=== PATIENT | female | born 1955 | race American Indian/Alaskan Native ===

== ENCOUNTER 2020-09-01 20:57 | Inpatient (IN) | payer MEDICAID, OTHER ==
[2020-09-01 22:03] LABS: Hematocrit 25.6 % (30.3-42.9); Hemoglobin 7.9 gm/dl (10.1-14.3); Mean Corpuscular HGB Conc 31 % (30-34); Mean Corpuscular Volume 75 fl (79-97); Platelet Count 113 K/mm3 (140-440); Red Blood Count 3.42 M/mm3 (3.65-5.03)
--- NOTE | 2020-09-01 22:04 | Emergency Department Report ---
ED N/V/D HPI - General Chief complaint: Nausea/Vomiting/Diarrhea Stated complaint: WEAKNESS DIARRHEA Time Seen by Provider: 09/01/20 21:51 Source: patient Mode of arrival: Stretcher Limitations: Physical Limitation - History of Present Illness Initial comments: 64-year-old female presents to the hospital complaints of diarrhea for 3 to 4 days. She apparently has had several episodes of hypoglycemia today and EMS came to the home 4 times a day for low glucose. She was given D50 then refused to come to the hospital. Patient complains of swelling to lower legs x1 week, diarrhea for 3 to 4 days, and some mild shortness of breath. She received horacio matthew positive for Covid during recent [facility] admission and complains of some mild shortness of breath. No reports of fever or abdominal pain. Patient presents this evening with a normal glucose but she is hypothermic. Glucose was in the 80s upon EMS arrival and she did not receive any D50 prior to transport this evening. Patient denies currently being on antibiotics. Patient presents to the hospital recent discharge paperwork from [facility]. She was admitted on August 24 with diagnosis of symptomatic anemia, anemia secondary to acute blood loss, atherosclerosis PVD with ulceration, type 2 diabetes, and acute kidney injury. Initial hemoglobin was 4.5/hematocrit 15. At that time patient also complained of abdominal pain and swelling to bilateral legs. Patient had admission BUN/creatinine of 46 and 2.26 with a potassium of 5.7 bicarb of 14, BNP 4205. Abdominal series with chest x-ray was positive for prominent interstitial opacities reflect edema versus pneumonitis with a small right pleural effusion and nonobstructive bowel gas pattern without free air. Is also noted on the medical record the patient was Covid positive and was noted to have gram-positive cocci in blood and also had echocardiogram complete with and without contrast during her admission. Only admission HPI and nurse handoff to report from [facility] available for review. Discharge summary is not available. - Related Data Home Medications Medication Instructions Recorded Confirmed Last Taken Aspirin [[place] Aspirin] 81 mg PO DAILY 02/14/14 02/22/14 02/14/14 11:00 Ferrous Sulfate [Feosol 325mg] 325 mg PO DAILY 02/14/14 02/22/14 02/14/14 11:00 Sertraline [Zoloft] 50 mg PO DAILY 02/14/14 02/22/14 02/14/14 11:00 amLODIPine 5 mg PO DAILY 02/14/14 02/22/14 02/14/14 11:00 hydroCHLOROthiazide 25 mg PO DAILY 02/14/14 02/22/14 02/14/14 11:00 [Hydrochlorothiazide] lisinopriL [Zestril TAB] 10 mg PO DAILY 02/14/14 02/22/14 02/14/14 11:00 Insulin NPH Hum/Reg Insulin Hm 100 units SQ BID 02/22/14 02/23/14 Unknown [Humulin 70-30 Vial] Insulin Regular, Human [HumuLIN R] 7 unit SQ AC 02/22/14 02/23/14 Unknown Allergies Allergy/AdvReac Type Severity Reaction Status Date / Time No Known Allergies Allergy Unverified 02/14/14 19:23 ED Review of Systems ROS: Stated complaint: WEAKNESS DIARRHEA Other details as noted in HPI Comment: All other systems reviewed and negative ED Past Medical Hx - Past Medical History Previous Medical History?: Yes Hx Hypertension: Yes (date unknown) Hx Congestive Heart Failure: No Hx Diabetes: Yes Hx Renal Disease: No Hx Asthma: No Hx COPD: No - Surgical History Past Surgical History?: Yes Additional Surgical History: bilateral BKA - Social History Smoking Status: Current Every Day Smoker Substance Use Type: None - Medications Home Medications: Home Medications Medication Instructions Recorded Confirmed Last Taken Type Aspirin [[place] Aspirin] 81 mg PO DAILY 02/14/14 02/22/14 02/14/14 11:00 History Ferrous Sulfate [Feosol 325mg] 325 mg PO DAILY 02/14/14 02/22/14 02/14/14 11:00 History Sertraline [Zoloft] 50 mg PO DAILY 02/14/14 02/22/14 02/14/14 11:00 History amLODIPine 5 mg PO DAILY 02/14/14 02/22/14 02/14/14 11:00 History hydroCHLOROthiazide 25 mg PO DAILY 02/14/14 02/22/14 02/14/14 11:00 History [Hydrochlorothiazide] lisinopriL [Zestril TAB] 10 mg PO DAILY 02/14/14 02/22/14 02/14/14 11:00 History Insulin NPH Hum/Reg Insulin Hm 100 units SQ BID 02/22/14 02/23/14 Unknown History [Humulin 70-30 Vial] Insulin Regular, Human [HumuLIN R] 7 unit SQ AC 02/22/14 02/23/14 Unknown History ED Physical Exam - General Limitations: Physical Limitation - Other Other exam information: General: No acute distress Head: Atraumatic Eyes: normal appearance ENT: Moist mucous membranes Neck: Normal appearance, no midline tenderness Chest: Clear to auscultation bilaterally, patient is able to lie flat in the bed without shortness of CV: Regular rate and rhythm Abdomen: Soft, normal bowel sounds, nontender, nondistended, no rebound or guarding Back: Normal inspection Extremity: Bilateral BKA Neuro: Alert O x 3, no facial asymmetry, speech clear, no gross motor sensory deficit Psych: Appropriate behavior ED Course Vital Signs 09/01/20 09/01/20 09/01/20 21:20 21:26 21:28 Temperature Pulse Rate 51 L 51 L Respiratory 17 16 Rate Blood Pressure 84/51 84/51 Blood Pressure 121/56 [Left] O2 Sat by Pulse 96 Oximetry 09/01/20 09/01/20 09/01/20 21:30 21:36 21:37 Temperature 92.8 F L Pulse Rate 51 L 52 L Respiratory 12 17 Rate Blood Pressure 121/56 69/39 Blood Pressure [Left] O2 Sat by Pulse 95 96 Oximetry 09/01/20 09/01/20 09/01/20 21:40 21:46 21:50 Temperature Pulse Rate 51 L 48 L 48 L Respiratory 11 L 23 26 H Rate Blood Pressure 69/39 69/39 69/39 Blood Pressure [Left] O2 Sat by Pulse 94 97 97 Oximetry 09/01/20 09/01/20 09/01/20 21:56 22:00 22:06 Temperature Pulse Rate 48 L 48 L 50 L Respiratory 31 H 22 16 Rate Blood Pressure 74/42 Blood Pressure [Left] O2 Sat by Pulse 98 98 97 Oximetry 09/01/20 09/01/20 09/01/20 22:10 22:16 22:30 Temperature Pulse Rate 48 L 48 L 46 L Respiratory 12 29 H 27 H Rate Blood Pressure 46/25 110/61 122/60 Blood Pressure [Left] O2 Sat by Pulse 95 96 95 Oximetry 09/01/20 09/01/20 09/01/20 22:31 22:46 23:00 Temperature 92.8 F L Pulse Rate 46 L 46 L Respiratory 27 H 27 H Rate Blood Pressure 93/49 93/49 Blood Pressure [Left] O2 Sat by Pulse 96 96 Oximetry 09/01/20 09/01/20 09/01/20 23:15 23:30 23:46 Temperature Pulse Rate 47 L 49 L 47 L Respiratory 30 H 17 28 H Rate Blood Pressure 104/51 93/49 53/30 Blood Pressure [Left] O2 Sat by Pulse 95 95 97 Oximetry 09/02/20 09/02/20 09/02/20 00:00 00:16 00:25 Temperature 93.2 F L Pulse Rate 47 L 48 L Respiratory 24 13 Rate Blood Pressure 53/30 53/30 Blood Pressure [Left] O2 Sat by Pulse 97 95 Oximetry 09/02/20 09/02/20 09/02/20 00:27 00:30 00:45 Temperature Pulse Rate 48 L 48 L 45 L Respiratory 16 13 12 Rate Blood Pressure 116/61 115/57 Blood Pressure 116/61 [Left] O2 Sat by Pulse 97 96 94 Oximetry 09/02/20 09/02/20 09/02/20 01:00 01:16 01:30 Temperature Pulse Rate 45 L 47 L 47 L Respiratory 24 27 H 25 H Rate Blood Pressure 115/57 118/59 118/59 Blood Pressure [Left] O2 Sat by Pulse 94 95 100 Oximetry 09/02/20 09/02/20 09/02/20 01:46 02:00 02:16 Temperature Pulse Rate 46 L 49 L 50 L Respiratory 12 25 H 25 H Rate Blood Pressure 79/49 79/49 123/53 Blood Pressure [Left] O2 Sat by Pulse 97 98 94 Oximetry 09/02/20 09/02/20 09/02/20 02:30 02:45 03:00 Temperature Pulse Rate 48 L 50 L 51 L Respiratory 27 H 12 11 L Rate Blood Pressure 130/43 122/67 122/67 Blood Pressure [Left] O2 Sat by Pulse 98 97 95 Oximetry 09/02/20 09/02/20 09/02/20 03:16 03:30 03:46 Temperature Pulse Rate 53 L 53 L 52 L Respiratory 27 H 28 H 29 H Rate Blood Pressure 123/70 123/70 123/66 Blood Pressure [Left] O2 Sat by Pulse 97 95 Oximetry 09/02/20 09/02/20 03:47 05:53 Temperature 94.8 F L Pulse Rate Respiratory 16 Rate Blood Pressure Blood Pressure [Left] O2 Sat by Pulse Oximetry - Reevaluation(s) Reevaluation #1: 09/02/20 00:31 I informed Nurse to recheck low blood pressure readings for accuracy prior to adding them to the medical record since they are consistently documented as significantly low then upon repeat, blood pressure is normal - EJ/Peripheral Line Neck R Time Out Performed: Yes Indications: nurses unable to establis Skin Cleansed in Sterile Fashion: Yes Size: 18 Dressing Placed: Tegaderm, tape Patient Tolerated Procedure: well, no complications ED Medical Decision Making - Lab Data Result diagrams: 09/01/20 21:40 09/01/20 21:55 Lab Results 09/01/20 09/01/20 09/01/20 Range/Units 21:40 21:40 21:55 WBC 6.9 (4.5-11.0) K/mm3 RBC 3.42 L (3.65-5.03) M/mm3 Hgb 7.9 L (10.1-14.3) gm/dl Hct 25.6 L (30.3-42.9) % MCV 75 L (79-97) fl MCH 23 L (28-32) pg MCHC 31 (30-34) % RDW 35.7 H (13.2-15.2) % Plt Count 113 L (140-440) K/mm3 Add Manual Diff Complete Total Counted 100 Seg Neuts % (Manual) 92.0 H (40.0-70.0) % Band Neutrophils % 0 % Lymphocytes % (Manual) 5.0 L (13.4-35.0) % Reactive Lymphs % (Man) 0 % Monocytes % (Manual) 3.0 (0.0-7.3) % Eosinophils % (Manual) 0 (0.0-4.3) % Basophils % (Manual) 0 (0.0-1.8) % Metamyelocytes % 0 % Myelocytes % 0 % Promyelocytes % 0 % Blast Cells % 0 % Nucleated RBC % Not Reportable Seg Neutrophils # Man 6.3 (1.8-7.7) K/mm3 Band Neutrophils # 0.0 K/mm3 Lymphocytes # (Manual) 0.3 L (1.2-5.4) K/mm3 Abs React Lymphs (Man) 0.0 K/mm3 Monocytes # (Manual) 0.2 (0.0-0.8) K/mm3 Eosinophils # (Manual) 0.0 (0.0-0.4) K/mm3 Basophils # (Manual) 0.0 (0.0-0.1) K/mm3 Metamyelocytes # 0.0 K/mm3 Myelocytes # 0.0 K/mm3 Promyelocytes # 0.0 K/mm3 Blast Cells # 0.0 K/mm3 WBC Morphology Not Reportable Hypersegmented Neuts Not Reportable Hyposegmented Neuts Not Reportable Hypogranular Neuts Not Reportable Smudge Cells Not Reportable Toxic Granulation Not Reportable Toxic Vacuolation Not Reportable Dohle Bodies Not Reportable Pelger-Huet Anomaly Not Reportable Ignacia Rods Not Reportable Platelet Estimate Consistent w auto Clumped Platelets Not Reportable Plt Clumps, EDTA Not Reportable Large Platelets Not Reportable Giant Platelets Not Reportable Platelet Satelliting Not Reportable Plt Morphology Comment Not Reportable RBC Morphology Not Reportable Dimorphic RBCs Not Reportable Polychromasia Not Reportable Hypochromasia 1+ Poikilocytosis Not Reportable Anisocytosis 2+ Microcytosis Not Reportable Macrocytosis Not Reportable Spherocytes Not Reportable Pappenheimer Bodies Not Reportable Sickle Cells Not Reportable Target Cells Rare Tear Drop Cells Few Ovalocytes Not Reportable Helmet Cells Not Reportable [place] Bodies Not Reportable Leonardo Rings Not Reportable Jackson Cells Not Reportable Bite Cells Not Reportable Crenated Cell Not Reportable Elliptocytes Few Acanthocytes (Spur) Not Reportable Rouleaux Not Reportable Hemoglobin C Crystals Not Reportable Schistocytes Not Reportable Malaria parasites Not Reportable Molina Bodies Not Reportable Hem Pathologist Commnt No D-Dimer 1076.18 H (0-234) ng/mlDDU Sodium 144 (137-145) mmol/L Potassium 5.1 H (3.6-5.0) mmol/L Chloride 117.5 H (98-107) mmol/L Carbon Dioxide 12 L (22-30) mmol/L Anion Gap 20 mmol/L BUN 51 H (7-17) mg/dL Creatinine 2.1 H (0.6-1.2) mg/dL Estimated GFR 29 ml/min BUN/Creatinine Ratio 24 % Glucose 69 (65-100) mg/dL POC Glucose (70-105) mg/dL Lactic Acid (0.7-2.0) mmol/L Calcium 7.8 L (8.4-10.2) mg/dL Ferritin (10.0-200.0) ng/mL Total Bilirubin 0.20 (0.1-1.2) mg/dL AST 59 H (5-40) units/L ALT 28 (7-56) units/L Alkaline Phosphatase 242 H (35-129) units/L Lactate Dehydrogenase (91-180) units/L C-Reactive Protein (0.00-1.30) mg/dL NT-Pro-B Natriuret Pep (0-900) pg/mL Total Protein 5.3 L (6.3-8.2) g/dL Albumin 2.5 L (3.9-5) g/dL Albumin/Globulin Ratio 0.9 % 09/01/20 09/01/20 09/01/20 Range/Units 21:55 21:55 21:55 WBC (4.5-11.0) K/mm3 RBC (3.65-5.03) M/mm3 Hgb (10.1-14.3) gm/dl Hct (30.3-42.9) % MCV (79-97) fl MCH (28-32) pg MCHC (30-34) % RDW (13.2-15.2) % Plt Count (140-440) K/mm3 Add Manual Diff Total Counted Seg Neuts % (Manual) (40.0-70.0) % Band Neutrophils % % Lymphocytes % (Manual) (13.4-35.0) % Reactive Lymphs % (Man) % Monocytes % (Manual) (0.0-7.3) % Eosinophils % (Manual) (0.0-4.3) % Basophils % (Manual) (0.0-1.8) % Metamyelocytes % % Myelocytes % % Promyelocytes % % Blast Cells % % Nucleated RBC % Seg Neutrophils # Man (1.8-7.7) K/mm3 Band Neutrophils # K/mm3 Lymphocytes # (Manual) (1.2-5.4) K/mm3 Abs React Lymphs (Man) K/mm3 Monocytes # (Manual) (0.0-0.8) K/mm3 Eosinophils # (Manual) (0.0-0.4) K/mm3 Basophils # (Manual) (0.0-0.1) K/mm3 Metamyelocytes # K/mm3 Myelocytes # K/mm3 Promyelocytes # K/mm3 Blast Cells # K/mm3 WBC Morphology Hypersegmented Neuts Hyposegmented Neuts Hypogranular Neuts Smudge Cells Toxic Granulation Toxic Vacuolation Dohle Bodies Pelger-Huet Anomaly Ignacia Rods Platelet Estimate Clumped Platelets Plt Clumps, EDTA Large Platelets Giant Platelets Platelet Satelliting Plt Morphology Comment RBC Morphology Dimorphic RBCs Polychromasia Hypochromasia Poikilocytosis Anisocytosis Microcytosis Macrocytosis Spherocytes Pappenheimer Bodies Sickle Cells Target Cells Tear Drop Cells Ovalocytes Helmet Cells [place] Bodies Leonardo Rings Flora Cells Bite Cells Crenated Cell Elliptocytes Acanthocytes (Spur) Rouleaux Hemoglobin C Crystals Schistocytes Malaria parasites Molina Bodies Hem Pathologist Commnt D-Dimer (0-234) ng/mlDDU Sodium (137-145) mmol/L Potassium (3.6-5.0) mmol/L Chloride (98-107) mmol/L Carbon Dioxide (22-30) mmol/L Anion Gap mmol/L BUN (7-17) mg/dL Creatinine (0.6-1.2) mg/dL Estimated GFR ml/min BUN/Creatinine Ratio % Glucose 69 (65-100) mg/dL POC Glucose (70-105) mg/dL Lactic Acid (0.7-2.0) mmol/L Calcium (8.4-10.2) mg/dL Ferritin 313.5 H (10.0-200.0) ng/mL Total Bilirubin (0.1-1.2) mg/dL AST (5-40) units/L ALT (7-56) units/L Alkaline Phosphatase (35-129) units/L Lactate Dehydrogenase 435 H (91-180) units/L C-Reactive Protein 2.30 H (0.00-1.30) mg/dL NT-Pro-B Natriuret Pep 56437 H (0-900) pg/mL Total Protein (6.3-8.2) g/dL Albumin (3.9-5) g/dL Albumin/Globulin Ratio % 09/01/20 09/01/20 Range/Units 22:12 23:27 WBC (4.5-11.0) K/mm3 RBC (3.65-5.03) M/mm3 Hgb (10.1-14.3) gm/dl Hct (30.3-42.9) % MCV (79-97) fl MCH (28-32) pg MCHC (30-34) % RDW (13.2-15.2) % Plt Count (140-440) K/mm3 Add Manual Diff Total Counted Seg Neuts % (Manual) (40.0-70.0) % Band Neutrophils % % Lymphocytes % (Manual) (13.4-35.0) % Reactive Lymphs % (Man) % Monocytes % (Manual) (0.0-7.3) % Eosinophils % (Manual) (0.0-4.3) % Basophils % (Manual) (0.0-1.8) % Metamyelocytes % % Myelocytes % % Promyelocytes % % Blast Cells % % Nucleated RBC % Seg Neutrophils # Man (1.8-7.7) K/mm3 Band Neutrophils # K/mm3 Lymphocytes # (Manual) (1.2-5.4) K/mm3 Abs React Lymphs (Man) K/mm3 Monocytes # (Manual) (0.0-0.8) K/mm3 Eosinophils # (Manual) (0.0-0.4) K/mm3 Basophils # (Manual) (0.0-0.1) K/mm3 Metamyelocytes # K/mm3 Myelocytes # K/mm3 Promyelocytes # K/mm3 Blast Cells # K/mm3 WBC Morphology Hypersegmented Neuts Hyposegmented Neuts Hypogranular Neuts Smudge Cells Toxic Granulation Toxic Vacuolation Dohle Bodies Pelger-Huet Anomaly Ignacia Rods Platelet Estimate Clumped Platelets Plt Clumps, EDTA Large Platelets Giant Platelets Platelet Satelliting Plt Morphology Comment RBC Morphology Dimorphic RBCs Polychromasia Hypochromasia Poikilocytosis Anisocytosis Microcytosis Macrocytosis Spherocytes Pappenheimer Bodies Sickle Cells Target Cells Tear Drop Cells Ovalocytes Helmet Cells [place] Bodies Leonardo Rings Jackson Cells Bite Cells Crenated Cell Elliptocytes Acanthocytes (Spur) Rouleaux Hemoglobin C Crystals Schistocytes Malaria parasites Molina Bodies Hem Pathologist Commnt D-Dimer (0-234) ng/mlDDU Sodium (137-145) mmol/L Potassium (3.6-5.0) mmol/L Chloride (98-107) mmol/L Carbon Dioxide (22-30) mmol/L Anion Gap mmol/L BUN (7-17) mg/dL Creatinine (0.6-1.2) mg/dL Estimated GFR ml/min BUN/Creatinine Ratio % Glucose (65-100) mg/dL POC Glucose 82 (70-105) mg/dL Lactic Acid 1.30 (0.7-2.0) mmol/L Calcium (8.4-10.2) mg/dL Ferritin (10.0-200.0) ng/mL Total Bilirubin (0.1-1.2) mg/dL AST (5-40) units/L ALT (7-56) units/L Alkaline Phosphatase (35-129) units/L Lactate Dehydrogenase (91-180) units/L C-Reactive Protein (0.00-1.30) mg/dL NT-Pro-B Natriuret Pep (0-900) pg/mL Total Protein (6.3-8.2) g/dL Albumin (3.9-5) g/dL Albumin/Globulin Ratio % - Radiology Data Radiology results: report reviewed CHEST 1 VIEW INDICATION / CLINICAL INFORMATION: sob, covid positive. FINDINGS: SUPPORT DEVICES: None. HEART / MEDIASTINUM: Cardiomegaly. LUNGS / PLEURA: Extensive bilateral airspace pneumonia especially within the right lower lung. Suspect small right pleural effusion. - Medical Decision Making Patient presents to the hospital with complaints of diarrhea and recurrent hypoglycemia today. EMS came to the home x4 and administered D50 but patient refused transport until this evening. She presents with initial glucose in the 80s but is hypothermic. Patient documented some significantly low blood pressure readings however when repeated without any intervention they were normal with a MAP greater than 65. EJ was placed due to difficulty achieving peripheral line by RN after multiple attempts. Every 1 hour blood glucose checks requested. 30 mL/kg normal saline bolus ordered. Once again chest x-ray reveals bilateral opacities which seems consistent with coronavirus pneumonia as well as previous x-ray as per [place] medical record paperwork. Patient however, will be treated with Decadron 6 mg IV and antibiotics for healthcare associated pneumonia pending ID consult. Patient denies currently being on antibiotics as an outpatient. She did have diarrhea while in the ED. patient does have renal insufficiency with elevated BUN to creatinine ratio but creatinine seems fairly stable compared to values provided from 08/24. I am unsure of patient's creatinine level prior to discharge from [facility]. Patient has been placed on respiratory isolation due to Covid. Lactic acid is normal at this. I disposition urine collection and EKG are ordered but pending Case d/w Dr Meza for admission Critical Care Time: Yes Critical care time in (mins) excluding proc time.: 35 Critical care attestation.: If time is entered above; I have spent that time in minutes in the direct care of this critically ill patient, excluding procedure time. ED Disposition Clinical Impression: Bilateral pneumonia, Type 2 diabetes mellitus, Hypoglycemia, COVID-19, Acute diarrhea, Anemia, Renal insufficiency Sepsis Qualifiers: Acute renal failure type: with acute tubular necrosis Hypothermia Qualifiers: Encounter type: initial encounter Qualified Code(s): T68.XXXA - Hypothermia, initial encounter Disposition: OP ADMIT IP TO THIS HOSP Is pt being admited?: Yes Condition: Stable Time of Disposition: 00:14 (decsion to admit)
[2020-09-01 22:06] LABS: Red Cell Distribution Width 35.7 % (13.2-15.2)
[2020-09-01 22:19] LABS: Albumin 2.5 g/dL (3.9-5); Calcium 7.8 mg/dL (8.4-10.2)
[2020-09-01] MEDS ORDERED: SODIUM CHLORIDE 0.9% 1000 ML IV SOLN IV ONE (22:32)
[2020-09-01 22:39] LABS: Basophils % (Manual) 0 % (0.0-1.8); Eosinophils % (Manual) 0 % (0.0-4.3); Total Cells Counted 100
[2020-09-01 22:40] LABS: Hypochromasia 1+; Platelet Estimate Consistent w Auto
[2020-09-01 22:41] LABS: Anisocytosis 2+; Target Cells Rare; Tear Drop Cells Few
[2020-09-01 22:51] LABS: C-Reactive Protein 2.3 mg/dL (0.00-1.30)
--- NOTE | 2020-09-01 23:08 | XRay Report ---
CHEST 1 VIEW INDICATION / CLINICAL INFORMATION: sob, covid positive. FINDINGS: SUPPORT DEVICES: None. HEART / MEDIASTINUM: Cardiomegaly. LUNGS / PLEURA: Extensive bilateral airspace pneumonia especially within the right lower lung. Suspec t small right pleural effusion. Signer Name: Omari Simental MD Signed: 09/01/2020 11:03 PM Workstation Name: [id number]
[2020-09-01] MEDS ORDERED: dexAMETHasone 4 MG/ML VIAL IV ONE (23:19)
[2020-09-01] MEDS ORDERED: CEFEPIME/NS 2 GM/100 ML 2 GM/100 ML BAG IV SCH (23:45)
[2020-09-01] MEDS ORDERED: VANCOMYCIN PHARMACY TO DOSE IV SCH (23:45)
[2020-09-02] MEDS ORDERED: ACETAMINOPHEN 325 MG TAB PO PRN ×2 (00:30→01:00)
[2020-09-02] MEDS ORDERED: HYDROmorphone 1 MG/1 ML INJ IV PRN ×2 (00:30→01:00)
--- NOTE | 2020-09-02 00:39 | History and Physical Report ---
History of Present Illness Chief complaint: I do not feel well History of present illness: 64 YO Female with HTN, DM, Anemia, PVD, Nicotine Dependence, positive coronavirus test on yesterday presents to ED for evaluation. Patient states that she has experienced subjective fever, generalized weakness, body aches, shortness of breath, nausea, multiple loose stools, lower extremity edema over the past 1 week with progressively worsening symptoms over the past 3 days. EMS notified and upon arrival the patient was found to be in distress and subsequently transported to [facility] for further care and evaluation of the afo rementioned symptoms. Patient seen and evaluated in the emergency department. Lab and imaging studies reviewed. Patient found to be hypotensive with a systolic blood pressure ranging from 53-94. Patient was also hypothermic with a body temperature of 93.3 F. Patient meets criteria for sepsis protocol and found to have bilateral pneumonia, metabolic acidosis, acute kidney injury. Patient admitted to telemetry due to increased risk of multisystem decompensation. Patient initiated on coronavirus protocol. Coronavirus PCR has been ordered and is pending at time of admission. Patient remained hypotensive in spite of IV fluid resuscitation therapy. Patient subsequently upgraded to IMCU. Patient denies chills, chest pain, palpitations, skin rash, recent ill contacts. Prior admission on 02/14/2014 reviewed. All medication listed at time of admission has been reconciled. Advanced care planning conducted in ED. Past History Past Medical History: anemia, diabetes, hypertension, PVD Past Surgical History: Other (Bilateral BKA) Social history: single. denies: smoking, alcohol abuse Family history: hypertension Medications and Allergies Allergies Allergy/AdvReac Type Severity Reaction Status Date / Time No Known Allergies Allergy Unverified 02/14/14 19:23 Home Medications Medication Instructions Recorded Confirmed Last Taken Type Aspirin [[place] Aspirin] 81 mg PO DAILY 02/14/14 02/22/14 02/14/14 11:00 History Ferrous Sulfate [Feosol 325mg] 325 mg PO DAILY 02/14/14 02/22/14 02/14/14 11:00 History Sertraline [Zoloft] 50 mg PO DAILY 02/14/14 02/22/14 02/14/14 11:00 History amLODIPine 5 mg PO DAILY 02/14/14 02/22/14 02/14/14 11:00 History hydroCHLOROthiazide 25 mg PO DAILY 02/14/14 02/22/14 02/14/14 11:00 History [Hydrochlorothiazide] lisinopriL [Zestril TAB] 10 mg PO DAILY 02/14/14 02/22/14 02/14/14 11:00 History Insulin NPH Hum/Reg Insulin Hm 100 units SQ BID 02/22/14 02/23/14 Unknown History [Humulin 70-30 Vial] Insulin Regular, Human [HumuLIN R] 7 unit SQ AC 02/22/14 02/23/14 Unknown History Active Meds: Active Medications Vancomycin HCl 1,750 mg/ (Sodium Chloride) 535 mls @ 333 mls/hr IV ONCE ONE; Protocol Stop: 09/02/20 02:36 Cefepime HCl (Cefepime/Ns 2 Gm/100 Ml) 2 gm in 100 mls @ 200 mls/hr IV Q24HR [facility]; Protocol Last Admin: 09/01/20 23:53 Dose: 200 mls/hr Documented by: Review of Systems Constitutional: fever, weakness, malaise, no weight loss Ears, nose, mouth and throat: no ear pain, no ear discharge, no tinnitis, no decreased hearing Breasts: no change in shape, no swelling, no mass Cardiovascular: no chest pain, no orthopnea, no palpitations, no rapid/irregular heart beat Respiratory: no cough, no cough with sputum, no excessive sputum, no hemoptysis Gastrointestinal: nausea, no abdominal pain Genitourinary Female: no pelvic pain, no flank pain, no dysuria, no urinary frequency, no urgency Rectal: no pain, no incontinence, no bleeding Musculoskeletal: no neck stiffness, no neck pain, no shooting arm pain, no arm numbness/tingling Integumentary: no rash, no pruritis, no redness, no sores, no wounds Neurological: no transient paralysis, no paralysis, no weakness, no parathesias, no numbness Psychiatric: no anxiety, no memory loss, no change in sleep habits, no sleep disturbances, no insomnia, no hypersomnia Endocrine: no cold intolerance, no heat intolerance, no polyphagia, no excessive thirst, no polydipsia Hematologic/Lymphatic: no easy bruising, no easy bleeding Allergic/Immunologic: no urticaria, no allergic rhinitis, no wheezing Exam - Constitutional Vitals: Temp Pulse Resp BP Pulse Ox 93.2 F L 48 L 16 116/61 97 09/02/20 00:25 09/02/20 00:27 09/02/20 00:27 09/02/20 00:27 09/02/20 00:27 General appearance: Present: mild distress - EENT Eyes: Present: PERRL ENT: hearing intact, clear oral mucosa - Neck Neck: Present: supple, normal ROM - Respiratory Respiratory effort: normal Respiratory: bilateral: CTA - Cardiovascular Rhythm: other (Hypotensive) Heart Sounds: Present: S1 & S2. Absent: rub, click - Extremities Extremities: pulses symmetrical, No edema Peripheral Pulses: abnormal (Capillary refill greater than 3.5 seconds) - Abdominal General gastrointestinal: Present: soft, non-tender, non-distended, normal bowel sounds Female genitourinary: Present: normal - Integumentary Integumentary: Present: dry, clammy, decreased turgor - Musculoskeletal Musculoskeletal: generalized weakness - Psychiatric Psychiatric: appropriate mood/affect, intact judgment & insight - Neurologic Neurologic: CNII-XII intact, moves all extremities Results - Labs CBC & Chem 7: 09/01/20 21:40 09/01/20 21:55 Labs: Abnormal lab results 09/01/20 09/01/20 09/01/20 Range/Units 21:40 21:40 21:55 RBC 3.42 L (3.65-5.03) M/mm3 Hgb 7.9 L (10.1-14.3) gm/dl Hct 25.6 L (30.3-42.9) % MCV 75 L (79-97) fl MCH 23 L (28-32) pg RDW 35.7 H (13.2-15.2) % Plt Count 113 L (140-440) K/mm3 Seg Neuts % (Manual) 92.0 H (40.0-70.0) % Lymphocytes % (Manual) 5.0 L (13.4-35.0) % Lymphocytes # (Manual) 0.3 L (1.2-5.4) K/mm3 D-Dimer 1076.18 H (0-234) ng/mlDDU Potassium 5.1 H (3.6-5.0) mmol/L Chloride 117.5 H (98-107) mmol/L Carbon Dioxide 12 L (22-30) mmol/L BUN 51 H (7-17) mg/dL Creatinine 2.1 H (0.6-1.2) mg/dL Calcium 7.8 L (8.4-10.2) mg/dL Ferritin (10.0-200.0) ng/mL AST 59 H (5-40) units/L Alkaline Phosphatase 242 H (35-129) units/L Lactate Dehydrogenase (91-180) units/L C-Reactive Protein (0.00-1.30) mg/dL NT-Pro-B Natriuret Pep (0-900) pg/mL Total Protein 5.3 L (6.3-8.2) g/dL Albumin 2.5 L (3.9-5) g/dL 09/01/20 09/01/20 09/01/20 Range/Units 21:55 21:55 21:55 RBC (3.65-5.03) M/mm3 Hgb (10.1-14.3) gm/dl Hct (30.3-42.9) % MCV (79-97) fl MCH (28-32) pg RDW (13.2-15.2) % Plt Count (140-440) K/mm3 Seg Neuts % (Manual) (40.0-70.0) % Lymphocytes % (Manual) (13.4-35.0) % Lymphocytes # (Manual) (1.2-5.4) K/mm3 D-Dimer (0-234) ng/mlDDU Potassium (3.6-5.0) mmol/L Chloride (98-107) mmol/L Carbon Dioxide (22-30) mmol/L BUN (7-17) mg/dL Creatinine (0.6-1.2) mg/dL Calcium (8.4-10.2) mg/dL Ferritin 313.5 H (10.0-200.0) ng/mL AST (5-40) units/L Alkaline Phosphatase (35-129) units/L Lactate Dehydrogenase 435 H (91-180) units/L C-Reactive Protein 2.30 H (0.00-1.30) mg/dL NT-Pro-B Natriuret Pep 75191 H (0-900) pg/mL Total Protein (6.3-8.2) g/dL Albumin (3.9-5) g/dL Assessment and Plan - Patient Problems (1) Sepsis Current Visit: Yes Status: Acute Qualifiers: Acute renal failure type: with acute tubular necrosis Plan to address problem: Sepsis protocol: Admit to IMCU, IV fluid resuscitation therapy, CBC, CMP, serial lactic acid level, monitor urine output every shift, IV antibiotic therapy, maintain mean arterial blood pressure greater than or equal to 65, blood culture, chest x-ray, urinalysis, (2) Bilateral pneumonia Current Visit: Yes Status: Acute Plan to address problem: Chest x-ray, IV antibiotic therapy, CBC, CMP, supplemental oxygen, pulse oximetry, supportive care. (3) Acute kidney injury (DIRK) with acute tubular necrosis (ATN) Current Visit: Yes Status: Acute Plan to address problem: BMP, monitor urine output every shift, IV fluid resuscitation therapy as clinically indicated, monitor fluid balance, repeat BMP in a.m. to monitor serum creatinine. (4) Hypothermia Current Visit: Yes Status: Acute Qualifiers: Encounter type: initial encounter Qualified Code(s): T68.XXXA - H ypothermia, initial encounter Plan to address problem: Supportive care, treat sepsis, warming blanket, (5) Diabetes Current Visit: Yes Status: Acute Plan to address problem: Sliding-scale insulin therapy, Accu-Chek, hypoglycemia protocol, consistent carbohydrate diet. (6) COVID-19 Current Visit: Yes Status: Acute Plan to address problem: Coronavirus protocol: Coronavirus PCR ordered and is pending at time of admission, contact precaution, isolation precautions, prone positioning while in bed, IV steroid therapy, IV antibiotic therapy. Supportive care. (7) Anemia Current Visit: Yes Status: Chronic Plan to address problem: Supportive care, hemoglobin currently above 7, (8) DVT prophylaxis Current Visit: No Status: Acute Plan to address problem: SCD to bilateral lower extremities while in bed, prophylactic anticoagulation. (9) Advance care planning Current Visit: Yes Status: Acute Plan to address problem: Disease education conducted, prognosis discussed, patient is full code, care plan discussed, patient knowledges understanding and agreement with care plan. +30 minutes. (10) Nicotine dependence Current Visit: Yes Status: Acute Qualifiers: Nicotine product type: cigarettes Substance use status: in withdrawal Qualified Code(s): F17.213 - Nicotine dependence, cigarettes, with withdrawal Plan to address problem: Supportive care, smoking cessation counseling, behavior change counseling, +15 minutes.
[2020-09-02] MEDS ORDERED: SODIUM CHLORIDE 0.9% 1000 ML IV SOLN IV ONE (01:00)
[2020-09-02] MEDS ORDERED: VANCOMYCIN 1,750 MG in SODIUM CHLORIDE 0.9% 500 ML 500 ML IV ONE (01:00)
[2020-09-02] MEDS ORDERED: SODIUM BICARB 8.4% 50 MEQ/50 ML SYRINGE IV ONE ×2 (01:22→02:37)
[2020-09-02 01:23] LABS: Free T4 (Free Thyroxine) 0.92 ng/dL (0.76-1.46)
[2020-09-02 04:00] LABS: Bacteria,Urine 2+ /HPF (Negative); Bilirubin,Urine NEG (Negative); Blood,Urine NEG (Negative); Color,Urine Amber (Yellow); Mucus,Urine FEW /HPF; Protein,Urine >500 mg/dL (Negative); RBC,Urine < 1.0 /HPF (0.0-6.0); Urobilinogen,Urine < 2.0 mg/dL (<2.0); WBC,Urine < 1.0 /HPF (0.0-6.0)
[2020-09-02] MEDS ORDERED: methylPREDNISolone Sod Succinate 40 MG/1 ML INJ ONE ×2 (06:23→17:05)
[2020-09-02] MEDS: methylPREDNISolone Sod Succinate 40 MG/1 ML INJ IV SCH ×3 (06:34→22:56)
[2020-09-02] MEDS ORDERED: DEXTROSE 50% IN WATER (25GM) 50 ML SYRINGE IV ONE ×2 (06:42→06:47)
[2020-09-02 08:53] LABS: Hematocrit 24.7 % (30.3-42.9); Hemoglobin 7.6 gm/dl (10.1-14.3); Mean Corpuscular HGB Conc 31 % (30-34); Mean Corpuscular Volume 74 fl (79-97); Red Blood Count 3.34 M/mm3 (3.65-5.03)
[2020-09-02 08:55] LABS: Red Cell Distribution Width 35.8 % (13.2-15.2)
[2020-09-02 09:06] LABS: Calcium 7.4 mg/dL (8.4-10.2)
--- NOTE | 2020-09-02 09:57 | Consultation ---
History of Present Illness - Reason for Consult Consult date: 09/02/20 COVID and diarrhea Requesting physician: SUNIL SEGUNDO - History of Present Illness 64 years old female with history of diabetes mellitus, hypertension, peripheral vascular disease status post bilateral BKA, chronic kidney disease, tobacco use, tested positive for COVID-19 outpatient the day before admission, admitted on 09/01/2020 due to a week history of cough, generalized weakness, body aches, s ubjective fever, shortness of breath, nausea, multiple diarrheic episodes. Symptoms became worse the last 3 days. Patient called 911 and EMS found the patient in respiratory distress. Of note, patient was admitted to [facility] from 08/23/2020 until 08/27/2020 secondary to symptomatic anemia. Initial hemoglobin was 4.5. Patient does have history of PGD with duodenitis and esophagitis. Patient refused blood transfusions. Patient refused further work-up for anemia. Patient was also found to be on DIRK on chronic kidney disease. Patient was found to have bilateral interstitial opacities versus pneumonitis. SARS-CoV-2 PCR was positive on 08/24/2020. Ferritin was normal. D-dimer was 2.4. Patient was not hypoxic so no treatment was given for COVID- 19. Blood cultures on 08/24/2020 were positive for coagulase-negative 1 out of 4, DM to be a contaminant. On arrival, temperature 92.8, HR 51, RR 17, O2 sat 96%, BP 84/51. Initial WBC 6.9. Hemoglobin 7.9. Platelets 113. D-dimer 1076. Ferritin 313. LDH 435. AST 59. CRP 2.3. Procalcitonin 0.1. proBNP 17,000. Blood cultures from 09/01/2020 no growth today. Chest x-ray shows extensive bilateral airspace disease. Patient is currently on room air. O2 sat has been over 94%. Review of Systems: reviewed ED and H&P notes. Limited due to PPE conservation strategy Past History Past Medical History: anemia, diabetes, hypertension, PVD Past Surgical History: Other (Bilateral BKA) Social history: single. denies: smoking, alcohol abuse Family history: hypertension Medications and Allergies Allergies Allergy/AdvReac Type Severity Reaction Status Date / Time No Known Allergies Allergy Unverified 02/14/14 19:23 Home Medications Medication Instructions Recorded Confirmed Last Taken Type Aspirin [[place] Aspirin] 81 mg PO DAILY 02/14/14 02/22/14 02/14/14 11:00 His tory Ferrous Sulfate [Feosol 325mg] 325 mg PO DAILY 02/14/14 02/22/14 02/14/14 11:00 History Sertraline [Zoloft] 50 mg PO DAILY 02/14/14 02/22/14 02/14/14 11:00 History amLODIPine 5 mg PO DAILY 02/14/14 02/22/14 02/14/14 11:00 History hydroCHLOROthiazide 25 mg PO DAILY 02/14/14 02/22/14 02/14/14 11:00 History [Hydrochlorothiazide] lisinopriL [Zestril TAB] 10 mg PO DAILY 02/14/14 02/22/14 02/14/14 11:00 History Insulin NPH Hum/Reg Insulin Hm 100 units SQ BID 02/22/14 02/23/14 Unknown History [Humulin 70-30 Vial] Insulin Regular, Human [HumuLIN R] 7 unit SQ AC 02/22/14 02/23/14 Unknown History Active Meds: Active Medications Acetaminophen (Tylenol) 650 mg PO Q6H PRN PRN Reason: Pain, Mild (1-3) Aspirin (Baby Aspirin) 81 mg PO DAILY [facility] Ferrous Sulfate (Feosol) 325 mg PO DAILY [facility] Heparin Sodium (Porcine) (Heparin) 5,000 unit SUB-Q Q12HR [facility] Hydromorphone HCl (Dilaudid) 0.25 mg IV Q4H PRN PRN Reason: Pain, Moderate (4-6) Ceftriaxone Sodium (Rocephin/Ns 2 Gm/100 Ml) 2 gm in 100 mls @ 200 mls/hr IV Q24HR [facility]; Protocol Azithromycin 500 mg/ Sodium (Chloride) 250 mls @ 250 mls/hr IV Q24HR [facility]; Protocol Methylprednisolone Sodium Succinate (Solu-Medrol) 40 mg IV Q8HR [facility] Last Admin: 09/02/20 06:34 Dose: 40 mg Documented by: Sertraline HCl (Zoloft) 50 mg PO DAILY [facility] Sodium Chloride (Sodium Chloride Flush Syringe 10 Ml) 10 ml IV BID [facility] Sodium Chloride (Sodium Chloride Flush Syringe 10 Ml) 10 ml IV PRN PRN PRN Reason: LINE FLUSH Physical Examination - Physical Exam Narrative exam: Physical Exam: reviewed ED and hospitalist notes, limited due to conservation of PPE and decrease risk of transmission. General appearance: limited due to conservation of PPE Eyes: limited due to conservation of PPE HENT: Atraumatic; limited due to conservation of PPE Lungs: limited due to conservation of PPE CV: limited due to conservation of PPE Abdomen: limited due to conservation of PPE Extremities: limited due to conservation of PPE Skin: limited due to conservation of PPE Psych: limited due to conservation of PPE Neuro: limited due to conservation of PPE - Constitutional Vitals: Vital Signs Temp Pulse Resp BP Pulse Ox 97.7 F 79 15 108/89 98 09/02/20 07:00 09/02/20 07:00 09/02/20 07:00 09/02/20 07:00 09/02/20 07:00 Temperature -Last 24 Hours Temperature 97.7 F Temperature 97.7 F Temperature 94.8 F Temperature 93.2 F Temperature 92.8 F Temperature 92.8 F Results - Labs CBC & Chem 7: 09/02/20 08:10 09/02/20 08:10 Labs: Abnormal lab results 09/01/20 09/01/20 09/01/20 Range/Units 21:40 21:40 21:55 RBC 3.42 L (3.65-5.03) M/mm3 Hgb 7.9 L (10.1-14.3) gm/dl Hct 25.6 L (30.3-42.9) % MCV 75 L (79-97) fl MCH 23 L (28-32) pg RDW 35.7 H (13.2-15.2) % Plt Count 113 L (140-440) K/mm3 Seg Neuts % (Manual) 92.0 H (40.0-70.0) % Lymphocytes % (Manual) 5.0 L (13.4-35.0) % Lymphocytes # (Manual) 0.3 L (1.2-5.4) K/mm3 D-Dimer 1076.18 H (0-234) ng/mlDDU Potassium 5.1 H (3.6-5.0) mmol/L Chloride 117.5 H (98-107) mmol/L Carbon Dioxide 12 L (22-30) mmol/L BUN 51 H (7-17) mg/dL Creatinine 2.1 H (0.6-1.2) mg/dL POC Glucose (70-105) mg/dL Lactic Acid (0.7-2.0) mmol/L Calcium 7.8 L (8.4-10.2) mg/dL Ferritin (10.0-200.0) ng/mL AST 59 H (5-40) units/L Alkaline Phosphatase 242 H (35-129) units/L Lactate Dehydrogenase (91-180) units/L C-Reactive Protein (0.00-1.30) mg/dL NT-Pro-B Natriuret Pep (0-900) pg/mL Total Protein 5.3 L (6.3-8.2) g/dL Albumin 2.5 L (3.9-5) g/dL 09/01/20 09/01/20 09/01/20 Range/Units 21:55 21:55 21:55 RBC (3.65-5.03) M/mm3 Hgb (10.1-14.3) gm/dl Hct (30.3-42.9) % MCV (79-97) fl MCH (28-32) pg RDW (13.2-15.2) % Plt Count (140-440) K/mm3 Seg Neuts % (Manual) (40.0-70.0) % Lymphocytes % (Manual) (13.4-35.0) % Lymphocytes # (Manual) (1.2-5.4) K/mm3 D-Dimer (0-234) ng/mlDDU Potassium (3.6-5.0) mmol/L Chloride (98-107) mmol/L Carbon Dioxide (22-30) mmol/L BUN (7-17) mg/dL Creatinine (0.6-1.2) mg/dL POC Glucose (70-105) mg/dL Lactic Acid (0.7-2.0) mmol/L Calcium (8.4-10.2) mg/dL Ferritin 313.5 H (10.0-200.0) ng/mL AST (5-40) units/L Alkaline Phosphatase (35-129) units/L Lactate Dehydrogenase 435 H (91-180) units/L C-Reactive Protein 2.30 H (0.00-1.30) mg/dL NT-Pro-B Natriuret Pep 48705 H (0-900) pg/mL Total Protein (6.3-8.2) g/dL Albumin (3.9-5) g/dL 09/02/20 09/02/20 09/02/20 Range/Units 03:12 05:46 06:50 RBC (3.65-5.03) M/mm3 Hgb (10.1-14.3) gm/dl Hct (30.3-42.9) % MCV (79-97) fl MCH (28-32) pg RDW (13.2-15.2) % Plt Count (140-440) K/mm3 Seg Neuts % (Manual) (40.0-70.0) % Lymphocytes % (Manual) (13.4-35.0) % Lymphocytes # (Manual) (1.2-5.4) K/mm3 D-Dimer (0-234) ng/mlDDU Potassium (3.6-5.0) mmol/L Chloride (98-107) mmol/L Carbon Dioxide (22-30) mmol/L BUN (7-17) mg/dL Creatinine (0.6-1.2) mg/dL POC Glucose 65 L 60 L (70-105) mg/dL Lactic Acid 0.60 L (0.7-2.0) mmol/L Calcium (8.4-10.2) mg/dL Ferritin (10.0-200.0) ng/mL AST (5-40) units/L Alkaline Phosphatase (35-129) units/L Lactate Dehydrogenase (91-180) units/L C-Reactive Protein (0.00-1.30) mg/dL NT-Pro-B Natriuret Pep (0-900) pg/mL Total Protein (6.3-8.2) g/dL Albumin (3.9-5) g/dL 09/02/20 09/02/20 09/02/20 Range/Units 07:35 08:10 08:10 RBC 3.34 L (3.65-5.03) M/mm3 Hgb 7.6 L (10.1-14.3) gm/dl Hct 24.7 L (30.3-42.9) % MCV 74 L (79-97) fl MCH 23 L (28-32) pg RDW 35.8 H (13.2-15.2) % Plt Count (140-440) K/mm3 Seg Neuts % (Manual) (40.0-70.0) % Lymphocytes % (Manual) (13.4-35.0) % Lymphocytes # (Manual) (1.2-5.4) K/mm3 D-Dimer (0-234) ng/mlDDU Potassium (3.6-5.0) mmol/L Chloride (98-107) mmol/L Carbon Dioxide (22-30) mmol/L BUN (7-17) mg/dL Creatinine (0.6-1.2) mg/dL POC Glucose 116 H (70-105) mg/dL Lactic Acid 0.60 L (0.7-2.0) mmol/L Calcium (8.4-10.2) mg/dL Ferritin (10.0-200.0) ng/mL AST (5-40) units/L Alkaline Phosphatase (35-129) units/L Lactate Dehydrogenase (91-180) units/L C-Reactive Protein (0.00-1.30) mg/dL NT-Pro-B Natriuret Pep (0-900) pg/mL Total Protein (6.3-8.2) g/dL Albumin (3.9-5) g/dL 09/02/20 Range/Units 08:10 RBC (3.65-5.03) M/mm3 Hgb (10.1-14.3) gm/dl Hct (30.3-42.9) % MCV (79-97) fl MCH (28-32) pg RDW (13.2-15.2) % Plt Count (140-440) K/mm3 Seg Neuts % (Manual) (40.0-70.0) % Lymphocytes % (Manual) (13.4-35.0) % Lymphocytes # (Manual) (1.2-5.4) K/mm3 D-Dimer (0-234) ng/mlDDU Potassium 5.2 H (3.6-5.0) mmol/L Chloride 120.1 H (98-107) mmol/L Carbon Dioxide 11 L (22-30) mmol/L BUN 51 H (7-17) mg/dL Creatinine 2.0 H (0.6-1.2) mg/dL POC Glucose (70-105) mg/dL Lactic Acid (0.7-2.0) mmol/L Calcium 7.4 L (8.4-10.2) mg/dL Ferritin (10.0-200.0) ng/mL AST (5-40) units/L Alkaline Phosphatase (35-129) units/L Lactate Dehydrogenase (91-180) units/L C-Reactive Protein (0.00-1.30) mg/dL NT-Pro-B Natriuret Pep (0-900) pg/mL Total Protein (6.3-8.2) g/dL Albumin (3.9-5) g/dL Assessment and Plan Cultures: Blood culture no growth today. SARS CoV2 PCR positive [facility] 08/24/2020. Assessment: 64 years old female with history of diabetes mellitus, hypertension, peripheral vascular disease status post bilateral BKA, chronic kidney disease, tobacco use, tested positive for COVID-19 outpatient the day before admission, admitted on 09/01/2020 due to a week history of cough, generalized weakness, body aches, subjective fever, shortness of breath, nausea, multiple diarrheic episodes, patient recently admitted to [facility] from 08/23/2020 until 08/27/2020 for symptomatic anemia, hemoglobin at 4.5, refused further work-up and tested positive for COVID-19, asymptomatic: #Severe sepsis: Present on admission with hypothermia, hypotension, likely due to bilateral pneumonia. #Severe COVID pneumonia: Patient tested positive at [facility] on 08/24/2020. Initial ferritin normal, D-dimer elevated 2.4. D-dimer here 08/10/1976. Ferritin slightly elevated 313. Chest x-ray shows extensive bilateral airspace disease. Patient is currently on room air. There may be a component of volume overload. Echocardiogram at [facility] EF 43%. BNP 70,000. Procalcitonin normal, hence I doubt bacterial component. #Elevated LFTs: from COVID #DIRK on CKD: from COVID #Acute thrombocytopenia: Platelets 08/27/2020 were 146. Likely due to COVID-19 infection. #Acute diarrhea: Multiple episodes. Likely associated to COVID-19 infection. Should rule out C. difficile given recent antibiotic exposure. Recommendations: -Patient started on Solu-Medrol in the ED, if not hypoxia ok to stop -No indication for Remdesivir as patient is not hypoxic -Monitor inflammatory markers - ferritin, Ddimer, CRP, LDH -Stop ceftriaxone and azithromycin -Start cefepime IV renally adjusted for now given severe sepsis -Check MRSA PCR -Continue anticoagulation per System Protocol -Obtain SARS CoV-2 IgG -Obtain stool for Cdiff test -Follow-up blood culture All laboratory, cultures and imaging were reviewed. Will follow Beba Parker MD Infectious Diseases Software Development Analyst [facility] ([facility] M [phone] O [phone]
[2020-09-02 10:00] LABS: Anisocytosis 3+; Basophils % (Manual) 0 % (0.0-1.8); Eosinophils % (Manual) 0 % (0.0-4.3); Total Cells Counted 100
[2020-09-02] MEDS ORDERED: cefTRIAXone/NS 2 GM/100 ML 2 GM/100 ML BAG IV SCH (10:00)
[2020-09-02] MEDS ORDERED: AZITHROMYCIN 500 MG in SODIUM CHLORIDE 0.9% 250ML 250 ML IV SCH (10:00)
[2020-09-02] MEDS ORDERED: HEPARIN 5,000 UNIT/1 ML VIAL SUB-Q SCH (10:00)
[2020-09-02 10:01] LABS: Hypochromasia 1+; Target Cells Rare
[2020-09-02 10:02] LABS: Dimorphic RBC Yes; Tear Drop Cells Few
[2020-09-02 10:03] LABS: Poikilocytosis Few
[2020-09-02 10:04] LABS: Platelet Estimate Consistent w Auto
[2020-09-02 10:14] LABS: Platelet Count 110 K/mm3 (140-440)
[2020-09-02] MEDS ORDERED: SERTRALINE 50 MG TAB ONE (10:21)
[2020-09-02] MEDS ORDERED: ASPIRIN 81 MG TAB CHEW ONE (10:21)
[2020-09-02] MEDS ORDERED: FERROUS SULFATE 325 MG TAB PO ONE (10:22)
[2020-09-02] MEDS ORDERED: HEPARIN 5,000 UNIT/1 ML VIAL ONE (10:22)
[2020-09-02] MEDS: SERTRALINE 50 MG TAB PO SCH (10:34)
[2020-09-02] MEDS: ASPIRIN 81 MG TAB CHEW PO SCH (10:34)
[2020-09-02] MEDS: FERROUS SULFATE 325 MG TAB PO SCH (10:35)
[2020-09-02] MEDS ORDERED: SODIUM BICARBONATE 50 MEQ in SODIUM CHLORIDE 0.9% 1000 ML 1,000 ML IV SCH (12:00)
[2020-09-02] MEDS ORDERED: HEPARIN 10,000 UNITS/10 ML VIAL IV ONE (12:52)
[2020-09-02] MEDS ORDERED: HEPARIN/ 0.45% NACL DRIP 25,000 UNIT/500 ML BAG IV SCH (13:00)
[2020-09-02] MEDS ORDERED: CEFEPIME/NS 2 GM/100 ML 2 GM/100 ML BAG IV ONE (13:09)
--- NOTE | 2020-09-02 13:21 | Vascular Lab Report ---
DUPLEX DOPPLER LOWER EXTREMITY VEINS, BILATERAL INDICATION: dvt. covid 19 pneumonia. hx of morbid obesity,diabetes,sepsis.. Patient has bilateral [id number]-uses amputations. TECHNIQUE: Duplex doppler imaging was performed through the veins of both lower extremities using venous valentine angelika and other maneuvers. COMPARISON: No relevant prior imaging study available. FINDINGS: Right Common femoral vein: Positive for acute DVT. Right Superficial femoral vein: Positive for acute DVT. Right Popliteal vein: Negative. Right Calf veins: Negative. Left Common femoral vein: Positive for acute DVT. Left Superficial femoral vein: Positive for acute DVT. Left Popliteal vein: Negative. Left Calf veins: Negative. Additional findings: None.. IMPRESSION: 1. Acute DVT bilaterally extending from each respective external iliac vein into each mid superficial femoral vein. Findings were called to the patient's nurse Shashank at 12:48 PM Eastern time. Signer Name: Terry Gates MD Signed: 09/02/2020 1:16 PM Workstation Name: [id number]
[2020-09-02] MEDS ORDERED: HEPARIN/ 0.45% NACL DRIP 25,000 UNIT/500 ML BAG ONE (13:22)
[2020-09-02] MEDS ORDERED: HEPARIN 10,000 UNITS/10 ML VIAL ONE (13:23)
[2020-09-02] MEDS ORDERED: FUROSEMIDE 40 MG/4 ML INJ IV ONE (14:03)
--- NOTE | 2020-09-02 14:03 | Consultation ---
History of Present Illness - Reason for Consult Consult date: 09/02/20 acute renal failure, hyperkalemia, metabolic acidosis - History of Present Illness The patient is a 64 YO female with history significant for Obesity, HTN, DM, Anemia, PVD, s/p bilateral BKA, Nicotine Dependence and positive COVID test who presented to [facility] ED 09/01 for evaluation of bilateral LE swelling, weakness, body aches, shortness of breath, nausea and multiple loose stools over the past week. Patient is a very poor historian and there was no family member at the bedside. Per ED note patient was admitted to [facility] on August 24 with diagnosis of symptomatic anemia secondary to acute blood loss, atherosclerosis PVD with ulceration, type 2 diabetes, and acute kidney injury. Initial hemoglobin was 4.5/hematocrit 15. Abdominal series with chest x-ray was positive for prominent interstitial opacities reflect edema versus pneumonitis with a small right pleural effusion and nonobstructive bowel gas pattern without free air. Is also noted that the patient was Covid positive and was noted to have gram-positive cocci in blood. In the [facility] ED her intial BP was around 60/30s and Temp 92.8. Patient met criteria for sepsis and found to have bilateral pneumonia, metabolic acidosis and acute kidney injury. Patient is negative for Coronavirus PCR. Labs significant for Creat 2, BUN 51 and Hb 7.6. Nephrology was consulted for further evaluation and treatment. Past History Past Medical History: anemia, diabetes, hypertension, PVD Past Surgical History: Other (Bilateral BKA) Social history: single. denies: smoking, alcohol abuse Family history: hypertension Medications and Allergies Allergies Allergy/AdvReac Type Severity Reaction Status Date / Time No Known Allergies Allergy Unverified 02/14/14 19:23 Home Medications Medication Instructions Recorded Confirmed Last Taken Type Aspirin [[place] Aspirin] 81 mg PO DAILY 02/14/14 02/22/14 02/14/14 11:00 History Ferrous Sulfate [Feosol 325mg] 325 mg PO DAILY 02/14/14 02/22/14 02/14/14 11:00 History Sertraline [Zoloft] 50 mg PO DAILY 02/14/14 02/22/14 02/14/14 11:00 History amLODIPine 5 mg PO DAILY 02/14/14 02/22/14 02/14/14 11:00 History hydroCHLOROthiazide 25 mg PO DAILY 02/14/14 02/22/14 02/14/14 11:00 History [Hydrochlorothiazide] lisinopriL [Zestril TAB] 10 mg PO DAILY 02/14/14 02/22/14 02/14/14 11:00 History Insulin NPH Hum/Reg Insulin Hm 100 units SQ BID 02/22/14 02/23/14 Unknown History [Humulin 70-30 Vial] Insulin Regular, Human [HumuLIN R] 7 unit SQ AC 02/22/14 02/23/14 Unknown Hist ory Active Meds: Active Medications Acetaminophen (Tylenol) 650 mg PO Q6H PRN PRN Reason: Pain, Mild (1-3) Aspirin (Baby Aspirin) 81 mg PO DAILY [facility] Last Admin: 09/02/20 10:34 Dose: 81 mg Documented by: Ferrous Sulfate (Feosol) 325 mg PO DAILY [facility] Last Admin: 09/02/20 10:35 Dose: 325 mg Documented by: Hydromorphone HCl (Dilaudid) 0.25 mg IV Q4H PRN PRN Reason: Pain, Moderate (4-6) Cefepime HCl (Cefepime/Ns 1 Gm/100 Ml) 1 gm in 100 mls @ 200 mls/hr IV Q12HR [facility]; Protocol Metronidazole (Flagyl 500 Mg/100 Ml) 500 mg in 100 mls @ 100 mls/hr IV Q8HR [facility] ; Protocol Heparin Sodium/Sodium Chloride (Heparin/ 0.45% Nacl-25,000 Unit/500 Ml) 25,000 unit in 500 mls @ 26 mls/hr IV TITR [facility]; Protocol Methylprednisolone Sodium Succinate (Solu-Medrol) 40 mg IV Q8HR [facility] Last Admin: 09/02/20 06:34 Dose: 40 mg Documented by: Sertraline HCl (Zoloft) 50 mg PO DAILY [facility] Last Admin: 09/02/20 10:34 Dose: 50 mg Documented by: Sodium Chloride (Sodium Chloride Flush Syringe 10 Ml) 10 ml IV BID [facility] Last Admin: 09/02/20 10:35 Dose: 10 ml Documented by: Sodium Chloride (Sodium Chloride Flush Syringe 10 Ml) 10 ml IV PRN PRN PRN Reason: LINE FLUSH Review of Systems ROS unobtainable: due to mental status Exam - Vital Signs Vital signs: Vital Signs BP 84/51 09/01/20 21:20 Results - Lab Results 09/02/20 13:52 09/02/20 08:10 Most recent lab results Calcium 7.4 mg/dL (8.4-10.2) L 09/02/20 08:10 Assessment and Plan 1. Acute kidney injury: DIRK secondary to combination of Vasomotor nephropathy and severe sepsis. Renal US and urine studies ordered. Monitor renal function. Renal prognosis is guarded. Avoid nephrotoxic agents. Meds dosage based on GFR. 2. FEN: Mild hyperkalemia, IVF with D5 and bicarb, monitor. Anion-gap Metabolic acidosis, started on IV Sod bicarbonate, monitor. Monitor lytes. 3. Severe sepsis, POA: Presented with hypothermia, hypotension. Likely secondary to bilateral pneumonia. 4. Severe COVID infection: Followed by ID. 6. Bilateral LE DVT, POA. 7. Microcytic anemia, POA. Monitor. 8. Thrombocytopenia, POA. 9. Acute diarrhea: Likely associated to COVID-19 infection. C. difficile test ordered. Subjective: Patient was seen and examined at the bedside. General Appearance: General appearance: well-developed, well-nourished, appears stated age, no distress, obese HEENT: ATNC, JAYCE Neck: supple Respiratory: ctab Cardiology: regular, S1S2, no murmur Gastrointestinal: normoactive bowel sounds, no tenderness, not distended Integumentary: no obvious rash Neurologic: alert, moving extremities, some confusion noted Ext: trace dependent edema, b/l BKA
[2020-09-02] MEDS ORDERED: CEFEPIME/NS 1 GM/100 ML 1 GM/100 ML BAG IV ONE (14:09)
[2020-09-02] MEDS: CEFEPIME/NS 1 GM/100 ML 1 GM/100 ML BAG IV SCH ×2 (14:13→22:49)
[2020-09-02 14:39] LABS: INR 1.05 (0.87-1.13)
[2020-09-02 14:40] LABS: Partial Thromboplastin Time 29.2 Sec. (24.2-36.6)
[2020-09-02] MEDS ORDERED: WATER IV SCH (15:00)
[2020-09-02] MEDS ORDERED: STERILE IV SCH (15:00)
[2020-09-02] MEDS ORDERED: SODIUM BICARBONATE 100 MEQ in WATER FOR INJECTION (PF) 1,000 ML IV ONE (15:00)
[2020-09-02] MEDS ORDERED: SODIUM BICARBONATE IV SCH (15:00)
[2020-09-02 15:17] LABS: Hemoglobin 7.9 gm/dl (10.1-14.3)
[2020-09-02 15:18] LABS: Hematocrit 27.4 % (30.3-42.9)
--- NOTE | 2020-09-02 15:20 | Event Note ---
Date: 09/02/[address] Meza 64-year-old female now being evaluated for sepsis secondary to pneumonia, COVID- 19, DIRK. Ultrasound lower extremity Doppler showed bilateral DVT. Patient started on anticoagulation. ID and nephrology on board Hospitalist service with documented full progress note tomorrow
[2020-09-02] MEDS ORDERED: metroNIDAZOLE/NS 500 MG/100 ML 500 MG/100 ML BAG IV ONE (17:05)
[2020-09-02] MEDS: metroNIDAZOLE/NS 500 MG/100 ML 500 MG/100 ML BAG IV SCH ×2 (18:15→22:56)
[2020-09-02] MEDS ORDERED: FUROSEMIDE 40 MG/4 ML INJ ONE (18:34)
[2020-09-02] MEDS: WARFARIN 5 MG TAB PO SCH (19:05)
[2020-09-03 05:42] LABS: Hematocrit 21.5 % (30.3-42.9); Hemoglobin 6.4 gm/dl (10.1-14.3); Mean Corpuscular HGB Conc 30 % (30-34); Mean Corpuscular Volume 75 fl (79-97); Platelet Count 165 K/mm3 (140-440); Red Blood Count 2.87 M/mm3 (3.65-5.03); Red Cell Distribution Width 35.3 % (13.2-15.2)
[2020-09-03 05:51] LABS: INR 1.35 (0.87-1.13)
[2020-09-03 06:02] LABS: Calcium 7.4 mg/dL (8.4-10.2)
[2020-09-03] MEDS: metroNIDAZOLE/NS 500 MG/100 ML 500 MG/100 ML BAG IV SCH ×3 (06:09→23:40)
[2020-09-03] MEDS: methylPREDNISolone Sod Succinate 40 MG/1 ML INJ IV SCH ×2 (06:10→13:26)
[2020-09-03 06:54] LABS: Basophils % (Manual) 0 % (0.0-1.8); Eosinophils % (Manual) 0 % (0.0-4.3); Total Cells Counted 100
[2020-09-03 06:55] LABS: Anisocytosis 3+; Burr Cells 1+; Hypochromasia 1+; Ovalocytes Few
[2020-09-03 06:56] LABS: Platelet Estimate Consistent w Auto; Schistocytes 1+
[2020-09-03] MEDS ORDERED: SODIUM CHLORIDE 0.9% 500 ML 500 ML IV NR (08:24)
--- NOTE | 2020-09-03 09:07 | Progress Note ---
Assessment and Plan 1. Acute kidney injury: DIRK secondary to combination of Vasomotor nephropathy and severe sepsis. Renal US negative for hydro. Urine studies ordered. Monitor renal function. Creatinine level is about the same. Prior Creatinine was 1.2 in 2014. Renal prognosis is guarded. Avoid nephrotoxic agents. Meds dosage based on GFR. 2. FEN: Mild hyperkalemia, IVF with D5 and bicarb, Kayexalate ordere, monitor. Anion-gap Metabolic acidosis, on IV Sod bicarbonate, monitor. Monitor lytes. 3. Severe sepsis, POA: Presented with hypothermia, hypotension. Likely secondary to bilateral pneumonia. 4. Severe COVID infection: Followed by ID. 6. Bilateral LE DVT, POA. 7. Microcytic anemia, POA. Monitor. 8. Thrombocytopenia, POA. 9. Acute diarrhea: Likely associated to COVID-19 infection. C. difficile test ordered. Subjective: Patient was seen and examined at the bedside. General Appearance: General appearance: well-developed, well-nourished, appears stated age, no distress, obese HEENT: ATNC, JAYCE Neck: supple Respiratory: ctab Cardiology: regular, S1S2, no murmur Gastrointestinal: normoactive bowel sounds, no tenderness, not distended Integumentary: no obvious rash Neurologic: alert, oriented, moving extremities Ext: trace dependent edema, b/l BKA Subjective Date of service: 09/03/20 Objective - Vital Signs Vital signs: Vital Signs - 12hr 09/03/20 09/03/20 09/03/20 00:00 00:50 01:00 Temperature 97.3 F L Pulse Rate 90 98 H 99 H Respiratory 13 Rate Blood Pressure 97/73 101/76 O2 Sat by Pulse 99 96 Oximetry 09/03/20 09/03/20 09/03/20 01:15 01:31 01:45 Temperature Pulse Rate 97 H 86 83 Respiratory 13 21 22 Rate Blood Pressure 101/76 137/83 137/83 O2 Sat by Pulse 99 94 91 Oximetry 09/03/20 09/03/20 09/03/20 02:01 02:15 02:31 Temperature Pulse Rate 85 83 85 Respiratory 19 19 20 Rate Blood Pressure 137/83 137/83 137/83 O2 Sat by Pulse 93 93 95 Oximetry 09/03/20 09/03/20 09/03/20 02:45 03:01 03:15 Temperature Pulse Rate 87 89 82 Respiratory 20 21 19 Rate Blood Pressure 137/83 131/79 131/79 O2 Sat by Pulse 95 95 95 Oximetry 09/03/20 09/03/20 09/03/20 03:31 03:45 04:00 Temperature 97.3 F L Pulse Rate 87 89 84 Respiratory 19 21 Rate Blood Pressure 131/79 131/79 O2 Sat by Pulse 96 95 Oximetry 09/03/20 09/03/20 09/03/20 04:01 04:15 04:31 Temperature Pulse Rate 88 90 92 H Respiratory 21 17 20 Rate Blood Pressure 131/79 131/79 131/79 O2 Sat by Pulse 93 94 93 Oximetry 09/03/20 09/03/20 09/03/20 04:45 05:01 05:15 Temperature Pulse Rate 84 85 87 Respiratory 21 19 19 Rate Blood Pressure 131/79 131/79 131/79 O2 Sat by Pulse 95 96 90 Oximetry 09/03/20 09/03/20 09/03/20 05:31 05:45 06:00 Temperature Pulse Rate 95 H 88 91 H Respiratory 20 20 20 Rate Blood Pressure 131/79 131/79 128/69 O2 Sat by Pulse 94 94 95 Oximetry 09/03/20 09/03/20 09/03/20 06:15 06:31 06:45 Temperature Pulse Rate 93 H 79 89 Respiratory 15 16 18 Rate Blood Pressure 128/69 128/69 128/69 O2 Sat by Pulse 95 97 Oximetry 09/03/20 09/03/20 09/03/20 07:01 07:15 07:31 Temperature Pulse Rate 81 85 90 Respiratory 20 19 18 Rate Blood Pressure 128/69 128/69 128/69 O2 Sat by Pulse Oximetry 09/03/20 09/03/20 09/03/20 07:45 08:00 08:01 Temperature 97.9 F Pulse Rate 86 82 Respiratory 19 21 Rate Blood Pressure 128/69 130/67 O2 Sat by Pulse 96 Oximetry 09/03/20 09/03/20 09/03/20 08:15 08:31 08:45 Temperature Pulse Rate 76 87 96 H Respiratory 21 21 18 Rate Blood Pressure 130/67 130/67 130/67 O2 Sat by Pulse 99 100 100 Oximetry - Lab 09/03/20 05:17 09/03/20 05:17 Most recent lab results Calcium 7.4 mg/dL (8.4-10.2) L 09/03/20 05:17 Medications & Allergies - Medications Allergies/Adverse Reactions: Allergies No Known Allergies Allergy (Unverified 02/14/14 19:23) Home Medications: Home Medications Medication Instructions Recorded Confirmed Last Taken Type Aspirin [[place] Aspirin] 81 mg PO DAILY 02/14/14 02/22/14 02/14/14 11:00 History Ferrous Sulfate [Feosol 325mg] 325 mg PO DAILY 02/14/14 02/22/14 02/14/14 11:00 History Sertraline [Zoloft] 50 mg PO DAILY 02/14/14 02/22/14 02/14/14 11:00 History amLODIPine 5 mg PO DAILY 02/14/14 02/22/14 02/14/14 11:00 History hydroCHLOROthiazide 25 mg PO DAILY 02/14/14 02/22/14 02/14/14 11:00 History [Hydrochlorothiazide] lisinopriL [Zestril TAB] 10 mg PO DAILY 02/14/14 02/22/14 02/14/14 11:00 History Insulin NPH Hum/Reg Insulin Hm 100 units SQ BID 02/22/14 02/23/14 Unknown History [Humulin 70-30 Vial] Insulin Regular, Human [HumuLIN R] 7 unit SQ AC 02/22/14 02/23/14 Unknown History Active Medications: Generic Name Dose Route Start Last Admin Trade Name Freq PRN Reason Stop Dose Admin Acetaminophen 650 mg 09/02/20 00:30 Tylenol PO Q6H PRN Pain, Mild (1-3) Aspirin 81 mg 09/02/20 10:00 09/02/20 10:34 Baby Aspirin PO 81 mg DAILY JAE Administration Ferrous Sulfate 325 mg 09/02/20 10:00 09/02/20 10:35 Feosol PO 325 mg DAILY JAE Administration Hydromorphone HCl 0.25 mg 09/02/20 00:30 Dilaudid IV Q4H PRN Pain, Moderate (4-6) Cefepime HCl 1 gm in 100 mls @ 200 mls/hr 09/02/20 11:30 09/02/20 22:49 Cefepime/Ns 1 Gm/100 Ml IV 200 mls/hr Q12HR JAE Administration Protocol Metronidazole 500 mg in 100 mls @ 100 mls/hr 09/02/20 14:00 09/03/20 06:09 Flagyl 500 Mg/100 Ml IV 100 mls/hr Q8HR JAE Administration Protocol Heparin Sodium/Sodium Chloride 25,000 unit in 500 mls @ 26 mls/hr 09/02/20 13:00 09/03/20 07:57 Heparin/ 0.45% Nacl-25,000 Unit/500 Ml IV 0 units/hr TITR JAE 0 mls/hr Titration Protocol 1,300 UNITS/HR Sodium Chloride 500 mls @ 0 mls/hr 09/03/20 08:24 Nacl 0.9% 500 Ml IV 09/03/20 23:59 ONCE NR As Directed Insulin Human Lispro 0 unit 09/03/20 11:30 Humalog SUB-Q ACHS JAE Protocol Methylprednisolone Sodium Succinate 40 mg 09/02/20 06:00 09/03/20 06:10 Solu-Medrol IV 40 mg Q8HR JAE Administration Sertraline HCl 50 mg 09/02/20 10:00 09/02/20 10:34 Zoloft PO 50 mg DAILY JAE Administration Sodium Chloride 10 ml 09/02/20 10:00 09/02/20 22:56 Sodium Chloride Flush Syringe 10 Ml IV 10 ml BID JAE Administration Sodium Chloride 10 ml 09/02/20 00:30 Sodium Chloride Flush Syringe 10 Ml IV PRN PRN LINE FLUSH Warfarin Sodium 5 mg 09/02/20 17:00 09/02/20 19:05 Coumadin PO 5 mg DAILY@1700 JAE Administration
--- NOTE | 2020-09-03 10:05 | Progress Note ---
Assessment and Plan Cultures: Blood culture no growth today. SARS CoV2 PCR positive [facility] 08/24/2020. Assessment: 64 years old female with history of diabetes mellitus, hypertension, peripheral vascular disease status post bilateral BKA, chronic kidney disease, tobacco use, tested positive for COVID-19 outpatient the day before admission, admitted on 09/01/2020 due to a week history of cough, generalized weakness, body aches, subjective fever, shortness of breath, nausea, multiple diarrheic episodes, patient recently admitted to [facility] from 08/23/2020 until 08/27/2020 for symptomatic anemia, hemoglobin at 4.5, refused further work-up and tested positive for COVID-19, asymptomatic: #Severe sepsis: Present on admission with hypothermia, hypotension, likely due to bilateral pneumonia. #Severe COVID pneumonia: Patient tested positive at [facility] on 08/24/2020. Initial ferritin normal, D-dimer elevated 2.4. D-dimer here 08/10/1976. Ferritin slightly elevated 313. Chest x-ray shows extensive bilateral airspace disease. Patient is currently on room air. There may be a component of volume overload. Echocardiogram at [facility] EF 43%. BNP 70,000. Procalcitonin normal, hence I doubt bacterial component. #Elevated LFTs: from COVID #Hypoxia: now on 2 L NC, likely due to covid #DIRK on CKD: from COVID #Acute thrombocytopenia: Platelets 08/27/2020 were 146. Likely due to COVID-19 infection. #Acute diarrhea: Multiple episodes. Likely associated to COVID-19 infection. Should rule out C. difficile given recent antibiotic exposure. Recommendations: -Obtain stool for Cdiff test -Continue Solu-Medrol x 10 days -SARS CoV-2 IgG negative, patient may benefit from COVID plasma -No indication for remdesivir as pt symptomatic for over 10 days so no benefit -Monitor inflammatory markers - ferritin, Ddimer, CRP, LDH -Continue cefepime and metronidazole IV renally adjusted for now given severe sepsis -Check MRSA PCR - pending -Continue anticoagulation per System Protocol All laboratory, cultures and imaging were reviewed. Will follow Beba Parker MD Infectious Diseases Business Process Associate [facility] ([facility] M [phone] O [phone] Subjective Date of service: 09/03/20 Principal diagnosis: COVID Interval history: Remains in 2 L no fever Objective - Exam Narrative Exam: Physical Exam: reviewed ED and hospitalist notes, limited due to conservation of PPE and decrease risk of transmission. General appearance: limited due to conservation of PPE Eyes: limited due to conservation of PPE HENT: Atraumatic; limited due to conservation of PPE Lungs: limited due to conservation of PPE CV: limited due to conservation of PPE Abdomen: limited due to conservation of PPE Extremities: limited due to conservation of PPE Skin: limited due to conservation of PPE Psych: limited due to conservation of PPE Neuro: limited due to conservation of PPE - Constitutional Vitals: Vital Signs Temp Pulse Resp BP Pulse Ox 97.9 F 96 H 18 130/67 100 09/03/20 08:00 09/03/20 08:45 09/03/20 08:45 09/03/20 08:45 09/03/20 08:45 Temperature -Last 24 Hours Temperature 97.9 F Temperature 97.3 F Temperature 97.3 F Temperature 98.9 F - Labs CBC & Chem 7: 09/03/20 05:17 09/03/20 05:17 Labs: Abnormal lab results 09/01/20 09/02/20 09/02/20 Range/Units 23:15 08:10 12:07 RBC (3.65-5.03) M/mm3 Hgb (10.1-14.3) gm/dl Hct (30.3-42.9) % MCV (79-97) fl MCH (28-32) pg RDW (13.2-15.2) % Plt Count 110 L (140-440) K/mm3 Seg Neuts % (Manual) (40.0-70.0) % Seg Neutrophils # Man (1.8-7.7) K/mm3 PT (12.2-14.9) Sec. INR (0.87-1.13) Heparin Anti-Xa Level (0.3-0.7) U.I./ml Sodium (137-145) mmol/L Potassium (3.6-5.0) mmol/L Chloride (98-107) mmol/L Carbon Dioxide (22-30) mmol/L BUN (7-17) mg/dL Creatinine (0.6-1.2) mg/dL Glucose (65-100) mg/dL POC Glucose 121 H (70-105) mg/dL Calcium (8.4-10.2) mg/dL Crossmatch See Detail 09/02/20 09/02/20 09/03/20 Range/Units 13:52 19:50 00:32 RBC (3.65-5.03) M/mm3 Hgb 7.9 L (10.1-14.3) gm/dl Hct 27.4 L (30.3-42.9) % MCV (79-97) fl MCH (28-32) pg RDW (13.2-15.2) % Plt Count 133 L (140-440) K/mm3 Seg Neuts % (Manual) (40.0-70.0) % Seg Neutrophils # Man (1.8-7.7) K/mm3 PT (12.2-14.9) Sec. INR (0.87-1.13) Heparin Anti-Xa Level 0.78 H (0.3-0.7) U.I./ml Sodium (137-145) mmol/L Potassium (3.6-5.0) mmol/L Chloride (98-107) mmol/L Carbon Dioxide (22-30) mmol/L BUN (7-17) mg/dL Creatinine (0.6-1.2) mg/dL Glucose (65-100) mg/dL POC Glucose 206 H (70-105) mg/dL Calcium (8.4-10.2) mg/dL Crossmatch 09/03/20 09/03/20 09/03/20 Range/Units 05:17 05:17 05:17 RBC 2.87 L (3.65-5.03) M/mm3 Hgb 6.4 L (10.1-14.3) gm/dl Hct 21.5 L (30.3-42.9) % MCV 75 L (79-97) fl MCH 22 L (28-32) pg RDW 35.3 H (13.2-15.2) % Plt Count (140-440) K/mm3 Seg Neuts % (Manual) 76.0 H (40.0-70.0) % Seg Neutrophils # Man 7.8 H (1.8-7.7) K/mm3 PT 17.0 H (12.2-14.9) Sec. INR 1.35 H (0.87-1.13) Heparin Anti-Xa Level 0.94 H (0.3-0.7) U.I./ml Sodium 147 H (137-145) mmol/L Potassium 5.2 H (3.6-5.0) mmol/L Chloride 123.4 H (98-107) mmol/L Carbon Dioxide 11 L (22-30) mmol/L BUN 59 H (7-17) mg/dL Creatinine 2.0 H (0.6-1.2) mg/dL Glucose 204 H (65-100) mg/dL POC Glucose (70-105) mg/dL Calcium 7.4 L (8.4-10.2) mg/dL Crossmatch 09/03/20 09/03/20 Range/Units 06:05 08:48 RBC (3.65-5.03) M/mm3 Hgb (10.1-14.3) gm/dl Hct (30.3-42.9) % MCV (79-97) fl MCH (28-32) pg RDW (13.2-15.2) % Plt Count (140-440) K/mm3 Seg Neuts % (Manual) (40.0-70.0) % Seg Neutrophils # Man (1.8-7.7) K/mm3 PT (12.2-14.9) Sec. INR (0.87-1.13) Heparin Anti-Xa Level (0.3-0.7) U.I./ml Sodium (137-145) mmol/L Potassium (3.6-5.0) mmol/L Chloride (98-107) mmol/L Carbon Dioxide (22-30) mmol/L BUN (7-17) mg/dL Creatinine (0.6-1.2) mg/dL Glucose (65-100) mg/dL POC Glucose 190 H 223 H (70-105) mg/dL Calcium (8.4-10.2) mg/dL Crossmatch
[2020-09-03] MEDS: SERTRALINE 50 MG TAB PO SCH (11:49)
[2020-09-03] MEDS: FERROUS SULFATE 325 MG TAB PO SCH (11:49)
[2020-09-03] MEDS: ASPIRIN 81 MG TAB CHEW PO SCH (11:50)
[2020-09-03] MEDS: CEFEPIME/NS 1 GM/100 ML 1 GM/100 ML BAG IV SCH ×2 (11:50→23:40)
[2020-09-03] MEDS: INSULIN LISPRO 100 UNIT/ML VIAL 3 mL SUB-Q SCH ×3 (11:52→23:40)
[2020-09-03] MEDS ORDERED: SODIUM POLYSTYRENE 15 GM/60 ML ORAL LIQD PO SCH (14:30)
[2020-09-03] MEDS: WARFARIN 5 MG TAB PO SCH (16:32)
--- NOTE | 2020-09-03 16:41 | Ultrasound Report ---
ULTRASOUND RENAL INDICATION / CLINICAL INFORMATION: Acute renal failure.. COMPARISON: None available. FINDINGS: RIGHT KIDNEY: Length = 10 cm. [normal > 9 cm] - Parenchymal Thickness = 1.8 cm. [normal > 1.5 cm] - Echogenicity: Normal. - Hydronephrosis: None. - Cyst or mass: No significant abnormality. - Stones: None seen. LEFT KIDNEY: Length = 9.6 cm. [normal > 9 cm] - Parenchymal Thickness = 1.6 cm. [normal > 1.5 cm] - Echogenicity: Normal. - Hydronephrosis: None. - Cyst or mass: No significant abnormality. - Stones: None seen. URINARY BLADDER: Not visualized. FREE FLUID: None. ADDITIONAL FINDINGS: Small bilateral pleural effusions. IMPRESSION: 1. Unremarkable appearance of the kidneys. 2. Small bilateral pleural effusions. Signer Name: Terry Gates MD Signed: 09/03/2020 4:37 PM Workstation Name: [id number]
--- NOTE | 2020-09-03 17:30 | Progress Note ---
Assessment and Plan Assessment and plan: 64 YO Female with HTN, DM, Anemia, PVD, Nicotine Dependence, positive coronavirus test on presented to the emergency room for further evaluation. Patient states that she has experienced subjective fever, generalized weakness, body aches, shortness of breath, nausea, multiple loose stools, lower extremity edema over the past 1 week with progressively worsening symptoms over the past 3 to 4 days prior to presentation. Patient was brought to the emergency room as a result. Here, patient found to be hypotensive with a systolic blood pressure ranging from 53-94. Patient was also hypothermic with a body temperature of 93.3 F. Patient met criteria for sepsis protocol and found to have bilateral pneumonia, metabolic acidosis, acute kidney injury. Patient admitted to telemetry due to increased risk of multisystem decompensation. Patient initiated on coronavirus protocol. Coronavirus PCR has been ordered and is pending at time of admission. Patient remained hypotensive in spite of IV fluid resuscitation therapy. Patient subsequently upgraded to IMCU. 09/03. While in the ER, patient had an ultrasound Doppler performed that showed bilateral DVT involving the iliac veins. Patient was started on heparin drip. ID consulted for COVID-19 and nephrology consulted for DIRK. Patient seen and examined at bedside this morning. She has no complaints this morning. Her hemoglobin dropped to 6.4 this morning. Patient will get transfused 1 unit of PRBCs. Later this p.m., was notified by nurse that patient is having tarry dark stool and hematemesis. Heparin drip discontinued. Patient started on PPI drip and made n.p.o. GI is has been consulted. Patient will need to have an upper endoscopy. She has bilateral lower extremity DVT and will need vascular surgery evaluation to determine if she is a candidate for IVC filter placement. Problems --Sepsis Current Visit: Yes Status: Acute Qualifiers: Acute renal failure type: with acute tubular necrosis Plan to address problem: Continue IV antibiotics Blood culture pending ID recommendations appreciated --Bilateral pneumonia Current Visit: Yes Status: Acute Plan to address problem: From Covid Continue antibiotics Dexamethasone ID recommendations appreciated --Acute kidney injury (DIRK) with acute tubular necrosis (ATN) Current Visit: Yes Status: Acute Plan to address problem: Continue to monitor renal function Nephrology following closely --Bilateral lower extremity DVT Current Visit: Yes Status: Acute Qualifiers: Encounter type: initial encounter Qualified Code(s): T68.XXXA - Hyp othermia, initial encounter Plan to address problem: Started on IV heparin but patient hemoglobin dropped to 6.4 this morning Patient has a black stool and also having hematemesis Discontinue heparin Consult vascular surgeon for consideration of IVC filter placement --Diabetes Current Visit: Yes Status: Acute Plan to address problem: Sliding-scale insulin therapy, Accu-Chek, hypoglycemia protocol, consistent carbohydrate diet. --COVID-19 Current Visit: Yes Status: Acute Plan to address problem: Coronavirus protocol: Coronavirus PCR ordered and is pending at time of admissio n, contact precaution, isolation precautions, prone positioning while in bed, IV steroid therapy, IV antibiotic therapy. Supportive care. --Acute on chronic anemia Current Visit: Yes Status: Acute on chronic Plan to address problem: Hemoglobin dropped to 6.4 Transfuse PRBCs to maintain hemoglobin more than 7 Noted to have hematemesis and black stool GI has been consulted as patient may need EGD Hold heparin drip --GI bleed Current Visit: No Status: Acute Plan to address problem: Discontinue heparin due to GI bleed Start PPI N.p.o. NG tube if patient has another episode of vomiting GI has been consulted --DVT prophylaxis Current Visit: No Status: Acute Plan to address problem: Discontinue heparin due to GI bleed --Advance care planning Current Visit: Yes Status: Acute Plan to address problem: Disease education conducted, prognosis discussed, patient is full code, care plan discussed, patient knowledges understanding and agreement with care plan. +30 minutes. --Nicotine dependence Current Visit: Yes Status: Acute Qualifiers: Nicotine product type: cigarettes Substance use status: in withdrawal Qualified Code(s): F17.213 - Nicotine dependence, cigarettes, with withdrawal Plan to address problem: Supportive care, smoking cessation counseling, behavior change counseling, +15 minutes. History Interval history: Patient seen examined at bedside this morning She has no complaints Labs showed drop in hemoglobin. Type and crossmatch 1 unit PRBCs Trend hemoglobin Stool guaiac test Hospitalist Physical - Physical exam Narrative exam: VITAL SIGNS: Reviewed. GENERAL: Awake and alert on response to questions HEAD: No signs of head trauma. EYES: Pupils are equal. Extraocular motions intact. EARS: Hearing grossly intact. MOUTH: Oropharynx is normal. NECK: No adenopathy, no JVD. CHEST: Chest with diminished breath sounds bilaterally. No wheezes, rales, or rhonchi. CARDIAC: Regular rate and rhythm. S1 and S2, without murmurs, gallops, or rubs. VASCULAR: No Edema. Peripheral pulses normal and equal in all extremities. ABDOMEN: Soft, non tender and non distended. No rebound or guarding, and no masses palpated. Bowel Sounds normal. MUSCULOSKELETAL: Good range of motion of all major joints. Extremities without clubbing, cyanosis or edema. NEUROLOGIC EXAM: Alert and oriented x3. No focal neurologic deficits PSYCHIATRIC: Stable mood SKIN: No obvious lesions - Constitutional Vitals: Temp Pulse Resp BP Pulse Ox 98.1 F 96 H 18 130/67 100 09/03/20 17:02 09/03/20 08:45 09/03/20 08:45 09/03/20 08:45 09/03/20 08:45 Results - Labs CBC & Chem 7: 09/03/20 05:17 09/03/20 05:17 Labs: Laboratory Last Values WBC 10.2 K/mm3 (4.5-11.0) 09/03/20 05:17 RBC 2.87 M/mm3 (3.65-5.03) L 09/03/20 05:17 Hgb 6.4 gm/dl (10.1-14.3) L 09/03/20 05:17 Hct 21.5 % (30.3-42.9) L 09/03/20 05:17 MCV 75 fl (79-97) L 09/03/20 05:17 MCH 22 pg (28-32) L 09/03/20 05:17 MCHC 30 % (30-34) 09/03/20 05:17 RDW 35.3 % (13.2-15.2) H 09/03/20 05:17 Plt Count 165 K/mm3 (140-440) 09/03/20 05:17 Add Manual Diff Complete 09/03/20 05:17 Total Counted 100 09/03/20 05:17 Seg Neuts % (Manual) 76.0 % (40.0-70.0) H 09/03/20 05:17 Band Neutrophils % 0 % 09/03/20 05:17 Lymphocytes % (Manual) 18.0 % (13.4-35.0) 09/03/20 05:17 Reactive Lymphs % (Man) 0 % 09/03/20 05:17 Monocytes % (Manual) 6.0 % (0.0-7.3) 09/03/20 05:17 Eosinophils % (Manual) 0 % (0.0-4.3) 09/03/20 05:17 Basophils % (Manual) 0 % (0.0-1.8) 09/03/20 05:17 Metamyelocytes % 0 % 09/03/20 05:17 Myelocytes % 0 % 09/03/20 05:17 Promyelocytes % 0 % 09/03/20 05:17 Blast Cells % 0 % 09/03/20 05:17 Nucleated RBC % Not Reportable 09/03/20 05:17 Seg Neutrophils # Man 7.8 K/mm3 (1.8-7.7) H 09/03/20 05:17 Band Neutrophils # 0.0 K/mm3 09/03/20 05:17 Lymphocytes # (Manual) 1.8 K/mm3 (1.2-5.4) 09/03/20 05:17 Abs React Lymphs (Man) 0.0 K/mm3 09/03/20 05:17 Monocytes # (Manual) 0.6 K/mm3 (0.0-0.8) 09/03/20 05:17 Eosinophils # (Manual) 0.0 K/mm3 (0.0-0.4) 09/03/20 05:17 Basophils # (Manual) 0.0 K/mm3 (0.0-0.1) 09/03/20 05:17 Metamyelocytes # 0.0 K/mm3 09/03/20 05:17 Myelocytes # 0.0 K/mm3 09/03/20 05:17 Promyelocytes # 0.0 K/mm3 09/03/20 05:17 Blast Cells # 0.0 K/mm3 09/03/20 05:17 WBC Morphology Not Reportable 09/03/20 05:17 Hypersegmented Neuts Not Reportable 09/03/20 05:17 Hyposegmented Neuts Not Reportable 09/03/20 05:17 Hypogranular Neuts Not Reportable 09/03/20 05:17 Smudge Cells Not Reportable 09/03/20 05:17 Toxic Granulation Not Reportable 09/03/20 05:17 Toxic Vacuolation Not Reportable 09/03/20 05:17 Dohle Bodies Not Reportable 09/03/20 05:17 Pelger-Huet Anomaly Not Reportable 09/03/20 05:17 Ignacia Rods Not Reportable 09/03/20 05:17 Platelet Estimate Consistent w auto 09/03/20 05:17 Clumped Platelets Not Reportable 09/03/20 05:17 Plt Clumps, EDTA Not Reportable 09/03/20 05:17 Large Platelets Not Reportable 09/03/20 05:17 Giant Platelets Not Reportable 09/03/20 05:17 Platelet Satelliting Not Reportable 09/03/20 05:17 Plt Morphology Comment Not Reportable 09/03/20 05:17 RBC Morphology Not Reportable 09/03/20 05:17 Dimorphic RBCs Not Reportable 09/03/20 05:17 Polychromasia Not Reportable 09/03/20 05:17 Hypochromasia 1+ 09/03/20 05:17 Poikilocytosis Not Reportable 09/03/20 05:17 Anisocytosis 3+ 09/03/20 05:17 Microcytosis 1+ 09/03/20 05:17 Macrocytosis Not Reportable 09/03/20 05:17 Spherocytes Not Reportable 09/03/20 05:17 Pappenheimer Bodies Not Reportable 09/03/20 05:17 Sickle Cells Not Reportable 09/03/20 05:17 Target Cells Not Reportable 09/03/20 05:17 Tear Drop Cells Not Reportable 09/03/20 05:17 Ovalocytes Few 09/03/20 05:17 Helmet Cells Not Reportable 09/03/20 05:17 [place] Bodies Not Reportable 09/03/20 05:17 Potter Rings Not Reportable 09/03/20 05:17 Flora Cells 1+ 09/03/20 05:17 Bite Cells Not Reportable 09/03/20 05:17 Crenated Cell Not Reportable 09/03/20 05:17 Elliptocytes Not Reportable 09/03/20 05:17 Acanthocytes (Spur) Not Reportable 09/03/20 05:17 Rouleaux Not Reportable 09/03/20 05:17 Hemoglobin C Crystals Not Reportable 09/03/20 05:17 Schistocytes 1+ 09/03/20 05:17 Malaria parasites Not Reportable 09/03/20 05:17 Molina Bodies Not Reportable 09/03/20 05:17 Hem Pathologist Commnt No 09/03/20 05:17 PT 17.0 Sec. (12.2-14.9) H 09/03/20 05:17 INR 1.35 (0.87-1.13) H 09/03/20 05:17 APTT 29.2 Sec. (24.2-36.6) 09/02/20 13:52 D-Dimer 1076.18 ng/mlDDU (0-234) H 09/01/20 21:55 Heparin Anti-Xa Level 0.94 U.I./ml (0.3-0.7) H 09/03/20 05:17 Sodium 147 mmol/L (137-145) H 09/03/20 05:17 Potassium 5.2 mmol/L (3.6-5.0) H 09/03/20 05:17 Chloride 123.4 mmol/L (98-107) H 09/03/20 05:17 Carbon Dioxide 11 mmol/L (22-30) L 09/03/20 05:17 Anion Gap 18 mmol/L 09/03/20 05:17 BUN 59 mg/dL (7-17) H 09/03/20 05:17 Creatinine 2.0 mg/dL (0.6-1.2) H 09/03/20 05:17 Estimated GFR 30 ml/min 09/03/20 05:17 BUN/Creatinine Ratio 30 % 09/03/20 05:17 Glucose 204 mg/dL (65-100) H 09/03/20 05:17 POC Glucose 280 mg/dL (70-105) H 09/03/20 16:21 Lactic Acid 0.60 mmol/L (0.7-2.0) L 09/02/20 08:10 Calcium 7.4 mg/dL (8.4-10.2) L 09/03/20 05:17 Ferritin 313.5 ng/mL (10.0-200.0) H 09/01/20 21:55 Total Bilirubin 0.20 mg/dL (0.1-1.2) 09/01/20 21:40 AST 59 units/L (5-40) H 09/01/20 21:40 ALT 28 units/L (7-56) 11/03/20 21:40 Alkaline Phosphatase 242 units/L (35-129) H 09/01/20 21:40 Lactate Dehydrogenase 435 units/L (91-180) H 09/01/20 21:55 C-Reactive Protein 2.30 mg/dL (0.00-1.30) H 09/01/20 21:55 NT-Pro-B Natriuret Pep 43581 pg/mL (0-900) H 09/01/20 21:55 Total Protein 5.3 g/dL (6.3-8.2) L 09/01/20 21:40 Albumin 2.5 g/dL (3.9-5) L 09/01/20 21:40 Albumin/Globulin Ratio 0.9 % 09/01/20 21:40 Procalcitonin 0.10 ng/mL (<0.15) 09/01/20 21:55 TSH 0.735 mlU/mL (0.270-4.200) 09/02/20 00:45 Free T4 0.92 ng/dL (0.76-1.46) 09/02/20 00:45 Free T4 0.94 ng/dL (0.76-1.46) 09/02/20 00:45 Urine Color Elena (Yellow) 09/02/20 03:44 Urine Turbidity Cloudy (Clear) 09/02/20 03:44 Urine pH 7.0 (5.0-7.0) 09/02/20 03:44 Ur Specific [place] 1.015 (1.003-1.030) 09/02/20 03:44 Urine Protein >500 mg/dL (Negative) 09/02/20 03:44 Urine Glucose (UA) Neg mg/dL (Negative) 09/02/20 03:44 Urine Ketones Neg mg/dL (Negative) 09/02/20 03:44 Urine Blood Neg (Negative) 09/02/20 03:44 Urine Nitrite Neg (Negative) 09/02/20 03:44 Urine Bilirubin Neg (Negative) 09/02/20 03:44 Urine Urobilinogen < 2.0 mg/dL (<2.0) 09/02/20 03:44 Ur Leukocyte Esterase Neg (Negative) 09/02/20 03:44 Urine WBC (Auto) < 1.0 /HPF (0.0-6.0) 09/02/20 03:44 Urine RBC (Auto) < 1.0 /HPF (0.0-6.0) 09/02/20 03:44 U Epithel Cells (Auto) < 1.0 /HPF (0-13.0) 09/02/20 03:44 Urine Bacteria (Auto) 2+ /HPF (Negative) 09/02/20 03:44 Urine Mucus Few /HPF 09/02/20 03:44 SARS-CoV-2 IgG Ab Nonreactive (NonReactive) 09/02/20 08:10 Blood Type O POSITIVE 09/01/20 23:15 Antibody Screen Negative 09/01/20 23:15 Crossmatch See Detail 09/01/20 23:15 Microbiology: Microbiology 09/03/20 14:00 Stool Stool Occult Blood (RAMSEY) - Final 09/01/20 23:27 Peripheral/Venous Blood Culture - Preliminary NO GROWTH AFTER 24 HOURS 09/01/20 23:44 Peripheral/Venous Blood Culture - Preliminary NO GROWTH AFTER 24 HOURS [place]/IV: Voiding Method Incontinent IV Catheter Type [Right INT / Saline Lock External Jugular] Active Medications - Current Medications Current Medications: Generic Name Dose Route Start Last Admin Trade Name Freq PRN Reason Stop Dose Admin Acetaminophen 650 mg 09/02/20 00:30 Tylenol PO Q6H PRN Pain, Mild (1-3) Aspirin 81 mg 09/02/20 10:00 09/03/20 11:50 Baby Aspirin PO 81 mg DAILY JAE Administration Ferrous Sulfate 325 mg 09/02/20 10:00 09/03/20 11:49 Feosol PO 325 mg DAILY JAE Administration Hydromorphone HCl 0.25 mg 09/02/20 00:30 Dilaudid IV Q4H PRN Pain, Moderate (4-6) Cefepime HCl 1 gm in 100 mls @ 200 mls/hr 09/02/20 11:30 09/03/20 11:50 Cefepime/Ns 1 Gm/100 Ml IV 200 mls/hr Q12HR JAE Administration Protocol Metronidazole 500 mg in 100 mls @ 100 mls/hr 09/02/20 14:00 09/03/20 13:26 Flagyl 500 Mg/100 Ml IV 100 mls/hr Q8HR JAE Administration Protocol Sodium Chloride 500 mls @ 0 mls/hr 09/03/20 08:24 09/03/20 16:31 Nacl 0.9% 500 Ml IV 09/03/20 23:59 42 mls/hr ONCE NR Administration As Directed Insulin Human Lispro 0 unit 09/03/20 11:30 09/03/20 16:33 Humalog SUB-Q 4 unit ACHS JAE Administration Protocol Methylprednisolone Sodium Succinate 40 mg 09/02/20 06:00 09/03/20 13:26 Solu-Medrol IV 09/11/20 22:01 40 mg Q8HR JAE Administration Sertraline HCl 50 mg 09/02/20 10:00 09/03/20 11:49 Zoloft PO 50 mg DAILY JAE Administration Sodium Chloride 10 ml 09/02/20 10:00 09/03/20 11:50 Sodium Chloride Flush Syringe 10 Ml IV 10 ml BID JAE Administration Sodium Chloride 10 ml 09/02/20 00:30 Sodium Chloride Flush Syringe 10 Ml IV PRN PRN LINE FLUSH Warfarin Sodium 5 mg 09/02/20 17:00 09/03/20 16:32 Coumadin PO 5 mg DAILY@1700 JAE Administration Nutrition/Malnutrition Assess - Dietary Evaluation Nutrition/Malnutrition Findings: Nutrition Notes Start: 09/03/20 13:19 Freq: Status: Active Protocol: Document 09/03/20 13:19 AL (Rec: 09/03/20 14:02 AL [id number]) Co-Sign 09/03/20 13:19 MK Nutrition Notes Need for Assessment generated from: Education Initial or Follow up Brief Note Current Diagnosis CKD(stage I-IV),Diabetes, Sepsis,Hypertension Other Pertinent Diagnosis Pneu, anemia, Pmhx: covid +, bilateral BKA, Current Diet Consistent CHO Weight Status Morbidly Obese Subjective/Other Information Consult for coumadin diet education. Unable to reach patient via telephone x 2. Nutrition Intervention Follow-Up By: 09/04/20 Additional Comments F/U for intakes, diet education
[2020-09-03] MEDS: dexAMETHasone 4 MG/ML VIAL IV SCH (18:17)
[2020-09-03] MEDS: INSULIN GLARGINE 100 UNITS/ML SUB-Q SCH (23:40)
[2020-09-03] MEDS: PANTOPRAZOLE 80 MG in SODIUM CHLORIDE 0.9% 100 ML IV SCH (23:40)
[2020-09-04 05:39] LABS: Mean Corpuscular HGB Conc 31 % (30-34); Mean Corpuscular Volume 76 fl (79-97); Platelet Count 180 K/mm3 (140-440); Red Blood Count 2.26 M/mm3 (3.65-5.03)
[2020-09-04 05:50] LABS: INR 1.62 (0.87-1.13)
[2020-09-04 05:52] LABS: Red Cell Distribution Width 33.7 % (13.2-15.2)
[2020-09-04 05:59] LABS: Albumin 1.9 g/dL (3.9-5); Calcium 7.5 mg/dL (8.4-10.2)
[2020-09-04 06:07] LABS: Basophils % (Auto) 0.2 % (0.0-1.8); Lymphocytes # (Auto) 0.7 K/mm3 (1.2-5.4); Monocytes # (Auto) 0.7 K/mm3 (0.0-0.8); Monocytes % (Auto) 7.5 % (0.0-7.3)
[2020-09-04 06:17] LABS: Hematocrit 17.1 % (30.3-42.9); Hemoglobin 5.3 gm/dl (10.1-14.3)
[2020-09-04] MEDS: metroNIDAZOLE/NS 500 MG/100 ML 500 MG/100 ML BAG IV SCH ×2 (07:30→13:18)
[2020-09-04] MEDS ORDERED: SODIUM CHLORIDE 0.9% 500 ML 500 ML IV SCH ×2 (08:00→13:03)
--- NOTE | 2020-09-04 09:01 | Progress Note ---
Assessment and Plan 1. Acute kidney injury: DIRK secondary to combination of Vasomotor nephropathy and severe sepsis. Renal US negative for hydro. Urine studies ordered. Monitor renal function. Creatinine level has slightly increased today. Prior Creatinine was 1.2 in 2014. Likely CKD stage 4. Renal prognosis is guarded. Avoid nephrotoxic agents. Meds dosage based on GFR. 2. FEN: Mild hyperkalemia, Kayexalate ordered, monitor. Hyperchloremic Metabolic acidosis, monitor. Monitor lytes. 3. Severe sepsis, POA: Presented with hypothermia, hypotension. Likely secondary to bilateral pneumonia. 4. Severe COVID infection: Followed by ID. 6. Bilateral LE DVT, POA. 7. Microcytic anemia, POA: S/p PRBC. Monitor. 8. Thrombocytopenia, POA. 9. Acute diarrhea: Likely associated to COVID-19 infection. C. difficile test negative. Subjective: Patient was seen and examined at the bedside. Denies any new complaint. General Appearance: General appearance: well-developed, well-nourished, appears stated age, no distress, obese HEENT: ATNC, JAYCE Neck: supple Respiratory: ctab Cardiology: regular, S1S2, no murmur Gastrointestinal: normoactive bowel sounds, no tenderness, not distended Integumentary: no obvious rash Neurologic: alert, moving extremities, slight confusion Ext: trace dependent edema, b/l BKA Subjective Date of service: 09/04/20 Principal diagnosis: COVID Objective - Vital Signs Vital signs: Vital Signs - 12hr 09/03/20 09/03/20 09/04/20 22:00 23:00 00:00 Temperature 97.4 F L Pulse Rate 90 94 H 90 Respiratory 21 23 19 Rate Blood Pressure 128/63 108/64 108/64 O2 Sat by Pulse 93 95 Oximetry 09/04/20 09/04/20 09/04/20 01:00 02:00 03:00 Temperature Pulse Rate 70 84 67 Respiratory 22 22 22 Rate Blood Pressure 108/64 108/64 108/64 O2 Sat by Pulse 97 94 95 Oximetry 09/04/20 09/04/20 09/04/20 04:00 05:00 06:00 Temperature 97.4 F L Pulse Rate 69 91 H 87 Respiratory 22 17 15 Rate Blood Pressure 108/64 108/64 108/64 O2 Sat by Pulse 95 96 Oximetry - Lab 09/04/20 18:58 09/04/20 05:18 Most recent lab results Calcium 7.5 mg/dL (8.4-10.2) L 09/04/20 05:18 Medications & Allergies - Medications Allergies/Adverse Reactions: Allergies No Known Allergies Allergy (Unverified 02/14/14 19:23) Home Medications: Home Medications Medication Instructions Recorded Confirmed Last Taken Type Aspirin [[place] Aspirin] 81 mg PO DAILY 02/14/14 02/22/14 02/14/14 11:00 History Ferrous Sulfate [Feosol 325mg] 325 mg PO DAILY 02/14/14 02/22/14 02/14/14 11:00 History Sertraline [Zoloft] 50 mg PO DAILY 02/14/14 02/22/14 02/14/14 11:00 History amLODIPine 5 mg PO DAILY 02/14/14 02/22/14 02/14/14 11:00 History hydroCHLOROthiazide 25 mg PO DAILY 02/14/14 02/22/14 02/14/14 11:00 History [Hydrochlorothiazide] lisinopriL [Zestril TAB] 10 mg PO DAILY 02/14/14 02/22/14 02/14/14 11:00 History Insulin NPH Hum/Reg Insulin Hm 100 units SQ BID 02/22/14 02/23/14 Unknown History [Humulin 70-30 Vial] Insulin Regular, Human [HumuLIN R] 7 unit SQ AC 02/22/14 02/23/14 Unknown History Active Medications: Generic Name Dose Route Start Last Admin Trade Name Freq PRN Reason Stop Dose Admin Acetaminophen 650 mg 09/02/20 00:30 Tylenol PO Q6H PRN Pain, Mild (1-3) Aspirin 81 mg 09/02/20 10:00 09/03/20 11:50 Baby Aspirin PO 81 mg DAILY JAE Administration Dexamethasone 6 mg 09/03/20 18:00 09/03/20 18:17 Decadron IV 09/12/20 10:01 6 mg DAILY JAE Administration Ferrous Sulfate 325 mg 09/02/20 10:00 09/03/20 11:49 Feosol PO 325 mg DAILY JAE Administration Hydromorphone HCl 0.25 mg 09/02/20 00:30 Dilaudid IV Q4H PRN Pain, Moderate (4-6) Cefepime HCl 1 gm in 100 mls @ 200 mls/hr 09/02/20 11:30 09/03/20 23:40 Cefepime/Ns 1 Gm/100 Ml IV 200 mls/hr Q12HR JAE Administration Protocol Metronidazole 500 mg in 100 mls @ 100 mls/hr 09/02/20 14:00 09/04/20 07:30 Flagyl 500 Mg/100 Ml IV 100 mls/hr Q8HR JAE Administration Protocol Pantoprazole Sodium 80 mg/ 100 mls @ 10 mls/hr 09/03/20 18:30 09/03/20 23:40 Sodium Chloride IV 8 mg/hr DIRECT JAE 10 mls/hr Administration 8 MG/HR Sodium Chloride 500 mls @ 0 mls/hr 09/04/20 08:00 Nacl 0.9% 500 Ml IV 09/04/20 18:00 ONCE JAE As Directed Insulin Glargine 10 units 09/03/20 22:00 09/03/20 23:40 Lantus SUB-Q 10 units QHS JAE Administration Insulin Human Lispro 0 unit 09/03/20 11:30 09/03/20 23:40 Humalog SUB-Q 3 unit ACHS JAE Administration Protocol Sertraline HCl 50 mg 09/02/20 10:00 09/03/20 11:49 Zoloft PO 50 mg DAILY JAE Administration Sodium Chloride 10 ml 09/02/20 10:00 09/03/20 23:41 Sodium Chloride Flush Syringe 10 Ml IV 10 ml BID JAE Administration Sodium Chloride 10 ml 09/02/20 00:30 Sodium Chloride Flush Syringe 10 Ml IV PRN PRN LINE FLUSH
[2020-09-04] MEDS: FERROUS SULFATE 325 MG TAB PO SCH (09:18)
[2020-09-04] MEDS: ASPIRIN 81 MG TAB CHEW PO SCH (09:18)
[2020-09-04] MEDS: INSULIN LISPRO 100 UNIT/ML VIAL 3 mL SUB-Q SCH ×4 (09:18→22:15)
[2020-09-04] MEDS: SERTRALINE 50 MG TAB PO SCH (09:18)
[2020-09-04] MEDS: CEFEPIME/NS 1 GM/100 ML 1 GM/100 ML BAG IV SCH (09:19)
[2020-09-04] MEDS: dexAMETHasone 4 MG/ML VIAL IV SCH (09:19)
[2020-09-04] MEDS ORDERED: SODIUM POLYSTYRENE 15 GM/60 ML ORAL LIQD PR SCH (10:00)
--- NOTE | 2020-09-04 13:06 | Progress Note ---
Assessment and Plan Assessment and plan: 64 YO Female with HTN, DM, Anemia, PVD, Nicotine Dependence, positive coronavirus test on presented to the emergency room for further evaluation. Patient states that she has experienced subjective fever, generalized weakness, body aches, shortness of breath, nausea, multiple loose stools, lower extremity edema over the past 1 week with progressively worsening symptoms over the past 3 to 4 days prior to presentation. Patient was brought to the emergency room as a result. Here, patient found to be hypotensive with a systolic blood pressure ranging from 53-94. Patient was also hypothermic with a body temperature of 93.3 F. Patient met criteria for sepsis protocol and found to have bilateral pneumonia, metabolic acidosis, acute kidney injury. Patient admitted to telemetry due to increased risk of multisystem decompensation. Patient initiated on coronavirus protocol. Coronavirus PCR has been ordered and is pending at time of admission. Patient remained hypotensive in spite of IV fluid resuscitation therapy. Patient subsequently upgraded to IMCU. 09/03. While in the ER, patient had an ultrasound Doppler performed that showed bilateral DVT involving the iliac veins. Patient was started on heparin drip. ID consulted for COVID-19 and nephrology consulted for DIRK. Patient seen and examined at bedside this morning. She has no complaints this morning. Her hemoglobin dropped to 6.4 this morning. Patient will get transfused 1 unit of PRBCs. Later this p.m., was notified by nurse that patient is having tarry dark stool and hematemesis. Heparin drip discontinued. Patient started on PPI drip and made n.p.o. GI is has been consulted. Patient will need to have an upper endoscopy. She has bilateral lower extremity DVT and will need vascular surgery evaluation to determine if she is a candidate for IVC filter placement. 09/04. Patient seen and examined at bedside this morning. Labs reviewed showed hemoglobin 5.3. Patient will receive 2 units PRBCs. FFP also ordered. GI evaluation pending. Continue PPIs. Vascular surgeon to see to determine if patient is a candidate for IVC filter placement for DVT. Problems --Sepsis Current Visit: Yes Status: Acute Qualifiers: Acute renal failure type: with acute tubular necrosis Plan to address problem: Continue IV antibiotics Blood culture pending ID recommendations appreciated --Bilateral pneumonia Current Visit: Yes Status: Acute Plan to address problem: From Covid Continue antibiotics Dexamethasone ID recommendations appreciated --COVID-19 Current Visit: Yes Status: Acute Plan to address problem: Coronavirus protocol: Coronavirus PCR ordered and is pending at time of admission, contact precaution, isolation precautions, prone positioning while in bed, IV steroid therapy, IV antibiotic therapy. Supportive care. --Acute on chronic anemia Current Visit: Yes Status: Acute on chronic Plan to address problem: Status post transfusion of 1 unit PRBC Hemoglobin dropped to 5.3 today. We will transfuse additional 2 units PRBC FFP ordered Continue to hold anticoagulation PPI. GI consult pending H/H q8 --GI bleed Current Visit: No Status: Acute Plan to address problem: Discontinued heparin due to GI bleed Give 1 unit FFP On PPI N.p.o. NG tube if patient has another episode of vomiting GI evaluation pending --Acute kidney injury (DIRK) with acute tubular necrosis (ATN) Current Visit: Yes Status: Acute Plan to address problem: Continue to monitor renal function Nephrology following closely --Hypernatremia Current Visit: Yes Status: Acute Plan to address problem: Start on D5 half NS as patient is currently n.p.o. Nephrology on board --Bilateral lower extremity DVT Current Visit: Yes Status: Acute Qualifiers: Encounter type: initial encounter Qualified Code(s): T68.XXXA - Hypo thermia, initial encounter Plan to address problem: Holding heparin due to GI bleed Consult vascular surgeon for consideration of IVC filter placement --Diabetes Current Visit: Yes Status: Acute Plan to address problem: Sliding-scale insulin therapy, Accu-Chek, hypoglycemia protocol, consistent carbohydrate diet. --DVT prophylaxis Current Visit: No Status: Acute Plan to address problem: Discontinue heparin due to GI bleed --Advance care planning Current Visit: Yes Status: Acute Plan to address problem: Disease education conducted, prognosis discussed, patient is full code, care plan discussed, patient knowledges understanding and agreement with care plan. +30 minutes. --Nicotine dependence Current Visit: Yes Status: Acute Qualifiers: Nicotine product type: cigarettes Substance use status: in withdrawal Qualified Code(s): F17.213 - Nicotine dependence, cigarettes, with withdrawal Plan to address problem: Supportive care, smoking cessation counseling, behavior change counseling, +15 minutes. History Interval history: Patient seen and examined at bedside this morning Hemoglobin dropped to 5.3 today. Getting 2 units PRBCs On PPI drip GI evaluation pending Off heparin drip since yesterday. Vascular surgery consulted for IVC filter placement Vitals stable Hospitalist Physical - Physical exam Narrative exam: VITAL SIGNS: Reviewed. GENERAL: Awake and alert on response to questions HEAD: No signs of head trauma. EYES: Pupils are equal. Extraocular motions intact. EARS: Hearing grossly intact. MOUTH: Oropharynx is normal. NECK: No adenopathy, no JVD. CHEST: Chest with diminished breath sounds bilaterally. No wheezes, rales, or rhonchi. CARDIAC: Regular rate and rhythm. S1 and S2, without murmurs, gallops, or rubs. VASCULAR: No Edema. Peripheral pulses normal and equal in all extremities. ABDOMEN: Soft, non tender and non distended. No rebound or guarding, and no masses palpated. Bowel Sounds normal. MUSCULOSKELETAL: Good range of motion of all major joints. Extremities without clubbing, cyanosis or edema. NEUROLOGIC EXAM: Alert and oriented x3. No focal neurologic deficits PSYCHIATRIC: Stable mood SKIN: No obvious lesions - Constitutional Vitals: Temp Pulse Resp BP Pulse Ox 97.8 F 94 H 18 154/103 98 09/04/20 12:51 09/04/20 12:51 09/04/20 12:51 09/04/20 12:51 09/04/20 12:51 General appearance: Present: mild distress Results - Labs CBC & Chem 7: 09/04/20 05:18 09/04/20 05:18 Labs: Laboratory Last Values WBC 9.0 K/mm3 (4.5-11.0) 09/04/20 05:18 RBC 2.26 M/mm3 (3.65-5.03) L 09/04/20 05:18 Hgb 5.3 gm/dl (10.1-14.3) L* 09/04/20 05:18 Hct 17.1 % (30.3-42.9) L* 09/04/20 05:18 MCV 76 fl (79-97) L 09/04/20 05:18 MCH 24 pg (28-32) L 09/04/20 05:18 MCHC 31 % (30-34) 09/04/20 05:18 RDW 33.7 % (13.2-15.2) H 09/04/20 05:18 Plt Count 180 K/mm3 (140-440) 09/04/20 05:18 Lymph % (Auto) 8.0 % (13.4-35.0) L 09/04/20 05:18 [place] % (Auto) 7.5 % (0.0-7.3) H 09/04/20 05:18 Eos % (Auto) 0.0 % (0.0-4.3) 09/04/20 05:18 Baso % (Auto) 0.2 % (0.0-1.8) 09/04/20 05:18 Lymph # (Auto) 0.7 K/mm3 (1.2-5.4) L 09/04/20 05:18 [place] # (Auto) 0.7 K/mm3 (0.0-0.8) 09/04/20 05:18 Eos # (Auto) 0.0 K/mm3 (0.0-0.4) 09/04/20 05:18 Baso # (Auto) 0.0 K/mm3 (0.0-0.1) 09/04/20 05:18 Add Manual Diff Complete 09/03/20 05:17 Total Counted 100 09/03/20 05:17 Seg Neutrophils % 84.3 % (40.0-70.0) H 09/04/20 05:18 Seg Neuts % (Manual) 76.0 % (40.0-70.0) H 09/03/20 05:17 Band Neutrophils % 0 % 09/03/20 05:17 Lymphocytes % (Manual) 18.0 % (13.4-35.0) 09/03/20 05:17 Reactive Lymphs % (Man) 0 % 09/03/20 05:17 Monocytes % (Manual) 6.0 % (0.0-7.3) 09/03/20 05:17 Eosinophils % (Manual) 0 % (0.0-4.3) 09/03/20 05:17 Basophils % (Manual) 0 % (0.0-1.8) 09/03/20 05:17 Metamyelocytes % 0 % 09/03/20 05:17 Myelocytes % 0 % 09/03/20 05:17 Promyelocytes % 0 % 09/03/20 05:17 Blast Cells % 0 % 09/03/20 05:17 Nucleated RBC % Not Reportable 09/03/20 05:17 Seg Neutrophils # 7.6 K/mm3 (1.8-7.7) 09/04/20 05:18 Seg Neutrophils # Man 7.8 K/mm3 (1.8-7.7) H 09/03/20 05:17 Band Neutrophils # 0.0 K/mm3 09/03/20 05:17 Lymphocytes # (Manual) 1.8 K/mm3 (1.2-5.4) 09/03/20 05:17 Abs React Lymphs (Man) 0.0 K/mm3 09/03/20 05:17 Monocytes # (Manual) 0.6 K/mm3 (0.0-0.8) 09/03/20 05:17 Eosinophils # (Manual) 0.0 K/mm3 (0.0-0.4) 09/03/20 05:17 Basophils # (Manual) 0.0 K/mm3 (0.0-0.1) 09/03/20 05:17 Metamyelocytes # 0.0 K/mm3 09/03/20 05:17 Myelocytes # 0.0 K/mm3 09/03/20 05:17 Promyelocytes # 0.0 K/mm3 09/03/20 05:17 Blast Cells # 0.0 K/mm3 09/03/20 05:17 WBC Morphology Not Reportable 09/03/20 05:17 Hypersegmented Neuts Not Reportable 09/03/20 05:17 Hyposegmented Neuts Not Reportable 09/03/20 05:17 Hypogranular Neuts Not Reportable 09/03/20 05:17 Smudge Cells Not Reportable 09/03/20 05:17 Toxic Granulation Not Reportable 09/03/20 05:17 Toxic Vacuolation Not Reportable 09/03/20 05:17 Dohle Bodies Not Reportable 09/03/20 05:17 Pelger-Huet Anomaly Not Reportable 09/03/20 05:17 Ignacia Rods Not Reportable 09/03/20 05:17 Platelet Estimate Consistent w auto 09/03/20 05:17 Clumped Platelets Not Reportable 09/03/20 05:17 Plt Clumps, EDTA Not Reportable 09/03/20 05:17 Large Platelets Not Reportable 09/03/20 05:17 Giant Platelets Not Reportable 09/03/20 05:17 Platelet Satelliting Not Reportable 09/03/20 05:17 Plt Morphology Comment Not Reportable 09/03/20 05:17 RBC Morphology Not Reportable 09/03/20 05:17 Dimorphic RBCs Not Reportable 09/03/20 05:17 Polychromasia Not Reportable 09/03/20 05:17 Hypochromasia 1+ 09/03/20 05:17 Poikilocytosis Not Reportable 09/03/20 05:17 Anisocytosis 3+ 09/03/20 05:17 Microcytosis 1+ 09/03/20 05:17 Macrocytosis Not Reportable 09/03/20 05:17 Spherocytes Not Reportable 09/03/20 05:17 Pappenheimer Bodies Not Reportable 09/03/20 05:17 Sickle Cells Not Reportable 09/03/20 05:17 Target Cells Not Reportable 09/03/20 05:17 Tear Drop Cells Not Reportable 09/03/20 05:17 Ovalocytes Few 09/03/20 05:17 Helmet Cells Not Reportable 09/03/20 05:17 Horvath-Scurry Bodies Not Reportable 09/03/20 05:17 [place] Rings Not Reportable 09/03/20 05:17 Flora Cells 1+ 09/03/20 05:17 Bite Cells Not Reportable 09/03/20 05:17 Crenated Cell Not Reportable 09/03/20 05:17 Elliptocytes Not Reportable 09/03/20 05:17 Acanthocytes (Spur) Not Reportable 09/03/20 05:17 Rouleaux Not Reportable 09/03/20 05:17 Hemoglobin C Crystals Not Reportable 09/03/20 05:17 Schistocytes 1+ 09/03/20 05:17 Malaria parasites Not Reportable 09/03/20 05:17 Molina Bodies Not Reportable 09/03/20 05:17 Hem Pathologist Commnt No 09/03/20 05:17 PT 19.6 Sec. (12.2-14.9) H 09/04/20 05:18 INR 1.62 (0.87-1.13) H 09/04/20 05:18 APTT 29.2 Sec. (24.2-36.6) 09/02/20 13:52 D-Dimer 1076.18 ng/mlDDU (0-234) H 09/01/20 21:55 Heparin Anti-Xa Level 0.94 U.I./ml (0.3-0.7) H 09/03/20 05:17 Sodium 149 mmol/L (137-145) H 09/04/20 05:18 Potassium 5.2 mmol/L (3.6-5.0) H 09/04/20 05:18 Chloride 125.6 mmol/L (98-107) H 09/04/20 05:18 Carbon Dioxide 14 mmol/L (22-30) L 09/04/20 05:18 Anion Gap 15 mmol/L 09/04/20 05:18 BUN 86 mg/dL (7-17) H 09/04/20 05:18 Creatinine 2.3 mg/dL (0.6-1.2) H 09/04/20 05:18 Estimated GFR 26 ml/min 09/04/20 05:18 BUN/Creatinine Ratio 37 % 09/04/20 05:18 Glucose 232 mg/dL (65-100) H 09/04/20 05:18 POC Glucose 247 mg/dL (70-105) H 09/04/20 12:08 Lactic Acid 0.60 mmol/L (0.7-2.0) L 09/02/20 08:10 Calcium 7.5 mg/dL (8.4-10.2) L 09/04/20 05:18 Ferritin 313.5 ng/mL (10.0-200.0) H 09/01/20 21:55 Total Bilirubin 0.30 mg/dL (0.1-1.2) 09/04/20 05:18 AST 29 units/L (5-40) 09/04/20 05:18 ALT 18 units/L (7-56) 09/04/20 05:18 Alkaline Phosphatase 144 units/L (35-129) H 09/04/20 05:18 Lactate Dehydrogenase 435 units/L (91-180) H 09/01/20 21:55 C-Reactive Protein 2.30 mg/dL (0.00-1.30) H 09/01/20 21:55 NT-Pro-B Natriuret Pep 26981 pg/mL (0-900) H 09/01/20 21:55 Total Protein 4.1 g/dL (6.3-8.2) L D 09/04/20 05:18 Albumin 1.9 g/dL (3.9-5) L 09/04/20 05:18 Albumin/Globulin Ratio 0.9 % 09/04/20 05:18 Procalcitonin 0.10 ng/mL (<0.15) 09/01/20 21:55 TSH 0.735 mlU/mL (0.270-4.200) 09/02/20 00:45 Free T4 0.92 ng/dL (0.76-1.46) 09/02/20 00:45 Free T4 0.94 ng/dL (0.76-1.46) 09/02/20 00:45 PTH Intact 820.4 pg/mL (15-65) H 09/04/20 05:18 Urine Color Elena (Yellow) 09/02/20 03:44 Urine Turbidity Cloudy (Clear) 09/02/20 03:44 Urine pH 7.0 (5.0-7.0) 09/02/20 03:44 Ur Specific [place] 1.015 (1.003-1.030) 09/02/20 03:44 Urine Protein >500 mg/dL (Negative) 09/02/20 03:44 Urine Glucose (UA) Neg mg/dL (Negative) 09/02/20 03:44 Urine Ketones Neg mg/dL (Negative) 09/02/20 03:44 Urine Blood Neg (Negative) 09/02/20 03:44 Urine Nitrite Neg (Negative) 09/02/20 03:44 Urine Bilirubin Neg (Negative) 09/02/20 03:44 Urine Urobilinogen < 2.0 mg/dL (<2.0) 09/02/20 03:44 Ur Leukocyte Esterase Neg (Negative) 09/02/20 03:44 Urine WBC (Auto) < 1.0 /HPF (0.0-6.0) 09/02/20 03:44 Urine RBC (Auto) < 1.0 /HPF (0.0-6.0) 09/02/20 03:44 U Epithel Cells (Auto) < 1.0 /HPF (0-13.0) 09/02/20 03:44 Urine Bacteria (Auto) 2+ /HPF (Negative) 09/02/20 03:44 Urine Mucus Few /HPF 09/02/20 03:44 C. difficile Tox (PCR) Negative (Negative) 09/02/20 13:05 SARS-CoV-2 IgG Ab Nonreactive (NonReactive) 09/02/20 08:10 Blood Type O POSITIVE 09/01/20 23:15 Antibody Screen Negative 09/01/20 23:15 Crossmatch See Detail 09/01/20 23:15 Microbiology: Microbiology 09/01/20 23:27 Peripheral/Venous Blood Culture - Preliminary NO GROWTH AFTER 48 HOURS 09/01/20 23:44 Peripheral/Venous Blood Culture - Preliminary NO GROWTH AFTER 48 HOURS 09/03/20 14:00 Stool Stool Occult Blood (RAMSEY) - Final [place]/IV: Voiding Method Incontinent IV Catheter Type [Right Upper INT / Saline Lock arm] IV Catheter Type [Right INT / Saline Lock External Jugular] Active Medications - Current Medications Current Medications: Generic Name Dose Route Start Last Admin Trade Name Freq PRN Reason Stop Dose Admin Acetaminophen 650 mg 09/02/20 00:30 Tylenol PO Q6H PRN Pain, Mild (1-3) Aspirin 81 mg 09/02/20 10:00 09/04/20 09:18 Baby Aspirin PO Not Given DAILY [facility] Dexamethasone 6 mg 09/03/20 18:00 09/04/20 09:19 Decadron IV 09/12/20 10:01 6 mg DAILY JAE Administration Ferrous Sulfate 325 mg 09/02/20 10:00 09/04/20 09:18 Feosol PO Not Given DAILY JAE Hydromorphone HCl 0.25 mg 09/02/20 00:30 Dilaudid IV Q4H PRN Pain, Moderate (4-6) Cefepime HCl 1 gm in 100 mls @ 200 mls/hr 09/02/20 11:30 09/04/20 09:19 Cefepime/Ns 1 Gm/100 Ml IV 200 mls/hr Q12HR JAE Administration Protocol Metronidazole 500 mg in 100 mls @ 100 mls/hr 09/02/20 14:00 09/04/20 07:30 Flagyl 500 Mg/100 Ml IV 100 mls/hr Q8HR JAE Administration Protocol Pantoprazole Sodium 80 mg/ 100 mls @ 10 mls/hr 09/03/20 18:30 09/03/20 23:40 Sodium Chloride IV 8 mg/hr DIRECT JAE 10 mls/hr Administration 8 MG/HR Sodium Chloride 500 mls @ 0 mls/hr 09/04/20 08:00 Nacl 0.9% 500 Ml IV 09/04/20 18:00 ONCE JAE As Directed Insulin Glargine 10 units 09/03/20 22:00 09/03/20 23:40 Lantus SUB-Q 10 units QHS JAE Administration Insulin Human Lispro 0 unit 09/03/20 11:30 09/04/20 12:56 Humalog SUB-Q 4 unit ACHS JAE Administration Protocol Sertraline HCl 50 mg 09/02/20 10:00 09/04/20 09:18 Zoloft PO Not Given DAILY JAE Sodium Chloride 10 ml 09/02/20 10:00 09/04/20 09:20 Sodium Chloride Flush Syringe 10 Ml IV 10 ml BID JAE Administration Sodium Chloride 10 ml 09/02/20 00:30 Sodium Chloride Flush Syringe 10 Ml IV PRN PRN LINE FLUSH Sodium Polystyrene Sulfonate 30 gm 09/04/20 10:00 09/04/20 09:19 Kionex TX 09/04/20 14:00 30 gm ONCE JAE Administration Nutrition/Malnutrition Assess - Dietary Evaluation Nutrition/Malnutrition Findings: Nutrition Notes Start: 09/03/20 13:19 Freq: Status: Active Protocol: Document 09/04/20 10:42 AL (Rec: 09/04/20 10:46 AL [id number]) Co-Sign 09/04/20 10:42 Nutrition Notes Initial or Follow up Brief Note Current Diagnosis CKD(stage I-IV),Diabetes, Sepsis,Hypertension Other Pertinent Diagnosis Pneu, anemia, GI bleed Pmhx: covid +, bilateral BKA, Current Diet NPO Subjective/Other Information Yesterday, RN stated that patient was eating well. Patient is currently NPO for procedure today. Coumadin was d/c, diet education is no longer appropriate at this time. Nutrition Intervention Follow-Up By: 09/07/20 Additional Comments F/U: intakes, ONS needs
[2020-09-04] MEDS ORDERED: D5W/0.45% NACL 1,000 ML IV SCH (13:07)
--- NOTE | 2020-09-04 13:37 | Progress Note ---
Assessment and Plan Cultures: Blood culture no growth today. SARS CoV2 PCR positive [facility] 08/24/2020. Assessment: 64 years old female with history of diabetes mellitus, hypertension, peripheral vascular disease status post bilateral BKA, chronic kidney disease, tobacco use, tested positive for COVID-19 outpatient the day before admission, admitted on 09/01/2020 due to a week history of cough, generalized weakness, body aches, subjective fever, shortness of breath, nausea, multiple diarrheic episodes, patient recently admitted to [facility] from 08/23/2020 until 08/27/2020 for symptomatic anemia, hemoglobin at 4.5, refused further work-up and tested positive for COVID-19, asymptomatic: #Severe sepsis: Hypothermia and hypotension improving, likely due to bilateral pneumonia +/-severe anemia. #Severe COVID pneumonia: Patient tested positive at [facility] on 08/24/2020. Initial ferritin normal, D-dimer elevated 2.4. D-dimer here 08/10/1976. Ferritin slightly elevated 313. Chest x-ray shows extensive bilateral airspace disease. Patient is currently on room air. There may be a component of volume overload. Echocardiogram at [facility] EF 43%. BNP 70,000. Procalcitonin normal, hence I doubt bacterial component. #Elevated LFTs: from COVID #Hypoxia: now on 2 L NC, likely due to covid #DIRK on CKD: from COVID #Acute thrombocytopenia: Platelets 08/27/2020 were 146. Likely due to COVID-19 infection. #Acute diarrhea: Multiple episodes. Likely associated to COVID-19 infection. C. difficile toxin PCR negative. #Bilateral lower extremity DVT: Anticoagulation on hold due to severe anemia #Severe anemia: Patient refused GI bleed work-up at [facility] Recommendations: -Continue Solu-Medrol x 10 days -SARS CoV-2 IgG negative, patient may benefit from COVID plasma, please order COVID-19 convalescent plasma -No indication for remdesivir as pt is symptomatic for over 10 days so no benefit -Monitor inflammatory markers - ferritin, Ddimer, CRP, LDH -Stop cefepime and metronidazole IV -blood cultures negative, C. difficile negative -Check MRSA PCR - pending -Anticoagulation on hold due to severe anemia, consider IVC filter placement High risk mortality All laboratory, cultures and imaging were reviewed. Dr. Santiago rounding this weekend Will follow Beba Parker MD Infectious Diseases [employer] [facility] ([facility]) M [phone] O [phone] Subjective Date of service: 09/04/20 Principal diagnosis: COVID Interval history: Patient reports she is feeling better, no fever, currently on room air, receiving blood transfusion Objective - Exam Narrative Exam: Physical Exam: reviewed ED and hospitalist notes, limited due to conservation of PPE and decrease risk of transmission. General appearance: limited due to conservation of PPE Eyes: limited due to conservation of PPE HENT: Atraumatic; limited due to conservation of PPE Lungs: limited due to conservation of PPE CV: limited due to conservation of PPE Abdomen: limited due to conservation of PPE Extremities: limited due to conservation of PPE Skin: limited due to conservation of PPE Psych: limited due to conservation of PPE Neuro: limited due to conservation of PPE - Constitutional Vitals: Vital Signs Temp Pulse Resp BP Pulse Ox 97.8 F 70 16 154/103 99 09/04/20 13:21 09/04/20 13:21 09/04/20 13:21 09/04/20 13:21 09/04/20 13:21 Temperature -Last 24 Hours Temperature 97.8 F Temperature 97.8 F Temperature 97.6 F Temperature 97.5 F Temperature 97.7 F Temperature 97.5 F Temperature 97.9 F Temperature 97.4 F Temperature 97.4 F Temperature 97.3 F Temperature 98.1 F Temperature 98.1 F - Labs CBC & Chem 7: 09/04/20 05:18 09/04/20 05:18 Labs: Abnormal lab results 09/01/20 09/03/20 09/03/20 Range/Units 23:15 11:43 16:21 RBC (3.65-5.03) M/mm3 Hgb (10.1-14.3) gm/dl Hct (30.3-42.9) % MCV (79-97) fl MCH (28-32) pg RDW (13.2-15.2) % Lymph % (Auto) (13.4-35.0) % [place] % (Auto) (0.0-7.3) % Lymph # (Auto) (1.2-5.4) K/mm3 Seg Neutrophils % (40.0-70.0) % PT (12.2-14.9) Sec. INR (0.87-1.13) Sodium (137-145) mmol/L Potassium (3.6-5.0) mmol/L Chloride (98-107) mmol/L Carbon Dioxide (22-30) mmol/L BUN (7-17) mg/dL Creatinine (0.6-1.2) mg/dL Glucose (65-100) mg/dL POC Glucose 242 H 280 H (70-105) mg/dL Calcium (8.4-10.2) mg/dL Alkaline Phosphatase (35-129) units/L Total Protein (6.3-8.2) g/dL Albumin (3.9-5) g/dL PTH Intact (15-65) pg/mL Crossmatch See Detail 09/03/20 09/04/20 09/04/20 Range/Units 23:37 05:18 05:18 RBC 2.26 L (3.65-5.03) M/mm3 Hgb 5.3 L* (10.1-14.3) gm/dl Hct 17.1 L* (30.3-42.9) % MCV 76 L (79-97) fl MCH 24 L (28-32) pg RDW 33.7 H (13.2-15.2) % Lymph % (Auto) 8.0 L (13.4-35.0) % [place] % (Auto) 7.5 H (0.0-7.3) % Lymph # (Auto) 0.7 L (1.2-5.4) K/mm3 Seg Neutrophils % 84.3 H (40.0-70.0) % PT 19.6 H (12.2-14.9) Sec. INR 1.62 H (0.87-1.13) Sodium (137-145) mmol/L Potassium (3.6-5.0) mmol/L Chloride (98-107) mmol/L Carbon Dioxide (22-30) mmol/L BUN (7-17) mg/dL Creatinine (0.6-1.2) mg/dL Glucose (65-100) mg/dL POC Glucose 228 H (70-105) mg/dL Calcium (8.4-10.2) mg/dL Alkaline Phosphatase (35-129) units/L Total Protein (6.3-8.2) g/dL Albumin (3.9-5) g/dL PTH Intact (15-65) pg/mL Crossmatch 09/04/20 09/04/20 09/04/20 Range/Units 05:18 05:18 06:33 RBC (3.65-5.03) M/mm3 Hgb (10.1-14.3) gm/dl Hct (30.3-42.9) % MCV (79-97) fl MCH (28-32) pg RDW (13.2-15.2) % Lymph % (Auto) (13.4-35.0) % [place] % (Auto) (0.0-7.3) % Lymph # (Auto) (1.2-5.4) K/mm3 Seg Neutrophils % (40.0-70.0) % PT (12.2-14.9) Sec. INR (0.87-1.13) Sodium 149 H (137-145) mmol/L Potassium 5.2 H (3.6-5.0) mmol/L Chloride 125.6 H (98-107) mmol/L Carbon Dioxide 14 L (22-30) mmol/L BUN 86 H (7-17) mg/dL Creatinine 2.3 H (0.6-1.2) mg/dL Glucose 232 H (65-100) mg/dL POC Glucose 224 H (70-105) mg/dL Calcium 7.5 L (8.4-10.2) mg/dL Alkaline Phosphatase 144 H (35-129) units/L Total Protein 4.1 L D (6.3-8.2) g/dL Albumin 1.9 L (3.9-5) g/dL PTH Intact 820.4 H (15-65) pg/mL Crossmatch 09/04/20 09/04/20 Range/Units 09:03 12:08 RBC (3.65-5.03) M/mm3 Hgb (10.1-14.3) gm/dl Hct (30.3-42.9) % MCV (79-97) fl MCH (28-32) pg RDW (13.2-15.2) % Lymph % (Auto) (13.4-35.0) % [place] % (Auto) (0.0-7.3) % Lymph # (Auto) (1.2-5.4) K/mm3 Seg Neutrophils % (40.0-70.0) % PT (12.2-14.9) Sec. INR (0.87-1.13) Sodium (137-145) mmol/L Potassium (3.6-5.0) mmol/L Chloride (98-107) mmol/L Carbon Dioxide (22-30) mmol/L BUN (7-17) mg/dL Creatinine (0.6-1.2) mg/dL Glucose (65-100) mg/dL POC Glucose 264 H 247 H (70-105) mg/dL Calcium (8.4-10.2) mg/dL Alkaline Phosphatase (35-129) units/L Total Protein (6.3-8.2) g/dL Albumin (3.9-5) g/dL PTH Intact (15-65) pg/mL Crossmatch
[2020-09-04] MEDS: PANTOPRAZOLE 80 MG in SODIUM CHLORIDE 0.9% 100 ML IV SCH (15:02)
[2020-09-04 19:09] LABS: Hematocrit 27.4 % (30.3-42.9); Hemoglobin 8.7 gm/dl (10.1-14.3)
--- NOTE | 2020-09-04 20:35 | Consultation ---
History of Present Illness - Reason for Consult Consult date: 09/04/20 GI bleed Requesting physician: KELTON JENSEN - History of Present Illness Ms Foreman in a 64 yo BF admitted to [facility] with COVID-19, on whom I am consulted for GI bleed. Pt had coffee ground emesis described yesterday, and had dark stool. Pt was hosp at [facility] from 08/24 - 08/27, dx'd with Covid, and found to be anemic with Hgb = 5.4. She was given blood, seen by GI, and had no daria GI bl eed. She was iron deficient with sat'n = 4%. No stool for occult blood done. She came to [facility] with cough, was hosp for COVID, and was anemic. She was admitted with Hgb 7.9, that dropped to 6.4 yesterday. She had been found to have bilat DVTs and was started on warfarin with INR starting to increase. She has developed diarrhea, with a rectal tube in place showing dark liquid greenish stool in bag. She is laconic almost to the point of nonresponsive, but denies abd pain, N/V. Called daughter, but she was unhelpful in trying to give hx and basically hung up after approx 1 minute. Hemodynamically stable. Meds reviewed. Past History Past Medical History: anemia, diabetes, hypertension, PVD, other (Erosive esophagitis - by EGD in 2014) Past Surgical History: Other (Bilateral BKA) Social history: single. denies: smoking, alcohol abuse Family history: hypertension Medications and Allergies Allergies Allergy/AdvReac Type Severity Reaction Status Date / Time No Known Allergies Allergy Unverified 02/14/14 19:23 Home Medications Medication Instructions Recorded Confirmed Last Taken Type RX: Aspirin [[place] Aspirin] 81 mg PO DAILY 02/14/14 02/22/14 02/14/14 11:00 History RX: Ferrous Sulfate [Feosol 325mg] 325 mg PO DAILY 02/14/14 02/22/14 02/14/14 11:00 History RX: Sertraline [Zoloft] 50 mg PO DAILY 02/14/14 02/22/14 02/14/14 11:00 History RX: amLODIPine 5 mg PO DAILY 02/14/14 02/22/14 02/14/14 11:00 History RX: hydroCHLOROthiazide 25 mg PO DAILY 02/14/14 02/22/14 02/14/14 11:00 History [Hydrochlorothiazide] RX: lisinopriL [Zestril TAB] 10 mg PO DAILY 02/14/14 02/22/14 02/14/14 11:00 History Insulin NPH Hum/Reg Insulin Hm 100 units SQ BID 02/22/14 02/23/14 Unknown History [Humulin 70-30 Vial] Insulin Regular, Human [HumuLIN R] 7 unit SQ AC 02/22/14 02/23/14 Unknown History Active Meds: Active Medications Acetaminophen (Tylenol) 650 mg PO Q6H PRN PRN Reason: Pain, Mild (1-3) Aspirin (Baby Aspirin) 81 mg PO DAILY [facility] Last Admin: 09/04/20 09:18 Dose: Not Given Documented by: Dexamethasone (Decadron) 6 mg IV DAILY [facility] Stop: 09/12/20 10:01 Last Admin: 09/04/20 09:19 Dose: 6 mg Documented by: Ferrous Sulfate (Feosol) 325 mg PO DAILY [facility] Last Admin: 09/04/20 09:18 Dose: Not Given Documented by: Hydromorphone HCl (Dilaudid) 0.25 mg IV Q4H PRN PRN Reason: Pain, Moderate (4-6) Pantoprazole Sodium 80 mg/ (Sodium Chloride) 100 mls @ 10 mls/hr IV DIRECT JAE Last Admin: 09/04/20 15:02 Dose: 8 mg/hr, 10 mls/hr Documented by: Sodium Chloride (Nacl 0.9% 500 Ml) 500 mls @ 0 mls/hr IV ONCE JAE Dextrose/Sodium Chloride (D5/0.45ns) 1,000 mls @ 75 mls/hr IV DIRECT JAE Insulin Glargine (Lantus) 10 units SUB-Q QHS [facility] Last Admin: 09/03/20 23:40 Dose: 10 units Documented by: Insulin Human Lispro (Humalog) 0 unit SUB-Q ACHS [facility]; Protocol Last Admin: 09/04/20 15:53 Dose: 3 unit Documented by: Sertraline HCl (Zoloft) 50 mg PO DAILY [facility] Last Admin: 09/04/20 09:18 Dose: Not Given Documented by: Sodium Chloride (Sodium Chloride Flush Syringe 10 Ml) 10 ml IV BID JAE Last Admin: 09/04/20 09:20 Dose: 10 ml Documented by: Sodium Chloride (Sodium Chloride Flush Syringe 10 Ml) 10 ml IV PRN PRN PRN Reason: LINE FLUSH Review of Systems ROS unobtainable: due to mental status Exam - Constitutional Vitals: Temp Pulse Resp BP Pulse Ox 98.1 F 75 16 135/63 98 09/04/20 18:33 09/04/20 20:00 09/04/20 18:33 09/04/20 20:00 09/04/20 20:00 General appearance: Present: no acute distress - EENT Eyes: Present: PERRL, EOM intact ENT: hearing intact - Respiratory Respiratory effort: normal - Cardiovascular Rhythm: regular Heart Sounds: Present: S1 & S2 (Bilat BKA) - Abdominal General gastrointestinal: Present: soft, non-tender Results - Labs CBC & Chem 7: 09/04/20 18:58 09/04/20 05:18 Labs: Abnormal lab results 09/01/20 09/03/20 09/04/20 Range/Units 23:15 23:37 05:18 RBC 2.26 L (3.65-5.03) M/mm3 Hgb 5.3 L* (10.1-14.3) gm/dl Hct 17.1 L* (30.3-42.9) % MCV 76 L (79-97) fl MCH 24 L (28-32) pg RDW 33.7 H (13.2-15.2) % Lymph % (Auto) 8.0 L (13.4-35.0) % [place] % (Auto) 7.5 H (0.0-7.3) % Lymph # (Auto) 0.7 L (1.2-5.4) K/mm3 Seg Neutrophils % 84.3 H (40.0-70.0) % PT (12.2-14.9) Sec. INR (0.87-1.13) Sodium (137-145) mmol/L Potassium (3.6-5.0) mmol/L Chloride (98-107) mmol/L Carbon Dioxide (22-30) mmol/L BUN (7-17) mg/dL Creatinine (0.6-1.2) mg/dL Glucose (65-100) mg/dL POC Glucose 228 H (70-105) mg/dL Calcium (8.4-10.2) mg/dL Alkaline Phosphatase (35-129) units/L Total Protein (6.3-8.2) g/dL Albumin (3.9-5) g/dL PTH Intact (15-65) pg/mL Crossmatch See Detail 09/04/20 09/04/20 09/04/20 Range/Units 05:18 05:18 05:18 RBC (3.65-5.03) M/mm3 Hgb (10.1-14.3) gm/dl Hct (30.3-42.9) % MCV (79-97) fl MCH (28-32) pg RDW (13.2-15.2) % Lymph % (Auto) (13.4-35.0) % [place] % (Auto) (0.0-7.3) % Lymph # (Auto) (1.2-5.4) K/mm3 Seg Neutrophils % (40.0-70.0) % PT 19.6 H (12.2-14.9) Sec. INR 1.62 H (0.87-1.13) Sodium 149 H (137-145) mmol/L Potassium 5.2 H (3.6-5.0) mmol/L Chloride 125.6 H (98-107) mmol/L Carbon Dioxide 14 L (22-30) mmol/L BUN 86 H (7-17) mg/dL Creatinine 2.3 H (0.6-1.2) mg/dL Glucose 232 H (65-100) mg/dL POC Glucose (70-105) mg/dL Calcium 7.5 L (8.4-10.2) mg/dL Alkaline Phosphatase 144 H (35-129) units/L Total Protein 4.1 L D (6.3-8.2) g/dL Albumin 1.9 L (3.9-5) g/dL PTH Intact 820.4 H (15-65) pg/mL Crossmatch 09/04/20 09/04/20 09/04/20 Range/Units 06:33 09:03 12:08 RBC (3.65-5.03) M/mm3 Hgb (10.1-14.3) gm/dl Hct (30.3-42.9) % MCV (79-97) fl MCH (28-32) pg RDW (13.2-15.2) % Lymph % (Auto) (13.4-35.0) % [place] % (Auto) (0.0-7.3) % Lymph # (Auto) (1.2-5.4) K/mm3 Seg Neutrophils % (40.0-70.0) % PT (12.2-14.9) Sec. INR (0.87-1.13) Sodium (137-145) mmol/L Potassium (3.6-5.0) mmol/L Chloride (98-107) mmol/L Carbon Dioxide (22-30) mmol/L BUN (7-17) mg/dL Creatinine (0.6-1.2) mg/dL Glucose (65-100) mg/dL POC Glucose 224 H 264 H 247 H (70-105) mg/dL Calcium (8.4-10.2) mg/dL Alkaline Phosphatase (35-129) units/L Total Protein (6.3-8.2) g/dL Albumin (3.9-5) g/dL PTH Intact (15-65) pg/mL Crossmatch 09/04/20 09/04/20 Range/Units 15:01 18:58 RBC (3.65-5.03) M/mm3 Hgb 8.7 L D (10.1-14.3) gm/dl Hct 27.4 L D (30.3-42.9) % MCV (79-97) fl MCH (28-32) pg RDW (13.2-15.2) % Lymph % (Auto) (13.4-35.0) % [place] % (Auto) (0.0-7.3) % Lymph # (Auto) (1.2-5.4) K/mm3 Seg Neutrophils % (40.0-70.0) % PT (12.2-14.9) Sec. INR (0.87-1.13) Sodium (137-145) mmol/L Potassium (3.6-5.0) mmol/L Chloride (98-107) mmol/L Carbon Dioxide (22-30) mmol/L BUN (7-17) mg/dL Creatinine (0.6-1.2) mg/dL Glucose (65-100) mg/dL POC Glucose 202 H (70-105) mg/dL Calcium (8.4-10.2) mg/dL Alkaline Phosphatase (35-129) units/L Total Protein (6.3-8.2) g/dL Albumin (3.9-5) g/dL PTH Intact (15-65) pg/mL Crossmatch Assessment and Plan 1. Anemia - chronic, iron deficient. Duration unknown. - monitor H/H and transfuse as needed. - eventually, EGD/Colonoscopy appropriate, but would try and do electively after resolution of COVID-19 unless develops significant active bleed. 2. GI bleed - no clear evidence of significant active bleed, with bilious output noted in FCD. Pt does have known hx of erosive esophagitis, and empiric PPI is appropriate. Can stay on IV PPI drip, and if H/H stable, decrease to bid. - monitor H/H 3. DVTs - obtain Vascular consult to assess need for anticoagulation vs possible IVC filter. 4. Diarrhea - new onset. Likely related to COVID-19. 5. COVID-19 infection
[2020-09-04] MEDS: INSULIN GLARGINE 100 UNITS/ML SUB-Q SCH (21:46)
[2020-09-05 01:41] LABS: Hematocrit 23.8 % (30.3-42.9); Hemoglobin 7.8 gm/dl (10.1-14.3)
[2020-09-05] MEDS: PANTOPRAZOLE 80 MG in SODIUM CHLORIDE 0.9% 100 ML IV SCH ×2 (03:36→14:46)
[2020-09-05] MEDS: SERTRALINE 50 MG TAB PO SCH (09:21)
[2020-09-05] MEDS: ASPIRIN 81 MG TAB CHEW PO SCH (09:21)
[2020-09-05] MEDS: FERROUS SULFATE 325 MG TAB PO SCH (09:21)
[2020-09-05] MEDS: INSULIN LISPRO 100 UNIT/ML VIAL 3 mL SUB-Q SCH ×4 (09:21→22:47)
[2020-09-05] MEDS: dexAMETHasone 4 MG/ML VIAL IV SCH (09:21)
[2020-09-05 09:33] LABS: INR 2.01 (0.87-1.13)
[2020-09-05 09:36] LABS: Monocytes # (Auto) 0.6 K/mm3 (0.0-0.8); Monocytes % (Auto) 5.3 % (0.0-7.3)
[2020-09-05 09:41] LABS: Albumin 2.5 g/dL (3.9-5); Calcium 7.9 mg/dL (8.4-10.2)
[2020-09-05 10:38] LABS: Hematocrit 23.2 % (30.3-42.9); Hemoglobin 7.7 gm/dl (10.1-14.3); Lymphocytes % (Auto) 9.2 % (13.4-35.0); Mean Corpuscular HGB Conc 33 % (30-34); Mean Corpuscular Volume 79 fl (79-97); Platelet Count 160 K/mm3 (140-440); Red Blood Count 2.93 M/mm3 (3.65-5.03); Red Cell Distribution Width 28.4 % (13.2-15.2)
[2020-09-05 10:39] LABS: Basophils % (Auto) 0.1 % (0.0-1.8); Lymphocytes # (Auto) 1.1 K/mm3 (1.2-5.4)
--- NOTE | 2020-09-05 10:44 | Progress Note ---
Assessment and Plan Cultures: Blood culture no growth today. SARS CoV2 PCR positive [facility] 08/24/2020. Assessment: 64 years old female with history of diabetes mellitus, hypertension, peripheral vascular disease status post bilateral BKA, chronic kidney disease, tobacco use, tested positive for COVID-19 outpatient the day before admission, admitted on 09/01/2020 due to a week history of cough, generalized weakness, body aches, subjective fever, shortness of breath, nausea, multiple diarrheic ep isodes, patient recently admitted to [facility] from 08/23/2020 until 08/27/2020 for symptomatic anemia, hemoglobin at 4.5, refused further work-up and tested positive for COVID-19, asymptomatic: #Severe sepsis: likely due to bilateral pneumonia +/-severe anemia. #Severe COVID pneumonia: Patient tested positive at [facility] on 08/24/2020. Chest x-ray showed extensive bilateral airspace disease. Patient is currently on room air. There may be a component of volume overload. Echocardiogram at [facility] EF 43%. BNP 70,000. Procalcitonin normal, hence doubt bacterial component. COVID IgG non reactive. #Elevated LFTs: from COVID. Improved. #Hypoxia: resolved #DIRK on CKD #Acute thrombocytopenia: resolved. #Acute diarrhea: Multiple episodes. Likely associated to COVID-19 infection. C. difficile toxin PCR negative. #Bilateral lower extremity DVT: Anticoagulation on hold due to severe anemia #Severe anemia: GI following. Recommendations: -Continue steroids, complete 10 days -no indication for Remdesivir -continue supportive care -continue off abx Dr. Suazo back on Monday. Eric Santiago MD, FACP [facility] O: [phone] F: [phone] Subjective Date of service: 09/05/20 Principal diagnosis: COVID Interval history: No fever. Patient on room air. On steroids. On PPI drip. Objective - Exam Narrative Exam: Physical Exam (reviewed in chart due to PPE conservation and minimize risk of transmission) Constitutional: limited due to PPE conservation strategy Head, Ears, Nose: limited due to PPE conservation strategy Eyes: limited due to PPE conservation strategy Neck: limited due to PPE conservation strategy Oral: limited due to PPE conservation strategy Cardiovascular: limited due to PPE conservation strategy Respiratory: limited due to PPE conservation strategy GI: limited due to PPE conservation strategy Musculoskeletal: limited due to PPE conservation strategy Skin: limited due to PPE conservation strategy Hem/Lymphatic: limited due to PPE conservation strategy Psych: limited due to PPE conservation strategy Neurological: limited due to PPE conservation strategy - Constitutional Vitals: Vital Signs Temp Pulse Resp BP Pulse Ox 97.4 F L 77 20 166/77 97 09/05/20 08:00 09/05/20 07:00 09/05/20 07:00 09/05/20 07:00 09/05/20 04:00 Temperature -Last 24 Hours Temperature 97.4 F Temperature 97.4 F Temperature 97.5 F Temperature 97.5 F Temperature 98.1 F Temperature 98.1 F Temperature 97.8 F Temperature 97.9 F Temperature 97.9 F Temperature 98.0 F Temperature 97.9 F Temperature 97.8 F Temperature 98 F Temperature 97.9 F Temperature 97.8 F Temperature 97.8 F Temperature 97.8 F Temperature 97.6 F Temperature 97.5 F Temperature 97.7 F Temperature 97.5 F - Labs CBC & Chem 7: 09/05/20 08:28 09/05/20 08:28 Labs: Abnormal lab results 09/01/20 09/04/20 09/04/20 Range/Units 23:15 12:08 15:01 WBC (4.5-11.0) K/mm3 RBC (3.65-5.03) M/mm3 Hgb (10.1-14.3) gm/dl Hct (30.3-42.9) % MCH (28-32) pg RDW (13.2-15.2) % Lymph % (Auto) (13.4-35.0) % Lymph # (Auto) (1.2-5.4) K/mm3 Seg Neutrophils % (40.0-70.0) % Seg Neutrophils # (1.8-7.7) K/mm3 PT (12.2-14.9) Sec. INR (0.87-1.13) Sodium (137-145) mmol/L Chloride (98-107) mmol/L Carbon Dioxide (22-30) mmol/L BUN (7-17) mg/dL Creatinine (0.6-1.2) mg/dL Glucose (65-100) mg/dL POC Glucose 247 H 202 H (70-105) mg/dL Calcium (8.4-10.2) mg/dL Alkaline Phosphatase (35-129) units/L Total Protein (6.3-8.2) g/dL Albumin (3.9-5) g/dL Crossmatch See Detail 09/04/20 09/04/20 09/05/20 Range/Units 18:58 22:28 00:55 WBC (4.5-11.0) K/mm3 RBC (3.65-5.03) M/mm3 Hgb 8.7 L D 7.8 L (10.1-14.3) gm/dl Hct 27.4 L D 23.8 L (30.3-42.9) % MCH (28-32) pg RDW (13.2-15.2) % Lymph % (Auto) (13.4-35.0) % Lymph # (Auto) (1.2-5.4) K/mm3 Seg Neutrophils % (40.0-70.0) % Seg Neutrophils # (1.8-7.7) K/mm3 PT (12.2-14.9) Sec. INR (0.87-1.13) Sodium (137-145) mmol/L Chloride (98-107) mmol/L Carbon Dioxide (22-30) mmol/L BUN (7-17) mg/dL Creatinine (0.6-1.2) mg/dL Glucose (65-100) mg/dL POC Glucose 181 H (70-105) mg/dL Calcium (8.4-10.2) mg/dL Alkaline Phosphatase (35-129) units/L Total Protein (6.3-8.2) g/dL Albumin (3.9-5) g/dL Crossmatch 09/05/20 09/05/20 09/05/20 Range/Units 08:28 08:28 08:28 WBC 11.8 H (4.5-11.0) K/mm3 RBC 2.93 L (3.65-5.03) M/mm3 Hgb 7.7 L (10.1-14.3) gm/dl Hct 23.2 L (30.3-42.9) % MCH 26 L (28-32) pg RDW 28.4 H (13.2-15.2) % Lymph % (Auto) 9.2 L (13.4-35.0) % Lymph # (Auto) 1.1 L (1.2-5.4) K/mm3 Seg Neutrophils % 85.4 H (40.0-70.0) % Seg Neutrophils # 10.1 H (1.8-7.7) K/mm3 PT 23.2 H (12.2-14.9) Sec. INR 2.01 H (0.87-1.13) Sodium 152 H (137-145) mmol/L Chloride 125.7 H (98-107) mmol/L Carbon Dioxide 13 L (22-30) mmol/L BUN 86 H (7-17) mg/dL Creatinine 2.3 H (0.6-1.2) mg/dL Glucose 152 H (65-100) mg/dL POC Glucose (70-105) mg/dL Calcium 7.9 L (8.4-10.2) mg/dL Alkaline Phosphatase 155 H (35-129) units/L Total Protein 4.6 L (6.3-8.2) g/dL Albumin 2.5 L (3.9-5) g/dL Crossmatch
--- NOTE | 2020-09-05 11:43 | Progress Note ---
Assessment and Plan 1. Acute kidney injury: DIRK secondary to combination of Vasomotor nephropathy and severe sepsis. Renal US negative for hydro. Urine studies ordered. Monitor renal function. Creatinine level is same as yesterday. Prior Creatinine was 1.2 in 2014. Likely CKD stage 4. Renal prognosis is guarded. Avoid nephrotoxic agents. Meds dosage based on GFR. 2. FEN: Mild hyperkalemia, improved, monitor. Hyperchloremic Metabolic acidosis, started on Pot bicarbonate, monitor. Unable to give Sod bicarb due to hypernatremia. Hypernatremia, started on IV D5W. Suspected Volume overload, Metolazone. Monitor lytes. 3. Severe sepsis, POA: Presented with hypothermia, hypotension. Likely secondary to bilateral pneumonia. 4. Severe COVID infection: Followed by ID. 6. Bilateral LE DVT, POA. 7. Microcytic anemia, POA: S/p PRBC. Monitor. 8. Thrombocytopenia, POA. 9. Acute diarrhea: Likely associated to COVID-19 infection. C. difficile test negative. Subjective: Patient was seen and examined at the bedside. Denies any new complaint. General Appearance: General appearance: well-developed, well-nourished, appears stated age, no distress, obese HEENT: ATNC, AJYCE Neck: supple Respiratory: ctab Cardiology: regular, S1S2, no murmur Gastrointestinal: normoactive bowel sounds, no tenderness, not distended Integumentary: no obvious rash Neurologic: alert, moving extremities, slight confusion Ext: trace dependent edema, b/l BKA Subjective Date of service: 09/05/20 Principal diagnosis: COVID Objective - Vital Signs Vital signs: Vital Signs - 12hr 09/05/20 09/05/20 09/05/20 00:00 01:00 02:00 Temperature 97.5 F L Pulse Rate 82 77 94 H Pulse Rate [ 71 From Monitor] Respiratory 22 17 16 Rate Blood Pressure 162/74 158/90 158/77 O2 Sat by Pulse 97 97 96 Oximetry 09/05/20 09/05/20 09/05/20 02:54 03:00 04:00 Temperature 97.4 F L Pulse Rate 71 77 70 Pulse Rate [ 70 From Monitor] Respiratory 25 H 22 Rate Blood Pressure 165/69 162/64 O2 Sat by Pulse 96 96 Oximetry 09/05/20 09/05/20 09/05/20 05:00 06:00 07:00 Temperature Pulse Rate 79 67 77 Pulse Rate [ From Monitor] Respiratory 17 13 20 Rate Blood Pressure 164/59 156/75 166/77 O2 Sat by Pulse Oximetry 09/05/20 09/05/20 09/05/20 08:00 09:00 10:00 Temperature 97.4 F L Pulse Rate 79 61 78 Pulse Rate [ 79 From Monitor] Respiratory 18 19 14 Rate Blood Pressure 164/87 170/80 189/76 O2 Sat by Pulse 96 97 97 Oximetry - Lab 09/05/20 08:28 09/05/20 08:28 Most recent lab results Calcium 7.9 mg/dL (8.4-10.2) L 09/05/20 08:28 Medications & Allergies - Medications Allergies/Adverse Reactions: Allergies No Known Allergies Allergy (Unverified 02/14/14 19:23) Home Medications: Home Medications Medication Instructions Recorded Confirmed Last Taken Type Aspirin [[place] Aspirin] 81 mg PO DAILY 02/14/14 02/22/14 02/14/14 11:00 History Ferrous Sulfate [Feosol 325mg] 325 mg PO DAILY 02/14/14 02/22/14 02/14/14 11:00 History Sertraline [Zoloft] 50 mg PO DAILY 02/14/14 02/22/14 02/14/14 11:00 History amLODIPine 5 mg PO DAILY 02/14/14 02/22/14 02/14/14 11:00 History hydroCHLOROthiazide 25 mg PO DAILY 02/14/14 02/22/14 02/14/14 11:00 History [Hydrochlorothiazide] lisinopriL [Zestril TAB] 10 mg PO DAILY 02/14/14 02/22/14 02/14/14 11:00 History Insulin NPH Hum/Reg Insulin Hm 100 units SQ BID 02/22/14 02/23/14 Unknown History [Humulin 70-30 Vial] Insulin Regular, Human [HumuLIN R] 7 unit SQ AC 02/22/14 02/23/14 Unknown History Active Medications: Generic Name Dose Route Start Last Admin Trade Name Freq PRN Reason Stop Dose Admin Acetaminophen 650 mg 09/02/20 00:30 Tylenol PO Q6H PRN Pain, Mild (1-3) Aspirin 81 mg 09/02/20 10:00 09/05/20 09:21 Baby Aspirin PO 81 mg DAILY JAE Administration Dexamethasone 6 mg 09/03/20 18:00 09/05/20 09:21 Decadron IV 09/12/20 10:01 6 mg DAILY JAE Administration Ferrous Sulfate 325 mg 09/02/20 10:00 09/05/20 09:21 Feosol PO 325 mg DAILY JAE Administration Hydromorphone HCl 0.25 mg 09/02/20 00:30 Dilaudid IV Q4H PRN Pain, Moderate (4-6) Pantoprazole Sodium 80 mg/ 100 mls @ 10 mls/hr 09/03/20 18:30 09/05/20 03:36 Sodium Chloride IV 8 mg/hr DIRECT JAE 10 mls/hr Administration 8 MG/HR Sodium Chloride 500 mls @ 0 mls/hr 09/04/20 13:03 Nacl 0.9% 500 Ml IV ONCE JAE As Directed Dextrose/Sodium Chloride 1,000 mls @ 75 mls/hr 09/04/20 13:07 09/05/20 06:13 D5/0.45ns IV 75 mls/hr DIRECT JAE Administration Insulin Glargine 10 units 09/03/20 22:00 09/04/20 21:46 Lantus SUB-Q 10 units QHS JAE Administration Insulin Human Lispro 0 unit 09/03/20 11:30 09/05/20 09:21 Humalog SUB-Q 2 unit ACHS JAE Administration Protocol Sertraline HCl 50 mg 09/02/20 10:00 09/05/20 09:21 Zoloft PO 50 mg DAILY JAE Administration Sodium Chloride 10 ml 09/02/20 10:00 09/05/20 09:21 Sodium Chloride Flush Syringe 10 Ml IV 10 ml BID JAE Administration Sodium Chloride 10 ml 09/02/20 00:30 Sodium Chloride Flush Syringe 10 Ml IV PRN PRN LINE FLUSH
--- NOTE | 2020-09-05 12:31 | Progress Note ---
Assessment and Plan Assessment and plan: 64 YO Female with HTN, DM, Anemia, PVD, Nicotine Dependence, positive coronavirus test on presented to the emergency room for further evaluation. Patient states that she has experienced subjective fever, generalized weakness, body aches, shortness of breath, nausea, multiple loose stools, lower extremity edema over the past 1 week with progressively worsening symptoms over the past 3 to 4 days prior to presentation. Patient was brought to the emergency room as a result. Here, patient found to be hypotensive with a systolic blood pressure ranging from 53-94. Patient was also hypothermic with a body temperature of 93.3 F. Patient met criteria for sepsis protocol and found to have bilateral pneumonia, metabolic acidosis, acute kidney injury. Patient admitted to telemetry due to increased risk of multisystem decompensation. Patient initiated on coronavirus protocol. Coronavirus PCR has been ordered and is pending at time of admission. Patient remained hypotensive in spite of IV fluid resuscitation therapy. Patient subsequently upgraded to IMCU. 09/03. While in the ER, patient had an ultrasound Doppler performed that showed bilateral DVT involving the iliac veins. Patient was started on heparin drip. ID consulted for COVID-19 and nephrology consulted for DIRK. Patient seen and examined at bedside this morning. She has no complaints this morning. Her hemoglobin dropped to 6.4 this morning. Patient will get transfused 1 unit of PRBCs. Later this p.m., was notified by nurse that patient is having tarry dark stool and hematemesis. Heparin drip discontinued. Patient started on PPI drip and made n.p.o. GI is has been consulted. Patient will need to have an upper endoscopy. She has bilateral lower extremity DVT and will need vascular surgery evaluation to determine if she is a candidate for IVC filter placement. 09/04. Patient seen and examined at bedside this morning. Labs reviewed showed hemoglobin 5.3. Patient will receive 2 units PRBCs. FFP also ordered. GI evaluation pending. Continue PPIs. Vascular surgeon to see to determine if patient is a candidate for IVC filter placement for DVT. 09/05. Hb stable this morning. GI on board. On PPI drip. Problems --Sepsis Current Visit: Yes Status: Acute Qualifiers: Acute renal failure type: with acute tubular necrosis Plan to address problem: Continue IV antibiotics Blood culture NTD ID recommendations appreciated --Bilateral pneumonia Current Visit: Yes Status: Acute Plan to address problem: From Covid Continue antibiotics Dexamethasone ID recommendations appreciated --COVID-19 Current Visit: Yes Status: Acute Plan to address problem: Coronavirus protocol: Coronavirus PCR ordered and is pending at time of admission, contact precaution, isolation precautions, prone positioning while in bed, IV steroid therapy, IV antibiotic therapy. Supportive care. --Acute on chronic anemia Current Visit: Yes Status: Acute on chronic Plan to address problem: Status post transfusion of 1 unit PRBC s/p 3 units PRBCs and 1 FFP Continue to hold anticoagulation PPI. GI on board H/H q8 --GI bleed Current Visit: No Status: Acute Plan to address problem: Can start clear liquid diet GI on board --Acute kidney injury (DIRK) with acute tubular necrosis (ATN) Current Visit: Yes Status: Acute Plan to address problem: Continue to monitor renal function Nephrology following closely --Hypernatremia Current Visit: Yes Status: Acute Plan to address problem: D5 half NS as patient is currently n.p.o. Nephrology on board --Bilateral lower extremity DVT Current Visit: Yes Status: Acute Qualifiers: Encounter type: initial encounter Qualified Code(s): T68.XXXA - Hypothermia, initial encounter Plan to address problem: Holding heparin due to GI bleed Consulted vascular surgeon for consideration of IVC filter placement --Diabetes Current Visit: Yes Status: Acute Plan to address problem: Sliding-scale insulin therapy, Accu-Chek, hypoglycemia protocol, consistent c arbohydrate diet. --DVT prophylaxis Current Visit: No Status: Acute Plan to address problem: Discontinue heparin due to GI bleed --Advance care planning Current Visit: Yes Status: Acute Plan to address problem: Disease education conducted, prognosis discussed, patient is full code, care plan discussed, patient knowledges understanding and agreement with care plan. +30 minutes. --Nicotine dependence Current Visit: Yes Status: Acute Qualifiers: Nicotine product type: cigarettes Substance use status: in withdrawal Qualified Code(s): F17.213 - Nicotine dependence, cigarettes, with withdrawal Plan to address problem: Supportive care, smoking cessation counseling, behavior change counseling, +15 minutes. History Interval history: Patient seen and examined at bedside this morning Alert and responds to questions but slowly. She denies any shortness of breath Vitals reviewed Labs reviewed Hospitalist Physical - Physical exam Narrative exam: VITAL SIGNS: Reviewed. GENERAL: Awake and alert on response to questions HEAD: No signs of head trauma. EYES: Pupils are equal. Extraocular motions intact. MOUTH: Oropharynx is normal. NECK: No adenopathy, no JVD. CHEST: Chest with diminished breath sounds bilaterally. No wheezes, rales, or rhonchi. CARDIAC: Regular rate and rhythm. S1 and S2, without murmurs, gallops, or rubs. ABDOMEN: Soft, non tender and non distended. No rebound or guarding, and no masses palpated. Bowel Sounds normal. MUSCULOSKELETAL: bilateral AKA NEUROLOGIC EXAM: Alert and oriented x3. No focal neurologic deficits PSYCHIATRIC: Stable mood SKIN: No obvious lesions - Constitutional Vitals: Temp Pulse Resp BP Pulse Ox 97.4 F L 78 14 189/76 97 09/05/20 08:00 09/05/20 10:00 09/05/20 10:00 09/05/20 10:00 09/05/20 10:00 Results - Labs CBC & Chem 7: 09/05/20 08:28 09/05/20 08:28 Labs: Laboratory Last Values WBC 11.8 K/mm3 (4.5-11.0) H 09/05/20 08:28 RBC 2.93 M/mm3 (3.65-5.03) L 09/05/20 08:28 Hgb 7.7 gm/dl (10.1-14.3) L 09/05/20 08:28 Hct 23.2 % (30.3-42.9) L 09/05/20 08:28 MCV 79 fl (79-97) 09/05/20 08:28 MCH 26 pg (28-32) L 09/05/20 08:28 MCHC 33 % (30-34) 09/05/20 08:28 RDW 28.4 % (13.2-15.2) H 09/05/20 08:28 Plt Count 160 K/mm3 (140-440) 09/05/20 08:28 Lymph % (Auto) 9.2 % (13.4-35.0) L 09/05/20 08:28 Wal[place] % (Auto) 5.3 % (0.0-7.3) 09/05/20 08:28 Eos % (Auto) 0.0 % (0.0-4.3) 09/05/20 08:28 Baso % (Auto) 0.1 % (0.0-1.8) 09/05/20 08:28 Lymph # (Auto) 1.1 K/mm3 (1.2-5.4) L 09/05/20 08:28 Waldo # (Auto) 0.6 K/mm3 (0.0-0.8) 09/05/20 08:28 Eos # (Auto) 0.0 K/mm3 (0.0-0.4) 09/05/20 08:28 Baso # (Auto) 0.0 K/mm3 (0.0-0.1) 09/05/20 08:28 Add Manual Diff Complete 09/03/20 05:17 Total Counted 100 09/03/20 05:17 Seg Neutrophils % 85.4 % (40.0-70.0) H 09/05/20 08:28 Seg Neuts % (Manual) 76.0 % (40.0-70.0) H 09/03/20 05:17 Band Neutrophils % 0 % 09/03/20 05:17 Lymphocytes % (Manual) 18.0 % (13.4-35.0) 09/03/20 05:17 Reactive Lymphs % (Man) 0 % 09/03/20 05:17 Monocytes % (Manual) 6.0 % (0.0-7.3) 09/03/20 05:17 Eosinophils % (Manual) 0 % (0.0-4.3) 09/03/20 05:17 Basophils % (Manual) 0 % (0.0-1.8) 09/03/20 05:17 Metamyelocytes % 0 % 09/03/20 05:17 Myelocytes % 0 % 09/03/20 05:17 Promyelocytes % 0 % 09/03/20 05:17 Blast Cells % 0 % 09/03/20 05:17 Nucleated RBC % Not Reportable 09/03/20 05:17 Seg Neutrophils # 10.1 K/mm3 (1.8-7.7) H 09/05/20 08:28 Seg Neutrophils # Man 7.8 K/mm3 (1.8-7.7) H 09/03/20 05:17 Band Neutrophils # 0.0 K/mm3 09/03/20 05:17 Lymphocytes # (Manual) 1.8 K/mm3 (1.2-5.4) 09/03/20 05:17 Abs React Lymphs (Man) 0.0 K/mm3 09/03/20 05:17 Monocytes # (Manual) 0.6 K/mm3 (0.0-0.8) 09/03/20 05:17 Eosinophils # (Manual) 0.0 K/mm3 (0.0-0.4) 09/03/20 05:17 Basophils # (Manual) 0.0 K/mm3 (0.0-0.1) 09/03/20 05:17 Metamyelocytes # 0.0 K/mm3 09/03/20 05:17 Myelocytes # 0.0 K/mm3 09/03/20 05:17 Promyelocytes # 0.0 K/mm3 09/03/20 05:17 Blast Cells # 0.0 K/mm3 09/03/20 05:17 WBC Morphology Not Reportable 09/03/20 05:17 Hypersegmented Neuts Not Reportable 09/03/20 05:17 Hyposegmented Neuts Not Reportable 09/03/20 05:17 Hypogranular Neuts Not Reportable 09/03/20 05:17 Smudge Cells Not Reportable 09/03/20 05:17 Toxic Granulation Not Reportable 09/03/20 05:17 Toxic Vacuolation Not Reportable 09/03/20 05:17 Dohle Bodies Not Reportable 09/03/20 05:17 Pelger-Huet Anomaly Not Reportable 09/03/20 05:17 Ignacia Rods Not Reportable 09/03/20 05:17 Platelet Estimate Consistent w auto 09/03/20 05:17 Clumped Platelets Not Reportable 09/03/20 05:17 Plt Clumps, EDTA Not Reportable 09/03/20 05:17 Large Platelets Not Reportable 09/03/20 05:17 Giant Platelets Not Reportable 09/03/20 05:17 Platelet Satelliting Not Reportable 09/03/20 05:17 Plt Morphology Comment Not Reportable 09/03/20 05:17 RBC Morphology Not Reportable 09/03/20 05:17 Dimorphic RBCs Not Reportable 09/03/20 05:17 Polychromasia Not Reportable 09/03/20 05:17 Hypochromasia 1+ 09/03/20 05:17 Poikilocytosis Not Reportable 09/03/20 05:17 Anisocytosis 3+ 09/03/20 05:17 Microcytosis 1+ 09/03/20 05:17 Macrocytosis Not Reportable 09/03/20 05:17 Spherocytes Not Reportable 09/03/20 05:17 Pappenheimer Bodies Not Reportable 09/03/20 05:17 Sickle Cells Not Reportable 09/03/20 05:17 Target Cells Not Reportable 09/03/20 05:17 Tear Drop Cells Not Reportable 09/03/20 05:17 Ovalocytes Few 09/03/20 05:17 Helmet Cells Not Reportable 09/03/20 05:17 Horv[place]-Hall Bodies Not Reportable 09/03/20 05:17 [place] Rings Not Reportable 09/03/20 05:17 [place] Cells 1+ 09/03/20 05:17 Bite Cells Not Reportable 09/03/20 05:17 Crenated Cell Not Reportable 09/03/20 05:17 Elliptocytes Not Reportable 09/03/20 05:17 Acanthocytes (Spur) Not Reportable 09/03/20 05:17 Rouleaux Not Reportable 09/03/20 05:17 Hemoglobin C Crystals Not Reportable 09/03/20 05:17 Schistocytes 1+ 09/03/20 05:17 Malaria parasites Not Reportable 09/03/20 05:17 Molina Bodies Not Reportable 09/03/20 05:17 Hem Pathologist Commnt No 09/03/20 05:17 PT 23.2 Sec. (12.2-14.9) H 09/05/20 08:28 INR 2.01 (0.87-1.13) H 09/05/20 08:28 APTT 29.2 Sec. (24.2-36.6) 09/02/20 13:52 D-Dimer 1076.18 ng/mlDDU (0-234) H 09/01/20 21:55 Heparin Anti-Xa Level 0.94 U.I./ml (0.3-0.7) H 09/03/20 05:17 Sodium 152 mmol/L (137-145) H 09/05/20 08:28 Potassium 4.2 mmol/L (3.6-5.0) 09/05/20 08:28 Chloride 125.7 mmol/L (98-107) H 09/05/20 08:28 Carbon Dioxide 13 mmol/L (22-30) L 09/05/20 08:28 Anion Gap 18 mmol/L 09/05/20 08:28 BUN 86 mg/dL (7-17) H 09/05/20 08:28 Creatinine 2.3 mg/dL (0.6-1.2) H 09/05/20 08:28 Estimated GFR 26 ml/min 09/05/20 08:28 BUN/Creatinine Ratio 37 % 09/05/20 08:28 Glucose 152 mg/dL (65-100) H 09/05/20 08:28 POC Glucose 181 mg/dL (70-105) H 09/04/20 22:28 Lactic Acid 0.60 mmol/L (0.7-2.0) L 09/02/20 08:10 Calcium 7.9 mg/dL (8.4-10.2) L 09/05/20 08:28 Ferritin 313.5 ng/mL (10.0-200.0) H 09/01/20 21:55 Total Bilirubin 0.40 mg/dL (0.1-1.2) 09/05/20 08:28 AST 36 units/L (5-40) 09/05/20 08:28 ALT 21 units/L (7-56) 09/05/20 08:28 Alkaline Phosphatase 155 units/L (35-129) H 09/05/20 08:28 Lactate Dehydrogenase 435 units/L (91-180) H 09/01/20 21:55 C-Reactive Protein 2.30 mg/dL (0.00-1.30) H 09/01/20 21:55 NT-Pro-B Natriuret Pep 73120 pg/mL (0-900) H 09/01/20 21:55 Total Protein 4.6 g/dL (6.3-8.2) L 09/05/20 08:28 Albumin 2.5 g/dL (3.9-5) L 09/05/20 08:28 Albumin/Globulin Ratio 1.2 % 09/05/20 08:28 Procalcitonin 0.10 ng/mL (<0.15) 09/01/20 21:55 TSH 0.735 mlU/mL (0.270-4.200) 09/02/20 00:45 Free T4 0.92 ng/dL (0.76-1.46) 09/02/20 00:45 Free T4 0.94 ng/dL (0.76-1.46) 09/02/20 00:45 PTH Intact 820.4 pg/mL (15-65) H 09/04/20 05:18 Urine Color Elena (Yellow) 09/02/20 03:44 Urine Turbidity Cloudy (Clear) 09/02/20 03:44 Urine pH 7.0 (5.0-7.0) 09/02/20 03:44 Ur Specific [place] 1.015 (1.003-1.030) 09/02/20 03:44 Urine Protein >500 mg/dL (Negative) 09/02/20 03:44 Urine Glucose (UA) Neg mg/dL (Negative) 09/02/20 03:44 Urine Ketones Neg mg/dL (Negative) 09/02/20 03:44 Urine Blood Neg (Negative) 09/02/20 03:44 Urine Nitrite Neg (Negative) 09/02/20 03:44 Urine Bilirubin Neg (Negative) 09/02/20 03:44 Urine Urobilinogen < 2.0 mg/dL (<2.0) 09/02/20 03:44 Ur Leukocyte Esterase Neg (Negative) 09/02/20 03:44 Urine WBC (Auto) < 1.0 /HPF (0.0-6.0) 09/02/20 03:44 Urine RBC (Auto) < 1.0 /HPF (0.0-6.0) 09/02/20 03:44 U Epithel Cells (Auto) < 1.0 /HPF (0-13.0) 09/02/20 03:44 Urine Bacteria (Auto) 2+ /HPF (Negative) 09/02/20 03:44 Urine Mucus Few /HPF 09/02/20 03:44 C. difficile Tox (PCR) Negative (Negative) 09/02/20 13:05 SARS-CoV-2 IgG Ab Nonreactive (NonReactive) 09/02/20 08:10 Blood Type O POSITIVE 09/01/20 23:15 Antibody Screen Negative 09/01/20 23:15 Crossmatch See Detail 09/01/20 23:15 Microbiology: Microbiology 09/01/20 23:27 Peripheral/Venous Blood Culture - Preliminary NO GROWTH AFTER 72 HOURS 09/01/20 23:44 Peripheral/Venous Blood Culture - Preliminary NO GROWTH AFTER 72 HOURS [place]/IV: Voiding Method Incontinent IV Catheter Type [Right Upper INT / Saline Lock arm] IV Catheter Type [Right INT / Saline Lock External Jugular] Active Medications - Current Medications Current Medications: Generic Name Dose Route Start Last Admin Trade Name Freq PRN Reason Stop Dose Admin Acetaminophen 650 mg 09/02/20 00:30 Tylenol PO Q6H PRN Pain, Mild (1-3) Aspirin 81 mg 09/02/20 10:00 09/05/20 09:21 Baby Aspirin PO 81 mg DAILY JAE Administration Calcitriol 0.5 mcg 09/05/20 13:00 Rocaltrol PO QDAY JAE Dexamethasone 6 mg 09/03/20 18:00 09/05/20 09:21 Decadron IV 09/12/20 10:01 6 mg DAILY JAE Administration Ferrous Sulfate 325 mg 09/02/20 10:00 09/05/20 09:21 Feosol PO 325 mg DAILY JAE Administration Hydromorphone HCl 0.25 mg 09/02/20 00:30 Dilaudid IV Q4H PRN Pain, Moderate (4-6) Pantoprazole Sodium 80 mg/ 100 mls @ 10 mls/hr 09/03/20 18:30 09/05/20 03:36 Sodium Chloride IV 8 mg/hr DIRECT JAE 10 mls/hr Administration 8 MG/HR Sodium Chloride 500 mls @ 0 mls/hr 09/04/20 13:03 Nacl 0.9% 500 Ml IV ONCE JAE As Directed Dextrose 1,000 mls @ 50 mls/hr 09/05/20 13:00 D5w IV DIRECT [facility] Insulin Glargine 20 units 09/05/20 12:14 Lantus SUB-Q QHS [facility] Insulin Human Lispro 0 unit 09/03/20 11:30 09/05/20 12:05 Humalog SUB-Q Not Given ACHS [facility] Protocol Metolazone 10 mg 09/05/20 13:00 Zaroxolyn PO QDAY [facility] Potassium Bicarbonate 50 meq 09/05/20 13:00 Klor-Con PO QDAY [facility] Sertraline HCl 50 mg 09/02/20 10:00 11/07/20 09:21 Zoloft PO 50 mg DAILY JAE Administration Sodium Chloride 10 ml 09/02/20 10:00 09/05/20 09:21 Sodium Chloride Flush Syringe 10 Ml IV 10 ml BID JAE Administration Sodium Chloride 10 ml 09/02/20 00:30 Sodium Chloride Flush Syringe 10 Ml IV PRN PRN LINE FLUSH Nutrition/Malnutrition Assess - Dietary Evaluation Nutrition/Malnutrition Findings: Nutrition Notes Start: 09/03/20 13:19 Freq: Status: Active Protocol: Document 09/04/20 10:42 AL (Rec: 09/04/20 10:46 AL [id number]) Co-Sign 09/04/20 10:42 MK Nutrition Notes Initial or Follow up Brief Note Current Diagnosis CKD(stage I-IV),Diabetes, Sepsis,Hypertension Other Pertinent Diagnosis Pneu, anemia, GI bleed Pmhx: covid +, bilateral BKA, Current Diet NPO Subjective/Other Information Yesterday, RN stated that patient was eating well. Patient is currently NPO for procedure today. Coumadin was d/c, diet education is no longer appropriate at this time. Per RN, patient is vomiting and pulled out NGT. Nutrition Intervention Follow-Up By: 09/07/20 Additional Comments F/U: full assessment, diet advancement
[2020-09-05] MEDS: CALCITRIOL 0.5 MCG CAP PO SCH (14:46)
[2020-09-05] MEDS: DEXTROSE 5% IN WATER 1,000 ML IV SCH (14:47)
--- NOTE | 2020-09-05 15:30 | Consultation ---
History of Present Illness - Reason for Consult Consult date: 09/05/20 DVT, possible IVC filter Requesting physician: KELTON JENSEN - History of Present Illness 64 YO Female with HTN, DM, Anemia, PVD, Nicotine Dependence, positive coronavirus test on yesterday presents to ED for evaluation. Patient states that she has experienced subjective fever, generalized weakness, body aches, shortness of breath, nausea, multiple loose stools, lower extremity edema over the past 1 week with progressively worsening symptoms over the past 3 days. EMS notified and upon arrival the patient was found to be in distress and subsequently transported to [facility] for further care and evaluation of the aforementioned symptoms. Patient seen and evaluated in the emergency depar tment. Lab and imaging studies reviewed. Patient found to be hypotensive with a systolic blood pressure ranging from 53-94. Patient was also hypothermic with a body temperature of 93.3 F. Patient meets criteria for sepsis protocol and found to have bilateral pneumonia, metabolic acidosis, acute kidney injury. Patient admitted to telemetry due to increased risk of multisystem decompensation. Patient initiated on coronavirus protocol. Coronavirus PCR has been ordered and is pending at time of admission. Patient remained hypotensive in spite of IV fluid resuscitation therapy. Patient subsequently upgraded to IMCU. Patient denies chills, chest pain, palpitations, skin rash, recent ill contacts. Vascular consulted for bilateral lower extremity DVTs in a patient with bilateral below-knee amputations. Patient has erosive esophagitis and is having hemoglobin slight decrease while on anticoagulation. I discussed the situation with Dr. Whitehead and Dr. Iverson. Past History Past Medical History: anemia, diabetes, hypertension, PVD, other (Erosive esophagitis - by EGD in 2014) Past Surgical History: Other (Bilateral BKA) Social history: single. denies: smoking, alcohol abuse Family history: hypertension Medications and Allergies Allergies Allergy/AdvReac Type Severity Reaction Status Date / Time No Known Allergies Allergy Unverified 02/14/14 19:23 Home Medications Medication Instructions Recorded Confirmed Last Taken Type Aspirin [[place] Aspirin] 81 mg PO DAILY 02/14/14 02/22/14 02/14/14 11:00 History Ferrous Sulfate [Feosol 325mg] 325 mg PO DAILY 02/14/14 02/22/14 02/14/14 11:00 History Sertraline [Zoloft] 50 mg PO DAILY 02/14/14 02/22/14 02/14/14 11:00 History amLODIPine 5 mg PO DAILY 02/14/14 02/22/14 02/14/14 11:00 History hydroCHLOROthiazide 25 mg PO DAILY 02/14/14 02/22/14 02/14/14 11:00 History [Hydrochlorothiazide] lisinopriL [Zestril TAB] 10 mg PO DAILY 02/14/14 02/22/14 02/14/14 11:00 History Insulin NPH Hum/Reg Insulin Hm 100 units SQ BID 02/22/14 02/23/14 Unknown History [Humulin 70-30 Vial] Insulin Regular, Human [HumuLIN R] 7 unit SQ AC 02/22/14 02/23/14 Unknown History Active Meds: Active Medications Acetaminophen (Tylenol) 650 mg PO Q6H PRN PRN Reason: Pain, Mild (1-3) Aspirin (Baby Aspirin) 81 mg PO DAILY [facility] Last Admin: 09/05/20 09:21 Dose: 81 mg Documented by: Calcitriol (Rocaltrol) 0.5 mcg PO QDAY [facility] Last Admin: 09/05/20 14:46 Dose: 0.5 mcg Documented by: Dexamethasone (Decadron) 6 mg IV DAILY [facility] Stop: 09/12/20 10:01 Last Admin: 09/05/20 09:21 Dose: 6 mg Documented by: Ferrous Sulfate (Feosol) 325 mg PO DAILY [facility] Last Admin: 09/05/20 09:21 Dose: 325 mg Documented by: Hydromorphone HCl (Dilaudid) 0.25 mg IV Q4H PRN PRN Reason: Pain, Moderate (4-6) Pantoprazole Sodium 80 mg/ (Sodium Chloride) 100 mls @ 10 mls/hr IV DIRECT [facility] Last Admin: 09/05/20 14:46 Dose: 8 mg/hr, 10 mls/hr Documented by: Sodium Chloride (Nacl 0.9% 500 Ml) 500 mls @ 0 mls/hr IV ONCE JAE Dextrose (D5w) 1,000 mls @ 50 mls/hr IV DIRECT [facility] Last Admin: 09/05/20 14:47 Dose: 50 mls/hr Documented by: Insulin Glargine (Lantus) 20 units SUB-Q QHS [facility] Insulin Human Lispro (Humalog) 0 unit SUB-Q ACHS [facility]; Protocol Last Admin: 09/05/20 12:05 Dose: Not Given Documented by: Metolazone (Zaroxolyn) 10 mg PO QDAY JAE Potassium Bicarbonate (Klor-Con) 50 meq PO QDAY [facility] Sertraline HCl (Zoloft) 50 mg PO DAILY [facility] Last Admin: 09/05/20 09:21 Dose: 50 mg Documented by: Sodium Chloride (Sodium Chloride Flush Syringe 10 Ml) 10 ml IV BID [facility] Last Admin: 09/05/20 09:21 Dose: 10 ml Documented by: Sodium Chloride (Sodium Chloride Flush Syringe 10 Ml) 10 ml IV PRN PRN PRN Reason: LINE FLUSH Review of Systems All systems: negative (see HPI) Exam - Physical Exam Narrative exam: Physical Exam: reviewed ED and hospitalist notes, limited due to conservation of PPE and decrease risk of transmission. General appearance: limited due to conservation of PPE Eyes: limited due to conservation of PPE HENT: Atraumatic; limited due to conservation of PPE Lungs: limited due to conservation of PPE CV: limited due to conservation of PPE Abdomen: limited due to conservation of PPE Extremities: limited due to conservation of PPE Skin: limited due to conservation of PPE Psych: limited due to conservation of PPE Neuro: limited due to conservation of PPE - Constitutional Vitals: Temp Pulse Resp BP Pulse Ox 97.7 F 60 17 172/87 97 09/05/20 12:00 09/05/20 13:00 09/05/20 13:00 09/05/20 13:00 09/05/20 13:00 Results - Labs CBC & Chem 7: 09/05/20 08:28 09/05/20 08:28 Labs: Abnormal lab results 09/01/20 09/04/20 09/04/20 Range/Units 23:15 18:58 22:28 WBC (4.5-11.0) K/mm3 RBC (3.65-5.03) M/mm3 Hgb 8.7 L D (10.1-14.3) gm/dl Hct 27.4 L D (30.3-42.9) % MCH (28-32) pg RDW (13.2-15.2) % Lymph % (Auto) (13.4-35.0) % Lymph # (Auto) (1.2-5.4) K/mm3 Seg Neutrophils % (40.0-70.0) % Seg Neutrophils # (1.8-7.7) K/mm3 PT (12.2-14.9) Sec. INR (0.87-1.13) Sodium (137-145) mmol/L Chloride (98-107) mmol/L Carbon Dioxide (22-30) mmol/L BUN (7-17) mg/dL Creatinine (0.6-1.2) mg/dL Glucose (65-100) mg/dL POC Glucose 181 H (70-105) mg/dL Calcium (8.4-10.2) mg/dL Alkaline Phosphatase (35-129) units/L Total Protein (6.3-8.2) g/dL Albumin (3.9-5) g/dL Crossmatch See Detail 09/05/20 09/05/20 09/05/20 Range/Units 00:55 08:28 08:28 WBC 11.8 H (4.5-11.0) K/mm3 RBC 2.93 L (3.65-5.03) M/mm3 Hgb 7.8 L 7.7 L (10.1-14.3) gm/dl Hct 23.8 L 23.2 L (30.3-42.9) % MCH 26 L (28-32) pg RDW 28.4 H (13.2-15.2) % Lymph % (Auto) 9.2 L (13.4-35.0) % Lymph # (Auto) 1.1 L (1.2-5.4) K/mm3 Seg Neutrophils % 85.4 H (40.0-70.0) % Seg Neutrophils # 10.1 H (1.8-7.7) K/mm3 PT 23.2 H (12.2-14.9) Sec. INR 2.01 H (0.87-1.13) Sodium (137-145) mmol/L Chloride (98-107) mmol/L Carbon Dioxide (22-30) mmol/L BUN (7-17) mg/dL Creatinine (0.6-1.2) mg/dL Glucose (65-100) mg/dL POC Glucose (70-105) mg/dL Calcium (8.4-10.2) mg/dL Alkaline Phosphatase (35-129) units/L Total Protein (6.3-8.2) g/dL Albumin (3.9-5) g/dL Crossmatch 09/05/20 Range/Units 08:28 WBC (4.5-11.0) K/mm3 RBC (3.65-5.03) M/mm3 Hgb (10.1-14.3) gm/dl Hct (30.3-42.9) % MCH (28-32) pg RDW (13.2-15.2) % Lymph % (Auto) (13.4-35.0) % Lymph # (Auto) (1.2-5.4) K/mm3 Seg Neutrophils % (40.0-70.0) % Seg Neutrophils # (1.8-7.7) K/mm3 PT (12.2-14.9) Sec. INR (0.87-1.13) Sodium 152 H (137-145) mmol/L Chloride 125.7 H (98-107) mmol/L Carbon Dioxide 13 L (22-30) mmol/L BUN 86 H (7-17) mg/dL Creatinine 2.3 H (0.6-1.2) mg/dL Glucose 152 H (65-100) mg/dL POC Glucose (70-105) mg/dL Calcium 7.9 L (8.4-10.2) mg/dL Alkaline Phosphatase 155 H (35-129) units/L Total Protein 4.6 L (6.3-8.2) g/dL Albumin 2.5 L (3.9-5) g/dL Crossmatch - Imaging and Cardiology Venous US: report reviewed, image reviewed Assessment and Plan 64-year-old female with erosive esophagitis, and anemia who has responded to blood transfusions and is relatively stable with hemoglobin at this time. Discussed with gastroenterology that, if possible, would prefer not to place IVC filter. Patient has bilateral lower extremity DVTs extending into the iliac system which means that there is limited flow through the IVC and placement of a IVC filter may result in clot propagation to the level of the IVC filter, and after awhile, probably above the IVC filter. Given patient's multiple medical issues, she is not a candidate for mechanical thrombectomy. Recommend anticoagulation, if patient can tolerate it. If she cannot, then IVC filter may be necessary, but we would prefer anticoagulation if at all possible. Gastroenterology understands and agrees. Appreciate Dr. Whitehead and Dr. Iverson understanding.
--- NOTE | 2020-09-05 18:14 | Gastroenterology Progress Note ---
Assessment and Plan - Patient Problems (1) Iron deficiency anemia due to chronic blood loss Current Visit: Yes Status: Acute Plan to address problem: - Anemic x several years (per [facility] records); EGD 2014 showed severe esophagitis and mild gastritis; no colonoscopy on file. - No gross bleeding here, and tolerating protonix. - Will avoid EGD/colon while COVID positive with pneumonia, unless gross bleeding. - Add MVI daily, and continue iron/protonix. - Will resume Eliquis tomorrow if the hct continues to improve (though still not clear that DVTs are acute, not chronic). 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 (2) COVID-19 Current Visit: Yes Status: Acute Subjective Date of service: 09/05/20 Principal diagnosis: Iron Def Anemia Interval history: The patient has had no gross bleeding (via rectal tube). She is tolerating her diet, and denies N/V/abdominal pain/severe SOB. Objective - Constitutional Vitals: Temp Pulse Resp BP Pulse Ox 97.7 F 70 19 176/75 96 09/05/20 12:00 09/05/20 17:00 09/05/20 17:00 09/05/20 17:00 09/05/20 16:00 General appearance: no acute distress - Respiratory Respiratory effort: normal Respiratory: bilateral: CTA - Cardiovascular Rhythm: regular Heart Sounds: Present: S1 & S2 - Gastrointestinal General gastrointestinal: Present: soft, non-tender, non-distended Rectal Exam: other (Rectal tube with greenish stool) - Labs CBC & Chem 7: 09/05/20 08:28 09/05/20 08:28 Labs: Laboratory Results - last 24 hr 09/04/20 09/04/20 09/05/20 18:58 22:28 00:55 WBC RBC Hgb 8.7 L D 7.8 L Hct 27.4 L D 23.8 L MCV MCH MCHC RDW Plt Count Lymph % (Auto) [place] % (Auto) Eos % (Auto) Baso % (Auto) Lymph # (Auto) [place] # (Auto) Eos # (Auto) Baso # (Auto) Seg Neutrophils % Seg Neutrophils # PT INR Sodium Potassium Chloride Carbon Dioxide Anion Gap BUN Creatinine Estimated GFR BUN/Creatinine Ratio Glucose POC Glucose 181 H Calcium Total Bilirubin AST ALT Alkaline Phosphatase Total Protein Albumin Albumin/Globulin Ratio 09/05/20 09/05/20 09/05/20 07:56 08:28 08:28 WBC 11.8 H RBC 2.93 L Hgb 7.7 L Hct 23.2 L MCV 79 MCH 26 L MCHC 33 RDW 28.4 H Plt Count 160 Lymph % (Auto) 9.2 L [place] % (Auto) 5.3 Eos % (Auto) 0.0 Baso % (Auto) 0.1 Lymph # (Auto) 1.1 L [place] # (Auto) 0.6 Eos # (Auto) 0.0 Baso # (Auto) 0.0 Seg Neutrophils % 85.4 H Seg Neutrophils # 10.1 H PT 23.2 H INR 2.01 H Sodium Potassium Chloride Carbon Dioxide Anion Gap BUN Creatinine Estimated GFR BUN/Creatinine Ratio Glucose POC Glucose 176 H Calcium Total Bilirubin AST ALT Alkaline Phosphatase Total Protein Albumin Albumin/Globulin Ratio 09/05/20 09/05/20 09/05/20 08:28 12:14 16:58 WBC RBC Hgb Hct MCV MCH MCHC RDW Plt Count Lymph % (Auto) [place] % (Auto) Eos % (Auto) Baso % (Auto) Lymph # (Auto) [place] # (Auto) Eos # (Auto) Baso # (Auto) Seg Neutrophils % Seg Neutrophils # PT INR Sodium 152 H Potassium 4.2 Chloride 125.7 H Carbon Dioxide 13 L Anion Gap 18 BUN 86 H Creatinine 2.3 H Estimated GFR 26 BUN/Creatinine Ratio 37 Glucose 152 H POC Glucose 131 H 94 Calcium 7.9 L Total Bilirubin 0.40 AST 36 ALT 21 Alkaline Phosphatase 155 H Total Protein 4.6 L Albumin 2.5 L Albumin/Globulin Ratio 1.2
[2020-09-05] MEDS: metOLazone 2.5 MG TAB PO SCH (18:20)
[2020-09-05] MEDS: K-LYTE 25 MEQ TABLET EFF PO SCH (18:21)
[2020-09-05 19:19] LABS: Hematocrit 25.7 % (30.3-42.9)
[2020-09-05] MEDS: INSULIN GLARGINE 100 UNITS/ML SUB-Q SCH (22:48)
[2020-09-05] MEDS: PANTOPRAZOLE 40 MG INJ IV SCH (22:48)
[2020-09-06 00:14] LABS: Hematocrit 22.8 % (30.3-42.9); Hemoglobin 7.4 gm/dl (10.1-14.3)
[2020-09-06 08:20] LABS: INR 2.37 (0.87-1.13)
[2020-09-06 08:27] LABS: Albumin 2.4 g/dL (3.9-5); Calcium 8.2 mg/dL (8.4-10.2)
[2020-09-06 09:04] LABS: Hematocrit 21.9 % (30.3-42.9); Hemoglobin 7.3 gm/dl (10.1-14.3); Mean Corpuscular HGB Conc 33 % (30-34); Mean Corpuscular Volume 79 fl (79-97); Platelet Count 153 K/mm3 (140-440); Red Blood Count 2.76 M/mm3 (3.65-5.03)
[2020-09-06] MEDS: INSULIN LISPRO 100 UNIT/ML VIAL 3 mL SUB-Q SCH ×4 (09:16→22:32)
[2020-09-06] MEDS: ASPIRIN 81 MG TAB CHEW PO SCH (09:17)
[2020-09-06] MEDS: dexAMETHasone 4 MG/ML VIAL IV SCH (09:17)
[2020-09-06] MEDS: FERROUS SULFATE 325 MG TAB PO SCH (09:17)
[2020-09-06 09:18] LABS: Creatinine,Urine 43.2 mg/dL (0.1-20.0)
[2020-09-06] MEDS: MULTIVITAMINS ,THERAPEUTIC TAB PO SCH (09:18)
[2020-09-06] MEDS: CALCITRIOL 0.5 MCG CAP PO SCH (09:18)
[2020-09-06] MEDS: PANTOPRAZOLE 40 MG INJ IV SCH ×2 (09:18→22:34)
[2020-09-06] MEDS: K-LYTE 25 MEQ TABLET EFF PO SCH (09:18)
[2020-09-06] MEDS: SERTRALINE 50 MG TAB PO SCH (09:19)
[2020-09-06] MEDS: metOLazone 2.5 MG TAB PO SCH ×2 (09:19→14:40)
[2020-09-06 09:57] LABS: Protein/Creatinine Ratio,Urine 6.9
--- NOTE | 2020-09-06 10:34 | Progress Note ---
Assessment and Plan 1. Acute kidney injury: DIRK secondary to combination of Vasomotor nephropathy and severe sepsis. Renal US negative for hydro. Urine studies ordered. Monitor renal function. Creatinine level is same as yesterday. Prior Creatinine was 1.2 in 2014. Likely CKD stage 4. Renal prognosis is guarded. Avoid nephrotoxic agents. Meds dosage based on GFR. 2. FEN: Mild hyperkalemia, improved, monitor. Hyperchloremic Metabolic acidosis, on Pot bicarbonate, monitor. Unable to give Sod bicarb due to hypernatremia. Hypernatremia, increase IV D5W. Suspected Volume overload, Metolazone. Monitor lytes. 3. Nephrotic syndrome: Likely diabetic nephropathy. DEMARCUS, ANCA, complements, GBM ab and SPEP ordered. 4. Severe sepsis, POA: Presented with hypothermia, hypotension. Likely secondary to bilateral pneumonia. 5. Severe COVID infection: Followed by ID. 6. Bilateral LE DVT, POA. 7. Microcytic anemia, POA: S/p PRBC. Monitor. 8. Thrombocytopenia, POA. 9. Acute diarrhea: Likely associated to COVID-19 infection. C. difficile test negative. Subjective: Patient was seen and examined at the bedside. Denies any new complaint. General Appearance: General appearance: well-developed, well-nourished, appears stated age, no distress, obese HEENT: ATNC, JAYCE Neck: supple Respiratory: ctab Cardiology: regular, S1S2, no murmur Gastrointestinal: normoactive bowel sounds, no tenderness, not distended Integumentary: no obvious rash Neurologic: alert, moving extremities, confusion noted Ext: trace dependent edema, b/l BKA Subjective Date of service: 09/06/20 Principal diagnosis: Iron Def Anemia Objective - Vital Signs Vital signs: Vital Signs - 12hr 09/05/20 09/05/20 09/05/20 22:50 23:00 23:25 Temperature Pulse Rate 90 Pulse Rate [ From Monitor] Respiratory 16 21 20 Rate Respiratory 20 Rate [ Generalized] Blood Pressure 171/79 O2 Sat by Pulse 96 Oximetry 09/05/20 09/05/20 09/06/20 23:28 23:58 00:00 Temperature 98.0 F Pulse Rate 65 Pulse Rate [ From Monitor] Respiratory 28 H 20 22 Rate Respiratory Rate [ Generalized] Blood Pressure 162/108 O2 Sat by Pulse 93 Oximetry 09/06/20 09/06/20 09/06/20 00:11 01:00 02:00 Temperature Pulse Rate 61 100 H 64 Pulse Rate [ From Monitor] Respiratory 15 15 Rate Respiratory Rate [ Generalized] Blood Pressure 157/101 157/73 O2 Sat by Pulse 94 94 Oximetry 09/06/20 09/06/20 09/06/20 03:00 04:00 04:27 Temperature 97.2 F L Pulse Rate 61 71 77 Pulse Rate [ From Monitor] Respiratory 15 13 Rate Respiratory Rate [ Generalized] Blood Pressure 157/73 152/78 O2 Sat by Pulse 94 94 Oximetry 09/06/20 09/06/20 09/06/20 05:00 06:00 07:00 Temperature Pulse Rate 60 61 67 Pulse Rate [ From Monitor] Respiratory 16 17 20 Rate Respiratory Rate [ Generalized] Blood Pressure 159/102 162/81 172/66 O2 Sat by Pulse 95 95 94 Oximetry 09/06/20 09/06/20 08:00 09:00 Temperature 97.4 F L Pulse Rate 91 H 69 Pulse Rate [ 92 H From Monitor] Respiratory 9 L 13 Rate Respiratory Rate [ Generalized] Blood Pressure 183/64 163/66 O2 Sat by Pulse 96 95 Oximetry - Lab 09/06/20 06:43 09/06/20 06:43 Most recent lab results Calcium 8.2 mg/dL (8.4-10.2) L 09/06/20 06:43 Phosphorus 3.50 mg/dL (2.5-4.5) 09/06/20 06:43 Urine Creatinine 43.2 mg/dL (0.1-20.0) H 09/06/20 06:52 Urine Sodium 84 mmol/L 09/06/20 06:52 Urine Total Protein 298 mg/dL (5-11.8) H 09/06/20 06:52 Medications & Allergies - Medications Allergies/Adverse Reactions: Allergies No Known Allergies Allergy (Unverified 02/14/14 19:23) Home Medications: Home Medications Medication Instructions Recorded Confirmed Last Taken Type Aspirin [[place] Aspirin] 81 mg PO DAILY 02/14/14 02/22/14 02/14/14 11:00 History Ferrous Sulfate [Feosol 325mg] 325 mg PO DAILY 02/14/14 02/22/14 02/14/14 11:00 History Sertraline [Zoloft] 50 mg PO DAILY 02/14/14 02/22/14 02/14/14 11:00 History amLODIPine 5 mg PO DAILY 02/14/14 02/22/14 02/14/14 11:00 History hydroCHLOROthiazide 25 mg PO DAILY 02/14/14 02/22/14 02/14/14 11:00 History [Hydrochlorothiazide] lisinopriL [Zestril TAB] 10 mg PO DAILY 02/14/14 02/22/14 02/14/14 11:00 History Insulin NPH Hum/Reg Insulin Hm 100 units SQ BID 02/22/14 02/23/14 Unknown History [Humulin 70-30 Vial] Insulin Regular, Human [HumuLIN R] 7 unit SQ AC 02/22/14 02/23/14 Unknown History Active Medications: Generic Name Dose Route Start Last Admin Trade Name Freq PRN Reason Stop Dose Admin Acetaminophen 650 mg 09/02/20 00:30 09/05/20 22:50 Tylenol PO 650 mg Q6H PRN Administration Pain, Mild (1-3) Aspirin 81 mg 09/02/20 10:00 09/06/20 09:17 Baby Aspirin PO 81 mg DAILY JAE Administration Calcitriol 0.5 mcg 09/05/20 13:00 09/06/20 09:18 Rocaltrol PO 0.5 mcg QDAY JAE Administration Dexamethasone 6 mg 09/03/20 18:00 09/06/20 09:17 Decadron IV 09/12/20 10:01 6 mg DAILY JAE Administration Ferrous Sulfate 325 mg 09/02/20 10:00 09/06/20 09:17 Feosol PO 325 mg DAILY JAE Administration Hydromorphone HCl 0.25 mg 09/02/20 00:30 09/05/20 23:28 Dilaudid IV 0.25 mg Q4H PRN Administration Pain, Moderate (4-6) Sodium Chloride 500 mls @ 0 mls/hr 09/04/20 13:03 Nacl 0.9% 500 Ml IV ONCE JAE As Directed Dextrose 1,000 mls @ 50 mls/hr 09/05/20 13:00 09/05/20 14:47 D5w IV 50 mls/hr DIRECT JAE Administration Insulin Glargine 20 units 09/05/20 12:14 09/05/20 22:48 Lantus SUB-Q 20 units QHS JAE Administration Insulin Human Lispro 0 unit 09/03/20 11:30 09/06/20 09:16 Humalog SUB-Q Not Given ACHS [facility] Protocol Metolazone 10 mg 09/05/20 13:00 09/06/20 09:19 Zaroxolyn PO 10 mg QDAY JAE Administration Multivitamins 1 each 09/06/20 10:00 09/06/20 09:18 Theragran Tab PO 1 each QDAY JAE Administration Pantoprazole Sodium 40 mg 09/05/20 22:00 09/06/20 09:18 Protonix IV 40 mg BID JAE Administration Potassium Bicarbonate 50 meq 09/05/20 13:00 09/06/20 09:18 Klor-Con PO 50 meq QDAY JAE Administration Sertraline HCl 50 mg 09/02/20 10:00 09/06/20 09:19 Zoloft PO 50 mg DAILY JAE Administration Sodium Chloride 10 ml 09/02/20 10:00 09/06/20 09:18 Sodium Chloride Flush Syringe 10 Ml IV 10 ml BID JAE Administration Sodium Chloride 10 ml 09/02/20 00:30 Sodium Chloride Flush Syringe 10 Ml IV PRN PRN LINE FLUSH
--- NOTE | 2020-09-06 11:07 | Progress Note ---
Assessment and Plan Assessment and plan: 64 YO Female with HTN, DM, Anemia, PVD, Nicotine Dependence, positive coronavirus test on presented to the emergency room for further evaluation. Patient states that she has experienced subjective fever, generalized weakness, body aches, shortness of breath, nausea, multiple loose stools, lower extremity edema over the past 1 week with progressively worsening symptoms over the past 3 to 4 days prior to presentation. Patient was brought to the emergency room as a result. Here, patient found to be hypotensive with a systolic blood pressure ranging from 53-94. Patient was also hypothermic with a body temperature of 93.3 F. Patient met criteria for sepsis protocol and found to have bilateral pneumonia, metabolic acidosis, acute kidney injury. Patient admitted to telemetry due to increased risk of multisystem decompensation. Patient initiated on coronavirus protocol. Coronavirus PCR has been ordered and is pending at time of admission. Patient remained hypotensive in spite of IV fluid resuscitation therapy. Patient subsequently upgraded to IMCU. 09/03. While in the ER, patient had an ultrasound Doppler performed that showed bilateral DVT involving the iliac veins. Patient was started on heparin drip. ID consulted for COVID-19 and nephrology consulted for DIRK. Patient seen and examined at bedside this morning. She has no complaints this morning. Her hemoglobin dropped to 6.4 this morning. Patient will get transfused 1 unit of PRBCs. Later this p.m., was notified by nurse that patient is having tarry dark stool and hematemesis. Heparin drip discontinued. Patient started on PPI drip and made n.p.o. GI is has been consulted. Patient will need to have an upper endoscopy. She has bilateral lower extremity DVT and will need vascular surgery evaluation to determine if she is a candidate for IVC filter placement. 09/04. Patient seen and examined at bedside this morning. Labs reviewed showed hemoglobin 5.3. Patient will receive 2 units PRBCs. FFP also ordered. GI evaluation pending. Continue PPIs. Vascular surgeon to see to determine if patient is a candidate for IVC filter placement for DVT. 09/05. Hb stable this morning. GI on board. On PPI drip. 09/06. Gastroenterology and vascular surgery recommendations reviewed. Patient not a good candidate for IVC filter placement due to location of the clot/thrombosis. Plan is for patient to have anticoagulation on while monitoring hemoglobin. Patient's INR is more than 2 at this time so we will ho ld anticoagulation for now and monitor hemoglobin. Plan to initiate anticoagulation when INR is less than 2. We will preferably use heparin products as she has a high chance of bleeding. Continue to monitor hemoglobin. Hb 7.3 this a.m. Problems --Sepsis Current Visit: Yes Status: Acute Qualifiers: Acute renal failure type: with acute tubular necrosis Plan to address problem: Continue IV antibiotics Blood culture NTD ID recommendations appreciated --Bilateral pneumonia Current Visit: Yes Status: Acute Plan to address problem: From Covid Continue antibiotics Dexamethasone ID recommendations appreciated --COVID-19 Current Visit: Yes Status: Acute Plan to address problem: Coronavirus protocol: Coronavirus PCR ordered and is pending at time of admission, contact precaution, isolation precautions, prone positioning while in bed, IV steroid therapy, IV antibiotic therapy. Supportive care. --Acute on chronic anemia Current Visit: Yes Status: Acute on chronic Plan to address problem: Status post transfusion of 1 unit PRBC s/p 3 units PRBCs . FFP was not transfused [not sure why] PPI. H/H q8 As per GI, does not look like patient is having GI bleed at this time Continue clear liquid diet and advance as tolerated --Possible GI bleed Current Visit: No Status: Acute Plan to address problem: Advance diet GI on board --Acute kidney injury (DIRK) with acute tubular necrosis (ATN) Current Visit: Yes Status: Acute Plan to address problem: Continue to monitor renal function Nephrology following closely --Hypernatremia Current Visit: Yes Status: Acute Plan to address problem: D5 half NS Nephrology on board --Bilateral lower extremity DVT Current Visit: Yes Status: Acute Qualifiers: Encounter type: initial encounter Qualified Code(s): T68.XXXA - Hypothermia, initial encounter Plan to address problem: Consulted vascular surgeon for consideration of IVC filter placement. As per vascular surgery, patient is not a good candidate for IVC filter placement --Diabetes Current Visit: Yes Status: Acute Plan to address problem: Sliding-scale insulin therapy, Accu-Chek, hypoglycemia protocol, consistent carbohydrate diet. --DVT prophylaxis Current Visit: No Status: Acute Plan to address problem: Anticoagulation --Advance care planning Current Visit: Yes Status: Acute Plan to address problem: Disease education conducted, prognosis discussed, patient is full code, care plan discussed, patient knowledges understanding and agreement with care plan. +30 minutes. --Nicotine dependence Current Visit: Yes Status: Acute Qualifiers: Nicotine product type: cigarettes Substance use status: in withdrawal Qualified Code(s): F17.213 - Nicotine dependence, cigarettes, with withdrawal Plan to address problem: Supportive care, smoking cessation counseling, behavior change counseling, +15 minutes. History Interval history: Patient seen and examined at bedside this morning Hemoglobin 7.2 this morning. INR 2.3 Vascular surgeon GI recommendations appreciated. Hospitalist Physical - Physical exam Narrative exam: VITAL SIGNS: Reviewed. GENERAL: Awake HEAD: No signs of head trauma. EYES: Pupils are equal. Extraocular motions intact. MOUTH: Oropharynx is normal. NECK: No adenopathy, no JVD. CHEST: Chest with diminished breath sounds bilaterally. No wheezes, rales, or rhonchi. CARDIAC: Regular rate and rhythm. S1 and S2, without murmurs, gallops, or rubs. ABDOMEN: Soft, non tender and non distended. No rebound or guarding, and no masses palpated. Bowel Sounds normal. MUSCULOSKELETAL: bilateral BKA NEUROLOGIC EXAM: Awake PSYCHIATRIC: Stable mood SKIN: No obvious lesions - Constitutional Vitals: Temp Pulse Resp BP Pulse Ox 97.4 F L 62 17 151/63 95 09/06/20 08:00 09/06/20 10:00 09/06/20 10:00 09/06/20 10:00 09/06/20 10:00 Results - Labs CBC & Chem 7: 09/06/20 06:43 09/06/20 06:43 Labs: Laboratory Last Values WBC 9.2 K/mm3 (4.5-11.0) 09/06/20 06:43 RBC 2.76 M/mm3 (3.65-5.03) L 09/06/20 06:43 Hgb 7.3 gm/dl (10.1-14.3) L 09/06/20 06:43 Hct 21.9 % (30.3-42.9) L 09/06/20 06:43 MCV 79 fl (79-97) 09/06/20 06:43 MCH 26 pg (28-32) L 09/06/20 06:43 MCHC 33 % (30-34) 09/06/20 06:43 RDW 29.0 % (13.2-15.2) H 09/06/20 06:43 Plt Count 153 K/mm3 (140-440) 09/06/20 06:43 Lymph % (Auto) 9.2 % (13.4-35.0) L 09/05/20 08:28 [place]kin % (Auto) 5.3 % (0.0-7.3) 09/05/20 08:28 Eos % (Auto) 0.0 % (0.0-4.3) 09/05/20 08:28 Baso % (Auto) 0.1 % (0.0-1.8) 09/05/20 08:28 Lymph # (Auto) 1.1 K/mm3 (1.2-5.4) L 09/05/20 08:28 [place] # (Auto) 0.6 K/mm3 (0.0-0.8) 09/05/20 08:28 Eos # (Auto) 0.0 K/mm3 (0.0-0.4) 09/05/20 08:28 Baso # (Auto) 0.0 K/mm3 (0.0-0.1) 09/05/20 08:28 Add Manual Diff Complete 09/03/20 05:17 Total Counted 100 09/03/20 05:17 Seg Neutrophils % 85.4 % (40.0-70.0) H 09/05/20 08:28 Seg Neuts % (Manual) 76.0 % (40.0-70.0) H 09/03/20 05:17 Band Neutrophils % 0 % 09/03/20 05:17 Lymphocytes % (Manual) 18.0 % (13.4-35.0) 09/03/20 05:17 Reactive Lymphs % (Man) 0 % 09/03/20 05:17 Monocytes % (Manual) 6.0 % (0.0-7.3) 09/03/20 05:17 Eosinophils % (Manual) 0 % (0.0-4.3) 09/03/20 05:17 Basophils % (Manual) 0 % (0.0-1.8) 09/03/20 05:17 Metamyelocytes % 0 % 09/03/20 05:17 Myelocytes % 0 % 09/03/20 05:17 Promyelocytes % 0 % 09/03/20 05:17 Blast Cells % 0 % 09/03/20 05:17 Nucleated RBC % Not Reportable 09/03/20 05:17 Seg Neutrophils # 10.1 K/mm3 (1.8-7.7) H 09/05/20 08:28 Seg Neutrophils # Man 7.8 K/mm3 (1.8-7.7) H 09/03/20 05:17 Band Neutrophils # 0.0 K/mm3 09/03/20 05:17 Lymphocytes # (Manual) 1.8 K/mm3 (1.2-5.4) 09/03/20 05:17 Abs React Lymphs (Man) 0.0 K/mm3 09/03/20 05:17 Monocytes # (Manual) 0.6 K/mm3 (0.0-0.8) 09/03/20 05:17 Eosinophils # (Manual) 0.0 K/mm3 (0.0-0.4) 09/03/20 05:17 Basophils # (Manual) 0.0 K/mm3 (0.0-0.1) 09/03/20 05:17 Metamyelocytes # 0.0 K/mm3 09/03/20 05:17 Myelocytes # 0.0 K/mm3 09/03/20 05:17 Promyelocytes # 0.0 K/mm3 09/03/20 05:17 Blast Cells # 0.0 K/mm3 09/03/20 05:17 WBC Morphology Not Reportable 09/03/20 05:17 Hypersegmented Neuts Not Reportable 09/03/20 05:17 Hyposegmented Neuts Not Reportable 09/03/20 05:17 Hypogranular Neuts Not Reportable 09/03/20 05:17 Smudge Cells Not Reportable 09/03/20 05:17 Toxic Granulation Not Reportable 09/03/20 05:17 Toxic Vacuolation Not Reportable 09/03/20 05:17 Dohle Bodies Not Reportable 09/03/20 05:17 Pelger-Huet Anomaly Not Reportable 09/03/20 05:17 Ignacia Rods Not Reportable 09/03/20 05:17 Platelet Estimate Consistent w auto 09/03/20 05:17 Clumped Platelets Not Reportable 09/03/20 05:17 Plt Clumps, EDTA Not Reportable 09/03/20 05:17 Large Platelets Not Reportable 09/03/20 05:17 Giant Platelets Not Reportable 09/03/20 05:17 Platelet Satelliting Not Reportable 09/03/20 05:17 Plt Morphology Comment Not Reportable 09/03/20 05:17 RBC Morphology Not Reportable 09/03/20 05:17 Dimorphic RBCs Not Reportable 09/03/20 05:17 Polychromasia Not Reportable 09/03/20 05:17 Hypochromasia 1+ 09/03/20 05:17 Poikilocytosis Not Reportable 09/03/20 05:17 Anisocytosis 3+ 09/03/20 05:17 Microcytosis 1+ 09/03/20 05:17 Macrocytosis Not Reportable 09/03/20 05:17 Spherocytes Not Reportable 09/03/20 05:17 Pappenheimer Bodies Not Reportable 09/03/20 05:17 Sickle Cells Not Reportable 09/03/20 05:17 Target Cells Not Reportable 09/03/20 05:17 Tear Drop Cells Not Reportable 09/03/20 05:17 Ovalocytes Few 09/03/20 05:17 Helmet Cells Not Reportable 09/03/20 05:17 Horvath-Amasa Bodies Not Reportable 09/03/20 05:17 Dovray Rings Not Reportable 09/03/20 05:17 Trilla Cells 1+ 09/03/20 05:17 Bite Cells Not Reportable 09/03/20 05:17 Crenated Cell Not Reportable 09/03/20 05:17 Elliptocytes Not Reportable 09/03/20 05:17 Acanthocytes (Spur) Not Reportable 09/03/20 05:17 Rouleaux Not Reportable 09/03/20 05:17 Hemoglobin C Crystals Not Reportable 09/03/20 05:17 Schistocytes 1+ 09/03/20 05:17 Malaria parasites Not Reportable 09/03/20 05:17 Molina Bodies Not Reportable 09/03/20 05:17 Hem Pathologist Commnt No 09/03/20 05:17 PT 26.4 Sec. (12.2-14.9) H 09/06/20 06:43 INR 2.37 (0.87-1.13) H 09/06/20 06:43 APTT 29.2 Sec. (24.2-36.6) 09/02/20 13:52 D-Dimer 1076.18 ng/mlDDU (0-234) H 09/01/20 21:55 Heparin Anti-Xa Level 0.94 U.I./ml (0.3-0.7) H 09/03/20 05:17 Sodium 151 mmol/L (137-145) H 09/06/20 06:43 Potassium 4.5 mmol/L (3.6-5.0) 09/06/20 06:43 Chloride 125.5 mmol/L (98-107) H 09/06/20 06:43 Carbon Dioxide 12 mmol/L (22-30) L 09/06/20 06:43 Anion Gap 18 mmol/L 09/06/20 06:43 BUN 83 mg/dL (7-17) H 09/06/20 06:43 Creatinine 2.3 mg/dL (0.6-1.2) H 09/06/20 06:43 Estimated GFR 26 ml/min 09/06/20 06:43 BUN/Creatinine Ratio 36 % 09/06/20 06:43 Glucose 130 mg/dL (65-100) H 09/06/20 06:43 POC Glucose 171 mg/dL (70-105) H 09/05/20 21:22 Lactic Acid 0.60 mmol/L (0.7-2.0) L 09/02/20 08:10 Calcium 8.2 mg/dL (8.4-10.2) L 09/06/20 06:43 Phosphorus 3.50 mg/dL (2.5-4.5) 09/06/20 06:43 Ferritin 313.5 ng/mL (10.0-200.0) H 09/01/20 21:55 Total Bilirubin 0.40 mg/dL (0.1-1.2) 09/06/20 06:43 AST 35 units/L (5-40) 09/06/20 06:43 ALT 23 units/L (7-56) 09/06/20 06:43 Alkaline Phosphatase 157 units/L (35-129) H 09/06/20 06:43 Lactate Dehydrogenase 435 units/L (91-180) H 09/01/20 21:55 C-Reactive Protein 2.30 mg/dL (0.00-1.30) H 09/01/20 21:55 NT-Pro-B Natriuret Pep 34549 pg/mL (0-900) H 09/01/20 21:55 Total Protein 4.5 g/dL (6.3-8.2) L 09/06/20 06:43 Albumin 2.4 g/dL (3.9-5) L 09/06/20 06:43 Albumin/Globulin Ratio 1.1 % 09/06/20 06:43 Procalcitonin 0.10 ng/mL (<0.15) 09/01/20 21:55 TSH 0.735 mlU/mL (0.270-4.200) 09/02/20 00:45 Free T4 0.92 ng/dL (0.76-1.46) 09/02/20 00:45 Free T4 0.94 ng/dL (0.76-1.46) 09/02/20 00:45 PTH Intact 820.4 pg/mL (15-65) H 09/04/20 05:18 Urine Color Elena (Yellow) 09/02/20 03:44 Urine Turbidity Cloudy (Clear) 09/02/20 03:44 Urine pH 7.0 (5.0-7.0) 09/02/20 03:44 Ur Specific [place] 1.015 (1.003-1.030) 09/02/20 03:44 Urine Protein >500 mg/dL (Negative) 09/02/20 03:44 Urine Glucose (UA) Neg mg/dL (Negative) 09/02/20 03:44 Urine Ketones Neg mg/dL (Negative) 09/02/20 03:44 Urine Blood Neg (Negative) 09/02/20 03:44 Urine Nitrite Neg (Negative) 09/02/20 03:44 Urine Bilirubin Neg (Negative) 09/02/20 03:44 Urine Urobilinogen < 2.0 mg/dL (<2.0) 09/02/20 03:44 Ur Leukocyte Esterase Neg (Negative) 09/02/20 03:44 Urine WBC (Auto) < 1.0 /HPF (0.0-6.0) 09/02/20 03:44 Urine RBC (Auto) < 1.0 /HPF (0.0-6.0) 09/02/20 03:44 U Epithel Cells (Auto) < 1.0 /HPF (0-13.0) 09/02/20 03:44 Urine Bacteria (Auto) 2+ /HPF (Negative) 09/02/20 03:44 Urine Mucus Few /HPF 09/02/20 03:44 Urine Creatinine 43.2 mg/dL (0.1-20.0) H 09/06/20 06:52 Protein/Creatinin Ratio 6.90 09/06/20 06:52 Urine Sodium 84 mmol/L 09/06/20 06:52 Urine Total Protein 298 mg/dL (5-11.8) H 09/06/20 06:52 C. difficile Tox (PCR) Negative (Negative) 09/02/20 13:05 SARS-CoV-2 IgG Ab Nonreactive (NonReactive) 09/02/20 08:10 Blood Type O POSITIVE 09/01/20 23:15 Antibody Screen Negative 09/01/20 23:15 Crossmatch See Detail 09/01/20 23:15 Microbiology: Microbiology 09/01/20 23:27 Peripheral/Venous Blood Culture - Preliminary NO GROWTH AFTER 4 DAYS 09/01/20 23:44 Peripheral/Venous Blood Culture - Preliminary NO GROWTH AFTER 4 DAYS [place]/IV: Voiding Method External Female Catheter IV Catheter Type [Right Hand] INT / Saline Lock IV Catheter Type [Right Upper INT / Saline Lock arm] IV Catheter Type [Right INT / Saline Lock External Jugular] Active Medications - Current Medications Current Medications: Generic Name Dose Route Start Last Admin Trade Name Freq PRN Reason Stop Dose Admin Acetaminophen 650 mg 09/02/20 00:30 09/05/20 22:50 Tylenol PO 650 mg Q6H PRN Administration Pain, Mild (1-3) Aspirin 81 mg 09/02/20 10:00 09/06/20 09:17 Baby Aspirin PO 81 mg DAILY JAE Administration Calcitriol 0.5 mcg 09/05/20 13:00 09/06/20 09:18 Rocaltrol PO 0.5 mcg QDAY JAE Administration Dexamethasone 6 mg 09/03/20 18:00 09/06/20 09:17 Decadron IV 09/12/20 10:01 6 mg DAILY JAE Administration Ferrous Sulfate 325 mg 09/02/20 10:00 09/06/20 09:17 Feosol PO 325 mg DAILY JAE Administration Hydromorphone HCl 0.25 mg 09/02/20 00:30 09/05/20 23:28 Dilaudid IV 0.25 mg Q4H PRN Administration Pain, Moderate (4-6) Sodium Chloride 500 mls @ 0 mls/hr 09/04/20 13:03 Nacl 0.9% 500 Ml IV ONCE JAE As Directed Dextrose 1,000 mls @ 75 mls/hr 09/05/20 13:00 09/05/20 14:47 D5w IV 50 mls/hr DIRECT JAE Administration Insulin Glargine 20 units 09/05/20 12:14 09/05/20 22:48 Lantus SUB-Q 20 units QHS JAE Administration Insulin Human Lispro 0 unit 09/03/20 11:30 09/06/20 09:16 Humalog SUB-Q Not Given ACHS JAE Protocol Metolazone 10 mg 09/05/20 13:00 09/06/20 09:19 Zaroxolyn PO 10 mg QDAY JAE Administration Multivitamins 1 each 09/06/20 10:00 09/06/20 09:18 Theragran Tab PO 1 each QDAY JAE Administration Pantoprazole Sodium 40 mg 09/05/20 22:00 09/06/20 09:18 Protonix IV 40 mg BID JAE Administration Potassium Bicarbonate 50 meq 09/05/20 13:00 09/06/20 09:18 Klor-Con PO 50 meq QDAY JAE Administration Sertraline HCl 50 mg 09/02/20 10:00 09/06/20 09:19 Zoloft PO 50 mg DAILY JAE Administration Sodium Chloride 10 ml 09/02/20 10:00 09/06/20 09:18 Sodium Chloride Flush Syringe 10 Ml IV 10 ml BID JAE Administration Sodium Chloride 10 ml 09/02/20 00:30 Sodium Chloride Flush Syringe 10 Ml IV PRN PRN LINE FLUSH Nutrition/Malnutrition Assess - Dietary Evaluation Nutrition/Malnutrition Findings: Nutrition Notes Start: 09/03/20 13:19 Freq: Status: Active Protocol: Document 09/04/20 10:42 AL (Rec: 09/04/20 10:46 AL [id number]) Co-Sign 09/04/20 10:42 MK Nutrition Notes Initial or Follow up Brief Note Current Diagnosis CKD(stage I-IV),Diabetes, Sepsis,Hypertension Other Pertinent Diagnosis Pneu, anemia, GI bleed Pmhx: covid +, bilateral BKA, Current Diet NPO Subjective/Other Information Yesterday, RN stated that patient was eating well. Patient is currently NPO for procedure today. Coumadin was d/c, diet education is no longer appropriate at this time. Per RN, patient is vomiting and pulled out NGT. Nutrition Intervention Follow-Up By: 09/07/20 Additional Comments F/U: full assessment, diet advancement
[2020-09-06 11:29] LABS: Basophils % (Manual) 0 % (0.0-1.8); Eosinophils % (Manual) 0 % (0.0-4.3); Total Cells Counted 100
[2020-09-06 11:30] LABS: Hypochromasia 1+
[2020-09-06 11:31] LABS: Burr Cells 1+; Schistocytes Rare
[2020-09-06 11:32] LABS: Platelet Estimate Consistent w Auto
[2020-09-06] MEDS: DEXTROSE 5% IN WATER 1,000 ML IV SCH (14:35)
--- NOTE | 2020-09-06 15:04 | Gastroenterology Progress Note ---
Assessment and Plan - Patient Problems (1) Iron deficiency anemia due to chronic blood loss Current Visit: Yes Status: Acute Plan to address problem: - Anemic x several years (per [facility] records); EGD 2014 showed severe esophagitis and mild gastritis; no colonoscopy on file. - No gross bleeding here, and tolerating protonix. Does have black liquid stool in rectal pouch, but on daily iron pills this is unreliable. She has no thick stool consistent with melena. - Will avoid EGD/colon while COVID positive with pneumonia, unless gross bleeding. - Continue MVI daily, and continue iron/protonix. - Will continue to hold anticoagulation since INR >2.5. OK to continue daily ASA. (2) COVID-19 Current Visit: Yes Status: Acute Subjective Date of service: 09/06/20 Principal diagnosis: Iron Def Anemia Interval history: The patient has no N/V/abdominal pain, and is tolerating her regular food. She has a rectal pouch with liquid stool, but no hematemesis. Objective - Constitutional Vitals: Temp Pulse Resp BP Pulse Ox 97.4 F L 60 21 151/63 96 09/06/20 08:00 09/06/20 11:00 09/06/20 11:00 09/06/20 11:00 09/06/20 11:00 General appearance: no acute distress - Respiratory Respiratory effort: normal Respiratory: bilateral: CTA - Cardiovascular Rhythm: regular Heart Sounds: Present: S1 & S2 - Gastrointestinal General gastrointestinal: Present: soft, non-tender, non-distended - Labs CBC & Chem 7: 09/06/20 06:43 09/06/20 06:43 Labs: Laboratory Results - last 24 hr 09/05/20 09/05/20 09/05/20 07:56 12:14 16:58 WBC RBC Hgb Hct MCV MCH MCHC RDW Plt Count Add Manual Diff Total Counted Seg Neuts % (Manual) Band Neutrophils % Lymphocytes % (Manual) Reactive Lymphs % (Man) Monocytes % (Manual) Eosinophils % (Manual) Basophils % (Manual) Metamyelocytes % Myelocytes % Promyelocytes % Blast Cells % Nucleated RBC % Seg Neutrophils # Man Band Neutrophils # Lymphocytes # (Manual) Abs React Lymphs (Man) Monocytes # (Manual) Eosinophils # (Manual) Basophils # (Manual) Metamyelocytes # Myelocytes # Promyelocytes # Blast Cells # WBC Morphology Hypersegmented Neuts Hyposegmented Neuts Hypogranular Neuts Smudge Cells Toxic Granulation Toxic Vacuolation Dohle Bodies Pelger-Huet Anomaly Ignacia Rods Platelet Estimate Clumped Platelets Plt Clumps, EDTA Large Platelets Giant Platelets Platelet Satelliting Plt Morphology Comment RBC Morphology Dimorphic RBCs Polychromasia Hypochromasia Poikilocytosis Anisocytosis Microcytosis Macrocytosis Spherocytes Pappenheimer Bodies Sickle Cells Target Cells Tear Drop Cells Ovalocytes Helmet Cells Horvath-Sawmill Bodies [place] Rings Flora Cells Bite Cells Crenated Cell Elliptocytes Acanthocytes (Spur) Rouleaux Hemoglobin C Crystals Schistocytes Malaria parasites Molina Bodies Hem Pathologist Commnt PT INR Sodium Potassium Chloride Carbon Dioxide Anion Gap BUN Creatinine Estimated GFR BUN/Creatinine Ratio Glucose POC Glucose 176 H 131 H 94 Calcium Phosphorus Total Bilirubin AST ALT Alkaline Phosphatase Total Protein Albumin Albumin/Globulin Ratio Urine Creatinine Protein/Creatinin Ratio Urine Sodium Urine Total Protein 09/05/20 09/05/20 09/06/20 18:58 21:22 00:03 WBC RBC Hgb 8.0 L 7.4 L Hct 25.7 L 22.8 L MCV MCH MCHC RDW Plt Count Add Manual Diff Total Counted Seg Neuts % (Manual) Band Neutrophils % Lymphocytes % (Manual) Reactive Lymphs % (Man) Monocytes % (Manual) Eosinophils % (Manual) Basophils % (Manual) Metamyelocytes % Myelocytes % Promyelocytes % Blast Cells % Nucleated RBC % Seg Neutrophils # Man Band Neutrophils # Lymphocytes # (Manual) Abs React Lymphs (Man) Monocytes # (Manual) Eosinophils # (Manual) Basophils # (Manual) Metamyelocytes # Myelocytes # Promyelocytes # Blast Cells # WBC Morphology Hypersegmented Neuts Hyposegmented Neuts Hypogranular Neuts Smudge Cells Toxic Granulation Toxic Vacuolation Dohle Bodies Pelger-Huet Anomaly Ignacia Rods Platelet Estimate Clumped Platelets Plt Clumps, EDTA Large Platelets Giant Platelets Platelet Satelliting Plt Morphology Comment RBC Morphology Dimorphic RBCs Polychromasia Hypochromasia Poikilocytosis Anisocytosis Microcytosis Macrocytosis Spherocytes Pappenheimer Bodies Sickle Cells Target Cells Tear Drop Cells Ovalocytes Helmet Cells [place]-Sawmill Bodies [place] Rings Flora Cells Bite Cells Crenated Cell Elliptocytes Acanthocytes (Spur) Rouleaux Hemoglobin C Crystals Schistocytes Malaria parasites Molina Bodies Hem Pathologist Commnt PT INR Sodium Potassium Chloride Carbon Dioxide Anion Gap BUN Creatinine Estimated GFR BUN/Creatinine Ratio Glucose POC Glucose 171 H Calcium Phosphorus Total Bilirubin AST ALT Alkaline Phosphatase Total Protein Albumin Albumin/Globulin Ratio Urine Creatinine Protein/Creatinin Ratio Urine Sodium Urine Total Protein 09/06/20 09/06/20 09/06/20 06:43 06:43 06:43 WBC 9.2 RBC 2.76 L Hgb 7.3 L Hct 21.9 L MCV 79 MCH 26 L MCHC 33 RDW 29.0 H Plt Count 153 Add Manual Diff Complete Total Counted 100 Seg Neuts % (Manual) 94.0 H Band Neutrophils % 0 Lymphocytes % (Manual) 2.0 L Reactive Lymphs % (Man) 0 Monocytes % (Manual) 3.0 Eosinophils % (Manual) 0 Basophils % (Manual) 0 Metamyelocytes % 1.0 Myelocytes % 0 Promyelocytes % 0 Blast Cells % 0 Nucleated RBC % 3.0 H Seg Neutrophils # Man 8.6 H Band Neutrophils # 0.0 Lymphocytes # (Manual) 0.2 L Abs React Lymphs (Man) 0.0 Monocytes # (Manual) 0.3 Eosinophils # (Manual) 0.0 Basophils # (Manual) 0.0 Metamyelocytes # 0.1 Myelocytes # 0.0 Promyelocytes # 0.0 Blast Cells # 0.0 WBC Morphology Not Reportable Hypersegmented Neuts Not Reportable Hyposegmented Neuts Not Reportable Hypogranular Neuts Not Reportable Smudge Cells Not Reportable Toxic Granulation Not Reportable Toxic Vacuolation Not Reportable Dohle Bodies Not Reportable Pelger-Huet Anomaly Not Reportable Ignacia Rods Not Reportable Platelet Estimate Consistent w auto Clumped Platelets Not Reportable Plt Clumps, EDTA Not Reportable Large Platelets Not Reportable Giant Platelets Not Reportable Platelet Satelliting Not Reportable Plt Morphology Comment Not Reportable RBC Morphology Not Reportable Dimorphic RBCs Not Reportable Polychromasia Few Hypochromasia 1+ Poikilocytosis Not Reportable Anisocytosis Not Reportable Microcytosis Not Reportable Macrocytosis Not Reportable Spherocytes Not Reportable Pappenheimer Bodies Not Reportable Sickle Cells Not Reportable Target Cells Not Reportable Tear Drop Cells Not Reportable Ovalocytes Not Reportable Helmet Cells Not Reportable Horvath-Sawmill Bodies Not Reportable [place] Rings Not Reportable [place] Cells 1+ Bite Cells Not Reportable Crenated Cell Not Reportable Elliptocytes Few Acanthocytes (Spur) Not Reportable Rouleaux Not Reportable Hemoglobin C Crystals Not Reportable Schistocytes Rare Malaria parasites Not Reportable Omlina Bodies Not Reportable Hem Pathologist Commnt No PT 26.4 H INR 2.37 H Sodium 151 H Potassium 4.5 Chloride 125.5 H Carbon Dioxide 12 L Anion Gap 18 BUN 83 H Creatinine 2.3 H Estimated GFR 26 BUN/Creatinine Ratio 36 Glucose 130 H POC Glucose Calcium 8.2 L Phosphorus 3.50 Total Bilirubin 0.40 AST 35 ALT 23 Alkaline Phosphatase 157 H Total Protein 4.5 L Albumin 2.4 L Albumin/Globulin Ratio 1.1 Urine Creatinine Protein/Creatinin Ratio Urine Sodium Urine Total Protein 09/06/20 09/06/20 06:43 06:52 WBC RBC Hgb Hct MCV MCH MCHC RDW Plt Count Add Manual Diff Total Counted Seg Neuts % (Manual) Band Neutrophils % Lymphocytes % (Manual) Reactive Lymphs % (Man) Monocytes % (Manual) Eosinophils % (Manual) Basophils % (Manual) Metamyelocytes % Myelocytes % Promyelocytes % Blast Cells % Nucleated RBC % Seg Neutrophils # Man Band Neutrophils # Lymphocytes # (Manual) Abs React Lymphs (Man) Monocytes # (Manual) Eosinophils # (Manual) Basophils # (Manual) Metamyelocytes # Myelocytes # Promyelocytes # Blast Cells # WBC Morphology TNR Hypersegmented Neuts Hyposegmented Neuts Hypogranular Neuts Smudge Cells Toxic Granulation Toxic Vacuolation Dohle Bodies Pelger-Huet Anomaly Ignacia Rods Platelet Estimate Clumped Platelets Plt Clumps, EDTA Large Platelets Giant Platelets Platelet Satelliting Plt Morphology Comment RBC Morphology Dimorphic RBCs Polychromasia Hypochromasia Poikilocytosis Anisocytosis Microcytosis Macrocytosis Spherocytes Pappenheimer Bodies Sickle Cells Target Cells Tear Drop Cells Ovalocytes Helmet Cells Horvath-Sawmill Bodies [place] Rings [place] Cells Bite Cells Crenated Cell Elliptocytes Acanthocytes (Spur) Rouleaux Hemoglobin C Crystals Schistocytes Malaria parasites Molina Bodies Hem Pathologist Commnt PT INR Sodium Potassium Chloride Carbon Dioxide Anion Gap BUN Creatinine Estimated GFR BUN/Creatinine Ratio Glucose POC Glucose Calcium Phosphorus Total Bilirubin AST ALT Alkaline Phosphatase Total Protein Albumin Albumin/Globulin Ratio Urine Creatinine 43.2 H Protein/Creatinin Ratio 6.90 Urine Sodium 84 Urine Total Protein 298 H
[2020-09-06 15:11] LABS: Hematocrit 24.5 % (30.3-42.9); Hemoglobin 7.7 gm/dl (10.1-14.3)
[2020-09-07] MEDS ORDERED: ZIPRASIDONE MESYLATE 20 MG VIAL IM ONE
[2020-09-07] MEDS: INSULIN GLARGINE 100 UNITS/ML SUB-Q SCH ×2 (00:12→22:35)
[2020-09-07] MEDS ORDERED: WATER FOR INJ Sterile (PF) 10 ML ONE (00:57)
[2020-09-07 02:13] LABS: Hematocrit 23.4 % (30.3-42.9); Hemoglobin 7.5 gm/dl (10.1-14.3)
[2020-09-07] MEDS: INSULIN LISPRO 100 UNIT/ML VIAL 3 mL SUB-Q SCH ×4 (08:30→22:35)
--- NOTE | 2020-09-07 09:14 | Progress Note ---
Assessment and Plan 1. Acute kidney injury: DIRK secondary to combination of Vasomotor nephropathy and severe sepsis. Renal US negative for hydro. Urine studies ordered. Monitor renal function. Creatinine leveled off. Prior Creatinine was 1.2 in 2014. Likely CKD stage 4. Renal prognosis is guarded. Avoid nephrotoxic agents. Meds dosage based on GFR. 2. FEN: Mild hyperkalemia, improved, monitor. Hyperchloremic Metabolic acidosis, on Pot bicarbonate, monitor. Unable to give Sod bicarb due to hypernatremia. Hypernatremia, continue IV D5W. Suspected Volume overload, Metolazone. Monitor lytes. 3. Nephrotic syndrome: Likely diabetic nephropathy. DEMARCUS, ANCA, complements, GBM Ab and SPEP ordered. 4. Severe sepsis, POA: Presented with hypothermia, hypotension. Likely secondary to bilateral pneumonia. 5. Severe COVID infection: Followed by ID. 6. Bilateral LE DVT, POA. 7. Microcytic anemia, POA: S/p PRBC. Monitor. 8. Thrombocytopenia, POA. 9. Acute diarrhea: Likely associated to COVID-19 infection. C. difficile test negative. Subjective: Patient was seen and examined at the bedside. Denies any new complaint. General Appearance: General appearance: well-developed, well-nourished, appears stated age, no distress, obese HEENT: ATNC, JAYCE Neck: supple Respiratory: ctab Cardiology: regular, S1S2, no murmur Gastrointestinal: normoactive bowel sounds, no tenderness, not distended Integumentary: no obvious rash Neurologic: alert, moving extremities, confusion noted Ext: trace dependent edema, b/l BKA Subjective Date of service: 09/07/20 Principal diagnosis: Iron Def Anemia Objective - Vital Signs Vital signs: Vital Signs - 12hr 09/06/20 09/06/20 09/07/20 21:44 22:00 05:15 Temperature 98.0 F 97.5 F L Pulse Rate 63 65 Respiratory 22 20 Rate Respiratory 19 Rate [ Generalized] Blood Pressure 166/73 174/74 O2 Sat by Pulse 89 89 Oximetry - Lab 09/07/20 09:13 09/07/20 09:13 Most recent lab results Calcium 8.2 mg/dL (8.4-10.2) L 09/06/20 06:43 Phosphorus 3.50 mg/dL (2.5-4.5) 09/06/20 06:43 Urine Creatinine 43.2 mg/dL (0.1-20.0) H 09/06/20 06:52 Urine Sodium 84 mmol/L 09/06/20 06:52 Urine Total Protein 298 mg/dL (5-11.8) H 09/06/20 06:52 Medications & Allergies - Medications Allergies/Adverse Reactions: Allergies No Known Allergies Allergy (Unverified 02/14/14 19:23) Home Medications: Home Medications Medication Instructions Recorded Confirmed Last Taken Type Aspirin [Melwood Aspirin] 81 mg PO DAILY 02/14/14 02/22/14 02/14/14 11:00 History Ferrous Sulfate [Feosol 325mg] 325 mg PO DAILY 02/14/14 02/22/14 02/14/14 11:00 History Sertraline [Zoloft] 50 mg PO DAILY 02/14/14 02/22/14 02/14/14 11:00 History amLODIPine 5 mg PO DAILY 02/14/14 02/22/14 02/14/14 11:00 History hydroCHLOROthiazide 25 mg PO DAILY 02/14/14 02/22/14 02/14/14 11:00 History [Hydrochlorothiazide] lisinopriL [Zestril TAB] 10 mg PO DAILY 02/14/14 02/22/14 02/14/14 11:00 History Insulin NPH Hum/Reg Insulin Hm 100 units SQ BID 02/22/14 02/23/14 Unknown History [Humulin 70-30 Vial] Insulin Regular, Human [HumuLIN R] 7 unit SQ AC 02/22/14 02/23/14 Unknown History Active Medications: Generic Name Dose Route Start Last Admin Trade Name Freq PRN Reason Stop Dose Admin Acetaminophen 650 mg 09/02/20 00:30 09/05/20 22:50 Tylenol PO 650 mg Q6H PRN Administration Pain, Mild (1-3) Aspirin 81 mg 09/02/20 10:00 09/06/20 09:17 Baby Aspirin PO 81 mg DAILY JAE Administration Calcitriol 0.5 mcg 09/05/20 13:00 09/06/20 09:18 Rocaltrol PO 0.5 mcg QDAY JAE Administration Dexamethasone 6 mg 09/03/20 18:00 09/06/20 09:17 Decadron IV 09/12/20 10:01 6 mg DAILY JAE Administration Ferrous Sulfate 325 mg 09/02/20 10:00 09/06/20 09:17 Feosol PO 325 mg DAILY JAE Administration Hydromorphone HCl 0.25 mg 09/02/20 00:30 09/05/20 23:28 Dilaudid IV 0.25 mg Q4H PRN Administration Pain, Moderate (4-6) Sodium Chloride 500 mls @ 0 mls/hr 09/04/20 13:03 Nacl 0.9% 500 Ml IV ONCE JAE As Directed Dextrose 1,000 mls @ 75 mls/hr 09/05/20 13:00 09/06/20 14:35 D5w IV 50 mls/hr DIRECT JAE Administration Insulin Glargine 20 units 09/05/20 12:14 09/07/20 00:12 Lantus SUB-Q 20 units QHS JAE Administration Insulin Human Lispro 0 unit 09/03/20 11:30 09/07/20 08:30 Humalog SUB-Q Not Given ACHS [facility] Protocol Metolazone 10 mg 09/07/20 10:00 Zaroxolyn PO QDAY JAE Multivitamins 1 each 09/06/20 10:00 09/06/20 09:18 Theragran Tab PO 1 each QDAY JAE Administration Pantoprazole Sodium 40 mg 09/05/20 22:00 09/06/20 22:34 Protonix IV 40 mg BID JAE Administration Potassium Bicarbonate 50 meq 09/05/20 13:00 09/06/20 09:18 Klor-Con PO 50 meq QDAY JAE Administration Sertraline HCl 50 mg 09/02/20 10:00 09/06/20 09:19 Zoloft PO 50 mg DAILY JAE Administration Sodium Chloride 10 ml 09/02/20 10:00 09/06/20 22:34 Sodium Chloride Flush Syringe 10 Ml IV 10 ml BID JAE Administration Sodium Chloride 10 ml 09/02/20 00:30 Sodium Chloride Flush Syringe 10 Ml IV PRN PRN LINE FLUSH
[2020-09-07 10:04] LABS: Albumin 2.4 g/dL (3.9-5); Calcium 8.4 mg/dL (8.4-10.2)
[2020-09-07 10:24] LABS: Hematocrit 25.5 % (30.3-42.9); Hemoglobin 8.2 gm/dl (10.1-14.3); Mean Corpuscular HGB Conc 32 % (30-34); Mean Corpuscular Volume 82 fl (79-97); Platelet Count 140 K/mm3 (140-440); Red Blood Count 3.13 M/mm3 (3.65-5.03)
[2020-09-07 10:25] LABS: INR 2.74 (0.87-1.13)
[2020-09-07 10:31] LABS: Red Cell Distribution Width 28.6 % (13.2-15.2)
[2020-09-07] MEDS: PANTOPRAZOLE 40 MG INJ IV SCH ×2 (10:42→22:37)
[2020-09-07] MEDS: MULTIVITAMINS ,THERAPEUTIC TAB PO SCH (10:42)
[2020-09-07] MEDS: dexAMETHasone 4 MG/ML VIAL IV SCH (10:42)
[2020-09-07] MEDS: ASPIRIN 81 MG TAB CHEW PO SCH (10:42)
[2020-09-07] MEDS: SERTRALINE 50 MG TAB PO SCH (10:42)
[2020-09-07] MEDS: FERROUS SULFATE 325 MG TAB PO SCH (10:42)
[2020-09-07] MEDS: metOLazone 5 MG TAB PO SCH (10:43)
[2020-09-07] MEDS: K-LYTE 25 MEQ TABLET EFF PO SCH (10:43)
[2020-09-07 11:12] LABS: Basophils % (Manual) 0 % (0.0-1.8); Eosinophils % (Manual) 0 % (0.0-4.3); Total Cells Counted 100
[2020-09-07 11:14] LABS: Anisocytosis 3+; Burr Cells 1+; Hypochromasia 1+
[2020-09-07 11:15] LABS: Platelet Estimate Consistent w Auto; Poikilocytosis Few
[2020-09-07] MEDS: CALCITRIOL 0.5 MCG CAP PO SCH (12:09)
--- NOTE | 2020-09-07 13:51 | Progress Note ---
Assessment and Plan Cultures: Blood culture no growth today. SARS CoV2 PCR positive [facility] 08/24/2020. Assessment: 64 years old female with history of diabetes mellitus, hypertension, peripheral vascular disease status post bilateral BKA, chronic kidney disease, tobacco use, tested positive for COVID-19 outpatient the day before admission, admitted on 09/01/2020 due to a week history of cough, generalized weakness, body aches, subjective fever, shortness of breath, nausea, multiple diarrheic episodes, patient recently admitted to [facility] from 08/23/2020 until 08/27/2020 for symptomatic anemia, hemoglobin at 4.5, refused further work-up and tested positive for COVID-19, asymptomatic: #Severe sepsis: Hypothermia and hypotension improving, likely due to bilateral pneumonia +/-severe anemia. #Severe COVID pneumonia: Patient tested positive at [facility] on 08/24/2020. Initial ferritin normal, D-dimer elevated 2.4. D-dimer here 08/10/1976. Ferritin slightly elevated 313. Chest x-ray shows extensive bilateral airspace disease. Patient is currently on room air. There may be a component of volume overload. Echocardiogram at [facility] EF 43%. BNP 70,000. Procalcitonin normal, hence I doubt bacterial component. #Elevated LFTs: from COVID #Hypoxia: Currently on room air, O2 sat dropped to 89% #DIRK on CKD: from COVID #Acute thrombocytopenia: Platelets 08/27/2020 were 146. Likely due to COVID-19 infection. #Acute diarrhea: Multiple episodes. Likely associated to COVID-19 infection. C. difficile toxin PCR negative. #Bilateral lower extremity DVT: Anticoagulation on hold due to severe anemia #Severe anemia: Patient refused GI bleed work-up at [facility], on PPI Recommendations: -Continue Solu-Medrol x 10 days -No indication for remdesivir as pt is symptomatic for over 10 days so no benefit -Monitor inflammatory markers - ferritin, Ddimer, CRP, LDH -monitor O2 sats High risk mortality Will follow Beba Parker MD Infectious Diseases [facility]igner [facility] M [phone] O [phone] Subjective Date of service: 09/07/20 Principal diagnosis: Iron Def Anemia Interval history: Currently on room air no fever Objective - Exam Narrative Exam: Physical Exam: reviewed ED and hospitalist notes, limited due to conservation of PPE and decrease risk of transmission. General appearance: limited due to conservation of PPE Eyes: limited due to conservation of PPE HENT: Atraumatic; limited due to conservation of PPE Lungs: limited due to conservation of PPE CV: limited due to conservation of PPE Abdomen: limited due to conservation of PPE Extremities: limited due to conservation of PPE Skin: limited due to conservation of PPE Psych: limited due to conservation of PPE Neuro: limited due to conservation of PPE - Constitutional Vitals: Vital Signs Temp Pulse Resp BP Pulse Ox 97.5 F L 65 20 174/74 89 09/07/20 05:15 09/07/20 05:15 09/07/20 05:15 09/07/20 05:15 09/07/20 05:15 Temperature -Last 24 Hours Temperature 97.5 F Temperature 98.0 F - Labs CBC & Chem 7: 09/07/20 09:13 09/07/20 09:13 Labs: Abnormal lab results 09/06/20 09/06/20 09/06/20 Range/Units 08:31 11:31 14:59 RBC (3.65-5.03) M/mm3 Hgb 7.7 L (10.1-14.3) gm/dl Hct 24.5 L (30.3-42.9) % MCH (28-32) pg RDW (13.2-15.2) % Seg Neuts % (Manual) (40.0-70.0) % Lymphocytes % (Manual) (13.4-35.0) % Nucleated RBC % (0.0-0.9) % Seg Neutrophils # Man (1.8-7.7) K/mm3 Lymphocytes # (Manual) (1.2-5.4) K/mm3 PT (12.2-14.9) Sec. INR (0.87-1.13) Sodium (137-145) mmol/L Chloride (98-107) mmol/L Carbon Dioxide (22-30) mmol/L BUN (7-17) mg/dL Creatinine (0.6-1.2) mg/dL Glucose (65-100) mg/dL POC Glucose 148 H 171 H (70-105) mg/dL Iron (37-170) ug/dL TIBC (250-450) mcg/dL Alkaline Phosphatase (35-129) units/L Total Protein (6.3-8.2) g/dL Albumin (3.9-5) g/dL 09/06/20 09/06/20 09/07/20 Range/Units 18:03 21:36 01:27 RBC (3.65-5.03) M/mm3 Hgb 7.5 L (10.1-14.3) gm/dl Hct 23.4 L (30.3-42.9) % MCH (28-32) pg RDW (13.2-15.2) % Seg Neuts % (Manual) (40.0-70.0) % Lymphocytes % (Manual) (13.4-35.0) % Nucleated RBC % (0.0-0.9) % Seg Neutrophils # Man (1.8-7.7) K/mm3 Lymphocytes # (Manual) (1.2-5.4) K/mm3 PT (12.2-14.9) Sec. INR (0.87-1.13) Sodium (137-145) mmol/L Chloride (98-107) mmol/L Carbon Dioxide (22-30) mmol/L BUN (7-17) mg/dL Creatinine (0.6-1.2) mg/dL Glucose (65-100) mg/dL POC Glucose 135 H 131 H (70-105) mg/dL Iron (37-170) ug/dL TIBC (250-450) mcg/dL Alkaline Phosphatase (35-129) units/L Total Protein (6.3-8.2) g/dL Albumin (3.9-5) g/dL 09/07/20 09/07/20 09/07/20 Range/Units 09:13 09:13 09:13 RBC 3.13 L (3.65-5.03) M/mm3 Hgb 8.2 L (10.1-14.3) gm/dl Hct 25.5 L (30.3-42.9) % MCH 26 L (28-32) pg RDW 28.6 H (13.2-15.2) % Seg Neuts % (Manual) 94.0 H (40.0-70.0) % Lymphocytes % (Manual) 3.0 L (13.4-35.0) % Nucleated RBC % 2.0 H (0.0-0.9) % Seg Neutrophils # Man 9.5 H (1.8-7.7) K/mm3 Lymphocytes # (Manual) 0.3 L (1.2-5.4) K/mm3 PT 29.6 H (12.2-14.9) Sec. INR 2.74 H (0.87-1.13) Sodium 152 H (137-145) mmol/L Chloride 129.1 H (98-107) mmol/L Carbon Dioxide 13 L (22-30) mmol/L BUN 78 H (7-17) mg/dL Creatinine 2.4 H (0.6-1.2) mg/dL Glucose 111 H (65-100) mg/dL POC Glucose (70-105) mg/dL Iron 28 L (37-170) ug/dL TIBC 188 L (250-450) mcg/dL Alkaline Phosphatase 191 H (35-129) units/L Total Protein 5.0 L (6.3-8.2) g/dL Albumin 2.4 L (3.9-5) g/dL
--- NOTE | 2020-09-07 14:52 | Gastroenterology Progress Note ---
Assessment and Plan - Patient Problems (1) Iron deficiency anemia due to chronic blood loss Current Visit: Yes Status: Acute Plan to address problem: - Anemic x several years (per [facility] records); EGD 2014 showed severe esophagitis and mild gastritis; no colonoscopy on file. - No gross bleeding here, and tolerating protonix. Does have black liquid stool in rectal pouch, but on daily iron pills this is unreliable. She has no thick stool consistent with melena. - Will avoid EGD/colon while COVID positive with pneumonia, unless gross bleeding. - Continue MVI daily, and continue iron/protonix. Labs improved 09/07/2020. - Will continue to hold anticoagulation since INR >2.5. OK to continue daily ASA. (2) COVID-19 Current Visit: Yes Status: Acute Subjective Date of service: 09/07/20 Principal diagnosis: Iron Def Anemia Interval history: The patient is clinically stable without acute decompensation. Has transferred to the floor. No blood in BMs noted (dark on iron). Still has diarrhea. Objective - Constitutional Vitals: Temp Pulse Resp BP Pulse Ox 97.5 F L 65 20 174/74 89 09/07/20 05:15 09/07/20 05:15 09/07/20 05:15 09/07/20 05:15 09/07/20 05:15 General appearance: no acute distress - Respiratory Respiratory effort: normal Respiratory: bilateral: CTA - Cardiovascular Rhythm: regular Heart Sounds: Present: S1 & S2 - Gastrointestinal General gastrointestinal: Present: soft, non-tender, non-distended - Labs CBC & Chem 7: 09/07/20 09:13 09/07/20 09:13 Labs: Laboratory Results - last 24 hr 09/06/20 09/06/20 09/06/20 08:31 11:31 14:59 WBC RBC Hgb 7.7 L Hct 24.5 L MCV MCH MCHC RDW Plt Count Add Manual Diff Total Counted Seg Neuts % (Manual) Band Neutrophils % Lymphocytes % (Manual) Reactive Lymphs % (Man) Monocytes % (Manual) Eosinophils % (Manual) Basophils % (Manual) Metamyelocytes % Myelocytes % Promyelocytes % Blast Cells % Nucleated RBC % Seg Neutrophils # Man Band Neutrophils # Lymphocytes # (Manual) Abs React Lymphs (Man) Monocytes # (Manual) Eosinophils # (Manual) Basophils # (Manual) Metamyelocytes # Myelocytes # Promyelocytes # Blast Cells # WBC Morphology Hypersegmented Neuts Hyposegmented Neuts Hypogranular Neuts Smudge Cells Toxic Granulation Toxic Vacuolation Dohle Bodies Pelger-Huet Anomaly Ignacia Rods Platelet Estimate Clumped Platelets Plt Clumps, EDTA Large Platelets Giant Platelets Platelet Satelliting Plt Morphology Comment RBC Morphology Dimorphic RBCs Polychromasia Hypochromasia Poikilocytosis Anisocytosis Microcytosis Macrocytosis Spherocytes Pappenheimer Bodies Sickle Cells Target Cells Tear Drop Cells Ovalocytes Helmet Cells [place] Bodies Elmer Rings Flora Cells Bite Cells Crenated Cell Elliptocytes Acanthocytes (Spur) Rouleaux Hemoglobin C Crystals Schistocytes Malaria parasites [place]ina Bodies Hem Pathologist Commnt PT INR Sodium Potassium Chloride Carbon Dioxide Anion Gap BUN Creatinine Estimated GFR BUN/Creatinine Ratio Glucose POC Glucose 148 H 171 H Calcium Iron TIBC Total Bilirubin AST ALT Alkaline Phosphatase Total Protein Albumin Albumin/Globulin Ratio Vitamin B12 09/06/20 09/06/20 09/07/20 18:03 21:36 01:27 WBC RBC Hgb 7.5 L Hct 23.4 L MCV MCH MCHC RDW Plt Count Add Manual Diff Total Counted Seg Neuts % (Manual) Band Neutrophils % Lymphocytes % (Manual) Reactive Lymphs % (Man) Monocytes % (Manual) Eosinophils % (Manual) Basophils % (Manual) Metamyelocytes % Myelocytes % Promyelocytes % Blast Cells % Nucleated RBC % Seg Neutrophils # Man Band Neutrophils # Lymphocytes # (Manual) Abs React Lymphs (Man) Monocytes # (Manual) Eosinophils # (Manual) Basophils # (Manual) Metamyelocytes # Myelocytes # Promyelocytes # Blast Cells # WBC Morphology Hypersegmented Neuts Hyposegmented Neuts Hypogranular Neuts Smudge Cells Toxic Granulation Toxic Vacuolation Dohle Bodies Pelger-Huet Anomaly Ignacia Rods Platelet Estimate Clumped Platelets Plt Clumps, EDTA Large Platelets Giant Platelets Platelet Satelliting Plt Morphology Comment RBC Morphology Dimorphic RBCs Polychromasia Hypochromasia Poikilocytosis Anisocytosis Microcytosis Macrocytosis Spherocytes Pappenheimer Bodies Sickle Cells Target Cells Tear Drop Cells Ovalocytes Helmet Cells [place] Bodies Elmer Rings Flora Cells Bite Cells Crenated Cell Elliptocytes Acanthocytes (Spur) Rouleaux Hemoglobin C Crystals Schistocytes Malaria parasites [place] Bodies Hem Pathologist Commnt PT INR Sodium Potassium Chloride Carbon Dioxide Anion Gap BUN Creatinine Estimated GFR BUN/Creatinine Ratio Glucose POC Glucose 135 H 131 H Calcium Iron TIBC Total Bilirubin AST ALT Alkaline Phosphatase Total Protein Albumin Albumin/Globulin Ratio Vitamin B12 09/07/20 09/07/20 09/07/20 08:20 09:13 09:13 WBC 10.1 RBC 3.13 L Hgb 8.2 L Hct 25.5 L MCV 82 MCH 26 L MCHC 32 RDW 28.6 H Plt Count 140 Add Manual Diff Complete Total Counted 100 Seg Neuts % (Manual) 94.0 H Band Neutrophils % 0 Lymphocytes % (Manual) 3.0 L Reactive Lymphs % (Man) 0 Monocytes % (Manual) 3.0 Eosinophils % (Manual) 0 Basophils % (Manual) 0 Metamyelocytes % 0 Myelocytes % 0 Promyelocytes % 0 Blast Cells % 0 Nucleated RBC % 2.0 H Seg Neutrophils # Man 9.5 H Band Neutrophils # 0.0 Lymphocytes # (Manual) 0.3 L Abs React Lymphs (Man) 0.0 Monocytes # (Manual) 0.3 Eosinophils # (Manual) 0.0 Basophils # (Manual) 0.0 Metamyelocytes # 0.0 Myelocytes # 0.0 Promyelocytes # 0.0 Blast Cells # 0.0 WBC Morphology Not Reportable Hypersegmented Neuts Not Reportable Hyposegmented Neuts Not Reportable Hypogranular Neuts Not Reportable Smudge Cells Not Reportable Toxic Granulation Not Reportable Toxic Vacuolation Not Reportable Dohle Bodies Not Reportable Pelger-Huet Anomaly Not Reportable Ignacia Rods Not Reportable Platelet Estimate Consistent w auto Clumped Platelets Not Reportable Plt Clumps, EDTA Not Reportable Large Platelets Not Reportable Giant Platelets Not Reportable Platelet Satelliting Not Reportable Plt Morphology Comment Not Reportable RBC Morphology Not Reportable Dimorphic RBCs Not Reportable Polychromasia Few Hypochromasia 1+ Poikilocytosis Few Anisocytosis 3+ Microcytosis Not Reportable Macrocytosis Not Reportable Spherocytes Not Reportable Pappenheimer Bodies Not Reportable Sickle Cells Not Reportable Target Cells Not Reportable Tear Drop Cells Not Reportable Ovalocytes Not Reportable Helmet Cells Not Reportable [place] Bodies Not Reportable Elmer Rings Not Reportable Flora Cells 1+ Bite Cells Not Reportable Crenated Cell Not Reportable Elliptocytes Few Acanthocytes (Spur) Not Reportable Rouleaux Not Reportable Hemoglobin C Crystals Not Reportable Schistocytes Not Reportable Malaria parasites Not Reportable [place] Bodies Not Reportable Hem Pathologist Commnt No PT 29.6 H INR 2.74 H Sodium Potassium Chloride Carbon Dioxide Anion Gap BUN Creatinine Estimated GFR BUN/Creatinine Ratio Glucose POC Glucose 98 Calcium Iron TIBC Total Bilirubin AST ALT Alkaline Phosphatase Total Protein Albumin Albumin/Globulin Ratio Vitamin B12 09/07/20 09/07/20 09/07/20 09:13 09:13 12:06 WBC RBC Hgb Hct MCV MCH MCHC RDW Plt Count Add Manual Diff Total Counted Seg Neuts % (Manual) Band Neutrophils % Lymphocytes % (Manual) Reactive Lymphs % (Man) Monocytes % (Manual) Eosinophils % (Manual) Basophils % (Manual) Metamyelocytes % Myelocytes % Promyelocytes % Blast Cells % Nucleated RBC % Seg Neutrophils # Man Band Neutrophils # Lymphocytes # (Manual) Abs React Lymphs (Man) Monocytes # (Manual) Eosinophils # (Manual) Basophils # (Manual) Metamyelocytes # Myelocytes # Promyelocytes # Blast Cells # WBC Morphology Hypersegmented Neuts Hyposegmented Neuts Hypogranular Neuts Smudge Cells Toxic Granulation Toxic Vacuolation Dohle Bodies Pelger-Huet Anomaly Ignacia Rods Platelet Estimate Clumped Platelets Plt Clumps, EDTA Large Platelets Giant Platelets Platelet Satelliting Plt Morphology Comment RBC Morphology Dimorphic RBCs Polychromasia Hypochromasia Poikilocytosis Anisocytosis Microcytosis Macrocytosis Spherocytes Pappenheimer Bodies Sickle Cells Target Cells Tear Drop Cells Ovalocytes Helmet Cells [place] Bodies Elmer Rings [place] Cells Bite Cells Crenated Cell Elliptocytes Acanthocytes (Spur) Rouleaux Hemoglobin C Crystals Schistocytes Malaria parasites [place] Bodies Hem Pathologist Commnt PT INR Sodium 152 H Potassium 4.4 Chloride 129.1 H Carbon Dioxide 13 L Anion Gap 14 BUN 78 H Creatinine 2.4 H Estimated GFR 25 BUN/Creatinine Ratio 33 Glucose 111 H POC Glucose 99 Calcium 8.4 Iron 28 L TIBC 188 L Total Bilirubin 0.40 AST 32 ALT 23 Alkaline Phosphatase 191 H Total Protein 5.0 L Albumin 2.4 L Albumin/Globulin Ratio 0.9 Vitamin B12 843.2
--- NOTE | 2020-09-07 17:28 | Progress Note ---
Assessment and Plan Assessment and plan: 64 YO Female with HTN, DM, Anemia, PVD, Nicotine Dependence, positive coronavirus test on presented to the emergency room for further evaluation. Patient states that she has experienced subjective fever, generalized weakness, body aches, shortness of breath, nausea, multiple loose stools, lower extremity edema over the past 1 week with progressively worsening symptoms over the past 3 to 4 days prior to presentation. Patient was brought to the emergency room as a result. Here, patient found to be hypotensive with a systolic blood pressure ranging from 53-94. Patient was also hypothermic with a body temperature of 93.3 F. Patient met criteria for sepsis protocol and found to have bilateral pneumonia, metabolic acidosis, acute kidney injury. Patient admitted to telemetry due to increased risk of multisystem decompensation. Patient initiated on coronavirus protocol. Coronavirus PCR has been ordered and is pending at time of admission. Patient remained hypotensive in spite of IV fluid resuscitation therapy. Patient subsequently upgraded to IMCU. 09/03. While in the ER, patient had an ultrasound Doppler performed that showed bilateral DVT involving the iliac veins. Patient was started on heparin drip. ID consulted for COVID-19 and nephrology consulted for DIRK. Patient seen and examined at bedside this morning. She has no complaints this morning. Her hemoglobin dropped to 6.4 this morning. Patient will get transfused 1 unit of PRBCs. Later this p.m., was notified by nurse that patient is having tarry dark stool and hematemesis. Heparin drip discontinued. Patient started on PPI drip and made n.p.o. GI is has been consulted. Patient will need to have an upper endoscopy. She has bilateral lower extremity DVT and will need vascular surgery evaluation to determine if she is a candidate for IVC filter placement. 09/04. Patient seen and examined at bedside this morning. Labs reviewed showed hemoglobin 5.3. Patient will receive 2 units PRBCs. FFP also ordered. GI evaluation pending. Continue PPIs. Vascular surgeon to see to determine if patient is a candidate for IVC filter placement for DVT. 09/05. Hb stable this morning. GI on board. On PPI drip. 09/06. Gastroenterology and vascular surgery recommendations reviewed. Patient not a good candidate for IVC filter placement due to location of the clot/thrombosis. Plan is for patient to have anticoagulation on while monitoring hemoglobin. Patient's INR is more than 2 at this time so we will ho ld anticoagulation for now and monitor hemoglobin. Plan to initiate anticoagulation when INR is less than 2. We will preferably use heparin products as she has a high chance of bleeding. Continue to monitor hemoglobin. Hb 7.3 this a.m. /. Hemoglobin 8.2 this AM. No clear signs of GI bleed. Her INR is 2.74. No need for initiation of AC for now as she INR is already therapeutic. Plan is to monitor for bleeding and if she remains stable, she will be started on anticoagulation for her bilateral DVT. Vascular surgery following-patient not a candidate for IVC catheter placement. GI recommendations appreciated Problems --Sepsis Current Visit: Yes Status: Acute Qualifiers: Acute renal failure type: with acute tubular necrosis Plan to address problem: Blood culture NTD ID recommendations appreciated --Bilateral pneumonia Current Visit: Yes Status: Acute Plan to address problem: From Covid Dexamethasone ID recommendations appreciated --COVID-19 Current Visit: Yes Status: Acute Plan to address problem: Coronavirus protocol: Coronavirus PCR ordered and is pending at time of admission, contact precaution, isolation precautions, prone positioning while in bed, IV steroid therapy, IV antibiotic therapy. Supportive care. --Acute on chronic anemia Current Visit: Yes Status: Acute on chronic Plan to address problem: Status post transfusion of 1 unit PRBC s/p 3 units PRBCs. PPI. Continue to monitor for GI bleed As per GI, does not look like patient is having GI bleed at this time Advance diet as tolerated --Possible GI bleed Current Visit: No Status: Acute Plan to address problem: Advance diet GI on board --Acute kidney injury (DIRK) with acute tubular necrosis (ATN) Current Visit: Yes Status: Acute Plan to address problem: Continue to monitor renal function Nephrology following closely --Hypernatremia Current Visit: Yes Status: Acute Plan to address problem: Continue isotonic solution Nephrology on board --Bilateral lower extremity DVT Current Visit: Yes Status: Acute Qualifiers: Encounter type: initial encounter Qualified Code(s): T68.XXXA - Hyp othermia, initial encounter Plan to address problem: Consulted vascular surgeon for consideration of IVC filter placement. As per vascular surgery, patient is not a good candidate for IVC filter placement INR 2.74. --Diabetes Current Visit: Yes Status: Acute Plan to address problem: Sliding-scale insulin therapy, Accu-Chek, hypoglycemia protocol, consistent carbohydrate diet. --DVT prophylaxis Current Visit: No Status: Acute Plan to address problem: Anticoagulation --Advance care planning Current Visit: Yes Status: Acute Plan to address problem: Disease education conducted, prognosis discussed, patient is full code, care plan discussed, patient knowledges understanding and agreement with care plan. +30 minutes. --Nicotine dependence Current Visit: Yes Status: Acute Qualifiers: Nicotine product type: cigarettes Substance use status: in withdrawal Qualified Code(s): F17.213 - Nicotine dependence, cigarettes, with withdrawal Plan to address problem: Supportive care, smoking cessation counseling, behavior change counseling, +15 minutes. History Interval history: Patient seen and examined at bedside this morning Has no complaints No further bleeding at this time Hospitalist Physical - Physical exam Narrative exam: VITAL SIGNS: Reviewed. GENERAL: Awake HEAD: No signs of head trauma. EYES: Pupils are equal. Extraocular motions intact. MOUTH: Oropharynx is normal. NECK: No adenopathy, no JVD. CHEST: Chest with diminished breath sounds bilaterally. No wheezes, rales, or rhonchi. CARDIAC: Regular rate and rhythm. S1 and S2, without murmurs, gallops, or rubs. ABDOMEN: Soft, non tender and non distended. No rebound or guarding, and no masses palpated. Bowel Sounds normal. MUSCULOSKELETAL: bilateral BKA NEUROLOGIC EXAM: Awake PSYCHIATRIC: Stable mood SKIN: No obvious lesions - Constitutional Vitals: Temp Pulse Resp BP Pulse Ox 97.5 F L 65 20 174/74 89 09/07/20 05:15 09/07/20 05:15 09/07/20 05:15 09/07/20 05:15 09/07/20 05:15 Results - Labs CBC & Chem 7: 09/07/20 09:13 09/07/20 09:13 Labs: Laboratory Last Values WBC 10.1 K/mm3 (4.5-11.0) 09/07/20 09:13 RBC 3.13 M/mm3 (3.65-5.03) L 09/07/20 09:13 Hgb 8.2 gm/dl (10.1-14.3) L 09/07/20 09:13 Hct 25.5 % (30.3-42.9) L 09/07/20 09:13 MCV 82 fl (79-97) 09/07/20 09:13 MCH 26 pg (28-32) L 09/07/20 09:13 MCHC 32 % (30-34) 09/07/20 09:13 RDW 28.6 % (13.2-15.2) H 09/07/20 09:13 Plt Count 140 K/mm3 (140-440) 09/07/20 09:13 Lymph % (Auto) 9.2 % (13.4-35.0) L 09/05/20 08:28 [place] % (Auto) 5.3 % (0.0-7.3) 09/05/20 08:28 Eos % (Auto) 0.0 % (0.0-4.3) 09/05/20 08:28 Baso % (Auto) 0.1 % (0.0-1.8) 09/05/20 08:28 Lymph # (Auto) 1.1 K/mm3 (1.2-5.4) L 09/05/20 08:28 [place] # (Auto) 0.6 K/mm3 (0.0-0.8) 09/05/20 08:28 Eos # (Auto) 0.0 K/mm3 (0.0-0.4) 09/05/20 08:28 Baso # (Auto) 0.0 K/mm3 (0.0-0.1) 09/05/20 08:28 Add Manual Diff Complete 09/07/20 09:13 Total Counted 100 09/07/20 09:13 Seg Neutrophils % 85.4 % (40.0-70.0) H 09/05/20 08:28 Seg Neuts % (Manual) 94.0 % (40.0-70.0) H 09/07/20 09:13 Band Neutrophils % 0 % 09/07/20 09:13 Lymphocytes % (Manual) 3.0 % (13.4-35.0) L 09/07/20 09:13 Reactive Lymphs % (Man) 0 % 09/07/20 09:13 Monocytes % (Manual) 3.0 % (0.0-7.3) 09/07/20 09:13 Eosinophils % (Manual) 0 % (0.0-4.3) 09/07/20 09:13 Basophils % (Manual) 0 % (0.0-1.8) 09/07/20 09:13 Metamyelocytes % 0 % 09/07/20 09:13 Myelocytes % 0 % 09/07/20 09:13 Promyelocytes % 0 % 09/07/20 09:13 Blast Cells % 0 % 09/07/20 09:13 Nucleated RBC % 2.0 % (0.0-0.9) H 09/07/20 09:13 Seg Neutrophils # 10.1 K/mm3 (1.8-7.7) H 09/05/20 08:28 Seg Neutrophils # Man 9.5 K/mm3 (1.8-7.7) H 09/07/20 09:13 Band Neutrophils # 0.0 K/mm3 09/07/20 09:13 Lymphocytes # (Manual) 0.3 K/mm3 (1.2-5.4) L 09/07/20 09:13 Abs React Lymphs (Man) 0.0 K/mm3 09/07/20 09:13 Monocytes # (Manual) 0.3 K/mm3 (0.0-0.8) 09/07/20 09:13 Eosinophils # (Manual) 0.0 K/mm3 (0.0-0.4) 09/07/20 09:13 Basophils # (Manual) 0.0 K/mm3 (0.0-0.1) 09/07/20 09:13 Metamyelocytes # 0.0 K/mm3 09/07/20 09:13 Myelocytes # 0.0 K/mm3 09/07/20 09:13 Promyelocytes # 0.0 K/mm3 09/07/20 09:13 Blast Cells # 0.0 K/mm3 09/07/20 09:13 WBC Morphology Not Reportable 09/07/20 09:13 Hypersegmented Neuts Not Reportable 09/07/20 09:13 Hyposegmented Neuts Not Reportable 09/07/20 09:13 Hypogranular Neuts Not Reportable 09/07/20 09:13 Smudge Cells Not Reportable 09/07/20 09:13 Toxic Granulation Not Reportable 09/07/20 09:13 Toxic Vacuolation Not Reportable 09/07/20 09:13 Dohle Bodies Not Reportable 09/07/20 09:13 Pelger-Huet Anomaly Not Reportable 09/07/20 09:13 Ignacia Rods Not Reportable 09/07/20 09:13 Platelet Estimate Consistent w auto 09/07/20 09:13 Clumped Platelets Not Reportable 09/07/20 09:13 Plt Clumps, EDTA Not Reportable 09/07/20 09:13 Large Platelets Not Reportable 09/07/20 09:13 Giant Platelets Not Reportable 09/07/20 09:13 Platelet Satelliting Not Reportable 09/07/20 09:13 Plt Morphology Comment Not Reportable 09/07/20 09:13 RBC Morphology Not Reportable 09/07/20 09:13 Dimorphic RBCs Not Reportable 09/07/20 09:13 Polychromasia Few 09/07/20 09:13 Hypochromasia 1+ 09/07/20 09:13 Poikilocytosis Few 09/07/20 09:13 Anisocytosis 3+ 09/07/20 09:13 Microcytosis Not Reportable 09/07/20 09:13 Macrocytosis Not Reportable 09/07/20 09:13 Spherocytes Not Reportable 09/07/20 09:13 Pappenheimer Bodies Not Reportable 09/07/20 09:13 Sickle Cells Not Reportable 09/07/20 09:13 Target Cells Not Reportable 09/07/20 09:13 Tear Drop Cells Not Reportable 09/07/20 09:13 Ovalocytes Not Reportable 09/07/20 09:13 Helmet Cells Not Reportable 09/07/20 09:13 [place] Bodies Not Reportable 09/07/20 09:13 [place] Rings Not Reportable 09/07/20 09:13 Flora Cells 1+ 09/07/20 09:13 Bite Cells Not Reportable 09/07/20 09:13 Crenated Cell Not Reportable 09/07/20 09:13 Elliptocytes Few 09/07/20 09:13 Acanthocytes (Spur) Not Reportable 09/07/20 09:13 Rouleaux Not Reportable 09/07/20 09:13 Hemoglobin C Crystals Not Reportable 09/07/20 09:13 Schistocytes Not Reportable 09/07/20 09:13 Malaria parasites Not Reportable 09/07/20 09:13 [place] Bodies Not Reportable 09/07/20 09:13 Hem Pathologist Commnt No 09/07/20 09:13 PT 29.6 Sec. (12.2-14.9) H 09/07/20 09:13 INR 2.74 (0.87-1.13) H 09/07/20 09:13 APTT 29.2 Sec. (24.2-36.6) 09/02/20 13:52 D-Dimer 1076.18 ng/mlDDU (0-234) H 09/01/20 21:55 Heparin Anti-Xa Level 0.94 U.I./ml (0.3-0.7) H 09/03/20 05:17 Sodium 152 mmol/L (137-145) H 09/07/20 09:13 Potassium 4.4 mmol/L (3.6-5.0) 09/07/20 09:13 Chloride 129.1 mmol/L (98-107) H 09/07/20 09:13 Carbon Dioxide 13 mmol/L (22-30) L 09/07/20 09:13 Anion Gap 14 mmol/L 09/07/20 09:13 BUN 78 mg/dL (7-17) H 09/07/20 09:13 Creatinine 2.4 mg/dL (0.6-1.2) H 09/07/20 09:13 Estimated GFR 25 ml/min 09/07/20 09:13 BUN/Creatinine Ratio 33 % 09/07/20 09:13 Glucose 111 mg/dL (65-100) H 09/07/20 09:13 POC Glucose 59 mg/dL (70-105) L 09/07/20 17:15 Lactic Acid 0.60 mmol/L (0.7-2.0) L 09/02/20 08:10 Calcium 8.4 mg/dL (8.4-10.2) 09/07/20 09:13 Phosphorus 3.50 mg/dL (2.5-4.5) 09/06/20 06:43 Iron 28 ug/dL (37-170) L 09/07/20 09:13 TIBC 188 mcg/dL (250-450) L 09/07/20 09:13 Ferritin 313.5 ng/mL (10.0-200.0) H 09/01/20 21:55 Total Bilirubin 0.40 mg/dL (0.1-1.2) 09/07/20 09:13 AST 32 units/L (5-40) 09/07/20 09:13 ALT 23 units/L (7-56) 09/07/20 09:13 Alkaline Phosphatase 191 units/L (35-129) H 09/07/20 09:13 Lactate Dehydrogenase 435 units/L (91-180) H 09/01/20 21:55 C-Reactive Protein 2.30 mg/dL (0.00-1.30) H 09/01/20 21:55 NT-Pro-B Natriuret Pep 24112 pg/mL (0-900) H 09/01/20 21:55 Total Protein 5.0 g/dL (6.3-8.2) L 09/07/20 09:13 Albumin 2.4 g/dL (3.9-5) L 09/07/20 09:13 Albumin/Globulin Ratio 0.9 % 09/07/20 09:13 Vitamin B12 843.2 pg/mL (211-911) 09/07/20 09:13 Procalcitonin 0.10 ng/mL (<0.15) 09/01/20 21:55 TSH 0.735 mlU/mL (0.270-4.200) 09/02/20 00:45 Free T4 0.92 ng/dL (0.76-1.46) 09/02/20 00:45 Free T4 0.94 ng/dL (0.76-1.46) 09/02/20 00:45 PTH Intact 820.4 pg/mL (15-65) H 09/04/20 05:18 Urine Color Leena (Yellow) 09/02/20 03:44 Urine Turbidity Cloudy (Clear) 09/02/20 03:44 Urine pH 7.0 (5.0-7.0) 09/02/20 03:44 Ur Specific [place] 1.015 (1.003-1.030) 09/02/20 03:44 Urine Protein >500 mg/dL (Negative) 09/02/20 03:44 Urine Glucose (UA) Neg mg/dL (Negative) 09/02/20 03:44 Urine Ketones Neg mg/dL (Negative) 09/02/20 03:44 Urine Blood Neg (Negative) 09/02/20 03:44 Urine Nitrite Neg (Negative) 09/02/20 03:44 Urine Bilirubin Neg (Negative) 09/02/20 03:44 Urine Urobilinogen < 2.0 mg/dL (<2.0) 09/02/20 03:44 Ur Leukocyte Esterase Neg (Negative) 09/02/20 03:44 Urine WBC (Auto) < 1.0 /HPF (0.0-6.0) 09/02/20 03:44 Urine RBC (Auto) < 1.0 /HPF (0.0-6.0) 09/02/20 03:44 U Epithel Cells (Auto) < 1.0 /HPF (0-13.0) 09/02/20 03:44 Urine Bacteria (Auto) 2+ /HPF (Negative) 09/02/20 03:44 Urine Mucus Few /HPF 09/02/20 03:44 Urine Creatinine 43.2 mg/dL (0.1-20.0) H 09/06/20 06:52 Protein/Creatinin Ratio 6.90 09/06/20 06:52 Urine Sodium 84 mmol/L 09/06/20 06:52 Urine Total Protein 298 mg/dL (5-11.8) H 09/06/20 06:52 C. difficile Tox (PCR) Negative (Negative) 09/02/20 13:05 Coronavirus (PCR) Positive (Negative) A 09/07/20 Unknown SARS-CoV-2 IgG Ab Nonreactive (NonReactive) 09/02/20 08:10 Blood Type O POSITIVE 09/01/20 23:15 Antibody Screen Negative 09/01/20 23:15 Crossmatch See Detail 09/01/20 23:15 Microbiology: Microbiology 09/01/20 23:27 Peripheral/Venous Blood Culture - Final NO GROWTH AFTER 5 DAYS 09/01/20 23:44 Peripheral/Venous Blood Culture - Final NO GROWTH AFTER 5 DAYS [place]/IV: Voiding Method Incontinent IV Catheter Type [Right Hand] INT / Saline Lock IV Catheter Type [Right Upper Peripheral IV arm] IV Catheter Type [Right INT / Saline Lock External Jugular] Active Medications - Current Medications Current Medications: Generic Name Dose Route Start Last Admin Trade Name Freq PRN Reason Stop Dose Admin Acetaminophen 650 mg 09/02/20 00:30 09/05/20 22:50 Tylenol PO 650 mg Q6H PRN Administration Pain, Mild (1-3) Aspirin 81 mg 09/02/20 10:00 09/07/20 10:42 Baby Aspirin PO 81 mg DAILY JAE Administration Calcitriol 0.5 mcg 09/05/20 13:00 09/07/20 12:09 Rocaltrol PO 0.5 mcg QDAY JAE Administration Dexamethasone 6 mg 09/03/20 18:00 09/07/20 10:42 Decadron IV 09/12/20 10:01 6 mg DAILY JAE Administration Ferrous Sulfate 325 mg 09/02/20 10:00 09/07/20 10:42 Feosol PO 325 mg DAILY JAE Administration Hydromorphone HCl 0.25 mg 09/02/20 00:30 09/05/20 23:28 Dilaudid IV 0.25 mg Q4H PRN Administration Pain, Moderate (4-6) Sodium Chloride 500 mls @ 0 mls/hr 09/04/20 13:03 Nacl 0.9% 500 Ml IV ONCE JAE As Directed Dextrose 1,000 mls @ 75 mls/hr 09/05/20 13:00 09/06/20 14:35 D5w IV 50 mls/hr DIRECT JAE Administration Insulin Glargine 14 units 09/07/20 17:22 Lantus SUB-Q QHS JAE Insulin Human Lispro 0 unit 09/03/20 11:30 09/07/20 13:04 Humalog SUB-Q Not Given ACHS [facility] Protocol Metolazone 10 mg 09/07/20 10:00 09/07/20 10:43 Zaroxolyn PO 10 mg QDAY JAE Administration Multivitamins 1 each 09/06/20 10:00 09/07/20 10:42 Theragran Tab PO 1 each QDAY JAE Administration Pantoprazole Sodium 40 mg 09/05/20 22:00 09/07/20 10:42 Protonix IV 40 mg BID JAE Administration Potassium Bicarbonate 50 meq 09/05/20 13:00 09/07/20 10:43 Klor-Con PO 50 meq QDAY JAE Administration Sertraline HCl 50 mg 09/02/20 10:00 09/07/20 10:42 Zoloft PO 50 mg DAILY JAE Administration Sodium Chloride 10 ml 09/02/20 10:00 09/07/20 10:44 Sodium Chloride Flush Syringe 10 Ml IV 10 ml BID JAE Administration Sodium Chloride 10 ml 09/02/20 00:30 Sodium Chloride Flush Syringe 10 Ml IV PRN PRN LINE FLUSH Nutrition/Malnutrition Assess - Dietary Evaluation Nutrition/Malnutrition Findings: Nutrition Notes Start: 09/03/20 13:19 Freq: Status: Active Protocol: Document 09/07/20 14:00 LM (Rec: 09/07/20 14:08 LM [id number]) Nutrition Notes Initial or Follow up Brief Note Current Diagnosis CKD(stage I-IV),Diabetes, Sepsis,Hypertension Other Pertinent Diagnosis COVID-19, Pneu, anemia, GI bleed Pmhx: bilateral BKA Current Diet Consistent CHO Labs/Tests Na 152 BUN 78 Cr 2.4 Pertinent Medications Klor-Con Multivitamins Feosol Decadron Lantus Height 5 ft 6 in Weight 100.2 kg [place] Body Weight (kg) 59.09 BMI 35.6 Subjective/Other Information Unable to reach pt by phone 2x . Diet advanced back to consistent CHO. Per MD reprot, pt is tolerating diet. Unable to reach RN. Burn Absent Trauma Absent Minimum of two criteria No physical signs of malnutrition Nutrition Intervention Follow-Up By: 09/09/20 Additional Comments F/U for intakes, assessment needs
[2020-09-08 06:08] LABS: Hematocrit 23.7 % (30.3-42.9); Hemoglobin 7.6 gm/dl (10.1-14.3); Mean Corpuscular HGB Conc 32 % (30-34); Mean Corpuscular Volume 81 fl (79-97); Platelet Count 130 K/mm3 (140-440); Red Blood Count 2.93 M/mm3 (3.65-5.03)
[2020-09-08 06:09] LABS: Basophils % (Auto) 0.1 % (0.0-1.8); Lymphocytes # (Auto) 1.8 K/mm3 (1.2-5.4); Lymphocytes % (Auto) 14.7 % (13.4-35.0); Monocytes # (Auto) 0.8 K/mm3 (0.0-0.8); Monocytes % (Auto) 6.4 % (0.0-7.3); Red Cell Distribution Width 29.3 % (13.2-15.2)
[2020-09-08 06:17] LABS: INR 3.27 (0.87-1.13)
[2020-09-08 06:30] LABS: Albumin 2.4 g/dL (3.9-5); Calcium 8.5 mg/dL (8.4-10.2)
[2020-09-08] MEDS: INSULIN LISPRO 100 UNIT/ML VIAL 3 mL SUB-Q SCH ×4 (09:30→22:38)
--- NOTE | 2020-09-08 09:35 | Progress Note ---
Assessment and Plan 1. Acute kidney injury: DIRK secondary to combination of Vasomotor nephropathy and severe sepsis. Renal US negative for hydro. Urine studies ordered. Monitor renal function. Creatinine leveled off. Prior Creatinine was 1.2 in 2014. Likely CKD stage 4. Renal prognosis is guarded. Avoid nephrotoxic agents. Meds dosage based on GFR. 2. FEN: Mild hyperkalemia, improved, monitor. Hyperchloremic Metabolic acidosis, on Pot bicarbonate, monitor. Unable to give Sod bicarb due to hypernatremia. Hypernatremia, continue IV D5W. Suspected Volume overload, Metolazone. Monitor lytes. 3. Nephrotic syndrome: Likely diabetic nephropathy. DEMARCUS, ANCA, complements, GBM Ab and SPEP ordered. 4. Severe sepsis, POA: Presented with hypothermia, hypotension. Likely secondary to bilateral pneumonia. 5. Severe COVID infection: Followed by ID. 6. Bilateral LE DVT, POA. 7. Microcytic anemia, POA: S/p PRBC. Monitor. 8. Thrombocytopenia, POA. 9. Acute diarrhea: Likely associated to COVID-19 infection. C. difficile test negative. Subjective: Patient was seen and examined at the bedside. Denies any new complaint. General Appearance: General appearance: well-developed, well-nourished, appears stated age, no distress, obese HEENT: ATNC, JAYCE Neck: supple Respiratory: ctab Cardiology: regular, S1S2, no murmur Gastrointestinal: normoactive bowel sounds, no tenderness, not distended Integumentary: no obvious rash Neurologic: alert, moving extremities, confusion noted Ext: trace dependent edema, b/l BKA Subjective Date of service: 09/08/20 Principal diagnosis: Iron Def Anemia Objective - Vital Signs Vital signs: Vital Signs - 12hr 09/07/20 09/08/20 09/08/20 23:01 00:00 01:48 Temperature 97.7 F Pulse Rate 55 L Respiratory 20 18 Rate Blood Pressure 162/80 O2 Sat by Pulse 98 Oximetry 09/08/20 09/08/20 04:00 04:03 Temperature 98.1 F Pulse Rate 55 L 58 L Respiratory 20 Rate Blood Pressure 158/62 O2 Sat by Pulse 88 Oximetry - Lab 09/09/20 09:06 09/09/20 09:06 Most recent lab results Calcium 8.5 mg/dL (8.4-10.2) 09/08/20 05:18 Phosphorus 3.50 mg/dL (2.5-4.5) 09/06/20 06:43 Urine Creatinine 43.2 mg/dL (0.1-20.0) H 09/06/20 06:52 Urine Sodium 84 mmol/L 09/06/20 06:52 Urine Total Protein 298 mg/dL (5-11.8) H 09/06/20 06:52 Medications & Allergies - Medications Allergies/Adverse Reactions: Allergies No Known Allergies Allergy (Unverified 02/14/14 19:23) Home Medications: Home Medications Medication Instructions Recorded Confirmed Last Taken Type Aspirin [[place] Aspirin] 81 mg PO DAILY 02/14/14 02/22/14 02/14/14 11:00 History Ferrous Sulfate [Feosol 325mg] 325 mg PO DAILY 02/14/14 02/22/14 02/14/14 11:00 History Sertraline [Zoloft] 50 mg PO DAILY 02/14/14 02/22/14 02/14/14 11:00 History amLODIPine 5 mg PO DAILY 02/14/14 02/22/14 02/14/14 11:00 History hydroCHLOROthiazide 25 mg PO DAILY 02/14/14 02/22/14 02/14/14 11:00 History [Hydrochlorothiazide] lisinopriL [Zestril TAB] 10 mg PO DAILY 02/14/14 02/22/14 02/14/14 11:00 History Insulin NPH Hum/Reg Insulin Hm 100 units SQ BID 02/22/14 02/23/14 Unknown History [Humulin 70-30 Vial] Insulin Regular, Human [HumuLIN R] 7 unit SQ AC 02/22/14 02/23/14 Unknown History Active Medications: Generic Name Dose Route Start Last Admin Trade Name Freq PRN Reason Stop Dose Admin Acetaminophen 650 mg 09/02/20 00:30 09/05/20 22:50 Tylenol PO 650 mg Q6H PRN Administration Pain, Mild (1-3) Aspirin 81 mg 09/02/20 10:00 09/07/20 10:42 Baby Aspirin PO 81 mg DAILY JAE Administration Calcitriol 0.5 mcg 09/05/20 13:00 09/07/20 12:09 Rocaltrol PO 0.5 mcg QDAY JAE Administration Dexamethasone 6 mg 09/03/20 18:00 09/07/20 10:42 Decadron IV 09/12/20 10:01 6 mg DAILY JAE Administration Ferrous Sulfate 325 mg 09/02/20 10:00 09/07/20 10:42 Feosol PO 325 mg DAILY JAE Administration Hydromorphone HCl 0.25 mg 09/02/20 00:30 09/05/20 23:28 Dilaudid IV 0.25 mg Q4H PRN Administration Pain, Moderate (4-6) Sodium Chloride 500 mls @ 0 mls/hr 09/04/20 13:03 Nacl 0.9% 500 Ml IV ONCE JAE As Directed Dextrose 1,000 mls @ 75 mls/hr 09/05/20 13:00 09/06/20 14:35 D5w IV 50 mls/hr DIRECT JAE Administration Insulin Glargine 14 units 09/07/20 22:00 09/07/20 22:35 Lantus SUB-Q Not Given QHS [facility] Insulin Human Lispro 0 unit 09/03/20 11:30 09/08/20 09:30 Humalog SUB-Q Not Given ACHS [facility] Protocol Metolazone 10 mg 09/07/20 10:00 09/07/20 10:43 Zaroxolyn PO 10 mg QDAY JAE Administration Multivitamins 1 each 09/06/20 10:00 09/07/20 10:42 Theragran Tab PO 1 each QDAY JAE Administration Pantoprazole Sodium 40 mg 09/05/20 22:00 09/07/20 22:37 Protonix IV 40 mg BID JAE Administration Potassium Bicarbonate 50 meq 09/05/20 13:00 09/07/20 10:43 Klor-Con PO 50 meq QDAY JAE Administration Sertraline HCl 50 mg 09/02/20 10:00 09/07/20 10:42 Zoloft PO 50 mg DAILY JAE Administration Sodium Chloride 10 ml 09/02/20 10:00 09/07/20 22:36 Sodium Chloride Flush Syringe 10 Ml IV 10 ml BID JAE Administration Sodium Chloride 10 ml 09/02/20 00:30 Sodium Chloride Flush Syringe 10 Ml IV PRN PRN LINE FLUSH
[2020-09-08] MEDS: dexAMETHasone 4 MG/ML VIAL IV SCH (09:38)
[2020-09-08] MEDS: PANTOPRAZOLE 40 MG INJ IV SCH ×2 (09:38→22:38)
[2020-09-08] MEDS: ASPIRIN 81 MG TAB CHEW PO SCH (09:38)
[2020-09-08] MEDS: CALCITRIOL 0.5 MCG CAP PO SCH (09:38)
[2020-09-08] MEDS: SERTRALINE 50 MG TAB PO SCH (09:39)
[2020-09-08] MEDS: K-LYTE 25 MEQ TABLET EFF PO SCH (09:39)
[2020-09-08] MEDS: FERROUS SULFATE 325 MG TAB PO SCH (09:39)
[2020-09-08] MEDS: MULTIVITAMINS ,THERAPEUTIC TAB PO SCH (09:39)
[2020-09-08] MEDS: metOLazone 5 MG TAB PO SCH (10:12)
[2020-09-08] MEDS ORDERED: PHYTONADIONE(ADULT ONLY) 10 MG in SODIUM CHLORIDE 0.9% 50 ML IV NR (11:30)
[2020-09-08] MEDS ORDERED: DEXAMETHASONE 2 MG TAB PO SCH (12:00)
--- NOTE | 2020-09-08 12:29 | Gastroenterology Progress Note ---
Assessment and Plan - Patient Problems (1) Iron deficiency anemia due to chronic blood loss Current Visit: Yes Status: Acute Plan to address problem: - Anemic x several years (per [facility] records); EGD 2014 showed severe esophagitis and mild gastritis; no colonoscopy on file. - No gross bleeding here, and tolerating protonix. Does have black liquid stool in rectal pouch, but on daily iron pills this is unreliable. She has no thick stool consistent with melena. - Will avoid EGD/colon while COVID positive with pneumonia, unless gross bleeding. - Continue MVI daily, and continue iron/protonix. Labs stable 09/08 - Will continue to hold anticoagulation since INR >2.5. Will also d/c daily ASA since INR now about 3 (?DIC from COVID as this would be atypical for only a short course of coumadin). (2) COVID-19 Current Visit: Yes Status: Acute Subjective Date of service: 09/08/20 Principal diagnosis: Iron Def Anemia Interval history: The patient has had no bleeding, and is tolerating her diet without N/V/abdominal pain. Objective - Constitutional Vitals: Temp Pulse Resp BP Pulse Ox 97.3 F L 43 L 17 168/68 88 09/08/20 12:10 09/08/20 12:10 09/08/20 12:10 09/08/20 12:10 09/08/20 12:10 General appearance: no acute distress - Respiratory Respiratory effort: normal Respiratory: bilateral: CTA - Cardiovascular Rhythm: regular Heart Sounds: Present: S1 & S2 - Gastrointestinal General gastrointestinal: Present: soft, non-tender, non-distended - Labs CBC & Chem 7: 09/08/20 05:18 09/08/20 05:18 Labs: Laboratory Results - last 24 hr 09/07/20 09/07/20 09/07/20 12:06 17:15 18:38 WBC RBC Hgb Hct MCV MCH MCHC RDW Plt Count Lymph % (Auto) Swain % (Auto) Eos % (Auto) Baso % (Auto) Lymph # (Auto) Swain # (Auto) Eos # (Auto) Baso # (Auto) Seg Neutrophils % Seg Neutrophils # PT INR Sodium Potassium Chloride Carbon Dioxide Anion Gap BUN Creatinine Estimated GFR BUN/Creatinine Ratio Glucose POC Glucose 99 59 L 107 H Calcium Total Bilirubin AST ALT Alkaline Phosphatase Total Protein Albumin Albumin/Globulin Ratio Coronavirus (PCR) 09/07/20 09/07/20 09/08/20 22:08 Unknown 05:18 WBC 12.0 H RBC 2.93 L Hgb 7.6 L Hct 23.7 L MCV 81 MCH 26 L MCHC 32 RDW 29.3 H Plt Count 130 L Lymph % (Auto) 14.7 Swain % (Auto) 6.4 Eos % (Auto) 0.0 Baso % (Auto) 0.1 Lymph # (Auto) 1.8 Swain # (Auto) 0.8 Eos # (Auto) 0.0 Baso # (Auto) 0.0 Seg Neutrophils % 78.8 H Seg Neutrophils # 9.5 H PT INR Sodium Potassium Chloride Carbon Dioxide Anion Gap BUN Creatinine Estimated GFR BUN/Creatinine Ratio Glucose POC Glucose 81 Calcium Total Bilirubin AST ALT Alkaline Phosphatase Total Protein Albumin Albumin/Globulin Ratio Coronavirus (PCR) Positive A 09/08/20 09/08/20 09/08/20 05:18 05:18 08:28 WBC RBC Hgb Hct MCV MCH MCHC RDW Plt Count Lymph % (Auto) Swain % (Auto) Eos % (Auto) Baso % (Auto) Lymph # (Auto) Swain # (Auto) Eos # (Auto) Baso # (Auto) Seg Neutrophils % Seg Neutrophils # PT 34.0 H INR 3.27 H Sodium 148 H Potassium 4.8 Chloride 127.0 H Carbon Dioxide 12 L Anion Gap 14 BUN 77 H Creatinine 2.3 H Estimated GFR 26 BUN/Creatinine Ratio 33 Glucose 60 L POC Glucose 73 Calcium 8.5 Total Bilirubin 0.30 AST 31 ALT 23 Alkaline Phosphatase 185 H Total Protein 5.0 L Albumin 2.4 L Albumin/Globulin Ratio 0.9 Coronavirus (PCR) 09/08/20 12:21 WBC RBC Hgb Hct MCV MCH MCHC RDW Plt Count Lymph % (Auto) Swain % (Auto) Eos % (Auto) Baso % (Auto) Lymph # (Auto) Swain # (Auto) Eos # (Auto) Baso # (Auto) Seg Neutrophils % Seg Neutrophils # PT INR Sodium Potassium Chloride Carbon Dioxide Anion Gap BUN Creatinine Estimated GFR BUN/Creatinine Ratio Glucose POC Glucose 110 H Calcium Total Bilirubin AST ALT Alkaline Phosphatase Total Protein Albumin Albumin/Globulin Ratio Coronavirus (PCR)
--- NOTE | 2020-09-08 13:04 | Progress Note ---
Assessment and Plan Cultures: Blood culture no growth today. SARS CoV2 PCR positive [facility] 08/24/2020. Assessment: 64 years old female with history of diabetes mellitus, hypertension, peripheral vascular disease status post bilateral BKA, chronic kidney disease, tobacco use, tested positive for COVID-19 outpatient the day before admission, admitted on 09/01/2020 due to a week history of cough, generalized weakness, body aches, subjective fever, shortness of breath, nausea, multiple diarrheic episodes, patient recently admitted to [facility] from 08/23/2020 until 08/27/2020 for symptomatic anemia, hemoglobin at 4.5, refused further work-up and tested positive for COVID-19, asymptomatic: #Severe sepsis: Hypothermia and hypotension improving, likely due to bilateral pneumonia +/-severe anemia. #Severe COVID pneumonia: Patient tested positive at [facility] on 08/24/2020. Initial ferritin normal, D-dimer elevated 2.4. D-dimer here 08/10/1976. Ferritin slightly elevated 313. Chest x-ray shows extensive bilateral airspace disease. Patient is currently on room air. There may be a component of volume overload. Echocardiogram at [facility] EF 43%. BNP 70,000. Procalcitonin normal, hence I doubt bacterial component. #Elevated LFTs: from COVID #Hypoxia: Currently on room air, O2 sat dropped to 89%, O2 sats this morning 88%. #DIRK on CKD: from COVID #Acute thrombocytopenia: Platelets 08/27/2020 were 146. Likely due to COVID-19 infection. #Acute diarrhea: Multiple episodes. Likely associated to COVID-19 infection. C. difficile toxin PCR negative. #Bilateral lower extremity DVT: Anticoagulation on hold due to severe anemia #Severe anemia: Patient refused GI bleed work-up at [facility], on PPI Recommendations: -Patient needs supplemental oxygen O2 sats remains low, may need home O2 -Continue Solu-Medrol x 10 days -No indication for remdesivir as pt is symptomatic for over 10 days so no benefit -Monitor inflammatory markers - ferritin, Ddimer, CRP, LDH -monitor O2 sats High risk mortality Will follow Beba Parker MD Infectious Diseases [employer] [facility] ([facility] M [phone] O [phone] Subjective Date of service: 09/08/20 Principal diagnosis: Iron Def Anemia Interval history: Patient remains on room air, O2 sat dropped to 88% Objective - Exam Narrative Exam: Physical Exam: reviewed ED and hospitalist notes, limited due to conservation of PPE and decrease risk of transmission. General appearance: limited due to conservation of PPE Eyes: limited due to conservation of PPE HENT: Atraumatic; limited due to conservation of PPE Lungs: limited due to conservation of PPE CV: limited due to conservation of PPE Abdomen: limited due to conservation of PPE Extremities: limited due to conservation of PPE Skin: limited due to conservation of PPE Psych: limited due to conservation of PPE Neuro: limited due to conservation of PPE - Constitutional Vitals: Vital Signs Temp Pulse Resp BP Pulse Ox 97.3 F L 43 L 17 168/68 88 09/08/20 12:10 09/08/20 12:10 09/08/20 12:10 09/08/20 12:10 09/08/20 12:10 Temperature -Last 24 Hours Temperature 97.3 F Temperature 98.1 F Temperature 97.7 F Temperature 98.2 F - Labs CBC & Chem 7: 09/08/20 05:18 09/08/20 05:18 Labs: Abnormal lab results 09/07/20 09/07/20 09/07/20 Range/Units 17:15 18:38 Unknown WBC (4.5-11.0) K/mm3 RBC (3.65-5.03) M/mm3 Hgb (10.1-14.3) gm/dl Hct (30.3-42.9) % MCH (28-32) pg RDW (13.2-15.2) % Plt Count (140-440) K/mm3 Seg Neutrophils % (40.0-70.0) % Seg Neutrophils # (1.8-7.7) K/mm3 PT (12.2-14.9) Sec. INR (0.87-1.13) Sodium (137-145) mmol/L Chloride (98-107) mmol/L Carbon Dioxide (22-30) mmol/L BUN (7-17) mg/dL Creatinine (0.6-1.2) mg/dL Glucose (65-100) mg/dL POC Glucose 59 L 107 H (70-105) mg/dL Alkaline Phosphatase (35-129) units/L Total Protein (6.3-8.2) g/dL Albumin (3.9-5) g/dL Coronavirus (PCR) Positive A (Negative) 09/08/20 09/08/20 09/08/20 Range/Units 05:18 05:18 05:18 WBC 12.0 H (4.5-11.0) K/mm3 RBC 2.93 L (3.65-5.03) M/mm3 Hgb 7.6 L (10.1-14.3) gm/dl Hct 23.7 L (30.3-42.9) % MCH 26 L (28-32) pg RDW 29.3 H (13.2-15.2) % Plt Count 130 L (140-440) K/mm3 Seg Neutrophils % 78.8 H (40.0-70.0) % Seg Neutrophils # 9.5 H (1.8-7.7) K/mm3 PT 34.0 H (12.2-14.9) Sec. INR 3.27 H (0.87-1.13) Sodium 148 H (137-145) mmol/L Chloride 127.0 H (98-107) mmol/L Carbon Dioxide 12 L (22-30) mmol/L BUN 77 H (7-17) mg/dL Creatinine 2.3 H (0.6-1.2) mg/dL Glucose 60 L (65-100) mg/dL POC Glucose (70-105) mg/dL Alkaline Phosphatase 185 H (35-129) units/L Total Protein 5.0 L (6.3-8.2) g/dL Albumin 2.4 L (3.9-5) g/dL Coronavirus (PCR) (Negative) 09/08/20 Range/Units 12:21 WBC (4.5-11.0) K/mm3 RBC (3.65-5.03) M/mm3 Hgb (10.1-14.3) gm/dl Hct (30.3-42.9) % MCH (28-32) pg RDW (13.2-15.2) % Plt Count (140-440) K/mm3 Seg Neutrophils % (40.0-70.0) % Seg Neutrophils # (1.8-7.7) K/mm3 PT (12.2-14.9) Sec. INR (0.87-1.13) Sodium (137-145) mmol/L Chloride (98-107) mmol/L Carbon Dioxide (22-30) mmol/L BUN (7-17) mg/dL Creatinine (0.6-1.2) mg/dL Glucose (65-100) mg/dL POC Glucose 110 H (70-105) mg/dL Alkaline Phosphatase (35-129) units/L Total Protein (6.3-8.2) g/dL Albumin (3.9-5) g/dL Coronavirus (PCR) (Negative)
--- NOTE | 2020-09-08 17:35 | Progress Note ---
Assessment and Plan --Sepsis Due to COVID-19 pneumonia Blood culture NTD ID recommendations appreciated --COVID-19 pneumonia Coronavirus protocol: Coronavirus PCR is positive, contact precaution, isolation precautions, prone positioning while in bed, Not a candidate for remdesivir due to renal failure Continue dexamethasone, supplemental O2 --Acute on chronic anemia Due to chronic GI bleed and iron deficiency Status post transfusion of 2 unit PRBC PPI. Continue to monitor for GI bleed As per GI, does not look like patient is having GI bleed at this time Advance diet as tolerated --Possible GI bleed, chronic Advance diet, GI on board Recommended to manage medically --Acute kidney injury (DIRK) with acute tubular necrosis (ATN) Continue to monitor renal function Nephrology following closely --Hypernatremia Continue isotonic solution Nephrology on board --Bilateral lower extremity DVT, chronic Consulted vascular surgeon for consideration of IVC filter placement. As per vascular surgery, patient is not a good candidate for IVC filter place ment INR 2.74. GI recommended to treat with aspirin only for ongoing GI bleed ? --Diabetes Current Visit: Yes Status: Acute Plan to address problem: Sliding-scale insulin therapy, Accu-Chek, hypoglycemia protocol, consistent carbohydrate diet. --DVT prophylaxis, Anticoagulation --Advance care planning Disease education conducted, prognosis discussed, patient is full code, care plan discussed, patient knowledges understanding and agreement with care plan. +30 minutes. --Nicotine dependence Supportive care, smoking cessation counseling, behavior change counseling, +15 minutes. Brief History; 64 YO Female with HTN, DM, Anemia, PVD, Nicotine Dependence, positive coronavirus test on presented to the emergency room for further evaluation. Patient states that she has experienced subjective fever, generalized weakness, body aches, shortness of breath, nausea, multiple loose stools, lower extremity edema over the past 1 week with progressively worsening symptoms over the past 3 to 4 days prior to presentation. Patient was brought to the emergency room as a result. Here, patient found to be hypotensive with a systolic blood pressure ranging from 53-94. Patient was also hypothermic with a body temperature of 93.3 F. Patient met criteria for sepsis protocol and found to have bilateral pneumonia, metabolic acidosis, acute kidney injury. Patient admitted to telemetry due to increased risk of multisystem decompensation. Patient initiated on coronavirus protocol. Coronavirus PCR has been ordered and is pending at time of admission. Patient remained hypotensive in spite of IV fluid resuscitation therapy. Patient subsequently upgraded to IMCU. 09/03. While in the ER, patient had an ultrasound Doppler performed that showed bilateral DVT involving the iliac veins. Patient was started on heparin drip. ID consulted for COVID-19 and nephrology consulted for DIRK. Patient seen and examined at bedside this morning. She has no complaints this morning. Her hemoglobin dropped to 6.4 this morning. Patient will get transfused 1 unit of PRBCs. Later this p.m., was notified by nurse that patient is having tarry dark stool and hematemesis. Heparin drip discontinued. Patient started on PPI drip and made n.p.o. GI is has been consulted. Patient will need to have an upper endoscopy. She has bilateral lower extremity DVT and will need vascular surgery evaluation to determine if she is a candidate for IVC filter placement. 09/04. Patient seen and examined at bedside this morning. Labs reviewed showed hemoglobin 5.3. Patient will receive 2 units PRBCs. FFP also ordered. GI evaluation pending. Continue PPIs. Vascular surgeon to see to determine if patient is a candidate for IVC filter placement for DVT. 09/05. Hb stable this morning. GI on board. On PPI drip. 09/06. Gastroenterology and vascular surgery recommendations reviewed. Patient not a good candidate for IVC filter placement due to location of the clot/t hrombosis. Plan is for patient to have anticoagulation on while monitoring hemoglobin. Patient's INR is more than 2 at this time so we will hold anticoagulation for now and monitor hemoglobin. Plan to initiate anticoagulation when INR is less than 2. We will preferably use heparin products as she has a high chance of bleeding. Continue to monitor hemoglobin. Hb 7.3 this a.m. 09/07. Hemoglobin 8.2 this AM. No clear signs of GI bleed. Her INR is 2.74. No need for initiation of AC for now as she INR is already therapeutic. Plan is to monitor for bleeding and if she remains stable, she will be started on anticoagulation for her bilateral DVT. Vascular surgery following-patient not a candidate for IVC catheter placement. GI recommendations appreciated 09/08: Patient is nonreactive to COVID-19 antibody, per ID order for convalescent plasma. Continue supportive care and monitor clinically. Appreciate GI recommendation. Subjective Date of service: 09/08/20 Principal diagnosis: Iron Def Anemia Interval history: Patient seen and examined She denies any chest pain, no obvious active bleeding Ordered for convalescent plasma Discussed with RN at the bedside Vitals reviewed Objective - Exam Narrative Exam: GENERAL: Awake HEAD: No signs of head trauma. EYES: Pupils are equal. Extraocular motions intact. MOUTH: Oropharynx is normal. NECK: No adenopathy, no JVD. CHEST: Chest with diminished breath sounds bilaterally. No wheezes, rales, or rhonchi. CARDIAC: Regular rate and rhythm. S1 and S2, without murmurs, gallops, or rubs. ABDOMEN: Soft, non tender and non distended. No rebound or guarding, and no masses palpated. Bowel Sounds normal. MUSCULOSKELETAL: bilateral BKA NEUROLOGIC EXAM: Awake PSYCHIATRIC: Stable mood SKIN: No obvious lesions - Constitutional Vitals: Vital Signs - 12hr 09/08/20 09/08/20 09/08/20 10:13 12:10 16:08 Temperature 97.3 F L 98.0 F Pulse Rate 71 43 L 51 L Respiratory 17 17 Rate Blood Pressure 168/68 166/58 Blood Pressure 148/75 [Left] O2 Sat by Pulse 97 88 91 Oximetry - Labs CBC & Chem 7: 09/11/20 08:25 09/11/20 08:25 Labs: Abnormal lab results 09/07/20 09/08/20 09/08/20 Range/Units 18:38 05:18 05:18 WBC 12.0 H (4.5-11.0) K/mm3 RBC 2.93 L (3.65-5.03) M/mm3 Hgb 7.6 L (10.1-14.3) gm/dl Hct 23.7 L (30.3-42.9) % MCH 26 L (28-32) pg RDW 29.3 H (13.2-15.2) % Plt Count 130 L (140-440) K/mm3 Seg Neutrophils % 78.8 H (40.0-70.0) % Seg Neutrophils # 9.5 H (1.8-7.7) K/mm3 PT 34.0 H (12.2-14.9) Sec. INR 3.27 H (0.87-1.13) Sodium (137-145) mmol/L Chloride (98-107) mmol/L Carbon Dioxide (22-30) mmol/L BUN (7-17) mg/dL Creatinine (0.6-1.2) mg/dL Glucose (65-100) mg/dL POC Glucose 107 H (70-105) mg/dL Alkaline Phosphatase (35-129) units/L Total Protein (6.3-8.2) g/dL Albumin (3.9-5) g/dL 09/08/20 09/08/20 Range/Units 05:18 12:21 WBC (4.5-11.0) K/mm3 RBC (3.65-5.03) M/mm3 Hgb (10.1-14.3) gm/dl Hct (30.3-42.9) % MCH (28-32) pg RDW (13.2-15.2) % Plt Count (140-440) K/mm3 Seg Neutrophils % (40.0-70.0) % Seg Neutrophils # (1.8-7.7) K/mm3 PT (12.2-14.9) Sec. INR (0.87-1.13) Sodium 148 H (137-145) mmol/L Chloride 127.0 H (98-107) mmol/L Carbon Dioxide 12 L (22-30) mmol/L BUN 77 H (7-17) mg/dL Creatinine 2.3 H (0.6-1.2) mg/dL Glucose 60 L (65-100) mg/dL POC Glucose 110 H (70-105) mg/dL Alkaline Phosphatase 185 H (35-129) units/L Total Protein 5.0 L (6.3-8.2) g/dL Albumin 2.4 L (3.9-5) g/dL
[2020-09-08] MEDS: INSULIN GLARGINE 100 UNITS/ML SUB-Q SCH (22:38)
[2020-09-09 09:39] LABS: Hematocrit 23.9 % (30.3-42.9); Hemoglobin 7.5 gm/dl (10.1-14.3); Mean Corpuscular HGB Conc 32 % (30-34); Mean Corpuscular Volume 82 fl (79-97); Platelet Count 119 K/mm3 (140-440); Red Blood Count 2.92 M/mm3 (3.65-5.03)
[2020-09-09 09:53] LABS: Red Cell Distribution Width 29.4 % (13.2-15.2)
[2020-09-09 10:02] LABS: Albumin 2.4 g/dL (3.9-5); Calcium 8.4 mg/dL (8.4-10.2)
[2020-09-09 10:10] LABS: INR 1.59 (0.87-1.13)
--- NOTE | 2020-09-09 10:13 | Progress Note ---
Assessment and Plan Cultures: Blood culture no growth today. SARS CoV2 PCR positive [facility] 08/24/2020. Assessment: 64 years old female with history of diabetes mellitus, hypertension, peripheral vascular disease status post bilateral BKA, chronic kidney disease, tobacco use, tested positive for COVID-19 outpatient the day before admission, admitted on 09/01/2020 due to a week history of cough, generalized weakness, body aches, subjective fever, shortness of breath, nausea, multiple diarrheic episodes, patient recently admitted to [facility] from 08/23/2020 until 08/27/2020 for symptomatic anemia, hemoglobin at 4.5, refused further work-up and tested positive for COVID-19, asymptomatic: #Severe sepsis: Hypothermia and hypotension improving, likely due to bilateral pneumonia +/-severe anemia. #Severe COVID pneumonia: Patient tested positive at [facility] on 08/24/2020. Initial ferritin normal, D-dimer elevated 2.4. D-dimer here 08/10/1976. Ferritin slightly elevated 313. Chest x-ray shows extensive bilateral airspace disease. Patient is currently on room air. There may be a component of volume overload. Echocardiogram at [facility] EF 43%. BNP 70,000. Procalcitonin normal, hence I doubt bacterial component. #Elevated LFTs: from COVID #Hypoxia: Patient remains on room air sats 91% #DIRK on CKD: from COVID #Acute thrombocytopenia: Platelets 08/27/2020 were 146. Likely due to COVID-19 infection. #Acute diarrhea: Multiple episodes. Likely associated to COVID-19 infection. C. difficile toxin PCR negative. #Bilateral lower extremity DVT: Anticoagulation on hold due to severe anemia #Severe anemia: Patient refused GI bleed work-up at [facility], on PPI Recommendations: -Continue Solu-Medrol x 10 days -No indication for remdesivir as pt is symptomatic for over 10 days so no benefit -Monitor inflammatory markers - ferritin, Ddimer, CRP, LDH -monitor O2 sats will sign off please call us Beba Parker MD Infectious Diseases [employer] [facility] M [phone] O [phone] Subjective Principal diagnosis: Iron Def Anemia Objective - Constitutional Vitals: Vital Signs Temp Pulse Resp BP Pulse Ox 98.4 F 61 20 150/65 91 11/11/20 04:29 09/09/20 04:29 09/09/20 04:29 09/09/20 04:29 09/09/20 04:29 Temperature -Last 24 Hours Temperature 98.4 F Temperature 98.0 F Temperature 97.3 F - Labs CBC & Chem 7: 09/09/20 09:06 09/09/20 09:06 Labs: Abnormal lab results 09/08/20 09/08/20 09/09/20 Range/Units 12:21 22:01 09:06 WBC (4.5-11.0) K/mm3 RBC (3.65-5.03) M/mm3 Hgb (10.1-14.3) gm/dl Hct (30.3-42.9) % MCH (28-32) pg RDW (13.2-15.2) % Plt Count (140-440) K/mm3 PT 19.3 H (12.2-14.9) Sec. INR 1.59 H (0.87-1.13) Sodium (137-145) mmol/L Chloride (98-107) mmol/L Carbon Dioxide (22-30) mmol/L BUN (7-17) mg/dL Creatinine (0.6-1.2) mg/dL Glucose (65-100) mg/dL POC Glucose 110 H 129 H (70-105) mg/dL Alkaline Phosphatase (35-129) units/L Total Protein (6.3-8.2) g/dL Albumin (3.9-5) g/dL 09/09/20 09/09/20 Range/Units 09:06 09:06 WBC 11.5 H (4.5-11.0) K/mm3 RBC 2.92 L (3.65-5.03) M/mm3 Hgb 7.5 L (10.1-14.3) gm/dl Hct 23.9 L (30.3-42.9) % MCH 26 L (28-32) pg RDW 29.4 H (13.2-15.2) % Plt Count 119 L (140-440) K/mm3 PT (12.2-14.9) Sec. INR (0.87-1.13) Sodium 153 H (137-145) mmol/L Chloride 128.7 H (98-107) mmol/L Carbon Dioxide 13 L (22-30) mmol/L BUN 70 H (7-17) mg/dL Creatinine 2.3 H (0.6-1.2) mg/dL Glucose 102 H (65-100) mg/dL POC Glucose (70-105) mg/dL Alkaline Phosphatase 186 H (35-129) units/L Total Protein 4.4 L (6.3-8.2) g/dL Albumin 2.4 L (3.9-5) g/dL
[2020-09-09 10:26] LABS: Anisocytosis 3+; Basophils % (Manual) 0 % (0.0-1.8); Burr Cells 2+; Eosinophils % (Manual) 0 % (0.0-4.3); Hypochromasia 1+; Total Cells Counted 100
[2020-09-09 10:27] LABS: Platelet Estimate Consistent w Auto; Poikilocytosis Few
--- NOTE | 2020-09-09 11:27 | Gastroenterology Progress Note ---
Assessment and Plan - Patient Problems (1) Iron deficiency anemia due to chronic blood loss Current Visit: Yes Status: Acute Plan to address problem: - Anemic x several years (per [facility] records); EGD 2014 showed severe esophagitis and mild gastritis; no colonoscopy on file. - No gross bleeding here, and tolerating protonix. Does have black liquid st ool, but on daily iron pills this is unreliable. She has no thick stool consistent with melena. - Will avoid EGD/colon while COVID positive with pneumonia, unless gross bleeding. - Continue MVI daily, and continue iron/protonix. Labs stable 09/08 - Will resume ASA tomorrow now that INR is improved (given hx of bilateral BKA, I suspect her DVTs are chronic, but will resume the ASA). (2) COVID-19 Current Visit: Yes Status: Acute Subjective Date of service: 09/09/20 Principal diagnosis: Iron Def Anemia Interval history: The patient is tolerating her meals without N/V/abdominal pain, and has no blood in the stools. Objective - Constitutional Vitals: Temp Pulse Resp BP Pulse Ox 98.4 F 61 20 150/65 91 09/09/20 04:29 09/09/20 04:29 09/09/20 04:29 09/09/20 04:29 09/09/20 04:29 General appearance: no acute distress - Respiratory Respiratory effort: normal Respiratory: bilateral: CTA - Cardiovascular Rhythm: regular Heart Sounds: Present: S1 & S2 - Gastrointestinal General gastrointestinal: Present: soft, non-tender, non-distended - Labs CBC & Chem 7: 09/09/20 09:06 09/09/20 09:06 Labs: Laboratory Results - last 24 hr 09/08/20 09/08/20 09/08/20 12:21 16:22 22:01 WBC RBC Hgb Hct MCV MCH MCHC RDW Plt Count Add Manual Diff Total Counted Seg Neuts % (Manual) Band Neutrophils % Lymphocytes % (Manual) Reactive Lymphs % (Man) Monocytes % (Manual) Eosinophils % (Manual) Basophils % (Manual) Metamyelocytes % Myelocytes % Promyelocytes % Blast Cells % Nucleated RBC % Seg Neutrophils # Man Band Neutrophils # Lymphocytes # (Manual) Abs React Lymphs (Man) Monocytes # (Manual) Eosinophils # (Manual) Basophils # (Manual) Metamyelocytes # Myelocytes # Promyelocytes # Blast Cells # WBC Morphology Hypersegmented Neuts Hyposegmented Neuts Hypogranular Neuts Smudge Cells Toxic Granulation Toxic Vacuolation Dohle Bodies Pelger-Huet Anomaly Ignacia Rods Platelet Estimate Clumped Platelets Plt Clumps, EDTA Large Platelets Giant Platelets Platelet Satelliting Plt Morphology Comment RBC Morphology Dimorphic RBCs Polychromasia Hypochromasia Poikilocytosis Anisocytosis Microcytosis Macrocytosis Spherocytes Pappenheimer Bodies Sickle Cells Target Cells Tear Drop Cells Ovalocytes Helmet Cells Horvath-Flovilla Bodies Kensett Rings Flora Cells Bite Cells Crenated Cell Elliptocytes Acanthocytes (Spur) Rouleaux Hemoglobin C Crystals Schistocytes Malaria parasites Molina Bodies Hem Pathologist Commnt PT INR Sodium Potassium Chloride Carbon Dioxide Anion Gap BUN Creatinine Estimated GFR BUN/Creatinine Ratio Glucose POC Glucose 110 H 102 129 H Calcium Total Bilirubin AST ALT Alkaline Phosphatase Total Protein Albumin Albumin/Globulin Ratio 09/09/20 09/09/20 09/09/20 09:06 09:06 09:06 WBC 11.5 H RBC 2.92 L Hgb 7.5 L Hct 23.9 L MCV 82 MCH 26 L MCHC 32 RDW 29.4 H Plt Count 119 L Add Manual Diff Complete Total Counted 100 Seg Neuts % (Manual) 98.0 H Band Neutrophils % 0 Lymphocytes % (Manual) 0 L Reactive Lymphs % (Man) 0 Monocytes % (Manual) 2.0 Eosinophils % (Manual) 0 Basophils % (Manual) 0 Metamyelocytes % 0 Myelocytes % 0 Promyelocytes % 0 Blast Cells % 0 Nucleated RBC % Not Reportable Seg Neutrophils # Man 11.3 H Band Neutrophils # 0.0 Lymphocytes # (Manual) 0.0 L Abs React Lymphs (Man) 0.0 Monocytes # (Manual) 0.2 Eosinophils # (Manual) 0.0 Basophils # (Manual) 0.0 Metamyelocytes # 0.0 Myelocytes # 0.0 Promyelocytes # 0.0 Blast Cells # 0.0 WBC Morphology Not Reportable Hypersegmented Neuts Not Reportable Hyposegmented Neuts Not Reportable Hypogranular Neuts Not Reportable Smudge Cells Not Reportable Toxic Granulation Not Reportable Toxic Vacuolation Not Reportable Dohle Bodies Not Reportable Pelger-Huet Anomaly Not Reportable Ignacia Rods Not Reportable Platelet Estimate Consistent w auto Clumped Platelets Not Reportable Plt Clumps, EDTA Not Reportable Large Platelets Not Reportable Giant Platelets Not Reportable Platelet Satelliting Not Reportable Plt Morphology Comment Not Reportable RBC Morphology Not Reportable Dimorphic RBCs Not Reportable Polychromasia Not Reportable Hypochromasia 1+ Poikilocytosis Few Anisocytosis 3+ Microcytosis Not Reportable Macrocytosis Not Reportable Spherocytes Not Reportable Pappenheimer Bodies Not Reportable Sickle Cells Not Reportable Target Cells Not Reportable Tear Drop Cells Not Reportable Ovalocytes Not Reportable Helmet Cells Not Reportable Horvath-Flovilla Bodies Not Reportable Kensett Rings Not Reportable Flora Cells 2+ Bite Cells Not Reportable Crenated Cell Not Reportable Elliptocytes Few Acanthocytes (Spur) Not Reportable Rouleaux Not Reportable Hemoglobin C Crystals Not Reportable Schistocytes Not Reportable Malaria parasites Not Reportable Molina Bodies Not Reportable Hem Pathologist Commnt No PT 19.3 H INR 1.59 H Sodium 153 H Potassium 4.3 Chloride 128.7 H Carbon Dioxide 13 L Anion Gap 16 BUN 70 H Creatinine 2.3 H Estimated GFR 26 BUN/Creatinine Ratio 30 Glucose 102 H POC Glucose Calcium 8.4 Total Bilirubin 0.40 AST 26 ALT 22 Alkaline Phosphatase 186 H Total Protein 4.4 L Albumin 2.4 L Albumin/Globulin Ratio 1.2
--- NOTE | 2020-09-09 12:25 | Progress Note ---
Assessment and Plan 1. Acute kidney injury: DIRK secondary to combination of Vasomotor nephropathy and severe sepsis. Renal US negative for hydro. Urine studies ordered. Monitor renal function. Creatinine leveled off. Prior Creatinine was 1.2 in 2014. Likely CKD stage 4. Renal prognosis is guarded. Avoid nephrotoxic agents. Meds dosage based on GFR. 2. FEN: Mild hyperkalemia, improved, monitor. Hyperchloremic Metabolic acidosis, on Pot bicarbonate, monitor. Unable to give Sod bicarb due to hypernatremia. Hypernatremia, sodium level is 153. Increase IV D5W and continue Metolazone. Monitor lytes. 3. Nephrotic syndrome: Likely diabetic nephropathy. DEMARCUS, ANCA, complements, GBM Ab and SPEP ordered. 4. Severe sepsis, POA: Presented with hypothermia, hypotension. Likely secondary to bilateral pneumonia. 5. Severe COVID infection: Followed by ID. 6. Bilateral LE DVT, POA. 7. Microcytic anemia, POA: S/p PRBC. Monitor. 8. Thrombocytopenia, POA. 9. Acute diarrhea: Likely associated to COVID-19 infection. C. difficile test negative. Subjective: Patient was seen and examined at the bedside. Denies any new complaint. General Appearance: General appearance: well-developed, well-nourished, appears stated age, no distress, obese HEENT: ATNC, JAYCE Neck: supple Respiratory: ctab Cardiology: regular, S1S2, no murmur Gastrointestinal: normoactive bowel sounds, no tenderness, not distended Integumentary: no obvious rash Neurologic: alert, moving extremities, confusion noted Ext: no edema, b/l BKA Subjective Date of service: 09/09/20 Principal diagnosis: Iron Def Anemia Objective - Vital Signs Vital signs: Vital Signs - 12hr 09/09/20 09/09/20 09/09/20 00:49 04:00 04:29 Temperature 98.4 F Pulse Rate 61 61 Respiratory 18 20 Rate Blood Pressure 150/65 O2 Sat by Pulse 98 91 Oximetry 09/09/20 11:14 Temperature 97.8 F Pulse Rate 73 Respiratory 18 Rate Blood Pressure 147/67 O2 Sat by Pulse 87 Oximetry - Lab 09/09/20 09:06 09/09/20 09:06 Most recent lab results Calcium 8.4 mg/dL (8.4-10.2) 09/09/20 09:06 Phosphorus 3.50 mg/dL (2.5-4.5) 09/06/20 06:43 Urine Creatinine 43.2 mg/dL (0.1-20.0) H 09/06/20 06:52 Urine Sodium 84 mmol/L 09/06/20 06:52 Urine Total Protein 298 mg/dL (5-11.8) H 09/06/20 06:52 Medications & Allergies - Medications Allergies/Adverse Reactions: Allergies No Known Allergies Allergy (Unverified 02/14/14 19:23) Home Medications: Home Medications Medication Instructions Recorded Confirmed Last Taken Type Aspirin [Bonner Aspirin] 81 mg PO DAILY 02/14/14 02/22/14 02/14/14 11:00 History Ferrous Sulfate [Feosol 325mg] 325 mg PO DAILY 02/14/14 02/22/14 02/14/14 11:00 History Sertraline [Zoloft] 50 mg PO DAILY 02/14/14 02/22/14 02/14/14 11:00 History amLODIPine 5 mg PO DAILY 02/14/14 02/22/14 02/14/14 11:00 History hydroCHLOROthiazide 25 mg PO DAILY 02/14/14 02/22/14 02/14/14 11:00 History [Hydrochlorothiazide] lisinopriL [Zestril TAB] 10 mg PO DAILY 02/14/14 02/22/14 02/14/14 11:00 History Insulin NPH Hum/Reg Insulin Hm 100 units SQ BID 02/22/14 02/23/14 Unknown History [Humulin 70-30 Vial] Insulin Regular, Human [HumuLIN R] 7 unit SQ AC 02/22/14 02/23/14 Unknown History Active Medications: Generic Name Dose Route Start Last Admin Trade Name Freq PRN Reason Stop Dose Admin Acetaminophen 650 mg 09/02/20 00:30 09/05/20 22:50 Tylenol PO 650 mg Q6H PRN Administration Pain, Mild (1-3) Aspirin 325 mg 09/09/20 12:00 Ecotrin PO QDAY JAE Calcitriol 0.5 mcg 09/05/20 13:00 09/08/20 09:38 Rocaltrol PO 0.5 mcg QDAY JAE Administration Dexamethasone 6 mg 09/03/20 18:00 09/08/20 09:38 Decadron IV 09/12/20 10:01 6 mg DAILY JAE Administration Ferrous Sulfate 325 mg 09/02/20 10:00 09/08/20 09:39 Feosol PO 325 mg DAILY JAE Administration Hydromorphone HCl 0.25 mg 09/02/20 00:30 09/05/20 23:28 Dilaudid IV 0.25 mg Q4H PRN Administration Pain, Moderate (4-6) Sodium Chloride 500 mls @ 0 mls/hr 09/04/20 13:03 Nacl 0.9% 500 Ml IV ONCE JAE As Directed Dextrose 1,000 mls @ 75 mls/hr 09/05/20 13:00 09/06/20 14:35 D5w IV 50 mls/hr DIRECT JAE Administration Insulin Glargine 14 units 09/07/20 22:00 09/08/20 22:38 Lantus SUB-Q 14 units QHS JAE Administration Insulin Human Lispro 0 unit 09/03/20 11:30 09/08/20 22:38 Humalog SUB-Q Not Given ACHS [facility] Protocol Metolazone 10 mg 09/07/20 10:00 09/08/20 10:12 Zaroxolyn PO 10 mg QDAY JAE Administration Multivitamins 1 each 09/06/20 10:00 09/08/20 09:39 Theragran Tab PO 1 each QDAY JAE Administration Pantoprazole Sodium 40 mg 09/05/20 22:00 09/08/20 22:38 Protonix IV 40 mg BID JAE Administration Potassium Bicarbonate 50 meq 09/05/20 13:00 09/08/20 09:39 Klor-Con PO 50 meq QDAY JAE Administration Sertraline HCl 50 mg 09/02/20 10:00 09/08/20 09:39 Zoloft PO 50 mg DAILY JAE Administration Sodium Chloride 10 ml 09/02/20 10:00 09/08/20 22:39 Sodium Chloride Flush Syringe 10 Ml IV 10 ml BID JAE Administration Sodium Chloride 10 ml 09/02/20 00:30 Sodium Chloride Flush Syringe 10 Ml IV PRN PRN LINE FLUSH
[2020-09-09] MEDS: INSULIN LISPRO 100 UNIT/ML VIAL 3 mL SUB-Q SCH ×4 (12:26→23:10)
[2020-09-09] MEDS: dexAMETHasone 4 MG/ML VIAL IV SCH (12:28)
[2020-09-09] MEDS: ASPIRIN EC 325 MG TAB PO SCH (12:28)
[2020-09-09] MEDS: MULTIVITAMINS ,THERAPEUTIC TAB PO SCH (12:29)
[2020-09-09] MEDS: PANTOPRAZOLE 40 MG INJ IV SCH ×2 (12:29→21:09)
[2020-09-09] MEDS: FERROUS SULFATE 325 MG TAB PO SCH (12:29)
[2020-09-09] MEDS: SERTRALINE 50 MG TAB PO SCH (12:29)
[2020-09-09] MEDS: CALCITRIOL 0.5 MCG CAP PO SCH (12:36)
[2020-09-09] MEDS: K-LYTE 25 MEQ TABLET EFF PO SCH (12:36)
[2020-09-09] MEDS: metOLazone 5 MG TAB PO SCH (12:36)
--- NOTE | 2020-09-09 15:58 | Progress Note ---
Assessment and Plan --Sepsis Due to COVID-19 pneumonia Blood culture NTD ID recommendations appreciated --COVID-19 pneumonia, POA Coronavirus protocol: Coronavirus PCR is positive, contact precaution, isolation precautions, prone positioning while in bed, Not a candidate for remdesivir due to renal failure Continue dexamethasone --Acute on chronic anemia Due to chronic GI bleed and iron deficiency Status post transfusion of 2 unit PRBC PPI. Continue to monitor for GI bleed As per GI, does not look like patient is having GI bleed at this time Advance diet as tolerated --Possible GI bleed, chronic Advance diet, GI on board Recommended to manage medical --Acute kidney injury (DIRK) with acute tubular necrosis (ATN) Continue to monitor renal function Nephrology following closely --Hypernatremia Continue isotonic solution Nephrology on board --Bilateral lower extremity DVT, chronic Consulted vascular surgeon for consideration of IVC filter placement. As per vascular surgery, patient is not a good candidate for IVC filter placement INR 2.74. GI recommended to treat with aspirin only --Diabetes Current Visit: Yes Status: Acute Plan to address problem: Sliding-scale insulin therapy, Accu-Chek, hypoglycemia protocol, consistent car bohydrate diet. --DVT prophylaxis, Anticoagulation --Advance care planning Disease education conducted, prognosis discussed, patient is full code, care plan discussed, patient knowledges understanding and agreement with care plan. +30 minutes. --Nicotine dependence Supportive care, smoking cessation counseling, behavior change counseling, +15 minutes. Brief History; 64 YO Female with HTN, DM, Anemia, PVD, Nicotine Dependence, positive coronavirus test recently at [facility] presented to the emergency room for further evaluation. Patient states that she has experienced subjective fever, generalized weakness, body aches, shortness of breath, nausea, multiple loose stools, lower extremity edema over the past 1 week with progressively worsening symptoms over the past 3 to 4 days prior to presentation. Patient was brought to the emergency room as a result. Here, patient found to be hypotensive with a systolic blood pressure ranging from 53-94. Patient was also hypothermic with a body temperature of 93.3 F. Patient met criteria for sepsis protocol and found to have bilateral pneumonia, metabolic acidosis, acute kidney injury. Patient admitted to telemetry due to increased risk of multisystem decompensation. Patient initiated on coronavirus protocol. Coronavirus PCR has been ordered and is pending at time of admission. Patient remained hypotensive in spite of IV fluid resuscitation therapy. Patient subsequently upgraded to IMCU. 09/03. While in the ER, patient had an ultrasound Doppler performed that showed bilateral DVT involving the iliac veins. Patient was started on heparin drip. ID consulted for COVID-19 and nephrology consulted for DIRK. Patient seen and examined at bedside this morning. She has no complaints this morning. Her hemoglobin dropped to 6.4 this morning. Patient will get transfused 1 unit of PRBCs. Later this p.m., was notified by nurse that patient is having tarry dark stool and hematemesis. Heparin drip discontinued. Patient started on PPI drip and made n.p.o. GI is has been consulted. Patient will need to have an upper endoscopy. She has bilateral lower extremity DVT and will need vascular surgery evaluation to determine if she is a candidate for IVC filter placement. 09/04. Patient seen and examined at bedside this morning. Labs reviewed showed hemoglobin 5.3. Patient will receive 2 units PRBCs. FFP also ordered. GI evaluation pending. Continue PPIs. Vascular surgeon to see to determine if patient is a candidate for IVC filter placement for DVT. 09/05. Hb stable this morning. GI on board. On PPI drip. 09/06. Gastroenterology and vascular surgery recommendations reviewed. Patient not a good candidate for IVC filter placement due to location of the clot/thrombosis. Plan is for patient to have anticoagulation on while monitoring hemoglobin. Patient's INR is more than 2 at this time so we will hold anticoagulation for now and monitor hemoglobin. Plan to initiate antico agulation when INR is less than 2. We will preferably use heparin products as she has a high chance of bleeding. Continue to monitor hemoglobin. Hb 7.3 this a.m. 09/07. Hemoglobin 8.2 this AM. No clear signs of GI bleed. Her INR is 2.74. No need for initiation of AC for now as she INR is already therapeutic. Plan is to monitor for bleeding and if she remains stable, she will be started on ant icoagulation for her bilateral DVT. Vascular surgery following-patient not a candidate for IVC catheter placement. GI recommendations appreciated 09/08: Patient is nonreactive to COVID-19 antibody, per ID order for convalescent plasma. Continue supportive care, follow clinically 09/09: Pending convalescent plasma transfusion, continue to follow inflammatory markers. Monitor H&H. Plan to start on aspirin tomorrow if INR and H&H stable Subjective Date of service: 09/09/20 Principal diagnosis: Iron Def Anemia Interval history: Patient seen and examined She denies any chest pain, no obvious active bleeding Ordered for convalescent plasma -pending Discussed with RN at the bedside Vitals reviewed Objective - Exam Narrative Exam: GENERAL: Awake HEAD: No signs of head trauma. EYES: Pupils are equal. Extraocular motions intact. MOUTH: Oropharynx is normal. NECK: No adenopathy, no JVD. CHEST: Chest with diminished breath sounds bilaterally. No wheezes, rales, or rhonchi. CARDIAC: Regular rate and rhythm. S1 and S2, without murmurs, gallops, or rubs. ABDOMEN: Soft, non tender and non distended. No rebound or guarding, and no masses palpated. Bowel Sounds normal. MUSCULOSKELETAL: bilateral BKA NEUROLOGIC EXAM: Awake PSYCHIATRIC: Stable mood SKIN: No obvious lesions - Constitutional Vitals: Vital Signs - 12hr 09/09/20 09/09/20 09/09/20 04:00 04:29 11:14 Temperature 98.4 F 97.8 F Pulse Rate 61 61 73 Respiratory 20 18 Rate Blood Pressure 150/65 147/67 O2 Sat by Pulse 91 87 Oximetry - Labs CBC & Chem 7: 09/11/20 08:25 09/11/20 08:25 Labs: Abnormal lab results 09/08/20 09/09/20 09/09/20 Range/Units 22:01 09:06 09:06 WBC 11.5 H (4.5-11.0) K/mm3 RBC 2.92 L (3.65-5.03) M/mm3 Hgb 7.5 L (10.1-14.3) gm/dl Hct 23.9 L (30.3-42.9) % MCH 26 L (28-32) pg RDW 29.4 H (13.2-15.2) % Plt Count 119 L (140-440) K/mm3 Seg Neuts % (Manual) 98.0 H (40.0-70.0) % Lymphocytes % (Manual) 0 L (13.4-35.0) % Seg Neutrophils # Man 11.3 H (1.8-7.7) K/mm3 Lymphocytes # (Manual) 0.0 L (1.2-5.4) K/mm3 PT 19.3 H (12.2-14.9) Sec. INR 1.59 H (0.87-1.13) Sodium (137-145) mmol/L Chloride (98-107) mmol/L Carbon Dioxide (22-30) mmol/L BUN (7-17) mg/dL Creatinine (0.6-1.2) mg/dL Glucose (65-100) mg/dL POC Glucose 129 H (70-105) mg/dL Alkaline Phosphatase (35-129) units/L Total Protein (6.3-8.2) g/dL Albumin (3.9-5) g/dL 09/09/20 Range/Units 09:06 WBC (4.5-11.0) K/mm3 RBC (3.65-5.03) M/mm3 Hgb (10.1-14.3) gm/dl Hct (30.3-42.9) % MCH (28-32) pg RDW (13.2-15.2) % Plt Count (140-440) K/mm3 Seg Neuts % (Manual) (40.0-70.0) % Lymphocytes % (Manual) (13.4-35.0) % Seg Neutrophils # Man (1.8-7.7) K/mm3 Lymphocytes # (Manual) (1.2-5.4) K/mm3 PT (12.2-14.9) Sec. INR (0.87-1.13) Sodium 153 H (137-145) mmol/L Chloride 128.7 H (98-107) mmol/L Carbon Dioxide 13 L (22-30) mmol/L BUN 70 H (7-17) mg/dL Creatinine 2.3 H (0.6-1.2) mg/dL Glucose 102 H (65-100) mg/dL POC Glucose (70-105) mg/dL Alkaline Phosphatase 186 H (35-129) units/L Total Protein 4.4 L (6.3-8.2) g/dL Albumin 2.4 L (3.9-5) g/dL
[2020-09-09] MEDS: INSULIN GLARGINE 100 UNITS/ML SUB-Q SCH (23:10)
[2020-09-09] MEDS: DEXTROSE 5% IN WATER 1,000 ML IV SCH (23:19)
[2020-09-10] MEDS ORDERED: SODIUM CHLORIDE 0.9% 250ML 250 ML IV ONE (05:07)
[2020-09-10 06:03] LABS: Hemoglobin 6.8 gm/dl (10.1-14.3); Mean Corpuscular HGB Conc 31 % (30-34); Mean Corpuscular Volume 83 fl (79-97); Platelet Count 110 K/mm3 (140-440); Red Blood Count 2.66 M/mm3 (3.65-5.03)
[2020-09-10 06:07] LABS: Red Cell Distribution Width 29.9 % (13.2-15.2)
[2020-09-10 06:12] LABS: INR 1.32 (0.87-1.13)
[2020-09-10 06:26] LABS: Albumin 2.3 g/dL (3.9-5); Calcium 8.1 mg/dL (8.4-10.2)
[2020-09-10 06:44] LABS: Anisocytosis 3+; Band Neutrophils # (Manual) 0.1 K/mm3; Basophils % (Manual) 0 % (0.0-1.8); Eosinophils % (Manual) 0 % (0.0-4.3); Hypochromasia 1+; Total Cells Counted 100
[2020-09-10 06:45] LABS: Dimorphic RBC Yes; Ovalocytes Few; Platelet Estimate Consistent w Auto
[2020-09-10] MEDS: INSULIN LISPRO 100 UNIT/ML VIAL 3 mL SUB-Q SCH ×4 (08:30→23:33)
[2020-09-10] MEDS: dexAMETHasone 4 MG/ML VIAL IV SCH (09:49)
[2020-09-10] MEDS: FERROUS SULFATE 325 MG TAB PO SCH (09:49)
[2020-09-10] MEDS: PANTOPRAZOLE 40 MG INJ IV SCH (09:50)
[2020-09-10] MEDS: CALCITRIOL 0.5 MCG CAP PO SCH (09:50)
[2020-09-10] MEDS: K-LYTE 25 MEQ TABLET EFF PO SCH ×3 (09:50→23:35)
[2020-09-10] MEDS: metOLazone 5 MG TAB PO SCH (09:50)
[2020-09-10] MEDS: MULTIVITAMINS ,THERAPEUTIC TAB PO SCH (09:50)
[2020-09-10] MEDS: ASPIRIN EC 325 MG TAB PO SCH (09:50)
[2020-09-10] MEDS: SERTRALINE 50 MG TAB PO SCH (11:42)
[2020-09-10] MEDS ORDERED: SODIUM CHLORIDE 0.9% 500 ML 500 ML IV NR (11:57)
--- NOTE | 2020-09-10 12:34 | Gastroenterology Progress Note ---
Assessment and Plan - Patient Problems (1) Iron deficiency anemia due to chronic blood loss Current Visit: Yes Status: Acute Plan to address problem: - Anemic x several years (per [facility] records); EGD 2014 showed severe esophagitis and mild gastritis; no colonoscopy on file. - No gross bleeding here, and tolerating protonix. Does have black liquid st ool, but on daily iron pills this is unreliable. She has no thick stool consistent with melena. - Will avoid EGD/colon while COVID positive with pneumonia, unless gross bleeding. - Continue MVI daily, and continue iron/protonix. Labs stable 09/08 - Will resume ASA tomorrow now that INR is improved (given hx of bilateral BKA, I suspect her DVTs are chronic, but will resume the ASA). (2) COVID-19 Current Visit: Yes Status: Acute Subjective Date of service: 09/10/20 Principal diagnosis: Iron Def Anemia Interval history: The patient has no N/V/abdominal pain/weight loss/blood in the stools. Objective - Constitutional Vitals: Temp Pulse Resp BP Pulse Ox 97.5 F L 78 20 164/82 91 09/10/20 05:15 09/10/20 05:15 09/10/20 05:15 09/10/20 05:15 09/10/20 04:23 General appearance: no acute distress - Respiratory Respiratory effort: normal Respiratory: bilateral: CTA - Cardiovascular Rhythm: regular Heart Sounds: Present: S1 & S2 - Gastrointestinal General gastrointestinal: Present: soft, non-tender, non-distended - Labs CBC & Chem 7: 09/10/20 05:12 09/10/20 05:12 Labs: Laboratory Results - last 24 hr 09/09/20 09/09/20 09/10/20 18:35 23:08 05:12 WBC 12.1 H RBC 2.66 L Hgb 6.8 L Hct 22.0 L MCV 83 MCH 26 L MCHC 31 RDW 29.9 H Plt Count 110 L Add Manual Diff Complete Total Counted 100 Seg Neuts % (Manual) 97.0 H Band Neutrophils % 1.0 Lymphocytes % (Manual) 0 L Reactive Lymphs % (Man) 0 Monocytes % (Manual) 1.0 Eosinophils % (Manual) 0 Basophils % (Manual) 0 Metamyelocytes % 1.0 Myelocytes % 0 Promyelocytes % 0 Blast Cells % 0 Nucleated RBC % Not Reportable Seg Neutrophils # Man 11.7 H Band Neutrophils # 0.1 Lymphocytes # (Manual) 0.0 L Abs React Lymphs (Man) 0.0 Monocytes # (Manual) 0.1 Eosinophils # (Manual) 0.0 Basophils # (Manual) 0.0 Metamyelocytes # 0.1 Myelocytes # 0.0 Promyelocytes # 0.0 Blast Cells # 0.0 WBC Morphology Not Reportable Hypersegmented Neuts Not Reportable Hyposegmented Neuts Not Reportable Hypogranular Neuts Not Reportable Smudge Cells Not Reportable Toxic Granulation Not Reportable Toxic Vacuolation Not Reportable Dohle Bodies Not Reportable Pelger-Huet Anomaly Not Reportable Ignacia Rods Not Reportable Platelet Estimate Consistent w auto Clumped Platelets Not Reportable Plt Clumps, EDTA Not Reportable Large Platelets Not Reportable Giant Platelets Not Reportable Platelet Satelliting Not Reportable Plt Morphology Comment Not Reportable RBC Morphology Not Reportable Dimorphic RBCs Yes Polychromasia Not Reportable Hypochromasia 1+ Poikilocytosis Not Reportable Anisocytosis 3+ Microcytosis Not Reportable Macrocytosis Not Reportable Spherocytes Not Reportable Pappenheimer Bodies Not Reportable Sickle Cells Not Reportable Target Cells Not Reportable Tear Drop Cells Not Reportable Ovalocytes Few Helmet Cells Not Reportable Horvath-Alanreed Bodies Not Reportable [place] Rings Not Reportable [place] Cells Not Reportable Bite Cells Not Reportable Crenated Cell Not Reportable Elliptocytes Not Reportable Acanthocytes (Spur) Not Reportable Rouleaux Not Reportable Hemoglobin C Crystals Not Reportable Schistocytes Not Reportable Malaria parasites Not Reportable [place] Bodies Not Reportable Hem Pathologist Commnt No PT INR Sodium Potassium Chloride Carbon Dioxide Anion Gap BUN Creatinine Estimated GFR BUN/Creatinine Ratio Glucose POC Glucose 102 142 H Calcium Total Bilirubin AST ALT Alkaline Phosphatase Total Protein Albumin Albumin/Globulin Ratio 09/10/20 09/10/20 09/10/20 05:12 05:12 07:59 WBC RBC Hgb Hct MCV MCH MCHC RDW Plt Count Add Manual Diff Total Counted Seg Neuts % (Manual) Band Neutrophils % Lymphocytes % (Manual) Reactive Lymphs % (Man) Monocytes % (Manual) Eosinophils % (Manual) Basophils % (Manual) Metamyelocytes % Myelocytes % Promyelocytes % Blast Cells % Nucleated RBC % Seg Neutrophils # Man Band Neutrophils # Lymphocytes # (Manual) Abs React Lymphs (Man) Monocytes # (Manual) Eosinophils # (Manual) Basophils # (Manual) Metamyelocytes # Myelocytes # Promyelocytes # Blast Cells # WBC Morphology Hypersegmented Neuts Hyposegmented Neuts Hypogranular Neuts Smudge Cells Toxic Granulation Toxic Vacuolation Dohle Bodies Pelger-Huet Anomaly Ignacia Rods Platelet Estimate Clumped Platelets Plt Clumps, EDTA Large Platelets Giant Platelets Platelet Satelliting Plt Morphology Comment RBC Morphology Dimorphic RBCs Polychromasia Hypochromasia Poikilocytosis Anisocytosis Microcytosis Macrocytosis Spherocytes Pappenheimer Bodies Sickle Cells Target Cells Tear Drop Cells Ovalocytes Helmet Cells Horvath-Alanreed Bodies [place] Rings Flora Cells Bite Cells Crenated Cell Elliptocytes Acanthocytes (Spur) Rouleaux Hemoglobin C Crystals Schistocytes Malaria parasites Molina Bodies Hem Pathologist Commnt PT 16.7 H INR 1.32 H Sodium 153 H Potassium 4.2 Chloride 126.8 H Carbon Dioxide 14 L Anion Gap 16 BUN 69 H Creatinine 2.2 H Estimated GFR 27 BUN/Creatinine Ratio 31 Glucose 129 H POC Glucose 162 H Calcium 8.1 L Total Bilirubin 0.30 AST 23 ALT 20 Alkaline Phosphatase 180 H Total Protein 4.2 L Albumin 2.3 L Albumin/Globulin Ratio 1.2 09/10/20 12:23 WBC RBC Hgb Hct MCV MCH MCHC RDW Plt Count Add Manual Diff Total Counted Seg Neuts % (Manual) Band Neutrophils % Lymphocytes % (Manual) Reactive Lymphs % (Man) Monocytes % (Manual) Eosinophils % (Manual) Basophils % (Manual) Metamyelocytes % Myelocytes % Promyelocytes % Blast Cells % Nucleated RBC % Seg Neutrophils # Man Band Neutrophils # Lymphocytes # (Manual) Abs React Lymphs (Man) Monocytes # (Manual) Eosinophils # (Manual) Basophils # (Manual) Metamyelocytes # Myelocytes # Promyelocytes # Blast Cells # WBC Morphology Hypersegmented Neuts Hyposegmented Neuts Hypogranular Neuts Smudge Cells Toxic Granulation Toxic Vacuolation Dohle Bodies Pelger-Huet Anomaly Ignacia Rods Platelet Estimate Clumped Platelets Plt Clumps, EDTA Large Platelets Giant Platelets Platelet Satelliting Plt Morphology Comment RBC Morphology Dimorphic RBCs Polychromasia Hypochromasia Poikilocytosis Anisocytosis Microcytosis Macrocytosis Spherocytes Pappenheimer Bodies Sickle Cells Target Cells Tear Drop Cells Ovalocytes Helmet Cells Horvath-Alanreed Bodies [place] Rings Flora Cells Bite Cells Crenated Cell Elliptocytes Acanthocytes (Spur) Rouleaux Hemoglobin C Crystals Schistocytes Malaria parasites Molina Bodies Hem Pathologist Commnt PT INR Sodium Potassium Chloride Carbon Dioxide Anion Gap BUN Creatinine Estimated GFR BUN/Creatinine Ratio Glucose POC Glucose 148 H Calcium Total Bilirubin AST ALT Alkaline Phosphatase Total Protein Albumin Albumin/Globulin Ratio
--- NOTE | 2020-09-10 14:26 | Progress Note ---
Assessment and Plan 1. Acute kidney injury: DIRK secondary to combination of Vasomotor nephropathy and severe sepsis. Renal US negative for hydro. Monitor renal function. Creatinine leveled off. Prior Creatinine was 1.2 in 2014. Likely CKD stage 4. Renal prognosis is guarded. Avoid nephrotoxic agents. Meds dosage based on GFR. 2. FEN: Mild hyperkalemia, improved, monitor. Hyperchloremic Metabolic acidosis, on Pot bicarbonate, monitor. Unable to give Sod bicarb due to hypernatremia. Hypernatremia, sodium level remains high, on IV D5W 125ml/hr, monitor. One dose of PO DDAVP today. Monitor lytes. 3. Nephrotic syndrome: Likely diabetic nephropathy. DEMARCUS, ANCA, complements, GBM Ab and SPEP ordered. 4. Severe sepsis, POA: Presented with hypothermia, hypotension. Likely secondary to bilateral pneumonia. 5. Severe COVID infection: Followed by ID. 6. Bilateral LE DVT, POA. 7. Microcytic anemia, POA: S/p PRBC. Monitor. 8. Thrombocytopenia, POA. 9. Acute diarrhea: Likely associated to COVID-19 infection. C. difficile test negative. Subjective: Patient was seen and examined at the bedside. Denies any new complaint. General Appearance: General appearance: well-developed, well-nourished, appears stated age, no distress, obese HEENT: ATNC, JAYCE Neck: supple Respiratory: ctab Cardiology: regular, S1S2, no murmur Gastrointestinal: normoactive bowel sounds, no tenderness, not distended Integumentary: no obvious rash Neurologic: alert, moving extremities, confusion noted Ext: trace dependent edema, b/l BKA Subjective Date of service: 09/10/20 Principal diagnosis: Iron Def Anemia Objective - Vital Signs Vital signs: Vital Signs - 12hr 09/10/20 09/10/20 04:23 05:15 Temperature 97.5 F L 97.5 F L Pulse Rate 78 78 Respiratory 20 20 Rate Blood Pressure 164/82 164/82 O2 Sat by Pulse 91 Oximetry - Lab 09/10/20 05:12 09/10/20 05:12 Most recent lab results Calcium 8.1 mg/dL (8.4-10.2) L 09/10/20 05:12 Phosphorus 3.50 mg/dL (2.5-4.5) 09/06/20 06:43 Urine Creatinine 43.2 mg/dL (0.1-20.0) H 09/06/20 06:52 Urine Sodium 84 mmol/L 09/06/20 06:52 Urine Total Protein 298 mg/dL (5-11.8) H 09/06/20 06:52 Medications & Allergies - Medications Allergies/Adverse Reactions: Allergies No Known Allergies Allergy (Unverified 02/14/14 19:23) Home Medications: Home Medications Medication Instructions Recorded Confirmed Last Taken Type Aspirin [Dolores Aspirin] 81 mg PO DAILY 02/14/14 02/22/14 02/14/14 11:00 History Ferrous Sulfate [Feosol 325mg] 325 mg PO DAILY 02/14/14 02/22/14 02/14/14 11:00 History Sertraline [Zoloft] 50 mg PO DAILY 02/14/14 02/22/14 02/14/14 11:00 History amLODIPine 5 mg PO DAILY 02/14/14 02/22/14 02/14/14 11:00 History hydroCHLOROthiazide 25 mg PO DAILY 02/14/14 02/22/14 02/14/14 11:00 History [Hydrochlorothiazide] lisinopriL [Zestril TAB] 10 mg PO DAILY 02/14/14 02/22/14 02/14/14 11:00 History Insulin NPH Hum/Reg Insulin Hm 100 units SQ BID 02/22/14 02/23/14 Unknown History [Humulin 70-30 Vial] Insulin Regular, Human [HumuLIN R] 7 unit SQ AC 02/22/14 02/23/14 Unknown History Active Medications: Generic Name Dose Route Start Last Admin Trade Name Georgiq PRN Reason Stop Dose Admin Acetaminophen 650 mg 09/02/20 00:30 09/05/20 22:50 Tylenol PO 650 mg Q6H PRN Administration Pain, Mild (1-3) Aspirin 325 mg 09/09/20 12:00 09/10/20 09:50 Ecotrin PO 325 mg QDAY JAE Administration Calcitriol 0.5 mcg 09/05/20 13:00 09/10/20 09:50 Rocaltrol PO 0.5 mcg QDAY JAE Administration Dexamethasone 6 mg 09/03/20 18:00 09/10/20 09:49 Decadron IV 09/12/20 10:01 6 mg DAILY JAE Administration Ferrous Sulfate 325 mg 09/02/20 10:00 09/10/20 09:49 Feosol PO 325 mg DAILY JAE Administration Hydromorphone HCl 0.25 mg 09/02/20 00:30 09/05/20 23:28 Dilaudid IV 0.25 mg Q4H PRN Administration Pain, Moderate (4-6) Sodium Chloride 500 mls @ 0 mls/hr 09/04/20 13:03 Nacl 0.9% 500 Ml IV ONCE JAE As Directed Dextrose 1,000 mls @ 125 mls/hr 09/09/20 13:00 09/09/20 23:19 D5w IV 125 mls/hr DIRECT JAE Administration Sodium Chloride 500 mls @ 0 mls/hr 09/10/20 11:57 Nacl 0.9% 500 Ml IV 09/10/20 23:59 ONCE NR As Directed Insulin Glargine 14 units 09/07/20 22:00 09/09/20 23:10 Lantus SUB-Q 14 units QHS JAE Administration Insulin Human Lispro 0 unit 09/03/20 11:30 09/10/20 12:22 Humalog SUB-Q Not Given ACHS [facility] Protocol Metolazone 10 mg 09/07/20 10:00 09/10/20 09:50 Zaroxolyn PO 10 mg QDAY JAE Administration Multivitamins 1 each 09/06/20 10:00 09/10/20 09:50 Theragran Tab PO 1 each QDAY JAE Administration Pantoprazole Sodium 40 mg 09/11/20 07:30 Protonix PO QDAC JAE Potassium Bicarbonate 50 meq 09/05/20 13:00 09/10/20 09:50 Klor-Con PO 50 meq QDAY JAE Administration Sertraline HCl 50 mg 09/02/20 10:00 09/10/20 11:42 Zoloft PO 50 mg DAILY JAE Administration Sodium Chloride 10 ml 09/02/20 10:00 09/10/20 09:50 Sodium Chloride Flush Syringe 10 Ml IV 10 ml BID JAE Administration Sodium Chloride 10 ml 09/02/20 00:30 Sodium Chloride Flush Syringe 10 Ml IV PRN PRN LINE FLUSH
[2020-09-10] MEDS ORDERED: DESMOPRESSIN 0.1 MG TAB PO ONE (15:00)
--- NOTE | 2020-09-10 22:55 | Progress Note ---
Assessment and Plan --Sepsis Due to COVID-19 pneumonia Blood culture NTD ID recommendations appreciated --COVID-19 pneumonia, POA Coronavirus protocol: Coronavirus PCR is positive, contact precaution, isolation precautions, prone positioning while in bed, Not a candidate for remdesivir due to renal failure Continue dexamethasone --Acute on chronic anemia Due to chronic GI bleed and iron deficiency Hb dropped to 6.8 again today - transfuse Status post transfusion of 2 unit PRBC PPI. Continue to monitor for GI bleed As per GI, does not look like patient is having GI bleed at this time Advance diet as tolerated --Possible GI bleed, chronic Advance diet, GI on board Recommended to manage medically --Acute kidney injury (DIRK) with acute tubular necrosis (ATN) Continue to monitor renal function Nephrology following closely --Hypernatremia Continue isotonic solution Nephrology on board --Bilateral lower extremity DVT, chronic Consulted vascular surgeon for consideration of IVC filter placement. As per vascular surgery, patient is not a good candidate for IVC filter placement INR 2.74. GI recommended to treat with aspirin only --Diabetes Current Visit: Yes Status: Acute Plan to address problem: Sliding-scale insulin therapy, Accu-Chek, hypoglycemia protocol, consistent carbohydrate diet. --DVT prophylaxis, Anticoagulation --Advance care planning Disease education conducted, prognosis discussed, patient is full code, care plan discussed, patient knowledges understanding and agreement with care plan. +30 minutes. --Nicotine dependence Supportive care, smoking cessation counseling, behavior change counseling, +15 minutes. Brief History; 64 YO Female with HTN, DM, Anemia, PVD, Nicotine Dependence, positive coronavirus test recently at [facility] presented to the emergency room for further evaluation. Patient states that she has experienced subjective fever, generalized weakness, body aches, shortness of breath, nausea, multiple loose stools, lower extremity edema over the past 1 week with progressively worsening symptoms over the past 3 to 4 days prior to presentation. Patient was brought to the emergency room as a result. Here, patient found to be hypotensive with a systolic blood pressure ranging from 53-94. Patient was also hypothermic with a body temperature of 93.3 F. Patient met criteria for sepsis protocol and found to have bilateral pneumonia, metabolic acidosis, acute kidney injury. Patient admitted to telemetry due to increased risk of multisystem decompensation. Patient initiated on coronavirus protocol. Coronavirus PCR has been ordered and is pending at time of admission. Patient remained hypotensive in spite of IV fluid resuscitation therapy. Patient subsequently upgraded to IMCU. 09/03. While in the ER, patient had an ultrasound Doppler performed that showed bilateral DVT involving the iliac veins. Patient was started on heparin drip. ID consulted for COVID-19 and nephrology consulted for DIRK. Patient seen and examined at bedside this morning. She has no complaints this morning. Her hemoglobin dropped to 6.4 this morning. Patient will get transfused 1 unit of PRBCs. Later this p.m., was notified by nurse that patient is having tarry dark stool and hematemesis. Heparin drip discontinued. Patient started on PPI drip and made n.p.o. GI is has been consulted. Patient will need to have an upper endoscopy. She has bilateral lower extremity DVT and will need vascular surgery evaluation to determine if she is a candidate for IVC filter placement. 09/04. Patient seen and examined at bedside this morning. Labs reviewed showed hemoglobin 5.3. Patient will receive 2 units PRBCs. FFP also ordered. GI evaluation pending. Continue PPIs. Vascular surgeon to see to determine if patient is a candidate for IVC filter placement for DVT. 09/05. Hb stable this morning. GI on board. On PPI drip. 09/06. Gastroenterology and vascular surgery recommendations reviewed. Patient not a good candidate for IVC filter placement due to location of the clot/thrombosis. Plan is for patient to have anticoagulation on while monitoring hemoglobin. Patient's INR is more than 2 at this time so we will hold anticoagulation for now and monitor hemoglobin. Plan to initiate anticoagulation when INR is less than 2. We will preferably use heparin products as she has a high chance of bleeding. Continue to monitor hemoglobin. Hb 7.3 this a.m. 09/07. Hemoglobin 8.2 this AM. No clear signs of GI bleed. Her INR is 2.74. No need for initiation of AC for now as she INR is already therapeutic. Plan is to monitor for bleeding and if she remains stable, she will be started on anticoagulation for her bilateral DVT. Vascular surgery following-patient not a candidate for IVC catheter placement. GI recommendations appreciated 09/08: Patient is nonreactive to COVID-19 antibody, per ID order for convalescent plasma. Continue supportive care, follow clinically 09/09: Pending convalescent plasma transfusion, continue to follow inflammatory markers. Monitor H&H. Plan to start on aspirin tomorrow if INR and H&H stable 09/10: hb dropped to 6.8, transfuse one unit, discussed with GI - no plan for endoscopy now, cont to follow clinically Subjective Date of service: 09/10/20 Principal diagnosis: Iron Def Anemia Interval history: Patient seen and examined She denies any chest pain, no obvious active bleeding Hb dropped to 6.8 Discussed with RN at the bedside Vitals reviewed Objective - Exam Narrative Exam: GENERAL: Awake HEAD: No signs of head trauma. EYES: Pupils are equal. Extraocular motions intact. MOUTH: Oropharynx is normal. NECK: No adenopathy, no JVD. CHEST: Chest with diminished breath sounds bilaterally. No wheezes, rales, or rhonchi. CARDIAC: Regular rate and rhythm. S1 and S2, without murmurs, gallops, or rubs. ABDOMEN: Soft, non tender and non distended. No rebound or guarding, and no masses palpated. Bowel Sounds normal. MUSCULOSKELETAL: bilateral BKA NEUROLOGIC EXAM: Awake PSYCHIATRIC: Stable mood SKIN: No obvious lesions - Constitutional Vitals: Vital Signs - 12hr 09/10/20 09/10/20 09/10/20 12:05 16:49 21:50 Temperature 97.0 F L 98.1 F 98.1 F Pulse Rate 73 67 79 Respiratory 18 24 20 Rate Blood Pressure 155/80 180/85 181/92 O2 Sat by Pulse 90 91 92 Oximetry 09/10/20 22:29 Temperature Pulse Rate 63 Respiratory 20 Rate Blood Pressure 169/79 O2 Sat by Pulse 94 Oximetry - Labs CBC & Chem 7: 09/11/20 08:25 09/11/20 08:25 Labs: Abnormal lab results 09/10/20 09/10/20 09/10/20 Range/Units 05:12 05:12 05:12 WBC 12.1 H (4.5-11.0) K/mm3 RBC 2.66 L (3.65-5.03) M/mm3 Hgb 6.8 L (10.1-14.3) gm/dl Hct 22.0 L (30.3-42.9) % MCH 26 L (28-32) pg RDW 29.9 H (13.2-15.2) % Plt Count 110 L (140-440) K/mm3 Seg Neuts % (Manual) 97.0 H (40.0-70.0) % Lymphocytes % (Manual) 0 L (13.4-35.0) % Seg Neutrophils # Man 11.7 H (1.8-7.7) K/mm3 Lymphocytes # (Manual) 0.0 L (1.2-5.4) K/mm3 PT 16.7 H (12.2-14.9) Sec. INR 1.32 H (0.87-1.13) Sodium 153 H (137-145) mmol/L Chloride 126.8 H (98-107) mmol/L Carbon Dioxide 14 L (22-30) mmol/L BUN 69 H (7-17) mg/dL Creatinine 2.2 H (0.6-1.2) mg/dL Glucose 129 H (65-100) mg/dL POC Glucose (70-105) mg/dL Calcium 8.1 L (8.4-10.2) mg/dL Alkaline Phosphatase 180 H (35-129) units/L Total Protein 4.2 L (6.3-8.2) g/dL Albumin 2.3 L (3.9-5) g/dL Crossmatch 09/10/20 09/10/20 09/10/20 Range/Units 07:59 12:23 13:48 WBC (4.5-11.0) K/mm3 RBC (3.65-5.03) M/mm3 Hgb (10.1-14.3) gm/dl Hct (30.3-42.9) % MCH (28-32) pg RDW (13.2-15.2) % Plt Count (140-440) K/mm3 Seg Neuts % (Manual) (40.0-70.0) % Lymphocytes % (Manual) (13.4-35.0) % Seg Neutrophils # Man (1.8-7.7) K/mm3 Lymphocytes # (Manual) (1.2-5.4) K/mm3 PT (12.2-14.9) Sec. INR (0.87-1.13) Sodium (137-145) mmol/L Chloride (98-107) mmol/L Carbon Dioxide (22-30) mmol/L BUN (7-17) mg/dL Creatinine (0.6-1.2) mg/dL Glucose (65-100) mg/dL POC Glucose 162 H 148 H (70-105) mg/dL Calcium (8.4-10.2) mg/dL Alkaline Phosphatase (35-129) units/L Total Protein (6.3-8.2) g/dL Albumin (3.9-5) g/dL Crossmatch See Detail 09/10/20 09/10/20 Range/Units 17:04 21:55 WBC (4.5-11.0) K/mm3 RBC (3.65-5.03) M/mm3 Hgb (10.1-14.3) gm/dl Hct (30.3-42.9) % MCH (28-32) pg RDW (13.2-15.2) % Plt Count (140-440) K/mm3 Seg Neuts % (Manual) (40.0-70.0) % Lymphocytes % (Manual) (13.4-35.0) % Seg Neutrophils # Man (1.8-7.7) K/mm3 Lymphocytes # (Manual) (1.2-5.4) K/mm3 PT (12.2-14.9) Sec. INR (0.87-1.13) Sodium (137-145) mmol/L Chloride (98-107) mmol/L Carbon Dioxide (22-30) mmol/L BUN (7-17) mg/dL Creatinine (0.6-1.2) mg/dL Glucose (65-100) mg/dL POC Glucose 162 H 155 H (70-105) mg/dL Calcium (8.4-10.2) mg/dL Alkaline Phosphatase (35-129) units/L Total Protein (6.3-8.2) g/dL Albumin (3.9-5) g/dL Crossmatch
[2020-09-10] MEDS: INSULIN GLARGINE 100 UNITS/ML SUB-Q SCH (23:34)
[2020-09-11] MEDS: INSULIN LISPRO 100 UNIT/ML VIAL 3 mL SUB-Q SCH ×4 (08:53→22:47)
[2020-09-11] MEDS: K-LYTE 25 MEQ TABLET EFF PO SCH ×2 (09:24→22:48)
[2020-09-11] MEDS: CALCITRIOL 0.5 MCG CAP PO SCH (09:24)
[2020-09-11] MEDS: SERTRALINE 50 MG TAB PO SCH (09:24)
[2020-09-11] MEDS: ASPIRIN EC 325 MG TAB PO SCH (09:24)
[2020-09-11] MEDS: MULTIVITAMINS ,THERAPEUTIC TAB PO SCH (09:24)
[2020-09-11] MEDS: metOLazone 5 MG TAB PO SCH (09:24)
[2020-09-11] MEDS: dexAMETHasone 4 MG/ML VIAL IV SCH ×2 (09:24→14:33)
[2020-09-11] MEDS: PANTOPRAZOLE 40 MG TAB PO SCH (09:25)
[2020-09-11] MEDS: FERROUS SULFATE 325 MG TAB PO SCH (09:25)
[2020-09-11 09:59] LABS: INR 1.46 (0.87-1.13)
[2020-09-11 10:04] LABS: Hematocrit 21.7 % (30.3-42.9); Hemoglobin 7.1 gm/dl (10.1-14.3); Mean Corpuscular HGB Conc 33 % (30-34); Mean Corpuscular Volume 81 fl (79-97); Red Blood Count 2.68 M/mm3 (3.65-5.03)
[2020-09-11 10:07] LABS: Red Cell Distribution Width 31.2 % (13.2-15.2)
[2020-09-11 10:11] LABS: Calcium 8.1 mg/dL (8.4-10.2)
[2020-09-11 11:13] LABS: Anisocytosis 3+; Band Neutrophils # (Manual) 0.3 K/mm3; Basophils % (Manual) 0 % (0.0-1.8); Eosinophils % (Manual) 0 % (0.0-4.3); Hypochromasia 1+; Ovalocytes Few; Total Cells Counted 100
[2020-09-11 11:14] LABS: Dimorphic RBC Yes; Large Platelets Few; Platelet Estimate Consistent w Auto; Schistocytes Few; Tear Drop Cells Few
[2020-09-11 11:16] LABS: Platelet Count 92 K/mm3 (140-440)
--- NOTE | 2020-09-11 11:30 | Progress Note ---
Assessment and Plan 1. Acute kidney injury: DIRK secondary to combination of Vasomotor nephropathy and severe sepsis. Renal US negative for hydro. Monitor renal function. Creatinine leveled off. Prior Creatinine was 1.2 in 2014. Likely CKD stage 4. Renal prognosis is guarded. Avoid nephrotoxic agents. Meds dosage based on GFR. 2. FEN: Mild hyperkalemia, improved, monitor. Hyperchloremic Metabolic acidosis, on Pot bicarbonate, monitor. Unable to give Sod bicarb due to hypernatremia. Hypernatremia, sodium level remains high, on IV D5W 125ml/hr, monitor. Started on HCTZ. DDAVP today. Monitor lytes. 3. Nephrotic syndrome: Likely diabetic nephropathy. DEMARCUS, ANCA, complements, GBM Ab and SPEP ordered. 4. Severe sepsis, POA: Presented with hypothermia, hypotension. Likely secondary to bilateral pneumonia. 5. Severe COVID infection: Followed by ID. 6. Bilateral LE DVT, POA. 7. Microcytic anemia, POA: S/p PRBC. Monitor. 8. Thrombocytopenia, POA. 9. Acute diarrhea: Likely associated to COVID-19 infection. C. difficile test negative. Subjective: Patient was seen and examined at the bedside. Not getting IV D5W due to IV issues. Denies any new complaint. General Appearance: General appearance: well-developed, well-nourished, appears stated age, no distress, obese HEENT: ATNC, JAYCE Neck: supple Respiratory: ctab Cardiology: regular, S1S2, no murmur Gastrointestinal: normoactive bowel sounds, no tenderness, not distended Integumentary: no obvious rash Neurologic: alert, moving extremities, confusion noted Ext: trace dependent edema, b/l BKA Subjective Date of service: 09/11/20 Principal diagnosis: Iron Def Anemia Objective - Vital Signs Vital signs: Vital Signs - 12hr 09/11/20 09/11/20 09/11/20 03:35 04:52 06:36 Temperature 96.4 F L 97.4 F L 97.5 F L Pulse Rate 81 73 Respiratory 20 18 Rate Blood Pressure 181/88 Blood Pressure 159/91 [Left] O2 Sat by Pulse 96 94 Oximetry - Lab 09/11/20 08:25 09/11/20 08:25 Most recent lab results Calcium 8.1 mg/dL (8.4-10.2) L 09/11/20 08:25 Phosphorus 3.50 mg/dL (2.5-4.5) 09/06/20 06:43 Urine Creatinine 43.2 mg/dL (0.1-20.0) H 09/06/20 06:52 Urine Sodium 84 mmol/L 09/06/20 06:52 Urine Total Protein 298 mg/dL (5-11.8) H 09/06/20 06:52 Medications & Allergies - Medications Allergies/Adverse Reactions: Allergies No Known Allergies Allergy (Unverified 02/14/14 19:23) Home Medications: Home Medications Medication Instructions Recorded Confirmed Last Taken Type Aspirin [[place] Aspirin] 81 mg PO DAILY 02/14/14 02/22/14 02/14/14 11:00 History Ferrous Sulfate [Feosol 325mg] 325 mg PO DAILY 02/14/14 02/22/14 02/14/14 11:00 History Sertraline [Zoloft] 50 mg PO DAILY 02/14/14 02/22/14 02/14/14 11:00 History amLODIPine 5 mg PO DAILY 02/14/14 02/22/14 02/14/14 11:00 History hydroCHLOROthiazide 25 mg PO DAILY 02/14/14 02/22/14 02/14/14 11:00 History [Hydrochlorothiazide] lisinopriL [Zestril TAB] 10 mg PO DAILY 02/14/14 02/22/14 02/14/14 11:00 History Insulin NPH Hum/Reg Insulin Hm 100 units SQ BID 02/22/14 02/23/14 Unknown History [Humulin 70-30 Vial] Insulin Regular, Human [HumuLIN R] 7 unit SQ AC 02/22/14 02/23/14 Unknown History Active Medications: Generic Name Dose Route Start Last Admin Trade Name Freq PRN Reason Stop Dose Admin Acetaminophen 650 mg 09/02/20 00:30 09/05/20 22:50 Tylenol PO 650 mg Q6H PRN Administration Pain, Mild (1-3) Aspirin 325 mg 09/09/20 12:00 09/11/20 09:24 Ecotrin PO 325 mg QDAY JAE Administration Calcitriol 0.5 mcg 09/05/20 13:00 09/11/20 09:24 Rocaltrol PO 0.5 mcg QDAY JAE Administration Dexamethasone 6 mg 09/03/20 18:00 09/10/20 09:49 Decadron IV 09/12/20 10:01 6 mg DAILY JAE Administration Ferrous Sulfate 325 mg 09/02/20 10:00 09/11/20 09:25 Feosol PO 325 mg DAILY JAE Administration Hydralazine HCl 10 mg 09/10/20 22:23 Apresoline IV Q6H PRN Blood Pressure Hydromorphone HCl 0.25 mg 09/02/20 00:30 09/05/20 23:28 Dilaudid IV 0.25 mg Q4H PRN Administration Pain, Moderate (4-6) Sodium Chloride 500 mls @ 0 mls/hr 09/04/20 13:03 Nacl 0.9% 500 Ml IV ONCE JAE As Directed Dextrose 1,000 mls @ 125 mls/hr 09/09/20 13:00 09/09/20 23:19 D5w IV 125 mls/hr DIRECT JAE Administration Insulin Glargine 14 units 09/07/20 22:00 09/10/20 23:34 Lantus SUB-Q 14 units QHS JAE Administration Insulin Human Lispro 0 unit 09/03/20 11:30 09/11/20 08:53 Humalog SUB-Q Not Given ACHS [facility] Protocol Metolazone 10 mg 09/07/20 10:00 09/11/20 09:24 Zaroxolyn PO 10 mg QDAY JAE Administration Multivitamins 1 each 09/06/20 10:00 09/11/20 09:24 Theragran Tab PO 1 each QDAY JAE Administration Pantoprazole Sodium 40 mg 09/11/20 07:30 09/11/20 09:25 Protonix PO 40 mg QDAC JAE Administration Potassium Bicarbonate 50 meq 09/10/20 22:00 09/11/20 09:24 Klor-Con PO 50 meq BID JAE Administration Sertraline HCl 50 mg 09/02/20 10:00 09/11/20 09:24 Zoloft PO 50 mg DAILY JAE Administration Sodium Chloride 10 ml 09/02/20 10:00 09/11/20 09:25 Sodium Chloride Flush Syringe 10 Ml IV Not Given BID JAE Sodium Chloride 10 ml 09/02/20 00:30 Sodium Chloride Flush Syringe 10 Ml IV PRN PRN LINE FLUSH
[2020-09-11] MEDS: hydroCHLOROthiazide 25 MG TAB PO SCH (14:33)
--- NOTE | 2020-09-11 15:24 | Gastroenterology Progress Note ---
Assessment and Plan - Patient Problems (1) Iron deficiency anemia due to chronic blood loss Current Visit: Yes Status: Acute Plan to address problem: - Anemic x several years (per [facility] records); EGD 2014 showed severe esophagitis and mild gastritis; no colonoscopy on file. - No gross bleeding here, and tolerating protonix. Does have black liquid st ool, but on daily iron pills this is unreliable. She has no thick stool consistent with melena. - Will avoid EGD/colon while COVID positive with pneumonia, unless gross bleeding. - Continue MVI daily, and continue iron/protonix. Labs stable 09/08 - Will resume ASA tomorrow now that INR is improved (given hx of bilateral BKA, I suspect her DVTs are chronic, but will resume the ASA). (2) COVID-19 Current Visit: Yes Status: Acute (3) DVT (deep venous thrombosis) Current Visit: Yes Status: Acute Plan to address problem: - Acute versus chronic DVT of BLE; given hx of bilateral BKA, I suspect these are chronic (but US read as acute). - Patient too unstable and anemic to anticoagulate at present. Subjective Date of service: 09/11/20 Principal diagnosis: Iron Def Anemia Interval history: The patient has had a poor PO intake today, but no blood in the BMs. She is tolerating all of her medications. Objective - Constitutional Vitals: Temp Pulse Resp BP Pulse Ox 97.5 F L 73 18 159/91 94 09/11/20 06:36 09/11/20 06:36 09/11/20 06:36 09/11/20 06:36 09/11/20 06:36 General appearance: no acute distress - Respiratory Respiratory effort: normal Respiratory: bilateral: CTA - Cardiovascular Rhythm: regular Heart Sounds: Present: S1 & S2 - Gastrointestinal General gastrointestinal: Present: soft, non-tender, non-distended - Labs CBC & Chem 7: 09/11/20 08:25 09/11/20 08:25 Labs: Laboratory Results - last 24 hr 09/10/20 09/10/20 09/11/20 17:04 21:55 08:25 WBC RBC Hgb Hct MCV MCH MCHC RDW Plt Count Add Manual Diff Total Counted Seg Neuts % (Manual) Band Neutrophils % Lymphocytes % (Manual) Reactive Lymphs % (Man) Monocytes % (Manual) Eosinophils % (Manual) Basophils % (Manual) Metamyelocytes % Myelocytes % Promyelocytes % Blast Cells % Nucleated RBC % Seg Neutrophils # Man Band Neutrophils # Lymphocytes # (Manual) Abs React Lymphs (Man) Monocytes # (Manual) Eosinophils # (Manual) Basophils # (Manual) Metamyelocytes # Myelocytes # Promyelocytes # Blast Cells # WBC Morphology Hypersegmented Neuts Hyposegmented Neuts Hypogranular Neuts Smudge Cells Toxic Granulation Toxic Vacuolation Dohle Bodies Pelger-Huet Anomaly Ignacia Rods Platelet Estimate Clumped Platelets Plt Clumps, EDTA Large Platelets Giant Platelets Platelet Satelliting Plt Morphology Comment RBC Morphology Dimorphic RBCs Polychromasia Hypochromasia Poikilocytosis Anisocytosis Microcytosis Macrocytosis Spherocytes Pappenheimer Bodies Sickle Cells Target Cells Tear Drop Cells Ovalocytes Helmet Cells Horvath-Hale Bodies Moore Rings [place] Cells Bite Cells Crenated Cell Elliptocytes Acanthocytes (Spur) Rouleaux Hemoglobin C Crystals Schistocytes Malaria parasites Molina Bodies Hem Pathologist Commnt PT 18.0 H INR 1.46 H Sodium Potassium Chloride Carbon Dioxide Anion Gap BUN Creatinine Estimated GFR BUN/Creatinine Ratio Glucose POC Glucose 162 H 155 H Calcium 09/11/20 09/11/20 09/11/20 08:25 08:25 08:58 WBC 13.2 H RBC 2.68 L Hgb 7.1 L Hct 21.7 L MCV 81 MCH 26 L MCHC 33 RDW 31.2 H Plt Count 92 L Add Manual Diff Complete Total Counted 100 Seg Neuts % (Manual) 97.0 H Band Neutrophils % 2.0 Lymphocytes % (Manual) 0 L Reactive Lymphs % (Man) 0 Monocytes % (Manual) 1.0 Eosinophils % (Manual) 0 Basophils % (Manual) 0 Metamyelocytes % 0 Myelocytes % 0 Promyelocytes % 0 Blast Cells % 0 Nucleated RBC % 1.0 H Seg Neutrophils # Man 12.8 H Band Neutrophils # 0.3 Lymphocytes # (Manual) 0.0 L Abs React Lymphs (Man) 0.0 Monocytes # (Manual) 0.1 Eosinophils # (Manual) 0.0 Basophils # (Manual) 0.0 Metamyelocytes # 0.0 Myelocytes # 0.0 Promyelocytes # 0.0 Blast Cells # 0.0 WBC Morphology Not Reportable Hypersegmented Neuts Not Reportable Hyposegmented Neuts Not Reportable Hypogranular Neuts Not Reportable Smudge Cells Not Reportable Toxic Granulation Not Reportable Toxic Vacuolation Not Reportable Dohle Bodies Not Reportable Pelger-Huet Anomaly Not Reportable Ignacia Rods Not Reportable Platelet Estimate Consistent w auto Clumped Platelets Not Reportable Plt Clumps, EDTA Not Reportable Large Platelets Few Giant Platelets Not Reportable Platelet Satelliting Not Reportable Plt Morphology Comment Not Reportable RBC Morphology Not Reportable Dimorphic RBCs Yes Polychromasia Few Hypochromasia 1+ Poikilocytosis Not Reportable Anisocytosis 3+ Microcytosis Not Reportable Macrocytosis Not Reportable Spherocytes Not Reportable Pappenheimer Bodies Not Reportable Sickle Cells Not Reportable Target Cells Not Reportable Tear Drop Cells Few Ovalocytes Few Helmet Cells Not Reportable Horvath-Hale Bodies Not Reportable Moore Rings Not Reportable [place]ora Cells Not Reportable Bite Cells Not Reportable Crenated Cell Not Reportable Elliptocytes Few Acanthocytes (Spur) Not Reportable Rouleaux Not Reportable Hemoglobin C Crystals Not Reportable Schistocytes Few Malaria parasites Not Reportable Molina Bodies Not Reportable Hem Pathologist Commnt No PT INR Sodium 151 H Potassium 3.9 Chloride 126.7 H Carbon Dioxide 14 L Anion Gap 14 BUN 72 H Creatinine 2.1 H Estimated GFR 29 BUN/Creatinine Ratio 34 Glucose 83 POC Glucose 98 Calcium 8.1 L 09/11/20 13:40 WBC RBC Hgb Hct MCV MCH MCHC RDW Plt Count Add Manual Diff Total Counted Seg Neuts % (Manual) Band Neutrophils % Lymphocytes % (Manual) Reactive Lymphs % (Man) Monocytes % (Manual) Eosinophils % (Manual) Basophils % (Manual) Metamyelocytes % Myelocytes % Promyelocytes % Blast Cells % Nucleated RBC % Seg Neutrophils # Man Band Neutrophils # Lymphocytes # (Manual) Abs React Lymphs (Man) Monocytes # (Manual) Eosinophils # (Manual) Basophils # (Manual) Metamyelocytes # Myelocytes # Promyelocytes # Blast Cells # WBC Morphology Hypersegmented Neuts Hyposegmented Neuts Hypogranular Neuts Smudge Cells Toxic Granulation Toxic Vacuolation Dohle Bodies Pelger-Huet Anomaly Ignacia Rods Platelet Estimate Clumped Platelets Plt Clumps, EDTA Large Platelets Giant Platelets Platelet Satelliting Plt Morphology Comment RBC Morphology Dimorphic RBCs Polychromasia Hypochromasia Poikilocytosis Anisocytosis Microcytosis Macrocytosis Spherocytes Pappenheimer Bodies Sickle Cells Target Cells Tear Drop Cells Ovalocytes Helmet Cells Horvath-Hale Bodies Moore Rings [place]ora Cells Bite Cells Crenated Cell Elliptocytes Acanthocytes (Spur) Rouleaux Hemoglobin C Crystals Schistocytes Malaria parasites Molina Bodies Hem Pathologist Commnt PT INR Sodium Potassium Chloride Carbon Dioxide Anion Gap BUN Creatinine Estimated GFR BUN/Creatinine Ratio Glucose POC Glucose 67 L Calcium
--- NOTE | 2020-09-11 16:25 | Progress Note ---
Assessment and Plan -- Acute delirium as needed haldol --Sepsis Due to COVID-19 pneumonia Blood culture NTD ID recommendations appreciated --COVID-19 pneumonia, POA Coronavirus protocol: Coronavirus PCR is positive, contact precaution, isolation precautions, prone positioning while in bed, Not a candidate for remdesivir due to renal failure Continue dexamethasone --Acute on chronic anemia Due to chronic GI bleed and iron deficiency Hb dropped to 6.8 again today - transfuse Status post transfusion of 2 unit PRBC PPI. Continue to monitor for GI bleed As per GI, does not look like patient is having GI bleed at this time Advance diet as tolerated --Possible GI bleed, chronic Advance diet, GI on board Recommended to manage medically --Acute kidney injury (DIRK) with acute tubular necrosis (ATN) Continue to monitor renal function Nephrology following closely --Hypernatremia Continue isotonic solution Nephrology on board --Bilateral lower extremity DVT, chronic Consulted vascular surgeon for consideration of IVC filter placement. As per vascular surgery, patient is not a good candidate for IVC filter placement INR 2.74. GI recommended to treat with aspirin only --Diabetes Current Visit: Yes Status: Acute Plan to address problem: Sliding-scale insulin therapy, Accu-Chek, hypoglycemia protocol, consistent carbohydrate diet. --DVT prophylaxis, Anticoagulation --Advance care planning Disease education conducted, prognosis discussed, patient is full code, care plan discussed, patient knowledges understanding and agreement with care plan. +30 minutes. --Nicotine dependence Supportive care, smoking cessation counseling, behavior change counseling, +15 minutes. Brief History; 64 YO Female with HTN, DM, Anemia, PVD, Nicotine Dependence, positive coronavirus test recently at [facility] presented to the emergency room for further evaluation. Patient states that she has experienced subjective fever, generalized weakness, body aches, shortness of breath, nausea, multiple loose stools, lower extremity edema over the past 1 week with progressively worsening symptoms over the past 3 to 4 days prior to presentation. Patient was brought to the emergency room as a result. Here, patient found to be hypotensive with a systolic blood pressure ranging from 53-94. Patient was also hypothermic with a body temperature of 93.3 F. Patient met criteria for sepsis protocol and found to have bilateral pneumonia, metabolic acidosis, acute kidney injury. Patient admitted to telemetry due to increased risk of multisystem decompensation. Patient initiated on coronavirus protocol. Coronavirus PCR has been ordered and is pending at time of admission. Patient remained hypotensive in spite of IV fluid resuscitation therapy. Patient subsequently upgraded to IMCU. 09/03. While in the ER, patient had an ultrasound Doppler performed that showed bilateral DVT involving the iliac veins. Patient was started on heparin drip. ID consulted for COVID-19 and nephrology consulted for DIRK. Patient seen and examined at bedside this morning. She has no complaints this morning. Her hemoglobin dropped to 6.4 this morning. Patient will get transfused 1 unit of PRBCs. Later this p.m., was notified by nurse that patient is having tarry dark stool and hematemesis. Heparin drip discontinued. Patient started on PPI drip and made n.p.o. GI is has been consulted. Patient will need to have an upper endoscopy. She has bilateral lower extremity DVT and will need vascular surgery evaluation to determine if she is a candidate for IVC filter placement. 09/04. Patient seen and examined at bedside this morning. Labs reviewed showed hemoglobin 5.3. Patient will receive 2 units PRBCs. FFP also ordered. GI evaluation pending. Continue PPIs. Vascular surgeon to see to determine if patient is a candidate for IVC filter placement for DVT. 09/05. Hb stable this morning. GI on board. On PPI drip. 09/06. Gastroenterology and vascular surgery recommendations reviewed. Patient not a good candidate for IVC filter placement due to location of the clot/thrombosis. Plan is for patient to have anticoagulation on while monitoring hemoglobin. Patient's INR is more than 2 at this time so we will hold anticoagulation for now and monitor hemoglobin. Plan to initiate anticoagulation when INR is less than 2. We will preferably use heparin products as she has a high chance of bleeding. Continue to monitor hemoglobin. Hb 7.3 this a.m. 09/07. Hemoglobin 8.2 this AM. No clear signs of GI bleed. Her INR is 2.74. No need for initiation of AC for now as she INR is already therapeutic. Plan is to monitor for bleeding and if she remains stable, she will be started on anticoagulation for her bilateral DVT. Vascular surgery following-patient not a candidate for IVC catheter placement. GI recommendations appreciated 09/08: Patient is nonreactive to COVID-19 antibody, per ID order for co nvalescent plasma. Continue supportive care, follow clinically 09/09: Pending convalescent plasma transfusion, continue to follow inflammatory markers. Monitor H&H. Plan to start on aspirin tomorrow if INR and H&H stable 09/10: hb dropped to 6.8, transfuse one unit, discussed with GI - no plan for endoscopy now, cont to follow clinically 09/11: patient didn't get transfusion yesterday. became very agitated today, ordered as needed haldol, cont iv fluid. monitor clinically Subjective Date of service: 09/11/20 Principal diagnosis: Iron Def Anemia Interval history: Patient seen and examined very agitated today, refusing to eat, no obvious active bleeding Discussed with RN at the bedside Vitals reviewed Objective - Exam Narrative Exam: GENERAL: Awake, agitated HEAD: No signs of head trauma. EYES: Pupils are equal. Extraocular motions intact. MOUTH: Oropharynx is normal. NECK: No adenopathy, no JVD. CHEST: Chest with diminished breath sounds bilaterally. No wheezes, rales, or rhonchi. CARDIAC: Regular rate and rhythm. S1 and S2, without murmurs, gallops, or rubs. ABDOMEN: Soft, non tender and non distended. No rebound or guarding, and no masses palpated. Bowel Sounds normal. MUSCULOSKELETAL: bilateral BKA NEUROLOGIC EXAM: Awake PSYCHIATRIC: Stable mood SKIN: No obvious lesions - Constitutional Vitals: Vital Signs - 12hr 09/11/20 09/11/20 04:52 06:36 Temperature 97.4 F L 97.5 F L Pulse Rate 81 73 Respiratory 20 18 Rate Blood Pressure 181/88 Blood Pressure 159/91 [Left] O2 Sat by Pulse 96 94 Oximetry - Labs CBC & Chem 7: 09/12/20 06:16 09/12/20 06:16 Labs: Abnormal lab results 09/10/20 09/10/20 09/11/20 Range/Units 17:04 21:55 08:25 WBC (4.5-11.0) K/mm3 RBC (3.65-5.03) M/mm3 Hgb (10.1-14.3) gm/dl Hct (30.3-42.9) % MCH (28-32) pg RDW (13.2-15.2) % Plt Count (140-440) K/mm3 Seg Neuts % (Manual) (40.0-70.0) % Lymphocytes % (Manual) (13.4-35.0) % Nucleated RBC % (0.0-0.9) % Seg Neutrophils # Man (1.8-7.7) K/mm3 Lymphocytes # (Manual) (1.2-5.4) K/mm3 PT 18.0 H (12.2-14.9) Sec. INR 1.46 H (0.87-1.13) Sodium (137-145) mmol/L Chloride (98-107) mmol/L Carbon Dioxide (22-30) mmol/L BUN (7-17) mg/dL Creatinine (0.6-1.2) mg/dL POC Glucose 162 H 155 H (70-105) mg/dL Calcium (8.4-10.2) mg/dL 09/11/20 09/11/20 09/11/20 Range/Units 08:25 08:25 13:40 WBC 13.2 H (4.5-11.0) K/mm3 RBC 2.68 L (3.65-5.03) M/mm3 Hgb 7.1 L (10.1-14.3) gm/dl Hct 21.7 L (30.3-42.9) % MCH 26 L (28-32) pg RDW 31.2 H (13.2-15.2) % Plt Count 92 L (140-440) K/mm3 Seg Neuts % (Manual) 97.0 H (40.0-70.0) % Lymphocytes % (Manual) 0 L (13.4-35.0) % Nucleated RBC % 1.0 H (0.0-0.9) % Seg Neutrophils # Man 12.8 H (1.8-7.7) K/mm3 Lymphocytes # (Manual) 0.0 L (1.2-5.4) K/mm3 PT (12.2-14.9) Sec. INR (0.87-1.13) Sodium 151 H (137-145) mmol/L Chloride 126.7 H (98-107) mmol/L Carbon Dioxide 14 L (22-30) mmol/L BUN 72 H (7-17) mg/dL Creatinine 2.1 H (0.6-1.2) mg/dL POC Glucose 67 L (70-105) mg/dL Calcium 8.1 L (8.4-10.2) mg/dL
[2020-09-11] MEDS ORDERED: DESMOPRESSIN 0.1 MG TAB PO ONE (16:30)
--- NOTE | 2020-09-11 16:40 | Progress Note ---
Assessment and Plan Cultures: Blood culture no growth today. SARS CoV2 PCR positive [facility] 08/24/2020. Assessment: 64 years old female with history of diabetes mellitus, hypertension, peripheral vascular disease status post bilateral BKA, chronic kidney disease, tobacco use, tested positive for COVID-19 outpatient the day before admission, admitted on 09/01/2020 due to a week history of cough, generalized weakness, body aches, subjective fever, shortness of breath, nausea, multiple diarrheic episodes, patient recently admitted to [facility] from 08/23/2020 until 08/27/2020 for symptomatic anemia, hemoglobin at 4.5, refused further work-up and tested positive for COVID-19, asymptomatic: #Severe sepsis: Hypothermia and hypotension improving, likely due to bilateral pneumonia +/-severe anemia. #Severe COVID pneumonia: Patient tested positive at [facility] on 08/24/2020. Initial ferritin normal, D-dimer elevated 2.4. D-dimer here 08/10/1976. Ferritin slightly elevated 313. Chest x-ray shows extensive bilateral airspace disease. Patient is currently on room air. There may be a component of volume overload. Echocardiogram at [facility] EF 43%. BNP 70,000. Procalcitonin normal, hence I doubt bacterial component. #Elevated LFTs: from COVID #Hypoxia: Patient remains on room air sats 91% #DIRK on CKD: from COVID #Acute thrombocytopenia: Platelets 08/27/2020 were 146. Likely due to COVID-19 infection. #Acute diarrhea: Multiple episodes. Likely associated to COVID-19 infection. C. difficile toxin PCR negative. #Bilateral lower extremity DVT: Anticoagulation on hold due to severe anemia #Severe anemia: Patient refused GI bleed work-up at [facility], on PPI Recommendations: -Continue Solu-Medrol x 10 days -No indication for remdesivir as pt is symptomatic for over 10 days so no benefit -Monitor inflammatory markers - ferritin, Ddimer, CRP, LDH -monitor O2 sats will sign off please call us Beba Parker MD Infectious Diseases [facility] ([facility] M [phone] O [phone] Subjective Date of service: 09/11/20 Principal diagnosis: COVID Interval history: Remains on 3 L, no fever Objective - Exam Narrative Exam: Physical Exam: reviewed ED and hospitalist notes, limited due to conservation of PPE and decrease risk of transmission. General appearance: limited due to conservation of PPE Eyes: limited due to conservation of PPE HENT: Atraumatic; limited due to conservation of PPE Lungs: limited due to conservation of PPE CV: limited due to conservation of PPE Abdomen: limited due to conservation of PPE Extremities: limited due to conservation of PPE Skin: limited due to conservation of PPE Psych: limited due to conservation of PPE Neuro: limited due to conservation of PPE - Constitutional Vitals: Vital Signs Temp Pulse Resp BP Pulse Ox 97.5 F L 73 18 159/91 94 09/11/20 06:36 09/11/20 06:36 09/11/20 06:36 09/11/20 06:36 09/11/20 06:36 Temperature -Last 24 Hours Temperature 97.5 F Temperature 97.4 F Temperature 96.4 F Temperature 94.3 F Temperature 98.1 F Temperature 98.1 F - Labs CBC & Chem 7: 09/11/20 08:25 09/11/20 08:25 Labs: Abnormal lab results 09/10/20 09/10/20 09/11/20 Range/Units 17:04 21:55 08:25 WBC (4.5-11.0) K/mm3 RBC (3.65-5.03) M/mm3 Hgb (10.1-14.3) gm/dl Hct (30.3-42.9) % MCH (28-32) pg RDW (13.2-15.2) % Plt Count (140-440) K/mm3 Seg Neuts % (Manual) (40.0-70.0) % Lymphocytes % (Manual) (13.4-35.0) % Nucleated RBC % (0.0-0.9) % Seg Neutrophils # Man (1.8-7.7) K/mm3 Lymphocytes # (Manual) (1.2-5.4) K/mm3 PT 18.0 H (12.2-14.9) Sec. INR 1.46 H (0.87-1.13) Sodium (137-145) mmol/L Chloride (98-107) mmol/L Carbon Dioxide (22-30) mmol/L BUN (7-17) mg/dL Creatinine (0.6-1.2) mg/dL POC Glucose 162 H 155 H (70-105) mg/dL Calcium (8.4-10.2) mg/dL 09/11/20 09/11/20 09/11/20 Range/Units 08:25 08:25 13:40 WBC 13.2 H (4.5-11.0) K/mm3 RBC 2.68 L (3.65-5.03) M/mm3 Hgb 7.1 L (10.1-14.3) gm/dl Hct 21.7 L (30.3-42.9) % MCH 26 L (28-32) pg RDW 31.2 H (13.2-15.2) % Plt Count 92 L (140-440) K/mm3 Seg Neuts % (Manual) 97.0 H (40.0-70.0) % Lymphocytes % (Manual) 0 L (13.4-35.0) % Nucleated RBC % 1.0 H (0.0-0.9) % Seg Neutrophils # Man 12.8 H (1.8-7.7) K/mm3 Lymphocytes # (Manual) 0.0 L (1.2-5.4) K/mm3 PT (12.2-14.9) Sec. INR (0.87-1.13) Sodium 151 H (137-145) mmol/L Chloride 126.7 H (98-107) mmol/L Carbon Dioxide 14 L (22-30) mmol/L BUN 72 H (7-17) mg/dL Creatinine 2.1 H (0.6-1.2) mg/dL POC Glucose 67 L (70-105) mg/dL Calcium 8.1 L (8.4-10.2) mg/dL
[2020-09-11] MEDS ORDERED: DEXTROSE 50% IN WATER (25GM) 50 ML SYRINGE IV ONE ×3 (18:13→20:15)
[2020-09-11] MEDS: DEXTROSE 5% IN WATER 1,000 ML IV SCH (18:20)
[2020-09-11] MEDS ORDERED: HALOPERIDOL LACTATE 5 MG/1 ML INJ IM PRN (19:10)
[2020-09-11] MEDS: INSULIN GLARGINE 100 UNITS/ML SUB-Q SCH (23:50)
[2020-09-12 06:32] LABS: Hematocrit 22.3 % (30.3-42.9); Hemoglobin 6.7 gm/dl (10.1-14.3); Mean Corpuscular HGB Conc 30 % (30-34); Mean Corpuscular Volume 87 fl (79-97); Red Blood Count 2.55 M/mm3 (3.65-5.03)
[2020-09-12 06:33] LABS: Platelet Count 104 K/mm3 (140-440); Red Cell Distribution Width 31.8 % (13.2-15.2)
[2020-09-12 06:41] LABS: INR 1.34 (0.87-1.13)
[2020-09-12 06:44] LABS: Calcium 8.1 mg/dL (8.4-10.2)
[2020-09-12] MEDS: INSULIN GLARGINE 100 UNITS/ML SUB-Q SCH (07:03)
[2020-09-12] MEDS: DEXTROSE 5% IN WATER 1,000 ML IV SCH ×2 (07:10→21:53)
[2020-09-12] MEDS: INSULIN LISPRO 100 UNIT/ML VIAL 3 mL SUB-Q SCH ×3 (09:18→18:20)
[2020-09-12 09:35] LABS: Band Neutrophils # (Manual) 0.9 K/mm3; Basophils % (Manual) 0 % (0.0-1.8); Eosinophils % (Manual) 0 % (0.0-4.3); Monocytes % (Manual) 0 % (0.0-7.3); Total Cells Counted 100
[2020-09-12 09:36] LABS: Anisocytosis 3+; Hypochromasia 1+; Macrocytosis Few; Platelet Estimate Consistent w Auto; Poikilocytosis 1+; Schistocytes Few
[2020-09-12] MEDS: hydroCHLOROthiazide 25 MG TAB PO SCH (10:36)
[2020-09-12] MEDS: FERROUS SULFATE 325 MG TAB PO SCH (10:36)
[2020-09-12] MEDS: K-LYTE 25 MEQ TABLET EFF PO SCH ×2 (10:36→21:54)
[2020-09-12] MEDS: CALCITRIOL 0.5 MCG CAP PO SCH (10:37)
[2020-09-12] MEDS: metOLazone 5 MG TAB PO SCH (10:37)
[2020-09-12] MEDS: dexAMETHasone 4 MG/ML VIAL IV SCH (10:37)
[2020-09-12] MEDS: ASPIRIN EC 325 MG TAB PO SCH (10:37)
[2020-09-12] MEDS: MULTIVITAMINS ,THERAPEUTIC TAB PO SCH (10:37)
[2020-09-12] MEDS: DESMOPRESSIN 0.1 MG TAB PO SCH ×2 (10:37→21:54)
[2020-09-12] MEDS: SERTRALINE 50 MG TAB PO SCH (10:37)
[2020-09-12] MEDS: PANTOPRAZOLE 40 MG TAB PO SCH (10:44)
--- NOTE | 2020-09-12 11:09 | Progress Note ---
Assessment and Plan 1. Acute kidney injury: DIRK secondary to combination of Vasomotor nephropathy and severe sepsis. Renal US negative for hydro. Monitor renal function. Creatinine level is slightly better. Prior Creatinine was 1.2 in 2014. Likely CKD stage 4. Renal prognosis is guarded. Avoid nephrotoxic agents. Meds dosage based on GFR. 2. FEN: Mild hyperkalemia, improved, monitor. Hyperchloremic Metabolic acidosis, on Pot bicarbonate, monitor. Unable to give Sod bicarb due to hypernatremia. Hypernatremia, sodium level is slightly better, on IV D5W 125ml/hr, monitor. On HCTZ, Metolazone and DDAVP. Monitor lytes. 3. Nephrotic syndrome: Likely diabetic nephropathy. DEMARCUS, ANCA, complements, GBM Ab and SPEP ordered. 4. Severe sepsis, POA: Presented with hypothermia, hypotension. Likely secondary to bilateral pneumonia. 5. Severe COVID infection: Followed by ID. 6. Bilateral LE DVT, POA. 7. Microcytic anemia, POA: S/p PRBC. Monitor. 8. Thrombocytopenia, POA. 9. Acute diarrhea: Likely associated to COVID-19 infection. C. difficile test negative. Subjective: Patient was seen and examined at the bedside. Denies any new complaint. General Appearance: General appearance: well-developed, well-nourished, appears stated age, no distress, obese, on restrains HEENT: ATNC, JAYCE Neck: supple Respiratory: ctab Cardiology: regular, S1S2, no murmur Gastrointestinal: normoactive bowel sounds, no tenderness, not distended Integumentary: no obvious rash Neurologic: alert, moving extremities, confusion noted Ext: no edema, b/l BKA Subjective Date of service: 09/12/20 Principal diagnosis: Iron Def Anemia Objective - Vital Signs Vital signs: Vital Signs - 12hr 09/12/20 09/12/20 04:20 10:59 Temperature 97.6 F 93.8 F L Pulse Rate 78 82 Respiratory 20 24 Rate Blood Pressure 156/82 155/78 O2 Sat by Pulse 96 96 Oximetry - Lab 09/12/20 06:16 09/12/20 06:16 Most recent lab results Calcium 8.1 mg/dL (8.4-10.2) L 09/12/20 06:16 Phosphorus 3.50 mg/dL (2.5-4.5) 09/06/20 06:43 Urine Creatinine 43.2 mg/dL (0.1-20.0) H 09/06/20 06:52 Urine Sodium 84 mmol/L 09/06/20 06:52 Urine Total Protein 298 mg/dL (5-11.8) H 09/06/20 06:52 Medications & Allergies - Medications Allergies/Adverse Reactions: Allergies No Known Allergies Allergy (Unverified 02/14/14 19:23) Home Medications: Home Medications Medication Instructions Recorded Confirmed Last Taken Type Aspirin [[place] Aspirin] 81 mg PO DAILY 02/14/14 02/22/14 02/14/14 11:00 History Ferrous Sulfate [Feosol 325mg] 325 mg PO DAILY 02/14/14 02/22/14 02/14/14 11:00 History Sertraline [Zoloft] 50 mg PO DAILY 02/14/14 02/22/14 02/14/14 11:00 History amLODIPine 5 mg PO DAILY 02/14/14 02/22/14 02/14/14 11:00 History hydroCHLOROthiazide 25 mg PO DAILY 02/14/14 02/22/14 02/14/14 11:00 History [Hydrochlorothiazide] lisinopriL [Zestril TAB] 10 mg PO DAILY 02/14/14 02/22/14 02/14/14 11:00 History Insulin NPH Hum/Reg Insulin Hm 100 units SQ BID 02/22/14 02/23/14 Unknown History [Humulin 70-30 Vial] Insulin Regular, Human [HumuLIN R] 7 unit SQ AC 02/22/14 02/23/14 Unknown History Active Medications: Generic Name Dose Route Start Last Admin Trade Name Freq PRN Reason Stop Dose Admin Acetaminophen 650 mg 09/02/20 00:30 09/05/20 22:50 Tylenol PO 650 mg Q6H PRN Administration Pain, Mild (1-3) Aspirin 325 mg 09/09/20 12:00 09/12/20 10:37 Ecotrin PO 325 mg QDAY JAE Administration Calcitriol 0.5 mcg 09/05/20 13:00 09/12/20 10:37 Rocaltrol PO 0.5 mcg QDAY JAE Administration Desmopressin Acetate 0.1 mg 09/12/20 10:00 09/12/20 10:37 Ddavp PO 0.1 mg BID JAE Administration Dextrose 50 ml 09/11/20 19:09 D50w (25gm) Syringe IV Q30MIN PRN Hypoglycemia Protocol Ferrous Sulfate 325 mg 09/02/20 10:00 09/12/20 10:36 Feosol PO 325 mg DAILY JAE Administration Haloperidol Lactate 5 mg 09/11/20 19:10 Haldol IM Q6H PRN Agitation Hydralazine HCl 10 mg 09/10/20 22:23 Apresoline IV Q6H PRN Blood Pressure Hydrochlorothiazide 25 mg 09/11/20 12:00 09/12/20 10:36 Hctz PO 25 mg QDAY JAE Administration Hydromorphone HCl 0.25 mg 09/02/20 00:30 09/05/20 23:28 Dilaudid IV 0.25 mg Q4H PRN Administration Pain, Moderate (4-6) Sodium Chloride 500 mls @ 0 mls/hr 09/04/20 13:03 Nacl 0.9% 500 Ml IV ONCE JAE As Directed Dextrose 1,000 mls @ 125 mls/hr 09/09/20 13:00 09/12/20 07:10 D5w IV 125 mls/hr DIRECT JAE Administration Insulin Glargine 14 units 09/07/20 22:00 09/12/20 07:03 Lantus SUB-Q Not Given QHS JAE Insulin Human Lispro 0 unit 09/03/20 11:30 09/12/20 09:18 Humalog SUB-Q Not Given [facility] Protocol Metolazone 10 mg 09/07/20 10:00 09/12/20 10:37 Zaroxolyn PO 10 mg QDAY JAE Administration Multivitamins 1 each 09/06/20 10:00 09/12/20 10:37 Theragran Tab PO 1 each QDAY JAE Administration Pantoprazole Sodium 40 mg 09/11/20 07:30 09/12/20 10:44 Protonix PO 40 mg QDAC JAE Administration Potassium Bicarbonate 50 meq 09/10/20 22:00 09/12/20 10:36 Klor-Con PO 50 meq BID JAE Administration Sertraline HCl 50 mg 09/02/20 10:00 09/12/20 10:37 Zoloft PO 50 mg DAILY JAE Administration Sodium Chloride 10 ml 09/02/20 10:00 09/12/20 10:38 Sodium Chloride Flush Syringe 10 Ml IV Not Given BID JAE Sodium Chloride 10 ml 09/02/20 00:30 Sodium Chloride Flush Syringe 10 Ml IV PRN PRN LINE FLUSH
--- NOTE | 2020-09-12 13:17 | Progress Note ---
Assessment and Plan -- Acute delirium/acute metabolic encephalopathy Etiology unknown, as needed haldol, placed on restraint --Sepsis Due to COVID-19 pneumonia Blood culture NTD ID recommendations appreciated --COVID-19 pneumonia, POA Coronavirus protocol: Coronavirus PCR is positive, contact precaution, isolation precautions, prone positioning while in bed, Not a candidate for remdesivir due to renal failure Continue dexamethasone s/p convalescent plasma --Acute on chronic anemia Due to chronic GI bleed and iron deficiency Status post transfusion of 2 unit PRBC, pending another unit PPI. Continue to monitor for GI bleed As per GI, does not look like patient is having GI bleed at this time Advance diet as tolerated --Possible GI bleed, chronic Advance diet, GI on board Recommended to manage medically --Acute kidney injury (DIRK) with acute tubular necrosis (ATN) Continue to monitor renal function Nephrology following closely --Hypernatremia Continue isotonic solution Nephrology on board --Bilateral lower extremity DVT, chronic Consulted vascular surgeon for consideration of IVC filter placement. As per vascular surgery, patient is not a good candidate for IVC filter placement INR 2.74. GI recommended to treat with aspirin only --Diabetes Current Visit: Yes Status: Acute Plan to address problem: Sliding-scale insulin therapy, Accu-Chek, hypoglycemia protocol, consistent carbohydrate diet. --DVT prophylaxis, Anticoagulation --Advance care planning Disease education conducted, prognosis discussed, patient is full code, care plan discussed, patient knowledges understanding and agreement with care plan. +30 minutes. --Nicotine dependence Supportive care, smoking cessation counseling, behavior change counseling, +15 minutes. Brief History; 64 YO Female with HTN, DM, Anemia, PVD, Nicotine Dependence, positive coronavirus test recently at [place] presented to the emergency room for further evaluation. Patient states that she has experienced subjective fever, generalized weakness, body aches, shortness of breath, nausea, multiple loose stools, lower extremity edema over the past 1 week with progressively worsening symptoms over the past 3 to 4 days prior to presentation. Patient was brought to the emergency room as a result. Here, patient found to be hypotensive with a systolic blood pressure ranging from 53-94. Patient was also hypothermic with a body temperature of 93.3 F. Patient met criteria for sepsis protocol and found to have bilateral pneumonia, metabolic acidosis, acute kidney injury. Patient admitted to telemetry due to increased risk of multisystem decompensation. Patient initiated on coronavirus protocol. Coronavirus PCR has been ordered and is pending at time of admission. Patient remained hypotensive in spite of IV fluid resuscitation therapy. Patient subsequently upgraded to IMCU. 09/03. While in the ER, patient had an ultrasound Doppler performed that showed bilateral DVT involving the iliac veins. Patient was started on heparin drip. ID consulted for COVID-19 and nephrology consulted for DIRK. Patient seen and examined at bedside this morning. She has no complaints this morning. Her hemoglobin dropped to 6.4 this morning. Patient will get transfused 1 unit of PRBCs. Later this p.m., was notified by nurse that patient is having tarry dark stool and hematemesis. Heparin drip discontinued. Patient started on PPI drip and made n.p.o. GI is has been consulted. Patient will need to have an upper endoscopy. She has bilateral lower extremity DVT and will need vascular surgery evaluation to determine if she is a candidate for IVC filter placement. 09/04. Patient seen and examined at bedside this morning. Labs reviewed showed hemoglobin 5.3. Patient will receive 2 units PRBCs. FFP also ordered. GI evaluation pending. Continue PPIs. Vascular surgeon to see to determine if patient is a candidate for IVC filter placement for DVT. 09/05. Hb stable this morning. GI on board. On PPI drip. 09/06. Gastroenterology and vascular surgery recommendations reviewed. Patient not a good candidate for IVC filter placement due to location of the clot/thrombosis. Plan is for patient to have anticoagulation on while monitoring hemoglobin. Patient's INR is more than 2 at this time so we will hold anticoagulation for now and monitor hemoglobin. Plan to initiate anticoagulation when INR is less than 2. We will preferably use heparin products as she has a high chance of bleeding. Continue to monitor hemoglobin. Hb 7.3 this a.m. 09/07. Hemoglobin 8.2 this AM. No clear signs of GI bleed. Her INR is 2.74. No need for initiation of AC for now as she INR is already therapeutic. Plan is to monitor for bleeding and if she remains stable, she will be started on anticoagulation for her bilateral DVT. Vascular surgery following-patient not a candidate for IVC catheter placement. GI recommendations appreciated 09/08: Patient is nonreactive to COVID-19 antibody, per ID order for convalescent plasma. Continue supportive care, follow clinically 09/09: Pending convalescent plasma transfusion, continue to follow inflammatory markers. Monitor H&H. Plan to start on aspirin tomorrow if INR and H&H stable 09/10: hb dropped to 6.8, transfuse one unit, discussed with GI - no plan for endoscopy now, cont to follow clinically 09/11: patient didn't get transfusion yesterday. became very agitated today, ord ered as needed haldol, cont iv fluid. monitor clinically 09/12: placed on restrain o/n. cont supportive care, lost IV line - ordered for midline. pending PRBC transfusion Subjective Date of service: 09/12/20 Principal diagnosis: Iron Def Anemia Interval history: Patient seen and examined remains agitated today, refusing to eat, no obvious active bleeding Discussed with RN at the bedside Vitals reviewed Objective - Exam Narrative Exam: GENERAL: Awake, agitated HEAD: No signs of head trauma. EYES: Pupils are equal. Extraocular motions intact. MOUTH: Oropharynx is normal. NECK: No adenopathy, no JVD. CHEST: Chest with diminished breath sounds bilaterally. No wheezes, rales, or rhonchi. CARDIAC: Regular rate and rhythm. S1 and S2, without murmurs, gallops, or rubs. ABDOMEN: Soft, non tender and non distended. No rebound or guarding, and no masses palpated. Bowel Sounds normal. MUSCULOSKELETAL: bilateral BKA NEUROLOGIC EXAM: Awake PSYCHIATRIC: Stable mood SKIN: No obvious lesions - Constitutional Vitals: Vital Signs - 12hr 09/12/20 09/12/20 04:20 10:59 Temperature 97.6 F 93.8 F L Pulse Rate 78 82 Respiratory 20 24 Rate Blood Pressure 156/82 155/78 O2 Sat by Pulse 96 96 Oximetry - Labs CBC & Chem 7: 09/13/20 10:07 09/13/20 07:26 Labs: Abnormal lab results 09/11/20 09/11/20 09/11/20 Range/Units 13:40 17:50 19:24 WBC (4.5-11.0) K/mm3 RBC (3.65-5.03) M/mm3 Hgb (10.1-14.3) gm/dl Hct (30.3-42.9) % MCH (28-32) pg RDW (13.2-15.2) % Plt Count (140-440) K/mm3 Seg Neuts % (Manual) (40.0-70.0) % Lymphocytes % (Manual) (13.4-35.0) % Nucleated RBC % (0.0-0.9) % Seg Neutrophils # Man (1.8-7.7) K/mm3 Lymphocytes # (Manual) (1.2-5.4) K/mm3 PT (12.2-14.9) Sec. INR (0.87-1.13) Sodium (137-145) mmol/L Chloride (98-107) mmol/L Carbon Dioxide (22-30) mmol/L BUN (7-17) mg/dL Creatinine (0.6-1.2) mg/dL Glucose (65-100) mg/dL POC Glucose 67 L 52 L 193 H (70-105) mg/dL Calcium (8.4-10.2) mg/dL 09/11/20 09/12/20 09/12/20 Range/Units 21:24 06:16 06:16 WBC (4.5-11.0) K/mm3 RBC (3.65-5.03) M/mm3 Hgb (10.1-14.3) gm/dl Hct (30.3-42.9) % MCH (28-32) pg RDW (13.2-15.2) % Plt Count (140-440) K/mm3 Seg Neuts % (Manual) (40.0-70.0) % Lymphocytes % (Manual) (13.4-35.0) % Nucleated RBC % (0.0-0.9) % Seg Neutrophils # Man (1.8-7.7) K/mm3 Lymphocytes # (Manual) (1.2-5.4) K/mm3 PT 16.7 H (12.2-14.9) Sec. INR 1.34 H (0.87-1.13) Sodium 149 H (137-145) mmol/L Chloride 124.7 H (98-107) mmol/L Carbon Dioxide 15 L (22-30) mmol/L BUN 67 H (7-17) mg/dL Creatinine 2.0 H (0.6-1.2) mg/dL Glucose 134 H (65-100) mg/dL POC Glucose 184 H (70-105) mg/dL Calcium 8.1 L (8.4-10.2) mg/dL 09/12/20 09/12/20 09/12/20 Range/Units 06:16 08:06 11:11 WBC 17.4 H (4.5-11.0) K/mm3 RBC 2.55 L (3.65-5.03) M/mm3 Hgb 6.7 L (10.1-14.3) gm/dl Hct 22.3 L (30.3-42.9) % MCH 26 L (28-32) pg RDW 31.8 H (13.2-15.2) % Plt Count 104 L (140-440) K/mm3 Seg Neuts % (Manual) 94.0 H (40.0-70.0) % Lymphocytes % (Manual) 1.0 L (13.4-35.0) % Nucleated RBC % 2.0 H (0.0-0.9) % Seg Neutrophils # Man 16.4 H (1.8-7.7) K/mm3 Lymphocytes # (Manual) 0.2 L (1.2-5.4) K/mm3 PT (12.2-14.9) Sec. INR (0.87-1.13) Sodium (137-145) mmol/L Chloride (98-107) mmol/L Carbon Dioxide (22-30) mmol/L BUN (7-17) mg/dL Creatinine (0.6-1.2) mg/dL Glucose (65-100) mg/dL POC Glucose 127 H 128 H (70-105) mg/dL Calcium (8.4-10.2) mg/dL
--- NOTE | 2020-09-12 17:34 | Gastroenterology Progress Note ---
Assessment and Plan # Iron deficiency anemia - Anemic x several years (per [facility] records); EGD 2015 showed severe esophagitis and mild gastritis; no colonoscopy on file. - No gross GI bleeding. Rectal tube with green stool. - Will avoid EGD/colon while COVID positive with pneumonia, unless gross bleeding. - Continue MVI daily, and continue iron/protonix. - resume ASA. # COVID-19 - b/l pneumonia # DVT - Acute versus chronic DVT of BLE; given hx of bilateral BKA, possible chronic. - Patient too unstable and anemic to anticoagulate at present. - resume ASA. - Patient Problems (1) COVID-19 Current Visit: Yes Status: Acute (2) Iron deficiency anemia due to chronic blood loss Current Visit: Yes Status: Acute Subjective Date of service: 09/12/20 Principal diagnosis: Iron Def Anemia Interval history: No acute events. Continues to be agitated at times. Not eating much. No blood s een in the rectal tube. Objective - Constitutional Vitals: Temp Pulse Resp BP Pulse Ox 93.8 F L 82 24 155/78 96 09/12/20 10:59 09/12/20 10:59 09/12/20 10:59 09/12/20 10:59 09/12/20 10:59 General appearance: no acute distress, obese - EENT ENT: hearing intact - Respiratory Respiratory effort: normal - Cardiovascular Rhythm: regular - Gastrointestinal General gastrointestinal: Present: non-distended - Psychiatric Psychiatric: other (agitated) - Labs CBC & Chem 7: 09/12/20 06:16 09/12/20 06:16 Labs: Laboratory Results - last 24 hr 09/11/20 09/11/20 09/11/20 17:50 19:24 21:24 WBC RBC Hgb Hct MCV MCH MCHC RDW Plt Count Add Manual Diff Total Counted Seg Neutrophils % Seg Neuts % (Manual) Band Neutrophils % Lymphocytes % (Manual) Reactive Lymphs % (Man) Monocytes % (Manual) Eosinophils % (Manual) Basophils % (Manual) Metamyelocytes % Myelocytes % Promyelocytes % Blast Cells % Nucleated RBC % Seg Neutrophils # Man Band Neutrophils # Lymphocytes # (Manual) Abs React Lymphs (Man) Monocytes # (Manual) Eosinophils # (Manual) Basophils # (Manual) Metamyelocytes # Myelocytes # Promyelocytes # Blast Cells # WBC Morphology Hypersegmented Neuts Hyposegmented Neuts Hypogranular Neuts Smudge Cells Toxic Granulation Toxic Vacuolation Dohle Bodies Pelger-Huet Anomaly Ignacia Rods Platelet Estimate Clumped Platelets Plt Clumps, EDTA Large Platelets Giant Platelets Platelet Satelliting Plt Morphology Comment RBC Morphology Dimorphic RBCs Polychromasia Hypochromasia Poikilocytosis Anisocytosis Microcytosis Macrocytosis Spherocytes Pappenheimer Bodies Sickle Cells Target Cells Tear Drop Cells Ovalocytes Helmet Cells Horvath-Richmond Bodies [place] Rings Flora Cells Bite Cells Crenated Cell Elliptocytes Acanthocytes (Spur) Rouleaux Hemoglobin C Crystals Schistocytes Malaria parasites Molina Bodies Hem Pathologist Commnt PT INR Sodium Potassium Chloride Carbon Dioxide Anion Gap BUN Creatinine Estimated GFR BUN/Creatinine Ratio Glucose POC Glucose 52 L 193 H 184 H Calcium 09/12/20 09/12/20 09/12/20 06:16 06:16 06:16 WBC 17.4 H RBC 2.55 L Hgb 6.7 L Hct 22.3 L MCV 87 MCH 26 L MCHC 30 RDW 31.8 H Plt Count 104 L Add Manual Diff Complete Total Counted 100 Seg Neutrophils % Blow Torch Operator Seg Neuts % (Manual) 94.0 H Band Neutrophils % 5.0 Lymphocytes % (Manual) 1.0 L Reactive Lymphs % (Man) 0 Monocytes % (Manual) 0 Eosinophils % (Manual) 0 Basophils % (Manual) 0 Metamyelocytes % 0 Myelocytes % 0 Promyelocytes % 0 Blast Cells % 0 Nucleated RBC % 2.0 H Seg Neutrophils # Man 16.4 H Band Neutrophils # 0.9 Lymphocytes # (Manual) 0.2 L Abs React Lymphs (Man) 0.0 Monocytes # (Manual) 0.0 Eosinophils # (Manual) 0.0 Basophils # (Manual) 0.0 Metamyelocytes # 0.0 Myelocytes # 0.0 Promyelocytes # 0.0 Blast Cells # 0.0 WBC Morphology Not Reportable Hypersegmented Neuts Not Reportable Hyposegmented Neuts Not Reportable Hypogranular Neuts Not Reportable Smudge Cells Not Reportable Toxic Granulation Not Reportable Toxic Vacuolation Not Reportable Dohle Bodies Not Reportable Pelger-Huet Anomaly Not Reportable Ignacia Rods Not Reportable Platelet Estimate Consistent w auto Clumped Platelets Not Reportable Plt Clumps, EDTA Not Reportable Large Platelets Not Reportable Giant Platelets Not Reportable Platelet Satelliting Not Reportable Plt Morphology Comment Not Reportable RBC Morphology Not Reportable Dimorphic RBCs Not Reportable Polychromasia Not Reportable Hypochromasia 1+ Poikilocytosis 1+ Anisocytosis 3+ Microcytosis Not Reportable Macrocytosis Few Spherocytes Not Reportable Pappenheimer Bodies Not Reportable Sickle Cells Not Reportable Target Cells Not Reportable Tear Drop Cells Not Reportable Ovalocytes Not Reportable Helmet Cells Not Reportable Horvath-Richmond Bodies Not Reportable Blencoe Rings Not Reportable Flora Cells Not Reportable Bite Cells Not Reportable Crenated Cell Not Reportable Elliptocytes Not Reportable Acanthocytes (Spur) Not Reportable Rouleaux Not Reportable Hemoglobin C Crystals Not Reportable Schistocytes Few Malaria parasites Not Reportable Molina Bodies Not Reportable Hem Pathologist Commnt No PT 16.7 H INR 1.34 H Sodium 149 H Potassium 4.4 Chloride 124.7 H Carbon Dioxide 15 L Anion Gap 14 BUN 67 H Creatinine 2.0 H Estimated GFR 30 BUN/Creatinine Ratio 34 Glucose 134 H POC Glucose Calcium 8.1 L 09/12/20 09/12/20 08:06 11:11 WBC RBC Hgb Hct MCV MCH MCHC RDW Plt Count Add Manual Diff Total Counted Seg Neutrophils % Seg Neuts % (Manual) Band Neutrophils % Lymphocytes % (Manual) Reactive Lymphs % (Man) Monocytes % (Manual) Eosinophils % (Manual) Basophils % (Manual) Metamyelocytes % Myelocytes % Promyelocytes % Blast Cells % Nucleated RBC % Seg Neutrophils # Man Band Neutrophils # Lymphocytes # (Manual) Abs React Lymphs (Man) Monocytes # (Manual) Eosinophils # (Manual) Basophils # (Manual) Metamyelocytes # Myelocytes # Promyelocytes # Blast Cells # WBC Morphology Hypersegmented Neuts Hyposegmented Neuts Hypogranular Neuts Smudge Cells Toxic Granulation Toxic Vacuolation Dohle Bodies Pelger-Huet Anomaly Ignacia Rods Platelet Estimate Clumped Platelets Plt Clumps, EDTA Large Platelets Giant Platelets Platelet Satelliting Plt Morphology Comment RBC Morphology Dimorphic RBCs Polychromasia Hypochromasia Poikilocytosis Anisocytosis Microcytosis Macrocytosis Spherocytes Pappenheimer Bodies Sickle Cells Target Cells Tear Drop Cells Ovalocytes Helmet Cells Horvath-Richmond Bodies Bl[place] Rings Flora Cells Bite Cells Crenated Cell Elliptocytes Acanthocytes (Spur) Rouleaux Hemoglobin C Crystals Schistocytes Malaria parasites Molina Bodies Hem Pathologist Commnt PT INR Sodium Potassium Chloride Carbon Dioxide Anion Gap BUN Creatinine Estimated GFR BUN/Creatinine Ratio Glucose POC Glucose 127 H 128 H Calcium
[2020-09-12] MEDS: hydrALAZINE 20 MG/1 ML INJ IV PRN (18:30)
[2020-09-12] MEDS: PANTOPRAZOLE 40 MG INJ IV SCH (21:54)
[2020-09-13] MEDS: INSULIN GLARGINE 100 UNITS/ML SUB-Q SCH ×2 (01:05→22:36)
[2020-09-13] MEDS: INSULIN LISPRO 100 UNIT/ML VIAL 3 mL SUB-Q SCH ×5 (01:06→23:00)
[2020-09-13] MEDS ORDERED: hydrALAZINE 20 MG/1 ML INJ IV ONE (01:13)
[2020-09-13 08:17] LABS: INR 1.63 (0.87-1.13)
[2020-09-13 08:39] LABS: Calcium 8.2 mg/dL (8.4-10.2)
[2020-09-13] MEDS: ASPIRIN EC 325 MG TAB PO SCH (10:05)
[2020-09-13] MEDS: hydroCHLOROthiazide 25 MG TAB PO SCH (10:05)
[2020-09-13] MEDS: FERROUS SULFATE 325 MG TAB PO SCH (10:05)
[2020-09-13] MEDS: SERTRALINE 50 MG TAB PO SCH (10:06)
[2020-09-13] MEDS: MULTIVITAMINS ,THERAPEUTIC TAB PO SCH (10:06)
[2020-09-13] MEDS: PANTOPRAZOLE 40 MG INJ IV SCH ×2 (10:06→22:35)
[2020-09-13 11:13] LABS: Hematocrit 22.6 % (30.3-42.9); Hemoglobin 7.1 gm/dl (10.1-14.3); Mean Corpuscular HGB Conc 32 % (30-34); Mean Corpuscular Volume 86 fl (79-97); Red Blood Count 2.62 M/mm3 (3.65-5.03)
[2020-09-13 11:28] LABS: Red Cell Distribution Width 28.7 % (13.2-15.2)
[2020-09-13] MEDS ORDERED: MAGNESIUM SULFATE 3 GM in SODIUM CHLORIDE 0.9% 100 ML IV ONE (11:30)
[2020-09-13] MEDS: CALCITRIOL 0.5 MCG CAP PO SCH (12:00)
[2020-09-13] MEDS: DESMOPRESSIN 0.1 MG TAB PO SCH ×2 (12:00→22:35)
[2020-09-13] MEDS: metOLazone 5 MG TAB PO SCH (12:01)
[2020-09-13] MEDS: K-LYTE 25 MEQ TABLET EFF PO SCH ×2 (12:01→22:36)
[2020-09-13 12:05] LABS: Platelet Count 89 K/mm3 (140-440)
--- NOTE | 2020-09-13 17:16 | Gastroenterology Progress Note ---
Assessment and Plan # Iron deficiency anemia - Anemic x several years (per [facility] records); EGD 2015 showed severe esophagitis and mild gastritis; no colonoscopy on file. - No gross GI bleeding. Rectal tube with green stool. - Will avoid EGD/colon while COVID positive with pneumonia, unless gross bleeding. - Continue MVI daily, and continue iron/protonix. - resume ASA. - conservative management with PPI and monitor H/H. - will sign off. please call back if signs of overt active GI bleeding. discussed with IMS team. # COVID-19 - b/l pneumonia # DVT - Acute versus chronic DVT of BLE; given hx of bilateral BKA, possible chronic. - Patient too unstable and anemic to anticoagulate at present. - resume ASA. - Patient Problems (1) COVID-19 Current Visit: Yes Status: Acute (2) Iron deficiency anemia due to chronic blood loss Current Visit: Yes Status: Acute Subjective Date of service: 09/13/20 Principal diagnosis: Iron Def Anemia Interval history: No bleeding noted per nursing. Patient confused and not answering questions. Objective - Constitutional Vitals: Temp Pulse Resp BP Pulse Ox 94.2 F L 86 20 145/94 98 09/13/20 05:45 09/13/20 05:45 09/13/20 05:45 09/13/20 05:45 09/13/20 05:45 General appearance: no acute distress - EENT ENT: hearing intact - Respiratory Respiratory effort: normal - Cardiovascular Rhythm: regular - Gastrointestinal General gastrointestinal: Present: soft, non-tender, non-distended - Neurologic Neurological: other (not following commands, agitated) - Labs CBC & Chem 7: 09/13/20 10:07 09/13/20 07:26 Labs: Laboratory Results - last 24 hr 09/10/20 09/12/20 09/13/20 13:48 16:30 00:02 WBC RBC Hgb Hct MCV MCH MCHC RDW Plt Count PT INR Sodium Potassium Chloride Carbon Dioxide Anion Gap BUN Creatinine Estimated GFR BUN/Creatinine Ratio Glucose POC Glucose 145 H 247 H Calcium Magnesium Blood Type O POSITIVE Antibody Screen Negative Crossmatch See Detail 09/13/20 09/13/20 09/13/20 07:26 07:26 09:56 WBC RBC Hgb Hct MCV MCH MCHC RDW Plt Count PT 19.5 H INR 1.63 H Sodium 146 H Potassium 4.2 Chloride 121.3 H Carbon Dioxide 13 L Anion Gap 16 BUN 67 H Creatinine 1.8 H Estimated GFR 34 BUN/Creatinine Ratio 37 Glucose 194 H POC Glucose 233 H Calcium 8.2 L Magnesium 1.40 L Blood Type Antibody Screen Crossmatch 09/13/20 09/13/20 09/13/20 10:07 13:37 17:17 WBC 15.3 H RBC 2.62 L Hgb 7.1 L Hct 22.6 L MCV 86 MCH 27 L MCHC 32 RDW 28.7 H Plt Count 89 L PT INR Sodium Potassium Chloride Carbon Dioxide Anion Gap BUN Creatinine Estimated GFR BUN/Creatinine Ratio Glucose POC Glucose 181 H 148 H Calcium Magnesium Blood Type Antibody Screen Crossmatch
--- NOTE | 2020-09-13 17:50 | Progress Note ---
Assessment and Plan -- Acute delirium/acute metabolic encephalopathy Etiology unknown, likely metabolic as needed haldol, placed on restraint --Sepsis Due to COVID-19 pneumonia Blood culture NTD ID recommendations appreciated --COVID-19 pneumonia, POA Coronavirus protocol: Coronavirus PCR is positive, contact precaution, isolation precautions, prone positioning while in bed, Not a candidate for remdesivir due to renal failure Continue dexamethasone s/p convalescent plasma --Acute on chronic anemia Due to chronic GI bleed and iron deficiency Status post transfusion of 3 units PRBC, PPI. Continue to monitor for GI bleed As per GI, does not look like patient is having GI bleed at this time Advance diet as tolerated --Possible GI bleed, chronic Advance diet, GI on board Recommended to manage medically --Acute kidney injury (DIRK) with acute tubular necrosis (ATN) Continue to monitor renal function Nephrology following closely --Hypernatremia Continue isotonic solution Nephrology on board --Bilateral lower extremity DVT, chronic Consulted vascular surgeon for consideration of IVC filter placement. As per vascular surgery, patient is not a good candidate for IVC filter placement INR 2.74. GI recommended to treat with aspirin only --Diabetes Current Visit: Yes Status: Acute Plan to address problem: Sliding-scale insulin therapy, Accu-Chek, hypoglycemia protocol, consistent carbohydrate diet. --DVT prophylaxis, Anticoagulation --Advance care planning Disease education conducted, prognosis discussed, patient is full code, care plan discussed, patient knowledges understanding and agreement with care plan. +30 minutes. --Nicotine dependence Supportive care, smoking cessation counseling, behavior change counseling, +15 minutes. Brief History; 64 YO Female with HTN, DM, Anemia, PVD, Nicotine Dependence, positive coronavirus test recently at [facility] presented to the emergency room for fur ther evaluation. Patient states that she has experienced subjective fever, generalized weakness, body aches, shortness of breath, nausea, multiple loose stools, lower extremity edema over the past 1 week with progressively worsening symptoms over the past 3 to 4 days prior to presentation. Patient was brought to the emergency room as a result. Here, patient found to be hypotensive with a systolic blood pressure ranging from 53-94. Patient was also hypothermic with a body temperature of 93.3 F. Patient met criteria for sepsis protocol and found to have bilateral pneumonia, metabolic acidosis, acute kidney injury. Patient admitted to telemetry due to increased risk of multisystem decompensation. Patient initiated on coronavirus protocol. Coronavirus PCR has been ordered and is pending at time of admission. Patient remained hypotensive in spite of IV fluid resuscitation therapy. Patient subsequently upgraded to IMCU. 09/03. While in the ER, patient had an ultrasound Doppler performed that showed bilateral DVT involving the iliac veins. Patient was started on heparin drip. ID consulted for COVID-19 and nephrology consulted for DIRK. Patient seen and examined at bedside this morning. She has no complaints this morning. Her hemoglobin dropped to 6.4 this morning. Patient will get transfused 1 unit of PRBCs. Later this p.m., was notified by nurse that patient is having tarry dark stool and hematemesis. Heparin drip discontinued. Patient started on PPI drip and made n.p.o. GI is has been consulted. Patient will need to have an upper endoscopy. She has bilateral lower extremity DVT and will need vascular surgery evaluation to determine if she is a candidate for IVC filter placement. 09/04. Patient seen and examined at bedside this morning. Labs reviewed showed hemoglobin 5.3. Patient will receive 2 units PRBCs. FFP also ordered. GI evaluation pending. Continue PPIs. Vascular surgeon to see to determine if patient is a candidate for IVC filter placement for DVT. 09/05. Hb stable this morning. GI on board. On PPI drip. 09/06. Gastroenterology and vascular surgery recommendations reviewed. Patient not a good candidate for IVC filter placement due to location of the clot/thrombosis. Plan is for patient to have anticoagulation on while mon itoring hemoglobin. Patient's INR is more than 2 at this time so we will hold anticoagulation for now and monitor hemoglobin. Plan to initiate anticoagulation when INR is less than 2. We will preferably use heparin products as she has a high chance of bleeding. Continue to monitor hemoglobin. Hb 7.3 this a.m. 09/07. Hemoglobin 8.2 this AM. No clear signs of GI bleed. Her INR is 2.74. No need for initiation of AC for now as she INR is already therapeutic. Plan is to monitor for bleeding and if she remains stable, she will be started on anticoagulation for her bilateral DVT. Vascular surgery following-patient not a candidate for IVC catheter placement. GI recommendations appreciated 09/08: Patient is nonreactive to COVID-19 antibody, per ID order for convalescent plasma. Continue supportive care, follow clinically 09/09: Pending convalescent plasma transfusion, continue to follow inflammatory markers. Monitor H&H. Plan to start on aspirin tomorrow if INR and H&H stable 09/10: hb dropped to 6.8, transfuse one unit, discussed with GI - no plan for endoscopy now, cont to follow clinically 09/11: patient didn't get transfusion yesterday. became very agitated today, ordered as needed haldol, cont iv fluid. monitor clinically 09/12: placed on restrain o/n. cont supportive care, lost IV line - ordered for midline. pending PRBC transfusion 09/13: monitor h/h, patient more clam today, continue supportive care, follow BMP - Na and Cr has been improving Subjective Date of service: 09/13/20 Principal diagnosis: Iron Def Anemia Interval history: Patient seen and examined no obvious active bleeding Appears much calm today, midline has been placed Discussed with RN at the bedside Vitals reviewed Objective - Exam Narrative Exam: GENERAL: Awake, HEAD: No signs of head trauma. EYES: Pupils are equal. Extraocular motions intact. MOUTH: Oropharynx is normal. NECK: No adenopathy, no JVD. CHEST: Chest with diminished breath sounds bilaterally. No wheezes, rales, or rhonchi. CARDIAC: Regular rate and rhythm. S1 and S2, without murmurs, gallops, or rubs. ABDOMEN: Soft, non tender and non distended. No rebound or guarding, and no masses palpated. Bowel Sounds normal. MUSCULOSKELETAL: bilateral BKA NEUROLOGIC EXAM: Awake PSYCHIATRIC: Stable mood SKIN: No obvious lesions - Labs CBC & Chem 7: 09/13/20 10:07 09/13/20 07:26 Labs: Abnormal lab results 09/10/20 09/13/20 09/13/20 Range/Units 13:48 00:02 07:26 WBC (4.5-11.0) K/mm3 RBC (3.65-5.03) M/mm3 Hgb (10.1-14.3) gm/dl Hct (30.3-42.9) % MCH (28-32) pg RDW (13.2-15.2) % Plt Count (140-440) K/mm3 PT 19.5 H (12.2-14.9) Sec. INR 1.63 H (0.87-1.13) Sodium (137-145) mmol/L Chloride (98-107) mmol/L Carbon Dioxide (22-30) mmol/L BUN (7-17) mg/dL Creatinine (0.6-1.2) mg/dL Glucose (65-100) mg/dL POC Glucose 247 H (70-105) mg/dL Calcium (8.4-10.2) mg/dL Magnesium (1.7-2.3) mg/dL Crossmatch See Detail 09/13/20 09/13/20 09/13/20 Range/Units 07:26 09:56 10:07 WBC 15.3 H (4.5-11.0) K/mm3 RBC 2.62 L (3.65-5.03) M/mm3 Hgb 7.1 L (10.1-14.3) gm/dl Hct 22.6 L (30.3-42.9) % MCH 27 L (28-32) pg RDW 28.7 H (13.2-15.2) % Plt Count 89 L (140-440) K/mm3 PT (12.2-14.9) Sec. INR (0.87-1.13) Sodium 146 H (137-145) mmol/L Chloride 121.3 H (98-107) mmol/L Carbon Dioxide 13 L (22-30) mmol/L BUN 67 H (7-17) mg/dL Creatinine 1.8 H (0.6-1.2) mg/dL Glucose 194 H (65-100) mg/dL POC Glucose 233 H (70-105) mg/dL Calcium 8.2 L (8.4-10.2) mg/dL Magnesium 1.40 L (1.7-2.3) mg/dL Crossmatch 09/13/20 09/13/20 Range/Units 13:37 17:17 WBC (4.5-11.0) K/mm3 RBC (3.65-5.03) M/mm3 Hgb (10.1-14.3) gm/dl Hct (30.3-42.9) % MCH (28-32) pg RDW (13.2-15.2) % Plt Count (140-440) K/mm3 PT (12.2-14.9) Sec. INR (0.87-1.13) Sodium (137-145) mmol/L Chloride (98-107) mmol/L Carbon Dioxide (22-30) mmol/L BUN (7-17) mg/dL Creatinine (0.6-1.2) mg/dL Glucose (65-100) mg/dL POC Glucose 181 H 148 H (70-105) mg/dL Calcium (8.4-10.2) mg/dL Magnesium (1.7-2.3) mg/dL Crossmatch
--- NOTE | 2020-09-13 18:00 | Progress Note ---
Assessment and Plan 1. Acute kidney injury: DIRK secondary to combination of Vasomotor nephropathy and severe sepsis. Renal US negative for hydro. Monitor renal function. Creatinine level is improving. Prior Creatinine was 1.2 in 2014. Likely CKD stage 4. Renal prognosis is guarded. Avoid nephrotoxic agents. Meds dosage based on GFR. 2. FEN: Mild hyperkalemia, improved, monitor. Hyperchloremic Metabolic acidosis, on Pot bicarbonate, monitor. Unable to give Sod bicarb due to hypernatremia. Hypernatremia, sodium level is improving, on IV D5W, monitor. On HCTZ, Metolazone and DDAVP. Monitor lytes. 3. Nephrotic syndrome: Likely diabetic nephropathy. DEMARCUS, ANCA, complements, GBM Ab and SPEP ordered. 4. Severe sepsis, POA: Presented with hypothermia, hypotension. Likely secondary to bilateral pneumonia. 5. Severe COVID infection: Followed by ID. 6. Bilateral LE DVT, POA. 7. Microcytic anemia, POA: S/p PRBC. Monitor. Followed by GI. 8. Thrombocytopenia, POA. 9. Acute diarrhea: Likely associated to COVID-19 infection. C. difficile test negative. Subjective: The patient was not examined today. However the examination findings from other providers noted. The current and previous medical records are reviewed in detail as are laboratory and imaging data reviewed when appropriate. Medications being given are also reviewed. In addition the case has been discussed with the attending hospitalist and the nurse when needed.Newrenalrecommendations as above. General Appearance: Subjective Date of service: 09/13/20 Principal diagnosis: Iron Def Anemia Objective - Lab 09/13/20 10:07 09/13/20 07:26 Most recent lab results Calcium 8.2 mg/dL (8.4-10.2) L 09/13/20 07:26 Phosphorus 3.50 mg/dL (2.5-4.5) 09/06/20 06:43 Magnesium 1.40 mg/dL (1.7-2.3) L 09/13/20 07:26 Urine Creatinine 43.2 mg/dL (0.1-20.0) H 09/06/20 06:52 Urine Sodium 84 mmol/L 09/06/20 06:52 Urine Total Protein 298 mg/dL (5-11.8) H 09/06/20 06:52 Medications & Allergies - Medications Allergies/Adverse Reactions: Allergies No Known Allergies Allergy (Unverified 02/14/14 19:23) Home Medications: Home Medications Medication Instructions Recorded Confirmed Last Taken Type Aspirin [Satsuma Aspirin] 81 mg PO DAILY 02/14/14 02/22/14 02/14/14 11:00 History Ferrous Sulfate [Feosol 325mg] 325 mg PO DAILY 02/14/14 02/22/14 02/14/14 11:00 History Sertraline [Zoloft] 50 mg PO DAILY 02/14/14 02/22/14 02/14/14 11:00 History amLODIPine 5 mg PO DAILY 02/14/14 02/22/14 02/14/14 11:00 History hydroCHLOROthiazide 25 mg PO DAILY 02/14/14 02/22/14 02/14/14 11:00 History [Hydrochlorothiazide] lisinopriL [Zestril TAB] 10 mg PO DAILY 02/14/14 02/22/14 02/14/14 11:00 History Insulin NPH Hum/Reg Insulin Hm 100 units SQ BID 02/22/14 02/23/14 Unknown History [Humulin 70-30 Vial] Insulin Regular, Human [HumuLIN R] 7 unit SQ AC 02/22/14 02/23/14 Unknown History Active Medications: Generic Name Dose Route Start Last Admin Trade Name Freq PRN Reason Stop Dose Admin Acetaminophen 650 mg 09/02/20 00:30 09/05/20 22:50 Tylenol PO 650 mg Q6H PRN Administration Pain, Mild (1-3) Aspirin 325 mg 09/09/20 12:00 09/13/20 10:05 Ecotrin PO 325 mg QDAY JAE Administration Calcitriol 0.5 mcg 09/05/20 13:00 09/13/20 12:00 Rocaltrol PO 0.5 mcg QDAY JAE Administration Desmopressin Acetate 0.1 mg 09/12/20 10:00 09/13/20 12:00 Ddavp PO 0.1 mg BID JAE Administration Dextrose 50 ml 09/11/20 19:09 D50w (25gm) Syringe IV Q30MIN PRN Hypoglycemia Protocol Ferrous Sulfate 325 mg 09/02/20 10:00 09/13/20 10:05 Feosol PO 325 mg DAILY JAE Administration Haloperidol Lactate 5 mg 09/11/20 19:10 Haldol IM Q6H PRN Agitation Hydralazine HCl 10 mg 09/10/20 22:23 09/12/20 18:30 Apresoline IV 10 mg Q6H PRN Administration Blood Pressure Hydrochlorothiazide 25 mg 09/11/20 12:00 09/13/20 10:05 Hctz PO 25 mg QDAY JAE Administration Hydromorphone HCl 0.25 mg 09/02/20 00:30 09/05/20 23:28 Dilaudid IV 0.25 mg Q4H PRN Administration Pain, Moderate (4-6) Sodium Chloride 500 mls @ 0 mls/hr 09/04/20 13:03 09/13/20 00:58 Nacl 0.9% 500 Ml IV 50 mls/hr ONCE JAE Administration As Directed Dextrose 1,000 mls @ 125 mls/hr 09/09/20 13:00 09/12/20 21:53 D5w IV 125 mls/hr DIRECT AJE Administration Insulin Glargine 14 units 09/07/20 22:00 09/13/20 01:05 Lantus SUB-Q 14 units QHS JAE Administration Insulin Human Lispro 0 unit 09/03/20 11:30 09/13/20 13:01 Humalog SUB-Q Not Given ACHS [facility] Protocol Metolazone 10 mg 09/07/20 10:00 09/13/20 12:01 Zaroxolyn PO 10 mg QDAY JAE Administration Multivitamins 1 each 09/06/20 10:00 09/13/20 10:06 Theragran Tab PO 1 each QDAY JAE Administration Pantoprazole Sodium 40 mg 09/12/20 22:00 09/13/20 10:06 Protonix IV 40 mg BID JAE Administration Potassium Bicarbonate 50 meq 09/10/20 22:00 09/13/20 12:01 Klor-Con PO 50 meq BID JAE Administration Sertraline HCl 50 mg 09/02/20 10:00 09/13/20 10:06 Zoloft PO 50 mg DAILY JAE Administration Sodium Chloride 10 ml 09/02/20 10:00 09/13/20 10:17 Sodium Chloride Flush Syringe 10 Ml IV 10 ml BID JAE Administration Sodium Chloride 10 ml 09/02/20 00:30 Sodium Chloride Flush Syringe 10 Ml IV PRN PRN LINE FLUSH
[2020-09-13] MEDS: DEXTROSE 5% IN WATER 1,000 ML IV SCH (22:39)
[2020-09-14] MEDS: DEXTROSE 5% IN WATER 1,000 ML IV SCH ×2 (05:26→15:32)
[2020-09-14] MEDS: hydrALAZINE 20 MG/1 ML INJ IV PRN (05:46)
[2020-09-14] MEDS: FERROUS SULFATE 325 MG TAB PO SCH (11:49)
[2020-09-14] MEDS: PANTOPRAZOLE 40 MG INJ IV SCH (11:49)
[2020-09-14] MEDS: SERTRALINE 50 MG TAB PO SCH (11:49)
[2020-09-14] MEDS: MULTIVITAMINS ,THERAPEUTIC TAB PO SCH (11:49)
[2020-09-14] MEDS: ASPIRIN EC 325 MG TAB PO SCH (11:49)
[2020-09-14] MEDS: hydroCHLOROthiazide 25 MG TAB PO SCH (11:49)
[2020-09-14] MEDS: metOLazone 5 MG TAB PO SCH (11:49)
[2020-09-14] MEDS: DESMOPRESSIN 0.1 MG TAB PO SCH ×2 (11:50→22:01)
[2020-09-14] MEDS: K-LYTE 25 MEQ TABLET EFF PO SCH ×2 (11:50→22:01)
[2020-09-14] MEDS: CALCITRIOL 0.5 MCG CAP PO SCH (11:50)
[2020-09-14] MEDS: INSULIN LISPRO 100 UNIT/ML VIAL 3 mL SUB-Q SCH ×4 (11:51→22:52)
--- NOTE | 2020-09-14 13:18 | Progress Note ---
Assessment and Plan 1. Acute kidney injury: DIRK secondary to combination of Vasomotor nephropathy and severe sepsis. Renal US negative for hydro. Monitor renal function. Creatinine level is improving. Prior Creatinine was 1.2 in 2014. Likely CKD stage 4. Renal prognosis is guarded. Avoid nephrotoxic agents. Meds dosage based on GFR. No labs from today, I called and talked to the lab personnel. 2. FEN: Mild hyperkalemia, improved, monitor. Hyperchloremic Metabolic acidosis, on Pot bicarbonate, monitor. Unable to give Sod bicarb due to hypernatremia. Hypernatremia, sodium level is improving, on IV D5W, monitor. On HCTZ, Metolazone and DDAVP. Monitor lytes. 3. Nephrotic syndrome: Likely diabetic nephropathy. DEMARCUS, ANCA, complements, GBM Ab and SPEP ordered. 4. Severe sepsis, POA: Presented with hypothermia, hypotension. Likely secondary to bilateral pneumonia. 5. Severe COVID infection: Followed by ID. 6. Bilateral LE DVT, POA. 7. Microcytic anemia, POA: S/p PRBC. Monitor. Followed by GI. 8. Thrombocytopenia, POA. 9. Acute diarrhea: Likely associated to COVID-19 infection. C. difficile test negative. Subjective: Patient was seen and examined at the bedside. Denies any new complaint. Examination: General appearance: well-developed, appears stated age, no distress, obese, on restrains HEENT: ATNC, JAYCE Neck: supple Respiratory: ctab Cardiology: regular, S1S2, no murmur Gastrointestinal: normoactive bowel sounds, no tenderness, not distended Integumentary: no obvious rash Neurologic: alert, moving extremities, confusion noted Ext: trace dependent edema, b/l BKA Subjective Date of service: 09/14/20 Principal diagnosis: Iron Def Anemia Objective - Vital Signs Vital signs: Vital Signs - 12hr 09/14/20 09/14/20 04:00 05:46 Pulse Rate 94 H 84 Blood Pressure 199/81 - Lab 09/13/20 10:07 09/13/20 07:26 Most recent lab results Calcium 8.2 mg/dL (8.4-10.2) L 09/13/20 07:26 Phosphorus 3.50 mg/dL (2.5-4.5) 09/06/20 06:43 Magnesium 1.40 mg/dL (1.7-2.3) L 09/13/20 07:26 Urine Creatinine 43.2 mg/dL (0.1-20.0) H 09/06/20 06:52 Urine Sodium 84 mmol/L 09/06/20 06:52 Urine Total Protein 298 mg/dL (5-11.8) H 09/06/20 06:52 Medications & Allergies - Medications Allergies/Adverse Reactions: Allergies No Known Allergies Allergy (Unverified 02/14/14 19:23) Home Medications: Home Medications Medication Instructions Recorded Confirmed Last Taken Type Aspirin [[place] Aspirin] 81 mg PO DAILY 02/14/14 02/22/14 02/14/14 11:00 History Ferrous Sulfate [Feosol 325mg] 325 mg PO DAILY 02/14/14 02/22/14 02/14/14 11:00 History Sertraline [Zoloft] 50 mg PO DAILY 02/14/14 02/22/14 02/14/14 11:00 History amLODIPine 5 mg PO DAILY 02/14/14 02/22/14 02/14/14 11:00 History hydroCHLOROthiazide 25 mg PO DAILY 02/14/14 02/22/14 02/14/14 11:00 History [Hydrochlorothiazide] lisinopriL [Zestril TAB] 10 mg PO DAILY 02/14/14 02/22/14 02/14/14 11:00 History Insulin NPH Hum/Reg Insulin Hm 100 units SQ BID 02/22/14 02/23/14 Unknown History [Humulin 70-30 Vial] Insulin Regular, Human [HumuLIN R] 7 unit SQ AC 02/22/14 02/23/14 Unknown History Active Medications: Generic Name Dose Route Start Last Admin Trade Name Freq PRN Reason Stop Dose Admin Acetaminophen 650 mg 09/02/20 00:30 09/05/20 22:50 Tylenol PO 650 mg Q6H PRN Administration Pain, Mild (1-3) Aspirin 325 mg 09/09/20 12:00 09/14/20 11:49 Ecotrin PO 325 mg QDAY JAE Administration Calcitriol 0.5 mcg 09/05/20 13:00 09/14/20 11:50 Rocaltrol PO 0.5 mcg QDAY JAE Administration Desmopressin Acetate 0.1 mg 09/12/20 10:00 09/14/20 11:50 Ddavp PO 0.1 mg BID JAE Administration Dextrose 50 ml 09/11/20 19:09 D50w (25gm) Syringe IV Q30MIN PRN Hypoglycemia Protocol Ferrous Sulfate 325 mg 09/02/20 10:00 09/14/20 11:49 Feosol PO 325 mg DAILY JAE Administration Haloperidol Lactate 5 mg 09/11/20 19:10 Haldol IM Q6H PRN Agitation Hydralazine HCl 10 mg 09/10/20 22:23 09/14/20 05:46 Apresoline IV 10 mg Q6H PRN Administration Blood Pressure Hydrochlorothiazide 25 mg 09/11/20 12:00 09/14/20 11:49 Hctz PO 25 mg QDAY JAE Administration Hydromorphone HCl 0.25 mg 09/02/20 00:30 09/05/20 23:28 Dilaudid IV 0.25 mg Q4H PRN Administration Pain, Moderate (4-6) Dextrose 1,000 mls @ 125 mls/hr 09/09/20 13:00 09/14/20 05:26 D5w IV 125 mls/hr DIRECT JAE Administration Insulin Glargine 14 units 09/07/20 22:00 09/13/20 22:36 Lantus SUB-Q 14 units QHS JAE Administration Insulin Human Lispro 0 unit 09/03/20 11:30 09/14/20 11:51 Humalog SUB-Q 3 unit ACHS JAE Administration Protocol Metolazone 10 mg 09/07/20 10:00 09/14/20 11:49 Zaroxolyn PO 10 mg QDAY JAE Administration Multivitamins 1 each 09/06/20 10:00 09/14/20 11:49 Theragran Tab PO 1 each QDAY JAE Administration Pantoprazole Sodium 40 mg 09/12/20 22:00 09/14/20 11:49 Protonix IV 40 mg BID JAE Administration Potassium Bicarbonate 50 meq 09/10/20 22:00 09/14/20 11:50 Klor-Con PO 50 meq BID JAE Administration Sertraline HCl 50 mg 09/02/20 10:00 09/14/20 11:49 Zoloft PO 50 mg DAILY JAE Administration Sodium Chloride 10 ml 09/02/20 10:00 09/14/20 11:51 Sodium Chloride Flush Syringe 10 Ml IV 10 ml BID JAE Administration Sodium Chloride 10 ml 09/02/20 00:30 Sodium Chloride Flush Syringe 10 Ml IV PRN PRN LINE FLUSH
--- NOTE | 2020-09-14 14:49 | Progress Note ---
Assessment and Plan -- Acute delirium/acute metabolic encephalopathy Etiology unknown, likely metabolic as needed haldol, placed on restraint --Sepsis Due to COVID-19 pneumonia Blood culture NTD ID recommendations appreciated --COVID-19 pneumonia, POA Coronavirus protocol: Coronavirus PCR is positive, contact precaution, isolation precautions, prone positioning while in bed, Not a candidate for remdesivir due to renal failure Continue dexamethasone s/p convalescent plasma --Acute on chronic anemia Due to chronic GI bleed and iron deficiency Status post transfusion of 3 units PRBC, PPI. Continue to monitor for GI bleed As per GI, does not look like patient is having GI bleed at this time Advance diet as tolerated --Possible GI bleed, chronic Advance diet, GI on board Recommended to manage medically --Acute kidney injury (DIRK) with acute tubular necrosis (ATN) Continue to monitor renal function Nephrology following closely --Hypernatremia Continue isotonic solution Nephrology on board --Bilateral lower extremity DVT, chronic Consulted vascular surgeon for consideration of IVC filter placement. As per vascular surgery, patient is not a good candidate for IVC filter placement INR 2.74. GI recommended to treat with aspirin only --Diabetes Current Visit: Yes Status: Acute Plan to address problem: Sliding-scale insulin therapy, Accu-Chek, hypoglycemia protocol, consistent carbohydrate diet. --DVT prophylaxis, Anticoagulation --Advance care planning Disease education conducted, prognosis discussed, patient is full code, care plan discussed, patient knowledges understanding and agreement with care plan. +30 minutes. --Nicotine dependence Supportive care, smoking cessation counseling, behavior change counseling, +15 minutes. Brief History; 64 YO Female with HTN, DM, Anemia, PVD, Nicotine Dependence, positive coronavirus test recently at [facility] presented to the emergency room for fur ther evaluation. Patient states that she has experienced subjective fever, generalized weakness, body aches, shortness of breath, nausea, multiple loose stools, lower extremity edema over the past 1 week with progressively worsening symptoms over the past 3 to 4 days prior to presentation. Patient was brought to the emergency room as a result. Here, patient found to be hypotensive with a systolic blood pressure ranging from 53-94. Patient was also hypothermic with a body temperature of 93.3 F. Patient met criteria for sepsis protocol and found to have bilateral pneumonia, metabolic acidosis, acute kidney injury. Patient admitted to telemetry due to increased risk of multisystem decompensation. Patient initiated on coronavirus protocol. Coronavirus PCR has been ordered and is pending at time of admission. Patient remained hypotensive in spite of IV fluid resuscitation therapy. Patient subsequently upgraded to IMCU. 09/03. While in the ER, patient had an ultrasound Doppler performed that showed bilateral DVT involving the iliac veins. Patient was started on heparin drip. ID consulted for COVID-19 and nephrology consulted for DIRK. Patient seen and examined at bedside this morning. She has no complaints this morning. Her hemoglobin dropped to 6.4 this morning. Patient will get transfused 1 unit of PRBCs. Later this p.m., was notified by nurse that patient is having tarry dark stool and hematemesis. Heparin drip discontinued. Patient started on PPI drip and made n.p.o. GI is has been consulted. Patient will need to have an upper endoscopy. She has bilateral lower extremity DVT and will need vascular surgery evaluation to determine if she is a candidate for IVC filter placement. 09/04. Patient seen and examined at bedside this morning. Labs reviewed showed hemoglobin 5.3. Patient will receive 2 units PRBCs. FFP also ordered. GI evaluation pending. Continue PPIs. Vascular surgeon to see to determine if patient is a candidate for IVC filter placement for DVT. 09/05. Hb stable this morning. GI on board. On PPI drip. 09/06. Gastroenterology and vascular surgery recommendations reviewed. Patient not a good candidate for IVC filter placement due to location of the clot/thrombosis. Plan is for patient to have anticoagulation on while mon itoring hemoglobin. Patient's INR is more than 2 at this time so we will hold anticoagulation for now and monitor hemoglobin. Plan to initiate anticoagulation when INR is less than 2. We will preferably use heparin products as she has a high chance of bleeding. Continue to monitor hemoglobin. Hb 7.3 this a.m. 09/07. Hemoglobin 8.2 this AM. No clear signs of GI bleed. Her INR is 2.74. No need for initiation of AC for now as she INR is already therapeutic. Plan is to monitor for bleeding and if she remains stable, she will be started on anticoagulation for her bilateral DVT. Vascular surgery following-patient not a candidate for IVC catheter placement. GI recommendations appreciated 09/08: Patient is nonreactive to COVID-19 antibody, per ID order for convalescent plasma. Continue supportive care, follow clinically 09/09: Pending convalescent plasma transfusion, continue to follow inflammatory markers. Monitor H&H. Plan to start on aspirin tomorrow if INR and H&H stable 09/10: hb dropped to 6.8, transfuse one unit, discussed with GI - no plan for endoscopy now, cont to follow clinically 09/11: patient didn't get transfusion yesterday. became very agitated today, ordered as needed haldol, cont iv fluid. monitor clinically 09/12: placed on restrain o/n. cont supportive care, lost IV line - ordered for midline. pending PRBC transfusion 09/13: monitor h/h, patient more clam today, continue supportive care, follow BMP - Na and Cr has been improving 09/14: cont to monitor, follow BMP, follow h/h. oral intake improved per RN Subjective Date of service: 09/14/20 Principal diagnosis: Iron Def Anemia Interval history: Patient seen and examined no obvious active bleeding Appears much calm today, midline has been placed Discussed with RN at the bedside Vitals reviewed Objective - Exam Narrative Exam: GENERAL: Awake, HEAD: No signs of head trauma. EYES: Pupils are equal. Extraocular motions intact. MOUTH: Oropharynx is normal. NECK: No adenopathy, no JVD. CHEST: Chest with diminished breath sounds bilaterally. No wheezes, rales, or rhonchi. CARDIAC: Regular rate and rhythm. S1 and S2, without murmurs, gallops, or rubs. ABDOMEN: Soft, non tender and non distended. No rebound or guarding, and no masses palpated. Bowel Sounds normal. MUSCULOSKELETAL: bilateral BKA NEUROLOGIC EXAM: Awake PSYCHIATRIC: Stable mood SKIN: No obvious lesions - Constitutional Vitals: Vital Signs - 12hr 09/14/20 09/14/20 04:00 05:46 Pulse Rate 94 H 84 Blood Pressure 199/81 - Labs CBC & Chem 7: 09/13/20 10:07 09/14/20 19:57 Labs: Abnormal lab results 09/13/20 09/14/20 09/14/20 Range/Units 17:17 00:42 10:08 POC Glucose 148 H 200 H 204 H (70-105) mg/dL
[2020-09-14] MEDS: PANTOPRAZOLE 40 MG TAB PO SCH (18:43)
[2020-09-14 20:10] LABS: INR 1.62 (0.87-1.13)
[2020-09-14 20:41] LABS: BUN/Creatinine Ratio 14; Blood Urea Nitrogen 26 mg/dL (7-17); Calcium 8.2 mg/dL (8.4-10.2)
[2020-09-14] MEDS: INSULIN GLARGINE 100 UNITS/ML SUB-Q SCH (22:01)
[2020-09-15] MEDS: DEXTROSE 5% IN WATER 1,000 ML IV SCH ×2 (00:10→05:11)
--- NOTE | 2020-09-15 08:31 | Progress Note ---
Assessment and Plan 1. Acute kidney injury: DIRK secondary to combination of Vasomotor nephropathy and severe sepsis. Renal US negative for hydro. Monitor renal function. Creatinine leveled off at 1.8. Prior Creatinine was 1.2 in 2014. Likely CKD stage 4. Renal prognosis is guarded. Avoid nephrotoxic agents. Meds dosage based on GFR. Labs from today is still pending. 2. FEN: Mild hyperkalemia, improved, monitor. Hyperchloremic Metabolic acidosis, on Pot bicarbonate, monitor. Start on Sod bicarb. Hypernatremia, sodium level has improved, IV D5W stopped, monitor. On HCTZ and Metolazone. DDAVP stopped. Monitor lytes. 3. Nephrotic syndrome: Likely diabetic nephropathy. DEMARCUS, ANCA, complements, GBM Ab and SPEP re-ordered. 4. Severe sepsis, POA: Presented with hypothermia, hypotension. Likely secondary to bilateral pneumonia. 5. Severe COVID infection: Followed by ID. 6. Bilateral LE DVT, POA. 7. Microcytic anemia, POA: S/p PRBC. Monitor. Followed by GI. 8. Thrombocytopenia, POA. 9. Acute diarrhea: Likely associated to COVID-19 infection. C. difficile test negative. Subjective: Patient was seen and examined at the bedside. Denies any new complaint. Examination: General appearance: well-developed, appears stated age, no distress, obese HEENT: ATNC, JAYCE Neck: supple Respiratory: ctab Cardiology: regular, S1S2, no murmur Gastrointestinal: normoactive bowel sounds, no tenderness, not distended Integumentary: no obvious rash Neurologic: alert, moving extremities, confusion noted Ext: trace dependent edema, b/l BKA Subjective Date of service: 09/15/20 Principal diagnosis: Iron Def Anemia Objective - Vital Signs Vital signs: Vital Signs - 12hr 09/14/20 09/14/20 09/15/20 22:09 23:00 00:00 Temperature 97.4 F L Pulse Rate 58 L 53 L 53 L Respiratory 18 Rate Blood Pressure 84/45 Blood Pressure 162/52 [Left] O2 Sat by Pulse 100 Oximetry 09/15/20 04:00 Temperature 98.8 F Pulse Rate 60 Respiratory 18 Rate Blood Pressure 166/68 Blood Pressure [Left] O2 Sat by Pulse 100 Oximetry - Lab 09/13/20 10:07 09/14/20 19:57 Most recent lab results Calcium 8.2 mg/dL (8.4-10.2) L 09/14/20 19:57 Phosphorus 3.50 mg/dL (2.5-4.5) 09/06/20 06:43 Magnesium 2.20 mg/dL (1.7-2.3) 09/14/20 19:57 Urine Creatinine 43.2 mg/dL (0.1-20.0) H 09/06/20 06:52 Urine Sodium 84 mmol/L 09/06/20 06:52 Urine Total Protein 298 mg/dL (5-11.8) H 09/06/20 06:52 Medications & Allergies - Medications Allergies/Adverse Reactions: Allergies No Known Allergies Allergy (Unverified 02/14/14 19:23) Home Medications: Home Medications Medication Instructions Recorded Confirmed Last Taken Type Aspirin [[place] Aspirin] 81 mg PO DAILY 02/14/14 02/22/14 02/14/14 11:00 History Ferrous Sulfate [Feosol 325mg] 325 mg PO DAILY 02/14/14 02/22/14 02/14/14 11:00 History Sertraline [Zoloft] 50 mg PO DAILY 02/14/14 02/22/14 02/14/14 11:00 History amLODIPine 5 mg PO DAILY 02/14/14 02/22/14 02/14/14 11:00 History hydroCHLOROthiazide 25 mg PO DAILY 02/14/14 02/22/14 02/14/14 11:00 History [Hydrochlorothiazide] lisinopriL [Zestril TAB] 10 mg PO DAILY 02/14/14 02/22/14 02/14/14 11:00 History Insulin NPH Hum/Reg Insulin Hm 100 units SQ BID 02/22/14 02/23/14 Unknown History [Humulin 70-30 Vial] Insulin Regular, Human [HumuLIN R] 7 unit SQ AC 02/22/14 02/23/14 Unknown History Active Medications: Generic Name Dose Route Start Last Admin Trade Name Freq PRN Reason Stop Dose Admin Acetaminophen 650 mg 09/02/20 00:30 09/05/20 22:50 Tylenol PO 650 mg Q6H PRN Administration Pain, Mild (1-3) Aspirin 325 mg 09/09/20 12:00 09/14/20 11:49 Ecotrin PO 325 mg QDAY JAE Administration Calcitriol 0.5 mcg 09/05/20 13:00 09/14/20 11:50 Rocaltrol PO 0.5 mcg QDAY JAE Administration Desmopressin Acetate 0.1 mg 09/12/20 10:00 09/14/20 22:01 Ddavp PO 0.1 mg BID JAE Administration Dextrose 50 ml 09/11/20 19:09 D50w (25gm) Syringe IV Q30MIN PRN Hypoglycemia Protocol Ferrous Sulfate 325 mg 09/02/20 10:00 09/14/20 11:49 Feosol PO 325 mg DAILY JAE Administration Haloperidol Lactate 5 mg 09/11/20 19:10 Haldol IM Q6H PRN Agitation Hydralazine HCl 10 mg 09/10/20 22:23 09/14/20 05:46 Apresoline IV 10 mg Q6H PRN Administration Blood Pressure Hydrochlorothiazide 25 mg 09/11/20 12:00 09/14/20 11:49 Hctz PO 25 mg QDAY JAE Administration Hydromorphone HCl 0.25 mg 09/02/20 00:30 09/05/20 23:28 Dilaudid IV 0.25 mg Q4H PRN Administration Pain, Moderate (4-6) Dextrose 1,000 mls @ 125 mls/hr 09/09/20 13:00 09/15/20 05:11 D5w IV 125 mls/hr DIRECT JAE Administration Insulin Glargine 14 units 09/07/20 22:00 09/14/20 22:01 Lantus SUB-Q 14 units QHS JAE Administration Insulin Human Lispro 0 unit 09/03/20 11:30 09/14/20 22:52 Humalog SUB-Q Not Given ACHS [facility] Protocol Metolazone 10 mg 09/07/20 10:00 09/14/20 11:49 Zaroxolyn PO 10 mg QDAY JAE Administration Multivitamins 1 each 09/06/20 10:00 09/14/20 11:49 Theragran Tab PO 1 each QDAY JAE Administration Pantoprazole Sodium 40 mg 09/14/20 16:30 09/14/20 18:43 Protonix PO Not Given BIDAC JAE Potassium Bicarbonate 50 meq 09/10/20 22:00 09/14/20 22:01 Klor-Con PO 50 meq BID JAE Administration Sertraline HCl 50 mg 09/02/20 10:00 09/14/20 11:49 Zoloft PO 50 mg DAILY JAE Administration Sodium Chloride 10 ml 09/02/20 10:00 09/14/20 22:01 Sodium Chloride Flush Syringe 10 Ml IV 10 ml BID JAE Administration Sodium Chloride 10 ml 09/02/20 00:30 Sodium Chloride Flush Syringe 10 Ml IV PRN PRN LINE FLUSH
[2020-09-15] MEDS: INSULIN LISPRO 100 UNIT/ML VIAL 3 mL SUB-Q SCH ×4 (08:44→22:36)
[2020-09-15] MEDS: PANTOPRAZOLE 40 MG TAB PO SCH ×4 (08:45→17:24)
[2020-09-15] MEDS: ASPIRIN EC 325 MG TAB PO SCH (10:53)
[2020-09-15] MEDS: FERROUS SULFATE 325 MG TAB PO SCH (10:53)
[2020-09-15] MEDS: SERTRALINE 50 MG TAB PO SCH (10:53)
[2020-09-15] MEDS: CALCITRIOL 0.5 MCG CAP PO SCH (10:54)
[2020-09-15] MEDS: metOLazone 5 MG TAB PO SCH (10:58)
[2020-09-15] MEDS: K-LYTE 25 MEQ TABLET EFF PO SCH ×2 (10:58→22:35)
[2020-09-15] MEDS: hydroCHLOROthiazide 25 MG TAB PO SCH (10:58)
[2020-09-15] MEDS: MULTIVITAMINS ,THERAPEUTIC TAB PO SCH (10:58)
--- NOTE | 2020-09-15 18:01 | Progress Note ---
Assessment and Plan -- Acute delirium/acute metabolic encephalopathy Etiology unknown, likely metabolic as needed haldol, placed on restraint --Sepsis Due to COVID-19 pneumonia Blood culture NTD ID recommendations appreciated --COVID-19 pneumonia, POA Coronavirus protocol: Coronavirus PCR is positive, contact precaution, isolation precautions, prone positioning while in bed, Not a candidate for remdesivir due to renal failure Continue dexamethasone s/p convalescent plasma --Acute on chronic anemia Due to chronic GI bleed and iron deficiency Status post transfusion of 3 units PRBC, PPI. Continue to monitor for GI bleed As per GI, does not look like patient is having GI bleed at this time Advance diet as tolerated --Possible GI bleed, chronic Advance diet, GI on board Recommended to manage medically --Acute kidney injury (DIRK) with acute tubular necrosis (ATN) Continue to monitor renal function Nephrology following closely --Hypernatremia Continue isotonic solution Nephrology on board --Bilateral lower extremity DVT, chronic Consulted vascular surgeon for consideration of IVC filter placement. As per vascular surgery, patient is not a good candidate for IVC filter placement INR 2.74. GI recommended to treat with aspirin only --Diabetes Current Visit: Yes Status: Acute Plan to address problem: Sliding-scale insulin therapy, Accu-Chek, hypoglycemia protocol, consistent carbohydrate diet. --DVT prophylaxis, Anticoagulation --Advance care planning Disease education conducted, prognosis discussed, patient is full code, care plan discussed, patient knowledges understanding and agreement with care plan. +30 minutes. --Nicotine dependence Supportive care, smoking cessation counseling, behavior change counseling, +15 minutes. Brief History; 64 YO Female with HTN, DM, Anemia, PVD, Nicotine Dependence, positive coronavirus test recently at [place] presented to the emergency room for fur ther evaluation. Patient states that she has experienced subjective fever, generalized weakness, body aches, shortness of breath, nausea, multiple loose stools, lower extremity edema over the past 1 week with progressively worsening symptoms over the past 3 to 4 days prior to presentation. Patient was brought to the emergency room as a result. Here, patient found to be hypotensive with a systolic blood pressure ranging from 53-94. Patient was also hypothermic with a body temperature of 93.3 F. Patient met criteria for sepsis protocol and found to have bilateral pneumonia, metabolic acidosis, acute kidney injury. Patient admitted to telemetry due to increased risk of multisystem decompensation. Patient initiated on coronavirus protocol. Coronavirus PCR has been ordered and is pending at time of admission. Patient remained hypotensive in spite of IV fluid resuscitation therapy. Patient subsequently upgraded to IMCU. 09/03. While in the ER, patient had an ultrasound Doppler performed that showed bilateral DVT involving the iliac veins. Patient was started on heparin drip. ID consulted for COVID-19 and nephrology consulted for DIRK. Patient seen and examined at bedside this morning. She has no complaints this morning. Her hemoglobin dropped to 6.4 this morning. Patient will get transfused 1 unit of PRBCs. Later this p.m., was notified by nurse that patient is having tarry dark stool and hematemesis. Heparin drip discontinued. Patient started on PPI drip and made n.p.o. GI is has been consulted. Patient will need to have an upper endoscopy. She has bilateral lower extremity DVT and will need vascular surgery evaluation to determine if she is a candidate for IVC filter placement. 09/04. Patient seen and examined at bedside this morning. Labs reviewed showed hemoglobin 5.3. Patient will receive 2 units PRBCs. FFP also ordered. GI evaluation pending. Continue PPIs. Vascular surgeon to see to determine if patient is a candidate for IVC filter placement for DVT. 09/05. Hb stable this morning. GI on board. On PPI drip. 09/06. Gastroenterology and vascular surgery recommendations reviewed. Patient not a good candidate for IVC filter placement due to location of the clot/thrombosis. Plan is for patient to have anticoagulation on while mon itoring hemoglobin. Patient's INR is more than 2 at this time so we will hold anticoagulation for now and monitor hemoglobin. Plan to initiate anticoagulation when INR is less than 2. We will preferably use heparin products as she has a high chance of bleeding. Continue to monitor hemoglobin. Hb 7.3 this a.m. 09/07. Hemoglobin 8.2 this AM. No clear signs of GI bleed. Her INR is 2.74. No need for initiation of AC for now as she INR is already therapeutic. Plan is to monitor for bleeding and if she remains stable, she will be started on anticoagulation for her bilateral DVT. Vascular surgery following-patient not a candidate for IVC catheter placement. GI recommendations appreciated 09/08: Patient is nonreactive to COVID-19 antibody, per ID order for convalescent plasma. Continue supportive care, follow clinically 09/09: Pending convalescent plasma transfusion, continue to follow inflammatory markers. Monitor H&H. Plan to start on aspirin tomorrow if INR and H&H stable 09/10: hb dropped to 6.8, transfuse one unit, discussed with GI - no plan for endoscopy now, cont to follow clinically 09/11: patient didn't get transfusion yesterday. became very agitated today, ordered as needed haldol, cont iv fluid. monitor clinically 09/12: placed on restrain o/n. cont supportive care, lost IV line - ordered for midline. pending PRBC transfusion 09/13: monitor h/h, patient more clam today, continue supportive care, follow BMP - Na and Cr has been improving 09/14: cont to monitor, follow BMP, follow h/h. oral intake improved per RN 09/15: If h/h stable and Cr cont to improves will d/c in a day or two Subjective Date of service: 09/15/20 Principal diagnosis: Iron Def Anemia Interval history: Patient seen and examined no obvious active bleeding Discussed with RN at the bedside Vitals reviewed Objective - Exam Narrative Exam: GENERAL: Awake, HEAD: No signs of head trauma. EYES: Pupils are equal. Extraocular motions intact. MOUTH: Oropharynx is normal. NECK: No adenopathy, no JVD. CHEST: Chest with diminished breath sounds bilaterally. No wheezes, rales, or rhonchi. CARDIAC: Regular rate and rhythm. S1 and S2, without murmurs, gallops, or rubs. ABDOMEN: Soft, non tender and non distended. No rebound or guarding, and no masses palpated. Bowel Sounds normal. MUSCULOSKELETAL: bilateral BKA NEUROLOGIC EXAM: Awake PSYCHIATRIC: Stable mood SKIN: No obvious lesions - Labs CBC & Chem 7: 09/13/20 10:07 09/14/20 19:57 Labs: Abnormal lab results 09/14/20 09/14/20 09/14/20 Range/Units 19:57 19:57 23:02 PT 19.4 H (12.2-14.9) Sec. INR 1.62 H (0.87-1.13) Chloride 117.8 H (98-107) mmol/L Carbon Dioxide 10 L (22-30) mmol/L BUN 26 H (7-17) mg/dL Creatinine 1.8 H (0.6-1.2) mg/dL Glucose 132 H (65-100) mg/dL POC Glucose 173 H (70-105) mg/dL Calcium 8.2 L (8.4-10.2) mg/dL 09/15/20 Range/Units 08:34 PT (12.2-14.9) Sec. INR (0.87-1.13) Chloride (98-107) mmol/L Carbon Dioxide (22-30) mmol/L BUN (7-17) mg/dL Creatinine (0.6-1.2) mg/dL Glucose (65-100) mg/dL POC Glucose 151 H (70-105) mg/dL Calcium (8.4-10.2) mg/dL
[2020-09-15] MEDS: INSULIN GLARGINE 100 UNITS/ML SUB-Q SCH (22:36)
[2020-09-15] MEDS: SODIUM BICARBONATE 650 MG TAB PO SCH (22:37)
[2020-09-16] MEDS: INSULIN LISPRO 100 UNIT/ML VIAL 3 mL SUB-Q SCH ×4 (09:19→22:41)
[2020-09-16] MEDS: PANTOPRAZOLE 40 MG TAB PO SCH ×2 (09:20→18:44)
--- NOTE | 2020-09-16 09:55 | Progress Note ---
Assessment and Plan 1. Acute kidney injury: DIRK secondary to combination of Vasomotor nephropathy and severe sepsis. Renal US negative for hydro. Monitor renal function. Creatinine leveled off at 1.8. Prior Creatinine was 1.2 in 2014. Likely CKD stage 4. Renal prognosis is guarded. Avoid nephrotoxic agents. Meds dosage based on GFR. Labs from today is still pending. 2. FEN: Mild hyperkalemia, improved, monitor. Hyperchloremic Metabolic acidosis, on Potassium and Sodium bicarbonate, monitor. Hypernatremia, sodium level has improved, monitor. On HCTZ and Metolazone. Monitor lytes. 3. Nephrotic syndrome: Likely diabetic nephropathy. DEMARCUS, ANCA, complements, GBM Ab and SPEP re-ordered. 4. Severe sepsis, POA: Presented with hypothermia, hypotension. Likely secondary to bilateral pneumonia. 5. Severe COVID infection: Followed by ID. 6. Bilateral LE DVT, POA. 7. Microcytic anemia, POA: S/p PRBC. Monitor. Followed by GI. 8. Thrombocytopenia, POA. 9. Acute diarrhea: Likely associated to COVID-19 infection. C. difficile test negative. Subjective: Patient was seen and examined at the bedside. C/o nose bleed, stopped now. Examination: General appearance: well-developed, appears stated age, no distress, obese HEENT: JAYCE, dried blood from the nostril Neck: supple Respiratory: ctab Cardiology: regular, S1S2, no murmur Gastrointestinal: normoactive bowel sounds, no tenderness, not distended Integumentary: no obvious rash Neurologic: alert, moving extremities, confusion noted Ext: no edema, b/l BKA Subjective Date of service: 09/16/20 Principal diagnosis: Iron Def Anemia Objective - Vital Signs Vital signs: Vital Signs - 12hr 09/16/20 09/16/20 04:18 08:00 Temperature 97.7 F Pulse Rate 56 L 74 Respiratory 20 Rate Blood Pressure 129/52 O2 Sat by Pulse 97 Oximetry - Lab 09/16/20 13:44 09/16/20 13:44 Most recent lab results Calcium 8.2 mg/dL (8.4-10.2) L 09/14/20 19:57 Phosphorus 3.50 mg/dL (2.5-4.5) 09/06/20 06:43 Magnesium 2.20 mg/dL (1.7-2.3) 09/14/20 19:57 Urine Creatinine 43.2 mg/dL (0.1-20.0) H 09/06/20 06:52 Urine Sodium 84 mmol/L 09/06/20 06:52 Urine Total Protein 298 mg/dL (5-11.8) H 09/06/20 06:52 Medications & Allergies - Medications Allergies/Adverse Reactions: Allergies No Known Allergies Allergy (Unverified 02/14/14 19:23) Home Medications: Home Medications Medication Instructions Recorded Confirmed Last Taken Type Aspirin [[place] Aspirin] 81 mg PO DAILY 02/14/14 02/22/14 02/14/14 11:00 History Ferrous Sulfate [Feosol 325mg] 325 mg PO DAILY 02/14/14 02/22/14 02/14/14 11:00 History Sertraline [Zoloft] 50 mg PO DAILY 02/14/14 02/22/14 02/14/14 11:00 History amLODIPine 5 mg PO DAILY 02/14/14 02/22/14 02/14/14 11:00 History hydroCHLOROthiazide 25 mg PO DAILY 02/14/14 02/22/14 02/14/14 11:00 History [Hydrochlorothiazide] lisinopriL [Zestril TAB] 10 mg PO DAILY 02/14/14 02/22/14 02/14/14 11:00 History Insulin NPH Hum/Reg Insulin Hm 100 units SQ BID 02/22/14 02/23/14 Unknown History [Humulin 70-30 Vial] Insulin Regular, Human [HumuLIN R] 7 unit SQ AC 02/22/14 02/23/14 Unknown History Active Medications: Generic Name Dose Route Start Last Admin Trade Name Freq PRN Reason Stop Dose Admin Acetaminophen 650 mg 09/02/20 00:30 09/05/20 22:50 Tylenol PO 650 mg Q6H PRN Administration Pain, Mild (1-3) Aspirin 325 mg 09/09/20 12:00 09/15/20 10:53 Ecotrin PO Not Given QDAY JAE Calcitriol 0.5 mcg 09/05/20 13:00 09/15/20 10:54 Rocaltrol PO Not Given QDAY [facility] Dextrose 50 ml 09/11/20 19:09 D50w (25gm) Syringe IV Q30MIN PRN Hypoglycemia Protocol Ferrous Sulfate 325 mg 09/02/20 10:00 09/15/20 10:53 Feosol PO Not Given DAILY [facility] Haloperidol Lactate 5 mg 09/11/20 19:10 Haldol IM Q6H PRN Agitation Hydralazine HCl 10 mg 09/10/20 22:23 09/14/20 05:46 Apresoline IV 10 mg Q6H PRN Administration Blood Pressure Hydrochlorothiazide 25 mg 09/11/20 12:00 09/15/20 10:58 Hctz PO Not Given QDAY [facility] Hydromorphone HCl 0.25 mg 09/02/20 00:30 09/05/20 23:28 Dilaudid IV 0.25 mg Q4H PRN Administration Pain, Moderate (4-6) Insulin Glargine 14 units 09/07/20 22:00 09/15/20 22:36 Lantus SUB-Q Not Given QHS [facility] Insulin Human Lispro 0 unit 09/03/20 11:30 09/16/20 09:19 Humalog SUB-Q Not Given ACHS [facility] Protocol Metolazone 10 mg 09/07/20 10:00 09/15/20 10:58 Zaroxolyn PO Not Given QDAY [facility] Multivitamins 1 each 09/06/20 10:00 09/15/20 10:58 Theragran Tab PO Not Given QDAY [facility] Pantoprazole Sodium 40 mg 09/14/20 16:30 09/16/20 09:20 Protonix PO 40 mg BIDAC JAE Administration Potassium Bicarbonate 50 meq 09/10/20 22:00 09/15/20 22:35 Klor-Con PO 50 meq BID JAE Administration Sertraline HCl 50 mg 09/02/20 10:00 09/15/20 10:53 Zoloft PO Not Given DAILY [facility] Sodium Bicarbonate 650 mg 09/15/20 22:00 09/15/20 22:37 Sodium Bicarbonate PO 650 mg BID JAE Administration Sodium Chloride 10 ml 09/02/20 10:00 09/15/20 22:37 Sodium Chloride Flush Syringe 10 Ml IV 10 ml BID JAE Administration Sodium Chloride 10 ml 09/02/20 00:30 Sodium Chloride Flush Syringe 10 Ml IV PRN PRN LINE FLUSH
[2020-09-16] MEDS: MULTIVITAMINS ,THERAPEUTIC TAB PO SCH (10:42)
[2020-09-16] MEDS: hydroCHLOROthiazide 25 MG TAB PO SCH (10:42)
[2020-09-16] MEDS: FERROUS SULFATE 325 MG TAB PO SCH (10:42)
[2020-09-16] MEDS: metOLazone 5 MG TAB PO SCH (10:42)
[2020-09-16] MEDS: SERTRALINE 50 MG TAB PO SCH (10:42)
[2020-09-16] MEDS: CALCITRIOL 0.5 MCG CAP PO SCH (10:42)
[2020-09-16] MEDS: ASPIRIN EC 325 MG TAB PO SCH (10:42)
[2020-09-16] MEDS: SODIUM BICARBONATE 650 MG TAB PO SCH ×2 (10:42→22:44)
[2020-09-16] MEDS: K-LYTE 25 MEQ TABLET EFF PO SCH ×2 (10:44→22:43)
[2020-09-16 13:58] LABS: Hemoglobin 7.3 gm/dl (10.1-14.3); Mean Corpuscular HGB Conc 33 % (30-34); Mean Corpuscular Volume 83 fl (79-97); Red Blood Count 2.67 M/mm3 (3.65-5.03)
[2020-09-16 14:00] LABS: Red Cell Distribution Width 29.3 % (13.2-15.2)
[2020-09-16 14:47] LABS: Platelet Count 65 K/mm3 (140-440)
--- NOTE | 2020-09-16 15:37 | Progress Note ---
Assessment and Plan -- Acute delirium/acute metabolic encephalopathy Etiology unknown, likely metabolic as needed haldol, placed on restraint per daughter she is now at her baseline --Sepsis Due to COVID-19 pneumonia Blood culture NTD ID recommendations appreciated --COVID-19 pneumonia, POA Coronavirus protocol: Coronavirus PCR is positive, contact precaution, isolation precautions, prone positioning while in bed, Not a candidate for remdesivir due to renal failure Continue dexamethasone s/p convalescent plasma --Acute on chronic anemia Due to chronic GI bleed and iron deficiency Status post transfusion of 3 units PRBC, PPI. Continue to monitor for GI bleed As per GI, does not look like patient is having GI bleed at this time Advance diet as tolerated --Possible GI bleed, chronic Advance diet, GI on board Recommended to manage medically --Acute kidney injury (DIRK) with acute tubular necrosis (ATN) Continue to monitor renal function Nephrology following closely --Hypernatremia Continue isotonic solution Nephrology on board --Bilateral lower extremity DVT, chronic Consulted vascular surgeon for consideration of IVC filter placement. As per vascular surgery, patient is not a good candidate for IVC filter placement INR 2.74. GI recommended to treat with aspirin only --Diabetes Current Visit: Yes Status: Acute Plan to address problem: Sliding-scale insulin therapy, Accu-Chek, hypoglycemia protocol, consistent carbohydrate diet. --h/o tobacco --DVT prophylaxis, Anticoagulation --full code status Brief History; 64 YO Female with HTN, DM, Anemia, PVD, Nicotine Dependence, positive coronaviru s test recently at [place] presented to the emergency room for further evaluation. Patient states that she has experienced subjective fever, generalized weakness, body aches, shortness of breath, nausea, multiple loose stools, lower extremity edema over the past 1 week with progressively worsening symptoms over the past 3 to 4 days prior to presentation. Here, patient found to be hypotensive with a systolic blood pressure ranging from 53-94. Patient was also hypothermic with a body temperature of 93.3 F. Patient met criteria for sepsis protocol and found to have bilateral pneumonia, metabolic acidosis, acute kidney injury. Patient admitted to telemetry due to increased risk of multisystem decompensation. Patient initiated on coronavirus protocol. Coronavirus PCR has been ordered, Patient remained hypotensive in spite of IV fluid resuscitation therapy. Patient subsequently upgraded to IMCU. daily course: 09/03. While in the ER, patient had an ultrasound Doppler performed that showed bilateral DVT involving the iliac veins. Patient was started on heparin drip. ID consulted for COVID-19 and nephrology consulted for DIRK. Patient seen and examined at bedside this morning. She has no complaints this morning. Her hemoglobin dropped to 6.4 this morning. Patient will get transfused 1 unit of PRBCs. Later this p.m., was notified by nurse that patient is having tarry dark stool and hematemesis. Heparin drip discontinued. Patient started on PPI drip and made n.p.o. GI is has been consulted. Patient will need to have an upper endoscopy. She has bilateral lower extremity DVT and will need vascular surgery evaluation to determine if she is a candidate for IVC filt er placement. 09/04. Patient seen and examined at bedside this morning. Labs reviewed showed hemoglobin 5.3. Patient will receive 2 units PRBCs. FFP also ordered. GI evaluation pending. Continue PPIs. Vascular surgeon to see to determine if patient is a candidate for IVC filter placement for DVT. 09/05. Hb stable this morning. GI on board. On PPI drip. 09/06. Gastroenterology and vascular surgery recommendations reviewed. Patient not a good candidate for IVC filter placement due to location of the clot/thrombosis. Plan is for patient to have anticoagulation on while monitoring hemoglobin. Patient's INR is more than 2 at this time so we will hold anticoagulation for now and monitor hemoglobin. Plan to initiate anticoagulation when INR is less than 2. We will preferably use heparin products as she has a high chance of bleeding. Continue to monitor hemoglobin. Hb 7.3 this a.m. 09/07. Hemoglobin 8.2 this AM. No clear signs of GI bleed. Her INR is 2.74. No need for initiation of AC for now as she INR is already therapeutic. Plan is to monitor for bleeding and if she remains stable, she will be started on anticoagulation for her bilateral DVT. Vascular surgery following-patient not a candidate for IVC catheter placement. GI recommendations appreciated 09/08: Patient is nonreactive to COVID-19 antibody, per ID order for convalescent plasma. Continue supportive care, follow clinically 09/09: Pending convalescent plasma transfusion, continue to follow inflammatory markers. Monitor H&H. Plan to start on aspirin tomorrow if INR and H&H stable 09/10: hb dropped to 6.8, transfuse one unit, discussed with GI - no plan for endoscopy now, cont to follow clinically 09/11: patient didn't get transfusion yesterday. became very agitated today, ordered as needed haldol, cont iv fluid. monitor clinically 09/12: placed on restrain o/n. cont supportive care, lost IV line - ordered for midline. pending PRBC transfusion 09/13: monitor h/h, patient more clam today, continue supportive care, follow BMP - Na and Cr has been improving 09/14: cont to monitor, follow BMP, follow h/h. oral intake improved per RN 09/15: If h/h stable and Cr cont to improves will d/c in a day or two 09/16; spoke with daughter and updated her with patient's clinical condition. family willing to accept the patient tomorrow. RN reported some Nose bleeding earlier today, but now resolved. repeat h/h stable Subjective Date of service: 09/16/20 Principal diagnosis: Iron Def Anemia Objective - Exam Narrative Exam: GENERAL: Awake, HEAD: No signs of head trauma. EYES: Pupils are equal. Extraocular motions intact. MOUTH: Oropharynx is normal. NECK: No adenopathy, no JVD. CHEST: Chest with diminished breath sounds bilaterally. No wheezes, rales, or rhonchi. CARDIAC: Regular rate and rhythm. S1 and S2, without murmurs, gallops, or rubs. ABDOMEN: Soft, non tender and non distended. No rebound or guarding, and no masses palpated. Bowel Sounds normal. MUSCULOSKELETAL: bilateral BKA NEUROLOGIC EXAM: Awake PSYCHIATRIC: Stable mood SKIN: No obvious lesions - Constitutional Vitals: Vital Signs - 12hr 09/16/20 09/16/20 09/16/20 04:18 08:00 11:00 Temperature 97.7 F Pulse Rate 56 L 74 Respiratory 20 Rate Blood Pressure 129/52 O2 Sat by Pulse 97 94 Oximetry - Labs CBC & Chem 7: 09/16/20 13:44 09/17/20 03:15 Labs: Abnormal lab results 09/16/20 09/16/20 09/16/20 Range/Units 09:30 13:17 13:44 RBC (3.65-5.03) M/mm3 Hgb (10.1-14.3) gm/dl Hct (30.3-42.9) % MCH (28-32) pg RDW (13.2-15.2) % Plt Count (140-440) K/mm3 Chloride 115.8 H (98-107) mmol/L Carbon Dioxide 16 L (22-30) mmol/L BUN 53 H (7-17) mg/dL Creatinine 1.8 H (0.6-1.2) mg/dL Glucose 148 H (65-100) mg/dL POC Glucose 114 H 130 H (70-105) mg/dL Calcium 8.0 L (8.4-10.2) mg/dL 09/16/20 Range/Units 13:44 RBC 2.67 L (3.65-5.03) M/mm3 Hgb 7.3 L (10.1-14.3) gm/dl Hct 22.0 L (30.3-42.9) % MCH 27 L (28-32) pg RDW 29.3 H (13.2-15.2) % Plt Count 65 L (140-440) K/mm3 Chloride (98-107) mmol/L Carbon Dioxide (22-30) mmol/L BUN (7-17) mg/dL Creatinine (0.6-1.2) mg/dL Glucose (65-100) mg/dL POC Glucose (70-105) mg/dL Calcium (8.4-10.2) mg/dL
[2020-09-16] MEDS: INSULIN GLARGINE 100 UNITS/ML SUB-Q SCH (22:43)
[2020-09-17 03:54] LABS: Calcium 7.8 mg/dL (8.4-10.2)
--- NOTE | 2020-09-17 08:48 | Progress Note ---
Assessment and Plan 1. Acute kidney injury: DIRK secondary to combination of Vasomotor nephropathy and severe sepsis. Renal US negative for hydro. Monitor renal function. Creatinine leveled off at 1.8. Prior Creatinine was 1.2 in 2014. Likely CKD stage 4. Renal prognosis is guarded. Avoid nephrotoxic agents. Meds dosage based on GFR. Labs from today is still pending. 2. FEN: Mild hyperkalemia, improved, monitor. Hyperchloremic Metabolic acidosis, on Potassium and Sodium bicarbonate, monitor. Hypernatremia, sodium level is increasing now, monitor. On HCTZ and Metolazone. Patient refusing meds. Monitor lytes. 3. Nephrotic syndrome: Likely diabetic nephropathy. DEMACRUS, ANCA, complements, GBM Ab and SPEP re-ordered. 4. Severe sepsis, POA: Presented with hypothermia, hypotension. Likely secondary to bilateral pneumonia. 5. Severe COVID infection: Followed by ID. 6. Bilateral LE DVT, POA. 7. Microcytic anemia, POA: S/p PRBC. Monitor. Followed by GI. 8. Thrombocytopenia, POA. 9. Acute diarrhea: Likely associated to COVID-19 infection. C. difficile test negative. Subjective: Patient was seen and examined at the bedside. Examination: General appearance: well-developed, appears stated age, no distress, obese HEENT: JAYCE, dried blood from the nostril Neck: supple Respiratory: ctab Cardiology: regular, S1S2, no murmur Gastrointestinal: normoactive bowel sounds, no tenderness, not distended Integumentary: no obvious rash Neurologic: alert, moving extremities, confusion noted Ext: trace dependent edema, b/l BKA Subjective Date of service: 09/17/20 Principal diagnosis: Iron Def Anemia Objective - Vital Signs Vital signs: Vital Signs - 12hr 09/16/20 09/17/20 09/17/20 22:30 00:00 04:44 Temperature 98.5 F 98.8 F Pulse Rate 65 56 L 60 Respiratory 18 18 Rate Blood Pressure 143/55 145/63 O2 Sat by Pulse 100 94 Oximetry - Lab 09/17/20 13:49 09/17/20 13:49 Most recent lab results Calcium 7.8 mg/dL (8.4-10.2) L 09/17/20 03:15 Phosphorus 3.50 mg/dL (2.5-4.5) 09/06/20 06:43 Magnesium 2.20 mg/dL (1.7-2.3) 09/14/20 19:57 Urine Creatinine 43.2 mg/dL (0.1-20.0) H 09/06/20 06:52 Urine Sodium 84 mmol/L 09/06/20 06:52 Urine Total Protein 298 mg/dL (5-11.8) H 09/06/20 06:52 Medications & Allergies - Medications Allergies/Adverse Reactions: Allergies No Known Allergies Allergy (Unverified 02/14/14 19:23) Home Medications: Home Medications Medication Instructions Recorded Confirmed Last Taken Type Aspirin [[place] Aspirin] 81 mg PO DAILY 02/14/14 02/22/14 02/14/14 11:00 History Ferrous Sulfate [Feosol 325mg] 325 mg PO DAILY 02/14/14 02/22/14 02/14/14 11:00 History Sertraline [Zoloft] 50 mg PO DAILY 02/14/14 02/22/14 02/14/14 11:00 History amLODIPine 5 mg PO DAILY 02/14/14 02/22/14 02/14/14 11:00 History hydroCHLOROthiazide 25 mg PO DAILY 02/14/14 02/22/14 02/14/14 11:00 History [Hydrochlorothiazide] Aspirin EC [Ecotrin] 325 mg PO QDAY #60 tablet 09/17/20 Unknown Rx Insulin Glargine [Lantus VIAL] 14 units SUB-Q QHS 30 Days 09/17/20 Unknown Rx Pantoprazole [Protonix TAB] 40 mg PO BIDAC #60 tablet 09/17/20 Unknown Rx calcitrioL [Rocaltrol] 0.5 mcg PO QDAY #30 capsule 09/17/20 Unknown Rx metOLazone [Zaroxolyn] 10 mg PO QDAY #30 tablet 09/17/20 Unknown Rx Active Medications: Generic Name Dose Route Start Last Admin Trade Name Freq PRN Reason Stop Dose Admin Acetaminophen 650 mg 09/02/20 00:30 09/05/20 22:50 Tylenol PO 650 mg Q6H PRN Administration Pain, Mild (1-3) Aspirin 325 mg 09/09/20 12:00 09/16/20 10:42 Ecotrin PO 325 mg QDAY JAE Administration Calcitriol 0.5 mcg 09/05/20 13:00 11/18/20 10:42 Rocaltrol PO 0.5 mcg QDAY JAE Administration Dextrose 50 ml 09/11/20 19:09 D50w (25gm) Syringe IV Q30MIN PRN Hypoglycemia Protocol Ferrous Sulfate 325 mg 09/02/20 10:00 09/16/20 10:42 Feosol PO 325 mg DAILY JAE Administration Haloperidol Lactate 5 mg 09/11/20 19:10 Haldol IM Q6H PRN Agitation Hydralazine HCl 10 mg 09/10/20 22:23 09/14/20 05:46 Apresoline IV 10 mg Q6H PRN Administration Blood Pressure Hydrochlorothiazide 25 mg 09/11/20 12:00 09/16/20 10:42 Hctz PO 25 mg QDAY JAE Administration Hydromorphone HCl 0.25 mg 09/02/20 00:30 09/05/20 23:28 Dilaudid IV 0.25 mg Q4H PRN Administration Pain, Moderate (4-6) Insulin Glargine 14 units 09/07/20 22:00 09/16/20 22:43 Lantus SUB-Q 14 units QHS JAE Administration Insulin Human Lispro 0 unit 09/03/20 11:30 09/16/20 22:41 Humalog SUB-Q Not Given ACHS [facility] Protocol Metolazone 10 mg 09/07/20 10:00 09/16/20 10:42 Zaroxolyn PO 10 mg QDAY JAE Administration Multivitamins 1 each 09/06/20 10:00 09/16/20 10:42 Theragran Tab PO 1 each QDAY JAE Administration Pantoprazole Sodium 40 mg 09/14/20 16:30 09/16/20 18:44 Protonix PO 40 mg BIDAC JAE Administration Potassium Bicarbonate 50 meq 09/10/20 22:00 09/16/20 22:43 Klor-Con PO Not Given BID JAE Sertraline HCl 50 mg 09/02/20 10:00 09/16/20 10:42 Zoloft PO 50 mg DAILY JAE Administration Sodium Bicarbonate 650 mg 09/15/20 22:00 09/16/20 22:44 Sodium Bicarbonate PO 650 mg BID JAE Administration Sodium Chloride 10 ml 09/02/20 10:00 09/16/20 22:55 Sodium Chloride Flush Syringe 10 Ml IV 10 ml BID JAE Administration Sodium Chloride 10 ml 09/02/20 00:30 Sodium Chloride Flush Syringe 10 Ml IV PRN PRN LINE FLUSH
[2020-09-17] MEDS: PANTOPRAZOLE 40 MG TAB PO SCH (09:06)
[2020-09-17] MEDS: INSULIN LISPRO 100 UNIT/ML VIAL 3 mL SUB-Q SCH ×3 (09:06→17:46)
[2020-09-17] MEDS ORDERED: SODIUM BICARB 8.4% 50 MEQ/50 ML SYRINGE IV ONE ×4 (10:25→12:35)
[2020-09-17] MEDS ORDERED: EPINEPHrine 1 MG/10 ML SYRINGE ONE (10:25)
[2020-09-17] MEDS ORDERED: SODIUM CHLORIDE 0.9% 1000 ML 1,000 ML ONE (10:59)
[2020-09-17] MEDS ORDERED: NORepinephrine/NS 4 MG-250 ML 4 MG/250 ML BAG IV ONE (11:00)
[2020-09-17] MEDS: NORepinephrine/NS 4 MG-250 ML 4 MG/250 ML BAG IV SCH ×2 (11:00→18:15)
--- NOTE | 2020-09-17 11:34 | XRay Report ---
CHEST 1 VIEW INDICATION / CLINICAL INFORMATION: ett placement. COMPARISON: 09/01/2020 FINDINGS: SUPPORT DEVICES: Endotracheal tube HEART / MEDIASTINUM: No significant abnormality. LUNGS / PLEURA: Bilateral airspace and interstitial disease No pneumothorax. ADDITIONAL FINDINGS: No significant additional findings. IMPRESSION: Endotracheal tube is in good position. Bilateral airspace and interstitial disease has worsened sligh tly since 09/01/2020. Signer Name: Amilcar Arroyo MD FACR Signed: 09/17/2020 11:30 AM Workstation Name: [id number]
[2020-09-17] MEDS ORDERED: SODIUM CHLORIDE 0.9% 500 ML 500 ML ONE (11:45)
[2020-09-17] MEDS ORDERED: SODIUM CHLORIDE 0.9% 500 ML 500 ML IV NR (11:51)
--- NOTE | 2020-09-17 12:42 | Consultation ---
History of Present Illness Consult date: 09/17/20 Requesting physician: SARAH CUETO Reason for consult: other (Cardiac Arrest) History of present illness: 64 y/o female admitted since 09/01, diagnosed with COVID 19 who had cardiac arrest this am. Code note not done yet. Per nurse at bedside had 2 epi with ROSC. Patient also has suffered from renal disease and GI bleeding since admission along with LE DVT. Unable to tolerate full dose anticoagulation. Patient is unresponsive on vent, no sedation. Past History Past Medical History: anemia, diabetes, hypertension, PVD, other (Erosive esophagitis - by EGD in 2014) Past Surgical History: Other (Bilateral BKA) Social history: single. denies: smoking, alcohol abuse Family history: hypertension Medications and Allergies Allergies Allergy/AdvReac Type Severity Reaction Status Date / Time No Known Allergies Allergy Unverified 02/14/14 19:23 Home Medications Medication Instructions Recorded Confirmed Last Taken Type Aspirin [[place] Aspirin] 81 mg PO DAILY 02/14/14 02/22/14 02/14/14 11:00 History Ferrous Sulfate [Feosol 325mg] 325 mg PO DAILY 02/14/14 02/22/14 02/14/14 11:00 History Sertraline [Zoloft] 50 mg PO DAILY 02/14/14 02/22/14 02/14/14 11:00 History amLODIPine 5 mg PO DAILY 02/14/14 02/22/14 02/14/14 11:00 History hydroCHLOROthiazide 25 mg PO DAILY 02/14/14 02/22/14 02/14/14 11:00 History [Hydrochlorothiazide] Aspirin EC [Ecotrin] 325 mg PO QDAY #60 tablet 09/17/20 Unknown Rx Insulin Glargine [Lantus VIAL] 14 units SUB-Q QHS 30 Days 09/17/20 Unknown Rx Pantoprazole [Protonix TAB] 40 mg PO BIDAC #60 tablet 09/17/20 Unknown Rx calcitrioL [Rocaltrol] 0.5 mcg PO QDAY #30 capsule 09/17/20 Unknown Rx metOLazone [Zaroxolyn] 10 mg PO QDAY #30 tablet 09/17/20 Unknown Rx Active Meds: Active Medications Acetaminophen (Tylenol) 650 mg PO Q6H PRN PRN Reason: Pain, Mild (1-3) Last Admin: 09/05/20 22:50 Dose: 650 mg Documented by: Aspirin (Ecotrin) 325 mg PO QDAY [facility] Last Admin: 09/16/20 10:42 Dose: 325 mg Documented by: Calcitriol (Rocaltrol) 0.5 mcg PO QDAY [facility] Last Admin: 09/16/20 10:42 Dose: 0.5 mcg Documented by: Dextrose (D50w (25gm) Syringe) 50 ml IV Q30MIN PRN; Protocol PRN Reason: Hypoglycemia Ferrous Sulfate (Feosol) 325 mg PO DAILY [facility] Last Admin: 09/16/20 10:42 Dose: 325 mg Documented by: Haloperidol Lactate (Haldol) 5 mg IM Q6H PRN PRN Reason: Agitation Hydralazine HCl (Apresoline) 10 mg IV Q6H PRN PRN Reason: Blood Pressure Last Admin: 09/14/20 05:46 Dose: 10 mg Documented by: Hydrochlorothiazide (Hctz) 25 mg PO QDAY [facility] Last Admin: 09/16/20 10:42 Dose: 25 mg Documented by: Hydromorphone HCl (Dilaudid) 0.25 mg IV Q4H PRN PRN Reason: Pain, Moderate (4-6) Last Admin: 09/05/20 23:28 Dose: 0.25 mg Documented by: Sodium Chloride (Nacl 0.9% 500 Ml) 500 mls @ 0 mls/hr IV ONCE NR Stop: 09/17/20 23:59 Insulin Glargine (Lantus) 14 units SUB-Q QHS [facility] Last Admin: 09/16/20 22:43 Dose: 14 units Documented by: Insulin Human Lispro (Humalog) 0 unit SUB-Q [facility]; Protocol Last Admin: 09/17/20 09:06 Dose: Not Given Documented by: Metolazone (Zaroxolyn) 10 mg PO QDAY [facility] Last Admin: 09/16/20 10:42 Dose: 10 mg Documented by: Multivitamins (Theragran Tab) 1 each PO QDAY [facility] Last Admin: 09/16/20 10:42 Dose: 1 each Documented by: Pantoprazole [facility] ([facility]ix) [facility] Last Admin: 09/17/20 09:06 Dose: 40 mg Documented by: Potassium Bicarbonate (Klor-Con) 50 meq PO BID [facility] Last Admin: 09/16/20 22:43 Dose: Not Given Documented by: Sertraline HCl (Zoloft) 50 mg PO DAILY [facility] Last Admin: 09/16/20 10:42 Dose: 50 mg Documented by: Sodium Bicarbonate (Sodium Bicarbonate 50meq Syringe) 50 meq IV ONCE ONE Stop: 09/17/20 12:36 Sodium Bicarbonate (Sodium Bicarbonate 50meq Syringe) 50 meq IV ONCE ONE Stop: 09/17/20 12:36 Sodium Chloride (Sodium Chloride Flush Syringe 10 Ml) 10 ml IV BID [facility] Last Admin: 09/16/20 22:55 Dose: 10 ml Documented by: Sodium Chloride (Sodium Chloride Flush Syringe 10 Ml) 10 ml IV PRN PRN PRN Reason: LINE FLUSH Review of Systems All systems: negative Physical Examination Vital signs: Vital Signs BP 84/51 09/01/20 21:20 General appearance: comatose ENT: other (orally intubated, not on sedation) Neck: supple Ascultation: Bilateral: clear Percussion: Bilateral: not dull Cardiovascular: regular rate and rhythm Extremities: other (bilateral amputee) Results - Laboratory Findings CBC and BMP: 09/16/20 13:44 09/17/20 03:15 ABG ABG pH 7.172 (7.320-7.450) L 09/17/20 11:46 POC ABG pCO2 38.9 mmHg (32.0-48.0) 09/17/20 11:46 POC ABG pO2 456.0 mmHg (83-108) H 09/17/20 11:46 POC ABG HCO3 13.9 09/17/20 11:46 PT/INR, D-dimer PT 19.4 Sec. (12.2-14.9) H 09/14/20 19:57 INR 1.62 (0.87-1.13) H 09/14/20 19:57 D-Dimer 1076.18 ng/mlDDU (0-234) H 09/01/20 21:55 Abnormal lab findings: Abnormal Labs 09/01/20 09/01/20 09/01/20 21:40 21:40 21:55 WBC RBC 3.42 L Hgb 7.9 L Hct 25.6 L MCV 75 L MCH 23 L RDW 35.7 H Plt Count 113 L Lymph % (Auto) [place] % (Auto) Lymph # (Auto) Seg Neutrophils % Seg Neuts % (Manual) 92.0 H Lymphocytes % (Manual) 5.0 L Nucleated RBC % Seg Neutrophils # Seg Neutrophils # Man Lymphocytes # (Manual) 0.3 L PT INR D-Dimer 1076.18 H Heparin Anti-Xa Level ABG pH POC ABG pO2 ABG Hemoglobin ABG Chloride ABG Glucose Sodium Potassium 5.1 H Chloride 117.5 H Carbon Dioxide 12 L BUN 51 H Creatinine 2.1 H Glucose POC Glucose Lactic Acid Calcium 7.8 L Magnesium Iron TIBC Ferritin AST 59 H Alkaline Phosphatase 242 H Lactate Dehydrogenase C-Reactive Protein NT-Pro-B Natriuret Pep Total Protein 5.3 L Albumin 2.5 L PTH Intact Arterial Blood Glucose Urine Creatinine Urine Total Protein Coronavirus (PCR) Crossmatch 09/01/20 09/01/20 09/01/20 21:55 21:55 21:55 WBC RBC Hgb Hct MCV MCH RDW Plt Count Lymph % (Auto) [place] % (Auto) Lymph # (Auto) Seg Neutrophils % Seg Neuts % (Manual) Lymphocytes % (Manual) Nucleated RBC % Seg Neutrophils # Seg Neutrophils # Man Lymphocytes # (Manual) PT INR D-Dimer Heparin Anti-Xa Level ABG pH POC ABG pO2 ABG Hemoglobin ABG Chloride ABG Glucose Sodium Potassium Chloride Carbon Dioxide BUN Creatinine Glucose POC Glucose Lactic Acid Calcium Magnesium Iron TIBC Ferritin 313.5 H AST Alkaline Phosphatase Lactate Dehydrogenase 435 H C-Reactive Protein 2.30 H NT-Pro-B Natriuret Pep 68651 H Total Protein Albumin PTH Intact Arterial Blood Glucose Urine Creatinine Urine Total Protein Coronavirus (PCR) Crossmatch 09/01/20 09/02/20 09/02/20 23:15 03:12 05:46 WBC RBC Hgb Hct MCV MCH RDW Plt Count Lymph % (Auto) [place] % (Auto) Lymph # (Auto) Seg Neutrophils % Seg Neuts % (Manual) Lymphocytes % (Manual) Nucleated RBC % Seg Neutrophils # Seg Neutrophils # Man Lymphocytes # (Manual) PT INR D-Dimer Heparin Anti-Xa Level ABG pH POC ABG pO2 ABG Hemoglobin ABG Chloride ABG Glucose Sodium Potassium Chloride Carbon Dioxide BUN Creatinine Glucose POC Glucose 65 L Lactic Acid 0.60 L Calcium Magnesium Iron TIBC Ferritin AST Alkaline Phosphatase Lactate Dehydrogenase C-Reactive Protein NT-Pro-B Natriuret Pep Total Protein Albumin PTH Intact Arterial Blood Glucose Urine Creatinine Urine Total Protein Coronavirus (PCR) Crossmatch See Detail 09/02/20 09/02/20 09/02/20 06:50 07:35 08:10 WBC RBC Hgb Hct MCV MCH RDW Plt Count Lymph % (Auto) [place] % (Auto) Lymph # (Auto) Seg Neutrophils % Seg Neuts % (Manual) Lymphocytes % (Manual) Nucleated RBC % Seg Neutrophils # Seg Neutrophils # Man Lymphocytes # (Manual) PT INR D-Dimer Heparin Anti-Xa Level ABG pH POC ABG pO2 ABG Hemoglobin ABG Chloride ABG Glucose Sodium Potassium Chloride Carbon Dioxide BUN Creatinine Glucose POC Glucose 60 L 116 H Lactic Acid 0.60 L Calcium Magnesium Iron TIBC Ferritin AST Alkaline Phosphatase Lactate Dehydrogenase C-Reactive Protein NT-Pro-B Natriuret Pep Total Protein Albumin PTH Intact Arterial Blood Glucose Urine Creatinine Urine Total Protein Coronavirus (PCR) Crossmatch 09/02/20 09/02/20 09/02/20 08:10 08:10 12:07 WBC RBC 3.34 L Hgb 7.6 L Hct 24.7 L MCV 74 L MCH 23 L RDW 35.8 H Plt Count 110 L Lymph % (Auto) [place] % (Auto) Lymph # (Auto) Seg Neutrophils % Seg Neuts % (Manual) 97.0 H Lymphocytes % (Manual) 2.0 L Nucleated RBC % Seg Neutrophils # Seg Neutrophils # Man Lymphocytes # (Manual) 0.1 L PT INR D-Dimer Heparin Anti-Xa Level ABG pH POC ABG pO2 ABG Hemoglobin ABG Chloride ABG Glucose Sodium Potassium 5.2 H Chloride 120.1 H Carbon Dioxide 11 L BUN 51 H Creatinine 2.0 H Glucose POC Glucose 121 H Lactic Acid Calcium 7.4 L Magnesium Iron TIBC Ferritin AST Alkaline Phosphatase Lactate Dehydrogenase C-Reactive Protein NT-Pro-B Natriuret Pep Total Protein Albumin PTH Intact Arterial Blood Glucose Urine Creatinine Urine Total Protein Coronavirus (PCR) Crossmatch 09/02/20 09/02/20 09/03/20 13:52 19:50 00:32 WBC RBC Hgb 7.9 L Hct 27.4 L MCV MCH RDW Plt Count 133 L Lymph % (Auto) [place] % (Auto) Lymph # (Auto) Seg Neutrophils % Seg Neuts % (Manual) Lymphocytes % (Manual) Nucleated RBC % Seg Neutrophils # Seg Neutrophils # Man Lymphocytes # (Manual) PT INR D-Dimer Heparin Anti-Xa Level 0.78 H ABG pH POC ABG pO2 ABG Hemoglobin ABG Chloride ABG Glucose Sodium Potassium Chloride Carbon Dioxide BUN Creatinine Glucose POC Glucose 206 H Lactic Acid Calcium Magnesium Iron TIBC Ferritin AST Alkaline Phosphatase Lactate Dehydrogenase C-Reactive Protein NT-Pro-B Natriuret Pep Total Protein Albumin PTH Intact Arterial Blood Glucose Urine Creatinine Urine Total Protein Coronavirus (PCR) Crossmatch 09/03/20 09/03/20 09/03/20 05:17 05:17 05:17 WBC RBC 2.87 L Hgb 6.4 L Hct 21.5 L MCV 75 L MCH 22 L RDW 35.3 H Plt Count Lymph % (Auto) [place] % (Auto) Lymph # (Auto) Seg Neutrophils % Seg Neuts % (Manual) 76.0 H Lymphocytes % (Manual) Nucleated RBC % Seg Neutrophils # Seg Neutrophils # Man 7.8 H Lymphocytes # (Manual) PT 17.0 H INR 1.35 H D-Dimer Heparin Anti-Xa Level 0.94 H ABG pH POC ABG pO2 ABG Hemoglobin ABG Chloride ABG Glucose Sodium 147 H Potassium 5.2 H Chloride 123.4 H Carbon Dioxide 11 L BUN 59 H Creatinine 2.0 H Glucose 204 H POC Glucose Lactic Acid Calcium 7.4 L Magnesium Iron TIBC Ferritin AST Alkaline Phosphatase Lactate Dehydrogenase C-Reactive Protein NT-Pro-B Natriuret Pep Total Protein Albumin PTH Intact Arterial Blood Glucose Urine Creatinine Urine Total Protein Coronavirus (PCR) Crossmatch 09/03/20 09/03/20 09/03/20 06:05 08:48 11:43 WBC RBC Hgb Hct MCV MCH RDW Plt Count Lymph % (Auto) [place] % (Auto) Lymph # (Auto) Seg Neutrophils % Seg Neuts % (Manual) Lymphocytes % (Manual) Nucleated RBC % Seg Neutrophils # Seg Neutrophils # Man Lymphocytes # (Manual) PT INR D-Dimer Heparin Anti-Xa Level ABG pH POC ABG pO2 ABG Hemoglobin ABG Chloride ABG Glucose Sodium Potassium Chloride Carbon Dioxide BUN Creatinine Glucose POC Glucose 190 H 223 H 242 H Lactic Acid Calcium Magnesium Iron TIBC Ferritin AST Alkaline Phosphatase Lactate Dehydrogenase C-Reactive Protein NT-Pro-B Natriuret Pep Total Protein Albumin PTH Intact Arterial Blood Glucose Urine Creatinine Urine Total Protein Coronavirus (PCR) Crossmatch 11/05/20 11/05/20 11/06/20 16:21 23:37 05:18 WBC RBC 2.26 L Hgb 5.3 L* Hct 17.1 L* MCV 76 L MCH 24 L RDW 33.7 H Plt Count Lymph % (Auto) 8.0 L [place] % (Auto) 7.5 H Lymph # (Auto) 0.7 L Seg Neutrophils % 84.3 H Seg Neuts % (Manual) Lymphocytes % (Manual) Nucleated RBC % Seg Neutrophils # Seg Neutrophils # Man Lymphocytes # (Manual) PT INR D-Dimer Heparin Anti-Xa Level ABG pH POC ABG pO2 ABG Hemoglobin ABG Chloride ABG Glucose Sodium Potassium Chloride Carbon Dioxide BUN Creatinine Glucose POC Glucose 280 H 228 H Lactic Acid Calcium Magnesium Iron TIBC Ferritin AST Alkaline Phosphatase Lactate Dehydrogenase C-Reactive Protein NT-Pro-B Natriuret Pep Total Protein Albumin PTH Intact Arterial Blood Glucose Urine Creatinine Urine Total Protein Coronavirus (PCR) Crossmatch 09/04/20 09/04/20 09/04/20 05:18 05:18 05:18 WBC RBC Hgb Hct MCV MCH RDW Plt Count Lymph % (Auto) [place] % (Auto) Lymph # (Auto) Seg Neutrophils % Seg Neuts % (Manual) Lymphocytes % (Manual) Nucleated RBC % Seg Neutrophils # Seg Neutrophils # Man Lymphocytes # (Manual) PT 19.6 H INR 1.62 H D-Dimer Heparin Anti-Xa Level ABG pH POC ABG pO2 ABG Hemoglobin ABG Chloride ABG Glucose Sodium 149 H Potassium 5.2 H Chloride 125.6 H Carbon Dioxide 14 L BUN 86 H Creatinine 2.3 H Glucose 232 H POC Glucose Lactic Acid Calcium 7.5 L Magnesium Iron TIBC Ferritin AST Alkaline Phosphatase 144 H Lactate Dehydrogenase C-Reactive Protein NT-Pro-B Natriuret Pep Total Protein 4.1 L D Albumin 1.9 L PTH Intact 820.4 H Arterial Blood Glucose Urine Creatinine Urine Total Protein Coronavirus (PCR) Crossmatch 09/04/20 09/04/20 09/04/20 06:33 09:03 12:08 WBC RBC Hgb Hct MCV MCH RDW Plt Count Lymph % (Auto) [place] % (Auto) Lymph # (Auto) Seg Neutrophils % Seg Neuts % (Manual) Lymphocytes % (Manual) Nucleated RBC % Seg Neutrophils # Seg Neutrophils # Man Lymphocytes # (Manual) PT INR D-Dimer Heparin Anti-Xa Level ABG pH POC ABG pO2 ABG Hemoglobin ABG Chloride ABG Glucose Sodium Potassium Chloride Carbon Dioxide BUN Creatinine Glucose POC Glucose 224 H 264 H 247 H Lactic Acid Calcium Magnesium Iron TIBC Ferritin AST Alkaline Phosphatase Lactate Dehydrogenase C-Reactive Protein NT-Pro-B Natriuret Pep Total Protein Albumin PTH Intact Arterial Blood Glucose Urine Creatinine Urine Total Protein Coronavirus (PCR) Crossmatch 09/04/20 09/04/20 09/04/20 15:01 18:58 22:28 WBC RBC Hgb 8.7 L D Hct 27.4 L D MCV MCH RDW Plt Count Lymph % (Auto) [place] % (Auto) Lymph # (Auto) Seg Neutrophils % Seg Neuts % (Manual) Lymphocytes % (Manual) Nucleated RBC % Seg Neutrophils # Seg Neutrophils # Man Lymphocytes # (Manual) PT INR D-Dimer Heparin Anti-Xa Level ABG pH POC ABG pO2 ABG Hemoglobin ABG Chloride ABG Glucose Sodium Potassium Chloride Carbon Dioxide BUN Creatinine Glucose POC Glucose 202 H 181 H Lactic Acid Calcium Magnesium Iron TIBC Ferritin AST Alkaline Phosphatase Lactate Dehydrogenase C-Reactive Protein NT-Pro-B Natriuret Pep Total Protein Albumin PTH Intact Arterial Blood Glucose Urine Creatinine Urine Total Protein Coronavirus (PCR) Crossmatch 09/05/20 09/05/20 09/05/20 00:55 07:56 08:28 WBC RBC Hgb 7.8 L Hct 23.8 L MCV MCH RDW Plt Count Lymph % (Auto) [place] % (Auto) Lymph # (Auto) Seg Neutrophils % Seg Neuts % (Manual) Lymphocytes % (Manual) Nucleated RBC % Seg Neutrophils # Seg Neutrophils # Man Lymphocytes # (Manual) PT 23.2 H INR 2.01 H D-Dimer Heparin Anti-Xa Level ABG pH POC ABG pO2 ABG Hemoglobin ABG Chloride ABG Glucose Sodium Potassium Chloride Carbon Dioxide BUN Creatinine Glucose POC Glucose 176 H Lactic Acid Calcium Magnesium Iron TIBC Ferritin AST Alkaline Phosphatase Lactate Dehydrogenase C-Reactive Protein NT-Pro-B Natriuret Pep Total Protein Albumin PTH Intact Arterial Blood Glucose Urine Creatinine Urine Total Protein Coronavirus (PCR) Crossmatch 09/05/20 09/05/20 09/05/20 08:28 08:28 12:14 WBC 11.8 H RBC 2.93 L Hgb 7.7 L Hct 23.2 L MCV MCH 26 L RDW 28.4 H Plt Count Lymph % (Auto) 9.2 L [place] % (Auto) Lymph # (Auto) 1.1 L Seg Neutrophils % 85.4 H Seg Neuts % (Manual) Lymphocytes % (Manual) Nucleated RBC % Seg Neutrophils # 10.1 H Seg Neutrophils # Man Lymphocytes # (Manual) PT INR D-Dimer Heparin Anti-Xa Level ABG pH POC ABG pO2 ABG Hemoglobin ABG Chloride ABG Glucose Sodium 152 H Potassium Chloride 125.7 H Carbon Dioxide 13 L BUN 86 H Creatinine 2.3 H Glucose 152 H POC Glucose 131 H Lactic Acid Calcium 7.9 L Magnesium Iron TIBC Ferritin AST Alkaline Phosphatase 155 H Lactate Dehydrogenase C-Reactive Protein NT-Pro-B Natriuret Pep Total Protein 4.6 L Albumin 2.5 L PTH Intact Arterial Blood Glucose Urine Creatinine Urine Total Protein Coronavirus (PCR) Crossmatch 09/05/20 09/05/20 09/06/20 18:58 21:22 00:03 WBC RBC Hgb 8.0 L 7.4 L Hct 25.7 L 22.8 L MCV MCH RDW Plt Count Lymph % (Auto) [place] % (Auto) Lymph # (Auto) Seg Neutrophils % Seg Neuts % (Manual) Lymphocytes % (Manual) Nucleated RBC % Seg Neutrophils # Seg Neutrophils # Man Lymphocytes # (Manual) PT INR D-Dimer Heparin Anti-Xa Level ABG pH POC ABG pO2 ABG Hemoglobin ABG Chloride ABG Glucose Sodium Potassium Chloride Carbon Dioxide BUN Creatinine Glucose POC Glucose 171 H Lactic Acid Calcium Magnesium Iron TIBC Ferritin AST Alkaline Phosphatase Lactate Dehydrogenase C-Reactive Protein NT-Pro-B Natriuret Pep Total Protein Albumin PTH Intact Arterial Blood Glucose Urine Creatinine Urine Total Protein Coronavirus (PCR) Crossmatch 09/06/20 09/06/20 09/06/20 06:43 06:43 06:43 WBC RBC 2.76 L Hgb 7.3 L Hct 21.9 L MCV MCH 26 L RDW 29.0 H Plt Count Lymph % (Auto) [place] % (Auto) Lymph # (Auto) Seg Neutrophils % Seg Neuts % (Manual) 94.0 H Lymphocytes % (Manual) 2.0 L Nucleated RBC % 3.0 H Seg Neutrophils # Seg Neutrophils # Man 8.6 H Lymphocytes # (Manual) 0.2 L PT 26.4 H INR 2.37 H D-Dimer Heparin Anti-Xa Level ABG pH POC ABG pO2 ABG Hemoglobin ABG Chloride ABG Glucose Sodium 151 H Potassium Chloride 125.5 H Carbon Dioxide 12 L BUN 83 H Creatinine 2.3 H Glucose 130 H POC Glucose Lactic Acid Calcium 8.2 L Magnesium Iron TIBC Ferritin AST Alkaline Phosphatase 157 H Lactate Dehydrogenase C-Reactive Protein NT-Pro-B Natriuret Pep Total Protein 4.5 L Albumin 2.4 L PTH Intact Arterial Blood Glucose Urine Creatinine Urine Total Protein Coronavirus (PCR) Crossmatch 09/06/20 09/06/20 09/06/20 06:52 08:31 11:31 WBC RBC Hgb Hct MCV MCH RDW Plt Count Lymph % (Auto) [place] % (Auto) Lymph # (Auto) Seg Neutrophils % Seg Neuts % (Manual) Lymphocytes % (Manual) Nucleated RBC % Seg Neutrophils # Seg Neutrophils # Man Lymphocytes # (Manual) PT INR D-Dimer Heparin Anti-Xa Level ABG pH POC ABG pO2 ABG Hemoglobin ABG Chloride ABG Glucose Sodium Potassium Chloride Carbon Dioxide BUN Creatinine Glucose POC Glucose 148 H 171 H Lactic Acid Calcium Magnesium Iron TIBC Ferritin AST Alkaline Phosphatase Lactate Dehydrogenase C-Reactive Protein NT-Pro-B Natriuret Pep Total Protein Albumin PTH Intact Arterial Blood Glucose Urine Creatinine 43.2 H Urine Total Protein 298 H Coronavirus (PCR) Crossmatch 09/06/20 09/06/20 09/06/20 14:59 18:03 21:36 WBC RBC Hgb 7.7 L Hct 24.5 L MCV MCH RDW Plt Count Lymph % (Auto) [place] % (Auto) Lymph # (Auto) Seg Neutrophils % Seg Neuts % (Manual) Lymphocytes % (Manual) Nucleated RBC % Seg Neutrophils # Seg Neutrophils # Man Lymphocytes # (Manual) PT INR D-Dimer Heparin Anti-Xa Level ABG pH POC ABG pO2 ABG Hemoglobin ABG Chloride ABG Glucose Sodium Potassium Chloride Carbon Dioxide BUN Creatinine Glucose POC Glucose 135 H 131 H Lactic Acid Calcium Magnesium Iron TIBC Ferritin AST Alkaline Phosphatase Lactate Dehydrogenase C-Reactive Protein NT-Pro-B Natriuret Pep Total Protein Albumin PTH Intact Arterial Blood Glucose Urine Creatinine Urine Total Protein Coronavirus (PCR) Crossmatch 09/07/20 09/07/20 09/07/20 01:27 09:13 09:13 WBC RBC 3.13 L Hgb 7.5 L 8.2 L Hct 23.4 L 25.5 L MCV MCH 26 L RDW 28.6 H Plt Count Lymph % (Auto) [place] % (Auto) Lymph # (Auto) Seg Neutrophils % Seg Neuts % (Manual) 94.0 H Lymphocytes % (Manual) 3.0 L Nucleated RBC % 2.0 H Seg Neutrophils # Seg Neutrophils # Man 9.5 H Lymphocytes # (Manual) 0.3 L PT 29.6 H INR 2.74 H D-Dimer Heparin Anti-Xa Level ABG pH POC ABG pO2 ABG Hemoglobin ABG Chloride ABG Glucose Sodium Potassium Chloride Carbon Dioxide BUN Creatinine Glucose POC Glucose Lactic Acid Calcium Magnesium Iron TIBC Ferritin AST Alkaline Phosphatase Lactate Dehydrogenase C-Reactive Protein NT-Pro-B Natriuret Pep Total Protein Albumin PTH Intact Arterial Blood Glucose Urine Creatinine Urine Total Protein Coronavirus (PCR) Crossmatch 09/07/20 09/07/20 09/07/20 09:13 17:15 18:38 WBC RBC Hgb Hct MCV MCH RDW Plt Count Lymph % (Auto) [place] % (Auto) Lymph # (Auto) Seg Neutrophils % Seg Neuts % (Manual) Lymphocytes % (Manual) Nucleated RBC % Seg Neutrophils # Seg Neutrophils # Man Lymphocytes # (Manual) PT INR D-Dimer Heparin Anti-Xa Level ABG pH POC ABG pO2 ABG Hemoglobin ABG Chloride ABG Glucose Sodium 152 H Potassium Chloride 129.1 H Carbon Dioxide 13 L BUN 78 H Creatinine 2.4 H Glucose 111 H POC Glucose 59 L 107 H Lactic Acid Calcium Magnesium Iron 28 L TIBC 188 L Ferritin AST Alkaline Phosphatase 191 H Lactate Dehydrogenase C-Reactive Protein NT-Pro-B Natriuret Pep Total Protein 5.0 L Albumin 2.4 L PTH Intact Arterial Blood Glucose Urine Creatinine Urine Total Protein Coronavirus (PCR) Crossmatch 09/07/20 09/08/20 09/08/20 Unknown 05:18 05:18 WBC 12.0 H RBC 2.93 L Hgb 7.6 L Hct 23.7 L MCV MCH 26 L RDW 29.3 H Plt Count 130 L Lymph % (Auto) [place] % (Auto) Lymph # (Auto) Seg Neutrophils % 78.8 H Seg Neuts % (Manual) Lymphocytes % (Manual) Nucleated RBC % Seg Neutrophils # 9.5 H Seg Neutrophils # Man Lymphocytes # (Manual) PT 34.0 H INR 3.27 H D-Dimer Heparin Anti-Xa Level ABG pH POC ABG pO2 ABG Hemoglobin ABG Chloride ABG Glucose Sodium Potassium Chloride Carbon Dioxide BUN Creatinine Glucose POC Glucose Lactic Acid Calcium Magnesium Iron TIBC Ferritin AST Alkaline Phosphatase Lactate Dehydrogenase C-Reactive Protein NT-Pro-B Natriuret Pep Total Protein Albumin PTH Intact Arterial Blood Glucose Urine Creatinine Urine Total Protein Coronavirus (PCR) Positive A Crossmatch 09/08/20 09/08/20 09/08/20 05:18 12:21 22:01 WBC RBC Hgb Hct MCV MCH RDW Plt Count Lymph % (Auto) [place] % (Auto) Lymph # (Auto) Seg Neutrophils % Seg Neuts % (Manual) Lymphocytes % (Manual) Nucleated RBC % Seg Neutrophils # Seg Neutrophils # Man Lymphocytes # (Manual) PT INR D-Dimer Heparin Anti-Xa Level ABG pH POC ABG pO2 ABG Hemoglobin ABG Chloride ABG Glucose Sodium 148 H Potassium Chloride 127.0 H Carbon Dioxide 12 L BUN 77 H Creatinine 2.3 H Glucose 60 L POC Glucose 110 H 129 H Lactic Acid Calcium Magnesium Iron TIBC Ferritin AST Alkaline Phosphatase 185 H Lactate Dehydrogenase C-Reactive Protein NT-Pro-B Natriuret Pep Total Protein 5.0 L Albumin 2.4 L PTH Intact Arterial Blood Glucose Urine Creatinine Urine Total Protein Coronavirus (PCR) Crossmatch 09/09/20 09/09/20 09/09/20 09:06 09:06 09:06 WBC 11.5 H RBC 2.92 L Hgb 7.5 L Hct 23.9 L MCV MCH 26 L RDW 29.4 H Plt Count 119 L Lymph % (Auto) [place] % (Auto) Lymph # (Auto) Seg Neutrophils % Seg Neuts % (Manual) 98.0 H Lymphocytes % (Manual) 0 L Nucleated RBC % Seg Neutrophils # Seg Neutrophils # Man 11.3 H Lymphocytes # (Manual) 0.0 L PT 19.3 H INR 1.59 H D-Dimer Heparin Anti-Xa Level ABG pH POC ABG pO2 ABG Hemoglobin ABG Chloride ABG Glucose Sodium 153 H Potassium Chloride 128.7 H Carbon Dioxide 13 L BUN 70 H Creatinine 2.3 H Glucose 102 H POC Glucose Lactic Acid Calcium Magnesium Iron TIBC Ferritin AST Alkaline Phosphatase 186 H Lactate Dehydrogenase C-Reactive Protein NT-Pro-B Natriuret Pep Total Protein 4.4 L Albumin 2.4 L PTH Intact Arterial Blood Glucose Urine Creatinine Urine Total Protein Coronavirus (PCR) Crossmatch 09/09/20 09/10/20 09/10/20 23:08 05:12 05:12 WBC 12.1 H RBC 2.66 L Hgb 6.8 L Hct 22.0 L MCV MCH 26 L RDW 29.9 H Plt Count 110 L Lymph % (Auto) [place] % (Auto) Lymph # (Auto) Seg Neutrophils % Seg Neuts % (Manual) 97.0 H Lymphocytes % (Manual) 0 L Nucleated RBC % Seg Neutrophils # Seg Neutrophils # Man 11.7 H Lymphocytes # (Manual) 0.0 L PT INR D-Dimer Heparin Anti-Xa Level ABG pH POC ABG pO2 ABG Hemoglobin ABG Chloride ABG Glucose Sodium 153 H Potassium Chloride 126.8 H Carbon Dioxide 14 L BUN 69 H Creatinine 2.2 H Glucose 129 H POC Glucose 142 H Lactic Acid Calcium 8.1 L Magnesium Iron TIBC Ferritin AST Alkaline Phosphatase 180 H Lactate Dehydrogenase C-Reactive Protein NT-Pro-B Natriuret Pep Total Protein 4.2 L Albumin 2.3 L PTH Intact Arterial Blood Glucose Urine Creatinine Urine Total Protein Coronavirus (PCR) Crossmatch 09/10/20 09/10/20 09/10/20 05:12 07:59 12:23 WBC RBC Hgb Hct MCV MCH RDW Plt Count Lymph % (Auto) [place] % (Auto) Lymph # (Auto) Seg Neutrophils % Seg Neuts % (Manual) Lymphocytes % (Manual) Nucleated RBC % Seg Neutrophils # Seg Neutrophils # Man Lymphocytes # (Manual) PT 16.7 H INR 1.32 H D-Dimer Heparin Anti-Xa Level ABG pH POC ABG pO2 ABG Hemoglobin ABG Chloride ABG Glucose Sodium Potassium Chloride Carbon Dioxide BUN Creatinine Glucose POC Glucose 162 H 148 H Lactic Acid Calcium Magnesium Iron TIBC Ferritin AST Alkaline Phosphatase Lactate Dehydrogenase C-Reactive Protein NT-Pro-B Natriuret Pep Total Protein Albumin PTH Intact Arterial Blood Glucose Urine Creatinine Urine Total Protein Coronavirus (PCR) Crossmatch 09/10/20 09/10/20 09/10/20 13:48 17:04 21:55 WBC RBC Hgb Hct MCV MCH RDW Plt Count Lymph % (Auto) [place] % (Auto) Lymph # (Auto) Seg Neutrophils % Seg Neuts % (Manual) Lymphocytes % (Manual) Nucleated RBC % Seg Neutrophils # Seg Neutrophils # Man Lymphocytes # (Manual) PT INR D-Dimer Heparin Anti-Xa Level ABG pH POC ABG pO2 ABG Hemoglobin ABG Chloride ABG Glucose Sodium Potassium Chloride Carbon Dioxide BUN Creatinine Glucose POC Glucose 162 H 155 H Lactic Acid Calcium Magnesium Iron TIBC Ferritin AST Alkaline Phosphatase Lactate Dehydrogenase C-Reactive Protein NT-Pro-B Natriuret Pep Total Protein Albumin PTH Intact Arterial Blood Glucose Urine Creatinine Urine Total Protein Coronavirus (PCR) Crossmatch See Detail 09/11/20 09/11/20 09/11/20 08:25 08:25 08:25 WBC 13.2 H RBC 2.68 L Hgb 7.1 L Hct 21.7 L MCV MCH 26 L RDW 31.2 H Plt Count 92 L Lymph % (Auto) [place] % (Auto) Lymph # (Auto) Seg Neutrophils % Seg Neuts % (Manual) 97.0 H Lymphocytes % (Manual) 0 L Nucleated RBC % 1.0 H Seg Neutrophils # Seg Neutrophils # Man 12.8 H Lymphocytes # (Manual) 0.0 L PT 18.0 H INR 1.46 H D-Dimer Heparin Anti-Xa Level ABG pH POC ABG pO2 ABG Hemoglobin ABG Chloride ABG Glucose Sodium 151 H Potassium Chloride 126.7 H Carbon Dioxide 14 L BUN 72 H Creatinine 2.1 H Glucose POC Glucose Lactic Acid Calcium 8.1 L Magnesium Iron TIBC Ferritin AST Alkaline Phosphatase Lactate Dehydrogenase C-Reactive Protein NT-Pro-B Natriuret Pep Total Protein Albumin PTH Intact Arterial Blood Glucose Urine Creatinine Urine Total Protein Coronavirus (PCR) Crossmatch 09/11/20 09/11/20 09/11/20 13:40 17:50 19:24 WBC RBC Hgb Hct MCV MCH RDW Plt Count Lymph % (Auto) [place] % (Auto) Lymph # (Auto) Seg Neutrophils % Seg Neuts % (Manual) Lymphocytes % (Manual) Nucleated RBC % Seg Neutrophils # Seg Neutrophils # Man Lymphocytes # (Manual) PT INR D-Dimer Heparin Anti-Xa Level ABG pH POC ABG pO2 ABG Hemoglobin ABG Chloride ABG Glucose Sodium Potassium Chloride Carbon Dioxide BUN Creatinine Glucose POC Glucose 67 L 52 L 193 H Lactic Acid Calcium Magnesium Iron TIBC Ferritin AST Alkaline Phosphatase Lactate Dehydrogenase C-Reactive Protein NT-Pro-B Natriuret Pep Total Protein Albumin PTH Intact Arterial Blood Glucose Urine Creatinine Urine Total Protein Coronavirus (PCR) Crossmatch 09/11/20 09/12/20 09/12/20 21:24 06:16 06:16 WBC RBC Hgb Hct MCV MCH RDW Plt Count Lymph % (Auto) [place] % (Auto) Lymph # (Auto) Seg Neutrophils % Seg Neuts % (Manual) Lymphocytes % (Manual) Nucleated RBC % Seg Neutrophils # Seg Neutrophils # Man Lymphocytes # (Manual) PT 16.7 H INR 1.34 H D-Dimer Heparin Anti-Xa Level ABG pH POC ABG pO2 ABG Hemoglobin ABG Chloride ABG Glucose Sodium 149 H Potassium Chloride 124.7 H Carbon Dioxide 15 L BUN 67 H Creatinine 2.0 H Glucose 134 H POC Glucose 184 H Lactic Acid Calcium 8.1 L Magnesium Iron TIBC Ferritin AST Alkaline Phosphatase Lactate Dehydrogenase C-Reactive Protein NT-Pro-B Natriuret Pep Total Protein Albumin PTH Intact Arterial Blood Glucose Urine Creatinine Urine Total Protein Coronavirus (PCR) Crossmatch 09/12/20 09/12/20 09/12/20 06:16 08:06 11:11 WBC 17.4 H RBC 2.55 L Hgb 6.7 L Hct 22.3 L MCV MCH 26 L RDW 31.8 H Plt Count 104 L Lymph % (Auto) [place] % (Auto) Lymph # (Auto) Seg Neutrophils % Seg Neuts % (Manual) 94.0 H Lymphocytes % (Manual) 1.0 L Nucleated RBC % 2.0 H Seg Neutrophils # Seg Neutrophils # Man 16.4 H Lymphocytes # (Manual) 0.2 L PT INR D-Dimer Heparin Anti-Xa Level ABG pH POC ABG pO2 ABG Hemoglobin ABG Chloride ABG Glucose Sodium Potassium Chloride Carbon Dioxide BUN Creatinine Glucose POC Glucose 127 H 128 H Lactic Acid Calcium Magnesium Iron TIBC Ferritin AST Alkaline Phosphatase Lactate Dehydrogenase C-Reactive Protein NT-Pro-B Natriuret Pep Total Protein Albumin PTH Intact Arterial Blood Glucose Urine Creatinine Urine Total Protein Coronavirus (PCR) Crossmatch 09/12/20 09/13/20 09/13/20 16:30 00:02 07:26 WBC RBC Hgb Hct MCV MCH RDW Plt Count Lymph % (Auto) [place] % (Auto) Lymph # (Auto) Seg Neutrophils % Seg Neuts % (Manual) Lymphocytes % (Manual) Nucleated RBC % Seg Neutrophils # Seg Neutrophils # Man Lymphocytes # (Manual) PT 19.5 H INR 1.63 H D-Dimer Heparin Anti-Xa Level ABG pH POC ABG pO2 ABG Hemoglobin ABG Chloride ABG Glucose Sodium Potassium Chloride Carbon Dioxide BUN Creatinine Glucose POC Glucose 145 H 247 H Lactic Acid Calcium Magnesium Iron TIBC Ferritin AST Alkaline Phosphatase Lactate Dehydrogenase C-Reactive Protein NT-Pro-B Natriuret Pep Total Protein Albumin PTH Intact Arterial Blood Glucose Urine Creatinine Urine Total Protein Coronavirus (PCR) Crossmatch 09/13/20 09/13/20 09/13/20 07:26 09:56 10:07 WBC 15.3 H RBC 2.62 L Hgb 7.1 L Hct 22.6 L MCV MCH 27 L RDW 28.7 H Plt Count 89 L Lymph % (Auto) [place] % (Auto) Lymph # (Auto) Seg Neutrophils % Seg Neuts % (Manual) Lymphocytes % (Manual) Nucleated RBC % Seg Neutrophils # Seg Neutrophils # Man Lymphocytes # (Manual) PT INR D-Dimer Heparin Anti-Xa Level ABG pH POC ABG pO2 ABG Hemoglobin ABG Chloride ABG Glucose Sodium 146 H Potassium Chloride 121.3 H Carbon Dioxide 13 L BUN 67 H Creatinine 1.8 H Glucose 194 H POC Glucose 233 H Lactic Acid Calcium 8.2 L Magnesium 1.40 L Iron TIBC Ferritin AST Alkaline Phosphatase Lactate Dehydrogenase C-Reactive Protein NT-Pro-B Natriuret Pep Total Protein Albumin PTH Intact Arterial Blood Glucose Urine Creatinine Urine Total Protein Coronavirus (PCR) Crossmatch 09/13/20 09/13/20 09/14/20 13:37 17:17 00:42 WBC RBC Hgb Hct MCV MCH RDW Plt Count Lymph % (Auto) [place] % (Auto) Lymph # (Auto) Seg Neutrophils % Seg Neuts % (Manual) Lymphocytes % (Manual) Nucleated RBC % Seg Neutrophils # Seg Neutrophils # Man Lymphocytes # (Manual) PT INR D-Dimer Heparin Anti-Xa Level ABG pH POC ABG pO2 ABG Hemoglobin ABG Chloride ABG Glucose Sodium Potassium Chloride Carbon Dioxide BUN Creatinine Glucose POC Glucose 181 H 148 H 200 H Lactic Acid Calcium Magnesium Iron TIBC Ferritin AST Alkaline Phosphatase Lactate Dehydrogenase C-Reactive Protein NT-Pro-B Natriuret Pep Total Protein Albumin PTH Intact Arterial Blood Glucose Urine Creatinine Urine Total Protein Coronavirus (PCR) Crossmatch 09/14/20 09/14/20 09/14/20 10:08 14:54 19:57 WBC RBC Hgb Hct MCV MCH RDW Plt Count Lymph % (Auto) [place] % (Auto) Lymph # (Auto) Seg Neutrophils % Seg Neuts % (Manual) Lymphocytes % (Manual) Nucleated RBC % Seg Neutrophils # Seg Neutrophils # Man Lymphocytes # (Manual) PT 19.4 H INR 1.62 H D-Dimer Heparin Anti-Xa Level ABG pH POC ABG pO2 ABG Hemoglobin ABG Chloride ABG Glucose Sodium Potassium Chloride Carbon Dioxide BUN Creatinine Glucose POC Glucose 204 H 138 H Lactic Acid Calcium Magnesium Iron TIBC Ferritin AST Alkaline Phosphatase Lactate Dehydrogenase C-Reactive Protein NT-Pro-B Natriuret Pep Total Protein Albumin PTH Intact Arterial Blood Glucose Urine Creatinine Urine Total Protein Coronavirus (PCR) Crossmatch 09/14/20 09/14/20 09/15/20 19:57 23:02 08:34 WBC RBC Hgb Hct MCV MCH RDW Plt Count Lymph % (Auto) [place] % (Auto) Lymph # (Auto) Seg Neutrophils % Seg Neuts % (Manual) Lymphocytes % (Manual) Nucleated RBC % Seg Neutrophils # Seg Neutrophils # Man Lymphocytes # (Manual) PT INR D-Dimer Heparin Anti-Xa Level ABG pH POC ABG pO2 ABG Hemoglobin ABG Chloride ABG Glucose Sodium Potassium Chloride 117.8 H Carbon Dioxide 10 L BUN 26 H Creatinine 1.8 H Glucose 132 H POC Glucose 173 H 151 H Lactic Acid Calcium 8.2 L Magnesium Iron TIBC Ferritin AST Alkaline Phosphatase Lactate Dehydrogenase C-Reactive Protein NT-Pro-B Natriuret Pep Total Protein Albumin PTH Intact Arterial Blood Glucose Urine Creatinine Urine Total Protein Coronavirus (PCR) Crossmatch 09/16/20 09/16/20 09/16/20 09:30 13:17 13:44 WBC RBC Hgb Hct MCV MCH RDW Plt Count Lymph % (Auto) [place] % (Auto) Lymph # (Auto) Seg Neutrophils % Seg Neuts % (Manual) Lymphocytes % (Manual) Nucleated RBC % Seg Neutrophils # Seg Neutrophils # Man Lymphocytes # (Manual) PT INR D-Dimer Heparin Anti-Xa Level ABG pH POC ABG pO2 ABG Hemoglobin ABG Chloride ABG Glucose Sodium Potassium Chloride 115.8 H Carbon Dioxide 16 L BUN 53 H Creatinine 1.8 H Glucose 148 H POC Glucose 114 H 130 H Lactic Acid Calcium 8.0 L Magnesium Iron TIBC Ferritin AST Alkaline Phosphatase Lactate Dehydrogenase C-Reactive Protein NT-Pro-B Natriuret Pep Total Protein Albumin PTH Intact Arterial Blood Glucose Urine Creatinine Urine Total Protein Coronavirus (PCR) Crossmatch 09/16/20 09/16/20 09/16/20 13:44 16:49 22:46 WBC RBC 2.67 L Hgb 7.3 L Hct 22.0 L MCV MCH 27 L RDW 29.3 H Plt Count 65 L Lymph % (Auto) [place] % (Auto) Lymph # (Auto) Seg Neutrophils % Seg Neuts % (Manual) Lymphocytes % (Manual) Nucleated RBC % Seg Neutrophils # Seg Neutrophils # Man Lymphocytes # (Manual) PT INR D-Dimer Heparin Anti-Xa Level ABG pH POC ABG pO2 ABG Hemoglobin ABG Chloride ABG Glucose Sodium Potassium Chloride Carbon Dioxide BUN Creatinine Glucose POC Glucose 171 H 157 H Lactic Acid Calcium Magnesium Iron TIBC Ferritin AST Alkaline Phosphatase Lactate Dehydrogenase C-Reactive Protein NT-Pro-B Natriuret Pep Total Protein Albumin PTH Intact Arterial Blood Glucose Urine Creatinine Urine Total Protein Coronavirus (PCR) Crossmatch 09/17/20 09/17/20 09/17/20 03:15 11:42 11:46 WBC RBC Hgb Hct MCV MCH RDW Plt Count Lymph % (Auto) [place] % (Auto) Lymph # (Auto) Seg Neutrophils % Seg Neuts % (Manual) Lymphocytes % (Manual) Nucleated RBC % Seg Neutrophils # Seg Neutrophils # Man Lymphocytes # (Manual) PT INR D-Dimer Heparin Anti-Xa Level ABG pH 7.172 L POC ABG pO2 456.0 H ABG Hemoglobin 6.8 L ABG Chloride 119.0 H ABG Glucose 143 H Sodium 147 H Potassium Chloride 120.9 H Carbon Dioxide 15 L BUN 54 H Creatinine 1.7 H Glucose 125 H POC Glucose 116 H Lactic Acid Calcium 7.8 L Magnesium Iron TIBC Ferritin AST Alkaline Phosphatase Lactate Dehydrogenase C-Reactive Protein NT-Pro-B Natriuret Pep Total Protein Albumin PTH Intact Arterial Blood Glucose 143 H Urine Creatinine Urine Total Protein Coronavirus (PCR) Crossmatch - Diagnostic Findings Chest x-ray: image reviewed (slight worseing of bilateral airspace disease) Assessment and Plan 64 y/o female with cardiac arrest this am, now intubated, not on sedation with severe metabolic acidosis. 1. Sodium bicarb 2 amps given 2. ARt line ordered and placed 3. ABG shows a PaO2 of >400 on 100% and CO2 of 38. Wean FiO2 4. No sedatives whatsoever 5. Likely will need imaging of head in the next 24 hours and consider EEG if mental state does not improve 6. Repeat COVID testing 7. Wean Pressors for maps >65 8. Agree with volume 9. Follow up any renal recs 10. Overall prognosis is guarded. Pulseless total time is not definite. Continue supportive measures. CCT 31 minutes.
[2020-09-17 14:25] LABS: Hematocrit 21.1 % (30.3-42.9); Hemoglobin 6.9 gm/dl (10.1-14.3); Mean Corpuscular HGB Conc 33 % (30-34); Mean Corpuscular Volume 84 fl (79-97); Red Blood Count 2.53 M/mm3 (3.65-5.03)
[2020-09-17 14:35] LABS: Red Cell Distribution Width 29.1 % (13.2-15.2)
[2020-09-17 14:37] LABS: Calcium 7.6 mg/dL (8.4-10.2)
--- NOTE | 2020-09-17 14:54 | Event Note ---
Date: 09/17/20 [facility] cindy called this am Patient was being assessed for home O2 requirement when RN went to check on her she was unresponsive and noted to have coffee ground material around her body ACLS initiated, received 2 round of epi, one bicarb, patient was intubated, had catheter suction, we regained her pulse back, patient was transferred to ICU, discussed with CC attending daughter and son was updated by phone, she came to visist the patient in the ICU - also updated her in the ICU Poor prognosis CC time 65 minutes
[2020-09-17 14:58] LABS: Platelet Count 73 K/mm3 (140-440)
--- NOTE | 2020-09-17 15:07 | Progress Note ---
Assessment and Plan --S/P Cardiorespiratory arrest -- Acute delirium/acute metabolic encephalopathy Etiology unknown, likely initially was metabolic s/p as needed haldol, placed on restraint then worsened by --Sepsis Due to COVID-19 pneumonia Blood culture NTD ID recommendations appreciated --COVID-19 pneumonia, POA Coronavirus protocol: Coronavirus PCR is positive, contact precaution, isolation precautions, prone positioning while in bed, Not a candidate for remdesivir due to renal failure Continue dexamethasone s/p convalescent plasma --Acute on chronic anemia Due to chronic GI bleed and iron deficiency Status post transfusion of 3 units PRBC, PPI. Continue to monitor for GI bleed As per GI, does not look like patient is having GI bleed at this time Advance diet as tolerated --Possible GI bleed, chronic Advance diet, GI on board Recommended to manage medically --Acute kidney injury (DIRK) with acute tubular necrosis (ATN) Continue to monitor renal function Nephrology following closely --Hypernatremia Continue isotonic solution Nephrology on board --Bilateral lower extremity DVT, chronic Consulted vascular surgeon for consideration of IVC filter placement. As per vascular surgery, patient is not a good candidate for IVC filter placement INR 2.74. GI recommended to treat with aspirin only --Diabetes Current Visit: Yes Status: Acute Plan to address problem: Sliding-scale insulin therapy, Accu-Chek, hypoglycemia protocol, consistent carbohydrate diet. --h/o tobacco --DVT prophylaxis, Anticoagulation --full code status Brief History; 64 YO Female with HTN, DM, Anemia, PVD, Nicotine Dependence, positive coronavirus test recently at [place] presented to the emergency room for further evaluation. Patient states that she has experienced subjective fever, generalized weakness, body aches, shortness of breath, nausea, multiple loose stools, lower extremity edema over the past 1 week with progressively worsening symptoms over the past 3 to 4 days prior to presentation. Here, patient found to be hypotensive with a systolic blood pressure ranging from 53-94. Patient was also hypothermic with a body temperature of 93.3 F. Patient met criteria for sepsis protocol and found to have bilateral pneumonia, metabolic acidosis, acute kidney injury. Patient admitted to telemetry due to increased risk of multisystem decompensation. Patient initiated on coronavirus protocol. Coronavirus PCR has been ordered, Patient remained hypotensive in spite of IV fluid resuscitation therapy. Patient subsequently upgraded to IMCU. daily course: 11/5. While in the ER, patient had an ultrasound Doppler performed that showed bilateral DVT involving the iliac veins. Patient was started on heparin drip. ID consulted for COVID-19 and nephrology consulted for DIRK. Patient seen and examined at bedside this morning. She has no complaints this morning. Her hemoglobin dropped to 6.4 this morning. Patient will get transfused 1 unit of PRBCs. Later this p.m., was notified by nurse that patient is having tarry dark stool and hematemesis. Heparin drip discontinued. Patient started on PPI drip and made n.p.o. GI is has been consulted. Patient will need to have an upper endoscopy. She has bilateral lower extremity DVT and will need vascular surgery evaluation to determine if she is a candidate for IVC filter placement. 09/04. Patient seen and examined at bedside this morning. Labs reviewed showed hemoglobin 5.3. Patient will receive 2 units PRBCs. FFP also ordered. GI evaluation pending. Continue PPIs. Vascular surgeon to see to determine if patient is a candidate for IVC filter placement for DVT. 09/05. Hb stable this morning. GI on board. On PPI drip. 09/06. Gastroenterology and vascular surgery recommendations reviewed. Patient not a good candidate for IVC filter placement due to location of the clot/thrombosis. Plan is for patient to have anticoagulation on while monitoring hemoglobin. Patient's INR is more than 2 at this time so we will hold anticoagulation for now and monitor hemoglobin. Plan to initiate anticoagulation when INR is less than 2. We will preferably use heparin products as she has a high chance of bleeding. Continue to monitor hemoglobin. Hb 7.3 this a.m. 09/07. Hemoglobin 8.2 this AM. No clear signs of GI bleed. Her INR is 2.74. No need for initiation of AC for now as she INR is already therapeutic. Plan is to monitor for bleeding and if she remains stable, she will be started on anticoagulation for her bilateral DVT. Vascular surgery following-patient not a candidate for IVC catheter placement. GI recommendations appreciated 09/08: Patient is nonreactive to COVID-19 antibody, per ID order for convalescent plasma. Continue supportive care, follow clinically 09/09: Pending convalescent plasma transfusion, continue to follow inflammatory markers. Monitor H&H. Plan to start on aspirin tomorrow if INR and H&H stable 09/10: hb dropped to 6.8, transfuse one unit, discussed with GI - no plan for endoscopy now, cont to follow clinically 09/11: patient didn't get transfusion yesterday. became very agitated today, ordered as needed haldol, cont iv fluid. monitor clinically 09/12: placed on restrain o/n. cont supportive care, lost IV line - ordered for midline. pending PRBC transfusion 09/13: monitor h/h, patient more clam today, continue supportive care, follow BMP - Na and Cr has been improving 09/14: cont to monitor, follow BMP, follow h/h. oral intake improved per RN 09/15: If h/h stable and Cr cont to improves will d/c in a day or two 09/16; spoke with daughter and updated her with patient's clinical condition. family willing to accept the patient tomorrow. RN reported some Nose bleeding earlier today, but now resolved. repeat h/h stable 09/17: had respiratory/cardiac arrest this am. patient transferred to ICU. updated family. will get CT head, patient now intubated, start on bicarbonate drip Subjective Date of service: 09/17/20 Principal diagnosis: Iron Def Anemia Objective - Constitutional Vitals: Vital Signs - 12hr 09/17/20 09/17/20 09/17/20 04:44 10:57 11:00 Temperature 98.8 F Pulse Rate 60 82 64 Respiratory 18 16 Rate Blood Pressure 145/63 145/63 O2 Sat by Pulse 94 98 Oximetry 09/17/20 12:00 Temperature 97.9 F Pulse Rate 68 Respiratory 25 H Rate Blood Pressure 102/52 O2 Sat by Pulse 100 Oximetry - Labs CBC & Chem 7: 09/17/20 13:49 09/17/20 13:49 Labs: Abnormal lab results 09/16/20 09/16/20 09/17/20 Range/Units 16:49 22:46 03:15 WBC (4.5-11.0) K/mm3 RBC (3.65-5.03) M/mm3 Hgb (10.1-14.3) gm/dl Hct (30.3-42.9) % MCH (28-32) pg RDW (13.2-15.2) % ABG pH (7.320-7.450) POC ABG pO2 (83-108) mmHg ABG Hemoglobin (12.0-17.5) ABG Chloride (98-107) mmol/L ABG Glucose (65-95) mg/dL Sodium 147 H (137-145) mmol/L Chloride 120.9 H (98-107) mmol/L Carbon Dioxide 15 L (22-30) mmol/L BUN 54 H (7-17) mg/dL Creatinine 1.7 H (0.6-1.2) mg/dL Glucose 125 H (65-100) mg/dL POC Glucose 171 H 157 H (70-105) mg/dL Calcium 7.8 L (8.4-10.2) mg/dL Arterial Blood Glucose (65-95) mg/dL Crossmatch 09/17/20 09/17/20 09/17/20 Range/Units 11:42 11:46 13:49 WBC 21.0 H (4.5-11.0) K/mm3 RBC 2.53 L (3.65-5.03) M/mm3 Hgb 6.9 L (10.1-14.3) gm/dl Hct 21.1 L (30.3-42.9) % MCH 27 L (28-32) pg RDW 29.1 H (13.2-15.2) % ABG pH 7.172 L (7.320-7.450) POC ABG pO2 456.0 H (83-108) mmHg ABG Hemoglobin 6.8 L (12.0-17.5) ABG Chloride 119.0 H (98-107) mmol/L ABG Glucose 143 H (65-95) mg/dL Sodium (137-145) mmol/L Chloride (98-107) mmol/L Carbon Dioxide (22-30) mmol/L BUN (7-17) mg/dL Creatinine (0.6-1.2) mg/dL Glucose (65-100) mg/dL POC Glucose 116 H (70-105) mg/dL Calcium (8.4-10.2) mg/dL Arterial Blood Glucose 143 H (65-95) mg/dL Crossmatch 09/17/20 09/17/20 Range/Units 13:49 13:49 WBC (4.5-11.0) K/mm3 RBC (3.65-5.03) M/mm3 Hgb (10.1-14.3) gm/dl Hct (30.3-42.9) % MCH (28-32) pg RDW (13.2-15.2) % ABG pH (7.320-7.450) POC ABG pO2 (83-108) mmHg ABG Hemoglobin (12.0-17.5) ABG Chloride (98-107) mmol/L ABG Glucose (65-95) mg/dL Sodium 148 H (137-145) mmol/L Chloride 117.9 H (98-107) mmol/L Carbon Dioxide 16 L (22-30) mmol/L BUN 59 H (7-17) mg/dL Creatinine 1.9 H (0.6-1.2) mg/dL Glucose 126 H (65-100) mg/dL POC Glucose (70-105) mg/dL Calcium 7.6 L (8.4-10.2) mg/dL Arterial Blood Glucose (65-95) mg/dL Crossmatch See Detail
[2020-09-17] MEDS: hydroCHLOROthiazide 25 MG TAB PO SCH (15:17)
[2020-09-17] MEDS: ASPIRIN EC 325 MG TAB PO SCH (15:17)
[2020-09-17] MEDS: FERROUS SULFATE 325 MG TAB PO SCH (15:17)
[2020-09-17] MEDS: K-LYTE 25 MEQ TABLET EFF PO SCH (15:17)
[2020-09-17] MEDS: CALCITRIOL 0.5 MCG CAP PO SCH (15:18)
[2020-09-17] MEDS: SERTRALINE 50 MG TAB PO SCH (15:19)
[2020-09-17] MEDS: MULTIVITAMINS ,THERAPEUTIC TAB PO SCH (15:19)
[2020-09-17] MEDS: metOLazone 5 MG TAB PO SCH (15:19)
[2020-09-17] MEDS: SODIUM BICARBONATE 75 MEQ in DEXTROSE 5% IN WATER 1,000 ML IV SCH (16:24)
--- NOTE | 2020-09-17 17:01 | Gastroenterology Progress Note ---
Assessment and Plan # Iron deficiency anemia - Anemic x several years (per [facility] records); EGD 2014 showed severe esophagitis and mild gastritis; no colonoscopy on file. - Patient was being managed medically with PPI and monitoring H/H. GI had signed off with no signs of gross bleeding on 09/13/2020 - Patient had a cardiac arrest this AM. unclear etiology for the arrest. and intubated and in the ICU. Patient being evaluated with CT head and for possible PE. - Hgb 6.9 from 7.3. Reported to have brown emesis material around her. Receiving 1 unit of PRBC today. - required levophed but was weaned off. # COVID-19 - b/l pneumonia # DVT - Acute versus chronic DVT of BLE; given hx of bilateral BKA, possible chronic. - Patient too unstable and anemic to anticoagulate at present. - hold anticoagulation. Rec - switch PPI to IV - recommend NG tube placement and LIS. - monitor H/H and transfuse with Hgb goal >7. - will follow. - spoke with daughter on the phone and updated. - Patient Problems (1) COVID-19 Current Visit: Yes Status: Acute (2) Iron deficiency anemia due to chronic blood loss Current Visit: Yes Status: Acute Subjective Date of service: 09/17/20 Principal diagnosis: Iron Def Anemia Interval history: Patient was awaiting discharge home and being accessed for home O2 need. Had a cardiac arrest this AM. Reported to have brief period and ROSC after epi. Rep orted to have brown emesis material around her. Objective - Constitutional Vitals: Temp Pulse Resp BP Pulse Ox 98 F 82 25 H 80/55 100 09/17/20 16:11 09/17/20 16:14 09/17/20 16:11 09/17/20 16:14 09/17/20 16:14 General appearance: other (intubated, opens eyes) - Respiratory Respiratory effort: other (intubated and on the vent) - Cardiovascular Rhythm: regular - Neurologic Neurological: other (opens eyes, nonpurposeful movement) - Labs CBC & Chem 7: 09/17/20 13:49 09/17/20 13:49 Labs: Laboratory Results - last 24 hr 09/16/20 09/16/20 09/17/20 16:49 22:46 03:15 WBC RBC Hgb Hct MCV MCH MCHC RDW Plt Count ABG pH POC ABG pCO2 POC ABG pO2 POC ABG HCO3 POC ABG Base Excess ABG Hemoglobin ABG Sodium ABG Potassium ABG Chloride ABG Glucose FiO2 Sodium 147 H Potassium 4.0 Chloride 120.9 H Carbon Dioxide 15 L Anion Gap 15 BUN 54 H Creatinine 1.7 H Estimated GFR 37 BUN/Creatinine Ratio 32 Glucose 125 H POC Glucose 171 H 157 H Calcium 7.8 L Arterial Blood Glucose Arterial Blood Ionized Calcium Coronavirus (PCR) Blood Type Antibody Screen Crossmatch 09/17/20 09/17/20 09/17/20 11:42 11:46 13:49 WBC 21.0 H RBC 2.53 L Hgb 6.9 L Hct 21.1 L MCV 84 MCH 27 L MCHC 33 RDW 29.1 H Plt Count 73 L ABG pH 7.172 L POC ABG pCO2 38.9 POC ABG pO2 456.0 H POC ABG HCO3 13.9 POC ABG Base Excess -13.4 ABG Hemoglobin 6.8 L ABG Sodium 141.7 ABG Potassium 3.7 ABG Chloride 119.0 H ABG Glucose 143 H FiO2 100.0 Sodium Potassium Chloride Carbon Dioxide Anion Gap BUN Creatinine Estimated GFR BUN/Creatinine Ratio Glucose POC Glucose 116 H Calcium Arterial Blood Glucose 143 H Arterial Blood Ionized Calcium 4.7 Coronavirus (PCR) Blood Type Antibody Screen Crossmatch 09/17/20 09/17/20 09/17/20 13:49 13:49 Unknown WBC RBC Hgb Hct MCV MCH MCHC RDW Plt Count ABG pH POC ABG pCO2 POC ABG pO2 POC ABG HCO3 POC ABG Base Excess ABG Hemoglobin ABG Sodium ABG Potassium ABG Chloride ABG Glucose FiO2 Sodium 148 H Potassium 3.8 Chloride 117.9 H Carbon Dioxide 16 L Anion Gap 18 BUN 59 H Creatinine 1.9 H Estimated GFR 32 BUN/Creatinine Ratio 31 Glucose 126 H POC Glucose Calcium 7.6 L Arterial Blood Glucose Arterial Blood Ionized Calcium Coronavirus (PCR) Positive A Blood Type O POSITIVE Antibody Screen Negative Crossmatch See Detail
[2020-09-17] MEDS: PANTOPRAZOLE 80 MG in SODIUM CHLORIDE 0.9% 100 ML IV SCH (18:38)
[2020-09-17 22:43] LABS: Hematocrit 23.3 % (30.3-42.9); Hemoglobin 7.4 gm/dl (10.1-14.3)
[2020-09-18] MEDS: PANTOPRAZOLE 80 MG in SODIUM CHLORIDE 0.9% 100 ML IV SCH ×2 (03:24→16:30)
--- NOTE | 2020-09-18 03:29 | Cat Scan Report ---
CT head/brain wo con INDICATION: Evaluate for possible C.V.A.. TECHNIQUE: Routine CT head without contrast. All CT scans at this location are performed using CT dos e reduction for ALARA by means of automated exposure control. COMPARISON: None. FINDINGS: BRAIN / INTRACRANIAL CONTENTS: No acute hemorrhage, mass effect, midline shift, or hydrocephalus. No appreciable acute large territorial or lacunar infarct. There is a chronic appearing infarct in the r ight frontoparietal mid convexity. ORBITS: No significant abnormality of visualized orbits. SINUSES / MASTOIDS: Mild mucosal thickening bilateral maxillary sinuses. ADDITIONAL FINDINGS: Fluid layering in the pharynx likely related to intubation. IMPRESSION: 1. No acute findings. 2. 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 Signer Name: Cortez Green MD Signed: 09/18/2020 3:24 AM Workstation Name: [id number]
[2020-09-18] MEDS: K-LYTE 25 MEQ TABLET EFF PO SCH ×3 (05:27→11:41)
[2020-09-18] MEDS: INSULIN GLARGINE 100 UNITS/ML SUB-Q SCH (05:27)
[2020-09-18 06:13] LABS: Calcium 7.6 mg/dL (8.4-10.2)
[2020-09-18] MEDS: SODIUM BICARBONATE 75 MEQ in DEXTROSE 5% IN WATER 1,000 ML IV SCH ×2 (08:06→23:39)
[2020-09-18] MEDS: INSULIN LISPRO 100 UNIT/ML VIAL 3 mL SUB-Q SCH ×4 (08:37→16:31)
[2020-09-18] MEDS: PANTOPRAZOLE 40 MG TAB PO SCH (09:35)
[2020-09-18] MEDS: SODIUM BICARBONATE 650 MG TAB PO SCH (09:35)
--- NOTE | 2020-09-18 10:10 | XRay Report ---
ABDOMEN 1 VIEW INDICATION / CLINICAL INFORMATION: OGT placement. COMPARISON: None available. FINDINGS: TUBES / LINES: An orogastric tube terminates over the gastric fundus. The sidehole of the tube projec ts over the distal third of the esophagus. BOWEL GAS PATTERN: No significant abnormality. FREE AIR / EXTRALUMINAL GAS: None seen. ADDITIONAL FINDINGS: No significant additional findings. IMPRESSION: Orogastric tube as above. The tube may be advanced by 5-6 cm if there are no clinical contraindicatio ns. Signer Name: Kristopher Henriquez MD Signed: 09/18/2020 10:05 AM Workstation Name: [id number]
[2020-09-18] MEDS: hydroCHLOROthiazide 25 MG TAB PO SCH (10:26)
[2020-09-18] MEDS: SERTRALINE 50 MG TAB PO SCH (10:26)
[2020-09-18] MEDS: CALCITRIOL 0.5 MCG CAP PO SCH (10:26)
[2020-09-18] MEDS: MULTIVITAMINS 5 ML ORAL LIQUID PO SCH (10:26)
[2020-09-18] MEDS: FERROUS SULFATE 325 MG TAB PO SCH (10:26)
[2020-09-18] MEDS: ASPIRIN EC 325 MG TAB PO SCH (10:27)
[2020-09-18] MEDS: metOLazone 5 MG TAB PO SCH (10:27)
--- NOTE | 2020-09-18 10:44 | Progress Note ---
Assessment and Plan 64 y/o female with cardiac arrest this am, now intubated, not on sedation with severe metabolic acidosis. 1. Agree with bicarb drip. 2. Wean pressors for MAPS >65 3. Continue current vent support. 4. No sedatives whatsoever 5. Head CT yesterday was unremarkable 6. Repeat COVID testing, patient remains positive. 7. Follow up any renal recs 8. Agree with volume 9. Overall prognosis is guarded. Pulseless total time is not definite. Continue supportive measures. CCT 31 minutes. Subjective Date of service: 09/18/20 Principal diagnosis: Iron Def Anemia Interval history: Patient remains unresponsive on vent. HgB was stable from yesterday but not checked today. GI wanted NG tube to suction. ASA held this am. BUN increased compared to yesterday. Started on bicarb drip. ABG shows resolution of acidemia but some over ventilation. Objective Vital Signs - 12hr 09/17/20 09/17/20 09/18/20 23:01 23:30 00:00 Temperature 98.3 F Pulse Rate 91 H 79 Pulse Rate [ 79 Apical] Pulse Rate [ 80 From Monitor] Blood Pressure 144/68 O2 Sat by Pulse 100 Oximetry 09/18/20 09/18/20 09/18/20 03:52 04:00 04:42 Temperature 97.8 F Pulse Rate 64 83 Pulse Rate [ 66 Apical] Pulse Rate [ 64 From Monitor] Blood Pressure 163/70 O2 Sat by Pulse 100 Oximetry 09/18/20 09/18/20 07:55 08:00 Temperature Pulse Rate 71 92 H Pulse Rate [ Apical] Pulse Rate [ 83 From Monitor] Blood Pressure 99/45 O2 Sat by Pulse 100 Oximetry Constitutional: comatose ENT: other (orally intubated, not on sedation) Neck: supple Ascultation: Bilateral: clear Percussion: Bilateral: not dull Cardiovascular: regular rate and rhythm Extremities: other (bilateral amputee) CBC and BMP: 09/17/20 22:19 09/18/20 04:00 ABG, PT/INR, D-dimer: ABG ABG pH 7.421 (7.320-7.450) 09/18/20 04:14 POC ABG pCO2 27.5 mmHg (32.0-48.0) L 09/18/20 04:14 POC ABG pO2 143.4 mmHg (83-108) H 09/18/20 04:14 POC ABG HCO3 17.5 09/18/20 04:14 PT/INR, D-dimer PT 19.4 Sec. (12.2-14.9) H 09/14/20 19:57 INR 1.62 (0.87-1.13) H 09/14/20 19:57 D-Dimer 1076.18 ng/mlDDU (0-234) H 09/01/20 21:55 Abnormal lab findings: Abnormal Labs 09/01/20 09/01/20 09/01/20 21:40 21:40 21:55 WBC RBC 3.42 L Hgb 7.9 L Hct 25.6 L MCV 75 L MCH 23 L RDW 35.7 H Plt Count 113 L Lymph % (Auto) [place] % (Auto) Lymph # (Auto) Seg Neutrophils % Seg Neuts % (Manual) 92.0 H Lymphocytes % (Manual) 5.0 L Nucleated RBC % Seg Neutrophils # Seg Neutrophils # Man Lymphocytes # (Manual) 0.3 L PT INR D-Dimer 1076.18 H Heparin Anti-Xa Level ABG pH POC ABG pCO2 POC ABG pO2 ABG Hemoglobin ABG Chloride ABG Glucose Sodium Potassium 5.1 H Chloride 117.5 H Carbon Dioxide 12 L BUN 51 H Creatinine 2.1 H Glucose POC Glucose Lactic Acid Calcium 7.8 L Magnesium Iron TIBC Ferritin AST 59 H Alkaline Phosphatase 242 H Lactate Dehydrogenase C-Reactive Protein NT-Pro-B Natriuret Pep Total Protein 5.3 L Albumin 2.5 L PTH Intact Arterial Blood Glucose Arterial Blood Ionized Calcium Urine Creatinine Urine Total Protein Coronavirus (PCR) Crossmatch 09/01/20 09/01/20 09/01/20 21:55 21:55 21:55 WBC RBC Hgb Hct MCV MCH RDW Plt Count Lymph % (Auto) [place] % (Auto) Lymph # (Auto) Seg Neutrophils % Seg Neuts % (Manual) Lymphocytes % (Manual) Nucleated RBC % Seg Neutrophils # Seg Neutrophils # Man Lymphocytes # (Manual) PT INR D-Dimer Heparin Anti-Xa Level ABG pH POC ABG pCO2 POC ABG pO2 ABG Hemoglobin ABG Chloride ABG Glucose Sodium Potassium Chloride Carbon Dioxide BUN Creatinine Glucose POC Glucose Lactic Acid Calcium Magnesium Iron TIBC Ferritin 313.5 H AST Alkaline Phosphatase Lactate Dehydrogenase 435 H C-Reactive Protein 2.30 H NT-Pro-B Natriuret Pep 07996 H Total Protein Albumin PTH Intact Arterial Blood Glucose Arterial Blood Ionized Calcium Urine Creatinine Urine Total Protein Coronavirus (PCR) Crossmatch 09/01/20 09/02/20 09/02/20 23:15 03:12 05:46 WBC RBC Hgb Hct MCV MCH RDW Plt Count Lymph % (Auto) [place] % (Auto) Lymph # (Auto) Seg Neutrophils % Seg Neuts % (Manual) Lymphocytes % (Manual) Nucleated RBC % Seg Neutrophils # Seg Neutrophils # Man Lymphocytes # (Manual) PT INR D-Dimer Heparin Anti-Xa Level ABG pH POC ABG pCO2 POC ABG pO2 ABG Hemoglobin ABG Chloride ABG Glucose Sodium Potassium Chloride Carbon Dioxide BUN Creatinine Glucose POC Glucose 65 L Lactic Acid 0.60 L Calcium Magnesium Iron TIBC Ferritin AST Alkaline Phosphatase Lactate Dehydrogenase C-Reactive Protein NT-Pro-B Natriuret Pep Total Protein Albumin PTH Intact Arterial Blood Glucose Arterial Blood Ionized Calcium Urine Creatinine Urine Total Protein Coronavirus (PCR) Crossmatch See Detail 09/02/20 09/02/20 09/02/20 06:50 07:35 08:10 WBC RBC Hgb Hct MCV MCH RDW Plt Count Lymph % (Auto) [place] % (Auto) Lymph # (Auto) Seg Neutrophils % Seg Neuts % (Manual) Lymphocytes % (Manual) Nucleated RBC % Seg Neutrophils # Seg Neutrophils # Man Lymphocytes # (Manual) PT INR D-Dimer Heparin Anti-Xa Level ABG pH POC ABG pCO2 POC ABG pO2 ABG Hemoglobin ABG Chloride ABG Glucose Sodium Potassium Chloride Carbon Dioxide BUN Creatinine Glucose POC Glucose 60 L 116 H Lactic Acid 0.60 L Calcium Magnesium Iron TIBC Ferritin AST Alkaline Phosphatase Lactate Dehydrogenase C-Reactive Protein NT-Pro-B Natriuret Pep Total Protein Albumin PTH Intact Arterial Blood Glucose Arterial Blood Ionized Calcium Urine Creatinine Urine Total Protein Coronavirus (PCR) Crossmatch 09/02/20 09/02/20 09/02/20 08:10 08:10 12:07 WBC RBC 3.34 L Hgb 7.6 L Hct 24.7 L MCV 74 L MCH 23 L RDW 35.8 H Plt Count 110 L Lymph % (Auto) [place] % (Auto) Lymph # (Auto) Seg Neutrophils % Seg Neuts % (Manual) 97.0 H Lymphocytes % (Manual) 2.0 L Nucleated RBC % Seg Neutrophils # Seg Neutrophils # Man Lymphocytes # (Manual) 0.1 L PT INR D-Dimer Heparin Anti-Xa Level ABG pH POC ABG pCO2 POC ABG pO2 ABG Hemoglobin ABG Chloride ABG Glucose Sodium Potassium 5.2 H Chloride 120.1 H Carbon Dioxide 11 L BUN 51 H Creatinine 2.0 H Glucose POC Glucose 121 H Lactic Acid Calcium 7.4 L Magnesium Iron TIBC Ferritin AST Alkaline Phosphatase Lactate Dehydrogenase C-Reactive Protein NT-Pro-B Natriuret Pep Total Protein Albumin PTH Intact Arterial Blood Glucose Arterial Blood Ionized Calcium Urine Creatinine Urine Total Protein Coronavirus (PCR) Crossmatch 09/02/20 09/02/20 09/03/20 13:52 19:50 00:32 WBC RBC Hgb 7.9 L Hct 27.4 L MCV MCH RDW Plt Count 133 L Lymph % (Auto) [place] % (Auto) Lymph # (Auto) Seg Neutrophils % Seg Neuts % (Manual) Lymphocytes % (Manual) Nucleated RBC % Seg Neutrophils # Seg Neutrophils # Man Lymphocytes # (Manual) PT INR D-Dimer Heparin Anti-Xa Level 0.78 H ABG pH POC ABG pCO2 POC ABG pO2 ABG Hemoglobin ABG Chloride ABG Glucose Sodium Potassium Chloride Carbon Dioxide BUN Creatinine Glucose POC Glucose 206 H Lactic Acid Calcium Magnesium Iron TIBC Ferritin AST Alkaline Phosphatase Lactate Dehydrogenase C-Reactive Protein NT-Pro-B Natriuret Pep Total Protein Albumin PTH Intact Arterial Blood Glucose Arterial Blood Ionized Calcium Urine Creatinine Urine Total Protein Coronavirus (PCR) Crossmatch 09/03/20 09/03/20 09/03/20 05:17 05:17 05:17 WBC RBC 2.87 L Hgb 6.4 L Hct 21.5 L MCV 75 L MCH 22 L RDW 35.3 H Plt Count Lymph % (Auto) [place] % (Auto) Lymph # (Auto) Seg Neutrophils % Seg Neuts % (Manual) 76.0 H Lymphocytes % (Manual) Nucleated RBC % Seg Neutrophils # Seg Neutrophils # Man 7.8 H Lymphocytes # (Manual) PT 17.0 H INR 1.35 H D-Dimer Heparin Anti-Xa Level 0.94 H ABG pH POC ABG pCO2 POC ABG pO2 ABG Hemoglobin ABG Chloride ABG Glucose Sodium 147 H Potassium 5.2 H Chloride 123.4 H Carbon Dioxide 11 L BUN 59 H Creatinine 2.0 H Glucose 204 H POC Glucose Lactic Acid Calcium 7.4 L Magnesium Iron TIBC Ferritin AST Alkaline Phosphatase Lactate Dehydrogenase C-Reactive Protein NT-Pro-B Natriuret Pep Total Protein Albumin PTH Intact Arterial Blood Glucose Arterial Blood Ionized Calcium Urine Creatinine Urine Total Protein Coronavirus (PCR) Crossmatch 09/03/20 09/03/20 09/03/20 06:05 08:48 11:43 WBC RBC Hgb Hct MCV MCH RDW Plt Count Lymph % (Auto) [place] % (Auto) Lymph # (Auto) Seg Neutrophils % Seg Neuts % (Manual) Lymphocytes % (Manual) Nucleated RBC % Seg Neutrophils # Seg Neutrophils # Man Lymphocytes # (Manual) PT INR D-Dimer Heparin Anti-Xa Level ABG pH POC ABG pCO2 POC ABG pO2 ABG Hemoglobin ABG Chloride ABG Glucose Sodium Potassium Chloride Carbon Dioxide BUN Creatinine Glucose POC Glucose 190 H 223 H 242 H Lactic Acid Calcium Magnesium Iron TIBC Ferritin AST Alkaline Phosphatase Lactate Dehydrogenase C-Reactive Protein NT-Pro-B Natriuret Pep Total Protein Albumin PTH Intact Arterial Blood Glucose Arterial Blood Ionized Calcium Urine Creatinine Urine Total Protein Coronavirus (PCR) Crossmatch 09/03/20 09/03/20 09/04/20 16:21 23:37 05:18 WBC RBC 2.26 L Hgb 5.3 L* Hct 17.1 L* MCV 76 L MCH 24 L RDW 33.7 H Plt Count Lymph % (Auto) 8.0 L [place] % (Auto) 7.5 H Lymph # (Auto) 0.7 L Seg Neutrophils % 84.3 H Seg Neuts % (Manual) Lymphocytes % (Manual) Nucleated RBC % Seg Neutrophils # Seg Neutrophils # Man Lymphocytes # (Manual) PT INR D-Dimer Heparin Anti-Xa Level ABG pH POC ABG pCO2 POC ABG pO2 ABG Hemoglobin ABG Chloride ABG Glucose Sodium Potassium Chloride Carbon Dioxide BUN Creatinine Glucose POC Glucose 280 H 228 H Lactic Acid Calcium Magnesium Iron TIBC Ferritin AST Alkaline Phosphatase Lactate Dehydrogenase C-Reactive Protein NT-Pro-B Natriuret Pep Total Protein Albumin PTH Intact Arterial Blood Glucose Arterial Blood Ionized Calcium Urine Creatinine Urine Total Protein Coronavirus (PCR) Crossmatch 09/04/20 09/04/20 09/04/20 05:18 05:18 05:18 WBC RBC Hgb Hct MCV MCH RDW Plt Count Lymph % (Auto) [place] % (Auto) Lymph # (Auto) Seg Neutrophils % Seg Neuts % (Manual) Lymphocytes % (Manual) Nucleated RBC % Seg Neutrophils # Seg Neutrophils # Man Lymphocytes # (Manual) PT 19.6 H INR 1.62 H D-Dimer Heparin Anti-Xa Level ABG pH POC ABG pCO2 POC ABG pO2 ABG Hemoglobin ABG Chloride ABG Glucose Sodium 149 H Potassium 5.2 H Chloride 125.6 H Carbon Dioxide 14 L BUN 86 H Creatinine 2.3 H Glucose 232 H POC Glucose Lactic Acid Calcium 7.5 L Magnesium Iron TIBC Ferritin AST Alkaline Phosphatase 144 H Lactate Dehydrogenase C-Reactive Protein NT-Pro-B Natriuret Pep Total Protein 4.1 L D Albumin 1.9 L PTH Intact 820.4 H Arterial Blood Glucose Arterial Blood Ionized Calcium Urine Creatinine Urine Total Protein Coronavirus (PCR) Crossmatch 09/04/20 09/04/20 09/04/20 06:33 09:03 12:08 WBC RBC Hgb Hct MCV MCH RDW Plt Count Lymph % (Auto) [place] % (Auto) Lymph # (Auto) Seg Neutrophils % Seg Neuts % (Manual) Lymphocytes % (Manual) Nucleated RBC % Seg Neutrophils # Seg Neutrophils # Man Lymphocytes # (Manual) PT INR D-Dimer Heparin Anti-Xa Level ABG pH POC ABG pCO2 POC ABG pO2 ABG Hemoglobin ABG Chloride ABG Glucose Sodium Potassium Chloride Carbon Dioxide BUN Creatinine Glucose POC Glucose 224 H 264 H 247 H Lactic Acid Calcium Magnesium Iron TIBC Ferritin AST Alkaline Phosphatase Lactate Dehydrogenase C-Reactive Protein NT-Pro-B Natriuret Pep Total Protein Albumin PTH Intact Arterial Blood Glucose Arterial Blood Ionized Calcium Urine Creatinine Urine Total Protein Coronavirus (PCR) Crossmatch 09/04/20 09/04/20 09/04/20 15:01 18:58 22:28 WBC RBC Hgb 8.7 L D Hct 27.4 L D MCV MCH RDW Plt Count Lymph % (Auto) [place] % (Auto) Lymph # (Auto) Seg Neutrophils % Seg Neuts % (Manual) Lymphocytes % (Manual) Nucleated RBC % Seg Neutrophils # Seg Neutrophils # Man Lymphocytes # (Manual) PT INR D-Dimer Heparin Anti-Xa Level ABG pH POC ABG pCO2 POC ABG pO2 ABG Hemoglobin ABG Chloride ABG Glucose Sodium Potassium Chloride Carbon Dioxide BUN Creatinine Glucose POC Glucose 202 H 181 H Lactic Acid Calcium Magnesium Iron TIBC Ferritin AST Alkaline Phosphatase Lactate Dehydrogenase C-Reactive Protein NT-Pro-B Natriuret Pep Total Protein Albumin PTH Intact Arterial Blood Glucose Arterial Blood Ionized Calcium Urine Creatinine Urine Total Protein Coronavirus (PCR) Crossmatch 09/05/20 09/05/20 09/05/20 00:55 07:56 08:28 WBC RBC Hgb 7.8 L Hct 23.8 L MCV MCH RDW Plt Count Lymph % (Auto) [place] % (Auto) Lymph # (Auto) Seg Neutrophils % Seg Neuts % (Manual) Lymphocytes % (Manual) Nucleated RBC % Seg Neutrophils # Seg Neutrophils # Man Lymphocytes # (Manual) PT 23.2 H INR 2.01 H D-Dimer Heparin Anti-Xa Level ABG pH POC ABG pCO2 POC ABG pO2 ABG Hemoglobin ABG Chloride ABG Glucose Sodium Potassium Chloride Carbon Dioxide BUN Creatinine Glucose POC Glucose 176 H Lactic Acid Calcium Magnesium Iron TIBC Ferritin AST Alkaline Phosphatase Lactate Dehydrogenase C-Reactive Protein NT-Pro-B Natriuret Pep Total Protein Albumin PTH Intact Arterial Blood Glucose Arterial Blood Ionized Calcium Urine Creatinine Urine Total Protein Coronavirus (PCR) Crossmatch 09/05/20 09/05/20 09/05/20 08:28 08:28 12:14 WBC 11.8 H RBC 2.93 L Hgb 7.7 L Hct 23.2 L MCV MCH 26 L RDW 28.4 H Plt Count Lymph % (Auto) 9.2 L [place] % (Auto) Lymph # (Auto) 1.1 L Seg Neutrophils % 85.4 H Seg Neuts % (Manual) Lymphocytes % (Manual) Nucleated RBC % Seg Neutrophils # 10.1 H Seg Neutrophils # Man Lymphocytes # (Manual) PT INR D-Dimer Heparin Anti-Xa Level ABG pH POC ABG pCO2 POC ABG pO2 ABG Hemoglobin ABG Chloride ABG Glucose Sodium 152 H Potassium Chloride 125.7 H Carbon Dioxide 13 L BUN 86 H Creatinine 2.3 H Glucose 152 H POC Glucose 131 H Lactic Acid Calcium 7.9 L Magnesium Iron TIBC Ferritin AST Alkaline Phosphatase 155 H Lactate Dehydrogenase C-Reactive Protein NT-Pro-B Natriuret Pep Total Protein 4.6 L Albumin 2.5 L PTH Intact Arterial Blood Glucose Arterial Blood Ionized Calcium Urine Creatinine Urine Total Protein Coronavirus (PCR) Crossmatch 09/05/20 09/05/20 09/06/20 18:58 21:22 00:03 WBC RBC Hgb 8.0 L 7.4 L Hct 25.7 L 22.8 L MCV MCH RDW Plt Count Lymph % (Auto) [place] % (Auto) Lymph # (Auto) Seg Neutrophils % Seg Neuts % (Manual) Lymphocytes % (Manual) Nucleated RBC % Seg Neutrophils # Seg Neutrophils # Man Lymphocytes # (Manual) PT INR D-Dimer Heparin Anti-Xa Level ABG pH POC ABG pCO2 POC ABG pO2 ABG Hemoglobin ABG Chloride ABG Glucose Sodium Potassium Chloride Carbon Dioxide BUN Creatinine Glucose POC Glucose 171 H Lactic Acid Calcium Magnesium Iron TIBC Ferritin AST Alkaline Phosphatase Lactate Dehydrogenase C-Reactive Protein NT-Pro-B Natriuret Pep Total Protein Albumin PTH Intact Arterial Blood Glucose Arterial Blood Ionized Calcium Urine Creatinine Urine Total Protein Coronavirus (PCR) Crossmatch 09/06/20 09/06/20 09/06/20 06:43 06:43 06:43 WBC RBC 2.76 L Hgb 7.3 L Hct 21.9 L MCV MCH 26 L RDW 29.0 H Plt Count Lymph % (Auto) [place] % (Auto) Lymph # (Auto) Seg Neutrophils % Seg Neuts % (Manual) 94.0 H Lymphocytes % (Manual) 2.0 L Nucleated RBC % 3.0 H Seg Neutrophils # Seg Neutrophils # Man 8.6 H Lymphocytes # (Manual) 0.2 L PT 26.4 H INR 2.37 H D-Dimer Heparin Anti-Xa Level ABG pH POC ABG pCO2 POC ABG pO2 ABG Hemoglobin ABG Chloride ABG Glucose Sodium 151 H Potassium Chloride 125.5 H Carbon Dioxide 12 L BUN 83 H Creatinine 2.3 H Glucose 130 H POC Glucose Lactic Acid Calcium 8.2 L Magnesium Iron TIBC Ferritin AST Alkaline Phosphatase 157 H Lactate Dehydrogenase C-Reactive Protein NT-Pro-B Natriuret Pep Total Protein 4.5 L Albumin 2.4 L PTH Intact Arterial Blood Glucose Arterial Blood Ionized Calcium Urine Creatinine Urine Total Protein Coronavirus (PCR) Crossmatch 09/06/20 09/06/20 09/06/20 06:52 08:31 11:31 WBC RBC Hgb Hct MCV MCH RDW Plt Count Lymph % (Auto) [place] % (Auto) Lymph # (Auto) Seg Neutrophils % Seg Neuts % (Manual) Lymphocytes % (Manual) Nucleated RBC % Seg Neutrophils # Seg Neutrophils # Man Lymphocytes # (Manual) PT INR D-Dimer Heparin Anti-Xa Level ABG pH POC ABG pCO2 POC ABG pO2 ABG Hemoglobin ABG Chloride ABG Glucose Sodium Potassium Chloride Carbon Dioxide BUN Creatinine Glucose POC Glucose 148 H 171 H Lactic Acid Calcium Magnesium Iron TIBC Ferritin AST Alkaline Phosphatase Lactate Dehydrogenase C-Reactive Protein NT-Pro-B Natriuret Pep Total Protein Albumin PTH Intact Arterial Blood Glucose Arterial Blood Ionized Calcium Urine Creatinine 43.2 H Urine Total Protein 298 H Coronavirus (PCR) Crossmatch 09/06/20 09/06/20 09/06/20 14:59 18:03 21:36 WBC RBC Hgb 7.7 L Hct 24.5 L MCV MCH RDW Plt Count Lymph % (Auto) [place] % (Auto) Lymph # (Auto) Seg Neutrophils % Seg Neuts % (Manual) Lymphocytes % (Manual) Nucleated RBC % Seg Neutrophils # Seg Neutrophils # Man Lymphocytes # (Manual) PT INR D-Dimer Heparin Anti-Xa Level ABG pH POC ABG pCO2 POC ABG pO2 ABG Hemoglobin ABG Chloride ABG Glucose Sodium Potassium Chloride Carbon Dioxide BUN Creatinine Glucose POC Glucose 135 H 131 H Lactic Acid Calcium Magnesium Iron TIBC Ferritin AST Alkaline Phosphatase Lactate Dehydrogenase C-Reactive Protein NT-Pro-B Natriuret Pep Total Protein Albumin PTH Intact Arterial Blood Glucose Arterial Blood Ionized Calcium Urine Creatinine Urine Total Protein Coronavirus (PCR) Crossmatch 09/07/20 09/07/20 09/07/20 01:27 09:13 09:13 WBC RBC 3.13 L Hgb 7.5 L 8.2 L Hct 23.4 L 25.5 L MCV MCH 26 L RDW 28.6 H Plt Count Lymph % (Auto) [place] % (Auto) Lymph # (Auto) Seg Neutrophils % Seg Neuts % (Manual) 94.0 H Lymphocytes % (Manual) 3.0 L Nucleated RBC % 2.0 H Seg Neutrophils # Seg Neutrophils # Man 9.5 H Lymphocytes # (Manual) 0.3 L PT 29.6 H INR 2.74 H D-Dimer Heparin Anti-Xa Level ABG pH POC ABG pCO2 POC ABG pO2 ABG Hemoglobin ABG Chloride ABG Glucose Sodium Potassium Chloride Carbon Dioxide BUN Creatinine Glucose POC Glucose Lactic Acid Calcium Magnesium Iron TIBC Ferritin AST Alkaline Phosphatase Lactate Dehydrogenase C-Reactive Protein NT-Pro-B Natriuret Pep Total Protein Albumin PTH Intact Arterial Blood Glucose Arterial Blood Ionized Calcium Urine Creatinine Urine Total Protein Coronavirus (PCR) Crossmatch 09/07/20 09/07/20 09/07/20 09:13 17:15 18:38 WBC RBC Hgb Hct MCV MCH RDW Plt Count Lymph % (Auto) [place] % (Auto) Lymph # (Auto) Seg Neutrophils % Seg Neuts % (Manual) Lymphocytes % (Manual) Nucleated RBC % Seg Neutrophils # Seg Neutrophils # Man Lymphocytes # (Manual) PT INR D-Dimer Heparin Anti-Xa Level ABG pH POC ABG pCO2 POC ABG pO2 ABG Hemoglobin ABG Chloride ABG Glucose Sodium 152 H Potassium Chloride 129.1 H Carbon Dioxide 13 L BUN 78 H Creatinine 2.4 H Glucose 111 H POC Glucose 59 L 107 H Lactic Acid Calcium Magnesium Iron 28 L TIBC 188 L Ferritin AST Alkaline Phosphatase 191 H Lactate Dehydrogenase C-Reactive Protein NT-Pro-B Natriuret Pep Total Protein 5.0 L Albumin 2.4 L PTH Intact Arterial Blood Glucose Arterial Blood Ionized Calcium Urine Creatinine Urine Total Protein Coronavirus (PCR) Crossmatch 09/07/20 09/08/20 09/08/20 Unknown 05:18 05:18 WBC 12.0 H RBC 2.93 L Hgb 7.6 L Hct 23.7 L MCV MCH 26 L RDW 29.3 H Plt Count 130 L Lymph % (Auto) [place] % (Auto) Lymph # (Auto) Seg Neutrophils % 78.8 H Seg Neuts % (Manual) Lymphocytes % (Manual) Nucleated RBC % Seg Neutrophils # 9.5 H Seg Neutrophils # Man Lymphocytes # (Manual) PT 34.0 H INR 3.27 H D-Dimer Heparin Anti-Xa Level ABG pH POC ABG pCO2 POC ABG pO2 ABG Hemoglobin ABG Chloride ABG Glucose Sodium Potassium Chloride Carbon Dioxide BUN Creatinine Glucose POC Glucose Lactic Acid Calcium Magnesium Iron TIBC Ferritin AST Alkaline Phosphatase Lactate Dehydrogenase C-Reactive Protein NT-Pro-B Natriuret Pep Total Protein Albumin PTH Intact Arterial Blood Glucose Arterial Blood Ionized Calcium Urine Creatinine Urine Total Protein Coronavirus (PCR) Positive A Crossmatch 09/08/20 09/08/20 09/08/20 05:18 12:21 22:01 WBC RBC Hgb Hct MCV MCH RDW Plt Count Lymph % (Auto) [place] % (Auto) Lymph # (Auto) Seg Neutrophils % Seg Neuts % (Manual) Lymphocytes % (Manual) Nucleated RBC % Seg Neutrophils # Seg Neutrophils # Man Lymphocytes # (Manual) PT INR D-Dimer Heparin Anti-Xa Level ABG pH POC ABG pCO2 POC ABG pO2 ABG Hemoglobin ABG Chloride ABG Glucose Sodium 148 H Potassium Chloride 127.0 H Carbon Dioxide 12 L BUN 77 H Creatinine 2.3 H Glucose 60 L POC Glucose 110 H 129 H Lactic Acid Calcium Magnesium Iron TIBC Ferritin AST Alkaline Phosphatase 185 H Lactate Dehydrogenase C-Reactive Protein NT-Pro-B Natriuret Pep Total Protein 5.0 L Albumin 2.4 L PTH Intact Arterial Blood Glucose Arterial Blood Ionized Calcium Urine Creatinine Urine Total Protein Coronavirus (PCR) Crossmatch 09/09/20 09/09/20 09/09/20 09:06 09:06 09:06 WBC 11.5 H RBC 2.92 L Hgb 7.5 L Hct 23.9 L MCV MCH 26 L RDW 29.4 H Plt Count 119 L Lymph % (Auto) [place] % (Auto) Lymph # (Auto) Seg Neutrophils % Seg Neuts % (Manual) 98.0 H Lymphocytes % (Manual) 0 L Nucleated RBC % Seg Neutrophils # Seg Neutrophils # Man 11.3 H Lymphocytes # (Manual) 0.0 L PT 19.3 H INR 1.59 H D-Dimer Heparin Anti-Xa Level ABG pH POC ABG pCO2 POC ABG pO2 ABG Hemoglobin ABG Chloride ABG Glucose Sodium 153 H Potassium Chloride 128.7 H Carbon Dioxide 13 L BUN 70 H Creatinine 2.3 H Glucose 102 H POC Glucose Lactic Acid Calcium Magnesium Iron TIBC Ferritin AST Alkaline Phosphatase 186 H Lactate Dehydrogenase C-Reactive Protein NT-Pro-B Natriuret Pep Total Protein 4.4 L Albumin 2.4 L PTH Intact Arterial Blood Glucose Arterial Blood Ionized Calcium Urine Creatinine Urine Total Protein Coronavirus (PCR) Crossmatch 09/09/20 09/10/20 09/10/20 23:08 05:12 05:12 WBC 12.1 H RBC 2.66 L Hgb 6.8 L Hct 22.0 L MCV MCH 26 L RDW 29.9 H Plt Count 110 L Lymph % (Auto) [place] % (Auto) Lymph # (Auto) Seg Neutrophils % Seg Neuts % (Manual) 97.0 H Lymphocytes % (Manual) 0 L Nucleated RBC % Seg Neutrophils # Seg Neutrophils # Man 11.7 H Lymphocytes # (Manual) 0.0 L PT INR D-Dimer Heparin Anti-Xa Level ABG pH POC ABG pCO2 POC ABG pO2 ABG Hemoglobin ABG Chloride ABG Glucose Sodium 153 H Potassium Chloride 126.8 H Carbon Dioxide 14 L BUN 69 H Creatinine 2.2 H Glucose 129 H POC Glucose 142 H Lactic Acid Calcium 8.1 L Magnesium Iron TIBC Ferritin AST Alkaline Phosphatase 180 H Lactate Dehydrogenase C-Reactive Protein NT-Pro-B Natriuret Pep Total Protein 4.2 L Albumin 2.3 L PTH Intact Arterial Blood Glucose Arterial Blood Ionized Calcium Urine Creatinine Urine Total Protein Coronavirus (PCR) Crossmatch 09/10/20 09/10/20 09/10/20 05:12 07:59 12:23 WBC RBC Hgb Hct MCV MCH RDW Plt Count Lymph % (Auto) [place] % (Auto) Lymph # (Auto) Seg Neutrophils % Seg Neuts % (Manual) Lymphocytes % (Manual) Nucleated RBC % Seg Neutrophils # Seg Neutrophils # Man Lymphocytes # (Manual) PT 16.7 H INR 1.32 H D-Dimer Heparin Anti-Xa Level ABG pH POC ABG pCO2 POC ABG pO2 ABG Hemoglobin ABG Chloride ABG Glucose Sodium Potassium Chloride Carbon Dioxide BUN Creatinine Glucose POC Glucose 162 H 148 H Lactic Acid Calcium Magnesium Iron TIBC Ferritin AST Alkaline Phosphatase Lactate Dehydrogenase C-Reactive Protein NT-Pro-B Natriuret Pep Total Protein Albumin PTH Intact Arterial Blood Glucose Arterial Blood Ionized Calcium Urine Creatinine Urine Total Protein Coronavirus (PCR) Crossmatch 09/10/20 09/10/20 09/10/20 13:48 17:04 21:55 WBC RBC Hgb Hct MCV MCH RDW Plt Count Lymph % (Auto) [place] % (Auto) Lymph # (Auto) Seg Neutrophils % Seg Neuts % (Manual) Lymphocytes % (Manual) Nucleated RBC % Seg Neutrophils # Seg Neutrophils # Man Lymphocytes # (Manual) PT INR D-Dimer Heparin Anti-Xa Level ABG pH POC ABG pCO2 POC ABG pO2 ABG Hemoglobin ABG Chloride ABG Glucose Sodium Potassium Chloride Carbon Dioxide BUN Creatinine Glucose POC Glucose 162 H 155 H Lactic Acid Calcium Magnesium Iron TIBC Ferritin AST Alkaline Phosphatase Lactate Dehydrogenase C-Reactive Protein NT-Pro-B Natriuret Pep Total Protein Albumin PTH Intact Arterial Blood Glucose Arterial Blood Ionized Calcium Urine Creatinine Urine Total Protein Coronavirus (PCR) Crossmatch See Detail 09/11/20 09/11/20 09/11/20 08:25 08:25 08:25 WBC 13.2 H RBC 2.68 L Hgb 7.1 L Hct 21.7 L MCV MCH 26 L RDW 31.2 H Plt Count 92 L Lymph % (Auto) [place] % (Auto) Lymph # (Auto) Seg Neutrophils % Seg Neuts % (Manual) 97.0 H Lymphocytes % (Manual) 0 L Nucleated RBC % 1.0 H Seg Neutrophils # Seg Neutrophils # Man 12.8 H Lymphocytes # (Manual) 0.0 L PT 18.0 H INR 1.46 H D-Dimer Heparin Anti-Xa Level ABG pH POC ABG pCO2 POC ABG pO2 ABG Hemoglobin ABG Chloride ABG Glucose Sodium 151 H Potassium Chloride 126.7 H Carbon Dioxide 14 L BUN 72 H Creatinine 2.1 H Glucose POC Glucose Lactic Acid Calcium 8.1 L Magnesium Iron TIBC Ferritin AST Alkaline Phosphatase Lactate Dehydrogenase C-Reactive Protein NT-Pro-B Natriuret Pep Total Protein Albumin PTH Intact Arterial Blood Glucose Arterial Blood Ionized Calcium Urine Creatinine Urine Total Protein Coronavirus (PCR) Crossmatch 09/11/20 09/11/20 09/11/20 13:40 17:50 19:24 WBC RBC Hgb Hct MCV MCH RDW Plt Count Lymph % (Auto) [place] % (Auto) Lymph # (Auto) Seg Neutrophils % Seg Neuts % (Manual) Lymphocytes % (Manual) Nucleated RBC % Seg Neutrophils # Seg Neutrophils # Man Lymphocytes # (Manual) PT INR D-Dimer Heparin Anti-Xa Level ABG pH POC ABG pCO2 POC ABG pO2 ABG Hemoglobin ABG Chloride ABG Glucose Sodium Potassium Chloride Carbon Dioxide BUN Creatinine Glucose POC Glucose 67 L 52 L 193 H Lactic Acid Calcium Magnesium Iron TIBC Ferritin AST Alkaline Phosphatase Lactate Dehydrogenase C-Reactive Protein NT-Pro-B Natriuret Pep Total Protein Albumin PTH Intact Arterial Blood Glucose Arterial Blood Ionized Calcium Urine Creatinine Urine Total Protein Coronavirus (PCR) Crossmatch 09/11/20 09/12/20 09/12/20 21:24 06:16 06:16 WBC RBC Hgb Hct MCV MCH RDW Plt Count Lymph % (Auto) [place] % (Auto) Lymph # (Auto) Seg Neutrophils % Seg Neuts % (Manual) Lymphocytes % (Manual) Nucleated RBC % Seg Neutrophils # Seg Neutrophils # Man Lymphocytes # (Manual) PT 16.7 H INR 1.34 H D-Dimer Heparin Anti-Xa Level ABG pH POC ABG pCO2 POC ABG pO2 ABG Hemoglobin ABG Chloride ABG Glucose Sodium 149 H Potassium Chloride 124.7 H Carbon Dioxide 15 L BUN 67 H Creatinine 2.0 H Glucose 134 H POC Glucose 184 H Lactic Acid Calcium 8.1 L Magnesium Iron TIBC Ferritin AST Alkaline Phosphatase Lactate Dehydrogenase C-Reactive Protein NT-Pro-B Natriuret Pep Total Protein Albumin PTH Intact Arterial Blood Glucose Arterial Blood Ionized Calcium Urine Creatinine Urine Total Protein Coronavirus (PCR) Crossmatch 09/12/20 09/12/20 09/12/20 06:16 08:06 11:11 WBC 17.4 H RBC 2.55 L Hgb 6.7 L Hct 22.3 L MCV MCH 26 L RDW 31.8 H Plt Count 104 L Lymph % (Auto) [place] % (Auto) Lymph # (Auto) Seg Neutrophils % Seg Neuts % (Manual) 94.0 H Lymphocytes % (Manual) 1.0 L Nucleated RBC % 2.0 H Seg Neutrophils # Seg Neutrophils # Man 16.4 H Lymphocytes # (Manual) 0.2 L PT INR D-Dimer Heparin Anti-Xa Level ABG pH POC ABG pCO2 POC ABG pO2 ABG Hemoglobin ABG Chloride ABG Glucose Sodium Potassium Chloride Carbon Dioxide BUN Creatinine Glucose POC Glucose 127 H 128 H Lactic Acid Calcium Magnesium Iron TIBC Ferritin AST Alkaline Phosphatase Lactate Dehydrogenase C-Reactive Protein NT-Pro-B Natriuret Pep Total Protein Albumin PTH Intact Arterial Blood Glucose Arterial Blood Ionized Calcium Urine Creatinine Urine Total Protein Coronavirus (PCR) Crossmatch 09/12/20 09/13/20 09/13/20 16:30 00:02 07:26 WBC RBC Hgb Hct MCV MCH RDW Plt Count Lymph % (Auto) [place] % (Auto) Lymph # (Auto) Seg Neutrophils % Seg Neuts % (Manual) Lymphocytes % (Manual) Nucleated RBC % Seg Neutrophils # Seg Neutrophils # Man Lymphocytes # (Manual) PT 19.5 H INR 1.63 H D-Dimer Heparin Anti-Xa Level ABG pH POC ABG pCO2 POC ABG pO2 ABG Hemoglobin ABG Chloride ABG Glucose Sodium Potassium Chloride Carbon Dioxide BUN Creatinine Glucose POC Glucose 145 H 247 H Lactic Acid Calcium Magnesium Iron TIBC Ferritin AST Alkaline Phosphatase Lactate Dehydrogenase C-Reactive Protein NT-Pro-B Natriuret Pep Total Protein Albumin PTH Intact Arterial Blood Glucose Arterial Blood Ionized Calcium Urine Creatinine Urine Total Protein Coronavirus (PCR) Crossmatch 09/13/20 09/13/20 09/13/20 07:26 09:56 10:07 WBC 15.3 H RBC 2.62 L Hgb 7.1 L Hct 22.6 L MCV MCH 27 L RDW 28.7 H Plt Count 89 L Lymph % (Auto) [place] % (Auto) Lymph # (Auto) Seg Neutrophils % Seg Neuts % (Manual) Lymphocytes % (Manual) Nucleated RBC % Seg Neutrophils # Seg Neutrophils # Man Lymphocytes # (Manual) PT INR D-Dimer Heparin Anti-Xa Level ABG pH POC ABG pCO2 POC ABG pO2 ABG Hemoglobin ABG Chloride ABG Glucose Sodium 146 H Potassium Chloride 121.3 H Carbon Dioxide 13 L BUN 67 H Creatinine 1.8 H Glucose 194 H POC Glucose 233 H Lactic Acid Calcium 8.2 L Magnesium 1.40 L Iron TIBC Ferritin AST Alkaline Phosphatase Lactate Dehydrogenase C-Reactive Protein NT-Pro-B Natriuret Pep Total Protein Albumin PTH Intact Arterial Blood Glucose Arterial Blood Ionized Calcium Urine Creatinine Urine Total Protein Coronavirus (PCR) Crossmatch 09/13/20 09/13/20 09/14/20 13:37 17:17 00:42 WBC RBC Hgb Hct MCV MCH RDW Plt Count Lymph % (Auto) [place] % (Auto) Lymph # (Auto) Seg Neutrophils % Seg Neuts % (Manual) Lymphocytes % (Manual) Nucleated RBC % Seg Neutrophils # Seg Neutrophils # Man Lymphocytes # (Manual) PT INR D-Dimer Heparin Anti-Xa Level ABG pH POC ABG pCO2 POC ABG pO2 ABG Hemoglobin ABG Chloride ABG Glucose Sodium Potassium Chloride Carbon Dioxide BUN Creatinine Glucose POC Glucose 181 H 148 H 200 H Lactic Acid Calcium Magnesium Iron TIBC Ferritin AST Alkaline Phosphatase Lactate Dehydrogenase C-Reactive Protein NT-Pro-B Natriuret Pep Total Protein Albumin PTH Intact Arterial Blood Glucose Arterial Blood Ionized Calcium Urine Creatinine Urine Total Protein Coronavirus (PCR) Crossmatch 09/14/20 09/14/20 09/14/20 10:08 14:54 19:57 WBC RBC Hgb Hct MCV MCH RDW Plt Count Lymph % (Auto) [place] % (Auto) Lymph # (Auto) Seg Neutrophils % Seg Neuts % (Manual) Lymphocytes % (Manual) Nucleated RBC % Seg Neutrophils # Seg Neutrophils # Man Lymphocytes # (Manual) PT 19.4 H INR 1.62 H D-Dimer Heparin Anti-Xa Level ABG pH POC ABG pCO2 POC ABG pO2 ABG Hemoglobin ABG Chloride ABG Glucose Sodium Potassium Chloride Carbon Dioxide BUN Creatinine Glucose POC Glucose 204 H 138 H Lactic Acid Calcium Magnesium Iron TIBC Ferritin AST Alkaline Phosphatase Lactate Dehydrogenase C-Reactive Protein NT-Pro-B Natriuret Pep Total Protein Albumin PTH Intact Arterial Blood Glucose Arterial Blood Ionized Calcium Urine Creatinine Urine Total Protein Coronavirus (PCR) Crossmatch 09/14/20 09/14/20 09/15/20 19:57 23:02 08:34 WBC RBC Hgb Hct MCV MCH RDW Plt Count Lymph % (Auto) [place] % (Auto) Lymph # (Auto) Seg Neutrophils % Seg Neuts % (Manual) Lymphocytes % (Manual) Nucleated RBC % Seg Neutrophils # Seg Neutrophils # Man Lymphocytes # (Manual) PT INR D-Dimer Heparin Anti-Xa Level ABG pH POC ABG pCO2 POC ABG pO2 ABG Hemoglobin ABG Chloride ABG Glucose Sodium Potassium Chloride 117.8 H Carbon Dioxide 10 L BUN 26 H Creatinine 1.8 H Glucose 132 H POC Glucose 173 H 151 H Lactic Acid Calcium 8.2 L Magnesium Iron TIBC Ferritin AST Alkaline Phosphatase Lactate Dehydrogenase C-Reactive Protein NT-Pro-B Natriuret Pep Total Protein Albumin PTH Intact Arterial Blood Glucose Arterial Blood Ionized Calcium Urine Creatinine Urine Total Protein Coronavirus (PCR) Crossmatch 09/16/20 09/16/20 09/16/20 09:30 13:17 13:44 WBC RBC Hgb Hct MCV MCH RDW Plt Count Lymph % (Auto) [place] % (Auto) Lymph # (Auto) Seg Neutrophils % Seg Neuts % (Manual) Lymphocytes % (Manual) Nucleated RBC % Seg Neutrophils # Seg Neutrophils # Man Lymphocytes # (Manual) PT INR D-Dimer Heparin Anti-Xa Level ABG pH POC ABG pCO2 POC ABG pO2 ABG Hemoglobin ABG Chloride ABG Glucose Sodium Potassium Chloride 115.8 H Carbon Dioxide 16 L BUN 53 H Creatinine 1.8 H Glucose 148 H POC Glucose 114 H 130 H Lactic Acid Calcium 8.0 L Magnesium Iron TIBC Ferritin AST Alkaline Phosphatase Lactate Dehydrogenase C-Reactive Protein NT-Pro-B Natriuret Pep Total Protein Albumin PTH Intact Arterial Blood Glucose Arterial Blood Ionized Calcium Urine Creatinine Urine Total Protein Coronavirus (PCR) Crossmatch 09/16/20 09/16/20 09/16/20 13:44 16:49 22:46 WBC RBC 2.67 L Hgb 7.3 L Hct 22.0 L MCV MCH 27 L RDW 29.3 H Plt Count 65 L Lymph % (Auto) [place] % (Auto) Lymph # (Auto) Seg Neutrophils % Seg Neuts % (Manual) Lymphocytes % (Manual) Nucleated RBC % Seg Neutrophils # Seg Neutrophils # Man Lymphocytes # (Manual) PT INR D-Dimer Heparin Anti-Xa Level ABG pH POC ABG pCO2 POC ABG pO2 ABG Hemoglobin ABG Chloride ABG Glucose Sodium Potassium Chloride Carbon Dioxide BUN Creatinine Glucose POC Glucose 171 H 157 H Lactic Acid Calcium Magnesium Iron TIBC Ferritin AST Alkaline Phosphatase Lactate Dehydrogenase C-Reactive Protein NT-Pro-B Natriuret Pep Total Protein Albumin PTH Intact Arterial Blood Glucose Arterial Blood Ionized Calcium Urine Creatinine Urine Total Protein Coronavirus (PCR) Crossmatch 09/17/20 09/17/20 09/17/20 03:15 11:42 11:46 WBC RBC Hgb Hct MCV MCH RDW Plt Count Lymph % (Auto) [place] % (Auto) Lymph # (Auto) Seg Neutrophils % Seg Neuts % (Manual) Lymphocytes % (Manual) Nucleated RBC % Seg Neutrophils # Seg Neutrophils # Man Lymphocytes # (Manual) PT INR D-Dimer Heparin Anti-Xa Level ABG pH 7.172 L POC ABG pCO2 POC ABG pO2 456.0 H ABG Hemoglobin 6.8 L ABG Chloride 119.0 H ABG Glucose 143 H Sodium 147 H Potassium Chloride 120.9 H Carbon Dioxide 15 L BUN 54 H Creatinine 1.7 H Glucose 125 H POC Glucose 116 H Lactic Acid Calcium 7.8 L Magnesium Iron TIBC Ferritin AST Alkaline Phosphatase Lactate Dehydrogenase C-Reactive Protein NT-Pro-B Natriuret Pep Total Protein Albumin PTH Intact Arterial Blood Glucose 143 H Arterial Blood Ionized Calcium Urine Creatinine Urine Total Protein Coronavirus (PCR) Crossmatch 09/17/20 09/17/20 09/17/20 13:49 13:49 13:49 WBC 21.0 H RBC 2.53 L Hgb 6.9 L Hct 21.1 L MCV MCH 27 L RDW 29.1 H Plt Count 73 L Lymph % (Auto) [place] % (Auto) Lymph # (Auto) Seg Neutrophils % Seg Neuts % (Manual) Lymphocytes % (Manual) Nucleated RBC % Seg Neutrophils # Seg Neutrophils # Man Lymphocytes # (Manual) PT INR D-Dimer Heparin Anti-Xa Level ABG pH POC ABG pCO2 POC ABG pO2 ABG Hemoglobin ABG Chloride ABG Glucose Sodium 148 H Potassium Chloride 117.9 H Carbon Dioxide 16 L BUN 59 H Creatinine 1.9 H Glucose 126 H POC Glucose Lactic Acid Calcium 7.6 L Magnesium Iron TIBC Ferritin AST Alkaline Phosphatase Lactate Dehydrogenase C-Reactive Protein NT-Pro-B Natriuret Pep Total Protein Albumin PTH Intact Arterial Blood Glucose Arterial Blood Ionized Calcium Urine Creatinine Urine Total Protein Coronavirus (PCR) Crossmatch See Detail 09/17/20 09/17/20 09/17/20 17:42 21:06 22:19 WBC RBC Hgb 7.4 L Hct 23.3 L MCV MCH RDW Plt Count Lymph % (Auto) [place] % (Auto) Lymph # (Auto) Seg Neutrophils % Seg Neuts % (Manual) Lymphocytes % (Manual) Nucleated RBC % Seg Neutrophils # Seg Neutrophils # Man Lymphocytes # (Manual) PT INR D-Dimer Heparin Anti-Xa Level ABG pH POC ABG pCO2 POC ABG pO2 ABG Hemoglobin ABG Chloride ABG Glucose Sodium Potassium Chloride Carbon Dioxide BUN Creatinine Glucose POC Glucose 127 H 138 H Lactic Acid Calcium Magnesium Iron TIBC Ferritin AST Alkaline Phosphatase Lactate Dehydrogenase C-Reactive Protein NT-Pro-B Natriuret Pep Total Protein Albumin PTH Intact Arterial Blood Glucose Arterial Blood Ionized Calcium Urine Creatinine Urine Total Protein Coronavirus (PCR) Crossmatch 09/17/20 09/18/20 09/18/20 Unknown 04:00 04:14 WBC RBC Hgb Hct MCV MCH RDW Plt Count Lymph % (Auto) [place] % (Auto) Lymph # (Auto) Seg Neutrophils % Seg Neuts % (Manual) Lymphocytes % (Manual) Nucleated RBC % Seg Neutrophils # Seg Neutrophils # Man Lymphocytes # (Manual) PT INR D-Dimer Heparin Anti-Xa Level ABG pH POC ABG pCO2 27.5 L POC ABG pO2 143.4 H ABG Hemoglobin 7.7 L ABG Chloride 120.0 H ABG Glucose 169 H Sodium 149 H Potassium Chloride 118.6 H Carbon Dioxide 18 L BUN 65 H Creatinine 1.9 H Glucose 164 H POC Glucose Lactic Acid Calcium 7.6 L Magnesium Iron TIBC Ferritin AST Alkaline Phosphatase Lactate Dehydrogenase C-Reactive Protein NT-Pro-B Natriuret Pep Total Protein Albumin PTH Intact Arterial Blood Glucose 169 H Arterial Blood Ionized Calcium 4.4 L Urine Creatinine Urine Total Protein Coronavirus (PCR) Positive A Crossmatch 09/18/20 05:02 WBC RBC Hgb Hct MCV MCH RDW Plt Count Lymph % (Auto) [place] % (Auto) Lymph # (Auto) Seg Neutrophils % Seg Neuts % (Manual) Lymphocytes % (Manual) Nucleated RBC % Seg Neutrophils # Seg Neutrophils # Man Lymphocytes # (Manual) PT INR D-Dimer Heparin Anti-Xa Level ABG pH POC ABG pCO2 POC ABG pO2 ABG Hemoglobin ABG Chloride ABG Glucose Sodium Potassium Chloride Carbon Dioxide BUN Creatinine Glucose POC Glucose 136 H Lactic Acid Calcium Magnesium Iron TIBC Ferritin AST Alkaline Phosphatase Lactate Dehydrogenase C-Reactive Protein NT-Pro-B Natriuret Pep Total Protein Albumin PTH Intact Arterial Blood Glucose Arterial Blood Ionized Calcium Urine Creatinine Urine Total Protein Coronavirus (PCR) Crossmatch
--- NOTE | 2020-09-18 12:13 | Progress Note ---
Assessment and Plan 1. Acute kidney injury: DIRK secondary to combination of Vasomotor nephropathy and severe sepsis. Renal US negative for hydro. Monitor renal function. Creatinine leveled off. Prior Creatinine was 1.2 in 2014. Likely CKD stage 4. Renal prognosis is guarded. Avoid nephrotoxic agents. Meds dosage based on GFR. 2. FEN: Mild hyperkalemia, improved, monitor. Hyperchloremic Metabolic acidosis, on Potassium and IV Sodium bicarbonate, monitor. Hypernatremia, monitor. Patient refusing meds. Monitor lytes. 3. Nephrotic syndrome: Likely diabetic nephropathy. DEMARCUS, ANCA, complements, GBM Ab and SPEP re-ordered. 4. Severe sepsis, POA, now with shock: On Levophed. 5. Severe COVID infection: Followed by ID. 6. Acute hypoxic resp failure: Intubated post-arrest. On vent. 7. Bilateral LE DVT, POA. 8. Microcytic anemia, POA: S/p PRBC. Monitor. Seen by GI. 9. Thrombocytopenia, POA. 10. Acute diarrhea: Likely associated to COVID-19 infection. C. difficile test negative. Subjective: Patient was seen and examined at the bedside. Patient coded briefly yesterday, now in ICU. Examination: General appearance: well-developed, appears stated age, no distress, intubated, on vent HEENT: JAYCE Neck: supple Respiratory: MV sounds heard Cardiology: regular, S1S2, no murmur Gastrointestinal: normoactive bowel sounds, no tenderness, not distended Integumentary: no obvious rash Neurologic: sedated, some extremity movement Ext: trace dependent edema, b/l BKA : [place] catheter Subjective Date of service: 09/18/20 Principal diagnosis: Iron Def Anemia Objective - Vital Signs Vital signs: Vital Signs - 12hr 09/18/20 09/18/20 09/18/20 03:52 04:00 04:42 Temperature 97.8 F Pulse Rate 64 83 Pulse Rate [ 66 Apical] Pulse Rate [ 64 From Monitor] Blood Pressure 163/70 O2 Sat by Pulse 100 Oximetry 09/18/20 09/18/20 07:55 08:00 Temperature Pulse Rate 71 92 H Pulse Rate [ Apical] Pulse Rate [ 83 From Monitor] Blood Pressure 99/45 O2 Sat by Pulse 100 Oximetry - Lab 09/17/20 22:19 09/18/20 04:00 Most recent lab results ABG pH 7.421 (7.320-7.450) 09/18/20 04:14 Calcium 7.6 mg/dL (8.4-10.2) L 09/18/20 04:00 Phosphorus 3.50 mg/dL (2.5-4.5) 09/06/20 06:43 Magnesium 2.20 mg/dL (1.7-2.3) 09/14/20 19:57 Urine Creatinine 43.2 mg/dL (0.1-20.0) H 09/06/20 06:52 Urine Sodium 84 mmol/L 09/06/20 06:52 Urine Total Protein 298 mg/dL (5-11.8) H 09/06/20 06:52 Medications & Allergies - Medications Allergies/Adverse Reactions: Allergies No Known Allergies Allergy (Unverified 02/14/14 19:23) Home Medications: Home Medications Medication Instructions Recorded Confirmed Last Taken Type Aspirin [[place] Aspirin] 81 mg PO DAILY 02/14/14 02/22/14 02/14/14 11:00 History Ferrous Sulfate [Feosol 325mg] 325 mg PO DAILY 02/14/14 02/22/14 02/14/14 11:00 History Sertraline [Zoloft] 50 mg PO DAILY 02/14/14 02/22/14 02/14/14 11:00 History amLODIPine 5 mg PO DAILY 02/14/14 02/22/14 02/14/14 11:00 History hydroCHLOROthiazide 25 mg PO DAILY 02/14/14 02/22/14 02/14/14 11:00 History [Hydrochlorothiazide] Aspirin EC [Ecotrin] 325 mg PO QDAY #60 tablet 09/17/20 Unknown Rx Insulin Glargine [Lantus VIAL] 14 units SUB-Q QHS 30 Days 09/17/20 Unknown Rx Pantoprazole [Protonix TAB] 40 mg PO BIDAC #60 tablet 09/17/20 Unknown Rx calcitrioL [Rocaltrol] 0.5 mcg PO QDAY #30 capsule 09/17/20 Unknown Rx metOLazone [Zaroxolyn] 10 mg PO QDAY #30 tablet 09/17/20 Unknown Rx Active Medications: Generic Name Dose Route Start Last Admin Trade Name Freq PRN Reason Stop Dose Admin Acetaminophen 650 mg 09/02/20 00:30 09/05/20 22:50 Tylenol PO 650 mg Q6H PRN Administration Pain, Mild (1-3) Aspirin 325 mg 09/09/20 12:00 09/18/20 10:27 Ecotrin PO Not Given QDAY JAE Calcitriol 0.5 mcg 09/05/20 13:00 09/18/20 10:26 Rocaltrol PO 0.5 mcg QDAY JAE Administration Dextrose 50 ml 09/11/20 19:09 D50w (25gm) Syringe IV Q30MIN PRN Hypoglycemia Protocol Ferrous Sulfate 325 mg 09/02/20 10:00 09/18/20 10:26 Feosol PO 325 mg DAILY JAE Administration Haloperidol Lactate 5 mg 09/11/20 19:10 Haldol IM Q6H PRN Agitation Hydralazine HCl 10 mg 09/10/20 22:23 09/14/20 05:46 Apresoline IV 10 mg Q6H PRN Administration Blood Pressure Hydrochlorothiazide 25 mg 09/11/20 12:00 09/18/20 10:26 Hctz PO Not Given QDAY JAE Hydromorphone HCl 0.25 mg 09/02/20 00:30 09/05/20 23:28 Dilaudid IV 0.25 mg Q4H PRN Administration Pain, Moderate (4-6) Norepinephrine 4 mg in 250 mls @ 7.5 mls/hr 09/17/20 11:00 09/18/20 11:50 Levophed Drip 4 Mg/Ns 250 Ml IV 4 mcg/min TITR JAE 15 mls/hr Titration Protocol 2 MCG/MIN Sodium Bicarbonate 75 meq/ 1,075 mls @ 75 mls/hr 09/17/20 15:00 09/18/20 08:06 Dextrose IV 75 mls/hr DIRECT JAE Administration Pantoprazole Sodium 80 mg/ 100 mls @ 10 mls/hr 09/17/20 18:00 09/18/20 03:24 Sodium Chloride IV 3 mg/hr DIRECT JAE 3.75 mls/hr Infusion 8 MG/HR Insulin Glargine 14 units 09/07/20 22:00 09/18/20 05:27 Lantus SUB-Q Not Given QHS JAE Insulin Human Lispro 0 unit 09/03/20 11:30 09/18/20 08:38 Humalog SUB-Q Not Given ACHS [facility] Protocol Metolazone 10 mg 09/07/20 10:00 09/18/20 10:27 Zaroxolyn PO Not Given QDAY JAE Multivitamins 5 ml 09/18/20 10:00 09/18/20 10:26 Centrum Liq PO 5 ml QDAY JAE Administration Potassium Bicarbonate 50 meq 09/10/20 22:00 09/18/20 11:41 Klor-Con PO Not Given BID JAE Sertraline HCl 50 mg 09/02/20 10:00 09/18/20 10:26 Zoloft PO 50 mg DAILY JAE Administration Sodium Chloride 10 ml 09/02/20 10:00 09/18/20 10:26 Sodium Chloride Flush Syringe 10 Ml IV 10 ml BID JAE Administration Sodium Chloride 10 ml 09/02/20 00:30 Sodium Chloride Flush Syringe 10 Ml IV PRN PRN LINE FLUSH
[2020-09-18 12:54] LABS: Hematocrit 20.9 % (30.3-42.9); Hemoglobin 6.8 gm/dl (10.1-14.3); Mean Corpuscular HGB Conc 32 % (30-34); Mean Corpuscular Volume 84 fl (79-97); Red Blood Count 2.51 M/mm3 (3.65-5.03)
[2020-09-18 13:04] LABS: INR 1.94 (0.87-1.13)
[2020-09-18 13:27] LABS: Red Cell Distribution Width 24.1 % (13.2-15.2)
[2020-09-18 13:28] LABS: Platelet Count 62 K/mm3 (140-440)
[2020-09-18] MEDS ORDERED: SODIUM CHLORIDE 0.9% 500 ML 500 ML IV ONE ×2 (14:14→14:28)
--- NOTE | 2020-09-18 15:25 | Gastroenterology Progress Note ---
Assessment and Plan # Iron deficiency anemia - Anemic x several years (per [facility] records); EGD 2014 showed severe esophagitis and mild gastritis; no colonoscopy on file. - Patient was being managed medically with PPI and monitoring H/H. GI had signed off with no signs of gross bleeding on 09/13/2020 - Patient had a cardiac arrest this AM. unclear etiology for the arrest. and intubated and in the ICU. Patient being evaluated with CT head and for possible PE. - Hgb at 6.8. INR elevated at 1.9. - on levophed. - Patient had OG tube with initial bloody secretions on insertion but currently with dark brown/greenish output. No active bloody output from the OG tube. Rectal tube with dark greenish bilious output. - No clear signs of active on-going GI bleeding. Does not appear that GI bleeding is the main cause for her hypotension/shock. # COVID-19 - b/l pneumonia # DVT - Acute versus chronic DVT of BLE; given hx of bilateral BKA, possible chronic. - Patient too unstable and anemic to anticoagulate at present. - hold anticoagulation. Rec - continue with PPI IV - correct coagulopathy. FFP ordered. - transfuse with hgb goal >7, INR goal <1.5 - No plans for EGD unless overt active GI bleeding, contributing to hemodynamic instability given COVID status. - hold anticoagulation - Patient Problems (1) COVID-19 Current Visit: Yes Status: Acute (2) Iron deficiency anemia due to chronic blood loss Current Visit: Yes Status: Acute Subjective Date of service: 09/18/20 Principal diagnosis: Iron Def Anemia Interval history: Patient remains intubated and not responsive. Has OG tube with initial bloody secretions on insertion and now with brownish/green output. Rectal bleeding with dark green bilious output. Remains on levophed. Objective - Constitutional Vitals: Temp Pulse Resp BP Pulse Ox 97.1 F L 87 13 123/59 100 09/18/20 12:00 09/18/20 12:00 09/17/20 20:30 09/18/20 11:50 09/18/20 11:50 General appearance: other (intubated) - Respiratory Respiratory effort: other (intubated) - Cardiovascular Rhythm: regular Heart Sounds: Present: S1 & S2 - Gastrointestinal General gastrointestinal: Present: soft, non-tender, non-distended - Psychiatric Psychiatric: other - Labs CBC & Chem 7: 09/18/20 12:30 09/18/20 04:00 Labs: Laboratory Results - last 24 hr 09/17/20 09/17/20 09/17/20 13:49 17:42 21:06 WBC RBC Hgb Hct MCV MCH MCHC RDW Plt Count PT INR ABG pH POC ABG pCO2 POC ABG pO2 POC ABG HCO3 POC ABG Base Excess ABG Hemoglobin ABG Sodium ABG Potassium ABG Chloride ABG Glucose FiO2 Sodium Potassium Chloride Carbon Dioxide Anion Gap BUN Creatinine Estimated GFR BUN/Creatinine Ratio Glucose POC Glucose 127 H 138 H Calcium Arterial Blood Glucose Arterial Blood Ionized Calcium Blood Type O POSITIVE Antibody Screen Negative Crossmatch See Detail 09/17/20 09/18/20 09/18/20 22:19 04:00 04:14 WBC RBC Hgb 7.4 L Hct 23.3 L MCV MCH MCHC RDW Plt Count PT INR ABG pH 7.421 POC ABG pCO2 27.5 L POC ABG pO2 143.4 H POC ABG HCO3 17.5 POC ABG Base Excess -6.3 ABG Hemoglobin 7.7 L ABG Sodium 142.3 ABG Potassium 3.7 ABG Chloride 120.0 H ABG Glucose 169 H FiO2 45 Sodium 149 H Potassium 3.9 Chloride 118.6 H Carbon Dioxide 18 L Anion Gap 16 BUN 65 H Creatinine 1.9 H Estimated GFR 32 BUN/Creatinine Ratio 34 Glucose 164 H POC Glucose Calcium 7.6 L Arterial Blood Glucose 169 H Arterial Blood Ionized Calcium 4.4 L Blood Type Antibody Screen Crossmatch 09/18/20 09/18/20 09/18/20 05:02 12:30 12:30 WBC 17.3 H RBC 2.51 L Hgb 6.8 L Hct 20.9 L MCV 84 MCH 27 L MCHC 32 RDW 24.1 H Plt Count 62 L PT 22.3 H INR 1.94 H ABG pH POC ABG pCO2 POC ABG pO2 POC ABG HCO3 POC ABG Base Excess ABG Hemoglobin ABG Sodium ABG Potassium ABG Chloride ABG Glucose FiO2 Sodium Potassium Chloride Carbon Dioxide Anion Gap BUN Creatinine Estimated GFR BUN/Creatinine Ratio Glucose POC Glucose 136 H Calcium Arterial Blood Glucose Arterial Blood Ionized Calcium Blood Type Antibody Screen Crossmatch 09/18/20 12:35 WBC RBC Hgb Hct MCV MCH MCHC RDW Plt Count PT INR ABG pH POC ABG pCO2 POC ABG pO2 POC ABG HCO3 POC ABG Base Excess ABG Hemoglobin ABG Sodium ABG Potassium ABG Chloride ABG Glucose FiO2 Sodium Potassium Chloride Carbon Dioxide Anion Gap BUN Creatinine Estimated GFR BUN/Creatinine Ratio Glucose POC Glucose 121 H Calcium Arterial Blood Glucose Arterial Blood Ionized Calcium Blood Type Antibody Screen Crossmatch
--- NOTE | 2020-09-18 15:48 | Progress Note ---
Assessment and Plan --S/P Cardiorespiratory arrest on 09/17/20 -- Acute delirium/acute metabolic encephalopathy Etiology unknown, likely initially was metabolic s/p as needed haldol, placed on restraint then worsened by --Sepsis Due to COVID-19 pneumonia Blood culture NTD ID recommendations appreciated --COVID-19 pneumonia, POA Coronavirus protocol: Coronavirus PCR is positive, contact precaution, isolation precautions, prone positioning while in bed, Not a candidate for remdesivir due to renal failure Continue dexamethasone s/p convalescent plasma --Acute on chronic anemia Due to chronic GI bleed and iron deficiency Status post transfusion of 3 units PRBC, PPI. Continue to monitor for GI bleed As per GI, does not look like patient is having GI bleed at this time Advance diet as tolerated --Possible GI bleed, chronic Advance diet, GI on board Recommended to manage medically --Acute kidney injury (DIRK) with acute tubular necrosis (ATN) Continue to monitor renal function Nephrology following closely --Hypernatremia Continue isotonic solution Nephrology on board --Bilateral lower extremity DVT, chronic Consulted vascular surgeon for consideration of IVC filter placement. As per vascular surgery, patient is not a good candidate for IVC filter placement INR 2.74. GI recommended to treat with aspirin only --Diabetes Current Visit: Yes Status: Acute Plan to address problem: Sliding-scale insulin therapy, Accu-Chek, hypoglycemia protocol, consistent carbohydrate diet. --h/o tobacco --DVT prophylaxis, Anticoagulation --full code status The high probability of a clinically significant, sudden or life threatening de terioration of the [[employer] WORKER, CVS, respiratory, renal, GI] system(s) required my full and direct attention, intervention and personal management. The aggregate critical care time was [34] minutes. This time is in addition to time spent performing reported procedures but includes the following: [x] Data Review and interpretation [x] Patient assessment and monitoring of vital signs [x] Documentation [x] Medication orders and management Brief History; 64 YO Female with HTN, DM, Anemia, PVD, Nicotine Dependence, positive coronavirus test recently at [facility] presented to the emergency room for further evaluation. Patient states that she has experienced subjective fever, generalized weakness, body aches, shortness of breath, nausea, multiple loose stools, lower extremity edema over the past 1 week with progressively worsening symptoms over the past 3 to 4 days prior to presentation. Here, patient found to be hypotensive with a systolic blood pressure ranging f rom 53-94. Patient was also hypothermic with a body temperature of 93.3 F. Patient met criteria for sepsis protocol and found to have bilateral pneumonia, metabolic acidosis, acute kidney injury. Patient admitted to telemetry due to increased risk of multisystem decompensation. Patient initiated on coronavirus protocol. Coronavirus PCR has been ordered, Patient remained hypotensive in spite of IV fluid resuscitation therapy. Patient subsequently upgraded to IMCU. daily course: 09/03. While in the ER, patient had an ultrasound Doppler performed that showed bilateral DVT involving the iliac veins. Patient was started on heparin drip. ID consulted for COVID-19 and nephrology consulted for DIRK. Patient seen and examined at bedside this morning. She has no complaints this morning. Her hemoglobin dropped to 6.4 this morning. Patient will get transfused 1 unit of PRBCs. Later this p.m., was notified by nurse that patient is having tarry dark stool and hematemesis. Heparin drip discontinued. Patient started on PPI drip and made n.p.o. GI is has been consulted. Patient will need to have an upper endoscopy. She has bilateral lower extremity DVT and will need vascular surgery evaluation to determine if she is a candidate for IVC filter placement. 09/04. Patient seen and examined at bedside this morning. Labs reviewed showed hemoglobin 5.3. Patient will receive 2 units PRBCs. FFP also ordered. GI evaluation pending. Continue PPIs. Vascular surgeon to see to determine if patient is a candidate for IVC filter placement for DVT. 09/05. Hb stable this morning. GI on board. On PPI drip. 09/06. Gastroenterology and vascular surgery recommendations reviewed. Patient not a good candidate for IVC filter placement due to location of the clot/thrombosis. Plan is for patient to have anticoagulation on while monitoring hemoglobin. Patient's INR is more than 2 at this time so we will hold anticoagulation for now and monitor hemoglobin. Plan to initiate antic oagulation when INR is less than 2. We will preferably use heparin products as she has a high chance of bleeding. Continue to monitor hemoglobin. Hb 7.3 this a.m. 09/07. Hemoglobin 8.2 this AM. No clear signs of GI bleed. Her INR is 2.74. No need for initiation of AC for now as she INR is already therapeutic. Plan is to monitor for bleeding and if she remains stable, she will be started on an ticoagulation for her bilateral DVT. Vascular surgery following-patient not a candidate for IVC catheter placement. GI recommendations appreciated 09/08: Patient is nonreactive to COVID-19 antibody, per ID order for convalescent plasma. Continue supportive care, follow clinically 09/09: Pending convalescent plasma transfusion, continue to follow inflammatory markers. Monitor H&H. Plan to start on aspirin tomorrow if INR and H&H stable 09/10: hb dropped to 6.8, transfuse one unit, discussed with GI - no plan for endoscopy now, cont to follow clinically 09/11: patient didn't get transfusion yesterday. became very agitated today, ordered as needed haldol, cont iv fluid. monitor clinically 09/12: placed on restrain o/n. cont supportive care, lost IV line - ordered for midline. pending PRBC transfusion 09/13: monitor h/h, patient more clam today, continue supportive care, follow B MP - Na and Cr has been improving 09/14: cont to monitor, follow BMP, follow h/h. oral intake improved per RN 09/15: If h/h stable and Cr cont to improves will d/c in a day or two 09/16; spoke with daughter and updated her with patient's clinical condition. family willing to accept the patient tomorrow. RN reported some Nose bleeding earlier today, but now resolved. repeat h/h stable 09/17: had respiratory/cardiac arrest this am. patient transferred to ICU. updated family. will get CT head, patient now intubated, start on bicarbonate drip 09/18; remains unresponsive, NG tube placed and noted bolld from the NG tube, discussed with GI - recommended PRBC/FFP transfusion. patient remains unresponsive w/o sedation and intubated Subjective Date of service: 09/18/20 Principal diagnosis: Iron Def Anemia Objective - Constitutional Vitals: Vital Signs - 12hr 09/18/20 09/18/20 09/18/20 03:52 04:00 04:42 Temperature 97.8 F Pulse Rate 64 83 Pulse Rate [ 66 Apical] Pulse Rate [ 64 From Monitor] Blood Pressure 163/70 O2 Sat by Pulse 100 Oximetry 09/18/20 09/18/20 09/18/20 07:55 08:00 11:50 Temperature 98.9 F Pulse Rate 71 92 H 84 Pulse Rate [ Apical] Pulse Rate [ 83 From Monitor] Blood Pressure 99/45 123/59 O2 Sat by Pulse 100 100 Oximetry 09/18/20 12:00 Temperature 97.1 F L Pulse Rate 70 Pulse Rate [ Apical] Pulse Rate [ 87 From Monitor] Blood Pressure O2 Sat by Pulse Oximetry - Labs CBC & Chem 7: 09/18/20 12:30 09/18/20 04:00 Labs: Abnormal lab results 09/17/20 09/17/20 09/17/20 Range/Units 13:49 17:42 21:06 WBC (4.5-11.0) K/mm3 RBC (3.65-5.03) M/mm3 Hgb (10.1-14.3) gm/dl Hct (30.3-42.9) % MCH (28-32) pg RDW (13.2-15.2) % Plt Count (140-440) K/mm3 PT (12.2-14.9) Sec. INR (0.87-1.13) POC ABG pCO2 (32.0-48.0) mmHg POC ABG pO2 (83-108) mmHg ABG Hemoglobin (12.0-17.5) ABG Chloride (98-107) mmol/L ABG Glucose (65-95) mg/dL Sodium (137-145) mmol/L Chloride (98-107) mmol/L Carbon Dioxide (22-30) mmol/L BUN (7-17) mg/dL Creatinine (0.6-1.2) mg/dL Glucose (65-100) mg/dL POC Glucose 127 H 138 H (70-105) mg/dL Calcium (8.4-10.2) mg/dL Arterial Blood Glucose (65-95) mg/dL Arterial Blood Ionized Calcium (4.6-5.3) mg/dL Crossmatch See Detail 09/17/20 09/18/20 09/18/20 Range/Units 22:19 04:00 04:14 WBC (4.5-11.0) K/mm3 RBC (3.65-5.03) M/mm3 Hgb 7.4 L (10.1-14.3) gm/dl Hct 23.3 L (30.3-42.9) % MCH (28-32) pg RDW (13.2-15.2) % Plt Count (140-440) K/mm3 PT (12.2-14.9) Sec. INR (0.87-1.13) POC ABG pCO2 27.5 L (32.0-48.0) mmHg POC ABG pO2 143.4 H (83-108) mmHg ABG Hemoglobin 7.7 L (12.0-17.5) ABG Chloride 120.0 H (98-107) mmol/L ABG Glucose 169 H (65-95) mg/dL Sodium 149 H (137-145) mmol/L Chloride 118.6 H (98-107) mmol/L Carbon Dioxide 18 L (22-30) mmol/L BUN 65 H (7-17) mg/dL Creatinine 1.9 H (0.6-1.2) mg/dL Glucose 164 H (65-100) mg/dL POC Glucose (70-105) mg/dL Calcium 7.6 L (8.4-10.2) mg/dL Arterial Blood Glucose 169 H (65-95) mg/dL Arterial Blood Ionized Calcium 4.4 L (4.6-5.3) mg/dL Crossmatch 09/18/20 09/18/20 09/18/20 Range/Units 05:02 12:30 12:30 WBC 17.3 H (4.5-11.0) K/mm3 RBC 2.51 L (3.65-5.03) M/mm3 Hgb 6.8 L (10.1-14.3) gm/dl Hct 20.9 L (30.3-42.9) % MCH 27 L (28-32) pg RDW 24.1 H (13.2-15.2) % Plt Count 62 L (140-440) K/mm3 PT 22.3 H (12.2-14.9) Sec. INR 1.94 H (0.87-1.13) POC ABG pCO2 (32.0-48.0) mmHg POC ABG pO2 (83-108) mmHg ABG Hemoglobin (12.0-17.5) ABG Chloride (98-107) mmol/L ABG Glucose (65-95) mg/dL Sodium (137-145) mmol/L Chloride (98-107) mmol/L Carbon Dioxide (22-30) mmol/L BUN (7-17) mg/dL Creatinine (0.6-1.2) mg/dL Glucose (65-100) mg/dL POC Glucose 136 H (70-105) mg/dL Calcium (8.4-10.2) mg/dL Arterial Blood Glucose (65-95) mg/dL Arterial Blood Ionized Calcium (4.6-5.3) mg/dL Crossmatch 09/18/20 Range/Units 12:35 WBC (4.5-11.0) K/mm3 RBC (3.65-5.03) M/mm3 Hgb (10.1-14.3) gm/dl Hct (30.3-42.9) % MCH (28-32) pg RDW (13.2-15.2) % Plt Count (140-440) K/mm3 PT (12.2-14.9) Sec. INR (0.87-1.13) POC ABG pCO2 (32.0-48.0) mmHg POC ABG pO2 (83-108) mmHg ABG Hemoglobin (12.0-17.5) ABG Chloride (98-107) mmol/L ABG Glucose (65-95) mg/dL Sodium (137-145) mmol/L Chloride (98-107) mmol/L Carbon Dioxide (22-30) mmol/L BUN (7-17) mg/dL Creatinine (0.6-1.2) mg/dL Glucose (65-100) mg/dL POC Glucose 121 H (70-105) mg/dL Calcium (8.4-10.2) mg/dL Arterial Blood Glucose (65-95) mg/dL Arterial Blood Ionized Calcium (4.6-5.3) mg/dL Crossmatch
[2020-09-19] MEDS: PANTOPRAZOLE 80 MG in SODIUM CHLORIDE 0.9% 100 ML IV SCH ×2 (05:21→14:44)
[2020-09-19 05:42] LABS: Albumin 2.1 g/dL (3.9-5); Calcium 7.6 mg/dL (8.4-10.2)
--- NOTE | 2020-09-19 09:22 | Gastroenterology Progress Note ---
Assessment and Plan # Iron deficiency anemia - Anemic x several years (per [facility] records); EGD 2014 showed severe esophagitis and mild gastritis; no colonoscopy on file. - Patient was being managed medically with PPI and monitoring H/H. GI had signed off with no signs of gross bleeding on 09/13/2020 - Patient had a cardiac arrest on 09/27/2020. unclear etiology for the arrest. and intubated and in the ICU. - Patient had OG tube with initial bloody secretions on insertion but currently with dark greenish output. No active bloody output from the OG tube. Rectal tube with dark greenish bilious output. - No clear signs of active on-going GI bleeding. Off levophed. - H/H stable. # COVID-19 - b/l pneumonia # DVT - Acute versus chronic DVT of BLE; given hx of bilateral BKA, possible chronic. - Patient too unstable and anemic to anticoagulate at present. - hold anticoagulation. Rec - continue with PPI IV - correct coagulopathy. - transfuse with hgb goal >7, INR goal <1.5 - No plans for EGD unless overt active GI bleeding, contributing to hemodynamic instability given COVID status. - hold anticoagulation - updated family, daughter on the phone. - Patient Problems (1) COVID-19 Current Visit: Yes Status: Acute (2) Iron deficiency anemia due to chronic blood loss Current Visit: Yes Status: Acute Subjective Date of service: 09/19/20 Principal diagnosis: Iron Def Anemia Interval history: Patient weaned off levophed. Having dark green output from OG tube and rectal tube. Received 1 unit of FFP. Objective - Constitutional Vitals: Temp Pulse Resp BP Pulse Ox 97.2 F L 71 20 122/48 100 09/19/20 02:56 09/19/20 08:15 09/18/20 18:50 09/19/20 08:15 09/19/20 08:15 General appearance: other (intubated) - Respiratory Respiratory effort: normal, other (intubated) - Cardiovascular Rhythm: regular Heart Sounds: Present: S1 & S2 - Gastrointestinal General gastrointestinal: Present: soft, non-tender, non-distended - Neurologic Neurological: other (nonpurposeful movements) - Labs CBC & Chem 7: 09/19/20 08:50 09/19/20 04:29 Labs: Laboratory Results - last 24 hr 09/17/20 09/18/20 09/18/20 13:49 12:30 12:30 WBC 17.3 H RBC 2.51 L Hgb 6.8 L Hct 20.9 L MCV 84 MCH 27 L MCHC 32 RDW 24.1 H Plt Count 62 L PT 22.3 H INR 1.94 H ABG pH POC ABG pCO2 POC ABG pO2 POC ABG HCO3 POC ABG Base Excess ABG Hemoglobin ABG Sodium ABG Potassium ABG Chloride ABG Glucose FiO2 Sodium Potassium Chloride Carbon Dioxide Anion Gap BUN Creatinine Estimated GFR BUN/Creatinine Ratio Glucose POC Glucose Calcium Total Bilirubin AST ALT Alkaline Phosphatase Total Protein Albumin Albumin/Globulin Ratio Arterial Blood Glucose Arterial Blood Ionized Calcium Blood Type O POSITIVE Antibody Screen Negative Crossmatch See Detail 09/18/20 09/18/20 09/18/20 12:35 17:22 21:12 WBC RBC Hgb Hct MCV MCH MCHC RDW Plt Count PT INR ABG pH POC ABG pCO2 POC ABG pO2 POC ABG HCO3 POC ABG Base Excess ABG Hemoglobin ABG Sodium ABG Potassium ABG Chloride ABG Glucose FiO2 Sodium Potassium Chloride Carbon Dioxide Anion Gap BUN Creatinine Estimated GFR BUN/Creatinine Ratio Glucose POC Glucose 121 H 104 113 H Calcium Total Bilirubin AST ALT Alkaline Phosphatase Total Protein Albumin Albumin/Globulin Ratio Arterial Blood Glucose Arterial Blood Ionized Calcium Blood Type Antibody Screen Crossmatch 09/19/20 09/19/20 04:13 04:29 WBC RBC Hgb Hct MCV MCH MCHC RDW Plt Count PT INR ABG pH 7.408 POC ABG pCO2 30.0 L POC ABG pO2 161.7 H POC ABG HCO3 18.5 POC ABG Base Excess -5.2 ABG Hemoglobin 10.9 L ABG Sodium 141.2 ABG Potassium 3.7 ABG Chloride 115.0 H ABG Glucose 91 FiO2 45.0 Sodium 147 H Potassium 4.3 Chloride 117.5 H Carbon Dioxide 17 L Anion Gap 17 BUN 67 H Creatinine 2.2 H Estimated GFR 27 BUN/Creatinine Ratio 30 Glucose 84 POC Glucose Calcium 7.6 L Total Bilirubin 0.70 AST 29 ALT 43 Alkaline Phosphatase 185 H Total Protein 4.3 L Albumin 2.1 L Albumin/Globulin Ratio 1.0 Arterial Blood Glucose 91 Arterial Blood Ionized Calcium 4.6 Blood Type Antibody Screen Crossmatch
[2020-09-19 09:41] LABS: Hemoglobin 6.8 gm/dl (10.1-14.3); Mean Corpuscular HGB Conc 32 % (30-34); Mean Corpuscular Volume 85 fl (79-97); Red Blood Count 2.48 M/mm3 (3.65-5.03)
[2020-09-19 09:51] LABS: INR 1.97 (0.87-1.13)
[2020-09-19 10:06] LABS: Platelet Count 55 K/mm3 (140-440); Red Cell Distribution Width 22.7 % (13.2-15.2)
[2020-09-19] MEDS: FERROUS SULFATE 325 MG TAB PO SCH (10:42)
[2020-09-19] MEDS: SERTRALINE 50 MG TAB PO SCH (10:42)
[2020-09-19] MEDS: CALCITRIOL 0.5 MCG CAP PO SCH (10:42)
[2020-09-19] MEDS: MULTIVITAMINS 5 ML ORAL LIQUID PO SCH (10:42)
[2020-09-19] MEDS: K-LYTE 25 MEQ TABLET EFF PO SCH (10:43)
--- NOTE | 2020-09-19 12:03 | Progress Note ---
Assessment and Plan 64 y/o female with cardiac arrest this am, now intubated, not on sedation with severe metabolic acidosis. 1. Can likely stop bicarb drip, now that pH has normalized. 2. Pressors now off, BP is stable 3. Continue current vent support. RT to attempt weaning trial 4. No sedatives whatsoever 5. Head CT was unremarkable, needs neuro consult, not available on the weekend and likely EEG if possible 6. Repeat COVID testing, patient remains positive. 7. Follow up any renal recs 8. Agree with volume 9. Overall prognosis is guarded. Pulseless total time is not definite. Continue supportive measures. CCT 31 minutes. Subjective Date of service: 09/19/20 Principal diagnosis: Iron Def Anemia Interval history: No acute events. Off pressors. Mental state is not better. Still not following commands. HgB is stable, still no overt signs of bleeding. Objective Vital Signs - 12hr 09/19/20 09/19/20 09/19/20 02:56 03:20 04:00 Temperature 97.2 F L Pulse Rate 82 74 Pulse Rate [ 74 From Monitor] Blood Pressure 109/61 O2 Sat by Pulse 100 Oximetry 09/19/20 09/19/20 08:15 11:53 Temperature Pulse Rate 71 90 Pulse Rate [ From Monitor] Blood Pressure 122/48 108/56 O2 Sat by Pulse 100 98 Oximetry Constitutional: comatose ENT: other (orally intubated, not on sedation) Neck: supple Ascultation: Bilateral: clear Percussion: Bilateral: not dull Cardiovascular: regular rate and rhythm Extremities: other (bilateral amputee) CBC and BMP: 09/19/20 08:50 09/19/20 04:29 ABG, PT/INR, D-dimer: ABG ABG pH 7.408 (7.320-7.450) 09/19/20 04:13 POC ABG pCO2 30.0 mmHg (32.0-48.0) L 09/19/20 04:13 POC ABG pO2 161.7 mmHg (83-108) H 09/19/20 04:13 POC ABG HCO3 18.5 09/19/20 04:13 PT/INR, D-dimer PT 22.5 Sec. (12.2-14.9) H 09/19/20 08:50 INR 1.97 (0.87-1.13) H 09/19/20 08:50 D-Dimer 1076.18 ng/mlDDU (0-234) H 09/01/20 21:55 Abnormal lab findings: Abnormal Labs 09/01/20 09/01/20 09/01/20 21:40 21:40 21:55 WBC RBC 3.42 L Hgb 7.9 L Hct 25.6 L MCV 75 L MCH 23 L RDW 35.7 H Plt Count 113 L Lymph % (Auto) [place] % (Auto) Lymph # (Auto) Seg Neutrophils % Seg Neuts % (Manual) 92.0 H Lymphocytes % (Manual) 5.0 L Nucleated RBC % Seg Neutrophils # Seg Neutrophils # Man Lymphocytes # (Manual) 0.3 L PT INR D-Dimer 1076.18 H Heparin Anti-Xa Level ABG pH POC ABG pCO2 POC ABG pO2 ABG Hemoglobin ABG Chloride ABG Glucose Sodium Potassium 5.1 H Chloride 117.5 H Carbon Dioxide 12 L BUN 51 H Creatinine 2.1 H Glucose POC Glucose Lactic Acid Calcium 7.8 L Magnesium Iron TIBC Ferritin AST 59 H Alkaline Phosphatase 242 H Lactate Dehydrogenase C-Reactive Protein NT-Pro-B Natriuret Pep Total Protein 5.3 L Albumin 2.5 L PTH Intact Arterial Blood Glucose Arterial Blood Ionized Calcium Urine Creatinine Urine Total Protein Coronavirus (PCR) Crossmatch 09/01/20 09/01/20 09/01/20 21:55 21:55 21:55 WBC RBC Hgb Hct MCV MCH RDW Plt Count Lymph % (Auto) [place] % (Auto) Lymph # (Auto) Seg Neutrophils % Seg Neuts % (Manual) Lymphocytes % (Manual) Nucleated RBC % Seg Neutrophils # Seg Neutrophils # Man Lymphocytes # (Manual) PT INR D-Dimer Heparin Anti-Xa Level ABG pH POC ABG pCO2 POC ABG pO2 ABG Hemoglobin ABG Chloride ABG Glucose Sodium Potassium Chloride Carbon Dioxide BUN Creatinine Glucose POC Glucose Lactic Acid Calcium Magnesium Iron TIBC Ferritin 313.5 H AST Alkaline Phosphatase Lactate Dehydrogenase 435 H C-Reactive Protein 2.30 H NT-Pro-B Natriuret Pep 09329 H Total Protein Albumin PTH Intact Arterial Blood Glucose Arterial Blood Ionized Calcium Urine Creatinine Urine Total Protein Coronavirus (PCR) Crossmatch 09/01/20 09/02/20 09/02/20 23:15 03:12 05:46 WBC RBC Hgb Hct MCV MCH RDW Plt Count Lymph % (Auto) [place] % (Auto) Lymph # (Auto) Seg Neutrophils % Seg Neuts % (Manual) Lymphocytes % (Manual) Nucleated RBC % Seg Neutrophils # Seg Neutrophils # Man Lymphocytes # (Manual) PT INR D-Dimer Heparin Anti-Xa Level ABG pH POC ABG pCO2 POC ABG pO2 ABG Hemoglobin ABG Chloride ABG Glucose Sodium Potassium Chloride Carbon Dioxide BUN Creatinine Glucose POC Glucose 65 L Lactic Acid 0.60 L Calcium Magnesium Iron TIBC Ferritin AST Alkaline Phosphatase Lactate Dehydrogenase C-Reactive Protein NT-Pro-B Natriuret Pep Total Protein Albumin PTH Intact Arterial Blood Glucose Arterial Blood Ionized Calcium Urine Creatinine Urine Total Protein Coronavirus (PCR) Crossmatch See Detail 09/02/20 09/02/20 09/02/20 06:50 07:35 08:10 WBC RBC Hgb Hct MCV MCH RDW Plt Count Lymph % (Auto) [place] % (Auto) Lymph # (Auto) Seg Neutrophils % Seg Neuts % (Manual) Lymphocytes % (Manual) Nucleated RBC % Seg Neutrophils # Seg Neutrophils # Man Lymphocytes # (Manual) PT INR D-Dimer Heparin Anti-Xa Level ABG pH POC ABG pCO2 POC ABG pO2 ABG Hemoglobin ABG Chloride ABG Glucose Sodium Potassium Chloride Carbon Dioxide BUN Creatinine Glucose POC Glucose 60 L 116 H Lactic Acid 0.60 L Calcium Magnesium Iron TIBC Ferritin AST Alkaline Phosphatase Lactate Dehydrogenase C-Reactive Protein NT-Pro-B Natriuret Pep Total Protein Albumin PTH Intact Arterial Blood Glucose Arterial Blood Ionized Calcium Urine Creatinine Urine Total Protein Coronavirus (PCR) Crossmatch 09/02/20 09/02/20 09/02/20 08:10 08:10 12:07 WBC RBC 3.34 L Hgb 7.6 L Hct 24.7 L MCV 74 L MCH 23 L RDW 35.8 H Plt Count 110 L Lymph % (Auto) [place] % (Auto) Lymph # (Auto) Seg Neutrophils % Seg Neuts % (Manual) 97.0 H Lymphocytes % (Manual) 2.0 L Nucleated RBC % Seg Neutrophils # Seg Neutrophils # Man Lymphocytes # (Manual) 0.1 L PT INR D-Dimer Heparin Anti-Xa Level ABG pH POC ABG pCO2 POC ABG pO2 ABG Hemoglobin ABG Chloride ABG Glucose Sodium Potassium 5.2 H Chloride 120.1 H Carbon Dioxide 11 L BUN 51 H Creatinine 2.0 H Glucose POC Glucose 121 H Lactic Acid Calcium 7.4 L Magnesium Iron TIBC Ferritin AST Alkaline Phosphatase Lactate Dehydrogenase C-Reactive Protein NT-Pro-B Natriuret Pep Total Protein Albumin PTH Intact Arterial Blood Glucose Arterial Blood Ionized Calcium Urine Creatinine Urine Total Protein Coronavirus (PCR) Crossmatch 09/02/20 09/02/20 09/03/20 13:52 19:50 00:32 WBC RBC Hgb 7.9 L Hct 27.4 L MCV MCH RDW Plt Count 133 L Lymph % (Auto) [place] % (Auto) Lymph # (Auto) Seg Neutrophils % Seg Neuts % (Manual) Lymphocytes % (Manual) Nucleated RBC % Seg Neutrophils # Seg Neutrophils # Man Lymphocytes # (Manual) PT INR D-Dimer Heparin Anti-Xa Level 0.78 H ABG pH POC ABG pCO2 POC ABG pO2 ABG Hemoglobin ABG Chloride ABG Glucose Sodium Potassium Chloride Carbon Dioxide BUN Creatinine Glucose POC Glucose 206 H Lactic Acid Calcium Magnesium Iron TIBC Ferritin AST Alkaline Phosphatase Lactate Dehydrogenase C-Reactive Protein NT-Pro-B Natriuret Pep Total Protein Albumin PTH Intact Arterial Blood Glucose Arterial Blood Ionized Calcium Urine Creatinine Urine Total Protein Coronavirus (PCR) Crossmatch 09/03/20 09/03/20 09/03/20 05:17 05:17 05:17 WBC RBC 2.87 L Hgb 6.4 L Hct 21.5 L MCV 75 L MCH 22 L RDW 35.3 H Plt Count Lymph % (Auto) [place] % (Auto) Lymph # (Auto) Seg Neutrophils % Seg Neuts % (Manual) 76.0 H Lymphocytes % (Manual) Nucleated RBC % Seg Neutrophils # Seg Neutrophils # Man 7.8 H Lymphocytes # (Manual) PT 17.0 H INR 1.35 H D-Dimer Heparin Anti-Xa Level 0.94 H ABG pH POC ABG pCO2 POC ABG pO2 ABG Hemoglobin ABG Chloride ABG Glucose Sodium 147 H Potassium 5.2 H Chloride 123.4 H Carbon Dioxide 11 L BUN 59 H Creatinine 2.0 H Glucose 204 H POC Glucose Lactic Acid Calcium 7.4 L Magnesium Iron TIBC Ferritin AST Alkaline Phosphatase Lactate Dehydrogenase C-Reactive Protein NT-Pro-B Natriuret Pep Total Protein Albumin PTH Intact Arterial Blood Glucose Arterial Blood Ionized Calcium Urine Creatinine Urine Total Protein Coronavirus (PCR) Crossmatch 09/03/20 09/03/20 09/03/20 06:05 08:48 11:43 WBC RBC Hgb Hct MCV MCH RDW Plt Count Lymph % (Auto) [place] % (Auto) Lymph # (Auto) Seg Neutrophils % Seg Neuts % (Manual) Lymphocytes % (Manual) Nucleated RBC % Seg Neutrophils # Seg Neutrophils # Man Lymphocytes # (Manual) PT INR D-Dimer Heparin Anti-Xa Level ABG pH POC ABG pCO2 POC ABG pO2 ABG Hemoglobin ABG Chloride ABG Glucose Sodium Potassium Chloride Carbon Dioxide BUN Creatinine Glucose POC Glucose 190 H 223 H 242 H Lactic Acid Calcium Magnesium Iron TIBC Ferritin AST Alkaline Phosphatase Lactate Dehydrogenase C-Reactive Protein NT-Pro-B Natriuret Pep Total Protein Albumin PTH Intact Arterial Blood Glucose Arterial Blood Ionized Calcium Urine Creatinine Urine Total Protein Coronavirus (PCR) Crossmatch 09/03/20 09/03/20 09/04/20 16:21 23:37 05:18 WBC RBC 2.26 L Hgb 5.3 L* Hct 17.1 L* MCV 76 L MCH 24 L RDW 33.7 H Plt Count Lymph % (Auto) 8.0 L [place] % (Auto) 7.5 H Lymph # (Auto) 0.7 L Seg Neutrophils % 84.3 H Seg Neuts % (Manual) Lymphocytes % (Manual) Nucleated RBC % Seg Neutrophils # Seg Neutrophils # Man Lymphocytes # (Manual) PT INR D-Dimer Heparin Anti-Xa Level ABG pH POC ABG pCO2 POC ABG pO2 ABG Hemoglobin ABG Chloride ABG Glucose Sodium Potassium Chloride Carbon Dioxide BUN Creatinine Glucose POC Glucose 280 H 228 H Lactic Acid Calcium Magnesium Iron TIBC Ferritin AST Alkaline Phosphatase Lactate Dehydrogenase C-Reactive Protein NT-Pro-B Natriuret Pep Total Protein Albumin PTH Intact Arterial Blood Glucose Arterial Blood Ionized Calcium Urine Creatinine Urine Total Protein Coronavirus (PCR) Crossmatch 09/04/20 09/04/20 09/04/20 05:18 05:18 05:18 WBC RBC Hgb Hct MCV MCH RDW Plt Count Lymph % (Auto) [place] % (Auto) Lymph # (Auto) Seg Neutrophils % Seg Neuts % (Manual) Lymphocytes % (Manual) Nucleated RBC % Seg Neutrophils # Seg Neutrophils # Man Lymphocytes # (Manual) PT 19.6 H INR 1.62 H D-Dimer Heparin Anti-Xa Level ABG pH POC ABG pCO2 POC ABG pO2 ABG Hemoglobin ABG Chloride ABG Glucose Sodium 149 H Potassium 5.2 H Chloride 125.6 H Carbon Dioxide 14 L BUN 86 H Creatinine 2.3 H Glucose 232 H POC Glucose Lactic Acid Calcium 7.5 L Magnesium Iron TIBC Ferritin AST Alkaline Phosphatase 144 H Lactate Dehydrogenase C-Reactive Protein NT-Pro-B Natriuret Pep Total Protein 4.1 L D Albumin 1.9 L PTH Intact 820.4 H Arterial Blood Glucose Arterial Blood Ionized Calcium Urine Creatinine Urine Total Protein Coronavirus (PCR) Crossmatch 09/04/20 09/04/20 09/04/20 06:33 09:03 12:08 WBC RBC Hgb Hct MCV MCH RDW Plt Count Lymph % (Auto) [place] % (Auto) Lymph # (Auto) Seg Neutrophils % Seg Neuts % (Manual) Lymphocytes % (Manual) Nucleated RBC % Seg Neutrophils # Seg Neutrophils # Man Lymphocytes # (Manual) PT INR D-Dimer Heparin Anti-Xa Level ABG pH POC ABG pCO2 POC ABG pO2 ABG Hemoglobin ABG Chloride ABG Glucose Sodium Potassium Chloride Carbon Dioxide BUN Creatinine Glucose POC Glucose 224 H 264 H 247 H Lactic Acid Calcium Magnesium Iron TIBC Ferritin AST Alkaline Phosphatase Lactate Dehydrogenase C-Reactive Protein NT-Pro-B Natriuret Pep Total Protein Albumin PTH Intact Arterial Blood Glucose Arterial Blood Ionized Calcium Urine Creatinine Urine Total Protein Coronavirus (PCR) Crossmatch 09/04/20 09/04/20 09/04/20 15:01 18:58 22:28 WBC RBC Hgb 8.7 L D Hct 27.4 L D MCV MCH RDW Plt Count Lymph % (Auto) [place] % (Auto) Lymph # (Auto) Seg Neutrophils % Seg Neuts % (Manual) Lymphocytes % (Manual) Nucleated RBC % Seg Neutrophils # Seg Neutrophils # Man Lymphocytes # (Manual) PT INR D-Dimer Heparin Anti-Xa Level ABG pH POC ABG pCO2 POC ABG pO2 ABG Hemoglobin ABG Chloride ABG Glucose Sodium Potassium Chloride Carbon Dioxide BUN Creatinine Glucose POC Glucose 202 H 181 H Lactic Acid Calcium Magnesium Iron TIBC Ferritin AST Alkaline Phosphatase Lactate Dehydrogenase C-Reactive Protein NT-Pro-B Natriuret Pep Total Protein Albumin PTH Intact Arterial Blood Glucose Arterial Blood Ionized Calcium Urine Creatinine Urine Total Protein Coronavirus (PCR) Crossmatch 09/05/20 09/05/20 09/05/20 00:55 07:56 08:28 WBC RBC Hgb 7.8 L Hct 23.8 L MCV MCH RDW Plt Count Lymph % (Auto) [place] % (Auto) Lymph # (Auto) Seg Neutrophils % Seg Neuts % (Manual) Lymphocytes % (Manual) Nucleated RBC % Seg Neutrophils # Seg Neutrophils # Man Lymphocytes # (Manual) PT 23.2 H INR 2.01 H D-Dimer Heparin Anti-Xa Level ABG pH POC ABG pCO2 POC ABG pO2 ABG Hemoglobin ABG Chloride ABG Glucose Sodium Potassium Chloride Carbon Dioxide BUN Creatinine Glucose POC Glucose 176 H Lactic Acid Calcium Magnesium Iron TIBC Ferritin AST Alkaline Phosphatase Lactate Dehydrogenase C-Reactive Protein NT-Pro-B Natriuret Pep Total Protein Albumin PTH Intact Arterial Blood Glucose Arterial Blood Ionized Calcium Urine Creatinine Urine Total Protein Coronavirus (PCR) Crossmatch 09/05/20 09/05/20 09/05/20 08:28 08:28 12:14 WBC 11.8 H RBC 2.93 L Hgb 7.7 L Hct 23.2 L MCV MCH 26 L RDW 28.4 H Plt Count Lymph % (Auto) 9.2 L [place] % (Auto) Lymph # (Auto) 1.1 L Seg Neutrophils % 85.4 H Seg Neuts % (Manual) Lymphocytes % (Manual) Nucleated RBC % Seg Neutrophils # 10.1 H Seg Neutrophils # Man Lymphocytes # (Manual) PT INR D-Dimer Heparin Anti-Xa Level ABG pH POC ABG pCO2 POC ABG pO2 ABG Hemoglobin ABG Chloride ABG Glucose Sodium 152 H Potassium Chloride 125.7 H Carbon Dioxide 13 L BUN 86 H Creatinine 2.3 H Glucose 152 H POC Glucose 131 H Lactic Acid Calcium 7.9 L Magnesium Iron TIBC Ferritin AST Alkaline Phosphatase 155 H Lactate Dehydrogenase C-Reactive Protein NT-Pro-B Natriuret Pep Total Protein 4.6 L Albumin 2.5 L PTH Intact Arterial Blood Glucose Arterial Blood Ionized Calcium Urine Creatinine Urine Total Protein Coronavirus (PCR) Crossmatch 09/05/20 09/05/20 09/06/20 18:58 21:22 00:03 WBC RBC Hgb 8.0 L 7.4 L Hct 25.7 L 22.8 L MCV MCH RDW Plt Count Lymph % (Auto) [place] % (Auto) Lymph # (Auto) Seg Neutrophils % Seg Neuts % (Manual) Lymphocytes % (Manual) Nucleated RBC % Seg Neutrophils # Seg Neutrophils # Man Lymphocytes # (Manual) PT INR D-Dimer Heparin Anti-Xa Level ABG pH POC ABG pCO2 POC ABG pO2 ABG Hemoglobin ABG Chloride ABG Glucose Sodium Potassium Chloride Carbon Dioxide BUN Creatinine Glucose POC Glucose 171 H Lactic Acid Calcium Magnesium Iron TIBC Ferritin AST Alkaline Phosphatase Lactate Dehydrogenase C-Reactive Protein NT-Pro-B Natriuret Pep Total Protein Albumin PTH Intact Arterial Blood Glucose Arterial Blood Ionized Calcium Urine Creatinine Urine Total Protein Coronavirus (PCR) Crossmatch 09/06/20 09/06/20 09/06/20 06:43 06:43 06:43 WBC RBC 2.76 L Hgb 7.3 L Hct 21.9 L MCV MCH 26 L RDW 29.0 H Plt Count Lymph % (Auto) [place] % (Auto) Lymph # (Auto) Seg Neutrophils % Seg Neuts % (Manual) 94.0 H Lymphocytes % (Manual) 2.0 L Nucleated RBC % 3.0 H Seg Neutrophils # Seg Neutrophils # Man 8.6 H Lymphocytes # (Manual) 0.2 L PT 26.4 H INR 2.37 H D-Dimer Heparin Anti-Xa Level ABG pH POC ABG pCO2 POC ABG pO2 ABG Hemoglobin ABG Chloride ABG Glucose Sodium 151 H Potassium Chloride 125.5 H Carbon Dioxide 12 L BUN 83 H Creatinine 2.3 H Glucose 130 H POC Glucose Lactic Acid Calcium 8.2 L Magnesium Iron TIBC Ferritin AST Alkaline Phosphatase 157 H Lactate Dehydrogenase C-Reactive Protein NT-Pro-B Natriuret Pep Total Protein 4.5 L Albumin 2.4 L PTH Intact Arterial Blood Glucose Arterial Blood Ionized Calcium Urine Creatinine Urine Total Protein Coronavirus (PCR) Crossmatch 09/06/20 09/06/20 09/06/20 06:52 08:31 11:31 WBC RBC Hgb Hct MCV MCH RDW Plt Count Lymph % (Auto) [place] % (Auto) Lymph # (Auto) Seg Neutrophils % Seg Neuts % (Manual) Lymphocytes % (Manual) Nucleated RBC % Seg Neutrophils # Seg Neutrophils # Man Lymphocytes # (Manual) PT INR D-Dimer Heparin Anti-Xa Level ABG pH POC ABG pCO2 POC ABG pO2 ABG Hemoglobin ABG Chloride ABG Glucose Sodium Potassium Chloride Carbon Dioxide BUN Creatinine Glucose POC Glucose 148 H 171 H Lactic Acid Calcium Magnesium Iron TIBC Ferritin AST Alkaline Phosphatase Lactate Dehydrogenase C-Reactive Protein NT-Pro-B Natriuret Pep Total Protein Albumin PTH Intact Arterial Blood Glucose Arterial Blood Ionized Calcium Urine Creatinine 43.2 H Urine Total Protein 298 H Coronavirus (PCR) Crossmatch 09/06/20 09/06/20 09/06/20 14:59 18:03 21:36 WBC RBC Hgb 7.7 L Hct 24.5 L MCV MCH RDW Plt Count Lymph % (Auto) [place] % (Auto) Lymph # (Auto) Seg Neutrophils % Seg Neuts % (Manual) Lymphocytes % (Manual) Nucleated RBC % Seg Neutrophils # Seg Neutrophils # Man Lymphocytes # (Manual) PT INR D-Dimer Heparin Anti-Xa Level ABG pH POC ABG pCO2 POC ABG pO2 ABG Hemoglobin ABG Chloride ABG Glucose Sodium Potassium Chloride Carbon Dioxide BUN Creatinine Glucose POC Glucose 135 H 131 H Lactic Acid Calcium Magnesium Iron TIBC Ferritin AST Alkaline Phosphatase Lactate Dehydrogenase C-Reactive Protein NT-Pro-B Natriuret Pep Total Protein Albumin PTH Intact Arterial Blood Glucose Arterial Blood Ionized Calcium Urine Creatinine Urine Total Protein Coronavirus (PCR) Crossmatch 09/07/20 09/07/20 09/07/20 01:27 09:13 09:13 WBC RBC 3.13 L Hgb 7.5 L 8.2 L Hct 23.4 L 25.5 L MCV MCH 26 L RDW 28.6 H Plt Count Lymph % (Auto) [place] % (Auto) Lymph # (Auto) Seg Neutrophils % Seg Neuts % (Manual) 94.0 H Lymphocytes % (Manual) 3.0 L Nucleated RBC % 2.0 H Seg Neutrophils # Seg Neutrophils # Man 9.5 H Lymphocytes # (Manual) 0.3 L PT 29.6 H INR 2.74 H D-Dimer Heparin Anti-Xa Level ABG pH POC ABG pCO2 POC ABG pO2 ABG Hemoglobin ABG Chloride ABG Glucose Sodium Potassium Chloride Carbon Dioxide BUN Creatinine Glucose POC Glucose Lactic Acid Calcium Magnesium Iron TIBC Ferritin AST Alkaline Phosphatase Lactate Dehydrogenase C-Reactive Protein NT-Pro-B Natriuret Pep Total Protein Albumin PTH Intact Arterial Blood Glucose Arterial Blood Ionized Calcium Urine Creatinine Urine Total Protein Coronavirus (PCR) Crossmatch 09/07/20 09/07/20 09/07/20 09:13 17:15 18:38 WBC RBC Hgb Hct MCV MCH RDW Plt Count Lymph % (Auto) [place] % (Auto) Lymph # (Auto) Seg Neutrophils % Seg Neuts % (Manual) Lymphocytes % (Manual) Nucleated RBC % Seg Neutrophils # Seg Neutrophils # Man Lymphocytes # (Manual) PT INR D-Dimer Heparin Anti-Xa Level ABG pH POC ABG pCO2 POC ABG pO2 ABG Hemoglobin ABG Chloride ABG Glucose Sodium 152 H Potassium Chloride 129.1 H Carbon Dioxide 13 L BUN 78 H Creatinine 2.4 H Glucose 111 H POC Glucose 59 L 107 H Lactic Acid Calcium Magnesium Iron 28 L TIBC 188 L Ferritin AST Alkaline Phosphatase 191 H Lactate Dehydrogenase C-Reactive Protein NT-Pro-B Natriuret Pep Total Protein 5.0 L Albumin 2.4 L PTH Intact Arterial Blood Glucose Arterial Blood Ionized Calcium Urine Creatinine Urine Total Protein Coronavirus (PCR) Crossmatch 09/07/20 09/08/20 09/08/20 Unknown 05:18 05:18 WBC 12.0 H RBC 2.93 L Hgb 7.6 L Hct 23.7 L MCV MCH 26 L RDW 29.3 H Plt Count 130 L Lymph % (Auto) [place] % (Auto) Lymph # (Auto) Seg Neutrophils % 78.8 H Seg Neuts % (Manual) Lymphocytes % (Manual) Nucleated RBC % Seg Neutrophils # 9.5 H Seg Neutrophils # Man Lymphocytes # (Manual) PT 34.0 H INR 3.27 H D-Dimer Heparin Anti-Xa Level ABG pH POC ABG pCO2 POC ABG pO2 ABG Hemoglobin ABG Chloride ABG Glucose Sodium Potassium Chloride Carbon Dioxide BUN Creatinine Glucose POC Glucose Lactic Acid Calcium Magnesium Iron TIBC Ferritin AST Alkaline Phosphatase Lactate Dehydrogenase C-Reactive Protein NT-Pro-B Natriuret Pep Total Protein Albumin PTH Intact Arterial Blood Glucose Arterial Blood Ionized Calcium Urine Creatinine Urine Total Protein Coronavirus (PCR) Positive A Crossmatch 09/08/20 09/08/20 09/08/20 05:18 12:21 22:01 WBC RBC Hgb Hct MCV MCH RDW Plt Count Lymph % (Auto) [place] % (Auto) Lymph # (Auto) Seg Neutrophils % Seg Neuts % (Manual) Lymphocytes % (Manual) Nucleated RBC % Seg Neutrophils # Seg Neutrophils # Man Lymphocytes # (Manual) PT INR D-Dimer Heparin Anti-Xa Level ABG pH POC ABG pCO2 POC ABG pO2 ABG Hemoglobin ABG Chloride ABG Glucose Sodium 148 H Potassium Chloride 127.0 H Carbon Dioxide 12 L BUN 77 H Creatinine 2.3 H Glucose 60 L POC Glucose 110 H 129 H Lactic Acid Calcium Magnesium Iron TIBC Ferritin AST Alkaline Phosphatase 185 H Lactate Dehydrogenase C-Reactive Protein NT-Pro-B Natriuret Pep Total Protein 5.0 L Albumin 2.4 L PTH Intact Arterial Blood Glucose Arterial Blood Ionized Calcium Urine Creatinine Urine Total Protein Coronavirus (PCR) Crossmatch 09/09/20 09/09/20 09/09/20 09:06 09:06 09:06 WBC 11.5 H RBC 2.92 L Hgb 7.5 L Hct 23.9 L MCV MCH 26 L RDW 29.4 H Plt Count 119 L Lymph % (Auto) [place] % (Auto) Lymph # (Auto) Seg Neutrophils % Seg Neuts % (Manual) 98.0 H Lymphocytes % (Manual) 0 L Nucleated RBC % Seg Neutrophils # Seg Neutrophils # Man 11.3 H Lymphocytes # (Manual) 0.0 L PT 19.3 H INR 1.59 H D-Dimer Heparin Anti-Xa Level ABG pH POC ABG pCO2 POC ABG pO2 ABG Hemoglobin ABG Chloride ABG Glucose Sodium 153 H Potassium Chloride 128.7 H Carbon Dioxide 13 L BUN 70 H Creatinine 2.3 H Glucose 102 H POC Glucose Lactic Acid Calcium Magnesium Iron TIBC Ferritin AST Alkaline Phosphatase 186 H Lactate Dehydrogenase C-Reactive Protein NT-Pro-B Natriuret Pep Total Protein 4.4 L Albumin 2.4 L PTH Intact Arterial Blood Glucose Arterial Blood Ionized Calcium Urine Creatinine Urine Total Protein Coronavirus (PCR) Crossmatch 09/09/20 09/10/20 09/10/20 23:08 05:12 05:12 WBC 12.1 H RBC 2.66 L Hgb 6.8 L Hct 22.0 L MCV MCH 26 L RDW 29.9 H Plt Count 110 L Lymph % (Auto) [place] % (Auto) Lymph # (Auto) Seg Neutrophils % Seg Neuts % (Manual) 97.0 H Lymphocytes % (Manual) 0 L Nucleated RBC % Seg Neutrophils # Seg Neutrophils # Man 11.7 H Lymphocytes # (Manual) 0.0 L PT INR D-Dimer Heparin Anti-Xa Level ABG pH POC ABG pCO2 POC ABG pO2 ABG Hemoglobin ABG Chloride ABG Glucose Sodium 153 H Potassium Chloride 126.8 H Carbon Dioxide 14 L BUN 69 H Creatinine 2.2 H Glucose 129 H POC Glucose 142 H Lactic Acid Calcium 8.1 L Magnesium Iron TIBC Ferritin AST Alkaline Phosphatase 180 H Lactate Dehydrogenase C-Reactive Protein NT-Pro-B Natriuret Pep Total Protein 4.2 L Albumin 2.3 L PTH Intact Arterial Blood Glucose Arterial Blood Ionized Calcium Urine Creatinine Urine Total Protein Coronavirus (PCR) Crossmatch 09/10/20 09/10/20 09/10/20 05:12 07:59 12:23 WBC RBC Hgb Hct MCV MCH RDW Plt Count Lymph % (Auto) [place] % (Auto) Lymph # (Auto) Seg Neutrophils % Seg Neuts % (Manual) Lymphocytes % (Manual) Nucleated RBC % Seg Neutrophils # Seg Neutrophils # Man Lymphocytes # (Manual) PT 16.7 H INR 1.32 H D-Dimer Heparin Anti-Xa Level ABG pH POC ABG pCO2 POC ABG pO2 ABG Hemoglobin ABG Chloride ABG Glucose Sodium Potassium Chloride Carbon Dioxide BUN Creatinine Glucose POC Glucose 162 H 148 H Lactic Acid Calcium Magnesium Iron TIBC Ferritin AST Alkaline Phosphatase Lactate Dehydrogenase C-Reactive Protein NT-Pro-B Natriuret Pep Total Protein Albumin PTH Intact Arterial Blood Glucose Arterial Blood Ionized Calcium Urine Creatinine Urine Total Protein Coronavirus (PCR) Crossmatch 09/10/20 09/10/20 09/10/20 13:48 17:04 21:55 WBC RBC Hgb Hct MCV MCH RDW Plt Count Lymph % (Auto) [place] % (Auto) Lymph # (Auto) Seg Neutrophils % Seg Neuts % (Manual) Lymphocytes % (Manual) Nucleated RBC % Seg Neutrophils # Seg Neutrophils # Man Lymphocytes # (Manual) PT INR D-Dimer Heparin Anti-Xa Level ABG pH POC ABG pCO2 POC ABG pO2 ABG Hemoglobin ABG Chloride ABG Glucose Sodium Potassium Chloride Carbon Dioxide BUN Creatinine Glucose POC Glucose 162 H 155 H Lactic Acid Calcium Magnesium Iron TIBC Ferritin AST Alkaline Phosphatase Lactate Dehydrogenase C-Reactive Protein NT-Pro-B Natriuret Pep Total Protein Albumin PTH Intact Arterial Blood Glucose Arterial Blood Ionized Calcium Urine Creatinine Urine Total Protein Coronavirus (PCR) Crossmatch See Detail 09/11/20 09/11/20 09/11/20 08:25 08:25 08:25 WBC 13.2 H RBC 2.68 L Hgb 7.1 L Hct 21.7 L MCV MCH 26 L RDW 31.2 H Plt Count 92 L Lymph % (Auto) [place] % (Auto) Lymph # (Auto) Seg Neutrophils % Seg Neuts % (Manual) 97.0 H Lymphocytes % (Manual) 0 L Nucleated RBC % 1.0 H Seg Neutrophils # Seg Neutrophils # Man 12.8 H Lymphocytes # (Manual) 0.0 L PT 18.0 H INR 1.46 H D-Dimer Heparin Anti-Xa Level ABG pH POC ABG pCO2 POC ABG pO2 ABG Hemoglobin ABG Chloride ABG Glucose Sodium 151 H Potassium Chloride 126.7 H Carbon Dioxide 14 L BUN 72 H Creatinine 2.1 H Glucose POC Glucose Lactic Acid Calcium 8.1 L Magnesium Iron TIBC Ferritin AST Alkaline Phosphatase Lactate Dehydrogenase C-Reactive Protein NT-Pro-B Natriuret Pep Total Protein Albumin PTH Intact Arterial Blood Glucose Arterial Blood Ionized Calcium Urine Creatinine Urine Total Protein Coronavirus (PCR) Crossmatch 09/11/20 09/11/20 09/11/20 13:40 17:50 19:24 WBC RBC Hgb Hct MCV MCH RDW Plt Count Lymph % (Auto) [place] % (Auto) Lymph # (Auto) Seg Neutrophils % Seg Neuts % (Manual) Lymphocytes % (Manual) Nucleated RBC % Seg Neutrophils # Seg Neutrophils # Man Lymphocytes # (Manual) PT INR D-Dimer Heparin Anti-Xa Level ABG pH POC ABG pCO2 POC ABG pO2 ABG Hemoglobin ABG Chloride ABG Glucose Sodium Potassium Chloride Carbon Dioxide BUN Creatinine Glucose POC Glucose 67 L 52 L 193 H Lactic Acid Calcium Magnesium Iron TIBC Ferritin AST Alkaline Phosphatase Lactate Dehydrogenase C-Reactive Protein NT-Pro-B Natriuret Pep Total Protein Albumin PTH Intact Arterial Blood Glucose Arterial Blood Ionized Calcium Urine Creatinine Urine Total Protein Coronavirus (PCR) Crossmatch 09/11/20 09/12/20 09/12/20 21:24 06:16 06:16 WBC RBC Hgb Hct MCV MCH RDW Plt Count Lymph % (Auto) [place] % (Auto) Lymph # (Auto) Seg Neutrophils % Seg Neuts % (Manual) Lymphocytes % (Manual) Nucleated RBC % Seg Neutrophils # Seg Neutrophils # Man Lymphocytes # (Manual) PT 16.7 H INR 1.34 H D-Dimer Heparin Anti-Xa Level ABG pH POC ABG pCO2 POC ABG pO2 ABG Hemoglobin ABG Chloride ABG Glucose Sodium 149 H Potassium Chloride 124.7 H Carbon Dioxide 15 L BUN 67 H Creatinine 2.0 H Glucose 134 H POC Glucose 184 H Lactic Acid Calcium 8.1 L Magnesium Iron TIBC Ferritin AST Alkaline Phosphatase Lactate Dehydrogenase C-Reactive Protein NT-Pro-B Natriuret Pep Total Protein Albumin PTH Intact Arterial Blood Glucose Arterial Blood Ionized Calcium Urine Creatinine Urine Total Protein Coronavirus (PCR) Crossmatch 09/12/20 09/12/20 09/12/20 06:16 08:06 11:11 WBC 17.4 H RBC 2.55 L Hgb 6.7 L Hct 22.3 L MCV MCH 26 L RDW 31.8 H Plt Count 104 L Lymph % (Auto) [place] % (Auto) Lymph # (Auto) Seg Neutrophils % Seg Neuts % (Manual) 94.0 H Lymphocytes % (Manual) 1.0 L Nucleated RBC % 2.0 H Seg Neutrophils # Seg Neutrophils # Man 16.4 H Lymphocytes # (Manual) 0.2 L PT INR D-Dimer Heparin Anti-Xa Level ABG pH POC ABG pCO2 POC ABG pO2 ABG Hemoglobin ABG Chloride ABG Glucose Sodium Potassium Chloride Carbon Dioxide BUN Creatinine Glucose POC Glucose 127 H 128 H Lactic Acid Calcium Magnesium Iron TIBC Ferritin AST Alkaline Phosphatase Lactate Dehydrogenase C-Reactive Protein NT-Pro-B Natriuret Pep Total Protein Albumin PTH Intact Arterial Blood Glucose Arterial Blood Ionized Calcium Urine Creatinine Urine Total Protein Coronavirus (PCR) Crossmatch 09/12/20 09/13/20 09/13/20 16:30 00:02 07:26 WBC RBC Hgb Hct MCV MCH RDW Plt Count Lymph % (Auto) [place] % (Auto) Lymph # (Auto) Seg Neutrophils % Seg Neuts % (Manual) Lymphocytes % (Manual) Nucleated RBC % Seg Neutrophils # Seg Neutrophils # Man Lymphocytes # (Manual) PT 19.5 H INR 1.63 H D-Dimer Heparin Anti-Xa Level ABG pH POC ABG pCO2 POC ABG pO2 ABG Hemoglobin ABG Chloride ABG Glucose Sodium Potassium Chloride Carbon Dioxide BUN Creatinine Glucose POC Glucose 145 H 247 H Lactic Acid Calcium Magnesium Iron TIBC Ferritin AST Alkaline Phosphatase Lactate Dehydrogenase C-Reactive Protein NT-Pro-B Natriuret Pep Total Protein Albumin PTH Intact Arterial Blood Glucose Arterial Blood Ionized Calcium Urine Creatinine Urine Total Protein Coronavirus (PCR) Crossmatch 09/13/20 09/13/20 09/13/20 07:26 09:56 10:07 WBC 15.3 H RBC 2.62 L Hgb 7.1 L Hct 22.6 L MCV MCH 27 L RDW 28.7 H Plt Count 89 L Lymph % (Auto) [place] % (Auto) Lymph # (Auto) Seg Neutrophils % Seg Neuts % (Manual) Lymphocytes % (Manual) Nucleated RBC % Seg Neutrophils # Seg Neutrophils # Man Lymphocytes # (Manual) PT INR D-Dimer Heparin Anti-Xa Level ABG pH POC ABG pCO2 POC ABG pO2 ABG Hemoglobin ABG Chloride ABG Glucose Sodium 146 H Potassium Chloride 121.3 H Carbon Dioxide 13 L BUN 67 H Creatinine 1.8 H Glucose 194 H POC Glucose 233 H Lactic Acid Calcium 8.2 L Magnesium 1.40 L Iron TIBC Ferritin AST Alkaline Phosphatase Lactate Dehydrogenase C-Reactive Protein NT-Pro-B Natriuret Pep Total Protein Albumin PTH Intact Arterial Blood Glucose Arterial Blood Ionized Calcium Urine Creatinine Urine Total Protein Coronavirus (PCR) Crossmatch 09/13/20 09/13/20 09/14/20 13:37 17:17 00:42 WBC RBC Hgb Hct MCV MCH RDW Plt Count Lymph % (Auto) [place] % (Auto) Lymph # (Auto) Seg Neutrophils % Seg Neuts % (Manual) Lymphocytes % (Manual) Nucleated RBC % Seg Neutrophils # Seg Neutrophils # Man Lymphocytes # (Manual) PT INR D-Dimer Heparin Anti-Xa Level ABG pH POC ABG pCO2 POC ABG pO2 ABG Hemoglobin ABG Chloride ABG Glucose Sodium Potassium Chloride Carbon Dioxide BUN Creatinine Glucose POC Glucose 181 H 148 H 200 H Lactic Acid Calcium Magnesium Iron TIBC Ferritin AST Alkaline Phosphatase Lactate Dehydrogenase C-Reactive Protein NT-Pro-B Natriuret Pep Total Protein Albumin PTH Intact Arterial Blood Glucose Arterial Blood Ionized Calcium Urine Creatinine Urine Total Protein Coronavirus (PCR) Crossmatch 09/14/20 09/14/20 09/14/20 10:08 14:54 19:57 WBC RBC Hgb Hct MCV MCH RDW Plt Count Lymph % (Auto) [place] % (Auto) Lymph # (Auto) Seg Neutrophils % Seg Neuts % (Manual) Lymphocytes % (Manual) Nucleated RBC % Seg Neutrophils # Seg Neutrophils # Man Lymphocytes # (Manual) PT 19.4 H INR 1.62 H D-Dimer Heparin Anti-Xa Level ABG pH POC ABG pCO2 POC ABG pO2 ABG Hemoglobin ABG Chloride ABG Glucose Sodium Potassium Chloride Carbon Dioxide BUN Creatinine Glucose POC Glucose 204 H 138 H Lactic Acid Calcium Magnesium Iron TIBC Ferritin AST Alkaline Phosphatase Lactate Dehydrogenase C-Reactive Protein NT-Pro-B Natriuret Pep Total Protein Albumin PTH Intact Arterial Blood Glucose Arterial Blood Ionized Calcium Urine Creatinine Urine Total Protein Coronavirus (PCR) Crossmatch 09/14/20 09/14/20 09/15/20 19:57 23:02 08:34 WBC RBC Hgb Hct MCV MCH RDW Plt Count Lymph % (Auto) [place] % (Auto) Lymph # (Auto) Seg Neutrophils % Seg Neuts % (Manual) Lymphocytes % (Manual) Nucleated RBC % Seg Neutrophils # Seg Neutrophils # Man Lymphocytes # (Manual) PT INR D-Dimer Heparin Anti-Xa Level ABG pH POC ABG pCO2 POC ABG pO2 ABG Hemoglobin ABG Chloride ABG Glucose Sodium Potassium Chloride 117.8 H Carbon Dioxide 10 L BUN 26 H Creatinine 1.8 H Glucose 132 H POC Glucose 173 H 151 H Lactic Acid Calcium 8.2 L Magnesium Iron TIBC Ferritin AST Alkaline Phosphatase Lactate Dehydrogenase C-Reactive Protein NT-Pro-B Natriuret Pep Total Protein Albumin PTH Intact Arterial Blood Glucose Arterial Blood Ionized Calcium Urine Creatinine Urine Total Protein Coronavirus (PCR) Crossmatch 09/16/20 09/16/20 09/16/20 09:30 13:17 13:44 WBC RBC Hgb Hct MCV MCH RDW Plt Count Lymph % (Auto) [place] % (Auto) Lymph # (Auto) Seg Neutrophils % Seg Neuts % (Manual) Lymphocytes % (Manual) Nucleated RBC % Seg Neutrophils # Seg Neutrophils # Man Lymphocytes # (Manual) PT INR D-Dimer Heparin Anti-Xa Level ABG pH POC ABG pCO2 POC ABG pO2 ABG Hemoglobin ABG Chloride ABG Glucose Sodium Potassium Chloride 115.8 H Carbon Dioxide 16 L BUN 53 H Creatinine 1.8 H Glucose 148 H POC Glucose 114 H 130 H Lactic Acid Calcium 8.0 L Magnesium Iron TIBC Ferritin AST Alkaline Phosphatase Lactate Dehydrogenase C-Reactive Protein NT-Pro-B Natriuret Pep Total Protein Albumin PTH Intact Arterial Blood Glucose Arterial Blood Ionized Calcium Urine Creatinine Urine Total Protein Coronavirus (PCR) Crossmatch 09/16/20 09/16/20 09/16/20 13:44 16:49 22:46 WBC RBC 2.67 L Hgb 7.3 L Hct 22.0 L MCV MCH 27 L RDW 29.3 H Plt Count 65 L Lymph % (Auto) [place] % (Auto) Lymph # (Auto) Seg Neutrophils % Seg Neuts % (Manual) Lymphocytes % (Manual) Nucleated RBC % Seg Neutrophils # Seg Neutrophils # Man Lymphocytes # (Manual) PT INR D-Dimer Heparin Anti-Xa Level ABG pH POC ABG pCO2 POC ABG pO2 ABG Hemoglobin ABG Chloride ABG Glucose Sodium Potassium Chloride Carbon Dioxide BUN Creatinine Glucose POC Glucose 171 H 157 H Lactic Acid Calcium Magnesium Iron TIBC Ferritin AST Alkaline Phosphatase Lactate Dehydrogenase C-Reactive Protein NT-Pro-B Natriuret Pep Total Protein Albumin PTH Intact Arterial Blood Glucose Arterial Blood Ionized Calcium Urine Creatinine Urine Total Protein Coronavirus (PCR) Crossmatch 09/17/20 09/17/20 09/17/20 03:15 11:42 11:46 WBC RBC Hgb Hct MCV MCH RDW Plt Count Lymph % (Auto) [place] % (Auto) Lymph # (Auto) Seg Neutrophils % Seg Neuts % (Manual) Lymphocytes % (Manual) Nucleated RBC % Seg Neutrophils # Seg Neutrophils # Man Lymphocytes # (Manual) PT INR D-Dimer Heparin Anti-Xa Level ABG pH 7.172 L POC ABG pCO2 POC ABG pO2 456.0 H ABG Hemoglobin 6.8 L ABG Chloride 119.0 H ABG Glucose 143 H Sodium 147 H Potassium Chloride 120.9 H Carbon Dioxide 15 L BUN 54 H Creatinine 1.7 H Glucose 125 H POC Glucose 116 H Lactic Acid Calcium 7.8 L Magnesium Iron TIBC Ferritin AST Alkaline Phosphatase Lactate Dehydrogenase C-Reactive Protein NT-Pro-B Natriuret Pep Total Protein Albumin PTH Intact Arterial Blood Glucose 143 H Arterial Blood Ionized Calcium Urine Creatinine Urine Total Protein Coronavirus (PCR) Crossmatch 09/17/20 09/17/20 09/17/20 13:49 13:49 13:49 WBC 21.0 H RBC 2.53 L Hgb 6.9 L Hct 21.1 L MCV MCH 27 L RDW 29.1 H Plt Count 73 L Lymph % (Auto) [place] % (Auto) Lymph # (Auto) Seg Neutrophils % Seg Neuts % (Manual) Lymphocytes % (Manual) Nucleated RBC % Seg Neutrophils # Seg Neutrophils # Man Lymphocytes # (Manual) PT INR D-Dimer Heparin Anti-Xa Level ABG pH POC ABG pCO2 POC ABG pO2 ABG Hemoglobin ABG Chloride ABG Glucose Sodium 148 H Potassium Chloride 117.9 H Carbon Dioxide 16 L BUN 59 H Creatinine 1.9 H Glucose 126 H POC Glucose Lactic Acid Calcium 7.6 L Magnesium Iron TIBC Ferritin AST Alkaline Phosphatase Lactate Dehydrogenase C-Reactive Protein NT-Pro-B Natriuret Pep Total Protein Albumin PTH Intact Arterial Blood Glucose Arterial Blood Ionized Calcium Urine Creatinine Urine Total Protein Coronavirus (PCR) Crossmatch See Detail 09/17/20 09/17/20 09/17/20 17:42 21:06 22:19 WBC RBC Hgb 7.4 L Hct 23.3 L MCV MCH RDW Plt Count Lymph % (Auto) [place] % (Auto) Lymph # (Auto) Seg Neutrophils % Seg Neuts % (Manual) Lymphocytes % (Manual) Nucleated RBC % Seg Neutrophils # Seg Neutrophils # Man Lymphocytes # (Manual) PT INR D-Dimer Heparin Anti-Xa Level ABG pH POC ABG pCO2 POC ABG pO2 ABG Hemoglobin ABG Chloride ABG Glucose Sodium Potassium Chloride Carbon Dioxide BUN Creatinine Glucose POC Glucose 127 H 138 H Lactic Acid Calcium Magnesium Iron TIBC Ferritin AST Alkaline Phosphatase Lactate Dehydrogenase C-Reactive Protein NT-Pro-B Natriuret Pep Total Protein Albumin PTH Intact Arterial Blood Glucose Arterial Blood Ionized Calcium Urine Creatinine Urine Total Protein Coronavirus (PCR) Crossmatch 09/17/20 09/18/20 09/18/20 Unknown 04:00 04:14 WBC RBC Hgb Hct MCV MCH RDW Plt Count Lymph % (Auto) [place] % (Auto) Lymph # (Auto) Seg Neutrophils % Seg Neuts % (Manual) Lymphocytes % (Manual) Nucleated RBC % Seg Neutrophils # Seg Neutrophils # Man Lymphocytes # (Manual) PT INR D-Dimer Heparin Anti-Xa Level ABG pH POC ABG pCO2 27.5 L POC ABG pO2 143.4 H ABG Hemoglobin 7.7 L ABG Chloride 120.0 H ABG Glucose 169 H Sodium 149 H Potassium Chloride 118.6 H Carbon Dioxide 18 L BUN 65 H Creatinine 1.9 H Glucose 164 H POC Glucose Lactic Acid Calcium 7.6 L Magnesium Iron TIBC Ferritin AST Alkaline Phosphatase Lactate Dehydrogenase C-Reactive Protein NT-Pro-B Natriuret Pep Total Protein Albumin PTH Intact Arterial Blood Glucose 169 H Arterial Blood Ionized Calcium 4.4 L Urine Creatinine Urine Total Protein Coronavirus (PCR) Positive A Crossmatch 09/18/20 09/18/20 09/18/20 05:02 12:30 12:30 WBC 17.3 H RBC 2.51 L Hgb 6.8 L Hct 20.9 L MCV MCH 27 L RDW 24.1 H Plt Count 62 L Lymph % (Auto) [place] % (Auto) Lymph # (Auto) Seg Neutrophils % Seg Neuts % (Manual) Lymphocytes % (Manual) Nucleated RBC % Seg Neutrophils # Seg Neutrophils # Man Lymphocytes # (Manual) PT 22.3 H INR 1.94 H D-Dimer Heparin Anti-Xa Level ABG pH POC ABG pCO2 POC ABG pO2 ABG Hemoglobin ABG Chloride ABG Glucose Sodium Potassium Chloride Carbon Dioxide BUN Creatinine Glucose POC Glucose 136 H Lactic Acid Calcium Magnesium Iron TIBC Ferritin AST Alkaline Phosphatase Lactate Dehydrogenase C-Reactive Protein NT-Pro-B Natriuret Pep Total Protein Albumin PTH Intact Arterial Blood Glucose Arterial Blood Ionized Calcium Urine Creatinine Urine Total Protein Coronavirus (PCR) Crossmatch 09/18/20 09/18/20 09/19/20 12:35 21:12 04:13 WBC RBC Hgb Hct MCV MCH RDW Plt Count Lymph % (Auto) [place] % (Auto) Lymph # (Auto) Seg Neutrophils % Seg Neuts % (Manual) Lymphocytes % (Manual) Nucleated RBC % Seg Neutrophils # Seg Neutrophils # Man Lymphocytes # (Manual) PT INR D-Dimer Heparin Anti-Xa Level ABG pH POC ABG pCO2 30.0 L POC ABG pO2 161.7 H ABG Hemoglobin 10.9 L ABG Chloride 115.0 H ABG Glucose Sodium Potassium Chloride Carbon Dioxide BUN Creatinine Glucose POC Glucose 121 H 113 H Lactic Acid Calcium Magnesium Iron TIBC Ferritin AST Alkaline Phosphatase Lactate Dehydrogenase C-Reactive Protein NT-Pro-B Natriuret Pep Total Protein Albumin PTH Intact Arterial Blood Glucose Arterial Blood Ionized Calcium Urine Creatinine Urine Total Protein Coronavirus (PCR) Crossmatch 09/19/20 09/19/20 09/19/20 04:29 08:50 08:50 WBC 19.2 H RBC 2.48 L Hgb 6.8 L Hct 21.0 L MCV MCH RDW 22.7 H Plt Count 55 L Lymph % (Auto) [place] % (Auto) Lymph # (Auto) Seg Neutrophils % Seg Neuts % (Manual) Lymphocytes % (Manual) Nucleated RBC % Seg Neutrophils # Seg Neutrophils # Man Lymphocytes # (Manual) PT 22.5 H INR 1.97 H D-Dimer Heparin Anti-Xa Level ABG pH POC ABG pCO2 POC ABG pO2 ABG Hemoglobin ABG Chloride ABG Glucose Sodium 147 H Potassium Chloride 117.5 H Carbon Dioxide 17 L BUN 67 H Creatinine 2.2 H Glucose POC Glucose Lactic Acid Calcium 7.6 L Magnesium Iron TIBC Ferritin AST Alkaline Phosphatase 185 H Lactate Dehydrogenase C-Reactive Protein NT-Pro-B Natriuret Pep Total Protein 4.3 L Albumin 2.1 L PTH Intact Arterial Blood Glucose Arterial Blood Ionized Calcium Urine Creatinine Urine Total Protein Coronavirus (PCR) Crossmatch
--- NOTE | 2020-09-19 12:23 | Progress Note ---
Assessment and Plan --S/P Cardiorespiratory arrest on 09/17/20 -- Acute delirium/acute metabolic encephalopathy Etiology unknown, likely initially was metabolic s/p as needed haldol, placed on restraint then worsened by --Sepsis Due to COVID-19 pneumonia Blood culture NTD ID recommendations appreciated --COVID-19 pneumonia, POA Coronavirus protocol: Coronavirus PCR is positive, contact precaution, isolation precautions, prone positioning while in bed, Not a candidate for remdesivir due to renal failure Continue dexamethasone s/p convalescent plasma --Acute on chronic anemia Due to chronic GI bleed and iron deficiency Status post transfusion of 3 units PRBC, PPI. Continue to monitor for GI bleed As per GI, does not look like patient is having GI bleed at this time Advance diet as tolerated --Possible GI bleed, chronic Advance diet, GI on board Recommended to manage medically --Acute kidney injury (DIRK) with acute tubular necrosis (ATN) Continue to monitor renal function Nephrology following closely --Hypernatremia Continue isotonic solution Nephrology on board --Bilateral lower extremity DVT, chronic Consulted vascular surgeon for consideration of IVC filter placement. As per vascular surgery, patient is not a good candidate for IVC filter placement INR 2.74. GI recommended to treat with aspirin only --Diabetes Current Visit: Yes Status: Acute Plan to address problem: Sliding-scale insulin therapy, Accu-Chek, hypoglycemia protocol, consistent carbohydrate diet. --h/o tobacco --DVT prophylaxis, Anticoagulation --full code status The high probability of a clinically significant, sudden or life threatening de terioration of the [[employer]ACHINE, CVS, respiratory, renal, GI] system(s) required my full and direct attention, intervention and personal management. The aggregate critical care time was [34] minutes. This time is in addition to time spent performing reported procedures but includes the following: [x] Data Review and interpretation [x] Patient assessment and monitoring of vital signs [x] Documentation [x] Medication orders and management Brief History; 64 YO Female with HTN, DM, Anemia, PVD, Nicotine Dependence, positive coronavirus test recently at [facility] presented to the emergency room for further evaluation. Patient states that she has experienced subjective fever, generalized weakness, body aches, shortness of breath, nausea, multiple loose stools, lower extremity edema over the past 1 week with progressively worsening symptoms over the past 3 to 4 days prior to presentation. Here, patient found to be hypotensive with a systolic blood pressure ranging f rom 53-94. Patient was also hypothermic with a body temperature of 93.3 F. Patient met criteria for sepsis protocol and found to have bilateral pneumonia, metabolic acidosis, acute kidney injury. Patient admitted to telemetry due to increased risk of multisystem decompensation. Patient initiated on coronavirus protocol. Coronavirus PCR has been ordered, Patient remained hypotensive in spite of IV fluid resuscitation therapy. Patient subsequently upgraded to IMCU. daily course: 09/03. While in the ER, patient had an ultrasound Doppler performed that showed bilateral DVT involving the iliac veins. Patient was started on heparin drip. ID consulted for COVID-19 and nephrology consulted for DIRK. Patient seen and examined at bedside this morning. She has no complaints this morning. Her hemoglobin dropped to 6.4 this morning. Patient will get transfused 1 unit of PRBCs. Later this p.m., was notified by nurse that patient is having tarry dark stool and hematemesis. Heparin drip discontinued. Patient started on PPI drip and made n.p.o. GI is has been consulted. Patient will need to have an upper endoscopy. She has bilateral lower extremity DVT and will need vascular surgery evaluation to determine if she is a candidate for IVC filter placement. 09/04. Patient seen and examined at bedside this morning. Labs reviewed showed hemoglobin 5.3. Patient will receive 2 units PRBCs. FFP also ordered. GI evaluation pending. Continue PPIs. Vascular surgeon to see to determine if patient is a candidate for IVC filter placement for DVT. 09/05. Hb stable this morning. GI on board. On PPI drip. 09/06. Gastroenterology and vascular surgery recommendations reviewed. Patient not a good candidate for IVC filter placement due to location of the clot/thrombosis. Plan is for patient to have anticoagulation on while monitoring hemoglobin. Patient's INR is more than 2 at this time so we will hold anticoagulation for now and monitor hemoglobin. Plan to initiate antic oagulation when INR is less than 2. We will preferably use heparin products as she has a high chance of bleeding. Continue to monitor hemoglobin. Hb 7.3 this a.m. 09/07. Hemoglobin 8.2 this AM. No clear signs of GI bleed. Her INR is 2.74. No need for initiation of AC for now as she INR is already therapeutic. Plan is to monitor for bleeding and if she remains stable, she will be started on an ticoagulation for her bilateral DVT. Vascular surgery following-patient not a candidate for IVC catheter placement. GI recommendations appreciated 09/08: Patient is nonreactive to COVID-19 antibody, per ID order for convalescent plasma. Continue supportive care, follow clinically 09/09: Pending convalescent plasma transfusion, continue to follow inflammatory markers. Monitor H&H. Plan to start on aspirin tomorrow if INR and H&H stable 09/10: hb dropped to 6.8, transfuse one unit, discussed with GI - no plan for endoscopy now, cont to follow clinically 09/11: patient didn't get transfusion yesterday. became very agitated today, ordered as needed haldol, cont iv fluid. monitor clinically 09/12: placed on restrain o/n. cont supportive care, lost IV line - ordered for midline. pending PRBC transfusion 09/13: monitor h/h, patient more clam today, continue supportive care, follow B MP - Na and Cr has been improving 09/14: cont to monitor, follow BMP, follow h/h. oral intake improved per RN 09/15: If h/h stable and Cr cont to improves will d/c in a day or two 09/16; spoke with daughter and updated her with patient's clinical condition. family willing to accept the patient tomorrow. RN reported some Nose bleeding earlier today, but now resolved. repeat h/h stable 09/17: had respiratory/cardiac arrest this am. patient transferred to ICU. updated family. will get CT head, patient now intubated, start on bicarbonate drip 09/18; remains unresponsive, NG tube placed and noted bolld from the NG tube, discussed with GI - recommended PRBC/FFP transfusion. patient remains unresponsive w/o sedation and intubated. Called daughter and updated. 09/19: - Patient had OG tube with initial bloody secretions on insertion but currently with dark greenish output. No active bloody output from the OG tube. Rectal tube with dark greenish bilious output. No clear signs of active on-going GI bleeding. Off levophed. Continue to monitor H&H, transfuse as needed. Patient remains unresponsive without any sedation. Poor prognosis which I discussed with the family Subjective Date of service: 09/19/20 Principal diagnosis: Iron Def Anemia Objective - Constitutional Vitals: Vital Signs - 12hr 09/19/20 09/19/20 09/19/20 02:56 03:20 04:00 Temperature 97.2 F L Pulse Rate 82 74 Pulse Rate [ 74 From Monitor] Blood Pressure 109/61 O2 Sat by Pulse 100 Oximetry 09/19/20 09/19/20 08:15 11:53 Temperature Pulse Rate 71 90 Pulse Rate [ From Monitor] Blood Pressure 122/48 108/56 O2 Sat by Pulse 100 98 Oximetry - Labs CBC & Chem 7: 09/19/20 08:50 09/19/20 04:29 Labs: Abnormal lab results 09/17/20 09/18/20 09/18/20 Range/Units 13:49 12:30 12:30 WBC 17.3 H (4.5-11.0) K/mm3 RBC 2.51 L (3.65-5.03) M/mm3 Hgb 6.8 L (10.1-14.3) gm/dl Hct 20.9 L (30.3-42.9) % MCH 27 L (28-32) pg RDW 24.1 H (13.2-15.2) % Plt Count 62 L (140-440) K/mm3 PT 22.3 H (12.2-14.9) Sec. INR 1.94 H (0.87-1.13) POC ABG pCO2 (32.0-48.0) mmHg POC ABG pO2 (83-108) mmHg ABG Hemoglobin (12.0-17.5) ABG Chloride (98-107) mmol/L Sodium (137-145) mmol/L Chloride (98-107) mmol/L Carbon Dioxide (22-30) mmol/L BUN (7-17) mg/dL Creatinine (0.6-1.2) mg/dL POC Glucose (70-105) mg/dL Calcium (8.4-10.2) mg/dL Alkaline Phosphatase (35-129) units/L Total Protein (6.3-8.2) g/dL Albumin (3.9-5) g/dL Crossmatch See Detail 09/18/20 09/18/20 09/19/20 Range/Units 12:35 21:12 04:13 WBC (4.5-11.0) K/mm3 RBC (3.65-5.03) M/mm3 Hgb (10.1-14.3) gm/dl Hct (30.3-42.9) % MCH (28-32) pg RDW (13.2-15.2) % Plt Count (140-440) K/mm3 PT (12.2-14.9) Sec. INR (0.87-1.13) POC ABG pCO2 30.0 L (32.0-48.0) mmHg POC ABG pO2 161.7 H (83-108) mmHg ABG Hemoglobin 10.9 L (12.0-17.5) ABG Chloride 115.0 H (98-107) mmol/L Sodium (137-145) mmol/L Chloride (98-107) mmol/L Carbon Dioxide (22-30) mmol/L BUN (7-17) mg/dL Creatinine (0.6-1.2) mg/dL POC Glucose 121 H 113 H (70-105) mg/dL Calcium (8.4-10.2) mg/dL Alkaline Phosphatase (35-129) units/L Total Protein (6.3-8.2) g/dL Albumin (3.9-5) g/dL Crossmatch 09/19/20 09/19/20 09/19/20 Range/Units 04:29 08:50 08:50 WBC 19.2 H (4.5-11.0) K/mm3 RBC 2.48 L (3.65-5.03) M/mm3 Hgb 6.8 L (10.1-14.3) gm/dl Hct 21.0 L (30.3-42.9) % MCH (28-32) pg RDW 22.7 H (13.2-15.2) % Plt Count 55 L (140-440) K/mm3 PT 22.5 H (12.2-14.9) Sec. INR 1.97 H (0.87-1.13) POC ABG pCO2 (32.0-48.0) mmHg POC ABG pO2 (83-108) mmHg ABG Hemoglobin (12.0-17.5) ABG Chloride (98-107) mmol/L Sodium 147 H (137-145) mmol/L Chloride 117.5 H (98-107) mmol/L Carbon Dioxide 17 L (22-30) mmol/L BUN 67 H (7-17) mg/dL Creatinine 2.2 H (0.6-1.2) mg/dL POC Glucose (70-105) mg/dL Calcium 7.6 L (8.4-10.2) mg/dL Alkaline Phosphatase 185 H (35-129) units/L Total Protein 4.3 L (6.3-8.2) g/dL Albumin 2.1 L (3.9-5) g/dL Crossmatch
[2020-09-19] MEDS: INSULIN LISPRO 100 UNIT/ML VIAL 3 mL SUB-Q SCH ×2 (12:30→19:36)
--- NOTE | 2020-09-19 13:41 | Progress Note ---
Assessment and Plan 1. Acute kidney injury: DIRK secondary to combination of Vasomotor nephropathy and severe sepsis. Renal US negative for hydro. Monitor renal function. Creatinine level increasing. Prior Creatinine was 1.2 in 2014. Likely CKD stage 4. Renal prognosis is guarded. Avoid nephrotoxic agents. Meds dosage based on GFR. 2. FEN: Mild hyperkalemia, improved, monitor. Hyperchloremic Metabolic acidosis, on Potassium and IV Sodium bicarbonate, monitor. Hypernatremia, hypotonic IV fluids, monitor. Monitor lytes. 3. Nephrotic syndrome: Likely diabetic nephropathy. DEMARCUS, ANCA, complements, GBM Ab and SPEP re-ordered. 4. Severe sepsis, POA, now with shock: Off pressors. 5. Severe COVID infection: Followed by ID. 6. Acute hypoxic resp failure: Intubated post-arrest. On vent. 7. Bilateral LE DVT, POA. 8. Microcytic anemia, POA: S/p PRBC. Monitor. Seen by GI. 9. Thrombocytopenia, POA. 10. Acute diarrhea: Likely associated with COVID-19 infection. C. difficile test negative. Subjective: Patient was seen and examined at the bedside. Examination: General appearance: well-developed, appears stated age, no distress, intubated, on vent HEENT: JAYCE Neck: supple Respiratory: MV sounds heard Cardiology: regular, S1S2, no murmur Gastrointestinal: normoactive bowel sounds, no tenderness, not distended Integumentary: no obvious rash Neurologic: sedated, some extremity movement Ext: trace dependent edema, b/l BKA Subjective Date of service: 09/19/20 Principal diagnosis: Iron Def Anemia Objective - Vital Signs Vital signs: Vital Signs - 12hr 09/19/20 09/19/20 09/19/20 02:56 03:20 04:00 Temperature 97.2 F L Pulse Rate 82 74 Pulse Rate [ 74 From Monitor] Blood Pressure 109/61 O2 Sat by Pulse 100 Oximetry 09/19/20 09/19/20 08:15 11:53 Temperature Pulse Rate 71 90 Pulse Rate [ From Monitor] Blood Pressure 122/48 108/56 O2 Sat by Pulse 100 98 Oximetry - Lab 09/19/20 08:50 09/19/20 04:29 Most recent lab results ABG pH 7.408 (7.320-7.450) 09/19/20 04:13 Calcium 7.6 mg/dL (8.4-10.2) L 09/19/20 04:29 Phosphorus 3.50 mg/dL (2.5-4.5) 09/06/20 06:43 Magnesium 2.20 mg/dL (1.7-2.3) 09/14/20 19:57 Urine Creatinine 43.2 mg/dL (0.1-20.0) H 09/06/20 06:52 Urine Sodium 84 mmol/L 09/06/20 06:52 Urine Total Protein 298 mg/dL (5-11.8) H 09/06/20 06:52 Medications & Allergies - Medications Allergies/Adverse Reactions: Allergies No Known Allergies Allergy (Unverified 02/14/14 19:23) Home Medications: Home Medications Medication Instructions Recorded Confirmed Last Taken Type Aspirin [[place] Aspirin] 81 mg PO DAILY 02/14/14 02/22/14 02/14/14 11:00 History Ferrous Sulfate [Feosol 325mg] 325 mg PO DAILY 02/14/14 02/22/14 02/14/14 11:00 History Sertraline [Zoloft] 50 mg PO DAILY 02/14/14 02/22/14 02/14/14 11:00 History amLODIPine 5 mg PO DAILY 02/14/14 02/22/14 02/14/14 11:00 History hydroCHLOROthiazide 25 mg PO DAILY 02/14/14 02/22/14 02/14/14 11:00 History [Hydrochlorothiazide] Aspirin EC [Ecotrin] 325 mg PO QDAY #60 tablet 09/17/20 Unknown Rx Insulin Glargine [Lantus VIAL] 14 units SUB-Q QHS 30 Days 09/17/20 Unknown Rx Pantoprazole [Protonix TAB] 40 mg PO BIDAC #60 tablet 09/17/20 Unknown Rx calcitrioL [Rocaltrol] 0.5 mcg PO QDAY #30 capsule 09/17/20 Unknown Rx metOLazone [Zaroxolyn] 10 mg PO QDAY #30 tablet 09/17/20 Unknown Rx Active Medications: Generic Name Dose Route Start Last Admin Trade Name Freq PRN Reason Stop Dose Admin Acetaminophen 650 mg 09/02/20 00:30 09/05/20 22:50 Tylenol PO 650 mg Q6H PRN Administration Pain, Mild (1-3) Calcitriol 0.5 mcg 09/05/20 13:00 09/19/20 10:42 Rocaltrol PO 0.5 mcg QDAY JAE Administration Dextrose 50 ml 09/11/20 19:09 D50w (25gm) Syringe IV Q30MIN PRN Hypoglycemia Protocol Ferrous Sulfate 325 mg 09/02/20 10:00 09/19/20 10:42 Feosol PO 325 mg DAILY JAE Administration Haloperidol Lactate 5 mg 09/11/20 19:10 Haldol IM Q6H PRN Agitation Hydralazine HCl 10 mg 09/10/20 22:23 09/14/20 05:46 Apresoline IV 10 mg Q6H PRN Administration Blood Pressure Hydromorphone HCl 0.25 mg 09/02/20 00:30 09/05/20 23:28 Dilaudid IV 0.25 mg Q4H PRN Administration Pain, Moderate (4-6) Norepinephrine 4 mg in 250 mls @ 7.5 mls/hr 09/17/20 11:00 09/18/20 18:51 Levophed Drip 4 Mg/Ns 250 Ml IV 0 mcg/min TITR JAE 0 mls/hr Titration Protocol 2 MCG/MIN Sodium Bicarbonate 75 meq/ 1,075 mls @ 75 mls/hr 09/17/20 15:00 09/18/20 23 :39 Dextrose IV 75 mls/hr DIRECT JAE Administration Pantoprazole Sodium 80 mg/ 100 mls @ 10 mls/hr 09/17/20 18:00 09/19/20 05:21 Sodium Chloride IV 09/20/20 17:59 3 mg/hr DIRECT JAE 3.75 mls/hr Administration 8 MG/HR Insulin Glargine 14 units 09/07/20 22:00 09/18/20 05:27 Lantus SUB-Q Not Given QHS JAE Insulin Human Lispro 0 unit 09/19/20 12:00 Humalog SUB-Q Q6HR [facility] Protocol Multivitamins 5 ml 09/18/20 10:00 09/19/20 10:42 Centrum Liq PO 5 ml QDAY JAE Administration Potassium Bicarbonate 50 meq 09/10/20 22:00 09/19/20 10:43 Klor-Con PO Not Given BID [facility] Sertraline HCl 50 mg 09/02/20 10:00 09/19/20 10:42 Zoloft PO 50 mg DAILY JAE Administration Sodium Chloride 10 ml 09/02/20 10:00 09/19/20 10:42 Sodium Chloride Flush Syringe 10 Ml IV 10 ml BID JAE Administration Sodium Chloride 10 ml 09/02/20 00:30 Sodium Chloride Flush Syringe 10 Ml IV PRN PRN LINE FLUSH
[2020-09-19] MEDS ORDERED: SODIUM CHLORIDE 0.9% 500 ML 500 ML IV NR (14:01)
[2020-09-19] MEDS: SODIUM BICARBONATE 75 MEQ in DEXTROSE 5% IN WATER 1,000 ML IV SCH (15:10)
[2020-09-20] MEDS: K-LYTE 25 MEQ TABLET EFF PO SCH ×4 (02:38→21:40)
[2020-09-20] MEDS: INSULIN GLARGINE 100 UNITS/ML SUB-Q SCH (02:38)
[2020-09-20] MEDS: SODIUM BICARBONATE 75 MEQ in DEXTROSE 5% IN WATER 1,000 ML IV SCH ×2 (02:39→22:36)
[2020-09-20] MEDS: PANTOPRAZOLE 80 MG in SODIUM CHLORIDE 0.9% 100 ML IV SCH (02:39)
[2020-09-20] MEDS: INSULIN LISPRO 100 UNIT/ML VIAL 3 mL SUB-Q SCH ×4 (02:40→18:19)
[2020-09-20 09:11] LABS: Hemoglobin 9.2 gm/dl (10.1-14.3); Mean Corpuscular HGB Conc 33 % (30-34); Mean Corpuscular Volume 85 fl (79-97); Red Cell Distribution Width 17.8 % (13.2-15.2)
[2020-09-20 09:15] LABS: Platelet Count 59 K/mm3 (140-440)
[2020-09-20 09:26] LABS: Calcium 7.9 mg/dL (8.4-10.2)
[2020-09-20] MEDS: MULTIVITAMINS 5 ML ORAL LIQUID PO SCH (10:12)
[2020-09-20] MEDS: CALCITRIOL 0.5 MCG CAP PO SCH (10:12)
[2020-09-20] MEDS: FERROUS SULFATE 325 MG TAB PO SCH (10:12)
--- NOTE | 2020-09-20 11:31 | Progress Note ---
Assessment and Plan 64 y/o female with cardiac arrest this am, now intubated, not on sedation with severe metabolic acidosis. 1. Bicarb drip per renal 2. No sedatives. 3. Continue current vent support. RT to attempt weaning trial daily 4. May need to consider repeat head CT next week, neuro consult 5. Follow up any renal recs 6. Agree with volume 7. Overall prognosis is guarded. Pulseless total time is not definite. Continue supportive measures. CCT 31 minutes. Subjective Date of service: 09/20/20 Principal diagnosis: Iron Def Anemia Interval history: No acute events. Pulm status is stable. Mental status, really is unchanged but patient is moving more. GI ok with feeding Objective Vital Signs - 12hr 09/19/20 09/19/20 09/19/20 23:31 23:41 23:51 Temperature 98.5 F Pulse Rate 97 H 100 H 76 Pulse Rate [ From Monitor] Respiratory 17 18 15 Rate Blood Pressure 120/81 120/81 98/40 O2 Sat by Pulse 96 100 100 Oximetry 09/20/20 09/20/20 09/20/20 00:00 00:01 00:11 Temperature Pulse Rate 101 H 100 H 99 H Pulse Rate [ 101 H From Monitor] Respiratory 25 H 18 11 L Rate Blood Pressure 98/40 103/49 O2 Sat by Pulse 100 100 100 Oximetry 09/20/20 09/20/20 09/20/20 00:21 00:31 00:41 Temperature Pulse Rate 87 98 H 69 Pulse Rate [ From Monitor] Respiratory 25 H 15 25 H Rate Blood Pressure 75/25 75/25 106/45 O2 Sat by Pulse 100 100 100 Oximetry 09/20/20 09/20/20 09/20/20 00:51 01:01 01:11 Temperature Pulse Rate 63 95 H 101 H Pulse Rate [ From Monitor] Respiratory 25 H 19 17 Rate Blood Pressure 84/42 84/42 88/41 O2 Sat by Pulse 100 100 100 Oximetry 09/20/20 09/20/20 09/20/20 01:21 01:31 01:41 Temperature Pulse Rate 96 H 62 103 H Pulse Rate [ From Monitor] Respiratory 17 25 H 23 Rate Blood Pressure 107/29 89/33 89/33 O2 Sat by Pulse 100 99 100 Oximetry 09/20/20 09/20/20 09/20/20 01:51 02:00 02:11 Temperature Pulse Rate 67 97 H 104 H Pulse Rate [ From Monitor] Respiratory 25 H 12 19 Rate Blood Pressure 132/61 130/71 130/71 O2 Sat by Pulse 100 99 100 Oximetry 09/20/20 09/20/20 09/20/20 02:21 02:30 02:31 Temperature 97.9 F Pulse Rate 65 98 H Pulse Rate [ From Monitor] Respiratory 25 H 16 Rate Blood Pressure 134/69 129/57 O2 Sat by Pulse 100 98 Oximetry 09/20/20 09/20/20 09/20/20 02:41 02:46 02:51 Temperature 97.7 F Pulse Rate 100 H 60 Pulse Rate [ From Monitor] Respiratory 19 25 H Rate Blood Pressure 129/57 133/74 O2 Sat by Pulse 100 100 Oximetry 09/20/20 09/20/20 09/20/20 03:00 03:11 03:21 Temperature Pulse Rate 98 H 73 65 Pulse Rate [ From Monitor] Respiratory 22 25 H 25 H Rate Blood Pressure 132/68 132/68 139/63 O2 Sat by Pulse 97 100 100 Oximetry 09/20/20 09/20/20 09/20/20 03:30 03:41 03:51 Temperature Pulse Rate 82 91 H 83 Pulse Rate [ From Monitor] Respiratory 25 H 18 25 H Rate Blood Pressure 135/65 135/65 142/74 O2 Sat by Pulse 98 100 100 Oximetry 09/20/20 09/20/20 09/20/20 03:54 03:55 04:00 Temperature 98.3 F Pulse Rate 103 H 61 Pulse Rate [ 61 From Monitor] Respiratory 25 H Rate Blood Pressure 142/74 142/74 O2 Sat by Pulse 100 100 Oximetry 09/20/20 09/20/20 09/20/20 04:11 04:16 08:00 Temperature 97.9 F Pulse Rate 105 H 93 H Pulse Rate [ From Monitor] Respiratory 19 Rate Blood Pressure 151/59 160/74 O2 Sat by Pulse 100 100 Oximetry Constitutional: comatose ENT: other (orally intubated, not on sedation) Neck: supple Ascultation: Bilateral: clear Percussion: Bilateral: not dull Cardiovascular: regular rate and rhythm Extremities: other (bilateral amputee) CBC and BMP: 09/20/20 08:15 09/20/20 08:15 ABG, PT/INR, D-dimer: ABG ABG pH 7.430 (7.320-7.450) 09/20/20 04:35 POC ABG pCO2 28.5 mmHg (32.0-48.0) L 09/20/20 04:35 POC ABG pO2 93.6 mmHg (83-108) 09/20/20 04:35 POC ABG HCO3 18.5 09/20/20 04:35 PT/INR, D-dimer PT 22.5 Sec. (12.2-14.9) H 09/19/20 08:50 INR 1.97 (0.87-1.13) H 09/19/20 08:50 D-Dimer 1076.18 ng/mlDDU (0-234) H 09/01/20 21:55 Abnormal lab findings: Abnormal Labs 09/01/20 09/01/20 09/01/20 21:40 21:40 21:55 WBC RBC 3.42 L Hgb 7.9 L Hct 25.6 L MCV 75 L MCH 23 L RDW 35.7 H Plt Count 113 L Lymph % (Auto) [place] % (Auto) Lymph # (Auto) Seg Neutrophils % Seg Neuts % (Manual) 92.0 H Lymphocytes % (Manual) 5.0 L Nucleated RBC % Seg Neutrophils # Seg Neutrophils # Man Lymphocytes # (Manual) 0.3 L PT INR D-Dimer 1076.18 H Heparin Anti-Xa Level ABG pH POC ABG pCO2 POC ABG pO2 ABG Hemoglobin ABG Chloride ABG Glucose Sodium Potassium 5.1 H Chloride 117.5 H Carbon Dioxide 12 L BUN 51 H Creatinine 2.1 H Glucose POC Glucose Lactic Acid Calcium 7.8 L Magnesium Iron TIBC Ferritin AST 59 H Alkaline Phosphatase 242 H Lactate Dehydrogenase C-Reactive Protein NT-Pro-B Natriuret Pep Total Protein 5.3 L Albumin 2.5 L PTH Intact Arterial Blood Glucose Arterial Blood Ionized Calcium Urine Creatinine Urine Total Protein Coronavirus (PCR) Crossmatch 09/01/20 09/01/20 09/01/20 21:55 21:55 21:55 WBC RBC Hgb Hct MCV MCH RDW Plt Count Lymph % (Auto) [place] % (Auto) Lymph # (Auto) Seg Neutrophils % Seg Neuts % (Manual) Lymphocytes % (Manual) Nucleated RBC % Seg Neutrophils # Seg Neutrophils # Man Lymphocytes # (Manual) PT INR D-Dimer Heparin Anti-Xa Level ABG pH POC ABG pCO2 POC ABG pO2 ABG Hemoglobin ABG Chloride ABG Glucose Sodium Potassium Chloride Carbon Dioxide BUN Creatinine Glucose POC Glucose Lactic Acid Calcium Magnesium Iron TIBC Ferritin 313.5 H AST Alkaline Phosphatase Lactate Dehydrogenase 435 H C-Reactive Protein 2.30 H NT-Pro-B Natriuret Pep 22175 H Total Protein Albumin PTH Intact Arterial Blood Glucose Arterial Blood Ionized Calcium Urine Creatinine Urine Total Protein Coronavirus (PCR) Crossmatch 09/01/20 09/02/20 09/02/20 23:15 03:12 05:46 WBC RBC Hgb Hct MCV MCH RDW Plt Count Lymph % (Auto) [place] % (Auto) Lymph # (Auto) Seg Neutrophils % Seg Neuts % (Manual) Lymphocytes % (Manual) Nucleated RBC % Seg Neutrophils # Seg Neutrophils # Man Lymphocytes # (Manual) PT INR D-Dimer Heparin Anti-Xa Level ABG pH POC ABG pCO2 POC ABG pO2 ABG Hemoglobin ABG Chloride ABG Glucose Sodium Potassium Chloride Carbon Dioxide BUN Creatinine Glucose POC Glucose 65 L Lactic Acid 0.60 L Calcium Magnesium Iron TIBC Ferritin AST Alkaline Phosphatase Lactate Dehydrogenase C-Reactive Protein NT-Pro-B Natriuret Pep Total Protein Albumin PTH Intact Arterial Blood Glucose Arterial Blood Ionized Calcium Urine Creatinine Urine Total Protein Coronavirus (PCR) Crossmatch See Detail 09/02/20 09/02/20 09/02/20 06:50 07:35 08:10 WBC RBC Hgb Hct MCV MCH RDW Plt Count Lymph % (Auto) [place] % (Auto) Lymph # (Auto) Seg Neutrophils % Seg Neuts % (Manual) Lymphocytes % (Manual) Nucleated RBC % Seg Neutrophils # Seg Neutrophils # Man Lymphocytes # (Manual) PT INR D-Dimer Heparin Anti-Xa Level ABG pH POC ABG pCO2 POC ABG pO2 ABG Hemoglobin ABG Chloride ABG Glucose Sodium Potassium Chloride Carbon Dioxide BUN Creatinine Glucose POC Glucose 60 L 116 H Lactic Acid 0.60 L Calcium Magnesium Iron TIBC Ferritin AST Alkaline Phosphatase Lactate Dehydrogenase C-Reactive Protein NT-Pro-B Natriuret Pep Total Protein Albumin PTH Intact Arterial Blood Glucose Arterial Blood Ionized Calcium Urine Creatinine Urine Total Protein Coronavirus (PCR) Crossmatch 09/02/20 09/02/20 09/02/20 08:10 08:10 12:07 WBC RBC 3.34 L Hgb 7.6 L Hct 24.7 L MCV 74 L MCH 23 L RDW 35.8 H Plt Count 110 L Lymph % (Auto) [place] % (Auto) Lymph # (Auto) Seg Neutrophils % Seg Neuts % (Manual) 97.0 H Lymphocytes % (Manual) 2.0 L Nucleated RBC % Seg Neutrophils # Seg Neutrophils # Man Lymphocytes # (Manual) 0.1 L PT INR D-Dimer Heparin Anti-Xa Level ABG pH POC ABG pCO2 POC ABG pO2 ABG Hemoglobin ABG Chloride ABG Glucose Sodium Potassium 5.2 H Chloride 120.1 H Carbon Dioxide 11 L BUN 51 H Creatinine 2.0 H Glucose POC Glucose 121 H Lactic Acid Calcium 7.4 L Magnesium Iron TIBC Ferritin AST Alkaline Phosphatase Lactate Dehydrogenase C-Reactive Protein NT-Pro-B Natriuret Pep Total Protein Albumin PTH Intact Arterial Blood Glucose Arterial Blood Ionized Calcium Urine Creatinine Urine Total Protein Coronavirus (PCR) Crossmatch 09/02/20 09/02/20 09/03/20 13:52 19:50 00:32 WBC RBC Hgb 7.9 L Hct 27.4 L MCV MCH RDW Plt Count 133 L Lymph % (Auto) [place] % (Auto) Lymph # (Auto) Seg Neutrophils % Seg Neuts % (Manual) Lymphocytes % (Manual) Nucleated RBC % Seg Neutrophils # Seg Neutrophils # Man Lymphocytes # (Manual) PT INR D-Dimer Heparin Anti-Xa Level 0.78 H ABG pH POC ABG pCO2 POC ABG pO2 ABG Hemoglobin ABG Chloride ABG Glucose Sodium Potassium Chloride Carbon Dioxide BUN Creatinine Glucose POC Glucose 206 H Lactic Acid Calcium Magnesium Iron TIBC Ferritin AST Alkaline Phosphatase Lactate Dehydrogenase C-Reactive Protein NT-Pro-B Natriuret Pep Total Protein Albumin PTH Intact Arterial Blood Glucose Arterial Blood Ionized Calcium Urine Creatinine Urine Total Protein Coronavirus (PCR) Crossmatch 09/03/20 09/03/20 09/03/20 05:17 05:17 05:17 WBC RBC 2.87 L Hgb 6.4 L Hct 21.5 L MCV 75 L MCH 22 L RDW 35.3 H Plt Count Lymph % (Auto) [place] % (Auto) Lymph # (Auto) Seg Neutrophils % Seg Neuts % (Manual) 76.0 H Lymphocytes % (Manual) Nucleated RBC % Seg Neutrophils # Seg Neutrophils # Man 7.8 H Lymphocytes # (Manual) PT 17.0 H INR 1.35 H D-Dimer Heparin Anti-Xa Level 0.94 H ABG pH POC ABG pCO2 POC ABG pO2 ABG Hemoglobin ABG Chloride ABG Glucose Sodium 147 H Potassium 5.2 H Chloride 123.4 H Carbon Dioxide 11 L BUN 59 H Creatinine 2.0 H Glucose 204 H POC Glucose Lactic Acid Calcium 7.4 L Magnesium Iron TIBC Ferritin AST Alkaline Phosphatase Lactate Dehydrogenase C-Reactive Protein NT-Pro-B Natriuret Pep Total Protein Albumin PTH Intact Arterial Blood Glucose Arterial Blood Ionized Calcium Urine Creatinine Urine Total Protein Coronavirus (PCR) Crossmatch 09/03/20 09/03/20 09/03/20 06:05 08:48 11:43 WBC RBC Hgb Hct MCV MCH RDW Plt Count Lymph % (Auto) [place] % (Auto) Lymph # (Auto) Seg Neutrophils % Seg Neuts % (Manual) Lymphocytes % (Manual) Nucleated RBC % Seg Neutrophils # Seg Neutrophils # Man Lymphocytes # (Manual) PT INR D-Dimer Heparin Anti-Xa Level ABG pH POC ABG pCO2 POC ABG pO2 ABG Hemoglobin ABG Chloride ABG Glucose Sodium Potassium Chloride Carbon Dioxide BUN Creatinine Glucose POC Glucose 190 H 223 H 242 H Lactic Acid Calcium Magnesium Iron TIBC Ferritin AST Alkaline Phosphatase Lactate Dehydrogenase C-Reactive Protein NT-Pro-B Natriuret Pep Total Protein Albumin PTH Intact Arterial Blood Glucose Arterial Blood Ionized Calcium Urine Creatinine Urine Total Protein Coronavirus (PCR) Crossmatch 09/03/20 09/03/20 09/04/20 16:21 23:37 05:18 WBC RBC 2.26 L Hgb 5.3 L* Hct 17.1 L* MCV 76 L MCH 24 L RDW 33.7 H Plt Count Lymph % (Auto) 8.0 L [place] % (Auto) 7.5 H Lymph # (Auto) 0.7 L Seg Neutrophils % 84.3 H Seg Neuts % (Manual) Lymphocytes % (Manual) Nucleated RBC % Seg Neutrophils # Seg Neutrophils # Man Lymphocytes # (Manual) PT INR D-Dimer Heparin Anti-Xa Level ABG pH POC ABG pCO2 POC ABG pO2 ABG Hemoglobin ABG Chloride ABG Glucose Sodium Potassium Chloride Carbon Dioxide BUN Creatinine Glucose POC Glucose 280 H 228 H Lactic Acid Calcium Magnesium Iron TIBC Ferritin AST Alkaline Phosphatase Lactate Dehydrogenase C-Reactive Protein NT-Pro-B Natriuret Pep Total Protein Albumin PTH Intact Arterial Blood Glucose Arterial Blood Ionized Calcium Urine Creatinine Urine Total Protein Coronavirus (PCR) Crossmatch 09/04/20 09/04/20 09/04/20 05:18 05:18 05:18 WBC RBC Hgb Hct MCV MCH RDW Plt Count Lymph % (Auto) [place] % (Auto) Lymph # (Auto) Seg Neutrophils % Seg Neuts % (Manual) Lymphocytes % (Manual) Nucleated RBC % Seg Neutrophils # Seg Neutrophils # Man Lymphocytes # (Manual) PT 19.6 H INR 1.62 H D-Dimer Heparin Anti-Xa Level ABG pH POC ABG pCO2 POC ABG pO2 ABG Hemoglobin ABG Chloride ABG Glucose Sodium 149 H Potassium 5.2 H Chloride 125.6 H Carbon Dioxide 14 L BUN 86 H Creatinine 2.3 H Glucose 232 H POC Glucose Lactic Acid Calcium 7.5 L Magnesium Iron TIBC Ferritin AST Alkaline Phosphatase 144 H Lactate Dehydrogenase C-Reactive Protein NT-Pro-B Natriuret Pep Total Protein 4.1 L D Albumin 1.9 L PTH Intact 820.4 H Arterial Blood Glucose Arterial Blood Ionized Calcium Urine Creatinine Urine Total Protein Coronavirus (PCR) Crossmatch 09/04/20 09/04/20 09/04/20 06:33 09:03 12:08 WBC RBC Hgb Hct MCV MCH RDW Plt Count Lymph % (Auto) [place] % (Auto) Lymph # (Auto) Seg Neutrophils % Seg Neuts % (Manual) Lymphocytes % (Manual) Nucleated RBC % Seg Neutrophils # Seg Neutrophils # Man Lymphocytes # (Manual) PT INR D-Dimer Heparin Anti-Xa Level ABG pH POC ABG pCO2 POC ABG pO2 ABG Hemoglobin ABG Chloride ABG Glucose Sodium Potassium Chloride Carbon Dioxide BUN Creatinine Glucose POC Glucose 224 H 264 H 247 H Lactic Acid Calcium Magnesium Iron TIBC Ferritin AST Alkaline Phosphatase Lactate Dehydrogenase C-Reactive Protein NT-Pro-B Natriuret Pep Total Protein Albumin PTH Intact Arterial Blood Glucose Arterial Blood Ionized Calcium Urine Creatinine Urine Total Protein Coronavirus (PCR) Crossmatch 09/04/20 09/04/20 09/04/20 15:01 18:58 22:28 WBC RBC Hgb 8.7 L D Hct 27.4 L D MCV MCH RDW Plt Count Lymph % (Auto) [place] % (Auto) Lymph # (Auto) Seg Neutrophils % Seg Neuts % (Manual) Lymphocytes % (Manual) Nucleated RBC % Seg Neutrophils # Seg Neutrophils # Man Lymphocytes # (Manual) PT INR D-Dimer Heparin Anti-Xa Level ABG pH POC ABG pCO2 POC ABG pO2 ABG Hemoglobin ABG Chloride ABG Glucose Sodium Potassium Chloride Carbon Dioxide BUN Creatinine Glucose POC Glucose 202 H 181 H Lactic Acid Calcium Magnesium Iron TIBC Ferritin AST Alkaline Phosphatase Lactate Dehydrogenase C-Reactive Protein NT-Pro-B Natriuret Pep Total Protein Albumin PTH Intact Arterial Blood Glucose Arterial Blood Ionized Calcium Urine Creatinine Urine Total Protein Coronavirus (PCR) Crossmatch 09/05/20 09/05/20 09/05/20 00:55 07:56 08:28 WBC RBC Hgb 7.8 L Hct 23.8 L MCV MCH RDW Plt Count Lymph % (Auto) [place] % (Auto) Lymph # (Auto) Seg Neutrophils % Seg Neuts % (Manual) Lymphocytes % (Manual) Nucleated RBC % Seg Neutrophils # Seg Neutrophils # Man Lymphocytes # (Manual) PT 23.2 H INR 2.01 H D-Dimer Heparin Anti-Xa Level ABG pH POC ABG pCO2 POC ABG pO2 ABG Hemoglobin ABG Chloride ABG Glucose Sodium Potassium Chloride Carbon Dioxide BUN Creatinine Glucose POC Glucose 176 H Lactic Acid Calcium Magnesium Iron TIBC Ferritin AST Alkaline Phosphatase Lactate Dehydrogenase C-Reactive Protein NT-Pro-B Natriuret Pep Total Protein Albumin PTH Intact Arterial Blood Glucose Arterial Blood Ionized Calcium Urine Creatinine Urine Total Protein Coronavirus (PCR) Crossmatch 09/05/20 09/05/20 09/05/20 08:28 08:28 12:14 WBC 11.8 H RBC 2.93 L Hgb 7.7 L Hct 23.2 L MCV MCH 26 L RDW 28.4 H Plt Count Lymph % (Auto) 9.2 L [place] % (Auto) Lymph # (Auto) 1.1 L Seg Neutrophils % 85.4 H Seg Neuts % (Manual) Lymphocytes % (Manual) Nucleated RBC % Seg Neutrophils # 10.1 H Seg Neutrophils # Man Lymphocytes # (Manual) PT INR D-Dimer Heparin Anti-Xa Level ABG pH POC ABG pCO2 POC ABG pO2 ABG Hemoglobin ABG Chloride ABG Glucose Sodium 152 H Potassium Chloride 125.7 H Carbon Dioxide 13 L BUN 86 H Creatinine 2.3 H Glucose 152 H POC Glucose 131 H Lactic Acid Calcium 7.9 L Magnesium Iron TIBC Ferritin AST Alkaline Phosphatase 155 H Lactate Dehydrogenase C-Reactive Protein NT-Pro-B Natriuret Pep Total Protein 4.6 L Albumin 2.5 L PTH Intact Arterial Blood Glucose Arterial Blood Ionized Calcium Urine Creatinine Urine Total Protein Coronavirus (PCR) Crossmatch 09/05/20 09/05/20 09/06/20 18:58 21:22 00:03 WBC RBC Hgb 8.0 L 7.4 L Hct 25.7 L 22.8 L MCV MCH RDW Plt Count Lymph % (Auto) [place] % (Auto) Lymph # (Auto) Seg Neutrophils % Seg Neuts % (Manual) Lymphocytes % (Manual) Nucleated RBC % Seg Neutrophils # Seg Neutrophils # Man Lymphocytes # (Manual) PT INR D-Dimer Heparin Anti-Xa Level ABG pH POC ABG pCO2 POC ABG pO2 ABG Hemoglobin ABG Chloride ABG Glucose Sodium Potassium Chloride Carbon Dioxide BUN Creatinine Glucose POC Glucose 171 H Lactic Acid Calcium Magnesium Iron TIBC Ferritin AST Alkaline Phosphatase Lactate Dehydrogenase C-Reactive Protein NT-Pro-B Natriuret Pep Total Protein Albumin PTH Intact Arterial Blood Glucose Arterial Blood Ionized Calcium Urine Creatinine Urine Total Protein Coronavirus (PCR) Crossmatch 09/06/20 09/06/20 09/06/20 06:43 06:43 06:43 WBC RBC 2.76 L Hgb 7.3 L Hct 21.9 L MCV MCH 26 L RDW 29.0 H Plt Count Lymph % (Auto) [place] % (Auto) Lymph # (Auto) Seg Neutrophils % Seg Neuts % (Manual) 94.0 H Lymphocytes % (Manual) 2.0 L Nucleated RBC % 3.0 H Seg Neutrophils # Seg Neutrophils # Man 8.6 H Lymphocytes # (Manual) 0.2 L PT 26.4 H INR 2.37 H D-Dimer Heparin Anti-Xa Level ABG pH POC ABG pCO2 POC ABG pO2 ABG Hemoglobin ABG Chloride ABG Glucose Sodium 151 H Potassium Chloride 125.5 H Carbon Dioxide 12 L BUN 83 H Creatinine 2.3 H Glucose 130 H POC Glucose Lactic Acid Calcium 8.2 L Magnesium Iron TIBC Ferritin AST Alkaline Phosphatase 157 H Lactate Dehydrogenase C-Reactive Protein NT-Pro-B Natriuret Pep Total Protein 4.5 L Albumin 2.4 L PTH Intact Arterial Blood Glucose Arterial Blood Ionized Calcium Urine Creatinine Urine Total Protein Coronavirus (PCR) Crossmatch 09/06/20 09/06/20 09/06/20 06:52 08:31 11:31 WBC RBC Hgb Hct MCV MCH RDW Plt Count Lymph % (Auto) [place] % (Auto) Lymph # (Auto) Seg Neutrophils % Seg Neuts % (Manual) Lymphocytes % (Manual) Nucleated RBC % Seg Neutrophils # Seg Neutrophils # Man Lymphocytes # (Manual) PT INR D-Dimer Heparin Anti-Xa Level ABG pH POC ABG pCO2 POC ABG pO2 ABG Hemoglobin ABG Chloride ABG Glucose Sodium Potassium Chloride Carbon Dioxide BUN Creatinine Glucose POC Glucose 148 H 171 H Lactic Acid Calcium Magnesium Iron TIBC Ferritin AST Alkaline Phosphatase Lactate Dehydrogenase C-Reactive Protein NT-Pro-B Natriuret Pep Total Protein Albumin PTH Intact Arterial Blood Glucose Arterial Blood Ionized Calcium Urine Creatinine 43.2 H Urine Total Protein 298 H Coronavirus (PCR) Crossmatch 09/06/20 09/06/20 09/06/20 14:59 18:03 21:36 WBC RBC Hgb 7.7 L Hct 24.5 L MCV MCH RDW Plt Count Lymph % (Auto) [place] % (Auto) Lymph # (Auto) Seg Neutrophils % Seg Neuts % (Manual) Lymphocytes % (Manual) Nucleated RBC % Seg Neutrophils # Seg Neutrophils # Man Lymphocytes # (Manual) PT INR D-Dimer Heparin Anti-Xa Level ABG pH POC ABG pCO2 POC ABG pO2 ABG Hemoglobin ABG Chloride ABG Glucose Sodium Potassium Chloride Carbon Dioxide BUN Creatinine Glucose POC Glucose 135 H 131 H Lactic Acid Calcium Magnesium Iron TIBC Ferritin AST Alkaline Phosphatase Lactate Dehydrogenase C-Reactive Protein NT-Pro-B Natriuret Pep Total Protein Albumin PTH Intact Arterial Blood Glucose Arterial Blood Ionized Calcium Urine Creatinine Urine Total Protein Coronavirus (PCR) Crossmatch 09/07/20 09/07/20 09/07/20 01:27 09:13 09:13 WBC RBC 3.13 L Hgb 7.5 L 8.2 L Hct 23.4 L 25.5 L MCV MCH 26 L RDW 28.6 H Plt Count Lymph % (Auto) [place] % (Auto) Lymph # (Auto) Seg Neutrophils % Seg Neuts % (Manual) 94.0 H Lymphocytes % (Manual) 3.0 L Nucleated RBC % 2.0 H Seg Neutrophils # Seg Neutrophils # Man 9.5 H Lymphocytes # (Manual) 0.3 L PT 29.6 H INR 2.74 H D-Dimer Heparin Anti-Xa Level ABG pH POC ABG pCO2 POC ABG pO2 ABG Hemoglobin ABG Chloride ABG Glucose Sodium Potassium Chloride Carbon Dioxide BUN Creatinine Glucose POC Glucose Lactic Acid Calcium Magnesium Iron TIBC Ferritin AST Alkaline Phosphatase Lactate Dehydrogenase C-Reactive Protein NT-Pro-B Natriuret Pep Total Protein Albumin PTH Intact Arterial Blood Glucose Arterial Blood Ionized Calcium Urine Creatinine Urine Total Protein Coronavirus (PCR) Crossmatch 09/07/20 09/07/20 09/07/20 09:13 17:15 18:38 WBC RBC Hgb Hct MCV MCH RDW Plt Count Lymph % (Auto) [place] % (Auto) Lymph # (Auto) Seg Neutrophils % Seg Neuts % (Manual) Lymphocytes % (Manual) Nucleated RBC % Seg Neutrophils # Seg Neutrophils # Man Lymphocytes # (Manual) PT INR D-Dimer Heparin Anti-Xa Level ABG pH POC ABG pCO2 POC ABG pO2 ABG Hemoglobin ABG Chloride ABG Glucose Sodium 152 H Potassium Chloride 129.1 H Carbon Dioxide 13 L BUN 78 H Creatinine 2.4 H Glucose 111 H POC Glucose 59 L 107 H Lactic Acid Calcium Magnesium Iron 28 L TIBC 188 L Ferritin AST Alkaline Phosphatase 191 H Lactate Dehydrogenase C-Reactive Protein NT-Pro-B Natriuret Pep Total Protein 5.0 L Albumin 2.4 L PTH Intact Arterial Blood Glucose Arterial Blood Ionized Calcium Urine Creatinine Urine Total Protein Coronavirus (PCR) Crossmatch 09/07/20 09/08/20 09/08/20 Unknown 05:18 05:18 WBC 12.0 H RBC 2.93 L Hgb 7.6 L Hct 23.7 L MCV MCH 26 L RDW 29.3 H Plt Count 130 L Lymph % (Auto) [place] % (Auto) Lymph # (Auto) Seg Neutrophils % 78.8 H Seg Neuts % (Manual) Lymphocytes % (Manual) Nucleated RBC % Seg Neutrophils # 9.5 H Seg Neutrophils # Man Lymphocytes # (Manual) PT 34.0 H INR 3.27 H D-Dimer Heparin Anti-Xa Level ABG pH POC ABG pCO2 POC ABG pO2 ABG Hemoglobin ABG Chloride ABG Glucose Sodium Potassium Chloride Carbon Dioxide BUN Creatinine Glucose POC Glucose Lactic Acid Calcium Magnesium Iron TIBC Ferritin AST Alkaline Phosphatase Lactate Dehydrogenase C-Reactive Protein NT-Pro-B Natriuret Pep Total Protein Albumin PTH Intact Arterial Blood Glucose Arterial Blood Ionized Calcium Urine Creatinine Urine Total Protein Coronavirus (PCR) Positive A Crossmatch 09/08/20 09/08/20 09/08/20 05:18 12:21 22:01 WBC RBC Hgb Hct MCV MCH RDW Plt Count Lymph % (Auto) [place] % (Auto) Lymph # (Auto) Seg Neutrophils % Seg Neuts % (Manual) Lymphocytes % (Manual) Nucleated RBC % Seg Neutrophils # Seg Neutrophils # Man Lymphocytes # (Manual) PT INR D-Dimer Heparin Anti-Xa Level ABG pH POC ABG pCO2 POC ABG pO2 ABG Hemoglobin ABG Chloride ABG Glucose Sodium 148 H Potassium Chloride 127.0 H Carbon Dioxide 12 L BUN 77 H Creatinine 2.3 H Glucose 60 L POC Glucose 110 H 129 H Lactic Acid Calcium Magnesium Iron TIBC Ferritin AST Alkaline Phosphatase 185 H Lactate Dehydrogenase C-Reactive Protein NT-Pro-B Natriuret Pep Total Protein 5.0 L Albumin 2.4 L PTH Intact Arterial Blood Glucose Arterial Blood Ionized Calcium Urine Creatinine Urine Total Protein Coronavirus (PCR) Crossmatch 09/09/20 09/09/20 09/09/20 09:06 09:06 09:06 WBC 11.5 H RBC 2.92 L Hgb 7.5 L Hct 23.9 L MCV MCH 26 L RDW 29.4 H Plt Count 119 L Lymph % (Auto) [place] % (Auto) Lymph # (Auto) Seg Neutrophils % Seg Neuts % (Manual) 98.0 H Lymphocytes % (Manual) 0 L Nucleated RBC % Seg Neutrophils # Seg Neutrophils # Man 11.3 H Lymphocytes # (Manual) 0.0 L PT 19.3 H INR 1.59 H D-Dimer Heparin Anti-Xa Level ABG pH POC ABG pCO2 POC ABG pO2 ABG Hemoglobin ABG Chloride ABG Glucose Sodium 153 H Potassium Chloride 128.7 H Carbon Dioxide 13 L BUN 70 H Creatinine 2.3 H Glucose 102 H POC Glucose Lactic Acid Calcium Magnesium Iron TIBC Ferritin AST Alkaline Phosphatase 186 H Lactate Dehydrogenase C-Reactive Protein NT-Pro-B Natriuret Pep Total Protein 4.4 L Albumin 2.4 L PTH Intact Arterial Blood Glucose Arterial Blood Ionized Calcium Urine Creatinine Urine Total Protein Coronavirus (PCR) Crossmatch 09/09/20 09/10/20 09/10/20 23:08 05:12 05:12 WBC 12.1 H RBC 2.66 L Hgb 6.8 L Hct 22.0 L MCV MCH 26 L RDW 29.9 H Plt Count 110 L Lymph % (Auto) [place] % (Auto) Lymph # (Auto) Seg Neutrophils % Seg Neuts % (Manual) 97.0 H Lymphocytes % (Manual) 0 L Nucleated RBC % Seg Neutrophils # Seg Neutrophils # Man 11.7 H Lymphocytes # (Manual) 0.0 L PT INR D-Dimer Heparin Anti-Xa Level ABG pH POC ABG pCO2 POC ABG pO2 ABG Hemoglobin ABG Chloride ABG Glucose Sodium 153 H Potassium Chloride 126.8 H Carbon Dioxide 14 L BUN 69 H Creatinine 2.2 H Glucose 129 H POC Glucose 142 H Lactic Acid Calcium 8.1 L Magnesium Iron TIBC Ferritin AST Alkaline Phosphatase 180 H Lactate Dehydrogenase C-Reactive Protein NT-Pro-B Natriuret Pep Total Protein 4.2 L Albumin 2.3 L PTH Intact Arterial Blood Glucose Arterial Blood Ionized Calcium Urine Creatinine Urine Total Protein Coronavirus (PCR) Crossmatch 09/10/20 09/10/20 09/10/20 05:12 07:59 12:23 WBC RBC Hgb Hct MCV MCH RDW Plt Count Lymph % (Auto) [place] % (Auto) Lymph # (Auto) Seg Neutrophils % Seg Neuts % (Manual) Lymphocytes % (Manual) Nucleated RBC % Seg Neutrophils # Seg Neutrophils # Man Lymphocytes # (Manual) PT 16.7 H INR 1.32 H D-Dimer Heparin Anti-Xa Level ABG pH POC ABG pCO2 POC ABG pO2 ABG Hemoglobin ABG Chloride ABG Glucose Sodium Potassium Chloride Carbon Dioxide BUN Creatinine Glucose POC Glucose 162 H 148 H Lactic Acid Calcium Magnesium Iron TIBC Ferritin AST Alkaline Phosphatase Lactate Dehydrogenase C-Reactive Protein NT-Pro-B Natriuret Pep Total Protein Albumin PTH Intact Arterial Blood Glucose Arterial Blood Ionized Calcium Urine Creatinine Urine Total Protein Coronavirus (PCR) Crossmatch 09/10/20 09/10/20 09/10/20 13:48 17:04 21:55 WBC RBC Hgb Hct MCV MCH RDW Plt Count Lymph % (Auto) [place] % (Auto) Lymph # (Auto) Seg Neutrophils % Seg Neuts % (Manual) Lymphocytes % (Manual) Nucleated RBC % Seg Neutrophils # Seg Neutrophils # Man Lymphocytes # (Manual) PT INR D-Dimer Heparin Anti-Xa Level ABG pH POC ABG pCO2 POC ABG pO2 ABG Hemoglobin ABG Chloride ABG Glucose Sodium Potassium Chloride Carbon Dioxide BUN Creatinine Glucose POC Glucose 162 H 155 H Lactic Acid Calcium Magnesium Iron TIBC Ferritin AST Alkaline Phosphatase Lactate Dehydrogenase C-Reactive Protein NT-Pro-B Natriuret Pep Total Protein Albumin PTH Intact Arterial Blood Glucose Arterial Blood Ionized Calcium Urine Creatinine Urine Total Protein Coronavirus (PCR) Crossmatch See Detail 09/11/20 09/11/20 09/11/20 08:25 08:25 08:25 WBC 13.2 H RBC 2.68 L Hgb 7.1 L Hct 21.7 L MCV MCH 26 L RDW 31.2 H Plt Count 92 L Lymph % (Auto) [place] % (Auto) Lymph # (Auto) Seg Neutrophils % Seg Neuts % (Manual) 97.0 H Lymphocytes % (Manual) 0 L Nucleated RBC % 1.0 H Seg Neutrophils # Seg Neutrophils # Man 12.8 H Lymphocytes # (Manual) 0.0 L PT 18.0 H INR 1.46 H D-Dimer Heparin Anti-Xa Level ABG pH POC ABG pCO2 POC ABG pO2 ABG Hemoglobin ABG Chloride ABG Glucose Sodium 151 H Potassium Chloride 126.7 H Carbon Dioxide 14 L BUN 72 H Creatinine 2.1 H Glucose POC Glucose Lactic Acid Calcium 8.1 L Magnesium Iron TIBC Ferritin AST Alkaline Phosphatase Lactate Dehydrogenase C-Reactive Protein NT-Pro-B Natriuret Pep Total Protein Albumin PTH Intact Arterial Blood Glucose Arterial Blood Ionized Calcium Urine Creatinine Urine Total Protein Coronavirus (PCR) Crossmatch 09/11/20 09/11/20 09/11/20 13:40 17:50 19:24 WBC RBC Hgb Hct MCV MCH RDW Plt Count Lymph % (Auto) [place] % (Auto) Lymph # (Auto) Seg Neutrophils % Seg Neuts % (Manual) Lymphocytes % (Manual) Nucleated RBC % Seg Neutrophils # Seg Neutrophils # Man Lymphocytes # (Manual) PT INR D-Dimer Heparin Anti-Xa Level ABG pH POC ABG pCO2 POC ABG pO2 ABG Hemoglobin ABG Chloride ABG Glucose Sodium Potassium Chloride Carbon Dioxide BUN Creatinine Glucose POC Glucose 67 L 52 L 193 H Lactic Acid Calcium Magnesium Iron TIBC Ferritin AST Alkaline Phosphatase Lactate Dehydrogenase C-Reactive Protein NT-Pro-B Natriuret Pep Total Protein Albumin PTH Intact Arterial Blood Glucose Arterial Blood Ionized Calcium Urine Creatinine Urine Total Protein Coronavirus (PCR) Crossmatch 09/11/20 09/12/20 09/12/20 21:24 06:16 06:16 WBC RBC Hgb Hct MCV MCH RDW Plt Count Lymph % (Auto) [place] % (Auto) Lymph # (Auto) Seg Neutrophils % Seg Neuts % (Manual) Lymphocytes % (Manual) Nucleated RBC % Seg Neutrophils # Seg Neutrophils # Man Lymphocytes # (Manual) PT 16.7 H INR 1.34 H D-Dimer Heparin Anti-Xa Level ABG pH POC ABG pCO2 POC ABG pO2 ABG Hemoglobin ABG Chloride ABG Glucose Sodium 149 H Potassium Chloride 124.7 H Carbon Dioxide 15 L BUN 67 H Creatinine 2.0 H Glucose 134 H POC Glucose 184 H Lactic Acid Calcium 8.1 L Magnesium Iron TIBC Ferritin AST Alkaline Phosphatase Lactate Dehydrogenase C-Reactive Protein NT-Pro-B Natriuret Pep Total Protein Albumin PTH Intact Arterial Blood Glucose Arterial Blood Ionized Calcium Urine Creatinine Urine Total Protein Coronavirus (PCR) Crossmatch 09/12/20 09/12/20 09/12/20 06:16 08:06 11:11 WBC 17.4 H RBC 2.55 L Hgb 6.7 L Hct 22.3 L MCV MCH 26 L RDW 31.8 H Plt Count 104 L Lymph % (Auto) [place] % (Auto) Lymph # (Auto) Seg Neutrophils % Seg Neuts % (Manual) 94.0 H Lymphocytes % (Manual) 1.0 L Nucleated RBC % 2.0 H Seg Neutrophils # Seg Neutrophils # Man 16.4 H Lymphocytes # (Manual) 0.2 L PT INR D-Dimer Heparin Anti-Xa Level ABG pH POC ABG pCO2 POC ABG pO2 ABG Hemoglobin ABG Chloride ABG Glucose Sodium Potassium Chloride Carbon Dioxide BUN Creatinine Glucose POC Glucose 127 H 128 H Lactic Acid Calcium Magnesium Iron TIBC Ferritin AST Alkaline Phosphatase Lactate Dehydrogenase C-Reactive Protein NT-Pro-B Natriuret Pep Total Protein Albumin PTH Intact Arterial Blood Glucose Arterial Blood Ionized Calcium Urine Creatinine Urine Total Protein Coronavirus (PCR) Crossmatch 09/12/20 09/13/20 09/13/20 16:30 00:02 07:26 WBC RBC Hgb Hct MCV MCH RDW Plt Count Lymph % (Auto) [place] % (Auto) Lymph # (Auto) Seg Neutrophils % Seg Neuts % (Manual) Lymphocytes % (Manual) Nucleated RBC % Seg Neutrophils # Seg Neutrophils # Man Lymphocytes # (Manual) PT 19.5 H INR 1.63 H D-Dimer Heparin Anti-Xa Level ABG pH POC ABG pCO2 POC ABG pO2 ABG Hemoglobin ABG Chloride ABG Glucose Sodium Potassium Chloride Carbon Dioxide BUN Creatinine Glucose POC Glucose 145 H 247 H Lactic Acid Calcium Magnesium Iron TIBC Ferritin AST Alkaline Phosphatase Lactate Dehydrogenase C-Reactive Protein NT-Pro-B Natriuret Pep Total Protein Albumin PTH Intact Arterial Blood Glucose Arterial Blood Ionized Calcium Urine Creatinine Urine Total Protein Coronavirus (PCR) Crossmatch 09/13/20 09/13/20 09/13/20 07:26 09:56 10:07 WBC 15.3 H RBC 2.62 L Hgb 7.1 L Hct 22.6 L MCV MCH 27 L RDW 28.7 H Plt Count 89 L Lymph % (Auto) [place] % (Auto) Lymph # (Auto) Seg Neutrophils % Seg Neuts % (Manual) Lymphocytes % (Manual) Nucleated RBC % Seg Neutrophils # Seg Neutrophils # Man Lymphocytes # (Manual) PT INR D-Dimer Heparin Anti-Xa Level ABG pH POC ABG pCO2 POC ABG pO2 ABG Hemoglobin ABG Chloride ABG Glucose Sodium 146 H Potassium Chloride 121.3 H Carbon Dioxide 13 L BUN 67 H Creatinine 1.8 H Glucose 194 H POC Glucose 233 H Lactic Acid Calcium 8.2 L Magnesium 1.40 L Iron TIBC Ferritin AST Alkaline Phosphatase Lactate Dehydrogenase C-Reactive Protein NT-Pro-B Natriuret Pep Total Protein Albumin PTH Intact Arterial Blood Glucose Arterial Blood Ionized Calcium Urine Creatinine Urine Total Protein Coronavirus (PCR) Crossmatch 09/13/20 09/13/20 09/14/20 13:37 17:17 00:42 WBC RBC Hgb Hct MCV MCH RDW Plt Count Lymph % (Auto) [place] % (Auto) Lymph # (Auto) Seg Neutrophils % Seg Neuts % (Manual) Lymphocytes % (Manual) Nucleated RBC % Seg Neutrophils # Seg Neutrophils # Man Lymphocytes # (Manual) PT INR D-Dimer Heparin Anti-Xa Level ABG pH POC ABG pCO2 POC ABG pO2 ABG Hemoglobin ABG Chloride ABG Glucose Sodium Potassium Chloride Carbon Dioxide BUN Creatinine Glucose POC Glucose 181 H 148 H 200 H Lactic Acid Calcium Magnesium Iron TIBC Ferritin AST Alkaline Phosphatase Lactate Dehydrogenase C-Reactive Protein NT-Pro-B Natriuret Pep Total Protein Albumin PTH Intact Arterial Blood Glucose Arterial Blood Ionized Calcium Urine Creatinine Urine Total Protein Coronavirus (PCR) Crossmatch 09/14/20 09/14/20 09/14/20 10:08 14:54 19:57 WBC RBC Hgb Hct MCV MCH RDW Plt Count Lymph % (Auto) [place] % (Auto) Lymph # (Auto) Seg Neutrophils % Seg Neuts % (Manual) Lymphocytes % (Manual) Nucleated RBC % Seg Neutrophils # Seg Neutrophils # Man Lymphocytes # (Manual) PT 19.4 H INR 1.62 H D-Dimer Heparin Anti-Xa Level ABG pH POC ABG pCO2 POC ABG pO2 ABG Hemoglobin ABG Chloride ABG Glucose Sodium Potassium Chloride Carbon Dioxide BUN Creatinine Glucose POC Glucose 204 H 138 H Lactic Acid Calcium Magnesium Iron TIBC Ferritin AST Alkaline Phosphatase Lactate Dehydrogenase C-Reactive Protein NT-Pro-B Natriuret Pep Total Protein Albumin PTH Intact Arterial Blood Glucose Arterial Blood Ionized Calcium Urine Creatinine Urine Total Protein Coronavirus (PCR) Crossmatch 09/14/20 09/14/20 09/15/20 19:57 23:02 08:34 WBC RBC Hgb Hct MCV MCH RDW Plt Count Lymph % (Auto) [place] % (Auto) Lymph # (Auto) Seg Neutrophils % Seg Neuts % (Manual) Lymphocytes % (Manual) Nucleated RBC % Seg Neutrophils # Seg Neutrophils # Man Lymphocytes # (Manual) PT INR D-Dimer Heparin Anti-Xa Level ABG pH POC ABG pCO2 POC ABG pO2 ABG Hemoglobin ABG Chloride ABG Glucose Sodium Potassium Chloride 117.8 H Carbon Dioxide 10 L BUN 26 H Creatinine 1.8 H Glucose 132 H POC Glucose 173 H 151 H Lactic Acid Calcium 8.2 L Magnesium Iron TIBC Ferritin AST Alkaline Phosphatase Lactate Dehydrogenase C-Reactive Protein NT-Pro-B Natriuret Pep Total Protein Albumin PTH Intact Arterial Blood Glucose Arterial Blood Ionized Calcium Urine Creatinine Urine Total Protein Coronavirus (PCR) Crossmatch 09/16/20 09/16/20 09/16/20 09:30 13:17 13:44 WBC RBC Hgb Hct MCV MCH RDW Plt Count Lymph % (Auto) [place] % (Auto) Lymph # (Auto) Seg Neutrophils % Seg Neuts % (Manual) Lymphocytes % (Manual) Nucleated RBC % Seg Neutrophils # Seg Neutrophils # Man Lymphocytes # (Manual) PT INR D-Dimer Heparin Anti-Xa Level ABG pH POC ABG pCO2 POC ABG pO2 ABG Hemoglobin ABG Chloride ABG Glucose Sodium Potassium Chloride 115.8 H Carbon Dioxide 16 L BUN 53 H Creatinine 1.8 H Glucose 148 H POC Glucose 114 H 130 H Lactic Acid Calcium 8.0 L Magnesium Iron TIBC Ferritin AST Alkaline Phosphatase Lactate Dehydrogenase C-Reactive Protein NT-Pro-B Natriuret Pep Total Protein Albumin PTH Intact Arterial Blood Glucose Arterial Blood Ionized Calcium Urine Creatinine Urine Total Protein Coronavirus (PCR) Crossmatch 09/16/20 09/16/20 09/16/20 13:44 16:49 22:46 WBC RBC 2.67 L Hgb 7.3 L Hct 22.0 L MCV MCH 27 L RDW 29.3 H Plt Count 65 L Lymph % (Auto) [place] % (Auto) Lymph # (Auto) Seg Neutrophils % Seg Neuts % (Manual) Lymphocytes % (Manual) Nucleated RBC % Seg Neutrophils # Seg Neutrophils # Man Lymphocytes # (Manual) PT INR D-Dimer Heparin Anti-Xa Level ABG pH POC ABG pCO2 POC ABG pO2 ABG Hemoglobin ABG Chloride ABG Glucose Sodium Potassium Chloride Carbon Dioxide BUN Creatinine Glucose POC Glucose 171 H 157 H Lactic Acid Calcium Magnesium Iron TIBC Ferritin AST Alkaline Phosphatase Lactate Dehydrogenase C-Reactive Protein NT-Pro-B Natriuret Pep Total Protein Albumin PTH Intact Arterial Blood Glucose Arterial Blood Ionized Calcium Urine Creatinine Urine Total Protein Coronavirus (PCR) Crossmatch 09/17/20 09/17/20 09/17/20 03:15 11:42 11:46 WBC RBC Hgb Hct MCV MCH RDW Plt Count Lymph % (Auto) [place] % (Auto) Lymph # (Auto) Seg Neutrophils % Seg Neuts % (Manual) Lymphocytes % (Manual) Nucleated RBC % Seg Neutrophils # Seg Neutrophils # Man Lymphocytes # (Manual) PT INR D-Dimer Heparin Anti-Xa Level ABG pH 7.172 L POC ABG pCO2 POC ABG pO2 456.0 H ABG Hemoglobin 6.8 L ABG Chloride 119.0 H ABG Glucose 143 H Sodium 147 H Potassium Chloride 120.9 H Carbon Dioxide 15 L BUN 54 H Creatinine 1.7 H Glucose 125 H POC Glucose 116 H Lactic Acid Calcium 7.8 L Magnesium Iron TIBC Ferritin AST Alkaline Phosphatase Lactate Dehydrogenase C-Reactive Protein NT-Pro-B Natriuret Pep Total Protein Albumin PTH Intact Arterial Blood Glucose 143 H Arterial Blood Ionized Calcium Urine Creatinine Urine Total Protein Coronavirus (PCR) Crossmatch 09/17/20 09/17/20 09/17/20 13:49 13:49 13:49 WBC 21.0 H RBC 2.53 L Hgb 6.9 L Hct 21.1 L MCV MCH 27 L RDW 29.1 H Plt Count 73 L Lymph % (Auto) [place] % (Auto) Lymph # (Auto) Seg Neutrophils % Seg Neuts % (Manual) Lymphocytes % (Manual) Nucleated RBC % Seg Neutrophils # Seg Neutrophils # Man Lymphocytes # (Manual) PT INR D-Dimer Heparin Anti-Xa Level ABG pH POC ABG pCO2 POC ABG pO2 ABG Hemoglobin ABG Chloride ABG Glucose Sodium 148 H Potassium Chloride 117.9 H Carbon Dioxide 16 L BUN 59 H Creatinine 1.9 H Glucose 126 H POC Glucose Lactic Acid Calcium 7.6 L Magnesium Iron TIBC Ferritin AST Alkaline Phosphatase Lactate Dehydrogenase C-Reactive Protein NT-Pro-B Natriuret Pep Total Protein Albumin PTH Intact Arterial Blood Glucose Arterial Blood Ionized Calcium Urine Creatinine Urine Total Protein Coronavirus (PCR) Crossmatch See Detail 09/17/20 09/17/20 09/17/20 17:42 21:06 22:19 WBC RBC Hgb 7.4 L Hct 23.3 L MCV MCH RDW Plt Count Lymph % (Auto) [place] % (Auto) Lymph # (Auto) Seg Neutrophils % Seg Neuts % (Manual) Lymphocytes % (Manual) Nucleated RBC % Seg Neutrophils # Seg Neutrophils # Man Lymphocytes # (Manual) PT INR D-Dimer Heparin Anti-Xa Level ABG pH POC ABG pCO2 POC ABG pO2 ABG Hemoglobin ABG Chloride ABG Glucose Sodium Potassium Chloride Carbon Dioxide BUN Creatinine Glucose POC Glucose 127 H 138 H Lactic Acid Calcium Magnesium Iron TIBC Ferritin AST Alkaline Phosphatase Lactate Dehydrogenase C-Reactive Protein NT-Pro-B Natriuret Pep Total Protein Albumin PTH Intact Arterial Blood Glucose Arterial Blood Ionized Calcium Urine Creatinine Urine Total Protein Coronavirus (PCR) Crossmatch 09/17/20 09/18/20 09/18/20 Unknown 04:00 04:14 WBC RBC Hgb Hct MCV MCH RDW Plt Count Lymph % (Auto) [place] % (Auto) Lymph # (Auto) Seg Neutrophils % Seg Neuts % (Manual) Lymphocytes % (Manual) Nucleated RBC % Seg Neutrophils # Seg Neutrophils # Man Lymphocytes # (Manual) PT INR D-Dimer Heparin Anti-Xa Level ABG pH POC ABG pCO2 27.5 L POC ABG pO2 143.4 H ABG Hemoglobin 7.7 L ABG Chloride 120.0 H ABG Glucose 169 H Sodium 149 H Potassium Chloride 118.6 H Carbon Dioxide 18 L BUN 65 H Creatinine 1.9 H Glucose 164 H POC Glucose Lactic Acid Calcium 7.6 L Magnesium Iron TIBC Ferritin AST Alkaline Phosphatase Lactate Dehydrogenase C-Reactive Protein NT-Pro-B Natriuret Pep Total Protein Albumin PTH Intact Arterial Blood Glucose 169 H Arterial Blood Ionized Calcium 4.4 L Urine Creatinine Urine Total Protein Coronavirus (PCR) Positive A Crossmatch 09/18/20 09/18/20 09/18/20 05:02 12:30 12:30 WBC 17.3 H RBC 2.51 L Hgb 6.8 L Hct 20.9 L MCV MCH 27 L RDW 24.1 H Plt Count 62 L Lymph % (Auto) [place] % (Auto) Lymph # (Auto) Seg Neutrophils % Seg Neuts % (Manual) Lymphocytes % (Manual) Nucleated RBC % Seg Neutrophils # Seg Neutrophils # Man Lymphocytes # (Manual) PT 22.3 H INR 1.94 H D-Dimer Heparin Anti-Xa Level ABG pH POC ABG pCO2 POC ABG pO2 ABG Hemoglobin ABG Chloride ABG Glucose Sodium Potassium Chloride Carbon Dioxide BUN Creatinine Glucose POC Glucose 136 H Lactic Acid Calcium Magnesium Iron TIBC Ferritin AST Alkaline Phosphatase Lactate Dehydrogenase C-Reactive Protein NT-Pro-B Natriuret Pep Total Protein Albumin PTH Intact Arterial Blood Glucose Arterial Blood Ionized Calcium Urine Creatinine Urine Total Protein Coronavirus (PCR) Crossmatch 09/18/20 09/18/20 09/19/20 12:35 21:12 04:13 WBC RBC Hgb Hct MCV MCH RDW Plt Count Lymph % (Auto) [place] % (Auto) Lymph # (Auto) Seg Neutrophils % Seg Neuts % (Manual) Lymphocytes % (Manual) Nucleated RBC % Seg Neutrophils # Seg Neutrophils # Man Lymphocytes # (Manual) PT INR D-Dimer Heparin Anti-Xa Level ABG pH POC ABG pCO2 30.0 L POC ABG pO2 161.7 H ABG Hemoglobin 10.9 L ABG Chloride 115.0 H ABG Glucose Sodium Potassium Chloride Carbon Dioxide BUN Creatinine Glucose POC Glucose 121 H 113 H Lactic Acid Calcium Magnesium Iron TIBC Ferritin AST Alkaline Phosphatase Lactate Dehydrogenase C-Reactive Protein NT-Pro-B Natriuret Pep Total Protein Albumin PTH Intact Arterial Blood Glucose Arterial Blood Ionized Calcium Urine Creatinine Urine Total Protein Coronavirus (PCR) Crossmatch 09/19/20 09/19/20 09/19/20 04:29 08:50 08:50 WBC 19.2 H RBC 2.48 L Hgb 6.8 L Hct 21.0 L MCV MCH RDW 22.7 H Plt Count 55 L Lymph % (Auto) [place] % (Auto) Lymph # (Auto) Seg Neutrophils % Seg Neuts % (Manual) Lymphocytes % (Manual) Nucleated RBC % Seg Neutrophils # Seg Neutrophils # Man Lymphocytes # (Manual) PT 22.5 H INR 1.97 H D-Dimer Heparin Anti-Xa Level ABG pH POC ABG pCO2 POC ABG pO2 ABG Hemoglobin ABG Chloride ABG Glucose Sodium 147 H Potassium Chloride 117.5 H Carbon Dioxide 17 L BUN 67 H Creatinine 2.2 H Glucose POC Glucose Lactic Acid Calcium 7.6 L Magnesium Iron TIBC Ferritin AST Alkaline Phosphatase 185 H Lactate Dehydrogenase C-Reactive Protein NT-Pro-B Natriuret Pep Total Protein 4.3 L Albumin 2.1 L PTH Intact Arterial Blood Glucose Arterial Blood Ionized Calcium Urine Creatinine Urine Total Protein Coronavirus (PCR) Crossmatch 09/19/20 09/19/20 09/20/20 17:01 21:16 04:35 WBC RBC Hgb Hct MCV MCH RDW Plt Count Lymph % (Auto) [place] % (Auto) Lymph # (Auto) Seg Neutrophils % Seg Neuts % (Manual) Lymphocytes % (Manual) Nucleated RBC % Seg Neutrophils # Seg Neutrophils # Man Lymphocytes # (Manual) PT INR D-Dimer Heparin Anti-Xa Level ABG pH POC ABG pCO2 28.5 L POC ABG pO2 ABG Hemoglobin 10.6 L ABG Chloride 111.0 H ABG Glucose 154 H Sodium Potassium Chloride Carbon Dioxide BUN Creatinine Glucose POC Glucose 110 H 118 H Lactic Acid Calcium Magnesium Iron TIBC Ferritin AST Alkaline Phosphatase Lactate Dehydrogenase C-Reactive Protein NT-Pro-B Natriuret Pep Total Protein Albumin PTH Intact Arterial Blood Glucose 154 H Arterial Blood Ionized Calcium Urine Creatinine Urine Total Protein Coronavirus (PCR) Crossmatch 09/20/20 09/20/20 09/20/20 06:27 08:15 08:15 WBC 17.2 H RBC 3.30 L Hgb 9.2 L Hct 28.0 L D MCV MCH RDW 17.8 H Plt Count 59 L Lymph % (Auto) [place] % (Auto) Lymph # (Auto) Seg Neutrophils % Seg Neuts % (Manual) Lymphocytes % (Manual) Nucleated RBC % Seg Neutrophils # Seg Neutrophils # Man Lymphocytes # (Manual) PT INR D-Dimer Heparin Anti-Xa Level ABG pH POC ABG pCO2 POC ABG pO2 ABG Hemoglobin ABG Chloride ABG Glucose Sodium Potassium Chloride 111.2 H Carbon Dioxide BUN 62 H Creatinine 2.2 H Glucose 165 H POC Glucose 138 H Lactic Acid Calcium 7.9 L Magnesium Iron TIBC Ferritin AST Alkaline Phosphatase Lactate Dehydrogenase C-Reactive Protein NT-Pro-B Natriuret Pep Total Protein Albumin PTH Intact Arterial Blood Glucose Arterial Blood Ionized Calcium Urine Creatinine Urine Total Protein Coronavirus (PCR) Crossmatch
--- NOTE | 2020-09-20 12:40 | Progress Note ---
Assessment and Plan 1. Acute kidney injury: DIRK secondary to combination of Vasomotor nephropathy and severe sepsis. Renal US negative for hydro. Monitor renal function. Creatinine level is same as yesterday. Prior Creatinine was 1.2 in 2014. Likely CKD stage 4. Renal prognosis is guarded. Avoid nephrotoxic agents. Meds dosage based on GFR. 2. FEN: Hyperchloremic Metabolic acidosis, on Potassium and IV Sodium bicarbonate, monitor. Hypernatremia, hypotonic IV fluids, monitor. Monitor lytes. 3. Nephrotic syndrome: Likely diabetic nephropathy. DEMARCUS, ANCA, complements, GBM Ab and SPEP re-ordered. 4. Severe sepsis, POA, now with shock: Off pressors. 5. S/p Cardiac arrest. 6. Severe COVID infection: Seen by ID. 7. Acute hypoxic resp failure: Intubated post-arrest. On vent. 8. Bilateral LE DVT, POA. 9. Microcytic anemia, POA: S/p PRBC. Monitor. Seen by GI. 10. Thrombocytopenia, POA. 11. Acute diarrhea: Likely associated with COVID-19 infection. C. difficile test negative. Subjective: Patient was seen and examined at the bedside. Examination: General appearance: well-developed, appears stated age, no distress, intubated, on vent HEENT: JAYCE Neck: supple Respiratory: MV sounds heard Cardiology: regular, S1S2, no murmur Gastrointestinal: normoactive bowel sounds, no tenderness, not distended Integumentary: no obvious rash Neurologic: lethargic, moving extremities Ext: trace dependent edema, b/l BKA Subjective Date of service: 09/20/20 Principal diagnosis: Iron Def Anemia Objective - Vital Signs Vital signs: Vital Signs - 12hr 09/20/20 09/20/20 09/20/20 00:41 00:51 01:01 Temperature Pulse Rate 69 63 95 H Pulse Rate [ From Monitor] Respiratory 25 H 25 H 19 Rate Blood Pressure 106/45 84/42 84/42 O2 Sat by Pulse 100 100 100 Oximetry 09/20/20 09/20/20 09/20/20 01:11 01:21 01:31 Temperature Pulse Rate 101 H 96 H 62 Pulse Rate [ From Monitor] Respiratory 17 17 25 H Rate Blood Pressure 88/41 107/29 89/33 O2 Sat by Pulse 100 100 99 Oximetry 09/20/20 09/20/20 09/20/20 01:41 01:51 02:00 Temperature Pulse Rate 103 H 67 97 H Pulse Rate [ From Monitor] Respiratory 23 25 H 12 Rate Blood Pressure 89/33 132/61 130/71 O2 Sat by Pulse 100 100 99 Oximetry 09/20/20 09/20/20 09/20/20 02:11 02:21 02:30 Temperature Pulse Rate 104 H 65 98 H Pulse Rate [ From Monitor] Respiratory 19 25 H 16 Rate Blood Pressure 130/71 134/69 129/57 O2 Sat by Pulse 100 100 98 Oximetry 09/20/20 09/20/20 09/20/20 02:31 02:41 02:46 Temperature 97.9 F 97.7 F Pulse Rate 100 H Pulse Rate [ From Monitor] Respiratory 19 Rate Blood Pressure 129/57 O2 Sat by Pulse 100 Oximetry 09/20/20 09/20/20 09/20/20 02:51 03:00 03:11 Temperature Pulse Rate 60 98 H 73 Pulse Rate [ From Monitor] Respiratory 25 H 22 25 H Rate Blood Pressure 133/74 132/68 132/68 O2 Sat by Pulse 100 97 100 Oximetry 09/20/20 09/20/20 09/20/20 03:21 03:30 03:41 Temperature Pulse Rate 65 82 91 H Pulse Rate [ From Monitor] Respiratory 25 H 25 H 18 Rate Blood Pressure 139/63 135/65 135/65 O2 Sat by Pulse 100 98 100 Oximetry 09/20/20 09/20/20 09/20/20 03:51 03:54 03:55 Temperature 98.3 F Pulse Rate 83 103 H Pulse Rate [ From Monitor] Respiratory 25 H Rate Blood Pressure 142/74 142/74 O2 Sat by Pulse 100 100 Oximetry 09/20/20 09/20/20 09/20/20 04:00 04:11 04:16 Temperature 97.9 F Pulse Rate 61 105 H Pulse Rate [ 61 From Monitor] Respiratory 25 H 19 Rate Blood Pressure 142/74 151/59 O2 Sat by Pulse 100 100 Oximetry 09/20/20 08:00 Temperature Pulse Rate 93 H Pulse Rate [ From Monitor] Respiratory Rate Blood Pressure 160/74 O2 Sat by Pulse 100 Oximetry - Lab 09/20/20 08:15 09/20/20 08:15 Most recent lab results ABG pH 7.430 (7.320-7.450) 09/20/20 04:35 Calcium 7.9 mg/dL (8.4-10.2) L 09/20/20 08:15 Phosphorus 3.50 mg/dL (2.5-4.5) 09/06/20 06:43 Magnesium 2.20 mg/dL (1.7-2.3) 09/14/20 19:57 Urine Creatinine 43.2 mg/dL (0.1-20.0) H 09/06/20 06:52 Urine Sodium 84 mmol/L 09/06/20 06:52 Urine Total Protein 298 mg/dL (5-11.8) H 09/06/20 06:52 Medications & Allergies - Medications Allergies/Adverse Reactions: Allergies No Known Allergies Allergy (Unverified 02/14/14 19:23) Home Medications: Home Medications Medication Instructions Recorded Confirmed Last Taken Type Aspirin [[place] Aspirin] 81 mg PO DAILY 02/14/14 02/22/14 02/14/14 11:00 History Ferrous Sulfate [Feosol 325mg] 325 mg PO DAILY 02/14/14 02/22/14 02/14/14 11:00 History Sertraline [Zoloft] 50 mg PO DAILY 02/14/14 02/22/14 02/14/14 11:00 History amLODIPine 5 mg PO DAILY 02/14/14 02/22/14 02/14/14 11:00 History hydroCHLOROthiazide 25 mg PO DAILY 02/14/14 02/22/14 02/14/14 11:00 History [Hydrochlorothiazide] Aspirin EC [Ecotrin] 325 mg PO QDAY #60 tablet 09/17/20 Unknown Rx Insulin Glargine [Lantus VIAL] 14 units SUB-Q QHS 30 Days 09/17/20 Unknown Rx Pantoprazole [Protonix TAB] 40 mg PO BIDAC #60 tablet 09/17/20 Unknown Rx calcitrioL [Rocaltrol] 0.5 mcg PO QDAY #30 capsule 09/17/20 Unknown Rx metOLazone [Zaroxolyn] 10 mg PO QDAY #30 tablet 09/17/20 Unknown Rx Active Medications: Generic Name Dose Route Start Last Admin Trade Name Freq PRN Reason Stop Dose Admin Acetaminophen 650 mg 09/02/20 00:30 09/05/20 22:50 Tylenol PO 650 mg Q6H PRN Administration Pain, Mild (1-3) Calcitriol 0.5 mcg 09/05/20 13:00 09/20/20 10:12 Rocaltrol PO 0.5 mcg QDAY JAE Administration Dextrose 50 ml 09/11/20 19:09 D50w (25gm) Syringe IV Q30MIN PRN Hypoglycemia Protocol Ferrous Sulfate 325 mg 09/02/20 10:00 09/20/20 10:12 Feosol PO 325 mg DAILY JAE Administration Haloperidol Lactate 5 mg 09/11/20 19:10 Haldol IM Q6H PRN Agitation Hydralazine HCl 10 mg 09/10/20 22:23 09/14/20 05:46 Apresoline IV 10 mg Q6H PRN Administration Blood Pressure Hydromorphone HCl 0.25 mg 09/02/20 00:30 09/05/20 23:28 Dilaudid IV 0.25 mg Q4H PRN Administration Pain, Moderate (4-6) Norepinephrine 4 mg in 250 mls @ 7.5 mls/hr 09/17/20 11:00 09/18/20 18:51 Levophed Drip 4 Mg/Ns 250 Ml IV 0 mcg/min TITR JAE 0 mls/hr Titration Protocol 2 MCG/MIN Sodium Bicarbonate 75 meq/ 1,075 mls @ 75 mls/hr 09/17/20 15:00 09/20/20 02:39 Dextrose IV 75 mls/hr DIRECT JAE Administration Pantoprazole Sodium 80 mg/ 100 mls @ 10 mls/hr 09/17/20 18:00 09/20/20 02:39 Sodium Chloride IV 09/20/20 17:59 8 mg/hr DIRECT JAE 10 mls/hr Administration 8 MG/HR Insulin Human Lispro 0 unit 09/19/20 12:00 09/20/20 10:12 Humalog SUB-Q Not Given Q6HR JAE Protocol Multivitamins 5 ml 09/18/20 10:00 09/20/20 10:12 Centrum Liq PO 5 ml QDAY JEA Administration Pantoprazole Sodium 40 mg 09/20/20 22:00 Protonix IV BID JAE Potassium Bicarbonate 50 meq 09/10/20 22:00 09/20/20 10:33 Klor-Con PO 50 meq BID JAE Administration Sertraline HCl 50 mg 09/02/20 10:00 09/19/20 10:42 Zoloft PO 50 mg DAILY JAE Administration Sodium Chloride 10 ml 09/02/20 10:00 09/20/20 10:12 Sodium Chloride Flush Syringe 10 Ml IV 10 ml BID JAE Administration Sodium Chloride 10 ml 09/02/20 00:30 Sodium Chloride Flush Syringe 10 Ml IV PRN PRN LINE FLUSH
--- NOTE | 2020-09-20 13:07 | Gastroenterology Progress Note ---
Assessment and Plan Continue PPI No plans for EGD unless overt active GI bleeding, as risks would outweigh benefits given patient's current medical status Okay to start tube feeds - Anemic x several years (per [facility] records); EGD 2014 showed severe esophagitis and mild gastritis; no colonoscopy on file. Regarding anticoagulation, may consider heparin drip with low end goal for anticoagulation as this would allow us to immediately turn off anticoagulation if she starts to develop significant overt bleeding while still allowing anticoagulation to help decrease the risk of the DVT turning into severe pulmonary embolism - Patient Problems (1) DVT (deep venous thrombosis) Current Visit: Yes Status: Acute (2) Iron deficiency anemia due to chronic blood loss Current Visit: Yes Status: Acute Subjective Date of service: 09/20/20 Principal diagnosis: Iron Def Anemia Interval history: Hemoglobin up appropriately 2 g after 2 units of blood. Spoke with nurse no significant overt GI bleeding Patient in room intubated not responding to verbal stimuli Objective - Constitutional Vitals: Temp Pulse Resp BP Pulse Ox 97.9 F 93 H 19 160/74 100 09/20/20 04:16 09/20/20 08:00 09/20/20 04:11 09/20/20 08:00 09/20/20 08:00 General appearance: other (Intubated) - Labs CBC & Chem 7: 09/20/20 08:15 09/20/20 08:15 Labs: Laboratory Results - last 24 hr 09/17/20 09/19/20 09/19/20 13:49 17:01 21:16 WBC RBC Hgb Hct MCV MCH MCHC RDW Plt Count ABG pH POC ABG pCO2 POC ABG pO2 POC ABG HCO3 POC ABG Base Excess ABG Hemoglobin ABG Sodium ABG Potassium ABG Chloride ABG Glucose FiO2 Sodium Potassium Chloride Carbon Dioxide Anion Gap BUN Creatinine Estimated GFR BUN/Creatinine Ratio Glucose POC Glucose 110 H 118 H Calcium Arterial Blood Glucose Arterial Blood Ionized Calcium Blood Type O POSITIVE Antibody Screen Negative Crossmatch See Detail 09/20/20 09/20/20 09/20/20 04:35 06:27 08:15 WBC RBC Hgb Hct MCV MCH MCHC RDW Plt Count ABG pH 7.430 POC ABG pCO2 28.5 L POC ABG pO2 93.6 POC ABG HCO3 18.5 POC ABG Base Excess -4.8 ABG Hemoglobin 10.6 L ABG Sodium 137.9 ABG Potassium 3.8 ABG Chloride 111.0 H ABG Glucose 154 H FiO2 45 Sodium 145 Potassium 3.9 Chloride 111.2 H Carbon Dioxide 22 Anion Gap 16 BUN 62 H Creatinine 2.2 H Estimated GFR 27 BUN/Creatinine Ratio 28 Glucose 165 H POC Glucose 138 H Calcium 7.9 L Arterial Blood Glucose 154 H Arterial Blood Ionized Calcium 4.6 Blood Type Antibody Screen Crossmatch 09/20/20 09/20/20 08:15 11:52 WBC 17.2 H RBC 3.30 L Hgb 9.2 L Hct 28.0 L D MCV 85 MCH 28 MCHC 33 RDW 17.8 H Plt Count 59 L ABG pH POC ABG pCO2 POC ABG pO2 POC ABG HCO3 POC ABG Base Excess ABG Hemoglobin ABG Sodium ABG Potassium ABG Chloride ABG Glucose FiO2 Sodium Potassium Chloride Carbon Dioxide Anion Gap BUN Creatinine Estimated GFR BUN/Creatinine Ratio Glucose POC Glucose 150 H Calcium Arterial Blood Glucose Arterial Blood Ionized Calcium Blood Type Antibody Screen Crossmatch
--- NOTE | 2020-09-20 15:39 | Progress Note ---
Assessment and Plan --S/P Cardiorespiratory arrest on 09/17/20 -- Acute delirium/acute metabolic encephalopathy Etiology unknown, likely initially was metabolic s/p as needed haldol, placed on restraint then worsened following cardiac arrest, CT head showed no acute abnormalities --Sepsis Due to COVID-19 pneumonia Blood culture NTD ID recommendations appreciated --Septic shock, status post pressor following cardiac arrest BP now stable, continue to monitor --COVID-19 pneumonia, POA Coronavirus protocol: Coronavirus PCR is positive, contact precaution, isolation precautions, prone positioning while in bed, Not a candidate for remdesivir due to renal failure Continue dexamethasone s/p convalescent plasma --Acute on chronic anemia Due to chronic GI bleed and iron deficiency Status post transfusion of 3 units PRBC, PPI. Continue to monitor for GI bleed As per GI, does not look like patient is having GI bleed at this time Advance diet as tolerated --Possible GI bleed, chronic Advance diet, GI on board Recommended to manage medically --Acute kidney injury (DIRK) with acute tubular necrosis (ATN) Continue to monitor renal function Nephrology following closely --Hypernatremia Continue isotonic solution Nephrology on board --Bilateral lower extremity DVT, chronic Consulted vascular surgeon for consideration of IVC filter placement. As per vascular surgery, patient is not a good candidate for IVC filter placement INR 2.74. GI recommended to treat with aspirin only --Diabetes Current Visit: Yes Status: Acute Plan to address problem: Sliding-scale insulin therapy, Accu-Chek, hypoglycemia protocol, consistent carbohydrate diet. --h/o tobacco --DVT prophylaxis, Anticoagulation --full code status The high probability of a clinically significant, sudden or life threatening deterioration of the [LANGUAGE THERAPIST, CVS, respiratory, renal, GI] system(s) required my full and direct attention, intervention and personal management. The aggregate critical care time was [34] minutes. This time is in addition to time spent performing reported procedures but includes the following: [x] Data Review and interpretation [x] Patient assessment and monitoring of vital signs [x] Documentation [x] Medication orders and management Brief History; 64 YO Female with HTN, DM, Anemia, PVD, Nicotine Dependence, positive coronavirus test recently at [facility] presented to the emergency room for further evaluation. Patient states that she has experienced subjective fever, generalized weakness, body aches, shortness of breath, nausea, multiple loose stools, lower extremity edema over the past 1 week with progressively worsening symptoms over the past 3 to 4 days prior to presentation. Here, patient found to be hypotensive with a systolic blood pressure ranging from 53-94. Patient was also hypothermic with a body temperature of 93.3 F. Patient met criteria for sepsis protocol and found to have bilateral pneumonia, metabolic acidosis, acute kidney injury. Patient admitted to telemetry due to increased risk of multisystem decompensation. Patient initiated on coronavirus protocol. Coronavirus PCR has been ordered, Patient remained hypotensive in spite of IV fluid resuscitation therapy. Patient subsequently upgraded to IMCU. daily course: 09/03. While in the ER, patient had an ultrasound Doppler performed that showed bilateral DVT involving the iliac veins. Patient was started on heparin drip. ID consulted for COVID-19 and nephrology consulted for DIRK. Patient seen and examined at bedside this morning. She has no complaints this morning. Her hemoglobin dropped to 6.4 this morning. Patient will get transfused 1 unit of PRBCs. Later this p.m., was notified by nurse that patient is having tarry dark stool and hematemesis. Heparin drip discontinued. Patient started on PPI drip and made n.p.o. GI is has been consulted. Patient will need to have an upper endoscopy. She has bilateral lower extremity DVT and will need vascular surgery evaluation to determine if she is a candidate for IVC filter placement. 09/04. Patient seen and examined at bedside this morning. Labs reviewed showed hemoglobin 5.3. Patient will receive 2 units PRBCs. FFP also ordered. GI evaluation pending. Continue PPIs. Vascular surgeon to see to determine if patient is a candidate for IVC filter placement for DVT. 09/05. Hb stable this morning. GI on board. On PPI drip. 09/06. Gastroenterology and vascular surgery recommendations reviewed. Patient not a good candidate for IVC filter placement due to location of the clot/thrombosis. Plan is for patient to have anticoagulation on while monitoring hemoglobin. Patient's INR is more than 2 at this time so we will hold anticoagulation for now and monitor hemoglobin. Plan to initiate anticoagulation when INR is less than 2. We will preferably use heparin products as she has a high chance of bleeding. Continue to monitor hemoglobin. Hb 7.3 this a.m. 09/07. Hemoglobin 8.2 this AM. No clear signs of GI bleed. Her INR is 2.74. No need for initiation of AC for now as she INR is already therapeutic. Plan is to monitor for bleeding and if she remains stable, she will be started on anticoagulation for her bilateral DVT. Vascular surgery following-patient not a candidate for IVC catheter placement. GI recommendations appreciated 09/08: Patient is nonreactive to COVID-19 antibody, per ID order for convalescent plasma. Continue supportive care, follow clinically 09/09: Pending convalescent plasma transfusion, continue to follow inflammatory markers. Monitor H&H. Plan to start on aspirin tomorrow if INR and H&H stable 09/10: hb dropped to 6.8, transfuse one unit, discussed with GI - no plan for endoscopy now, cont to follow clinically 09/11: patient didn't get transfusion yesterday. became very agitated today, ordered as needed haldol, cont iv fluid. monitor clinically 09/12: placed on restrain o/n. cont supportive care, lost IV line - ordered for midline. pending PRBC transfusion 09/13: monitor h/h, patient more clam today, continue supportive care, follow BMP - Na and Cr has been improving 09/14: cont to monitor, follow BMP, follow h/h. oral intake improved per RN 09/15: If h/h stable and Cr cont to improves will d/c in a day or two 09/16; spoke with daughter and updated her with patient's clinical condition. family willing to accept the patient tomorrow. RN reported some Nose bleeding earlier today, but now resolved. repeat h/h stable 09/17: had respiratory/cardiac arrest this am. patient transferred to ICU. updated family. will get CT head, patient now intubated, start on bicarbonate drip 09/18; remains unresponsive, NG tube placed and noted bolld from the NG tube, discussed with GI - recommended PRBC/FFP transfusion. patient remains unresponsive w/o sedation and intubated. Called daughter and updated. 09/19: - Patient had OG tube with initial bloody secretions on insertion but currently with dark greenish output. No active bloody output from the OG tube. Rectal tube with dark greenish bilious output. No clear signs of active on-going GI bleeding. Off levophed. Continue to monitor H&H, transfuse as needed. Patient remains unresponsive without any sedation. Poor prognosis which I discussed with the family 09/20: cont supportive care, wean off vent as tolerated Subjective Date of service: 09/20/20 Principal diagnosis: Iron Def Anemia Objective - Constitutional Vitals: Vital Signs - 12hr 09/20/20 09/20/20 09/20/20 03:41 03:51 03:54 Temperature 98.3 F Pulse Rate 91 H 83 Pulse Rate [ From Monitor] Respiratory 18 25 H Rate Blood Pressure 135/65 142/74 O2 Sat by Pulse 100 100 Oximetry 09/20/20 09/20/20 09/20/20 03:55 04:00 04:11 Temperature Pulse Rate 103 H 61 105 H Pulse Rate [ 61 From Monitor] Respiratory 25 H 19 Rate Blood Pressure 142/74 142/74 151/59 O2 Sat by Pulse 100 100 100 Oximetry 09/20/20 09/20/20 09/20/20 04:16 08:00 11:40 Temperature 97.9 F Pulse Rate 93 H 95 H Pulse Rate [ From Monitor] Respiratory 17 Rate Blood Pressure 160/74 158/69 O2 Sat by Pulse 100 100 Oximetry 09/20/20 15:17 Temperature Pulse Rate 97 H Pulse Rate [ From Monitor] Respiratory 15 Rate Blood Pressure 157/74 O2 Sat by Pulse 100 Oximetry - Labs CBC & Chem 7: 09/20/20 08:15 09/20/20 08:15 Labs: Abnormal lab results 09/17/20 09/19/20 09/19/20 Range/Units 13:49 17:01 21:16 WBC (4.5-11.0) K/mm3 RBC (3.65-5.03) M/mm3 Hgb (10.1-14.3) gm/dl Hct (30.3-42.9) % RDW (13.2-15.2) % Plt Count (140-440) K/mm3 POC ABG pCO2 (32.0-48.0) mmHg ABG Hemoglobin (12.0-17.5) ABG Chloride (98-107) mmol/L ABG Glucose (65-95) mg/dL Chloride (98-107) mmol/L BUN (7-17) mg/dL Creatinine (0.6-1.2) mg/dL Glucose (65-100) mg/dL POC Glucose 110 H 118 H (70-105) mg/dL Calcium (8.4-10.2) mg/dL Arterial Blood Glucose (65-95) mg/dL Crossmatch See Detail 09/20/20 09/20/20 09/20/20 Range/Units 04:35 06:27 08:15 WBC (4.5-11.0) K/mm3 RBC (3.65-5.03) M/mm3 Hgb (10.1-14.3) gm/dl Hct (30.3-42.9) % RDW (13.2-15.2) % Plt Count (140-440) K/mm3 POC ABG pCO2 28.5 L (32.0-48.0) mmHg ABG Hemoglobin 10.6 L (12.0-17.5) ABG Chloride 111.0 H (98-107) mmol/L ABG Glucose 154 H (65-95) mg/dL Chloride 111.2 H (98-107) mmol/L BUN 62 H (7-17) mg/dL Creatinine 2.2 H (0.6-1.2) mg/dL Glucose 165 H (65-100) mg/dL POC Glucose 138 H (70-105) mg/dL Calcium 7.9 L (8.4-10.2) mg/dL Arterial Blood Glucose 154 H (65-95) mg/dL Crossmatch 09/20/20 09/20/20 Range/Units 08:15 11:52 WBC 17.2 H (4.5-11.0) K/mm3 RBC 3.30 L (3.65-5.03) M/mm3 Hgb 9.2 L (10.1-14.3) gm/dl Hct 28.0 L D (30.3-42.9) % RDW 17.8 H (13.2-15.2) % Plt Count 59 L (140-440) K/mm3 POC ABG pCO2 (32.0-48.0) mmHg ABG Hemoglobin (12.0-17.5) ABG Chloride (98-107) mmol/L ABG Glucose (65-95) mg/dL Chloride (98-107) mmol/L BUN (7-17) mg/dL Creatinine (0.6-1.2) mg/dL Glucose (65-100) mg/dL POC Glucose 150 H (70-105) mg/dL Calcium (8.4-10.2) mg/dL Arterial Blood Glucose (65-95) mg/dL Crossmatch
[2020-09-20 17:17] LABS: Myeloperoxidase Antibody <1.0 AI (<1.0)
[2020-09-20] MEDS: SERTRALINE 50 MG TAB PO SCH (18:19)
[2020-09-20] MEDS: PANTOPRAZOLE 40 MG INJ IV SCH ×2 (20:44→22:39)
[2020-09-21] MEDS: INSULIN LISPRO 100 UNIT/ML VIAL 3 mL SUB-Q SCH ×4 (01:03→19:01)
[2020-09-21 06:26] LABS: Hematocrit 27.7 % (30.3-42.9); Hemoglobin 9.2 gm/dl (10.1-14.3); Mean Corpuscular HGB Conc 33 % (30-34); Mean Corpuscular Volume 84 fl (79-97); Platelet Count 65 K/mm3 (140-440); Red Blood Count 3.29 M/mm3 (3.65-5.03); Red Cell Distribution Width 17.8 % (13.2-15.2)
[2020-09-21 06:41] LABS: Calcium 8.2 mg/dL (8.4-10.2)
[2020-09-21 07:16] LABS: Anisocytosis Few; Basophils % (Manual) 0 % (0.0-1.8); Eosinophils % (Manual) 0 % (0.0-4.3); Hypochromasia 1+; Platelet Estimate Consistent w Auto; Schistocytes Few; Target Cells Few; Total Cells Counted 100
[2020-09-21] MEDS ORDERED: SODIUM BICARBONATE 325 MG TAB FEEDTUBE PRN (07:53)
[2020-09-21] MEDS ORDERED: SIMPLE SYRUP 15 ML FEEDTUBE PRN ×2 (07:53)
[2020-09-21] MEDS ORDERED: LIPASE 10,500/PROTEASE 25,000/AMYLASE 43,750 (UNITS) DR CAP FEEDTUBE PRN (07:53)
--- NOTE | 2020-09-21 09:44 | Gastroenterology Progress Note ---
Assessment and Plan Continue PPI No plans for EGD unless overt active GI bleeding, as risks would outweigh benefits given patient's current medical status No contraindication to tube feeds from GI perspective - Anemic x several years (per [facility] records); EGD 2014 showed severe esophagitis and mild gastritis; no colonoscopy on file. Regarding anticoagulation, from GI perspective given elevated risk for being off of blood thinners, may consider heparin drip with low end goal for anticoagulation as this would allow us to immediately turn off anticoagulation if she starts to develop significant overt bleeding while still allowing anticoagulation to help decrease the risk of the DVT turning into severe pulmonary embolism - Patient Problems (1) DVT (deep venous thrombosis) Current Visit: Yes Status: Acute (2) Iron deficiency anemia due to chronic blood loss Current Visit: Yes Status: Acute Subjective Date of service: 09/21/20 Principal diagnosis: Iron Def Anemia Interval history: Hemoglobin stable today Patient intubated Objective - Constitutional Vitals: Temp Pulse Resp BP Pulse Ox 97.7 F 43 L 20 180/82 99 09/21/20 08:00 09/21/20 08:40 09/21/20 05:00 09/21/20 08:40 09/21/20 08:40 General appearance: other (Intubated) - Labs CBC & Chem 7: 09/21/20 06:12 09/21/20 06:12 Labs: Laboratory Results - last 24 hr 09/17/20 09/17/20 09/17/20 00:10 00:10 00:10 WBC RBC Hgb Hct MCV MCH MCHC RDW Plt Count Add Manual Diff Total Counted Seg Neuts % (Manual) Band Neutrophils % Lymphocytes % (Manual) Reactive Lymphs % (Man) Monocytes % (Manual) Eosinophils % (Manual) Basophils % (Manual) Metamyelocytes % Myelocytes % Promyelocytes % Blast Cells % Nucleated RBC % Seg Neutrophils # Man Band Neutrophils # Lymphocytes # (Manual) Abs React Lymphs (Man) Monocytes # (Manual) Eosinophils # (Manual) Basophils # (Manual) Metamyelocytes # Myelocytes # Promyelocytes # Blast Cells # WBC Morphology Hypersegmented Neuts Hyposegmented Neuts Hypogranular Neuts Smudge Cells Toxic Granulation Toxic Vacuolation Dohle Bodies Pelger-Huet Anomaly Ignacia Rods Platelet Estimate Clumped Platelets Plt Clumps, EDTA Large Platelets Giant Platelets Platelet Satelliting Plt Morphology Comment RBC Morphology Dimorphic RBCs Polychromasia Hypochromasia Poikilocytosis Anisocytosis Microcytosis Macrocytosis Spherocytes Pappenheimer Bodies Sickle Cells Target Cells Tear Drop Cells Ovalocytes Helmet Cells [place] Bodies [place]ora Cells Bite Cells Crenated Cell Elliptocytes Acanthocytes (Spur) Rouleaux Hemoglobin C Crystals Schistocytes Malaria parasites [place] Bodies Hem Pathologist Commnt ABG pH POC ABG pCO2 POC ABG pO2 POC ABG HCO3 POC ABG Base Excess ABG Hemoglobin ABG Sodium ABG Potassium ABG Chloride ABG Glucose FiO2 Sodium Potassium Chloride Carbon Dioxide Anion Gap BUN Creatinine Estimated GFR BUN/Creatinine Ratio Glucose POC Glucose Calcium Arterial Blood Glucose Arterial Blood Ionized Calcium Proteinase 3 (PR3) Ab <1.0 Myeloperoxidase Ab <1.0 Complement C3 82 L Complement C4 26 09/20/20 09/20/20 09/20/20 11:52 17:14 21:10 WBC RBC Hgb Hct MCV MCH MCHC RDW Plt Count Add Manual Diff Total Counted Seg Neuts % (Manual) Band Neutrophils % Lymphocytes % (Manual) Reactive Lymphs % (Man) Monocytes % (Manual) Eosinophils % (Manual) Basophils % (Manual) Metamyelocytes % Myelocytes % Promyelocytes % Blast Cells % Nucleated RBC % Seg Neutrophils # Man Band Neutrophils # Lymphocytes # (Manual) Abs React Lymphs (Man) Monocytes # (Manual) Eosinophils # (Manual) Basophils # (Manual) Metamyelocytes # Myelocytes # Promyelocytes # Blast Cells # WBC Morphology Hypersegmented Neuts Hyposegmented Neuts Hypogranular Neuts Smudge Cells Toxic Granulation Toxic Vacuolation Dohle Bodies Pelger-Huet Anomaly Ignacia Rods Platelet Estimate Clumped Platelets Plt Clumps, EDTA Large Platelets Giant Platelets Platelet Satelliting Plt Morphology Comment RBC Morphology Dimorphic RBCs Polychromasia Hypochromasia Poikilocytosis Anisocytosis Microcytosis Macrocytosis Spherocytes Pappenheimer Bodies Sickle Cells Target Cells Tear Drop Cells Ovalocytes Helmet Cells [place] Bodies [place] Cells Bite Cells Crenated Cell Elliptocytes Acanthocytes (Spur) Rouleaux Hemoglobin C Crystals Schistocytes Malaria parasites [place] Bodies Hem Pathologist Commnt ABG pH POC ABG pCO2 POC ABG pO2 POC ABG HCO3 POC ABG Base Excess ABG Hemoglobin ABG Sodium ABG Potassium ABG Chloride ABG Glucose FiO2 Sodium Potassium Chloride Carbon Dioxide Anion Gap BUN Creatinine Estimated GFR BUN/Creatinine Ratio Glucose POC Glucose 150 H 168 H 160 H Calcium Arterial Blood Glucose Arterial Blood Ionized Calcium Proteinase 3 (PR3) Ab Myeloperoxidase Ab Complement C3 Complement C4 09/21/20 09/21/20 09/21/20 01:03 03:25 05:14 WBC RBC Hgb Hct MCV MCH MCHC RDW Plt Count Add Manual Diff Total Counted Seg Neuts % (Manual) Band Neutrophils % Lymphocytes % (Manual) Reactive Lymphs % (Man) Monocytes % (Manual) Eosinophils % (Manual) Basophils % (Manual) Metamyelocytes % Myelocytes % Promyelocytes % Blast Cells % Nucleated RBC % Seg Neutrophils # Man Band Neutrophils # Lymphocytes # (Manual) Abs React Lymphs (Man) Monocytes # (Manual) Eosinophils # (Manual) Basophils # (Manual) Metamyelocytes # Myelocytes # Promyelocytes # Blast Cells # WBC Morphology Hypersegmented Neuts Hyposegmented Neuts Hypogranular Neuts Smudge Cells Toxic Granulation Toxic Vacuolation Dohle Bodies Pelger-Huet Anomaly Ignacia Rods Platelet Estimate Clumped Platelets Plt Clumps, EDTA Large Platelets Giant Platelets Platelet Satelliting Plt Morphology Comment RBC Morphology Dimorphic RBCs Polychromasia Hypochromasia Poikilocytosis Anisocytosis Microcytosis Macrocytosis Spherocytes Pappenheimer Bodies Sickle Cells Target Cells Tear Drop Cells Ovalocytes Helmet Cells [place] Bodies [place] Cells Bite Cells Crenated Cell Elliptocytes Acanthocytes (Spur) Rouleaux Hemoglobin C Crystals Schistocytes Malaria parasites [place] Bodies Hem Pathologist Commnt ABG pH 7.441 POC ABG pCO2 28.2 L POC ABG pO2 112.5 H POC ABG HCO3 18.8 POC ABG Base Excess -4.5 ABG Hemoglobin 9.4 L ABG Sodium 136.3 ABG Potassium 4.4 ABG Chloride 110.0 H ABG Glucose 163 H FiO2 40.0 Sodium Potassium Chloride Carbon Dioxide Anion Gap BUN Creatinine Estimated GFR BUN/Creatinine Ratio Glucose POC Glucose 142 H 129 H Calcium Arterial Blood Glucose 163 H Arterial Blood Ionized Calcium 4.7 Proteinase 3 (PR3) Ab Myeloperoxidase Ab Complement C3 Complement C4 09/21/20 09/21/20 06:12 06:12 WBC 14.9 H RBC 3.29 L Hgb 9.2 L Hct 27.7 L MCV 84 MCH 28 MCHC 33 RDW 17.8 H Plt Count 65 L Add Manual Diff Complete Total Counted 100 Seg Neuts % (Manual) 87.0 H Band Neutrophils % 0 Lymphocytes % (Manual) 5.0 L Reactive Lymphs % (Man) 0 Monocytes % (Manual) 8.0 H Eosinophils % (Manual) 0 Basophils % (Manual) 0 Metamyelocytes % 0 Myelocytes % 0 Promyelocytes % 0 Blast Cells % 0 Nucleated RBC % Not Reportable Seg Neutrophils # Man 13.0 H Band Neutrophils # 0.0 Lymphocytes # (Manual) 0.7 L Abs React Lymphs (Man) 0.0 Monocytes # (Manual) 1.2 H Eosinophils # (Manual) 0.0 Basophils # (Manual) 0.0 Metamyelocytes # 0.0 Myelocytes # 0.0 Promyelocytes # 0.0 Blast Cells # 0.0 WBC Morphology Not Reportable Hypersegmented Neuts Not Reportable Hyposegmented Neuts Not Reportable Hypogranular Neuts Not Reportable Smudge Cells Not Reportable Toxic Granulation Not Reportable Toxic Vacuolation Not Reportable Dohle Bodies Not Reportable Pelger-Huet Anomaly Not Reportable Ignacia Rods Not Reportable Platelet Estimate Consistent w auto Clumped Platelets Not Reportable Plt Clumps, EDTA Not Reportable Large Platelets Not Reportable Giant Platelets Not Reportable Platelet Satelliting Not Reportable Plt Morphology Comment Not Reportable RBC Morphology Not Reportable Dimorphic RBCs Not Reportable Polychromasia Not Reportable Hypochromasia 1+ Poikilocytosis Not Reportable Anisocytosis Few Microcytosis Not Reportable Macrocytosis Not Reportable Spherocytes Not Reportable Pappenheimer Bodies Not Reportable Sickle Cells Not Reportable Target Cells Few Tear Drop Cells Not Reportable Ovalocytes Not Reportable Helmet Cells Not Reportable [place] Bodies Not Reportable [place] Rings Not Reportable Flora Cells Not Reportable Bite Cells Not Reportable Crenated Cell Not Reportable Elliptocytes Not Reportable Acanthocytes (Spur) Not Reportable Rouleaux Not Reportable Hemoglobin C Crystals Not Reportable Schistocytes Few Malaria parasites Not Reportable [place] Bodies Not Reportable Hem Pathologist Commnt No ABG pH POC ABG pCO2 POC ABG pO2 POC ABG HCO3 POC ABG Base Excess ABG Hemoglobin ABG Sodium ABG Potassium ABG Chloride ABG Glucose FiO2 Sodium 143 Potassium 4.7 D Chloride 109.2 H Carbon Dioxide 20 L Anion Gap 19 BUN 62 H Creatinine 2.2 H Estimated GFR 27 BUN/Creatinine Ratio 28 Glucose 156 H POC Glucose Calcium 8.2 L Arterial Blood Glucose Arterial Blood Ionized Calcium Proteinase 3 (PR3) Ab Myeloperoxidase Ab Complement C3 Complement C4
[2020-09-21] MEDS: PANTOPRAZOLE 40 MG INJ IV SCH ×2 (09:50→22:23)
[2020-09-21] MEDS: CALCITRIOL 0.5 MCG CAP PO SCH (09:50)
[2020-09-21] MEDS: SERTRALINE 50 MG TAB PO SCH (09:50)
[2020-09-21] MEDS: MULTIVITAMINS 5 ML ORAL LIQUID PO SCH (09:50)
[2020-09-21] MEDS: amLODIPine 10 MG TAB PO SCH (12:24)
[2020-09-21] MEDS: K-LYTE 25 MEQ TABLET EFF PO SCH ×2 (12:30→22:23)
--- NOTE | 2020-09-21 12:58 | Progress Note ---
Assessment and Plan 64 y/o female with cardiac arrest this am, now intubated, not on sedation with severe metabolic acidosis. 1. Bicarb drip per renal 2. No sedatives. 3. Will attempt extubation today. 4. Still would consider neuro consult, but can wait given minor improvements in mental state 5. Follow up any renal recs 6. Agree with volume 7. Overall prognosis is guarded. Pulseless total time is not definite. Continue supportive measures. CCT 31 minutes. Subjective Date of service: 09/21/20 Principal diagnosis: Iron Def Anemia Interval history: No acute events. Tolerating pressure support today and all day yesterday. Mental status has slightly improved, still not following commands. Objective Vital Signs - 12hr 09/21/20 09/21/20 09/21/20 01:00 02:00 03:00 Temperature Pulse Rate 62 69 89 Pulse Rate [ From Monitor] Respiratory 14 20 17 Rate Blood Pressure 166/72 161/77 172/88 O2 Sat by Pulse 99 100 98 Oximetry 09/21/20 09/21/20 09/21/20 03:19 03:28 04:00 Temperature 97.8 F Pulse Rate 70 65 Pulse Rate [ 84 From Monitor] Respiratory 17 21 Rate Blood Pressure 169/80 O2 Sat by Pulse 100 99 Oximetry 09/21/20 09/21/20 09/21/20 05:00 08:00 08:40 Temperature 97.7 F Pulse Rate 88 43 L Pulse Rate [ 64 From Monitor] Respiratory 20 21 Rate Blood Pressure 164/87 180/82 O2 Sat by Pulse 98 100 99 Oximetry 09/21/20 09/21/20 11:47 12:24 Temperature Pulse Rate 74 Pulse Rate [ 87 From Monitor] Respiratory 12 Rate Blood Pressure 163/107 O2 Sat by Pulse 100 Oximetry Constitutional: comatose ENT: other (orally intubated, not on sedation) Neck: supple Ascultation: Bilateral: clear Percussion: Bilateral: not dull Cardiovascular: regular rate and rhythm Extremities: other (bilateral amputee) CBC and BMP: 09/21/20 06:12 09/21/20 06:12 ABG, PT/INR, D-dimer: ABG ABG pH 7.441 (7.320-7.450) 09/21/20 03:25 POC ABG pCO2 28.2 mmHg (32.0-48.0) L 09/21/20 03:25 POC ABG pO2 112.5 mmHg (83-108) H 09/21/20 03:25 POC ABG HCO3 18.8 09/21/20 03:25 PT/INR, D-dimer PT 22.5 Sec. (12.2-14.9) H 09/19/20 08:50 INR 1.97 (0.87-1.13) H 09/19/20 08:50 D-Dimer 1076.18 ng/mlDDU (0-234) H 09/01/20 21:55 Abnormal lab findings: Abnormal Labs 09/01/20 09/01/20 09/01/20 21:40 21:40 21:55 WBC RBC 3.42 L Hgb 7.9 L Hct 25.6 L MCV 75 L MCH 23 L RDW 35.7 H Plt Count 113 L Lymph % (Auto) [place] % (Auto) Lymph # (Auto) Seg Neutrophils % Seg Neuts % (Manual) 92.0 H Lymphocytes % (Manual) 5.0 L Monocytes % (Manual) Nucleated RBC % Seg Neutrophils # Seg Neutrophils # Man Lymphocytes # (Manual) 0.3 L Monocytes # (Manual) PT INR D-Dimer 1076.18 H Heparin Anti-Xa Level ABG pH POC ABG pCO2 POC ABG pO2 ABG Hemoglobin ABG Chloride ABG Glucose Sodium Potassium 5.1 H Chloride 117.5 H Carbon Dioxide 12 L BUN 51 H Creatinine 2.1 H Glucose POC Glucose Lactic Acid Calcium 7.8 L Magnesium Iron TIBC Ferritin AST 59 H Alkaline Phosphatase 242 H Lactate Dehydrogenase C-Reactive Protein NT-Pro-B Natriuret Pep Total Protein 5.3 L Albumin 2.5 L PTH Intact Arterial Blood Glucose Arterial Blood Ionized Calcium Urine Creatinine Urine Total Protein Complement C3 Coronavirus (PCR) Crossmatch 09/01/20 09/01/20 09/01/20 21:55 21:55 21:55 WBC RBC Hgb Hct MCV MCH RDW Plt Count Lymph % (Auto) [place] % (Auto) Lymph # (Auto) Seg Neutrophils % Seg Neuts % (Manual) Lymphocytes % (Manual) Monocytes % (Manual) Nucleated RBC % Seg Neutrophils # Seg Neutrophils # Man Lymphocytes # (Manual) Monocytes # (Manual) PT INR D-Dimer Heparin Anti-Xa Level ABG pH POC ABG pCO2 POC ABG pO2 ABG Hemoglobin ABG Chloride ABG Glucose Sodium Potassium Chloride Carbon Dioxide BUN Creatinine Glucose POC Glucose Lactic Acid Calcium Magnesium Iron TIBC Ferritin 313.5 H AST Alkaline Phosphatase Lactate Dehydrogenase 435 H C-Reactive Protein 2.30 H NT-Pro-B Natriuret Pep 42682 H Total Protein Albumin PTH Intact Arterial Blood Glucose Arterial Blood Ionized Calcium Urine Creatinine Urine Total Protein Complement C3 Coronavirus (PCR) Crossmatch 09/01/20 09/02/20 09/02/20 23:15 03:12 05:46 WBC RBC Hgb Hct MCV MCH RDW Plt Count Lymph % (Auto) [place] % (Auto) Lymph # (Auto) Seg Neutrophils % Seg Neuts % (Manual) Lymphocytes % (Manual) Monocytes % (Manual) Nucleated RBC % Seg Neutrophils # Seg Neutrophils # Man Lymphocytes # (Manual) Monocytes # (Manual) PT INR D-Dimer Heparin Anti-Xa Level ABG pH POC ABG pCO2 POC ABG pO2 ABG Hemoglobin ABG Chloride ABG Glucose Sodium Potassium Chloride Carbon Dioxide BUN Creatinine Glucose POC Glucose 65 L Lactic Acid 0.60 L Calcium Magnesium Iron TIBC Ferritin AST Alkaline Phosphatase Lactate Dehydrogenase C-Reactive Protein NT-Pro-B Natriuret Pep Total Protein Albumin PTH Intact Arterial Blood Glucose Arterial Blood Ionized Calcium Urine Creatinine Urine Total Protein Complement C3 Coronavirus (PCR) Crossmatch See Detail 09/02/20 09/02/20 09/02/20 06:50 07:35 08:10 WBC RBC Hgb Hct MCV MCH RDW Plt Count Lymph % (Auto) [place] % (Auto) Lymph # (Auto) Seg Neutrophils % Seg Neuts % (Manual) Lymphocytes % (Manual) Monocytes % (Manual) Nucleated RBC % Seg Neutrophils # Seg Neutrophils # Man Lymphocytes # (Manual) Monocytes # (Manual) PT INR D-Dimer Heparin Anti-Xa Level ABG pH POC ABG pCO2 POC ABG pO2 ABG Hemoglobin ABG Chloride ABG Glucose Sodium Potassium Chloride Carbon Dioxide BUN Creatinine Glucose POC Glucose 60 L 116 H Lactic Acid 0.60 L Calcium Magnesium Iron TIBC Ferritin AST Alkaline Phosphatase Lactate Dehydrogenase C-Reactive Protein NT-Pro-B Natriuret Pep Total Protein Albumin PTH Intact Arterial Blood Glucose Arterial Blood Ionized Calcium Urine Creatinine Urine Total Protein Complement C3 Coronavirus (PCR) Crossmatch 09/02/20 09/02/20 09/02/20 08:10 08:10 12:07 WBC RBC 3.34 L Hgb 7.6 L Hct 24.7 L MCV 74 L MCH 23 L RDW 35.8 H Plt Count 110 L Lymph % (Auto) [place] % (Auto) Lymph # (Auto) Seg Neutrophils % Seg Neuts % (Manual) 97.0 H Lymphocytes % (Manual) 2.0 L Monocytes % (Manual) Nucleated RBC % Seg Neutrophils # Seg Neutrophils # Man Lymphocytes # (Manual) 0.1 L Monocytes # (Manual) PT INR D-Dimer Heparin Anti-Xa Level ABG pH POC ABG pCO2 POC ABG pO2 ABG Hemoglobin ABG Chloride ABG Glucose Sodium Potassium 5.2 H Chloride 120.1 H Carbon Dioxide 11 L BUN 51 H Creatinine 2.0 H Glucose POC Glucose 121 H Lactic Acid Calcium 7.4 L Magnesium Iron TIBC Ferritin AST Alkaline Phosphatase Lactate Dehydrogenase C-Reactive Protein NT-Pro-B Natriuret Pep Total Protein Albumin PTH Intact Arterial Blood Glucose Arterial Blood Ionized Calcium Urine Creatinine Urine Total Protein Complement C3 Coronavirus (PCR) Crossmatch 09/02/20 09/02/20 09/03/20 13:52 19:50 00:32 WBC RBC Hgb 7.9 L Hct 27.4 L MCV MCH RDW Plt Count 133 L Lymph % (Auto) [place] % (Auto) Lymph # (Auto) Seg Neutrophils % Seg Neuts % (Manual) Lymphocytes % (Manual) Monocytes % (Manual) Nucleated RBC % Seg Neutrophils # Seg Neutrophils # Man Lymphocytes # (Manual) Monocytes # (Manual) PT INR D-Dimer Heparin Anti-Xa Level 0.78 H ABG pH POC ABG pCO2 POC ABG pO2 ABG Hemoglobin ABG Chloride ABG Glucose Sodium Potassium Chloride Carbon Dioxide BUN Creatinine Glucose POC Glucose 206 H Lactic Acid Calcium Magnesium Iron TIBC Ferritin AST Alkaline Phosphatase Lactate Dehydrogenase C-Reactive Protein NT-Pro-B Natriuret Pep Total Protein Albumin PTH Intact Arterial Blood Glucose Arterial Blood Ionized Calcium Urine Creatinine Urine Total Protein Complement C3 Coronavirus (PCR) Crossmatch 09/03/20 09/03/20 09/03/20 05:17 05:17 05:17 WBC RBC 2.87 L Hgb 6.4 L Hct 21.5 L MCV 75 L MCH 22 L RDW 35.3 H Plt Count Lymph % (Auto) [place] % (Auto) Lymph # (Auto) Seg Neutrophils % Seg Neuts % (Manual) 76.0 H Lymphocytes % (Manual) Monocytes % (Manual) Nucleated RBC % Seg Neutrophils # Seg Neutrophils # Man 7.8 H Lymphocytes # (Manual) Monocytes # (Manual) PT 17.0 H INR 1.35 H D-Dimer Heparin Anti-Xa Level 0.94 H ABG pH POC ABG pCO2 POC ABG pO2 ABG Hemoglobin ABG Chloride ABG Glucose Sodium 147 H Potassium 5.2 H Chloride 123.4 H Carbon Dioxide 11 L BUN 59 H Creatinine 2.0 H Glucose 204 H POC Glucose Lactic Acid Calcium 7.4 L Magnesium Iron TIBC Ferritin AST Alkaline Phosphatase Lactate Dehydrogenase C-Reactive Protein NT-Pro-B Natriuret Pep Total Protein Albumin PTH Intact Arterial Blood Glucose Arterial Blood Ionized Calcium Urine Creatinine Urine Total Protein Complement C3 Coronavirus (PCR) Crossmatch 09/03/20 09/03/20 09/03/20 06:05 08:48 11:43 WBC RBC Hgb Hct MCV MCH RDW Plt Count Lymph % (Auto) [place] % (Auto) Lymph # (Auto) Seg Neutrophils % Seg Neuts % (Manual) Lymphocytes % (Manual) Monocytes % (Manual) Nucleated RBC % Seg Neutrophils # Seg Neutrophils # Man Lymphocytes # (Manual) Monocytes # (Manual) PT INR D-Dimer Heparin Anti-Xa Level ABG pH POC ABG pCO2 POC ABG pO2 ABG Hemoglobin ABG Chloride ABG Glucose Sodium Potassium Chloride Carbon Dioxide BUN Creatinine Glucose POC Glucose 190 H 223 H 242 H Lactic Acid Calcium Magnesium Iron TIBC Ferritin AST Alkaline Phosphatase Lactate Dehydrogenase C-Reactive Protein NT-Pro-B Natriuret Pep Total Protein Albumin PTH Intact Arterial Blood Glucose Arterial Blood Ionized Calcium Urine Creatinine Urine Total Protein Complement C3 Coronavirus (PCR) Crossmatch 09/03/20 09/03/20 09/04/20 16:21 23:37 05:18 WBC RBC 2.26 L Hgb 5.3 L* Hct 17.1 L* MCV 76 L MCH 24 L RDW 33.7 H Plt Count Lymph % (Auto) 8.0 L [place] % (Auto) 7.5 H Lymph # (Auto) 0.7 L Seg Neutrophils % 84.3 H Seg Neuts % (Manual) Lymphocytes % (Manual) Monocytes % (Manual) Nucleated RBC % Seg Neutrophils # Seg Neutrophils # Man Lymphocytes # (Manual) Monocytes # (Manual) PT INR D-Dimer Heparin Anti-Xa Level ABG pH POC ABG pCO2 POC ABG pO2 ABG Hemoglobin ABG Chloride ABG Glucose Sodium Potassium Chloride Carbon Dioxide BUN Creatinine Glucose POC Glucose 280 H 228 H Lactic Acid Calcium Magnesium Iron TIBC Ferritin AST Alkaline Phosphatase Lactate Dehydrogenase C-Reactive Protein NT-Pro-B Natriuret Pep Total Protein Albumin PTH Intact Arterial Blood Glucose Arterial Blood Ionized Calcium Urine Creatinine Urine Total Protein Complement C3 Coronavirus (PCR) Crossmatch 09/04/20 09/04/20 09/04/20 05:18 05:18 05:18 WBC RBC Hgb Hct MCV MCH RDW Plt Count Lymph % (Auto) [place] % (Auto) Lymph # (Auto) Seg Neutrophils % Seg Neuts % (Manual) Lymphocytes % (Manual) Monocytes % (Manual) Nucleated RBC % Seg Neutrophils # Seg Neutrophils # Man Lymphocytes # (Manual) Monocytes # (Manual) PT 19.6 H INR 1.62 H D-Dimer Heparin Anti-Xa Level ABG pH POC ABG pCO2 POC ABG pO2 ABG Hemoglobin ABG Chloride ABG Glucose Sodium 149 H Potassium 5.2 H Chloride 125.6 H Carbon Dioxide 14 L BUN 86 H Creatinine 2.3 H Glucose 232 H POC Glucose Lactic Acid Calcium 7.5 L Magnesium Iron TIBC Ferritin AST Alkaline Phosphatase 144 H Lactate Dehydrogenase C-Reactive Protein NT-Pro-B Natriuret Pep Total Protein 4.1 L D Albumin 1.9 L PTH Intact 820.4 H Arterial Blood Glucose Arterial Blood Ionized Calcium Urine Creatinine Urine Total Protein Complement C3 Coronavirus (PCR) Crossmatch 09/04/20 09/04/20 09/04/20 06:33 09:03 12:08 WBC RBC Hgb Hct MCV MCH RDW Plt Count Lymph % (Auto) [place] % (Auto) Lymph # (Auto) Seg Neutrophils % Seg Neuts % (Manual) Lymphocytes % (Manual) Monocytes % (Manual) Nucleated RBC % Seg Neutrophils # Seg Neutrophils # Man Lymphocytes # (Manual) Monocytes # (Manual) PT INR D-Dimer Heparin Anti-Xa Level ABG pH POC ABG pCO2 POC ABG pO2 ABG Hemoglobin ABG Chloride ABG Glucose Sodium Potassium Chloride Carbon Dioxide BUN Creatinine Glucose POC Glucose 224 H 264 H 247 H Lactic Acid Calcium Magnesium Iron TIBC Ferritin AST Alkaline Phosphatase Lactate Dehydrogenase C-Reactive Protein NT-Pro-B Natriuret Pep Total Protein Albumin PTH Intact Arterial Blood Glucose Arterial Blood Ionized Calcium Urine Creatinine Urine Total Protein Complement C3 Coronavirus (PCR) Crossmatch 09/04/20 09/04/20 09/04/20 15:01 18:58 22:28 WBC RBC Hgb 8.7 L D Hct 27.4 L D MCV MCH RDW Plt Count Lymph % (Auto) [place] % (Auto) Lymph # (Auto) Seg Neutrophils % Seg Neuts % (Manual) Lymphocytes % (Manual) Monocytes % (Manual) Nucleated RBC % Seg Neutrophils # Seg Neutrophils # Man Lymphocytes # (Manual) Monocytes # (Manual) PT INR D-Dimer Heparin Anti-Xa Level ABG pH POC ABG pCO2 POC ABG pO2 ABG Hemoglobin ABG Chloride ABG Glucose Sodium Potassium Chloride Carbon Dioxide BUN Creatinine Glucose POC Glucose 202 H 181 H Lactic Acid Calcium Magnesium Iron TIBC Ferritin AST Alkaline Phosphatase Lactate Dehydrogenase C-Reactive Protein NT-Pro-B Natriuret Pep Total Protein Albumin PTH Intact Arterial Blood Glucose Arterial Blood Ionized Calcium Urine Creatinine Urine Total Protein Complement C3 Coronavirus (PCR) Crossmatch 09/05/20 09/05/20 09/05/20 00:55 07:56 08:28 WBC RBC Hgb 7.8 L Hct 23.8 L MCV MCH RDW Plt Count Lymph % (Auto) [place] % (Auto) Lymph # (Auto) Seg Neutrophils % Seg Neuts % (Manual) Lymphocytes % (Manual) Monocytes % (Manual) Nucleated RBC % Seg Neutrophils # Seg Neutrophils # Man Lymphocytes # (Manual) Monocytes # (Manual) PT 23.2 H INR 2.01 H D-Dimer Heparin Anti-Xa Level ABG pH POC ABG pCO2 POC ABG pO2 ABG Hemoglobin ABG Chloride ABG Glucose Sodium Potassium Chloride Carbon Dioxide BUN Creatinine Glucose POC Glucose 176 H Lactic Acid Calcium Magnesium Iron TIBC Ferritin AST Alkaline Phosphatase Lactate Dehydrogenase C-Reactive Protein NT-Pro-B Natriuret Pep Total Protein Albumin PTH Intact Arterial Blood Glucose Arterial Blood Ionized Calcium Urine Creatinine Urine Total Protein Complement C3 Coronavirus (PCR) Crossmatch 09/05/20 09/05/20 09/05/20 08:28 08:28 12:14 WBC 11.8 H RBC 2.93 L Hgb 7.7 L Hct 23.2 L MCV MCH 26 L RDW 28.4 H Plt Count Lymph % (Auto) 9.2 L [place] % (Auto) Lymph # (Auto) 1.1 L Seg Neutrophils % 85.4 H Seg Neuts % (Manual) Lymphocytes % (Manual) Monocytes % (Manual) Nucleated RBC % Seg Neutrophils # 10.1 H Seg Neutrophils # Man Lymphocytes # (Manual) Monocytes # (Manual) PT INR D-Dimer Heparin Anti-Xa Level ABG pH POC ABG pCO2 POC ABG pO2 ABG Hemoglobin ABG Chloride ABG Glucose Sodium 152 H Potassium Chloride 125.7 H Carbon Dioxide 13 L BUN 86 H Creatinine 2.3 H Glucose 152 H POC Glucose 131 H Lactic Acid Calcium 7.9 L Magnesium Iron TIBC Ferritin AST Alkaline Phosphatase 155 H Lactate Dehydrogenase C-Reactive Protein NT-Pro-B Natriuret Pep Total Protein 4.6 L Albumin 2.5 L PTH Intact Arterial Blood Glucose Arterial Blood Ionized Calcium Urine Creatinine Urine Total Protein Complement C3 Coronavirus (PCR) Crossmatch 09/05/20 09/05/20 09/06/20 18:58 21:22 00:03 WBC RBC Hgb 8.0 L 7.4 L Hct 25.7 L 22.8 L MCV MCH RDW Plt Count Lymph % (Auto) [place] % (Auto) Lymph # (Auto) Seg Neutrophils % Seg Neuts % (Manual) Lymphocytes % (Manual) Monocytes % (Manual) Nucleated RBC % Seg Neutrophils # Seg Neutrophils # Man Lymphocytes # (Manual) Monocytes # (Manual) PT INR D-Dimer Heparin Anti-Xa Level ABG pH POC ABG pCO2 POC ABG pO2 ABG Hemoglobin ABG Chloride ABG Glucose Sodium Potassium Chloride Carbon Dioxide BUN Creatinine Glucose POC Glucose 171 H Lactic Acid Calcium Magnesium Iron TIBC Ferritin AST Alkaline Phosphatase Lactate Dehydrogenase C-Reactive Protein NT-Pro-B Natriuret Pep Total Protein Albumin PTH Intact Arterial Blood Glucose Arterial Blood Ionized Calcium Urine Creatinine Urine Total Protein Complement C3 Coronavirus (PCR) Crossmatch 09/06/20 09/06/20 09/06/20 06:43 06:43 06:43 WBC RBC 2.76 L Hgb 7.3 L Hct 21.9 L MCV MCH 26 L RDW 29.0 H Plt Count Lymph % (Auto) [place] % (Auto) Lymph # (Auto) Seg Neutrophils % Seg Neuts % (Manual) 94.0 H Lymphocytes % (Manual) 2.0 L Monocytes % (Manual) Nucleated RBC % 3.0 H Seg Neutrophils # Seg Neutrophils # Man 8.6 H Lymphocytes # (Manual) 0.2 L Monocytes # (Manual) PT 26.4 H INR 2.37 H D-Dimer Heparin Anti-Xa Level ABG pH POC ABG pCO2 POC ABG pO2 ABG Hemoglobin ABG Chloride ABG Glucose Sodium 151 H Potassium Chloride 125.5 H Carbon Dioxide 12 L BUN 83 H Creatinine 2.3 H Glucose 130 H POC Glucose Lactic Acid Calcium 8.2 L Magnesium Iron TIBC Ferritin AST Alkaline Phosphatase 157 H Lactate Dehydrogenase C-Reactive Protein NT-Pro-B Natriuret Pep Total Protein 4.5 L Albumin 2.4 L PTH Intact Arterial Blood Glucose Arterial Blood Ionized Calcium Urine Creatinine Urine Total Protein Complement C3 Coronavirus (PCR) Crossmatch 09/06/20 09/06/20 09/06/20 06:52 08:31 11:31 WBC RBC Hgb Hct MCV MCH RDW Plt Count Lymph % (Auto) [place] % (Auto) Lymph # (Auto) Seg Neutrophils % Seg Neuts % (Manual) Lymphocytes % (Manual) Monocytes % (Manual) Nucleated RBC % Seg Neutrophils # Seg Neutrophils # Man Lymphocytes # (Manual) Monocytes # (Manual) PT INR D-Dimer Heparin Anti-Xa Level ABG pH POC ABG pCO2 POC ABG pO2 ABG Hemoglobin ABG Chloride ABG Glucose Sodium Potassium Chloride Carbon Dioxide BUN Creatinine Glucose POC Glucose 148 H 171 H Lactic Acid Calcium Magnesium Iron TIBC Ferritin AST Alkaline Phosphatase Lactate Dehydrogenase C-Reactive Protein NT-Pro-B Natriuret Pep Total Protein Albumin PTH Intact Arterial Blood Glucose Arterial Blood Ionized Calcium Urine Creatinine 43.2 H Urine Total Protein 298 H Complement C3 Coronavirus (PCR) Crossmatch 09/06/20 09/06/20 09/06/20 14:59 18:03 21:36 WBC RBC Hgb 7.7 L Hct 24.5 L MCV MCH RDW Plt Count Lymph % (Auto) [place] % (Auto) Lymph # (Auto) Seg Neutrophils % Seg Neuts % (Manual) Lymphocytes % (Manual) Monocytes % (Manual) Nucleated RBC % Seg Neutrophils # Seg Neutrophils # Man Lymphocytes # (Manual) Monocytes # (Manual) PT INR D-Dimer Heparin Anti-Xa Level ABG pH POC ABG pCO2 POC ABG pO2 ABG Hemoglobin ABG Chloride ABG Glucose Sodium Potassium Chloride Carbon Dioxide BUN Creatinine Glucose POC Glucose 135 H 131 H Lactic Acid Calcium Magnesium Iron TIBC Ferritin AST Alkaline Phosphatase Lactate Dehydrogenase C-Reactive Protein NT-Pro-B Natriuret Pep Total Protein Albumin PTH Intact Arterial Blood Glucose Arterial Blood Ionized Calcium Urine Creatinine Urine Total Protein Complement C3 Coronavirus (PCR) Crossmatch 09/07/20 09/07/20 09/07/20 01:27 09:13 09:13 WBC RBC 3.13 L Hgb 7.5 L 8.2 L Hct 23.4 L 25.5 L MCV MCH 26 L RDW 28.6 H Plt Count Lymph % (Auto) [place] % (Auto) Lymph # (Auto) Seg Neutrophils % Seg Neuts % (Manual) 94.0 H Lymphocytes % (Manual) 3.0 L Monocytes % (Manual) Nucleated RBC % 2.0 H Seg Neutrophils # Seg Neutrophils # Man 9.5 H Lymphocytes # (Manual) 0.3 L Monocytes # (Manual) PT 29.6 H INR 2.74 H D-Dimer Heparin Anti-Xa Level ABG pH POC ABG pCO2 POC ABG pO2 ABG Hemoglobin ABG Chloride ABG Glucose Sodium Potassium Chloride Carbon Dioxide BUN Creatinine Glucose POC Glucose Lactic Acid Calcium Magnesium Iron TIBC Ferritin AST Alkaline Phosphatase Lactate Dehydrogenase C-Reactive Protein NT-Pro-B Natriuret Pep Total Protein Albumin PTH Intact Arterial Blood Glucose Arterial Blood Ionized Calcium Urine Creatinine Urine Total Protein Complement C3 Coronavirus (PCR) Crossmatch 09/07/20 09/07/20 09/07/20 09:13 17:15 18:38 WBC RBC Hgb Hct MCV MCH RDW Plt Count Lymph % (Auto) [place] % (Auto) Lymph # (Auto) Seg Neutrophils % Seg Neuts % (Manual) Lymphocytes % (Manual) Monocytes % (Manual) Nucleated RBC % Seg Neutrophils # Seg Neutrophils # Man Lymphocytes # (Manual) Monocytes # (Manual) PT INR D-Dimer Heparin Anti-Xa Level ABG pH POC ABG pCO2 POC ABG pO2 ABG Hemoglobin ABG Chloride ABG Glucose Sodium 152 H Potassium Chloride 129.1 H Carbon Dioxide 13 L BUN 78 H Creatinine 2.4 H Glucose 111 H POC Glucose 59 L 107 H Lactic Acid Calcium Magnesium Iron 28 L TIBC 188 L Ferritin AST Alkaline Phosphatase 191 H Lactate Dehydrogenase C-Reactive Protein NT-Pro-B Natriuret Pep Total Protein 5.0 L Albumin 2.4 L PTH Intact Arterial Blood Glucose Arterial Blood Ionized Calcium Urine Creatinine Urine Total Protein Complement C3 Coronavirus (PCR) Crossmatch 09/07/20 09/08/20 09/08/20 Unknown 05:18 05:18 WBC 12.0 H RBC 2.93 L Hgb 7.6 L Hct 23.7 L MCV MCH 26 L RDW 29.3 H Plt Count 130 L Lymph % (Auto) [place] % (Auto) Lymph # (Auto) Seg Neutrophils % 78.8 H Seg Neuts % (Manual) Lymphocytes % (Manual) Monocytes % (Manual) Nucleated RBC % Seg Neutrophils # 9.5 H Seg Neutrophils # Man Lymphocytes # (Manual) Monocytes # (Manual) PT 34.0 H INR 3.27 H D-Dimer Heparin Anti-Xa Level ABG pH POC ABG pCO2 POC ABG pO2 ABG Hemoglobin ABG Chloride ABG Glucose Sodium Potassium Chloride Carbon Dioxide BUN Creatinine Glucose POC Glucose Lactic Acid Calcium Magnesium Iron TIBC Ferritin AST Alkaline Phosphatase Lactate Dehydrogenase C-Reactive Protein NT-Pro-B Natriuret Pep Total Protein Albumin PTH Intact Arterial Blood Glucose Arterial Blood Ionized Calcium Urine Creatinine Urine Total Protein Complement C3 Coronavirus (PCR) Positive A Crossmatch 09/08/20 09/08/20 09/08/20 05:18 12:21 22:01 WBC RBC Hgb Hct MCV MCH RDW Plt Count Lymph % (Auto) [place] % (Auto) Lymph # (Auto) Seg Neutrophils % Seg Neuts % (Manual) Lymphocytes % (Manual) Monocytes % (Manual) Nucleated RBC % Seg Neutrophils # Seg Neutrophils # Man Lymphocytes # (Manual) Monocytes # (Manual) PT INR D-Dimer Heparin Anti-Xa Level ABG pH POC ABG pCO2 POC ABG pO2 ABG Hemoglobin ABG Chloride ABG Glucose Sodium 148 H Potassium Chloride 127.0 H Carbon Dioxide 12 L BUN 77 H Creatinine 2.3 H Glucose 60 L POC Glucose 110 H 129 H Lactic Acid Calcium Magnesium Iron TIBC Ferritin AST Alkaline Phosphatase 185 H Lactate Dehydrogenase C-Reactive Protein NT-Pro-B Natriuret Pep Total Protein 5.0 L Albumin 2.4 L PTH Intact Arterial Blood Glucose Arterial Blood Ionized Calcium Urine Creatinine Urine Total Protein Complement C3 Coronavirus (PCR) Crossmatch 09/09/20 09/09/20 09/09/20 09:06 09:06 09:06 WBC 11.5 H RBC 2.92 L Hgb 7.5 L Hct 23.9 L MCV MCH 26 L RDW 29.4 H Plt Count 119 L Lymph % (Auto) [place] % (Auto) Lymph # (Auto) Seg Neutrophils % Seg Neuts % (Manual) 98.0 H Lymphocytes % (Manual) 0 L Monocytes % (Manual) Nucleated RBC % Seg Neutrophils # Seg Neutrophils # Man 11.3 H Lymphocytes # (Manual) 0.0 L Monocytes # (Manual) PT 19.3 H INR 1.59 H D-Dimer Heparin Anti-Xa Level ABG pH POC ABG pCO2 POC ABG pO2 ABG Hemoglobin ABG Chloride ABG Glucose Sodium 153 H Potassium Chloride 128.7 H Carbon Dioxide 13 L BUN 70 H Creatinine 2.3 H Glucose 102 H POC Glucose Lactic Acid Calcium Magnesium Iron TIBC Ferritin AST Alkaline Phosphatase 186 H Lactate Dehydrogenase C-Reactive Protein NT-Pro-B Natriuret Pep Total Protein 4.4 L Albumin 2.4 L PTH Intact Arterial Blood Glucose Arterial Blood Ionized Calcium Urine Creatinine Urine Total Protein Complement C3 Coronavirus (PCR) Crossmatch 09/09/20 09/10/20 09/10/20 23:08 05:12 05:12 WBC 12.1 H RBC 2.66 L Hgb 6.8 L Hct 22.0 L MCV MCH 26 L RDW 29.9 H Plt Count 110 L Lymph % (Auto) [place] % (Auto) Lymph # (Auto) Seg Neutrophils % Seg Neuts % (Manual) 97.0 H Lymphocytes % (Manual) 0 L Monocytes % (Manual) Nucleated RBC % Seg Neutrophils # Seg Neutrophils # Man 11.7 H Lymphocytes # (Manual) 0.0 L Monocytes # (Manual) PT INR D-Dimer Heparin Anti-Xa Level ABG pH POC ABG pCO2 POC ABG pO2 ABG Hemoglobin ABG Chloride ABG Glucose Sodium 153 H Potassium Chloride 126.8 H Carbon Dioxide 14 L BUN 69 H Creatinine 2.2 H Glucose 129 H POC Glucose 142 H Lactic Acid Calcium 8.1 L Magnesium Iron TIBC Ferritin AST Alkaline Phosphatase 180 H Lactate Dehydrogenase C-Reactive Protein NT-Pro-B Natriuret Pep Total Protein 4.2 L Albumin 2.3 L PTH Intact Arterial Blood Glucose Arterial Blood Ionized Calcium Urine Creatinine Urine Total Protein Complement C3 Coronavirus (PCR) Crossmatch 09/10/20 09/10/20 09/10/20 05:12 07:59 12:23 WBC RBC Hgb Hct MCV MCH RDW Plt Count Lymph % (Auto) [place] % (Auto) Lymph # (Auto) Seg Neutrophils % Seg Neuts % (Manual) Lymphocytes % (Manual) Monocytes % (Manual) Nucleated RBC % Seg Neutrophils # Seg Neutrophils # Man Lymphocytes # (Manual) Monocytes # (Manual) PT 16.7 H INR 1.32 H D-Dimer Heparin Anti-Xa Level ABG pH POC ABG pCO2 POC ABG pO2 ABG Hemoglobin ABG Chloride ABG Glucose Sodium Potassium Chloride Carbon Dioxide BUN Creatinine Glucose POC Glucose 162 H 148 H Lactic Acid Calcium Magnesium Iron TIBC Ferritin AST Alkaline Phosphatase Lactate Dehydrogenase C-Reactive Protein NT-Pro-B Natriuret Pep Total Protein Albumin PTH Intact Arterial Blood Glucose Arterial Blood Ionized Calcium Urine Creatinine Urine Total Protein Complement C3 Coronavirus (PCR) Crossmatch 09/10/20 09/10/20 09/10/20 13:48 17:04 21:55 WBC RBC Hgb Hct MCV MCH RDW Plt Count Lymph % (Auto) [place] % (Auto) Lymph # (Auto) Seg Neutrophils % Seg Neuts % (Manual) Lymphocytes % (Manual) Monocytes % (Manual) Nucleated RBC % Seg Neutrophils # Seg Neutrophils # Man Lymphocytes # (Manual) Monocytes # (Manual) PT INR D-Dimer Heparin Anti-Xa Level ABG pH POC ABG pCO2 POC ABG pO2 ABG Hemoglobin ABG Chloride ABG Glucose Sodium Potassium Chloride Carbon Dioxide BUN Creatinine Glucose POC Glucose 162 H 155 H Lactic Acid Calcium Magnesium Iron TIBC Ferritin AST Alkaline Phosphatase Lactate Dehydrogenase C-Reactive Protein NT-Pro-B Natriuret Pep Total Protein Albumin PTH Intact Arterial Blood Glucose Arterial Blood Ionized Calcium Urine Creatinine Urine Total Protein Complement C3 Coronavirus (PCR) Crossmatch See Detail 09/11/20 09/11/20 09/11/20 08:25 08:25 08:25 WBC 13.2 H RBC 2.68 L Hgb 7.1 L Hct 21.7 L MCV MCH 26 L RDW 31.2 H Plt Count 92 L Lymph % (Auto) [place] % (Auto) Lymph # (Auto) Seg Neutrophils % Seg Neuts % (Manual) 97.0 H Lymphocytes % (Manual) 0 L Monocytes % (Manual) Nucleated RBC % 1.0 H Seg Neutrophils # Seg Neutrophils # Man 12.8 H Lymphocytes # (Manual) 0.0 L Monocytes # (Manual) PT 18.0 H INR 1.46 H D-Dimer Heparin Anti-Xa Level ABG pH POC ABG pCO2 POC ABG pO2 ABG Hemoglobin ABG Chloride ABG Glucose Sodium 151 H Potassium Chloride 126.7 H Carbon Dioxide 14 L BUN 72 H Creatinine 2.1 H Glucose POC Glucose Lactic Acid Calcium 8.1 L Magnesium Iron TIBC Ferritin AST Alkaline Phosphatase Lactate Dehydrogenase C-Reactive Protein NT-Pro-B Natriuret Pep Total Protein Albumin PTH Intact Arterial Blood Glucose Arterial Blood Ionized Calcium Urine Creatinine Urine Total Protein Complement C3 Coronavirus (PCR) Crossmatch 09/11/20 09/11/20 09/11/20 13:40 17:50 19:24 WBC RBC Hgb Hct MCV MCH RDW Plt Count Lymph % (Auto) [place] % (Auto) Lymph # (Auto) Seg Neutrophils % Seg Neuts % (Manual) Lymphocytes % (Manual) Monocytes % (Manual) Nucleated RBC % Seg Neutrophils # Seg Neutrophils # Man Lymphocytes # (Manual) Monocytes # (Manual) PT INR D-Dimer Heparin Anti-Xa Level ABG pH POC ABG pCO2 POC ABG pO2 ABG Hemoglobin ABG Chloride ABG Glucose Sodium Potassium Chloride Carbon Dioxide BUN Creatinine Glucose POC Glucose 67 L 52 L 193 H Lactic Acid Calcium Magnesium Iron TIBC Ferritin AST Alkaline Phosphatase Lactate Dehydrogenase C-Reactive Protein NT-Pro-B Natriuret Pep Total Protein Albumin PTH Intact Arterial Blood Glucose Arterial Blood Ionized Calcium Urine Creatinine Urine Total Protein Complement C3 Coronavirus (PCR) Crossmatch 09/11/20 09/12/20 09/12/20 21:24 06:16 06:16 WBC RBC Hgb Hct MCV MCH RDW Plt Count Lymph % (Auto) [place] % (Auto) Lymph # (Auto) Seg Neutrophils % Seg Neuts % (Manual) Lymphocytes % (Manual) Monocytes % (Manual) Nucleated RBC % Seg Neutrophils # Seg Neutrophils # Man Lymphocytes # (Manual) Monocytes # (Manual) PT 16.7 H INR 1.34 H D-Dimer Heparin Anti-Xa Level ABG pH POC ABG pCO2 POC ABG pO2 ABG Hemoglobin ABG Chloride ABG Glucose Sodium 149 H Potassium Chloride 124.7 H Carbon Dioxide 15 L BUN 67 H Creatinine 2.0 H Glucose 134 H POC Glucose 184 H Lactic Acid Calcium 8.1 L Magnesium Iron TIBC Ferritin AST Alkaline Phosphatase Lactate Dehydrogenase C-Reactive Protein NT-Pro-B Natriuret Pep Total Protein Albumin PTH Intact Arterial Blood Glucose Arterial Blood Ionized Calcium Urine Creatinine Urine Total Protein Complement C3 Coronavirus (PCR) Crossmatch 09/12/20 09/12/20 09/12/20 06:16 08:06 11:11 WBC 17.4 H RBC 2.55 L Hgb 6.7 L Hct 22.3 L MCV MCH 26 L RDW 31.8 H Plt Count 104 L Lymph % (Auto) [place] % (Auto) Lymph # (Auto) Seg Neutrophils % Seg Neuts % (Manual) 94.0 H Lymphocytes % (Manual) 1.0 L Monocytes % (Manual) Nucleated RBC % 2.0 H Seg Neutrophils # Seg Neutrophils # Man 16.4 H Lymphocytes # (Manual) 0.2 L Monocytes # (Manual) PT INR D-Dimer Heparin Anti-Xa Level ABG pH POC ABG pCO2 POC ABG pO2 ABG Hemoglobin ABG Chloride ABG Glucose Sodium Potassium Chloride Carbon Dioxide BUN Creatinine Glucose POC Glucose 127 H 128 H Lactic Acid Calcium Magnesium Iron TIBC Ferritin AST Alkaline Phosphatase Lactate Dehydrogenase C-Reactive Protein NT-Pro-B Natriuret Pep Total Protein Albumin PTH Intact Arterial Blood Glucose Arterial Blood Ionized Calcium Urine Creatinine Urine Total Protein Complement C3 Coronavirus (PCR) Crossmatch 09/12/20 09/13/20 09/13/20 16:30 00:02 07:26 WBC RBC Hgb Hct MCV MCH RDW Plt Count Lymph % (Auto) [place] % (Auto) Lymph # (Auto) Seg Neutrophils % Seg Neuts % (Manual) Lymphocytes % (Manual) Monocytes % (Manual) Nucleated RBC % Seg Neutrophils # Seg Neutrophils # Man Lymphocytes # (Manual) Monocytes # (Manual) PT 19.5 H INR 1.63 H D-Dimer Heparin Anti-Xa Level ABG pH POC ABG pCO2 POC ABG pO2 ABG Hemoglobin ABG Chloride ABG Glucose Sodium Potassium Chloride Carbon Dioxide BUN Creatinine Glucose POC Glucose 145 H 247 H Lactic Acid Calcium Magnesium Iron TIBC Ferritin AST Alkaline Phosphatase Lactate Dehydrogenase C-Reactive Protein NT-Pro-B Natriuret Pep Total Protein Albumin PTH Intact Arterial Blood Glucose Arterial Blood Ionized Calcium Urine Creatinine Urine Total Protein Complement C3 Coronavirus (PCR) Crossmatch 09/13/20 09/13/20 09/13/20 07:26 09:56 10:07 WBC 15.3 H RBC 2.62 L Hgb 7.1 L Hct 22.6 L MCV MCH 27 L RDW 28.7 H Plt Count 89 L Lymph % (Auto) [place] % (Auto) Lymph # (Auto) Seg Neutrophils % Seg Neuts % (Manual) Lymphocytes % (Manual) Monocytes % (Manual) Nucleated RBC % Seg Neutrophils # Seg Neutrophils # Man Lymphocytes # (Manual) Monocytes # (Manual) PT INR D-Dimer Heparin Anti-Xa Level ABG pH POC ABG pCO2 POC ABG pO2 ABG Hemoglobin ABG Chloride ABG Glucose Sodium 146 H Potassium Chloride 121.3 H Carbon Dioxide 13 L BUN 67 H Creatinine 1.8 H Glucose 194 H POC Glucose 233 H Lactic Acid Calcium 8.2 L Magnesium 1.40 L Iron TIBC Ferritin AST Alkaline Phosphatase Lactate Dehydrogenase C-Reactive Protein NT-Pro-B Natriuret Pep Total Protein Albumin PTH Intact Arterial Blood Glucose Arterial Blood Ionized Calcium Urine Creatinine Urine Total Protein Complement C3 Coronavirus (PCR) Crossmatch 09/13/20 09/13/20 09/14/20 13:37 17:17 00:42 WBC RBC Hgb Hct MCV MCH RDW Plt Count Lymph % (Auto) [place] % (Auto) Lymph # (Auto) Seg Neutrophils % Seg Neuts % (Manual) Lymphocytes % (Manual) Monocytes % (Manual) Nucleated RBC % Seg Neutrophils # Seg Neutrophils # Man Lymphocytes # (Manual) Monocytes # (Manual) PT INR D-Dimer Heparin Anti-Xa Level ABG pH POC ABG pCO2 POC ABG pO2 ABG Hemoglobin ABG Chloride ABG Glucose Sodium Potassium Chloride Carbon Dioxide BUN Creatinine Glucose POC Glucose 181 H 148 H 200 H Lactic Acid Calcium Magnesium Iron TIBC Ferritin AST Alkaline Phosphatase Lactate Dehydrogenase C-Reactive Protein NT-Pro-B Natriuret Pep Total Protein Albumin PTH Intact Arterial Blood Glucose Arterial Blood Ionized Calcium Urine Creatinine Urine Total Protein Complement C3 Coronavirus (PCR) Crossmatch 09/14/20 09/14/20 09/14/20 10:08 14:54 19:57 WBC RBC Hgb Hct MCV MCH RDW Plt Count Lymph % (Auto) [place] % (Auto) Lymph # (Auto) Seg Neutrophils % Seg Neuts % (Manual) Lymphocytes % (Manual) Monocytes % (Manual) Nucleated RBC % Seg Neutrophils # Seg Neutrophils # Man Lymphocytes # (Manual) Monocytes # (Manual) PT 19.4 H INR 1.62 H D-Dimer Heparin Anti-Xa Level ABG pH POC ABG pCO2 POC ABG pO2 ABG Hemoglobin ABG Chloride ABG Glucose Sodium Potassium Chloride Carbon Dioxide BUN Creatinine Glucose POC Glucose 204 H 138 H Lactic Acid Calcium Magnesium Iron TIBC Ferritin AST Alkaline Phosphatase Lactate Dehydrogenase C-Reactive Protein NT-Pro-B Natriuret Pep Total Protein Albumin PTH Intact Arterial Blood Glucose Arterial Blood Ionized Calcium Urine Creatinine Urine Total Protein Complement C3 Coronavirus (PCR) Crossmatch 09/14/20 09/14/20 09/15/20 19:57 23:02 08:34 WBC RBC Hgb Hct MCV MCH RDW Plt Count Lymph % (Auto) [place] % (Auto) Lymph # (Auto) Seg Neutrophils % Seg Neuts % (Manual) Lymphocytes % (Manual) Monocytes % (Manual) Nucleated RBC % Seg Neutrophils # Seg Neutrophils # Man Lymphocytes # (Manual) Monocytes # (Manual) PT INR D-Dimer Heparin Anti-Xa Level ABG pH POC ABG pCO2 POC ABG pO2 ABG Hemoglobin ABG Chloride ABG Glucose Sodium Potassium Chloride 117.8 H Carbon Dioxide 10 L BUN 26 H Creatinine 1.8 H Glucose 132 H POC Glucose 173 H 151 H Lactic Acid Calcium 8.2 L Magnesium Iron TIBC Ferritin AST Alkaline Phosphatase Lactate Dehydrogenase C-Reactive Protein NT-Pro-B Natriuret Pep Total Protein Albumin PTH Intact Arterial Blood Glucose Arterial Blood Ionized Calcium Urine Creatinine Urine Total Protein Complement C3 Coronavirus (PCR) Crossmatch 09/16/20 09/16/20 09/16/20 09:30 13:17 13:44 WBC RBC Hgb Hct MCV MCH RDW Plt Count Lymph % (Auto) [place] % (Auto) Lymph # (Auto) Seg Neutrophils % Seg Neuts % (Manual) Lymphocytes % (Manual) Monocytes % (Manual) Nucleated RBC % Seg Neutrophils # Seg Neutrophils # Man Lymphocytes # (Manual) Monocytes # (Manual) PT INR D-Dimer Heparin Anti-Xa Level ABG pH POC ABG pCO2 POC ABG pO2 ABG Hemoglobin ABG Chloride ABG Glucose Sodium Potassium Chloride 115.8 H Carbon Dioxide 16 L BUN 53 H Creatinine 1.8 H Glucose 148 H POC Glucose 114 H 130 H Lactic Acid Calcium 8.0 L Magnesium Iron TIBC Ferritin AST Alkaline Phosphatase Lactate Dehydrogenase C-Reactive Protein NT-Pro-B Natriuret Pep Total Protein Albumin PTH Intact Arterial Blood Glucose Arterial Blood Ionized Calcium Urine Creatinine Urine Total Protein Complement C3 Coronavirus (PCR) Crossmatch 09/16/20 09/16/20 09/16/20 13:44 16:49 22:46 WBC RBC 2.67 L Hgb 7.3 L Hct 22.0 L MCV MCH 27 L RDW 29.3 H Plt Count 65 L Lymph % (Auto) [place] % (Auto) Lymph # (Auto) Seg Neutrophils % Seg Neuts % (Manual) Lymphocytes % (Manual) Monocytes % (Manual) Nucleated RBC % Seg Neutrophils # Seg Neutrophils # Man Lymphocytes # (Manual) Monocytes # (Manual) PT INR D-Dimer Heparin Anti-Xa Level ABG pH POC ABG pCO2 POC ABG pO2 ABG Hemoglobin ABG Chloride ABG Glucose Sodium Potassium Chloride Carbon Dioxide BUN Creatinine Glucose POC Glucose 171 H 157 H Lactic Acid Calcium Magnesium Iron TIBC Ferritin AST Alkaline Phosphatase Lactate Dehydrogenase C-Reactive Protein NT-Pro-B Natriuret Pep Total Protein Albumin PTH Intact Arterial Blood Glucose Arterial Blood Ionized Calcium Urine Creatinine Urine Total Protein Complement C3 Coronavirus (PCR) Crossmatch 09/17/20 09/17/20 09/17/20 00:10 03:15 11:42 WBC RBC Hgb Hct MCV MCH RDW Plt Count Lymph % (Auto) [place] % (Auto) Lymph # (Auto) Seg Neutrophils % Seg Neuts % (Manual) Lymphocytes % (Manual) Monocytes % (Manual) Nucleated RBC % Seg Neutrophils # Seg Neutrophils # Man Lymphocytes # (Manual) Monocytes # (Manual) PT INR D-Dimer Heparin Anti-Xa Level ABG pH POC ABG pCO2 POC ABG pO2 ABG Hemoglobin ABG Chloride ABG Glucose Sodium 147 H Potassium Chloride 120.9 H Carbon Dioxide 15 L BUN 54 H Creatinine 1.7 H Glucose 125 H POC Glucose 116 H Lactic Acid Calcium 7.8 L Magnesium Iron TIBC Ferritin AST Alkaline Phosphatase Lactate Dehydrogenase C-Reactive Protein NT-Pro-B Natriuret Pep Total Protein Albumin PTH Intact Arterial Blood Glucose Arterial Blood Ionized Calcium Urine Creatinine Urine Total Protein Complement C3 82 L Coronavirus (PCR) Crossmatch 09/17/20 09/17/20 09/17/20 11:46 13:49 13:49 WBC 21.0 H RBC 2.53 L Hgb 6.9 L Hct 21.1 L MCV MCH 27 L RDW 29.1 H Plt Count 73 L Lymph % (Auto) [place] % (Auto) Lymph # (Auto) Seg Neutrophils % Seg Neuts % (Manual) Lymphocytes % (Manual) Monocytes % (Manual) Nucleated RBC % Seg Neutrophils # Seg Neutrophils # Man Lymphocytes # (Manual) Monocytes # (Manual) PT INR D-Dimer Heparin Anti-Xa Level ABG pH 7.172 L POC ABG pCO2 POC ABG pO2 456.0 H ABG Hemoglobin 6.8 L ABG Chloride 119.0 H ABG Glucose 143 H Sodium 148 H Potassium Chloride 117.9 H Carbon Dioxide 16 L BUN 59 H Creatinine 1.9 H Glucose 126 H POC Glucose Lactic Acid Calcium 7.6 L Magnesium Iron TIBC Ferritin AST Alkaline Phosphatase Lactate Dehydrogenase C-Reactive Protein NT-Pro-B Natriuret Pep Total Protein Albumin PTH Intact Arterial Blood Glucose 143 H Arterial Blood Ionized Calcium Urine Creatinine Urine Total Protein Complement C3 Coronavirus (PCR) Crossmatch 09/17/20 09/17/20 09/17/20 13:49 17:42 21:06 WBC RBC Hgb Hct MCV MCH RDW Plt Count Lymph % (Auto) [place] % (Auto) Lymph # (Auto) Seg Neutrophils % Seg Neuts % (Manual) Lymphocytes % (Manual) Monocytes % (Manual) Nucleated RBC % Seg Neutrophils # Seg Neutrophils # Man Lymphocytes # (Manual) Monocytes # (Manual) PT INR D-Dimer Heparin Anti-Xa Level ABG pH POC ABG pCO2 POC ABG pO2 ABG Hemoglobin ABG Chloride ABG Glucose Sodium Potassium Chloride Carbon Dioxide BUN Creatinine Glucose POC Glucose 127 H 138 H Lactic Acid Calcium Magnesium Iron TIBC Ferritin AST Alkaline Phosphatase Lactate Dehydrogenase C-Reactive Protein NT-Pro-B Natriuret Pep Total Protein Albumin PTH Intact Arterial Blood Glucose Arterial Blood Ionized Calcium Urine Creatinine Urine Total Protein Complement C3 Coronavirus (PCR) Crossmatch See Detail 09/17/20 09/17/20 09/18/20 22:19 Unknown 04:00 WBC RBC Hgb 7.4 L Hct 23.3 L MCV MCH RDW Plt Count Lymph % (Auto) [place] % (Auto) Lymph # (Auto) Seg Neutrophils % Seg Neuts % (Manual) Lymphocytes % (Manual) Monocytes % (Manual) Nucleated RBC % Seg Neutrophils # Seg Neutrophils # Man Lymphocytes # (Manual) Monocytes # (Manual) PT INR D-Dimer Heparin Anti-Xa Level ABG pH POC ABG pCO2 POC ABG pO2 ABG Hemoglobin ABG Chloride ABG Glucose Sodium 149 H Potassium Chloride 118.6 H Carbon Dioxide 18 L BUN 65 H Creatinine 1.9 H Glucose 164 H POC Glucose Lactic Acid Calcium 7.6 L Magnesium Iron TIBC Ferritin AST Alkaline Phosphatase Lactate Dehydrogenase C-Reactive Protein NT-Pro-B Natriuret Pep Total Protein Albumin PTH Intact Arterial Blood Glucose Arterial Blood Ionized Calcium Urine Creatinine Urine Total Protein Complement C3 Coronavirus (PCR) Positive A Crossmatch 09/18/20 09/18/20 09/18/20 04:14 05:02 12:30 WBC 17.3 H RBC 2.51 L Hgb 6.8 L Hct 20.9 L MCV MCH 27 L RDW 24.1 H Plt Count 62 L Lymph % (Auto) [place] % (Auto) Lymph # (Auto) Seg Neutrophils % Seg Neuts % (Manual) Lymphocytes % (Manual) Monocytes % (Manual) Nucleated RBC % Seg Neutrophils # Seg Neutrophils # Man Lymphocytes # (Manual) Monocytes # (Manual) PT INR D-Dimer Heparin Anti-Xa Level ABG pH POC ABG pCO2 27.5 L POC ABG pO2 143.4 H ABG Hemoglobin 7.7 L ABG Chloride 120.0 H ABG Glucose 169 H Sodium Potassium Chloride Carbon Dioxide BUN Creatinine Glucose POC Glucose 136 H Lactic Acid Calcium Magnesium Iron TIBC Ferritin AST Alkaline Phosphatase Lactate Dehydrogenase C-Reactive Protein NT-Pro-B Natriuret Pep Total Protein Albumin PTH Intact Arterial Blood Glucose 169 H Arterial Blood Ionized Calcium 4.4 L Urine Creatinine Urine Total Protein Complement C3 Coronavirus (PCR) Crossmatch 09/18/20 09/18/20 09/18/20 12:30 12:35 21:12 WBC RBC Hgb Hct MCV MCH RDW Plt Count Lymph % (Auto) [place] % (Auto) Lymph # (Auto) Seg Neutrophils % Seg Neuts % (Manual) Lymphocytes % (Manual) Monocytes % (Manual) Nucleated RBC % Seg Neutrophils # Seg Neutrophils # Man Lymphocytes # (Manual) Monocytes # (Manual) PT 22.3 H INR 1.94 H D-Dimer Heparin Anti-Xa Level ABG pH POC ABG pCO2 POC ABG pO2 ABG Hemoglobin ABG Chloride ABG Glucose Sodium Potassium Chloride Carbon Dioxide BUN Creatinine Glucose POC Glucose 121 H 113 H Lactic Acid Calcium Magnesium Iron TIBC Ferritin AST Alkaline Phosphatase Lactate Dehydrogenase C-Reactive Protein NT-Pro-B Natriuret Pep Total Protein Albumin PTH Intact Arterial Blood Glucose Arterial Blood Ionized Calcium Urine Creatinine Urine Total Protein Complement C3 Coronavirus (PCR) Crossmatch 09/19/20 09/19/20 09/19/20 04:13 04:29 08:50 WBC 19.2 H RBC 2.48 L Hgb 6.8 L Hct 21.0 L MCV MCH RDW 22.7 H Plt Count 55 L Lymph % (Auto) [place] % (Auto) Lymph # (Auto) Seg Neutrophils % Seg Neuts % (Manual) Lymphocytes % (Manual) Monocytes % (Manual) Nucleated RBC % Seg Neutrophils # Seg Neutrophils # Man Lymphocytes # (Manual) Monocytes # (Manual) PT INR D-Dimer Heparin Anti-Xa Level ABG pH POC ABG pCO2 30.0 L POC ABG pO2 161.7 H ABG Hemoglobin 10.9 L ABG Chloride 115.0 H ABG Glucose Sodium 147 H Potassium Chloride 117.5 H Carbon Dioxide 17 L BUN 67 H Creatinine 2.2 H Glucose POC Glucose Lactic Acid Calcium 7.6 L Magnesium Iron TIBC Ferritin AST Alkaline Phosphatase 185 H Lactate Dehydrogenase C-Reactive Protein NT-Pro-B Natriuret Pep Total Protein 4.3 L Albumin 2.1 L PTH Intact Arterial Blood Glucose Arterial Blood Ionized Calcium Urine Creatinine Urine Total Protein Complement C3 Coronavirus (PCR) Crossmatch 09/19/20 09/19/20 09/19/20 08:50 17:01 21:16 WBC RBC Hgb Hct MCV MCH RDW Plt Count Lymph % (Auto) [place] % (Auto) Lymph # (Auto) Seg Neutrophils % Seg Neuts % (Manual) Lymphocytes % (Manual) Monocytes % (Manual) Nucleated RBC % Seg Neutrophils # Seg Neutrophils # Man Lymphocytes # (Manual) Monocytes # (Manual) PT 22.5 H INR 1.97 H D-Dimer Heparin Anti-Xa Level ABG pH POC ABG pCO2 POC ABG pO2 ABG Hemoglobin ABG Chloride ABG Glucose Sodium Potassium Chloride Carbon Dioxide BUN Creatinine Glucose POC Glucose 110 H 118 H Lactic Acid Calcium Magnesium Iron TIBC Ferritin AST Alkaline Phosphatase Lactate Dehydrogenase C-Reactive Protein NT-Pro-B Natriuret Pep Total Protein Albumin PTH Intact Arterial Blood Glucose Arterial Blood Ionized Calcium Urine Creatinine Urine Total Protein Complement C3 Coronavirus (PCR) Crossmatch 09/20/20 09/20/20 09/20/20 04:35 06:27 08:15 WBC RBC Hgb Hct MCV MCH RDW Plt Count Lymph % (Auto) [place] % (Auto) Lymph # (Auto) Seg Neutrophils % Seg Neuts % (Manual) Lymphocytes % (Manual) Monocytes % (Manual) Nucleated RBC % Seg Neutrophils # Seg Neutrophils # Man Lymphocytes # (Manual) Monocytes # (Manual) PT INR D-Dimer Heparin Anti-Xa Level ABG pH POC ABG pCO2 28.5 L POC ABG pO2 ABG Hemoglobin 10.6 L ABG Chloride 111.0 H ABG Glucose 154 H Sodium Potassium Chloride 111.2 H Carbon Dioxide BUN 62 H Creatinine 2.2 H Glucose 165 H POC Glucose 138 H Lactic Acid Calcium 7.9 L Magnesium Iron TIBC Ferritin AST Alkaline Phosphatase Lactate Dehydrogenase C-Reactive Protein NT-Pro-B Natriuret Pep Total Protein Albumin PTH Intact Arterial Blood Glucose 154 H Arterial Blood Ionized Calcium Urine Creatinine Urine Total Protein Complement C3 Coronavirus (PCR) Crossmatch 09/20/20 09/20/20 09/20/20 08:15 11:52 17:14 WBC 17.2 H RBC 3.30 L Hgb 9.2 L Hct 28.0 L D MCV MCH RDW 17.8 H Plt Count 59 L Lymph % (Auto) [place] % (Auto) Lymph # (Auto) Seg Neutrophils % Seg Neuts % (Manual) Lymphocytes % (Manual) Monocytes % (Manual) Nucleated RBC % Seg Neutrophils # Seg Neutrophils # Man Lymphocytes # (Manual) Monocytes # (Manual) PT INR D-Dimer Heparin Anti-Xa Level ABG pH POC ABG pCO2 POC ABG pO2 ABG Hemoglobin ABG Chloride ABG Glucose Sodium Potassium Chloride Carbon Dioxide BUN Creatinine Glucose POC Glucose 150 H 168 H Lactic Acid Calcium Magnesium Iron TIBC Ferritin AST Alkaline Phosphatase Lactate Dehydrogenase C-Reactive Protein NT-Pro-B Natriuret Pep Total Protein Albumin PTH Intact Arterial Blood Glucose Arterial Blood Ionized Calcium Urine Creatinine Urine Total Protein Complement C3 Coronavirus (PCR) Crossmatch 09/20/20 09/21/20 09/21/20 21:10 01:03 03:25 WBC RBC Hgb Hct MCV MCH RDW Plt Count Lymph % (Auto) [place] % (Auto) Lymph # (Auto) Seg Neutrophils % Seg Neuts % (Manual) Lymphocytes % (Manual) Monocytes % (Manual) Nucleated RBC % Seg Neutrophils # Seg Neutrophils # Man Lymphocytes # (Manual) Monocytes # (Manual) PT INR D-Dimer Heparin Anti-Xa Level ABG pH POC ABG pCO2 28.2 L POC ABG pO2 112.5 H ABG Hemoglobin 9.4 L ABG Chloride 110.0 H ABG Glucose 163 H Sodium Potassium Chloride Carbon Dioxide BUN Creatinine Glucose POC Glucose 160 H 142 H Lactic Acid Calcium Magnesium Iron TIBC Ferritin AST Alkaline Phosphatase Lactate Dehydrogenase C-Reactive Protein NT-Pro-B Natriuret Pep Total Protein Albumin PTH Intact Arterial Blood Glucose 163 H Arterial Blood Ionized Calcium Urine Creatinine Urine Total Protein Complement C3 Coronavirus (PCR) Crossmatch 09/21/20 09/21/20 09/21/20 05:14 06:12 06:12 WBC 14.9 H RBC 3.29 L Hgb 9.2 L Hct 27.7 L MCV MCH RDW 17.8 H Plt Count 65 L Lymph % (Auto) [place] % (Auto) Lymph # (Auto) Seg Neutrophils % Seg Neuts % (Manual) 87.0 H Lymphocytes % (Manual) 5.0 L Monocytes % (Manual) 8.0 H Nucleated RBC % Seg Neutrophils # Seg Neutrophils # Man 13.0 H Lymphocytes # (Manual) 0.7 L Monocytes # (Manual) 1.2 H PT INR D-Dimer Heparin Anti-Xa Level ABG pH POC ABG pCO2 POC ABG pO2 ABG Hemoglobin ABG Chloride ABG Glucose Sodium Potassium Chloride 109.2 H Carbon Dioxide 20 L BUN 62 H Creatinine 2.2 H Glucose 156 H POC Glucose 129 H Lactic Acid Calcium 8.2 L Magnesium Iron TIBC Ferritin AST Alkaline Phosphatase Lactate Dehydrogenase C-Reactive Protein NT-Pro-B Natriuret Pep Total Protein Albumin PTH Intact Arterial Blood Glucose Arterial Blood Ionized Calcium Urine Creatinine Urine Total Protein Complement C3 Coronavirus (PCR) Crossmatch 09/21/20 11:48 WBC RBC Hgb Hct MCV MCH RDW Plt Count Lymph % (Auto) [place] % (Auto) Lymph # (Auto) Seg Neutrophils % Seg Neuts % (Manual) Lymphocytes % (Manual) Monocytes % (Manual) Nucleated RBC % Seg Neutrophils # Seg Neutrophils # Man Lymphocytes # (Manual) Monocytes # (Manual) PT INR D-Dimer Heparin Anti-Xa Level ABG pH POC ABG pCO2 POC ABG pO2 ABG Hemoglobin ABG Chloride ABG Glucose Sodium Potassium Chloride Carbon Dioxide BUN Creatinine Glucose POC Glucose 149 H Lactic Acid Calcium Magnesium Iron TIBC Ferritin AST Alkaline Phosphatase Lactate Dehydrogenase C-Reactive Protein NT-Pro-B Natriuret Pep Total Protein Albumin PTH Intact Arterial Blood Glucose Arterial Blood Ionized Calcium Urine Creatinine Urine Total Protein Complement C3 Coronavirus (PCR) Crossmatch
--- NOTE | 2020-09-21 13:47 | Progress Note ---
Assessment and Plan 1. Acute kidney injury: DIRK secondary to combination of Vasomotor nephropathy and severe sepsis. Renal US negative for hydro. Monitor renal function. Creatinine leveled off. Prior Creatinine was 1.2 in 2014. Likely CKD stage 4. Renal prognosis is guarded. Avoid nephrotoxic agents. Meds dosage based on GFR. 2. FEN: Hyperchloremic Metabolic acidosis, on Potassium and Sodium bicarbonate, monitor. Hypernatremia, improved, monitor. Monitor lytes. 3. Nephrotic syndrome: Likely diabetic nephropathy. DEMARCUS, ANCA, complements, GBM Ab and SPEP re-ordered. 4. Severe sepsis, POA, now with shock: Off pressors. 5. S/p Cardiac arrest. 6. Severe COVID infection: Seen by ID. 7. Acute hypoxic resp failure: Intubated post-arrest. S/p extubated. 8. Bilateral LE DVT, POA. 9. Microcytic anemia, POA: S/p PRBC. Monitor. Seen by GI. 10. Thrombocytopenia, POA. 11. Acute diarrhea: Likely associated with COVID-19 infection. C. difficile test negative. Subjective: Patient was seen and examined at the bedside. Examination: General appearance: well-developed, appears stated age, no distress HEENT: JAYCE Neck: supple Respiratory: ctab Cardiology: regular, S1S2, no murmur Gastrointestinal: normoactive bowel sounds, no tenderness, not distended Integumentary: no obvious rash Neurologic: lethargic, moving extremities Ext: trace dependent edema, b/l BKA Subjective Date of service: 09/21/20 Principal diagnosis: Iron Def Anemia Objective - Vital Signs Vital signs: Vital Signs - 12hr 09/21/20 09/21/20 09/21/20 02:00 03:00 03:19 Temperature 97.8 F Pulse Rate 69 89 Pulse Rate [ From Monitor] Respiratory 20 17 Rate Blood Pressure 161/77 172/88 O2 Sat by Pulse 100 98 Oximetry 09/21/20 09/21/20 09/21/20 03:28 04:00 05:00 Temperature Pulse Rate 70 65 88 Pulse Rate [ 84 From Monitor] Respiratory 17 21 20 Rate Blood Pressure 169/80 164/87 O2 Sat by Pulse 100 99 98 Oximetry 09/21/20 09/21/20 09/21/20 08:00 08:40 11:47 Temperature 97.7 F Pulse Rate 43 L Pulse Rate [ 64 87 From Monitor] Respiratory 21 12 Rate Blood Pressure 180/82 O2 Sat by Pulse 100 99 100 Oximetry 09/21/20 12:24 Temperature Pulse Rate 74 Pulse Rate [ From Monitor] Respiratory Rate Blood Pressure 163/107 O2 Sat by Pulse Oximetry - Lab 09/21/20 06:12 09/21/20 06:12 Most recent lab results ABG pH 7.441 (7.320-7.450) 09/21/20 03:25 Calcium 8.2 mg/dL (8.4-10.2) L 09/21/20 06:12 Phosphorus 3.50 mg/dL (2.5-4.5) 09/06/20 06:43 Magnesium 2.20 mg/dL (1.7-2.3) 09/14/20 19:57 Urine Creatinine 43.2 mg/dL (0.1-20.0) H 09/06/20 06:52 Urine Sodium 84 mmol/L 09/06/20 06:52 Urine Total Protein 298 mg/dL (5-11.8) H 09/06/20 06:52 Medications & Allergies - Medications Allergies/Adverse Reactions: Allergies No Known Allergies Allergy (Unverified 02/14/14 19:23) Home Medications: Home Medications Medication Instructions Recorded Confirmed Last Taken Type Aspirin [[place] Aspirin] 81 mg PO DAILY 02/14/14 02/22/14 02/14/14 11:00 History Ferrous Sulfate [Feosol 325mg] 325 mg PO DAILY 02/14/14 02/22/14 02/14/14 11:00 History Sertraline [Zoloft] 50 mg PO DAILY 02/14/14 02/22/14 02/14/14 11:00 History amLODIPine 5 mg PO DAILY 02/14/14 02/22/14 02/14/14 11:00 History hydroCHLOROthiazide 25 mg PO DAILY 02/14/14 02/22/14 02/14/14 11:00 History [Hydrochlorothiazide] Aspirin EC [Ecotrin] 325 mg PO QDAY #60 tablet 09/17/20 Unknown Rx Insulin Glargine [Lantus VIAL] 14 units SUB-Q QHS 30 Days 09/17/20 Unknown Rx Pantoprazole [Protonix TAB] 40 mg PO BIDAC #60 tablet 09/17/20 Unknown Rx calcitrioL [Rocaltrol] 0.5 mcg PO QDAY #30 capsule 09/17/20 Unknown Rx metOLazone [Zaroxolyn] 10 mg PO QDAY #30 tablet 09/17/20 Unknown Rx Active Medications: Generic Name Dose Route Start Last Admin Trade Name Freq PRN Reason Stop Dose Admin Acetaminophen 650 mg 09/02/20 00:30 09/05/20 22:50 Tylenol PO 650 mg Q6H PRN Administration Pain, Mild (1-3) Amlodipine Besylate 10 mg 09/21/20 12:00 09/21/20 12:24 Amlodipine PO 10 mg DAILY JAE Administration Lipase/Protease/Amylase 1 each 09/21/20 07:[address] 10,500 Unit FEEDTUBE PRN PRN For Clogged Feeding Tube Calcitriol 0.5 mcg 09/05/20 13:00 09/21/20 09:50 Rocaltrol PO 0.5 mcg QDAY JAE Administration Dextrose 50 ml 09/11/20 19:09 D50w (25gm) Syringe IV Q30MIN PRN Hypoglycemia Protocol Ferrous Sulfate 308 mg 09/21/20 10:00 Ferrous Sulfate FEEDTUBE DAILY JAE Haloperidol Lactate 5 mg 09/11/20 19:10 Haldol IM Q6H PRN Agitation Hydralazine HCl 10 mg 09/10/20 22:23 09/14/20 05:46 Apresoline IV 10 mg Q6H PRN Administration Blood Pressure Hydromorphone HCl 0.25 mg 09/02/20 00:30 09/05/20 23:28 Dilaudid IV 0.25 mg Q4H PRN Administration Pain, Moderate (4-6) Norepinephrine 4 mg in 250 mls @ 7.5 mls/hr 09/17/20 11:00 09/18/20 18:51 Levophed Drip 4 Mg/Ns 250 Ml IV 0 mcg/min TITR JAE 0 mls/hr Titration Protocol 2 MCG/MIN Sodium Chloride 1,000 mls @ 75 mls/hr 09/21/20 12:00 Nacl 0.45% 1000 Ml IV DIRECT JAE Insulin Human Lispro 0 unit 09/19/20 12:00 09/21/20 12:30 Humalog SUB-Q Not Given Q6HR [facility] Protocol Lansoprazole 30 mg 09/22/20 10:00 Prevacid Solutab FEEDTUBE BID JAE Multivitamins 5 ml 09/18/20 10:00 09/21/20 09:50 Centrum Liq PO 5 ml QDAY JAE Administration Pantoprazole Sodium 40 mg 09/20/20 22:00 09/21/20 09:50 Protonix IV 09/21/20 23:59 40 mg BID JAE Administration Potassium Bicarbonate 50 meq 09/10/20 22:00 09/21/20 12:30 Klor-Con PO 50 meq BID JAE Administration Sertraline HCl 50 mg 09/02/20 10:00 09/21/20 09:50 Zoloft PO 50 mg DAILY JAE Administration Simple Syrup 15 ml 09/21/20 07:53 Simple Syrup FEEDTUBE PRN PRN Hypoglycemia Simple Syrup 30 ml 09/21/20 07:53 Simple Syrup FEEDTUBE PRN PRN Hypoglycemia Sodium Bicarbonate 325 mg 09/21/20 07:53 Sodium Bicarbonate FEEDTUBE PRN PRN For Clogged Feeding Tube Sodium Bicarbonate 650 mg 09/21/20 22:00 Sodium Bicarbonate PO BID JAE Sodium Chloride 10 ml 09/02/20 10:00 09/21/20 12:30 Sodium Chloride Flush Syringe 10 Ml IV 10 ml BID JAE Administration Sodium Chloride 10 ml 09/02/20 00:30 Sodium Chloride Flush Syringe 10 Ml IV PRN PRN LINE FLUSH
[2020-09-21] MEDS: FERROUS SULFATE 308 MG (62mg Elemental Iron) / 7 ML ELIXIR FEEDTUBE SCH (14:50)
[2020-09-21] MEDS: SODIUM CHLORIDE 0.45% 1000 ML 1,000 ML IV SCH (14:52)
--- NOTE | 2020-09-21 15:57 | Progress Note ---
Assessment and Plan --S/P Cardiorespiratory arrest on 09/17/20 Intubated during ACLS, pulmonary critical care following Consult cardiology, continue to provide supportive care Patient is now off pressor Weaned off ventilator as tolerated - extubated today -- Acute delirium/acute metabolic encephalopathy Etiology unknown, likely initially was metabolic s/p as needed haldol, placed on restraint then worsened following cardiac arrest, CT head showed no acute abnormalities Consider neurology consult after extubation --Sepsis Due to COVID-19 pneumonia Blood culture NTD ID recommendations appreciated --Septic shock, status post pressor following cardiac arrest BP now stable, continue to monitor --COVID-19 pneumonia, POA Coronavirus protocol: Coronavirus PCR is positive, contact precaution, isolation precautions, prone positioning while in bed, Not a candidate for remdesivir due to renal failure Continue dexamethasone s/p convalescent plasma --Acute on chronic anemia Due to chronic GI bleed and iron deficiency Status post transfusion of 3 units PRBC, PPI. Continue to monitor for GI bleed As per GI, does not look like patient is having GI bleed at this time Advance diet as tolerated --Possible GI bleed, chronic Advance diet, GI on board Recommended to manage medically --Acute kidney injury (DIRK) with acute tubular necrosis (ATN) Continue to monitor renal function Nephrology following closely --Hypernatremia Continue isotonic solution Nephrology on board --Bilateral lower extremity DVT, chronic Consulted vascular surgeon for consideration of IVC filter placement. As per vascular surgery, patient is not a good candidate for IVC filter placement INR 2.74. GI recommended to treat with aspirin only --Diabetes Current Visit: Yes Status: Acute Plan to address problem: Sliding-scale insulin therapy, Accu-Chek, hypoglycemia protocol, consistent carbohydrate diet. --h/o tobacco --DVT prophylaxis, Anticoagulation --full code status The high probability of a clinically significant, sudden or life threatening deterioration of the [VEHICLE CHECK IN CLERK, CVS, respiratory, renal, GI] system(s) required my full and direct attention, intervention and personal management. The aggregate critical care time was [34] minutes. This time is in addition to time spent performing reported procedures but includes the following: [x] Data Review and interpretation [x] Patient assessment and monitoring of vital signs [x] Documentation [x] Medication orders and management Brief History; 64 YO Female with HTN, DM, Anemia, PVD, Nicotine Dependence, positive coronavirus test recently at [place] presented to the emergency room for further evaluation. Patient states that she has experienced subjective fever, generalized weakness, body aches, shortness of breath, nausea, multiple loose stools, lower extremity edema over the past 1 week with progressively worsening symptoms over the past 3 to 4 days prior to presentation. Here, patient found to be hypotensive with a systolic blood pressure ranging from 53-94. Patient was also hypothermic with a body temperature of 93.3 F. Patient met criteria for sepsis protocol and found to have bilateral pneumonia, metabolic acidosis, acute kidney injury. Patient admitted to telemetry due to increased risk of multisystem decompensation. Patient initiated on coronavirus protocol. Coronavirus PCR has been ordered, Patient remained hypotensive in spite of IV fluid resuscitation therapy. Patient subsequently upgraded to IMCU. Her repeat COVID-19 test was positive. She was treated with dexamethasone daily for 10 days. Remdesivir could not be given because of worsening renal function. Did receive convalescent plasma. Patient was downgraded to MedSur. Patient did have on and off delirium recovering restrain. But she was clinically improving and was planning for discharge. On 09/17 morning she developed cardiorespiratory arrest following a coffee-ground emesis. Patient was intubated and transferred to ICU, critical care was consulted, placed on pressor support for hypotension. Family updated and wanted to continue aggressive care. s/p extubation today. daily course: 09/03. While in the ER, patient had an ultrasound Doppler performed that showed bilateral DVT involving the iliac veins. Patient was started on heparin drip. ID consulted for COVID-19 and nephrology consulted for DIRK. Patient seen and examined at bedside this morning. She has no complaints this morning. Her hemoglobin dropped to 6.4 this morning. Patient will get transfused 1 unit of PRBCs. Later this p.m., was notified by nurse that patient is having tarry dark stool and hematemesis. Heparin drip discontinued. Patient started on PPI drip and made n.p.o. GI is has been consulted. Patient will need to have an upper endoscopy. She has bilateral lower extremity DVT and will need vascular surgery evaluation to determine if she is a candidate for IVC filter placement. 09/04. Patient seen and examined at bedside this morning. Labs reviewed showed hemoglobin 5.3. Patient will receive 2 units PRBCs. FFP also ordered. GI e valuation pending. Continue PPIs. Vascular surgeon to see to determine if patient is a candidate for IVC filter placement for DVT. 09/05. Hb stable this morning. GI on board. On PPI drip. 09/06. Gastroenterology and vascular surgery recommendations reviewed. Patient not a good candidate for IVC filter placement due to location of the clot/thrombosis. Plan is for patient to have anticoagulation on while monitoring hemoglobin. Patient's INR is more than 2 at this time so we will hold anticoagulation for now and monitor hemoglobin. Plan to initiate anticoagulation when INR is less than 2. We will preferably use heparin products as she has a high chance of bleeding. Continue to monitor hemoglobin. Hb 7.3 this a.m. 09/07. Hemoglobin 8.2 this AM. No clear signs of GI bleed. Her INR is 2.74. No need for initiation of AC for now as she INR is already therapeutic. Plan is to monitor for bleeding and if she remains stable, she will be started on anticoagulation for her bilateral DVT. Vascular surgery following-patient not a candidate for IVC catheter placement. GI recommendations appreciated 09/08: Patient is nonreactive to COVID-19 antibody, per ID order for convalescent plasma. Continue supportive care, follow clinically 09/09: Pending convalescent plasma transfusion, continue to follow inflammatory markers. Monitor H&H. Plan to start on aspirin tomorrow if INR and H&H stable 09/10: hb dropped to 6.8, transfuse one unit, discussed with GI - no plan for endoscopy now, cont to follow clinically 09/11: patient didn't get transfusion yesterday. became very agitated today, ordered as needed haldol, cont iv fluid. monitor clinically 09/12: placed on restrain o/n. cont supportive care, lost IV line - ordered for midline. pending PRBC transfusion 09/13: monitor h/h, patient more clam today, continue supportive care, follow BMP - Na and Cr has been improving 09/14: cont to monitor, follow BMP, follow h/h. oral intake improved per RN 09/15: If h/h stable and Cr cont to improves will d/c in a day or two 09/16; spoke with daughter and updated her with patient's clinical condition. family willing to accept the patient tomorrow. RN reported some Nose bleeding earlier today, but now resolved. repeat h/h stable 09/17: had respiratory/cardiac arrest this am. patient transferred to ICU. updated family. will get CT head, patient now intubated, start on bicarbonate drip 09/18; remains unresponsive, NG tube placed and noted bolld from the NG tube, di scussed with GI - recommended PRBC/FFP transfusion. patient remains unresponsive w/o sedation and intubated. Called daughter and updated. 09/19: - Patient had OG tube with initial bloody secretions on insertion but currently with dark greenish output. No active bloody output from the OG tube. Rectal tube with dark greenish bilious output. No clear signs of active on-going GI bleeding. Off levophed. Continue to monitor H&H, transfuse as needed. Patient remains unresponsive without any sedation. Poor prognosis which I discussed with the family 09/20: cont supportive care, wean off vent as tolerated. Updated family by phone 09/21: s/p extubation today. Continue to assess mental status. Continue supportive care. We will stop the bicarbonate drip and start sodium bicarbonate with feeding tube. We will continue half-normal saline for now and monitor BMP daily, ordered speech eval. Subjective Date of service: 09/21/20 Principal diagnosis: Iron Def Anemia Interval history: Patient seen and examined no obvious active bleeding Discussed with RN at the bedside s/p extubation today Vitals reviewed Objective - Exam Narrative Exam: GENERAL: Awake, HEAD: No signs of head trauma. EYES: Pupils are equal. Extraocular motions intact. MOUTH: Oropharynx is normal. NECK: No adenopathy, no JVD. CHEST: Chest with diminished breath sounds bilaterally. No wheezes, rales, or rhonchi. CARDIAC: Regular rate and rhythm. S1 and S2, without murmurs, gallops, or rubs. ABDOMEN: Soft, non tender and non distended. No rebound or guarding, and no masses palpated. Bowel Sounds normal. MUSCULOSKELETAL: bilateral BKA NEUROLOGIC EXAM: Awake, follow commend PSYCHIATRIC: Stable mood SKIN: No obvious lesions - Constitutional Vitals: Vital Signs - 12hr 09/21/20 09/21/20 09/21/20 04:00 05:00 08:00 Temperature 97.7 F Pulse Rate 65 88 64 Pulse Rate [ 64 From Monitor] Respiratory 21 20 21 Rate Blood Pressure 169/80 164/87 O2 Sat by Pulse 99 98 100 Oximetry 09/21/20 09/21/20 09/21/20 08:40 11:47 12:00 Temperature 97 F L Pulse Rate 43 L 74 Pulse Rate [ 87 From Monitor] Respiratory 12 Rate Blood Pressure 180/82 O2 Sat by Pulse 99 100 Oximetry 09/21/20 12:24 Temperature Pulse Rate 74 Pulse Rate [ From Monitor] Respiratory Rate Blood Pressure 163/107 O2 Sat by Pulse Oximetry - Labs CBC & Chem 7: 09/21/20 06:12 09/21/20 06:12 Labs: Abnormal lab results 09/17/20 09/20/20 09/20/20 Range/Units 00:10 17:14 21:10 WBC (4.5-11.0) K/mm3 RBC (3.65-5.03) M/mm3 Hgb (10.1-14.3) gm/dl Hct (30.3-42.9) % RDW (13.2-15.2) % Plt Count (140-440) K/mm3 Seg Neuts % (Manual) (40.0-70.0) % Lymphocytes % (Manual) (13.4-35.0) % Monocytes % (Manual) (0.0-7.3) % Seg Neutrophils # Man (1.8-7.7) K/mm3 Lymphocytes # (Manual) (1.2-5.4) K/mm3 Monocytes # (Manual) (0.0-0.8) K/mm3 POC ABG pCO2 (32.0-48.0) mmHg POC ABG pO2 (83-108) mmHg ABG Hemoglobin (12.0-17.5) ABG Chloride (98-107) mmol/L ABG Glucose (65-95) mg/dL Chloride (98-107) mmol/L Carbon Dioxide (22-30) mmol/L BUN (7-17) mg/dL Creatinine (0.6-1.2) mg/dL Glucose (65-100) mg/dL POC Glucose 168 H 160 H (70-105) mg/dL Calcium (8.4-10.2) mg/dL Arterial Blood Glucose (65-95) mg/dL Complement C3 82 L (83-193) mg/dL 09/21/20 09/21/20 09/21/20 Range/Units 01:03 03:25 05:14 WBC (4.5-11.0) K/mm3 RBC (3.65-5.03) M/mm3 Hgb (10.1-14.3) gm/dl Hct (30.3-42.9) % RDW (13.2-15.2) % Plt Count (140-440) K/mm3 Seg Neuts % (Manual) (40.0-70.0) % Lymphocytes % (Manual) (13.4-35.0) % Monocytes % (Manual) (0.0-7.3) % Seg Neutrophils # Man (1.8-7.7) K/mm3 Lymphocytes # (Manual) (1.2-5.4) K/mm3 Monocytes # (Manual) (0.0-0.8) K/mm3 POC ABG pCO2 28.2 L (32.0-48.0) mmHg POC ABG pO2 112.5 H (83-108) mmHg ABG Hemoglobin 9.4 L (12.0-17.5) ABG Chloride 110.0 H (98-107) mmol/L ABG Glucose 163 H (65-95) mg/dL Chloride (98-107) mmol/L Carbon Dioxide (22-30) mmol/L BUN (7-17) mg/dL Creatinine (0.6-1.2) mg/dL Glucose (65-100) mg/dL POC Glucose 142 H 129 H (70-105) mg/dL Calcium (8.4-10.2) mg/dL Arterial Blood Glucose 163 H (65-95) mg/dL Complement C3 (83-193) mg/dL 09/21/20 09/21/20 09/21/20 Range/Units 06:12 06:12 11:48 WBC 14.9 H (4.5-11.0) K/mm3 RBC 3.29 L (3.65-5.03) M/mm3 Hgb 9.2 L (10.1-14.3) gm/dl Hct 27.7 L (30.3-42.9) % RDW 17.8 H (13.2-15.2) % Plt Count 65 L (140-440) K/mm3 Seg Neuts % (Manual) 87.0 H (40.0-70.0) % Lymphocytes % (Manual) 5.0 L (13.4-35.0) % Monocytes % (Manual) 8.0 H (0.0-7.3) % Seg Neutrophils # Man 13.0 H (1.8-7.7) K/mm3 Lymphocytes # (Manual) 0.7 L (1.2-5.4) K/mm3 Monocytes # (Manual) 1.2 H (0.0-0.8) K/mm3 POC ABG pCO2 (32.0-48.0) mmHg POC ABG pO2 (83-108) mmHg ABG Hemoglobin (12.0-17.5) ABG Chloride (98-107) mmol/L ABG Glucose (65-95) mg/dL Chloride 109.2 H (98-107) mmol/L Carbon Dioxide 20 L (22-30) mmol/L BUN 62 H (7-17) mg/dL Creatinine 2.2 H (0.6-1.2) mg/dL Glucose 156 H (65-100) mg/dL POC Glucose 149 H (70-105) mg/dL Calcium 8.2 L (8.4-10.2) mg/dL Arterial Blood Glucose (65-95) mg/dL Complement C3 (83-193) mg/dL
--- NOTE | 2020-09-21 16:16 | XRay Report ---
ABDOMEN 1 VIEW(S) INDICATION: feeding tube placement COMPARISON: None available. FINDINGS: No definite feeding tube is identified within the stomach. Central venous line has tip in the superio r vena cava. Several radiopaque wires and tubes overlying the right chest, recommend repositioning of the tube and repeat examination with tubes and wires outside the area of imaging Bowel gas pattern: Within normal limits. No dilated loops of large or small bowel. Free air: None. Calcified gallstones: None seen. Calcified urinary tract calculi: None seen. Additional Findings: None. Skeletal structures: No acute abnormality. IMPRESSION: 1. No acute findings. Signer Name: Joe Sharp MD Signed: 09/21/2020 4:12 PM Workstation Name: [id number]
--- NOTE | 2020-09-21 21:59 | XRay Report ---
ABDOMEN 1 VIEW INDICATION / CLINICAL INFORMATION: tube feeding placement. COMPARISON: None available. FINDINGS: TUBES / LINES: Esophagogastric tube is within the right mainstem bronchus and terminates within the r ight lower lung. BOWEL GAS PATTERN: No significant abnormality. FREE AIR / EXTRALUMINAL GAS: None seen. ADDITIONAL FINDINGS: No significant additional findings. IMPRESSION: 1. Esophagogastric tube is within the right mainstem bronchus and terminates within the right lower l danny. Recommend withdrawal and repositioning. CRITICAL RESULT: NG tube in right mainstem bronchus Time of Discovery (PM HEAD COOK/CDT): 8:50 PM Time of Communication (PM HEAD COOK/CDT): A 50 4:00 PM Licensed Practitioner Receiving Report: Patient's nurse in the CCU Read Back Performed: Yes. Signer Name: Heriberto Arroyo MD Signed: 09/21/2020 9:55 PM Workstation Name: [id number]
[2020-09-21] MEDS: SODIUM BICARBONATE 650 MG TAB PO SCH (22:23)
[2020-09-22 00:31] LABS: ANA Screen, IFA Negative (Negative)
[2020-09-22] MEDS: INSULIN LISPRO 100 UNIT/ML VIAL 3 mL SUB-Q SCH ×5 (02:40→23:28)
[2020-09-22] MEDS: SODIUM CHLORIDE 0.45% 1000 ML 1,000 ML IV SCH ×2 (06:31→18:07)
--- NOTE | 2020-09-22 07:47 | Progress Note ---
Assessment and Plan Assessment and plan: --S/P Cardiorespiratory arrest on 09/17/20 Intubated on vent, pulmonary critical, cardiology following Patient was weaned and extubated yesterday Today patient is alert and awake on nasal cannula oxygen -- Acute delirium/acute metabolic encephalopathy Etiology unknown, likely initially was metabolic Significantly improved, neuro, psych consult as needed --Sepsis ;Due to COVID-19 pneumonia Received complete treatment,Blood culture NTD --Septic shock, status post pressor following cardiac arrest BP now stable, continue to monitor --COVID-19 pneumonia, POA Coronavirus protocol: Coronavirus PCR is positive, contact precaution, isolation precautions, prone positioning while in bed, Not a candidate for remdesivir due to renal failure Continue dexamethasone, s/p convalescent plasma --Acute on chronic anemia Due to chronic GI bleed and iron deficiency Status post transfusion of 3 units PRBC, PPI. Continue to monitor for GI bleed As per GI, does not look like patient is having GI bleed at this time Advance diet as tolerated --Possible GI bleed, chronic Advance diet, GI on board Recommended to manage medically --Acute kidney injury (DIRK) with acute tubular necrosis (ATN) Continue to monitor renal function Nephrology following closely --Hypernatremia Continue isotonic solution Nephrology on board --Bilateral lower extremity DVT, chronic Consulted vascular surgeon for consideration of IVC filter placement. As per vascular surgery, patient is not a good candidate for IVC filter pl acement INR 2.74. GI recommended to treat with aspirin only --Diabetes type II Accu-Chek sliding scale coverage ADA diet Insulin as needed --Ongoing tobacco use; Smoking cessation counseling Nicotine patch as needed --DVT prophylaxis, Anticoagulation --full code status Bedside swallow eval versus speech therapy swallow eval Patient is stable to be transferred out of ICU to medical floor. Physical therapy occupational therapy The high probability of a clinically significant, sudden or life threatening deterioration of the [PAYROLL DIRECTOR, CVS, respiratory, renal, GI] system(s) required my full and direct attention, intervention and personal management. The aggregate critical care time was [35] minutes. This time is in addition to time spent performing reported procedures but includes the following: [x] Data Review and interpretation [x] Patient assessment and monitoring of vital signs [x] Documentation [x] Medication orders and management Plan of care reviewed with the patient and her nurse Brief History; 64 YO Female with HTN, DM, Anemia, PVD, Nicotine Dependence, positive coronavirus test recently at [facility] presented to the emergency room for fur ther evaluation. Patient states that she has experienced subjective fever, generalized weakness, body aches, shortness of breath, nausea, multiple loose stools, lower extremity edema over the past 1 week with progressively worsening symptoms over the past 3 to 4 days prior to presentation. Here, patient found to be hypotensive with a systolic blood pressure ranging from 53-94. Patient was also hypothermic with a body temperature of 93.3 F. Patient met criteria for sepsis protocol and found to have bilateral pneumonia, metabolic acidosis, acute kidney injury. Patient admitted to telemetry due to increased risk of multisystem decompensation. Patient initiated on coronavirus protocol. Coronavirus PCR has been ordered, Patient remained hypotensive in spite of IV fluid resuscitation therapy. Patient subsequently upgraded to IMCU. Her repeat COVID-19 test was positive. She was treated with dexamethasone daily for 10 days. Remdesivir could not be given because of worsening renal fu nction. Did receive convalescent plasma. Patient was downgraded to MedSurg. Patient did have on and off delirium recovering restrain. But she was clinically improving and was planning for discharge. On 09/17 morning she developed cardiorespiratory arrest following a coffee-ground emesis. Patient was intubated and transferred to ICU, critical care was consulted, placed on pressor support for hypotension. Family updated and wanted to continue aggressive care. s/p extubation today. daily course: 09/03. While in the ER, patient had an ultrasound Doppler performed that showed bilateral DVT involving the iliac veins. Patient was started on heparin drip. ID consulted for COVID-19 and nephrology consulted for DIRK. Patient seen and examined at bedside this morning. She has no complaints this morning. Her hemoglobin dropped to 6.4 this morning. Patient will get transfused 1 unit of PRBCs. Later this p.m., was notified by nurse that patient is having tarry dark stool and hematemesis. Heparin drip discontinued. Patient started on PPI drip and made n.p.o. GI is has been consulted. Patient will need to have an upper endoscopy. She has bilateral lower extremity DVT and will need vascular surgery evaluation to determine if she is a candidate for IVC filter placement. 09/04. Patient seen and examined at bedside this morning. Labs reviewed showed hemoglobin 5.3. Patient will receive 2 units PRBCs. FFP also ordered. GI evaluation pending. Continue PPIs. Vascular surgeon to see to determine if patient is a candidate for IVC filter placement for DVT. 09/05. Hb stable this morning. GI on board. On PPI drip. 09/06. Gastroenterology and vascular surgery recommendations reviewed. Patient not a good candidate for IVC filter placement due to location of the clot/thrombosis. Plan is for patient to have anticoagulation on while monitoring hemoglobin. Patient's INR is more than 2 at this time so we will hold anticoagulation for now and monitor hemoglobin. Plan to initiate anticoagulation when INR is less than 2. We will preferably use heparin products as she has a high chance of bleeding. Continue to monitor hemoglobin. Hb 7.3 this a.m. 09/07. Hemoglobin 8.2 this AM. No clear signs of GI bleed. Her INR is 2.74. No need for initiation of AC for now as she INR is already therapeutic. Plan is to monitor for bleeding and if she remains stable, she will be started on anticoagulation for her bilateral DVT. Vascular surgery following-patient not a candidate for IVC catheter placement. GI recommendations appreciated 09/08: Patient is nonreactive to COVID-19 antibody, per ID order for convalescent plasma. Continue supportive care, follow clinically 09/09: Pending convalescent plasma transfusion, continue to follow inflammatory markers. Monitor H&H. Plan to start on aspirin tomorrow if INR and H&H stable 09/10: hb dropped to 6.8, transfuse one unit, discussed with GI - no plan for endoscopy now, cont to follow clinically 09/11: patient didn't get transfusion yesterday. became very agitated today, ordered as needed haldol, cont iv fluid. monitor clinically 09/12: placed on restrain o/n. cont supportive care, lost IV line - ordered for midline. pending PRBC transfusion 09/13: monitor h/h, patient more clam today, continue supportive care, follow BMP - Na and Cr has been improving 09/14: cont to monitor, follow BMP, follow h/h. oral intake improved per RN 09/15: If h/h stable and Cr cont to improves will d/c in a day or two 09/16; spoke with daughter and updated her with patient's clinical condition. family willing to accept the patient tomorrow. RN reported some Nose bleeding earlier today, but now resolved. repeat h/h stable 09/17: had respiratory/cardiac arrest this am. patient transferred to ICU. updated family. will get CT head, patient now intubated, start on bicarbonate drip 09/18; remains unresponsive, NG tube placed and noted bolld from the NG tube, discussed with GI - recommended PRBC/FFP transfusion. patient remains unresponsive w/o sedation and intubated. Called daughter and updated. 09/19: - Patient had OG tube with initial bloody secretions on insertion but currently with dark greenish output. No active bloody output from the OG tube. Rectal tube with dark greenish bilious output. No clear signs of active on-going GI bleeding. Off levophed. Continue to monitor H&H, transfuse as needed. Patient remains unresponsive without any sedation. Poor prognosis which I discussed with the family 09/20: cont supportive care, wean off vent as tolerated. Updated family by phone 09/21: s/p extubation today. Continue to assess mental status. Continue supportive care. We will stop the bicarbonate drip and start sodium bicarbonate with feeding tube. We will continue half-normal saline for now and monitor BMP daily, ordered speech eval. 09/22; patient was extubated yesterday, today doing well on nasal cannula oxygen, will request for swallow eval, and ordered diet as tolerated Will downgrade her to medical floor, she is still agitated will renew her restra ints. Closely monitor DC planning per case management History Interval history: I have seen and examined the patient at the bedside this morning Patient's chart and medications reviewed Isolation precautions and PPE protocol strictly followed Patient was extubated yesterday, on 3 L nasal cannula oxygen Patient is alert and awake not in acute distress Vital signs reviewed Hospitalist Physical - Constitutional Vitals: Temp Pulse Resp BP Pulse Ox 98.4 F 100 H 18 163/107 96 09/22/20 03:47 09/22/20 04:00 09/22/20 04:00 09/21/20 12:24 09/22/20 04:00 General appearance: Present: no acute distress, well-nourished - EENT Eyes: Present: PERRL, EOM intact - Neck Neck: Present: supple, normal ROM - Respiratory Respiratory effort: normal Respiratory: bilateral: diminished, rhonchi, negative: rales, wheezing - Cardiovascular Rhythm: regular Heart Sounds: Present: S1 & S2 - Extremities Extremities: no ischemia, No edema - Abdominal General gastrointestinal: soft, non-tender, non-distended, normal bowel sounds - Integumentary Integumentary: Present: clear, warm - Psychiatric Psychiatric: appropriate mood/affect, cooperative - Neurologic Neurologic: moves all extremities Results - Labs CBC & Chem 7: 09/22/20 08:00 09/22/20 08:00 Labs: Laboratory Last Values WBC 14.9 K/mm3 (4.5-11.0) H 09/21/20 06:12 RBC 3.29 M/mm3 (3.65-5.03) L 09/21/20 06:12 Hgb 9.2 gm/dl (10.1-14.3) L 09/21/20 06:12 Hct 27.7 % (30.3-42.9) L 09/21/20 06:12 MCV 84 fl (79-97) 09/21/20 06:12 MCH 28 pg (28-32) 09/21/20 06:12 MCHC 33 % (30-34) 09/21/20 06:12 RDW 17.8 % (13.2-15.2) H 09/21/20 06:12 Plt Count 65 K/mm3 (140-440) L 09/21/20 06:12 Lymph % (Auto) 14.7 % (13.4-35.0) 09/08/20 05:18 [place] % (Auto) 6.4 % (0.0-7.3) 09/08/20 05:18 Eos % (Auto) 0.0 % (0.0-4.3) 09/08/20 05:18 Baso % (Auto) 0.1 % (0.0-1.8) 09/08/20 05:18 Lymph # (Auto) 1.8 K/mm3 (1.2-5.4) 09/08/20 05:18 [place] # (Auto) 0.8 K/mm3 (0.0-0.8) 09/08/20 05:18 Eos # (Auto) 0.0 K/mm3 (0.0-0.4) 09/08/20 05:18 Baso # (Auto) 0.0 K/mm3 (0.0-0.1) 09/08/20 05:18 Add Manual Diff Complete 09/21/20 06:12 Total Counted 100 09/21/20 06:12 Seg Neutrophils % Electrical Appliance Preparer 09/12/20 06:16 Seg Neuts % (Manual) 87.0 % (40.0-70.0) H 09/21/20 06:12 Band Neutrophils % 0 % 09/21/20 06:12 Lymphocytes % (Manual) 5.0 % (13.4-35.0) L 09/21/20 06:12 Reactive Lymphs % (Man) 0 % 09/21/20 06:12 Monocytes % (Manual) 8.0 % (0.0-7.3) H 09/21/20 06:12 Eosinophils % (Manual) 0 % (0.0-4.3) 09/21/20 06:12 Basophils % (Manual) 0 % (0.0-1.8) 09/21/20 06:12 Metamyelocytes % 0 % 09/21/20 06:12 Myelocytes % 0 % 09/21/20 06:12 Promyelocytes % 0 % 09/21/20 06:12 Blast Cells % 0 % 09/21/20 06:12 Nucleated RBC % Not Reportable 09/21/20 06:12 Seg Neutrophils # 9.5 K/mm3 (1.8-7.7) H 09/08/20 05:18 Seg Neutrophils # Man 13.0 K/mm3 (1.8-7.7) H 09/21/20 06:12 Band Neutrophils # 0.0 K/mm3 09/21/20 06:12 Lymphocytes # (Manual) 0.7 K/mm3 (1.2-5.4) L 09/21/20 06:12 Abs React Lymphs (Man) 0.0 K/mm3 09/21/20 06:12 Monocytes # (Manual) 1.2 K/mm3 (0.0-0.8) H 09/21/20 06:12 Eosinophils # (Manual) 0.0 K/mm3 (0.0-0.4) 09/21/20 06:12 Basophils # (Manual) 0.0 K/mm3 (0.0-0.1) 09/21/20 06:12 Metamyelocytes # 0.0 K/mm3 09/21/20 06:12 Myelocytes # 0.0 K/mm3 09/21/20 06:12 Promyelocytes # 0.0 K/mm3 09/21/20 06:12 Blast Cells # 0.0 K/mm3 09/21/20 06:12 WBC Morphology Not Reportable 09/21/20 06:12 Hypersegmented Neuts Not Reportable 09/21/20 06:12 Hyposegmented Neuts Not Reportable 09/21/20 06:12 Hypogranular Neuts Not Reportable 09/21/20 06:12 Smudge Cells Not Reportable 09/21/20 06:12 Toxic Granulation Not Reportable 09/21/20 06:12 Toxic Vacuolation Not Reportable 09/21/20 06:12 Dohle Bodies Not Reportable 09/21/20 06:12 Pelger-Huet Anomaly Not Reportable 09/21/20 06:12 Ignacia Rods Not Reportable 09/21/20 06:12 Platelet Estimate Consistent w auto 09/21/20 06:12 Clumped Platelets Not Reportable 09/21/20 06:12 Plt Clumps, EDTA Not Reportable 09/21/20 06:12 Large Platelets Not Reportable 09/21/20 06:12 Giant Platelets Not Reportable 09/21/20 06:12 Platelet Satelliting Not Reportable 09/21/20 06:12 Plt Morphology Comment Not Reportable 09/21/20 06:12 RBC Morphology Not Reportable 09/21/20 06:12 Dimorphic RBCs Not Reportable 09/21/20 06:12 Polychromasia Not Reportable 09/21/20 06:12 Hypochromasia 1+ 09/21/20 06:12 Poikilocytosis Not Reportable 09/21/20 06:12 Anisocytosis Few 09/21/20 06:12 Microcytosis Not Reportable 09/21/20 06:12 Macrocytosis Not Reportable 09/21/20 06:12 Spherocytes Not Reportable 09/21/20 06:12 Pappenheimer Bodies Not Reportable 09/21/20 06:12 Sickle Cells Not Reportable 09/21/20 06:12 Target Cells Few 09/21/20 06:12 Tear Drop Cells Not Reportable 09/21/20 06:12 Ovalocytes Not Reportable 09/21/20 06:12 Helmet Cells Not Reportable 09/21/20 06:12 [place] Bodies Not Reportable 09/21/20 06:12 [place] Rings Not Reportable 09/21/20 06:12 [place] Cells Not Reportable 09/21/20 06:12 Bite Cells Not Reportable 09/21/20 06:12 Crenated Cell Not Reportable 09/21/20 06:12 Elliptocytes Not Reportable 09/21/20 06:12 Acanthocytes (Spur) Not Reportable 09/21/20 06:12 Rouleaux Not Reportable 09/21/20 06:12 Hemoglobin C Crystals Not Reportable 09/21/20 06:12 Schistocytes Few 09/21/20 06:12 Malaria parasites Not Reportable 09/21/20 06:12 [place] Bodies Not Reportable 09/21/20 06:12 Hem Pathologist Commnt No 09/21/20 06:12 PT 22.5 Sec. (12.2-14.9) H 09/19/20 08:50 INR 1.97 (0.87-1.13) H 09/19/20 08:50 APTT 29.2 Sec. (24.2-36.6) 09/02/20 13:52 D-Dimer 1076.18 ng/mlDDU (0-234) H 09/01/20 21:55 Heparin Anti-Xa Level 0.94 U.I./ml (0.3-0.7) H 09/03/20 05:17 ABG pH 7.441 (7.320-7.450) 09/21/20 03:25 POC ABG pCO2 28.2 mmHg (32.0-48.0) L 09/21/20 03:25 POC ABG pO2 112.5 mmHg (83-108) H 09/21/20 03:25 POC ABG HCO3 18.8 09/21/20 03:25 POC ABG Base Excess -4.5 09/21/20 03:25 ABG Hemoglobin 9.4 (12.0-17.5) L 09/21/20 03:25 ABG Sodium 136.3 mmol/L (136.0-145.0) 09/21/20 03:25 ABG Potassium 4.4 mmol/L (3.40-4.50) 09/21/20 03:25 ABG Chloride 110.0 mmol/L (98-107) H 09/21/20 03:25 ABG Glucose 163 mg/dL (65-95) H 09/21/20 03:25 FiO2 40.0 09/21/20 03:25 Sodium 143 mmol/L (137-145) 09/21/20 06:12 Potassium 4.7 mmol/L (3.6-5.0) D 09/21/20 06:12 Chloride 109.2 mmol/L (98-107) H 09/21/20 06:12 Carbon Dioxide 20 mmol/L (22-30) L 09/21/20 06:12 Anion Gap 19 mmol/L 09/21/20 06:12 BUN 62 mg/dL (7-17) H 09/21/20 06:12 Creatinine 2.2 mg/dL (0.6-1.2) H 09/21/20 06:12 Estimated GFR 27 ml/min 09/21/20 06:12 BUN/Creatinine Ratio 28 % 09/21/20 06:12 Glucose 156 mg/dL (65-100) H 09/21/20 06:12 POC Glucose 125 mg/dL (70-105) H 09/22/20 04:52 Lactic Acid 0.60 mmol/L (0.7-2.0) L 09/02/20 08:10 Calcium 8.2 mg/dL (8.4-10.2) L 09/21/20 06:12 Phosphorus 3.50 mg/dL (2.5-4.5) 09/06/20 06:43 Magnesium 2.20 mg/dL (1.7-2.3) 09/14/20 19:57 Iron 28 ug/dL (37-170) L 09/07/20 09:13 TIBC 188 mcg/dL (250-450) L 09/07/20 09:13 Ferritin 313.5 ng/mL (10.0-200.0) H 09/01/20 21:55 Total Bilirubin 0.70 mg/dL (0.1-1.2) 09/19/20 04:29 AST 29 units/L (5-40) 09/19/20 04:29 ALT 43 units/L (7-56) 09/19/20 04:29 Alkaline Phosphatase 185 units/L (35-129) H 09/19/20 04:29 Lactate Dehydrogenase 435 units/L (91-180) H 09/01/20 21:55 C-Reactive Protein 2.30 mg/dL (0.00-1.30) H 09/01/20 21:55 NT-Pro-B Natriuret Pep 15911 pg/mL (0-900) H 09/01/20 21:55 Total Protein 4.3 g/dL (6.3-8.2) L 09/19/20 04:29 Albumin 2.1 g/dL (3.9-5) L 09/19/20 04:29 Albumin/Globulin Ratio 1.0 % 09/19/20 04:29 Vitamin B12 843.2 pg/mL (211-911) 09/07/20 09:13 Procalcitonin 0.10 ng/mL (<0.15) 09/01/20 21:55 TSH 0.735 mlU/mL (0.270-4.200) 09/02/20 00:45 Free T4 0.92 ng/dL (0.76-1.46) 09/02/20 00:45 Free T4 0.94 ng/dL (0.76-1.46) 09/02/20 00:45 PTH Intact 820.4 pg/mL (15-65) H 09/04/20 05:18 Arterial Blood Glucose 163 mg/dL (65-95) H 09/21/20 03:25 Arterial Blood Ionized Calcium 4.7 mg/dL (4.6-5.3) 09/21/20 03:25 Urine Color Elena (Yellow) 09/02/20 03:44 Urine Turbidity Cloudy (Clear) 09/02/20 03:44 Urine pH 7.0 (5.0-7.0) 09/02/20 03:44 Ur Specific [place] 1.015 (1.003-1.030) 09/02/20 03:44 Urine Protein >500 mg/dL (Negative) 09/02/20 03:44 Urine Glucose (UA) Neg mg/dL (Negative) 09/02/20 03:44 Urine Ketones Neg mg/dL (Negative) 09/02/20 03:44 Urine Blood Neg (Negative) 09/02/20 03:44 Urine Nitrite Neg (Negative) 09/02/20 03:44 Urine Bilirubin Neg (Negative) 09/02/20 03:44 Urine Urobilinogen < 2.0 mg/dL (<2.0) 09/02/20 03:44 Ur Leukocyte Esterase Neg (Negative) 09/02/20 03:44 Urine WBC (Auto) < 1.0 /HPF (0.0-6.0) 09/02/20 03:44 Urine RBC (Auto) < 1.0 /HPF (0.0-6.0) 09/02/20 03:44 U Epithel Cells (Auto) < 1.0 /HPF (0-13.0) 09/02/20 03:44 Urine Bacteria (Auto) 2+ /HPF (Negative) 09/02/20 03:44 Urine Mucus Few /HPF 09/02/20 03:44 Urine Creatinine 43.2 mg/dL (0.1-20.0) H 09/06/20 06:52 Protein/Creatinin Ratio 6.90 09/06/20 06:52 Urine Sodium 84 mmol/L 09/06/20 06:52 Urine Total Protein 298 mg/dL (5-11.8) H 09/06/20 06:52 DEMARCUS Screen Negative (Negative) 09/17/20 00:10 Proteinase 3 (PR3) Ab <1.0 AI (<1.0) 09/17/20 00:10 Myeloperoxidase Ab <1.0 AI (<1.0) 09/17/20 00:10 Complement C3 82 mg/dL (83-193) L 09/17/20 00:10 Complement C4 26 mg/dL (15-57) 09/17/20 00:10 C. difficile Tox (PCR) Negative (Negative) 09/02/20 13:05 Coronavirus (PCR) Positive (Negative) A 09/17/20 Unknown SARS-CoV-2 IgG Ab Nonreactive (NonReactive) 09/02/20 08:10 Blood Type O POSITIVE 09/17/20 13:49 Antibody Screen Negative 09/17/20 13:49 Crossmatch See Detail 09/17/20 13:49 [place]/IV: Voiding Method Indwelling Catheter IV Catheter Type [Left Upper PICC Line arm] IV Catheter Type [Right INT / Saline Lock Forearm] IV Catheter Type [Left INT / Saline Lock Antecubital] IV Catheter Type [Right Hand] INT / Saline Lock IV Catheter Type [Right Upper Mid-line arm] IV Catheter Type [Right INT / Saline Lock External Jugular] Active Medications - Current Medications Current Medications: Generic Name Dose Route Start Last Admin Trade Name Freq PRN Reason Stop Dose Admin Acetaminophen 650 mg 09/02/20 00:30 09/05/20 22:50 Tylenol PO 650 mg Q6H PRN Administration Pain, Mild (1-3) Amlodipine Besylate 10 mg 09/21/20 12:00 09/21/20 12:24 Amlodipine PO 10 mg DAILY JAE Administration Lipase/Protease/Amylase 1 each 09/21/20 07:53 Pancreaze 10,500 Unit FEEDTUBE PRN PRN For Clogged Feeding Tube Calcitriol 0.5 mcg 09/05/20 13:00 09/21/20 09:50 Rocaltrol PO 0.5 mcg QDAY JAE Administration Dextrose 50 ml 09/11/20 19:09 D50w (25gm) Syringe IV Q30MIN PRN Hypoglycemia Protocol Ferrous Sulfate 308 mg 09/21/20 10:00 09/21/20 14:50 Ferrous Sulfate FEEDTUBE 308 mg DAILY JAE Administration Haloperidol Lactate 5 mg 09/11/20 19:10 Haldol IM Q6H PRN Agitation Hydralazine HCl 10 mg 09/10/20 22:23 09/14/20 05:46 Apresoline IV 10 mg Q6H PRN Administration Blood Pressure Hydromorphone HCl 0.25 mg 09/02/20 00:30 09/05/20 23:28 Dilaudid IV 0.25 mg Q4H PRN Administration Pain, Moderate (4-6) Norepinephrine 4 mg in 250 mls @ 7.5 mls/hr 09/17/20 11:00 09/18/20 18:51 Levophed Drip 4 Mg/Ns 250 Ml IV 0 mcg/min TITR JAE 0 mls/hr Titration Protocol 2 MCG/MIN Sodium Chloride 1,000 mls @ 75 mls/hr 09/21/20 12:00 09/22/20 06:31 Nacl 0.45% 1000 Ml IV 75 mls/hr DIRECT JAE Administration Insulin Human Lispro 0 unit 09/19/20 12:00 09/22/20 05:11 Humalog SUB-Q Not Given Q6HR JAE Protocol Lansoprazole 30 mg 09/22/20 10:00 Prevacid Solutab FEEDTUBE BID JAE Multivitamins 5 ml 09/18/20 10:00 09/21/20 09:50 Centrum Liq PO 5 ml QDAY JAE Administration Potassium Bicarbonate 50 meq 09/10/20 22:00 09/21/20 22:23 Klor-Con PO Not Given BID JAE Sertraline HCl 50 mg 09/02/20 10:00 09/21/20 09:50 Zoloft PO 50 mg DAILY JAE Administration Simple Syrup 15 ml 09/21/20 07:53 Simple Syrup FEEDTUBE PRN PRN Hypoglycemia Simple Syrup 30 ml 09/21/20 07:53 Simple Syrup FEEDTUBE PRN PRN Hypoglycemia Sodium Bicarbonate 325 mg 09/21/20 07:53 Sodium Bicarbonate FEEDTUBE PRN PRN For Clogged Feeding Tube Sodium Bicarbonate 650 mg 09/21/20 22:00 09/21/20 22:23 Sodium Bicarbonate PO Not Given BID JAE Sodium Chloride 10 ml 09/02/20 10:00 09/21/20 22:24 Sodium Chloride Flush Syringe 10 Ml IV 10 ml BID JAE Administration Sodium Chloride 10 ml 09/02/20 00:30 Sodium Chloride Flush Syringe 10 Ml IV PRN PRN LINE FLUSH Nutrition/Malnutrition Assess - Dietary Evaluation Nutrition/Malnutrition Findings: Nutrition Notes Start: 09/03/20 13:19 Freq: Status: Active Protocol: Document 09/21/20 13:04 LP (Rec: 09/21/20 13:13 LP [email or web address]) Nutrition Notes Need for Assessment generated from: MD Order Initial or Follow up Reassessment Current Diagnosis Acute Kidney Injury,Diabetes Other Pertinent Diagnosis COVID-19 (+), pneu, anemia, bilat BKA, erosive esophagitis Current Diet Consistent CHO + Glucerna daily Labs/Tests Reviewed Pertinent Medications Reviewed Height 5 ft 6 in Weight 100.2 kg [place] Body Weight (kg) 59.09 BMI 35.6 Weight Status Obese Subjective/Other Information Consult for TF. TF started during rounds. Pt possible extubation today. Burn Absent Trauma Absent GI Symptoms Diarrhea Difficulty In Swallowing Current % PO Poor (25-49%) Minimum of two criteria No physical signs of malnutrition #1 Nutrition Diagnosis Inadequate oral intake Diagnosis Progress(for reassessment Continues documentation) Is patient on ventilator? No Is Patient Ambulatory and/or Out of Bed No REE-([place]-St. Jeor-confined to bed) 1893.348 Kcal/Kg value to use for calculation 16 Approximate Energy Requirements Using 1603 kcal/Kg Calculation Used for Recommendations Kcal/kg Additional Notes Protein: > 118 g (> 2g/kg IBW) Fluid: 1 ml/kcal Nutrition Intervention Change Diet Order: TF Nutrition Support: Increase Nepro at 40ml/hr Flush with 150ml q4h Kcal 1,728 Protein (gm) 78 Fluid (mL) 698 Goal #1 Meet at least 75% of kcal and protein needs via TF Anticipated Discharge Needs: Unable to determine at this time Follow-Up By: 09/23/20 Additional Comments Follow for TF tolerance at goal
[2020-09-22 08:28] LABS: Hematocrit 26.3 % (30.3-42.9); Hemoglobin 8.4 gm/dl (10.1-14.3); Mean Corpuscular HGB Conc 32 % (30-34); Mean Corpuscular Volume 86 fl (79-97); Red Blood Count 3.07 M/mm3 (3.65-5.03); Red Cell Distribution Width 19.6 % (13.2-15.2)
[2020-09-22 08:32] LABS: Albumin 1.9 g/dL (3.8-4.8); Gamma Globulin 0.8 g/dL (0.8-1.7)
[2020-09-22 08:41] LABS: Calcium 8.1 mg/dL (8.4-10.2)
--- NOTE | 2020-09-22 08:47 | Progress Note ---
Assessment and Plan 64 y/o female with cardiac arrest this am, now intubated, not on sedation with severe metabolic acidosis. 1. Bicarb drip per renal 2. No sedatives. 3. Wean Fio2 as tolerated for sats >88%, currently on 3 liters NC 4. Still would consider neuro consult 5. Follow up any renal recs 6. Agree with volume 7. Overall prognosis is guarded. Pulseless total time is not definite. Continue supportive measures. 8. Stable from a critical care standpoint. Will transfer back to [facility] floor. Suggest asking GI, who already knows the patient, to help with NG tube or may even need peg. Subjective Date of service: 09/22/20 Principal diagnosis: Iron Def Anemia Interval history: Successful extubation on yesterday. Hemodynamics are stable. Unable to pass NG tube with out direct visualization. Does not currently have access for feeding. Objective Vital Signs - 12hr 09/21/20 09/21/20 09/22/20 21:14 22:59 00:00 Temperature 97.6 F Pulse Rate 86 Pulse Rate [ 86 From Monitor] Respiratory 18 Rate O2 Sat by Pulse 97 96 Oximetry 09/22/20 09/22/20 09/22/20 03:47 04:00 08:14 Temperature 98.4 F Pulse Rate 100 H Pulse Rate [ 100 H From Monitor] Respiratory 18 Rate O2 Sat by Pulse 96 97 Oximetry Constitutional: comatose ENT: other (orally intubated, not on sedation) Neck: supple Ascultation: Bilateral: clear Percussion: Bilateral: not dull Cardiovascular: regular rate and rhythm Extremities: other (bilateral amputee) CBC and BMP: 09/21/20 06:12 09/21/20 06:12 ABG, PT/INR, D-dimer: ABG ABG pH 7.441 (7.320-7.450) 09/21/20 03:25 POC ABG pCO2 28.2 mmHg (32.0-48.0) L 09/21/20 03:25 POC ABG pO2 112.5 mmHg (83-108) H 09/21/20 03:25 POC ABG HCO3 18.8 09/21/20 03:25 PT/INR, D-dimer PT 22.5 Sec. (12.2-14.9) H 09/19/20 08:50 INR 1.97 (0.87-1.13) H 09/19/20 08:50 D-Dimer 1076.18 ng/mlDDU (0-234) H 09/01/20 21:55 Abnormal lab findings: Abnormal Labs 09/01/20 09/01/20 09/01/20 21:40 21:40 21:55 WBC RBC 3.42 L Hgb 7.9 L Hct 25.6 L MCV 75 L MCH 23 L RDW 35.7 H Plt Count 113 L Lymph % (Auto) [facility] % (Auto) Lymph # (Auto) Seg Neutrophils % Seg Neuts % (Manual) 92.0 H Lymphocytes % (Manual) 5.0 L Monocytes % (Manual) Nucleated RBC % Seg Neutrophils # Seg Neutrophils # Man Lymphocytes # (Manual) 0.3 L Monocytes # (Manual) PT INR D-Dimer 1076.18 H Heparin Anti-Xa Level ABG pH POC ABG pCO2 POC ABG pO2 ABG Hemoglobin ABG Chloride ABG Glucose Sodium Potassium 5.1 H Chloride 117.5 H Carbon Dioxide 12 L BUN 51 H Creatinine 2.1 H Glucose POC Glucose Lactic Acid Calcium 7.8 L Magnesium Iron TIBC Ferritin AST 59 H Alkaline Phosphatase 242 H Lactate Dehydrogenase C-Reactive Protein NT-Pro-B Natriuret Pep Serum Total Protein Total Protein 5.3 L Albumin 2.5 L Txrwo-0-Liskcdqbv PEP Interpretation PTH Intact Arterial Blood Glucose Arterial Blood Ionized Calcium Urine Creatinine Urine Total Protein Complement C3 Coronavirus (PCR) Crossmatch 09/01/20 09/01/20 09/01/20 21:55 21:55 21:55 WBC RBC Hgb Hct MCV MCH RDW Plt Count Lymph % (Auto) [facility] % (Auto) Lymph # (Auto) Seg Neutrophils % Seg Neuts % (Manual) Lymphocytes % (Manual) Monocytes % (Manual) Nucleated RBC % Seg Neutrophils # Seg Neutrophils # Man Lymphocytes # (Manual) Monocytes # (Manual) PT INR D-Dimer Heparin Anti-Xa Level ABG pH POC ABG pCO2 POC ABG pO2 ABG Hemoglobin ABG Chloride ABG Glucose Sodium Potassium Chloride Carbon Dioxide BUN Creatinine Glucose POC Glucose Lactic Acid Calcium Magnesium Iron TIBC Ferritin 313.5 H AST Alkaline Phosphatase Lactate Dehydrogenase 435 H C-Reactive Protein 2.30 H NT-Pro-B Natriuret Pep 90570 H Serum Total Protein Total Protein Albumin Ncegb-6-Nbgjgiecm PEP Interpretation PTH Intact Arterial Blood Glucose Arterial Blood Ionized Calcium Urine Creatinine Urine Total Protein Complement C3 Coronavirus (PCR) Crossmatch 09/01/20 09/02/20 09/02/20 23:15 03:12 05:46 WBC RBC Hgb Hct MCV MCH RDW Plt Count Lymph % (Auto) [facility] % (Auto) Lymph # (Auto) Seg Neutrophils % Seg Neuts % (Manual) Lymphocytes % (Manual) Monocytes % (Manual) Nucleated RBC % Seg Neutrophils # Seg Neutrophils # Man Lymphocytes # (Manual) Monocytes # (Manual) PT INR D-Dimer Heparin Anti-Xa Level ABG pH POC ABG pCO2 POC ABG pO2 ABG Hemoglobin ABG Chloride ABG Glucose Sodium Potassium Chloride Carbon Dioxide BUN Creatinine Glucose POC Glucose 65 L Lactic Acid 0.60 L Calcium Magnesium Iron TIBC Ferritin AST Alkaline Phosphatase Lactate Dehydrogenase C-Reactive Protein NT-Pro-B Natriuret Pep Serum Total Protein Total Protein Albumin Gzqoz-5-Fpwaasnlo PEP Interpretation PTH Intact Arterial Blood Glucose Arterial Blood Ionized Calcium Urine Creatinine Urine Total Protein Complement C3 Coronavirus (PCR) Crossmatch See Detail 09/02/20 09/02/20 09/02/20 06:50 07:35 08:10 WBC RBC Hgb Hct MCV MCH RDW Plt Count Lymph % (Auto) [facility] % (Auto) Lymph # (Auto) Seg Neutrophils % Seg Neuts % (Manual) Lymphocytes % (Manual) Monocytes % (Manual) Nucleated RBC % Seg Neutrophils # Seg Neutrophils # Man Lymphocytes # (Manual) Monocytes # (Manual) PT INR D-Dimer Heparin Anti-Xa Level ABG pH POC ABG pCO2 POC ABG pO2 ABG Hemoglobin ABG Chloride ABG Glucose Sodium Potassium Chloride Carbon Dioxide BUN Creatinine Glucose POC Glucose 60 L 116 H Lactic Acid 0.60 L Calcium Magnesium Iron TIBC Ferritin AST Alkaline Phosphatase Lactate Dehydrogenase C-Reactive Protein NT-Pro-B Natriuret Pep Serum Total Protein Total Protein Albumin Clmop-2-Hgmdqcotc PEP Interpretation PTH Intact Arterial Blood Glucose Arterial Blood Ionized Calcium Urine Creatinine Urine Total Protein Complement C3 Coronavirus (PCR) Crossmatch 09/02/20 09/02/20 09/02/20 08:10 08:10 12:07 WBC RBC 3.34 L Hgb 7.6 L Hct 24.7 L MCV 74 L MCH 23 L RDW 35.8 H Plt Count 110 L Lymph % (Auto) [facility] % (Auto) Lymph # (Auto) Seg Neutrophils % Seg Neuts % (Manual) 97.0 H Lymphocytes % (Manual) 2.0 L Monocytes % (Manual) Nucleated RBC % Seg Neutrophils # Seg Neutrophils # Man Lymphocytes # (Manual) 0.1 L Monocytes # (Manual) PT INR D-Dimer Heparin Anti-Xa Level ABG pH POC ABG pCO2 POC ABG pO2 ABG Hemoglobin ABG Chloride ABG Glucose Sodium Potassium 5.2 H Chloride 120.1 H Carbon Dioxide 11 L BUN 51 H Creatinine 2.0 H Glucose POC Glucose 121 H Lactic Acid Calcium 7.4 L Magnesium Iron TIBC Ferritin AST Alkaline Phosphatase Lactate Dehydrogenase C-Reactive Protein NT-Pro-B Natriuret Pep Serum Total Protein Total Protein Albumin Zagzg-6-Gzgqexxoy PEP Interpretation PTH Intact Arterial Blood Glucose Arterial Blood Ionized Calcium Urine Creatinine Urine Total Protein Complement C3 Coronavirus (PCR) Crossmatch 09/02/20 09/02/20 09/03/20 13:52 19:50 00:32 WBC RBC Hgb 7.9 L Hct 27.4 L MCV MCH RDW Plt Count 133 L Lymph % (Auto) [facility] % (Auto) Lymph # (Auto) Seg Neutrophils % Seg Neuts % (Manual) Lymphocytes % (Manual) Monocytes % (Manual) Nucleated RBC % Seg Neutrophils # Seg Neutrophils # Man Lymphocytes # (Manual) Monocytes # (Manual) PT INR D-Dimer Heparin Anti-Xa Level 0.78 H ABG pH POC ABG pCO2 POC ABG pO2 ABG Hemoglobin ABG Chloride ABG Glucose Sodium Potassium Chloride Carbon Dioxide BUN Creatinine Glucose POC Glucose 206 H Lactic Acid Calcium Magnesium Iron TIBC Ferritin AST Alkaline Phosphatase Lactate Dehydrogenase C-Reactive Protein NT-Pro-B Natriuret Pep Serum Total Protein Total Protein Albumin Ncexg-7-Xdnivlwoy PEP Interpretation PTH Intact Arterial Blood Glucose Arterial Blood Ionized Calcium Urine Creatinine Urine Total Protein Complement C3 Coronavirus (PCR) Crossmatch 09/03/20 09/03/20 09/03/20 05:17 05:17 05:17 WBC RBC 2.87 L Hgb 6.4 L Hct 21.5 L MCV 75 L MCH 22 L RDW 35.3 H Plt Count Lymph % (Auto) [facility] % (Auto) Lymph # (Auto) Seg Neutrophils % Seg Neuts % (Manual) 76.0 H Lymphocytes % (Manual) Monocytes % (Manual) Nucleated RBC % Seg Neutrophils # Seg Neutrophils # Man 7.8 H Lymphocytes # (Manual) Monocytes # (Manual) PT 17.0 H INR 1.35 H D-Dimer Heparin Anti-Xa Level 0.94 H ABG pH POC ABG pCO2 POC ABG pO2 ABG Hemoglobin ABG Chloride ABG Glucose Sodium 147 H Potassium 5.2 H Chloride 123.4 H Carbon Dioxide 11 L BUN 59 H Creatinine 2.0 H Glucose 204 H POC Glucose Lactic Acid Calcium 7.4 L Magnesium Iron TIBC Ferritin AST Alkaline Phosphatase Lactate Dehydrogenase C-Reactive Protein NT-Pro-B Natriuret Pep Serum Total Protein Total Protein Albumin Rsjjp-7-Ebyqtxkag PEP Interpretation PTH Intact Arterial Blood Glucose Arterial Blood Ionized Calcium Urine Creatinine Urine Total Protein Complement C3 Coronavirus (PCR) Crossmatch 09/03/20 09/03/20 09/03/20 06:05 08:48 11:43 WBC RBC Hgb Hct MCV MCH RDW Plt Count Lymph % (Auto) [facility] % (Auto) Lymph # (Auto) Seg Neutrophils % Seg Neuts % (Manual) Lymphocytes % (Manual) Monocytes % (Manual) Nucleated RBC % Seg Neutrophils # Seg Neutrophils # Man Lymphocytes # (Manual) Monocytes # (Manual) PT INR D-Dimer Heparin Anti-Xa Level ABG pH POC ABG pCO2 POC ABG pO2 ABG Hemoglobin ABG Chloride ABG Glucose Sodium Potassium Chloride Carbon Dioxide BUN Creatinine Glucose POC Glucose 190 H 223 H 242 H Lactic Acid Calcium Magnesium Iron TIBC Ferritin AST Alkaline Phosphatase Lactate Dehydrogenase C-Reactive Protein NT-Pro-B Natriuret Pep Serum Total Protein Total Protein Albumin Tljhy-9-Snctgigcp PEP Interpretation PTH Intact Arterial Blood Glucose Arterial Blood Ionized Calcium Urine Creatinine Urine Total Protein Complement C3 Coronavirus (PCR) Crossmatch 09/03/20 09/03/20 09/04/20 16:21 23:37 05:18 WBC RBC 2.26 L Hgb 5.3 L* Hct 17.1 L* MCV 76 L MCH 24 L RDW 33.7 H Plt Count Lymph % (Auto) 8.[address] [facility] % (Auto) 7.5 H Lymph # (Auto) 0.7 L Seg Neutrophils % 84.3 H Seg Neuts % (Manual) Lymphocytes % (Manual) Monocytes % (Manual) Nucleated RBC % Seg Neutrophils # Seg Neutrophils # Man Lymphocytes # (Manual) Monocytes # (Manual) PT INR D-Dimer Heparin Anti-Xa Level ABG pH POC ABG pCO2 POC ABG pO2 ABG Hemoglobin ABG Chloride ABG Glucose Sodium Potassium Chloride Carbon Dioxide BUN Creatinine Glucose POC Glucose 280 H 228 H Lactic Acid Calcium Magnesium Iron TIBC Ferritin AST Alkaline Phosphatase Lactate Dehydrogenase C-Reactive Protein NT-Pro-B Natriuret Pep Serum Total Protein Total Protein Albumin Recif-0-Cvfkudmiv PEP Interpretation PTH Intact Arterial Blood Glucose Arterial Blood Ionized Calcium Urine Creatinine Urine Total Protein Complement C3 Coronavirus (PCR) Crossmatch 09/04/20 09/04/20 09/04/20 05:18 05:18 05:18 WBC RBC Hgb Hct MCV MCH RDW Plt Count Lymph % (Auto) [facility] % (Auto) Lymph # (Auto) Seg Neutrophils % Seg Neuts % (Manual) Lymphocytes % (Manual) Monocytes % (Manual) Nucleated RBC % Seg Neutrophils # Seg Neutrophils # Man Lymphocytes # (Manual) Monocytes # (Manual) PT 19.6 H INR 1.62 H D-Dimer Heparin Anti-Xa Level ABG pH POC ABG pCO2 POC ABG pO2 ABG Hemoglobin ABG Chloride ABG Glucose Sodium 149 H Potassium 5.2 H Chloride 125.6 H Carbon Dioxide 14 L BUN 86 H Creatinine 2.3 H Glucose 232 H POC Glucose Lactic Acid Calcium 7.5 L Magnesium Iron TIBC Ferritin AST Alkaline Phosphatase 144 H Lactate Dehydrogenase C-Reactive Protein NT-Pro-B Natriuret Pep Serum Total Protein Total Protein 4.1 L D Albumin 1.9 L Syeoo-2-Jqnurkzmu PEP Interpretation PTH Intact 820.4 H Arterial Blood Glucose Arterial Blood Ionized Calcium Urine Creatinine Urine Total Protein Complement C3 Coronavirus (PCR) Crossmatch 09/04/20 09/04/20 09/04/20 06:33 09:03 12:08 WBC RBC Hgb Hct MCV MCH RDW Plt Count Lymph % (Auto) [facility] % (Auto) Lymph # (Auto) Seg Neutrophils % Seg Neuts % (Manual) Lymphocytes % (Manual) Monocytes % (Manual) Nucleated RBC % Seg Neutrophils # Seg Neutrophils # Man Lymphocytes # (Manual) Monocytes # (Manual) PT INR D-Dimer Heparin Anti-Xa Level ABG pH POC ABG pCO2 POC ABG pO2 ABG Hemoglobin ABG Chloride ABG Glucose Sodium Potassium Chloride Carbon Dioxide BUN Creatinine Glucose POC Glucose 224 H 264 H 247 H Lactic Acid Calcium Magnesium Iron TIBC Ferritin AST Alkaline Phosphatase Lactate Dehydrogenase C-Reactive Protein NT-Pro-B Natriuret Pep Serum Total Protein Total Protein Albumin Vnnte-8-Uydjgvfhx PEP Interpretation PTH Intact Arterial Blood Glucose Arterial Blood Ionized Calcium Urine Creatinine Urine Total Protein Complement C3 Coronavirus (PCR) Crossmatch 09/04/20 09/04/20 09/04/20 15:01 18:58 22:28 WBC RBC Hgb 8.7 L D Hct 27.4 L D MCV MCH RDW Plt Count Lymph % (Auto) [facility] % (Auto) Lymph # (Auto) Seg Neutrophils % Seg Neuts % (Manual) Lymphocytes % (Manual) Monocytes % (Manual) Nucleated RBC % Seg Neutrophils # Seg Neutrophils # Man Lymphocytes # (Manual) Monocytes # (Manual) PT INR D-Dimer Heparin Anti-Xa Level ABG pH POC ABG pCO2 POC ABG pO2 ABG Hemoglobin ABG Chloride ABG Glucose Sodium Potassium Chloride Carbon Dioxide BUN Creatinine Glucose POC Glucose 202 H 181 H Lactic Acid Calcium Magnesium Iron TIBC Ferritin AST Alkaline Phosphatase Lactate Dehydrogenase C-Reactive Protein NT-Pro-B Natriuret Pep Serum Total Protein Total Protein Albumin Wbyff-1-Esbesxhna PEP Interpretation PTH Intact Arterial Blood Glucose Arterial Blood Ionized Calcium Urine Creatinine Urine Total Protein Complement C3 Coronavirus (PCR) Crossmatch 09/05/20 09/05/20 09/05/20 00:55 07:56 08:28 WBC RBC Hgb 7.8 L Hct 23.8 L MCV MCH RDW Plt Count Lymph % (Auto) [facility] % (Auto) Lymph # (Auto) Seg Neutrophils % Seg Neuts % (Manual) Lymphocytes % (Manual) Monocytes % (Manual) Nucleated RBC % Seg Neutrophils # Seg Neutrophils # Man Lymphocytes # (Manual) Monocytes # (Manual) PT 23.2 H INR 2.01 H D-Dimer Heparin Anti-Xa Level ABG pH POC ABG pCO2 POC ABG pO2 ABG Hemoglobin ABG Chloride ABG Glucose Sodium Potassium Chloride Carbon Dioxide BUN Creatinine Glucose POC Glucose 176 H Lactic Acid Calcium Magnesium Iron TIBC Ferritin AST Alkaline Phosphatase Lactate Dehydrogenase C-Reactive Protein NT-Pro-B Natriuret Pep Serum Total Protein Total Protein Albumin Kiiyc-2-Mptvswhgu PEP Interpretation PTH Intact Arterial Blood Glucose Arterial Blood Ionized Calcium Urine Creatinine Urine Total Protein Complement C3 Coronavirus (PCR) Crossmatch 09/05/20 09/05/20 09/05/20 08:28 08:28 12:14 WBC 11.8 H RBC 2.93 L Hgb 7.7 L Hct 23.2 L MCV MCH 26 L RDW 28.4 H Plt Count Lymph % (Auto) 9.[address] [facility] % (Auto) Lymph # (Auto) 1.1 L Seg Neutrophils % 85.4 H Seg Neuts % (Manual) Lymphocytes % (Manual) Monocytes % (Manual) Nucleated RBC % Seg Neutrophils # 10.1 H Seg Neutrophils # Man Lymphocytes # (Manual) Monocytes # (Manual) PT INR D-Dimer Heparin Anti-Xa Level ABG pH POC ABG pCO2 POC ABG pO2 ABG Hemoglobin ABG Chloride ABG Glucose Sodium 152 H Potassium Chloride 125.7 H Carbon Dioxide 13 L BUN 86 H Creatinine 2.3 H Glucose 152 H POC Glucose 131 H Lactic Acid Calcium 7.9 L Magnesium Iron TIBC Ferritin AST Alkaline Phosphatase 155 H Lactate Dehydrogenase C-Reactive Protein NT-Pro-B Natriuret Pep Serum Total Protein Total Protein 4.6 L Albumin 2.5 L Xsuox-6-Mlsvzkxgd PEP Interpretation PTH Intact Arterial Blood Glucose Arterial Blood Ionized Calcium Urine Creatinine Urine Total Protein Complement C3 Coronavirus (PCR) Crossmatch 09/05/20 09/05/20 09/06/20 18:58 21:22 00:03 WBC RBC Hgb 8.0 L 7.4 L Hct 25.7 L 22.8 L MCV MCH RDW Plt Count Lymph % (Auto) [facility] % (Auto) Lymph # (Auto) Seg Neutrophils % Seg Neuts % (Manual) Lymphocytes % (Manual) Monocytes % (Manual) Nucleated RBC % Seg Neutrophils # Seg Neutrophils # Man Lymphocytes # (Manual) Monocytes # (Manual) PT INR D-Dimer Heparin Anti-Xa Level ABG pH POC ABG pCO2 POC ABG pO2 ABG Hemoglobin ABG Chloride ABG Glucose Sodium Potassium Chloride Carbon Dioxide BUN Creatinine Glucose POC Glucose 171 H Lactic Acid Calcium Magnesium Iron TIBC Ferritin AST Alkaline Phosphatase Lactate Dehydrogenase C-Reactive Protein NT-Pro-B Natriuret Pep Serum Total Protein Total Protein Albumin Buavq-2-Qgqgxrglh PEP Interpretation PTH Intact Arterial Blood Glucose Arterial Blood Ionized Calcium Urine Creatinine Urine Total Protein Complement C3 Coronavirus (PCR) Crossmatch 09/06/20 09/06/20 09/06/20 06:43 06:43 06:43 WBC RBC 2.76 L Hgb 7.3 L Hct 21.9 L MCV MCH 26 L RDW 29.0 H Plt Count Lymph % (Auto) [facility] % (Auto) Lymph # (Auto) Seg Neutrophils % Seg Neuts % (Manual) 94.0 H Lymphocytes % (Manual) 2.0 L Monocytes % (Manual) Nucleated RBC % 3.0 H Seg Neutrophils # Seg Neutrophils # Man 8.6 H Lymphocytes # (Manual) 0.2 L Monocytes # (Manual) PT 26.4 H INR 2.37 H D-Dimer Heparin Anti-Xa Level ABG pH POC ABG pCO2 POC ABG pO2 ABG Hemoglobin ABG Chloride ABG Glucose Sodium 151 H Potassium Chloride 125.5 H Carbon Dioxide 12 L BUN 83 H Creatinine 2.3 H Glucose 130 H POC Glucose Lactic Acid Calcium 8.2 L Magnesium Iron TIBC Ferritin AST Alkaline Phosphatase 157 H Lactate Dehydrogenase C-Reactive Protein NT-Pro-B Natriuret Pep Serum Total Protein Total Protein 4.5 L Albumin 2.4 L Obhxg-0-Bckiukjei PEP Interpretation PTH Intact Arterial Blood Glucose Arterial Blood Ionized Calcium Urine Creatinine Urine Total Protein Complement C3 Coronavirus (PCR) Crossmatch 09/06/20 09/06/20 09/06/20 06:52 08:31 11:31 WBC RBC Hgb Hct MCV MCH RDW Plt Count Lymph % (Auto) [facility] % (Auto) Lymph # (Auto) Seg Neutrophils % Seg Neuts % (Manual) Lymphocytes % (Manual) Monocytes % (Manual) Nucleated RBC % Seg Neutrophils # Seg Neutrophils # Man Lymphocytes # (Manual) Monocytes # (Manual) PT INR D-Dimer Heparin Anti-Xa Level ABG pH POC ABG pCO2 POC ABG pO2 ABG Hemoglobin ABG Chloride ABG Glucose Sodium Potassium Chloride Carbon Dioxide BUN Creatinine Glucose POC Glucose 148 H 171 H Lactic Acid Calcium Magnesium Iron TIBC Ferritin AST Alkaline Phosphatase Lactate Dehydrogenase C-Reactive Protein NT-Pro-B Natriuret Pep Serum Total Protein Total Protein Albumin Jnfsk-6-Dsfsxqdgu PEP Interpretation PTH Intact Arterial Blood Glucose Arterial Blood Ionized Calcium Urine Creatinine 43.2 H Urine Total Protein 298 H Complement C3 Coronavirus (PCR) Crossmatch 09/06/20 09/06/20 09/06/20 14:59 18:03 21:36 WBC RBC Hgb 7.7 L Hct 24.5 L MCV MCH RDW Plt Count Lymph % (Auto) [facility] % (Auto) Lymph # (Auto) Seg Neutrophils % Seg Neuts % (Manual) Lymphocytes % (Manual) Monocytes % (Manual) Nucleated RBC % Seg Neutrophils # Seg Neutrophils # Man Lymphocytes # (Manual) Monocytes # (Manual) PT INR D-Dimer Heparin Anti-Xa Level ABG pH POC ABG pCO2 POC ABG pO2 ABG Hemoglobin ABG Chloride ABG Glucose Sodium Potassium Chloride Carbon Dioxide BUN Creatinine Glucose POC Glucose 135 H 131 H Lactic Acid Calcium Magnesium Iron TIBC Ferritin AST Alkaline Phosphatase Lactate Dehydrogenase C-Reactive Protein NT-Pro-B Natriuret Pep Serum Total Protein Total Protein Albumin Tgfig-9-Rqqywcvrg PEP Interpretation PTH Intact Arterial Blood Glucose Arterial Blood Ionized Calcium Urine Creatinine Urine Total Protein Complement C3 Coronavirus (PCR) Crossmatch 09/07/20 09/07/20 09/07/20 01:27 09:13 09:13 WBC RBC 3.13 L Hgb 7.5 L 8.2 L Hct 23.4 L 25.5 L MCV MCH 26 L RDW 28.6 H Plt Count Lymph % (Auto) [facility] % (Auto) Lymph # (Auto) Seg Neutrophils % Seg Neuts % (Manual) 94.0 H Lymphocytes % (Manual) 3.0 L Monocytes % (Manual) Nucleated RBC % 2.0 H Seg Neutrophils # Seg Neutrophils # Man 9.5 H Lymphocytes # (Manual) 0.3 L Monocytes # (Manual) PT 29.6 H INR 2.74 H D-Dimer Heparin Anti-Xa Level ABG pH POC ABG pCO2 POC ABG pO2 ABG Hemoglobin ABG Chloride ABG Glucose Sodium Potassium Chloride Carbon Dioxide BUN Creatinine Glucose POC Glucose Lactic Acid Calcium Magnesium Iron TIBC Ferritin AST Alkaline Phosphatase Lactate Dehydrogenase C-Reactive Protein NT-Pro-B Natriuret Pep Serum Total Protein Total Protein Albumin Oecuf-2-Nkvfofovx PEP Interpretation PTH Intact Arterial Blood Glucose Arterial Blood Ionized Calcium Urine Creatinine Urine Total Protein Complement C3 Coronavirus (PCR) Crossmatch 09/07/20 09/07/20 09/07/20 09:13 17:15 18:38 WBC RBC Hgb Hct MCV MCH RDW Plt Count Lymph % (Auto) [facility] % (Auto) Lymph # (Auto) Seg Neutrophils % Seg Neuts % (Manual) Lymphocytes % (Manual) Monocytes % (Manual) Nucleated RBC % Seg Neutrophils # Seg Neutrophils # Man Lymphocytes # (Manual) Monocytes # (Manual) PT INR D-Dimer Heparin Anti-Xa Level ABG pH POC ABG pCO2 POC ABG pO2 ABG Hemoglobin ABG Chloride ABG Glucose Sodium 152 H Potassium Chloride 129.1 H Carbon Dioxide 13 L BUN 78 H Creatinine 2.4 H Glucose 111 H POC Glucose 59 L 107 H Lactic Acid Calcium Magnesium Iron 28 L TIBC 188 L Ferritin AST Alkaline Phosphatase 191 H Lactate Dehydrogenase C-Reactive Protein NT-Pro-B Natriuret Pep Serum Total Protein Total Protein 5.0 L Albumin 2.4 L Rxagi-4-Kndzixcow PEP Interpretation PTH Intact Arterial Blood Glucose Arterial Blood Ionized Calcium Urine Creatinine Urine Total Protein Complement C3 Coronavirus (PCR) Crossmatch 09/07/20 09/08/20 09/08/20 Unknown 05:18 05:18 WBC 12.0 H RBC 2.93 L Hgb 7.6 L Hct 23.7 L MCV MCH 26 L RDW 29.3 H Plt Count 130 L Lymph % (Auto) [facility] % (Auto) Lymph # (Auto) Seg Neutrophils % 78.8 H Seg Neuts % (Manual) Lymphocytes % (Manual) Monocytes % (Manual) Nucleated RBC % Seg Neutrophils # 9.5 H Seg Neutrophils # Man Lymphocytes # (Manual) Monocytes # (Manual) PT 34.0 H INR 3.27 H D-Dimer Heparin Anti-Xa Level ABG pH POC ABG pCO2 POC ABG pO2 ABG Hemoglobin ABG Chloride ABG Glucose Sodium Potassium Chloride Carbon Dioxide BUN Creatinine Glucose POC Glucose Lactic Acid Calcium Magnesium Iron TIBC Ferritin AST Alkaline Phosphatase Lactate Dehydrogenase C-Reactive Protein NT-Pro-B Natriuret Pep Serum Total Protein Total Protein Albumin Iygfb-1-Cpbsgxadh PEP Interpretation PTH Intact Arterial Blood Glucose Arterial Blood Ionized Calcium Urine Creatinine Urine Total Protein Complement C3 Coronavirus (PCR) Positive A Crossmatch 09/08/20 09/08/20 09/08/20 05:18 12:21 22:01 WBC RBC Hgb Hct MCV MCH RDW Plt Count Lymph % (Auto) [facility] % (Auto) Lymph # (Auto) Seg Neutrophils % Seg Neuts % (Manual) Lymphocytes % (Manual) Monocytes % (Manual) Nucleated RBC % Seg Neutrophils # Seg Neutrophils # Man Lymphocytes # (Manual) Monocytes # (Manual) PT INR D-Dimer Heparin Anti-Xa Level ABG pH POC ABG pCO2 POC ABG pO2 ABG Hemoglobin ABG Chloride ABG Glucose Sodium 148 H Potassium Chloride 127.0 H Carbon Dioxide 12 L BUN 77 H Creatinine 2.3 H Glucose 60 L POC Glucose 110 H 129 H Lactic Acid Calcium Magnesium Iron TIBC Ferritin AST Alkaline Phosphatase 185 H Lactate Dehydrogenase C-Reactive Protein NT-Pro-B Natriuret Pep Serum Total Protein Total Protein 5.0 L Albumin 2.4 L Emdvc-5-Ejlwruztz PEP Interpretation PTH Intact Arterial Blood Glucose Arterial Blood Ionized Calcium Urine Creatinine Urine Total Protein Complement C3 Coronavirus (PCR) Crossmatch 09/09/20 09/09/20 09/09/20 09:06 09:06 09:06 WBC 11.5 H RBC 2.92 L Hgb 7.5 L Hct 23.9 L MCV MCH 26 L RDW 29.4 H Plt Count 119 L Lymph % (Auto) [facility] % (Auto) Lymph # (Auto) Seg Neutrophils % Seg Neuts % (Manual) 98.0 H Lymphocytes % (Manual) 0 L Monocytes % (Manual) Nucleated RBC % Seg Neutrophils # Seg Neutrophils # Man 11.3 H Lymphocytes # (Manual) 0.0 L Monocytes # (Manual) PT 19.3 H INR 1.59 H D-Dimer Heparin Anti-Xa Level ABG pH POC ABG pCO2 POC ABG pO2 ABG Hemoglobin ABG Chloride ABG Glucose Sodium 153 H Potassium Chloride 128.7 H Carbon Dioxide 13 L BUN 70 H Creatinine 2.3 H Glucose 102 H POC Glucose Lactic Acid Calcium Magnesium Iron TIBC Ferritin AST Alkaline Phosphatase 186 H Lactate Dehydrogenase C-Reactive Protein NT-Pro-B Natriuret Pep Serum Total Protein Total Protein 4.4 L Albumin 2.4 L Yrprn-4-Gdwllzkcc PEP Interpretation PTH Intact Arterial Blood Glucose Arterial Blood Ionized Calcium Urine Creatinine Urine Total Protein Complement C3 Coronavirus (PCR) Crossmatch 09/09/20 09/10/20 09/10/20 23:08 05:12 05:12 WBC 12.1 H RBC 2.66 L Hgb 6.8 L Hct 22.0 L MCV MCH 26 L RDW 29.9 H Plt Count 110 L Lymph % (Auto) [facility] % (Auto) Lymph # (Auto) Seg Neutrophils % Seg Neuts % (Manual) 97.0 H Lymphocytes % (Manual) 0 L Monocytes % (Manual) Nucleated RBC % Seg Neutrophils # Seg Neutrophils # Man 11.7 H Lymphocytes # (Manual) 0.0 L Monocytes # (Manual) PT INR D-Dimer Heparin Anti-Xa Level ABG pH POC ABG pCO2 POC ABG pO2 ABG Hemoglobin ABG Chloride ABG Glucose Sodium 153 H Potassium Chloride 126.8 H Carbon Dioxide 14 L BUN 69 H Creatinine 2.2 H Glucose 129 H POC Glucose 142 H Lactic Acid Calcium 8.1 L Magnesium Iron TIBC Ferritin AST Alkaline Phosphatase 180 H Lactate Dehydrogenase C-Reactive Protein NT-Pro-B Natriuret Pep Serum Total Protein Total Protein 4.2 L Albumin 2.3 L Abrlp-1-Zmrwpbyie PEP Interpretation PTH Intact Arterial Blood Glucose Arterial Blood Ionized Calcium Urine Creatinine Urine Total Protein Complement C3 Coronavirus (PCR) Crossmatch 09/10/20 09/10/20 09/10/20 05:12 07:59 12:23 WBC RBC Hgb Hct MCV MCH RDW Plt Count Lymph % (Auto) [facility] % (Auto) Lymph # (Auto) Seg Neutrophils % Seg Neuts % (Manual) Lymphocytes % (Manual) Monocytes % (Manual) Nucleated RBC % Seg Neutrophils # Seg Neutrophils # Man Lymphocytes # (Manual) Monocytes # (Manual) PT 16.7 H INR 1.32 H D-Dimer Heparin Anti-Xa Level ABG pH POC ABG pCO2 POC ABG pO2 ABG Hemoglobin ABG Chloride ABG Glucose Sodium Potassium Chloride Carbon Dioxide BUN Creatinine Glucose POC Glucose 162 H 148 H Lactic Acid Calcium Magnesium Iron TIBC Ferritin AST Alkaline Phosphatase Lactate Dehydrogenase C-Reactive Protein NT-Pro-B Natriuret Pep Serum Total Protein Total Protein Albumin Xukiq-0-Pahzrotia PEP Interpretation PTH Intact Arterial Blood Glucose Arterial Blood Ionized Calcium Urine Creatinine Urine Total Protein Complement C3 Coronavirus (PCR) Crossmatch 09/10/20 09/10/20 09/10/20 13:48 17:04 21:55 WBC RBC Hgb Hct MCV MCH RDW Plt Count Lymph % (Auto) [facility] % (Auto) Lymph # (Auto) Seg Neutrophils % Seg Neuts % (Manual) Lymphocytes % (Manual) Monocytes % (Manual) Nucleated RBC % Seg Neutrophils # Seg Neutrophils # Man Lymphocytes # (Manual) Monocytes # (Manual) PT INR D-Dimer Heparin Anti-Xa Level ABG pH POC ABG pCO2 POC ABG pO2 ABG Hemoglobin ABG Chloride ABG Glucose Sodium Potassium Chloride Carbon Dioxide BUN Creatinine Glucose POC Glucose 162 H 155 H Lactic Acid Calcium Magnesium Iron TIBC Ferritin AST Alkaline Phosphatase Lactate Dehydrogenase C-Reactive Protein NT-Pro-B Natriuret Pep Serum Total Protein Total Protein Albumin Fxhpr-8-Abeitokro PEP Interpretation PTH Intact Arterial Blood Glucose Arterial Blood Ionized Calcium Urine Creatinine Urine Total Protein Complement C3 Coronavirus (PCR) Crossmatch See Detail 09/11/20 09/11/20 09/11/20 08:25 08:25 08:25 WBC 13.2 H RBC 2.68 L Hgb 7.1 L Hct 21.7 L MCV MCH 26 L RDW 31.2 H Plt Count 92 L Lymph % (Auto) [facility] % (Auto) Lymph # (Auto) Seg Neutrophils % Seg Neuts % (Manual) 97.0 H Lymphocytes % (Manual) 0 L Monocytes % (Manual) Nucleated RBC % 1.0 H Seg Neutrophils # Seg Neutrophils # Man 12.8 H Lymphocytes # (Manual) 0.0 L Monocytes # (Manual) PT 18.0 H INR 1.46 H D-Dimer Heparin Anti-Xa Level ABG pH POC ABG pCO2 POC ABG pO2 ABG Hemoglobin ABG Chloride ABG Glucose Sodium 151 H Potassium Chloride 126.7 H Carbon Dioxide 14 L BUN 72 H Creatinine 2.1 H Glucose POC Glucose Lactic Acid Calcium 8.1 L Magnesium Iron TIBC Ferritin AST Alkaline Phosphatase Lactate Dehydrogenase C-Reactive Protein NT-Pro-B Natriuret Pep Serum Total Protein Total Protein Albumin Bfmec-4-Hprtdfkvb PEP Interpretation PTH Intact Arterial Blood Glucose Arterial Blood Ionized Calcium Urine Creatinine Urine Total Protein Complement C3 Coronavirus (PCR) Crossmatch 09/11/20 09/11/20 09/11/20 13:40 17:50 19:24 WBC RBC Hgb Hct MCV MCH RDW Plt Count Lymph % (Auto) [facility] % (Auto) Lymph # (Auto) Seg Neutrophils % Seg Neuts % (Manual) Lymphocytes % (Manual) Monocytes % (Manual) Nucleated RBC % Seg Neutrophils # Seg Neutrophils # Man Lymphocytes # (Manual) Monocytes # (Manual) PT INR D-Dimer Heparin Anti-Xa Level ABG pH POC ABG pCO2 POC ABG pO2 ABG Hemoglobin ABG Chloride ABG Glucose Sodium Potassium Chloride Carbon Dioxide BUN Creatinine Glucose POC Glucose 67 L 52 L 193 H Lactic Acid Calcium Magnesium Iron TIBC Ferritin AST Alkaline Phosphatase Lactate Dehydrogenase C-Reactive Protein NT-Pro-B Natriuret Pep Serum Total Protein Total Protein Albumin Wffvv-3-Wydqydgap PEP Interpretation PTH Intact Arterial Blood Glucose Arterial Blood Ionized Calcium Urine Creatinine Urine Total Protein Complement C3 Coronavirus (PCR) Crossmatch 09/11/20 09/12/20 09/12/20 21:24 06:16 06:16 WBC RBC Hgb Hct MCV MCH RDW Plt Count Lymph % (Auto) [facility] % (Auto) Lymph # (Auto) Seg Neutrophils % Seg Neuts % (Manual) Lymphocytes % (Manual) Monocytes % (Manual) Nucleated RBC % Seg Neutrophils # Seg Neutrophils # Man Lymphocytes # (Manual) Monocytes # (Manual) PT 16.7 H INR 1.34 H D-Dimer Heparin Anti-Xa Level ABG pH POC ABG pCO2 POC ABG pO2 ABG Hemoglobin ABG Chloride ABG Glucose Sodium 149 H Potassium Chloride 124.7 H Carbon Dioxide 15 L BUN 67 H Creatinine 2.0 H Glucose 134 H POC Glucose 184 H Lactic Acid Calcium 8.1 L Magnesium Iron TIBC Ferritin AST Alkaline Phosphatase Lactate Dehydrogenase C-Reactive Protein NT-Pro-B Natriuret Pep Serum Total Protein Total Protein Albumin Fbget-4-Ntesdgawl PEP Interpretation PTH Intact Arterial Blood Glucose Arterial Blood Ionized Calcium Urine Creatinine Urine Total Protein Complement C3 Coronavirus (PCR) Crossmatch 09/12/20 09/12/20 09/12/20 06:16 08:06 11:11 WBC 17.4 H RBC 2.55 L Hgb 6.7 L Hct 22.3 L MCV MCH 26 L RDW 31.8 H Plt Count 104 L Lymph % (Auto) [facility] % (Auto) Lymph # (Auto) Seg Neutrophils % Seg Neuts % (Manual) 94.0 H Lymphocytes % (Manual) 1.0 L Monocytes % (Manual) Nucleated RBC % 2.0 H Seg Neutrophils # Seg Neutrophils # Man 16.4 H Lymphocytes # (Manual) 0.2 L Monocytes # (Manual) PT INR D-Dimer Heparin Anti-Xa Level ABG pH POC ABG pCO2 POC ABG pO2 ABG Hemoglobin ABG Chloride ABG Glucose Sodium Potassium Chloride Carbon Dioxide BUN Creatinine Glucose POC Glucose 127 H 128 H Lactic Acid Calcium Magnesium Iron TIBC Ferritin AST Alkaline Phosphatase Lactate Dehydrogenase C-Reactive Protein NT-Pro-B Natriuret Pep Serum Total Protein Total Protein Albumin Tuppe-8-Adummwmur PEP Interpretation PTH Intact Arterial Blood Glucose Arterial Blood Ionized Calcium Urine Creatinine Urine Total Protein Complement C3 Coronavirus (PCR) Crossmatch 09/12/20 09/13/20 09/13/20 16:30 00:02 07:26 WBC RBC Hgb Hct MCV MCH RDW Plt Count Lymph % (Auto) [facility] % (Auto) Lymph # (Auto) Seg Neutrophils % Seg Neuts % (Manual) Lymphocytes % (Manual) Monocytes % (Manual) Nucleated RBC % Seg Neutrophils # Seg Neutrophils # Man Lymphocytes # (Manual) Monocytes # (Manual) PT 19.5 H INR 1.63 H D-Dimer Heparin Anti-Xa Level ABG pH POC ABG pCO2 POC ABG pO2 ABG Hemoglobin ABG Chloride ABG Glucose Sodium Potassium Chloride Carbon Dioxide BUN Creatinine Glucose POC Glucose 145 H 247 H Lactic Acid Calcium Magnesium Iron TIBC Ferritin AST Alkaline Phosphatase Lactate Dehydrogenase C-Reactive Protein NT-Pro-B Natriuret Pep Serum Total Protein Total Protein Albumin Qpbfs-2-Gphhnqrdx PEP Interpretation PTH Intact Arterial Blood Glucose Arterial Blood Ionized Calcium Urine Creatinine Urine Total Protein Complement C3 Coronavirus (PCR) Crossmatch 09/13/20 09/13/20 09/13/20 07:26 09:56 10:07 WBC 15.3 H RBC 2.62 L Hgb 7.1 L Hct 22.6 L MCV MCH 27 L RDW 28.7 H Plt Count 89 L Lymph % (Auto) [facility] % (Auto) Lymph # (Auto) Seg Neutrophils % Seg Neuts % (Manual) Lymphocytes % (Manual) Monocytes % (Manual) Nucleated RBC % Seg Neutrophils # Seg Neutrophils # Man Lymphocytes # (Manual) Monocytes # (Manual) PT INR D-Dimer Heparin Anti-Xa Level ABG pH POC ABG pCO2 POC ABG pO2 ABG Hemoglobin ABG Chloride ABG Glucose Sodium 146 H Potassium Chloride 121.3 H Carbon Dioxide 13 L BUN 67 H Creatinine 1.8 H Glucose 194 H POC Glucose 233 H Lactic Acid Calcium 8.2 L Magnesium 1.40 L Iron TIBC Ferritin AST Alkaline Phosphatase Lactate Dehydrogenase C-Reactive Protein NT-Pro-B Natriuret Pep Serum Total Protein Total Protein Albumin Cthcm-7-Smqdopnwn PEP Interpretation PTH Intact Arterial Blood Glucose Arterial Blood Ionized Calcium Urine Creatinine Urine Total Protein Complement C3 Coronavirus (PCR) Crossmatch 09/13/20 09/13/20 09/14/20 13:37 17:17 00:42 WBC RBC Hgb Hct MCV MCH RDW Plt Count Lymph % (Auto) [facility] % (Auto) Lymph # (Auto) Seg Neutrophils % Seg Neuts % (Manual) Lymphocytes % (Manual) Monocytes % (Manual) Nucleated RBC % Seg Neutrophils # Seg Neutrophils # Man Lymphocytes # (Manual) Monocytes # (Manual) PT INR D-Dimer Heparin Anti-Xa Level ABG pH POC ABG pCO2 POC ABG pO2 ABG Hemoglobin ABG Chloride ABG Glucose Sodium Potassium Chloride Carbon Dioxide BUN Creatinine Glucose POC Glucose 181 H 148 H 200 H Lactic Acid Calcium Magnesium Iron TIBC Ferritin AST Alkaline Phosphatase Lactate Dehydrogenase C-Reactive Protein NT-Pro-B Natriuret Pep Serum Total Protein Total Protein Albumin Njslj-3-Npltwdnvq PEP Interpretation PTH Intact Arterial Blood Glucose Arterial Blood Ionized Calcium Urine Creatinine Urine Total Protein Complement C3 Coronavirus (PCR) Crossmatch 09/14/20 09/14/20 09/14/20 10:08 14:54 19:57 WBC RBC Hgb Hct MCV MCH RDW Plt Count Lymph % (Auto) [facility] % (Auto) Lymph # (Auto) Seg Neutrophils % Seg Neuts % (Manual) Lymphocytes % (Manual) Monocytes % (Manual) Nucleated RBC % Seg Neutrophils # Seg Neutrophils # Man Lymphocytes # (Manual) Monocytes # (Manual) PT 19.4 H INR 1.62 H D-Dimer Heparin Anti-Xa Level ABG pH POC ABG pCO2 POC ABG pO2 ABG Hemoglobin ABG Chloride ABG Glucose Sodium Potassium Chloride Carbon Dioxide BUN Creatinine Glucose POC Glucose 204 H 138 H Lactic Acid Calcium Magnesium Iron TIBC Ferritin AST Alkaline Phosphatase Lactate Dehydrogenase C-Reactive Protein NT-Pro-B Natriuret Pep Serum Total Protein Total Protein Albumin Xhcgu-9-Tgyfjafrr PEP Interpretation PTH Intact Arterial Blood Glucose Arterial Blood Ionized Calcium Urine Creatinine Urine Total Protein Complement C3 Coronavirus (PCR) Crossmatch 09/14/20 09/14/20 09/15/20 19:57 23:02 08:34 WBC RBC Hgb Hct MCV MCH RDW Plt Count Lymph % (Auto) [facility] % (Auto) Lymph # (Auto) Seg Neutrophils % Seg Neuts % (Manual) Lymphocytes % (Manual) Monocytes % (Manual) Nucleated RBC % Seg Neutrophils # Seg Neutrophils # Man Lymphocytes # (Manual) Monocytes # (Manual) PT INR D-Dimer Heparin Anti-Xa Level ABG pH POC ABG pCO2 POC ABG pO2 ABG Hemoglobin ABG Chloride ABG Glucose Sodium Potassium Chloride 117.8 H Carbon Dioxide 10 L BUN 26 H Creatinine 1.8 H Glucose 132 H POC Glucose 173 H 151 H Lactic Acid Calcium 8.2 L Magnesium Iron TIBC Ferritin AST Alkaline Phosphatase Lactate Dehydrogenase C-Reactive Protein NT-Pro-B Natriuret Pep Serum Total Protein Total Protein Albumin Oqswv-2-Vmnrdrcbl PEP Interpretation PTH Intact Arterial Blood Glucose Arterial Blood Ionized Calcium Urine Creatinine Urine Total Protein Complement C3 Coronavirus (PCR) Crossmatch 09/16/20 09/16/20 09/16/20 09:30 13:17 13:44 WBC RBC Hgb Hct MCV MCH RDW Plt Count Lymph % (Auto) [facility] % (Auto) Lymph # (Auto) Seg Neutrophils % Seg Neuts % (Manual) Lymphocytes % (Manual) Monocytes % (Manual) Nucleated RBC % Seg Neutrophils # Seg Neutrophils # Man Lymphocytes # (Manual) Monocytes # (Manual) PT INR D-Dimer Heparin Anti-Xa Level ABG pH POC ABG pCO2 POC ABG pO2 ABG Hemoglobin ABG Chloride ABG Glucose Sodium Potassium Chloride 115.8 H Carbon Dioxide 16 L BUN 53 H Creatinine 1.8 H Glucose 148 H POC Glucose 114 H 130 H Lactic Acid Calcium 8.0 L Magnesium Iron TIBC Ferritin AST Alkaline Phosphatase Lactate Dehydrogenase C-Reactive Protein NT-Pro-B Natriuret Pep Serum Total Protein Total Protein Albumin Vpuwi-8-Dyakfhqvn PEP Interpretation PTH Intact Arterial Blood Glucose Arterial Blood Ionized Calcium Urine Creatinine Urine Total Protein Complement C3 Coronavirus (PCR) Crossmatch 09/16/20 09/16/20 09/16/20 13:44 13:44 16:49 WBC RBC 2.67 L Hgb 7.3 L Hct 22.0 L MCV MCH 27 L RDW 29.3 H Plt Count 65 L Lymph % (Auto) [facility] % (Auto) Lymph # (Auto) Seg Neutrophils % Seg Neuts % (Manual) Lymphocytes % (Manual) Monocytes % (Manual) Nucleated RBC % Seg Neutrophils # Seg Neutrophils # Man Lymphocytes # (Manual) Monocytes # (Manual) PT INR D-Dimer Heparin Anti-Xa Level ABG pH POC ABG pCO2 POC ABG pO2 ABG Hemoglobin ABG Chloride ABG Glucose Sodium Potassium Chloride Carbon Dioxide BUN Creatinine Glucose POC Glucose 171 H Lactic Acid Calcium Magnesium Iron TIBC Ferritin AST Alkaline Phosphatase Lactate Dehydrogenase C-Reactive Protein NT-Pro-B Natriuret Pep Serum Total Protein 4.3 L Total Protein Albumin 1.9 L Hnhcq-2-Hzbaxfkvm 0.5 H PEP Interpretation see below H PTH Intact Arterial Blood Glucose Arterial Blood Ionized Calcium Urine Creatinine Urine Total Protein Complement C3 Coronavirus (PCR) Crossmatch 09/16/20 09/17/20 09/17/20 22:46 00:10 03:15 WBC RBC Hgb Hct MCV MCH RDW Plt Count Lymph % (Auto) [facility] % (Auto) Lymph # (Auto) Seg Neutrophils % Seg Neuts % (Manual) Lymphocytes % (Manual) Monocytes % (Manual) Nucleated RBC % Seg Neutrophils # Seg Neutrophils # Man Lymphocytes # (Manual) Monocytes # (Manual) PT INR D-Dimer Heparin Anti-Xa Level ABG pH POC ABG pCO2 POC ABG pO2 ABG Hemoglobin ABG Chloride ABG Glucose Sodium 147 H Potassium Chloride 120.9 H Carbon Dioxide 15 L BUN 54 H Creatinine 1.7 H Glucose 125 H POC Glucose 157 H Lactic Acid Calcium 7.8 L Magnesium Iron TIBC Ferritin AST Alkaline Phosphatase Lactate Dehydrogenase C-Reactive Protein NT-Pro-B Natriuret Pep Serum Total Protein Total Protein Albumin Odbgt-2-Uyqhakxsj PEP Interpretation PTH Intact Arterial Blood Glucose Arterial Blood Ionized Calcium Urine Creatinine Urine Total Protein Complement C3 82 L Coronavirus (PCR) Crossmatch 09/17/20 09/17/20 09/17/20 11:42 11:46 13:49 WBC 21.0 H RBC 2.53 L Hgb 6.9 L Hct 21.1 L MCV MCH 27 L RDW 29.1 H Plt Count 73 L Lymph % (Auto) [facility] % (Auto) Lymph # (Auto) Seg Neutrophils % Seg Neuts % (Manual) Lymphocytes % (Manual) Monocytes % (Manual) Nucleated RBC % Seg Neutrophils # Seg Neutrophils # Man Lymphocytes # (Manual) Monocytes # (Manual) PT INR D-Dimer Heparin Anti-Xa Level ABG pH 7.172 L POC ABG pCO2 POC ABG pO2 456.0 H ABG Hemoglobin 6.8 L ABG Chloride 119.0 H ABG Glucose 143 H Sodium Potassium Chloride Carbon Dioxide BUN Creatinine Glucose POC Glucose 116 H Lactic Acid Calcium Magnesium Iron TIBC Ferritin AST Alkaline Phosphatase Lactate Dehydrogenase C-Reactive Protein NT-Pro-B Natriuret Pep Serum Total Protein Total Protein Albumin Tkwej-1-Bndqaovnh PEP Interpretation PTH Intact Arterial Blood Glucose 143 H Arterial Blood Ionized Calcium Urine Creatinine Urine Total Protein Complement C3 Coronavirus (PCR) Crossmatch 09/17/20 09/17/20 09/17/20 13:49 13:49 17:42 WBC RBC Hgb Hct MCV MCH RDW Plt Count Lymph % (Auto) [facility] % (Auto) Lymph # (Auto) Seg Neutrophils % Seg Neuts % (Manual) Lymphocytes % (Manual) Monocytes % (Manual) Nucleated RBC % Seg Neutrophils # Seg Neutrophils # Man Lymphocytes # (Manual) Monocytes # (Manual) PT INR D-Dimer Heparin Anti-Xa Level ABG pH POC ABG pCO2 POC ABG pO2 ABG Hemoglobin ABG Chloride ABG Glucose Sodium 148 H Potassium Chloride 117.9 H Carbon Dioxide 16 L BUN 59 H Creatinine 1.9 H Glucose 126 H POC Glucose 127 H Lactic Acid Calcium 7.6 L Magnesium Iron TIBC Ferritin AST Alkaline Phosphatase Lactate Dehydrogenase C-Reactive Protein NT-Pro-B Natriuret Pep Serum Total Protein Total Protein Albumin Lucic-6-Ooxwhqhih PEP Interpretation PTH Intact Arterial Blood Glucose Arterial Blood Ionized Calcium Urine Creatinine Urine Total Protein Complement C3 Coronavirus (PCR) Crossmatch See Detail 09/17/20 09/17/20 09/17/20 21:06 22:19 Unknown WBC RBC Hgb 7.4 L Hct 23.3 L MCV MCH RDW Plt Count Lymph % (Auto) [facility] % (Auto) Lymph # (Auto) Seg Neutrophils % Seg Neuts % (Manual) Lymphocytes % (Manual) Monocytes % (Manual) Nucleated RBC % Seg Neutrophils # Seg Neutrophils # Man Lymphocytes # (Manual) Monocytes # (Manual) PT INR D-Dimer Heparin Anti-Xa Level ABG pH POC ABG pCO2 POC ABG pO2 ABG Hemoglobin ABG Chloride ABG Glucose Sodium Potassium Chloride Carbon Dioxide BUN Creatinine Glucose POC Glucose 138 H Lactic Acid Calcium Magnesium Iron TIBC Ferritin AST Alkaline Phosphatase Lactate Dehydrogenase C-Reactive Protein NT-Pro-B Natriuret Pep Serum Total Protein Total Protein Albumin Ztnln-3-Gxoflofcn PEP Interpretation PTH Intact Arterial Blood Glucose Arterial Blood Ionized Calcium Urine Creatinine Urine Total Protein Complement C3 Coronavirus (PCR) Positive A Crossmatch 09/18/20 09/18/20 09/18/20 04:00 04:14 05:02 WBC RBC Hgb Hct MCV MCH RDW Plt Count Lymph % (Auto) [facility] % (Auto) Lymph # (Auto) Seg Neutrophils % Seg Neuts % (Manual) Lymphocytes % (Manual) Monocytes % (Manual) Nucleated RBC % Seg Neutrophils # Seg Neutrophils # Man Lymphocytes # (Manual) Monocytes # (Manual) PT INR D-Dimer Heparin Anti-Xa Level ABG pH POC ABG pCO2 27.5 L POC ABG pO2 143.4 H ABG Hemoglobin 7.7 L ABG Chloride 120.0 H ABG Glucose 169 H Sodium 149 H Potassium Chloride 118.6 H Carbon Dioxide 18 L BUN 65 H Creatinine 1.9 H Glucose 164 H POC Glucose 136 H Lactic Acid Calcium 7.6 L Magnesium Iron TIBC Ferritin AST Alkaline Phosphatase Lactate Dehydrogenase C-Reactive Protein NT-Pro-B Natriuret Pep Serum Total Protein Total Protein Albumin Afnpd-6-Ptttfwwcz PEP Interpretation PTH Intact Arterial Blood Glucose 169 H Arterial Blood Ionized Calcium 4.4 L Urine Creatinine Urine Total Protein Complement C3 Coronavirus (PCR) Crossmatch 09/18/20 09/18/20 09/18/20 12:30 12:30 12:35 WBC 17.3 H RBC 2.51 L Hgb 6.8 L Hct 20.9 L MCV MCH 27 L RDW 24.1 H Plt Count 62 L Lymph % (Auto) [facility] % (Auto) Lymph # (Auto) Seg Neutrophils % Seg Neuts % (Manual) Lymphocytes % (Manual) Monocytes % (Manual) Nucleated RBC % Seg Neutrophils # Seg Neutrophils # Man Lymphocytes # (Manual) Monocytes # (Manual) PT 22.3 H INR 1.94 H D-Dimer Heparin Anti-Xa Level ABG pH POC ABG pCO2 POC ABG pO2 ABG Hemoglobin ABG Chloride ABG Glucose Sodium Potassium Chloride Carbon Dioxide BUN Creatinine Glucose POC Glucose 121 H Lactic Acid Calcium Magnesium Iron TIBC Ferritin AST Alkaline Phosphatase Lactate Dehydrogenase C-Reactive Protein NT-Pro-B Natriuret Pep Serum Total Protein Total Protein Albumin Kjrfa-7-Ievhhwgze PEP Interpretation PTH Intact Arterial Blood Glucose Arterial Blood Ionized Calcium Urine Creatinine Urine Total Protein Complement C3 Coronavirus (PCR) Crossmatch 09/18/20 09/19/20 09/19/20 21:12 04:13 04:29 WBC RBC Hgb Hct MCV MCH RDW Plt Count Lymph % (Auto) [facility] % (Auto) Lymph # (Auto) Seg Neutrophils % Seg Neuts % (Manual) Lymphocytes % (Manual) Monocytes % (Manual) Nucleated RBC % Seg Neutrophils # Seg Neutrophils # Man Lymphocytes # (Manual) Monocytes # (Manual) PT INR D-Dimer Heparin Anti-Xa Level ABG pH POC ABG pCO2 30.0 L POC ABG pO2 161.7 H ABG Hemoglobin 10.9 L ABG Chloride 115.0 H ABG Glucose Sodium 147 H Potassium Chloride 117.5 H Carbon Dioxide 17 L BUN 67 H Creatinine 2.2 H Glucose POC Glucose 113 H Lactic Acid Calcium 7.6 L Magnesium Iron TIBC Ferritin AST Alkaline Phosphatase 185 H Lactate Dehydrogenase C-Reactive Protein NT-Pro-B Natriuret Pep Serum Total Protein Total Protein 4.3 L Albumin 2.1 L Vmpgt-4-Hateujevv PEP Interpretation PTH Intact Arterial Blood Glucose Arterial Blood Ionized Calcium Urine Creatinine Urine Total Protein Complement C3 Coronavirus (PCR) Crossmatch 09/19/20 09/19/20 09/19/20 08:50 08:50 17:01 WBC 19.2 H RBC 2.48 L Hgb 6.8 L Hct 21.0 L MCV MCH RDW 22.7 H Plt Count 55 L Lymph % (Auto) [facility] % (Auto) Lymph # (Auto) Seg Neutrophils % Seg Neuts % (Manual) Lymphocytes % (Manual) Monocytes % (Manual) Nucleated RBC % Seg Neutrophils # Seg Neutrophils # Man Lymphocytes # (Manual) Monocytes # (Manual) PT 22.5 H INR 1.97 H D-Dimer Heparin Anti-Xa Level ABG pH POC ABG pCO2 POC ABG pO2 ABG Hemoglobin ABG Chloride ABG Glucose Sodium Potassium Chloride Carbon Dioxide BUN Creatinine Glucose POC Glucose 110 H Lactic Acid Calcium Magnesium Iron TIBC Ferritin AST Alkaline Phosphatase Lactate Dehydrogenase C-Reactive Protein NT-Pro-B Natriuret Pep Serum Total Protein Total Protein Albumin Vepam-8-Loewywdmt PEP Interpretation PTH Intact Arterial Blood Glucose Arterial Blood Ionized Calcium Urine Creatinine Urine Total Protein Complement C3 Coronavirus (PCR) Crossmatch 09/19/20 09/20/20 09/20/20 21:16 04:35 06:27 WBC RBC Hgb Hct MCV MCH RDW Plt Count Lymph % (Auto) [facility] % (Auto) Lymph # (Auto) Seg Neutrophils % Seg Neuts % (Manual) Lymphocytes % (Manual) Monocytes % (Manual) Nucleated RBC % Seg Neutrophils # Seg Neutrophils # Man Lymphocytes # (Manual) Monocytes # (Manual) PT INR D-Dimer Heparin Anti-Xa Level ABG pH POC ABG pCO2 28.5 L POC ABG pO2 ABG Hemoglobin 10.6 L ABG Chloride 111.0 H ABG Glucose 154 H Sodium Potassium Chloride Carbon Dioxide BUN Creatinine Glucose POC Glucose 118 H 138 H Lactic Acid Calcium Magnesium Iron TIBC Ferritin AST Alkaline Phosphatase Lactate Dehydrogenase C-Reactive Protein NT-Pro-B Natriuret Pep Serum Total Protein Total Protein Albumin Uqgfu-6-Snkqpboba PEP Interpretation PTH Intact Arterial Blood Glucose 154 H Arterial Blood Ionized Calcium Urine Creatinine Urine Total Protein Complement C3 Coronavirus (PCR) Crossmatch 09/20/20 09/20/20 09/20/20 08:15 08:15 11:52 WBC 17.2 H RBC 3.30 L Hgb 9.2 L Hct 28.0 L D MCV MCH RDW 17.8 H Plt Count 59 L Lymph % (Auto) [facility] % (Auto) Lymph # (Auto) Seg Neutrophils % Seg Neuts % (Manual) Lymphocytes % (Manual) Monocytes % (Manual) Nucleated RBC % Seg Neutrophils # Seg Neutrophils # Man Lymphocytes # (Manual) Monocytes # (Manual) PT INR D-Dimer Heparin Anti-Xa Level ABG pH POC ABG pCO2 POC ABG pO2 ABG Hemoglobin ABG Chloride ABG Glucose Sodium Potassium Chloride 111.2 H Carbon Dioxide BUN 62 H Creatinine 2.2 H Glucose 165 H POC Glucose 150 H Lactic Acid Calcium 7.9 L Magnesium Iron TIBC Ferritin AST Alkaline Phosphatase Lactate Dehydrogenase C-Reactive Protein NT-Pro-B Natriuret Pep Serum Total Protein Total Protein Albumin Gnrcg-2-Gokvdyhqp PEP Interpretation PTH Intact Arterial Blood Glucose Arterial Blood Ionized Calcium Urine Creatinine Urine Total Protein Complement C3 Coronavirus (PCR) Crossmatch 09/20/20 09/20/20 09/21/20 17:14 21:10 01:03 WBC RBC Hgb Hct MCV MCH RDW Plt Count Lymph % (Auto) [facility] % (Auto) Lymph # (Auto) Seg Neutrophils % Seg Neuts % (Manual) Lymphocytes % (Manual) Monocytes % (Manual) Nucleated RBC % Seg Neutrophils # Seg Neutrophils # Man Lymphocytes # (Manual) Monocytes # (Manual) PT INR D-Dimer Heparin Anti-Xa Level ABG pH POC ABG pCO2 POC ABG pO2 ABG Hemoglobin ABG Chloride ABG Glucose Sodium Potassium Chloride Carbon Dioxide BUN Creatinine Glucose POC Glucose 168 H 160 H 142 H Lactic Acid Calcium Magnesium Iron TIBC Ferritin AST Alkaline Phosphatase Lactate Dehydrogenase C-Reactive Protein NT-Pro-B Natriuret Pep Serum Total Protein Total Protein Albumin Cdpey-1-Mztlldxtu PEP Interpretation PTH Intact Arterial Blood Glucose Arterial Blood Ionized Calcium Urine Creatinine Urine Total Protein Complement C3 Coronavirus (PCR) Crossmatch 09/21/20 09/21/20 09/21/20 03:25 05:14 06:12 WBC 14.9 H RBC 3.29 L Hgb 9.2 L Hct 27.7 L MCV MCH RDW 17.8 H Plt Count 65 L Lymph % (Auto) [facility] % (Auto) Lymph # (Auto) Seg Neutrophils % Seg Neuts % (Manual) 87.0 H Lymphocytes % (Manual) 5.0 L Monocytes % (Manual) 8.0 H Nucleated RBC % Seg Neutrophils # Seg Neutrophils # Man 13.0 H Lymphocytes # (Manual) 0.7 L Monocytes # (Manual) 1.2 H PT INR D-Dimer Heparin Anti-Xa Level ABG pH POC ABG pCO2 28.2 L POC ABG pO2 112.5 H ABG Hemoglobin 9.4 L ABG Chloride 110.0 H ABG Glucose 163 H Sodium Potassium Chloride Carbon Dioxide BUN Creatinine Glucose POC Glucose 129 H Lactic Acid Calcium Magnesium Iron TIBC Ferritin AST Alkaline Phosphatase Lactate Dehydrogenase C-Reactive Protein NT-Pro-B Natriuret Pep Serum Total Protein Total Protein Albumin Nvbpw-4-Qhrvyfyci PEP Interpretation PTH Intact Arterial Blood Glucose 163 H Arterial Blood Ionized Calcium Urine Creatinine Urine Total Protein Complement C3 Coronavirus (PCR) Crossmatch 09/21/20 09/21/20 09/21/20 06:12 11:48 16:59 WBC RBC Hgb Hct MCV MCH RDW Plt Count Lymph % (Auto) [facility] % (Auto) Lymph # (Auto) Seg Neutrophils % Seg Neuts % (Manual) Lymphocytes % (Manual) Monocytes % (Manual) Nucleated RBC % Seg Neutrophils # Seg Neutrophils # Man Lymphocytes # (Manual) Monocytes # (Manual) PT INR D-Dimer Heparin Anti-Xa Level ABG pH POC ABG pCO2 POC ABG pO2 ABG Hemoglobin ABG Chloride ABG Glucose Sodium Potassium Chloride 109.2 H Carbon Dioxide 20 L BUN 62 H Creatinine 2.2 H Glucose 156 H POC Glucose 149 H 146 H Lactic Acid Calcium 8.2 L Magnesium Iron TIBC Ferritin AST Alkaline Phosphatase Lactate Dehydrogenase C-Reactive Protein NT-Pro-B Natriuret Pep Serum Total Protein Total Protein Albumin Gakcm-7-Rxdbioezv PEP Interpretation PTH Intact Arterial Blood Glucose Arterial Blood Ionized Calcium Urine Creatinine Urine Total Protein Complement C3 Coronavirus (PCR) Crossmatch 09/21/20 09/22/20 23:38 04:52 WBC RBC Hgb Hct MCV MCH RDW Plt Count Lymph % (Auto) [place] % (Auto) Lymph # (Auto) Seg Neutrophils % Seg Neuts % (Manual) Lymphocytes % (Manual) Monocytes % (Manual) Nucleated RBC % Seg Neutrophils # Seg Neutrophils # Man Lymphocytes # (Manual) Monocytes # (Manual) PT INR D-Dimer Heparin Anti-Xa Level ABG pH POC ABG pCO2 POC ABG pO2 ABG Hemoglobin ABG Chloride ABG Glucose Sodium Potassium Chloride Carbon Dioxide BUN Creatinine Glucose POC Glucose 140 H 125 H Lactic Acid Calcium Magnesium Iron TIBC Ferritin AST Alkaline Phosphatase Lactate Dehydrogenase C-Reactive Protein NT-Pro-B Natriuret Pep Serum Total Protein Total Protein Albumin Tvvan-6-Lwyailxvp PEP Interpretation PTH Intact Arterial Blood Glucose Arterial Blood Ionized Calcium Urine Creatinine Urine Total Protein Complement C3 Coronavirus (PCR) Crossmatch
[2020-09-22 08:50] LABS: Platelet Count 63 K/mm3 (140-440)
[2020-09-22 08:55] LABS: Mean Platelet Volume 8.6 fl (6-12)
[2020-09-22] MEDS: PANTOPRAZOLE 40 MG INJ IV SCH ×2 (10:12→21:44)
[2020-09-22 10:14] LABS: Basophils % (Manual) 0 % (0.0-1.8); Eosinophils % (Manual) 0 % (0.0-4.3); Total Cells Counted 100
[2020-09-22 10:15] LABS: Burr Cells 1+; Hypochromasia 1+; Poikilocytosis 1+
[2020-09-22 10:18] LABS: Schistocytes 1+
[2020-09-22 10:19] LABS: Platelet Estimate Consistent w Auto
[2020-09-22] MEDS: MULTIVITAMINS 5 ML ORAL LIQUID PO SCH (11:44)
[2020-09-22] MEDS: K-LYTE 25 MEQ TABLET EFF PO SCH (11:44)
[2020-09-22] MEDS: amLODIPine 10 MG TAB PO SCH (11:44)
[2020-09-22] MEDS: CALCITRIOL 0.5 MCG CAP PO SCH (11:45)
[2020-09-22] MEDS: FERROUS SULFATE 308 MG (62mg Elemental Iron) / 7 ML ELIXIR FEEDTUBE SCH (11:45)
[2020-09-22] MEDS: SERTRALINE 50 MG TAB PO SCH (11:45)
[2020-09-22] MEDS: SODIUM BICARBONATE 650 MG TAB PO SCH (11:45)
--- NOTE | 2020-09-22 12:24 | Consultation ---
History of Present Illness Consult date: 09/22/20 Consult reason: cardiac arrest History of present illness: This is a 64-year old F with a history of peripheral vascular disease with bilateral BKA, hypertension, diabetes and chronic anemia. No prior cardiac history reported. Patient was admitted 2 weeks ago with COVID 19 viral pneumonia, acute kidney injury, bilateral lower extremity DVT in a patient with bilateral below-knee amputation, severe anemia, acute GI bleed with a HCT of 17.1. On September 17 she suffered a cardiopulmonary arrest. ACLS protocol was initiated with ROSC. Post resuscitation ECG shows sinus rhythm with non-specific T wave changes. No acute ST changes. An echocardiogram this presentation deferred due to COVID 19 viral pneumonia and isolation protocol. Patient was successfully extubated on yesterday. She is currently resting in bed without any distress. Stable sinus rhythm on telemetry. A cardiac consultation has been requested post cardiopulmonary arrest. Past History Past Medical History: anemia, diabetes, hypertension, PVD, other (Erosive esophagitis - by EGD in 2014) Past Surgical History: Other (Bilateral BKA) Social history: single. denies: smoking, alcohol abuse Family history: hypertension Medications and Allergies Allergies Allergy/AdvReac Type Severity Reaction Status Date / Time No Known Allergies Allergy Unverified 02/14/14 19:23 Home Medications Medication Instructions Recorded Confirmed Last Taken Type Aspirin [[place] Aspirin] 81 mg PO DAILY 02/14/14 02/22/14 02/14/14 11:00 History Ferrous Sulfate [Feosol 325mg] 325 mg PO DAILY 02/14/14 02/22/14 02/14/14 11:00 History Sertraline [Zoloft] 50 mg PO DAILY 02/14/14 02/22/14 02/14/14 11:00 History amLODIPine 5 mg PO DAILY 02/14/14 02/22/14 02/14/14 11:00 History hydroCHLOROthiazide 25 mg PO DAILY 02/14/14 02/22/14 02/14/14 11:00 History [Hydrochlorothiazide] Aspirin EC [Ecotrin] 325 mg PO QDAY #60 tablet 09/17/20 Unknown Rx Insulin Glargine [Lantus VIAL] 14 units SUB-Q QHS 30 Days 09/17/20 Unknown Rx Pantoprazole [Protonix TAB] 40 mg PO BIDAC #60 tablet 09/17/20 Unknown Rx calcitrioL [Rocaltrol] 0.5 mcg PO QDAY #30 capsule 09/17/20 Unknown Rx metOLazone [Zaroxolyn] 10 mg PO QDAY #30 tablet 09/17/20 Unknown Rx Active Meds: Active Medications Acetaminophen (Tylenol) 650 mg PO Q6H PRN PRN Reason: Pain, Mild (1-3) Last Admin: 09/05/20 22:50 Dose: 650 mg Documented by: Amlodipine Besylate (Amlodipine) 10 mg PO DAILY [facility] Last Admin: 09/22/20 11:44 Dose: Not Given Documented by: Lipase/Protease/Amylase ([place] Dr 10,500 Unit) 1 each FEEDTUBE PRN PRN PRN Reason: For Clogged Feeding Tube Calcitriol (Rocaltrol) 0.5 mcg PO QDAY [facility] Last Admin: 09/22/20 11:45 Dose: Not Given Documented by: Dextrose (D50w (25gm) Syringe) 50 ml IV Q30MIN PRN; Protocol PRN Reason: Hypoglycemia Ferrous Sulfate (Ferrous Sulfate) 308 mg FEEDTUBE DAILY [facility] Last Admin: 09/22/20 11:45 Dose: Not Given Documented by: Haloperidol Lactate (Haldol) 5 mg IM Q6H PRN PRN Reason: Agitation Hydralazine HCl (Apresoline) 10 mg IV Q6H PRN PRN Reason: Blood Pressure Last Admin: 09/14/20 05:46 Dose: 10 mg Documented by: Hydromorphone HCl (Dilaudid) 0.25 mg IV Q4H PRN PRN Reason: Pain, Moderate (4-6) Last Admin: 09/05/20 23:28 Dose: 0.25 mg Documented by: Sodium Chloride (Nacl 0.45% 1000 Ml) 1,000 mls @ 75 mls/hr IV DIRECT [facility] Last Admin: 09/22/20 06:31 Dose: 75 mls/hr Documented by: Insulin Human Lispro (Humalog) 0 unit SUB-Q Q6HR [facility]; Protocol Last Admin: 09/22/20 05:11 Dose: Not Given Documented by: Multivitamins (Centrum Liq) 5 ml PO QDAY [facility] Last Admin: 09/22/20 11:44 Dose: Not Given Documented by: Pantoprazole Sodium (Protonix) 40 mg IV BID [facility] Last Admin: 09/22/20 10:12 Dose: 40 mg Documented by: Potassium Bicarbonate (Klor-Con) 50 meq PO BID [facility] Last Admin: 09/22/20 11:44 Dose: Not Given Documented by: Sertraline HCl (Zoloft) 50 mg PO DAILY [facility] Last Admin: 09/22/20 11:45 Dose: Not Given Documented by: Simple Syrup (Simple Syrup) 15 ml FEEDTUBE PRN PRN PRN Reason: Hypoglycemia Simple Syrup (Simple Syrup) 30 ml FEEDTUBE PRN PRN PRN Reason: Hypoglycemia Sodium Bicarbonate (Sodium Bicarbonate) 325 mg FEEDTUBE PRN PRN PRN Reason: For Clogged Feeding Tube Sodium Bicarbonate (Sodium Bicarbonate) 650 mg PO BID [facility] Last Admin: 09/22/20 11:45 Dose: Not Given Documented by: Sodium Chloride (Sodium Chloride Flush Syringe 10 Ml) 10 ml IV BID [facility] Last Admin: 09/22/20 10:12 Dose: 10 ml Documented by: Sodium Chloride (Sodium Chloride Flush Syringe 10 Ml) 10 ml IV PRN PRN PRN Reason: LINE FLUSH Review of Systems Cardiovascular: other (deferred due to isolation protocol) Physical Examination Vital Signs BP 84/51 09/01/20 21:20 Narrative exam: Deferred due to isolation protocol. Cardiac: Positive: Reg Rate and Rhythm Results 09/22/20 08:00 09/22/20 08:00 CBC 09/22/20 Range/Units 08:00 WBC 11.4 H (4.5-11.0) K/mm3 RBC 3.07 L (3.65-5.03) M/mm3 Hgb 8.4 L (10.1-14.3) gm/dl Hct 26.3 L (30.3-42.9) % Plt Count 63 L (140-440) K/mm3 Lymph # (Auto) Consulting Software Engineer [place] # (Auto) Consulting Software Engineer Comprehensive Metabolic Panel 09/16/20 09/22/20 Range/Units 13:44 08:00 Sodium 140 (137-145) mmol/L Potassium 4.0 (3.6-5.0) mmol/L Chloride 107.5 H (98-107) mmol/L Carbon Dioxide 22 (22-30) mmol/L BUN 55 H (7-17) mg/dL Creatinine 2.1 H (0.6-1.2) mg/dL Glucose 136 H (65-100) mg/dL Calcium 8.1 L (8.4-10.2) mg/dL Albumin 1.9 L (3.8-4.8) g/dL Assessment and Plan Coronaviral pneumonia Cardiopulmonary arrest on 09/17 Acute bilateral lower extremity DVT in a patient with bilateral below-knee amp utation Severe Anemia/ GI bleed s/p transfusion of PRBCs PVD Thrombocytopenia Acute kidney injury
--- NOTE | 2020-09-22 13:59 | Progress Note ---
Assessment and Plan 1. Acute kidney injury: DIRK secondary to combination of Vasomotor nephropathy and severe sepsis. Renal US negative for hydro. Monitor renal function. Creatinine leveled off. Prior Creatinine was 1.2 in 2014. Likely CKD stage 4. Renal prognosis is guarded. Avoid nephrotoxic agents. Meds dosage based on GFR. 2. FEN: Hyperchloremic Metabolic acidosis, on Potassium bicarbonate, monitor. Hypernatremia, improved, monitor. Monitor lytes. 3. Nephrotic syndrome: Likely diabetic nephropathy. DEMARCUS and ANCA are negative. Complements appears normal. GBM Ab and SPEP pending. 4. Severe sepsis, POA, now with shock: Off pressors. 5. S/p Cardiac arrest. 6. Severe COVID infection: Seen by ID. 7. Acute hypoxic resp failure: Intubated post-arrest. S/p extubated. 8. Bilateral LE DVT, POA. 9. Microcytic anemia, POA: S/p PRBC. Monitor. Seen by GI. 10. Thrombocytopenia, POA. 11. Acute diarrhea: Likely associated with COVID-19 infection. C. difficile test negative. Subjective: Patient was seen and examined at the bedside. Examination: General appearance: well-developed, appears stated age, no distress, on restrains HEENT: JAYCE Neck: supple Respiratory: ctab Cardiology: regular, S1S2, no murmur Gastrointestinal: normoactive bowel sounds, no tenderness, not distended Integumentary: no obvious rash Neurologic: lethargic, moving extremities Ext: trace dependent edema, b/l BKA : [place] catheter Subjective Date of service: 09/22/20 Principal diagnosis: Iron Def Anemia Objective - Vital Signs Vital signs: Vital Signs - 12hr 09/22/20 09/22/20 09/22/20 02:00 03:00 03:47 Temperature 98.4 F Pulse Rate 52 L 87 Pulse Rate [ From Monitor] Respiratory 20 19 Rate Blood Pressure 169/82 144/93 O2 Sat by Pulse 99 91 Oximetry 09/22/20 09/22/20 09/22/20 04:00 05:00 06:00 Temperature Pulse Rate 65 58 L 89 Pulse Rate [ 100 H From Monitor] Respiratory 20 20 19 Rate Blood Pressure 144/93 174/70 148/90 O2 Sat by Pulse 99 100 91 Oximetry 09/22/20 09/22/20 09/22/20 07:00 08:00 08:14 Temperature 98.2 F Pulse Rate 58 L 59 L Pulse Rate [ From Monitor] Respiratory 20 17 Rate Blood Pressure 148/90 179/63 O2 Sat by Pulse 99 89 97 Oximetry 09/22/20 09/22/20 09/22/20 09:00 10:00 11:00 Temperature Pulse Rate 72 72 81 Pulse Rate [ From Monitor] Respiratory 22 13 15 Rate Blood Pressure 159/58 156/58 146/61 O2 Sat by Pulse 97 89 99 Oximetry 09/22/20 09/22/20 12:00 13:00 Temperature 98.5 F Pulse Rate 69 85 Pulse Rate [ From Monitor] Respiratory 13 21 Rate Blood Pressure 163/86 175/66 O2 Sat by Pulse 99 100 Oximetry - Lab 09/22/20 08:00 09/22/20 08:00 Most recent lab results ABG pH 7.441 (7.320-7.450) 09/21/20 03:25 Calcium 8.1 mg/dL (8.4-10.2) L 09/22/20 08:00 Phosphorus 3.50 mg/dL (2.5-4.5) 09/06/20 06:43 Magnesium 2.20 mg/dL (1.7-2.3) 09/14/20 19:57 Urine Creatinine 43.2 mg/dL (0.1-20.0) H 09/06/20 06:52 Urine Sodium 84 mmol/L 09/06/20 06:52 Urine Total Protein 298 mg/dL (5-11.8) H 09/06/20 06:52 Medications & Allergies - Medications Allergies/Adverse Reactions: Allergies No Known Allergies Allergy (Unverified 02/14/14 19:23) Home Medications: Home Medications Medication Instructions Recorded Confirmed Last Taken Type Aspirin [[place] Aspirin] 81 mg PO DAILY 02/14/14 02/22/14 02/14/14 11:00 History Ferrous Sulfate [Feosol 325mg] 325 mg PO DAILY 02/14/14 02/22/14 02/14/14 11:00 History Sertraline [Zoloft] 50 mg PO DAILY 02/14/14 02/22/14 02/14/14 11:00 History amLODIPine 5 mg PO DAILY 02/14/14 02/22/14 02/14/14 11:00 History hydroCHLOROthiazide 25 mg PO DAILY 02/14/14 02/22/14 02/14/14 11:00 History [Hydrochlorothiazide] Aspirin EC [Ecotrin] 325 mg PO QDAY #60 tablet 09/17/20 Unknown Rx Insulin Glargine [Lantus VIAL] 14 units SUB-Q QHS 30 Days 09/17/20 Unknown Rx Pantoprazole [Protonix TAB] 40 mg PO BIDAC #60 tablet 09/17/20 Unknown Rx calcitrioL [Rocaltrol] 0.5 mcg PO QDAY #30 capsule 09/17/20 Unknown Rx metOLazone [Zaroxolyn] 10 mg PO QDAY #30 tablet 09/17/20 Unknown Rx Active Medications: Generic Name Dose Route Start Last Admin Trade Name Freq PRN Reason Stop Dose Admin Acetaminophen 650 mg 09/02/20 00:30 09/05/20 22:50 Tylenol PO 650 mg Q6H PRN Administration Pain, Mild (1-3) Amlodipine Besylate 10 mg 09/21/20 12:00 09/22/20 11:44 Amlodipine PO Not Given DAILY [facility] Lipase/Protease/Amylase 1 each 09/21/20 07:53 Pancreaze 10,500 Unit FEEDTUBE PRN PRN For Clogged Feeding Tube Calcitriol 0.5 mcg 09/05/20 13:00 09/22/20 11:45 Rocaltrol PO Not Given QDAY [facility] Dextrose 50 ml 09/11/20 19:09 D50w (25gm) Syringe IV Q30MIN PRN Hypoglycemia Protocol Ferrous Sulfate 308 mg 09/21/20 10:00 09/22/20 11:45 Ferrous Sulfate FEEDTUBE Not Given DAILY [facility] Haloperidol Lactate 5 mg 09/11/20 19:10 Haldol IM Q6H PRN Agitation Hydralazine HCl 10 mg 09/10/20 22:23 09/14/20 05:46 Apresoline IV 10 mg Q6H PRN Administration Blood Pressure Hydromorphone HCl 0.25 mg 09/02/20 00:30 09/05/20 23:28 Dilaudid IV 0.25 mg Q4H PRN Administration Pain, Moderate (4-6) Sodium Chloride 1,000 mls @ 75 mls/hr 09/21/20 12:00 09/22/20 06:31 Nacl 0.45% 1000 Ml IV 75 mls/hr DIRECT JAE Administration Insulin Human Lispro 0 unit 09/19/20 12:00 09/22/20 12:32 Humalog SUB-Q Not Given Q6HR [facility] Protocol Multivitamins 5 ml 09/18/20 10:00 09/22/20 11:44 Centrum Liq PO Not Given QDAY J[facility] Pantoprazole Sodium 40 mg 09/22/20 10:00 09/22/20 10:12 Protonix IV 40 mg BID JAE Administration Potassium Bicarbonate 50 meq 09/10/20 22:00 09/22/20 11:44 Klor-Con PO Not Given BID JAE Sertraline HCl 50 mg 09/02/20 10:00 09/22/20 11:45 Zoloft PO Not Given DAILY [facility] Simple Syrup 15 ml 09/21/20 07:53 Simple Syrup FEEDTUBE PRN PRN Hypoglycemia Simple Syrup 30 ml 09/21/20 07:53 Simple Syrup FEEDTUBE PRN PRN Hypoglycemia Sodium Bicarbonate 325 mg 09/21/20 07:53 Sodium Bicarbonate FEEDTUBE PRN PRN For Clogged Feeding Tube Sodium Bicarbonate 650 mg 09/21/20 22:00 09/22/20 11:45 Sodium Bicarbonate PO Not Given BID JAE Sodium Chloride 10 ml 09/02/20 10:00 09/22/20 10:12 Sodium Chloride Flush Syringe 10 Ml IV 10 ml BID JAE Administration Sodium Chloride 10 ml 09/02/20 00:30 Sodium Chloride Flush Syringe 10 Ml IV PRN PRN LINE FLUSH
--- NOTE | 2020-09-22 17:53 | Gastroenterology Progress Note ---
Assessment and Plan Continue PPI No reported overt bleeding. However, patient's clinical status is starting to improve. Continue to monitor both clinically and with daily hemoglobin Depending upon hemoglobin trend and patient's clinical status she would benefit from EGD and colonoscopy, inpatient versus outpatient. Regarding NG tube placement, spoke with the nurse this afternoon she reports the patient's mental status is gradually improving, therefore rather than G-tube placement or endoscopic placement of an NG tube, recommend speech eval as patien t may be able to take meds/food orally shortly Regarding anticoagulation risk/benefit please see yesterday's notes. From GI standpoint if needed she would be acceptable risk for low-dose heparin drip with close monitoring - Patient Problems (1) DVT (deep venous thrombosis) Current Visit: Yes Status: Acute (2) Iron deficiency anemia due to chronic blood loss Current Visit: Yes Status: Acute Subjective Date of service: 09/22/20 Principal diagnosis: Iron Def Anemia Interval history: Hemoglobin decreased today Spoke with nurse reports no overt bleeding Patient confused cannot provide history. She is extubated. Objective - Constitutional Vitals: Temp Pulse Resp BP Pulse Ox 98.5 F 79 17 158/57 91 09/22/20 12:00 09/22/20 15:01 09/22/20 15:01 09/22/20 15:01 09/22/20 15:01 General appearance: no acute distress - Labs CBC & Chem 7: 09/22/20 08:00 09/22/20 08:00 Labs: Laboratory Results - last 24 hr 09/16/20 09/17/20 09/21/20 13:44 00:10 23:38 WBC RBC Hgb Hct MCV MCH MCHC RDW Plt Count Lymph % (Auto) [place] % (Auto) Eos % (Auto) Baso % (Auto) Lymph # (Auto) [place] # (Auto) Add Manual Diff Total Counted Seg Neutrophils % Seg Neuts % (Manual) Band Neutrophils % Lymphocytes % (Manual) Reactive Lymphs % (Man) Monocytes % (Manual) Eosinophils % (Manual) Basophils % (Manual) Metamyelocytes % Myelocytes % Promyelocytes % Blast Cells % Nucleated RBC % Seg Neutrophils # Man Band Neutrophils # Lymphocytes # (Manual) Abs React Lymphs (Man) Monocytes # (Manual) Eosinophils # (Manual) Basophils # (Manual) Metamyelocytes # Myelocytes # Promyelocytes # Blast Cells # WBC Morphology Hypersegmented Neuts Hyposegmented Neuts Hypogranular Neuts Smudge Cells Toxic Granulation Toxic Vacuolation Dohle Bodies Pelger-Huet Anomaly Ignacia Rods Platelet Estimate Clumped Platelets Plt Clumps, EDTA Large Platelets Giant Platelets Platelet Satelliting Plt Morphology Comment RBC Morphology Dimorphic RBCs Polychromasia Hypochromasia Poikilocytosis Anisocytosis Microcytosis Macrocytosis Spherocytes Pappenheimer Bodies Sickle Cells Target Cells Tear Drop Cells Ovalocytes Helmet Cells [place] Bodies Chambers Rings Flora Cells Bite Cells Crenated Cell Elliptocytes Acanthocytes (Spur) Rouleaux Hemoglobin C Crystals Schistocytes Malaria parasites [place]ina Bodies Hem Pathologist Commnt Sodium Potassium Chloride Carbon Dioxide Anion Gap BUN Creatinine Estimated GFR BUN/Creatinine Ratio Glucose POC Glucose 140 H Calcium Serum Total Protein 4.3 L Albumin 1.9 L Qifmc-7-Nouypqezb 0.5 H Gglzo-6-Ulfdfdurl 0.6 Beta Globulins 0.3 Gamma Globulins 0.8 Abnorm Protein Band 1 see below PEP Interpretation see below H DEMARCUS Screen Negative 09/22/20 09/22/20 09/22/20 04:52 08:00 08:00 WBC 11.4 H RBC 3.07 L Hgb 8.4 L Hct 26.3 L MCV 86 MCH 28 MCHC 32 RDW 19.6 H Plt Count 63 L Lymph % (Auto) Traffic Operations Engineer [place] % (Auto) Traffic Operations Engineer Eos % (Auto) Traffic Operations Engineer Baso % (Auto) Traffic Operations Engineer Lymph # (Auto) Traffic Operations Engineer [place] # (Auto) Traffic Operations Engineer Add Manual Diff Complete Total Counted 100 Seg Neutrophils % Traffic Operations Engineer Seg Neuts % (Manual) 99.0 H Band Neutrophils % 0 Lymphocytes % (Manual) 0 L Reactive Lymphs % (Man) 0 Monocytes % (Manual) 1.0 Eosinophils % (Manual) 0 Basophils % (Manual) 0 Metamyelocytes % 0 Myelocytes % 0 Promyelocytes % 0 Blast Cells % 0 Nucleated RBC % 1.0 H Seg Neutrophils # Man 11.3 H Band Neutrophils # 0.0 Lymphocytes # (Manual) 0.0 L Abs React Lymphs (Man) 0.0 Monocytes # (Manual) 0.1 Eosinophils # (Manual) 0.0 Basophils # (Manual) 0.0 Metamyelocytes # 0.0 Myelocytes # 0.0 Promyelocytes # 0.0 Blast Cells # 0.0 WBC Morphology Not Reportable Hypersegmented Neuts Not Reportable Hyposegmented Neuts Not Reportable Hypogranular Neuts Not Reportable Smudge Cells Not Reportable Toxic Granulation Not Reportable Toxic Vacuolation Not Reportable Dohle Bodies Not Reportable Pelger-Huet Anomaly Not Reportable Ignacia Rods Not Reportable Platelet Estimate Consistent w auto Clumped Platelets Not Reportable Plt Clumps, EDTA Not Reportable Large Platelets Not Reportable Giant Platelets Not Reportable Platelet Satelliting Not Reportable Plt Morphology Comment Not Reportable RBC Morphology Not Reportable Dimorphic RBCs Not Reportable Polychromasia Not Reportable Hypochromasia 1+ Poikilocytosis 1+ Anisocytosis Not Reportable Microcytosis Not Reportable Macrocytosis Not Reportable Spherocytes Not Reportable Pappenheimer Bodies Not Reportable Sickle Cells Not Reportable Target Cells Not Reportable Tear Drop Cells Not Reportable Ovalocytes Not Reportable Helmet Cells Not Reportable [place] Bodies Not Reportable Chambers Rings Not Reportable Lane Cells 1+ Bite Cells Not Reportable Crenated Cell Not Reportable Elliptocytes Not Reportable Acanthocytes (Spur) Not Reportable Rouleaux Not Reportable Hemoglobin C Crystals Not Reportable Schistocytes 1+ Malaria parasites Not Reportable [place]ina Bodies Not Reportable Hem Pathologist Commnt No Sodium 140 Potassium 4.0 Chloride 107.5 H Carbon Dioxide 22 Anion Gap 15 BUN 55 H Creatinine 2.1 H Estimated GFR 29 BUN/Creatinine Ratio 26 Glucose 136 H POC Glucose 125 H Calcium 8.1 L Serum Total Protein Albumin Smckx-1-Ineokletu Vhuzu-0-Bpgpttfvv Beta Globulins Gamma Globulins Abnorm Protein Band 1 PEP Interpretation DEMARCUS Screen 09/22/20 11:47 WBC RBC Hgb Hct MCV MCH MCHC RDW Plt Count Lymph % (Auto) [place] % (Auto) Eos % (Auto) Baso % (Auto) Lymph # (Auto) [place] # (Auto) Add Manual Diff Total Counted Seg Neutrophils % Seg Neuts % (Manual) Band Neutrophils % Lymphocytes % (Manual) Reactive Lymphs % (Man) Monocytes % (Manual) Eosinophils % (Manual) Basophils % (Manual) Metamyelocytes % Myelocytes % Promyelocytes % Blast Cells % Nucleated RBC % Seg Neutrophils # Man Band Neutrophils # Lymphocytes # (Manual) Abs React Lymphs (Man) Monocytes # (Manual) Eosinophils # (Manual) Basophils # (Manual) Metamyelocytes # Myelocytes # Promyelocytes # Blast Cells # WBC Morphology Hypersegmented Neuts Hyposegmented Neuts Hypogranular Neuts Smudge Cells Toxic Granulation Toxic Vacuolation Dohle Bodies Pelger-Huet Anomaly Ignacia Rods Platelet Estimate Clumped Platelets Plt Clumps, EDTA Large Platelets Giant Platelets Platelet Satelliting Plt Morphology Comment RBC Morphology Dimorphic RBCs Polychromasia Hypochromasia Poikilocytosis Anisocytosis Microcytosis Macrocytosis Spherocytes Pappenheimer Bodies Sickle Cells Target Cells Tear Drop Cells Ovalocytes Helmet Cells [place] Bodies Chambers Rings Flora Cells Bite Cells Crenated Cell Elliptocytes Acanthocytes (Spur) Rouleaux Hemoglobin C Crystals Schistocytes Malaria parasites [place] Bodies Hem Pathologist Commnt Sodium Potassium Chloride Carbon Dioxide Anion Gap BUN Creatinine Estimated GFR BUN/Creatinine Ratio Glucose POC Glucose 112 H Calcium Serum Total Protein Albumin Valek-3-Jifgwcqpi Uqulf-7-Ajsyceorz Beta Globulins Gamma Globulins Abnorm Protein Band 1 PEP Interpretation DEMARCUS Screen
[2020-09-23 06:41] LABS: BUN/Creatinine Ratio 25; Blood Urea Nitrogen 52 mg/dL (7-17); Calcium 8.4 mg/dL (8.4-10.2); Hemolysis Index 7
[2020-09-23] MEDS: INSULIN LISPRO 100 UNIT/ML VIAL 3 mL SUB-Q SCH ×3 (07:41→23:49)
[2020-09-23] MEDS: CALCITRIOL 0.5 MCG CAP PO SCH (10:00)
[2020-09-23] MEDS: SERTRALINE 50 MG TAB PO SCH (10:00)
[2020-09-23] MEDS: FERROUS SULFATE 308 MG (62mg Elemental Iron) / 7 ML ELIXIR FEEDTUBE SCH (10:00)
[2020-09-23] MEDS: K-LYTE 25 MEQ TABLET EFF PO SCH ×2 (10:00→23:16)
[2020-09-23] MEDS: MULTIVITAMINS 5 ML ORAL LIQUID PO SCH (10:00)
[2020-09-23] MEDS: PANTOPRAZOLE 40 MG INJ IV SCH ×2 (10:00→23:17)
[2020-09-23] MEDS: amLODIPine 10 MG TAB PO SCH (10:02)
--- NOTE | 2020-09-23 11:50 | Progress Note ---
Assessment and Plan 64 y/o female with cardiac arrest this am, now intubated, not on sedation with severe metabolic acidosis. 1. Wean FiO2 for sats >88% 2. No acute pulmonary issues so will sign off. Subjective Date of service: 09/23/20 Principal diagnosis: Iron Def Anemia Interval history: Successful transfer out of unit on yesterday. Has been stable pulm lux on floor. oxygen has been increased by 2 but no documentation of why. Objective Vital Signs - 12hr 09/23/20 09/23/20 04:35 06:14 Temperature 97.8 F Pulse Rate 61 Respiratory 20 Rate Blood Pressure 176/62 O2 Sat by Pulse 96 96 Oximetry Constitutional: comatose ENT: other (orally intubated, not on sedation) Neck: supple Ascultation: Bilateral: clear Percussion: Bilateral: not dull Cardiovascular: regular rate and rhythm Extremities: other (bilateral amputee) CBC and BMP: 09/22/20 08:00 09/23/20 05:13 ABG, PT/INR, D-dimer: ABG ABG pH 7.441 (7.320-7.450) 09/21/20 03:25 POC ABG pCO2 28.2 mmHg (32.0-48.0) L 09/21/20 03:25 POC ABG pO2 112.5 mmHg (83-108) H 09/21/20 03:25 POC ABG HCO3 18.8 09/21/20 03:25 PT/INR, D-dimer PT 22.5 Sec. (12.2-14.9) H 09/19/20 08:50 INR 1.97 (0.87-1.13) H 09/19/20 08:50 D-Dimer 1076.18 ng/mlDDU (0-234) H 09/01/20 21:55 Abnormal lab findings: Abnormal Labs 09/01/20 09/01/20 09/01/20 21:40 21:40 21:55 WBC RBC 3.42 L Hgb 7.9 L Hct 25.6 L MCV 75 L MCH 23 L RDW 35.7 H Plt Count 113 L Lymph % (Auto) Levy % (Auto) Lymph # (Auto) Seg Neutrophils % Seg Neuts % (Manual) 92.0 H Lymphocytes % (Manual) 5.0 L Monocytes % (Manual) Nucleated RBC % Seg Neutrophils # Seg Neutrophils # Man Lymphocytes # (Manual) 0.3 L Monocytes # (Manual) PT INR D-Dimer 1076.18 H Heparin Anti-Xa Level ABG pH POC ABG pCO2 POC ABG pO2 ABG Hemoglobin ABG Chloride ABG Glucose Sodium Potassium 5.1 H Chloride 117.5 H Carbon Dioxide 12 L BUN 51 H Creatinine 2.1 H Glucose POC Glucose Lactic Acid Calcium 7.8 L Magnesium Iron TIBC Ferritin AST 59 H Alkaline Phosphatase 242 H Lactate Dehydrogenase C-Reactive Protein NT-Pro-B Natriuret Pep Serum Total Protein Total Protein 5.3 L Albumin 2.5 L Kyjai-7-Xyxvkliue PEP Interpretation PTH Intact Arterial Blood Glucose Arterial Blood Ionized Calcium Urine Creatinine Urine Total Protein Complement C3 Coronavirus (PCR) Crossmatch 09/01/20 09/01/20 09/01/20 21:55 21:55 21:55 WBC RBC Hgb Hct MCV MCH RDW Plt Count Lymph % (Auto) Levy % (Auto) Lymph # (Auto) Seg Neutrophils % Seg Neuts % (Manual) Lymphocytes % (Manual) Monocytes % (Manual) Nucleated RBC % Seg Neutrophils # Seg Neutrophils # Man Lymphocytes # (Manual) Monocytes # (Manual) PT INR D-Dimer Heparin Anti-Xa Level ABG pH POC ABG pCO2 POC ABG pO2 ABG Hemoglobin ABG Chloride ABG Glucose Sodium Potassium Chloride Carbon Dioxide BUN Creatinine Glucose POC Glucose Lactic Acid Calcium Magnesium Iron TIBC Ferritin 313.5 H AST Alkaline Phosphatase Lactate Dehydrogenase 435 H C-Reactive Protein 2.30 H NT-Pro-B Natriuret Pep 50803 H Serum Total Protein Total Protein Albumin Xjzkj-2-Bkhcuefzq PEP Interpretation PTH Intact Arterial Blood Glucose Arterial Blood Ionized Calcium Urine Creatinine Urine Total Protein Complement C3 Coronavirus (PCR) Crossmatch 09/01/20 09/02/20 09/02/20 23:15 03:12 05:46 WBC RBC Hgb Hct MCV MCH RDW Plt Count Lymph % (Auto) Levy % (Auto) Lymph # (Auto) Seg Neutrophils % Seg Neuts % (Manual) Lymphocytes % (Manual) Monocytes % (Manual) Nucleated RBC % Seg Neutrophils # Seg Neutrophils # Man Lymphocytes # (Manual) Monocytes # (Manual) PT INR D-Dimer Heparin Anti-Xa Level ABG pH POC ABG pCO2 POC ABG pO2 ABG Hemoglobin ABG Chloride ABG Glucose Sodium Potassium Chloride Carbon Dioxide BUN Creatinine Glucose POC Glucose 65 L Lactic Acid 0.60 L Calcium Magnesium Iron TIBC Ferritin AST Alkaline Phosphatase Lactate Dehydrogenase C-Reactive Protein NT-Pro-B Natriuret Pep Serum Total Protein Total Protein Albumin Revbb-8-Vwrqasxzf PEP Interpretation PTH Intact Arterial Blood Glucose Arterial Blood Ionized Calcium Urine Creatinine Urine Total Protein Complement C3 Coronavirus (PCR) Crossmatch See Detail 09/02/20 09/02/20 09/02/20 06:50 07:35 08:10 WBC RBC Hgb Hct MCV MCH RDW Plt Count Lymph % (Auto) Levy % (Auto) Lymph # (Auto) Seg Neutrophils % Seg Neuts % (Manual) Lymphocytes % (Manual) Monocytes % (Manual) Nucleated RBC % Seg Neutrophils # Seg Neutrophils # Man Lymphocytes # (Manual) Monocytes # (Manual) PT INR D-Dimer Heparin Anti-Xa Level ABG pH POC ABG pCO2 POC ABG pO2 ABG Hemoglobin ABG Chloride ABG Glucose Sodium Potassium Chloride Carbon Dioxide BUN Creatinine Glucose POC Glucose 60 L 116 H Lactic Acid 0.60 L Calcium Magnesium Iron TIBC Ferritin AST Alkaline Phosphatase Lactate Dehydrogenase C-Reactive Protein NT-Pro-B Natriuret Pep Serum Total Protein Total Protein Albumin Ynylp-6-Sbbmulqgd PEP Interpretation PTH Intact Arterial Blood Glucose Arterial Blood Ionized Calcium Urine Creatinine Urine Total Protein Complement C3 Coronavirus (PCR) Crossmatch 09/02/20 09/02/20 09/02/20 08:10 08:10 12:07 WBC RBC 3.34 L Hgb 7.6 L Hct 24.7 L MCV 74 L MCH 23 L RDW 35.8 H Plt Count 110 L Lymph % (Auto) Levy % (Auto) Lymph # (Auto) Seg Neutrophils % Seg Neuts % (Manual) 97.0 H Lymphocytes % (Manual) 2.0 L Monocytes % (Manual) Nucleated RBC % Seg Neutrophils # Seg Neutrophils # Man Lymphocytes # (Manual) 0.1 L Monocytes # (Manual) PT INR D-Dimer Heparin Anti-Xa Level ABG pH POC ABG pCO2 POC ABG pO2 ABG Hemoglobin ABG Chloride ABG Glucose Sodium Potassium 5.2 H Chloride 120.1 H Carbon Dioxide 11 L BUN 51 H Creatinine 2.0 H Glucose POC Glucose 121 H Lactic Acid Calcium 7.4 L Magnesium Iron TIBC Ferritin AST Alkaline Phosphatase Lactate Dehydrogenase C-Reactive Protein NT-Pro-B Natriuret Pep Serum Total Protein Total Protein Albumin Xnzuf-5-Vamejbwih PEP Interpretation PTH Intact Arterial Blood Glucose Arterial Blood Ionized Calcium Urine Creatinine Urine Total Protein Complement C3 Coronavirus (PCR) Crossmatch 09/02/20 09/02/20 09/03/20 13:52 19:50 00:32 WBC RBC Hgb 7.9 L Hct 27.4 L MCV MCH RDW Plt Count 133 L Lymph % (Auto) Levy % (Auto) Lymph # (Auto) Seg Neutrophils % Seg Neuts % (Manual) Lymphocytes % (Manual) Monocytes % (Manual) Nucleated RBC % Seg Neutrophils # Seg Neutrophils # Man Lymphocytes # (Manual) Monocytes # (Manual) PT INR D-Dimer Heparin Anti-Xa Level 0.78 H ABG pH POC ABG pCO2 POC ABG pO2 ABG Hemoglobin ABG Chloride ABG Glucose Sodium Potassium Chloride Carbon Dioxide BUN Creatinine Glucose POC Glucose 206 H Lactic Acid Calcium Magnesium Iron TIBC Ferritin AST Alkaline Phosphatase Lactate Dehydrogenase C-Reactive Protein NT-Pro-B Natriuret Pep Serum Total Protein Total Protein Albumin Jrpdh-8-Yuymtwklv PEP Interpretation PTH Intact Arterial Blood Glucose Arterial Blood Ionized Calcium Urine Creatinine Urine Total Protein Complement C3 Coronavirus (PCR) Crossmatch 09/03/20 09/03/20 09/03/20 05:17 05:17 05:17 WBC RBC 2.87 L Hgb 6.4 L Hct 21.5 L MCV 75 L MCH 22 L RDW 35.3 H Plt Count Lymph % (Auto) Levy % (Auto) Lymph # (Auto) Seg Neutrophils % Seg Neuts % (Manual) 76.0 H Lymphocytes % (Manual) Monocytes % (Manual) Nucleated RBC % Seg Neutrophils # Seg Neutrophils # Man 7.8 H Lymphocytes # (Manual) Monocytes # (Manual) PT 17.0 H INR 1.35 H D-Dimer Heparin Anti-Xa Level 0.94 H ABG pH POC ABG pCO2 POC ABG pO2 ABG Hemoglobin ABG Chloride ABG Glucose Sodium 147 H Potassium 5.2 H Chloride 123.4 H Carbon Dioxide 11 L BUN 59 H Creatinine 2.0 H Glucose 204 H POC Glucose Lactic Acid Calcium 7.4 L Magnesium Iron TIBC Ferritin AST Alkaline Phosphatase Lactate Dehydrogenase C-Reactive Protein NT-Pro-B Natriuret Pep Serum Total Protein Total Protein Albumin Ylcyi-5-Pasjljwks PEP Interpretation PTH Intact Arterial Blood Glucose Arterial Blood Ionized Calcium Urine Creatinine Urine Total Protein Complement C3 Coronavirus (PCR) Crossmatch 09/03/20 09/03/20 09/03/20 06:05 08:48 11:43 WBC RBC Hgb Hct MCV MCH RDW Plt Count Lymph % (Auto) Levy % (Auto) Lymph # (Auto) Seg Neutrophils % Seg Neuts % (Manual) Lymphocytes % (Manual) Monocytes % (Manual) Nucleated RBC % Seg Neutrophils # Seg Neutrophils # Man Lymphocytes # (Manual) Monocytes # (Manual) PT INR D-Dimer Heparin Anti-Xa Level ABG pH POC ABG pCO2 POC ABG pO2 ABG Hemoglobin ABG Chloride ABG Glucose Sodium Potassium Chloride Carbon Dioxide BUN Creatinine Glucose POC Glucose 190 H 223 H 242 H Lactic Acid Calcium Magnesium Iron TIBC Ferritin AST Alkaline Phosphatase Lactate Dehydrogenase C-Reactive Protein NT-Pro-B Natriuret Pep Serum Total Protein Total Protein Albumin Nmnde-5-Fvobpxhfn PEP Interpretation PTH Intact Arterial Blood Glucose Arterial Blood Ionized Calcium Urine Creatinine Urine Total Protein Complement C3 Coronavirus (PCR) Crossmatch 09/03/20 09/03/20 09/04/20 16:21 23:37 05:18 WBC RBC 2.26 L Hgb 5.3 L* Hct 17.1 L* MCV 76 L MCH 24 L RDW 33.7 H Plt Count Lymph % (Auto) 8.0 L Levy % (Auto) 7.5 H Lymph # (Auto) 0.7 L Seg Neutrophils % 84.3 H Seg Neuts % (Manual) Lymphocytes % (Manual) Monocytes % (Manual) Nucleated RBC % Seg Neutrophils # Seg Neutrophils # Man Lymphocytes # (Manual) Monocytes # (Manual) PT INR D-Dimer Heparin Anti-Xa Level ABG pH POC ABG pCO2 POC ABG pO2 ABG Hemoglobin ABG Chloride ABG Glucose Sodium Potassium Chloride Carbon Dioxide BUN Creatinine Glucose POC Glucose 280 H 228 H Lactic Acid Calcium Magnesium Iron TIBC Ferritin AST Alkaline Phosphatase Lactate Dehydrogenase C-Reactive Protein NT-Pro-B Natriuret Pep Serum Total Protein Total Protein Albumin Jrlfb-9-Yznozzcku PEP Interpretation PTH Intact Arterial Blood Glucose Arterial Blood Ionized Calcium Urine Creatinine Urine Total Protein Complement C3 Coronavirus (PCR) Crossmatch 09/04/20 09/04/20 09/04/20 05:18 05:18 05:18 WBC RBC Hgb Hct MCV MCH RDW Plt Count Lymph % (Auto) Levy % (Auto) Lymph # (Auto) Seg Neutrophils % Seg Neuts % (Manual) Lymphocytes % (Manual) Monocytes % (Manual) Nucleated RBC % Seg Neutrophils # Seg Neutrophils # Man Lymphocytes # (Manual) Monocytes # (Manual) PT 19.6 H INR 1.62 H D-Dimer Heparin Anti-Xa Level ABG pH POC ABG pCO2 POC ABG pO2 ABG Hemoglobin ABG Chloride ABG Glucose Sodium 149 H Potassium 5.2 H Chloride 125.6 H Carbon Dioxide 14 L BUN 86 H Creatinine 2.3 H Glucose 232 H POC Glucose Lactic Acid Calcium 7.5 L Magnesium Iron TIBC Ferritin AST Alkaline Phosphatase 144 H Lactate Dehydrogenase C-Reactive Protein NT-Pro-B Natriuret Pep Serum Total Protein Total Protein 4.1 L D Albumin 1.9 L Uszdn-5-Xycilpiqq PEP Interpretation PTH Intact 820.4 H Arterial Blood Glucose Arterial Blood Ionized Calcium Urine Creatinine Urine Total Protein Complement C3 Coronavirus (PCR) Crossmatch 09/04/20 09/04/20 09/04/20 06:33 09:03 12:08 WBC RBC Hgb Hct MCV MCH RDW Plt Count Lymph % (Auto) Levy % (Auto) Lymph # (Auto) Seg Neutrophils % Seg Neuts % (Manual) Lymphocytes % (Manual) Monocytes % (Manual) Nucleated RBC % Seg Neutrophils # Seg Neutrophils # Man Lymphocytes # (Manual) Monocytes # (Manual) PT INR D-Dimer Heparin Anti-Xa Level ABG pH POC ABG pCO2 POC ABG pO2 ABG Hemoglobin ABG Chloride ABG Glucose Sodium Potassium Chloride Carbon Dioxide BUN Creatinine Glucose POC Glucose 224 H 264 H 247 H Lactic Acid Calcium Magnesium Iron TIBC Ferritin AST Alkaline Phosphatase Lactate Dehydrogenase C-Reactive Protein NT-Pro-B Natriuret Pep Serum Total Protein Total Protein Albumin Nqgjz-9-Lahqqtgyk PEP Interpretation PTH Intact Arterial Blood Glucose Arterial Blood Ionized Calcium Urine Creatinine Urine Total Protein Complement C3 Coronavirus (PCR) Crossmatch 09/04/20 09/04/20 09/04/20 15:01 18:58 22:28 WBC RBC Hgb 8.7 L D Hct 27.4 L D MCV MCH RDW Plt Count Lymph % (Auto) Levy % (Auto) Lymph # (Auto) Seg Neutrophils % Seg Neuts % (Manual) Lymphocytes % (Manual) Monocytes % (Manual) Nucleated RBC % Seg Neutrophils # Seg Neutrophils # Man Lymphocytes # (Manual) Monocytes # (Manual) PT INR D-Dimer Heparin Anti-Xa Level ABG pH POC ABG pCO2 POC ABG pO2 ABG Hemoglobin ABG Chloride ABG Glucose Sodium Potassium Chloride Carbon Dioxide BUN Creatinine Glucose POC Glucose 202 H 181 H Lactic Acid Calcium Magnesium Iron TIBC Ferritin AST Alkaline Phosphatase Lactate Dehydrogenase C-Reactive Protein NT-Pro-B Natriuret Pep Serum Total Protein Total Protein Albumin Yzltk-4-Infhzeczf PEP Interpretation PTH Intact Arterial Blood Glucose Arterial Blood Ionized Calcium Urine Creatinine Urine Total Protein Complement C3 Coronavirus (PCR) Crossmatch 09/05/20 09/05/20 09/05/20 00:55 07:56 08:28 WBC RBC Hgb 7.8 L Hct 23.8 L MCV MCH RDW Plt Count Lymph % (Auto) Levy % (Auto) Lymph # (Auto) Seg Neutrophils % Seg Neuts % (Manual) Lymphocytes % (Manual) Monocytes % (Manual) Nucleated RBC % Seg Neutrophils # Seg Neutrophils # Man Lymphocytes # (Manual) Monocytes # (Manual) PT 23.2 H INR 2.01 H D-Dimer Heparin Anti-Xa Level ABG pH POC ABG pCO2 POC ABG pO2 ABG Hemoglobin ABG Chloride ABG Glucose Sodium Potassium Chloride Carbon Dioxide BUN Creatinine Glucose POC Glucose 176 H Lactic Acid Calcium Magnesium Iron TIBC Ferritin AST Alkaline Phosphatase Lactate Dehydrogenase C-Reactive Protein NT-Pro-B Natriuret Pep Serum Total Protein Total Protein Albumin Hrecp-7-Pmccvgipt PEP Interpretation PTH Intact Arterial Blood Glucose Arterial Blood Ionized Calcium Urine Creatinine Urine Total Protein Complement C3 Coronavirus (PCR) Crossmatch 09/05/20 09/05/20 09/05/20 08:28 08:28 12:14 WBC 11.8 H RBC 2.93 L Hgb 7.7 L Hct 23.2 L MCV MCH 26 L RDW 28.4 H Plt Count Lymph % (Auto) 9.2 L Levy % (Auto) Lymph # (Auto) 1.1 L Seg Neutrophils % 85.4 H Seg Neuts % (Manual) Lymphocytes % (Manual) Monocytes % (Manual) Nucleated RBC % Seg Neutrophils # 10.1 H Seg Neutrophils # Man Lymphocytes # (Manual) Monocytes # (Manual) PT INR D-Dimer Heparin Anti-Xa Level ABG pH POC ABG pCO2 POC ABG pO2 ABG Hemoglobin ABG Chloride ABG Glucose Sodium 152 H Potassium Chloride 125.7 H Carbon Dioxide 13 L BUN 86 H Creatinine 2.3 H Glucose 152 H POC Glucose 131 H Lactic Acid Calcium 7.9 L Magnesium Iron TIBC Ferritin AST Alkaline Phosphatase 155 H Lactate Dehydrogenase C-Reactive Protein NT-Pro-B Natriuret Pep Serum Total Protein Total Protein 4.6 L Albumin 2.5 L Sniqj-8-Jwfuzukut PEP Interpretation PTH Intact Arterial Blood Glucose Arterial Blood Ionized Calcium Urine Creatinine Urine Total Protein Complement C3 Coronavirus (PCR) Crossmatch 09/05/20 09/05/20 09/06/20 18:58 21:22 00:03 WBC RBC Hgb 8.0 L 7.4 L Hct 25.7 L 22.8 L MCV MCH RDW Plt Count Lymph % (Auto) Levy % (Auto) Lymph # (Auto) Seg Neutrophils % Seg Neuts % (Manual) Lymphocytes % (Manual) Monocytes % (Manual) Nucleated RBC % Seg Neutrophils # Seg Neutrophils # Man Lymphocytes # (Manual) Monocytes # (Manual) PT INR D-Dimer Heparin Anti-Xa Level ABG pH POC ABG pCO2 POC ABG pO2 ABG Hemoglobin ABG Chloride ABG Glucose Sodium Potassium Chloride Carbon Dioxide BUN Creatinine Glucose POC Glucose 171 H Lactic Acid Calcium Magnesium Iron TIBC Ferritin AST Alkaline Phosphatase Lactate Dehydrogenase C-Reactive Protein NT-Pro-B Natriuret Pep Serum Total Protein Total Protein Albumin Qiccj-3-Ujpqhveyq PEP Interpretation PTH Intact Arterial Blood Glucose Arterial Blood Ionized Calcium Urine Creatinine Urine Total Protein Complement C3 Coronavirus (PCR) Crossmatch 09/06/20 09/06/20 09/06/20 06:43 06:43 06:43 WBC RBC 2.76 L Hgb 7.3 L Hct 21.9 L MCV MCH 26 L RDW 29.0 H Plt Count Lymph % (Auto) Levy % (Auto) Lymph # (Auto) Seg Neutrophils % Seg Neuts % (Manual) 94.0 H Lymphocytes % (Manual) 2.0 L Monocytes % (Manual) Nucleated RBC % 3.0 H Seg Neutrophils # Seg Neutrophils # Man 8.6 H Lymphocytes # (Manual) 0.2 L Monocytes # (Manual) PT 26.4 H INR 2.37 H D-Dimer Heparin Anti-Xa Level ABG pH POC ABG pCO2 POC ABG pO2 ABG Hemoglobin ABG Chloride ABG Glucose Sodium 151 H Potassium Chloride 125.5 H Carbon Dioxide 12 L BUN 83 H Creatinine 2.3 H Glucose 130 H POC Glucose Lactic Acid Calcium 8.2 L Magnesium Iron TIBC Ferritin AST Alkaline Phosphatase 157 H Lactate Dehydrogenase C-Reactive Protein NT-Pro-B Natriuret Pep Serum Total Protein Total Protein 4.5 L Albumin 2.4 L Ducnp-5-Kjwqzakfv PEP Interpretation PTH Intact Arterial Blood Glucose Arterial Blood Ionized Calcium Urine Creatinine Urine Total Protein Complement C3 Coronavirus (PCR) Crossmatch 09/06/20 09/06/20 09/06/20 06:52 08:31 11:31 WBC RBC Hgb Hct MCV MCH RDW Plt Count Lymph % (Auto) Levy % (Auto) Lymph # (Auto) Seg Neutrophils % Seg Neuts % (Manual) Lymphocytes % (Manual) Monocytes % (Manual) Nucleated RBC % Seg Neutrophils # Seg Neutrophils # Man Lymphocytes # (Manual) Monocytes # (Manual) PT INR D-Dimer Heparin Anti-Xa Level ABG pH POC ABG pCO2 POC ABG pO2 ABG Hemoglobin ABG Chloride ABG Glucose Sodium Potassium Chloride Carbon Dioxide BUN Creatinine Glucose POC Glucose 148 H 171 H Lactic Acid Calcium Magnesium Iron TIBC Ferritin AST Alkaline Phosphatase Lactate Dehydrogenase C-Reactive Protein NT-Pro-B Natriuret Pep Serum Total Protein Total Protein Albumin Ngmrx-1-Ttxblstgu PEP Interpretation PTH Intact Arterial Blood Glucose Arterial Blood Ionized Calcium Urine Creatinine 43.2 H Urine Total Protein 298 H Complement C3 Coronavirus (PCR) Crossmatch 09/06/20 09/06/20 09/06/20 14:59 18:03 21:36 WBC RBC Hgb 7.7 L Hct 24.5 L MCV MCH RDW Plt Count Lymph % (Auto) Levy % (Auto) Lymph # (Auto) Seg Neutrophils % Seg Neuts % (Manual) Lymphocytes % (Manual) Monocytes % (Manual) Nucleated RBC % Seg Neutrophils # Seg Neutrophils # Man Lymphocytes # (Manual) Monocytes # (Manual) PT INR D-Dimer Heparin Anti-Xa Level ABG pH POC ABG pCO2 POC ABG pO2 ABG Hemoglobin ABG Chloride ABG Glucose Sodium Potassium Chloride Carbon Dioxide BUN Creatinine Glucose POC Glucose 135 H 131 H Lactic Acid Calcium Magnesium Iron TIBC Ferritin AST Alkaline Phosphatase Lactate Dehydrogenase C-Reactive Protein NT-Pro-B Natriuret Pep Serum Total Protein Total Protein Albumin Wikgp-3-Dkoipfwuu PEP Interpretation PTH Intact Arterial Blood Glucose Arterial Blood Ionized Calcium Urine Creatinine Urine Total Protein Complement C3 Coronavirus (PCR) Crossmatch 09/07/20 09/07/20 09/07/20 01:27 09:13 09:13 WBC RBC 3.13 L Hgb 7.5 L 8.2 L Hct 23.4 L 25.5 L MCV MCH 26 L RDW 28.6 H Plt Count Lymph % (Auto) Levy % (Auto) Lymph # (Auto) Seg Neutrophils % Seg Neuts % (Manual) 94.0 H Lymphocytes % (Manual) 3.0 L Monocytes % (Manual) Nucleated RBC % 2.0 H Seg Neutrophils # Seg Neutrophils # Man 9.5 H Lymphocytes # (Manual) 0.3 L Monocytes # (Manual) PT 29.6 H INR 2.74 H D-Dimer Heparin Anti-Xa Level ABG pH POC ABG pCO2 POC ABG pO2 ABG Hemoglobin ABG Chloride ABG Glucose Sodium Potassium Chloride Carbon Dioxide BUN Creatinine Glucose POC Glucose Lactic Acid Calcium Magnesium Iron TIBC Ferritin AST Alkaline Phosphatase Lactate Dehydrogenase C-Reactive Protein NT-Pro-B Natriuret Pep Serum Total Protein Total Protein Albumin Qipwz-9-Mkxidoexg PEP Interpretation PTH Intact Arterial Blood Glucose Arterial Blood Ionized Calcium Urine Creatinine Urine Total Protein Complement C3 Coronavirus (PCR) Crossmatch 09/07/20 09/07/20 09/07/20 09:13 17:15 18:38 WBC RBC Hgb Hct MCV MCH RDW Plt Count Lymph % (Auto) Levy % (Auto) Lymph # (Auto) Seg Neutrophils % Seg Neuts % (Manual) Lymphocytes % (Manual) Monocytes % (Manual) Nucleated RBC % Seg Neutrophils # Seg Neutrophils # Man Lymphocytes # (Manual) Monocytes # (Manual) PT INR D-Dimer Heparin Anti-Xa Level ABG pH POC ABG pCO2 POC ABG pO2 ABG Hemoglobin ABG Chloride ABG Glucose Sodium 152 H Potassium Chloride 129.1 H Carbon Dioxide 13 L BUN 78 H Creatinine 2.4 H Glucose 111 H POC Glucose 59 L 107 H Lactic Acid Calcium Magnesium Iron 28 L TIBC 188 L Ferritin AST Alkaline Phosphatase 191 H Lactate Dehydrogenase C-Reactive Protein NT-Pro-B Natriuret Pep Serum Total Protein Total Protein 5.0 L Albumin 2.4 L Ypeej-4-Yrnioajqy PEP Interpretation PTH Intact Arterial Blood Glucose Arterial Blood Ionized Calcium Urine Creatinine Urine Total Protein Complement C3 Coronavirus (PCR) Crossmatch 09/07/20 09/08/20 09/08/20 Unknown 05:18 05:18 WBC 12.0 H RBC 2.93 L Hgb 7.6 L Hct 23.7 L MCV MCH 26 L RDW 29.3 H Plt Count 130 L Lymph % (Auto) Levy % (Auto) Lymph # (Auto) Seg Neutrophils % 78.8 H Seg Neuts % (Manual) Lymphocytes % (Manual) Monocytes % (Manual) Nucleated RBC % Seg Neutrophils # 9.5 H Seg Neutrophils # Man Lymphocytes # (Manual) Monocytes # (Manual) PT 34.0 H INR 3.27 H D-Dimer Heparin Anti-Xa Level ABG pH POC ABG pCO2 POC ABG pO2 ABG Hemoglobin ABG Chloride ABG Glucose Sodium Potassium Chloride Carbon Dioxide BUN Creatinine Glucose POC Glucose Lactic Acid Calcium Magnesium Iron TIBC Ferritin AST Alkaline Phosphatase Lactate Dehydrogenase C-Reactive Protein NT-Pro-B Natriuret Pep Serum Total Protein Total Protein Albumin Ucvbo-4-Ishfsnirt PEP Interpretation PTH Intact Arterial Blood Glucose Arterial Blood Ionized Calcium Urine Creatinine Urine Total Protein Complement C3 Coronavirus (PCR) Positive A Crossmatch 09/08/20 09/08/20 09/08/20 05:18 12:21 22:01 WBC RBC Hgb Hct MCV MCH RDW Plt Count Lymph % (Auto) Levy % (Auto) Lymph # (Auto) Seg Neutrophils % Seg Neuts % (Manual) Lymphocytes % (Manual) Monocytes % (Manual) Nucleated RBC % Seg Neutrophils # Seg Neutrophils # Man Lymphocytes # (Manual) Monocytes # (Manual) PT INR D-Dimer Heparin Anti-Xa Level ABG pH POC ABG pCO2 POC ABG pO2 ABG Hemoglobin ABG Chloride ABG Glucose Sodium 148 H Potassium Chloride 127.0 H Carbon Dioxide 12 L BUN 77 H Creatinine 2.3 H Glucose 60 L POC Glucose 110 H 129 H Lactic Acid Calcium Magnesium Iron TIBC Ferritin AST Alkaline Phosphatase 185 H Lactate Dehydrogenase C-Reactive Protein NT-Pro-B Natriuret Pep Serum Total Protein Total Protein 5.0 L Albumin 2.4 L Zzvzw-5-Gvlcgaocu PEP Interpretation PTH Intact Arterial Blood Glucose Arterial Blood Ionized Calcium Urine Creatinine Urine Total Protein Complement C3 Coronavirus (PCR) Crossmatch 09/09/20 09/09/20 09/09/20 09:06 09:06 09:06 WBC 11.5 H RBC 2.92 L Hgb 7.5 L Hct 23.9 L MCV MCH 26 L RDW 29.4 H Plt Count 119 L Lymph % (Auto) Levy % (Auto) Lymph # (Auto) Seg Neutrophils % Seg Neuts % (Manual) 98.0 H Lymphocytes % (Manual) 0 L Monocytes % (Manual) Nucleated RBC % Seg Neutrophils # Seg Neutrophils # Man 11.3 H Lymphocytes # (Manual) 0.0 L Monocytes # (Manual) PT 19.3 H INR 1.59 H D-Dimer Heparin Anti-Xa Level ABG pH POC ABG pCO2 POC ABG pO2 ABG Hemoglobin ABG Chloride ABG Glucose Sodium 153 H Potassium Chloride 128.7 H Carbon Dioxide 13 L BUN 70 H Creatinine 2.3 H Glucose 102 H POC Glucose Lactic Acid Calcium Magnesium Iron TIBC Ferritin AST Alkaline Phosphatase 186 H Lactate Dehydrogenase C-Reactive Protein NT-Pro-B Natriuret Pep Serum Total Protein Total Protein 4.4 L Albumin 2.4 L Xsvfk-5-Xvasawjee PEP Interpretation PTH Intact Arterial Blood Glucose Arterial Blood Ionized Calcium Urine Creatinine Urine Total Protein Complement C3 Coronavirus (PCR) Crossmatch 09/09/20 09/10/20 09/10/20 23:08 05:12 05:12 WBC 12.1 H RBC 2.66 L Hgb 6.8 L Hct 22.0 L MCV MCH 26 L RDW 29.9 H Plt Count 110 L Lymph % (Auto) Levy % (Auto) Lymph # (Auto) Seg Neutrophils % Seg Neuts % (Manual) 97.0 H Lymphocytes % (Manual) 0 L Monocytes % (Manual) Nucleated RBC % Seg Neutrophils # Seg Neutrophils # Man 11.7 H Lymphocytes # (Manual) 0.0 L Monocytes # (Manual) PT INR D-Dimer Heparin Anti-Xa Level ABG pH POC ABG pCO2 POC ABG pO2 ABG Hemoglobin ABG Chloride ABG Glucose Sodium 153 H Potassium Chloride 126.8 H Carbon Dioxide 14 L BUN 69 H Creatinine 2.2 H Glucose 129 H POC Glucose 142 H Lactic Acid Calcium 8.1 L Magnesium Iron TIBC Ferritin AST Alkaline Phosphatase 180 H Lactate Dehydrogenase C-Reactive Protein NT-Pro-B Natriuret Pep Serum Total Protein Total Protein 4.2 L Albumin 2.3 L Nqdpz-1-Lduiaqboq PEP Interpretation PTH Intact Arterial Blood Glucose Arterial Blood Ionized Calcium Urine Creatinine Urine Total Protein Complement C3 Coronavirus (PCR) Crossmatch 09/10/20 09/10/20 09/10/20 05:12 07:59 12:23 WBC RBC Hgb Hct MCV MCH RDW Plt Count Lymph % (Auto) Levy % (Auto) Lymph # (Auto) Seg Neutrophils % Seg Neuts % (Manual) Lymphocytes % (Manual) Monocytes % (Manual) Nucleated RBC % Seg Neutrophils # Seg Neutrophils # Man Lymphocytes # (Manual) Monocytes # (Manual) PT 16.7 H INR 1.32 H D-Dimer Heparin Anti-Xa Level ABG pH POC ABG pCO2 POC ABG pO2 ABG Hemoglobin ABG Chloride ABG Glucose Sodium Potassium Chloride Carbon Dioxide BUN Creatinine Glucose POC Glucose 162 H 148 H Lactic Acid Calcium Magnesium Iron TIBC Ferritin AST Alkaline Phosphatase Lactate Dehydrogenase C-Reactive Protein NT-Pro-B Natriuret Pep Serum Total Protein Total Protein Albumin Jpqnr-1-Xkqosfkhh PEP Interpretation PTH Intact Arterial Blood Glucose Arterial Blood Ionized Calcium Urine Creatinine Urine Total Protein Complement C3 Coronavirus (PCR) Crossmatch 09/10/20 09/10/20 09/10/20 13:48 17:04 21:55 WBC RBC Hgb Hct MCV MCH RDW Plt Count Lymph % (Auto) Levy % (Auto) Lymph # (Auto) Seg Neutrophils % Seg Neuts % (Manual) Lymphocytes % (Manual) Monocytes % (Manual) Nucleated RBC % Seg Neutrophils # Seg Neutrophils # Man Lymphocytes # (Manual) Monocytes # (Manual) PT INR D-Dimer Heparin Anti-Xa Level ABG pH POC ABG pCO2 POC ABG pO2 ABG Hemoglobin ABG Chloride ABG Glucose Sodium Potassium Chloride Carbon Dioxide BUN Creatinine Glucose POC Glucose 162 H 155 H Lactic Acid Calcium Magnesium Iron TIBC Ferritin AST Alkaline Phosphatase Lactate Dehydrogenase C-Reactive Protein NT-Pro-B Natriuret Pep Serum Total Protein Total Protein Albumin Lxbcz-1-Lnocpugsm PEP Interpretation PTH Intact Arterial Blood Glucose Arterial Blood Ionized Calcium Urine Creatinine Urine Total Protein Complement C3 Coronavirus (PCR) Crossmatch See Detail 09/11/20 09/11/20 09/11/20 08:25 08:25 08:25 WBC 13.2 H RBC 2.68 L Hgb 7.1 L Hct 21.7 L MCV MCH 26 L RDW 31.2 H Plt Count 92 L Lymph % (Auto) Levy % (Auto) Lymph # (Auto) Seg Neutrophils % Seg Neuts % (Manual) 97.0 H Lymphocytes % (Manual) 0 L Monocytes % (Manual) Nucleated RBC % 1.0 H Seg Neutrophils # Seg Neutrophils # Man 12.8 H Lymphocytes # (Manual) 0.0 L Monocytes # (Manual) PT 18.0 H INR 1.46 H D-Dimer Heparin Anti-Xa Level ABG pH POC ABG pCO2 POC ABG pO2 ABG Hemoglobin ABG Chloride ABG Glucose Sodium 151 H Potassium Chloride 126.7 H Carbon Dioxide 14 L BUN 72 H Creatinine 2.1 H Glucose POC Glucose Lactic Acid Calcium 8.1 L Magnesium Iron TIBC Ferritin AST Alkaline Phosphatase Lactate Dehydrogenase C-Reactive Protein NT-Pro-B Natriuret Pep Serum Total Protein Total Protein Albumin Nozyu-2-Qowxameah PEP Interpretation PTH Intact Arterial Blood Glucose Arterial Blood Ionized Calcium Urine Creatinine Urine Total Protein Complement C3 Coronavirus (PCR) Crossmatch 09/11/20 09/11/20 09/11/20 13:40 17:50 19:24 WBC RBC Hgb Hct MCV MCH RDW Plt Count Lymph % (Auto) Levy % (Auto) Lymph # (Auto) Seg Neutrophils % Seg Neuts % (Manual) Lymphocytes % (Manual) Monocytes % (Manual) Nucleated RBC % Seg Neutrophils # Seg Neutrophils # Man Lymphocytes # (Manual) Monocytes # (Manual) PT INR D-Dimer Heparin Anti-Xa Level ABG pH POC ABG pCO2 POC ABG pO2 ABG Hemoglobin ABG Chloride ABG Glucose Sodium Potassium Chloride Carbon Dioxide BUN Creatinine Glucose POC Glucose 67 L 52 L 193 H Lactic Acid Calcium Magnesium Iron TIBC Ferritin AST Alkaline Phosphatase Lactate Dehydrogenase C-Reactive Protein NT-Pro-B Natriuret Pep Serum Total Protein Total Protein Albumin Sdyyk-5-Ggmidtxcg PEP Interpretation PTH Intact Arterial Blood Glucose Arterial Blood Ionized Calcium Urine Creatinine Urine Total Protein Complement C3 Coronavirus (PCR) Crossmatch 09/11/20 09/12/20 09/12/20 21:24 06:16 06:16 WBC RBC Hgb Hct MCV MCH RDW Plt Count Lymph % (Auto) Levy % (Auto) Lymph # (Auto) Seg Neutrophils % Seg Neuts % (Manual) Lymphocytes % (Manual) Monocytes % (Manual) Nucleated RBC % Seg Neutrophils # Seg Neutrophils # Man Lymphocytes # (Manual) Monocytes # (Manual) PT 16.7 H INR 1.34 H D-Dimer Heparin Anti-Xa Level ABG pH POC ABG pCO2 POC ABG pO2 ABG Hemoglobin ABG Chloride ABG Glucose Sodium 149 H Potassium Chloride 124.7 H Carbon Dioxide 15 L BUN 67 H Creatinine 2.0 H Glucose 134 H POC Glucose 184 H Lactic Acid Calcium 8.1 L Magnesium Iron TIBC Ferritin AST Alkaline Phosphatase Lactate Dehydrogenase C-Reactive Protein NT-Pro-B Natriuret Pep Serum Total Protein Total Protein Albumin Dqict-9-Vrdkyxqeg PEP Interpretation PTH Intact Arterial Blood Glucose Arterial Blood Ionized Calcium Urine Creatinine Urine Total Protein Complement C3 Coronavirus (PCR) Crossmatch 09/12/20 09/12/20 09/12/20 06:16 08:06 11:11 WBC 17.4 H RBC 2.55 L Hgb 6.7 L Hct 22.3 L MCV MCH 26 L RDW 31.8 H Plt Count 104 L Lymph % (Auto) Levy % (Auto) Lymph # (Auto) Seg Neutrophils % Seg Neuts % (Manual) 94.0 H Lymphocytes % (Manual) 1.0 L Monocytes % (Manual) Nucleated RBC % 2.0 H Seg Neutrophils # Seg Neutrophils # Man 16.4 H Lymphocytes # (Manual) 0.2 L Monocytes # (Manual) PT INR D-Dimer Heparin Anti-Xa Level ABG pH POC ABG pCO2 POC ABG pO2 ABG Hemoglobin ABG Chloride ABG Glucose Sodium Potassium Chloride Carbon Dioxide BUN Creatinine Glucose POC Glucose 127 H 128 H Lactic Acid Calcium Magnesium Iron TIBC Ferritin AST Alkaline Phosphatase Lactate Dehydrogenase C-Reactive Protein NT-Pro-B Natriuret Pep Serum Total Protein Total Protein Albumin Zerqr-0-Oyvemqgxk PEP Interpretation PTH Intact Arterial Blood Glucose Arterial Blood Ionized Calcium Urine Creatinine Urine Total Protein Complement C3 Coronavirus (PCR) Crossmatch 09/12/20 09/13/20 09/13/20 16:30 00:02 07:26 WBC RBC Hgb Hct MCV MCH RDW Plt Count Lymph % (Auto) Levy % (Auto) Lymph # (Auto) Seg Neutrophils % Seg Neuts % (Manual) Lymphocytes % (Manual) Monocytes % (Manual) Nucleated RBC % Seg Neutrophils # Seg Neutrophils # Man Lymphocytes # (Manual) Monocytes # (Manual) PT 19.5 H INR 1.63 H D-Dimer Heparin Anti-Xa Level ABG pH POC ABG pCO2 POC ABG pO2 ABG Hemoglobin ABG Chloride ABG Glucose Sodium Potassium Chloride Carbon Dioxide BUN Creatinine Glucose POC Glucose 145 H 247 H Lactic Acid Calcium Magnesium Iron TIBC Ferritin AST Alkaline Phosphatase Lactate Dehydrogenase C-Reactive Protein NT-Pro-B Natriuret Pep Serum Total Protein Total Protein Albumin Mnaod-1-Rrmguwvie PEP Interpretation PTH Intact Arterial Blood Glucose Arterial Blood Ionized Calcium Urine Creatinine Urine Total Protein Complement C3 Coronavirus (PCR) Crossmatch 09/13/20 09/13/20 09/13/20 07:26 09:56 10:07 WBC 15.3 H RBC 2.62 L Hgb 7.1 L Hct 22.6 L MCV MCH 27 L RDW 28.7 H Plt Count 89 L Lymph % (Auto) Levy % (Auto) Lymph # (Auto) Seg Neutrophils % Seg Neuts % (Manual) Lymphocytes % (Manual) Monocytes % (Manual) Nucleated RBC % Seg Neutrophils # Seg Neutrophils # Man Lymphocytes # (Manual) Monocytes # (Manual) PT INR D-Dimer Heparin Anti-Xa Level ABG pH POC ABG pCO2 POC ABG pO2 ABG Hemoglobin ABG Chloride ABG Glucose Sodium 146 H Potassium Chloride 121.3 H Carbon Dioxide 13 L BUN 67 H Creatinine 1.8 H Glucose 194 H POC Glucose 233 H Lactic Acid Calcium 8.2 L Magnesium 1.40 L Iron TIBC Ferritin AST Alkaline Phosphatase Lactate Dehydrogenase C-Reactive Protein NT-Pro-B Natriuret Pep Serum Total Protein Total Protein Albumin Hsmuo-7-Duztocjmv PEP Interpretation PTH Intact Arterial Blood Glucose Arterial Blood Ionized Calcium Urine Creatinine Urine Total Protein Complement C3 Coronavirus (PCR) Crossmatch 09/13/20 09/13/20 09/14/20 13:37 17:17 00:42 WBC RBC Hgb Hct MCV MCH RDW Plt Count Lymph % (Auto) Levy % (Auto) Lymph # (Auto) Seg Neutrophils % Seg Neuts % (Manual) Lymphocytes % (Manual) Monocytes % (Manual) Nucleated RBC % Seg Neutrophils # Seg Neutrophils # Man Lymphocytes # (Manual) Monocytes # (Manual) PT INR D-Dimer Heparin Anti-Xa Level ABG pH POC ABG pCO2 POC ABG pO2 ABG Hemoglobin ABG Chloride ABG Glucose Sodium Potassium Chloride Carbon Dioxide BUN Creatinine Glucose POC Glucose 181 H 148 H 200 H Lactic Acid Calcium Magnesium Iron TIBC Ferritin AST Alkaline Phosphatase Lactate Dehydrogenase C-Reactive Protein NT-Pro-B Natriuret Pep Serum Total Protein Total Protein Albumin Arssl-9-Bgxdeinqb PEP Interpretation PTH Intact Arterial Blood Glucose Arterial Blood Ionized Calcium Urine Creatinine Urine Total Protein Complement C3 Coronavirus (PCR) Crossmatch 09/14/20 09/14/20 09/14/20 10:08 14:54 19:57 WBC RBC Hgb Hct MCV MCH RDW Plt Count Lymph % (Auto) Levy % (Auto) Lymph # (Auto) Seg Neutrophils % Seg Neuts % (Manual) Lymphocytes % (Manual) Monocytes % (Manual) Nucleated RBC % Seg Neutrophils # Seg Neutrophils # Man Lymphocytes # (Manual) Monocytes # (Manual) PT 19.4 H INR 1.62 H D-Dimer Heparin Anti-Xa Level ABG pH POC ABG pCO2 POC ABG pO2 ABG Hemoglobin ABG Chloride ABG Glucose Sodium Potassium Chloride Carbon Dioxide BUN Creatinine Glucose POC Glucose 204 H 138 H Lactic Acid Calcium Magnesium Iron TIBC Ferritin AST Alkaline Phosphatase Lactate Dehydrogenase C-Reactive Protein NT-Pro-B Natriuret Pep Serum Total Protein Total Protein Albumin Hlcjj-8-Ruesypaiv PEP Interpretation PTH Intact Arterial Blood Glucose Arterial Blood Ionized Calcium Urine Creatinine Urine Total Protein Complement C3 Coronavirus (PCR) Crossmatch 09/14/20 09/14/20 09/15/20 19:57 23:02 08:34 WBC RBC Hgb Hct MCV MCH RDW Plt Count Lymph % (Auto) Levy % (Auto) Lymph # (Auto) Seg Neutrophils % Seg Neuts % (Manual) Lymphocytes % (Manual) Monocytes % (Manual) Nucleated RBC % Seg Neutrophils # Seg Neutrophils # Man Lymphocytes # (Manual) Monocytes # (Manual) PT INR D-Dimer Heparin Anti-Xa Level ABG pH POC ABG pCO2 POC ABG pO2 ABG Hemoglobin ABG Chloride ABG Glucose Sodium Potassium Chloride 117.8 H Carbon Dioxide 10 L BUN 26 H Creatinine 1.8 H Glucose 132 H POC Glucose 173 H 151 H Lactic Acid Calcium 8.2 L Magnesium Iron TIBC Ferritin AST Alkaline Phosphatase Lactate Dehydrogenase C-Reactive Protein NT-Pro-B Natriuret Pep Serum Total Protein Total Protein Albumin Lovrv-9-Dktlkhhhi PEP Interpretation PTH Intact Arterial Blood Glucose Arterial Blood Ionized Calcium Urine Creatinine Urine Total Protein Complement C3 Coronavirus (PCR) Crossmatch 09/16/20 09/16/20 09/16/20 09:30 13:17 13:44 WBC RBC Hgb Hct MCV MCH RDW Plt Count Lymph % (Auto) Levy % (Auto) Lymph # (Auto) Seg Neutrophils % Seg Neuts % (Manual) Lymphocytes % (Manual) Monocytes % (Manual) Nucleated RBC % Seg Neutrophils # Seg Neutrophils # Man Lymphocytes # (Manual) Monocytes # (Manual) PT INR D-Dimer Heparin Anti-Xa Level ABG pH POC ABG pCO2 POC ABG pO2 ABG Hemoglobin ABG Chloride ABG Glucose Sodium Potassium Chloride 115.8 H Carbon Dioxide 16 L BUN 53 H Creatinine 1.8 H Glucose 148 H POC Glucose 114 H 130 H Lactic Acid Calcium 8.0 L Magnesium Iron TIBC Ferritin AST Alkaline Phosphatase Lactate Dehydrogenase C-Reactive Protein NT-Pro-B Natriuret Pep Serum Total Protein Total Protein Albumin Qqyke-4-Amwqlthfg PEP Interpretation PTH Intact Arterial Blood Glucose Arterial Blood Ionized Calcium Urine Creatinine Urine Total Protein Complement C3 Coronavirus (PCR) Crossmatch 09/16/20 09/16/20 09/16/20 13:44 13:44 16:49 WBC RBC 2.67 L Hgb 7.3 L Hct 22.0 L MCV MCH 27 L RDW 29.3 H Plt Count 65 L Lymph % (Auto) Levy % (Auto) Lymph # (Auto) Seg Neutrophils % Seg Neuts % (Manual) Lymphocytes % (Manual) Monocytes % (Manual) Nucleated RBC % Seg Neutrophils # Seg Neutrophils # Man Lymphocytes # (Manual) Monocytes # (Manual) PT INR D-Dimer Heparin Anti-Xa Level ABG pH POC ABG pCO2 POC ABG pO2 ABG Hemoglobin ABG Chloride ABG Glucose Sodium Potassium Chloride Carbon Dioxide BUN Creatinine Glucose POC Glucose 171 H Lactic Acid Calcium Magnesium Iron TIBC Ferritin AST Alkaline Phosphatase Lactate Dehydrogenase C-Reactive Protein NT-Pro-B Natriuret Pep Serum Total Protein 4.3 L Total Protein Albumin 1.9 L Jrljt-5-Hqikjdybz 0.5 H PEP Interpretation see below H PTH Intact Arterial Blood Glucose Arterial Blood Ionized Calcium Urine Creatinine Urine Total Protein Complement C3 Coronavirus (PCR) Crossmatch 09/16/20 09/17/20 09/17/20 22:46 00:10 03:15 WBC RBC Hgb Hct MCV MCH RDW Plt Count Lymph % (Auto) Levy % (Auto) Lymph # (Auto) Seg Neutrophils % Seg Neuts % (Manual) Lymphocytes % (Manual) Monocytes % (Manual) Nucleated RBC % Seg Neutrophils # Seg Neutrophils # Man Lymphocytes # (Manual) Monocytes # (Manual) PT INR D-Dimer Heparin Anti-Xa Level ABG pH POC ABG pCO2 POC ABG pO2 ABG Hemoglobin ABG Chloride ABG Glucose Sodium 147 H Potassium Chloride 120.9 H Carbon Dioxide 15 L BUN 54 H Creatinine 1.7 H Glucose 125 H POC Glucose 157 H Lactic Acid Calcium 7.8 L Magnesium Iron TIBC Ferritin AST Alkaline Phosphatase Lactate Dehydrogenase C-Reactive Protein NT-Pro-B Natriuret Pep Serum Total Protein Total Protein Albumin Fjfvh-0-Qlyiuyhaf PEP Interpretation PTH Intact Arterial Blood Glucose Arterial Blood Ionized Calcium Urine Creatinine Urine Total Protein Complement C3 82 L Coronavirus (PCR) Crossmatch 09/17/20 09/17/20 09/17/20 11:42 11:46 13:49 WBC 21.0 H RBC 2.53 L Hgb 6.9 L Hct 21.1 L MCV MCH 27 L RDW 29.1 H Plt Count 73 L Lymph % (Auto) Levy % (Auto) Lymph # (Auto) Seg Neutrophils % Seg Neuts % (Manual) Lymphocytes % (Manual) Monocytes % (Manual) Nucleated RBC % Seg Neutrophils # Seg Neutrophils # Man Lymphocytes # (Manual) Monocytes # (Manual) PT INR D-Dimer Heparin Anti-Xa Level ABG pH 7.172 L POC ABG pCO2 POC ABG pO2 456.0 H ABG Hemoglobin 6.8 L ABG Chloride 119.0 H ABG Glucose 143 H Sodium Potassium Chloride Carbon Dioxide BUN Creatinine Glucose POC Glucose 116 H Lactic Acid Calcium Magnesium Iron TIBC Ferritin AST Alkaline Phosphatase Lactate Dehydrogenase C-Reactive Protein NT-Pro-B Natriuret Pep Serum Total Protein Total Protein Albumin Fzgtn-3-Hymikebpc PEP Interpretation PTH Intact Arterial Blood Glucose 143 H Arterial Blood Ionized Calcium Urine Creatinine Urine Total Protein Complement C3 Coronavirus (PCR) Crossmatch 09/17/20 09/17/20 09/17/20 13:49 13:49 17:42 WBC RBC Hgb Hct MCV MCH RDW Plt Count Lymph % (Auto) Levy % (Auto) Lymph # (Auto) Seg Neutrophils % Seg Neuts % (Manual) Lymphocytes % (Manual) Monocytes % (Manual) Nucleated RBC % Seg Neutrophils # Seg Neutrophils # Man Lymphocytes # (Manual) Monocytes # (Manual) PT INR D-Dimer Heparin Anti-Xa Level ABG pH POC ABG pCO2 POC ABG pO2 ABG Hemoglobin ABG Chloride ABG Glucose Sodium 148 H Potassium Chloride 117.9 H Carbon Dioxide 16 L BUN 59 H Creatinine 1.9 H Glucose 126 H POC Glucose 127 H Lactic Acid Calcium 7.6 L Magnesium Iron TIBC Ferritin AST Alkaline Phosphatase Lactate Dehydrogenase C-Reactive Protein NT-Pro-B Natriuret Pep Serum Total Protein Total Protein Albumin Czefz-3-Bgqjoldvo PEP Interpretation PTH Intact Arterial Blood Glucose Arterial Blood Ionized Calcium Urine Creatinine Urine Total Protein Complement C3 Coronavirus (PCR) Crossmatch See Detail 09/17/20 09/17/20 09/17/20 21:06 22:19 Unknown WBC RBC Hgb 7.4 L Hct 23.3 L MCV MCH RDW Plt Count Lymph % (Auto) Levy % (Auto) Lymph # (Auto) Seg Neutrophils % Seg Neuts % (Manual) Lymphocytes % (Manual) Monocytes % (Manual) Nucleated RBC % Seg Neutrophils # Seg Neutrophils # Man Lymphocytes # (Manual) Monocytes # (Manual) PT INR D-Dimer Heparin Anti-Xa Level ABG pH POC ABG pCO2 POC ABG pO2 ABG Hemoglobin ABG Chloride ABG Glucose Sodium Potassium Chloride Carbon Dioxide BUN Creatinine Glucose POC Glucose 138 H Lactic Acid Calcium Magnesium Iron TIBC Ferritin AST Alkaline Phosphatase Lactate Dehydrogenase C-Reactive Protein NT-Pro-B Natriuret Pep Serum Total Protein Total Protein Albumin Wykwz-4-Undshnvul PEP Interpretation PTH Intact Arterial Blood Glucose Arterial Blood Ionized Calcium Urine Creatinine Urine Total Protein Complement C3 Coronavirus (PCR) Positive A Crossmatch 09/18/20 09/18/20 09/18/20 04:00 04:14 05:02 WBC RBC Hgb Hct MCV MCH RDW Plt Count Lymph % (Auto) Levy % (Auto) Lymph # (Auto) Seg Neutrophils % Seg Neuts % (Manual) Lymphocytes % (Manual) Monocytes % (Manual) Nucleated RBC % Seg Neutrophils # Seg Neutrophils # Man Lymphocytes # (Manual) Monocytes # (Manual) PT INR D-Dimer Heparin Anti-Xa Level ABG pH POC ABG pCO2 27.5 L POC ABG pO2 143.4 H ABG Hemoglobin 7.7 L ABG Chloride 120.0 H ABG Glucose 169 H Sodium 149 H Potassium Chloride 118.6 H Carbon Dioxide 18 L BUN 65 H Creatinine 1.9 H Glucose 164 H POC Glucose 136 H Lactic Acid Calcium 7.6 L Magnesium Iron TIBC Ferritin AST Alkaline Phosphatase Lactate Dehydrogenase C-Reactive Protein NT-Pro-B Natriuret Pep Serum Total Protein Total Protein Albumin Zxfyh-4-Kksitqisl PEP Interpretation PTH Intact Arterial Blood Glucose 169 H Arterial Blood Ionized Calcium 4.4 L Urine Creatinine Urine Total Protein Complement C3 Coronavirus (PCR) Crossmatch 09/18/20 09/18/20 09/18/20 12:30 12:30 12:35 WBC 17.3 H RBC 2.51 L Hgb 6.8 L Hct 20.9 L MCV MCH 27 L RDW 24.1 H Plt Count 62 L Lymph % (Auto) Levy % (Auto) Lymph # (Auto) Seg Neutrophils % Seg Neuts % (Manual) Lymphocytes % (Manual) Monocytes % (Manual) Nucleated RBC % Seg Neutrophils # Seg Neutrophils # Man Lymphocytes # (Manual) Monocytes # (Manual) PT 22.3 H INR 1.94 H D-Dimer Heparin Anti-Xa Level ABG pH POC ABG pCO2 POC ABG pO2 ABG Hemoglobin ABG Chloride ABG Glucose Sodium Potassium Chloride Carbon Dioxide BUN Creatinine Glucose POC Glucose 121 H Lactic Acid Calcium Magnesium Iron TIBC Ferritin AST Alkaline Phosphatase Lactate Dehydrogenase C-Reactive Protein NT-Pro-B Natriuret Pep Serum Total Protein Total Protein Albumin Dfacd-3-Adrhcxgzj PEP Interpretation PTH Intact Arterial Blood Glucose Arterial Blood Ionized Calcium Urine Creatinine Urine Total Protein Complement C3 Coronavirus (PCR) Crossmatch 09/18/20 09/19/20 09/19/20 21:12 04:13 04:29 WBC RBC Hgb Hct MCV MCH RDW Plt Count Lymph % (Auto) Levy % (Auto) Lymph # (Auto) Seg Neutrophils % Seg Neuts % (Manual) Lymphocytes % (Manual) Monocytes % (Manual) Nucleated RBC % Seg Neutrophils # Seg Neutrophils # Man Lymphocytes # (Manual) Monocytes # (Manual) PT INR D-Dimer Heparin Anti-Xa Level ABG pH POC ABG pCO2 30.0 L POC ABG pO2 161.7 H ABG Hemoglobin 10.9 L ABG Chloride 115.0 H ABG Glucose Sodium 147 H Potassium Chloride 117.5 H Carbon Dioxide 17 L BUN 67 H Creatinine 2.2 H Glucose POC Glucose 113 H Lactic Acid Calcium 7.6 L Magnesium Iron TIBC Ferritin AST Alkaline Phosphatase 185 H Lactate Dehydrogenase C-Reactive Protein NT-Pro-B Natriuret Pep Serum Total Protein Total Protein 4.3 L Albumin 2.1 L Ihton-8-Gzgfebzcu PEP Interpretation PTH Intact Arterial Blood Glucose Arterial Blood Ionized Calcium Urine Creatinine Urine Total Protein Complement C3 Coronavirus (PCR) Crossmatch 09/19/20 09/19/20 09/19/20 08:50 08:50 17:01 WBC 19.2 H RBC 2.48 L Hgb 6.8 L Hct 21.0 L MCV MCH RDW 22.7 H Plt Count 55 L Lymph % (Auto) Levy % (Auto) Lymph # (Auto) Seg Neutrophils % Seg Neuts % (Manual) Lymphocytes % (Manual) Monocytes % (Manual) Nucleated RBC % Seg Neutrophils # Seg Neutrophils # Man Lymphocytes # (Manual) Monocytes # (Manual) PT 22.5 H INR 1.97 H D-Dimer Heparin Anti-Xa Level ABG pH POC ABG pCO2 POC ABG pO2 ABG Hemoglobin ABG Chloride ABG Glucose Sodium Potassium Chloride Carbon Dioxide BUN Creatinine Glucose POC Glucose 110 H Lactic Acid Calcium Magnesium Iron TIBC Ferritin AST Alkaline Phosphatase Lactate Dehydrogenase C-Reactive Protein NT-Pro-B Natriuret Pep Serum Total Protein Total Protein Albumin Onhjk-0-Whgfbznxf PEP Interpretation PTH Intact Arterial Blood Glucose Arterial Blood Ionized Calcium Urine Creatinine Urine Total Protein Complement C3 Coronavirus (PCR) Crossmatch 09/19/20 09/20/20 09/20/20 21:16 04:35 06:27 WBC RBC Hgb Hct MCV MCH RDW Plt Count Lymph % (Auto) Levy % (Auto) Lymph # (Auto) Seg Neutrophils % Seg Neuts % (Manual) Lymphocytes % (Manual) Monocytes % (Manual) Nucleated RBC % Seg Neutrophils # Seg Neutrophils # Man Lymphocytes # (Manual) Monocytes # (Manual) PT INR D-Dimer Heparin Anti-Xa Level ABG pH POC ABG pCO2 28.5 L POC ABG pO2 ABG Hemoglobin 10.6 L ABG Chloride 111.0 H ABG Glucose 154 H Sodium Potassium Chloride Carbon Dioxide BUN Creatinine Glucose POC Glucose 118 H 138 H Lactic Acid Calcium Magnesium Iron TIBC Ferritin AST Alkaline Phosphatase Lactate Dehydrogenase C-Reactive Protein NT-Pro-B Natriuret Pep Serum Total Protein Total Protein Albumin Wqzie-2-Bcbqkzwty PEP Interpretation PTH Intact Arterial Blood Glucose 154 H Arterial Blood Ionized Calcium Urine Creatinine Urine Total Protein Complement C3 Coronavirus (PCR) Crossmatch 09/20/20 09/20/20 09/20/20 08:15 08:15 11:52 WBC 17.2 H RBC 3.30 L Hgb 9.2 L Hct 28.0 L D MCV MCH RDW 17.8 H Plt Count 59 L Lymph % (Auto) Levy % (Auto) Lymph # (Auto) Seg Neutrophils % Seg Neuts % (Manual) Lymphocytes % (Manual) Monocytes % (Manual) Nucleated RBC % Seg Neutrophils # Seg Neutrophils # Man Lymphocytes # (Manual) Monocytes # (Manual) PT INR D-Dimer Heparin Anti-Xa Level ABG pH POC ABG pCO2 POC ABG pO2 ABG Hemoglobin ABG Chloride ABG Glucose Sodium Potassium Chloride 111.2 H Carbon Dioxide BUN 62 H Creatinine 2.2 H Glucose 165 H POC Glucose 150 H Lactic Acid Calcium 7.9 L Magnesium Iron TIBC Ferritin AST Alkaline Phosphatase Lactate Dehydrogenase C-Reactive Protein NT-Pro-B Natriuret Pep Serum Total Protein Total Protein Albumin Jslsh-9-Owskjtqtf PEP Interpretation PTH Intact Arterial Blood Glucose Arterial Blood Ionized Calcium Urine Creatinine Urine Total Protein Complement C3 Coronavirus (PCR) Crossmatch 09/20/20 09/20/20 09/21/20 17:14 21:10 01:03 WBC RBC Hgb Hct MCV MCH RDW Plt Count Lymph % (Auto) Levy % (Auto) Lymph # (Auto) Seg Neutrophils % Seg Neuts % (Manual) Lymphocytes % (Manual) Monocytes % (Manual) Nucleated RBC % Seg Neutrophils # Seg Neutrophils # Man Lymphocytes # (Manual) Monocytes # (Manual) PT INR D-Dimer Heparin Anti-Xa Level ABG pH POC ABG pCO2 POC ABG pO2 ABG Hemoglobin ABG Chloride ABG Glucose Sodium Potassium Chloride Carbon Dioxide BUN Creatinine Glucose POC Glucose 168 H 160 H 142 H Lactic Acid Calcium Magnesium Iron TIBC Ferritin AST Alkaline Phosphatase Lactate Dehydrogenase C-Reactive Protein NT-Pro-B Natriuret Pep Serum Total Protein Total Protein Albumin Zgtzi-1-Sosclryew PEP Interpretation PTH Intact Arterial Blood Glucose Arterial Blood Ionized Calcium Urine Creatinine Urine Total Protein Complement C3 Coronavirus (PCR) Crossmatch 09/21/20 09/21/20 09/21/20 03:25 05:14 06:12 WBC 14.9 H RBC 3.29 L Hgb 9.2 L Hct 27.7 L MCV MCH RDW 17.8 H Plt Count 65 L Lymph % (Auto) Levy % (Auto) Lymph # (Auto) Seg Neutrophils % Seg Neuts % (Manual) 87.0 H Lymphocytes % (Manual) 5.0 L Monocytes % (Manual) 8.0 H Nucleated RBC % Seg Neutrophils # Seg Neutrophils # Man 13.0 H Lymphocytes # (Manual) 0.7 L Monocytes # (Manual) 1.2 H PT INR D-Dimer Heparin Anti-Xa Level ABG pH POC ABG pCO2 28.2 L POC ABG pO2 112.5 H ABG Hemoglobin 9.4 L ABG Chloride 110.0 H ABG Glucose 163 H Sodium Potassium Chloride Carbon Dioxide BUN Creatinine Glucose POC Glucose 129 H Lactic Acid Calcium Magnesium Iron TIBC Ferritin AST Alkaline Phosphatase Lactate Dehydrogenase C-Reactive Protein NT-Pro-B Natriuret Pep Serum Total Protein Total Protein Albumin Belbp-3-Wlxzwvbzq PEP Interpretation PTH Intact Arterial Blood Glucose 163 H Arterial Blood Ionized Calcium Urine Creatinine Urine Total Protein Complement C3 Coronavirus (PCR) Crossmatch 09/21/20 09/21/20 09/21/20 06:12 11:48 16:59 WBC RBC Hgb Hct MCV MCH RDW Plt Count Lymph % (Auto) Levy % (Auto) Lymph # (Auto) Seg Neutrophils % Seg Neuts % (Manual) Lymphocytes % (Manual) Monocytes % (Manual) Nucleated RBC % Seg Neutrophils # Seg Neutrophils # Man Lymphocytes # (Manual) Monocytes # (Manual) PT INR D-Dimer Heparin Anti-Xa Level ABG pH POC ABG pCO2 POC ABG pO2 ABG Hemoglobin ABG Chloride ABG Glucose Sodium Potassium Chloride 109.2 H Carbon Dioxide 20 L BUN 62 H Creatinine 2.2 H Glucose 156 H POC Glucose 149 H 146 H Lactic Acid Calcium 8.2 L Magnesium Iron TIBC Ferritin AST Alkaline Phosphatase Lactate Dehydrogenase C-Reactive Protein NT-Pro-B Natriuret Pep Serum Total Protein Total Protein Albumin Gtqhl-2-Fvqzvfutg PEP Interpretation PTH Intact Arterial Blood Glucose Arterial Blood Ionized Calcium Urine Creatinine Urine Total Protein Complement C3 Coronavirus (PCR) Crossmatch 09/21/20 09/22/20 09/22/20 23:38 04:52 08:00 WBC 11.4 H RBC 3.07 L Hgb 8.4 L Hct 26.3 L MCV MCH RDW 19.6 H Plt Count 63 L Lymph % (Auto) Levy % (Auto) Lymph # (Auto) Seg Neutrophils % Seg Neuts % (Manual) 99.0 H Lymphocytes % (Manual) 0 L Monocytes % (Manual) Nucleated RBC % 1.0 H Seg Neutrophils # Seg Neutrophils # Man 11.3 H Lymphocytes # (Manual) 0.0 L Monocytes # (Manual) PT INR D-Dimer Heparin Anti-Xa Level ABG pH POC ABG pCO2 POC ABG pO2 ABG Hemoglobin ABG Chloride ABG Glucose Sodium Potassium Chloride Carbon Dioxide BUN Creatinine Glucose POC Glucose 140 H 125 H Lactic Acid Calcium Magnesium Iron TIBC Ferritin AST Alkaline Phosphatase Lactate Dehydrogenase C-Reactive Protein NT-Pro-B Natriuret Pep Serum Total Protein Total Protein Albumin [id number] PEP Interpretation PTH Intact Arterial Blood Glucose Arterial Blood Ionized Calcium Urine Creatinine Urine Total Protein Complement C3 Coronavirus (PCR) Crossmatch 09/22/20 09/22/20 09/22/20 08:00 11:47 22:38 WBC RBC Hgb Hct MCV MCH RDW Plt Count Lymph % (Auto) Levy % (Auto) Lymph # (Auto) Seg Neutrophils % Seg Neuts % (Manual) Lymphocytes % (Manual) Monocytes % (Manual) Nucleated RBC % Seg Neutrophils # Seg Neutrophils # Man Lymphocytes # (Manual) Monocytes # (Manual) PT INR D-Dimer Heparin Anti-Xa Level ABG pH POC ABG pCO2 POC ABG pO2 ABG Hemoglobin ABG Chloride ABG Glucose Sodium Potassium Chloride 107.5 H Carbon Dioxide BUN 55 H Creatinine 2.1 H Glucose 136 H POC Glucose 112 H 114 H Lactic Acid Calcium 8.1 L Magnesium Iron TIBC Ferritin AST Alkaline Phosphatase Lactate Dehydrogenase C-Reactive Protein NT-Pro-B Natriuret Pep Serum Total Protein Total Protein Albumin [id number] PEP Interpretation PTH Intact Arterial Blood Glucose Arterial Blood Ionized Calcium Urine Creatinine Urine Total Protein Complement C3 Coronavirus (PCR) Crossmatch 09/23/20 09/23/20 09/23/20 05:13 07:40 10:59 WBC RBC Hgb Hct MCV MCH RDW Plt Count Lymph % (Auto) Levy % (Auto) Lymph # (Auto) Seg Neutrophils % Seg Neuts % (Manual) Lymphocytes % (Manual) Monocytes % (Manual) Nucleated RBC % Seg Neutrophils # Seg Neutrophils # Man Lymphocytes # (Manual) Monocytes # (Manual) PT INR D-Dimer Heparin Anti-Xa Level ABG pH POC ABG pCO2 POC ABG pO2 ABG Hemoglobin ABG Chloride ABG Glucose Sodium Potassium Chloride Carbon Dioxide 20 L BUN 52 H Creatinine 2.1 H Glucose 121 H POC Glucose 111 H 120 H Lactic Acid Calcium Magnesium Iron TIBC Ferritin AST Alkaline Phosphatase Lactate Dehydrogenase C-Reactive Protein NT-Pro-B Natriuret Pep Serum Total Protein Total Protein Albumin [id number] PEP Interpretation PTH Intact Arterial Blood Glucose Arterial Blood Ionized Calcium Urine Creatinine Urine Total Protein Complement C3 Coronavirus (PCR) Crossmatch
--- NOTE | 2020-09-23 12:24 | Progress Note ---
Assessment and Plan - Patient Problems (1) Cardiopulmonary arrest with successful resuscitation Current Visit: Yes Status: Acute Plan to address problem: Patient is event with acute pulmonary arrest manifested by pulseless electrical activity likely suggestive of a primary pulmonary arrest. We will discuss with pulmonary regarding consideration for nonpharmacologic strategies to mitigate the risk of venous thromboembolism and acute pulmonary embolism. Subjective Date of service: 09/23/20 Principal diagnosis: Iron Def Anemia Interval history: Patient is comfortably no acute distress, currently on the medical floor. She was admitted with Covid 19 pneumonia, and after 2 weeks of supportive care, developed transient respiratory arrest characterized by pulseless electrical activity. Otherwise, no evidence for primary cardiac event. Echocardiogram shows very mild decrease in left ventricular systolic function, but more significantly dilated right heart chambers consistent with cor pulmonale or acute pulmonary embolism. Patient was reported with a lower extremity DVT at the time of her hospitalization, but oral anticoagulation was contraindicated by a suspected GI bleed. Objective Vital Signs Temp Pulse Resp BP Pulse Ox 09/23/20 06:14 97.8 F 61 20 176/62 96 09/23/20 04:35 96 09/22/20 22:33 98.2 F 74 20 181/104 99 09/22/20 15:01 79 17 158/57 91 09/22/20 14:00 47 L 15 148/71 100 09/22/20 13:00 85 21 175/66 100 - Physical Examination General: No Apparent Distress, Cachectic HEENT: Positive: PERRL Neck: Positive: neck supple Cardiac: Positive: Reg Rate and Rhythm Lungs: Positive: Decreased Breath Sounds Neuro: Positive: Weakness Abdomen: Positive: Soft Skin: Positive: Clear Extremities: Absent: edema - Labs and Meds Comprehensive Metabolic Panel 09/23/20 Range/Units 05:13 Sodium 137 (137-145) mmol/L Potassium 4.2 (3.6-5.0) mmol/L Chloride TNR Carbon Dioxide 20 L (22-30) mmol/L BUN 52 H (7-17) mg/dL Creatinine 2.1 H (0.6-1.2) mg/dL Glucose 121 H (65-100) mg/dL Calcium 8.4 (8.4-10.2) mg/dL
[2020-09-23] MEDS ORDERED: OXYMETAZOLINE 0.05% NASAL SPRAY NS PRN (13:00)
--- NOTE | 2020-09-23 13:01 | Progress Note ---
Assessment and Plan Assessment and plan: --S/P Cardiorespiratory arrest on 09/17/20 Intubated on vent, pulmonary critical, cardiology following Patient was weaned and extubated yesterday Today patient is alert and awake on nasal cannula oxygen -- Acute delirium/acute metabolic encephalopathy Etiology unknown, likely initially was metabolic Significantly improved, neuro, psych consult as needed --Sepsis ;Due to COVID-19 pneumonia Received complete treatment,Blood culture NTD --Septic shock, status post pressor following cardiac arrest BP now stable, continue to monitor --COVID-19 pneumonia, POA Coronavirus protocol: Coronavirus PCR is positive, contact precaution, isolation precautions, prone positioning while in bed, Not a candidate for remdesivir due to renal failure Continue dexamethasone, s/p convalescent plasma --Acute on chronic anemia Due to chronic GI bleed and iron deficiency Status post transfusion of 3 units PRBC, PPI. Continue to monitor for GI bleed As per GI, does not look like patient is having GI bleed at this time Advance diet as tolerated --Possible GI bleed, chronic Advance diet, GI on board Recommended to manage medically --Acute kidney injury (DIRK) with acute tubular necrosis (ATN) Continue to monitor renal function Nephrology following closely --Hypernatremia Continue isotonic solution Nephrology on board --Bilateral lower extremity DVT, chronic Consulted vascular surgeon for consideration of IVC filter placement. As per vascular surgery, patient is not a good candidate for IVC filter pl acement INR 2.74. GI recommended to treat with aspirin only --Diabetes type II Accu-Chek sliding scale coverage ADA diet Insulin as needed --Ongoing tobacco use; Smoking cessation counseling Nicotine patch as needed --EPIXTASIS --DVT prophylaxis, Anticoagulation --full code status Bedside swallow eval versus speech therapy swallow eval Patient is stable to be transferred out of ICU to medical floor. 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 The aggregate critical care time was [35] minutes. This time is in addition to time spent performing reported procedures but includes the following: [x] Data Review and interpretation [x] Patient assessment and monitoring of vital signs [x] Documentation [x] Medication orders and management Plan of care reviewed with the patient and her nurse Brief History; 64 YO Female with HTN, DM, Anemia, PVD, Nicotine Dependence, positive coronavirus test recently at [facility] presented to the emergency room for further evaluation. Patient states that she has experienced subjective fever, generalized weakness, body aches, shortness of breath, nausea, multiple loose stools, lower extremity edema over the past 1 week with progressively worsening symptoms over the past 3 to 4 days prior to presentation. Here, patient found to be hypotensive with a systolic blood pressure ranging from 53-94. Patient was also hypothermic with a body temperature of 93.3 F. Patient met criteria for sepsis protocol and found to have bilateral pneumonia, metabolic acidosis, acute kidney injury. Patient admitted to telemetry due to increased risk of multisystem decompensation. Patient initiated on coronavirus protocol. Coronavirus PCR has been ordered, Patient remained hypotensive in spite of IV fluid resuscitation therapy. Patient subsequently upgraded to IMCU. Her repeat COVID-19 test was positive. She was treated with dexamethasone daily for 10 days. Remdesivir could not be given because of worsening renal function. Did receive convalescent plasma. Patient was downgraded to MedSurg. Patient did have on and off delirium recovering restrain. But she was clinically improving and was planning for discharge. On 09/17 morning she developed cardiorespiratory arrest following a coffee-ground emesis. Patient was intubated and transferred to ICU, critical care was consulted, placed on pressor support for hypotension. Family updated and wanted to continue aggressive care. s/p extubation today. daily course: 09/03. While in the ER, patient had an ultrasound Doppler performed that showed bilateral DVT involving the iliac veins. Patient was started on heparin drip. ID consulted for COVID-19 and nephrology consulted for DIRK. Patient seen and examined at bedside this morning. She has no complaints this morning. Her hemoglobin dropped to 6.4 this morning. Patient will get transfused 1 unit of PRBCs. Later this p.m., was notified by nurse that patient is having tarry dark stool and hematemesis. Heparin drip discontinued. Patient started on PPI drip and made n.p.o. GI is has been consulted. Patient will need to have an upper endoscopy. She has bilateral lower extremity DVT and will need vascular surgery evaluation to determine if she is a candidate for IVC filter placement. 09/04. Patient seen and examined at bedside this morning. Labs reviewed showed hemoglobin 5.3. Patient will receive 2 units PRBCs. FFP also ordered. GI evaluation pending. Continue PPIs. Vascular surgeon to see to determine if patient is a candidate for IVC filter placement for DVT. 09/05. Hb stable this morning. GI on board. On PPI drip. 09/06. Gastroenterology and vascular surgery recommendations reviewed. Patient not a good candidate for IVC filter placement due to location of the clot/thrombosis. Plan is for patient to have anticoagulation on while monitoring hemoglobin. Patient's INR is more than 2 at this time so we will hold anticoagulation for now and monitor hemoglobin. Plan to initiate anticoagulation when INR is less than 2. We will preferably use heparin products as she has a high chance of bleeding. Continue to monitor hemoglobin. Hb 7.3 this a.m. 09/07. Hemoglobin 8.2 this AM. No clear signs of GI bleed. Her INR is 2.74. No need for initiation of AC for now as she INR is already therapeutic. Plan is to monitor for bleeding and if she remains stable, she will be started on anticoagulation for her bilateral DVT. Vascular surgery following-patient not a candidate for IVC catheter placement. GI recommendations appreciated 09/08: Patient is nonreactive to COVID-19 antibody, per ID order for convalescent plasma. Continue supportive care, follow clinically 09/09: Pending convalescent plasma transfusion, continue to follow inflammatory markers. Monitor H&H. Plan to start on aspirin tomorrow if INR and H&H stable 09/10: hb dropped to 6.8, transfuse one unit, discussed with GI - no plan for endoscopy now, cont to follow clinically 09/11: patient didn't get transfusion yesterday. became very agitated today, ord ered as needed haldol, cont iv fluid. monitor clinically 09/12: placed on restrain o/n. cont supportive care, lost IV line - ordered for midline. pending PRBC transfusion 09/13: monitor h/h, patient more clam today, continue supportive care, follow BMP - Na and Cr has been improving 09/14: cont to monitor, follow BMP, follow h/h. oral intake improved per RN 09/15: If h/h stable and Cr cont to improves will d/c in a day or two 09/16; spoke with daughter and updated her with patient's clinical condition. family willing to accept the patient tomorrow. RN reported some Nose bleeding earlier today, but now resolved. repeat h/h stable 09/17: had respiratory/cardiac arrest this am. patient transferred to ICU. updated family. will get CT head, patient now intubated, start on bicarbonate drip 09/18; remains unresponsive, NG tube placed and noted bolld from the NG tube, discussed with GI - recommended PRBC/FFP transfusion. patient remains unresponsive w/o sedation and intubated. Called daughter and updated. 09/19: - Patient had OG tube with initial bloody secretions on insertion but currently with dark greenish output. No active bloody output from the OG tube. Rectal tube with dark greenish bilious output. No clear signs of active on-going GI bleeding. Off levophed. Continue to monitor H&H, transfuse as needed. Patient remains unresponsive without any sedation. Poor prognosis which I discussed with the family 09/20: cont supportive care, wean off vent as tolerated. Updated family by phone 09/21: s/p extubation today. Continue to assess mental status. Continue s upportive care. We will stop the bicarbonate drip and start sodium bicarbonate with feeding tube. We will continue half-normal saline for now and monitor BMP daily, ordered speech eval. 09/22; patient was extubated yesterday, today doing well on nasal cannula oxygen, will request for swallow eval, and ordered diet as tolerated Will downgrade her to medical floor, she is still agitated will renew her restraints. Closely monitor DC planning per case management 09/23: Recurrent nosebleed. Rhino Rocket placed in the left nare. Afrin ordered twice daily. Aspiration precautions at this time. No worsening oxygen demand. Will monitor for additional 24 hours. Discharge planning from them. Discussed with nurses at bedside and also with patient. SCDs for DVT prophylaxis discontinue chemical chemoprophylaxis. S History Interval history: Patient seen and examined this morning noted with profuse epistaxis from the left nostril, no worsening shortness of breath. Hospitalist Physical - Physical exam Narrative exam: General appearance: Present: no acute distress, well-nourished, chronically ill- appearing - EENT Eyes: Present: PERRL, EOM intact, nasal bleed left nostril - Neck Neck: Present: supple, normal ROM - Respiratory Respiratory effort: normal Respiratory: bilateral: diminished, rhonchi, negative: rales, wheezing - Cardiovascular Rhythm: regular Heart Sounds: Present: S1 & S2 - Extremities Extremities: no ischemia, No edema - Abdominal General gastrointestinal: soft, non-tender, non-distended, normal bowel sounds - Integumentary Integumentary: Present: clear, warm - Psychiatric Psychiatric: appropriate mood/affect, cooperative - Neurologic Neurologic: moves all extremities - Patient Problems - Constitutional Vitals: Temp Pulse Resp BP Pulse Ox 97.8 F 61 20 176/62 96 09/23/20 06:14 09/23/20 06:14 09/23/20 06:14 09/23/20 06:14 09/23/20 06:14 General appearance: Present: no acute distress, well-nourished Results - Labs CBC & Chem 7: 09/22/20 08:00 09/23/20 05:13 Labs: Laboratory Last Values WBC 11.4 K/mm3 (4.5-11.0) H 09/22/20 08:00 RBC 3.07 M/mm3 (3.65-5.03) L 09/22/20 08:00 Hgb 8.4 gm/dl (10.1-14.3) L 09/22/20 08:00 Hct 26.3 % (30.3-42.9) L 09/22/20 08:00 MCV 86 fl (79-97) 09/22/20 08:00 MCH 28 pg (28-32) 09/22/20 08:00 MCHC 32 % (30-34) 09/22/20 08:00 RDW 19.6 % (13.2-15.2) H 09/22/20 08:00 Plt Count 63 K/mm3 (140-440) L 09/22/20 08:00 Lymph % (Auto) Grease [place]key 09/22/20 08:00 [place] % (Auto) Grease Monkey 09/22/20 08:00 Eos % (Auto) Grease Monkey 09/22/20 08:00 Baso % (Auto) Grease Monkey 09/22/20 08:00 Lymph # (Auto) Gre[place] Monkey 09/22/20 08:00 [place] # (Auto) Grease Monkey 09/22/20 08:00 Eos # (Auto) 0.0 K/mm3 (0.0-0.4) 09/08/20 05:18 Baso # (Auto) 0.0 K/mm3 (0.0-0.1) 09/08/20 05:18 Add Manual Diff Complete 09/22/20 08:00 Total Counted 100 09/22/20 08:00 Seg Neutrophils % Grease Monkey 09/22/20 08:00 Seg Neuts % (Manual) 99.0 % (40.0-70.0) H 09/22/20 08:00 Band Neutrophils % 0 % 09/22/20 08:00 Lymphocytes % (Manual) 0 % (13.4-35.0) L 09/22/20 08:00 Reactive Lymphs % (Man) 0 % 09/22/20 08:00 Monocytes % (Manual) 1.0 % (0.0-7.3) 09/22/20 08:00 Eosinophils % (Manual) 0 % (0.0-4.3) 09/22/20 08:00 Basophils % (Manual) 0 % (0.0-1.8) 09/22/20 08:00 Metamyelocytes % 0 % 09/22/20 08:00 Myelocytes % 0 % 09/22/20 08:00 Promyelocytes % 0 % 09/22/20 08:00 Blast Cells % 0 % 09/22/20 08:00 Nucleated RBC % 1.0 % (0.0-0.9) H 09/22/20 08:00 Seg Neutrophils # 9.5 K/mm3 (1.8-7.7) H 09/08/20 05:18 Seg Neutrophils # Man 11.3 K/mm3 (1.8-7.7) H 09/22/20 08:00 Band Neutrophils # 0.0 K/mm3 09/22/20 08:00 Lymphocytes # (Manual) 0.0 K/mm3 (1.2-5.4) L 09/22/20 08:00 Abs React Lymphs (Man) 0.0 K/mm3 09/22/20 08:00 Monocytes # (Manual) 0.1 K/mm3 (0.0-0.8) 09/22/20 08:00 Eosinophils # (Manual) 0.0 K/mm3 (0.0-0.4) 09/22/20 08:00 Basophils # (Manual) 0.0 K/mm3 (0.0-0.1) 09/22/20 08:00 Metamyelocytes # 0.0 K/mm3 09/22/20 08:00 Myelocytes # 0.0 K/mm3 09/22/20 08:00 Promyelocytes # 0.0 K/mm3 09/22/20 08:00 Blast Cells # 0.0 K/mm3 09/22/20 08:00 WBC Morphology Not Reportable 09/22/20 08:00 Hypersegmented Neuts Not Reportable 09/22/20 08:00 Hyposegmented Neuts Not Reportable 09/22/20 08:00 Hypogranular Neuts Not Reportable 09/22/20 08:00 Smudge Cells Not Reportable 09/22/20 08:00 Toxic Granulation Not Reportable 09/22/20 08:00 Toxic Vacuolation Not Reportable 09/22/20 08:00 Dohle Bodies Not Reportable 09/22/20 08:00 Pelger-Huet Anomaly Not Reportable 09/22/20 08:00 Ignacia Rods Not Reportable 09/22/20 08:00 Platelet Estimate Consistent w auto 09/22/20 08:00 Clumped Platelets Not Reportable 09/22/20 08:00 Plt Clumps, EDTA Not Reportable 09/22/20 08:00 Large Platelets Not Reportable 09/22/20 08:00 Giant Platelets Not Reportable 09/22/20 08:00 Platelet Satelliting Not Reportable 09/22/20 08:00 Plt Morphology Comment Not Reportable 09/22/20 08:00 RBC Morphology Not Reportable 09/22/20 08:00 Dimorphic RBCs Not Reportable 09/22/20 08:00 Polychromasia Not Reportable 09/22/20 08:00 Hypochromasia 1+ 09/22/20 08:00 Poikilocytosis 1+ 09/22/20 08:00 Anisocytosis Not Reportable 09/22/20 08:00 Microcytosis Not Reportable 09/22/20 08:00 Macrocytosis Not Reportable 09/22/20 08:00 Spherocytes Not Reportable 09/22/20 08:00 Pappenheimer Bodies Not Reportable 09/22/20 08:00 Sickle Cells Not Reportable 09/22/20 08:00 Target Cells Not Reportable 09/22/20 08:00 Tear Drop Cells Not Reportable 09/22/20 08:00 Ovalocytes Not Reportable 09/22/20 08:00 Helmet Cells Not Reportable 09/22/20 08:00 [place] Bodies Not Reportable 09/22/20 08:00 [place] Rings Not Reportable 09/22/20 08:00 [place] Cells 1+ 09/22/20 08:00 Bite Cells Not Reportable 09/22/20 08:00 Crenated Cell Not Reportable 09/22/20 08:00 Elliptocytes Not Reportable 09/22/20 08:00 Acanthocytes (Spur) Not Reportable 09/22/20 08:00 Rouleaux Not Reportable 09/22/20 08:00 Hemoglobin C Crystals Not Reportable 09/22/20 08:00 Schistocytes 1+ 09/22/20 08:00 Malaria parasites Not Reportable 09/22/20 08:00 [place] Bodies Not Reportable 09/22/20 08:00 Hem Pathologist Commnt No 09/22/20 08:00 PT 22.5 Sec. (12.2-14.9) H 09/19/20 08:50 INR 1.97 (0.87-1.13) H 09/19/20 08:50 APTT 29.2 Sec. (24.2-36.6) 09/02/20 13:52 D-Dimer 1076.18 ng/mlDDU (0-234) H 09/01/20 21:55 Heparin Anti-Xa Level 0.94 U.I./ml (0.3-0.7) H 09/03/20 05:17 ABG pH 7.441 (7.320-7.450) 09/21/20 03:25 POC ABG pCO2 28.2 mmHg (32.0-48.0) L 09/21/20 03:25 POC ABG pO2 112.5 mmHg (83-108) H 09/21/20 03:25 POC ABG HCO3 18.8 09/21/20 03:25 POC ABG Base Excess -4.5 09/21/20 03:25 ABG Hemoglobin 9.4 (12.0-17.5) L 09/21/20 03:25 ABG Sodium 136.3 mmol/L (136.0-145.0) 09/21/20 03:25 ABG Potassium 4.4 mmol/L (3.40-4.50) 09/21/20 03:25 ABG Chloride 110.0 mmol/L (98-107) H 09/21/20 03:25 ABG Glucose 163 mg/dL (65-95) H 09/21/20 03:25 FiO2 40.0 09/21/20 03:25 Sodium 137 mmol/L (137-145) 09/23/20 05:13 Potassium 4.2 mmol/L (3.6-5.0) 09/23/20 05:13 Chloride TNR 09/23/20 05:13 Carbon Dioxide 20 mmol/L (22-30) L 09/23/20 05:13 Anion Gap 17 mmol/L 09/23/20 05:13 BUN 52 mg/dL (7-17) H 09/23/20 05:13 Creatinine 2.1 mg/dL (0.6-1.2) H 09/23/20 05:13 Estimated GFR 29 ml/min 09/23/20 05:13 BUN/Creatinine Ratio 25 % 09/23/20 05:13 Glucose 121 mg/dL (65-100) H 09/23/20 05:13 POC Glucose 120 mg/dL (70-105) H 09/23/20 10:59 Lactic Acid 0.60 mmol/L (0.7-2.0) L 09/02/20 08:10 Calcium 8.4 mg/dL (8.4-10.2) 09/23/20 05:13 Phosphorus 3.50 mg/dL (2.5-4.5) 09/06/20 06:43 Magnesium 2.20 mg/dL (1.7-2.3) 09/14/20 19:57 Iron 28 ug/dL (37-170) L 09/07/20 09:13 TIBC 188 mcg/dL (250-450) L 09/07/20 09:13 Ferritin 313.5 ng/mL (10.0-200.0) H 09/01/20 21:55 Total Bilirubin 0.70 mg/dL (0.1-1.2) 09/19/20 04:29 AST 29 units/L (5-40) 09/19/20 04:29 ALT 43 units/L (7-56) 09/19/20 04:29 Alkaline Phosphatase 185 units/L (35-129) H 09/19/20 04:29 Lactate Dehydrogenase 435 units/L (91-180) H 09/01/20 21:55 C-Reactive Protein 2.30 mg/dL (0.00-1.30) H 09/01/20 21:55 NT-Pro-B Natriuret Pep 01017 pg/mL (0-900) H 09/01/20 21:55 Serum Total Protein 4.3 g/dL (6.1-8.1) L 09/16/20 13:44 Total Protein 4.3 g/dL (6.3-8.2) L 09/19/20 04:29 Albumin 2.1 g/dL (3.9-5) L 09/19/20 04:29 Albumin/Globulin Ratio 1.0 % 09/19/20 04:29 Nubto-5-Ezosydxwf 0.5 g/dL (0.2-0.3) H 09/16/20 13:44 Jnkyl-2-Hakrbteql 0.6 g/dL (0.5-0.9) 09/16/20 13:44 Beta Globulins 0.3 g/dL (0.2-0.5) 09/16/20 13:44 Gamma Globulins 0.8 g/dL (0.8-1.7) 09/16/20 13:44 Abnorm Protein Band 1 see below 09/16/20 13:44 PEP Interpretation see below H 09/16/20 13:44 Vitamin B12 843.2 pg/mL (211-911) 09/07/20 09:13 Procalcitonin 0.10 ng/mL (<0.15) 09/01/20 21:55 TSH 0.735 mlU/mL (0.270-4.200) 09/02/20 00:45 Free T4 0.92 ng/dL (0.76-1.46) 09/02/20 00:45 Free T4 0.94 ng/dL (0.76-1.46) 09/02/20 00:45 PTH Intact 820.4 pg/mL (15-65) H 09/04/20 05:18 Arterial Blood Glucose 163 mg/dL (65-95) H 09/21/20 03:25 Arterial Blood Ionized Calcium 4.7 mg/dL (4.6-5.3) 09/21/20 03:25 Urine Color Elena (Yellow) 09/02/20 03:44 Urine Turbidity Cloudy (Clear) 09/02/20 03:44 Urine pH 7.0 (5.0-7.0) 09/02/20 03:44 Ur Specific [place] 1.015 (1.003-1.030) 09/02/20 03:44 Urine Protein >500 mg/dL (Negative) 09/02/20 03:44 Urine Glucose (UA) Neg mg/dL (Negative) 09/02/20 03:44 Urine Ketones Neg mg/dL (Negative) 09/02/20 03:44 Urine Blood Neg (Negative) 09/02/20 03:44 Urine Nitrite Neg (Negative) 09/02/20 03:44 Urine Bilirubin Neg (Negative) 09/02/20 03:44 Urine Urobilinogen < 2.0 mg/dL (<2.0) 09/02/20 03:44 Ur Leukocyte Esterase Neg (Negative) 09/02/20 03:44 Urine WBC (Auto) < 1.0 /HPF (0.0-6.0) 09/02/20 03:44 Urine RBC (Auto) < 1.0 /HPF (0.0-6.0) 09/02/20 03:44 U Epithel Cells (Auto) < 1.0 /HPF (0-13.0) 09/02/20 03:44 Urine Bacteria (Auto) 2+ /HPF (Negative) 09/02/20 03:44 Urine Mucus Few /HPF 09/02/20 03:44 Urine Creatinine 43.2 mg/dL (0.1-20.0) H 09/06/20 06:52 Protein/Creatinin Ratio 6.90 09/06/20 06:52 Urine Sodium 84 mmol/L 09/06/20 06:52 Urine Total Protein 298 mg/dL (5-11.8) H 09/06/20 06:52 DEMARCUS Screen Negative (Negative) 09/17/20 00:10 Proteinase 3 (PR3) Ab <1.0 AI (<1.0) 09/17/20 00:10 Myeloperoxidase Ab <1.0 AI (<1.0) 09/17/20 00:10 Complement C3 82 mg/dL (83-193) L 09/17/20 00:10 Complement C4 26 mg/dL (15-57) 09/17/20 00:10 C. difficile Tox (PCR) Negative (Negative) 09/02/20 13:05 Coronavirus (PCR) Positive (Negative) A 09/17/20 Unknown SARS-CoV-2 IgG Ab Nonreactive (NonReactive) 09/02/20 08:10 Blood Type O POSITIVE 09/17/20 13:49 Antibody Screen Negative 09/17/20 13:49 Crossmatch See Detail 09/17/20 13:49 - Diagnostic Impressions Diagnostic Impressions: Echocardiogram 09/22/20 13:29 Transthoracic Echocardiogram Indication: Cardiopulmonary arrest BP: 175/66 HR: 71 Conclusions *4-chamber dilated cardiomyopathy. *Global left ventricular systolic function is mildly decreased. *The estimated ejection fraction is 40-45%. *Mild concentric left ventricular hypertrophy is observed. *There is mild to moderate mitral regurgitation. *There is mild to moderate tricuspid regurgitation. *There is moderately-severe pulmonary hypertension. *The right ventricular systolic pressure is calculated at 62 mmHg. *There is a minimial pericardial effusion. Findings Left Ventricle: The left ventricular chamber size is mildly dilated. Mild concentric left ventricular hypertrophy is observed. Global left ventricular systolic function is mildly decreased. The estimated ejection fraction is 40-45%. Left Atrium: The left atrium is moderately dilated. Right Ventricle: The right ventricle is mildly dilated. The right ventricular global systolic function is mildly reduced. Right Atrium: The right atrium is moderately dilated. Aortic Valve: The aortic valve is trileaflet. The aortic valve leaflets are moderately thickened. There is no evidence of aortic regurgitation. There is no evidence of aortic stenosis. Mitral Valve: The mitral valve leaflets are mildly thickened. There is mild to moderate mitral regurgitation. There is no evidence of mitral stenosis. Tricuspid Valve: The tricuspid valve leaflets are normal. There is mild to moderate tricuspid regurgitation. The right ventricular systolic pressure is calculated at 62 mmHg. There is evidence of severe pulmonary hypertension. Pulmonic Valve: There is mild pulmonic regurgitation. Pericardium: There is a minimial pericardial effusion. Aorta: There is no dilatation of the ascending aorta. There is no dilatation of the aortic root. Venous: The inferior vena cava is dilated. Measurements Chambers 2D Name Value Normal Range IVSd (2D) 1.17 cm (0.6 - 1.1) LVPWd (2D) 1.15 cm (0.6 - 1.1) IVS:LVPW ratio (2D) 1.02 ratio - LVIDd (2D) 5 cm (3.7 - 5.6) LVIDs (2D) 3.71 cm (2 - 3.8) LV FS (Teichholz) (2D) 25.8 % - LV FS (cube) (2D) 25.8 % - EF Teichholz (2D) 50.4 % - Ao root diameter (2D) 2.6 cm (2 - 3.7) LA dimension (AP) 2D 5.1 cm (1.9 - 4) LA:Ao ratio (2D) 1.96 ratio - Volumes/Mass Name Value Normal Range LA ESV SP 4CH (MOD) 49 ml - LA ESV SP 2CH (MOD) 96 ml - LA ESV BP (MOD) 69 ml - LA ESV BP (MOD) index 33.2 ml/m2 - Diastolic/Systolic Function Name Value Normal Range MV E-wave Vmax 1.21 m/sec - MV deceleration time 254 msec - MV A-wave Vmax 1.12 m/sec - MV E:A ratio 1.1 ratio - Aortic Valve Name Value Normal Range AV VTI 31.1 cm - AV mean gradient 4 mmHg - LVOT diameter 2 cm - LVOT VTI 19.4 cm - LVOT mean gradient 2 mmHg - Mitral Valve Name Value Normal Range MV Vmax 1.44 m/sec - MV VTI 35.9 cm - MV peak gradient 8 mmHg - MV mean gradient 5 mmHg - MR Vmax 5.52 m/sec - Tricuspid Valve Name Value Normal Range TR Vmax 3.52 m/sec - TR peak gradient 50 mmHg - RVSP 62 mmHg - [place]/IV: Voiding Method Indwelling Catheter IV Catheter Type [Left Upper PICC Line arm] IV Catheter Type [Right INT / Saline Lock Forearm] IV Catheter Type [Left INT / Saline Lock Antecubital] IV Catheter Type [Right Hand] INT / Saline Lock IV Catheter Type [Right Upper Mid-line arm] IV Catheter Type [Right INT / Saline Lock External Jugular] Active Medications - Current Medications Current Medications: Generic Name Dose Route Start Last Admin Trade Name Freq PRN Reason Stop Dose Admin Acetaminophen 650 mg 09/02/20 00:30 09/05/20 22:50 Tylenol PO 650 mg Q6H PRN Administration Pain, Mild (1-3) Amlodipine Besylate 10 mg 09/21/20 12:00 09/22/20 11:44 Amlodipine PO Not Given DAILY [facility] Calcitriol 0.5 mcg 09/05/20 13:00 09/22/20 11:45 Rocaltrol PO Not Given QDAY [facility] Dextrose 50 ml 09/11/20 19:09 D50w (25gm) Syringe IV Q30MIN PRN Hypoglycemia Protocol Ferrous Sulfate 308 mg 09/21/20 10:00 09/22/20 11:45 Ferrous Sulfate FEEDTUBE Not Given DAILY [facility] Haloperidol Lactate 5 mg 09/11/20 19:10 Haldol IM Q6H PRN Agitation Hydralazine HCl 10 mg 09/10/20 22:23 09/14/20 05:46 Apresoline IV 10 mg Q6H PRN Administration Blood Pressure Insulin Human Lispro 0 unit 09/19/20 12:00 09/23/20 07:41 Humalog SUB-Q Not Given Q6HR [facility] Protocol Multivitamins 5 ml 09/18/20 10:00 09/22/20 11:44 Centrum Liq PO Not Given QDAY [facility] Oxymetazoline HCl 2 spray 09/23/20 13:00 Vicks Sinex NS Q12H PRN Nasal Congestion Pantoprazole Sodium 40 mg 09/22/20 10:00 09/22/20 21:44 Protonix IV 40 mg BID [facility] Administration Potassium Bicarbonate 50 meq 09/10/20 22:00 09/22/20 11:44 Klor-Con PO Not Given BID [facility] Sertraline HCl 50 mg 09/02/20 10:00 09/22/20 11:45 Zoloft PO Not Given DAILY [facility] Sodium Chloride 10 ml 09/02/20 10:00 09/22/20 21:44 Sodium Chloride Flush Syringe 10 Ml IV 10 ml BID JAE Administration Sodium Chloride 10 ml 09/02/20 00:30 Sodium Chloride Flush Syringe 10 Ml IV PRN PRN LINE FLUSH Nutrition/Malnutrition Assess - Dietary Evaluation Nutrition/Malnutrition Findings: Nutrition Notes Start: 09/03/20 13:19 Freq: Status: Active Protocol: Document 09/21/20 13:04 LP (Rec: 09/21/20 13:13 LP [id number]) Nutrition Notes Need for Assessment generated from: MD Order Initial or Follow up Reassessment Current Diagnosis Acute Kidney Injury,Diabetes Other Pertinent Diagnosis COVID-19 (+), pneu, anemia, bilat BKA, erosive esophagitis Current Diet Consistent CHO + Glucerna daily Labs/Tests Reviewed Pertinent Medications Reviewed Height 5 ft 6 in Weight 100.2 kg [place] Body Weight (kg) 59.09 BMI 35.6 Weight Status Obese Subjective/Other Information Consult for TF. TF started during rounds. Pt possible extubation today. Burn Absent Trauma Absent GI Symptoms Diarrhea Difficulty In Swallowing Current % PO Poor (25-49%) Minimum of two criteria No physical signs of malnutrition #1 Nutrition Diagnosis Inadequate oral intake Diagnosis Progress(for reassessment Continues documentation) Is patient on ventilator? No Is Patient Ambulatory and/or Out of Bed No REE-([facility]-confined to bed) 1893.348 Kcal/Kg value to use for calculation 16 Approximate Energy Requirements Using 1603 kcal/Kg Calculation Used for Recommendations Kcal/kg Additional Notes Protein: > 118 g (> 2g/kg IBW) Fluid: 1 ml/kcal Nutrition Intervention Change Diet Order: TF Nutrition Support: Increase Nepro at 40ml/hr Flush with 150ml q4h Kcal 1,728 Protein (gm) 78 Fluid (mL) 698 Goal #1 Meet at least 75% of kcal and protein needs via TF Anticipated Discharge Needs: Unable to determine at this time Follow-Up By: 09/23/20 Additional Comments Follow for TF tolerance at goal
--- NOTE | 2020-09-23 13:11 | Gastroenterology Progress Note ---
Assessment and Plan Continue PPI No reported overt bleeding. However, patient's clinical status is starting to improve (no longer in ICU). Continue to monitor both clinically and with daily hemoglobin Depending upon hemoglobin trend and patient's clinical status she would benefit from EGD and colonoscopy, inpatient versus outpatient. Given Speech eval may need G tube placement at same time as EGD/colon, awaiting cards clearance for endoscopy Regarding anticoagulation risk/benefit please see Monday's notes. From GI standpoint if needed she would be acceptable risk for low-dose heparin drip with close monitoring - Patient Problems (1) DVT (deep venous thrombosis) Current Visit: Yes Status: Acute (2) Iron deficiency anemia due to chronic blood loss Current Visit: Yes Status: Acute Subjective Date of service: 09/23/20 Principal diagnosis: Iron Def Anemia Interval history: Hemoglobin decreased yesterday (none today) Patient extubated Objective - Constitutional Vitals: Temp Pulse Resp BP Pulse Ox 97.8 F 61 20 176/62 96 09/23/20 06:14 09/23/20 06:14 09/23/20 06:14 09/23/20 06:14 09/23/20 06:14 General appearance: no acute distress - Respiratory Respiratory effort: normal - Labs CBC & Chem 7: 09/22/20 08:00 09/23/20 05:13 Labs: Laboratory Results - last 24 hr 09/22/20 09/23/20 09/23/20 22:38 05:13 07:40 Sodium 137 Potassium 4.2 Chloride TNR Carbon Dioxide 20 L Anion Gap 17 BUN 52 H Creatinine 2.1 H Estimated GFR 29 BUN/Creatinine Ratio 25 Glucose 121 H POC Glucose 114 H 111 H Calcium 8.4 09/23/20 10:59 Sodium Potassium Chloride Carbon Dioxide Anion Gap BUN Creatinine Estimated GFR BUN/Creatinine Ratio Glucose POC Glucose 120 H Calcium
--- NOTE | 2020-09-23 15:07 | Progress Note ---
Assessment and Plan 1. Acute kidney injury: DIRK secondary to combination of Vasomotor nephropathy and severe sepsis. Renal US negative for hydro. Monitor renal function. Creatinine leveled off. Prior Creatinine was 1.2 in 2014. Likely CKD stage 4. Renal prognosis is guarded. Avoid nephrotoxic agents. Meds dosage based on GFR. 2. FEN: Hyperchloremic Metabolic acidosis, on Potassium bicarbonate, monitor. Hypernatremia, improved, monitor. Monitor lytes. 3. Nephrotic syndrome: Likely diabetic nephropathy. DEMARCUS, ANCA and GBM Ab are negative. Complements appears normal. Too small of M spike. 4. Severe sepsis, POA, now with shock: Off pressors. 5. S/p Cardiac arrest. 6. Severe COVID infection: Seen by ID. 7. Acute hypoxic resp failure: Intubated post-arrest. S/p extubated. 8. Bilateral LE DVT, POA. 9. Microcytic anemia, POA: S/p PRBC. Monitor. Seen by GI. 10. Thrombocytopenia, POA. 11. Acute diarrhea: Likely associated with COVID-19 infection. C. difficile test negative. Subjective: Patient was seen and examined at the bedside. Examination: General appearance: well-developed, appears stated age, no distress, on restrains HEENT: JAYCE Neck: supple Respiratory: ctab Cardiology: regular, S1S2, no murmur Gastrointestinal: normoactive bowel sounds, no tenderness, not distended Integumentary: no obvious rash Neurologic: lethargic, opens eyes Ext: trace dependent edema, b/l BKA : [place] catheter Subjective Date of service: 09/23/20 Principal diagnosis: Iron Def Anemia Objective - Vital Signs Vital signs: Vital Signs - 12hr 09/23/20 09/23/20 09/23/20 04:35 06:14 10:00 Temperature 97.8 F Pulse Rate 61 Respiratory 20 Rate Blood Pressure 176/62 O2 Sat by Pulse 96 96 92 Oximetry - Lab 09/23/20 14:42 09/23/20 05:13 Most recent lab results ABG pH 7.441 (7.320-7.450) 09/21/20 03:25 Calcium 8.4 mg/dL (8.4-10.2) 09/23/20 05:13 Phosphorus 3.50 mg/dL (2.5-4.5) 09/06/20 06:43 Magnesium 2.20 mg/dL (1.7-2.3) 09/14/20 19:57 Urine Creatinine 43.2 mg/dL (0.1-20.0) H 09/06/20 06:52 Urine Sodium 84 mmol/L 09/06/20 06:52 Urine Total Protein 298 mg/dL (5-11.8) H 09/06/20 06:52 Medications & Allergies - Medications Allergies/Adverse Reactions: Allergies No Known Allergies Allergy (Unverified 02/14/14 19:23) Home Medications: Home Medications Medication Instructions Recorded Confirmed Last Taken Type Aspirin [[place] Aspirin] 81 mg PO DAILY 02/14/14 02/22/14 02/14/14 11:00 History Ferrous Sulfate [Feosol 325mg] 325 mg PO DAILY 02/14/14 02/22/14 02/14/14 11:00 History Sertraline [Zoloft] 50 mg PO DAILY 02/14/14 02/22/14 02/14/14 11:00 History amLODIPine 5 mg PO DAILY 02/14/14 02/22/14 02/14/14 11:00 History hydroCHLOROthiazide 25 mg PO DAILY 02/14/14 02/22/14 02/14/14 11:00 History [Hydrochlorothiazide] Aspirin EC [Ecotrin] 325 mg PO QDAY #60 tablet 09/17/20 Unknown Rx Insulin Glargine [Lantus VIAL] 14 units SUB-Q QHS 30 Days 09/17/20 Unknown Rx Pantoprazole [Protonix TAB] 40 mg PO BIDAC #60 tablet 09/17/20 Unknown Rx calcitrioL [Rocaltrol] 0.5 mcg PO QDAY #30 capsule 09/17/20 Unknown Rx metOLazone [Zaroxolyn] 10 mg PO QDAY #30 tablet 09/17/20 Unknown Rx Active Medications: Generic Name Dose Route Start Last Admin Trade Name Freq PRN Reason Stop Dose Admin Acetaminophen 650 mg 09/02/20 00:30 09/05/20 22:50 Tylenol PO 650 mg Q6H PRN Administration Pain, Mild (1-3) Amlodipine Besylate 10 mg 09/21/20 12:00 09/22/20 11:44 Amlodipine PO Not Given DAILY JAE Calcitriol 0.5 mcg 09/05/20 13:00 09/22/20 11:45 Rocaltrol PO Not Given QDAY JAE Dextrose 50 ml 09/11/20 19:09 D50w (25gm) Syringe IV Q30MIN PRN Hypoglycemia Protocol Ferrous Sulfate 308 mg 09/21/20 10:00 09/22/20 11:45 Ferrous Sulfate FEEDTUBE Not Given DAILY JAE Haloperidol Lactate 5 mg 09/11/20 19:10 Haldol IM Q6H PRN Agitation Hydralazine HCl 10 mg 09/10/20 22:23 09/14/20 05:46 Apresoline IV 10 mg Q6H PRN Administration Blood Pressure Insulin Human Lispro 0 unit 09/19/20 12:00 09/23/20 12:00 Humalog SUB-Q Not Given Q6HR [facility] Protocol Multivitamins 5 ml 09/18/20 10:00 09/22/20 11:44 Centrum Liq PO Not Given QDAY JAE Oxymetazoline HCl 2 spray 09/23/20 13:00 Vicks Sinex NS Q12H PRN Nasal Congestion Pantoprazole Sodium 40 mg 09/22/20 10:00 09/22/20 21:44 Protonix IV 40 mg BID JAE Administration Potassium Bicarbonate 50 meq 09/10/20 22:00 09/22/20 11:44 Klor-Con PO Not Given BID JAE Sertraline HCl 50 mg 09/02/20 10:00 09/22/20 11:45 Zoloft PO Not Given DAILY JAE Sodium Chloride 10 ml 09/02/20 10:00 09/22/20 21:44 Sodium Chloride Flush Syringe 10 Ml IV 10 ml BID JAE Administration Sodium Chloride 10 ml 09/02/20 00:30 Sodium Chloride Flush Syringe 10 Ml IV PRN PRN LINE FLUSH
[2020-09-23 15:31] LABS: Hemoglobin 8.1 gm/dl (10.1-14.3)
[2020-09-24] MEDS: INSULIN LISPRO 100 UNIT/ML VIAL 3 mL SUB-Q SCH ×4 (03:59→16:59)
[2020-09-24 06:26] LABS: Hematocrit 26.1 % (30.3-42.9); Hemoglobin 8.5 gm/dl (10.1-14.3); Mean Corpuscular HGB Conc 33 % (30-34); Mean Corpuscular Volume 86 fl (79-97); Red Blood Count 3.02 M/mm3 (3.65-5.03); Red Cell Distribution Width 18.2 % (13.2-15.2)
[2020-09-24 06:30] LABS: Platelet Count 70 K/mm3 (140-440)
[2020-09-24 06:51] LABS: Calcium 8.3 mg/dL (8.4-10.2)
[2020-09-24] MEDS: OXYMETAZOLINE 0.05% NASAL SPRAY NS SCH ×2 (09:38→22:39)
[2020-09-24] MEDS: K-LYTE 25 MEQ TABLET EFF PO SCH ×2 (09:38→22:39)
[2020-09-24] MEDS: FERROUS SULFATE 308 MG (62mg Elemental Iron) / 7 ML ELIXIR FEEDTUBE SCH (09:39)
[2020-09-24] MEDS: CALCITRIOL 0.5 MCG CAP PO SCH (09:39)
[2020-09-24] MEDS: MULTIVITAMINS 5 ML ORAL LIQUID PO SCH (09:39)
[2020-09-24] MEDS: amLODIPine 10 MG TAB PO SCH (09:39)
[2020-09-24] MEDS: SERTRALINE 50 MG TAB PO SCH (09:52)
[2020-09-24] MEDS ORDERED: D5W/0.45% NACL 1,000 ML IV SCH (10:00)
[2020-09-24] MEDS: PANTOPRAZOLE 40 MG INJ IV SCH ×2 (10:21→22:38)
--- NOTE | 2020-09-24 11:24 | Progress Note ---
Assessment and Plan Assessment and plan: --S/P Cardiorespiratory arrest on 09/17/20 Intubated on vent, pulmonary critical, cardiology following Patient was weaned and extubated yesterday Today patient is alert and awake on nasal cannula oxygen -- Acute delirium/acute metabolic encephalopathy Etiology unknown, likely initially was metabolic Significantly improved, neuro, psych consult as needed --Sepsis ;Due to COVID-19 pneumonia Received complete treatment,Blood culture NTD --Septic shock, status post pressor following cardiac arrest BP now stable, continue to monitor --COVID-19 pneumonia, POA Coronavirus protocol: Coronavirus PCR is positive, contact precaution, isolation precautions, prone positioning while in bed, Not a candidate for remdesivir due to renal failure Continue dexamethasone, s/p convalescent plasma --Acute on chronic anemia Due to chronic GI bleed and iron deficiency Status post transfusion of 3 units PRBC, PPI. Continue to monitor for GI bleed As per GI, does not look like patient is having GI bleed at this time Advance diet as tolerated --Possible GI bleed, chronic Advance diet, GI on board Recommended to manage medically --Acute kidney injury (DIRK) with acute tubular necrosis (ATN) Continue to monitor renal function Nephrology following closely --Hypernatremia Continue isotonic solution Nephrology on board --Bilateral lower extremity DVT, chronic Consulted vascular surgeon for consideration of IVC filter placement. As per vascular surgery, patient is not a good candidate for IVC filter pl acement INR 2.74. GI recommended to treat with aspirin only --Diabetes type II Accu-Chek sliding scale coverage ADA diet Insulin as needed --Ongoing tobacco use; Smoking cessation counseling Nicotine patch as needed --EPIXTASIS --DVT prophylaxis, Anticoagulation --full code status Bedside swallow eval versus speech therapy swallow eval Patient is stable to be transferred out of ICU to medical floor. Physical therapy occupational therapy The high probability of a clinically significant, sudden or life threatening deterioration of the [ANALYTICAL DATA MINER, CVS, respiratory, renal, GI] system(s) required my full and direct attention, intervention and personal management. The aggregate critical care time was [35] minutes. This time is in addition to time spent performing reported procedures but includes the following: [x] Data Review and interpretation [x] Patient assessment and monitoring of vital signs [x] Documentation [x] Medication orders and management Plan of care reviewed with the patient and her nurse Brief History; 64 YO Female with HTN, DM, Anemia, PVD, Nicotine Dependence, positive coronavirus test recently at [place] presented to the emergency room for further evaluation. Patient states that she has experienced subjective fever, generalized weakness, body aches, shortness of breath, nausea, multiple loose stools, lower extremity edema over the past 1 week with progressively worsening symptoms over the past 3 to 4 days prior to presentation. Here, patient found to be hypotensive with a systolic blood pressure ranging from 53-94. Patient was also hypothermic with a body temperature of 93.3 F. Patient met criteria for sepsis protocol and found to have bilateral pneumonia, metabolic acidosis, acute kidney injury. Patient admitted to telemetry due to increased risk of multisystem decompensation. Patient initiated on coronavirus protocol. Coronavirus PCR has been ordered, Patient remained hypotensive in spite of IV fluid resuscitation therapy. Patient subsequently upgraded to IMCU. Her repeat COVID-19 test was positive. She was treated with dexamethasone daily for 10 days. Remdesivir could not be given because of worsening renal function. Did receive convalescent plasma. Patient was downgraded to MedSurg. Patient did have on and off delirium recovering restrain. But she was clinically improving and was planning for discharge. On 09/17 morning she developed cardiorespiratory arrest following a coffee-ground emesis. Patient was intubated and transferred to ICU, critical care was consulted, placed on pressor support for hypotension. Family updated and wanted to continue aggressive care. s/p extubation today. daily course: 09/03. While in the ER, patient had an ultrasound Doppler performed that showed bilateral DVT involving the iliac veins. Patient was started on heparin drip. ID consulted for COVID-19 and nephrology consulted for DIRK. Patient seen and examined at bedside this morning. She has no complaints this morning. Her hemoglobin dropped to 6.4 this morning. Patient will get transfused 1 unit of PRBCs. Later this p.m., was notified by nurse that patient is having tarry dark stool and hematemesis. Heparin drip discontinued. Patient started on PPI drip and made n.p.o. GI is has been consulted. Patient will need to have an upper endoscopy. She has bilateral lower extremity DVT and will need vascular surgery evaluation to determine if she is a candidate for IVC filter placement. 09/04. Patient seen and examined at bedside this morning. Labs reviewed showed hemoglobin 5.3. Patient will receive 2 units PRBCs. FFP also ordered. GI evaluation pending. Continue PPIs. Vascular surgeon to see to determine if patient is a candidate for IVC filter placement for DVT. 09/05. Hb stable this morning. GI on board. On PPI drip. 09/06. Gastroenterology and vascular surgery recommendations reviewed. Patient not a good candidate for IVC filter placement due to location of the clot/thrombosis. Plan is for patient to have anticoagulation on while monitoring hemoglobin. Patient's INR is more than 2 at this time so we will hold anticoagulation for now and monitor hemoglobin. Plan to initiate anticoagulation when INR is less than 2. We will preferably use heparin products as she has a high chance of bleeding. Continue to monitor hemoglobin. Hb 7.3 this a.m. 09/07. Hemoglobin 8.2 this AM. No clear signs of GI bleed. Her INR is 2.74. No need for initiation of AC for now as she INR is already therapeutic. Plan is to monitor for bleeding and if she remains stable, she will be started on anticoagulation for her bilateral DVT. Vascular surgery following-patient not a candidate for IVC catheter placement. GI recommendations appreciated 09/08: Patient is nonreactive to COVID-19 antibody, per ID order for convalescent plasma. Continue supportive care, follow clinically 09/09: Pending convalescent plasma transfusion, continue to follow inflammatory markers. Monitor H&H. Plan to start on aspirin tomorrow if INR and H&H stable 09/10: hb dropped to 6.8, transfuse one unit, discussed with GI - no plan for endoscopy now, cont to follow clinically 09/11: patient didn't get transfusion yesterday. became very agitated today, ord ered as needed haldol, cont iv fluid. monitor clinically 09/12: placed on restrain o/n. cont supportive care, lost IV line - ordered for midline. pending PRBC transfusion 09/13: monitor h/h, patient more clam today, continue supportive care, follow BMP - Na and Cr has been improving 09/14: cont to monitor, follow BMP, follow h/h. oral intake improved per RN 09/15: If h/h stable and Cr cont to improves will d/c in a day or two 09/16; spoke with daughter and updated her with patient's clinical condition. family willing to accept the patient tomorrow. RN reported some Nose bleeding earlier today, but now resolved. repeat h/h stable 09/17: had respiratory/cardiac arrest this am. patient transferred to ICU. updated family. will get CT head, patient now intubated, start on bicarbonate drip 09/18; remains unresponsive, NG tube placed and noted bolld from the NG tube, discussed with GI - recommended PRBC/FFP transfusion. patient remains unresponsive w/o sedation and intubated. Called daughter and updated. 09/19: - Patient had OG tube with initial bloody secretions on insertion but currently with dark greenish output. No active bloody output from the OG tube. Rectal tube with dark greenish bilious output. No clear signs of active on-going GI bleeding. Off levophed. Continue to monitor H&H, transfuse as needed. Patient remains unresponsive without any sedation. Poor prognosis which I discussed with the family 09/20: cont supportive care, wean off vent as tolerated. Updated family by phone 09/21: s/p extubation today. Continue to assess mental status. Continue s upportive care. We will stop the bicarbonate drip and start sodium bicarbonate with feeding tube. We will continue half-normal saline for now and monitor BMP daily, ordered speech eval. 09/22; patient was extubated yesterday, today doing well on nasal cannula oxygen, will request for swallow eval, and ordered diet as tolerated Will downgrade her to medical floor, she is still agitated will renew her restraints. Closely monitor DC planning per case management 09/23: Recurrent nosebleed. Rhino Rocket placed in the left nare. Afrin ordered twice daily. Aspiration precautions at this time. No worsening oxygen demand. Will monitor for additional 24 hours. Discharge planning from them. Discussed with nurses at bedside and also with patient. SCDs for DVT prophylaxis discontinue chemical chemoprophylaxis. 09/24: No further bleeding, possible Rhino rocket was replaced as it looks d ifferent, continue Afrin, MONITOR H/H and PLT. History Interval history: Patient seen and examined this morning, no worsening shortness of breath. No further nose bleed Hospitalist Physical - Physical exam Narrative exam: General appearance: Present: no acute distress, well-nourished, chronically ill- appearing - EENT Eyes: Present: PERRL, EOM intact, rhino rocket inplace. - Neck Neck: Present: supple, normal ROM - Respiratory Respiratory effort: normal Respiratory: bilateral: diminished, rhonchi, negative: rales, wheezing - Cardiovascular Rhythm: regular Heart Sounds: Present: S1 & S2 - Extremities Extremities: no ischemia, No edema - Abdominal General gastrointestinal: soft, non-tender, non-distended, normal bowel sounds - Integumentary Integumentary: Present: clear, warm - Psychiatric Psychiatric: appropriate mood/affect, cooperative - Neurologic Neurologic: moves all extremities - Patient Problems - Constitutional Vitals: Temp Pulse Resp BP Pulse Ox 97.8 F 58 L 20 141/64 94 09/24/20 05:07 09/24/20 06:30 09/24/20 05:07 09/24/20 06:30 09/24/20 05:07 General appearance: Present: no acute distress, well-nourished Results - Labs CBC & Chem 7: 09/24/20 04:52 09/24/20 04:52 Labs: Laboratory Last Values WBC 10.2 K/mm3 (4.5-11.0) 09/24/20 04:52 RBC 3.02 M/mm3 (3.65-5.03) L 09/24/20 04:52 Hgb 8.5 gm/dl (10.1-14.3) L 09/24/20 04:52 Hct 26.1 % (30.3-42.9) L 09/24/20 04:52 MCV 86 fl (79-97) 09/24/20 04:52 MCH 28 pg (28-32) 09/24/20 04:52 MCHC 33 % (30-34) 09/24/20 04:52 RDW 18.2 % (13.2-15.2) H 09/24/20 04:52 Plt Count 70 K/mm3 (140-440) L 09/24/20 04:52 Lymph % (Auto) Financial Compliance Examiner 09/22/20 08:00 [place] % (Auto) Financial Compliance Examiner 09/22/20 08:00 Eos % (Auto) Financial Compliance Examiner 09/22/20 08:00 Baso % (Auto) Financial Compliance Examiner 09/22/20 08:00 Lymph # (Auto) Financial Compliance Examiner 09/22/20 08:00 [place] # (Auto) Financial Compliance Examiner 09/22/20 08:00 Eos # (Auto) 0.0 K/mm3 (0.0-0.4) 09/08/20 05:18 Baso # (Auto) 0.0 K/mm3 (0.0-0.1) 09/08/20 05:18 Add Manual Diff Complete 09/22/20 08:00 Total Counted 100 09/22/20 08:00 Seg Neutrophils % Financial Compliance Examiner 09/22/20 08:00 Seg Neuts % (Manual) 99.0 % (40.0-70.0) H 09/22/20 08:00 Band Neutrophils % 0 % 09/22/20 08:00 Lymphocytes % (Manual) 0 % (13.4-35.0) L 09/22/20 08:00 Reactive Lymphs % (Man) 0 % 09/22/20 08:00 Monocytes % (Manual) 1.0 % (0.0-7.3) 09/22/20 08:00 Eosinophils % (Manual) 0 % (0.0-4.3) 09/22/20 08:00 Basophils % (Manual) 0 % (0.0-1.8) 09/22/20 08:00 Metamyelocytes % 0 % 09/22/20 08:00 Myelocytes % 0 % 09/22/20 08:00 Promyelocytes % 0 % 09/22/20 08:00 Blast Cells % 0 % 09/22/20 08:00 Nucleated RBC % 1.0 % (0.0-0.9) H 09/22/20 08:00 Seg Neutrophils # 9.5 K/mm3 (1.8-7.7) H 09/08/20 05:18 Seg Neutrophils # Man 11.3 K/mm3 (1.8-7.7) H 09/22/20 08:00 Band Neutrophils # 0.0 K/mm3 09/22/20 08:00 Lymphocytes # (Manual) 0.0 K/mm3 (1.2-5.4) L 09/22/20 08:00 Abs React Lymphs (Man) 0.0 K/mm3 09/22/20 08:00 Monocytes # (Manual) 0.1 K/mm3 (0.0-0.8) 09/22/20 08:00 Eosinophils # (Manual) 0.0 K/mm3 (0.0-0.4) 09/22/20 08:00 Basophils # (Manual) 0.0 K/mm3 (0.0-0.1) 09/22/20 08:00 Metamyelocytes # 0.0 K/mm3 09/22/20 08:00 Myelocytes # 0.0 K/mm3 09/22/20 08:00 Promyelocytes # 0.0 K/mm3 09/22/20 08:00 Blast Cells # 0.0 K/mm3 09/22/20 08:00 WBC Morphology Not Reportable 09/22/20 08:00 Hypersegmented Neuts Not Reportable 09/22/20 08:00 Hyposegmented Neuts Not Reportable 09/22/20 08:00 Hypogranular Neuts Not Reportable 09/22/20 08:00 Smudge Cells Not Reportable 09/22/20 08:00 Toxic Granulation Not Reportable 09/22/20 08:00 Toxic Vacuolation Not Reportable 09/22/20 08:00 Dohle Bodies Not Reportable 09/22/20 08:00 Pelger-Huet Anomaly Not Reportable 09/22/20 08:00 Ignacia Rods Not Reportable 09/22/20 08:00 Platelet Estimate Consistent w auto 09/22/20 08:00 Clumped Platelets Not Reportable 09/22/20 08:00 Plt Clumps, EDTA Not Reportable 09/22/20 08:00 Large Platelets Not Reportable 09/22/20 08:00 Giant Platelets Not Reportable 09/22/20 08:00 Platelet Satelliting Not Reportable 09/22/20 08:00 Plt Morphology Comment Not Reportable 09/22/20 08:00 RBC Morphology Not Reportable 09/22/20 08:00 Dimorphic RBCs Not Reportable 09/22/20 08:00 Polychromasia Not Reportable 09/22/20 08:00 Hypochromasia 1+ 09/22/20 08:00 Poikilocytosis 1+ 09/22/20 08:00 Anisocytosis Not Reportable 09/22/20 08:00 Microcytosis Not Reportable 09/22/20 08:00 Macrocytosis Not Reportable 09/22/20 08:00 Spherocytes Not Reportable 09/22/20 08:00 Pappenheimer Bodies Not Reportable 09/22/20 08:00 Sickle Cells Not Reportable 09/22/20 08:00 Target Cells Not Reportable 09/22/20 08:00 Tear Drop Cells Not Reportable 09/22/20 08:00 Ovalocytes Not Reportable 09/22/20 08:00 Helmet Cells Not Reportable 09/22/20 08:00 [place] Bodies Not Reportable 09/22/20 08:00 [place] Rings Not Reportable 09/22/20 08:00 [place] Cells 1+ 09/22/20 08:00 Bite Cells Not Reportable 09/22/20 08:00 Crenated Cell Not Reportable 09/22/20 08:00 Elliptocytes Not Reportable 09/22/20 08:00 Acanthocytes (Spur) Not Reportable 09/22/20 08:00 Rouleaux Not Reportable 09/22/20 08:00 Hemoglobin C Crystals Not Reportable 09/22/20 08:00 Schistocytes 1+ 09/22/20 08:00 Malaria parasites Not Reportable 09/22/20 08:00 [place] Bodies Not Reportable 09/22/20 08:00 Hem Pathologist Commnt No 09/22/20 08:00 PT 22.5 Sec. (12.2-14.9) H 09/19/20 08:50 INR 1.97 (0.87-1.13) H 09/19/20 08:50 APTT 29.2 Sec. (24.2-36.6) 09/02/20 13:52 D-Dimer 1076.18 ng/mlDDU (0-234) H 09/01/20 21:55 Heparin Anti-Xa Level 0.94 U.I./ml (0.3-0.7) H 09/03/20 05:17 ABG pH 7.441 (7.320-7.450) 09/21/20 03:25 POC ABG pCO2 28.2 mmHg (32.0-48.0) L 09/21/20 03:25 POC ABG pO2 112.5 mmHg (83-108) H 09/21/20 03:25 POC ABG HCO3 18.8 09/21/20 03:25 POC ABG Base Excess -4.5 09/21/20 03:25 ABG Hemoglobin 9.4 (12.0-17.5) L 09/21/20 03:25 ABG Sodium 136.3 mmol/L (136.0-145.0) 09/21/20 03:25 ABG Potassium 4.4 mmol/L (3.40-4.50) 09/21/20 03:25 ABG Chloride 110.0 mmol/L (98-107) H 09/21/20 03:25 ABG Glucose 163 mg/dL (65-95) H 09/21/20 03:25 FiO2 40.0 09/21/20 03:25 Sodium 144 mmol/L (137-145) D 09/24/20 04:52 Potassium 4.5 mmol/L (3.6-5.0) 09/24/20 04:52 Chloride 110.4 mmol/L (98-107) H 09/24/20 04:52 Carbon Dioxide 17 mmol/L (22-30) L 09/24/20 04:52 Anion Gap 21 mmol/L 09/24/20 04:52 BUN 51 mg/dL (7-17) H 09/24/20 04:52 Creatinine 2.0 mg/dL (0.6-1.2) H 09/24/20 04:52 Estimated GFR 30 ml/min 09/24/20 04:52 BUN/Creatinine Ratio 26 % 09/24/20 04:52 Glucose 119 mg/dL (65-100) H 09/24/20 04:52 POC Glucose 115 mg/dL (70-105) H 09/23/20 23:14 Lactic Acid 0.60 mmol/L (0.7-2.0) L 09/02/20 08:10 Calcium 8.3 mg/dL (8.4-10.2) L 09/24/20 04:52 Phosphorus 3.50 mg/dL (2.5-4.5) 09/06/20 06:43 Magnesium 2.20 mg/dL (1.7-2.3) 09/14/20 19:57 Iron 28 ug/dL (37-170) L 09/07/20 09:13 TIBC 188 mcg/dL (250-450) L 09/07/20 09:13 Ferritin 313.5 ng/mL (10.0-200.0) H 09/01/20 21:55 Total Bilirubin 0.70 mg/dL (0.1-1.2) 09/19/20 04:29 AST 29 units/L (5-40) 09/19/20 04:29 ALT 43 units/L (7-56) 09/19/20 04:29 Alkaline Phosphatase 185 units/L (35-129) H 09/19/20 04:29 Lactate Dehydrogenase 435 units/L (91-180) H 09/01/20 21:55 C-Reactive Protein 2.30 mg/dL (0.00-1.30) H 09/01/20 21:55 NT-Pro-B Natriuret Pep 55166 pg/mL (0-900) H 09/01/20 21:55 Serum Total Protein 4.3 g/dL (6.1-8.1) L 09/16/20 13:44 Total Protein 4.3 g/dL (6.3-8.2) L 09/19/20 04:29 Albumin 2.1 g/dL (3.9-5) L 09/19/20 04:29 Albumin/Globulin Ratio 1.0 % 09/19/20 04:29 Mxnum-7-Lbfdhdbci 0.5 g/dL (0.2-0.3) H 09/16/20 13:44 Frfpy-8-Jueywtiia 0.6 g/dL (0.5-0.9) 09/16/20 13:44 Beta Globulins 0.3 g/dL (0.2-0.5) 09/16/20 13:44 Gamma Globulins 0.8 g/dL (0.8-1.7) 09/16/20 13:44 Abnorm Protein Band 1 see below 09/16/20 13:44 PEP Interpretation see below H 09/16/20 13:44 Vitamin B12 843.2 pg/mL (211-911) 09/07/20 09:13 Procalcitonin 0.10 ng/mL (<0.15) 09/01/20 21:55 TSH 0.735 mlU/mL (0.270-4.200) 09/02/20 00:45 Free T4 0.92 ng/dL (0.76-1.46) 09/02/20 00:45 Free T4 0.94 ng/dL (0.76-1.46) 09/02/20 00:45 PTH Intact 820.4 pg/mL (15-65) H 09/04/20 05:18 Arterial Blood Glucose 163 mg/dL (65-95) H 09/21/20 03:25 Arterial Blood Ionized Calcium 4.7 mg/dL (4.6-5.3) 09/21/20 03:25 Urine Color Elena (Yellow) 09/02/20 03:44 Urine Turbidity Cloudy (Clear) 09/02/20 03:44 Urine pH 7.0 (5.0-7.0) 09/02/20 03:44 Ur Specific [place] 1.015 (1.003-1.030) 09/02/20 03:44 Urine Protein >500 mg/dL (Negative) 09/02/20 03:44 Urine Glucose (UA) Neg mg/dL (Negative) 09/02/20 03:44 Urine Ketones Neg mg/dL (Negative) 09/02/20 03:44 Urine Blood Neg (Negative) 09/02/20 03:44 Urine Nitrite Neg (Negative) 09/02/20 03:44 Urine Bilirubin Neg (Negative) 09/02/20 03:44 Urine Urobilinogen < 2.0 mg/dL (<2.0) 09/02/20 03:44 Ur Leukocyte Esterase Neg (Negative) 09/02/20 03:44 Urine WBC (Auto) < 1.0 /HPF (0.0-6.0) 09/02/20 03:44 Urine RBC (Auto) < 1.0 /HPF (0.0-6.0) 09/02/20 03:44 U Epithel Cells (Auto) < 1.0 /HPF (0-13.0) 09/02/20 03:44 Urine Bacteria (Auto) 2+ /HPF (Negative) 09/02/20 03:44 Urine Mucus Few /HPF 09/02/20 03:44 Urine Creatinine 43.2 mg/dL (0.1-20.0) H 09/06/20 06:52 Protein/Creatinin Ratio 6.90 09/06/20 06:52 Urine Sodium 84 mmol/L 09/06/20 06:52 Urine Total Protein 298 mg/dL (5-11.8) H 09/06/20 06:52 DEMARCUS Screen Negative (Negative) 09/17/20 00:10 Proteinase 3 (PR3) Ab <1.0 AI (<1.0) 09/17/20 00:10 Myeloperoxidase Ab <1.0 AI (<1.0) 09/17/20 00:10 Glomerular Base Mem IgG See scanned result 09/16/20 13:44 Complement C3 82 mg/dL (83-193) L 09/17/20 00:10 Complement C4 26 mg/dL (15-57) 09/17/20 00:10 C. difficile Tox (PCR) Negative (Negative) 09/02/20 13:05 Coronavirus (PCR) Positive (Negative) A 09/17/20 Unknown SARS-CoV-2 IgG Ab Nonreactive (NonReactive) 09/02/20 08:10 Blood Type O POSITIVE 09/17/20 13:49 Antibody Screen Negative 09/17/20 13:49 Crossmatch See Detail 09/17/20 13:49 - Diagnostic Impressions Diagnostic Impressions: Echocardiogram 09/22/20 13:29 Transthoracic Echocardiogram Indication: Cardiopulmonary arrest BP: 175/66 HR: 71 Conclusions *4-chamber dilated cardiomyopathy. *Global left ventricular systolic function is mildly decreased. *The estimated ejection fraction is 40-45%. *Mild concentric left ventricular hypertrophy is observed. *There is mild to moderate mitral regurgitation. *There is mild to moderate tricuspid regurgitation. *There is moderately-severe pulmonary hypertension. *The right ventricular systolic pressure is calculated at 62 mmHg. *There is a minimial pericardial effusion. Findings Left Ventricle: The left ventricular chamber size is mildly dilated. Mild concentric left ventricular hypertrophy is observed. Global left ventricular systolic function is mildly decreased. The estimated ejection fraction is 40-45%. Left Atrium: The left atrium is moderately dilated. Right Ventricle: The right ventricle is mildly dilated. The right ventricular global systolic function is mildly reduced. Right Atrium: The right atrium is moderately dilated. Aortic Valve: The aortic valve is trileaflet. The aortic valve leaflets are moderately thickened. There is no evidence of aortic regurgitation. There is no evidence of aortic stenosis. Mitral Valve: The mitral valve leaflets are mildly thickened. There is mild to moderate mitral regurgitation. There is no evidence of mitral stenosis. Tricuspid Valve: The tricuspid valve leaflets are normal. There is mild to moderate tricuspid regurgitation. The right ventricular systolic pressure is calculated at 62 mmHg. There is evidence of severe pulmonary hypertension. Pulmonic Valve: There is mild pulmonic regurgitation. Pericardium: There is a minimial pericardial effusion. Aorta: There is no dilatation of the ascending aorta. There is no dilatation of the aortic root. Venous: The inferior vena cava is dilated. Measurements Chambers 2D Name Value Normal Range IVSd (2D) 1.17 cm (0.6 - 1.1) LVPWd (2D) 1.15 cm (0.6 - 1.1) IVS:LVPW ratio (2D) 1.02 ratio - LVIDd (2D) 5 cm (3.7 - 5.6) LVIDs (2D) 3.71 cm (2 - 3.8) LV FS (Teichholz) (2D) 25.8 % - LV FS (cube) (2D) 25.8 % - EF Teichholz (2D) 50.4 % - Ao root diameter (2D) 2.6 cm (2 - 3.7) LA dimension (AP) 2D 5.1 cm (1.9 - 4) LA:Ao ratio (2D) 1.96 ratio - Volumes/Mass Name Value Normal Range LA ESV SP 4CH (MOD) 49 ml - LA ESV SP 2CH (MOD) 96 ml - LA ESV BP (MOD) 69 ml - LA ESV BP (MOD) index 33.2 ml/m2 - Diastolic/Systolic Function Name Value Normal Range MV E-wave Vmax 1.21 m/sec - MV deceleration time 254 msec - MV A-wave Vmax 1.12 m/sec - MV E:A ratio 1.1 ratio - Aortic Valve Name Value Normal Range AV VTI 31.1 cm - AV mean gradient 4 mmHg - LVOT diameter 2 cm - LVOT VTI 19.4 cm - LVOT mean gradient 2 mmHg - Mitral Valve Name Value Normal Range MV Vmax 1.44 m/sec - MV VTI 35.9 cm - MV peak gradient 8 mmHg - MV mean gradient 5 mmHg - MR Vmax 5.52 m/sec - Tricuspid Valve Name Value Normal Range TR Vmax 3.52 m/sec - TR peak gradient 50 mmHg - RVSP 62 mmHg - [place]/IV: Voiding Method Indwelling Catheter IV Catheter Type [Left Upper PICC Line arm] IV Catheter Type [Right INT / Saline Lock Forearm] IV Catheter Type [Left INT / Saline Lock Antecubital] IV Catheter Type [Right Hand] INT / Saline Lock IV Catheter Type [Right Upper Mid-line arm] IV Catheter Type [Right INT / Saline Lock External Jugular] Active Medications - Current Medications Current Medications: Generic Name Dose Route Start Last Admin Trade Name Freq PRN Reason Stop Dose Admin Acetaminophen 650 mg 09/02/20 00:30 09/05/20 22:50 Tylenol PO 650 mg Q6H PRN Administration Pain, Mild (1-3) Amlodipine Besylate 10 mg 09/21/20 12:00 09/24/20 09:39 Amlodipine PO Not Given DAILY [facility] Calcitriol 0.5 mcg 09/05/20 13:00 09/24/20 09:39 Rocaltrol PO Not Given QDAY [facility] Dextrose 50 ml 09/11/20 19:09 D50w (25gm) Syringe IV Q30MIN PRN Hypoglycemia Protocol Ferrous Sulfate 308 mg 09/21/20 10:00 09/24/20 09:39 Ferrous Sulfate FEEDTUBE Not Given DAILY [facility] Haloperidol Lactate 5 mg 09/11/20 19:10 Haldol IM Q6H PRN Agitation Hydralazine HCl 10 mg 09/10/20 22:23 09/14/20 05:46 Apresoline IV 10 mg Q6H PRN Administration Blood Pressure Dextrose/Sodium Chloride 1,000 mls @ 42 mls/hr 09/24/20 10:00 09/24/20 10:20 D5/0.45ns IV 42 mls/hr DIRECT JAE Administration Insulin Human Lispro 0 unit 09/19/20 12:00 09/24/20 08:10 Humalog SUB-Q Not Given Q6HR [facility] Protocol Multivitamins 5 ml 09/18/20 10:00 09/24/20 09:39 Centrum Liq PO Not Given QDAY [facility] Oxymetazoline HCl 2 spray 09/24/20 08:00 09/24/20 09:38 Vicks Sinex NS 09/27/20 07:59 Not Given Q12H [facility] Pantoprazole Sodium 40 mg 09/22/20 10:00 09/24/20 10:21 Protonix IV 40 mg BID JAE Administration Potassium Bicarbonate 50 meq 09/10/20 22:00 09/24/20 09:38 Klor-Con PO Not Given BID [facility] Sertraline HCl 50 mg 09/02/20 10:00 11/26/20 09:52 Zoloft PO Not Given DAILY JAE Sodium Chloride 10 ml 09/02/20 10:00 09/24/20 10:21 Sodium Chloride Flush Syringe 10 Ml IV 10 ml BID JAE Administration Sodium Chloride 10 ml 09/02/20 00:30 Sodium Chloride Flush Syringe 10 Ml IV PRN PRN LINE FLUSH Nutrition/Malnutrition Assess - Dietary Evaluation Nutrition/Malnutrition Findings: Nutrition Notes Start: 09/03/20 13:19 Freq: Status: Active Protocol: Document 09/23/20 14:11 LM (Rec: 09/23/20 14:15 LM [id number]) Nutrition Notes Initial or Follow up Reassessment Current Diagnosis Acute Kidney Injury,Diabetes Other Pertinent Diagnosis COVID-19 (+), pneu, anemia, bilat BKA, erosive esophagitis Current Diet No diet Labs/Tests BUN 52 Cr 2.1 Pertinent Medications Reviewed Height 5 ft 6 in Weight 103 kg [place] Body Weight (kg) 59.09 BMI 36.6 Weight Status Obese Subjective/Other Information Pt extbated and ORCHARDIST consulted. Percent of energy/protein needs met: 0%/0% Burn Absent Trauma Absent GI Symptoms Diarrhea Difficulty In Swallowing Current % PO Negligible Minimum of two criteria No physical signs of malnutrition #1 Nutrition Diagnosis Inadequate oral intake Diagnosis Progress(for reassessment Continues documentation) Is patient on ventilator? No Is Patient Ambulatory and/or Out of Bed No REE-([facility]-confined to bed) 1926.912 Kcal/Kg value to use for calculation 16 Approximate Energy Requirements Using 1648 kcal/Kg Calculation Used for Recommendations Kcal/kg Additional Notes Protein: 65-81g (0.8-1.2g/kg using AdjBW 81kg) Fluid: 1ml/kcal Nutrition Intervention Change Diet Order: Per ORCHARDIST Nutrition Support: D/C Goal #1 Diet advancement Anticipated Discharge Needs: Unable to determine at this time Follow-Up By: 09/25/20 Additional Comments F/U for diet advancement
--- NOTE | 2020-09-24 11:37 | Progress Note ---
Subjective Date of service: 09/24/20 Principal diagnosis: Iron Def Anemia Interval history: Assessment and Plan - Patient Problems (1) Cardiopulmonary arrest with successful resuscitation Current Visit: Yes Status: Acute Plan to address problem: Patient is event with acute pulmonary arrest manifested by pulseless electrical activity likely suggestive of a primary pulmonary arrest. No urgency for stress imaging at this time, the pt should receive medical threapy, she is functionally debilitated. PEA likely due to PE, not ischemic CMP. Subjective Date of service: 09/24/20 Principal diagnosis: Iron Def Anemia Interval history: Patient is comfortably no acute distress, currently on the medical floor. She was admitted with Covid 19 pneumonia, and after 2 weeks of supportive care, developed transient respiratory arrest characterized by pulseless electrical activity. Otherwise, no evidence for primary cardiac event. Echocardiogram shows very mild decrease in left ventricular systolic function, but more significantly dilated right heart chambers consistent with cor pulmonale or acute pulmonary embolism. Patient was reported with a lower extremity DVT at the time of her hospitalization, but oral anticoagulation was contraindicated by a suspected GI bleed. Objective Vital Signs Temp Pulse Resp Resp BP BP Pulse Ox 09/24/20 06:30 58 L 141/64 09/24/20 05:07 97.8 F 54 L 20 180/87 94 09/24/20 01:00 7 L 09/23/20 23:06 98 09/23/20 22:53 65 17 160/72 98 09/23/20 22:00 17 95 09/23/20 21:00 17 09/23/20 16:12 98.6 F 56 L 18 133/60 91 - Physical Examination General: No Apparent Distress, Cachectic HEENT: Positive: PERRL Neck: Positive: neck supple Cardiac: Positive: Reg Rate and Rhythm, S1/S2 Lungs: Positive: Normal Exam Neuro: Positive: Weakness Abdomen: Positive: Soft Skin: Positive: Clear Extremities: Absent: edema - Labs and Meds CBC 09/23/20 09/24/20 Range/Units 14:42 04:52 WBC 10.2 (4.5-11.0) K/mm3 RBC 3.02 L (3.65-5.03) M/mm3 Hgb 8.1 L 8.5 L (10.1-14.3) gm/dl Hct 25.0 L 26.1 L (30.3-42.9) % Plt Count 70 L (140-440) K/mm3 Comprehensive Metabolic Panel 09/24/20 Range/Units 04:52 Sodium 144 D (137-145) mmol/L Potassium 4.5 (3.6-5.0) mmol/L Chloride 110.4 H (98-107) mmol/L Carbon Dioxide 17 L (22-30) mmol/L BUN 51 H (7-17) mg/dL Creatinine 2.0 H (0.6-1.2) mg/dL Glucose 119 H (65-100) mg/dL Calcium 8.3 L (8.4-10.2) mg/dL
--- NOTE | 2020-09-24 13:23 | Progress Note ---
Assessment and Plan 1. Acute kidney injury: DIRK secondary to combination of Vasomotor nephropathy and severe sepsis. Renal US negative for hydro. Monitor renal function. Creatinine leveled off. Prior Creatinine was 1.2 in 2014. Likely CKD stage 4. Renal prognosis is guarded. Avoid nephrotoxic agents. Meds dosage based on GFR. 2. FEN: Hyperchloremic Metabolic acidosis, on Potassium bicarbonate, monitor. Sod bicarb drip. Hypernatremia, improved, monitor. Monitor lytes. 3. Nephrotic syndrome: Likely diabetic nephropathy. DEMRACUS, ANCA and GBM Ab are negative. Complements appears normal. SPE; too small of M spike. 4. Severe sepsis, POA, now with shock: Off pressors. 5. S/p Cardiac arrest. 6. Severe COVID infection: Seen by ID. 7. Acute hypoxic resp failure: Intubated post-arrest. S/p extubated. 8. Bilateral LE DVT, POA. 9. Microcytic anemia, POA: S/p PRBC. Monitor. Seen by GI. 10. Thrombocytopenia, POA. 11. Acute diarrhea: Likely associated with COVID-19 infection. C. difficile test negative. Subjective: Patient was seen and examined at the bedside. Examination: General appearance: well-developed, appears stated age, no distress, mittens HEENT: JAYCE Neck: Trachea midline Respiratory: ctab Cardiology: regular, S1S2, no murmur Gastrointestinal: normoactive bowel sounds, no tenderness, not distended Integumentary: no obvious rash Neurologic: lethargic, opens eyes, oriented to self Ext: trace dependent edema, b/l BKA : [place] catheter Subjective Date of service: 09/24/20 Principal diagnosis: Iron Def Anemia Objective - Vital Signs Vital signs: Vital Signs - 12hr 09/24/20 09/24/20 05:07 06:30 Temperature 97.8 F Pulse Rate 54 L 58 L Respiratory 20 Rate Blood Pressure 180/87 Blood Pressure 141/64 [Left] O2 Sat by Pulse 94 Oximetry - Lab 09/24/20 04:52 09/24/20 04:52 Most recent lab results ABG pH 7.441 (7.320-7.450) 09/21/20 03:25 Calcium 8.3 mg/dL (8.4-10.2) L 09/24/20 04:52 Phosphorus 3.50 mg/dL (2.5-4.5) 09/06/20 06:43 Magnesium 2.20 mg/dL (1.7-2.3) 09/14/20 19:57 Urine Creatinine 43.2 mg/dL (0.1-20.0) H 09/06/20 06:52 Urine Sodium 84 mmol/L 09/06/20 06:52 Urine Total Protein 298 mg/dL (5-11.8) H 09/06/20 06:52 Medications & Allergies - Medications Allergies/Adverse Reactions: Allergies No Known Allergies Allergy (Unverified 02/14/14 19:23) Home Medications: Home Medications Medication Instructions Recorded Confirmed Last Taken Type Aspirin [Dahlgren Aspirin] 81 mg PO DAILY 02/14/14 02/22/14 02/14/14 11:00 History Ferrous Sulfate [Feosol 325mg] 325 mg PO DAILY 02/14/14 02/22/14 02/14/14 11:00 History Sertraline [Zoloft] 50 mg PO DAILY 02/14/14 02/22/14 02/14/14 11:00 History amLODIPine 5 mg PO DAILY 02/14/14 02/22/14 02/14/14 11:00 History hydroCHLOROthiazide 25 mg PO DAILY 02/14/14 02/22/14 02/14/14 11:00 History [Hydrochlorothiazide] Aspirin EC [Ecotrin] 325 mg PO QDAY #60 tablet 09/17/20 Unknown Rx Insulin Glargine [Lantus VIAL] 14 units SUB-Q QHS 30 Days 09/17/20 Unknown Rx Pantoprazole [Protonix TAB] 40 mg PO BIDAC #60 tablet 09/17/20 Unknown Rx calcitrioL [Rocaltrol] 0.5 mcg PO QDAY #30 capsule 09/17/20 Unknown Rx metOLazone [Zaroxolyn] 10 mg PO QDAY #30 tablet 09/17/20 Unknown Rx Active Medications: Generic Name Dose Route Start Last Admin Trade Name Freq PRN Reason Stop Dose Admin Acetaminophen 650 mg 09/02/20 00:30 09/05/20 22:50 Tylenol PO 650 mg Q6H PRN Administration Pain, Mild (1-3) Amlodipine Besylate 10 mg 09/21/20 12:00 09/24/20 09:39 Amlodipine PO Not Given DAILY JAE Calcitriol 0.5 mcg 09/05/20 13:00 09/24/20 09:39 Rocaltrol PO Not Given QDAY JAE Dextrose 50 ml 09/11/20 19:09 D50w (25gm) Syringe IV Q30MIN PRN Hypoglycemia Protocol Ferrous Sulfate 308 mg 09/21/20 10:00 09/24/20 09:39 Ferrous Sulfate FEEDTUBE Not Given DAILY JAE Haloperidol Lactate 5 mg 09/11/20 19:10 Haldol IM Q6H PRN Agitation Hydralazine HCl 10 mg 09/10/20 22:23 09/14/20 05:46 Apresoline IV 10 mg Q6H PRN Administration Blood Pressure Dextrose/Sodium Chloride 1,000 mls @ 42 mls/hr 09/24/20 10:00 09/24/20 10:20 D5/0.45ns IV 42 mls/hr DIRECT JAE Administration Insulin Human Lispro 0 unit 09/19/20 12:00 09/24/20 12:25 Humalog SUB-Q Not Given Q6HR [facility] Protocol Multivitamins 5 ml 09/18/20 10:00 09/24/20 09:39 Centrum Liq PO Not Given QDAY [facility] Oxymetazoline HCl 2 spray 09/24/20 08:00 09/24/20 09:38 Vicks Sinex NS 09/27/20 07:59 Not Given Q12H JAE Pantoprazole Sodium 40 mg 09/22/20 10:00 09/24/20 10:21 Protonix IV 40 mg BID JAE Administration Potassium Bicarbonate 50 meq 09/10/20 22:00 09/24/20 09:38 Klor-Con PO Not Given BID JAE Sertraline HCl 50 mg 09/02/20 10:00 09/24/20 09:52 Zoloft PO Not Given DAILY JAE Sodium Chloride 10 ml 09/02/20 10:00 09/24/20 10:21 Sodium Chloride Flush Syringe 10 Ml IV 10 ml BID JAE Administration Sodium Chloride 10 ml 09/02/20 00:30 Sodium Chloride Flush Syringe 10 Ml IV PRN PRN LINE FLUSH
[2020-09-24] MEDS: SODIUM BICARBONATE 50 MEQ in DEXTROSE 5% IN WATER 1,000 ML IV SCH (15:13)
[2020-09-25] MEDS: INSULIN LISPRO 100 UNIT/ML VIAL 3 mL SUB-Q SCH ×4 (00:57→18:17)
[2020-09-25] MEDS: SODIUM BICARBONATE 50 MEQ in DEXTROSE 5% IN WATER 1,000 ML IV SCH ×3 (06:01→22:07)
[2020-09-25] MEDS: OXYMETAZOLINE 0.05% NASAL SPRAY NS SCH ×2 (09:16→22:10)
--- NOTE | 2020-09-25 10:07 | Progress Note ---
Assessment and Plan 1. Acute kidney injury: DIRK secondary to combination of Vasomotor nephropathy and severe sepsis. Renal US negative for hydro. Monitor renal function. Creatinine leveled off. Prior Creatinine was 1.2 in 2014. Likely CKD stage 4. Renal prognosis is guarded. Avoid nephrotoxic agents. Meds dosage based on GFR. 2. FEN: Hyperchloremic Metabolic acidosis, on Potassium bicarbonate, monitor. Sod bicarb drip. Hypernatremia, improved, monitor. Monitor lytes. 3. Nephrotic syndrome: Likely diabetic nephropathy. DEMARCUS, ANCA and GBM Ab are negative. Complements appears normal. SPE; too small of M spike. 4. Severe sepsis, POA, now with shock: Off pressors. 5. S/p Cardiac arrest. 6. Severe COVID infection: Seen by ID. 7. Acute hypoxic resp failure: Intubated post-arrest. S/p extubated. 8. Bilateral LE DVT, POA. 9. Microcytic anemia, POA: S/p PRBC. Monitor. Seen by GI. 10. Thrombocytopenia, POA. 11. Acute diarrhea: Likely associated with COVID-19 infection. C. difficile test negative. Subjective: Patient was seen and examined at the bedside. Examination: General appearance: well-developed, appears stated age, no distress, mittens HEENT: JAYCE Neck: Trachea midline Respiratory: ctab Cardiology: regular, S1S2, no murmur Gastrointestinal: normoactive bowel sounds, no tenderness, not distended Integumentary: no obvious rash Neurologic: lethargic, opens eyes, oriented to self Ext: trace dependent edema, b/l BKA : [place] catheter Subjective Date of service: 09/25/20 Principal diagnosis: Iron Def Anemia Objective - Vital Signs Vital signs: Vital Signs - 12hr 09/24/20 09/25/20 09/25/20 22:38 02:30 04:48 Temperature 97.3 F L Pulse Rate 51 L 62 Respiratory 22 Rate Blood Pressure 133/75 O2 Sat by Pulse 91 97 Oximetry - Lab 09/25/20 15:25 09/25/20 15:25 Most recent lab results ABG pH 7.441 (7.320-7.450) 09/21/20 03:25 Calcium 8.3 mg/dL (8.4-10.2) L 09/24/20 04:52 Phosphorus 3.50 mg/dL (2.5-4.5) 09/06/20 06:43 Magnesium 2.20 mg/dL (1.7-2.3) 09/14/20 19:57 Urine Creatinine 43.2 mg/dL (0.1-20.0) H 09/06/20 06:52 Urine Sodium 84 mmol/L 09/06/20 06:52 Urine Total Protein 298 mg/dL (5-11.8) H 09/06/20 06:52 Medications & Allergies - Medications Allergies/Adverse Reactions: Allergies No Known Allergies Allergy (Unverified 02/14/14 19:23) Home Medications: Home Medications Medication Instructions Recorded Confirmed Last Taken Type Aspirin [[place] Aspirin] 81 mg PO DAILY 02/14/14 02/22/14 02/14/14 11:00 History Ferrous Sulfate [Feosol 325mg] 325 mg PO DAILY 02/14/14 02/22/14 02/14/14 11:00 History Sertraline [Zoloft] 50 mg PO DAILY 02/14/14 02/22/14 02/14/14 11:00 History amLODIPine 5 mg PO DAILY 02/14/14 02/22/14 02/14/14 11:00 History hydroCHLOROthiazide 25 mg PO DAILY 02/14/14 02/22/14 02/14/14 11:00 History [Hydrochlorothiazide] Aspirin EC [Ecotrin] 325 mg PO QDAY #60 tablet 09/17/20 Unknown Rx Insulin Glargine [Lantus VIAL] 14 units SUB-Q QHS 30 Days 09/17/20 Unknown Rx Pantoprazole [Protonix TAB] 40 mg PO BIDAC #60 tablet 09/17/20 Unknown Rx calcitrioL [Rocaltrol] 0.5 mcg PO QDAY #30 capsule 09/17/20 Unknown Rx metOLazone [Zaroxolyn] 10 mg PO QDAY #30 tablet 09/17/20 Unknown Rx Active Medications: Generic Name Dose Route Start Last Admin Trade Name Freq PRN Reason Stop Dose Admin Acetaminophen 650 mg 09/02/20 00:30 09/05/20 22:50 Tylenol PO 650 mg Q6H PRN Administration Pain, Mild (1-3) Amlodipine Besylate 10 mg 09/21/20 12:00 09/24/20 09:39 Amlodipine PO Not Given DAILY JAE Calcitriol 0.5 mcg 09/05/20 13:00 09/24/20 09:39 Rocaltrol PO Not Given QDAY JAE Dextrose 50 ml 09/11/20 19:09 D50w (25gm) Syringe IV Q30MIN PRN Hypoglycemia Protocol Ferrous Sulfate 308 mg 09/21/20 10:00 09/24/20 09:39 Ferrous Sulfate FEEDTUBE Not Given DAILY JAE Haloperidol Lactate 5 mg 09/11/20 19:10 Haldol IM Q6H PRN Agitation Hydralazine HCl 10 mg 09/10/20 22:23 09/14/20 05:46 Apresoline IV 10 mg Q6H PRN Administration Blood Pressure Sodium Bicarbonate 50 meq/ 1,050 mls @ 75 mls/hr 09/24/20 15:00 09/25/20 06:01 Dextrose IV 75 mls/hr DIRECT JAE Administration Insulin Human Lispro 0 unit 09/19/20 12:00 09/25/20 06:28 Humalog SUB-Q 2 unit Q6HR JAE Administration Protocol Multivitamins 5 ml 09/18/20 10:00 09/24/20 09:39 Centrum Liq PO Not Given QDAY JAE Oxymetazoline HCl 2 spray 09/24/20 08:00 09/24/20 22:39 Vicks Sinex NS 09/27/20 07:59 Not Given Q12H JAE Pantoprazole Sodium 40 mg 09/22/20 10:00 09/24/20 22:38 Protonix IV 40 mg BID JAE Administration Potassium Bicarbonate 50 meq 09/10/20 22:00 09/24/20 22:39 Klor-Con PO Not Given BID JAE Sertraline HCl 50 mg 09/02/20 10:00 09/24/20 09:52 Zoloft PO Not Given DAILY JAE Sodium Chloride 10 ml 09/02/20 10:00 09/24/20 22:38 Sodium Chloride Flush Syringe 10 Ml IV 10 ml BID JAE Administration Sodium Chloride 10 ml 09/02/20 00:30 Sodium Chloride Flush Syringe 10 Ml IV PRN PRN LINE FLUSH
[2020-09-25] MEDS: PANTOPRAZOLE 40 MG INJ IV SCH ×2 (10:14→22:08)
[2020-09-25] MEDS: amLODIPine 10 MG TAB PO SCH (10:14)
[2020-09-25] MEDS: K-LYTE 25 MEQ TABLET EFF PO SCH ×2 (10:14→22:07)
[2020-09-25] MEDS: CALCITRIOL 0.5 MCG CAP PO SCH (10:14)
[2020-09-25] MEDS: FERROUS SULFATE 308 MG (62mg Elemental Iron) / 7 ML ELIXIR FEEDTUBE SCH (10:14)
[2020-09-25] MEDS: MULTIVITAMINS 5 ML ORAL LIQUID PO SCH (10:15)
[2020-09-25] MEDS: SERTRALINE 50 MG TAB PO SCH (10:15)
--- NOTE | 2020-09-25 10:45 | Progress Note ---
Assessment and Plan Assessment and plan: --S/P Cardiorespiratory arrest on 09/17/20 Intubated on vent, pulmonary critical, cardiology following Patient was weaned and extubated yesterday Today patient is alert and awake on nasal cannula oxygen -- Acute delirium/acute metabolic encephalopathy Etiology unknown, likely initially was metabolic Significantly improved, neuro, psych consult as needed --Sepsis ;Due to COVID-19 pneumonia Received complete treatment,Blood culture NTD --Septic shock, status post pressor following cardiac arrest BP now stable, continue to monitor --COVID-19 pneumonia, POA Coronavirus protocol: Coronavirus PCR is positive, contact precaution, isolation precautions, prone positioning while in bed, Not a candidate for remdesivir due to renal failure Continue dexamethasone, s/p convalescent plasma --Acute on chronic anemia Due to chronic GI bleed and iron deficiency Status post transfusion of 3 units PRBC, PPI. Continue to monitor for GI bleed As per GI, does not look like patient is having GI bleed at this time Advance diet as tolerated --Possible GI bleed, chronic Advance diet, GI on board Recommended to manage medically --Acute kidney injury (DIRK) with acute tubular necrosis (ATN) Continue to monitor renal function Nephrology following closely --Hypernatremia Continue isotonic solution Nephrology on board --Bilateral lower extremity DVT, chronic Consulted vascular surgeon for consideration of IVC filter placement. As per vascular surgery, patient is not a good candidate for IVC filter pl acement INR 2.74. GI recommended to treat with aspirin only --Diabetes type II Accu-Chek sliding scale coverage ADA diet Insulin as needed --Ongoing tobacco use; Smoking cessation counseling Nicotine patch as needed --EPIXTASIS --DVT prophylaxis, Anticoagulation --full code status Bedside swallow eval versus speech therapy swallow eval Patient is stable to be transferred out of ICU to medical floor. 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 The aggregate critical care time was [35] minutes. This time is in addition to time spent performing reported procedures but includes the following: [x] Data Review and interpretation [x] Patient assessment and monitoring of vital signs [x] Documentation [x] Medication orders and management Plan of care reviewed with the patient and her nurse Brief History; 64 YO Female with HTN, DM, Anemia, PVD, Nicotine Dependence, positive coronavirus test recently at [place] presented to the emergency room for further evaluation. Patient states that she has experienced subjective fever, generalized weakness, body aches, shortness of breath, nausea, multiple loose stools, lower extremity edema over the past 1 week with progressively worsening symptoms over the past 3 to 4 days prior to presentation. Here, patient found to be hypotensive with a systolic blood pressure ranging from 53-94. Patient was also hypothermic with a body temperature of 93.3 F. Patient met criteria for sepsis protocol and found to have bilateral pneumonia, metabolic acidosis, acute kidney injury. Patient admitted to telemetry due to increased risk of multisystem decompensation. Patient initiated on coronavirus protocol. Coronavirus PCR has been ordered, Patient remained hypotensive in spite of IV fluid resuscitation therapy. Patient subsequently upgraded to IMCU. Her repeat COVID-19 test was positive. She was treated with dexamethasone daily for 10 days. Remdesivir could not be given because of worsening renal function. Did receive convalescent plasma. Patient was downgraded to MedSurg. Patient did have on and off delirium recovering restrain. But she was clinically improving and was planning for discharge. On 09/17 morning she developed cardiorespiratory arrest following a coffee-ground emesis. Patient was intubated and transferred to ICU, critical care was consulted, placed on pressor support for hypotension. Family updated and wanted to continue aggressive care. s/p extubation today. daily course: 09/03. While in the ER, patient had an ultrasound Doppler performed that showed bilateral DVT involving the iliac veins. Patient was started on heparin drip. ID consulted for COVID-19 and nephrology consulted for DIRK. Patient seen and examined at bedside this morning. She has no complaints this morning. Her hemoglobin dropped to 6.4 this morning. Patient will get transfused 1 unit of PRBCs. Later this p.m., was notified by nurse that patient is having tarry dark stool and hematemesis. Heparin drip discontinued. Patient started on PPI drip and made n.p.o. GI is has been consulted. Patient will need to have an upper endoscopy. She has bilateral lower extremity DVT and will need vascular surgery evaluation to determine if she is a candidate for IVC filter placement. 09/04. Patient seen and examined at bedside this morning. Labs reviewed showed hemoglobin 5.3. Patient will receive 2 units PRBCs. FFP also ordered. GI evaluation pending. Continue PPIs. Vascular surgeon to see to determine if patient is a candidate for IVC filter placement for DVT. 09/05. Hb stable this morning. GI on board. On PPI drip. 09/06. Gastroenterology and vascular surgery recommendations reviewed. Patient not a good candidate for IVC filter placement due to location of the clot/thrombosis. Plan is for patient to have anticoagulation on while monitoring hemoglobin. Patient's INR is more than 2 at this time so we will hold anticoagulation for now and monitor hemoglobin. Plan to initiate anticoagulation when INR is less than 2. We will preferably use heparin products as she has a high chance of bleeding. Continue to monitor hemoglobin. Hb 7.3 this a.m. 09/07. Hemoglobin 8.2 this AM. No clear signs of GI bleed. Her INR is 2.74. No need for initiation of AC for now as she INR is already therapeutic. Plan is to monitor for bleeding and if she remains stable, she will be started on anticoagulation for her bilateral DVT. Vascular surgery following-patient not a candidate for IVC catheter placement. GI recommendations appreciated 09/08: Patient is nonreactive to COVID-19 antibody, per ID order for convalescent plasma. Continue supportive care, follow clinically 09/09: Pending convalescent plasma transfusion, continue to follow inflammatory markers. Monitor H&H. Plan to start on aspirin tomorrow if INR and H&H stable 09/10: hb dropped to 6.8, transfuse one unit, discussed with GI - no plan for endoscopy now, cont to follow clinically 09/11: patient didn't get transfusion yesterday. became very agitated today, ord ered as needed haldol, cont iv fluid. monitor clinically 09/12: placed on restrain o/n. cont supportive care, lost IV line - ordered for midline. pending PRBC transfusion 09/13: monitor h/h, patient more clam today, continue supportive care, follow BMP - Na and Cr has been improving 09/14: cont to monitor, follow BMP, follow h/h. oral intake improved per RN 09/15: If h/h stable and Cr cont to improves will d/c in a day or two 09/16; spoke with daughter and updated her with patient's clinical condition. family willing to accept the patient tomorrow. RN reported some Nose bleeding earlier today, but now resolved. repeat h/h stable 09/17: had respiratory/cardiac arrest this am. patient transferred to ICU. updated family. will get CT head, patient now intubated, start on bicarbonate drip 09/18; remains unresponsive, NG tube placed and noted bolld from the NG tube, discussed with GI - recommended PRBC/FFP transfusion. patient remains unresponsive w/o sedation and intubated. Called daughter and updated. 09/19: - Patient had OG tube with initial bloody secretions on insertion but currently with dark greenish output. No active bloody output from the OG tube. Rectal tube with dark greenish bilious output. No clear signs of active on-going GI bleeding. Off levophed. Continue to monitor H&H, transfuse as needed. Patient remains unresponsive without any sedation. Poor prognosis which I discussed with the family 09/20: cont supportive care, wean off vent as tolerated. Updated family by phone 09/21: s/p extubation today. Continue to assess mental status. Continue s upportive care. We will stop the bicarbonate drip and start sodium bicarbonate with feeding tube. We will continue half-normal saline for now and monitor BMP daily, ordered speech eval. 09/22; patient was extubated yesterday, today doing well on nasal cannula oxygen, will request for swallow eval, and ordered diet as tolerated Will downgrade her to medical floor, she is still agitated will renew her restraints. Closely monitor DC planning per case management 09/23: Recurrent nosebleed. Rhino Rocket placed in the left nare. Afrin ordered twice daily. Aspiration precautions at this time. No worsening oxygen demand. Will monitor for additional 24 hours. Discharge planning from them. Discussed with nurses at bedside and also with patient. SCDs for DVT prophylaxis discontinue chemical chemoprophylaxis. 09/24: No further bleeding, possible Rhino rocket was replaced as it looks d ifferent, continue Afrin, MONITOR H/H and PLT. 09/25: Clinically stable continue Afrin nose packing is out. Will reevaluate swallowing. Awaiting for cardiology clearance for possible PEG if continues to fail swallowing evaluation. Encourage movement as much as possible due to risk of History Interval history: Patient seen and examined this morning, no worsening shortness of breath. No further nose bleed, nose packing is out Hospitalist Physical - Physical exam Narrative exam: General appearance: Present: no acute distress, well-nourished, chronically ill- appearing - EENT Eyes: Present: PERRL, EOM intact, rhino rocket inplace. - Neck Neck: Present: supple, normal ROM - Respiratory Respiratory effort: normal Respiratory: bilateral: diminished, rhonchi, negative: rales, wheezing - Cardiovascular Rhythm: regular Heart Sounds: Present: S1 & S2 - Extremities Extremities: no ischemia, No edema - Abdominal General gastrointestinal: soft, non-tender, non-distended, normal bowel sounds - Integumentary Integumentary: Present: clear, warm - Psychiatric Psychiatric: appropriate mood/affect, cooperative - Neurologic Neurologic: moves all extremities - Patient Problems - Constitutional Vitals: Temp Pulse Resp BP Pulse Ox 97.3 F L 62 22 133/75 97 09/25/20 04:48 09/25/20 04:48 09/25/20 04:48 09/25/20 04:48 09/25/20 04:48 General appearance: Present: no acute distress, well-nourished Results - Labs CBC & Chem 7: 09/24/20 04:52 09/24/20 04:52 Labs: Laboratory Last Values WBC 10.2 K/mm3 (4.5-11.0) 09/24/20 04:52 RBC 3.02 M/mm3 (3.65-5.03) L 09/24/20 04:52 Hgb 8.5 gm/dl (10.1-14.3) L 09/24/20 04:52 Hct 26.1 % (30.3-42.9) L 09/24/20 04:52 MCV 86 fl (79-97) 09/24/20 04:52 MCH 28 pg (28-32) 09/24/20 04:52 MCHC 33 % (30-34) 09/24/20 04:52 RDW 18.2 % (13.2-15.2) H 09/24/20 04:52 Plt Count 70 K/mm3 (140-440) L 09/24/20 04:52 Lymph % (Auto) Computer Operations Analyst 09/22/20 08:00 [place] % (Auto) Computer Operations Analyst 09/22/20 08:00 Eos % (Auto) Computer Operations Analyst 09/22/20 08:00 Baso % (Auto) Computer Operations Analyst 09/22/20 08:00 Lymph # (Auto) Computer Operations Analyst 09/22/20 08:00 [place] # (Auto) Computer Operations Analyst 09/22/20 08:00 Eos # (Auto) 0.0 K/mm3 (0.0-0.4) 09/08/20 05:18 Baso # (Auto) 0.0 K/mm3 (0.0-0.1) 09/08/20 05:18 Add Manual Diff Complete 09/22/20 08:00 Total Counted 100 09/22/20 08:00 Seg Neutrophils % Computer Operations Analyst 09/22/20 08:00 Seg Neuts % (Manual) 99.0 % (40.0-70.0) H 09/22/20 08:00 Band Neutrophils % 0 % 09/22/20 08:00 Lymphocytes % (Manual) 0 % (13.4-35.0) L 09/22/20 08:00 Reactive Lymphs % (Man) 0 % 09/22/20 08:00 Monocytes % (Manual) 1.0 % (0.0-7.3) 09/22/20 08:00 Eosinophils % (Manual) 0 % (0.0-4.3) 09/22/20 08:00 Basophils % (Manual) 0 % (0.0-1.8) 09/22/20 08:00 Metamyelocytes % 0 % 09/22/20 08:00 Myelocytes % 0 % 09/22/20 08:00 Promyelocytes % 0 % 09/22/20 08:00 Blast Cells % 0 % 09/22/20 08:00 Nucleated RBC % 1.0 % (0.0-0.9) H 09/22/20 08:00 Seg Neutrophils # 9.5 K/mm3 (1.8-7.7) H 09/08/20 05:18 Seg Neutrophils # Man 11.3 K/mm3 (1.8-7.7) H 09/22/20 08:00 Band Neutrophils # 0.0 K/mm3 09/22/20 08:00 Lymphocytes # (Manual) 0.0 K/mm3 (1.2-5.4) L 09/22/20 08:00 Abs React Lymphs (Man) 0.0 K/mm3 09/22/20 08:00 Monocytes # (Manual) 0.1 K/mm3 (0.0-0.8) 09/22/20 08:00 Eosinophils # (Manual) 0.0 K/mm3 (0.0-0.4) 09/22/20 08:00 Basophils # (Manual) 0.0 K/mm3 (0.0-0.1) 09/22/20 08:00 Metamyelocytes # 0.0 K/mm3 09/22/20 08:00 Myelocytes # 0.0 K/mm3 09/22/20 08:00 Promyelocytes # 0.0 K/mm3 09/22/20 08:00 Blast Cells # 0.0 K/mm3 09/22/20 08:00 WBC Morphology Not Reportable 09/22/20 08:00 Hypersegmented Neuts Not Reportable 09/22/20 08:00 Hyposegmented Neuts Not Reportable 09/22/20 08:00 Hypogranular Neuts Not Reportable 09/22/20 08:00 Smudge Cells Not Reportable 09/22/20 08:00 Toxic Granulation Not Reportable 09/22/20 08:00 Toxic Vacuolation Not Reportable 09/22/20 08:00 Dohle Bodies Not Reportable 09/22/20 08:00 Pelger-Huet Anomaly Not Reportable 09/22/20 08:00 Ignacia Rods Not Reportable 09/22/20 08:00 Platelet Estimate Consistent w auto 09/22/20 08:00 Clumped Platelets Not Reportable 09/22/20 08:00 Plt Clumps, EDTA Not Reportable 09/22/20 08:00 Large Platelets Not Reportable 09/22/20 08:00 Giant Platelets Not Reportable 09/22/20 08:00 Platelet Satelliting Not Reportable 09/22/20 08:00 Plt Morphology Comment Not Reportable 09/22/20 08:00 RBC Morphology Not Reportable 09/22/20 08:00 Dimorphic RBCs Not Reportable 09/22/20 08:00 Polychromasia Not Reportable 09/22/20 08:00 Hypochromasia 1+ 09/22/20 08:00 Poikilocytosis 1+ 09/22/20 08:00 Anisocytosis Not Reportable 09/22/20 08:00 Microcytosis Not Reportable 09/22/20 08:00 Macrocytosis Not Reportable 09/22/20 08:00 Spherocytes Not Reportable 09/22/20 08:00 Pappenheimer Bodies Not Reportable 09/22/20 08:00 Sickle Cells Not Reportable 09/22/20 08:00 Target Cells Not Reportable 09/22/20 08:00 Tear Drop Cells Not Reportable 09/22/20 08:00 Ovalocytes Not Reportable 09/22/20 08:00 Helmet Cells Not Reportable 09/22/20 08:00 [place] Bodies Not Reportable 09/22/20 08:00 [place] Rings Not Reportable 09/22/20 08:00 [place] Cells 1+ 09/22/20 08:00 Bite Cells Not Reportable 09/22/20 08:00 Crenated Cell Not Reportable 09/22/20 08:00 Elliptocytes Not Reportable 09/22/20 08:00 Acanthocytes (Spur) Not Reportable 09/22/20 08:00 Rouleaux Not Reportable 09/22/20 08:00 Hemoglobin C Crystals Not Reportable 09/22/20 08:00 Schistocytes 1+ 09/22/20 08:00 Malaria parasites Not Reportable 09/22/20 08:00 [place] Bodies Not Reportable 09/22/20 08:00 Hem Pathologist Commnt No 09/22/20 08:00 PT 22.5 Sec. (12.2-14.9) H 09/19/20 08:50 INR 1.97 (0.87-1.13) H 09/19/20 08:50 APTT 29.2 Sec. (24.2-36.6) 09/02/20 13:52 D-Dimer 1076.18 ng/mlDDU (0-234) H 09/01/20 21:55 Heparin Anti-Xa Level 0.94 U.I./ml (0.3-0.7) H 09/03/20 05:17 ABG pH 7.441 (7.320-7.450) 09/21/20 03:25 POC ABG pCO2 28.2 mmHg (32.0-48.0) L 09/21/20 03:25 POC ABG pO2 112.5 mmHg (83-108) H 09/21/20 03:25 POC ABG HCO3 18.8 09/21/20 03:25 POC ABG Base Excess -4.5 09/21/20 03:25 ABG Hemoglobin 9.4 (12.0-17.5) L 09/21/20 03:25 ABG Sodium 136.3 mmol/L (136.0-145.0) 09/21/20 03:25 ABG Potassium 4.4 mmol/L (3.40-4.50) 09/21/20 03:25 ABG Chloride 110.0 mmol/L (98-107) H 09/21/20 03:25 ABG Glucose 163 mg/dL (65-95) H 09/21/20 03:25 FiO2 40.0 09/21/20 03:25 Sodium 144 mmol/L (137-145) D 09/24/20 04:52 Potassium 4.5 mmol/L (3.6-5.0) 09/24/20 04:52 Chloride 110.4 mmol/L (98-107) H 09/24/20 04:52 Carbon Dioxide 17 mmol/L (22-30) L 09/24/20 04:52 Anion Gap 21 mmol/L 09/24/20 04:52 BUN 51 mg/dL (7-17) H 09/24/20 04:52 Creatinine 2.0 mg/dL (0.6-1.2) H 09/24/20 04:52 Estimated GFR 30 ml/min 09/24/20 04:52 BUN/Creatinine Ratio 26 % 09/24/20 04:52 Glucose 119 mg/dL (65-100) H 09/24/20 04:52 POC Glucose 167 mg/dL (70-105) H 09/25/20 05:28 Lactic Acid 0.60 mmol/L (0.7-2.0) L 09/02/20 08:10 Calcium 8.3 mg/dL (8.4-10.2) L 09/24/20 04:52 Phosphorus 3.50 mg/dL (2.5-4.5) 09/06/20 06:43 Magnesium 2.20 mg/dL (1.7-2.3) 09/14/20 19:57 Iron 28 ug/dL (37-170) L 09/07/20 09:13 TIBC 188 mcg/dL (250-450) L 09/07/20 09:13 Ferritin 313.5 ng/mL (10.0-200.0) H 09/01/20 21:55 Total Bilirubin 0.70 mg/dL (0.1-1.2) 09/19/20 04:29 AST 29 units/L (5-40) 09/19/20 04:29 ALT 43 units/L (7-56) 09/19/20 04:29 Alkaline Phosphatase 185 units/L (35-129) H 09/19/20 04:29 Lactate Dehydrogenase 435 units/L (91-180) H 09/01/20 21:55 C-Reactive Protein 2.30 mg/dL (0.00-1.30) H 09/01/20 21:55 NT-Pro-B Natriuret Pep 82544 pg/mL (0-900) H 09/01/20 21:55 Serum Total Protein 4.3 g/dL (6.1-8.1) L 09/16/20 13:44 Total Protein 4.3 g/dL (6.3-8.2) L 09/19/20 04:29 Albumin 2.1 g/dL (3.9-5) L 09/19/20 04:29 Albumin/Globulin Ratio 1.0 % 09/19/20 04:29 Qkzrw-4-Sxauebkjj 0.5 g/dL (0.2-0.3) H 09/16/20 13:44 Ajqwt-7-Gwxovlfts 0.6 g/dL (0.5-0.9) 09/16/20 13:44 Beta Globulins 0.3 g/dL (0.2-0.5) 09/16/20 13:44 Gamma Globulins 0.8 g/dL (0.8-1.7) 09/16/20 13:44 Abnorm Protein Band 1 see below 09/16/20 13:44 PEP Interpretation see below H 09/16/20 13:44 Vitamin B12 843.2 pg/mL (211-911) 09/07/20 09:13 Procalcitonin 0.10 ng/mL (<0.15) 09/01/20 21:55 TSH 0.735 mlU/mL (0.270-4.200) 09/02/20 00:45 Free T4 0.92 ng/dL (0.76-1.46) 09/02/20 00:45 Free T4 0.94 ng/dL (0.76-1.46) 09/02/20 00:45 PTH Intact 820.4 pg/mL (15-65) H 09/04/20 05:18 Arterial Blood Glucose 163 mg/dL (65-95) H 09/21/20 03:25 Arterial Blood Ionized Calcium 4.7 mg/dL (4.6-5.3) 09/21/20 03:25 Urine Color Elena (Yellow) 09/02/20 03:44 Urine Turbidity Cloudy (Clear) 09/02/20 03:44 Urine pH 7.0 (5.0-7.0) 09/02/20 03:44 Ur Specific [place] 1.015 (1.003-1.030) 09/02/20 03:44 Urine Protein >500 mg/dL (Negative) 09/02/20 03:44 Urine Glucose (UA) Neg mg/dL (Negative) 09/02/20 03:44 Urine Ketones Neg mg/dL (Negative) 09/02/20 03:44 Urine Blood Neg (Negative) 09/02/20 03:44 Urine Nitrite Neg (Negative) 09/02/20 03:44 Urine Bilirubin Neg (Negative) 09/02/20 03:44 Urine Urobilinogen < 2.0 mg/dL (<2.0) 09/02/20 03:44 Ur Leukocyte Esterase Neg (Negative) 09/02/20 03:44 Urine WBC (Auto) < 1.0 /HPF (0.0-6.0) 09/02/20 03:44 Urine RBC (Auto) < 1.0 /HPF (0.0-6.0) 09/02/20 03:44 U Epithel Cells (Auto) < 1.0 /HPF (0-13.0) 09/02/20 03:44 Urine Bacteria (Auto) 2+ /HPF (Negative) 09/02/20 03:44 Urine Mucus Few /HPF 09/02/20 03:44 Urine Creatinine 43.2 mg/dL (0.1-20.0) H 09/06/20 06:52 Protein/Creatinin Ratio 6.90 09/06/20 06:52 Urine Sodium 84 mmol/L 09/06/20 06:52 Urine Total Protein 298 mg/dL (5-11.8) H 09/06/20 06:52 DEMARCUS Screen Negative (Negative) 09/17/20 00:10 Proteinase 3 (PR3) Ab <1.0 AI (<1.0) 09/17/20 00:10 Myeloperoxidase Ab <1.0 AI (<1.0) 09/17/20 00:10 Glomerular Base Mem IgG See scanned result 09/16/20 13:44 Complement C3 82 mg/dL (83-193) L 09/17/20 00:10 Complement C4 26 mg/dL (15-57) 09/17/20 00:10 C. difficile Tox (PCR) Negative (Negative) 09/02/20 13:05 Coronavirus (PCR) Positive (Negative) A 09/17/20 Unknown SARS-CoV-2 IgG Ab Nonreactive (NonReactive) 09/02/20 08:10 Blood Type O POSITIVE 09/17/20 13:49 Antibody Screen Negative 09/17/20 13:49 Crossmatch See Detail 09/17/20 13:49 - Diagnostic Impressions Diagnostic Impressions: Echocardiogram 09/22/20 13:29 Transthoracic Echocardiogram Indication: Cardiopulmonary arrest BP: 175/66 HR: 71 Conclusions *4-chamber dilated cardiomyopathy. *Global left ventricular systolic function is mildly decreased. *The estimated ejection fraction is 40-45%. *Mild concentric left ventricular hypertrophy is observed. *There is mild to moderate mitral regurgitation. *There is mild to moderate tricuspid regurgitation. *There is moderately-severe pulmonary hypertension. *The right ventricular systolic pressure is calculated at 62 mmHg. *There is a minimial pericardial effusion. Findings Left Ventricle: The left ventricular chamber size is mildly dilated. Mild concentric left ventricular hypertrophy is observed. Global left ventricular systolic function is mildly decreased. The estimated ejection fraction is 40-45%. Left Atrium: The left atrium is moderately dilated. Right Ventricle: The right ventricle is mildly dilated. The right ventricular global systolic function is mildly reduced. Right Atrium: The right atrium is moderately dilated. Aortic Valve: The aortic valve is trileaflet. The aortic valve leaflets are moderately thickened. There is no evidence of aortic regurgitation. There is no evidence of aortic stenosis. Mitral Valve: The mitral valve leaflets are mildly thickened. There is mild to moderate mitral regurgitation. There is no evidence of mitral stenosis. Tricuspid Valve: The tricuspid valve leaflets are normal. There is mild to moderate tricuspid regurgitation. The right ventricular systolic pressure is calculated at 62 mmHg. There is evidence of severe pulmonary hypertension. Pulmonic Valve: There is mild pulmonic regurgitation. Pericardium: There is a minimial pericardial effusion. Aorta: There is no dilatation of the ascending aorta. There is no dilatation of the aortic root. Venous: The inferior vena cava is dilated. Measurements Chambers 2D Name Value Normal Range IVSd (2D) 1.17 cm (0.6 - 1.1) LVPWd (2D) 1.15 cm (0.6 - 1.1) IVS:LVPW ratio (2D) 1.02 ratio - LVIDd (2D) 5 cm (3.7 - 5.6) LVIDs (2D) 3.71 cm (2 - 3.8) LV FS (Teichholz) (2D) 25.8 % - LV FS (cube) (2D) 25.8 % - EF Teichholz (2D) 50.4 % - Ao root diameter (2D) 2.6 cm (2 - 3.7) LA dimension (AP) 2D 5.1 cm (1.9 - 4) LA:Ao ratio (2D) 1.96 ratio - Volumes/Mass Name Value Normal Range LA ESV SP 4CH (MOD) 49 ml - LA ESV SP 2CH (MOD) 96 ml - LA ESV BP (MOD) 69 ml - LA ESV BP (MOD) index 33.2 ml/m2 - Diastolic/Systolic Function Name Value Normal Range MV E-wave Vmax 1.21 m/sec - MV deceleration time 254 msec - MV A-wave Vmax 1.12 m/sec - MV E:A ratio 1.1 ratio - Aortic Valve Name Value Normal Range AV VTI 31.1 cm - AV mean gradient 4 mmHg - LVOT diameter 2 cm - LVOT VTI 19.4 cm - LVOT mean gradient 2 mmHg - Mitral Valve Name Value Normal Range MV Vmax 1.44 m/sec - MV VTI 35.9 cm - MV peak gradient 8 mmHg - MV mean gradient 5 mmHg - MR Vmax 5.52 m/sec - Tricuspid Valve Name Value Normal Range TR Vmax 3.52 m/sec - TR peak gradient 50 mmHg - RVSP 62 mmHg - [place]/IV: Voiding Method Indwelling Catheter IV Catheter Type [Left Upper PICC Line arm] IV Catheter Type [Right INT / Saline Lock Forearm] IV Catheter Type [Left INT / Saline Lock Antecubital] IV Catheter Type [Right Hand] INT / Saline Lock IV Catheter Type [Right Upper Mid-line arm] IV Catheter Type [Right INT / Saline Lock External Jugular] Active Medications - Current Medications Current Medications: Generic Name Dose Route Start Last Admin Trade Name Freq PRN Reason Stop Dose Admin Acetaminophen 650 mg 09/02/20 00:30 09/05/20 22:50 Tylenol PO 650 mg Q6H PRN Administration Pain, Mild (1-3) Amlodipine Besylate 10 mg 09/21/20 12:00 09/24/20 09:39 Amlodipine PO Not Given DAILY [facility] Calcitriol 0.5 mcg 09/05/20 13:00 09/24/20 09:39 Rocaltrol PO Not Given QDAY JAE Dextrose 50 ml 09/11/20 19:09 D50w (25gm) Syringe IV Q30MIN PRN Hypoglycemia Protocol Ferrous Sulfate 308 mg 09/21/20 10:00 09/24/20 09:39 Ferrous Sulfate FEEDTUBE Not Given DAILY [facility] Haloperidol Lactate 5 mg 09/11/20 19:10 Haldol IM Q6H PRN Agitation Hydralazine HCl 10 mg 09/10/20 22:23 09/14/20 05:46 Apresoline IV 10 mg Q6H PRN Administration Blood Pressure Sodium Bicarbonate 50 meq/ 1,050 mls @ 75 mls/hr 09/24/20 15:00 09/25/20 06:01 Dextrose IV 75 mls/hr DIRECT JAE Administration Insulin Human Lispro 0 unit 09/19/20 12:00 09/25/20 06:28 Humalog SUB-Q 2 unit Q6HR JAE Administration Protocol Multivitamins 5 ml 09/18/20 10:00 09/24/20 09:39 Centrum Liq PO Not Given QDAY JAE Oxymetazoline HCl 2 spray 09/24/20 08:00 09/24/20 22:39 Vicks Sinex NS 09/27/20 07:59 Not Given Q12H JAE Pantoprazole Sodium 40 mg 09/22/20 10:00 09/24/20 22:38 Protonix IV 40 mg BID JAE Administration Potassium Bicarbonate 50 meq 09/10/20 22:00 09/24/20 22:39 Klor-Con PO Not Given BID JAE Sertraline HCl 50 mg 09/02/20 10:00 09/24/20 09:52 Zoloft PO Not Given DAILY JAE Sodium Chloride 10 ml 09/02/20 10:00 09/24/20 22:38 Sodium Chloride Flush Syringe 10 Ml IV 10 ml BID JAE Administration Sodium Chloride 10 ml 09/02/20 00:30 Sodium Chloride Flush Syringe 10 Ml IV PRN PRN LINE FLUSH Nutrition/Malnutrition Assess - Dietary Evaluation Nutrition/Malnutrition Findings: Nutrition Notes Start: 09/03/20 13:19 Freq: Status: Active Protocol: Document 09/23/20 14:11 LM (Rec: 09/23/20 14:15 LM [id number]) Nutrition Notes Initial or Follow up Reassessment Current Diagnosis Acute Kidney Injury,Diabetes Other Pertinent Diagnosis COVID-19 (+), pneu, anemia, bilat BKA, erosive esophagitis Current Diet No diet Labs/Tests BUN 52 Cr 2.1 Pertinent Medications Reviewed Height 5 ft 6 in Weight 103 kg [place] Body Weight (kg) 59.09 BMI 36.6 Weight Status Obese Subjective/Other Information Pt extbated and [employer] consulted. Percent of energy/protein needs met: 0%/0% Burn Absent Trauma Absent GI Symptoms Diarrhea Difficulty In Swallowing Current % PO Negligible Minimum of two criteria No physical signs of malnutrition #1 Nutrition Diagnosis Inadequate oral intake Diagnosis Progress(for reassessment Continues documentation) Is patient on ventilator? No Is Patient Ambulatory and/or Out of Bed No REE-([facility]-confined to bed) 1926.912 Kcal/Kg value to use for calculation 16 Approximate Energy Requirements Using 1648 kcal/Kg Calculation Used for Recommendations Kcal/kg Additional Notes Protein: 65-81g (0.8-1.2g/kg using AdjBW 81kg) Fluid: 1ml/kcal Nutrition Intervention Change Diet Order: Per [employer] Nutrition Support: D/C Goal #1 Diet advancement Anticipated Discharge Needs: Unable to determine at this time Follow-Up By: 09/25/20 Additional Comments F/U for diet advancement
--- NOTE | 2020-09-25 11:21 | Progress Note ---
Subjective Date of service: 09/25/20 Principal diagnosis: Iron Def Anemia Interval history: Subjective Date of service: 09/25/20 Principal diagnosis: Post cardiopulmonary arrest, functionally debilitated. Interval history: Assessment and Plan Overall, no CV change, no new recommendations (1) Cardiopulmonary arrest with successful resuscitation Current Visit: Yes Status: Acute Plan to address problem: Patient is event with acute pulmonary arrest manifested by pulseless electrical activity likely suggestive of a primary pulmonary arrest. No urgency for stress imaging at this time, the pt should receive medical threapy, she is functionally debilitated. PEA likely due to PE, not ischemic CMP. PMH: Date of service: 09/25/20 Principal diagnosis: Post acute pulmonary arrest, PEA Interval history: Patient is comfortably no acute distress, currently on the medical floor. She was admitted with Covid 19 pneumonia, and after 2 weeks of supportive care, dev eloped transient respiratory arrest characterized by pulseless electrical activity. Otherwise, no evidence for primary cardiac event. Echocardiogram shows very mild decrease in left ventricular systolic function, but more significantly dilated right heart chambers consistent with cor pulmonale or acute pulmonary embolism. Patient was reported with a lower extremity DVT at the time of her hospitalization, but oral anticoagulation was contraindicated by a suspected GI bleed. Objective Vital Signs Temp Pulse Resp Resp BP Pulse Ox 09/25/20 04:48 97.3 F L 62 22 133/75 97 09/25/20 02:30 51 L 09/24/20 22:38 91 09/24/20 22:01 97.8 F 57 L 20 162/71 95 09/24/20 22:00 17 09/24/20 21:48 98.1 F 58 L 20 160/75 93 09/24/20 15:54 97.9 F 74 19 145/72 90 - Physical Examination General: No Apparent Distress, Cachectic HEENT: Positive: PERRL Neck: Positive: neck supple Cardiac: Positive: Reg Rate and Rhythm, S1/S2 Lungs: Positive: clear to auscultation Neuro: Positive: Weakness Abdomen: Positive: Soft Skin: Positive: Clear Extremities: Absent: edema
[2020-09-25 16:38] LABS: Calcium 7.9 mg/dL (8.4-10.2)
[2020-09-25 16:59] LABS: Hematocrit 25.7 % (30.3-42.9); Hemoglobin 8.4 gm/dl (10.1-14.3); Mean Corpuscular HGB Conc 33 % (30-34); Mean Corpuscular Volume 86 fl (79-97); Red Blood Count 2.98 M/mm3 (3.65-5.03); Red Cell Distribution Width 17.8 % (13.2-15.2)
[2020-09-25 17:01] LABS: Platelet Count 73 K/mm3 (140-440)
[2020-09-26] MEDS: INSULIN LISPRO 100 UNIT/ML VIAL 3 mL SUB-Q SCH ×4 (00:23→17:02)
--- NOTE | 2020-09-26 06:47 | Progress Note ---
Assessment and Plan Assessment and plan: --S/P Cardiorespiratory arrest on 09/17/20 Intubated on vent, pulmonary critical, cardiology following Patient was weaned and extubated yesterday Today patient is alert and awake on nasal cannula oxygen -- Acute delirium/acute metabolic encephalopathy Etiology unknown, likely initially was metabolic Significantly improved, neuro, psych consult as needed --Sepsis ;Due to COVID-19 pneumonia Received complete treatment,Blood culture NTD --Septic shock, status post pressor following cardiac arrest BP now stable, continue to monitor --COVID-19 pneumonia, POA Coronavirus protocol: Coronavirus PCR is positive, contact precaution, isolation precautions, prone positioning while in bed, Not a candidate for remdesivir due to renal failure Continue dexamethasone, s/p convalescent plasma --Acute on chronic anemia Due to chronic GI bleed and iron deficiency Status post transfusion of 3 units PRBC, PPI. Continue to monitor for GI bleed As per GI, does not look like patient is having GI bleed at this time Advance diet as tolerated --Possible GI bleed, chronic Advance diet, GI on board Recommended to manage medically --Acute kidney injury (DIRK) with acute tubular necrosis (ATN) Continue to monitor renal function Nephrology following closely --Hypernatremia Continue isotonic solution Nephrology on board --Bilateral lower extremity DVT, chronic Consulted vascular surgeon for consideration of IVC filter placement. As per vascular surgery, patient is not a good candidate for IVC filter pl acement INR 2.74. GI recommended to treat with aspirin only --Diabetes type II Accu-Chek sliding scale coverage ADA diet Insulin as needed --Ongoing tobacco use; Smoking cessation counseling Nicotine patch as needed --EPIXTASIS --DVT prophylaxis, Anticoagulation --full code status Bedside swallow eval versus speech therapy swallow eval Patient is stable to be transferred out of ICU to medical floor. 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 The aggregate critical care time was [35] minutes. This time is in addition to time spent performing reported procedures but includes the following: [x] Data Review and interpretation [x] Patient assessment and monitoring of vital signs [x] Documentation [x] Medication orders and management Plan of care reviewed with the patient and her nurse Brief History; 64 YO Female with HTN, DM, Anemia, PVD, Nicotine Dependence, positive coronavirus test recently at [place] presented to the emergency room for further evaluation. Patient states that she has experienced subjective fever, generalized weakness, body aches, shortness of breath, nausea, multiple loose stools, lower extremity edema over the past 1 week with progressively worsening symptoms over the past 3 to 4 days prior to presentation. Here, patient found to be hypotensive with a systolic blood pressure ranging from 53-94. Patient was also hypothermic with a body temperature of 93.3 F. Patient met criteria for sepsis protocol and found to have bilateral pneumonia, metabolic acidosis, acute kidney injury. Patient admitted to telemetry due to increased risk of multisystem decompensation. Patient initiated on coronavirus protocol. Coronavirus PCR has been ordered, Patient remained hypotensive in spite of IV fluid resuscitation therapy. Patient subsequently upgraded to IMCU. Her repeat COVID-19 test was positive. She was treated with dexamethasone daily for 10 days. Remdesivir could not be given because of worsening renal function. Did receive convalescent plasma. Patient was downgraded to MedSurg. Patient did have on and off delirium recovering restrain. But she was clinically improving and was planning for discharge. On 09/17 morning she developed cardiorespiratory arrest following a coffee-ground emesis. Patient was intubated and transferred to ICU, critical care was consulted, placed on pressor support for hypotension. Family updated and wanted to continue aggressive care. s/p extubation today. daily course: 09/03. While in the ER, patient had an ultrasound Doppler performed that showed bilateral DVT involving the iliac veins. Patient was started on heparin drip. ID consulted for COVID-19 and nephrology consulted for DIRK. Patient seen and examined at bedside this morning. She has no complaints this morning. Her hemoglobin dropped to 6.4 this morning. Patient will get transfused 1 unit of PRBCs. Later this p.m., was notified by nurse that patient is having tarry dark stool and hematemesis. Heparin drip discontinued. Patient started on PPI drip and made n.p.o. GI is has been consulted. Patient will need to have an upper endoscopy. She has bilateral lower extremity DVT and will need vascular surgery evaluation to determine if she is a candidate for IVC filter placement. 09/04. Patient seen and examined at bedside this morning. Labs reviewed showed hemoglobin 5.3. Patient will receive 2 units PRBCs. FFP also ordered. GI evaluation pending. Continue PPIs. Vascular surgeon to see to determine if patient is a candidate for IVC filter placement for DVT. 09/05. Hb stable this morning. GI on board. On PPI drip. 09/06. Gastroenterology and vascular surgery recommendations reviewed. Patient not a good candidate for IVC filter placement due to location of the clot/thrombosis. Plan is for patient to have anticoagulation on while monitoring hemoglobin. Patient's INR is more than 2 at this time so we will hold anticoagulation for now and monitor hemoglobin. Plan to initiate anticoagulation when INR is less than 2. We will preferably use heparin products as she has a high chance of bleeding. Continue to monitor hemoglobin. Hb 7.3 this a.m. 09/07. Hemoglobin 8.2 this AM. No clear signs of GI bleed. Her INR is 2.74. No need for initiation of AC for now as she INR is already therapeutic. Plan is to monitor for bleeding and if she remains stable, she will be started on anticoagulation for her bilateral DVT. Vascular surgery following-patient not a candidate for IVC catheter placement. GI recommendations appreciated 09/08: Patient is nonreactive to COVID-19 antibody, per ID order for convalescent plasma. Continue supportive care, follow clinically 09/09: Pending convalescent plasma transfusion, continue to follow inflammatory markers. Monitor H&H. Plan to start on aspirin tomorrow if INR and H&H stable 09/10: hb dropped to 6.8, transfuse one unit, discussed with GI - no plan for endoscopy now, cont to follow clinically 09/11: patient didn't get transfusion yesterday. became very agitated today, ord ered as needed haldol, cont iv fluid. monitor clinically 09/12: placed on restrain o/n. cont supportive care, lost IV line - ordered for midline. pending PRBC transfusion 09/13: monitor h/h, patient more clam today, continue supportive care, follow BMP - Na and Cr has been improving 09/14: cont to monitor, follow BMP, follow h/h. oral intake improved per RN 09/15: If h/h stable and Cr cont to improves will d/c in a day or two 09/16; spoke with daughter and updated her with patient's clinical condition. family willing to accept the patient tomorrow. RN reported some Nose bleeding earlier today, but now resolved. repeat h/h stable 09/17: had respiratory/cardiac arrest this am. patient transferred to ICU. updated family. will get CT head, patient now intubated, start on bicarbonate drip 09/18; remains unresponsive, NG tube placed and noted bolld from the NG tube, discussed with GI - recommended PRBC/FFP transfusion. patient remains unresponsive w/o sedation and intubated. Called daughter and updated. 09/19: - Patient had OG tube with initial bloody secretions on insertion but currently with dark greenish output. No active bloody output from the OG tube. Rectal tube with dark greenish bilious output. No clear signs of active on-going GI bleeding. Off levophed. Continue to monitor H&H, transfuse as needed. Patient remains unresponsive without any sedation. Poor prognosis which I discussed with the family 09/20: cont supportive care, wean off vent as tolerated. Updated family by phone 09/21: s/p extubation today. Continue to assess mental status. Continue s upportive care. We will stop the bicarbonate drip and start sodium bicarbonate with feeding tube. We will continue half-normal saline for now and monitor BMP daily, ordered speech eval. 09/22; patient was extubated yesterday, today doing well on nasal cannula oxygen, will request for swallow eval, and ordered diet as tolerated Will downgrade her to medical floor, she is still agitated will renew her restraints. Closely monitor DC planning per case management 09/23: Recurrent nosebleed. Rhino Rocket placed in the left nare. Afrin ordered twice daily. Aspiration precautions at this time. No worsening oxygen demand. Will monitor for additional 24 hours. Discharge planning from them. Discussed with nurses at bedside and also with patient. SCDs for DVT prophylaxis discontinue chemical chemoprophylaxis. 09/24: No further bleeding, possible Rhino rocket was replaced as it looks d ifferent, continue Afrin, MONITOR H/H and PLT. 09/25: Clinically stable continue Afrin nose packing is out. Will reevaluate swallowing. Awaiting for cardiology clearance for possible PEG if continues to fail swallowing evaluation. Encourage movement as much as possible due to risk of dvt development. discussed with family 09/26; Continue supportive care, no further bleeding reported. will keep NPO midnight monday to monday for possible PEG placement patient still failed swallo w evaluation per speech re-evaluation 'Received a repeat order for an evaluation. Patient was assessed on 09/23/20. NPO was recommended at the time due to her inability to participate and poor swallowing ability. Patient is unchanged from two days prior and is not appropriate for po consumption. She holds the bolus in the oral cavity and fails to initiate a swallow which places her at risk for aspiration. PEG placement is recommended for this patient. No further recommendations.' Due to labile BP will add patch of clonidine. History Interval history: Patient seen and examined this morning, no worsening shortness of breath. No further nose bleed Hospitalist Physical - Physical exam Narrative exam: General appearance: Present: no acute distress, well-nourished, chronically ill- appearing - EENT Eyes: Present: PERRL, EOM intact, rhino rocket inplace. - Neck Neck: Present: supple, normal ROM - Respiratory Respiratory effort: normal Respiratory: bilateral: diminished, rhonchi, negative: rales, wheezing - Cardiovascular Rhythm: regular Heart Sounds: Present: S1 & S2 - Extremities Extremities: no ischemia, No edema - Abdominal General gastrointestinal: soft, non-tender, non-distended, normal bowel sounds - Integumentary Integumentary: Present: clear, warm - Psychiatric Psychiatric: appropriate mood/affect, cooperative - Neurologic Neurologic: moves all extremities - Patient Problems - Constitutional Vitals: Temp Pulse Resp BP Pulse Ox 98.2 F 62 20 175/93 99 09/26/20 04:23 09/26/20 04:23 09/26/20 04:23 09/26/20 04:23 09/26/20 04:23 General appearance: Present: no acute distress, well-nourished Results - Labs CBC & Chem 7: 09/26/20 08:29 09/26/20 08:29 Labs: Laboratory Last Values WBC 13.2 K/mm3 (4.5-11.0) H 09/25/20 15:25 RBC 2.98 M/mm3 (3.65-5.03) L 09/25/20 15:25 Hgb 8.4 gm/dl (10.1-14.3) L 09/25/20 15:25 Hct 25.7 % (30.3-42.9) L 09/25/20 15:25 MCV 86 fl (79-97) 09/25/20 15:25 MCH 28 pg (28-32) 09/25/20 15:25 MCHC 33 % (30-34) 09/25/20 15:25 RDW 17.8 % (13.2-15.2) H 09/25/20 15:25 Plt Count 73 K/mm3 (140-440) L 09/25/20 15:25 Lymph % (Auto) Rehabilitation Attendant 09/22/20 08:00 [place] % (Auto) Rehabilitation Attendant 09/22/20 08:00 Eos % (Auto) Rehabilitation Attendant 09/22/20 08:00 Baso % (Auto) Rehabilitation Attendant 09/22/20 08:00 Lymph # (Auto) Rehabilitation Attendant 09/22/20 08:00 [place] # (Auto) Rehabilitation Attendant 09/22/20 08:00 Eos # (Auto) 0.0 K/mm3 (0.0-0.4) 09/08/20 05:18 Baso # (Auto) 0.0 K/mm3 (0.0-0.1) 09/08/20 05:18 Add Manual Diff Complete 09/22/20 08:00 Total Counted 100 09/22/20 08:00 Seg Neutrophils % Rehabilitation Attendant 09/22/20 08:00 Seg Neuts % (Manual) 99.0 % (40.0-70.0) H 09/22/20 08:00 Band Neutrophils % 0 % 09/22/20 08:00 Lymphocytes % (Manual) 0 % (13.4-35.0) L 09/22/20 08:00 Reactive Lymphs % (Man) 0 % 09/22/20 08:00 Monocytes % (Manual) 1.0 % (0.0-7.3) 09/22/20 08:00 Eosinophils % (Manual) 0 % (0.0-4.3) 09/22/20 08:00 Basophils % (Manual) 0 % (0.0-1.8) 09/22/20 08:00 Metamyelocytes % 0 % 09/22/20 08:00 Myelocytes % 0 % 09/22/20 08:00 Promyelocytes % 0 % 09/22/20 08:00 Blast Cells % 0 % 09/22/20 08:00 Nucleated RBC % 1.0 % (0.0-0.9) H 09/22/20 08:00 Seg Neutrophils # 9.5 K/mm3 (1.8-7.7) H 09/08/20 05:18 Seg Neutrophils # Man 11.3 K/mm3 (1.8-7.7) H 09/22/20 08:00 Band Neutrophils # 0.0 K/mm3 09/22/20 08:00 Lymphocytes # (Manual) 0.0 K/mm3 (1.2-5.4) L 09/22/20 08:00 Abs React Lymphs (Man) 0.0 K/mm3 09/22/20 08:00 Monocytes # (Manual) 0.1 K/mm3 (0.0-0.8) 09/22/20 08:00 Eosinophils # (Manual) 0.0 K/mm3 (0.0-0.4) 09/22/20 08:00 Basophils # (Manual) 0.0 K/mm3 (0.0-0.1) 09/22/20 08:00 Metamyelocytes # 0.0 K/mm3 09/22/20 08:00 Myelocytes # 0.0 K/mm3 09/22/20 08:00 Promyelocytes # 0.0 K/mm3 09/22/20 08:00 Blast Cells # 0.0 K/mm3 09/22/20 08:00 WBC Morphology Not Reportable 09/22/20 08:00 Hypersegmented Neuts Not Reportable 09/22/20 08:00 Hyposegmented Neuts Not Reportable 09/22/20 08:00 Hypogranular Neuts Not Reportable 09/22/20 08:00 Smudge Cells Not Reportable 09/22/20 08:00 Toxic Granulation Not Reportable 09/22/20 08:00 Toxic Vacuolation Not Reportable 09/22/20 08:00 Dohle Bodies Not Reportable 09/22/20 08:00 Pelger-Huet Anomaly Not Reportable 09/22/20 08:00 Ignacia Rods Not Reportable 09/22/20 08:00 Platelet Estimate Consistent w auto 09/22/20 08:00 Clumped Platelets Not Reportable 09/22/20 08:00 Plt Clumps, EDTA Not Reportable 09/22/20 08:00 Large Platelets Not Reportable 09/22/20 08:00 Giant Platelets Not Reportable 09/22/20 08:00 Platelet Satelliting Not Reportable 09/22/20 08:00 Plt Morphology Comment Not Reportable 09/22/20 08:00 RBC Morphology Not Reportable 09/22/20 08:00 Dimorphic RBCs Not Reportable 09/22/20 08:00 Polychromasia Not Reportable 09/22/20 08:00 Hypochromasia 1+ 09/22/20 08:00 Poikilocytosis 1+ 09/22/20 08:00 Anisocytosis Not Reportable 09/22/20 08:00 Microcytosis Not Reportable 09/22/20 08:00 Macrocytosis Not Reportable 09/22/20 08:00 Spherocytes Not Reportable 09/22/20 08:00 Pappenheimer Bodies Not Reportable 09/22/20 08:00 Sickle Cells Not Reportable 09/22/20 08:00 Target Cells Not Reportable 09/22/20 08:00 Tear Drop Cells Not Reportable 09/22/20 08:00 Ovalocytes Not Reportable 09/22/20 08:00 Helmet Cells Not Reportable 09/22/20 08:00 [place] Bodies Not Reportable 09/22/20 08:00 [place] Rings Not Reportable 09/22/20 08:00 [place] Cells 1+ 09/22/20 08:00 Bite Cells Not Reportable 09/22/20 08:00 Crenated Cell Not Reportable 09/22/20 08:00 Elliptocytes Not Reportable 09/22/20 08:00 Acanthocytes (Spur) Not Reportable 09/22/20 08:00 Rouleaux Not Reportable 09/22/20 08:00 Hemoglobin C Crystals Not Reportable 09/22/20 08:00 Schistocytes 1+ 09/22/20 08:00 Malaria parasites Not Reportable 09/22/20 08:00 [place] Bodies Not Reportable 09/22/20 08:00 Hem Pathologist Commnt No 09/22/20 08:00 PT 22.5 Sec. (12.2-14.9) H 09/19/20 08:50 INR 1.97 (0.87-1.13) H 09/19/20 08:50 APTT 29.2 Sec. (24.2-36.6) 09/02/20 13:52 D-Dimer 1076.18 ng/mlDDU (0-234) H 09/01/20 21:55 Heparin Anti-Xa Level 0.94 U.I./ml (0.3-0.7) H 09/03/20 05:17 ABG pH 7.441 (7.320-7.450) 09/21/20 03:25 POC ABG pCO2 28.2 mmHg (32.0-48.0) L 09/21/20 03:25 POC ABG pO2 112.5 mmHg (83-108) H 09/21/20 03:25 POC ABG HCO3 18.8 09/21/20 03:25 POC ABG Base Excess -4.5 09/21/20 03:25 ABG Hemoglobin 9.4 (12.0-17.5) L 09/21/20 03:25 ABG Sodium 136.3 mmol/L (136.0-145.0) 09/21/20 03:25 ABG Potassium 4.4 mmol/L (3.40-4.50) 09/21/20 03:25 ABG Chloride 110.0 mmol/L (98-107) H 09/21/20 03:25 ABG Glucose 163 mg/dL (65-95) H 09/21/20 03:25 FiO2 40.0 09/21/20 03:25 Sodium 141 mmol/L (137-145) 09/25/20 15:25 Potassium 4.7 mmol/L (3.6-5.0) 09/25/20 15:25 Chloride 109.5 mmol/L (98-107) H 09/25/20 15:25 Carbon Dioxide 23 mmol/L (22-30) 09/25/20 15:25 Anion Gap 13 mmol/L 09/25/20 15:25 BUN 48 mg/dL (7-17) H 09/25/20 15:25 Creatinine 1.9 mg/dL (0.6-1.2) H 09/25/20 15:25 Estimated GFR 32 ml/min 09/25/20 15:25 BUN/Creatinine Ratio 25 % 09/25/20 15:25 Glucose 187 mg/dL (65-100) H 09/25/20 15:25 POC Glucose 142 mg/dL (70-105) H 09/26/20 05:27 Lactic Acid 0.60 mmol/L (0.7-2.0) L 09/02/20 08:10 Calcium 7.9 mg/dL (8.4-10.2) L 09/25/20 15:25 Phosphorus 3.60 mg/dL (2.5-4.5) 09/25/20 15:25 Magnesium 2.20 mg/dL (1.7-2.3) 09/14/20 19:57 Iron 28 ug/dL (37-170) L 09/07/20 09:13 TIBC 188 mcg/dL (250-450) L 09/07/20 09:13 Ferritin 313.5 ng/mL (10.0-200.0) H 09/01/20 21:55 Total Bilirubin 0.70 mg/dL (0.1-1.2) 09/19/20 04:29 AST 29 units/L (5-40) 09/19/20 04:29 ALT 43 units/L (7-56) 09/19/20 04:29 Alkaline Phosphatase 185 units/L (35-129) H 09/19/20 04:29 Lactate Dehydrogenase 435 units/L (91-180) H 09/01/20 21:55 C-Reactive Protein 2.30 mg/dL (0.00-1.30) H 09/01/20 21:55 NT-Pro-B Natriuret Pep 82289 pg/mL (0-900) H 09/01/20 21:55 Serum Total Protein 4.3 g/dL (6.1-8.1) L 09/16/20 13:44 Total Protein 4.3 g/dL (6.3-8.2) L 09/19/20 04:29 Albumin 2.1 g/dL (3.9-5) L 09/19/20 04:29 Albumin/Globulin Ratio 1.0 % 09/19/20 04:29 Ixpvp-7-Zmvuprute 0.5 g/dL (0.2-0.3) H 09/16/20 13:44 Eqlrf-0-Tcwwcqyov 0.6 g/dL (0.5-0.9) 09/16/20 13:44 Beta Globulins 0.3 g/dL (0.2-0.5) 09/16/20 13:44 Gamma Globulins 0.8 g/dL (0.8-1.7) 09/16/20 13:44 Abnorm Protein Band 1 see below 09/16/20 13:44 PEP Interpretation see below H 09/16/20 13:44 Vitamin B12 843.2 pg/mL (211-911) 09/07/20 09:13 Procalcitonin 0.10 ng/mL (<0.15) 09/01/20 21:55 TSH 0.735 mlU/mL (0.270-4.200) 09/02/20 00:45 Free T4 0.92 ng/dL (0.76-1.46) 09/02/20 00:45 Free T4 0.94 ng/dL (0.76-1.46) 09/02/20 00:45 PTH Intact 820.4 pg/mL (15-65) H 09/04/20 05:18 Arterial Blood Glucose 163 mg/dL (65-95) H 09/21/20 03:25 Arterial Blood Ionized Calcium 4.7 mg/dL (4.6-5.3) 09/21/20 03:25 Urine Color Elena (Yellow) 09/02/20 03:44 Urine Turbidity Cloudy (Clear) 09/02/20 03:44 Urine pH 7.0 (5.0-7.0) 09/02/20 03:44 Ur Specific [place] 1.015 (1.003-1.030) 09/02/20 03:44 Urine Protein >500 mg/dL (Negative) 09/02/20 03:44 Urine Glucose (UA) Neg mg/dL (Negative) 09/02/20 03:44 Urine Ketones Neg mg/dL (Negative) 09/02/20 03:44 Urine Blood Neg (Negative) 09/02/20 03:44 Urine Nitrite Neg (Negative) 09/02/20 03:44 Urine Bilirubin Neg (Negative) 09/02/20 03:44 Urine Urobilinogen < 2.0 mg/dL (<2.0) 09/02/20 03:44 Ur Leukocyte Esterase Neg (Negative) 09/02/20 03:44 Urine WBC (Auto) < 1.0 /HPF (0.0-6.0) 09/02/20 03:44 Urine RBC (Auto) < 1.0 /HPF (0.0-6.0) 09/02/20 03:44 U Epithel Cells (Auto) < 1.0 /HPF (0-13.0) 09/02/20 03:44 Urine Bacteria (Auto) 2+ /HPF (Negative) 09/02/20 03:44 Urine Mucus Few /HPF 09/02/20 03:44 Urine Creatinine 43.2 mg/dL (0.1-20.0) H 09/06/20 06:52 Protein/Creatinin Ratio 6.90 09/06/20 06:52 Urine Sodium 84 mmol/L 09/06/20 06:52 Urine Total Protein 298 mg/dL (5-11.8) H 09/06/20 06:52 DEMARCUS Screen Negative (Negative) 09/17/20 00:10 Proteinase 3 (PR3) Ab <1.0 AI (<1.0) 09/17/20 00:10 Myeloperoxidase Ab <1.0 AI (<1.0) 09/17/20 00:10 Glomerular Base Mem IgG See scanned result 09/16/20 13:44 Complement C3 82 mg/dL (83-193) L 09/17/20 00:10 Complement C4 26 mg/dL (15-57) 09/17/20 00:10 C. difficile Tox (PCR) Negative (Negative) 09/02/20 13:05 Coronavirus (PCR) Positive (Negative) A 09/17/20 Unknown SARS-CoV-2 IgG Ab Nonreactive (NonReactive) 09/02/20 08:10 Blood Type O POSITIVE 09/17/20 13:49 Antibody Screen Negative 09/17/20 13:49 Crossmatch See Detail 09/17/20 13:49 - Diagnostic Impressions Diagnostic Impressions: Echocardiogram 09/22/20 13:29 Transthoracic Echocardiogram Indication: Cardiopulmonary arrest BP: 175/66 HR: 71 Conclusions *4-chamber dilated cardiomyopathy. *Global left ventricular systolic function is mildly decreased. *The estimated ejection fraction is 40-45%. *Mild concentric left ventricular hypertrophy is observed. *There is mild to moderate mitral regurgitation. *There is mild to moderate tricuspid regurgitation. *There is moderately-severe pulmonary hypertension. *The right ventricular systolic pressure is calculated at 62 mmHg. *There is a minimial pericardial effusion. Findings Left Ventricle: The left ventricular chamber size is mildly dilated. Mild concentric left ventricular hypertrophy is observed. Global left ventricular systolic function is mildly decreased. The estimated ejection fraction is 40-45%. Left Atrium: The left atrium is moderately dilated. Right Ventricle: The right ventricle is mildly dilated. The right ventricular global systolic function is mildly reduced. Right Atrium: The right atrium is moderately dilated. Aortic Valve: The aortic valve is trileaflet. The aortic valve leaflets are moderately thickened. There is no evidence of aortic regurgitation. There is no evidence of aortic stenosis. Mitral Valve: The mitral valve leaflets are mildly thickened. There is mild to moderate mitral regurgitation. There is no evidence of mitral stenosis. Tricuspid Valve: The tricuspid valve leaflets are normal. There is mild to moderate tricuspid regurgitation. The right ventricular systolic pressure is calculated at 62 mmHg. There is evidence of severe pulmonary hypertension. Pulmonic Valve: There is mild pulmonic regurgitation. Pericardium: There is a minimial pericardial effusion. Aorta: There is no dilatation of the ascending aorta. There is no dilatation of the aortic root. Venous: The inferior vena cava is dilated. Measurements Chambers 2D Name Value Normal Range IVSd (2D) 1.17 cm (0.6 - 1.1) LVPWd (2D) 1.15 cm (0.6 - 1.1) IVS:LVPW ratio (2D) 1.02 ratio - LVIDd (2D) 5 cm (3.7 - 5.6) LVIDs (2D) 3.71 cm (2 - 3.8) LV FS (Teichholz) (2D) 25.8 % - LV FS (cube) (2D) 25.8 % - EF Teichholz (2D) 50.4 % - Ao root diameter (2D) 2.6 cm (2 - 3.7) LA dimension (AP) 2D 5.1 cm (1.9 - 4) LA:Ao ratio (2D) 1.96 ratio - Volumes/Mass Name Value Normal Range LA ESV SP 4CH (MOD) 49 ml - LA ESV SP 2CH (MOD) 96 ml - LA ESV BP (MOD) 69 ml - LA ESV BP (MOD) index 33.2 ml/m2 - Diastolic/Systolic Function Name Value Normal Range MV E-wave Vmax 1.21 m/sec - MV deceleration time 254 msec - MV A-wave Vmax 1.12 m/sec - MV E:A ratio 1.1 ratio - Aortic Valve Name Value Normal Range AV VTI 31.1 cm - AV mean gradient 4 mmHg - LVOT diameter 2 cm - LVOT VTI 19.4 cm - LVOT mean gradient 2 mmHg - Mitral Valve Name Value Normal Range MV Vmax 1.44 m/sec - MV VTI 35.9 cm - MV peak gradient 8 mmHg - MV mean gradient 5 mmHg - MR Vmax 5.52 m/sec - Tricuspid Valve Name Value Normal Range TR Vmax 3.52 m/sec - TR peak gradient 50 mmHg - RVSP 62 mmHg - [place]/IV: Voiding Method Indwelling Catheter IV Catheter Type [Left Upper PICC Line arm] IV Catheter Type [Right INT / Saline Lock Forearm] IV Catheter Type [Left INT / Saline Lock Antecubital] IV Catheter Type [Right Hand] INT / Saline Lock IV Catheter Type [Right Upper Mid-line arm] IV Catheter Type [Right INT / Saline Lock External Jugular] Active Medications - Current Medications Current Medications: Generic Name Dose Route Start Last Admin Trade Name Freq PRN Reason Stop Dose Admin Acetaminophen 650 mg 09/02/20 00:30 09/05/20 22:50 Tylenol PO 650 mg Q6H PRN Administration Pain, Mild (1-3) Amlodipine Besylate 10 mg 09/21/20 12:00 09/25/20 10:14 Amlodipine PO Not Given DAILY [facility] Calcitriol 0.5 mcg 09/05/20 13:00 09/25/20 10:14 Rocaltrol PO Not Given QDAY [facility] Dextrose 50 ml 09/11/20 19:09 D50w (25gm) Syringe IV Q30MIN PRN Hypoglycemia Protocol Ferrous Sulfate 308 mg 09/21/20 10:00 09/25/20 10:14 Ferrous Sulfate FEEDTUBE Not Given DAILY [facility] Haloperidol Lactate 5 mg 09/11/20 19:10 Haldol IM Q6H PRN Agitation Hydralazine HCl 10 mg 09/10/20 22:23 09/14/20 05:46 Apresoline IV 10 mg Q6H PRN Administration Blood Pressure Sodium Bicarbonate 50 meq/ 1,050 mls @ 75 mls/hr 09/24/20 15:00 09/25/20 22:07 Dextrose IV 75 mls/hr DIRECT JAE Administration Insulin Human Lispro 0 unit 09/19/20 12:00 09/26/20 06:44 Humalog SUB-Q Not Given Q6HR [facility] Protocol Multivitamins 5 ml 09/18/20 10:00 09/25/20 10:15 Centrum Liq PO Not Given QDAY JAE Oxymetazoline HCl 2 spray 09/24/20 08:00 09/25/20 22:10 Vicks Sinex NS 09/27/20 07:59 2 spray Q12H JAE Administration Pantoprazole Sodium 40 mg 09/22/20 10:00 09/25/20 22:08 Protonix IV 40 mg BID JAE Administration Potassium Bicarbonate 50 meq 09/10/20 22:00 09/25/20 22:07 Klor-Con PO Not Given BID JAE Sertraline HCl 50 mg 09/02/20 10:00 09/25/20 10:15 Zoloft PO Not Given DAILY JAE Sodium Chloride 10 ml 09/02/20 10:00 09/25/20 22:11 Sodium Chloride Flush Syringe 10 Ml IV 10 ml BID JAE Administration Sodium Chloride 10 ml 09/02/20 00:30 Sodium Chloride Flush Syringe 10 Ml IV PRN PRN LINE FLUSH Nutrition/Malnutrition Assess - Dietary Evaluation Nutrition/Malnutrition Findings: Nutrition Notes Start: 09/03/20 13:19 Freq: Status: Active Protocol: Document 09/25/20 12:00 (Rec: 09/25/20 12:04 [id number]) Nutrition Notes Initial or Follow up Reassessment Current Diagnosis Acute Kidney Injury,CKD(stage I-IV),Diabetes Other Pertinent Diagnosis COVID-19 (+), pneu, anemia, bilat BKA, erosive esophagitis Current Diet No diet Labs/Tests 09/24: BUN 51 Cr 2 Pertinent Medications Reviewed Height 5 ft 6 in Weight 103 kg [place] Body Weight (kg) 59.09 BMI 36.6 Weight Status Obese Subjective/Other Information FU for diet advancement. Previous [employer] eval recommended NPO. MD ordered new eval - will follow for plan of care. Pt with deep tissue injury on sacrum. Percent of energy/protein needs met: 0%/0% Burn Absent Trauma Absent Difficulty In Swallowing Current % PO Negligible Minimum of two criteria No physical signs of malnutrition #2 Nutrition Diagnosis Increased nutrient needs ( specify in comment below) Comments: protein Etiology wound healing As Evidenced by Signs and Symptoms deep tissue injury on sacrum #1 Nutrition Diagnosis Inadequate oral intake Diagnosis Progress(for reassessment Continues documentation) Is patient on ventilator? 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
[2020-09-26] MEDS: OXYMETAZOLINE 0.05% NASAL SPRAY NS SCH ×2 (08:51→21:52)
--- NOTE | 2020-09-26 08:58 | Progress Note ---
Assessment and Plan Coronaviral pneumonia Cardiopulmonary arrest on 09/17 Acute bilateral lower extremity DVT in a patient with bilateral below-knee amputation Severe Anemia/ GI bleed s/p transfusion of PRBCs PVD Thrombocytopenia Acute kidney injury EF 40-45% Recommendations: Conservative cardiac management No further cardiac work-up is needed We will sign off Please call back if needed Subjective Date of service: 09/26/20 Principal diagnosis: Iron Def Anemia Interval history: No recorded events overnight Tele is showing sinus rhythm and sinus bradycardia Objective Vital Signs Temp Pulse Resp BP BP Pulse Ox 09/26/20 04:23 98.2 F 62 20 175/93 99 09/26/20 00:56 100 09/25/20 21:10 97.5 F L 61 18 158/72 100 09/25/20 11:00 98.4 F 58 L 19 155/55 95 09/25/20 10:00 58 L 100 - Physical Examination Narrative exam: Patient was not examined due to Covid 19 restrictions - Labs and Meds CBC 09/25/20 Range/Units 15:25 WBC 13.2 H (4.5-11.0) K/mm3 RBC 2.98 L (3.65-5.03) M/mm3 Hgb 8.4 L (10.1-14.3) gm/dl Hct 25.7 L (30.3-42.9) % Plt Count 73 L (140-440) K/mm3 Comprehensive Metabolic Panel 09/25/20 Range/Units 15:25 Sodium 141 (137-145) mmol/L Potassium 4.7 (3.6-5.0) mmol/L Chloride 109.5 H (98-107) mmol/L Carbon Dioxide 23 (22-30) mmol/L BUN 48 H (7-17) mg/dL Creatinine 1.9 H (0.6-1.2) mg/dL Glucose 187 H (65-100) mg/dL Calcium 7.9 L (8.4-10.2) mg/dL
[2020-09-26 09:22] LABS: Hematocrit 26.4 % (30.3-42.9); Hemoglobin 8.7 gm/dl (10.1-14.3); Mean Corpuscular HGB Conc 33 % (30-34); Mean Corpuscular Volume 86 fl (79-97); Red Blood Count 3.07 M/mm3 (3.65-5.03); Red Cell Distribution Width 17.3 % (13.2-15.2)
[2020-09-26 11:16] LABS: Platelet Count 85 K/mm3 (140-440)
[2020-09-26] MEDS: SODIUM BICARBONATE 50 MEQ in DEXTROSE 5% IN WATER 1,000 ML IV SCH (11:17)
[2020-09-26] MEDS: FERROUS SULFATE 308 MG (62mg Elemental Iron) / 7 ML ELIXIR FEEDTUBE SCH (11:19)
[2020-09-26] MEDS: MULTIVITAMINS 5 ML ORAL LIQUID PO SCH (11:19)
[2020-09-26] MEDS: PANTOPRAZOLE 40 MG INJ IV SCH ×2 (11:19→21:51)
[2020-09-26] MEDS: amLODIPine 10 MG TAB PO SCH (11:20)
[2020-09-26] MEDS: K-LYTE 25 MEQ TABLET EFF PO SCH ×2 (11:20→21:52)
[2020-09-26 11:22] LABS: Calcium 8.3 mg/dL (8.4-10.2)
[2020-09-26] MEDS: cloNIDine TTS 0.1 MG/24 HR PATCH TD SCH (11:44)
--- NOTE | 2020-09-26 12:23 | Gastroenterology Progress Note ---
Assessment and Plan 1. Anemia - no overt gi bleeding. h/h stable. 2. Oropharyngeal dysphagia - pt more awake/alert (still disoriented) but worth trying another speech eval/swallow study before committing to peg tube in high risk patient. Subjective Date of service: 09/26/20 Principal diagnosis: Iron Def Anemia Interval history: pt more awake today, still confused but appears more alert. no signs of gi bleeding Objective - Exam Narrative Exam: Gen: awake, disoriented Abd: soft, nt, nd - Constitutional Vitals: Temp Pulse Resp BP Pulse Ox 94.7 F L 65 22 157/59 90 09/26/20 11:29 09/26/20 11:44 09/26/20 11:29 09/26/20 11:44 09/26/20 11:29 - Labs CBC & Chem 7: 09/26/20 08:29 09/26/20 08:29 Labs: Laboratory Results - last 24 hr 09/25/20 09/25/20 09/25/20 15:25 15:25 16:45 WBC 13.2 H RBC 2.98 L Hgb 8.4 L Hct 25.7 L MCV 86 MCH 28 MCHC 33 RDW 17.8 H Plt Count 73 L Sodium 141 Potassium 4.7 Chloride 109.5 H Carbon Dioxide 23 Anion Gap 13 BUN 48 H Creatinine 1.9 H Estimated GFR 32 BUN/Creatinine Ratio 25 Glucose 187 H POC Glucose 183 H Calcium 7.9 L Phosphorus 3.60 09/26/20 09/26/20 09/26/20 00:17 05:27 08:29 WBC RBC Hgb Hct MCV MCH MCHC RDW Plt Count Sodium 146 H Potassium Chloride 111.4 H Carbon Dioxide 24 Anion Gap 15 BUN 44 H Creatinine 1.8 H Estimated GFR 34 BUN/Creatinine Ratio 24 Glucose 160 H POC Glucose 177 H 142 H Calcium 8.3 L Phosphorus 09/26/20 09/26/20 08:29 11:18 WBC 10.4 RBC 3.07 L Hgb 8.7 L Hct 26.4 L MCV 86 MCH 28 MCHC 33 RDW 17.3 H Plt Count 85 L Sodium Potassium Chloride Carbon Dioxide Anion Gap BUN Creatinine Estimated GFR BUN/Creatinine Ratio Glucose POC Glucose 127 H Calcium Phosphorus
--- NOTE | 2020-09-26 12:37 | Progress Note ---
Assessment and Plan 1. Acute kidney injury: DIRK secondary to combination of Vasomotor nephropathy and severe sepsis. Renal US negative for hydro. Monitor renal function. Creatinine level improving. Prior Creatinine was 1.2 in 2014. Likely CKD stage 4. Renal prognosis is guarded. Avoid nephrotoxic agents. Meds dosage based on GFR. 2. FEN: Hyperchloremic Metabolic acidosis, on Potassium bicarbonate, monitor. Sod bicarb drip. Hypernatremia, improved, monitor. Monitor lytes. 3. Nephrotic syndrome: Likely diabetic nephropathy. DEMARCUS, ANCA and GBM Ab are negative. Complements appears normal. SPE; too small of M spike. 4. Severe sepsis, POA, now with shock: Off pressors. 5. S/p Cardiac arrest. 6. Severe COVID infection: Seen by ID. 7. Acute hypoxic resp failure: Intubated post-arrest. S/p extubated. 8. Bilateral LE DVT, POA. 9. Microcytic anemia, POA: S/p PRBC. Monitor. Seen by GI. 10. Thrombocytopenia, POA. 11. Acute diarrhea: Likely associated with COVID-19 infection. C. difficile test negative. Subjective: Patient was seen and examined at the bedside. Examination: General appearance: well-developed, appears stated age, no distress, mittens HEENT: JAYCE Neck: Trachea midline Respiratory: ctab Cardiology: regular, S1S2, no murmur Gastrointestinal: normoactive bowel sounds, no tenderness, not distended Integumentary: no obvious rash Neurologic: alert, oriented to self, moving extremities Ext: trace dependent edema, b/l BKA : [place] catheter Subjective Date of service: 09/26/20 Principal diagnosis: Iron Def Anemia Objective - Vital Signs Vital signs: Vital Signs - 12hr 09/26/20 09/26/20 09/26/20 00:56 04:23 09:18 Temperature 98.2 F Pulse Rate 62 Respiratory 20 Rate Blood Pressure 175/93 O2 Sat by Pulse 100 99 99 Oximetry 09/26/20 09/26/20 11:29 11:44 Temperature 94.7 F L Pulse Rate 65 65 Respiratory 22 Rate Blood Pressure 151/59 157/59 O2 Sat by Pulse 90 Oximetry - Lab 09/26/20 08:29 09/26/20 08:29 Most recent lab results ABG pH 7.441 (7.320-7.450) 09/21/20 03:25 Calcium 8.3 mg/dL (8.4-10.2) L 09/26/20 08:29 Phosphorus 3.60 mg/dL (2.5-4.5) 09/25/20 15:25 Magnesium 2.20 mg/dL (1.7-2.3) 09/14/20 19:57 Urine Creatinine 43.2 mg/dL (0.1-20.0) H 09/06/20 06:52 Urine Sodium 84 mmol/L 09/06/20 06:52 Urine Total Protein 298 mg/dL (5-11.8) H 09/06/20 06:52 Medications & Allergies - Medications Allergies/Adverse Reactions: Allergies No Known Allergies Allergy (Unverified 02/14/14 19:23) Home Medications: Home Medications Medication Instructions Recorded Confirmed Last Taken Type Aspirin [[place] Aspirin] 81 mg PO DAILY 02/14/14 02/22/14 02/14/14 11:00 History Ferrous Sulfate [Feosol 325mg] 325 mg PO DAILY 02/14/14 02/22/14 02/14/14 11:00 History Sertraline [Zoloft] 50 mg PO DAILY 02/14/14 02/22/14 02/14/14 11:00 History amLODIPine 5 mg PO DAILY 02/14/14 02/22/14 02/14/14 11:00 History hydroCHLOROthiazide 25 mg PO DAILY 02/14/14 02/22/14 02/14/14 11:00 History [Hydrochlorothiazide] Aspirin EC [Ecotrin] 325 mg PO QDAY #60 tablet 09/17/20 Unknown Rx Insulin Glargine [Lantus VIAL] 14 units SUB-Q QHS 30 Days 09/17/20 Unknown Rx Pantoprazole [Protonix TAB] 40 mg PO BIDAC #60 tablet 09/17/20 Unknown Rx calcitrioL [Rocaltrol] 0.5 mcg PO QDAY #30 capsule 09/17/20 Unknown Rx metOLazone [Zaroxolyn] 10 mg PO QDAY #30 tablet 09/17/20 Unknown Rx Active Medications: Generic Name Dose Route Start Last Admin Trade Name Freq PRN Reason Stop Dose Admin Acetaminophen 650 mg 09/02/20 00:30 09/05/20 22:50 Tylenol PO 650 mg Q6H PRN Administration Pain, Mild (1-3) Amlodipine Besylate 10 mg 09/21/20 12:00 09/26/20 11:20 Amlodipine PO Not Given DAILY [facility] Calcitriol 0.5 mcg 09/05/20 13:00 09/25/20 10:14 Rocaltrol PO Not Given QDAY JAE Clonidine HCl 0.1 mg 09/26/20 10:00 09/26/20 11:44 Catapres-Tts Patch TD 0.1 mg Sa JAE Administration Dextrose 50 ml 09/11/20 19:09 D50w (25gm) Syringe IV Q30MIN PRN Hypoglycemia Protocol Ferrous Sulfate 308 mg 09/21/20 10:00 09/26/20 11:19 Ferrous Sulfate FEEDTUBE Not Given DAILY [facility] Haloperidol Lactate 5 mg 09/11/20 19:10 Haldol IM Q6H PRN Agitation Hydralazine HCl 10 mg 09/10/20 22:23 09/14/20 05:46 Apresoline IV 10 mg Q6H PRN Administration Blood Pressure Sodium Bicarbonate 50 meq/ 1,050 mls @ 75 mls/hr 09/24/20 15:00 09/26/20 1 1:17 Dextrose IV 75 mls/hr DIRECT JAE Administration Insulin Human Lispro 0 unit 09/19/20 12:00 09/26/20 06:44 Humalog SUB-Q Not Given Q6HR [facility] Protocol Multivitamins 5 ml 09/18/20 10:00 09/26/20 11:19 Centrum Liq PO Not Given QDAY JAE Oxymetazoline HCl 2 spray 09/24/20 08:00 09/26/20 08:51 Vicks Sinex NS 09/27/20 07:59 2 spray Q12H JAE Administration Pantoprazole Sodium 40 mg 09/22/20 10:00 09/26/20 11:19 Protonix IV 40 mg BID JAE Administration Potassium Bicarbonate 50 meq 09/10/20 22:00 09/26/20 11:20 Klor-Con PO Not Given BID JAE Sertraline HCl 50 mg 09/02/20 10:00 09/25/20 10:15 Zoloft PO Not Given DAILY JAE Sodium Chloride 10 ml 09/02/20 10:00 09/25/20 22:11 Sodium Chloride Flush Syringe 10 Ml IV 10 ml BID JAE Administration Sodium Chloride 10 ml 09/02/20 00:30 Sodium Chloride Flush Syringe 10 Ml IV PRN PRN LINE FLUSH
[2020-09-26] MEDS: SERTRALINE 50 MG TAB PO SCH (15:38)
[2020-09-26] MEDS: CALCITRIOL 0.5 MCG CAP PO SCH (15:38)
[2020-09-27] MEDS: INSULIN LISPRO 100 UNIT/ML VIAL 3 mL SUB-Q SCH ×4 (00:03→18:42)
[2020-09-27] MEDS: SODIUM BICARBONATE 50 MEQ in DEXTROSE 5% IN WATER 1,000 ML IV SCH ×2 (02:36→22:27)
[2020-09-27] MEDS: DEXTROSE 50% IN WATER (25GM) 50 ML SYRINGE IV PRN (05:59)
[2020-09-27 06:35] LABS: Calcium 7.6 mg/dL (8.4-10.2)
--- NOTE | 2020-09-27 09:36 | Progress Note ---
Assessment and Plan Assessment and plan: --S/P Cardiorespiratory arrest on 09/17/20 Intubated on vent, pulmonary critical, cardiology following Patient was weaned and extubated yesterday Today patient is alert and awake on nasal cannula oxygen -- Acute delirium/acute metabolic encephalopathy Etiology unknown, likely initially was metabolic Significantly improved, neuro, psych consult as needed --Sepsis ;Due to COVID-19 pneumonia Received complete treatment,Blood culture NTD --Septic shock, status post pressor following cardiac arrest BP now stable, continue to monitor --COVID-19 pneumonia, POA Coronavirus protocol: Coronavirus PCR is positive, contact precaution, isolation precautions, prone positioning while in bed, Not a candidate for remdesivir due to renal failure Continue dexamethasone, s/p convalescent plasma --Acute on chronic anemia Due to chronic GI bleed and iron deficiency Status post transfusion of 3 units PRBC, PPI. Continue to monitor for GI bleed As per GI, does not look like patient is having GI bleed at this time Advance diet as tolerated --Possible GI bleed, chronic Advance diet, GI on board Recommended to manage medically --Acute kidney injury (DIRK) with acute tubular necrosis (ATN) Continue to monitor renal function Nephrology following closely --Hypernatremia Continue isotonic solution Nephrology on board --Bilateral lower extremity DVT, chronic Consulted vascular surgeon for consideration of IVC filter placement. As per vascular surgery, patient is not a good candidate for IVC filter pl acement INR 2.74. GI recommended to treat with aspirin only --Diabetes type II Accu-Chek sliding scale coverage ADA diet Insulin as needed --Ongoing tobacco use; Smoking cessation counseling Nicotine patch as needed --EPIXTASIS --DVT prophylaxis, Anticoagulation --full code status Bedside swallow eval versus speech therapy swallow eval Patient is stable to be transferred out of ICU to medical floor. Physical therapy occupational therapy The high probability of a clinically significant, sudden or life threatening deterioration of the [COSTUMER, CVS, respiratory, renal, GI] system(s) required my full and direct attention, intervention and personal management. The aggregate critical care time was [35] minutes. This time is in addition to time spent performing reported procedures but includes the following: [x] Data Review and interpretation [x] Patient assessment and monitoring of vital signs [x] Documentation [x] Medication orders and management Plan of care reviewed with the patient and her nurse Brief History; 64 YO Female with HTN, DM, Anemia, PVD, Nicotine Dependence, positive coronavirus test recently at [place] presented to the emergency room for further evaluation. Patient states that she has experienced subjective fever, generalized weakness, body aches, shortness of breath, nausea, multiple loose stools, lower extremity edema over the past 1 week with progressively worsening symptoms over the past 3 to 4 days prior to presentation. Here, patient found to be hypotensive with a systolic blood pressure ranging from 53-94. Patient was also hypothermic with a body temperature of 93.3 F. Patient met criteria for sepsis protocol and found to have bilateral pneumonia, metabolic acidosis, acute kidney injury. Patient admitted to telemetry due to increased risk of multisystem decompensation. Patient initiated on coronavirus protocol. Coronavirus PCR has been ordered, Patient remained hypotensive in spite of IV fluid resuscitation therapy. Patient subsequently upgraded to IMCU. Her repeat COVID-19 test was positive. She was treated with dexamethasone daily for 10 days. Remdesivir could not be given because of worsening renal function. Did receive convalescent plasma. Patient was downgraded to MedSurg. Patient did have on and off delirium recovering restrain. But she was clinically improving and was planning for discharge. On 09/17 morning she developed cardiorespiratory arrest following a coffee-ground emesis. Patient was intubated and transferred to ICU, critical care was consulted, placed on pressor support for hypotension. Family updated and wanted to continue aggressive care. s/p extubation today. daily course: 09/03. While in the ER, patient had an ultrasound Doppler performed that showed bilateral DVT involving the iliac veins. Patient was started on heparin drip. ID consulted for COVID-19 and nephrology consulted for DIRK. Patient seen and examined at bedside this morning. She has no complaints this morning. Her hemoglobin dropped to 6.4 this morning. Patient will get transfused 1 unit of PRBCs. Later this p.m., was notified by nurse that patient is having tarry dark stool and hematemesis. Heparin drip discontinued. Patient started on PPI drip and made n.p.o. GI is has been consulted. Patient will need to have an upper endoscopy. She has bilateral lower extremity DVT and will need vascular surgery evaluation to determine if she is a candidate for IVC filter placement. 09/04. Patient seen and examined at bedside this morning. Labs reviewed showed hemoglobin 5.3. Patient will receive 2 units PRBCs. FFP also ordered. GI evaluation pending. Continue PPIs. Vascular surgeon to see to determine if patient is a candidate for IVC filter placement for DVT. 09/05. Hb stable this morning. GI on board. On PPI drip. 09/06. Gastroenterology and vascular surgery recommendations reviewed. Patient not a good candidate for IVC filter placement due to location of the clot/thrombosis. Plan is for patient to have anticoagulation on while monitoring hemoglobin. Patient's INR is more than 2 at this time so we will hold anticoagulation for now and monitor hemoglobin. Plan to initiate anticoagulation when INR is less than 2. We will preferably use heparin products as she has a high chance of bleeding. Continue to monitor hemoglobin. Hb 7.3 this a.m. 09/07. Hemoglobin 8.2 this AM. No clear signs of GI bleed. Her INR is 2.74. No need for initiation of AC for now as she INR is already therapeutic. Plan is to monitor for bleeding and if she remains stable, she will be started on anticoagulation for her bilateral DVT. Vascular surgery following-patient not a candidate for IVC catheter placement. GI recommendations appreciated 09/08: Patient is nonreactive to COVID-19 antibody, per ID order for convalescent plasma. Continue supportive care, follow clinically 09/09: Pending convalescent plasma transfusion, continue to follow inflammatory markers. Monitor H&H. Plan to start on aspirin tomorrow if INR and H&H stable 09/10: hb dropped to 6.8, transfuse one unit, discussed with GI - no plan for endoscopy now, cont to follow clinically 09/11: patient didn't get transfusion yesterday. became very agitated today, ord ered as needed haldol, cont iv fluid. monitor clinically 09/12: placed on restrain o/n. cont supportive care, lost IV line - ordered for midline. pending PRBC transfusion 09/13: monitor h/h, patient more clam today, continue supportive care, follow BMP - Na and Cr has been improving 09/14: cont to monitor, follow BMP, follow h/h. oral intake improved per RN 09/15: If h/h stable and Cr cont to improves will d/c in a day or two 09/16; spoke with daughter and updated her with patient's clinical condition. family willing to accept the patient tomorrow. RN reported some Nose bleeding earlier today, but now resolved. repeat h/h stable 09/17: had respiratory/cardiac arrest this am. patient transferred to ICU. updated family. will get CT head, patient now intubated, start on bicarbonate drip 09/18; remains unresponsive, NG tube placed and noted bolld from the NG tube, discussed with GI - recommended PRBC/FFP transfusion. patient remains unresponsive w/o sedation and intubated. Called daughter and updated. 09/19: - Patient had OG tube with initial bloody secretions on insertion but currently with dark greenish output. No active bloody output from the OG tube. Rectal tube with dark greenish bilious output. No clear signs of active on-going GI bleeding. Off levophed. Continue to monitor H&H, transfuse as needed. Patient remains unresponsive without any sedation. Poor prognosis which I discussed with the family 09/20: cont supportive care, wean off vent as tolerated. Updated family by phone 09/21: s/p extubation today. Continue to assess mental status. Continue s upportive care. We will stop the bicarbonate drip and start sodium bicarbonate with feeding tube. We will continue half-normal saline for now and monitor BMP daily, ordered speech eval. 09/22; patient was extubated yesterday, today doing well on nasal cannula oxygen, will request for swallow eval, and ordered diet as tolerated Will downgrade her to medical floor, she is still agitated will renew her restraints. Closely monitor DC planning per case management 09/23: Recurrent nosebleed. Rhino Rocket placed in the left nare. Afrin ordered twice daily. Aspiration precautions at this time. No worsening oxygen demand. Will monitor for additional 24 hours. Discharge planning from them. Discussed with nurses at bedside and also with patient. SCDs for DVT prophylaxis discontinue chemical chemoprophylaxis. 09/24: No further bleeding, possible Rhino rocket was replaced as it looks d ifferent, continue Afrin, MONITOR H/H and PLT. 09/25: Clinically stable continue Afrin nose packing is out. Will reevaluate swallowing. Awaiting for cardiology clearance for possible PEG if continues to fail swallowing evaluation. Encourage movement as much as possible due to risk of dvt development. discussed with family 09/26; Continue supportive care, no further bleeding reported. will keep NPO midnight monday to monday for possible PEG placement patient still failed swallo w evaluation per speech re-evaluation 'Received a repeat order for an evaluation. Patient was assessed on 09/23/20. NPO was recommended at the time due to her inability to participate and poor swallowing ability. Patient is unchanged from two days prior and is not appropriate for po consumption. She holds the bolus in the oral cavity and fails to initiate a swallow which places her at risk for aspiration. PEG placement is recommended for this patient. No further recommendations.' Due to labile BP will add patch of clonidine. 09/27: BP stable. Await reevaluation by speech and possible PEG placement prior to discharge. History Interval history: Patient seen and examined this morning, no worsening shortness of breath. No further nose bleed Hospitalist Physical - Physical exam Narrative exam: General appearance: Present: no acute distress, well-nourished, chronically ill- appearing - EENT Eyes: Present: PERRL, EOM intact, rhino rocket inplace. - Neck Neck: Present: supple, normal ROM - Respiratory Respiratory effort: normal Respiratory: bilateral: diminished, rhonchi, negative: rales, wheezing - Cardiovascular Rhythm: regular Heart Sounds: Present: S1 & S2 - Extremities Extremities: no ischemia, No edema - Abdominal General gastrointestinal: soft, non-tender, non-distended, normal bowel sounds - Integumentary Integumentary: Present: clear, warm - Psychiatric Psychiatric: appropriate mood/affect, cooperative - Neurologic Neurologic: moves all extremities - Patient Problems - Constitutional Vitals: Temp Pulse Resp BP Pulse Ox 97.7 F 76 18 140/81 100 09/27/20 03:48 09/27/20 03:48 09/27/20 03:48 09/27/20 03:48 09/27/20 03:48 General appearance: Present: no acute distress, well-nourished Results - Labs CBC & Chem 7: 09/26/20 08:29 09/27/20 05:28 Labs: Laboratory Last Values WBC 10.4 K/mm3 (4.5-11.0) 09/26/20 08:29 RBC 3.07 M/mm3 (3.65-5.03) L 09/26/20 08: Hgb 8.7 gm/dl (10.1-14.3) L 09/26/20 08:29 Hct 26.4 % (30.3-42.9) L 09/26/20 08:29 MCV 86 fl (79-97) 09/26/20 08:29 MCH 28 pg (28-32) 09/26/20 08:29 MCHC 33 % (30-34) 09/26/20 08:29 RDW 17.3 % (13.2-15.2) H 09/26/20 08:29 Plt Count 85 K/mm3 (140-440) L 09/26/20 08:29 Lymph % (Auto) Insurance Investigator 09/22/20 08:00 [place] % (Auto) Insurance Investigator 09/22/20 08:00 Eos % (Auto) Insurance Investigator 09/22/20 08:00 Baso % (Auto) Insurance Investigator 09/22/20 08:00 Lymph # (Auto) Insurance Investigator 09/22/20 08:00 [place] # (Auto) Insurance Investigator 09/22/20 08:00 Eos # (Auto) 0.0 K/mm3 (0.0-0.4) 09/08/20 05:18 Baso # (Auto) 0.0 K/mm3 (0.0-0.1) 09/08/20 05:18 Add Manual Diff Complete 09/22/20 08:00 Total Counted 100 09/22/20 08:00 Seg Neutrophils % Insurance Investigator 09/22/20 08:00 Seg Neuts % (Manual) 99.0 % (40.0-70.0) H 09/22/20 08:00 Band Neutrophils % 0 % 09/22/20 08:00 Lymphocytes % (Manual) 0 % (13.4-35.0) L 09/22/20 08:00 Reactive Lymphs % (Man) 0 % 09/22/20 08:00 Monocytes % (Manual) 1.0 % (0.0-7.3) 09/22/20 08:00 Eosinophils % (Manual) 0 % (0.0-4.3) 09/22/20 08:00 Basophils % (Manual) 0 % (0.0-1.8) 09/22/20 08:00 Metamyelocytes % 0 % 09/22/20 08:00 Myelocytes % 0 % 09/22/20 08:00 Promyelocytes % 0 % 09/22/20 08:00 Blast Cells % 0 % 09/22/20 08:00 Nucleated RBC % 1.0 % (0.0-0.9) H 09/22/20 08:00 Seg Neutrophils # 9.5 K/mm3 (1.8-7.7) H 09/08/20 05:18 Seg Neutrophils # Man 11.3 K/mm3 (1.8-7.7) H 09/22/20 08:00 Band Neutrophils # 0.0 K/mm3 09/22/20 08:00 Lymphocytes # (Manual) 0.0 K/mm3 (1.2-5.4) L 09/22/20 08:00 Abs React Lymphs (Man) 0.0 K/mm3 09/22/20 08:00 Monocytes # (Manual) 0.1 K/mm3 (0.0-0.8) 09/22/20 08:00 Eosinophils # (Manual) 0.0 K/mm3 (0.0-0.4) 09/22/20 08:00 Basophils # (Manual) 0.0 K/mm3 (0.0-0.1) 09/22/20 08:00 Metamyelocytes # 0.0 K/mm3 09/22/20 08:00 Myelocytes # 0.0 K/mm3 09/22/20 08:00 Promyelocytes # 0.0 K/mm3 09/22/20 08:00 Blast Cells # 0.0 K/mm3 09/22/20 08:00 WBC Morphology Not Reportable 09/22/20 08:00 Hypersegmented Neuts Not Reportable 09/22/20 08:00 Hyposegmented Neuts Not Reportable 09/22/20 08:00 Hypogranular Neuts Not Reportable 09/22/20 08:00 Smudge Cells Not Reportable 09/22/20 08:00 Toxic Granulation Not Reportable 09/22/20 08:00 Toxic Vacuolation Not Reportable 09/22/20 08:00 Dohle Bodies Not Reportable 09/22/20 08:00 Pelger-Huet Anomaly Not Reportable 09/22/20 08:00 Ignacia Rods Not Reportable 09/22/20 08:00 Platelet Estimate Consistent w auto 09/22/20 08:00 Clumped Platelets Not Reportable 09/22/20 08:00 Plt Clumps, EDTA Not Reportable 09/22/20 08:00 Large Platelets Not Reportable 09/22/20 08:00 Giant Platelets Not Reportable 09/22/20 08:00 Platelet Satelliting Not Reportable 09/22/20 08:00 Plt Morphology Comment Not Reportable 09/22/20 08:00 RBC Morphology Not Reportable 09/22/20 08:00 Dimorphic RBCs Not Reportable 09/22/20 08:00 Polychromasia Not Reportable 09/22/20 08:00 Hypochromasia 1+ 09/22/20 08:00 Poikilocytosis 1+ 09/22/20 08:00 Anisocytosis Not Reportable 09/22/20 08:00 Microcytosis Not Reportable 09/22/20 08:00 Macrocytosis Not Reportable 09/22/20 08:00 Spherocytes Not Reportable 09/22/20 08:00 Pappenheimer Bodies Not Reportable 09/22/20 08:00 Sickle Cells Not Reportable 09/22/20 08:00 Target Cells Not Reportable 09/22/20 08:00 Tear Drop Cells Not Reportable 09/22/20 08:00 Ovalocytes Not Reportable 09/22/20 08:00 Helmet Cells Not Reportable 09/22/20 08:00 [place] Bodies Not Reportable 09/22/20 08:00 [place] Rings Not Reportable 09/22/20 08:00 [place] Cells 1+ 09/22/20 08:00 Bite Cells Not Reportable 09/22/20 08:00 Crenated Cell Not Reportable 09/22/20 08:00 Elliptocytes Not Reportable 09/22/20 08:00 Acanthocytes (Spur) Not Reportable 09/22/20 08:00 Rouleaux Not Reportable 09/22/20 08:00 Hemoglobin C Crystals Not Reportable 09/22/20 08:00 Schistocytes 1+ 09/22/20 08:00 Malaria parasites Not Reportable 09/22/20 08:00 [place] Bodies Not Reportable 09/22/20 08:00 Hem Pathologist Commnt No 09/22/20 08:00 PT 22.5 Sec. (12.2-14.9) H 09/19/20 08:50 INR 1.97 (0.87-1.13) H 09/19/20 08:50 APTT 29.2 Sec. (24.2-36.6) 09/02/20 13:52 D-Dimer 1076.18 ng/mlDDU (0-234) H 09/01/20 21:55 Heparin Anti-Xa Level 0.94 U.I./ml (0.3-0.7) H 09/03/20 05:17 ABG pH 7.441 (7.320-7.450) 09/21/20 03:25 POC ABG pCO2 28.2 mmHg (32.0-48.0) L 09/21/20 03:25 POC ABG pO2 112.5 mmHg (83-108) H 09/21/20 03:25 POC ABG HCO3 18.8 09/21/20 03:25 POC ABG Base Excess -4.5 09/21/20 03:25 ABG Hemoglobin 9.4 (12.0-17.5) L 09/21/20 03:25 ABG Sodium 136.3 mmol/L (136.0-145.0) 09/21/20 03:25 ABG Potassium 4.4 mmol/L (3.40-4.50) 09/21/20 03:25 ABG Chloride 110.0 mmol/L (98-107) H 09/21/20 03:25 ABG Glucose 163 mg/dL (65-95) H 09/21/20 03:25 FiO2 40.0 09/21/20 03:25 Sodium 143 mmol/L (137-145) 09/27/20 05:28 Potassium 4.0 mmol/L (3.6-5.0) 09/27/20 05:28 Chloride 109.4 mmol/L (98-107) H 09/27/20 05:28 Carbon Dioxide 27 mmol/L (22-30) 09/27/20 05:28 Anion Gap 11 mmol/L 09/27/20 05:28 BUN 41 mg/dL (7-17) H 09/27/20 05:28 Creatinine 1.8 mg/dL (0.6-1.2) H 09/27/20 05:28 Estimated GFR 34 ml/min 09/27/20 05:28 BUN/Creatinine Ratio 23 % 09/27/20 05:28 Glucose 82 mg/dL (65-100) 09/27/20 05:28 POC Glucose 75 mg/dL (70-105) 09/27/20 05:22 Lactic Acid 0.60 mmol/L (0.7-2.0) L 09/02/20 08:10 Calcium 7.6 mg/dL (8.4-10.2) L 09/27/20 05:28 Phosphorus 3.60 mg/dL (2.5-4.5) 09/25/20 15:25 Magnesium 2.20 mg/dL (1.7-2.3) 09/14/20 19:57 Iron 28 ug/dL (37-170) L 09/07/20 09:13 TIBC 188 mcg/dL (250-450) L 09/07/20 09:13 Ferritin 313.5 ng/mL (10.0-200.0) H 09/01/20 21:55 Total Bilirubin 0.70 mg/dL (0.1-1.2) 09/19/20 04:29 AST 29 units/L (5-40) 09/19/20 04:29 ALT 43 units/L (7-56) 09/19/20 04:29 Alkaline Phosphatase 185 units/L (35-129) H 09/19/20 04:29 Lactate Dehydrogenase 435 units/L (91-180) H 09/01/20 21:55 C-Reactive Protein 2.30 mg/dL (0.00-1.30) H 09/01/20 21:55 NT-Pro-B Natriuret Pep 17516 pg/mL (0-900) H 09/01/20 21:55 Serum Total Protein 4.3 g/dL (6.1-8.1) L 09/16/20 13:44 Total Protein 4.3 g/dL (6.3-8.2) L 09/19/20 04:29 Albumin 2.1 g/dL (3.9-5) L 09/19/20 04:29 Albumin/Globulin Ratio 1.0 % 09/19/20 04:29 Buekl-9-Hxetrgdpc 0.5 g/dL (0.2-0.3) H 09/16/20 13:44 Yxyer-0-Vyuktjiet 0.6 g/dL (0.5-0.9) 09/16/20 13:44 Beta Globulins 0.3 g/dL (0.2-0.5) 09/16/20 13:44 Gamma Globulins 0.8 g/dL (0.8-1.7) 09/16/20 13:44 Abnorm Protein Band 1 see below 09/16/20 13:44 PEP Interpretation see below H 09/16/20 13:44 Vitamin B12 843.2 pg/mL (211-911) 09/07/20 09:13 Procalcitonin 0.10 ng/mL (<0.15) 09/01/20 21:55 TSH 0.735 mlU/mL (0.270-4.200) 09/02/20 00:45 Free T4 0.92 ng/dL (0.76-1.46) 09/02/20 00:45 Free T4 0.94 ng/dL (0.76-1.46) 09/02/20 00:45 PTH Intact 820.4 pg/mL (15-65) H 09/04/20 05:18 Arterial Blood Glucose 163 mg/dL (65-95) H 09/21/20 03:25 Arterial Blood Ionized Calcium 4.7 mg/dL (4.6-5.3) 09/21/20 03:25 Urine Color Elena (Yellow) 09/02/20 03:44 Urine Turbidity Cloudy (Clear) 09/02/20 03:44 Urine pH 7.0 (5.0-7.0) 09/02/20 03:44 Ur Specific [place] 1.015 (1.003-1.030) 09/02/20 03:44 Urine Protein >500 mg/dL (Negative) 09/02/20 03:44 Urine Glucose (UA) Neg mg/dL (Negative) 09/02/20 03:44 Urine Ketones Neg mg/dL (Negative) 09/02/20 03:44 Urine Blood Neg (Negative) 09/02/20 03:44 Urine Nitrite Neg (Negative) 09/02/20 03:44 Urine Bilirubin Neg (Negative) 09/02/20 03:44 Urine Urobilinogen < 2.0 mg/dL (<2.0) 09/02/20 03:44 Ur Leukocyte Esterase Neg (Negative) 09/02/20 03:44 Urine WBC (Auto) < 1.0 /HPF (0.0-6.0) 09/02/20 03:44 Urine RBC (Auto) < 1.0 /HPF (0.0-6.0) 09/02/20 03:44 U Epithel Cells (Auto) < 1.0 /HPF (0-13.0) 09/02/20 03:44 Urine Bacteria (Auto) 2+ /HPF (Negative) 09/02/20 03:44 Urine Mucus Few /HPF 09/02/20 03:44 Urine Creatinine 43.2 mg/dL (0.1-20.0) H 09/06/20 06:52 Protein/Creatinin Ratio 6.90 09/06/20 06:52 Urine Sodium 84 mmol/L 09/06/20 06:52 Urine Total Protein 298 mg/dL (5-11.8) H 09/06/20 06:52 DEMARCUS Screen Negative (Negative) 09/17/20 00:10 Proteinase 3 (PR3) Ab <1.0 AI (<1.0) 09/17/20 00:10 Myeloperoxidase Ab <1.0 AI (<1.0) 09/17/20 00:10 Glomerular Base Mem IgG See scanned result 09/16/20 13:44 Complement C3 82 mg/dL (83-193) L 09/17/20 00:10 Complement C4 26 mg/dL (15-57) 09/17/20 00:10 C. difficile Tox (PCR) Negative (Negative) 09/02/20 13:05 Coronavirus (PCR) Positive (Negative) A 09/17/20 Unknown SARS-CoV-2 IgG Ab Nonreactive (NonReactive) 09/02/20 08:10 Blood Type O POSITIVE 09/17/20 13:49 Antibody Screen Negative 09/17/20 13:49 Crossmatch See Detail 09/17/20 13:49 - Diagnostic Impressions Diagnostic Impressions: Echocardiogram 09/22/20 13:29 Transthoracic Echocardiogram Indication: Cardiopulmonary arrest BP: 175/66 HR: 71 Conclusions *4-chamber dilated cardiomyopathy. *Global left ventricular systolic function is mildly decreased. *The estimated ejection fraction is 40-45%. *Mild concentric left ventricular hypertrophy is observed. *There is mild to moderate mitral regurgitation. *There is mild to moderate tricuspid regurgitation. *There is moderately-severe pulmonary hypertension. *The right ventricular systolic pressure is calculated at 62 mmHg. *There is a minimial pericardial effusion. Findings Left Ventricle: The left ventricular chamber size is mildly dilated. Mild concentric left ventricular hypertrophy is observed. Global left ventricular systolic function is mildly decreased. The estimated ejection fraction is 40-45%. Left Atrium: The left atrium is moderately dilated. Right Ventricle: The right ventricle is mildly dilated. The right ventricular global systolic function is mildly reduced. Right Atrium: The right atrium is moderately dilated. Aortic Valve: The aortic valve is trileaflet. The aortic valve leaflets are moderately thickened. There is no evidence of aortic regurgitation. There is no evidence of aortic stenosis. Mitral Valve: The mitral valve leaflets are mildly thickened. There is mild to moderate mitral regurgitation. There is no evidence of mitral stenosis. Tricuspid Valve: The tricuspid valve leaflets are normal. There is mild to moderate tricuspid regurgitation. The right ventricular systolic pressure is calculated at 62 mmHg. There is evidence of severe pulmonary hypertension. Pulmonic Valve: There is mild pulmonic regurgitation. Pericardium: There is a minimial pericardial effusion. Aorta: There is no dilatation of the ascending aorta. There is no dilatation of the aortic root. Venous: The inferior vena cava is dilated. Measurements Chambers 2D Name Value Normal Range IVSd (2D) 1.17 cm (0.6 - 1.1) LVPWd (2D) 1.15 cm (0.6 - 1.1) IVS:LVPW ratio (2D) 1.02 ratio - LVIDd (2D) 5 cm (3.7 - 5.6) LVIDs (2D) 3.71 cm (2 - 3.8) LV FS (Teichholz) (2D) 25.8 % - LV FS (cube) (2D) 25.8 % - EF Teichholz (2D) 50.4 % - Ao root diameter (2D) 2.6 cm (2 - 3.7) LA dimension (AP) 2D 5.1 cm (1.9 - 4) LA:Ao ratio (2D) 1.96 ratio - Volumes/Mass Name Value Normal Range LA ESV SP 4CH (MOD) 49 ml - LA ESV SP 2CH (MOD) 96 ml - LA ESV BP (MOD) 69 ml - LA ESV BP (MOD) index 33.2 ml/m2 - Diastolic/Systolic Function Name Value Normal Range MV E-wave Vmax 1.21 m/sec - MV deceleration time 254 msec - MV A-wave Vmax 1.12 m/sec - MV E:A ratio 1.1 ratio - Aortic Valve Name Value Normal Range AV VTI 31.1 cm - AV mean gradient 4 mmHg - LVOT diameter 2 cm - LVOT VTI 19.4 cm - LVOT mean gradient 2 mmHg - Mitral Valve Name Value Normal Range MV Vmax 1.44 m/sec - MV VTI 35.9 cm - MV peak gradient 8 mmHg - MV mean gradient 5 mmHg - MR Vmax 5.52 m/sec - Tricuspid Valve Name Value Normal Range TR Vmax 3.52 m/sec - TR peak gradient 50 mmHg - RVSP 62 mmHg - [place]/IV: Voiding Method Indwelling Catheter IV Catheter Type [Left Upper PICC Line arm] IV Catheter Type [Right INT / Saline Lock Forearm] IV Catheter Type [Left INT / Saline Lock Antecubital] IV Catheter Type [Right Hand] INT / Saline Lock IV Catheter Type [Right Upper Mid-line arm] IV Catheter Type [Right INT / Saline Lock External Jugular] Active Medications - Current Medications Current Medications: Generic Name Dose Route Start Last Admin Trade Name Freq PRN Reason Stop Dose Admin Acetaminophen 650 mg 09/02/20 00:30 09/05/20 22:50 Tylenol PO 650 mg Q6H PRN Administration Pain, Mild (1-3) Amlodipine Besylate 10 mg 09/21/20 12:00 09/26/20 11:20 Amlodipine PO Not Given DAILY JAE Calcitriol 0.5 mcg 09/05/20 13:00 09/26/20 15:38 Rocaltrol PO Not Given QDAY JAE Clonidine HCl 0.1 mg 09/26/20 10:00 09/26/20 11:44 Catapres-Tts Patch TD 0.1 mg Sa JAE Administration Dextrose 50 ml 09/11/20 19:09 09/27/20 05:59 D50w (25gm) Syringe IV 50 ml Q30MIN PRN Administration Hypoglycemia Protocol Ferrous Sulfate 308 mg 09/21/20 10:00 09/26/20 11:19 Ferrous Sulfate FEEDTUBE Not Given DAILY JAE Haloperidol Lactate 5 mg 09/11/20 19:10 Haldol IM Q6H PRN Agitation Hydralazine HCl 10 mg 09/10/20 22:23 09/14/20 05:46 Apresoline IV 10 mg Q6H PRN Administration Blood Pressure Sodium Bicarbonate 50 meq/ 1,050 mls @ 50 mls/hr 09/24/20 15:00 09/27/20 02:36 Dextrose IV 75 mls/hr DIRECT JAE Administration Insulin Human Lispro 0 unit 09/19/20 12:00 09/27/20 06:00 Humalog SUB-Q Not Given Q6HR [facility] Protocol Multivitamins 5 ml 09/18/20 10:00 09/26/20 11:19 Centrum Liq PO Not Given QDAY JAE Pantoprazole Sodium 40 mg 09/22/20 10:00 09/26/20 21:51 Protonix IV 40 mg BID JAE Administration Potassium Bicarbonate 50 meq 09/10/20 22:00 09/26/20 21:52 Klor-Con PO Not Given BID JAE Sertraline HCl 50 mg 09/02/20 10:00 09/26/20 15:38 Zoloft PO Not Given DAILY JAE Sodium Chloride 10 ml 09/02/20 10:00 09/26/20 21:51 Sodium Chloride Flush Syringe 10 Ml IV 10 ml BID JAE Administration Sodium Chloride 10 ml 09/02/20 00:30 Sodium Chloride Flush Syringe 10 Ml IV PRN PRN LINE FLUSH Nutrition/Malnutrition Assess - Dietary Evaluation Nutrition/Malnutrition Findings: Nutrition Notes Start: 09/03/20 13:19 Freq: Status: Active Protocol: Document 09/25/20 12:00 (Rec: 09/25/20 12:04 [id number]) Nutrition Notes Initial or Follow up Reassessment Current Diagnosis Acute Kidney Injury,CKD(stage I-IV),Diabetes Other Pertinent Diagnosis COVID-19 (+), pneu, anemia, bilat BKA, erosive esophagitis Current Diet No diet Labs/Tests 09/24: BUN 51 Cr 2 Pertinent Medications Reviewed Height 5 ft 6 in Weight 103 kg [place] Body Weight (kg) 59.09 BMI 36.6 Weight Status Obese Subjective/Other Information FU for diet advancement. Previous HARDWARE TECHNICIAN eval recommended NPO. MD ordered new eval - will follow for plan of care. Pt with deep tissue injury on sacrum. Percent of energy/protein needs met: 0%/0% Burn Absent Trauma Absent Difficulty In Swallowing Current % PO Negligible Minimum of two criteria No physical signs of malnutrition #2 Nutrition Diagnosis Increased nutrient needs ( specify in comment below) Comments: protein Etiology wound healing As Evidenced by Signs and Symptoms deep tissue injury on sacrum #1 Nutrition Diagnosis Inadequate oral intake Diagnosis Progress(for reassessment Continues documentation) Is patient on ventilator? No Is Patient Ambulatory and/or Out of Bed No REE-([facility] 1926.912 Kcal/Kg value to use for calculation 16 Approximate Energy Requirements Using 1648 kcal/Kg Calculation Used for Recommendations Kcal/kg Additional Notes Protein: 65-81g (0.8-1.2g/kg using AdjBW 81kg) Fluid: 1ml/kcal Nutrition Intervention Change Diet Order: Per HARDWARE TECHNICIAN Goal #1 Diet advancement or TF when medically able Anticipated Discharge Needs: Unable to determine at this time Follow-Up By: 09/28/20 Additional Comments F/U for diet advancement or need for TF
--- NOTE | 2020-09-27 11:19 | Progress Note ---
Assessment and Plan 1. Acute kidney injury: DIRK secondary to combination of Vasomotor nephropathy and severe sepsis. Renal US negative for hydro. Monitor renal function, improving. Prior Creatinine was 1.2 in 2014. Likely CKD stage 4. Renal prognosis is guarded. Avoid nephrotoxic agents. Meds dosage based on GFR. 2. FEN: Hyperchloremic Metabolic acidosis, on Potassium bicarbonate, monitor. Sod bicarb drip. Hypernatremia, improved, monitor. Monitor lytes. 3. Nephrotic syndrome: Likely diabetic nephropathy. DEMARCUS, ANCA and GBM Ab are negative. Complements appears normal. SPE; too small of M spike. 4. Severe sepsis, POA, now with shock: Off pressors. 5. S/p Cardiac arrest. 6. Severe COVID infection: Seen by ID. 7. Acute hypoxic resp failure: Intubated post-arrest. S/p extubated. 8. Bilateral LE DVT, POA. 9. Microcytic anemia, POA: S/p PRBC. Monitor. Seen by GI. 10. Thrombocytopenia, POA. 11. Acute diarrhea: Likely associated with COVID-19 infection. C. difficile test negative. Subjective: Patient was seen and examined at the bedside. Examination: General appearance: well-developed, appears stated age, no distress, restrains HEENT: JAYCE Neck: Trachea midline Respiratory: ctab Cardiology: regular, S1S2, no murmur Gastrointestinal: normoactive bowel sounds, no tenderness, not distended Integumentary: no obvious rash Neurologic: alert, oriented to self, moving extremities Ext: trace dependent edema, b/l BKA : [place] catheter Subjective Date of service: 09/27/20 Principal diagnosis: Iron Def Anemia Objective - Vital Signs Vital signs: Vital Signs - 12hr 09/27/20 09/27/20 03:48 10:00 Temperature 97.7 F Pulse Rate 76 Respiratory 18 Rate Blood Pressure 140/81 O2 Sat by Pulse 100 92 Oximetry - Lab 09/26/20 08:29 09/27/20 05:28 Most recent lab results ABG pH 7.441 (7.320-7.450) 09/21/20 03:25 Calcium 7.6 mg/dL (8.4-10.2) L 09/27/20 05:28 Phosphorus 3.60 mg/dL (2.5-4.5) 09/25/20 15:25 Magnesium 2.20 mg/dL (1.7-2.3) 09/14/20 19:57 Urine Creatinine 43.2 mg/dL (0.1-20.0) H 09/06/20 06:52 Urine Sodium 84 mmol/L 09/06/20 06:52 Urine Total Protein 298 mg/dL (5-11.8) H 09/06/20 06:52 Medications & Allergies - Medications Allergies/Adverse Reactions: Allergies No Known Allergies Allergy (Unverified 02/14/14 19:23) Home Medications: Home Medications Medication Instructions Recorded Confirmed Last Taken Type Aspirin [[place] Aspirin] 81 mg PO DAILY 02/14/14 02/22/14 02/14/14 11:00 History Ferrous Sulfate [Feosol 325mg] 325 mg PO DAILY 02/14/14 02/22/14 02/14/14 11:00 History Sertraline [Zoloft] 50 mg PO DAILY 02/14/14 02/22/14 02/14/14 11:00 History amLODIPine 5 mg PO DAILY 02/14/14 02/22/14 02/14/14 11:00 History hydroCHLOROthiazide 25 mg PO DAILY 02/14/14 02/22/14 02/14/14 11:00 History [Hydrochlorothiazide] Aspirin EC [Ecotrin] 325 mg PO QDAY #60 tablet 09/17/20 Unknown Rx Insulin Glargine [Lantus VIAL] 14 units SUB-Q QHS 30 Days 09/17/20 Unknown Rx Pantoprazole [Protonix TAB] 40 mg PO BIDAC #60 tablet 09/17/20 Unknown Rx calcitrioL [Rocaltrol] 0.5 mcg PO QDAY #30 capsule 09/17/20 Unknown Rx metOLazone [Zaroxolyn] 10 mg PO QDAY #30 tablet 09/17/20 Unknown Rx Active Medications: Generic Name Dose Route Start Last Admin Trade Name Freq PRN Reason Stop Dose Admin Acetaminophen 650 mg 09/02/20 00:30 09/05/20 22:50 Tylenol PO 650 mg Q6H PRN Administration Pain, Mild (1-3) Amlodipine Besylate 10 mg 09/21/20 12:00 09/26/20 11:20 Amlodipine PO Not Given DAILY JAE Calcitriol 0.5 mcg 09/05/20 13:00 09/26/20 15:38 Rocaltrol PO Not Given QDAY JAE Clonidine HCl 0.1 mg 09/26/20 10:00 09/26/20 11:44 Catapres-Tts Patch TD 0.1 mg Sa JAE Administration Dextrose 50 ml 09/11/20 19:09 09/27/20 05:59 D50w (25gm) Syringe IV 50 ml Q30MIN PRN Administration Hypoglycemia Protocol Ferrous Sulfate 308 mg 09/21/20 10:00 09/26/20 11:19 Ferrous Sulfate FEEDTUBE Not Given DAILY JAE Haloperidol Lactate 5 mg 09/11/20 19:10 Haldol IM Q6H PRN Agitation Hydralazine HCl 10 mg 09/10/20 22:23 09/14/20 05:46 Apresoline IV 10 mg Q6H PRN Administration Blood Pressure Sodium Bicarbonate 50 meq/ 1,050 mls @ 50 mls/hr 09/24/20 15:00 09/27/20 02:36 Dextrose IV 75 mls/hr DIRECT JAE Administration Insulin Human Lispro 0 unit 09/19/20 12:00 09/27/20 06:00 Humalog SUB-Q Not Given Q6HR JAE Protocol Multivitamins 5 ml 09/18/20 10:00 09/26/20 11:19 Centrum Liq PO Not Given QDAY JAE Pantoprazole Sodium 40 mg 09/22/20 10:00 09/26/20 21:51 Protonix IV 40 mg BID JAE Administration Potassium Bicarbonate 50 meq 09/10/20 22:00 09/26/20 21:52 Klor-Con PO Not Given BID JAE Sertraline HCl 50 mg 09/02/20 10:00 09/26/20 15:38 Zoloft PO Not Given DAILY JAE Sodium Chloride 10 ml 09/02/20 10:00 09/26/20 21:51 Sodium Chloride Flush Syringe 10 Ml IV 10 ml BID JAE Administration Sodium Chloride 10 ml 09/02/20 00:30 Sodium Chloride Flush Syringe 10 Ml IV PRN PRN LINE FLUSH
[2020-09-27] MEDS: MULTIVITAMINS 5 ML ORAL LIQUID PO SCH (12:03)
[2020-09-27] MEDS: FERROUS SULFATE 308 MG (62mg Elemental Iron) / 7 ML ELIXIR FEEDTUBE SCH (12:03)
[2020-09-27] MEDS: amLODIPine 10 MG TAB PO SCH (12:03)
[2020-09-27] MEDS: CALCITRIOL 0.5 MCG CAP PO SCH (12:04)
[2020-09-27] MEDS: SERTRALINE 50 MG TAB PO SCH (12:04)
[2020-09-27] MEDS: K-LYTE 25 MEQ TABLET EFF PO SCH ×2 (12:04→22:21)
--- NOTE | 2020-09-27 13:40 | Event Note ---
Date: 09/27/20 Patient failed repeat swallow study. will check INR and cbc. if INR < 1.5 and platelets stable, will plan for EGD/PEG tomorrow.
[2020-09-27] MEDS: PANTOPRAZOLE 40 MG INJ IV SCH ×2 (14:07→22:21)
[2020-09-27 15:51] LABS: Hematocrit 25.9 % (30.3-42.9); Hemoglobin 8.6 gm/dl (10.1-14.3); Mean Corpuscular HGB Conc 33 % (30-34); Mean Corpuscular Volume 86 fl (79-97); Platelet Count 114 K/mm3 (140-440); Red Blood Count 3.01 M/mm3 (3.65-5.03); Red Cell Distribution Width 17.6 % (13.2-15.2)
[2020-09-27 16:02] LABS: INR 2.73 (0.87-1.13)
[2020-09-27 20:57] LABS: Basophils % (Manual) 0 % (0.0-1.8); Total Cells Counted 100
[2020-09-27 20:58] LABS: Band Neutrophils # (Manual) 0.1 K/mm3; Eosinophils % (Manual) 0 % (0.0-4.3)
[2020-09-27 21:00] LABS: Burr Cells Rare
[2020-09-27 21:01] LABS: Hypochromasia Few; Poikilocytosis Few
[2020-09-27 21:22] LABS: Helmet Cells Rare; Platelet Estimate Consistent w Auto; Tear Drop Cells Rare
[2020-09-28] MEDS: INSULIN LISPRO 100 UNIT/ML VIAL 3 mL SUB-Q SCH ×3 (00:28→19:48)
[2020-09-28 06:47] LABS: Calcium 7.7 mg/dL (8.4-10.2)
[2020-09-28] MEDS ORDERED: PHYTONADIONE 10 MG/1 ML (ADULT ONLY)*INJECTION SUB-Q NR (08:30)
[2020-09-28] MEDS: amLODIPine 10 MG TAB PO SCH (10:03)
[2020-09-28] MEDS: MULTIVITAMINS 5 ML ORAL LIQUID PO SCH (10:03)
--- NOTE | 2020-09-28 10:03 | Event Note ---
Date: 09/28/20 Chart reviewed, INR 2.7. unable to do peg tube placement today given high INR.
[2020-09-28] MEDS: PANTOPRAZOLE 40 MG INJ IV SCH ×2 (10:04→20:59)
[2020-09-28] MEDS: FERROUS SULFATE 308 MG (62mg Elemental Iron) / 7 ML ELIXIR FEEDTUBE SCH (10:04)
[2020-09-28] MEDS: CALCITRIOL 0.5 MCG CAP PO SCH (10:04)
[2020-09-28] MEDS: K-LYTE 25 MEQ TABLET EFF PO SCH ×2 (10:04→20:59)
[2020-09-28] MEDS: SERTRALINE 50 MG TAB PO SCH (10:05)
--- NOTE | 2020-09-28 11:08 | Progress Note ---
Assessment and Plan Assessment and plan: --S/P Cardiorespiratory arrest on 09/17/20 Intubated on vent, pulmonary critical, cardiology following Patient was weaned and extubated yesterday Today patient is alert and awake on nasal cannula oxygen -- Acute delirium/acute metabolic encephalopathy Etiology unknown, likely initially was metabolic Significantly improved, neuro, psych consult as needed --Sepsis ;Due to COVID-19 pneumonia Received complete treatment,Blood culture NTD --Septic shock, status post pressor following cardiac arrest BP now stable, continue to monitor --COVID-19 pneumonia, POA Coronavirus protocol: Coronavirus PCR is positive, contact precaution, isolation precautions, prone positioning while in bed, Not a candidate for remdesivir due to renal failure Continue dexamethasone, s/p convalescent plasma --Acute on chronic anemia Due to chronic GI bleed and iron deficiency Status post transfusion of 3 units PRBC, PPI. Continue to monitor for GI bleed As per GI, does not look like patient is having GI bleed at this time Advance diet as tolerated --Possible GI bleed, chronic Advance diet, GI on board Recommended to manage medically --Acute kidney injury (DIRK) with acute tubular necrosis (ATN) Continue to monitor renal function Nephrology following closely --Hypernatremia Continue isotonic solution Nephrology on board --Bilateral lower extremity DVT, chronic Consulted vascular surgeon for consideration of IVC filter placement. As per vascular surgery, patient is not a good candidate for IVC filter pl acement INR 2.74. GI recommended to treat with aspirin only --Diabetes type II Accu-Chek sliding scale coverage ADA diet Insulin as needed --Ongoing tobacco use; Smoking cessation counseling Nicotine patch as needed --EPIXTASIS --DVT prophylaxis, Anticoagulation --full code status Bedside swallow eval versus speech therapy swallow eval Patient is stable to be transferred out of ICU to medical floor. Physical therapy occupational therapy The high probability of a clinically significant, sudden or life threatening deterioration of the [[employer] TECHNICIAN, CVS, respiratory, renal, GI] system(s) required my full and direct attention, intervention and personal management. The aggregate critical care time was [35] minutes. This time is in addition to time spent performing reported procedures but includes the following: [x] Data Review and interpretation [x] Patient assessment and monitoring of vital signs [x] Documentation [x] Medication orders and management Plan of care reviewed with the patient and her nurse Brief History; 64 YO Female with HTN, DM, Anemia, PVD, Nicotine Dependence, positive coronavirus test recently at [facility] presented to the emergency room for further evaluation. Patient states that she has experienced subjective fever, generalized weakness, body aches, shortness of breath, nausea, multiple loose stools, lower extremity edema over the past 1 week with progressively worsening symptoms over the past 3 to 4 days prior to presentation. Here, patient found to be hypotensive with a systolic blood pressure ranging from 53-94. Patient was also hypothermic with a body temperature of 93.3 F. Patient met criteria for sepsis protocol and found to have bilateral pneumonia, metabolic acidosis, acute kidney injury. Patient admitted to telemetry due to increased risk of multisystem decompensation. Patient initiated on coronavirus protocol. Coronavirus PCR has been ordered, Patient remained hypotensive in spite of IV fluid resuscitation therapy. Patient subsequently upgraded to IMCU. Her repeat COVID-19 test was positive. She was treated with dexamethasone daily for 10 days. Remdesivir could not be given because of worsening renal function. Did receive convalescent plasma. Patient was downgraded to MedSurg. Patient did have on and off delirium recovering restrain. But she was clinically improving and was planning for discharge. On 09/17 morning she developed cardiorespiratory arrest following a coffee-ground emesis. Patient was intubated and transferred to ICU, critical care was consulted, placed on pressor support for hypotension. Family updated and wanted to continue aggressive care. s/p extubation today. daily course: 09/03. While in the ER, patient had an ultrasound Doppler performed that showed bilateral DVT involving the iliac veins. Patient was started on heparin drip. ID consulted for COVID-19 and nephrology consulted for DIRK. Patient seen and examined at bedside this morning. She has no complaints this morning. Her hemoglobin dropped to 6.4 this morning. Patient will get transfused 1 unit of PRBCs. Later this p.m., was notified by nurse that patient is having tarry dark stool and hematemesis. Heparin drip discontinued. Patient started on PPI drip and made n.p.o. GI is has been consulted. Patient will need to have an upper endoscopy. She has bilateral lower extremity DVT and will need vascular surgery evaluation to determine if she is a candidate for IVC filter placement. 09/04. Patient seen and examined at bedside this morning. Labs reviewed showed hemoglobin 5.3. Patient will receive 2 units PRBCs. FFP also ordered. GI evaluation pending. Continue PPIs. Vascular surgeon to see to determine if patient is a candidate for IVC filter placement for DVT. 09/05. Hb stable this morning. GI on board. On PPI drip. 09/06. Gastroenterology and vascular surgery recommendations reviewed. Patient not a good candidate for IVC filter placement due to location of the clot/thrombosis. Plan is for patient to have anticoagulation on while monitoring hemoglobin. Patient's INR is more than 2 at this time so we will hold anticoagulation for now and monitor hemoglobin. Plan to initiate anticoagulation when INR is less than 2. We will preferably use heparin products as she has a high chance of bleeding. Continue to monitor hemoglobin. Hb 7.3 this a.m. 09/07. Hemoglobin 8.2 this AM. No clear signs of GI bleed. Her INR is 2.74. No need for initiation of AC for now as she INR is already therapeutic. Plan is to monitor for bleeding and if she remains stable, she will be started on anticoagulation for her bilateral DVT. Vascular surgery following-patient not a candidate for IVC catheter placement. GI recommendations appreciated 09/08: Patient is nonreactive to COVID-19 antibody, per ID order for convalescent plasma. Continue supportive care, follow clinically 09/09: Pending convalescent plasma transfusion, continue to follow inflammatory markers. Monitor H&H. Plan to start on aspirin tomorrow if INR and H&H stable 09/10: hb dropped to 6.8, transfuse one unit, discussed with GI - no plan for endoscopy now, cont to follow clinically 09/11: patient didn't get transfusion yesterday. became very agitated today, ord ered as needed haldol, cont iv fluid. monitor clinically 09/12: placed on restrain o/n. cont supportive care, lost IV line - ordered for midline. pending PRBC transfusion 09/13: monitor h/h, patient more clam today, continue supportive care, follow BMP - Na and Cr has been improving 09/14: cont to monitor, follow BMP, follow h/h. oral intake improved per RN 09/15: If h/h stable and Cr cont to improves will d/c in a day or two 09/16; spoke with daughter and updated her with patient's clinical condition. family willing to accept the patient tomorrow. RN reported some Nose bleeding earlier today, but now resolved. repeat h/h stable 09/17: had respiratory/cardiac arrest this am. patient transferred to ICU. updated family. will get CT head, patient now intubated, start on bicarbonate drip 09/18; remains unresponsive, NG tube placed and noted bolld from the NG tube, discussed with GI - recommended PRBC/FFP transfusion. patient remains unresponsive w/o sedation and intubated. Called daughter and updated. 09/19: - Patient had OG tube with initial bloody secretions on insertion but currently with dark greenish output. No active bloody output from the OG tube. Rectal tube with dark greenish bilious output. No clear signs of active on-going GI bleeding. Off levophed. Continue to monitor H&H, transfuse as needed. Patient remains unresponsive without any sedation. Poor prognosis which I discussed with the family 09/20: cont supportive care, wean off vent as tolerated. Updated family by phone 09/21: s/p extubation today. Continue to assess mental status. Continue s upportive care. We will stop the bicarbonate drip and start sodium bicarbonate with feeding tube. We will continue half-normal saline for now and monitor BMP daily, ordered speech eval. 09/22; patient was extubated yesterday, today doing well on nasal cannula oxygen, will request for swallow eval, and ordered diet as tolerated Will downgrade her to medical floor, she is still agitated will renew her restraints. Closely monitor DC planning per case management 09/23: Recurrent nosebleed. Rhino Rocket placed in the left nare. Afrin ordered twice daily. Aspiration precautions at this time. No worsening oxygen demand. Will monitor for additional 24 hours. Discharge planning from them. Discussed with nurses at bedside and also with patient. SCDs for DVT prophylaxis discontinue chemical chemoprophylaxis. 09/24: No further bleeding, possible Rhino rocket was replaced as it looks d ifferent, continue Afrin, MONITOR H/H and PLT. 09/25: Clinically stable continue Afrin nose packing is out. Will reevaluate swallowing. Awaiting for cardiology clearance for possible PEG if continues to fail swallowing evaluation. Encourage movement as much as possible due to risk of dvt development. discussed with family 09/26; Continue supportive care, no further bleeding reported. will keep NPO midnight monday to monday for possible PEG placement patient still failed swallo w evaluation per speech re-evaluation 'Received a repeat order for an evaluation. Patient was assessed on 09/23/20. NPO was recommended at the time due to her inability to participate and poor swallowing ability. Patient is unchanged from two days prior and is not appropriate for po consumption. She holds the bolus in the oral cavity and fails to initiate a swallow which places her at risk for aspiration. PEG placement is recommended for this patient. No further recommendations.' Due to labile BP will add patch of clonidine. 09/27: BP stable. Await reevaluation by speech and possible PEG placement prior to discharge. 09/28: Patient will need PEG placement patient still hypercoagulable with increased INR greater than 2 will give vitamin K and FFP and anticipate PEG placement tomorrow prior to discharge to SNF. History Interval history: Patient seen and examined this morning, no worsening shortness of breath. No further nose bleed Hospitalist Physical - Physical exam Narrative exam: General appearance: Present: no acute distress, well-nourished, chronically ill- appearing - EENT Eyes: Present: PERRL, EOM intact, rhino rocket inplace. - Neck Neck: Present: supple, normal ROM - Respiratory Respiratory effort: normal Respiratory: bilateral: diminished, rhonchi, negative: rales, wheezing - Cardiovascular Rhythm: regular Heart Sounds: Present: S1 & S2 - Extremities Extremities: no ischemia, No edema - Abdominal General gastrointestinal: soft, non-tender, non-distended, normal bowel sounds - Integumentary Integumentary: Present: clear, warm - Psychiatric Psychiatric: appropriate mood/affect, cooperative - Neurologic Neurologic: moves all extremities - Patient Problems - Constitutional Vitals: Temp Pulse Resp BP Pulse Ox 98.8 F 90 18 163/66 98 09/28/20 03:37 09/28/20 03:37 09/28/20 03:37 09/28/20 03:37 09/28/20 03:37 General appearance: Present: no acute distress, well-nourished Results - Labs CBC & Chem 7: 09/27/20 15:21 09/28/20 05:23 Labs: Laboratory Last Values WBC 10.1 K/mm3 (4.5-11.0) 09/27/20 15:21 RBC 3.01 M/mm3 (3.65-5.03) L 09/27/20 15:21 Hgb 8.6 gm/dl (10.1-14.3) L 09/27/20 15:21 Hct 25.9 % (30.3-42.9) L 09/27/20 15:21 MCV 86 fl (79-97) 09/27/20 15:21 MCH 29 pg (28-32) 09/27/20 15:21 MCHC 33 % (30-34) 09/27/20 15:21 RDW 17.6 % (13.2-15.2) H 09/27/20 15:21 Plt Count 114 K/mm3 (140-440) L 09/27/20 15:21 Lymph % (Auto) Last Sorter 09/22/20 08:00 [place] % (Auto) Last Sorter 09/22/20 08:00 Eos % (Auto) Last Sorter 09/22/20 08:00 Baso % (Auto) Last Sorter 09/22/20 08:00 Lymph # (Auto) Last Sorter 09/22/20 08:00 [place] # (Auto) Last Sorter 09/22/20 08:00 Eos # (Auto) 0.0 K/mm3 (0.0-0.4) 09/08/20 05:18 Baso # (Auto) 0.0 K/mm3 (0.0-0.1) 09/08/20 05:18 Add Manual Diff Complete 09/27/20 15:21 Total Counted 100 09/27/20 15:21 Seg Neutrophils % Last Sorter 09/22/20 08:00 Seg Neuts % (Manual) 88.0 % (40.0-70.0) H 09/27/20 15:21 Band Neutrophils % 1.0 % 09/27/20 15:21 Lymphocytes % (Manual) 4.0 % (13.4-35.0) L 09/27/20 15:21 Reactive Lymphs % (Man) 0 % 09/27/20 15:21 Monocytes % (Manual) 5.0 % (0.0-7.3) 09/27/20 15:21 Eosinophils % (Manual) 0 % (0.0-4.3) 09/27/20 15:21 Basophils % (Manual) 0 % (0.0-1.8) 09/27/20 15:21 Metamyelocytes % 2.0 % 09/27/20 15:21 Myelocytes % 0 % 09/27/20 15:21 Promyelocytes % 0 % 09/27/20 15:21 Blast Cells % 0 % 09/27/20 15:21 Nucleated RBC % Not Reportable 09/27/20 15:21 Seg Neutrophils # 9.5 K/mm3 (1.8-7.7) H 09/08/20 05:18 Seg Neutrophils # Man 8.9 K/mm3 (1.8-7.7) H 09/27/20 15:21 Band Neutrophils # 0.1 K/mm3 09/27/20 15:21 Lymphocytes # (Manual) 0.4 K/mm3 (1.2-5.4) L 09/27/20 15:21 Abs React Lymphs (Man) 0.0 K/mm3 09/27/20 15:21 Monocytes # (Manual) 0.5 K/mm3 (0.0-0.8) 09/27/20 15:21 Eosinophils # (Manual) 0.0 K/mm3 (0.0-0.4) 09/27/20 15:21 Basophils # (Manual) 0.0 K/mm3 (0.0-0.1) 09/27/20 15:21 Metamyelocytes # 0.2 K/mm3 09/27/20 15:21 Myelocytes # 0.0 K/mm3 09/27/20 15:21 Promyelocytes # 0.0 K/mm3 09/27/20 15:21 Blast Cells # 0.0 K/mm3 09/27/20 15:21 WBC Morphology Not Reportable 09/27/20 15:21 Hypersegmented Neuts Not Reportable 09/27/20 15:21 Hyposegmented Neuts Not Reportable 09/27/20 15:21 Hypogranular Neuts Not Reportable 09/27/20 15:21 Smudge Cells Not Reportable 09/27/20 15:21 Toxic Granulation Not Reportable 09/27/20 15:21 Toxic Vacuolation Not Reportable 09/27/20 15:21 Dohle Bodies Not Reportable 09/27/20 15:21 Pelger-Huet Anomaly Not Reportable 09/27/20 15:21 Ignacia Rods Not Reportable 11/29/20 15:21 Platelet Estimate Consistent w auto 09/27/20 15:21 Clumped Platelets Not Reportable 09/27/20 15:21 Plt Clumps, EDTA Not Reportable 09/27/20 15:21 Large Platelets Not Reportable 09/27/20 15:21 Giant Platelets Not Reportable 09/27/20 15:21 Platelet Satelliting Not Reportable 09/27/20 15:21 Plt Morphology Comment Not Reportable 09/27/20 15:21 RBC Morphology Not Reportable 09/27/20 15:21 Dimorphic RBCs Not Reportable 09/27/20 15:21 Polychromasia Not Reportable 09/27/20 15:21 Hypochromasia Few 09/27/20 15:21 Poikilocytosis Few 09/27/20 15:21 Anisocytosis Not Reportable 09/27/20 15:21 Microcytosis Not Reportable 09/27/20 15:21 Macrocytosis Not Reportable 09/27/20 15:21 Spherocytes Not Reportable 09/27/20 15:21 Pappenheimer Bodies Not Reportable 09/27/20 15:21 Sickle Cells Not Reportable 09/27/20 15:21 Target Cells Not Reportable 09/27/20 15:21 Tear Drop Cells Rare 09/27/20 15:21 Ovalocytes Not Reportable 09/27/20 15:21 Helmet Cells Rare 09/27/20 15:21 Horvath-Odin Bodies Not Reportable 09/27/20 15:21 [place] Rings Not Reportable 09/27/20 15:21 [place] Cells Rare 09/27/20 15:21 Bite Cells Not Reportable 09/27/20 15:21 Crenated Cell Not Reportable 09/27/20 15:21 Elliptocytes Not Reportable 09/27/20 15:21 Acanthocytes (Spur) Rare 09/27/20 15:21 Rouleaux Not Reportable 09/27/20 15:21 Hemoglobin C Crystals Not Reportable 09/27/20 15:21 Schistocytes Not Reportable 09/27/20 15:21 Malaria parasites Not Reportable 09/27/20 15:21 Molina Bodies Not Reportable 09/27/20 15:21 Hem Pathologist Commnt No 09/27/20 15:21 PT 29.0 Sec. (12.2-14.9) H 09/27/20 15:21 INR 2.73 (0.87-1.13) H 09/27/20 15:21 APTT 29.2 Sec. (24.2-36.6) 09/02/20 13:52 D-Dimer 1076.18 ng/mlDDU (0-234) H 09/01/20 21:55 Heparin Anti-Xa Level 0.94 U.I./ml (0.3-0.7) H 09/03/20 05:17 ABG pH 7.441 (7.320-7.450) 09/21/20 03:25 POC ABG pCO2 28.2 mmHg (32.0-48.0) L 09/21/20 03:25 POC ABG pO2 112.5 mmHg (83-108) H 09/21/20 03:25 POC ABG HCO3 18.8 09/21/20 03:25 POC ABG Base Excess -4.5 09/21/20 03:25 ABG Hemoglobin 9.4 (12.0-17.5) L 09/21/20 03:25 ABG Sodium 136.3 mmol/L (136.0-145.0) 09/21/20 03:25 ABG Potassium 4.4 mmol/L (3.40-4.50) 09/21/20 03:25 ABG Chloride 110.0 mmol/L (98-107) H 09/21/20 03:25 ABG Glucose 163 mg/dL (65-95) H 09/21/20 03:25 FiO2 40.0 09/21/20 03:25 Sodium 142 mmol/L (137-145) 09/28/20 05:23 Potassium 4.0 mmol/L (3.6-5.0) 09/28/20 05:23 Chloride 107.9 mmol/L (98-107) H 09/28/20 05:23 Carbon Dioxide 24 mmol/L (22-30) 09/28/20 05:23 Anion Gap 14 mmol/L 09/28/20 05:23 BUN 39 mg/dL (7-17) H 09/28/20 05:23 Creatinine 1.7 mg/dL (0.6-1.2) H 09/28/20 05:23 Estimated GFR 37 ml/min 09/28/20 05:23 BUN/Creatinine Ratio 23 % 09/28/20 05:23 Glucose 195 mg/dL (65-100) H 09/28/20 05:23 POC Glucose 174 mg/dL (70-105) H 09/28/20 05:17 Lactic Acid 0.60 mmol/L (0.7-2.0) L 09/02/20 08:10 Calcium 7.7 mg/dL (8.4-10.2) L 09/28/20 05:23 Phosphorus 3.60 mg/dL (2.5-4.5) 09/25/20 15:25 Magnesium 2.20 mg/dL (1.7-2.3) 09/14/20 19:57 Iron 28 ug/dL (37-170) L 09/07/20 09:13 TIBC 188 mcg/dL (250-450) L 09/07/20 09:13 Ferritin 313.5 ng/mL (10.0-200.0) H 09/01/20 21:55 Total Bilirubin 0.70 mg/dL (0.1-1.2) 09/19/20 04:29 AST 29 units/L (5-40) 09/19/20 04:29 ALT 43 units/L (7-56) 09/19/20 04:29 Alkaline Phosphatase 185 units/L (35-129) H 09/19/20 04:29 Lactate Dehydrogenase 435 units/L (91-180) H 09/01/20 21:55 C-Reactive Protein 2.30 mg/dL (0.00-1.30) H 09/01/20 21:55 NT-Pro-B Natriuret Pep 28779 pg/mL (0-900) H 09/01/20 21:55 Serum Total Protein 4.3 g/dL (6.1-8.1) L 09/16/20 13:44 Total Protein 4.3 g/dL (6.3-8.2) L 09/19/20 04:29 Albumin 2.1 g/dL (3.9-5) L 09/19/20 04:29 Albumin/Globulin Ratio 1.0 % 09/19/20 04:29 Vvycs-8-Idkemnszs 0.5 g/dL (0.2-0.3) H 09/16/20 13:44 Uzsbz-0-Xvervqoru 0.6 g/dL (0.5-0.9) 09/16/20 13:44 Beta Globulins 0.3 g/dL (0.2-0.5) 09/16/20 13:44 Gamma Globulins 0.8 g/dL (0.8-1.7) 09/16/20 13:44 Abnorm Protein Band 1 see below 09/16/20 13:44 PEP Interpretation see below H 09/16/20 13:44 Vitamin B12 843.2 pg/mL (211-911) 09/07/20 09:13 Procalcitonin 0.10 ng/mL (<0.15) 09/01/20 21:55 TSH 0.735 mlU/mL (0.270-4.200) 09/02/20 00:45 Free T4 0.92 ng/dL (0.76-1.46) 09/02/20 00:45 Free T4 0.94 ng/dL (0.76-1.46) 09/02/20 00:45 PTH Intact 820.4 pg/mL (15-65) H 09/04/20 05:18 Arterial Blood Glucose 163 mg/dL (65-95) H 09/21/20 03:25 Arterial Blood Ionized Calcium 4.7 mg/dL (4.6-5.3) 09/21/20 03:25 Urine Color Elena (Yellow) 09/02/20 03:44 Urine Turbidity Cloudy (Clear) 09/02/20 03:44 Urine pH 7.0 (5.0-7.0) 09/02/20 03:44 Ur Specific [place] 1.015 (1.003-1.030) 09/02/20 03:44 Urine Protein >500 mg/dL (Negative) 09/02/20 03:44 Urine Glucose (UA) Neg mg/dL (Negative) 09/02/20 03:44 Urine Ketones Neg mg/dL (Negative) 09/02/20 03:44 Urine Blood Neg (Negative) 09/02/20 03:44 Urine Nitrite Neg (Negative) 09/02/20 03:44 Urine Bilirubin Neg (Negative) 09/02/20 03:44 Urine Urobilinogen < 2.0 mg/dL (<2.0) 09/02/20 03:44 Ur Leukocyte Esterase Neg (Negative) 09/02/20 03:44 Urine WBC (Auto) < 1.0 /HPF (0.0-6.0) 09/02/20 03:44 Urine RBC (Auto) < 1.0 /HPF (0.0-6.0) 09/02/20 03:44 U Epithel Cells (Auto) < 1.0 /HPF (0-13.0) 09/02/20 03:44 Urine Bacteria (Auto) 2+ /HPF (Negative) 09/02/20 03:44 Urine Mucus Few /HPF 09/02/20 03:44 Urine Creatinine 43.2 mg/dL (0.1-20.0) H 09/06/20 06:52 Protein/Creatinin Ratio 6.90 09/06/20 06:52 Urine Sodium 84 mmol/L 09/06/20 06:52 Urine Total Protein 298 mg/dL (5-11.8) H 09/06/20 06:52 DEMARCUS Screen Negative (Negative) 09/17/20 00:10 Proteinase 3 (PR3) Ab <1.0 AI (<1.0) 09/17/20 00:10 Myeloperoxidase Ab <1.0 AI (<1.0) 09/17/20 00:10 Glomerular Base Mem IgG See scanned result 09/16/20 13:44 Complement C3 82 mg/dL (83-193) L 09/17/20 00:10 Complement C4 26 mg/dL (15-57) 09/17/20 00:10 C. difficile Tox (PCR) Negative (Negative) 09/02/20 13:05 Coronavirus (PCR) Positive (Negative) A 09/17/20 Unknown SARS-CoV-2 IgG Ab Nonreactive (NonReactive) 09/02/20 08:10 Blood Type O POSITIVE 09/17/20 13:49 Antibody Screen Negative 09/17/20 13:49 Crossmatch See Detail 09/17/20 13:49 - Diagnostic Impressions Diagnostic Impressions: Echocardiogram 09/22/20 13:29 Transthoracic Echocardiogram Indication: Cardiopulmonary arrest BP: 175/66 HR: 71 Conclusions *4-chamber dilated cardiomyopathy. *Global left ventricular systolic function is mildly decreased. *The estimated ejection fraction is 40-45%. *Mild concentric left ventricular hypertrophy is observed. *There is mild to moderate mitral regurgitation. *There is mild to moderate tricuspid regurgitation. *There is moderately-severe pulmonary hypertension. *The right ventricular systolic pressure is calculated at 62 mmHg. *There is a minimial pericardial effusion. Findings Left Ventricle: The left ventricular chamber size is mildly dilated. Mild concentric left ventricular hypertrophy is observed. Global left ventricular systolic function is mildly decreased. The estimated ejection fraction is 40-45%. Left Atrium: The left atrium is moderately dilated. Right Ventricle: The right ventricle is mildly dilated. The right ventricular global systolic function is mildly reduced. Right Atrium: The right atrium is moderately dilated. Aortic Valve: The aortic valve is trileaflet. The aortic valve leaflets are moderately thickened. There is no evidence of aortic regurgitation. There is no evidence of aortic stenosis. Mitral Valve: The mitral valve leaflets are mildly thickened. There is mild to moderate mitral regurgitation. There is no evidence of mitral stenosis. Tricuspid Valve: The tricuspid valve leaflets are normal. There is mild to moderate tricuspid regurgitation. The right ventricular systolic pressure is calculated at 62 mmHg. There is evidence of severe pulmonary hypertension. Pulmonic Valve: There is mild pulmonic regurgitation. Pericardium: There is a minimial pericardial effusion. Aorta: There is no dilatation of the ascending aorta. There is no dilatation of the aortic root. Venous: The inferior vena cava is dilated. Measurements Chambers 2D Name Value Normal Range IVSd (2D) 1.17 cm (0.6 - 1.1) LVPWd (2D) 1.15 cm (0.6 - 1.1) IVS:LVPW ratio (2D) 1.02 ratio - LVIDd (2D) 5 cm (3.7 - 5.6) LVIDs (2D) 3.71 cm (2 - 3.8) LV FS (Teichholz) (2D) 25.8 % - LV FS (cube) (2D) 25.8 % - EF Teichholz (2D) 50.4 % - Ao root diameter (2D) 2.6 cm (2 - 3.7) LA dimension (AP) 2D 5.1 cm (1.9 - 4) LA:Ao ratio (2D) 1.96 ratio - Volumes/Mass Name Value Normal Range LA ESV SP 4CH (MOD) 49 ml - LA ESV SP 2CH (MOD) 96 ml - LA ESV BP (MOD) 69 ml - LA ESV BP (MOD) index 33.2 ml/m2 - Diastolic/Systolic Function Name Value Normal Range MV E-wave Vmax 1.21 m/sec - MV deceleration time 254 msec - MV A-wave Vmax 1.12 m/sec - MV E:A ratio 1.1 ratio - Aortic Valve Name Value Normal Range AV VTI 31.1 cm - AV mean gradient 4 mmHg - LVOT diameter 2 cm - LVOT VTI 19.4 cm - LVOT mean gradient 2 mmHg - Mitral Valve Name Value Normal Range MV Vmax 1.44 m/sec - MV VTI 35.9 cm - MV peak gradient 8 mmHg - MV mean gradient 5 mmHg - MR Vmax 5.52 m/sec - Tricuspid Valve Name Value Normal Range TR Vmax 3.52 m/sec - TR peak gradient 50 mmHg - RVSP 62 mmHg - [place]/IV: Voiding Method Indwelling Catheter IV Catheter Type [Left Upper PICC Line arm] IV Catheter Type [Right INT / Saline Lock Forearm] IV Catheter Type [Left INT / Saline Lock Antecubital] IV Catheter Type [Right Hand] INT / Saline Lock IV Catheter Type [Right Upper Mid-line arm] IV Catheter Type [Right INT / Saline Lock External Jugular] Active Medications - Current Medications Current Medications: Generic Name Dose Route Start Last Admin Trade Name Freq PRN Reason Stop Dose Admin Acetaminophen 650 mg 09/02/20 00:30 09/05/20 22:50 Tylenol PO 650 mg Q6H PRN Administration Pain, Mild (1-3) Amlodipine Besylate 10 mg 09/21/20 12:00 09/28/20 10:03 Amlodipine PO Not Given DAILY JAE Calcitriol 0.5 mcg 09/05/20 13:00 09/28/20 10:04 Rocaltrol PO Not Given QDAY JAE Clonidine HCl 0.1 mg 09/26/20 10:00 09/26/20 11:44 Catapres-Tts Patch TD 0.1 mg Sa JAE Administration Dextrose 50 ml 09/11/20 19:09 09/27/20 05:59 D50w (25gm) Syringe IV 50 ml Q30MIN PRN Administration Hypoglycemia Protocol Ferrous Sulfate 308 mg 09/21/20 10:00 09/28/20 10:04 Ferrous Sulfate FEEDTUBE Not Given DAILY JAE Haloperidol Lactate 5 mg 09/11/20 19:10 Haldol IM Q6H PRN Agitation Hydralazine HCl 10 mg 09/10/20 22:23 09/14/20 05:46 Apresoline IV 10 mg Q6H PRN Administration Blood Pressure Sodium Bicarbonate 50 meq/ 1,050 mls @ 50 mls/hr 09/24/20 15:00 09/27/20 22:27 Dextrose IV 75 mls/hr DIRECT JAE Administration Insulin Human Lispro 0 unit 09/19/20 12:00 09/28/20 05:27 Humalog SUB-Q Not Given Q6HR [facility] Protocol Multivitamins 5 ml 09/18/20 10:00 09/28/20 10:03 Centrum Liq PO Not Given QDAY JAE Pantoprazole Sodium 40 mg 09/22/20 10:00 09/28/20 10:04 Protonix IV Not Given BID JAE Phytonadione 10 mg 09/28/20 08:30 09/28/20 09:55 Vitamin K (Adult Only) SUB-Q 09/28/20 12:00 10 mg ONCE@0830 NR Administration Potassium Bicarbonate 50 meq 09/10/20 22:00 09/28/20 10:04 Klor-Con PO Not Given BID JAE Sertraline HCl 50 mg 09/02/20 10:00 09/28/20 10:05 Zoloft PO Not Given DAILY JAE Sodium Chloride 10 ml 09/02/20 10:00 09/27/20 22:21 Sodium Chloride Flush Syringe 10 Ml IV 10 ml BID JAE Administration Sodium Chloride 10 ml 09/02/20 00:30 Sodium Chloride Flush Syringe 10 Ml IV PRN PRN LINE FLUSH Nutrition/Malnutrition Assess - Dietary Evaluation Nutrition/Malnutrition Findings: Nutrition Notes Start: 09/03/20 13:19 Freq: Status: Active Protocol: Document 09/28/20 09:33 LM (Rec: 09/28/20 09:43 LM [id number]) Nutrition Notes Initial or Follow up Reassessment Current Diagnosis Acute Kidney Injury,CKD(stage I-IV),Diabetes Other Pertinent Diagnosis COVID-19 (+), pneu, anemia, bilat BKA, erosive esophagitis Current Diet NPO Labs/Tests BUN 39 Cr 1.7 BG 195 Pertinent Medications Reviewed Height 5 ft 6 in Weight 103 kg [place] Body Weight (kg) 59.09 BMI 36.6 Weight Status Obese Subjective/Other Information [employer] recommends PEG. Per reports pt to get PEG today depending on INR and platelets . Percent of energy/protein needs met: 0%/0% Burn Absent Trauma Absent Difficulty In Swallowing Current % PO Negligible Minimum of two criteria No physical signs of malnutrition #2 Nutrition Diagnosis Increased nutrient needs ( specify in comment below) Diagnosis Progress(for reassessment Continues documentation) #1 Nutrition Diagnosis Inadequate oral intake Diagnosis Progress(for reassessment Continues documentation) Is patient on ventilator? No Is Patient Ambulatory and/or Out of Bed No REE-([facility]-confined to bed) 1926.912 Kcal/Kg value to use for calculation 16 Approximate Energy Requirements Using 1648 kcal/Kg Calculation Used for Recommendations Kcal/kg Additional Notes Protein: 65-122g (0.8-1.5g/kg using AdjBW 81kg) Fluid: 1ml/kcal Nutrition Intervention Change Diet Order: TF Nutrition Support: Nepro at 40ml/hr Flush with 150ml q4h Kcal 1,728 Protein (gm) 78 Fluid (mL) 698 Goal #1 Start TF when medically feasible Anticipated Discharge Needs: TF Follow-Up By: 09/30/20 Additional Comments F/U for PEG placement, TF consult
--- NOTE | 2020-09-28 12:48 | Progress Note ---
Assessment and Plan 1. Acute kidney injury: DIRK secondary to combination of Vasomotor nephropathy and severe sepsis. Renal US negative for hydro. Monitor renal function, improving. Prior Creatinine was 1.2 in 2014. Likely CKD stage 4. Renal prognosis is guarded. Avoid nephrotoxic agents. Meds dosage based on GFR. 2. FEN: Hyperchloremic Metabolic acidosis, on Potassium bicarbonate, monitor. Sod bicarb drip. Hypernatremia, improved, monitor. Monitor lytes. 3. Nephrotic syndrome: Likely diabetic nephropathy. DEMARCUS, ANCA and GBM Ab are negative. Complements appears normal. SPE; too small of M spike. 4. Severe sepsis, POA, now with shock: Off pressors. 5. S/p Cardiac arrest. 6. Severe COVID infection: Seen by ID. 7. Acute hypoxic resp failure: Intubated post-arrest. S/p extubated. 8. Bilateral LE DVT, POA. 9. Microcytic anemia, POA: S/p PRBC. Monitor. Seen by GI. 10. Thrombocytopenia, POA. 11. Acute diarrhea: Likely associated with COVID-19 infection. C. difficile test negative. Subjective: Patient was seen and examined at the bedside. Examination: General appearance: well-developed, appears stated age, no distress, restrains HEENT: JAYCE Neck: Trachea midline Respiratory: ctab Cardiology: regular, S1S2, no murmur Gastrointestinal: normoactive bowel sounds, no tenderness, not distended Integumentary: no obvious rash Neurologic: alert, oriented to self, moving extremities Ext: trace dependent edema, b/l BKA : Magaña catheter Subjective Date of service: 09/28/20 Principal diagnosis: Iron Def Anemia Objective - Vital Signs Vital signs: Vital Signs - 12hr 09/28/20 03:37 Temperature 98.8 F Pulse Rate 90 Respiratory 18 Rate Blood Pressure 163/66 O2 Sat by Pulse 98 Oximetry - Lab 09/27/20 15:21 09/28/20 05:23 Most recent lab results ABG pH 7.441 (7.320-7.450) 09/21/20 03:25 Calcium 7.7 mg/dL (8.4-10.2) L 09/28/20 05:23 Phosphorus 3.60 mg/dL (2.5-4.5) 09/25/20 15:25 Magnesium 2.20 mg/dL (1.7-2.3) 09/14/20 19:57 Urine Creatinine 43.2 mg/dL (0.1-20.0) H 09/06/20 06:52 Urine Sodium 84 mmol/L 09/06/20 06:52 Urine Total Protein 298 mg/dL (5-11.8) H 09/06/20 06:52 Medications & Allergies - Medications Allergies/Adverse Reactions: Allergies No Known Allergies Allergy (Unverified 02/14/14 19:23) Home Medications: Home Medications Medication Instructions Recorded Confirmed Last Taken Type Aspirin [[place] Aspirin] 81 mg PO DAILY 02/14/14 02/22/14 02/14/14 11:00 History Ferrous Sulfate [Feosol 325mg] 325 mg PO DAILY 02/14/14 02/22/14 02/14/14 11:00 History Sertraline [Zoloft] 50 mg PO DAILY 02/14/14 02/22/14 02/14/14 11:00 History amLODIPine 5 mg PO DAILY 02/14/14 02/22/14 02/14/14 11:00 History hydroCHLOROthiazide 25 mg PO DAILY 02/14/14 02/22/14 02/14/14 11:00 History [Hydrochlorothiazide] Aspirin EC [Ecotrin] 325 mg PO QDAY #60 tablet 09/17/20 Unknown Rx Insulin Glargine [Lantus VIAL] 14 units SUB-Q QHS 30 Days 09/17/20 Unknown Rx Pantoprazole [Protonix TAB] 40 mg PO BIDAC #60 tablet 09/17/20 Unknown Rx calcitrioL [Rocaltrol] 0.5 mcg PO QDAY #30 capsule 09/17/20 Unknown Rx metOLazone [Zaroxolyn] 10 mg PO QDAY #30 tablet 09/17/20 Unknown Rx Active Medications: Generic Name Dose Route Start Last Admin Trade Name Freq PRN Reason Stop Dose Admin Acetaminophen 650 mg 09/02/20 00:30 09/05/20 22:50 Tylenol PO 650 mg Q6H PRN Administration Pain, Mild (1-3) Amlodipine Besylate 10 mg 09/21/20 12:00 09/28/20 10:03 Amlodipine PO Not Given DAILY JAE Calcitriol 0.5 mcg 09/05/20 13:00 09/28/20 10:04 Rocaltrol PO Not Given QDAY JAE Clonidine HCl 0.1 mg 09/26/20 10:00 09/26/20 11:44 Catapres-Tts Patch TD 0.1 mg Sa JAE Administration Dextrose 50 ml 09/11/20 19:09 09/27/20 05:59 D50w (25gm) Syringe IV 50 ml Q30MIN PRN Administration Hypoglycemia Protocol Ferrous Sulfate 308 mg 09/21/20 10:00 09/28/20 10:04 Ferrous Sulfate FEEDTUBE Not Given DAILY JEA Haloperidol Lactate 5 mg 09/11/20 19:10 Haldol IM Q6H PRN Agitation Hydralazine HCl 10 mg 09/10/20 22:23 09/14/20 05:46 Apresoline IV 10 mg Q6H PRN Administration Blood Pressure Sodium Bicarbonate 50 meq/ 1,050 mls @ 50 mls/hr 09/24/20 15:00 09/27/20 22 :27 Dextrose IV 75 mls/hr DIRECT JAE Administration Insulin Human Lispro 0 unit 09/19/20 12:00 09/28/20 05:27 Humalog SUB-Q Not Given Q6HR JAE Protocol Multivitamins 5 ml 09/18/20 10:00 09/28/20 10:03 Centrum Liq PO Not Given QDAY JAE Pantoprazole Sodium 40 mg 09/22/20 10:00 09/28/20 10:04 Protonix IV Not Given BID JAE Potassium Bicarbonate 50 meq 09/10/20 22:00 09/28/20 10:04 Klor-Con PO Not Given BID JAE Sertraline HCl 50 mg 09/02/20 10:00 09/28/20 10:05 Zoloft PO Not Given DAILY JAE Sodium Chloride 10 ml 09/02/20 10:00 09/27/20 22:21 Sodium Chloride Flush Syringe 10 Ml IV 10 ml BID JAE Administration Sodium Chloride 10 ml 09/02/20 00:30 Sodium Chloride Flush Syringe 10 Ml IV PRN PRN LINE FLUSH
[2020-09-29] MEDS: INSULIN LISPRO 100 UNIT/ML VIAL 3 mL SUB-Q SCH ×4 (00:50→18:40)
--- NOTE | 2020-09-29 06:46 | Progress Note ---
Hospitalist Physical - Constitutional Vitals: Temp Pulse Resp BP Pulse Ox 97.5 F L 73 16 174/78 98 09/29/20 04:19 09/29/20 04:19 09/29/20 04:19 09/29/20 04:19 09/29/20 04:19 General appearance: Present: no acute distress, well-nourished Results - Labs CBC & Chem 7: 09/27/20 15:21 09/28/20 05:23 Labs: Laboratory Last Values WBC 10.1 K/mm3 (4.5-11.0) 09/27/20 15:21 RBC 3.01 M/mm3 (3.65-5.03) L 09/27/20 15:21 Hgb 8.6 gm/dl (10.1-14.3) L 09/27/20 15:21 Hct 25.9 % (30.3-42.9) L 09/27/20 15:21 MCV 86 fl (79-97) 09/27/20 15:21 MCH 29 pg (28-32) 09/27/20 15:21 MCHC 33 % (30-34) 09/27/20 15:21 RDW 17.6 % (13.2-15.2) H 09/27/20 15:21 Plt Count 114 K/mm3 (140-440) L 09/27/20 15:21 Lymph % (Auto) Sheeter Machine Operator 09/22/20 08:00 [place] % (Auto) Sheeter Machine Operator 09/22/20 08:00 Eos % (Auto) Sheeter Machine Operator 09/22/20 08:00 Baso % (Auto) Sheeter Machine Operator 09/22/20 08:00 Lymph # (Auto) Sheeter Machine Operator 09/22/20 08:00 [place] # (Auto) Sheeter Machine Operator 09/22/20 08:00 Eos # (Auto) 0.0 K/mm3 (0.0-0.4) 09/08/20 05:18 Baso # (Auto) 0.0 K/mm3 (0.0-0.1) 09/08/20 05:18 Add Manual Diff Complete 09/27/20 15:21 Total Counted 100 09/27/20 15:21 Seg Neutrophils % Sheeter Machine Operator 09/22/20 08:00 Seg Neuts % (Manual) 88.0 % (40.0-70.0) H 09/27/20 15:21 Band Neutrophils % 1.0 % 09/27/20 15:21 Lymphocytes % (Manual) 4.0 % (13.4-35.0) L 09/27/20 15:21 Reactive Lymphs % (Man) 0 % 09/27/20 15:21 Monocytes % (Manual) 5.0 % (0.0-7.3) 09/27/20 15:21 Eosinophils % (Manual) 0 % (0.0-4.3) 09/27/20 15:21 Basophils % (Manual) 0 % (0.0-1.8) 09/27/20 15:21 Metamyelocytes % 2.0 % 09/27/20 15:21 Myelocytes % 0 % 09/27/20 15: Promyelocytes % 0 % 09/27/20 15:21 Blast Cells % 0 % 09/27/20 15:21 Nucleated RBC % Not Reportable 09/27/20 15:21 Seg Neutrophils # 9.5 K/mm3 (1.8-7.7) H 09/08/20 05:18 Seg Neutrophils # Man 8.9 K/mm3 (1.8-7.7) H 09/27/20 15:21 Band Neutrophils # 0.1 K/mm3 09/27/20 15:21 Lymphocytes # (Manual) 0.4 K/mm3 (1.2-5.4) L 09/27/20 15:21 Abs React Lymphs (Man) 0.0 K/mm3 09/27/20 15:21 Monocytes # (Manual) 0.5 K/mm3 (0.0-0.8) 09/27/20 15:21 Eosinophils # (Manual) 0.0 K/mm3 (0.0-0.4) 09/27/20 15:21 Basophils # (Manual) 0.0 K/mm3 (0.0-0.1) 09/27/20 15:21 Metamyelocytes # 0.2 K/mm3 09/27/20 15:21 Myelocytes # 0.0 K/mm3 09/27/20 15:21 Promyelocytes # 0.0 K/mm3 09/27/20 15:21 Blast Cells # 0.0 K/mm3 09/27/20 15:21 WBC Morphology Not Reportable 09/27/20 15:21 Hypersegmented Neuts Not Reportable 09/27/20 15:21 Hyposegmented Neuts Not Reportable 09/27/20 15:21 Hypogranular Neuts Not Reportable 09/27/20 15:21 Smudge Cells Not Reportable 09/27/20 15:21 Toxic Granulation Not Reportable 09/27/20 15:21 Toxic Vacuolation Not Reportable 09/27/20 15:21 Dohle Bodies Not Reportable 09/27/20 15:21 Pelger-Huet Anomaly Not Reportable 09/27/20 15:21 Ignacia Rods Not Reportable 09/27/20 15:21 Platelet Estimate Consistent w auto 09/27/20 15:21 Clumped Platelets Not Reportable 09/27/20 15:21 Plt Clumps, EDTA Not Reportable 09/27/20 15:21 Large Platelets Not Reportable 09/27/20 15:21 Giant Platelets Not Reportable 09/27/20 15:21 Platelet Satelliting Not Reportable 09/27/20 15:21 Plt Morphology Comment Not Reportable 09/27/20 15:21 RBC Morphology Not Reportable 09/27/20 15:21 Dimorphic RBCs Not Reportable 09/27/20 15:21 Polychromasia Not Reportable 09/27/20 15:21 Hypochromasia Few 09/27/20 15:21 Poikilocytosis Few 09/27/20 15:21 Anisocytosis Not Reportable 09/27/20 15:21 Microcytosis Not Reportable 09/27/20 15:21 Macrocytosis Not Reportable 09/27/20 15:21 Spherocytes Not Reportable 09/27/20 15:21 Pappenheimer Bodies Not Reportable 09/27/20 15:21 Sickle Cells Not Reportable 09/27/20 15:21 Target Cells Not Reportable 09/27/20 15:21 Tear Drop Cells Rare 09/27/20 15:21 Ovalocytes Not Reportable 09/27/20 15:21 Helmet Cells Rare 09/27/20 15:21 [place] Bodies Not Reportable 09/27/20 15:21 Lillian Rings Not Reportable 09/27/20 15:21 Lincoln Cells Rare 09/27/20 15:21 Bite Cells Not Reportable 09/27/20 15:21 Crenated Cell Not Reportable 09/27/20 15:21 Elliptocytes Not Reportable 09/27/20 15:21 Acanthocytes (Spur) Rare 09/27/20 15:21 Rouleaux Not Reportable 09/27/20 15:21 Hemoglobin C Crystals Not Reportable 09/27/20 15:21 Schistocytes Not Reportable 09/27/20 15:21 Malaria parasites Not Reportable 09/27/20 15:21 Molina Bodies Not Reportable 09/27/20 15:21 Hem Pathologist Commnt No 09/27/20 15:21 PT 29.0 Sec. (12.2-14.9) H 09/27/20 15:21 INR 2.73 (0.87-1.13) H 09/27/20 15:21 APTT 29.2 Sec. (24.2-36.6) 09/02/20 13:52 D-Dimer 1076.18 ng/mlDDU (0-234) H 09/01/20 21:55 Heparin Anti-Xa Level 0.94 U.I./ml (0.3-0.7) H 09/03/20 05:17 ABG pH 7.441 (7.320-7.450) 09/21/20 03:25 POC ABG pCO2 28.2 mmHg (32.0-48.0) L 09/21/20 03:25 POC ABG pO2 112.5 mmHg (83-108) H 09/21/20 03:25 POC ABG HCO3 18.8 09/21/20 03:25 POC ABG Base Excess -4.5 09/21/20 03:25 ABG Hemoglobin 9.4 (12.0-17.5) L 09/21/20 03:25 ABG Sodium 136.3 mmol/L (136.0-145.0) 09/21/20 03:25 ABG Potassium 4.4 mmol/L (3.40-4.50) 09/21/20 03:25 ABG Chloride 110.0 mmol/L (98-107) H 09/21/20 03:25 ABG Glucose 163 mg/dL (65-95) H 09/21/20 03:25 FiO2 40.0 09/21/20 03:25 Sodium 142 mmol/L (137-145) 09/28/20 05:23 Potassium 4.0 mmol/L (3.6-5.0) 09/28/20 05:23 Chloride 107.9 mmol/L (98-107) H 09/28/20 05:23 Carbon Dioxide 24 mmol/L (22-30) 09/28/20 05:23 Anion Gap 14 mmol/L 09/28/20 05:23 BUN 39 mg/dL (7-17) H 09/28/20 05:23 Creatinine 1.7 mg/dL (0.6-1.2) H 09/28/20 05:23 Estimated GFR 37 ml/min 09/28/20 05:23 BUN/Creatinine Ratio 23 % 09/28/20 05:23 Glucose 195 mg/dL (65-100) H 09/28/20 05:23 POC Glucose 137 mg/dL (70-105) H 09/29/20 05:12 Lactic Acid 0.60 mmol/L (0.7-2.0) L 09/02/20 08:10 Calcium 7.7 mg/dL (8.4-10.2) L 09/28/20 05:23 Phosphorus 3.60 mg/dL (2.5-4.5) 09/25/20 15:25 Magnesium 2.20 mg/dL (1.7-2.3) 09/14/20 19:57 Iron 28 ug/dL (37-170) L 09/07/20 09:13 TIBC 188 mcg/dL (250-450) L 09/07/20 09:13 Ferritin 313.5 ng/mL (10.0-200.0) H 09/01/20 21:55 Total Bilirubin 0.70 mg/dL (0.1-1.2) 09/19/20 04:29 AST 29 units/L (5-40) 09/19/20 04:29 ALT 43 units/L (7-56) 09/19/20 04:29 Alkaline Phosphatase 185 units/L (35-129) H 09/19/20 04:29 Lactate Dehydrogenase 435 units/L (91-180) H 09/01/20 21:55 C-Reactive Protein 2.30 mg/dL (0.00-1.30) H 09/01/20 21:55 NT-Pro-B Natriuret Pep 51874 pg/mL (0-900) H 09/01/20 21:55 Serum Total Protein 4.3 g/dL (6.1-8.1) L 09/16/20 13:44 Total Protein 4.3 g/dL (6.3-8.2) L 09/19/20 04:29 Albumin 2.1 g/dL (3.9-5) L 09/19/20 04:29 Albumin/Globulin Ratio 1.0 % 09/19/20 04:29 Gvbbg-1-Uqqxoedup 0.5 g/dL (0.2-0.3) H 09/16/20 13:44 Tnqso-4-Tdvepfxho 0.6 g/dL (0.5-0.9) 09/16/20 13:44 Beta Globulins 0.3 g/dL (0.2-0.5) 09/16/20 13:44 Gamma Globulins 0.8 g/dL (0.8-1.7) 09/16/20 13:44 Abnorm Protein Band 1 see below 09/16/20 13:44 PEP Interpretation see below H 09/16/20 13:44 Vitamin B12 843.2 pg/mL (211-911) 09/07/20 09:13 Procalcitonin 0.10 ng/mL (<0.15) 09/01/20 21:55 TSH 0.735 mlU/mL (0.270-4.200) 09/02/20 00:45 Free T4 0.92 ng/dL (0.76-1.46) 09/02/20 00:45 Free T4 0.94 ng/dL (0.76-1.46) 09/02/20 00:45 PTH Intact 820.4 pg/mL (15-65) H 09/04/20 05:18 Arterial Blood Glucose 163 mg/dL (65-95) H 09/21/20 03:25 Arterial Blood Ionized Calcium 4.7 mg/dL (4.6-5.3) 09/21/20 03:25 Urine Color Elena (Yellow) 09/02/20 03:44 Urine Turbidity Cloudy (Clear) 09/02/20 03:44 Urine pH 7.0 (5.0-7.0) 09/02/20 03:44 Ur Specific [place] 1.015 (1.003-1.030) 09/02/20 03:44 Urine Protein >500 mg/dL (Negative) 09/02/20 03:44 Urine Glucose (UA) Neg mg/dL (Negative) 09/02/20 03:44 Urine Ketones Neg mg/dL (Negative) 09/02/20 03:44 Urine Blood Neg (Negative) 09/02/20 03:44 Urine Nitrite Neg (Negative) 09/02/20 03:44 Urine Bilirubin Neg (Negative) 09/02/20 03:44 Urine Urobilinogen < 2.0 mg/dL (<2.0) 09/02/20 03:44 Ur Leukocyte Esterase Neg (Negative) 09/02/20 03:44 Urine WBC (Auto) < 1.0 /HPF (0.0-6.0) 09/02/20 03:44 Urine RBC (Auto) < 1.0 /HPF (0.0-6.0) 09/02/20 03:44 U Epithel Cells (Auto) < 1.0 /HPF (0-13.0) 09/02/20 03:44 Urine Bacteria (Auto) 2+ /HPF (Negative) 09/02/20 03:44 Urine Mucus Few /HPF 09/02/20 03:44 Urine Creatinine 43.2 mg/dL (0.1-20.0) H 09/06/20 06:52 Protein/Creatinin Ratio 6.90 09/06/20 06:52 Urine Sodium 84 mmol/L 09/06/20 06:52 Urine Total Protein 298 mg/dL (5-11.8) H 09/06/20 06:52 DEMARCUS Screen Negative (Negative) 09/17/20 00:10 Proteinase 3 (PR3) Ab <1.0 AI (<1.0) 09/17/20 00:10 Myeloperoxidase Ab <1.0 AI (<1.0) 09/17/20 00:10 Glomerular Base Mem IgG See scanned result 09/16/20 13:44 Complement C3 82 mg/dL (83-193) L 09/17/20 00:10 Complement C4 26 mg/dL (15-57) 09/17/20 00:10 C. difficile Tox (PCR) Negative (Negative) 09/02/20 13:05 Coronavirus (PCR) Positive (Negative) A 09/17/20 Unknown SARS-CoV-2 IgG Ab Nonreactive (NonReactive) 09/02/20 08:10 Blood Type O POSITIVE 09/17/20 13:49 Antibody Screen Negative 09/17/20 13:49 Crossmatch See Detail 09/17/20 13:49 - Diagnostic Impressions Diagnostic Impressions: Echocardiogram 09/22/20 13:29 Transthoracic Echocardiogram Indication: Cardiopulmonary arrest BP: 175/66 HR: 71 Conclusions *4-chamber dilated cardiomyopathy. *Global left ventricular systolic function is mildly decreased. *The estimated ejection fraction is 40-45%. *Mild concentric left ventricular hypertrophy is observed. *There is mild to moderate mitral regurgitation. *There is mild to moderate tricuspid regurgitation. *There is moderately-severe pulmonary hypertension. *The right ventricular systolic pressure is calculated at 62 mmHg. *There is a minimial pericardial effusion. Findings Left Ventricle: The left ventricular chamber size is mildly dilated. Mild concentric left ventricular hypertrophy is observed. Global left ventricular systolic function is mildly decreased. The estimated ejection fraction is 40-45%. Left Atrium: The left atrium is moderately dilated. Right Ventricle: The right ventricle is mildly dilated. The right ventricular global systolic function is mildly reduced. Right Atrium: The right atrium is moderately dilated. Aortic Valve: The aortic valve is trileaflet. The aortic valve leaflets are moderately thickened. There is no evidence of aortic regurgitation. There is no evidence of aortic stenosis. Mitral Valve: The mitral valve leaflets are mildly thickened. There is mild to moderate mitral regurgitation. There is no evidence of mitral stenosis. Tricuspid Valve: The tricuspid valve leaflets are normal. There is mild to moderate tricuspid regurgitation. The right ventricular systolic pressure is calculated at 62 mmHg. There is evidence of severe pulmonary hypertension. Pulmonic Valve: There is mild pulmonic regurgitation. Pericardium: There is a minimial pericardial effusion. Aorta: There is no dilatation of the ascending aorta. There is no dilatation of the aortic root. Venous: The inferior vena cava is dilated. Measurements Chambers 2D Name Value Normal Range IVSd (2D) 1.17 cm (0.6 - 1.1) LVPWd (2D) 1.15 cm (0.6 - 1.1) IVS:LVPW ratio (2D) 1.02 ratio - LVIDd (2D) 5 cm (3.7 - 5.6) LVIDs (2D) 3.71 cm (2 - 3.8) LV FS (Teichholz) (2D) 25.8 % - LV FS (cube) (2D) 25.8 % - EF Teichholz (2D) 50.4 % - Ao root diameter (2D) 2.6 cm (2 - 3.7) LA dimension (AP) 2D 5.1 cm (1.9 - 4) LA:Ao ratio (2D) 1.96 ratio - Volumes/Mass Name Value Normal Range LA ESV SP 4CH (MOD) 49 ml - LA ESV SP 2CH (MOD) 96 ml - LA ESV BP (MOD) 69 ml - LA ESV BP (MOD) index 33.2 ml/m2 - Diastolic/Systolic Function Name Value Normal Range MV E-wave Vmax 1.21 m/sec - MV deceleration time 254 msec - MV A-wave Vmax 1.12 m/sec - MV E:A ratio 1.1 ratio - Aortic Valve Name Value Normal Range AV VTI 31.1 cm - AV mean gradient 4 mmHg - LVOT diameter 2 cm - LVOT VTI 19.4 cm - LVOT mean gradient 2 mmHg - Mitral Valve Name Value Normal Range MV Vmax 1.44 m/sec - MV VTI 35.9 cm - MV peak gradient 8 mmHg - MV mean gradient 5 mmHg - MR Vmax 5.52 m/sec - Tricuspid Valve Name Value Normal Range TR Vmax 3.52 m/sec - TR peak gradient 50 mmHg - RVSP 62 mmHg - [place]/IV: Voiding Method Incontinent IV Catheter Type [Left Upper PICC Line arm] IV Catheter Type [Right INT / Saline Lock Forearm] IV Catheter Type [Left INT / Saline Lock Antecubital] IV Catheter Type [Right Hand] INT / Saline Lock IV Catheter Type [Right Upper Mid-line arm] IV Catheter Type [Right INT / Saline Lock External Jugular] Active Medications - Current Medications Current Medications: Generic Name Dose Route Start Last Admin Trade Name Freq PRN Reason Stop Dose Admin Acetaminophen 650 mg 09/02/20 00:30 09/05/20 22:50 Tylenol PO 650 mg Q6H PRN Administration Pain, Mild (1-3) Amlodipine Besylate 10 mg 09/21/20 12:00 09/28/20 10:03 Amlodipine PO Not Given DAILY [facility] Calcitriol 0.5 mcg 09/05/20 13:00 09/28/20 10:04 Rocaltrol PO Not Given QDAY JAE Clonidine HCl 0.1 mg 09/26/20 10:00 09/26/20 11:44 Catapres-Tts Patch TD 0.1 mg Sa JAE Administration Dextrose 50 ml 09/11/20 19:09 09/27/20 05:59 D50w (25gm) Syringe IV 50 ml Q30MIN PRN Administration Hypoglycemia Protocol Ferrous Sulfate 308 mg 09/21/20 10:00 09/28/20 10:04 Ferrous Sulfate FEEDTUBE Not Given DAILY JAE Haloperidol Lactate 5 mg 09/11/20 19:10 Haldol IM Q6H PRN Agitation Hydralazine HCl 10 mg 09/10/20 22:23 09/14/20 05:46 Apresoline IV 10 mg Q6H PRN Administration Blood Pressure Insulin Human Lispro 0 unit 09/19/20 12:00 09/29/20 00:50 Humalog SUB-Q Not Given Q6HR [facility] Protocol Multivitamins 5 ml 09/18/20 10:00 09/28/20 10:03 Centrum Liq PO Not Given QDAY JAE Pantoprazole Sodium 40 mg 09/22/20 10:00 09/28/20 20:59 Protonix IV Not Given BID JAE Potassium Bicarbonate 50 meq 09/10/20 22:00 09/28/20 20:59 Klor-Con PO Not Given BID JAE Sertraline HCl 50 mg 09/02/20 10:00 09/28/20 10:05 Zoloft PO Not Given DAILY JAE Sodium Chloride 10 ml 09/02/20 10:00 09/28/20 21:00 Sodium Chloride Flush Syringe 10 Ml IV 10 ml BID JAE Administration Sodium Chloride 10 ml 09/02/20 00:30 Sodium Chloride Flush Syringe 10 Ml IV PRN PRN LINE FLUSH Nutrition/Malnutrition Assess - Dietary Evaluation Nutrition/Malnutrition Findings: Nutrition Notes Start: 09/03/20 13:19 Freq: Status: Active Protocol: Document 09/28/20 09:33 LM (Rec: 09/28/20 09:43 LM [id number]) Nutrition Notes Initial or Follow up Reassessment Current Diagnosis Acute Kidney Injury,CKD(stage I-IV),Diabetes Other Pertinent Diagnosis COVID-19 (+), pneu, anemia, bilat BKA, erosive esophagitis Current Diet NPO Labs/Tests BUN 39 Cr 1.7 BG 195 Pertinent Medications Reviewed Height 5 ft 6 in Weight 103 kg [place] Body Weight (kg) 59.09 BMI 36.6 Weight Status Obese Subjective/Other Information 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 Per reports pt to get PEG today depending on INR and platelets . Percent of energy/protein needs met: 0%/0% Burn Absent Trauma Absent Difficulty In Swallowing Current % PO Negligible Minimum of two criteria No physical signs of malnutrition #2 Nutrition Diagnosis Increased nutrient needs ( specify in comment below) Diagnosis Progress(for reassessment Continues documentation) #1 Nutrition Diagnosis Inadequate oral intake Diagnosis Progress(for reassessment Continues documentation) Is patient on ventilator? No Is Patient Ambulatory and/or Out of Bed No REE-([place]-confined to bed) 1926.912 Kcal/Kg value to use for calculation 16 Approximate Energy Requirements Using 1648 kcal/Kg Calculation Used for Recommendations Kcal/kg Additional Notes Protein: 65-122g (0.8-1.5g/kg using AdjBW 81kg) Fluid: 1ml/kcal Nutrition Intervention Change Diet Order: TF Nutrition Support: Nepro at 40ml/hr Flush with 150ml q4h Kcal 1,728 Protein (gm) 78 Fluid (mL) 698 Goal #1 Start TF when medically feasible Anticipated Discharge Needs: TF Follow-Up By: 09/30/20 Additional Comments F/U for PEG placement, TF consult
[2020-09-29 07:10] LABS: Hematocrit 25.4 % (30.3-42.9); Hemoglobin 8.5 gm/dl (10.1-14.3); Mean Corpuscular HGB Conc 33 % (30-34); Mean Corpuscular Volume 84 fl (79-97); Platelet Count 140 K/mm3 (140-440); Red Blood Count 3.01 M/mm3 (3.65-5.03); Red Cell Distribution Width 16.9 % (13.2-15.2)
[2020-09-29 07:21] LABS: INR 1.45 (0.87-1.13)
[2020-09-29 09:47] LABS: Calcium 8.1 mg/dL (8.4-10.2)
[2020-09-29] MEDS: amLODIPine 10 MG TAB PO SCH (10:05)
[2020-09-29] MEDS: SERTRALINE 50 MG TAB PO SCH (10:05)
[2020-09-29] MEDS: FERROUS SULFATE 308 MG (62mg Elemental Iron) / 7 ML ELIXIR FEEDTUBE SCH (10:05)
[2020-09-29] MEDS: PANTOPRAZOLE 40 MG INJ IV SCH ×2 (10:05→22:19)
[2020-09-29] MEDS: K-LYTE 25 MEQ TABLET EFF PO SCH ×3 (10:05→23:26)
[2020-09-29] MEDS: CALCITRIOL 0.5 MCG CAP PO SCH (10:05)
[2020-09-29] MEDS: MULTIVITAMINS 5 ML ORAL LIQUID PO SCH (10:05)
--- NOTE | 2020-09-29 10:28 | Progress Note ---
Assessment and Plan 1. Acute kidney injury: DIRK secondary to combination of Vasomotor nephropathy and severe sepsis. Renal US negative for hydro. Monitor renal function, improving. Prior Creatinine was 1.2 in 2014. Likely CKD stage 4. Renal prognosis is guarded. Avoid nephrotoxic agents. Meds dosage based on GFR. 2. FEN: Hyperchloremic Metabolic acidosis, monitor. Hypernatremia, improved, monitor. Monitor lytes. Patient is not given any PO meds. 3. Nephrotic syndrome: Likely diabetic nephropathy. DEMARCUS, ANCA and GBM Ab are negative. Complements appears normal. SPE; too small of M spike. 4. Severe sepsis, POA, now with shock: Off pressors. 5. S/p Cardiac arrest. 6. Severe COVID infection: Seen by ID. 7. Acute hypoxic resp failure: Intubated post-arrest. S/p extubated. 8. Bilateral LE DVT, POA. 9. Microcytic anemia, POA: S/p PRBC. Monitor. Seen by GI. 10. Thrombocytopenia, POA. 11. Acute diarrhea: Likely associated with COVID-19 infection. C. difficile test negative. Subjective: Patient was seen and examined at the bedside. Examination: General appearance: well-developed, appears stated age, no distress, mittens HEENT: JAYCE Neck: Trachea midline Respiratory: ctab Cardiology: regular, S1S2, no murmur Gastrointestinal: normoactive bowel sounds, no tenderness, not distended Integumentary: no obvious rash Neurologic: alert, moving extremities Ext: trace dependent edema, b/l BKA : [place] catheter Subjective Date of service: 09/29/20 Principal diagnosis: Iron Def Anemia Objective - Vital Signs Vital signs: Vital Signs - 12hr 09/29/20 04:19 Temperature 97.5 F L Pulse Rate 73 Respiratory 16 Rate Blood Pressure 174/78 O2 Sat by Pulse 98 Oximetry - Lab 09/29/20 06:25 09/29/20 06:25 Most recent lab results ABG pH 7.441 (7.320-7.450) 09/21/20 03:25 Calcium 8.1 mg/dL (8.4-10.2) L 09/29/20 06:25 Phosphorus 3.60 mg/dL (2.5-4.5) 09/25/20 15:25 Magnesium 2.20 mg/dL (1.7-2.3) 09/14/20 19:57 Urine Creatinine 43.2 mg/dL (0.1-20.0) H 09/06/20 06:52 Urine Sodium 84 mmol/L 09/06/20 06:52 Urine Total Protein 298 mg/dL (5-11.8) H 09/06/20 06:52 Medications & Allergies - Medications Allergies/Adverse Reactions: Allergies No Known Allergies Allergy (Unverified 02/14/14 19:23) Home Medications: Home Medications Medication Instructions Recorded Confirmed Last Taken Type Aspirin [[place] Aspirin] 81 mg PO DAILY 02/14/14 02/22/14 02/14/14 11:00 History Ferrous Sulfate [Feosol 325mg] 325 mg PO DAILY 02/14/14 02/22/14 02/14/14 11:00 History Sertraline [Zoloft] 50 mg PO DAILY 02/14/14 02/22/14 02/14/14 11:00 History amLODIPine 5 mg PO DAILY 02/14/14 02/22/14 02/14/14 11:00 History hydroCHLOROthiazide 25 mg PO DAILY 02/14/14 02/22/14 02/14/14 11:00 History [Hydrochlorothiazide] Aspirin EC [Ecotrin] 325 mg PO QDAY #60 tablet 09/17/20 Unknown Rx Insulin Glargine [Lantus VIAL] 14 units SUB-Q QHS 30 Days 09/17/20 Unknown Rx Pantoprazole [Protonix TAB] 40 mg PO BIDAC #60 tablet 09/17/20 Unknown Rx calcitrioL [Rocaltrol] 0.5 mcg PO QDAY #30 capsule 09/17/20 Unknown Rx metOLazone [Zaroxolyn] 10 mg PO QDAY #30 tablet 09/17/20 Unknown Rx Active Medications: Generic Name Dose Route Start Last Admin Trade Name Freq PRN Reason Stop Dose Admin Acetaminophen 650 mg 09/02/20 00:30 09/05/20 22:50 Tylenol PO 650 mg Q6H PRN Administration Pain, Mild (1-3) Amlodipine Besylate 10 mg 09/21/20 12:00 09/29/20 10:05 Amlodipine PO Not Given DAILY [facility] Calcitriol 0.5 mcg 09/05/20 13:00 09/29/20 10:05 Rocaltrol PO Not Given QDAY JAE Clonidine HCl 0.1 mg 09/26/20 10:00 09/26/20 11:44 Catapres-Tts Patch TD 0.1 mg Sa JAE Administration Dextrose 50 ml 09/11/20 19:09 09/27/20 05:59 D50w (25gm) Syringe IV 50 ml Q30MIN PRN Administration Hypoglycemia Protocol Ferrous Sulfate 308 mg 09/21/20 10:00 09/29/20 10:05 Ferrous Sulfate FEEDTUBE Not Given DAILY JAE Haloperidol Lactate 5 mg 09/11/20 19:10 Haldol IM Q6H PRN Agitation Hydralazine HCl 10 mg 09/10/20 22:23 09/14/20 05:46 Apresoline IV 10 mg Q6H PRN Administration Blood Pressure Insulin Human Lispro 0 unit 09/19/20 12:00 09/29/20 07:17 Humalog SUB-Q Not Given Q6HR JAE Protocol Multivitamins 5 ml 09/18/20 10:00 09/29/20 10:05 Centrum Liq PO Not Given QDAY JAE Pantoprazole Sodium 40 mg 09/22/20 10:00 09/29/20 10:05 Protonix IV Not Given BID JAE Potassium Bicarbonate 50 meq 09/10/20 22:00 09/29/20 10:05 Klor-Con PO Not Given BID JAE Sertraline HCl 50 mg 09/02/20 10:00 09/29/20 10:05 Zoloft PO Not Given DAILY JAE Sodium Chloride 10 ml 09/02/20 10:00 09/29/20 10:06 Sodium Chloride Flush Syringe 10 Ml IV 10 ml BID JAE Administration Sodium Chloride 10 ml 09/02/20 00:30 Sodium Chloride Flush Syringe 10 Ml IV PRN PRN LINE FLUSH
[2020-09-29] MEDS ORDERED: ceFAZolin/Water 2 GM/20 ML 2 GM/20 ML SYRINGE IV ONE (13:53)
[2020-09-29] MEDS ORDERED: ceFAZolin/Water 2 GM/20 ML 2 GM/20 ML SYRINGE IV NR (14:00)
[2020-09-29] MEDS ORDERED: SODIUM CHLORIDE 0.9% 1000 ML 1,000 ML ONE (14:21)
--- NOTE | 2020-09-29 14:34 | Anesthesia Day of Surgery ---
Anesthesia Day of Surgery - Day of Surgery Patient Examined: Yes Patient H&P Reviewed: Yes Patient is NPO: Yes
--- NOTE | 2020-09-29 14:41 | Anesthesia Consultation ---
Anesthesia Consult and Med Hx Date of service: 09/29/20 - Airway Intubation Access Assessment: Probably Good (Unable to assess airway) - Pre-Operative Health Status ASA Pre-Surgery Classification: ASA4 Proposed Anesthetic Plan: MAC - Pulmonary Hx Smoking: Yes Hx Asthma: No COPD: No (COVID +) Hx Pneumonia: No - Cardiovascular System Hx Hypertension: Yes (date unknown. Cardiac arrest [id number]) Hx Pacemaker: No (ECHO EF .45) Hx Internal Defibrillator: No - Gastrointestinal Hx Ulcer: Yes (GI Bleed) Hx Gastroesophageal Reflux Disease: No - Endocrine Hx Renal Disease: Yes (DIRK. Nephrotic syndrome) Hx End Stage Renal Disease: No Hx Insulin Dependent Diabetes: Yes - Hematic Hx Anemia: Yes (Hypercoagulable. DVT) - Other Systems Hx Cancer: No Hx Obesity: Yes
[2020-09-29] MEDS ORDERED: ONDANSETRON 4 MG/2 ML INJ ONE (14:46)
[2020-09-29] MEDS ORDERED: LIDOCAINE MPF (2%) 20 MG/1 ML VIAL 5 ML ONE (14:46)
[2020-09-29] MEDS ORDERED: propofoL 200 MG/20 ML VIAL IV ONE (14:47)
[2020-09-29] MEDS ORDERED: fentaNYL 100 MCG/2 ML INJ ONE (14:47)
--- NOTE | 2020-09-29 15:17 | Operative Report ---
Operative Report Operative Report: Esophagogastroduodenoscopy Procedure Note with PEG tube placement Date of procedure: 09/29/2020 Endoscopist: Juve Velazquez Pre-op diagnosis/indication: Oropharyngeal dysphagia Post-op diagnosis: Numerous gastric and duodenal avm's. MEDICATIONS: MAC, ancef 2 grams COMPLICATIONS: No immediate complications ESTIMATED BLOOD LOSS: Minimal DESCRIPTION OF PROCEDURE: After consent was obtained from the patient's son over the phone, the patient was placed in the supine position. The olympus endoscope was inserted into the patient's mouth under direct vision and advanced to the 2nd portion of the duodenum without difficulty. The patient tolerated the procedure well. The views of the mucosa were good. The patient's vital signs were monitored continuously throughout the procedure. The stomach was transilluminated and an optimal position for the PEG tube was identified using the single poke method. The skin was infiltrated with local lidocaine, followed by a small incision. The needle and sheath were inserted through the abdomen into the stomach under direct visualization. The needle was removed and a guidewire was inserted through the sheath. The guidewire was grasped from above with a snare. It was removed completely and the 20 Fr PEG tube was secured to the guidewire. The guidewire and PEG tube were then pulled through the mouth and esophagus and snug to the abdominal wall. The external bumper was at 3 cm. The endoscope was re-inserted which showed good positioning of the internal bumper. FINDINGS: The esophagus appeared normal. There were numerous AVM's throughout the gastric fundus and body. No active bleeding was seen. PEG tube placed as above with external bumper at 3 cm. Numerous AVM's throughout the visualized portion of the duodenum. Eryethematous and inflamed mucosa in the duodenal bulb. IMPRESSION: 1. Numerous gastric and duodenal avm's. 2. Successful PEG tube placement as above. RECOMMENDATIONS: -can use peg tube for medications in 2 hours and for tube feeds in 6 hours if no new symptoms -consult nutrition for tube feeding recommendations -post PEG care daily
--- NOTE | 2020-09-29 17:32 | Progress Note ---
Assessment and Plan Assessment and plan: --S/P Cardiorespiratory arrest on 09/17/20 Intubated on vent, pulmonary critical, cardiology following Patient was weaned and extubated yesterday Today patient is alert and awake on nasal cannula oxygen -- Acute delirium/acute metabolic encephalopathy Etiology unknown, likely initially was metabolic Significantly improved, neuro, psych consult as needed --Sepsis ;Due to COVID-19 pneumonia Received complete treatment,Blood culture NTD --Septic shock, status post pressor following cardiac arrest BP now stable, continue to monitor --COVID-19 pneumonia, POA Coronavirus protocol: Coronavirus PCR is positive, contact precaution, isolation precautions, prone positioning while in bed, Not a candidate for remdesivir due to renal failure Continue dexamethasone, s/p convalescent plasma --Acute on chronic anemia Due to chronic GI bleed and iron deficiency Status post transfusion of 3 units PRBC, PPI. Continue to monitor for GI bleed As per GI, does not look like patient is having GI bleed at this time Advance diet as tolerated --Possible GI bleed, chronic Advance diet, GI on board Recommended to manage medically --Acute kidney injury (DIRK) with acute tubular necrosis (ATN) Continue to monitor renal function Nephrology following closely --Hypernatremia Continue isotonic solution Nephrology on board --Bilateral lower extremity DVT, chronic Consulted vascular surgeon for consideration of IVC filter placement. As per vascular surgery, patient is not a good candidate for IVC filter pl acement INR 2.74. GI recommended to treat with aspirin only --Diabetes type II Accu-Chek sliding scale coverage ADA diet Insulin as needed --Ongoing tobacco use; Smoking cessation counseling Nicotine patch as needed --EPIXTASIS --DVT prophylaxis, Anticoagulation --full code status Bedside swallow eval versus speech therapy swallow eval Patient is stable to be transferred out of ICU to medical floor. Physical therapy occupational therapy The high probability of a clinically significant, sudden or life threatening deterioration of the [BIOMETRICIAN, CVS, respiratory, renal, GI] system(s) required my full and direct attention, intervention and personal management. The aggregate critical care time was [35] minutes. This time is in addition to time spent performing reported procedures but includes the following: [x] Data Review and interpretation [x] Patient assessment and monitoring of vital signs [x] Documentation [x] Medication orders and management Plan of care reviewed with the patient and her nurse Brief History; 64 YO Female with HTN, DM, Anemia, PVD, Nicotine Dependence, positive coronavirus test recently at [facility] presented to the emergency room for further evaluation. Patient states that she has experienced subjective fever, generalized weakness, body aches, shortness of breath, nausea, multiple loose stools, lower extremity edema over the past 1 week with progressively worsening symptoms over the past 3 to 4 days prior to presentation. Here, patient found to be hypotensive with a systolic blood pressure ranging from 53-94. Patient was also hypothermic with a body temperature of 93.3 F. Patient met criteria for sepsis protocol and found to have bilateral pneumonia, metabolic acidosis, acute kidney injury. Patient admitted to telemetry due to increased risk of multisystem decompensation. Patient initiated on coronavirus protocol. Coronavirus PCR has been ordered, Patient remained hypotensive in spite of IV fluid resuscitation therapy. Patient subsequently upgraded to IMCU. Her repeat COVID-19 test was positive. She was treated with dexamethasone daily for 10 days. Remdesivir could not be given because of worsening renal function. Did receive convalescent plasma. Patient was downgraded to MedSurg. Patient did have on and off delirium recovering restrain. But she was clinically improving and was planning for discharge. On 09/17 morning she developed cardiorespiratory arrest following a coffee-ground emesis. Patient was intubated and transferred to ICU, critical care was consulted, placed on pressor support for hypotension. Family updated and wanted to continue aggressive care. s/p extubation today. daily course: 09/03. While in the ER, patient had an ultrasound Doppler performed that showed bilateral DVT involving the iliac veins. Patient was started on heparin drip. ID consulted for COVID-19 and nephrology consulted for DIRK. Patient seen and examined at bedside this morning. She has no complaints this morning. Her hemoglobin dropped to 6.4 this morning. Patient will get transfused 1 unit of PRBCs. Later this p.m., was notified by nurse that patient is having tarry dark stool and hematemesis. Heparin drip discontinued. Patient started on PPI drip and made n.p.o. GI is has been consulted. Patient will need to have an upper endoscopy. She has bilateral lower extremity DVT and will need vascular surgery evaluation to determine if she is a candidate for IVC filter placement. 09/04. Patient seen and examined at bedside this morning. Labs reviewed showed hemoglobin 5.3. Patient will receive 2 units PRBCs. FFP also ordered. GI evaluation pending. Continue PPIs. Vascular surgeon to see to determine if patient is a candidate for IVC filter placement for DVT. 09/05. Hb stable this morning. GI on board. On PPI drip. 09/06. Gastroenterology and vascular surgery recommendations reviewed. Patient not a good candidate for IVC filter placement due to location of the clot/thrombosis. Plan is for patient to have anticoagulation on while monitoring hemoglobin. Patient's INR is more than 2 at this time so we will hold anticoagulation for now and monitor hemoglobin. Plan to initiate anticoagulation when INR is less than 2. We will preferably use heparin products as she has a high chance of bleeding. Continue to monitor hemoglobin. Hb 7.3 this a.m. 09/07. Hemoglobin 8.2 this AM. No clear signs of GI bleed. Her INR is 2.74. No need for initiation of AC for now as she INR is already therapeutic. Plan is to monitor for bleeding and if she remains stable, she will be started on anticoagulation for her bilateral DVT. Vascular surgery following-patient not a candidate for IVC catheter placement. GI recommendations appreciated 09/08: Patient is nonreactive to COVID-19 antibody, per ID order for convalescent plasma. Continue supportive care, follow clinically 09/09: Pending convalescent plasma transfusion, continue to follow inflammatory markers. Monitor H&H. Plan to start on aspirin tomorrow if INR and H&H stable 09/10: hb dropped to 6.8, transfuse one unit, discussed with GI - no plan for endoscopy now, cont to follow clinically 09/11: patient didn't get transfusion yesterday. became very agitated today, ord ered as needed haldol, cont iv fluid. monitor clinically 09/12: placed on restrain o/n. cont supportive care, lost IV line - ordered for midline. pending PRBC transfusion 09/13: monitor h/h, patient more clam today, continue supportive care, follow BMP - Na and Cr has been improving 09/14: cont to monitor, follow BMP, follow h/h. oral intake improved per RN 09/15: If h/h stable and Cr cont to improves will d/c in a day or two 09/16; spoke with daughter and updated her with patient's clinical condition. family willing to accept the patient tomorrow. RN reported some Nose bleeding earlier today, but now resolved. repeat h/h stable 09/17: had respiratory/cardiac arrest this am. patient transferred to ICU. updated family. will get CT head, patient now intubated, start on bicarbonate drip 09/18; remains unresponsive, NG tube placed and noted bolld from the NG tube, discussed with GI - recommended PRBC/FFP transfusion. patient remains unresponsive w/o sedation and intubated. Called daughter and updated. 09/19: - Patient had OG tube with initial bloody secretions on insertion but currently with dark greenish output. No active bloody output from the OG tube. Rectal tube with dark greenish bilious output. No clear signs of active on-going GI bleeding. Off levophed. Continue to monitor H&H, transfuse as needed. Patient remains unresponsive without any sedation. Poor prognosis which I discussed with the family 09/20: cont supportive care, wean off vent as tolerated. Updated family by phone 09/21: s/p extubation today. Continue to assess mental status. Continue s upportive care. We will stop the bicarbonate drip and start sodium bicarbonate with feeding tube. We will continue half-normal saline for now and monitor BMP daily, ordered speech eval. 09/22; patient was extubated yesterday, today doing well on nasal cannula oxygen, will request for swallow eval, and ordered diet as tolerated Will downgrade her to medical floor, she is still agitated will renew her restraints. Closely monitor DC planning per case management 09/23: Recurrent nosebleed. Rhino Rocket placed in the left nare. Afrin ordered twice daily. Aspiration precautions at this time. No worsening oxygen demand. Will monitor for additional 24 hours. Discharge planning from them. Discussed with nurses at bedside and also with patient. SCDs for DVT prophylaxis discontinue chemical chemoprophylaxis. 09/24: No further bleeding, possible Rhino rocket was replaced as it looks d ifferent, continue Afrin, MONITOR H/H and PLT. 09/25: Clinically stable continue Afrin nose packing is out. Will reevaluate swallowing. Awaiting for cardiology clearance for possible PEG if continues to fail swallowing evaluation. Encourage movement as much as possible due to risk of dvt development. discussed with family 09/26; Continue supportive care, no further bleeding reported. will keep NPO midnight monday to monday for possible PEG placement patient still failed swallo w evaluation per speech re-evaluation 'Received a repeat order for an evaluation. Patient was assessed on 09/23/20. NPO was recommended at the time due to her inability to participate and poor swallowing ability. Patient is unchanged from two days prior and is not appropriate for po consumption. She holds the bolus in the oral cavity and fails to initiate a swallow which places her at risk for aspiration. PEG placement is recommended for this patient. No further recommendations.' Due to labile BP will add patch of clonidine. 09/27: BP stable. Await reevaluation by speech and possible PEG placement prior to discharge. 09/28: Patient will need PEG placement patient still hypercoagulable with increased INR greater than 2 will give vitamin K and FFP and anticipate PEG placement tomorrow prior to discharge to SNF. 09/29 patient for PEG placement today AND CAN BE DISCHARGED IN AM, high risk for rebleed on anticoagulation. History Interval history: Patient seen and examined this morning, no worsening shortness of breath. No further nose bleed. For PEG placement Hospitalist Physical - Physical exam Narrative exam: General appearance: Present: no acute distress, well-nourished, chronically ill- appearing - EENT Eyes: Present: PERRL, EOM intact, rhino rocket inplace. - Neck Neck: Present: supple, normal ROM - Respiratory Respiratory effort: normal Respiratory: bilateral: diminished, rhonchi, negative: rales, wheezing - Cardiovascular Rhythm: regular Heart Sounds: Present: S1 & S2 - Extremities Extremities: no ischemia, No edema - Abdominal General gastrointestinal: soft, non-tender, non-distended, normal bowel sounds - Integumentary Integumentary: Present: clear, warm - Psychiatric Psychiatric: appropriate mood/affect, cooperative - Neurologic Neurologic: moves all extremities - Patient Problems - Constitutional Vitals: Temp Pulse Resp BP Pulse Ox 97.8 F 74 15 119/56 97 09/29/20 15:20 09/29/20 15:35 09/29/20 15:35 09/29/20 15:35 09/29/20 15:35 General appearance: Present: no acute distress, well-nourished Results - Labs CBC & Chem 7: 09/29/20 06:25 09/29/20 06:25 Labs: Laboratory Last Values WBC 8.5 K/mm3 (4.5-11.0) 09/29/20 06:25 RBC 3.01 M/mm3 (3.65-5.03) L 09/29/20 06:25 Hgb 8.5 gm/dl (10.1-14.3) L 09/29/20 06:25 Hct 25.4 % (30.3-42.9) L 09/29/20 06:25 MCV 84 fl (79-97) 09/29/20 06:25 MCH 28 pg (28-32) 09/29/20 06:25 MCHC 33 % (30-34) 09/29/20 06:25 RDW 16.9 % (13.2-15.2) H 09/29/20 06:25 Plt Count 140 K/mm3 (140-440) 09/29/20 06:25 Lymph % (Auto) Robot Programmer 09/22/20 08:00 Bollinger % (Auto) Robot Programmer 09/22/20 08:00 Eos % (Auto) Robot Programmer 09/22/20 08:00 Baso % (Auto) Robot Programmer 09/22/20 08:00 Lymph # (Auto) Robot Programmer 09/22/20 08:00 [place]linger # (Auto) Robot Programmer 09/22/20 08:00 Eos # (Auto) 0.0 K/mm3 (0.0-0.4) 09/08/20 05:18 Baso # (Auto) 0.0 K/mm3 (0.0-0.1) 09/08/20 05:18 Add Manual Diff Complete 09/27/20 15:21 Total Counted 100 09/27/20 15:21 Seg Neutrophils % Robot Programmer 09/22/20 08:00 Seg Neuts % (Manual) 88.0 % (40.0-70.0) H 09/27/20 15:21 Band Neutrophils % 1.0 % 09/27/20 15:21 Lymphocytes % (Manual) 4.0 % (13.4-35.0) L 09/27/20 15:21 Reactive Lymphs % (Man) 0 % 09/27/20 15:21 Monocytes % (Manual) 5.0 % (0.0-7.3) 09/27/20 15:21 Eosinophils % (Manual) 0 % (0.0-4.3) 09/27/20 15:21 Basophils % (Manual) 0 % (0.0-1.8) 09/27/20 15:21 Metamyelocytes % 2.0 % 09/27/20 15:21 Myelocytes % 0 % 09/27/20 15:21 Promyelocytes % 0 % 09/27/20 15:21 Blast Cells % 0 % 09/27/20 15:21 Nucleated RBC % Not Reportable 09/27/20 15:21 Seg Neutrophils # 9.5 K/mm3 (1.8-7.7) H 09/08/20 05:18 Seg Neutrophils # Man 8.9 K/mm3 (1.8-7.7) H 09/27/20 15:21 Band Neutrophils # 0.1 K/mm3 09/27/20 15:21 Lymphocytes # (Manual) 0.4 K/mm3 (1.2-5.4) L 09/27/20 15:21 Abs React Lymphs (Man) 0.0 K/mm3 09/27/20 15:21 Monocytes # (Manual) 0.5 K/mm3 (0.0-0.8) 09/27/20 15:21 Eosinophils # (Manual) 0.0 K/mm3 (0.0-0.4) 09/27/20 15:21 Basophils # (Manual) 0.0 K/mm3 (0.0-0.1) 09/27/20 15:21 Metamyelocytes # 0.2 K/mm3 09/27/20 15:21 Myelocytes # 0.0 K/mm3 09/27/20 15:21 Promyelocytes # 0.0 K/mm3 09/27/20 15:21 Blast Cells # 0.0 K/mm3 09/27/20 15:21 WBC Morphology Not Reportable 09/27/20 15:21 Hypersegmented Neuts Not Reportable 09/27/20 15:21 Hyposegmented Neuts Not Reportable 09/27/20 15:21 Hypogranular Neuts Not Reportable 09/27/20 15:21 Smudge Cells Not Reportable 09/27/20 15:21 Toxic Granulation Not Reportable 09/27/20 15:21 Toxic Vacuolation Not Reportable 09/27/20 15:21 Dohle Bodies Not Reportable 09/27/20 15:21 Pelger-Huet Anomaly Not Reportable 09/27/20 15:21 Ignacia Rods Not Reportable 09/27/20 15:21 Platelet Estimate Consistent w auto 09/27/20 15:21 Clumped Platelets Not Reportable 09/27/20 15:21 Plt Clumps, EDTA Not Reportable 09/27/20 15:21 Large Platelets Not Reportable 09/27/20 15:21 Giant Platelets Not Reportable 09/27/20 15:21 Platelet Satelliting Not Reportable 09/27/20 15:21 Plt Morphology Comment Not Reportable 09/27/20 15:21 RBC Morphology Not Reportable 09/27/20 15:21 Dimorphic RBCs Not Reportable 09/27/20 15:21 Polychromasia Not Reportable 09/27/20 15:21 Hypochromasia Few 09/27/20 15:21 Poikilocytosis Few 09/27/20 15:21 Anisocytosis Not Reportable 09/27/20 15:21 Microcytosis Not Reportable 09/27/20 15:21 Macrocytosis Not Reportable 09/27/20 15:21 Spherocytes Not Reportable 09/27/20 15:21 Pappenheimer Bodies Not Reportable 09/27/20 15:21 Sickle Cells Not Reportable 09/27/20 15:21 Target Cells Not Reportable 09/27/20 15:21 Tear Drop Cells Rare 09/27/20 15:21 Ovalocytes Not Reportable 09/27/20 15:21 Helmet Cells Rare 09/27/20 15:21 [place] Bodies Not Reportable 09/27/20 15:21 Emmett Rings Not Reportable 09/27/20 15:21 Flora Cells Rare 09/27/20 15:21 Bite Cells Not Reportable 09/27/20 15:21 Crenated Cell Not Reportable 09/27/20 15:21 Elliptocytes Not Reportable 09/27/20 15:21 Acanthocytes (Spur) Rare 09/27/20 15:21 Rouleaux Not Reportable 09/27/20 15:21 Hemoglobin C Crystals Not Reportable 09/27/20 15:21 Schistocytes Not Reportable 09/27/20 15:21 Malaria parasites Not Reportable 09/27/20 15:21 Molina Bodies Not Reportable 09/27/20 15:21 Hem Pathologist Commnt No 09/27/20 15:21 PT 17.5 Sec. (12.2-14.9) H 09/29/20 06:25 INR 1.45 (0.87-1.13) H 09/29/20 06:25 APTT 29.2 Sec. (24.2-36.6) 09/02/20 13:52 D-Dimer 1076.18 ng/mlDDU (0-234) H 09/01/20 21:55 Heparin Anti-Xa Level 0.94 U.I./ml (0.3-0.7) H 09/03/20 05:17 ABG pH 7.441 (7.320-7.450) 09/21/20 03:25 POC ABG pCO2 28.2 mmHg (32.0-48.0) L 09/21/20 03:25 POC ABG pO2 112.5 mmHg (83-108) H 09/21/20 03:25 POC ABG HCO3 18.8 09/21/20 03:25 POC ABG Base Excess -4.5 09/21/20 03:25 ABG Hemoglobin 9.4 (12.0-17.5) L 09/21/20 03:25 ABG Sodium 136.3 mmol/L (136.0-145.0) 09/21/20 03:25 ABG Potassium 4.4 mmol/L (3.40-4.50) 09/21/20 03:25 ABG Chloride 110.0 mmol/L (98-107) H 09/21/20 03:25 ABG Glucose 163 mg/dL (65-95) H 09/21/20 03:25 FiO2 40.0 09/21/20 03:25 Sodium 144 mmol/L (137-145) 09/29/20 06:25 Potassium 3.9 mmol/L (3.6-5.0) 09/29/20 06:25 Chloride 109.2 mmol/L (98-107) H 09/29/20 06:25 Carbon Dioxide 29 mmol/L (22-30) 09/29/20 06:25 Anion Gap 10 mmol/L 09/29/20 06:25 BUN 37 mg/dL (7-17) H 09/29/20 06:25 Creatinine 1.7 mg/dL (0.6-1.2) H 09/29/20 06:25 Estimated GFR 37 ml/min 09/29/20 06:25 BUN/Creatinine Ratio 22 % 09/29/20 06:25 Glucose 154 mg/dL (65-100) H 09/29/20 06:25 POC Glucose 131 mg/dL (70-105) H 09/29/20 16:15 Lactic Acid 0.60 mmol/L (0.7-2.0) L 09/02/20 08:10 Calcium 8.1 mg/dL (8.4-10.2) L 09/29/20 06:25 Phosphorus 3.60 mg/dL (2.5-4.5) 09/25/20 15:25 Magnesium 2.20 mg/dL (1.7-2.3) 09/14/20 19:57 Iron 28 ug/dL (37-170) L 09/07/20 09:13 TIBC 188 mcg/dL (250-450) L 09/07/20 09:13 Ferritin 313.5 ng/mL (10.0-200.0) H 09/01/20 21:55 Total Bilirubin 0.70 mg/dL (0.1-1.2) 09/19/20 04:29 AST 29 units/L (5-40) 09/19/20 04:29 ALT 43 units/L (7-56) 09/19/20 04:29 Alkaline Phosphatase 185 units/L (35-129) H 09/19/20 04:29 Lactate Dehydrogenase 435 units/L (91-180) H 09/01/20 21:55 C-Reactive Protein 2.30 mg/dL (0.00-1.30) H 09/01/20 21:55 NT-Pro-B Natriuret Pep 25561 pg/mL (0-900) H 09/01/20 21:55 Serum Total Protein 4.3 g/dL (6.1-8.1) L 09/16/20 13:44 Total Protein 4.3 g/dL (6.3-8.2) L 09/19/20 04:29 Albumin 2.1 g/dL (3.9-5) L 09/19/20 04:29 Albumin/Globulin Ratio 1.0 % 09/19/20 04:29 Errqd-5-Besjpslsh 0.5 g/dL (0.2-0.3) H 09/16/20 13:44 Vtyuh-3-Ukocilqte 0.6 g/dL (0.5-0.9) 09/16/20 13:44 Beta Globulins 0.3 g/dL (0.2-0.5) 09/16/20 13:44 Gamma Globulins 0.8 g/dL (0.8-1.7) 09/16/20 13:44 Abnorm Protein Band 1 see below 09/16/20 13:44 PEP Interpretation see below H 09/16/20 13:44 Vitamin B12 843.2 pg/mL (211-911) 09/07/20 09:13 Procalcitonin 0.10 ng/mL (<0.15) 09/01/20 21:55 TSH 0.735 mlU/mL (0.270-4.200) 09/02/20 00:45 Free T4 0.92 ng/dL (0.76-1.46) 09/02/20 00:45 Free T4 0.94 ng/dL (0.76-1.46) 09/02/20 00:45 PTH Intact 820.4 pg/mL (15-65) H 09/04/20 05:18 Arterial Blood Glucose 163 mg/dL (65-95) H 09/21/20 03:25 Arterial Blood Ionized Calcium 4.7 mg/dL (4.6-5.3) 09/21/20 03:25 Urine Color Elena (Yellow) 09/02/20 03:44 Urine Turbidity Cloudy (Clear) 09/02/20 03:44 Urine pH 7.0 (5.0-7.0) 09/02/20 03:44 Ur Specific [place] 1.015 (1.003-1.030) 09/02/20 03:44 Urine Protein >500 mg/dL (Negative) 09/02/20 03:44 Urine Glucose (UA) Neg mg/dL (Negative) 09/02/20 03:44 Urine Ketones Neg mg/dL (Negative) 09/02/20 03:44 Urine Blood Neg (Negative) 09/02/20 03:44 Urine Nitrite Neg (Negative) 09/02/20 03:44 Urine Bilirubin Neg (Negative) 09/02/20 03:44 Urine Urobilinogen < 2.0 mg/dL (<2.0) 09/02/20 03:44 Ur Leukocyte Esterase Neg (Negative) 09/02/20 03:44 Urine WBC (Auto) < 1.0 /HPF (0.0-6.0) 09/02/20 03:44 Urine RBC (Auto) < 1.0 /HPF (0.0-6.0) 09/02/20 03:44 U Epithel Cells (Auto) < 1.0 /HPF (0-13.0) 09/02/20 03:44 Urine Bacteria (Auto) 2+ /HPF (Negative) 09/02/20 03:44 Urine Mucus Few /HPF 09/02/20 03:44 Urine Creatinine 43.2 mg/dL (0.1-20.0) H 09/06/20 06:52 Protein/Creatinin Ratio 6.90 09/06/20 06:52 Urine Sodium 84 mmol/L 09/06/20 06:52 Urine Total Protein 298 mg/dL (5-11.8) H 09/06/20 06:52 DEMARCUS Screen Negative (Negative) 09/17/20 00:10 Proteinase 3 (PR3) Ab <1.0 AI (<1.0) 09/17/20 00:10 Myeloperoxidase Ab <1.0 AI (<1.0) 09/17/20 00:10 Glomerular Base Mem IgG See scanned result 09/16/20 13:44 Complement C3 82 mg/dL (83-193) L 09/17/20 00:10 Complement C4 26 mg/dL (15-57) 09/17/20 00:10 C. difficile Tox (PCR) Negative (Negative) 09/02/20 13:05 Coronavirus (PCR) Positive (Negative) A 09/17/20 Unknown SARS-CoV-2 IgG Ab Nonreactive (NonReactive) 09/02/20 08:10 Blood Type O POSITIVE 09/17/20 13:49 Antibody Screen Negative 09/17/20 13:49 Crossmatch See Detail 09/17/20 13:49 - Diagnostic Impressions Diagnostic Impressions: Echocardiogram 09/22/20 13:29 Transthoracic Echocardiogram Indication: Cardiopulmonary arrest BP: 175/66 HR: 71 Conclusions *4-chamber dilated cardiomyopathy. *Global left ventricular systolic function is mildly decreased. *The estimated ejection fraction is 40-45%. *Mild concentric left ventricular hypertrophy is observed. *There is mild to moderate mitral regurgitation. *There is mild to moderate tricuspid regurgitation. *There is moderately-severe pulmonary hypertension. *The right ventricular systolic pressure is calculated at 62 mmHg. *There is a minimial pericardial effusion. Findings Left Ventricle: The left ventricular chamber size is mildly dilated. Mild concentric left ventricular hypertrophy is observed. Global left ventricular systolic function is mildly decreased. The estimated ejection fraction is 40-45%. Left Atrium: The left atrium is moderately dilated. Right Ventricle: The right ventricle is mildly dilated. The right ventricular global systolic function is mildly reduced. Right Atrium: The right atrium is moderately dilated. Aortic Valve: The aortic valve is trileaflet. The aortic valve leaflets are moderately thickened. There is no evidence of aortic regurgitation. There is no evidence of aortic stenosis. Mitral Valve: The mitral valve leaflets are mildly thickened. There is mild to moderate mitral regurgitation. There is no evidence of mitral stenosis. Tricuspid Valve: The tricuspid valve leaflets are normal. There is mild to moderate tricuspid regurgitation. The right ventricular systolic pressure is calculated at 62 mmHg. There is evidence of severe pulmonary hypertension. Pulmonic Valve: There is mild pulmonic regurgitation. Pericardium: There is a minimial pericardial effusion. Aorta: There is no dilatation of the ascending aorta. There is no dilatation of the aortic root. Venous: The inferior vena cava is dilated. Measurements Chambers 2D Name Value Normal Range IVSd (2D) 1.17 cm (0.6 - 1.1) LVPWd (2D) 1.15 cm (0.6 - 1.1) IVS:LVPW ratio (2D) 1.02 ratio - LVIDd (2D) 5 cm (3.7 - 5.6) LVIDs (2D) 3.71 cm (2 - 3.8) LV FS (Teichholz) (2D) 25.8 % - LV FS (cube) (2D) 25.8 % - EF Teichholz (2D) 50.4 % - Ao root diameter (2D) 2.6 cm (2 - 3.7) LA dimension (AP) 2D 5.1 cm (1.9 - 4) LA:Ao ratio (2D) 1.96 ratio - Volumes/Mass Name Value Normal Range LA ESV SP 4CH (MOD) 49 ml - LA ESV SP 2CH (MOD) 96 ml - LA ESV BP (MOD) 69 ml - LA ESV BP (MOD) index 33.2 ml/m2 - Diastolic/Systolic Function Name Value Normal Range MV E-wave Vmax 1.21 m/sec - MV deceleration time 254 msec - MV A-wave Vmax 1.12 m/sec - MV E:A ratio 1.1 ratio - Aortic Valve Name Value Normal Range AV VTI 31.1 cm - AV mean gradient 4 mmHg - LVOT diameter 2 cm - LVOT VTI 19.4 cm - LVOT mean gradient 2 mmHg - Mitral Valve Name Value Normal Range MV Vmax 1.44 m/sec - MV VTI 35.9 cm - MV peak gradient 8 mmHg - MV mean gradient 5 mmHg - MR Vmax 5.52 m/sec - Tricuspid Valve Name Value Normal Range TR Vmax 3.52 m/sec - TR peak gradient 50 mmHg - RVSP 62 mmHg - [place]/IV: Voiding Method Incontinent IV Catheter Type [Left Upper PICC Line arm] IV Catheter Type [Right INT / Saline Lock Forearm] IV Catheter Type [Left INT / Saline Lock Antecubital] IV Catheter Type [Right Hand] INT / Saline Lock IV Catheter Type [Right Upper Mid-line arm] IV Catheter Type [Right INT / Saline Lock External Jugular] Active Medications - Current Medications Current Medications: Generic Name Dose Route Start Last Admin Trade Name Freq PRN Reason Stop Dose Admin Acetaminophen 650 mg 09/02/20 00:30 09/05/20 22:50 Tylenol PO 650 mg Q6H PRN Administration Pain, Mild (1-3) Amlodipine Besylate 10 mg 09/21/20 12:00 09/29/20 10:05 Amlodipine PO Not Given DAILY JAE Calcitriol 0.5 mcg 09/05/20 13:00 09/29/20 10:05 Rocaltrol PO Not Given QDAY JAE Clonidine HCl 0.1 mg 09/26/20 10:00 09/26/20 11:44 Catapres-Tts Patch TD 0.1 mg Sa JAE Administration Dextrose 50 ml 09/11/20 19:09 09/27/20 05:59 D50w (25gm) Syringe IV 50 ml Q30MIN PRN Administration Hypoglycemia Protocol Ferrous Sulfate 308 mg 09/21/20 10:00 09/29/20 10:05 Ferrous Sulfate FEEDTUBE Not Given DAILY [facility] Haloperidol Lactate 5 mg 09/11/20 19:10 Haldol IM Q6H PRN Agitation Hydralazine HCl 10 mg 09/10/20 22:23 09/14/20 05:46 Apresoline IV 10 mg Q6H PRN Administration Blood Pressure Sodium Chloride 1,000 mls @ 50 mls/hr 09/29/20 13:45 Nacl 0.9% 1000 Ml IV DIRECT JAE Cefazolin Sodium 2 gm in 20 mls @ 80 mls/hr 09/29/20 14:00 Ancef/Sterile Water 2 Gm/20 Ml IV 09/29/20 23:59 PREOP NR Protocol Insulin Human Lispro 0 unit 09/19/20 12:00 09/29/20 12:36 Humalog SUB-Q Not Given Q6HR [facility] Protocol Multivitamins 5 ml 09/18/20 10:00 09/29/20 10:05 Centrum Liq PO Not Given QDAY JAE Pantoprazole Sodium 40 mg 09/22/20 10:00 09/29/20 10:05 Protonix IV Not Given BID JAE Potassium Bicarbonate 50 meq 09/10/20 22:00 09/29/20 10:05 Klor-Con PO Not Given BID JAE Sertraline HCl 50 mg 09/02/20 10:00 09/29/20 10:05 Zoloft PO Not Given DAILY JAE Sodium Chloride 10 ml 09/02/20 10:00 09/29/20 10:06 Sodium Chloride Flush Syringe 10 Ml IV 10 ml BID JAE Administration Sodium Chloride 10 ml 09/02/20 00:30 Sodium Chloride Flush Syringe 10 Ml IV PRN PRN LINE FLUSH Nutrition/Malnutrition Assess - Dietary Evaluation Nutrition/Malnutrition Findings: Nutrition Notes Start: 09/03/20 13:19 Freq: Status: Active Protocol: Document 09/28/20 09:33 LM (Rec: 09/28/20 09:43 LM [id number]) Nutrition Notes Initial or Follow up Reassessment Current Diagnosis Acute Kidney Injury,CKD(stage I-IV),Diabetes Other Pertinent Diagnosis COVID-19 (+), pneu, anemia, bilat BKA, erosive esophagitis Current Diet NPO Labs/Tests BUN 39 Cr 1.7 BG 195 Pertinent Medications Reviewed Height 5 ft 6 in Weight 103 kg [place] Body Weight (kg) 59.09 BMI 36.6 Weight Status Obese Subjective/Other Information PAN OPERATOR recommends PEG. Per reports pt to get PEG today depending on INR and platelets . Percent of energy/protein needs met: 0%/0% Burn Absent Trauma Absent Difficulty In Swallowing Current % PO Negligible Minimum of two criteria No physical signs of malnutrition #2 Nutrition Diagnosis Increased nutrient needs ( specify in comment below) Diagnosis Progress(for reassessment Continues documentation) #1 Nutrition Diagnosis Inadequate oral intake Diagnosis Progress(for reassessment Continues documentation) Is patient on ventilator? No Is Patient Ambulatory and/or Out of Bed No REE-([facility]-confined to bed) 1926.912 Kcal/Kg value to use for calculation 16 Approximate Energy Requirements Using 1648 kcal/Kg Calculation Used for Recommendations Kcal/kg Additional Notes Protein: 65-122g (0.8-1.5g/kg using AdjBW 81kg) Fluid: 1ml/kcal Nutrition Intervention Change Diet Order: TF Nutrition Support: Nepro at 40ml/hr Flush with 150ml q4h Kcal 1,728 Protein (gm) 78 Fluid (mL) 698 Goal #1 Start TF when medically feasible Anticipated Discharge Needs: TF Follow-Up By: 09/30/20 Additional Comments F/U for PEG placement, TF consult
[2020-09-29] MEDS: LANSOPRAZOLE 30 MG SOLUTAB FEEDTUBE SCH (23:27)
[2020-09-30] MEDS: INSULIN LISPRO 100 UNIT/ML VIAL 3 mL SUB-Q SCH ×4 (00:31→18:23)
--- NOTE | 2020-09-30 07:22 | Post Anesthesia Evaluation ---
- Post Anesthesia Evaluation Patient Participated: Yes Airway Patent: Yes Stable Respiratory Function: Yes Nausea/Vomiting: No Temp > 96.8F: Yes Pain Manageable: Yes Adequeate Hydration: Yes Anesthesia Complications: No Block Receding Appropriately: Not Applicable Patient on Ventilator: No
[2020-09-30] MEDS: SODIUM CHLORIDE 0.9% 1000 ML 1,000 ML IV SCH (07:42)
--- NOTE | 2020-09-30 10:32 | Discharge Summary ---
Providers - Providers Date of Admission: 09/02/20 00:31 Attending physician: LATOYA PAREKH MD 09/01/20 23:30 Consult to Physician [CONS] Urgent Comment: Consulting Provider: JASVIR CEDILLO Physician Instructions: Reason For Exam: covid +, diarrhea, pneumonia 09/02/20 11:34 Consult to Physician [CONS] Routine Comment: Consulting Provider: CATHY RINCON Physician Instructions: Reason For Exam: DIRK and metabolic acidosis 09/03/20 07:55 Consult to Wound/ET Nurse [CONS] Routine Reason For Exam: wound eval 09/03/20 17:26 Consult to Physician [CONS] Routine Comment: Consulting Provider: FRANCY VELAZQUEZ Physician Instructions: Reason For Exam: Hematemesis 09/03/20 17:28 Consult to Physician [CONS] Routine Comment: Consulting Provider: SHORTY SALGUERO Physician Instructions: Reason For Exam: IVC filter 09/04/20 13:00 Consult to Physician [CONS] Routine Comment: dr, seen patient Consulting Provider: HANDY SOW Physician Instructions: Reason For Exam: gi bleed 09/11/20 06:41 Midline [Consult to PICC Line RN] [CONS] Urgent Reason For Exam: difficult stick Type Line:: Midline 09/11/20 15:59 Midline [Consult to PICC Line RN] [CONS] Stat Reason For Exam: ML replacedment Type Line:: Midline 09/12/20 13:17 Midline [Consult to PICC Line RN] [CONS] Stat Reason For Exam: need iv fluid and meds Type Line:: Midline 09/17/20 09:28 Physical Therapy Evaluation and Treat [CONS] Stat Comment: Reason For Exam: To eval mobility status 09/17/20 12:38 Consult to PICC Line RN [CONS] Routine Reason For Exam: vasopressin Type Line:: PICC 09/23/20 01:43 Speech Therapy Evaluation and Treat [CONS] Routine Reason For Exam: swallow evaluation 09/23/20 06:36 Consult to Wound/ET Nurse [CONS] Routine Reason For Exam: wound eval on sacrum 09/25/20 08:12 Speech Therapy Evaluation and Treat [CONS] Routine Reason For Exam: swallow eval- reval 09/26/20 11:11 Speech Therapy Evaluation and Treat [CONS] Stat Reason For Exam: Dr. Velazquez wants Repeat Speech Valentina 09/30/20 09:00 Consult to Dietitian/Nutrition [CONS] Routine Physician Instructions: new peg placed Reason For Exam: Reason for Consult: Write/Manage Tube Feeding Primary care physician: MILLER SUPERVISOR Hospitalization Reason for admission: covid pna Condition: Stable Hospital course: Brief History; 64 YO Female with HTN, DM, Anemia, PVD, Nicotine Dependence, positive coronavirus test recently at [place] presented to the emergency room for further evaluation. Patient states that she has experienced subjective fever, generalized weakness, body aches, shortness of breath, nausea, multiple loose stools, lower extremity edema over the past 1 week with progressively worsening symptoms over the past 3 to 4 days prior to presentation. Here, patient found to be hypotensive with a systolic blood pressure ranging from 53-94. Patient was also hypothermic with a body temperature of 93.3 F. Patient met criteria for sepsis protocol and found to have bilateral pneumonia, metabolic acidosis, acute kidney injury. Patient admitted to telemetry due to increased risk of multisystem decompensation. Patient initiated on coronavirus protocol. Coronavirus PCR has been ordered, Patient remained hypotensive in spite of IV fluid resuscitation therapy. Patient subsequently upgraded to IMCU. Her repeat COVID-19 test was positive. She was treated with dexamethasone daily for 10 days. Remdesivir could not be given because of worsening renal function. Did receive convalescent plasma. Patient was downgraded to MedSurg. Patient did have on and off delirium recovering restrain. But she was clinically improving and was planning for discharge. On 09/17 morning she developed cardiorespiratory arrest following a coffee-ground emesis. Patient was intubated and transferred to ICU, critical care was consulted, placed on pressor support for hypotension. Family updated and wanted to continue aggressi ve care. s/p extubation today. daily course: 09/03. While in the ER, patient had an ultrasound Doppler performed that showed bilateral DVT involving the iliac veins. Patient was started on heparin drip. ID consulted for COVID-19 and nephrology consulted for DIRK. Patient seen and examined at bedside this morning. She has no complaints this morning. Her hemoglobin dropped to 6.4 this morning. Patient will get transfused 1 unit of PRBCs. Later this p.m., was notified by nurse that patient is having tarry dark stool and hematemesis. Heparin drip discontinued. Pat ient started on PPI drip and made n.p.o. GI is has been consulted. Patient will need to have an upper endoscopy. She has bilateral lower extremity DVT and will need vascular surgery evaluation to determine if she is a candidate for IVC filter placement. 09/04. Patient seen and examined at bedside this morning. Labs reviewed showed hemoglobin 5.3. Patient will receive 2 units PRBCs. FFP also ordered. GI evaluation pending. Continue PPIs. Vascular surgeon to see to determine if patient is a candidate for IVC filter placement for DVT. 09/05. Hb stable this morning. GI on board. On PPI drip. 09/06. Gastroenterology and vascular surgery recommendations reviewed. Patient not a good candidate for IVC filter placement due to location of the clot/thrombosis. Plan is for patient to have anticoagulation on while monitoring hemoglobin. Patient's INR is more than 2 at this time so we will hold anticoagulation for now and monitor hemoglobin. Plan to initiate anticoagulation when INR is less than 2. We will preferably use heparin products as she has a high chance of bleeding. Continue to monitor hemoglobin. Hb 7.3 this a.m. 09/07. Hemoglobin 8.2 this AM. No clear signs of GI bleed. Her INR is 2.74. No need for initiation of AC for now as she INR is already therapeutic. Plan is to monitor for bleeding and if she remains stable, she will be started on anticoagulation for her bilateral DVT. Vascular surgery following-patient not a candidate for IVC catheter placement. GI recommendations appreciated 09/08: Patient is nonreactive to COVID-19 antibody, per ID order for c onvalescent plasma. Continue supportive care, follow clinically 09/09: Pending convalescent plasma transfusion, continue to follow inflammatory markers. Monitor H&H. Plan to start on aspirin tomorrow if INR and H&H stable 09/10: hb dropped to 6.8, transfuse one unit, discussed with GI - no plan for endoscopy now, cont to follow clinically 09/11: patient didn't get transfusion yesterday. became very agitated today, ordered as needed haldol, cont iv fluid. monitor clinically 09/12: placed on restrain o/n. cont supportive care, lost IV line - ordered for midline. pending PRBC transfusion 09/13: monitor h/h, patient more clam today, continue supportive care, follow BMP - Na and Cr has been improving 09/14: cont to monitor, follow BMP, follow h/h. oral intake improved per RN 09/15: If h/h stable and Cr cont to improves will d/c in a day or two 09/16; spoke with daughter and updated her with patient's clinical condition. family willing to accept the patient tomorrow. RN reported some Nose bleeding earlier today, but now resolved. repeat h/h stable 09/17: had respiratory/cardiac arrest this am. patient transferred to ICU. updated family. will get CT head, patient now intubated, start on bicarbonate drip 09/18; remains unresponsive, NG tube placed and noted bolld from the NG tube, discussed with GI - recommended PRBC/FFP transfusion. patient remains unresponsive w/o sedation and intubated. Called daughter and updated. 09/19: - Patient had OG tube with initial bloody secretions on insertion but currently with dark greenish output. No active bloody output from the OG tube. Rectal tube with dark greenish bilious output. No clear signs of active on-going GI bleeding. Off levophed. Continue to monitor H&H, transfuse as needed. Patient remains unresponsive without any sedation. Poor prognosis which I discussed with the family 09/20: cont supportive care, wean off vent as tolerated. Updated family by phone 09/21: s/p extubation today. Continue to assess mental status. Continue supportive care. We will stop the bicarbonate drip and start sodium bicarbonate with feeding tube. We will continue half-normal saline for now and monitor BMP daily, ordered speech eval. 09/22; patient was extubated yesterday, today doing well on nasal cannula oxygen, will request for swallow eval, and ordered diet as tolerated Will downgrade her to medical floor, she is still agitated will renew her restraints. Closely monitor DC planning per case management 09/23: Recurrent nosebleed. Rhino Rocket placed in the left nare. Afrin ordered twice daily. Aspiration precautions at this time. No worsening oxygen demand. Will monitor for additional 24 hours. Discharge planning from them. Discussed with nurses at bedside and also with patient. SCDs for DVT p rophylaxis discontinue chemical chemoprophylaxis. 09/24: No further bleeding, possible Rhino rocket was replaced as it looks different, continue Afrin, MONITOR H/H and PLT. 09/25: Clinically stable continue Afrin nose packing is out. Will reevaluate swallowing. Awaiting for cardiology clearance for possible PEG if continues to fail swallowing evaluation. Encourage movement as much as possible due to risk of dvt development. discussed with family 09/26; Continue supportive care, no further bleeding reported. will keep NPO midnight monday to monday for possible PEG placement patient still failed swallow evaluation per speech re-evaluation 'Received a repeat order for an evaluation. Patient was assessed on 09/23/20. NPO was recommended at the time due to her inability to participate and poor swallowing ability. Patient is unchanged from two days prior and is not appropriate for po consumption. She holds the bolus in the oral cavity and fails to initiate a swallow which places her at risk for aspiration. PEG placement is recommended for this patient. No further recommendations.' Due to labile BP will add patch of clonidine. 09/27: BP stable. Await reevaluation by speech and possible PEG placement prior to discharge. 09/28: Patient will need PEG placement patient still hypercoagulable with increased INR greater than 2 will give vitamin K and FFP and anticipate PEG placement tomorrow prior to discharge to SNF. 09/29 patient for PEG placement today AND CAN BE DISCHARGED IN AM, high risk for rebleed on anticoagulation. 09/30: SPOKE TO FAMILY SON AND DAUGHTER AND UPDATED ON PEG PLACEMENT AND DISCHARGE PLAN. ADVISED ON CARDIOLOGY FINDING ABOUT ANTICOAGULATION, RISK AND DOWNSIDE. -S/P Cardiorespiratory arrest on 09/17/20 Intubated on vent, pulmonary critical, cardiology following Patient was weaned and extubated yesterday Today patient is alert and awake on nasal cannula oxygen -- Acute delirium/acute metabolic encephalopathy Etiology unknown, likely initially was metabolic Significantly improved, neuro, psych consult as needed --Sepsis ;Due to COVID-19 pneumonia Received complete treatment,Blood culture NTD --Septic shock, status post pressor following cardiac arrest BP now stable, continue to monitor --COVID-19 pneumonia, POA Coronavirus protocol: Coronavirus PCR is positive, contact precaution, isolation precautions, prone positioning while in bed, Not a candidate for remdesivir due to renal failure Continue dexamethasone, s/p convalescent plasma --Acute on chronic anemia Due to chronic GI bleed and iron deficiency Status post transfusion of 3 units PRBC, PPI. Continue to monitor for GI bleed As per GI, does not look like patient is having GI bleed at this time Advance diet as tolerated --Possible GI bleed, chronic Advance diet, GI on board Recommended to manage medically --Acute kidney injury (DIRK) with acute tubular necrosis (ATN) Continue to monitor renal function Nephrology following closely --Hypernatremia Continue isotonic solution Nephrology on board --Bilateral lower extremity DVT, chronic Consulted vascular surgeon for consideration of IVC filter placement. As per vascular surgery, patient is not a good candidate for IVC filter placement INR 2.74. GI recommended to treat with aspirin only --Diabetes type II Accu-Chek sliding scale coverage ADA diet Insulin as needed --Ongoing tobacco use; Smoking cessation counseling Nicotine patch as needed --EPIXTASIS - Moderate Bilateral Pleural effusion, -- Acute hypoxic Respiratory failure --DVT prophylaxis, Anticoagulation --full code status Bedside swallow eval versus speech therapy swallow eval Patient is stable to be transferred out of ICU to medical floor. Physical therapy occupational therapy Disposition: [id number] HOME UNDER HOME [facility] Time spent for discharge: 35 mins Core Measure Documentation - Palliative Care Palliative Care/ Comfort Measures: Not Applicable - Core Measures Any of the following diagnoses?: none Exam - Physical Exam Narrative exam: General appearance: Present: no acute distress, well-nourished, - EENT Eyes: Present: PERRL, EOM intact, rhino rocket inplace. - Neck Neck: Present: supple, normal ROM - Respiratory Respiratory effort: normal Respiratory: bilateral: diminished, rhonchi, negative: rales, wheezing - Cardiovascular Rhythm: regular Heart Sounds: Present: S1 & S2 - Extremities Extremities: no ischemia, No edema - Abdominal General gastrointestinal: PEG tube in place, soft, non-tender, non-distended, normal bowel sounds - Integumentary Integumentary: Present: clear, warm - Psychiatric Psychiatric: appropriate mood/affect, cooperative - Neurologic Neurologic: moves all extremities - Patient Problems - Constitutional Vitals: Temp Pulse Resp BP Pulse Ox 98.4 F 76 16 157/84 98 09/30/20 03:45 09/30/20 03:45 09/30/20 03:45 09/30/20 03:45 09/30/20 03:45 Plan Activity: advance as tolerated, fall precautions Diet: per dietitian instruction Wound: per your surgeon's advice Special Instructions: record daily weights, record daily BP diary, record blood sugar diary, home oxygen via (nasal cannula @ 3 liters per minute) Additional Instructions: need to have repeat POTASSIUM LEVEL IN 3 DAYS Follow up with: PRIMARY CARE, [Primary Care Provider] - 3-5 Days RAAD PLUNKETT MD [Staff Physician] - 7 Days FLACA ALEXANDER MD [Staff Physician] - 7 Days CATHY RINCON MD [Staff Physician] - 7 Days Forms: Warfarin Discharge Instruction Prescriptions: Insulin Glargine [Lantus VIAL] 14 units SUB-Q QHS 30 Days amLODIPine 10 mg PO DAILY #60 tab Amoxicillin/Potassium Clav [Augmentin 875-125 Tablet] 1 each PO BID #5 tablet Loperamide [Imodium] 2 mg PO Q2H PRN #30 capsule PRN Reason: Diarrhea Sodium Polystyrene [Kionex] 15 gm PO QDAY 3 Days bottle Multivitamins Liq [Multiple Vitamin Liq (Theragran)] 5 ml PO QDAY #30 oral.liqd Lansoprazole Solutab [Prevacid Solutab] 30 mg FEEDTUBE BID #30 tab.rapdis Pantoprazole [Protonix TAB] 40 mg PO BIDAC #60 tablet calcitrioL [Rocaltrol] 0.5 mcg PO QDAY #30 capsule metOLazone [Zaroxolyn] 10 mg PO QDAY #30 tablet
[2020-09-30] MEDS ORDERED: SIMPLE SYRUP 15 ML FEEDTUBE PRN ×2 (11:03)
[2020-09-30] MEDS ORDERED: SODIUM BICARBONATE 325 MG TAB FEEDTUBE PRN (11:03)
[2020-09-30] MEDS ORDERED: LIPASE 10,500/PROTEASE 25,000/AMYLASE 43,750 (UNITS) DR CAP FEEDTUBE PRN (11:03)
--- NOTE | 2020-09-30 11:45 | Progress Note ---
Assessment and Plan 1. Acute kidney injury: DIRK secondary to combination of Vasomotor nephropathy and severe sepsis. Renal US negative for hydro. Monitor renal function, improving. Prior Creatinine was 1.2 in 2014. Likely CKD stage 4. Renal prognosis is guarded. Avoid nephrotoxic agents. Meds dosage based on GFR. 2. FEN: Hyperchloremic Metabolic acidosis, monitor. Hypernatremia, improved, monitor. Monitor lytes. Patient is not given any PO meds. 3. Nephrotic syndrome: Likely diabetic nephropathy. DEMARCUS, ANCA and GBM Ab are negative. Complements appears normal. SPEP; too small of M spike. 4. Severe sepsis, POA, now with shock: Off pressors. 5. S/p Cardiac arrest. 6. Severe COVID infection: Seen by ID. 7. Acute hypoxic resp failure: Intubated post-arrest. S/p extubated. 8. Bilateral LE DVT, POA. 9. Microcytic anemia, POA: S/p PRBC. Monitor. Seen by GI. 10. Thrombocytopenia, POA. 11. Acute diarrhea: Likely associated with COVID-19 infection. C. difficile test negative. Subjective: Patient was seen and examined at the bedside. Examination: General appearance: well-developed, appears stated age, no distress, mittens HEENT: JAYCE Neck: Trachea midline Respiratory: ctab Cardiology: regular, S1S2, no murmur Gastrointestinal: normoactive bowel sounds, no tenderness, not distended Integumentary: no obvious rash Neurologic: alert, moving extremities Ext: trace dependent edema, b/l BKA Subjective Date of service: 09/30/20 Principal diagnosis: Iron Def Anemia Objective - Vital Signs Vital signs: Vital Signs - 12hr 09/30/20 03:45 Temperature 98.4 F Pulse Rate 76 Respiratory 16 Rate Blood Pressure 157/84 O2 Sat by Pulse 98 Oximetry - Lab 09/29/20 06:25 09/30/20 13:07 Most recent lab results ABG pH 7.441 (7.320-7.450) 09/21/20 03:25 Calcium 8.1 mg/dL (8.4-10.2) L 09/29/20 06:25 Phosphorus 3.60 mg/dL (2.5-4.5) 09/25/20 15:25 Magnesium 2.20 mg/dL (1.7-2.3) 09/14/20 19:57 Urine Creatinine 43.2 mg/dL (0.1-20.0) H 09/06/20 06:52 Urine Sodium 84 mmol/L 09/06/20 06:52 Urine Total Protein 298 mg/dL (5-11.8) H 09/06/20 06:52 Medications & Allergies - Medications Allergies/Adverse Reactions: Allergies No Known Allergies Allergy (Unverified 02/14/14 19:23) Home Medications: Home Medications Medication Instructions Recorded Confirmed Last Taken Type Aspirin [[place] Aspirin] 81 mg PO DAILY 02/14/14 09/30/20 02/14/14 11:00 History Ferrous Sulfate [Feosol 325mg] 325 mg PO DAILY 02/14/14 09/30/20 02/14/14 11:00 History Sertraline [Zoloft] 50 mg PO DAILY 02/14/14 09/30/20 02/14/14 11:00 History hydroCHLOROthiazide 25 mg PO DAILY 02/14/14 09/30/20 02/14/14 11:00 History [Hydrochlorothiazide] Insulin Glargine [Lantus VIAL] 14 units SUB-Q QHS 30 Days 09/17/20 Unknown Rx Pantoprazole [Protonix TAB] 40 mg PO BIDAC #60 tablet 09/17/20 Unknown Rx calcitrioL [Rocaltrol] 0.5 mcg PO QDAY #30 capsule 09/17/20 Unknown Rx metOLazone [Zaroxolyn] 10 mg PO QDAY #30 tablet 09/17/20 Unknown Rx Lansoprazole Solutab [Prevacid 30 mg FEEDTUBE BID #30 tab.rapdis 09/30/20 Unknown Rx Solutab] Loperamide [Imodium] 2 mg PO Q2H PRN #30 capsule 09/30/20 Unknown Rx Multivitamins Liq [Multiple 5 ml PO QDAY #30 oral.liqd 09/30/20 Unknown Rx Vitamin Liq (Theragran)] amLODIPine 10 mg PO DAILY #60 tab 09/30/20 Unknown Rx Active Medications: Generic Name Dose Route Start Last Admin Trade Name Freq PRN Reason Stop Dose Admin Acetaminophen 650 mg 09/02/20 00:30 09/05/20 22:50 Tylenol PO 650 mg Q6H PRN Administration Pain, Mild (1-3) Amlodipine Besylate 10 mg 09/21/20 12:00 09/29/20 10:05 Amlodipine PO Not Given DAILY JAE Lipase/Protease/Amylase 1 each 09/30/20 11:03 Pancreshannan Mora 10,500 Unit FEEDTUBE PRN PRN For Clogged Feeding Tube Calcitriol 0.5 mcg 09/05/20 13:00 09/29/20 10:05 Rocaltrol PO Not Given QDAY JAE Clonidine HCl 0.1 mg 09/26/20 10:00 09/26/20 11:44 Catapres-Tts Patch TD 0.1 mg Sa JAE Administration Dextrose 50 ml 09/11/20 19:09 09/27/20 05:59 D50w (25gm) Syringe IV 50 ml Q30MIN PRN Administration Hypoglycemia Protocol Ferrous Sulfate 308 mg 09/21/20 10:00 09/29/20 10:05 Ferrous Sulfate FEEDTUBE Not Given DAILY JAE Haloperidol Lactate 5 mg 09/11/20 19:10 Haldol IM Q6H PRN Agitation Hydralazine HCl 10 mg 09/10/20 22:23 09/14/20 05:46 Apresoline IV 10 mg Q6H PRN Administration Blood Pressure Sodium Chloride 1,000 mls @ 50 mls/hr 09/29/20 13:45 09/30/20 07:42 Nacl 0.9% 1000 Ml IV 50 mls/hr DIRECT JAE Administration Insulin Human Lispro 0 unit 09/19/20 12:00 09/30/20 05:49 Humalog SUB-Q Not Given Q6HR JAE Protocol Lansoprazole 30 mg 09/29/20 23:00 09/29/20 23:27 Prevacid Solutab FEEDTUBE 30 mg BID JAE Administration Multivitamins 5 ml 09/18/20 10:00 09/29/20 10:05 Centrum Liq PO Not Given QDAY JAE Pantoprazole Sodium 40 mg 09/22/20 10:00 09/29/20 22:19 Protonix IV Not Given BID JAE Potassium Bicarbonate 50 meq 09/10/20 22:00 09/29/20 23:26 Klor-Con PO 50 meq BID JAE Administration Sertraline HCl 50 mg 09/02/20 10:00 09/29/20 10:05 Zoloft PO Not Given DAILY JAE Simple Syrup 15 ml 09/30/20 11:03 Simple Syrup FEEDTUBE PRN PRN Hypoglycemia Simple Syrup 30 ml 09/30/20 11:03 Simple Syrup FEEDTUBE PRN PRN Hypoglycemia Sodium Bicarbonate 325 mg 09/30/20 11:03 Sodium Bicarbonate FEEDTUBE PRN PRN For Clogged Feeding Tube Sodium Chloride 10 ml 09/02/20 10:00 09/29/20 23:27 Sodium Chloride Flush Syringe 10 Ml IV 10 ml BID JAE Administration Sodium Chloride 10 ml 09/02/20 00:30 Sodium Chloride Flush Syringe 10 Ml IV PRN PRN LINE FLUSH
[2020-09-30] MEDS: PANTOPRAZOLE 40 MG INJ IV SCH ×2 (11:51→21:49)
[2020-09-30] MEDS: MULTIVITAMINS 5 ML ORAL LIQUID PO SCH (11:52)
[2020-09-30] MEDS: CALCITRIOL 0.5 MCG CAP PO SCH (11:52)
[2020-09-30] MEDS: K-LYTE 25 MEQ TABLET EFF PO SCH ×2 (11:52→21:49)
[2020-09-30] MEDS: amLODIPine 10 MG TAB PO SCH (11:53)
[2020-09-30] MEDS: LANSOPRAZOLE 30 MG SOLUTAB FEEDTUBE SCH ×2 (11:54→21:49)
[2020-09-30] MEDS: SERTRALINE 50 MG TAB PO SCH (11:54)
[2020-09-30] MEDS: FERROUS SULFATE 308 MG (62mg Elemental Iron) / 7 ML ELIXIR FEEDTUBE SCH (11:55)
--- NOTE | 2020-09-30 13:48 | Gastroenterology Progress Note ---
Assessment and Plan oropharyngeal dysphagia - s/p egd/peg tube placement. tube feeds per nutrition recommendations. post peg care daily gastric/duodenal avm's - numerous seen on endoscopy without active bleeding; iron replacement therapy 2-3 times per day and monitor labs. will sign off, please call as needed Subjective Date of service: 09/30/20 Principal diagnosis: Iron Def Anemia, oropharyngeal dysphagia Interval history: no events overnight, denies abd pain Objective - Constitutional Vitals: Temp Pulse Resp BP Pulse Ox 98.4 F 76 16 157/84 99 09/30/20 03:45 09/30/20 03:45 09/30/20 03:45 09/30/20 03:45 09/30/20 11:49 General appearance: no acute distress, obese - Respiratory Respiratory effort: normal Respiratory: bilateral: CTA - Gastrointestinal General gastrointestinal: Present: soft, non-tender, other (peg tube site c/d/i, external bumper loosened at bedside) - Labs CBC & Chem 7: 09/29/20 06:25 09/29/20 06:25 Labs: Laboratory Results - last 24 hr 09/29/20 09/29/20 09/30/20 16:15 22:08 05:47 POC Glucose 131 H 122 H 119 H 09/30/20 09/30/20 08:12 11:32 POC Glucose 135 H 106 H
[2020-09-30 13:52] LABS: Calcium 8.1 mg/dL (8.4-10.2)
--- NOTE | 2020-09-30 20:23 | Progress Note ---
Assessment and Plan Assessment and plan: --S/P Cardiorespiratory arrest on 09/17/20 Intubated on vent, pulmonary critical, cardiology following Patient was weaned and extubated yesterday Today patient is alert and awake on nasal cannula oxygen -- Acute delirium/acute metabolic encephalopathy Etiology unknown, likely initially was metabolic Significantly improved, neuro, psych consult as needed --Sepsis ;Due to COVID-19 pneumonia Received complete treatment,Blood culture NTD --Septic shock, status post pressor following cardiac arrest BP now stable, continue to monitor --COVID-19 pneumonia, POA Coronavirus protocol: Coronavirus PCR is positive, contact precaution, isolation precautions, prone positioning while in bed, Not a candidate for remdesivir due to renal failure Continue dexamethasone, s/p convalescent plasma --Acute on chronic anemia Due to chronic GI bleed and iron deficiency Status post transfusion of 3 units PRBC, PPI. Continue to monitor for GI bleed As per GI, does not look like patient is having GI bleed at this time Advance diet as tolerated --Possible GI bleed, chronic Advance diet, GI on board Recommended to manage medically --Acute kidney injury (DIRK) with acute tubular necrosis (ATN) Continue to monitor renal function Nephrology following closely --Hypernatremia Continue isotonic solution Nephrology on board --Bilateral lower extremity DVT, chronic Consulted vascular surgeon for consideration of IVC filter placement. As per vascular surgery, patient is not a good candidate for IVC filter pl acement INR 2.74. GI recommended to treat with aspirin only --Diabetes type II Accu-Chek sliding scale coverage ADA diet Insulin as needed --Ongoing tobacco use; Smoking cessation counseling Nicotine patch as needed --EPIXTASIS --DVT prophylaxis, Anticoagulation --full code status Bedside swallow eval versus speech therapy swallow eval Patient is stable to be transferred out of ICU to medical floor. Physical therapy occupational therapy The high probability of a clinically significant, sudden or life threatening deterioration of the [[employer]ESS[employer]I PROGRAM DIRECTOR, CVS, respiratory, renal, GI] system(s) required my full and direct attention, intervention and personal management. The aggregate critical care time was [35] minutes. This time is in addition to time spent performing reported procedures but includes the following: [x] Data Review and interpretation [x] Patient assessment and monitoring of vital signs [x] Documentation [x] Medication orders and management Plan of care reviewed with the patient and her nurse Brief History; 64 YO Female with HTN, DM, Anemia, PVD, Nicotine Dependence, positive coronavirus test recently at [place] presented to the emergency room for further evaluation. Patient states that she has experienced subjective fever, generalized weakness, body aches, shortness of breath, nausea, multiple loose stools, lower extremity edema over the past 1 week with progressively worsening symptoms over the past 3 to 4 days prior to presentation. Here, patient found to be hypotensive with a systolic blood pressure ranging from 53-94. Patient was also hypothermic with a body temperature of 93.3 F. Patient met criteria for sepsis protocol and found to have bilateral pneumonia, metabolic acidosis, acute kidney injury. Patient admitted to telemetry due to increased risk of multisystem decompensation. Patient initiated on coronavirus protocol. Coronavirus PCR has been ordered, Patient remained hypotensive in spite of IV fluid resuscitation therapy. Patient subsequently upgraded to IMCU. Her repeat COVID-19 test was positive. She was treated with dexamethasone daily for 10 days. Remdesivir could not be given because of worsening renal function. Did receive convalescent plasma. Patient was downgraded to MedSurg. Patient did have on and off delirium recovering restrain. But she was clinically improving and was planning for discharge. On 09/17 morning she developed cardiorespiratory arrest following a coffee-ground emesis. Patient was intubated and transferred to ICU, critical care was consulted, placed on pressor support for hypotension. Family updated and wanted to continue aggressive care. s/p extubation today. daily course: 09/03. While in the ER, patient had an ultrasound Doppler performed that showed bilateral DVT involving the iliac veins. Patient was started on heparin drip. ID consulted for COVID-19 and nephrology consulted for DIRK. Patient seen and examined at bedside this morning. She has no complaints this morning. Her hemoglobin dropped to 6.4 this morning. Patient will get transfused 1 unit of PRBCs. Later this p.m., was notified by nurse that patient is having tarry dark stool and hematemesis. Heparin drip discontinued. Patient started on PPI drip and made n.p.o. GI is has been consulted. Patient will need to have an upper endoscopy. She has bilateral lower extremity DVT and will need vascular surgery evaluation to determine if she is a candidate for IVC filter placement. 09/04. Patient seen and examined at bedside this morning. Labs reviewed showed hemoglobin 5.3. Patient will receive 2 units PRBCs. FFP also ordered. GI evaluation pending. Continue PPIs. Vascular surgeon to see to determine if patient is a candidate for IVC filter placement for DVT. 09/05. Hb stable this morning. GI on board. On PPI drip. 09/06. Gastroenterology and vascular surgery recommendations reviewed. Patient not a good candidate for IVC filter placement due to location of the clot/thrombosis. Plan is for patient to have anticoagulation on while monitoring hemoglobin. Patient's INR is more than 2 at this time so we will hold anticoagulation for now and monitor hemoglobin. Plan to initiate anticoagulation when INR is less than 2. We will preferably use heparin products as she has a high chance of bleeding. Continue to monitor hemoglobin. Hb 7.3 this a.m. 09/07. Hemoglobin 8.2 this AM. No clear signs of GI bleed. Her INR is 2.74. No need for initiation of AC for now as she INR is already therapeutic. Plan is to monitor for bleeding and if she remains stable, she will be started on anticoagulation for her bilateral DVT. Vascular surgery following-patient not a candidate for IVC catheter placement. GI recommendations appreciated 09/08: Patient is nonreactive to COVID-19 antibody, per ID order for convalescent plasma. Continue supportive care, follow clinically 09/09: Pending convalescent plasma transfusion, continue to follow inflammatory markers. Monitor H&H. Plan to start on aspirin tomorrow if INR and H&H stable 09/10: hb dropped to 6.8, transfuse one unit, discussed with GI - no plan for endoscopy now, cont to follow clinically 09/11: patient didn't get transfusion yesterday. became very agitated today, ord ered as needed haldol, cont iv fluid. monitor clinically 09/12: placed on restrain o/n. cont supportive care, lost IV line - ordered for midline. pending PRBC transfusion 09/13: monitor h/h, patient more clam today, continue supportive care, follow BMP - Na and Cr has been improving 09/14: cont to monitor, follow BMP, follow h/h. oral intake improved per RN 09/15: If h/h stable and Cr cont to improves will d/c in a day or two 09/16; spoke with daughter and updated her with patient's clinical condition. family willing to accept the patient tomorrow. RN reported some Nose bleeding earlier today, but now resolved. repeat h/h stable 09/17: had respiratory/cardiac arrest this am. patient transferred to ICU. updated family. will get CT head, patient now intubated, start on bicarbonate drip 09/18; remains unresponsive, NG tube placed and noted bolld from the NG tube, discussed with GI - recommended PRBC/FFP transfusion. patient remains unresponsive w/o sedation and intubated. Called daughter and updated. 09/19: - Patient had OG tube with initial bloody secretions on insertion but currently with dark greenish output. No active bloody output from the OG tube. Rectal tube with dark greenish bilious output. No clear signs of active on-going GI bleeding. Off levophed. Continue to monitor H&H, transfuse as needed. Patient remains unresponsive without any sedation. Poor prognosis which I discussed with the family 09/20: cont supportive care, wean off vent as tolerated. Updated family by phone 09/21: s/p extubation today. Continue to assess mental status. Continue s upportive care. We will stop the bicarbonate drip and start sodium bicarbonate with feeding tube. We will continue half-normal saline for now and monitor BMP daily, ordered speech eval. 09/22; patient was extubated yesterday, today doing well on nasal cannula oxygen, will request for swallow eval, and ordered diet as tolerated Will downgrade her to medical floor, she is still agitated will renew her restraints. Closely monitor DC planning per case management 09/23: Recurrent nosebleed. Rhino Rocket placed in the left nare. Afrin ordered twice daily. Aspiration precautions at this time. No worsening oxygen demand. Will monitor for additional 24 hours. Discharge planning from them. Discussed with nurses at bedside and also with patient. SCDs for DVT prophylaxis discontinue chemical chemoprophylaxis. 09/24: No further bleeding, possible Rhino rocket was replaced as it looks d ifferent, continue Afrin, MONITOR H/H and PLT. 09/25: Clinically stable continue Afrin nose packing is out. Will reevaluate swallowing. Awaiting for cardiology clearance for possible PEG if continues to fail swallowing evaluation. Encourage movement as much as possible due to risk of dvt development. discussed with family 09/26; Continue supportive care, no further bleeding reported. will keep NPO midnight monday to monday for possible PEG placement patient still failed swallo w evaluation per speech re-evaluation 'Received a repeat order for an evaluation. Patient was assessed on 09/23/20. NPO was recommended at the time due to her inability to participate and poor swallowing ability. Patient is unchanged from two days prior and is not appropriate for po consumption. She holds the bolus in the oral cavity and fails to initiate a swallow which places her at risk for aspiration. PEG placement is recommended for this patient. No further recommendations.' Due to labile BP will add patch of clonidine. 09/27: BP stable. Await reevaluation by speech and possible PEG placement prior to discharge. 09/28: Patient will need PEG placement patient still hypercoagulable with increased INR greater than 2 will give vitamin K and FFP and anticipate PEG placement tomorrow prior to discharge to SNF. 09/29 Patient for PEG placement today AND CAN BE DISCHARGED IN AM, high risk for rebleed on anticoagulation. 09/30: Patient pending discharge. Tube feeds started today. Have discussed with the daughter and the son patient will be coming home. History Interval history: Patient seen and examined this morning, no worsening shortness of breath. No further nose bleed. Did get PEG with no problem Hospitalist Physical - Physical exam Narrative exam: General appearance: Present: no acute distress, well-nourished, chronically ill- appearing - EENT Eyes: Present: PERRL, EOM intact, rhino rocket inplace. - Neck Neck: Present: supple, normal ROM - Respiratory Respiratory effort: normal Respiratory: bilateral: diminished, rhonchi, negative: rales, wheezing - Cardiovascular Rhythm: regular Heart Sounds: Present: S1 & S2 - Extremities Extremities: no ischemia, No edema - Abdominal General gastrointestinal: soft, non-tender, non-distended, normal bowel sounds - Integumentary Integumentary: Present: clear, warm - Psychiatric Psychiatric: appropriate mood/affect, cooperative - Neurologic Neurologic: moves all extremities - Patient Problems - Constitutional Vitals: Temp Pulse Resp BP Pulse Ox 94.7 F L 52 L 22 137/70 100 09/30/20 16:48 09/30/20 16:48 09/30/20 16:48 09/30/20 16:48 09/30/20 16:48 General appearance: Present: no acute distress, well-nourished Results - Labs CBC & Chem 7: 09/29/20 06:25 09/30/20 13:07 Labs: Laboratory Last Values WBC 8.5 K/mm3 (4.5-11.0) 09/29/20 06:25 RBC 3.01 M/mm3 (3.65-5.03) L 09/29/20 06:25 Hgb 8.5 gm/dl (10.1-14.3) L 09/29/20 06:25 Hct 25.4 % (30.3-42.9) L 09/29/20 06:25 MCV 84 fl (79-97) 09/29/20 06:25 MCH 28 pg (28-32) 09/29/20 06:25 MCHC 33 % (30-34) 09/29/20 06:25 RDW 16.9 % (13.2-15.2) H 09/29/20 06:25 Plt Count 140 K/mm3 (140-440) 09/29/20 06:25 Lymph % (Auto) Route Delivery Driver 09/22/20 08:00 [place] % (Auto) Route Delivery Driver 09/22/20 08:00 Eos % (Auto) Route Delivery Driver 09/22/20 08:00 Baso % (Auto) Route Delivery Driver 09/22/20 08:00 Lymph # (Auto) Route Delivery Driver 09/22/20 08:00 [place] # (Auto) Route Delivery Driver 09/22/20 08:00 Eos # (Auto) 0.0 K/mm3 (0.0-0.4) 09/08/20 05:18 Baso # (Auto) 0.0 K/mm3 (0.0-0.1) 09/08/20 05:18 Add Manual Diff Complete 09/27/20 15:21 Total Counted 100 09/27/20 15:21 Seg Neutrophils % Route Delivery Driver 09/22/20 08:00 Seg Neuts % (Manual) 88.0 % (40.0-70.0) H 09/27/20 15:21 Band Neutrophils % 1.0 % 09/27/20 15:21 Lymphocytes % (Manual) 4.0 % (13.4-35.0) L 09/27/20 15:21 Reactive Lymphs % (Man) 0 % 09/27/20 15:21 Monocytes % (Manual) 5.0 % (0.0-7.3) 09/27/20 15:21 Eosinophils % (Manual) 0 % (0.0-4.3) 09/27/20 15:21 Basophils % (Manual) 0 % (0.0-1.8) 09/27/20 15:21 Metamyelocytes % 2.0 % 09/27/20 15:21 Myelocytes % 0 % 09/27/20 15:21 Promyelocytes % 0 % 09/27/20 15:21 Blast Cells % 0 % 09/27/20 15:21 Nucleated RBC % Not Reportable 09/27/20 15:21 Seg Neutrophils # 9.5 K/mm3 (1.8-7.7) H 09/08/20 05:18 Seg Neutrophils # Man 8.9 K/mm3 (1.8-7.7) H 09/27/20 15:21 Band Neutrophils # 0.1 K/mm3 09/27/20 15:21 Lymphocytes # (Manual) 0.4 K/mm3 (1.2-5.4) L 09/27/20 15:21 Abs React Lymphs (Man) 0.0 K/mm3 09/27/20 15:21 Monocytes # (Manual) 0.5 K/mm3 (0.0-0.8) 09/27/20 15:21 Eosinophils # (Manual) 0.0 K/mm3 (0.0-0.4) 09/27/20 15:21 Basophils # (Manual) 0.0 K/mm3 (0.0-0.1) 09/27/20 15:21 Metamyelocytes # 0.2 K/mm3 09/27/20 15:21 Myelocytes # 0.0 K/mm3 09/27/20 15:21 Promyelocytes # 0.0 K/mm3 09/27/20 15:21 Blast Cells # 0.0 K/mm3 09/27/20 15:21 WBC Morphology Not Reportable 09/27/20 15:21 Hypersegmented Neuts Not Reportable 09/27/20 15:21 Hyposegmented Neuts Not Reportable 09/27/20 15:21 Hypogranular Neuts Not Reportable 09/27/20 15:21 Smudge Cells Not Reportable 09/27/20 15:21 Toxic Granulation Not Reportable 11/29/20 15:21 Toxic Vacuolation Not Reportable 09/27/20 15:21 Dohle Bodies Not Reportable 09/27/20 15:21 Pelger-Huet Anomaly Not Reportable 09/27/20 15:21 Ignacia Rods Not Reportable 09/27/20 15:21 Platelet Estimate Consistent w auto 09/27/20 15:21 Clumped Platelets Not Reportable 09/27/20 15:21 Plt Clumps, EDTA Not Reportable 09/27/20 15:21 Large Platelets Not Reportable 09/27/20 15:21 Giant Platelets Not Reportable 09/27/20 15:21 Platelet Satelliting Not Reportable 09/27/20 15:21 Plt Morphology Comment Not Reportable 09/27/20 15:21 RBC Morphology Not Reportable 09/27/20 15:21 Dimorphic RBCs Not Reportable 09/27/20 15:21 Polychromasia Not Reportable 09/27/20 15:21 Hypochromasia Few 09/27/20 15:21 Poikilocytosis Few 09/27/20 15:21 Anisocytosis Not Reportable 09/27/20 15:21 Microcytosis Not Reportable 09/27/20 15:21 Macrocytosis Not Reportable 09/27/20 15:21 Spherocytes Not Reportable 09/27/20 15:21 Pappenheimer Bodies Not Reportable 09/27/20 15:21 Sickle Cells Not Reportable 09/27/20 15:21 Target Cells Not Reportable 09/27/20 15:21 Tear Drop Cells Rare 09/27/20 15:21 Ovalocytes Not Reportable 09/27/20 15:21 Helmet Cells Rare 09/27/20 15:21 [place] Bodies Not Reportable 09/27/20 15:21 [place] Rings Not Reportable 09/27/20 15:21 [place] Cells Rare 09/27/20 15:21 Bite Cells Not Reportable 09/27/20 15:21 Crenated Cell Not Reportable 09/27/20 15:21 Elliptocytes Not Reportable 09/27/20 15:21 Acanthocytes (Spur) Rare 09/27/20 15:21 Rouleaux Not Reportable 09/27/20 15:21 Hemoglobin C Crystals Not Reportable 09/27/20 15:21 Schistocytes Not Reportable 09/27/20 15:21 Malaria parasites Not Reportable 09/27/20 15:21 [place] Bodies Not Reportable 09/27/20 15:21 Hem Pathologist Commnt No 09/27/20 15:21 PT 17.5 Sec. (12.2-14.9) H 09/29/20 06:25 INR 1.45 (0.87-1.13) H 09/29/20 06:25 APTT 29.2 Sec. (24.2-36.6) 09/02/20 13:52 D-Dimer 1076.18 ng/mlDDU (0-234) H 09/01/20 21:55 Heparin Anti-Xa Level 0.94 U.I./ml (0.3-0.7) H 09/03/20 05:17 ABG pH 7.441 (7.320-7.450) 09/21/20 03:25 POC ABG pCO2 28.2 mmHg (32.0-48.0) L 09/21/20 03:25 POC ABG pO2 112.5 mmHg (83-108) H 09/21/20 03:25 POC ABG HCO3 18.8 09/21/20 03:25 POC ABG Base Excess -4.5 09/21/20 03:25 ABG Hemoglobin 9.4 (12.0-17.5) L 09/21/20 03:25 ABG Sodium 136.3 mmol/L (136.0-145.0) 09/21/20 03:25 ABG Potassium 4.4 mmol/L (3.40-4.50) 09/21/20 03:25 ABG Chloride 110.0 mmol/L (98-107) H 09/21/20 03:25 ABG Glucose 163 mg/dL (65-95) H 09/21/20 03:25 FiO2 40.0 09/21/20 03:25 Sodium 141 mmol/L (137-145) 09/30/20 13:07 Potassium 4.9 mmol/L (3.6-5.0) D 09/30/20 13:07 Chloride 109.0 mmol/L (98-107) H 09/30/20 13:07 Carbon Dioxide 24 mmol/L (22-30) 09/30/20 13:07 Anion Gap 13 mmol/L 09/30/20 13:07 BUN 38 mg/dL (7-17) H 09/30/20 13:07 Creatinine 1.6 mg/dL (0.6-1.2) H 09/30/20 13:07 Estimated GFR 39 ml/min 09/30/20 13:07 BUN/Creatinine Ratio 24 % 09/30/20 13:07 Glucose 141 mg/dL (65-100) H 09/30/20 13:07 POC Glucose 115 mg/dL (70-105) H 09/30/20 16:43 Lactic Acid 0.60 mmol/L (0.7-2.0) L 09/02/20 08:10 Calcium 8.1 mg/dL (8.4-10.2) L 09/30/20 13:07 Phosphorus 3.60 mg/dL (2.5-4.5) 09/25/20 15:25 Magnesium 2.20 mg/dL (1.7-2.3) 09/14/20 19:57 Iron 28 ug/dL (37-170) L 09/07/20 09:13 TIBC 188 mcg/dL (250-450) L 09/07/20 09:13 Ferritin 313.5 ng/mL (10.0-200.0) H 09/01/20 21:55 Total Bilirubin 0.70 mg/dL (0.1-1.2) 09/19/20 04:29 AST 29 units/L (5-40) 09/19/20 04:29 ALT 43 units/L (7-56) 09/19/20 04:29 Alkaline Phosphatase 185 units/L (35-129) H 09/19/20 04:29 Lactate Dehydrogenase 435 units/L (91-180) H 09/01/20 21:55 C-Reactive Protein 2.30 mg/dL (0.00-1.30) H 09/01/20 21:55 NT-Pro-B Natriuret Pep 73790 pg/mL (0-900) H 09/01/20 21:55 Serum Total Protein 4.3 g/dL (6.1-8.1) L 09/16/20 13:44 Total Protein 4.3 g/dL (6.3-8.2) L 09/19/20 04:29 Albumin 2.1 g/dL (3.9-5) L 09/19/20 04:29 Albumin/Globulin Ratio 1.0 % 09/19/20 04:29 Bvqeq-0-Bpdvywdie 0.5 g/dL (0.2-0.3) H 09/16/20 13:44 Qlujb-4-Yqorekfjf 0.6 g/dL (0.5-0.9) 09/16/20 13:44 Beta Globulins 0.3 g/dL (0.2-0.5) 09/16/20 13:44 Gamma Globulins 0.8 g/dL (0.8-1.7) 09/16/20 13:44 Abnorm Protein Band 1 see below 09/16/20 13:44 PEP Interpretation see below H 09/16/20 13:44 Vitamin B12 843.2 pg/mL (211-911) 09/07/20 09:13 Procalcitonin 0.10 ng/mL (<0.15) 09/01/20 21:55 TSH 0.735 mlU/mL (0.270-4.200) 09/02/20 00:45 Free T4 0.92 ng/dL (0.76-1.46) 09/02/20 00:45 Free T4 0.94 ng/dL (0.76-1.46) 09/02/20 00:45 PTH Intact 820.4 pg/mL (15-65) H 09/04/20 05:18 Arterial Blood Glucose 163 mg/dL (65-95) H 09/21/20 03:25 Arterial Blood Ionized Calcium 4.7 mg/dL (4.6-5.3) 09/21/20 03:25 Urine Color Elena (Yellow) 09/02/20 03:44 Urine Turbidity Cloudy (Clear) 09/02/20 03:44 Urine pH 7.0 (5.0-7.0) 09/02/20 03:44 Ur Specific [place] 1.015 (1.003-1.030) 09/02/20 03:44 Urine Protein >500 mg/dL (Negative) 09/02/20 03:44 Urine Glucose (UA) Neg mg/dL (Negative) 09/02/20 03:44 Urine Ketones Neg mg/dL (Negative) 09/02/20 03:44 Urine Blood Neg (Negative) 09/02/20 03:44 Urine Nitrite Neg (Negative) 09/02/20 03:44 Urine Bilirubin Neg (Negative) 09/02/20 03:44 Urine Urobilinogen < 2.0 mg/dL (<2.0) 09/02/20 03:44 Ur Leukocyte Esterase Neg (Negative) 09/02/20 03:44 Urine WBC (Auto) < 1.0 /HPF (0.0-6.0) 09/02/20 03:44 Urine RBC (Auto) < 1.0 /HPF (0.0-6.0) 09/02/20 03:44 U Epithel Cells (Auto) < 1.0 /HPF (0-13.0) 09/02/20 03:44 Urine Bacteria (Auto) 2+ /HPF (Negative) 09/02/20 03:44 Urine Mucus Few /HPF 09/02/20 03:44 Urine Creatinine 43.2 mg/dL (0.1-20.0) H 09/06/20 06:52 Protein/Creatinin Ratio 6.90 09/06/20 06:52 Urine Sodium 84 mmol/L 09/06/20 06:52 Urine Total Protein 298 mg/dL (5-11.8) H 09/06/20 06:52 DEMARCUS Screen Negative (Negative) 09/17/20 00:10 Proteinase 3 (PR3) Ab <1.0 AI (<1.0) 09/17/20 00:10 Myeloperoxidase Ab <1.0 AI (<1.0) 09/17/20 00:10 Glomerular Base Mem IgG See scanned result 09/16/20 13:44 Complement C3 82 mg/dL (83-193) L 09/17/20 00:10 Complement C4 26 mg/dL (15-57) 09/17/20 00:10 C. difficile Tox (PCR) Negative (Negative) 09/02/20 13:05 Coronavirus (PCR) Negative (Negative) 09/30/20 Unknown SARS-CoV-2 IgG Ab Nonreactive (NonReactive) 09/02/20 08:10 Blood Type O POSITIVE 09/17/20 13:49 Antibody Screen Negative 09/17/20 13:49 Crossmatch See Detail 09/17/20 13:49 - Diagnostic Impressions Diagnostic Impressions: Echocardiogram 09/22/20 13:29 Transthoracic Echocardiogram Indication: Cardiopulmonary arrest BP: 175/66 HR: 71 Conclusions *4-chamber dilated cardiomyopathy. *Global left ventricular systolic function is mildly decreased. *The estimated ejection fraction is 40-45%. *Mild concentric left ventricular hypertrophy is observed. *There is mild to moderate mitral regurgitation. *There is mild to moderate tricuspid regurgitation. *There is moderately-severe pulmonary hypertension. *The right ventricular systolic pressure is calculated at 62 mmHg. *There is a minimial pericardial effusion. Findings Left Ventricle: The left ventricular chamber size is mildly dilated. Mild concentric left ventricular hypertrophy is observed. Global left ventricular systolic function is mildly decreased. The estimated ejection fraction is 40-45%. Left Atrium: The left atrium is moderately dilated. Right Ventricle: The right ventricle is mildly dilated. The right ventricular global systolic function is mildly reduced. Right Atrium: The right atrium is moderately dilated. Aortic Valve: The aortic valve is trileaflet. The aortic valve leaflets are moderately thickened. There is no evidence of aortic regurgitation. There is no evidence of aortic stenosis. Mitral Valve: The mitral valve leaflets are mildly thickened. There is mild to moderate mitral regurgitation. There is no evidence of mitral stenosis. Tricuspid Valve: The tricuspid valve leaflets are normal. There is mild to moderate tricuspid regurgitation. The right ventricular systolic pressure is calculated at 62 mmHg. There is evidence of severe pulmonary hypertension. Pulmonic Valve: There is mild pulmonic regurgitation. Pericardium: There is a minimial pericardial effusion. Aorta: There is no dilatation of the ascending aorta. There is no dilatation of the aortic root. Venous: The inferior vena cava is dilated. Measurements Chambers 2D Name Value Normal Range IVSd (2D) 1.17 cm (0.6 - 1.1) LVPWd (2D) 1.15 cm (0.6 - 1.1) IVS:LVPW ratio (2D) 1.02 ratio - LVIDd (2D) 5 cm (3.7 - 5.6) LVIDs (2D) 3.71 cm (2 - 3.8) LV FS (Teichholz) (2D) 25.8 % - LV FS (cube) (2D) 25.8 % - EF Teichholz (2D) 50.4 % - Ao root diameter (2D) 2.6 cm (2 - 3.7) LA dimension (AP) 2D 5.1 cm (1.9 - 4) LA:Ao ratio (2D) 1.96 ratio - Volumes/Mass Name Value Normal Range LA ESV SP 4CH (MOD) 49 ml - LA ESV SP 2CH (MOD) 96 ml - LA ESV BP (MOD) 69 ml - LA ESV BP (MOD) index 33.2 ml/m2 - Diastolic/Systolic Function Name Value Normal Range MV E-wave Vmax 1.21 m/sec - MV deceleration time 254 msec - MV A-wave Vmax 1.12 m/sec - MV E:A ratio 1.1 ratio - Aortic Valve Name Value Normal Range AV VTI 31.1 cm - AV mean gradient 4 mmHg - LVOT diameter 2 cm - LVOT VTI 19.4 cm - LVOT mean gradient 2 mmHg - Mitral Valve Name Value Normal Range MV Vmax 1.44 m/sec - MV VTI 35.9 cm - MV peak gradient 8 mmHg - MV mean gradient 5 mmHg - MR Vmax 5.52 m/sec - Tricuspid Valve Name Value Normal Range TR Vmax 3.52 m/sec - TR peak gradient 50 mmHg - RVSP 62 mmHg - [place]/IV: Voiding Method Incontinent IV Catheter Type [Left Upper PICC Line arm] IV Catheter Type [Right INT / Saline Lock Forearm] IV Catheter Type [Left INT / Saline Lock Antecubital] IV Catheter Type [Right Hand] INT / Saline Lock IV Catheter Type [Right Upper Mid-line arm] IV Catheter Type [Right INT / Saline Lock External Jugular] Active Medications - Current Medications Current Medications: Generic Name Dose Route Start Last Admin Trade Name Georgiq PRN Reason Stop Dose Admin Acetaminophen 650 mg 09/02/20 00:30 09/05/20 22:50 Tylenol PO 650 mg Q6H PRN Administration Pain, Mild (1-3) Amlodipine Besylate 10 mg 09/21/20 12:00 09/30/20 11:53 Amlodipine PO 10 mg DAILY JAE Administration Lipase/Protease/Amylase 1 each 09/30/20 11:03 Maykel Mora 10,500 Unit FEEDTUBE PRN PRN For Clogged Feeding Tube Calcitriol 0.5 mcg 09/05/20 13:00 09/30/20 11:52 Rocaltrol PO 0.5 mcg QDAY JAE Administration Clonidine HCl 0.1 mg 09/26/20 10:00 09/26/20 11:44 Catapres-Tts Patch TD 0.1 mg Sa JAE Administration Dextrose 50 ml 09/11/20 19:09 09/27/20 05:59 D50w (25gm) Syringe IV 50 ml Q30MIN PRN Administration Hypoglycemia Protocol Ferrous Sulfate 308 mg 09/21/20 10:00 09/30/20 11:55 Ferrous Sulfate FEEDTUBE 308 mg DAILY JAE Administration Haloperidol Lactate 5 mg 09/11/20 19:10 Haldol IM Q6H PRN Agitation Hydralazine HCl 10 mg 09/10/20 22:23 09/14/20 05:46 Apresoline IV 10 mg Q6H PRN Administration Blood Pressure Sodium Chloride 1,000 mls @ 50 mls/hr 09/29/20 13:45 09/30/20 07:42 Nacl 0.9% 1000 Ml IV 50 mls/hr DIRECT JAE Administration Insulin Human Lispro 0 unit 09/19/20 12:00 09/30/20 18:23 Humalog SUB-Q Not Given Q6HR JAE Protocol Lansoprazole 30 mg 09/29/20 23:00 09/30/20 11:54 Prevacid Solutab FEEDTUBE 30 mg BID JAE Administration Loperamide HCl 2 mg 09/30/20 18:46 Imodium PO Q2H PRN Diarrhea Multivitamins 5 ml 09/18/20 10:00 09/30/20 11:52 Centrum Liq PO 5 ml QDAY JAE Administration Pantoprazole Sodium 40 mg 09/22/20 10:00 09/30/20 11:51 Protonix IV 40 mg BID JAE Administration Potassium Bicarbonate 50 meq 09/10/20 22:00 09/30/20 11:52 Klor-Con PO 50 meq BID JAE Administration Sertraline HCl 50 mg 09/02/20 10:00 09/30/20 11:54 Zoloft PO 50 mg DAILY JAE Administration Simple Syrup 15 ml 09/30/20 11:03 Simple Syrup FEEDTUBE PRN PRN Hypoglycemia Simple Syrup 30 ml 09/30/20 11:03 Simple Syrup FEEDTUBE PRN PRN Hypoglycemia Sodium Bicarbonate 325 mg 09/30/20 11:03 Sodium Bicarbonate FEEDTUBE PRN PRN For Clogged Feeding Tube Sodium Chloride 10 ml 09/02/20 10:00 09/30/20 11:54 Sodium Chloride Flush Syringe 10 Ml IV 10 ml BID JAE Administration Sodium Chloride 10 ml 09/02/20 00:30 Sodium Chloride Flush Syringe 10 Ml IV PRN PRN LINE FLUSH Nutrition/Malnutrition Assess - Dietary Evaluation Nutrition/Malnutrition Findings: Nutrition Notes Start: 09/03/20 13:19 Freq: Status: Active Protocol: Document 09/30/20 11:08 AT (Rec: 09/30/20 11:21 AT [email or web address]) Co-Sign 09/30/20 11:08 LM Nutrition Notes Need for Assessment generated from: MD Order Initial or Follow up Reassessment Current Diagnosis Acute Kidney Injury,CKD(stage I-IV),Diabetes,Sepsis Other Pertinent Diagnosis COVID-19 (+), pneu, anemia, bilat BKA, erosive esophagitis , sacral wound Current Diet TF Labs/Tests BUN 37 Cr 1.7 BG 154 Ca 8.1 Pertinent Medications Vitamin D Iron Potassium Height 5 ft 6 in Weight 103 kg [place] Body Weight (kg) 59.09 BMI 36.6 Weight Status Obese Subjective/Other Information TF Consult post-PEG placement. Burn Absent Trauma Absent Difficulty In Swallowing Current % PO Negligible Minimum of two criteria No physical signs of malnutrition #2 Nutrition Diagnosis Increased nutrient needs ( specify in comment below) Comments: protein Diagnosis Progress(for reassessment Continues documentation) #1 Nutrition Diagnosis Inadequate oral intake Diagnosis Progress(for reassessment Continues documentation) Is patient on ventilator? No Is Patient Ambulatory and/or Out of Bed No REE-([facility]-confined to bed) 1926.912 Kcal/Kg value to use for calculation 16 Approximate Energy Requirements Using 1648 kcal/Kg Calculation Used for Recommendations Kcal/kg Additional Notes Protein: 65-122g (0.8-1.5g/kg using AdjBW 81kg) Fluid: 1ml/kcal Nutrition Intervention Change Diet Order: Continue with TF Nutrition Support: Nepro 1.8 at 40mL/hr. Flush with 150 mL q4 hr Kcal 1,728 Protein (gm) 78 Fluid (mL) 698 Goal #1 Meet at least 75% of estimated energy and protein needs Goal #2 TF tolerance Anticipated Discharge Needs: TF Follow-Up By: 10/02/20 Additional Comments F/U for TF tolerance
[2020-10-01] MEDS: INSULIN LISPRO 100 UNIT/ML VIAL 3 mL SUB-Q SCH ×4 (00:28→17:39)
[2020-10-01] MEDS: SODIUM CHLORIDE 0.9% 1000 ML 1,000 ML IV SCH ×2 (01:27→22:28)
[2020-10-01 07:15] LABS: Calcium 8.1 mg/dL (8.4-10.2)
--- NOTE | 2020-10-01 08:48 | Progress Note ---
Assessment and Plan 1. Acute kidney injury: DIRK secondary to combination of Vasomotor nephropathy and severe sepsis. Renal US negative for hydro. Monitor renal function, improving. Prior Creatinine was 1.2 in 2014. Likely CKD stage 4. Renal prognosis is guarded. Avoid nephrotoxic agents. Meds dosage based on GFR. 2. FEN: Hyperchloremic Metabolic acidosis, monitor. Hypernatremia, improved, monitor. Monitor lytes. 3. Nephrotic syndrome: Likely diabetic nephropathy. DEMARCUS, ANCA and GBM Ab are negative. Complements appears normal. SPEP; too small of M spike. 4. Severe sepsis, POA, now with shock: Off pressors. 5. S/p Cardiac arrest. 6. Severe COVID infection: Seen by ID. 7. Acute hypoxic resp failure: Intubated post-arrest. S/p extubated. 8. Bilateral LE DVT, POA. 9. Microcytic anemia, POA: S/p PRBC. Monitor. Seen by GI. 10. Dysphagia: S/p PEG. 11. Thrombocytopenia, POA. Improved. F/u in 1-2 weeks. Subjective: Patient was seen and examined at the bedside. RN at the bedside. Examination: General appearance: well-developed, appears stated age, no distress HEENT: JAYCE Neck: Trachea midline Respiratory: ctab Cardiology: regular, S1S2, no murmur Gastrointestinal: normoactive bowel sounds, no tenderness Integumentary: no obvious rash Neurologic: alert, moving extremities Ext: trace dependent edema, b/l BKA Subjective Date of service: 10/01/20 Principal diagnosis: Iron Def Anemia Objective - Vital Signs Vital signs: Vital Signs - 12hr 09/30/20 09/30/20 10/01/20 22:00 22:09 05:22 Temperature 97.3 F L 97.2 F L Pulse Rate 70 67 Pulse Rate [ 78 Left Radial] Respiratory 20 20 18 Rate Blood Pressure 122/60 112/47 O2 Sat by Pulse 98 98 92 Oximetry - Lab 09/29/20 06:25 10/01/20 05:02 Most recent lab results ABG pH 7.441 (7.320-7.450) 09/21/20 03:25 Calcium 8.1 mg/dL (8.4-10.2) L 10/01/20 05:02 Phosphorus 3.60 mg/dL (2.5-4.5) 09/25/20 15:25 Magnesium 2.20 mg/dL (1.7-2.3) 09/14/20 19:57 Urine Creatinine 43.2 mg/dL (0.1-20.0) H 09/06/20 06:52 Urine Sodium 84 mmol/L 09/06/20 06:52 Urine Total Protein 298 mg/dL (5-11.8) H 09/06/20 06:52 Medications & Allergies - Medications Allergies/Adverse Reactions: Allergies No Known Allergies Allergy (Unverified 02/14/14 19:23) Home Medications: Home Medications Medication Instructions Recorded Confirmed Last Taken Type Aspirin [[place] Aspirin] 81 mg PO DAILY 02/14/14 09/30/20 02/14/14 11:00 History Ferrous Sulfate [Feosol 325mg] 325 mg PO DAILY 02/14/14 09/30/20 02/14/14 11:00 History Sertraline [Zoloft] 50 mg PO DAILY 02/14/14 09/30/20 02/14/14 11:00 History hydroCHLOROthiazide 25 mg PO DAILY 02/14/14 09/30/20 02/14/14 11:00 History [Hydrochlorothiazide] Insulin Glargine [Lantus VIAL] 14 units SUB-Q QHS 30 Days 09/17/20 Unknown Rx Pantoprazole [Protonix TAB] 40 mg PO BIDAC #60 tablet 09/17/20 Unknown Rx calcitrioL [Rocaltrol] 0.5 mcg PO QDAY #30 capsule 09/17/20 Unknown Rx metOLazone [Zaroxolyn] 10 mg PO QDAY #30 tablet 09/17/20 Unknown Rx Lansoprazole Solutab [Prevacid 30 mg FEEDTUBE BID #30 tab.rapdis 09/30/20 Unknown Rx Solutab] Loperamide [Imodium] 2 mg PO Q2H PRN #30 capsule 09/30/20 Unknown Rx Multivitamins Liq [Multiple 5 ml PO QDAY #30 oral.liqd 09/30/20 Unknown Rx Vitamin Liq (Theragran)] amLODIPine 10 mg PO DAILY #60 tab 09/30/20 Unknown Rx Active Medications: Generic Name Dose Route Start Last Admin Trade Name Freq PRN Reason Stop Dose Admin Acetaminophen 650 mg 09/02/20 00:30 09/05/20 22:50 Tylenol PO 650 mg Q6H PRN Administration Pain, Mild (1-3) Amlodipine Besylate 10 mg 09/21/20 12:00 09/30/20 11:53 Amlodipine PO 10 mg DAILY JAE Administration Lipase/Protease/Amylase 1 each 09/30/20 11:03 Maykel Mora 10,500 Unit FEEDTUBE PRN PRN For Clogged Feeding Tube Calcitriol 0.5 mcg 09/05/20 13:00 09/30/20 11:52 Rocaltrol PO 0.5 mcg QDAY JAE Administration Clonidine HCl 0.1 mg 09/26/20 10:00 09/26/20 11:44 Catapres-Tts Patch TD 0.1 mg Sa JAE Administration Dextrose 50 ml 09/11/20 19:09 09/27/20 05:59 D50w (25gm) Syringe IV 50 ml Q30MIN PRN Administration Hypoglycemia Protocol Ferrous Sulfate 308 mg 09/21/20 10:00 09/30/20 11:55 Ferrous Sulfate FEEDTUBE 308 mg DAILY JAE Administration Haloperidol Lactate 5 mg 09/11/20 19:10 Haldol IM Q6H PRN Agitation Hydralazine HCl 10 mg 09/10/20 22:23 09/14/20 05:46 Apresoline IV 10 mg Q6H PRN Administration Blood Pressure Sodium Chloride 1,000 mls @ 50 mls/hr 09/29/20 13:45 10/01/20 01:27 Nacl 0.9% 1000 Ml IV 50 mls/hr DIRECT JAE Administration Insulin Human Lispro 0 unit 09/19/20 12:00 10/01/20 06:01 Humalog SUB-Q 2 unit Q6HR JAE Administration Protocol Lansoprazole 30 mg 09/29/20 23:00 09/30/20 21:49 Prevacid Solutab FEEDTUBE 30 mg BID JAE Administration Loperamide HCl 2 mg 09/30/20 18:46 Imodium PO Q2H PRN Diarrhea Multivitamins 5 ml 09/18/20 10:00 09/30/20 11:52 Centrum Liq PO 5 ml QDAY JAE Administration Neomycin/Polymyxin/Bacitracin 1 applic 10/01/20 09:00 Triple Antibiotic TP 10/01/20 15:00 ONCE JAE Potassium Bicarbonate 50 meq 09/10/20 22:00 09/30/20 21:49 Klor-Con PO 50 meq BID JAE Administration Sertraline HCl 50 mg 09/02/20 10:00 09/30/20 11:54 Zoloft PO 50 mg DAILY JAE Administration Simple Syrup 15 ml 09/30/20 11:03 Simple Syrup FEEDTUBE PRN PRN Hypoglycemia Simple Syrup 30 ml 09/30/20 11:03 Simple Syrup FEEDTUBE PRN PRN Hypoglycemia Sodium Bicarbonate 325 mg 09/30/20 11:03 Sodium Bicarbonate FEEDTUBE PRN PRN For Clogged Feeding Tube Sodium Chloride 10 ml 09/02/20 10:00 09/30/20 21:50 Sodium Chloride Flush Syringe 10 Ml IV 10 ml BID JAE Administration Sodium Chloride 10 ml 09/02/20 00:30 Sodium Chloride Flush Syringe 10 Ml IV PRN PRN LINE FLUSH
[2020-10-01] MEDS ORDERED: NEOMY 3.5 MG/BACIT 400 UNITS/POLY B 5000 UNITS/GM OINT PACKET TP SCH (09:00)
[2020-10-01] MEDS: FERROUS SULFATE 308 MG (62mg Elemental Iron) / 7 ML ELIXIR FEEDTUBE SCH (09:16)
[2020-10-01] MEDS: CALCITRIOL 0.5 MCG CAP PO SCH (09:16)
[2020-10-01] MEDS: LANSOPRAZOLE 30 MG SOLUTAB FEEDTUBE SCH ×2 (09:16→22:28)
[2020-10-01] MEDS: SERTRALINE 50 MG TAB PO SCH (09:17)
[2020-10-01] MEDS: MULTIVITAMINS 5 ML ORAL LIQUID PO SCH (09:17)
[2020-10-01] MEDS: K-LYTE 25 MEQ TABLET EFF PO SCH (09:17)
[2020-10-01] MEDS: amLODIPine 10 MG TAB PO SCH (09:17)
[2020-10-01] MEDS: LOPERAMIDE 2 MG CAP PO PRN ×2 (09:19→17:55)
--- NOTE | 2020-10-01 14:27 | Cat Scan Report ---
CT angio chest INDICATION / CLINICAL INFORMATION: Shortness of breath. Rule out pulmonary embolus.. TECHNIQUE: Axial CT images were obtained through the chest after injection of IV contrast. 3 plane MIP and/or 3D reconstructions were produced. All CT scans at this location are performed using CT dose reduction f or ALARA by means of automated exposure control. COMPARISON: 09/17/2020 x-ray. FINDINGS: PULMONARY ARTERIES: No central pulmonary emboli. Respiratory motion degrades image quality obscuring the segmental and subsegmental pulmonary arteries. HEART: Small pericardial effusion. Heart is enlarged. MEDIASTINUM / JAMES: No significant abnormality. LUNGS: Interlobular septal thickening. Moderate bilateral pleural effusion. Bilateral atelectatic beverly nges. No pneumothorax. ADDITIONAL FINDINGS: Multinodular thyroid measuring up to 2 cm in the right lower pole. UPPER ABDOMEN: 2.6 cm left adrenal lesion and 1.3 cm right adrenal lesion with Hounsfield units less than 10 most consistent with an adenoma. There is a desiccation in the left adrenal gland which is ra re in the setting abdomen but given the Hounsfield units and is felt to most likely.. SKELETAL STRUCTURES: No significant osseous abnormality. IMPRESSION: 1. No CT evidence for pulmonary embolism. Respiratory motion degrades image quality decreasing the s ensitivity of this evaluation. The segmental and subsegmental pulmonary arteries are not well evaluat ed. 2. Cardiomegaly with moderate bilateral pleural effusions and interstitial edema. 3. Multinodular thyroid gland with the largest measuring up to 2 cm. Dedicated thyroid ultrasound is recommended. Signer Name: Elmer Selby MD Signed: 10/01/2020 2:22 PM Workstation Name: [id number]
--- NOTE | 2020-10-01 15:03 | Progress Note ---
Assessment and Plan Assessment and plan: --S/P Cardiorespiratory arrest on 09/17/20 Intubated on vent, pulmonary critical, cardiology following Patient was weaned and extubated yesterday Today patient is alert and awake on nasal cannula oxygen -- Acute delirium/acute metabolic encephalopathy Etiology unknown, likely initially was metabolic Significantly improved, neuro, psych consult as needed --Sepsis ;Due to COVID-19 pneumonia Received complete treatment,Blood culture NTD --Septic shock, status post pressor following cardiac arrest BP now stable, continue to monitor --COVID-19 pneumonia, POA Coronavirus protocol: Coronavirus PCR is positive, contact precaution, isolation precautions, prone positioning while in bed, Not a candidate for remdesivir due to renal failure Continue dexamethasone, s/p convalescent plasma --Acute on chronic anemia Due to chronic GI bleed and iron deficiency Status post transfusion of 3 units PRBC, PPI. Continue to monitor for GI bleed As per GI, does not look like patient is having GI bleed at this time Advance diet as tolerated --Possible GI bleed, chronic Advance diet, GI on board Recommended to manage medically --Acute kidney injury (DIRK) with acute tubular necrosis (ATN) Continue to monitor renal function Nephrology following closely --Hypernatremia Continue isotonic solution Nephrology on board --Bilateral lower extremity DVT, chronic Consulted vascular surgeon for consideration of IVC filter placement. As per vascular surgery, patient is not a good candidate for IVC filter pl acement INR 2.74. GI recommended to treat with aspirin only --Diabetes type II Accu-Chek sliding scale coverage ADA diet Insulin as needed --Ongoing tobacco use; Smoking cessation counseling Nicotine patch as needed --EPIXTASIS --DVT prophylaxis, Anticoagulation --full code status Bedside swallow eval versus speech therapy swallow eval Patient is stable to be transferred out of ICU to medical floor. Physical therapy occupational therapy The high probability of a clinically significant, sudden or life threatening deterioration of the [SPECIAL EDUCATION DIRECTOR, CVS, respiratory, renal, GI] system(s) required my full and direct attention, intervention and personal management. The aggregate critical care time was [35] minutes. This time is in addition to time spent performing reported procedures but includes the following: [x] Data Review and interpretation [x] Patient assessment and monitoring of vital signs [x] Documentation [x] Medication orders and management Plan of care reviewed with the patient and her nurse Brief History; 64 YO Female with HTN, DM, Anemia, PVD, Nicotine Dependence, positive coronavirus test recently at [place] presented to the emergency room for further evaluation. Patient states that she has experienced subjective fever, generalized weakness, body aches, shortness of breath, nausea, multiple loose stools, lower extremity edema over the past 1 week with progressively worsening symptoms over the past 3 to 4 days prior to presentation. Here, patient found to be hypotensive with a systolic blood pressure ranging from 53-94. Patient was also hypothermic with a body temperature of 93.3 F. Patient met criteria for sepsis protocol and found to have bilateral pneumonia, metabolic acidosis, acute kidney injury. Patient admitted to telemetry due to increased risk of multisystem decompensation. Patient initiated on coronavirus protocol. Coronavirus PCR has been ordered, Patient remained hypotensive in spite of IV fluid resuscitation therapy. Patient subsequently upgraded to IMCU. Her repeat COVID-19 test was positive. She was treated with dexamethasone daily for 10 days. Remdesivir could not be given because of worsening renal function. Did receive convalescent plasma. Patient was downgraded to MedSurg. Patient did have on and off delirium recovering restrain. But she was clinically improving and was planning for discharge. On 09/17 morning she developed cardiorespiratory arrest following a coffee-ground emesis. Patient was intubated and transferred to ICU, critical care was consulted, placed on pressor support for hypotension. Family updated and wanted to continue aggressive care. s/p extubation today. daily course: 09/03. While in the ER, patient had an ultrasound Doppler performed that showed bilateral DVT involving the iliac veins. Patient was started on heparin drip. ID consulted for COVID-19 and nephrology consulted for DIRK. Patient seen and examined at bedside this morning. She has no complaints this morning. Her hemoglobin dropped to 6.4 this morning. Patient will get transfused 1 unit of PRBCs. Later this p.m., was notified by nurse that patient is having tarry dark stool and hematemesis. Heparin drip discontinued. Patient started on PPI drip and made n.p.o. GI is has been consulted. Patient will need to have an upper endoscopy. She has bilateral lower extremity DVT and will need vascular surgery evaluation to determine if she is a candidate for IVC filter placement. 09/04. Patient seen and examined at bedside this morning. Labs reviewed showed hemoglobin 5.3. Patient will receive 2 units PRBCs. FFP also ordered. GI evaluation pending. Continue PPIs. Vascular surgeon to see to determine if patient is a candidate for IVC filter placement for DVT. 09/05. Hb stable this morning. GI on board. On PPI drip. 09/06. Gastroenterology and vascular surgery recommendations reviewed. Patient not a good candidate for IVC filter placement due to location of the clot/thrombosis. Plan is for patient to have anticoagulation on while monitoring hemoglobin. Patient's INR is more than 2 at this time so we will hold anticoagulation for now and monitor hemoglobin. Plan to initiate anticoagulation when INR is less than 2. We will preferably use heparin products as she has a high chance of bleeding. Continue to monitor hemoglobin. Hb 7.3 this a.m. 09/07. Hemoglobin 8.2 this AM. No clear signs of GI bleed. Her INR is 2.74. No need for initiation of AC for now as she INR is already therapeutic. Plan is to monitor for bleeding and if she remains stable, she will be started on anticoagulation for her bilateral DVT. Vascular surgery following-patient not a candidate for IVC catheter placement. GI recommendations appreciated 09/08: Patient is nonreactive to COVID-19 antibody, per ID order for convalescent plasma. Continue supportive care, follow clinically 09/09: Pending convalescent plasma transfusion, continue to follow inflammatory markers. Monitor H&H. Plan to start on aspirin tomorrow if INR and H&H stable 09/10: hb dropped to 6.8, transfuse one unit, discussed with GI - no plan for endoscopy now, cont to follow clinically 09/11: patient didn't get transfusion yesterday. became very agitated today, ord ered as needed haldol, cont iv fluid. monitor clinically 09/12: placed on restrain o/n. cont supportive care, lost IV line - ordered for midline. pending PRBC transfusion 09/13: monitor h/h, patient more clam today, continue supportive care, follow BMP - Na and Cr has been improving 09/14: cont to monitor, follow BMP, follow h/h. oral intake improved per RN 09/15: If h/h stable and Cr cont to improves will d/c in a day or two 09/16; spoke with daughter and updated her with patient's clinical condition. family willing to accept the patient tomorrow. RN reported some Nose bleeding earlier today, but now resolved. repeat h/h stable 09/17: had respiratory/cardiac arrest this am. patient transferred to ICU. updated family. will get CT head, patient now intubated, start on bicarbonate drip 09/18; remains unresponsive, NG tube placed and noted bolld from the NG tube, discussed with GI - recommended PRBC/FFP transfusion. patient remains unresponsive w/o sedation and intubated. Called daughter and updated. 09/19: - Patient had OG tube with initial bloody secretions on insertion but currently with dark greenish output. No active bloody output from the OG tube. Rectal tube with dark greenish bilious output. No clear signs of active on-going GI bleeding. Off levophed. Continue to monitor H&H, transfuse as needed. Patient remains unresponsive without any sedation. Poor prognosis which I discussed with the family 09/20: cont supportive care, wean off vent as tolerated. Updated family by phone 09/21: s/p extubation today. Continue to assess mental status. Continue s upportive care. We will stop the bicarbonate drip and start sodium bicarbonate with feeding tube. We will continue half-normal saline for now and monitor BMP daily, ordered speech eval. 09/22; patient was extubated yesterday, today doing well on nasal cannula oxygen, will request for swallow eval, and ordered diet as tolerated Will downgrade her to medical floor, she is still agitated will renew her restraints. Closely monitor DC planning per case management 09/23: Recurrent nosebleed. Rhino Rocket placed in the left nare. Afrin ordered twice daily. Aspiration precautions at this time. No worsening oxygen demand. Will monitor for additional 24 hours. Discharge planning from them. Discussed with nurses at bedside and also with patient. SCDs for DVT prophylaxis discontinue chemical chemoprophylaxis. 09/24: No further bleeding, possible Rhino rocket was replaced as it looks d ifferent, continue Afrin, MONITOR H/H and PLT. 09/25: Clinically stable continue Afrin nose packing is out. Will reevaluate swallowing. Awaiting for cardiology clearance for possible PEG if continues to fail swallowing evaluation. Encourage movement as much as possible due to risk of dvt development. discussed with family 09/26; Continue supportive care, no further bleeding reported. will keep NPO midnight monday to monday for possible PEG placement patient still failed swallo w evaluation per speech re-evaluation 'Received a repeat order for an evaluation. Patient was assessed on 09/23/20. NPO was recommended at the time due to her inability to participate and poor swallowing ability. Patient is unchanged from two days prior and is not appropriate for po consumption. She holds the bolus in the oral cavity and fails to initiate a swallow which places her at risk for aspiration. PEG placement is recommended for this patient. No further recommendations.' Due to labile BP will add patch of clonidine. 09/27: BP stable. Await reevaluation by speech and possible PEG placement prior to discharge. 09/28: Patient will need PEG placement patient still hypercoagulable with increased INR greater than 2 will give vitamin K and FFP and anticipate PEG placement tomorrow prior to discharge to SNF. 09/29 Patient for PEG placement today AND CAN BE DISCHARGED IN AM, high risk for rebleed on anticoagulation. 09/30: Patient pending discharge. Tube feeds started today. Have discussed with the daughter and the son patient will be coming home. 10/01: Patient noted hypoxia today, CT chest negative for PE. Restarted on oxygen and will be discharged on oxygen, FAMILY NOW REQUESTING PLACEMENT History Interval history: Patient seen and examined this morning, no worsening shortness of breath. No further nose bleed. Did get PEG with no problem, NOW ON TUBE FEED Hospitalist Physical - Physical exam Narrative exam: General appearance: Present: no acute distress, well-nourished, chronically ill- appearing - EENT Eyes: Present: PERRL, EOM intact, rhino rocket inplace. - Neck Neck: Present: supple, normal ROM - Respiratory Respiratory effort: normal Respiratory: bilateral: diminished, rhonchi, negative: rales, wheezing - Cardiovascular Rhythm: regular Heart Sounds: Present: S1 & S2 - Extremities Extremities: no ischemia, No edema - Abdominal General gastrointestinal: PEG tube in place, soft, non-tender, non-distended, normal bowel sounds - Integumentary Integumentary: Present: clear, warm - Psychiatric Psychiatric: appropriate mood/affect, cooperative - Neurologic Neurologic: moves all extremities - Patient Problems - Constitutional Vitals: Temp Pulse Resp BP Pulse Ox 98.0 F 74 20 115/48 92 10/01/20 11:52 10/01/20 11:52 10/01/20 11:52 10/01/20 11:52 10/01/20 11:52 General appearance: Present: no acute distress, well-nourished Results - Labs CBC & Chem 7: 09/29/20 06:25 10/01/20 05:02 Labs: Laboratory Last Values WBC 8.5 K/mm3 (4.5-11.0) 09/29/20 06:25 RBC 3.01 M/mm3 (3.65-5.03) L 09/29/20 06:25 Hgb 8.5 gm/dl (10.1-14.3) L 09/29/20 06:25 Hct 25.4 % (30.3-42.9) L 09/29/20 06:25 MCV 84 fl (79-97) 09/29/20 06:25 MCH 28 pg (28-32) 09/29/20 06:25 MCHC 33 % (30-34) 09/29/20 06:25 RDW 16.9 % (13.2-15.2) H 09/29/20 06:25 Plt Count 140 K/mm3 (140-440) 09/29/20 06:25 Lymph % (Auto) Dog Catcher 09/22/20 08:00 [place] % (Auto) Dog Catcher 09/22/20 08:00 Eos % (Auto) Dog Catcher 09/22/20 08:00 Baso % (Auto) Dog Catcher 09/22/20 08:00 Lymph # (Auto) Dog Catcher 09/22/20 08:00 [place] # (Auto) Dog Catcher 09/22/20 08:00 Eos # (Auto) 0.0 K/mm3 (0.0-0.4) 09/08/20 05:18 Baso # (Auto) 0.0 K/mm3 (0.0-0.1) 09/08/20 05:18 Add Manual Diff Complete 09/27/20 15:21 Total Counted 100 09/27/20 15:21 Seg Neutrophils % Dog Catcher 09/22/20 08:00 Seg Neuts % (Manual) 88.0 % (40.0-70.0) H 09/27/20 15:21 Band Neutrophils % 1.0 % 09/27/20 15:21 Lymphocytes % (Manual) 4.0 % (13.4-35.0) L 09/27/20 15:21 Reactive Lymphs % (Man) 0 % 09/27/20 15:21 Monocytes % (Manual) 5.0 % (0.0-7.3) 09/27/20 15:21 Eosinophils % (Manual) 0 % (0.0-4.3) 09/27/20 15:21 Basophils % (Manual) 0 % (0.0-1.8) 09/27/20 15:21 Metamyelocytes % 2.0 % 09/27/20 15:21 Myelocytes % 0 % 09/27/20 15:21 Promyelocytes % 0 % 09/27/20 15:21 Blast Cells % 0 % 09/27/20 15:21 Nucleated RBC % Not Reportable 09/27/20 15:21 Seg Neutrophils # 9.5 K/mm3 (1.8-7.7) H 09/08/20 05:18 Seg Neutrophils # Man 8.9 K/mm3 (1.8-7.7) H 09/27/20 15:21 Band Neutrophils # 0.1 K/mm3 09/27/20 15:21 Lymphocytes # (Manual) 0.4 K/mm3 (1.2-5.4) L 09/27/20 15:21 Abs React Lymphs (Man) 0.0 K/mm3 09/27/20 15:21 Monocytes # (Manual) 0.5 K/mm3 (0.0-0.8) 09/27/20 15:21 Eosinophils # (Manual) 0.0 K/mm3 (0.0-0.4) 09/27/20 15:21 Basophils # (Manual) 0.0 K/mm3 (0.0-0.1) 09/27/20 15:21 Metamyelocytes # 0.2 K/mm3 09/27/20 15:21 Myelocytes # 0.0 K/mm3 09/27/20 15:21 Promyelocytes # 0.0 K/mm3 09/27/20 15:21 Blast Cells # 0.0 K/mm3 09/27/20 15:21 WBC Morphology Not Reportable 09/27/20 15:21 Hypersegmented Neuts Not Reportable 09/27/20 15:21 Hyposegmented Neuts Not Reportable 09/27/20 15:21 Hypogranular Neuts Not Reportable 09/27/20 15:21 Smudge Cells Not Reportable 09/27/20 15:21 Toxic Granulation Not Reportable 09/27/20 15:21 Toxic Vacuolation Not Reportable 09/27/20 15:21 Dohle Bodies Not Reportable 09/27/20 15:21 Pelger-Huet Anomaly Not Reportable 09/27/20 15:21 Ignacia Rods Not Reportable 09/27/20 15:21 Platelet Estimate Consistent w auto 09/27/20 15:21 Clumped Platelets Not Reportable 09/27/20 15:21 Plt Clumps, EDTA Not Reportable 09/27/20 15:21 Large Platelets Not Reportable 09/27/20 15:21 Giant Platelets Not Reportable 09/27/20 15:21 Platelet Satelliting Not Reportable 09/27/20 15:21 Plt Morphology Comment Not Reportable 09/27/20 15:21 RBC Morphology Not Reportable 09/27/20 15:21 Dimorphic RBCs Not Reportable 09/27/20 15:21 Polychromasia Not Reportable 09/27/20 15:21 Hypochromasia Few 09/27/20 15:21 Poikilocytosis Few 09/27/20 15:21 Anisocytosis Not Reportable 09/27/20 15:21 Microcytosis Not Reportable 09/27/20 15:21 Macrocytosis Not Reportable 09/27/20 15:21 Spherocytes Not Reportable 09/27/20 15:21 Pappenheimer Bodies Not Reportable 09/27/20 15:21 Sickle Cells Not Reportable 09/27/20 15:21 Target Cells Not Reportable 09/27/20 15:21 Tear Drop Cells Rare 09/27/20 15:21 Ovalocytes Not Reportable 09/27/20 15:21 Helmet Cells Rare 09/27/20 15:21 Horvath-Glasford Bodies Not Reportable 09/27/20 15:21 Mills Rings Not Reportable 09/27/20 15:21 Flora Cells Rare 09/27/20 15:21 Bite Cells Not Reportable 09/27/20 15:21 Crenated Cell Not Reportable 09/27/20 15:21 Elliptocytes Not Reportable 09/27/20 15:21 Acanthocytes (Spur) Rare 11/29/20 15:21 Rouleaux Not Reportable 09/27/20 15:21 Hemoglobin C Crystals Not Reportable 09/27/20 15:21 Schistocytes Not Reportable 09/27/20 15:21 Malaria parasites Not Reportable 09/27/20 15:21 Molina Bodies Not Reportable 09/27/20 15:21 Hem Pathologist Commnt No 09/27/20 15:21 PT 17.5 Sec. (12.2-14.9) H 09/29/20 06:25 INR 1.45 (0.87-1.13) H 09/29/20 06:25 APTT 29.2 Sec. (24.2-36.6) 09/02/20 13:52 D-Dimer 1076.18 ng/mlDDU (0-234) H 09/01/20 21:55 Heparin Anti-Xa Level 0.94 U.I./ml (0.3-0.7) H 09/03/20 05:17 ABG pH 7.441 (7.320-7.450) 09/21/20 03:25 POC ABG pCO2 28.2 mmHg (32.0-48.0) L 09/21/20 03:25 POC ABG pO2 112.5 mmHg (83-108) H 09/21/20 03:25 POC ABG HCO3 18.8 09/21/20 03:25 POC ABG Base Excess -4.5 09/21/20 03:25 ABG Hemoglobin 9.4 (12.0-17.5) L 09/21/20 03:25 ABG Sodium 136.3 mmol/L (136.0-145.0) 09/21/20 03:25 ABG Potassium 4.4 mmol/L (3.40-4.50) 09/21/20 03:25 ABG Chloride 110.0 mmol/L (98-107) H 09/21/20 03:25 ABG Glucose 163 mg/dL (65-95) H 09/21/20 03:25 FiO2 40.0 09/21/20 03:25 Sodium 144 mmol/L (137-145) 10/01/20 05:02 Potassium 5.0 mmol/L (3.6-5.0) 10/01/20 05:02 Chloride 108.1 mmol/L (98-107) H 10/01/20 05:02 Carbon Dioxide 22 mmol/L (22-30) 10/01/20 05:02 Anion Gap 19 mmol/L 10/01/20 05:02 BUN 39 mg/dL (7-17) H 10/01/20 05:02 Creatinine 1.7 mg/dL (0.6-1.2) H 10/01/20 05:02 Estimated GFR 37 ml/min 10/01/20 05:02 BUN/Creatinine Ratio 23 % 10/01/20 05:02 Glucose 192 mg/dL (65-100) H 10/01/20 05:02 POC Glucose 181 mg/dL (70-105) H 10/01/20 11:51 Lactic Acid 0.60 mmol/L (0.7-2.0) L 09/02/20 08:10 Calcium 8.1 mg/dL (8.4-10.2) L 10/01/20 05:02 Phosphorus 3.60 mg/dL (2.5-4.5) 09/25/20 15:25 Magnesium 2.20 mg/dL (1.7-2.3) 09/14/20 19:57 Iron 28 ug/dL (37-170) L 09/07/20 09:13 TIBC 188 mcg/dL (250-450) L 09/07/20 09:13 Ferritin 313.5 ng/mL (10.0-200.0) H 09/01/20 21:55 Total Bilirubin 0.70 mg/dL (0.1-1.2) 09/19/20 04:29 AST 29 units/L (5-40) 09/19/20 04:29 ALT 43 units/L (7-56) 09/19/20 04:29 Alkaline Phosphatase 185 units/L (35-129) H 09/19/20 04:29 Lactate Dehydrogenase 435 units/L (91-180) H 09/01/20 21:55 C-Reactive Protein 2.30 mg/dL (0.00-1.30) H 09/01/20 21:55 NT-Pro-B Natriuret Pep 60571 pg/mL (0-900) H 09/01/20 21:55 Serum Total Protein 4.3 g/dL (6.1-8.1) L 09/16/20 13:44 Total Protein 4.3 g/dL (6.3-8.2) L 09/19/20 04:29 Albumin 2.1 g/dL (3.9-5) L 09/19/20 04:29 Albumin/Globulin Ratio 1.0 % 09/19/20 04:29 Cimel-4-Bofwhvehb 0.5 g/dL (0.2-0.3) H 09/16/20 13:44 Vcbbx-0-Krqyyagvn 0.6 g/dL (0.5-0.9) 09/16/20 13:44 Beta Globulins 0.3 g/dL (0.2-0.5) 09/16/20 13:44 Gamma Globulins 0.8 g/dL (0.8-1.7) 09/16/20 13:44 Abnorm Protein Band 1 see below 09/16/20 13:44 PEP Interpretation see below H 09/16/20 13:44 Vitamin B12 843.2 pg/mL (211-911) 09/07/20 09:13 Procalcitonin 0.10 ng/mL (<0.15) 09/01/20 21:55 TSH 0.735 mlU/mL (0.270-4.200) 09/02/20 00:45 Free T4 0.92 ng/dL (0.76-1.46) 09/02/20 00:45 Free T4 0.94 ng/dL (0.76-1.46) 09/02/20 00:45 PTH Intact 820.4 pg/mL (15-65) H 09/04/20 05:18 Arterial Blood Glucose 163 mg/dL (65-95) H 09/21/20 03:25 Arterial Blood Ionized Calcium 4.7 mg/dL (4.6-5.3) 09/21/20 03:25 Urine Color Elena (Yellow) 09/02/20 03:44 Urine Turbidity Cloudy (Clear) 09/02/20 03:44 Urine pH 7.0 (5.0-7.0) 09/02/20 03:44 Ur Specific [place] 1.015 (1.003-1.030) 09/02/20 03:44 Urine Protein >500 mg/dL (Negative) 09/02/20 03:44 Urine Glucose (UA) Neg mg/dL (Negative) 09/02/20 03:44 Urine Ketones Neg mg/dL (Negative) 09/02/20 03:44 Urine Blood Neg (Negative) 09/02/20 03:44 Urine Nitrite Neg (Negative) 09/02/20 03:44 Urine Bilirubin Neg (Negative) 09/02/20 03:44 Urine Urobilinogen < 2.0 mg/dL (<2.0) 09/02/20 03:44 Ur Leukocyte Esterase Neg (Negative) 09/02/20 03:44 Urine WBC (Auto) < 1.0 /HPF (0.0-6.0) 09/02/20 03:44 Urine RBC (Auto) < 1.0 /HPF (0.0-6.0) 09/02/20 03:44 U Epithel Cells (Auto) < 1.0 /HPF (0-13.0) 09/02/20 03:44 Urine Bacteria (Auto) 2+ /HPF (Negative) 09/02/20 03:44 Urine Mucus Few /HPF 09/02/20 03:44 Urine Creatinine 43.2 mg/dL (0.1-20.0) H 09/06/20 06:52 Protein/Creatinin Ratio 6.90 09/06/20 06:52 Urine Sodium 84 mmol/L 09/06/20 06:52 Urine Total Protein 298 mg/dL (5-11.8) H 09/06/20 06:52 DEMARCUS Screen Negative (Negative) 09/17/20 00:10 Proteinase 3 (PR3) Ab <1.0 AI (<1.0) 09/17/20 00:10 Myeloperoxidase Ab <1.0 AI (<1.0) 09/17/20 00:10 Glomerular Base Mem IgG See scanned result 09/16/20 13:44 Complement C3 82 mg/dL (83-193) L 09/17/20 00:10 Complement C4 26 mg/dL (15-57) 09/17/20 00:10 C. difficile Tox (PCR) Negative (Negative) 09/02/20 13:05 Coronavirus (PCR) Negative (Negative) 09/30/20 Unknown SARS-CoV-2 IgG Ab Nonreactive (NonReactive) 09/02/20 08:10 Blood Type O POSITIVE 09/17/20 13:49 Antibody Screen Negative 09/17/20 13:49 Crossmatch See Detail 09/17/20 13:49 - Diagnostic Impressions Diagnostic Impressions: Echocardiogram 09/22/20 13:29 Transthoracic Echocardiogram Indication: Cardiopulmonary arrest BP: 175/66 HR: 71 Conclusions *4-chamber dilated cardiomyopathy. *Global left ventricular systolic function is mildly decreased. *The estimated ejection fraction is 40-45%. *Mild concentric left ventricular hypertrophy is observed. *There is mild to moderate mitral regurgitation. *There is mild to moderate tricuspid regurgitation. *There is moderately-severe pulmonary hypertension. *The right ventricular systolic pressure is calculated at 62 mmHg. *There is a minimial pericardial effusion. Findings Left Ventricle: The left ventricular chamber size is mildly dilated. Mild concentric left ventricular hypertrophy is observed. Global left ventricular systolic function is mildly decreased. The estimated ejection fraction is 40-45%. Left Atrium: The left atrium is moderately dilated. Right Ventricle: The right ventricle is mildly dilated. The right ventricular global systolic function is mildly reduced. Right Atrium: The right atrium is moderately dilated. Aortic Valve: The aortic valve is trileaflet. The aortic valve leaflets are moderately thickened. There is no evidence of aortic regurgitation. There is no evidence of aortic stenosis. Mitral Valve: The mitral valve leaflets are mildly thickened. There is mild to moderate mitral regurgitation. There is no evidence of mitral stenosis. Tricuspid Valve: The tricuspid valve leaflets are normal. There is mild to moderate tricuspid regurgitation. The right ventricular systolic pressure is calculated at 62 mmHg. There is evidence of severe pulmonary hypertension. Pulmonic Valve: There is mild pulmonic regurgitation. Pericardium: There is a minimial pericardial effusion. Aorta: There is no dilatation of the ascending aorta. There is no dilatation of the aortic root. Venous: The inferior vena cava is dilated. Measurements Chambers 2D Name Value Normal Range IVSd (2D) 1.17 cm (0.6 - 1.1) LVPWd (2D) 1.15 cm (0.6 - 1.1) IVS:LVPW ratio (2D) 1.02 ratio - LVIDd (2D) 5 cm (3.7 - 5.6) LVIDs (2D) 3.71 cm (2 - 3.8) LV FS (Teichholz) (2D) 25.8 % - LV FS (cube) (2D) 25.8 % - EF Teichholz (2D) 50.4 % - Ao root diameter (2D) 2.6 cm (2 - 3.7) LA dimension (AP) 2D 5.1 cm (1.9 - 4) LA:Ao ratio (2D) 1.96 ratio - Volumes/Mass Name Value Normal Range LA ESV SP 4CH (MOD) 49 ml - LA ESV SP 2CH (MOD) 96 ml - LA ESV BP (MOD) 69 ml - LA ESV BP (MOD) index 33.2 ml/m2 - Diastolic/Systolic Function Name Value Normal Range MV E-wave Vmax 1.21 m/sec - MV deceleration time 254 msec - MV A-wave Vmax 1.12 m/sec - MV E:A ratio 1.1 ratio - Aortic Valve Name Value Normal Range AV VTI 31.1 cm - AV mean gradient 4 mmHg - LVOT diameter 2 cm - LVOT VTI 19.4 cm - LVOT mean gradient 2 mmHg - Mitral Valve Name Value Normal Range MV Vmax 1.44 m/sec - MV VTI 35.9 cm - MV peak gradient 8 mmHg - MV mean gradient 5 mmHg - MR Vmax 5.52 m/sec - Tricuspid Valve Name Value Normal Range TR Vmax 3.52 m/sec - TR peak gradient 50 mmHg - RVSP 62 mmHg - [place]/IV: Voiding Method Incontinent IV Catheter Type [Left Upper PICC Line arm] IV Catheter Type [Right INT / Saline Lock Forearm] IV Catheter Type [Left INT / Saline Lock Antecubital] IV Catheter Type [Right Hand] INT / Saline Lock IV Catheter Type [Right Upper Mid-line arm] IV Catheter Type [Right INT / Saline Lock External Jugular] Active Medications - Current Medications Current Medications: Generic Name Dose Route Start Last Admin Trade Name Freq PRN Reason Stop Dose Admin Acetaminophen 650 mg 09/02/20 00:30 09/05/20 22:50 Tylenol PO 650 mg Q6H PRN Administration Pain, Mild (1-3) Amlodipine Besylate 10 mg 09/21/20 12:00 10/01/20 09:17 Amlodipine PO 10 mg DAILY JAE Administration Lipase/Protease/Amylase 1 each 09/30/20 11:03 Pancreshannan Mora 10,500 Unit FEEDTUBE PRN PRN For Clogged Feeding Tube Calcitriol 0.5 mcg 09/05/20 13:00 10/01/20 09:16 Rocaltrol PO 0.5 mcg QDAY JAE Administration Clonidine HCl 0.1 mg 09/26/20 10:00 09/26/20 11:44 Catapres-Tts Patch TD 0.1 mg Sa JAE Administration Dextrose 50 ml 09/11/20 19:09 09/27/20 05:59 D50w (25gm) Syringe IV 50 ml Q30MIN PRN Administration Hypoglycemia Protocol Ferrous Sulfate 308 mg 09/21/20 10:00 10/01/20 09:16 Ferrous Sulfate FEEDTUBE 308 mg DAILY JAE Administration Haloperidol Lactate 5 mg 09/11/20 19:10 Haldol IM Q6H PRN Agitation Hydralazine HCl 10 mg 09/10/20 22:23 09/14/20 05:46 Apresoline IV 10 mg Q6H PRN Administration Blood Pressure Sodium Chloride 1,000 mls @ 50 mls/hr 09/29/20 13:45 10/01/20 01:27 Nacl 0.9% 1000 Ml IV 50 mls/hr DIRECT JAE Administration Insulin Human Lispro 0 unit 09/19/20 12:00 10/01/20 13:13 Humalog SUB-Q Not Given Q6HR JAE Protocol Lansoprazole 30 mg 09/29/20 23:00 10/01/20 09:16 Prevacid Solutab FEEDTUBE 30 mg BID JAE Administration Loperamide HCl 2 mg 09/30/20 18:46 10/01/20 09:19 Imodium PO 2 mg Q2H PRN Administration Diarrhea Multivitamins 5 ml 09/18/20 10:00 10/01/20 09:17 Centrum Liq PO 5 ml QDAY JAE Administration Sertraline HCl 50 mg 09/02/20 10:00 10/01/20 09:17 Zoloft PO 50 mg DAILY JAE Administration Simple Syrup 15 ml 09/30/20 11:03 Simple Syrup FEEDTUBE PRN PRN Hypoglycemia Simple Syrup 30 ml 09/30/20 11:03 Simple Syrup FEEDTUBE PRN PRN Hypoglycemia Sodium Bicarbonate 325 mg 09/30/20 11:03 Sodium Bicarbonate FEEDTUBE PRN PRN For Clogged Feeding Tube Sodium Chloride 10 ml 09/02/20 10:00 10/01/20 09:18 Sodium Chloride Flush Syringe 10 Ml IV 10 ml BID JAE Administration Sodium Chloride 10 ml 09/02/20 00:30 Sodium Chloride Flush Syringe 10 Ml IV PRN PRN LINE FLUSH Nutrition/Malnutrition Assess - Dietary Evaluation Nutrition/Malnutrition Findings: Nutrition Notes Start: 09/03/20 13:19 Freq: Status: Active Protocol: Document 09/30/20 11:08 AT (Rec: 09/30/20 11:21 AT [id number]) Co-Sign 09/30/20 11:08 LM Nutrition Notes Need for Assessment generated from: MD Order Initial or Follow up Reassessment Current Diagnosis Acute Kidney Injury,CKD(stage I-IV),Diabetes,Sepsis Other Pertinent Diagnosis COVID-19 (+), pneu, anemia, bilat BKA, erosive esophagitis , sacral wound Current Diet TF Labs/Tests BUN 37 Cr 1.7 BG 154 Ca 8.1 Pertinent Medications Vitamin D Iron Potassium Height 5 ft 6 in Weight 103 kg Evans Body Weight (kg) 59.09 BMI 36.6 Weight Status Obese Subjective/Other Information TF Consult post-PEG placement. Burn Absent Trauma Absent Difficulty In Swallowing Current % PO Negligible Minimum of two criteria No physical signs of malnutrition #2 Nutrition Diagnosis Increased nutrient needs ( specify in comment below) Comments: protein Diagnosis Progress(for reassessment Continues documentation) #1 Nutrition Diagnosis Inadequate oral intake Diagnosis Progress(for reassessment Continues documentation) Is patient on ventilator? No Is Patient Ambulatory and/or Out of Bed No REE-([facility]-confined to bed) 1926.912 Kcal/Kg value to use for calculation 16 Approximate Energy Requirements Using 1648 kcal/Kg Calculation Used for Recommendations Kcal/kg Additional Notes Protein: 65-122g (0.8-1.5g/kg using AdjBW 81kg) Fluid: 1ml/kcal Nutrition Intervention Change Diet Order: Continue with TF Nutrition Support: Nepro 1.8 at 40mL/hr. Flush with 150 mL q4 hr Kcal 1,728 Protein (gm) 78 Fluid (mL) 698 Goal #1 Meet at least 75% of estimated energy and protein needs Goal #2 TF tolerance Anticipated Discharge Needs: TF Follow-Up By: 10/02/20 Additional Comments F/U for TF tolerance
[2020-10-02] MEDS: INSULIN LISPRO 100 UNIT/ML VIAL 3 mL SUB-Q SCH ×4 (03:15→17:11)
[2020-10-02 06:44] LABS: Calcium 8.2 mg/dL (8.4-10.2)
[2020-10-02] MEDS ORDERED: SODIUM POLYSTYRENE 15 GM/60 ML ORAL LIQD PO NR ×2 (08:28→11:13)
[2020-10-02] MEDS: CALCITRIOL 0.5 MCG CAP PO SCH (10:04)
[2020-10-02] MEDS: MULTIVITAMINS 5 ML ORAL LIQUID PO SCH (10:04)
[2020-10-02] MEDS: FERROUS SULFATE 308 MG (62mg Elemental Iron) / 7 ML ELIXIR FEEDTUBE SCH (10:04)
[2020-10-02] MEDS: LANSOPRAZOLE 30 MG SOLUTAB FEEDTUBE SCH ×2 (10:05→21:28)
[2020-10-02] MEDS: SERTRALINE 50 MG TAB PO SCH (10:05)
[2020-10-02] MEDS: amLODIPine 10 MG TAB PO SCH (10:05)
--- NOTE | 2020-10-02 12:49 | Procedure Note ---
Date of procedure: 10/02/20 Pre-op diagnosis: left pleural effusioin Post-op diagnosis: same Procedure: US thoracentesis Findings: moderate pl eff Anesthesia: local Surgeon: SERGEI SALAS Estimated blood loss: none Pathology: list (120cc) Specimen disposition: to lab Condition: stable Disposition: floor
--- NOTE | 2020-10-02 13:08 | Progress Note ---
Assessment and Plan Assessment and plan: --S/P Cardiorespiratory arrest on 09/17/20 Intubated on vent, pulmonary critical, cardiology following Patient was weaned and extubated yesterday Today patient is alert and awake on nasal cannula oxygen -- Acute delirium/acute metabolic encephalopathy Etiology unknown, likely initially was metabolic Significantly improved, neuro, psych consult as needed --Sepsis ;Due to COVID-19 pneumonia Received complete treatment,Blood culture NTD --Septic shock, status post pressor following cardiac arrest BP now stable, continue to monitor --COVID-19 pneumonia, POA Coronavirus protocol: Coronavirus PCR is positive, contact precaution, isolation precautions, prone positioning while in bed, Not a candidate for remdesivir due to renal failure Continue dexamethasone, s/p convalescent plasma --Acute on chronic anemia Due to chronic GI bleed and iron deficiency Status post transfusion of 3 units PRBC, PPI. Continue to monitor for GI bleed As per GI, does not look like patient is having GI bleed at this time Advance diet as tolerated --Possible GI bleed, chronic Advance diet, GI on board Recommended to manage medically --Acute kidney injury (DIRK) with acute tubular necrosis (ATN) Continue to monitor renal function Nephrology following closely --Hypernatremia Continue isotonic solution Nephrology on board --Bilateral lower extremity DVT, chronic Consulted vascular surgeon for consideration of IVC filter placement. As per vascular surgery, patient is not a good candidate for IVC filter pl acement INR 2.74. GI recommended to treat with aspirin only --Diabetes type II Accu-Chek sliding scale coverage ADA diet Insulin as needed --Ongoing tobacco use; Smoking cessation counseling Nicotine patch as needed --EPIXTASIS --DVT prophylaxis, Anticoagulation --full code status Bedside swallow eval versus speech therapy swallow eval Patient is stable to be transferred out of ICU to medical floor. Physical therapy occupational therapy The high probability of a clinically significant, sudden or life threatening deterioration of the [HELP DESK MANAGER, CVS, respiratory, renal, GI] system(s) required my full and direct attention, intervention and personal management. The aggregate critical care time was [35] minutes. This time is in addition to time spent performing reported procedures but includes the following: [x] Data Review and interpretation [x] Patient assessment and monitoring of vital signs [x] Documentation [x] Medication orders and management Plan of care reviewed with the patient and her nurse Brief History; 64 YO Female with HTN, DM, Anemia, PVD, Nicotine Dependence, positive coronavirus test recently at [facility] presented to the emergency room for further evaluation. Patient states that she has experienced subjective fever, generalized weakness, body aches, shortness of breath, nausea, multiple loose stools, lower extremity edema over the past 1 week with progressively worsening symptoms over the past 3 to 4 days prior to presentation. Here, patient found to be hypotensive with a systolic blood pressure ranging from 53-94. Patient was also hypothermic with a body temperature of 93.3 F. Patient met criteria for sepsis protocol and found to have bilateral pneumonia, metabolic acidosis, acute kidney injury. Patient admitted to telemetry due to increased risk of multisystem decompensation. Patient initiated on coronavirus protocol. Coronavirus PCR has been ordered, Patient remained hypotensive in spite of IV fluid resuscitation therapy. Patient subsequently upgraded to IMCU. Her repeat COVID-19 test was positive. She was treated with dexamethasone daily for 10 days. Remdesivir could not be given because of worsening renal function. Did receive convalescent plasma. Patient was downgraded to MedSurg. Patient did have on and off delirium recovering restrain. But she was clinically improving and was planning for discharge. On 09/17 morning she developed cardiorespiratory arrest following a coffee-ground emesis. Patient was intubated and transferred to ICU, critical care was consulted, placed on pressor support for hypotension. Family updated and wanted to continue aggressive care. s/p extubation today. daily course: 09/03. While in the ER, patient had an ultrasound Doppler performed that showed bilateral DVT involving the iliac veins. Patient was started on heparin drip. ID consulted for COVID-19 and nephrology consulted for DIRK. Patient seen and examined at bedside this morning. She has no complaints this morning. Her hemoglobin dropped to 6.4 this morning. Patient will get transfused 1 unit of PRBCs. Later this p.m., was notified by nurse that patient is having tarry dark stool and hematemesis. Heparin drip discontinued. Patient started on PPI drip and made n.p.o. GI is has been consulted. Patient will need to have an upper endoscopy. She has bilateral lower extremity DVT and will need vascular surgery evaluation to determine if she is a candidate for IVC filter placement. 09/04. Patient seen and examined at bedside this morning. Labs reviewed showed hemoglobin 5.3. Patient will receive 2 units PRBCs. FFP also ordered. GI evaluation pending. Continue PPIs. Vascular surgeon to see to determine if patient is a candidate for IVC filter placement for DVT. 09/05. Hb stable this morning. GI on board. On PPI drip. 09/06. Gastroenterology and vascular surgery recommendations reviewed. Patient not a good candidate for IVC filter placement due to location of the clot/thrombosis. Plan is for patient to have anticoagulation on while monitoring hemoglobin. Patient's INR is more than 2 at this time so we will hold anticoagulation for now and monitor hemoglobin. Plan to initiate anticoagulation when INR is less than 2. We will preferably use heparin products as she has a high chance of bleeding. Continue to monitor hemoglobin. Hb 7.3 this a.m. 09/07. Hemoglobin 8.2 this AM. No clear signs of GI bleed. Her INR is 2.74. No need for initiation of AC for now as she INR is already therapeutic. Plan is to monitor for bleeding and if she remains stable, she will be started on anticoagulation for her bilateral DVT. Vascular surgery following-patient not a candidate for IVC catheter placement. GI recommendations appreciated 09/08: Patient is nonreactive to COVID-19 antibody, per ID order for convalescent plasma. Continue supportive care, follow clinically 09/09: Pending convalescent plasma transfusion, continue to follow inflammatory markers. Monitor H&H. Plan to start on aspirin tomorrow if INR and H&H stable 09/10: hb dropped to 6.8, transfuse one unit, discussed with GI - no plan for endoscopy now, cont to follow clinically 09/11: patient didn't get transfusion yesterday. became very agitated today, ord ered as needed haldol, cont iv fluid. monitor clinically 09/12: placed on restrain o/n. cont supportive care, lost IV line - ordered for midline. pending PRBC transfusion 09/13: monitor h/h, patient more clam today, continue supportive care, follow BMP - Na and Cr has been improving 09/14: cont to monitor, follow BMP, follow h/h. oral intake improved per RN 09/15: If h/h stable and Cr cont to improves will d/c in a day or two 09/16; spoke with daughter and updated her with patient's clinical condition. family willing to accept the patient tomorrow. RN reported some Nose bleeding earlier today, but now resolved. repeat h/h stable 09/17: had respiratory/cardiac arrest this am. patient transferred to ICU. updated family. will get CT head, patient now intubated, start on bicarbonate drip 09/18; remains unresponsive, NG tube placed and noted bolld from the NG tube, discussed with GI - recommended PRBC/FFP transfusion. patient remains unresponsive w/o sedation and intubated. Called daughter and updated. 09/19: - Patient had OG tube with initial bloody secretions on insertion but currently with dark greenish output. No active bloody output from the OG tube. Rectal tube with dark greenish bilious output. No clear signs of active on-going GI bleeding. Off levophed. Continue to monitor H&H, transfuse as needed. Patient remains unresponsive without any sedation. Poor prognosis which I discussed with the family 09/20: cont supportive care, wean off vent as tolerated. Updated family by phone 09/21: s/p extubation today. Continue to assess mental status. Continue s upportive care. We will stop the bicarbonate drip and start sodium bicarbonate with feeding tube. We will continue half-normal saline for now and monitor BMP daily, ordered speech eval. 09/22; patient was extubated yesterday, today doing well on nasal cannula oxygen, will request for swallow eval, and ordered diet as tolerated Will downgrade her to medical floor, she is still agitated will renew her restraints. Closely monitor DC planning per case management 09/23: Recurrent nosebleed. Rhino Rocket placed in the left nare. Afrin ordered twice daily. Aspiration precautions at this time. No worsening oxygen demand. Will monitor for additional 24 hours. Discharge planning from them. Discussed with nurses at bedside and also with patient. SCDs for DVT prophylaxis discontinue chemical chemoprophylaxis. 09/24: No further bleeding, possible Rhino rocket was replaced as it looks d ifferent, continue Afrin, MONITOR H/H and PLT. 09/25: Clinically stable continue Afrin nose packing is out. Will reevaluate swallowing. Awaiting for cardiology clearance for possible PEG if continues to fail swallowing evaluation. Encourage movement as much as possible due to risk of dvt development. discussed with family 09/26; Continue supportive care, no further bleeding reported. will keep NPO midnight monday to monday for possible PEG placement patient still failed swallo w evaluation per speech re-evaluation 'Received a repeat order for an evaluation. Patient was assessed on 09/23/20. NPO was recommended at the time due to her inability to participate and poor swallowing ability. Patient is unchanged from two days prior and is not appropriate for po consumption. She holds the bolus in the oral cavity and fails to initiate a swallow which places her at risk for aspiration. PEG placement is recommended for this patient. No further recommendations.' Due to labile BP will add patch of clonidine. 09/27: BP stable. Await reevaluation by speech and possible PEG placement prior to discharge. 09/28: Patient will need PEG placement patient still hypercoagulable with increased INR greater than 2 will give vitamin K and FFP and anticipate PEG placement tomorrow prior to discharge to SNF. 09/29 Patient for PEG placement today AND CAN BE DISCHARGED IN AM, high risk for rebleed on anticoagulation. 09/30: Patient pending discharge. Tube feeds started today. Have discussed with the daughter and the son patient will be coming home. 10/01: Patient noted hypoxia today, CT chest negative for PE. Restarted on oxygen and will be discharged on oxygen, FAMILY NOW REQUESTING PLACEMENT 10/02: Patient underwent thoracentesis today with no complications. Will recheck oxygen saturation in a.m. to see if thoracentesis did make a difference will follow results. Chest x-ray reviewed shows improved aeration. Tube feed changed to Osmolite. Patient also noted with hyperkalemia Kayexalate was given will recheck in a.m. Discharge is pending arrangement of all home devices. Family has fluctuated back and forth as to taking patient home versus placement. History Interval history: Patient seen and examined this morning, no new complaints patient went for thoracentesis today with no complication but aeration noted after. Hospitalist Physical - Physical exam Narrative exam: General appearance: Present: no acute distress, well-nourished, chronically ill- appearing - EENT Eyes: Present: PERRL, EOM intact, rhino rocket inplace. - Neck Neck: Present: supple, normal ROM - Respiratory Respiratory effort: normal Respiratory: bilateral: diminished, rhonchi, negative: rales, wheezing - Cardiovascular Rhythm: regular Heart Sounds: Present: S1 & S2 - Extremities Extremities: no ischemia, No edema - Abdominal General gastrointestinal: PEG tube in place, soft, non-tender, non-distended, normal bowel sounds - Integumentary Integumentary: Present: clear, warm - Psychiatric Psychiatric: appropriate mood/affect, cooperative - Neurologic Neurologic: moves all extremities - Patient Problems - Constitutional Vitals: Temp Pulse Resp BP Pulse Ox 98.6 F 69 18 120/42 94 10/02/20 03:57 10/02/20 03:57 10/02/20 03:57 10/02/20 03:57 10/02/20 03:57 General appearance: Present: no acute distress, well-nourished Results - Labs CBC & Chem 7: 09/29/20 06:25 10/02/20 15:25 Labs: Laboratory Last Values WBC 8.5 K/mm3 (4.5-11.0) 09/29/20 06:25 RBC 3.01 M/mm3 (3.65-5.03) L 09/29/20 06:25 Hgb 8.5 gm/dl (10.1-14.3) L 09/29/20 06:25 Hct 25.4 % (30.3-42.9) L 09/29/20 06:25 MCV 84 fl (79-97) 09/29/20 06:25 MCH 28 pg (28-32) 09/29/20 06:25 MCHC 33 % (30-34) 09/29/20 06:25 RDW 16.9 % (13.2-15.2) H 09/29/20 06:25 Plt Count 140 K/mm3 (140-440) 09/29/20 06:25 Lymph % (Auto) Stave Inspector 09/22/20 08:00 [place] % (Auto) Stave Inspector 09/22/20 08:00 Eos % (Auto) Stave Inspector 09/22/20 08:00 Baso % (Auto) Stave Inspector 09/22/20 08:00 Lymph # (Auto) Stave Inspector 09/22/20 08:00 [place] # (Auto) Stave Inspector 09/22/20 08:00 Eos # (Auto) 0.0 K/mm3 (0.0-0.4) 09/08/20 05:18 Baso # (Auto) 0.0 K/mm3 (0.0-0.1) 09/08/20 05:18 Add Manual Diff Complete 09/27/20 15:21 Total Counted 100 09/27/20 15:21 Seg Neutrophils % Stave Inspector 09/22/20 08:00 Seg Neuts % (Manual) 88.0 % (40.0-70.0) H 09/27/20 15:21 Band Neutrophils % 1.0 % 09/27/20 15:21 Lymphocytes % (Manual) 4.0 % (13.4-35.0) L 09/27/20 15:21 Reactive Lymphs % (Man) 0 % 09/27/20 15:21 Monocytes % (Manual) 5.0 % (0.0-7.3) 09/27/20 15:21 Eosinophils % (Manual) 0 % (0.0-4.3) 09/27/20 15:21 Basophils % (Manual) 0 % (0.0-1.8) 09/27/20 15:21 Metamyelocytes % 2.0 % 09/27/20 15:21 Myelocytes % 0 % 09/27/20 15:21 Promyelocytes % 0 % 09/27/20 15:21 Blast Cells % 0 % 09/27/20 15:21 Nucleated RBC % Not Reportable 09/27/20 15:21 Seg Neutrophils # 9.5 K/mm3 (1.8-7.7) H 09/08/20 05:18 Seg Neutrophils # Man 8.9 K/mm3 (1.8-7.7) H 09/27/20 15:21 Band Neutrophils # 0.1 K/mm3 09/27/20 15:21 Lymphocytes # (Manual) 0.4 K/mm3 (1.2-5.4) L 09/27/20 15:21 Abs React Lymphs (Man) 0.0 K/mm3 09/27/20 15:21 Monocytes # (Manual) 0.5 K/mm3 (0.0-0.8) 09/27/20 15:21 Eosinophils # (Manual) 0.0 K/mm3 (0.0-0.4) 09/27/20 15:21 Basophils # (Manual) 0.0 K/mm3 (0.0-0.1) 09/27/20 15:21 Metamyelocytes # 0.2 K/mm3 09/27/20 15:21 Myelocytes # 0.0 K/mm3 09/27/20 15:21 Promyelocytes # 0.0 K/mm3 09/27/20 15:21 Blast Cells # 0.0 K/mm3 09/27/20 15:21 WBC Morphology Not Reportable 09/27/20 15:21 Hypersegmented Neuts Not Reportable 09/27/20 15:21 Hyposegmented Neuts Not Reportable 09/27/20 15:21 Hypogranular Neuts Not Reportable 09/27/20 15:21 Smudge Cells Not Reportable 09/27/20 15:21 Toxic Granulation Not Reportable 09/27/20 15:21 Toxic Vacuolation Not Reportable 09/27/20 15:21 Dohle Bodies Not Reportable 09/27/20 15:21 Pelger-Huet Anomaly Not Reportable 09/27/20 15:21 Ignacia Rods Not Reportable 09/27/20 15:21 Platelet Estimate Consistent w auto 09/27/20 15:21 Clumped Platelets Not Reportable 09/27/20 15:21 Plt Clumps, EDTA Not Reportable 09/27/20 15:21 Large Platelets Not Reportable 09/27/20 15:21 Giant Platelets Not Reportable 09/27/20 15:21 Platelet Satelliting Not Reportable 09/27/20 15:21 Plt Morphology Comment Not Reportable 09/27/20 15:21 RBC Morphology Not Reportable 09/27/20 15:21 Dimorphic RBCs Not Reportable 09/27/20 15:21 Polychromasia Not Reportable 09/27/20 15:21 Hypochromasia Few 09/27/20 15:21 Poikilocytosis Few 09/27/20 15:21 Anisocytosis Not Reportable 09/27/20 15:21 Microcytosis Not Reportable 09/27/20 15:21 Macrocytosis Not Reportable 09/27/20 15:21 Spherocytes Not Reportable 09/27/20 15:21 Pappenheimer Bodies Not Reportable 09/27/20 15:21 Sickle Cells Not Reportable 09/27/20 15:21 Target Cells Not Reportable 09/27/20 15:21 Tear Drop Cells Rare 09/27/20 15:21 Ovalocytes Not Reportable 09/27/20 15:21 Helmet Cells Rare 09/27/20 15:21 [place]-Polson Bodies Not Reportable 09/27/20 15:21 [place] Rings Not Reportable 09/27/20 15:21 [place] Cells Rare 09/27/20 15:21 Bite Cells Not Reportable 09/27/20 15:21 Crenated Cell Not Reportable 09/27/20 15:21 Elliptocytes Not Reportable 09/27/20 15:21 Acanthocytes (Spur) Rare 09/27/20 15:21 Rouleaux Not Reportable 09/27/20 15:21 Hemoglobin C Crystals Not Reportable 09/27/20 15:21 Schistocytes Not Reportable 09/27/20 15:21 Malaria parasites Not Reportable 09/27/20 15:21 [place] Bodies Not Reportable 09/27/20 15:21 Hem Pathologist Commnt No 09/27/20 15:21 PT 17.5 Sec. (12.2-14.9) H 09/29/20 06:25 INR 1.45 (0.87-1.13) H 09/29/20 06:25 APTT 29.2 Sec. (24.2-36.6) 09/02/20 13:52 D-Dimer 1076.18 ng/mlDDU (0-234) H 09/01/20 21:55 Heparin Anti-Xa Level 0.94 U.I./ml (0.3-0.7) H 09/03/20 05:17 ABG pH 7.441 (7.320-7.450) 09/21/20 03:25 POC ABG pCO2 28.2 mmHg (32.0-48.0) L 09/21/20 03:25 POC ABG pO2 112.5 mmHg (83-108) H 09/21/20 03:25 POC ABG HCO3 18.8 09/21/20 03:25 POC ABG Base Excess -4.5 09/21/20 03:25 ABG Hemoglobin 9.4 (12.0-17.5) L 09/21/20 03:25 ABG Sodium 136.3 mmol/L (136.0-145.0) 09/21/20 03:25 ABG Potassium 4.4 mmol/L (3.40-4.50) 09/21/20 03:25 ABG Chloride 110.0 mmol/L (98-107) H 09/21/20 03:25 ABG Glucose 163 mg/dL (65-95) H 09/21/20 03:25 FiO2 40.0 09/21/20 03:25 Sodium 142 mmol/L (137-145) 10/02/20 05:53 Potassium 5.5 mmol/L (3.6-5.0) H 10/02/20 05:53 Chloride 109.5 mmol/L (98-107) H 10/02/20 05:53 Carbon Dioxide 25 mmol/L (22-30) 10/02/20 05:53 Anion Gap 13 mmol/L 10/02/20 05:53 BUN 40 mg/dL (7-17) H 10/02/20 05:53 Creatinine 1.9 mg/dL (0.6-1.2) H 10/02/20 05:53 Estimated GFR 32 ml/min 10/02/20 05:53 BUN/Creatinine Ratio 21 % 10/02/20 05:53 Glucose 227 mg/dL (65-100) H 10/02/20 05:53 POC Glucose 195 mg/dL (70-105) H 10/02/20 11:13 Lactic Acid 0.60 mmol/L (0.7-2.0) L 09/02/20 08:10 Calcium 8.2 mg/dL (8.4-10.2) L 10/02/20 05:53 Phosphorus 3.60 mg/dL (2.5-4.5) 09/25/20 15:25 Magnesium 2.20 mg/dL (1.7-2.3) 09/14/20 19:57 Iron 28 ug/dL (37-170) L 09/07/20 09:13 TIBC 188 mcg/dL (250-450) L 09/07/20 09:13 Ferritin 313.5 ng/mL (10.0-200.0) H 09/01/20 21:55 Total Bilirubin 0.70 mg/dL (0.1-1.2) 09/19/20 04:29 AST 29 units/L (5-40) 09/19/20 04:29 ALT 43 units/L (7-56) 09/19/20 04:29 Alkaline Phosphatase 185 units/L (35-129) H 09/19/20 04:29 Lactate Dehydrogenase 435 units/L (91-180) H 09/01/20 21:55 C-Reactive Protein 2.30 mg/dL (0.00-1.30) H 09/01/20 21:55 NT-Pro-B Natriuret Pep 05329 pg/mL (0-900) H 09/01/20 21:55 Serum Total Protein 4.3 g/dL (6.1-8.1) L 09/16/20 13:44 Total Protein 4.3 g/dL (6.3-8.2) L 09/19/20 04:29 Albumin 2.1 g/dL (3.9-5) L 09/19/20 04:29 Albumin/Globulin Ratio 1.0 % 09/19/20 04:29 Fcdgq-9-Vkwepafnr 0.5 g/dL (0.2-0.3) H 09/16/20 13:44 Kevjq-2-Sqbfslnlq 0.6 g/dL (0.5-0.9) 09/16/20 13:44 Beta Globulins 0.3 g/dL (0.2-0.5) 09/16/20 13:44 Gamma Globulins 0.8 g/dL (0.8-1.7) 09/16/20 13:44 Abnorm Protein Band 1 see below 09/16/20 13:44 PEP Interpretation see below H 09/16/20 13:44 Vitamin B12 843.2 pg/mL (211-911) 09/07/20 09:13 Procalcitonin 0.10 ng/mL (<0.15) 09/01/20 21:55 TSH 0.735 mlU/mL (0.270-4.200) 09/02/20 00:45 Free T4 0.92 ng/dL (0.76-1.46) 09/02/20 00:45 Free T4 0.94 ng/dL (0.76-1.46) 09/02/20 00:45 PTH Intact 820.4 pg/mL (15-65) H 09/04/20 05:18 Arterial Blood Glucose 163 mg/dL (65-95) H 09/21/20 03:25 Arterial Blood Ionized Calcium 4.7 mg/dL (4.6-5.3) 09/21/20 03:25 Urine Color Elena (Yellow) 09/02/20 03:44 Urine Turbidity Cloudy (Clear) 09/02/20 03:44 Urine pH 7.0 (5.0-7.0) 09/02/20 03:44 Ur Specific [place] 1.015 (1.003-1.030) 09/02/20 03:44 Urine Protein >500 mg/dL (Negative) 09/02/20 03:44 Urine Glucose (UA) Neg mg/dL (Negative) 09/02/20 03:44 Urine Ketones Neg mg/dL (Negative) 09/02/20 03:44 Urine Blood Neg (Negative) 09/02/20 03:44 Urine Nitrite Neg (Negative) 09/02/20 03:44 Urine Bilirubin Neg (Negative) 09/02/20 03:44 Urine Urobilinogen < 2.0 mg/dL (<2.0) 09/02/20 03:44 Ur Leukocyte Esterase Neg (Negative) 09/02/20 03:44 Urine WBC (Auto) < 1.0 /HPF (0.0-6.0) 09/02/20 03:44 Urine RBC (Auto) < 1.0 /HPF (0.0-6.0) 09/02/20 03:44 U Epithel Cells (Auto) < 1.0 /HPF (0-13.0) 09/02/20 03:44 Urine Bacteria (Auto) 2+ /HPF (Negative) 09/02/20 03:44 Urine Mucus Few /HPF 09/02/20 03:44 Urine Creatinine 43.2 mg/dL (0.1-20.0) H 09/06/20 06:52 Protein/Creatinin Ratio 6.90 09/06/20 06:52 Urine Sodium 84 mmol/L 09/06/20 06:52 Urine Total Protein 298 mg/dL (5-11.8) H 09/06/20 06:52 DEMARCUS Screen Negative (Negative) 09/17/20 00:10 Proteinase 3 (PR3) Ab <1.0 AI (<1.0) 09/17/20 00:10 Myeloperoxidase Ab <1.0 AI (<1.0) 09/17/20 00:10 Glomerular Base Mem IgG See scanned result 09/16/20 13:44 Complement C3 82 mg/dL (83-193) L 09/17/20 00:10 Complement C4 26 mg/dL (15-57) 09/17/20 00:10 C. difficile Tox (PCR) Negative (Negative) 09/02/20 13:05 Coronavirus (PCR) Negative (Negative) 09/30/20 Unknown SARS-CoV-2 IgG Ab Nonreactive (NonReactive) 09/02/20 08:10 Blood Type O POSITIVE 09/17/20 13:49 Antibody Screen Negative 09/17/20 13:49 Crossmatch See Detail 09/17/20 13:49 - Diagnostic Impressions Diagnostic Impressions: Echocardiogram 09/22/20 13:29 Transthoracic Echocardiogram Indication: Cardiopulmonary arrest BP: 175/66 HR: 71 Conclusions *4-chamber dilated cardiomyopathy. *Global left ventricular systolic function is mildly decreased. *The estimated ejection fraction is 40-45%. *Mild concentric left ventricular hypertrophy is observed. *There is mild to moderate mitral regurgitation. *There is mild to moderate tricuspid regurgitation. *There is moderately-severe pulmonary hypertension. *The right ventricular systolic pressure is calculated at 62 mmHg. *There is a minimial pericardial effusion. Findings Left Ventricle: The left ventricular chamber size is mildly dilated. Mild concentric left ventricular hypertrophy is observed. Global left ventricular systolic function is mildly decreased. The estimated ejection fraction is 40-45%. Left Atrium: The left atrium is moderately dilated. Right Ventricle: The right ventricle is mildly dilated. The right ventricular global systolic function is mildly reduced. Right Atrium: The right atrium is moderately dilated. Aortic Valve: The aortic valve is trileaflet. The aortic valve leaflets are moderately thickened. There is no evidence of aortic regurgitation. There is no evidence of aortic stenosis. Mitral Valve: The mitral valve leaflets are mildly thickened. There is mild to moderate mitral regurgitation. There is no evidence of mitral stenosis. Tricuspid Valve: The tricuspid valve leaflets are normal. There is mild to moderate tricuspid regurgitation. The right ventricular systolic pressure is calculated at 62 mmHg. There is evidence of severe pulmonary hypertension. Pulmonic Valve: There is mild pulmonic regurgitation. Pericardium: There is a minimial pericardial effusion. Aorta: There is no dilatation of the ascending aorta. There is no dilatation of the aortic root. Venous: The inferior vena cava is dilated. Measurements Chambers 2D Name Value Normal Range IVSd (2D) 1.17 cm (0.6 - 1.1) LVPWd (2D) 1.15 cm (0.6 - 1.1) IVS:LVPW ratio (2D) 1.02 ratio - LVIDd (2D) 5 cm (3.7 - 5.6) LVIDs (2D) 3.71 cm (2 - 3.8) LV FS (Teichholz) (2D) 25.8 % - LV FS (cube) (2D) 25.8 % - EF Teichholz (2D) 50.4 % - Ao root diameter (2D) 2.6 cm (2 - 3.7) LA dimension (AP) 2D 5.1 cm (1.9 - 4) LA:Ao ratio (2D) 1.96 ratio - Volumes/Mass Name Value Normal Range LA ESV SP 4CH (MOD) 49 ml - LA ESV SP 2CH (MOD) 96 ml - LA ESV BP (MOD) 69 ml - LA ESV BP (MOD) index 33.2 ml/m2 - Diastolic/Systolic Function Name Value Normal Range MV E-wave Vmax 1.21 m/sec - MV deceleration time 254 msec - MV A-wave Vmax 1.12 m/sec - MV E:A ratio 1.1 ratio - Aortic Valve Name Value Normal Range AV VTI 31.1 cm - AV mean gradient 4 mmHg - LVOT diameter 2 cm - LVOT VTI 19.4 cm - LVOT mean gradient 2 mmHg - Mitral Valve Name Value Normal Range MV Vmax 1.44 m/sec - MV VTI 35.9 cm - MV peak gradient 8 mmHg - MV mean gradient 5 mmHg - MR Vmax 5.52 m/sec - Tricuspid Valve Name Value Normal Range TR Vmax 3.52 m/sec - TR peak gradient 50 mmHg - RVSP 62 mmHg - [place]/IV: Voiding Method Incontinent IV Catheter Type [Left Upper PICC Line arm] IV Catheter Type [Right INT / Saline Lock Forearm] IV Catheter Type [Left INT / Saline Lock Antecubital] IV Catheter Type [Right Hand] INT / Saline Lock IV Catheter Type [Right Upper Mid-line arm] IV Catheter Type [Right INT / Saline Lock External Jugular] Active Medications - Current Medications Current Medications: Generic Name Dose Route Start Last Admin Trade Name Freq PRN Reason Stop Dose Admin Acetaminophen 650 mg 09/02/20 00:30 09/05/20 22:50 Tylenol PO 650 mg Q6H PRN Administration Pain, Mild (1-3) Amlodipine Besylate 10 mg 09/21/20 12:00 10/02/20 10:05 Amlodipine PO 10 mg DAILY JAE Administration Lipase/Protease/Amylase 1 each 09/30/20 11:03 Pancreshannan Mora 10,500 Unit FEEDTUBE PRN PRN For Clogged Feeding Tube Calcitriol 0.5 mcg 09/05/20 13:00 10/02/20 10:04 Rocaltrol PO 0.5 mcg QDAY JAE Administration Clonidine HCl 0.1 mg 09/26/20 10:00 09/26/20 11:44 Catapres-Tts Patch TD 0.1 mg Sa JAE Administration Dextrose 50 ml 09/11/20 19:09 09/27/20 05:59 D50w (25gm) Syringe IV 50 ml Q30MIN PRN Administration Hypoglycemia Protocol Ferrous Sulfate 308 mg 09/21/20 10:00 10/02/20 10:04 Ferrous Sulfate FEEDTUBE 308 mg DAILY JAE Administration Haloperidol Lactate 5 mg 09/11/20 19:10 Haldol IM Q6H PRN Agitation Hydralazine HCl 10 mg 09/10/20 22:23 09/14/20 05:46 Apresoline IV 10 mg Q6H PRN Administration Blood Pressure Sodium Chloride 1,000 mls @ 50 mls/hr 09/29/20 13:45 10/01/20 22:28 Nacl 0.9% 1000 Ml IV 50 mls/hr DIRECT JAE Administration Insulin Human Lispro 0 unit 09/19/20 12:00 10/02/20 11:21 Humalog SUB-Q 2 unit Q6HR JAE Administration Protocol Lansoprazole 30 mg 09/29/20 23:00 10/02/20 10:05 Prevacid Solutab FEEDTUBE 30 mg BID JAE Administration Loperamide HCl 2 mg 09/30/20 18:46 10/01/20 17:55 Imodium PO 2 mg Q2H PRN Administration Diarrhea Multivitamins 5 ml 09/18/20 10:00 10/02/20 10:04 Centrum Liq PO 5 ml QDAY JAE Administration Sertraline HCl 50 mg 09/02/20 10:00 10/02/20 10:05 Zoloft PO 50 mg DAILY JAE Administration Simple Syrup 15 ml 09/30/20 11:03 Simple Syrup FEEDTUBE PRN PRN Hypoglycemia Simple Syrup 30 ml 09/30/20 11:03 Simple Syrup FEEDTUBE PRN PRN Hypoglycemia Sodium Bicarbonate 325 mg 09/30/20 11:03 Sodium Bicarbonate FEEDTUBE PRN PRN For Clogged Feeding Tube Sodium Chloride 10 ml 09/02/20 10:00 10/02/20 10:05 Sodium Chloride Flush Syringe 10 Ml IV 10 ml BID JAE Administration Sodium Chloride 10 ml 09/02/20 00:30 Sodium Chloride Flush Syringe 10 Ml IV PRN PRN LINE FLUSH Nutrition/Malnutrition Assess - Dietary Evaluation Nutrition/Malnutrition Findings: Nutrition Notes Start: 09/03/20 13:19 Freq: Status: Active Protocol: Document 09/30/20 11:08 AT (Rec: 09/30/20 11:21 [email or web address] Co-Sign 09/30/20 11:08 LM Nutrition Notes Need for Assessment generated from: MD Order Initial or Follow up Reassessment Current Diagnosis Acute Kidney Injury,CKD(stage I-IV),Diabetes,Sepsis Other Pertinent Diagnosis COVID-19 (+), pneu, anemia, bilat BKA, erosive esophagitis , sacral wound Current Diet TF Labs/Tests BUN 37 Cr 1.7 BG 154 Ca 8.1 Pertinent Medications Vitamin D Iron Potassium Height 5 ft 6 in Weight 103 kg [place] Body Weight (kg) 59.09 BMI 36.6 Weight Status Obese Subjective/Other Information TF Consult post-PEG placement. Burn Absent Trauma Absent Difficulty In Swallowing Current % PO Negligible Minimum of two criteria No physical signs of malnutrition #2 Nutrition Diagnosis Increased nutrient needs ( specify in comment below) Comments: protein Diagnosis Progress(for reassessment Continues documentation) #1 Nutrition Diagnosis Inadequate oral intake Diagnosis Progress(for reassessment Continues documentation) Is patient on ventilator? No Is Patient Ambulatory and/or Out of Bed No REE-([facility]-confined to bed) 1926.912 Kcal/Kg value to use for calculation 16 Approximate Energy Requirements Using 1648 kcal/Kg Calculation Used for Recommendations Kcal/kg Additional Notes Protein: 65-122g (0.8-1.5g/kg using AdjBW 81kg) Fluid: 1ml/kcal Nutrition Intervention Change Diet Order: Continue with TF Nutrition Support: Nepro 1.8 at 40mL/hr. Flush with 150 mL q4 hr Kcal 1,728 Protein (gm) 78 Fluid (mL) 698 Goal #1 Meet at least 75% of estimated energy and protein needs Goal #2 TF tolerance Anticipated Discharge Needs: TF Follow-Up By: 10/02/20 Additional Comments F/U for TF tolerance
--- NOTE | 2020-10-02 14:01 | XRay Report ---
CHEST 1 VIEW 10/02/2020 12:15 PM INDICATION / CLINICAL INFORMATION: Left pleural effusion, recent thoracentesis. COMPARISON: CTA chest from 10/01/2020. FINDINGS: SUPPORT DEVICES: None. HEART / MEDIASTINUM: Stable. LUNGS / PLEURA: Improved aeration of the left lung without a significant residual pleural effusion. A small right pleural effusion remains with generalized right interstitial opacities. No pneumothorax. ADDITIONAL FINDINGS: No significant additional findings. IMPRESSION: 1. Improved aeration of the left lung after thoracentesis without a pneumothorax. 2. Additional findings as above. Signer Name: Kristopher Henriquez MD Signed: 10/02/2020 1:56 PM Workstation Name: [id number]
--- NOTE | 2020-10-02 15:11 | Ultrasound Report ---
Ultrasound-guided thoracentesis HISTORY: diagnositic and therapeutic. COMPARISON: Recent chest x-rays PROCEDURE: The risks (including but not limited to bleeding, infection, and pneumothorax) and benefi ts were explained to the patient and informed consent was obtained. A time out procedure was perform ed. Ultrasound was used to evaluate the left pleural effusion and locate the optimal site for needle entr y. Once the skin was marked, the procedure site was prepped and draped in the usual sterile fashion and lidocaine was used for local anesthesia. A skin artur was made and a 6-Danish thoracentesis k[address] ter was placed. The patient was monitored closely throughout the procedure, and a total of 650 mL of clear yellow fluid was aspirated. Samples were sent to the lab for further evaluation per the prima clinicians orders. The patient tolerated the procedure well with no complications. A post-procedure chest x-ray was imm ediately ordered. IMPRESSION: Successful ultrasound-guided left thoracentesis. Signer Name: Chase Salcedo Jr, MD Signed: 10/02/2020 3:07 PM Workstation Name: [id number]
--- NOTE | 2020-10-02 21:25 | Progress Note ---
Assessment and Plan 1. Acute kidney injury: DIRK secondary to combination of Vasomotor nephropathy and severe sepsis. Renal US negative for hydro. Monitor renal function, improving. Prior Creatinine was 1.2 in 2014. Likely CKD stage 4. Renal prognosis is guarded. Avoid nephrotoxic agents. Meds dosage based on GFR. 2. FEN: Hyperkalemia, Kayexalate ordered. Hyperchloremic Metabolic acidosis, improved, monitor. Hypernatremia, improved, monitor. Monitor lytes. 3. Nephrotic syndrome: Likely diabetic nephropathy. DEMARCUS, ANCA and GBM Ab are negative. Complements appears normal. SPEP; too small of M spike. 4. Severe sepsis, POA, now with shock: Off pressors. 5. S/p Cardiac arrest. 6. Severe COVID infection: Seen by ID. 7. Acute hypoxic resp failure: Intubated post-arrest. S/p extubated. 8. Bilateral LE DVT, POA. 9. Microcytic anemia, POA: S/p PRBC. Monitor. Seen by GI. 10. Dysphagia: S/p PEG. 11. Thrombocytopenia, POA. Improved. Subjective: Patient was seen and examined at the bedside. Examination: General appearance: well-developed, appears stated age, no distress HEENT: JAYCE Neck: Trachea midline Respiratory: ctab Cardiology: regular, S1S2, no murmur Gastrointestinal: normoactive bowel sounds, no tenderness, PEG tube noted Integumentary: no obvious rash Neurologic: alert, moving extremities, confused Ext: trace dependent edema, b/l BKA Subjective Date of service: 10/02/20 Principal diagnosis: Iron Def Anemia Objective - Vital Signs Vital signs: Vital Signs - 12hr 10/02/20 10/02/20 10/02/20 11:13 14:33 16:47 Temperature 98.0 F 98.2 F Pulse Rate 69 82 Respiratory 20 20 Rate Blood Pressure 112/65 123/60 O2 Sat by Pulse 94 99 99 Oximetry 10/02/20 20:55 Temperature Pulse Rate Respiratory Rate Blood Pressure O2 Sat by Pulse 97 Oximetry - Lab 09/29/20 06:25 10/02/20 15:25 Most recent lab results ABG pH 7.441 (7.320-7.450) 09/21/20 03:25 Calcium 8.2 mg/dL (8.4-10.2) L 10/02/20 05:53 Phosphorus 3.60 mg/dL (2.5-4.5) 09/25/20 15:25 Magnesium 2.20 mg/dL (1.7-2.3) 09/14/20 19:57 Urine Creatinine 43.2 mg/dL (0.1-20.0) H 09/06/20 06:52 Urine Sodium 84 mmol/L 09/06/20 06:52 Urine Total Protein 298 mg/dL (5-11.8) H 09/06/20 06:52 Medications & Allergies - Medications Allergies/Adverse Reactions: Allergies No Known Allergies Allergy (Unverified 02/14/14 19:23) Home Medications: Home Medications Medication Instructions Recorded Confirmed Last Taken Type Aspirin [[place] Aspirin] 81 mg PO DAILY 02/14/14 09/30/20 02/14/14 11:00 History Ferrous Sulfate [Feosol 325mg] 325 mg PO DAILY 02/14/14 09/30/20 02/14/14 11:00 History Sertraline [Zoloft] 50 mg PO DAILY 02/14/14 09/30/20 02/14/14 11:00 History hydroCHLOROthiazide 25 mg PO DAILY 02/14/14 09/30/20 02/14/14 11:00 History [Hydrochlorothiazide] Insulin Glargine [Lantus VIAL] 14 units SUB-Q QHS 30 Days 09/17/20 Unknown Rx Pantoprazole [Protonix TAB] 40 mg PO BIDAC #60 tablet 09/17/20 Unknown Rx calcitrioL [Rocaltrol] 0.5 mcg PO QDAY #30 capsule 09/17/20 Unknown Rx metOLazone [Zaroxolyn] 10 mg PO QDAY #30 tablet 09/17/20 Unknown Rx Lansoprazole Solutab [Prevacid 30 mg FEEDTUBE BID #30 tab.rapdis 09/30/20 Unknown Rx Solutab] Loperamide [Imodium] 2 mg PO Q2H PRN #30 capsule 09/30/20 Unknown Rx Multivitamins Liq [Multiple 5 ml PO QDAY #30 oral.liqd 09/30/20 Unknown Rx Vitamin Liq (Theragran)] amLODIPine 10 mg PO DAILY #60 tab 09/30/20 Unknown Rx Active Medications: Generic Name Dose Route Start Last Admin Trade Name Freq PRN Reason Stop Dose Admin Acetaminophen 650 mg 09/02/20 00:30 09/05/20 22:50 Tylenol PO 650 mg Q6H PRN Administration Pain, Mild (1-3) Amlodipine Besylate 10 mg 09/21/20 12:00 10/02/20 10:05 Amlodipine PO 10 mg DAILY JAE Administration Lipase/Protease/Amylase 1 each 09/30/20 11:03 Pancreazdave Mora 10,500 Unit FEEDTUBE PRN PRN For Clogged Feeding Tube Calcitriol 0.5 mcg 09/05/20 13:00 10/02/20 10:04 Rocaltrol PO 0.5 mcg QDAY JAE Administration Clonidine HCl 0.1 mg 09/26/20 10:00 09/26/20 11:44 Catapres-Tts Patch TD 0.1 mg Sa JAE Administration Dextrose 50 ml 09/11/20 19:09 09/27/20 05:59 D50w (25gm) Syringe IV 50 ml Q30MIN PRN Administration Hypoglycemia Protocol Ferrous Sulfate 308 mg 09/21/20 10:00 10/02/20 10:04 Ferrous Sulfate FEEDTUBE 308 mg DAILY JAE Administration Haloperidol Lactate 5 mg 09/11/20 19:10 Haldol IM Q6H PRN Agitation Hydralazine HCl 10 mg 09/10/20 22:23 09/14/20 05:46 Apresoline IV 10 mg Q6H PRN Administration Blood Pressure Sodium Chloride 1,000 mls @ 50 mls/hr 09/29/20 13:45 10/01/20 22:28 Nacl 0.9% 1000 Ml IV 50 mls/hr DIRECT JAE Administration Insulin Human Lispro 0 unit 09/19/20 12:00 10/02/20 17:11 Humalog SUB-Q 2 unit Q6HR JAE Administration Protocol Lansoprazole 30 mg 09/29/20 23:00 10/02/20 10:05 Prevacid Solutab FEEDTUBE 30 mg BID JAE Administration Loperamide HCl 2 mg 09/30/20 18:46 10/01/20 17:55 Imodium PO 2 mg Q2H PRN Administration Diarrhea Multivitamins 5 ml 09/18/20 10:00 10/02/20 10:04 Centrum Liq PO 5 ml QDAY JAE Administration Sertraline HCl 50 mg 09/02/20 10:00 10/02/20 10:05 Zoloft PO 50 mg DAILY JAE Administration Simple Syrup 15 ml 09/30/20 11:03 Simple Syrup FEEDTUBE PRN PRN Hypoglycemia Simple Syrup 30 ml 09/30/20 11:03 Simple Syrup FEEDTUBE PRN PRN Hypoglycemia Sodium Bicarbonate 325 mg 09/30/20 11:03 Sodium Bicarbonate FEEDTUBE PRN PRN For Clogged Feeding Tube Sodium Chloride 10 ml 09/02/20 10:00 10/02/20 10:05 Sodium Chloride Flush Syringe 10 Ml IV 10 ml BID JAE Administration Sodium Chloride 10 ml 09/02/20 00:30 Sodium Chloride Flush Syringe 10 Ml IV PRN PRN LINE FLUSH
[2020-10-03] MEDS: INSULIN LISPRO 100 UNIT/ML VIAL 3 mL SUB-Q SCH ×4 (01:01→18:53)
[2020-10-03 06:34] LABS: Hemoglobin 6.4 gm/dl (10.1-14.3); Mean Corpuscular HGB Conc 32 % (30-34); Mean Corpuscular Volume 86 fl (79-97); Platelet Count 129 K/mm3 (140-440); Red Blood Count 2.32 M/mm3 (3.65-5.03); Red Cell Distribution Width 18.6 % (13.2-15.2)
[2020-10-03 06:49] LABS: Hematocrit 19.9 % (30.3-42.9)
[2020-10-03 06:55] LABS: Calcium 8.5 mg/dL (8.4-10.2)
[2020-10-03 08:12] LABS: Hematocrit 21.8 % (30.3-42.9); Mean Corpuscular HGB Conc 32 % (30-34); Mean Corpuscular Volume 87 fl (79-97); Platelet Count 123 K/mm3 (140-440); Red Blood Count 2.52 M/mm3 (3.65-5.03); Red Cell Distribution Width 18.9 % (13.2-15.2)
[2020-10-03 09:03] LABS: Anisocytosis 1+; Myelocytes # (Manual) 0.2 K/mm3; Total Cells Counted 100
[2020-10-03 09:04] LABS: Burr Cells 1+; Hypochromasia 1+; Ovalocytes Rare; Platelet Estimate Consistent w Auto; Poikilocytosis 1+; Schistocytes Rare
--- NOTE | 2020-10-03 10:36 | Progress Note ---
Assessment and Plan 1. Acute kidney injury: DIRK secondary to combination of Vasomotor nephropathy and severe sepsis. Renal US negative for hydro. Monitor renal function. Prior Creatinine was 1.2 in 2014. Likely CKD stage 4. Renal prognosis is guarded. Avoid nephrotoxic agents. Meds dosage based on GFR. 2. FEN: Hyperkalemia, improved. Hyperchloremic Metabolic acidosis, improved, monitor. Hypernatremia, improved, monitor. Monitor lytes. 3. Nephrotic syndrome: Likely diabetic nephropathy. DEMARCUS, ANCA and GBM Ab are negative. Complements appears normal. SPEP; too small of M spike. Immunofixation pending. 4. Severe sepsis, POA, now with shock: Off pressors. 5. S/p Cardiac arrest. 6. Severe COVID infection: Seen by ID. 7. Acute hypoxic resp failure: Intubated post-arrest. S/p extubated. 8. Bilateral LE DVT, POA. 9. Microcytic anemia, POA: S/p PRBC. Monitor. Seen by GI. 10. Dysphagia: S/p PEG. 11. Thrombocytopenia, POA. Monitor. Subjective: Patient was not examined today. However the examination findings from other providers noted. The current and previous medical records are reviewed in detail as are laboratory and imaging data reviewed when appropriate. Medications being given are also reviewed. In addition the case has been discussed with the attending hospitalist and the nurse when needed. New renal recommendations as above. Examination: Subjective Date of service: 10/03/20 Principal diagnosis: Iron Def Anemia Objective - Lab 10/03/20 07:40 10/03/20 05:06 Most recent lab results ABG pH 7.441 (7.320-7.450) 09/21/20 03:25 Calcium 8.5 mg/dL (8.4-10.2) 10/03/20 05:06 Phosphorus 3.60 mg/dL (2.5-4.5) 09/25/20 15:25 Magnesium 2.20 mg/dL (1.7-2.3) 09/14/20 19:57 Urine Creatinine 43.2 mg/dL (0.1-20.0) H 09/06/20 06:52 Urine Sodium 84 mmol/L 09/06/20 06:52 Urine Total Protein 298 mg/dL (5-11.8) H 09/06/20 06:52 Medications & Allergies - Medications Allergies/Adverse Reactions: Allergies No Known Allergies Allergy (Unverified 02/14/14 19:23) Home Medications: Home Medications Medication Instructions Recorded Confirmed Last Taken Type Aspirin [[place] Aspirin] 81 mg PO DAILY 02/14/14 09/30/20 02/14/14 11:00 History Ferrous Sulfate [Feosol 325mg] 325 mg PO DAILY 02/14/14 09/30/20 02/14/14 11:00 History Sertraline [Zoloft] 50 mg PO DAILY 02/14/14 09/30/20 02/14/14 11:00 History hydroCHLOROthiazide 25 mg PO DAILY 02/14/14 09/30/20 02/14/14 11:00 History [Hydrochlorothiazide] Insulin Glargine [Lantus VIAL] 14 units SUB-Q QHS 30 Days 09/17/20 Unknown Rx Pantoprazole [Protonix TAB] 40 mg PO BIDAC #60 tablet 09/17/20 Unknown Rx calcitrioL [Rocaltrol] 0.5 mcg PO QDAY #30 capsule 09/17/20 Unknown Rx metOLazone [Zaroxolyn] 10 mg PO QDAY #30 tablet 09/17/20 Unknown Rx Lansoprazole Solutab [Prevacid 30 mg FEEDTUBE BID #30 tab.rapdis 09/30/20 Unknown Rx Solutab] Loperamide [Imodium] 2 mg PO Q2H PRN #30 capsule 09/30/20 Unknown Rx Multivitamins Liq [Multiple 5 ml PO QDAY #30 oral.liqd 09/30/20 Unknown Rx Vitamin Liq (Theragran)] amLODIPine 10 mg PO DAILY #60 tab 09/30/20 Unknown Rx Amoxicillin/Potassium Clav 1 each PO BID #5 tablet 10/03/20 Unknown Rx [Augmentin 875-125 Tablet] Active Medications: Generic Name Dose Route Start Last Admin Trade Name Freq PRN Reason Stop Dose Admin Amlodipine Besylate 10 mg 09/21/20 12:00 10/02/20 10:05 Amlodipine PO 10 mg DAILY JAE Administration Lipase/Protease/Amylase 1 each 09/30/20 11:03 Pancreshannan Mora 10,500 Unit FEEDTUBE PRN PRN For Clogged Feeding Tube Calcitriol 0.5 mcg 09/05/20 13:00 10/02/20 10:04 Rocaltrol PO 0.5 mcg QDAY JAE Administration Clonidine HCl 0.1 mg 09/26/20 10:00 09/26/20 11:44 Catapres-Tts Patch TD 0.1 mg Sa JAE Administration Dextrose 50 ml 09/11/20 19:09 09/27/20 05:59 D50w (25gm) Syringe IV 50 ml Q30MIN PRN Administration Hypoglycemia Protocol Ferrous Sulfate 308 mg 09/21/20 10:00 10/02/20 10:04 Ferrous Sulfate FEEDTUBE 308 mg DAILY AJE Administration Haloperidol Lactate 5 mg 09/11/20 19:10 Haldol IM Q6H PRN Agitation Hydralazine HCl 10 mg 09/10/20 22:23 09/14/20 05:46 Apresoline IV 10 mg Q6H PRN Administration Blood Pressure Sodium Chloride 1,000 mls @ 50 mls/hr 09/29/20 13:45 10/01/20 22:28 Nacl 0.9% 1000 Ml IV 50 mls/hr DIRECT JAE Administration Insulin Human Lispro 0 unit 09/19/20 12:00 10/03/20 05:06 Humalog SUB-Q Not Given Q6HR JAE Protocol Lansoprazole 30 mg 09/29/20 23:00 10/02/20 21:28 Prevacid Solutab FEEDTUBE 30 mg BID JAE Administration Loperamide HCl 2 mg 09/30/20 18:46 10/01/20 17:55 Imodium PO 2 mg Q2H PRN Administration Diarrhea Multivitamins 5 ml 09/18/20 10:00 10/02/20 10:04 Centrum Liq PO 5 ml QDAY JAE Administration Sertraline HCl 50 mg 09/02/20 10:00 10/02/20 10:05 Zoloft PO 50 mg DAILY JAE Administration Simple Syrup 15 ml 09/30/20 11:03 Simple Syrup FEEDTUBE PRN PRN Hypoglycemia Simple Syrup 30 ml 09/30/20 11:03 Simple Syrup FEEDTUBE PRN PRN Hypoglycemia Sodium Bicarbonate 325 mg 09/30/20 11:03 Sodium Bicarbonate FEEDTUBE PRN PRN For Clogged Feeding Tube Sodium Chloride 10 ml 09/02/20 10:00 10/02/20 21:28 Sodium Chloride Flush Syringe 10 Ml IV 10 ml BID JAE Administration
[2020-10-03] MEDS: CALCITRIOL 0.5 MCG CAP PO SCH (10:47)
[2020-10-03] MEDS: SERTRALINE 50 MG TAB PO SCH (10:47)
[2020-10-03] MEDS: FERROUS SULFATE 308 MG (62mg Elemental Iron) / 7 ML ELIXIR FEEDTUBE SCH (10:47)
[2020-10-03] MEDS: LANSOPRAZOLE 30 MG SOLUTAB FEEDTUBE SCH ×2 (10:47→22:21)
[2020-10-03] MEDS: cloNIDine TTS 0.1 MG/24 HR PATCH TD SCH (10:48)
[2020-10-03] MEDS: MULTIVITAMINS 5 ML ORAL LIQUID PO SCH (10:48)
[2020-10-03] MEDS: amLODIPine 10 MG TAB PO SCH (10:52)
--- NOTE | 2020-10-03 12:40 | Progress Note ---
Assessment and Plan Assessment and plan: --S/P Cardiorespiratory arrest on 09/17/20 Intubated on vent, pulmonary critical, cardiology following Patient was weaned and extubated yesterday Today patient is alert and awake on nasal cannula oxygen -- Acute delirium/acute metabolic encephalopathy Etiology unknown, likely initially was metabolic Significantly improved, neuro, psych consult as needed --Sepsis ;Due to COVID-19 pneumonia Received complete treatment,Blood culture NTD --Septic shock, status post pressor following cardiac arrest BP now stable, continue to monitor --COVID-19 pneumonia, POA Coronavirus protocol: Coronavirus PCR is positive, contact precaution, isolation precautions, prone positioning while in bed, Not a candidate for remdesivir due to renal failure Continue dexamethasone, s/p convalescent plasma --Acute on chronic anemia Due to chronic GI bleed and iron deficiency Status post transfusion of 3 units PRBC, PPI. Continue to monitor for GI bleed As per GI, does not look like patient is having GI bleed at this time Advance diet as tolerated --Possible GI bleed, chronic Advance diet, GI on board Recommended to manage medically --Acute kidney injury (DIRK) with acute tubular necrosis (ATN) Continue to monitor renal function Nephrology following closely --Hypernatremia Continue isotonic solution Nephrology on board --Bilateral lower extremity DVT, chronic Consulted vascular surgeon for consideration of IVC filter placement. As per vascular surgery, patient is not a good candidate for IVC filter pl acement INR 2.74. GI recommended to treat with aspirin only --Diabetes type II Accu-Chek sliding scale coverage ADA diet Insulin as needed --Ongoing tobacco use; Smoking cessation counseling Nicotine patch as needed --EPIXTASIS --DVT prophylaxis, Anticoagulation --full code status Bedside swallow eval versus speech therapy swallow eval Patient is stable to be transferred out of ICU to medical floor. Physical therapy occupational therapy The high probability of a clinically significant, sudden or life threatening deterioration of the [BUSINESS CONTINUITY STRATEGY DIRECTOR, CVS, respiratory, renal, GI] system(s) required my full and direct attention, intervention and personal management. The aggregate critical care time was [35] minutes. This time is in addition to time spent performing reported procedures but includes the following: [x] Data Review and interpretation [x] Patient assessment and monitoring of vital signs [x] Documentation [x] Medication orders and management Plan of care reviewed with the patient and her nurse Brief History; 64 YO Female with HTN, DM, Anemia, PVD, Nicotine Dependence, positive coronavirus test recently at [place] presented to the emergency room for further evaluation. Patient states that she has experienced subjective fever, generalized weakness, body aches, shortness of breath, nausea, multiple loose stools, lower extremity edema over the past 1 week with progressively worsening symptoms over the past 3 to 4 days prior to presentation. Here, patient found to be hypotensive with a systolic blood pressure ranging from 53-94. Patient was also hypothermic with a body temperature of 93.3 F. Patient met criteria for sepsis protocol and found to have bilateral pneumonia, metabolic acidosis, acute kidney injury. Patient admitted to telemetry due to increased risk of multisystem decompensation. Patient initiated on coronavirus protocol. Coronavirus PCR has been ordered, Patient remained hypotensive in spite of IV fluid resuscitation therapy. Patient subsequently upgraded to IMCU. Her repeat COVID-19 test was positive. She was treated with dexamethasone daily for 10 days. Remdesivir could not be given because of worsening renal function. Did receive convalescent plasma. Patient was downgraded to MedSurg. Patient did have on and off delirium recovering restrain. But she was clinically improving and was planning for discharge. On 09/17 morning she developed cardiorespiratory arrest following a coffee-ground emesis. Patient was intubated and transferred to ICU, critical care was consulted, placed on pressor support for hypotension. Family updated and wanted to continue aggressive care. s/p extubation today. daily course: 09/03. While in the ER, patient had an ultrasound Doppler performed that showed bilateral DVT involving the iliac veins. Patient was started on heparin drip. ID consulted for COVID-19 and nephrology consulted for DIRK. Patient seen and examined at bedside this morning. She has no complaints this morning. Her hemoglobin dropped to 6.4 this morning. Patient will get transfused 1 unit of PRBCs. Later this p.m., was notified by nurse that patient is having tarry dark stool and hematemesis. Heparin drip discontinued. Patient started on PPI drip and made n.p.o. GI is has been consulted. Patient will need to have an upper endoscopy. She has bilateral lower extremity DVT and will need vascular surgery evaluation to determine if she is a candidate for IVC filter placement. 09/04. Patient seen and examined at bedside this morning. Labs reviewed showed hemoglobin 5.3. Patient will receive 2 units PRBCs. FFP also ordered. GI evaluation pending. Continue PPIs. Vascular surgeon to see to determine if patient is a candidate for IVC filter placement for DVT. 09/05. Hb stable this morning. GI on board. On PPI drip. 09/06. Gastroenterology and vascular surgery recommendations reviewed. Patient not a good candidate for IVC filter placement due to location of the clot/thrombosis. Plan is for patient to have anticoagulation on while monitoring hemoglobin. Patient's INR is more than 2 at this time so we will hold anticoagulation for now and monitor hemoglobin. Plan to initiate anticoagulation when INR is less than 2. We will preferably use heparin products as she has a high chance of bleeding. Continue to monitor hemoglobin. Hb 7.3 this a.m. 09/07. Hemoglobin 8.2 this AM. No clear signs of GI bleed. Her INR is 2.74. No need for initiation of AC for now as she INR is already therapeutic. Plan is to monitor for bleeding and if she remains stable, she will be started on anticoagulation for her bilateral DVT. Vascular surgery following-patient not a candidate for IVC catheter placement. GI recommendations appreciated 09/08: Patient is nonreactive to COVID-19 antibody, per ID order for convalescent plasma. Continue supportive care, follow clinically 09/09: Pending convalescent plasma transfusion, continue to follow inflammatory markers. Monitor H&H. Plan to start on aspirin tomorrow if INR and H&H stable 09/10: hb dropped to 6.8, transfuse one unit, discussed with GI - no plan for endoscopy now, cont to follow clinically 09/11: patient didn't get transfusion yesterday. became very agitated today, ord ered as needed haldol, cont iv fluid. monitor clinically 09/12: placed on restrain o/n. cont supportive care, lost IV line - ordered for midline. pending PRBC transfusion 09/13: monitor h/h, patient more clam today, continue supportive care, follow BMP - Na and Cr has been improving 09/14: cont to monitor, follow BMP, follow h/h. oral intake improved per RN 09/15: If h/h stable and Cr cont to improves will d/c in a day or two 09/16; spoke with daughter and updated her with patient's clinical condition. family willing to accept the patient tomorrow. RN reported some Nose bleeding earlier today, but now resolved. repeat h/h stable 09/17: had respiratory/cardiac arrest this am. patient transferred to ICU. updated family. will get CT head, patient now intubated, start on bicarbonate drip 09/18; remains unresponsive, NG tube placed and noted bolld from the NG tube, discussed with GI - recommended PRBC/FFP transfusion. patient remains unresponsive w/o sedation and intubated. Called daughter and updated. 09/19: - Patient had OG tube with initial bloody secretions on insertion but currently with dark greenish output. No active bloody output from the OG tube. Rectal tube with dark greenish bilious output. No clear signs of active on-going GI bleeding. Off levophed. Continue to monitor H&H, transfuse as needed. Patient remains unresponsive without any sedation. Poor prognosis which I discussed with the family 09/20: cont supportive care, wean off vent as tolerated. Updated family by phone 09/21: s/p extubation today. Continue to assess mental status. Continue s upportive care. We will stop the bicarbonate drip and start sodium bicarbonate with feeding tube. We will continue half-normal saline for now and monitor BMP daily, ordered speech eval. 09/22; patient was extubated yesterday, today doing well on nasal cannula oxygen, will request for swallow eval, and ordered diet as tolerated Will downgrade her to medical floor, she is still agitated will renew her restraints. Closely monitor DC planning per case management 09/23: Recurrent nosebleed. Rhino Rocket placed in the left nare. Afrin ordered twice daily. Aspiration precautions at this time. No worsening oxygen demand. Will monitor for additional 24 hours. Discharge planning from them. Discussed with nurses at bedside and also with patient. SCDs for DVT prophylaxis discontinue chemical chemoprophylaxis. 09/24: No further bleeding, possible Rhino rocket was replaced as it looks d ifferent, continue Afrin, MONITOR H/H and PLT. 09/25: Clinically stable continue Afrin nose packing is out. Will reevaluate swallowing. Awaiting for cardiology clearance for possible PEG if continues to fail swallowing evaluation. Encourage movement as much as possible due to risk of dvt development. discussed with family 09/26; Continue supportive care, no further bleeding reported. will keep NPO midnight monday to monday for possible PEG placement patient still failed swallo w evaluation per speech re-evaluation 'Received a repeat order for an evaluation. Patient was assessed on 09/23/20. NPO was recommended at the time due to her inability to participate and poor swallowing ability. Patient is unchanged from two days prior and is not appropriate for po consumption. She holds the bolus in the oral cavity and fails to initiate a swallow which places her at risk for aspiration. PEG placement is recommended for this patient. No further recommendations.' Due to labile BP will add patch of clonidine. 09/27: BP stable. Await reevaluation by speech and possible PEG placement prior to discharge. 09/28: Patient will need PEG placement patient still hypercoagulable with increased INR greater than 2 will give vitamin K and FFP and anticipate PEG placement tomorrow prior to discharge to SNF. 09/29 Patient for PEG placement today AND CAN BE DISCHARGED IN AM, high risk for rebleed on anticoagulation. 09/30: Patient pending discharge. Tube feeds started today. Have discussed with the daughter and the son patient will be coming home. 10/01: Patient noted hypoxia today, CT chest negative for PE. Restarted on oxygen and will be discharged on oxygen, FAMILY NOW REQUESTING PLACEMENT 10/02: Patient underwent thoracentesis today with no complications. Will recheck oxygen saturation in a.m. to see if thoracentesis did make a difference will follow results. Chest x-ray reviewed shows improved aeration. Tube feed changed to Osmolite. Patient also noted with hyperkalemia Kayexalate was given will recheck in a.m. Discharge is pending arrangement of all home devices. Family has fluctuated back and forth as to taking patient home versus placement. 10/03: Patient clinically stable hemoglobin is stable respiratory status has improved significantly. Awaiting discharge. History Interval history: Patient seen and examined this morning, no new complaints tolerating diet Hospitalist Physical - Physical exam Narrative exam: General appearance: Present: no acute distress, well-nourished, - EENT Eyes: Present: PERRL, EOM intact, rhino rocket inplace. - Neck Neck: Present: supple, normal ROM - Respiratory Respiratory effort: normal Respiratory: bilateral: diminished, rhonchi, negative: rales, wheezing - Cardiovascular Rhythm: regular Heart Sounds: Present: S1 & S2 - Extremities Extremities: no ischemia, No edema - Abdominal General gastrointestinal: PEG tube in place, soft, non-tender, non-distended, normal bowel sounds - Integumentary Integumentary: Present: clear, warm - Psychiatric Psychiatric: appropriate mood/affect, cooperative - Neurologic Neurologic: moves all extremities - Patient Problems - Constitutional Vitals: Temp Pulse Resp BP Pulse Ox 97.8 F 80 18 143/62 100 10/02/20 21:13 10/03/20 10:48 10/02/20 21:13 10/03/20 10:48 10/02/20 21:13 General appearance: Present: no acute distress, well-nourished Results - Labs CBC & Chem 7: 10/03/20 07:40 10/03/20 05:06 Labs: Laboratory Last Values WBC 15.3 K/mm3 (4.5-11.0) H 10/03/20 07:40 RBC 2.52 M/mm3 (3.65-5.03) L 10/03/20 07:40 Hgb 7.0 gm/dl (10.1-14.3) L 10/03/20 07:40 Hct 21.8 % (30.3-42.9) L 10/03/20 07:40 MCV 87 fl (79-97) 10/03/20 07:40 MCH 28 pg (28-32) 10/03/20 07:40 MCHC 32 % (30-34) 10/03/20 07:40 RDW 18.9 % (13.2-15.2) H 10/03/20 07:40 Plt Count 123 K/mm3 (140-440) L 10/03/20 07:40 Lymph % (Auto) Respooler 09/22/20 08:00 Alfalfa % (Auto) Respooler 09/22/20 08:00 Eos % (Auto) Respooler 09/22/20 08:00 Baso % (Auto) Respooler 09/22/20 08:00 Lymph # (Auto) Respooler 09/22/20 08:00 Alfalfa # (Auto) Respooler 09/22/20 08:00 Eos # (Auto) 0.0 K/mm3 (0.0-0.4) 09/08/20 05:18 Baso # (Auto) 0.0 K/mm3 (0.0-0.1) 09/08/20 05:18 Add Manual Diff Complete 10/03/20 07:40 Total Counted 100 10/03/20 07:40 Seg Neutrophils % Respooler 09/22/20 08:00 Seg Neuts % (Manual) 89.0 % (40.0-70.0) H 10/03/20 07:40 Band Neutrophils % 0 % 10/03/20 07:40 Lymphocytes % (Manual) 4.0 % (13.4-35.0) L 10/03/20 07:40 Reactive Lymphs % (Man) 0 % 10/03/20 07:40 Monocytes % (Manual) 1.0 % (0.0-7.3) 10/03/20 07:40 Eosinophils % (Manual) 3.0 % (0.0-4.3) 10/03/20 07:40 Basophils % (Manual) 1.0 % (0.0-1.8) 10/03/20 07:40 Metamyelocytes % 1.0 % 10/03/20 07:40 Myelocytes % 1.0 % 10/03/20 07:40 Promyelocytes % 0 % 10/03/20 07:40 Blast Cells % 0 % 10/03/20 07:40 Nucleated RBC % 1.0 % (0.0-0.9) H 10/03/20 07:40 Seg Neutrophils # 9.5 K/mm3 (1.8-7.7) H 09/08/20 05:18 Seg Neutrophils # Man 13.6 K/mm3 (1.8-7.7) H 10/03/20 07:40 Band Neutrophils # 0.0 K/mm3 10/03/20 07:40 Lymphocytes # (Manual) 0.6 K/mm3 (1.2-5.4) L 10/03/20 07:40 Abs React Lymphs (Man) 0.0 K/mm3 10/03/20 07:40 Monocytes # (Manual) 0.2 K/mm3 (0.0-0.8) 10/03/20 07:40 Eosinophils # (Manual) 0.5 K/mm3 (0.0-0.4) H 10/03/20 07:40 Basophils # (Manual) 0.2 K/mm3 (0.0-0.1) H 10/03/20 07:40 Metamyelocytes # 0.2 K/mm3 10/03/20 07:40 Myelocytes # 0.2 K/mm3 10/03/20 07:40 Promyelocytes # 0.0 K/mm3 10/03/20 07:40 Blast Cells # 0.0 K/mm3 10/03/20 07:40 WBC Morphology Not Reportable 10/03/20 07:40 Hypersegmented Neuts Not Reportable 10/03/20 07:40 Hyposegmented Neuts Not Reportable 10/03/20 07:40 Hypogranular Neuts Not Reportable 10/03/20 07:40 Smudge Cells Not Reportable 10/03/20 07:40 Toxic Granulation Not Reportable 10/03/20 07:40 Toxic Vacuolation Not Reportable 10/03/20 07:40 Dohle Bodies Not Reportable 10/03/20 07:40 Pelger-Huet Anomaly Not Reportable 10/03/20 07:40 Ignacia Rods Not Reportable 10/03/20 07:40 Platelet Estimate Consistent w auto 10/03/20 07:40 Clumped Platelets Not Reportable 10/03/20 07:40 Plt Clumps, EDTA Not Reportable 10/03/20 07:40 Large Platelets Not Reportable 10/03/20 07:40 Giant Platelets Not Reportable 10/03/20 07:40 Platelet Satelliting Not Reportable 10/03/20 07:40 Plt Morphology Comment Not Reportable 10/03/20 07:40 RBC Morphology Not Reportable 10/03/20 07:40 Dimorphic RBCs Not Reportable 10/03/20 07:40 Polychromasia Not Reportable 10/03/20 07:40 Hypochromasia 1+ 10/03/20 07:40 Poikilocytosis 1+ 10/03/20 07:40 Anisocytosis 1+ 10/03/20 07:40 Microcytosis Not Reportable 10/03/20 07:40 Macrocytosis Not Reportable 10/03/20 07:40 Spherocytes Not Reportable 10/03/20 07:40 Pappenheimer Bodies Not Reportable 10/03/20 07:40 Sickle Cells Not Reportable 10/03/20 07:40 Target Cells Not Reportable 10/03/20 07:40 Tear Drop Cells Not Reportable 10/03/20 07:40 Ovalocytes Rare 10/03/20 07:40 Helmet Cells Not Reportable 10/03/20 07:40 Horvath-[place] Bodies Not Reportable 10/03/20 07:40 Bullock Rings Not Reportable 10/03/20 07:40 Redford Cells 1+ 10/03/20 07:40 Bite Cells Not Reportable 10/03/20 07:40 Crenated Cell Not Reportable 10/03/20 07:40 Elliptocytes Rare 10/03/20 07:40 Acanthocytes (Spur) Few 10/03/20 07:40 Rouleaux Not Reportable 10/03/20 07:40 Hemoglobin C Crystals Not Reportable 10/03/20 07:40 Schistocytes Rare 10/03/20 07:40 Malaria parasites Not Reportable 10/03/20 07:40 Molina Bodies Not Reportable 10/03/20 07:40 Hem Pathologist Commnt No 10/03/20 07:40 PT 17.5 Sec. (12.2-14.9) H 09/29/20 06:25 INR 1.45 (0.87-1.13) H 09/29/20 06:25 APTT 29.2 Sec. (24.2-36.6) 09/02/20 13:52 D-Dimer 1076.18 ng/mlDDU (0-234) H 09/01/20 21:55 Heparin Anti-Xa Level 0.94 U.I./ml (0.3-0.7) H 09/03/20 05:17 ABG pH 7.441 (7.320-7.450) 09/21/20 03:25 POC ABG pCO2 28.2 mmHg (32.0-48.0) L 09/21/20 03:25 POC ABG pO2 112.5 mmHg (83-108) H 09/21/20 03:25 POC ABG HCO3 18.8 09/21/20 03:25 POC ABG Base Excess -4.5 09/21/20 03:25 ABG Hemoglobin 9.4 (12.0-17.5) L 09/21/20 03:25 ABG Sodium 136.3 mmol/L (136.0-145.0) 09/21/20 03:25 ABG Potassium 4.4 mmol/L (3.40-4.50) 09/21/20 03:25 ABG Chloride 110.0 mmol/L (98-107) H 09/21/20 03:25 ABG Glucose 163 mg/dL (65-95) H 09/21/20 03:25 FiO2 40.0 09/21/20 03:25 Sodium 146 mmol/L (137-145) H 10/03/20 05:06 Potassium 4.6 mmol/L (3.6-5.0) 10/03/20 05:06 Chloride 111.6 mmol/L (98-107) H 10/03/20 05:06 Carbon Dioxide 25 mmol/L (22-30) 10/03/20 05:06 Anion Gap 14 mmol/L 10/03/20 05:06 BUN 42 mg/dL (7-17) H 10/03/20 05:06 Creatinine 2.0 mg/dL (0.6-1.2) H 10/03/20 05:06 Estimated GFR 30 ml/min 10/03/20 05:06 BUN/Creatinine Ratio 21 % 10/03/20 05:06 Glucose 118 mg/dL (65-100) H 10/03/20 05:06 POC Glucose 242 mg/dL (70-105) H 10/03/20 11:49 Lactic Acid 0.60 mmol/L (0.7-2.0) L 09/02/20 08:10 Calcium 8.5 mg/dL (8.4-10.2) 10/03/20 05:06 Phosphorus 3.60 mg/dL (2.5-4.5) 09/25/20 15:25 Magnesium 2.20 mg/dL (1.7-2.3) 09/14/20 19:57 Iron 28 ug/dL (37-170) L 09/07/20 09:13 TIBC 188 mcg/dL (250-450) L 09/07/20 09:13 Ferritin 313.5 ng/mL (10.0-200.0) H 09/01/20 21:55 Total Bilirubin 0.70 mg/dL (0.1-1.2) 09/19/20 04:29 AST 29 units/L (5-40) 09/19/20 04:29 ALT 43 units/L (7-56) 09/19/20 04:29 Alkaline Phosphatase 185 units/L (35-129) H 09/19/20 04:29 Lactate Dehydrogenase 435 units/L (91-180) H 09/01/20 21:55 C-Reactive Protein 2.30 mg/dL (0.00-1.30) H 09/01/20 21:55 NT-Pro-B Natriuret Pep 14530 pg/mL (0-900) H 09/01/20 21:55 Serum Total Protein 4.3 g/dL (6.1-8.1) L 09/16/20 13:44 Total Protein 4.3 g/dL (6.3-8.2) L 09/19/20 04:29 Albumin 2.1 g/dL (3.9-5) L 09/19/20 04:29 Albumin/Globulin Ratio 1.0 % 09/19/20 04:29 Xzwrv-2-Sdseegmyf 0.5 g/dL (0.2-0.3) H 09/16/20 13:44 Ehiwr-5-Jjcxkdqyd 0.6 g/dL (0.5-0.9) 09/16/20 13:44 Beta Globulins 0.3 g/dL (0.2-0.5) 09/16/20 13:44 Gamma Globulins 0.8 g/dL (0.8-1.7) 09/16/20 13:44 Abnorm Protein Band 1 see below 09/16/20 13:44 PEP Interpretation see below H 09/16/20 13:44 Vitamin B12 843.2 pg/mL (211-911) 09/07/20 09:13 Procalcitonin 0.10 ng/mL (<0.15) 09/01/20 21:55 TSH 0.735 mlU/mL (0.270-4.200) 09/02/20 00:45 Free T4 0.92 ng/dL (0.76-1.46) 09/02/20 00:45 Free T4 0.94 ng/dL (0.76-1.46) 09/02/20 00:45 PTH Intact 820.4 pg/mL (15-65) H 09/04/20 05:18 Arterial Blood Glucose 163 mg/dL (65-95) H 09/21/20 03:25 Arterial Blood Ionized Calcium 4.7 mg/dL (4.6-5.3) 09/21/20 03:25 Urine Color Elena (Yellow) 09/02/20 03:44 Urine Turbidity Cloudy (Clear) 09/02/20 03:44 Urine pH 7.0 (5.0-7.0) 09/02/20 03:44 Ur Specific Hobbs 1.015 (1.003-1.030) 09/02/20 03:44 Urine Protein >500 mg/dL (Negative) 09/02/20 03:44 Urine Glucose (UA) Neg mg/dL (Negative) 09/02/20 03:44 Urine Ketones Neg mg/dL (Negative) 09/02/20 03:44 Urine Blood Neg (Negative) 09/02/20 03:44 Urine Nitrite Neg (Negative) 09/02/20 03:44 Urine Bilirubin Neg (Negative) 09/02/20 03:44 Urine Urobilinogen < 2.0 mg/dL (<2.0) 09/02/20 03:44 Ur Leukocyte Esterase Neg (Negative) 09/02/20 03:44 Urine WBC (Auto) < 1.0 /HPF (0.0-6.0) 09/02/20 03:44 Urine RBC (Auto) < 1.0 /HPF (0.0-6.0) 09/02/20 03:44 U Epithel Cells (Auto) < 1.0 /HPF (0-13.0) 09/02/20 03:44 Urine Bacteria (Auto) 2+ /HPF (Negative) 09/02/20 03:44 Urine Mucus Few /HPF 09/02/20 03:44 Urine Creatinine 43.2 mg/dL (0.1-20.0) H 09/06/20 06:52 Protein/Creatinin Ratio 6.90 09/06/20 06:52 Urine Sodium 84 mmol/L 09/06/20 06:52 Urine Total Protein 298 mg/dL (5-11.8) H 09/06/20 06:52 DEMARCUS Screen Negative (Negative) 09/17/20 00:10 Proteinase 3 (PR3) Ab <1.0 AI (<1.0) 09/17/20 00:10 Myeloperoxidase Ab <1.0 AI (<1.0) 09/17/20 00:10 Glomerular Base Mem IgG See scanned result 09/16/20 13:44 Complement C3 82 mg/dL (83-193) L 09/17/20 00:10 Complement C4 26 mg/dL (15-57) 09/17/20 00:10 C. difficile Tox (PCR) Negative (Negative) 09/02/20 13:05 Coronavirus (PCR) Negative (Negative) 09/30/20 Unknown SARS-CoV-2 IgG Ab Nonreactive (NonReactive) 09/02/20 08:10 Blood Type O POSITIVE 09/17/20 13:49 Antibody Screen Negative 09/17/20 13:49 Crossmatch See Detail 09/17/20 13:49 - Diagnostic Impressions Diagnostic Impressions: Echocardiogram 09/22/20 13:29 Transthoracic Echocardiogram Indication: Cardiopulmonary arrest BP: 175/66 HR: 71 Conclusions *4-chamber dilated cardiomyopathy. *Global left ventricular systolic function is mildly decreased. *The estimated ejection fraction is 40-45%. *Mild concentric left ventricular hypertrophy is observed. *There is mild to moderate mitral regurgitation. *There is mild to moderate tricuspid regurgitation. *There is moderately-severe pulmonary hypertension. *The right ventricular systolic pressure is calculated at 62 mmHg. *There is a minimial pericardial effusion. Findings Left Ventricle: The left ventricular chamber size is mildly dilated. Mild concentric left ventricular hypertrophy is observed. Global left ventricular systolic function is mildly decreased. The estimated ejection fraction is 40-45%. Left Atrium: The left atrium is moderately dilated. Right Ventricle: The right ventricle is mildly dilated. The right ventricular global systolic function is mildly reduced. Right Atrium: The right atrium is moderately dilated. Aortic Valve: The aortic valve is trileaflet. The aortic valve leaflets are moderately thickened. There is no evidence of aortic regurgitation. There is no evidence of aortic stenosis. Mitral Valve: The mitral valve leaflets are mildly thickened. There is mild to moderate mitral regurgitation. There is no evidence of mitral stenosis. Tricuspid Valve: The tricuspid valve leaflets are normal. There is mild to moderate tricuspid regurgitation. The right ventricular systolic pressure is calculated at 62 mmHg. There is evidence of severe pulmonary hypertension. Pulmonic Valve: There is mild pulmonic regurgitation. Pericardium: There is a minimial pericardial effusion. Aorta: There is no dilatation of the ascending aorta. There is no dilatation of the aortic root. Venous: The inferior vena cava is dilated. Measurements Chambers 2D Name Value Normal Range IVSd (2D) 1.17 cm (0.6 - 1.1) LVPWd (2D) 1.15 cm (0.6 - 1.1) IVS:LVPW ratio (2D) 1.02 ratio - LVIDd (2D) 5 cm (3.7 - 5.6) LVIDs (2D) 3.71 cm (2 - 3.8) LV FS (Teichholz) (2D) 25.8 % - LV FS (cube) (2D) 25.8 % - EF Teichholz (2D) 50.4 % - Ao root diameter (2D) 2.6 cm (2 - 3.7) LA dimension (AP) 2D 5.1 cm (1.9 - 4) LA:Ao ratio (2D) 1.96 ratio - Volumes/Mass Name Value Normal Range LA ESV SP 4CH (MOD) 49 ml - LA ESV SP 2CH (MOD) 96 ml - LA ESV BP (MOD) 69 ml - LA ESV BP (MOD) index 33.2 ml/m2 - Diastolic/Systolic Function Name Value Normal Range MV E-wave Vmax 1.21 m/sec - MV deceleration time 254 msec - MV A-wave Vmax 1.12 m/sec - MV E:A ratio 1.1 ratio - Aortic Valve Name Value Normal Range AV VTI 31.1 cm - AV mean gradient 4 mmHg - LVOT diameter 2 cm - LVOT VTI 19.4 cm - LVOT mean gradient 2 mmHg - Mitral Valve Name Value Normal Range MV Vmax 1.44 m/sec - MV VTI 35.9 cm - MV peak gradient 8 mmHg - MV mean gradient 5 mmHg - MR Vmax 5.52 m/sec - Tricuspid Valve Name Value Normal Range TR Vmax 3.52 m/sec - TR peak gradient 50 mmHg - RVSP 62 mmHg - [place]/IV: Voiding Method Incontinent IV Catheter Type [Left Upper PICC Line arm] IV Catheter Type [Right INT / Saline Lock Forearm] IV Catheter Type [Left INT / Saline Lock Antecubital] IV Catheter Type [Right Hand] INT / Saline Lock IV Catheter Type [Right Upper Mid-line arm] IV Catheter Type [Right INT / Saline Lock External Jugular] Active Medications - Current Medications Current Medications: Generic Name Dose Route Start Last Admin Trade Name Freq PRN Reason Stop Dose Admin Amlodipine Besylate 10 mg 09/21/20 12:00 10/03/20 10:52 Amlodipine PO 10 mg DAILY JAE Administration Lipase/Protease/Amylase 1 each 09/30/20 11:03 Pancreshannan Mora 10,500 Unit FEEDTUBE PRN PRN For Clogged Feeding Tube Calcitriol 0.5 mcg 09/05/20 13:00 10/03/20 10:47 Rocaltrol PO 0.5 mcg QDAY JAE Administration Clonidine HCl 0.1 mg 09/26/20 10:00 10/03/20 10:48 Catapres-Tts Patch TD 0.1 mg Sa JAE Administration Dextrose 50 ml 09/11/20 19:09 09/27/20 05:59 D50w (25gm) Syringe IV 50 ml Q30MIN PRN Administration Hypoglycemia Protocol Ferrous Sulfate 308 mg 09/21/20 10:00 10/03/20 10:47 Ferrous Sulfate FEEDTUBE 308 mg DAILY JAE Administration Haloperidol Lactate 5 mg 09/11/20 19:10 Haldol IM Q6H PRN Agitation Hydralazine HCl 10 mg 09/10/20 22:23 09/14/20 05:46 Apresoline IV 10 mg Q6H PRN Administration Blood Pressure Sodium Chloride 1,000 mls @ 50 mls/hr 09/29/20 13:45 10/01/20 22:28 Nacl 0.9% 1000 Ml IV 50 mls/hr DIRECT JAE Administration Insulin Human Lispro 0 unit 09/19/20 12:00 10/03/20 05:06 Humalog SUB-Q Not Given Q6HR JAE Protocol Lansoprazole 30 mg 09/29/20 23:00 10/03/20 10:47 Prevacid Solutab FEEDTUBE 30 mg BID JAE Administration Loperamide HCl 2 mg 09/30/20 18:46 10/01/20 17:55 Imodium PO 2 mg Q2H PRN Administration Diarrhea Multivitamins 5 ml 09/18/20 10:00 10/03/20 10:48 Centrum Liq PO 5 ml QDAY JAE Administration Sertraline HCl 50 mg 09/02/20 10:00 10/03/20 10:47 Zoloft PO 50 mg DAILY JAE Administration Simple Syrup 15 ml 09/30/20 11:03 Simple Syrup FEEDTUBE PRN PRN Hypoglycemia Simple Syrup 30 ml 09/30/20 11:03 Simple Syrup FEEDTUBE PRN PRN Hypoglycemia Sodium Bicarbonate 325 mg 09/30/20 11:03 Sodium Bicarbonate FEEDTUBE PRN PRN For Clogged Feeding Tube Sodium Chloride 10 ml 09/02/20 10:00 10/03/20 10:49 Sodium Chloride Flush Syringe 10 Ml IV Not Given BID JAE Nutrition/Malnutrition Assess - Dietary Evaluation Nutrition/Malnutrition Findings: Nutrition Notes Start: 09/03/20 13:19 Freq: Status: Active Protocol: Document 10/02/20 13:16 AB (Rec: 10/02/20 13:23 AB [id number]) Co-Sign 10/02/20 13:16 MK Nutrition Notes Initial or Follow up Reassessment Current Diagnosis Acute Kidney Injury,CKD(stage I-IV),Diabetes,Sepsis Other Pertinent Diagnosis COVID-19 (+), pneu, anemia, bilat BKA, erosive esophagitis , sacral wound Current Diet Nepro 1.8 at 40 ml/hr Labs/Tests K 5.5 BUN 40 Cr 1.9 BG 227 Pertinent Medications Humalog Ferrous Sulfate Rocaltrol Height 5 ft 6 in Weight 103 kg [place] Body Weight (kg) 59.09 BMI 36.6 Weight Status Obese Subjective/Other Information F/U for TF tolerance. Per RN, pt is doing bolus feedings. Per RN, pt is waiting to be discharged d/t current TF regimen (Nepro w/ Carb Steady) being too expensive. Senior Electrical Design Engineer talked with MD about hyperkalemia and need for Nepro right now. okay with Osmolite 1.5 with higher K. Percent of energy/protein needs met: 100%/100% Burn Absent Trauma Absent GI Symptoms None Difficulty In Swallowing Current % PO Negligible Minimum of two criteria No physical signs of malnutrition #2 Nutrition Diagnosis Increased nutrient needs ( specify in comment below) Comments: protein Diagnosis Progress(for reassessment Continues documentation) #1 Nutrition Diagnosis Inadequate oral intake Diagnosis Progress(for reassessment Continues documentation) Is patient on ventilator? No Is Patient Ambulatory and/or Out of Bed No REE-([facility]-confined to bed) 1926.912 Kcal/Kg value to use for calculation 16 Approximate Energy Requirements Using 1648 kcal/Kg Calculation Used for Recommendations Kcal/kg Additional Notes Protein: 65-122g (0.8-1.5g/kg using AdjBW 81kg) Fluid: 1ml/kcal Nutrition Intervention Change Diet Order: Change TF Nutrition Support: Osmolite 1.5 at 50 ml/hr. Flush with 150 ml q4h Kcal 1,800 Protein (gm) 75 Fluid (mL) 914 Goal #1 Meet at least 80% of energy and protein needs via TF. Goal #2 TF tolerance Anticipated Discharge Needs: TF Follow-Up By: 10/06/20 Additional Comments F/U for TF tolerance
[2020-10-04] MEDS: INSULIN LISPRO 100 UNIT/ML VIAL 3 mL SUB-Q SCH ×5 (01:30→23:08)
[2020-10-04 06:55] LABS: Hematocrit 20.3 % (30.3-42.9); Hemoglobin 6.6 gm/dl (10.1-14.3); Mean Corpuscular HGB Conc 32 % (30-34); Mean Corpuscular Volume 88 fl (79-97); Platelet Count 151 K/mm3 (140-440)
[2020-10-04 07:11] LABS: Calcium 8.4 mg/dL (8.4-10.2)
[2020-10-04] MEDS ORDERED: SODIUM CHLORIDE 0.9% 500 ML 500 ML IV ONE (07:45)
--- NOTE | 2020-10-04 07:48 | Progress Note ---
Assessment and Plan Assessment and plan: --S/P Cardiorespiratory arrest on 09/17/20 Intubated on vent, pulmonary critical, cardiology following Patient was weaned and extubated yesterday Today patient is alert and awake on nasal cannula oxygen -- Acute delirium/acute metabolic encephalopathy Etiology unknown, likely initially was metabolic Significantly improved, neuro, psych consult as needed --Sepsis ;Due to COVID-19 pneumonia Received complete treatment,Blood culture NTD --Septic shock, status post pressor following cardiac arrest BP now stable, continue to monitor --COVID-19 pneumonia, POA Coronavirus protocol: Coronavirus PCR is positive, contact precaution, isolation precautions, prone positioning while in bed, Not a candidate for remdesivir due to renal failure Continue dexamethasone, s/p convalescent plasma --Acute on chronic anemia Due to chronic GI bleed and iron deficiency Status post transfusion of 3 units PRBC, PPI. Continue to monitor for GI bleed As per GI, does not look like patient is having GI bleed at this time Advance diet as tolerated --Possible GI bleed, chronic Advance diet, GI on board Recommended to manage medically --Acute kidney injury (DIRK) with acute tubular necrosis (ATN) Continue to monitor renal function Nephrology following closely --Hypernatremia Continue isotonic solution Nephrology on board --Bilateral lower extremity DVT, chronic Consulted vascular surgeon for consideration of IVC filter placement. As per vascular surgery, patient is not a good candidate for IVC filter pl acement INR 2.74. GI recommended to treat with aspirin only --Diabetes type II Accu-Chek sliding scale coverage ADA diet Insulin as needed --Ongoing tobacco use; Smoking cessation counseling Nicotine patch as needed --EPIXTASIS --DVT prophylaxis, Anticoagulation --full code status Bedside swallow eval versus speech therapy swallow eval Patient is stable to be transferred out of ICU to medical floor. Physical therapy occupational therapy The high probability of a clinically significant, sudden or life threatening deterioration of the [YE[employer] W[employer]ER, CVS, respiratory, renal, GI] system(s) required my full and direct attention, intervention and personal management. The aggregate critical care time was [35] minutes. This time is in addition to time spent performing reported procedures but includes the following: [x] Data Review and interpretation [x] Patient assessment and monitoring of vital signs [x] Documentation [x] Medication orders and management Plan of care reviewed with the patient and her nurse Brief History; 64 YO Female with HTN, DM, Anemia, PVD, Nicotine Dependence, positive coronavirus test recently at [place] presented to the emergency room for further evaluation. Patient states that she has experienced subjective fever, generalized weakness, body aches, shortness of breath, nausea, multiple loose stools, lower extremity edema over the past 1 week with progressively worsening symptoms over the past 3 to 4 days prior to presentation. Here, patient found to be hypotensive with a systolic blood pressure ranging from 53-94. Patient was also hypothermic with a body temperature of 93.3 F. Patient met criteria for sepsis protocol and found to have bilateral pneumonia, metabolic acidosis, acute kidney injury. Patient admitted to telemetry due to increased risk of multisystem decompensation. Patient initiated on coronavirus protocol. Coronavirus PCR has been ordered, Patient remained hypotensive in spite of IV fluid resuscitation therapy. Patient subsequently upgraded to IMCU. Her repeat COVID-19 test was positive. She was treated with dexamethasone daily for 10 days. Remdesivir could not be given because of worsening renal function. Did receive convalescent plasma. Patient was downgraded to MedSurg. Patient did have on and off delirium recovering restrain. But she was clinically improving and was planning for discharge. On 09/17 morning she developed cardiorespiratory arrest following a coffee-ground emesis. Patient was intubated and transferred to ICU, critical care was consulted, placed on pressor support for hypotension. Family updated and wanted to continue aggressive care. s/p extubation today. daily course: 09/03. While in the ER, patient had an ultrasound Doppler performed that showed bilateral DVT involving the iliac veins. Patient was started on heparin drip. ID consulted for COVID-19 and nephrology consulted for DIRK. Patient seen and examined at bedside this morning. She has no complaints this morning. Her hemoglobin dropped to 6.4 this morning. Patient will get transfused 1 unit of PRBCs. Later this p.m., was notified by nurse that patient is having tarry dark stool and hematemesis. Heparin drip discontinued. Patient started on PPI drip and made n.p.o. GI is has been consulted. Patient will need to have an upper endoscopy. She has bilateral lower extremity DVT and will need vascular surgery evaluation to determine if she is a candidate for IVC filter placement. 09/04. Patient seen and examined at bedside this morning. Labs reviewed showed hemoglobin 5.3. Patient will receive 2 units PRBCs. FFP also ordered. GI evaluation pending. Continue PPIs. Vascular surgeon to see to determine if patient is a candidate for IVC filter placement for DVT. 09/05. Hb stable this morning. GI on board. On PPI drip. 09/06. Gastroenterology and vascular surgery recommendations reviewed. Patient not a good candidate for IVC filter placement due to location of the clot/thrombosis. Plan is for patient to have anticoagulation on while monitoring hemoglobin. Patient's INR is more than 2 at this time so we will hold anticoagulation for now and monitor hemoglobin. Plan to initiate anticoagulation when INR is less than 2. We will preferably use heparin products as she has a high chance of bleeding. Continue to monitor hemoglobin. Hb 7.3 this a.m. 09/07. Hemoglobin 8.2 this AM. No clear signs of GI bleed. Her INR is 2.74. No need for initiation of AC for now as she INR is already therapeutic. Plan is to monitor for bleeding and if she remains stable, she will be started on anticoagulation for her bilateral DVT. Vascular surgery following-patient not a candidate for IVC catheter placement. GI recommendations appreciated 09/08: Patient is nonreactive to COVID-19 antibody, per ID order for convalescent plasma. Continue supportive care, follow clinically 09/09: Pending convalescent plasma transfusion, continue to follow inflammatory markers. Monitor H&H. Plan to start on aspirin tomorrow if INR and H&H stable 09/10: hb dropped to 6.8, transfuse one unit, discussed with GI - no plan for endoscopy now, cont to follow clinically 09/11: patient didn't get transfusion yesterday. became very agitated today, ord ered as needed haldol, cont iv fluid. monitor clinically 09/12: placed on restrain o/n. cont supportive care, lost IV line - ordered for midline. pending PRBC transfusion 09/13: monitor h/h, patient more clam today, continue supportive care, follow BMP - Na and Cr has been improving 09/14: cont to monitor, follow BMP, follow h/h. oral intake improved per RN 09/15: If h/h stable and Cr cont to improves will d/c in a day or two 09/16; spoke with daughter and updated her with patient's clinical condition. family willing to accept the patient tomorrow. RN reported some Nose bleeding earlier today, but now resolved. repeat h/h stable 09/17: had respiratory/cardiac arrest this am. patient transferred to ICU. updated family. will get CT head, patient now intubated, start on bicarbonate drip 09/18; remains unresponsive, NG tube placed and noted bolld from the NG tube, discussed with GI - recommended PRBC/FFP transfusion. patient remains unresponsive w/o sedation and intubated. Called daughter and updated. 09/19: - Patient had OG tube with initial bloody secretions on insertion but currently with dark greenish output. No active bloody output from the OG tube. Rectal tube with dark greenish bilious output. No clear signs of active on-going GI bleeding. Off levophed. Continue to monitor H&H, transfuse as needed. Patient remains unresponsive without any sedation. Poor prognosis which I discussed with the family 09/20: cont supportive care, wean off vent as tolerated. Updated family by phone 09/21: s/p extubation today. Continue to assess mental status. Continue s upportive care. We will stop the bicarbonate drip and start sodium bicarbonate with feeding tube. We will continue half-normal saline for now and monitor BMP daily, ordered speech eval. 09/22; patient was extubated yesterday, today doing well on nasal cannula oxygen, will request for swallow eval, and ordered diet as tolerated Will downgrade her to medical floor, she is still agitated will renew her restraints. Closely monitor DC planning per case management 09/23: Recurrent nosebleed. Rhino Rocket placed in the left nare. Afrin ordered twice daily. Aspiration precautions at this time. No worsening oxygen demand. Will monitor for additional 24 hours. Discharge planning from them. Discussed with nurses at bedside and also with patient. SCDs for DVT prophylaxis discontinue chemical chemoprophylaxis. 09/24: No further bleeding, possible Rhino rocket was replaced as it looks d ifferent, continue Afrin, MONITOR H/H and PLT. 09/25: Clinically stable continue Afrin nose packing is out. Will reevaluate swallowing. Awaiting for cardiology clearance for possible PEG if continues to fail swallowing evaluation. Encourage movement as much as possible due to risk of dvt development. discussed with family 09/26; Continue supportive care, no further bleeding reported. will keep NPO midnight monday to monday for possible PEG placement patient still failed swallow evaluation per speech re-evaluation 'Received a repeat order for an evaluation. Patient was assessed on 09/23/20. NPO was recommended at the time due to her inability to participate and poor swallowing ability. Patient is unchanged from two days prior and is not appropriate for po consumption. She holds the bolus in the oral cavity and fails to initiate a swallow which places her at risk for aspiration. PEG placement is recommended for this patient. No further recommendations.' Due to labile BP will add patch of clonidine. 09/27: BP stable. Await reevaluation by speech and possible PEG placement prior to discharge. 09/28: Patient will need PEG placement patient still hypercoagulable with increased INR greater than 2 will give vitamin K and FFP and anticipate PEG placement tomorrow prior to discharge to SNF. 09/29 Patient for PEG placement today AND CAN BE DISCHARGED IN AM, high risk for rebleed on anticoagulation. 09/30: Patient pending discharge. Tube feeds started today. Have discussed with the daughter and the son patient will be coming home. 10/01: Patient noted hypoxia today, CT chest negative for PE. Restarted on oxygen and will be discharged on oxygen, FAMILY NOW REQUESTING PLACEMENT 10/02: Patient underwent thoracentesis today for pleural effusion with no complications. Will recheck oxygen saturation in a.m. to see if thoracentesis did make a difference will follow results. Chest x-ray reviewed shows improved aeration. Tube feed changed to Osmolite. Patient also noted with hyperkalemia Kayexalate was given will recheck in a.m. Discharge is pending arrangement of all home devices. Family has fluctuated back and forth as to taking patient home versus placement. 10/03: Patient clinically stable hemoglobin is stable respiratory status has improved significantly. Awaiting discharge. 10/04: Noted gradual trend down in hemoglobin to 6.6 will give a unit of blood today. Patient is awaiting arrangements for home supplies and I understand that this will be done on Monday she is stable for discharge following transfusion. She does have noted oropharyngeal dysphagia - s/p egd/peg tube placement. tube feeds per nutrition recommendations. post peg care daily. gastric/duodenal avm's - numerous seen on endoscopy without active bleeding; iron replacement therapy 2-3 times per day and monitor labs. As a result also has been taken off antiplatelets and anticoagulant History Interval history: Patient seen and examined this morning, no new complaints tolerating diet. Review of labs showed low hemoglobin today. No overt bleed noted. Hospitalist Physical - Physical exam Narrative exam: General appearance: Present: no acute distress, well-nourished, - EENT Eyes: Present: PERRL, EOM intact, rhino rocket inplace. - Neck Neck: Present: supple, normal ROM - Respiratory Respiratory effort: normal Respiratory: bilateral: diminished, rhonchi, negative: rales, wheezing - Cardiovascular Rhythm: regular Heart Sounds: Present: S1 & S2 - Extremities Extremities: no ischemia, No edema - Abdominal General gastrointestinal: PEG tube in place, soft, non-tender, non-distended, normal bowel sounds - Integumentary Integumentary: Present: clear, warm - Psychiatric Psychiatric: appropriate mood/affect, cooperative - Neurologic Neurologic: moves all extremities - Patient Problems - Constitutional Vitals: Temp Pulse Resp BP Pulse Ox 97.4 F L 62 16 138/61 94 10/04/20 03:53 10/04/20 03:53 10/04/20 03:53 10/04/20 03:53 10/04/20 03:53 General appearance: Present: no acute distress, well-nourished Results - Labs CBC & Chem 7: 10/04/20 05:30 10/04/20 05:30 Labs: Laboratory Last Values WBC 10.6 K/mm3 (4.5-11.0) 10/04/20 05:30 RBC 2.30 M/mm3 (3.65-5.03) L 10/04/20 05:30 Hgb 6.6 gm/dl (10.1-14.3) L 10/04/20 05:30 Hct 20.3 % (30.3-42.9) L 10/04/20 05:30 MCV 88 fl (79-97) 10/04/20 05:30 MCH 29 pg (28-32) 10/04/20 05:30 MCHC 32 % (30-34) 10/04/20 05:30 RDW 19.0 % (13.2-15.2) H 10/04/20 05:30 Plt Count 151 K/mm3 (140-440) 10/04/20 05:30 Lymph % (Auto) Interior Surface Insulation Worker 09/22/20 08:00 [place] % (Auto) Interior Surface Insulation Worker 09/22/20 08:00 Eos % (Auto) Interior Surface Insulation Worker 09/22/20 08:00 Baso % (Auto) Interior Surface Insulation Worker 09/22/20 08:00 Lymph # (Auto) Interior Surface Insulation Worker 09/22/20 08:00 [place] # (Auto) Interior Surface Insulation Worker 09/22/20 08:00 Eos # (Auto) 0.0 K/mm3 (0.0-0.4) 09/08/20 05:18 Baso # (Auto) 0.0 K/mm3 (0.0-0.1) 09/08/20 05:18 Add Manual Diff Complete 10/03/20 07:40 Total Counted 100 10/03/20 07:40 Seg Neutrophils % Interior Surface Insulation Worker 09/22/20 08:00 Seg Neuts % (Manual) 89.0 % (40.0-70.0) H 10/03/20 07:40 Band Neutrophils % 0 % 10/03/20 07:40 Lymphocytes % (Manual) 4.0 % (13.4-35.0) L 10/03/20 07:40 Reactive Lymphs % (Man) 0 % 10/03/20 07:40 Monocytes % (Manual) 1.0 % (0.0-7.3) 10/03/20 07:40 Eosinophils % (Manual) 3.0 % (0.0-4.3) 10/03/20 07:40 Basophils % (Manual) 1.0 % (0.0-1.8) 10/03/20 07:40 Metamyelocytes % 1.0 % 10/03/20 07:40 Myelocytes % 1.0 % 10/03/20 07:40 Promyelocytes % 0 % 10/03/20 07:40 Blast Cells % 0 % 10/03/20 07:40 Nucleated RBC % 1.0 % (0.0-0.9) H 10/03/20 07:40 Seg Neutrophils # 9.5 K/mm3 (1.8-7.7) H 09/08/20 05:18 Seg Neutrophils # Man 13.6 K/mm3 (1.8-7.7) H 10/03/20 07:40 Band Neutrophils # 0.0 K/mm3 10/03/20 07:40 Lymphocytes # (Manual) 0.6 K/mm3 (1.2-5.4) L 10/03/20 07:40 Abs React Lymphs (Man) 0.0 K/mm3 10/03/20 07:40 Monocytes # (Manual) 0.2 K/mm3 (0.0-0.8) 10/03/20 07:40 Eosinophils # (Manual) 0.5 K/mm3 (0.0-0.4) H 10/03/20 07:40 Basophils # (Manual) 0.2 K/mm3 (0.0-0.1) H 10/03/20 07:40 Metamyelocytes # 0.2 K/mm3 10/03/20 07:40 Myelocytes # 0.2 K/mm3 10/03/20 07:40 Promyelocytes # 0.0 K/mm3 10/03/20 07:40 Blast Cells # 0.0 K/mm3 10/03/20 07:40 WBC Morphology Not Reportable 10/03/20 07:40 Hypersegmented Neuts Not Reportable 10/03/20 07:40 Hyposegmented Neuts Not Reportable 10/03/20 07:40 Hypogranular Neuts Not Reportable 10/03/20 07:40 Smudge Cells Not Reportable 10/03/20 07:40 Toxic Granulation Not Reportable 10/03/20 07:40 Toxic Vacuolation Not Reportable 10/03/20 07:40 Dohle Bodies Not Reportable 10/03/20 07:40 Pelger-Huet Anomaly Not Reportable 10/03/20 07:40 Ignacia Rods Not Reportable 10/03/20 07:40 Platelet Estimate Consistent w auto 10/03/20 07:40 Clumped Platelets Not Reportable 10/03/20 07:40 Plt Clumps, EDTA Not Reportable 10/03/20 07:40 Large Platelets Not Reportable 10/03/20 07:40 Giant Platelets Not Reportable 10/03/20 07:40 Platelet Satelliting Not Reportable 10/03/20 07:40 Plt Morphology Comment Not Reportable 10/03/20 07:40 RBC Morphology Not Reportable 10/03/20 07:40 Dimorphic RBCs Not Reportable 10/03/20 07:40 Polychromasia Not Reportable 10/03/20 07:40 Hypochromasia 1+ 10/03/20 07:40 Poikilocytosis 1+ 10/03/20 07:40 Anisocytosis 1+ 10/03/20 07:40 Microcytosis Not Reportable 10/03/20 07:40 Macrocytosis Not Reportable 10/03/20 07:40 Spherocytes Not Reportable 10/03/20 07:40 Pappenheimer Bodies Not Reportable 10/03/20 07:40 Sickle Cells Not Reportable 10/03/20 07:40 Target Cells Not Reportable 10/03/20 07:40 Tear Drop Cells Not Reportable 10/03/20 07:40 Ovalocytes Rare 10/03/20 07:40 Helmet Cells Not Reportable 10/03/20 07:40 Horvath-Mabel Bodies Not Reportable 10/03/20 07:40 [place] Rings Not Reportable 10/03/20 07:40 Flora Cells 1+ 10/03/20 07:40 Bite Cells Not Reportable 10/03/20 07:40 Crenated Cell Not Reportable 10/03/20 07:40 Elliptocytes Rare 10/03/20 07:40 Acanthocytes (Spur) Few 10/03/20 07:40 Rouleaux Not Reportable 10/03/20 07:40 Hemoglobin C Crystals Not Reportable 10/03/20 07:40 Schistocytes Rare 10/03/20 07:40 Malaria parasites Not Reportable 10/03/20 07:40 Molina Bodies Not Reportable 10/03/20 07:40 Hem Pathologist Commnt No 10/03/20 07:40 PT 17.5 Sec. (12.2-14.9) H 09/29/20 06:25 INR 1.45 (0.87-1.13) H 09/29/20 06:25 APTT 29.2 Sec. (24.2-36.6) 09/02/20 13:52 D-Dimer 1076.18 ng/mlDDU (0-234) H 09/01/20 21:55 Heparin Anti-Xa Level 0.94 U.I./ml (0.3-0.7) H 09/03/20 05:17 ABG pH 7.441 (7.320-7.450) 09/21/20 03:25 POC ABG pCO2 28.2 mmHg (32.0-48.0) L 09/21/20 03:25 POC ABG pO2 112.5 mmHg (83-108) H 09/21/20 03:25 POC ABG HCO3 18.8 09/21/20 03:25 POC ABG Base Excess -4.5 09/21/20 03:25 ABG Hemoglobin 9.4 (12.0-17.5) L 09/21/20 03:25 ABG Sodium 136.3 mmol/L (136.0-145.0) 09/21/20 03:25 ABG Potassium 4.4 mmol/L (3.40-4.50) 09/21/20 03:25 ABG Chloride 110.0 mmol/L (98-107) H 09/21/20 03:25 ABG Glucose 163 mg/dL (65-95) H 09/21/20 03:25 FiO2 40.0 09/21/20 03:25 Sodium 144 mmol/L (137-145) 10/04/20 05:30 Potassium 5.1 mmol/L (3.6-5.0) H 10/04/20 05:30 Chloride 109.4 mmol/L (98-107) H 10/04/20 05:30 Carbon Dioxide 25 mmol/L (22-30) 10/04/20 05:30 Anion Gap 15 mmol/L 10/04/20 05:30 BUN 47 mg/dL (7-17) H 10/04/20 05:30 Creatinine 2.1 mg/dL (0.6-1.2) H 10/04/20 05:30 Estimated GFR 29 ml/min 10/04/20 05:30 BUN/Creatinine Ratio 22 % 10/04/20 05:30 Glucose 233 mg/dL (65-100) H 10/04/20 05:30 POC Glucose 199 mg/dL (70-105) H 10/04/20 05:42 Lactic Acid 0.60 mmol/L (0.7-2.0) L 09/02/20 08:10 Calcium 8.4 mg/dL (8.4-10.2) 10/04/20 05:30 Phosphorus 3.60 mg/dL (2.5-4.5) 09/25/20 15:25 Magnesium 2.20 mg/dL (1.7-2.3) 09/14/20 19:57 Iron 28 ug/dL (37-170) L 09/07/20 09:13 TIBC 188 mcg/dL (250-450) L 09/07/20 09:13 Ferritin 313.5 ng/mL (10.0-200.0) H 09/01/20 21:55 Total Bilirubin 0.70 mg/dL (0.1-1.2) 09/19/20 04:29 AST 29 units/L (5-40) 09/19/20 04:29 ALT 43 units/L (7-56) 09/19/20 04:29 Alkaline Phosphatase 185 units/L (35-129) H 09/19/20 04:29 Lactate Dehydrogenase 435 units/L (91-180) H 09/01/20 21:55 C-Reactive Protein 2.30 mg/dL (0.00-1.30) H 09/01/20 21:55 NT-Pro-B Natriuret Pep 04487 pg/mL (0-900) H 09/01/20 21:55 Serum Total Protein 4.3 g/dL (6.1-8.1) L 09/16/20 13:44 Total Protein 4.3 g/dL (6.3-8.2) L 09/19/20 04:29 Albumin 2.1 g/dL (3.9-5) L 09/19/20 04:29 Albumin/Globulin Ratio 1.0 % 09/19/20 04:29 Fxfsg-0-Xwuwbqtdo 0.5 g/dL (0.2-0.3) H 09/16/20 13:44 Euefm-0-Wfldynusq 0.6 g/dL (0.5-0.9) 09/16/20 13:44 Beta Globulins 0.3 g/dL (0.2-0.5) 09/16/20 13:44 Gamma Globulins 0.8 g/dL (0.8-1.7) 09/16/20 13:44 Abnorm Protein Band 1 see below 09/16/20 13:44 PEP Interpretation see below H 09/16/20 13:44 Vitamin B12 843.2 pg/mL (211-911) 09/07/20 09:13 Procalcitonin 0.10 ng/mL (<0.15) 09/01/20 21:55 TSH 0.735 mlU/mL (0.270-4.200) 09/02/20 00:45 Free T4 0.92 ng/dL (0.76-1.46) 09/02/20 00:45 Free T4 0.94 ng/dL (0.76-1.46) 09/02/20 00:45 PTH Intact 820.4 pg/mL (15-65) H 09/04/20 05:18 Arterial Blood Glucose 163 mg/dL (65-95) H 09/21/20 03:25 Arterial Blood Ionized Calcium 4.7 mg/dL (4.6-5.3) 09/21/20 03:25 Urine Color Elena (Yellow) 09/02/20 03:44 Urine Turbidity Cloudy (Clear) 09/02/20 03:44 Urine pH 7.0 (5.0-7.0) 09/02/20 03:44 Ur Specific [place] 1.015 (1.003-1.030) 09/02/20 03:44 Urine Protein >500 mg/dL (Negative) 09/02/20 03:44 Urine Glucose (UA) Neg mg/dL (Negative) 09/02/20 03:44 Urine Ketones Neg mg/dL (Negative) 09/02/20 03:44 Urine Blood Neg (Negative) 09/02/20 03:44 Urine Nitrite Neg (Negative) 09/02/20 03:44 Urine Bilirubin Neg (Negative) 09/02/20 03:44 Urine Urobilinogen < 2.0 mg/dL (<2.0) 09/02/20 03:44 Ur Leukocyte Esterase Neg (Negative) 09/02/20 03:44 Urine WBC (Auto) < 1.0 /HPF (0.0-6.0) 09/02/20 03:44 Urine RBC (Auto) < 1.0 /HPF (0.0-6.0) 09/02/20 03:44 U Epithel Cells (Auto) < 1.0 /HPF (0-13.0) 09/02/20 03:44 Urine Bacteria (Auto) 2+ /HPF (Negative) 09/02/20 03:44 Urine Mucus Few /HPF 09/02/20 03:44 Urine Creatinine 43.2 mg/dL (0.1-20.0) H 09/06/20 06:52 Protein/Creatinin Ratio 6.90 09/06/20 06:52 Urine Sodium 84 mmol/L 09/06/20 06:52 Urine Total Protein 298 mg/dL (5-11.8) H 09/06/20 06:52 DEMARCUS Screen Negative (Negative) 09/17/20 00:10 Proteinase 3 (PR3) Ab <1.0 AI (<1.0) 09/17/20 00:10 Myeloperoxidase Ab <1.0 AI (<1.0) 09/17/20 00:10 Glomerular Base Mem IgG See scanned result 09/16/20 13:44 Complement C3 82 mg/dL (83-193) L 09/17/20 00:10 Complement C4 26 mg/dL (15-57) 09/17/20 00:10 C. difficile Tox (PCR) Negative (Negative) 09/02/20 13:05 Coronavirus (PCR) Negative (Negative) 09/30/20 Unknown SARS-CoV-2 IgG Ab Nonreactive (NonReactive) 09/02/20 08:10 Blood Type O POSITIVE 09/17/20 13:49 Antibody Screen Negative 09/17/20 13:49 Crossmatch See Detail 09/17/20 13:49 - Diagnostic Impressions Diagnostic Impressions: Echocardiogram 09/22/20 13:29 Transthoracic Echocardiogram Indication: Cardiopulmonary arrest BP: 175/66 HR: 71 Conclusions *4-chamber dilated cardiomyopathy. *Global left ventricular systolic function is mildly decreased. *The estimated ejection fraction is 40-45%. *Mild concentric left ventricular hypertrophy is observed. *There is mild to moderate mitral regurgitation. *There is mild to moderate tricuspid regurgitation. *There is moderately-severe pulmonary hypertension. *The right ventricular systolic pressure is calculated at 62 mmHg. *There is a minimial pericardial effusion. Findings Left Ventricle: The left ventricular chamber size is mildly dilated. Mild concentric left ventricular hypertrophy is observed. Global left ventricular systolic function is mildly decreased. The estimated ejection fraction is 40-45%. Left Atrium: The left atrium is moderately dilated. Right Ventricle: The right ventricle is mildly dilated. The right ventricular global systolic function is mildly reduced. Right Atrium: The right atrium is moderately dilated. Aortic Valve: The aortic valve is trileaflet. The aortic valve leaflets are moderately thickened. There is no evidence of aortic regurgitation. There is no evidence of aortic stenosis. Mitral Valve: The mitral valve leaflets are mildly thickened. There is mild to moderate mitral regurgitation. There is no evidence of mitral stenosis. Tricuspid Valve: The tricuspid valve leaflets are normal. There is mild to moderate tricuspid regurgitation. The right ventricular systolic pressure is calculated at 62 mmHg. There is evidence of severe pulmonary hypertension. Pulmonic Valve: There is mild pulmonic regurgitation. Pericardium: There is a minimial pericardial effusion. Aorta: There is no dilatation of the ascending aorta. There is no dilatation of the aortic root. Venous: The inferior vena cava is dilated. Measurements Chambers 2D Name Value Normal Range IVSd (2D) 1.17 cm (0.6 - 1.1) LVPWd (2D) 1.15 cm (0.6 - 1.1) IVS:LVPW ratio (2D) 1.02 ratio - LVIDd (2D) 5 cm (3.7 - 5.6) LVIDs (2D) 3.71 cm (2 - 3.8) LV FS (Teichholz) (2D) 25.8 % - LV FS (cube) (2D) 25.8 % - EF Teichholz (2D) 50.4 % - Ao root diameter (2D) 2.6 cm (2 - 3.7) LA dimension (AP) 2D 5.1 cm (1.9 - 4) LA:Ao ratio (2D) 1.96 ratio - Volumes/Mass Name Value Normal Range LA ESV SP 4CH (MOD) 49 ml - LA ESV SP 2CH (MOD) 96 ml - LA ESV BP (MOD) 69 ml - LA ESV BP (MOD) index 33.2 ml/m2 - Diastolic/Systolic Function Name Value Normal Range MV E-wave Vmax 1.21 m/sec - MV deceleration time 254 msec - MV A-wave Vmax 1.12 m/sec - MV E:A ratio 1.1 ratio - Aortic Valve Name Value Normal Range AV VTI 31.1 cm - AV mean gradient 4 mmHg - LVOT diameter 2 cm - LVOT VTI 19.4 cm - LVOT mean gradient 2 mmHg - Mitral Valve Name Value Normal Range MV Vmax 1.44 m/sec - MV VTI 35.9 cm - MV peak gradient 8 mmHg - MV mean gradient 5 mmHg - MR Vmax 5.52 m/sec - Tricuspid Valve Name Value Normal Range TR Vmax 3.52 m/sec - TR peak gradient 50 mmHg - RVSP 62 mmHg - [place]/IV: Voiding Method Incontinent IV Catheter Type [Left Upper PICC Line arm] IV Catheter Type [Right INT / Saline Lock Forearm] IV Catheter Type [Left INT / Saline Lock Antecubital] IV Catheter Type [Right Hand] INT / Saline Lock IV Catheter Type [Right Upper Mid-line arm] IV Catheter Type [Right INT / Saline Lock External Jugular] Active Medications - Current Medications Current Medications: Generic Name Dose Route Start Last Admin Trade Name Freq PRN Reason Stop Dose Admin Amlodipine Besylate 10 mg 09/21/20 12:00 10/03/20 10:52 Amlodipine PO 10 mg DAILY JAE Administration Lipase/Protease/Amylase 1 each 09/30/20 11:03 Pancreaze 10,500 Unit FEEDTUBE PRN PRN For Clogged Feeding Tube Calcitriol 0.5 mcg 09/05/20 13:00 10/03/20 10:47 Rocaltrol PO 0.5 mcg QDAY JAE Administration Clonidine HCl 0.1 mg 09/26/20 10:00 10/03/20 10:48 Catapres-Tts Patch TD 0.1 mg Sa AJE Administration Dextrose 50 ml 09/11/20 19:09 09/27/20 05:59 D50w (25gm) Syringe IV 50 ml Q30MIN PRN Administration Hypoglycemia Protocol Ferrous Sulfate 308 mg 09/21/20 10:00 10/03/20 10:47 Ferrous Sulfate FEEDTUBE 308 mg DAILY JAE Administration Haloperidol Lactate 5 mg 09/11/20 19:10 Haldol IM Q6H PRN Agitation Hydralazine HCl 10 mg 09/10/20 22:23 09/14/20 05:46 Apresoline IV 10 mg Q6H PRN Administration Blood Pressure Sodium Chloride 1,000 mls @ 50 mls/hr 09/29/20 13:45 10/01/20 22:28 Nacl 0.9% 1000 Ml IV 50 mls/hr DIRECT JAE Administration Sodium Chloride 500 mls @ 0 mls/hr 10/04/20 07:45 Nacl 0.9% 500 Ml IV 10/04/20 07:46 ONCE ONE As Directed Insulin Human Lispro 0 unit 09/19/20 12:00 10/04/20 05:44 Humalog SUB-Q 2 unit Q6HR JAE Administration Protocol Lansoprazole 30 mg 09/29/20 23:00 10/03/20 22:21 Prevacid Solutab FEEDTUBE 30 mg BID JAE Administration Loperamide HCl 2 mg 09/30/20 18:46 10/01/20 17:55 Imodium PO 2 mg Q2H PRN Administration Diarrhea Multivitamins 5 ml 09/18/20 10:00 10/03/20 10:48 Centrum Liq PO 5 ml QDAY JAE Administration Sertraline HCl 50 mg 09/02/20 10:00 10/03/20 10:47 Zoloft PO 50 mg DAILY JAE Administration Simple Syrup 15 ml 09/30/20 11:03 Simple Syrup FEEDTUBE PRN PRN Hypoglycemia Simple Syrup 30 ml 09/30/20 11:03 Simple Syrup FEEDTUBE PRN PRN Hypoglycemia Sodium Bicarbonate 325 mg 09/30/20 11:03 Sodium Bicarbonate FEEDTUBE PRN PRN For Clogged Feeding Tube Sodium Chloride 10 ml 09/02/20 10:00 10/03/20 22:21 Sodium Chloride Flush Syringe 10 Ml IV Not Given BID JAE Nutrition/Malnutrition Assess - Dietary Evaluation Nutrition/Malnutrition Findings: Nutrition Notes Start: 09/03/20 13:1 9 Freq: Status: Active Protocol: Document 10/02/20 13:16 AB (Rec: 10/02/20 13:23 AB [id number]) Co-Sign 10/02/20 13:16 Nutrition Notes Initial or Follow up Reassessment Current Diagnosis Acute Kidney Injury,CKD(stage I-IV),Diabetes,Sepsis Other Pertinent Diagnosis COVID-19 (+), pneu, anemia, bilat BKA, erosive esophagitis , sacral wound Current Diet Nepro 1.8 at 40 ml/hr Labs/Tests K 5.5 BUN 40 Cr 1.9 BG 227 Pertinent Medications Humalog Ferrous Sulfate Rocaltrol Height 5 ft 6 in Weight 103 kg [place] Body Weight (kg) 59.09 BMI 36.6 Weight Status Obese Subjective/Other Information F/U for TF tolerance. Per RN, pt is doing bolus feedings. Per RN, pt is waiting to be discharged d/t current TF regimen (Nepro w/ Carb Steady) being too expensive. 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 okay with Osmolite 1.5 with higher K. Percent of energy/protein needs met: 100%/100% Burn Absent Trauma Absent GI Symptoms None Difficulty In Swallowing Current % PO Negligible Minimum of two criteria No physical signs of malnutrition #2 Nutrition Diagnosis Increased nutrient needs ( specify in comment below) Comments: protein Diagnosis Progress(for reassessment Continues documentation) #1 Nutrition Diagnosis Inadequate oral intake Diagnosis Progress(for reassessment Continues documentation) Is patient on ventilator? No Is Patient Ambulatory and/or Out of Bed No REE-([facility]-confined to bed) 1926.912 Kcal/Kg value to use for calculation 16 Approximate Energy Requirements Using 1648 kcal/Kg Calculation Used for Recommendations Kcal/kg Additional Notes Protein: 65-122g (0.8-1.5g/kg using AdjBW 81kg) Fluid: 1ml/kcal Nutrition Intervention Change Diet Order: Change TF Nutrition Support: Osmolite 1.5 at 50 ml/hr. Flush with 150 ml q4h Kcal 1,800 Protein (gm) 75 Fluid (mL) 914 Goal #1 Meet at least 80% of energy and protein needs via TF. Goal #2 TF tolerance Anticipated Discharge Needs: TF Follow-Up By: 10/06/20 Additional Comments F/U for TF tolerance
[2020-10-04] MEDS: amLODIPine 10 MG TAB PO SCH (10:36)
[2020-10-04] MEDS: SERTRALINE 50 MG TAB PO SCH (10:36)
[2020-10-04] MEDS: MULTIVITAMINS 5 ML ORAL LIQUID PO SCH (10:36)
[2020-10-04] MEDS: CALCITRIOL 0.5 MCG CAP PO SCH (10:36)
[2020-10-04] MEDS: FERROUS SULFATE 308 MG (62mg Elemental Iron) / 7 ML ELIXIR FEEDTUBE SCH (10:37)
[2020-10-04] MEDS: LANSOPRAZOLE 30 MG SOLUTAB FEEDTUBE SCH ×2 (10:37→23:08)
[2020-10-04] MEDS ORDERED: SODIUM POLYSTYRENE 15 GM/60 ML ORAL LIQD PO ONE (11:35)
--- NOTE | 2020-10-04 11:35 | Progress Note ---
Assessment and Plan 1. Acute kidney injury: DIRK secondary to combination of Vasomotor nephropathy and severe sepsis. Renal US negative for hydro. Monitor renal function. Prior Creatinine was 1.2 in 2014. Likely CKD stage 4. Renal prognosis is guarded. Avoid nephrotoxic agents. Meds dosage based on GFR. 2. FEN: Hyperkalemia, kayexalate ordered. Hyperchloremic Metabolic acidosis, improved, monitor. Hypernatremia, improved, monitor. Monitor lytes. 3. Nephrotic syndrome: Likely diabetic nephropathy. DEMARCUS, ANCA and GBM Ab are negative. Complements appears normal. SPEP; too small of M spike. Immunofixation pending. 4. Severe sepsis, POA, now with shock: Off pressors. 5. S/p Cardiac arrest. 6. Severe COVID infection: Seen by ID. 7. Acute hypoxic resp failure: Intubated post-arrest. S/p extubated. 8. Bilateral LE DVT, POA. 9. Microcytic anemia, POA: S/p PRBC. Monitor. Seen by GI. 10. Dysphagia: S/p PEG. 11. Thrombocytopenia, POA. Monitor. Subjective: Patient was not examined today. However the examination findings from other providers noted. The current and previous medical records are reviewed in detail as are laboratory and imaging data reviewed when appropriate. Medications being given are also reviewed. In addition the case has been discussed with the attending hospitalist and the nurse when needed. New renal recommendations as above. Examination: Subjective Date of service: 10/04/20 Principal diagnosis: Iron Def Anemia Objective - Vital Signs Vital signs: Vital Signs - 12hr 10/04/20 03:53 Temperature 97.4 F L Pulse Rate 62 Respiratory 16 Rate Blood Pressure 138/61 O2 Sat by Pulse 94 Oximetry - Lab 10/04/20 05:30 10/04/20 05:30 Most recent lab results ABG pH 7.441 (7.320-7.450) 09/21/20 03:25 Calcium 8.4 mg/dL (8.4-10.2) 10/04/20 05:30 Phosphorus 3.60 mg/dL (2.5-4.5) 09/25/20 15:25 Magnesium 2.20 mg/dL (1.7-2.3) 09/14/20 19:57 Urine Creatinine 43.2 mg/dL (0.1-20.0) H 09/06/20 06:52 Urine Sodium 84 mmol/L 09/06/20 06:52 Urine Total Protein 298 mg/dL (5-11.8) H 09/06/20 06:52 Medications & Allergies - Medications Allergies/Adverse Reactions: Allergies No Known Allergies Allergy (Unverified 02/14/14 19:23) Home Medications: Home Medications Medication Instructions Recorded Confirmed Last Taken Type Aspirin [[place] Aspirin] 81 mg PO DAILY 02/14/14 09/30/20 02/14/14 11:00 History Ferrous Sulfate [Feosol 325mg] 325 mg PO DAILY 02/14/14 09/30/20 02/14/14 11:00 History Sertraline [Zoloft] 50 mg PO DAILY 02/14/14 09/30/20 02/14/14 11:00 History hydroCHLOROthiazide 25 mg PO DAILY 02/14/14 09/30/20 02/14/14 11:00 History [Hydrochlorothiazide] Insulin Glargine [Lantus VIAL] 14 units SUB-Q QHS 30 Days 09/17/20 Unknown Rx Pantoprazole [Protonix TAB] 40 mg PO BIDAC #60 tablet 09/17/20 Unknown Rx calcitrioL [Rocaltrol] 0.5 mcg PO QDAY #30 capsule 09/17/20 Unknown Rx metOLazone [Zaroxolyn] 10 mg PO QDAY #30 tablet 09/17/20 Unknown Rx Lansoprazole Solutab [Prevacid 30 mg FEEDTUBE BID #30 tab.rapdis 09/30/20 Unknown Rx Solutab] Loperamide [Imodium] 2 mg PO Q2H PRN #30 capsule 09/30/20 Unknown Rx Multivitamins Liq [Multiple 5 ml PO QDAY #30 oral.liqd 09/30/20 Unknown Rx Vitamin Liq (Theragran)] amLODIPine 10 mg PO DAILY #60 tab 09/30/20 Unknown Rx Amoxicillin/Potassium Clav 1 each PO BID #5 tablet 10/03/20 Unknown Rx [Augmentin 875-125 Tablet] Active Medications: Generic Name Dose Route Start Last Admin Trade Name Freq PRN Reason Stop Dose Admin Amlodipine Besylate 10 mg 09/21/20 12:00 10/04/20 10:36 Amlodipine PO 10 mg DAILY JAE Administration Lipase/Protease/Amylase 1 each 09/30/20 11:03 Pancreaze 10,500 Unit FEEDTUBE PRN PRN For Clogged Feeding Tube Calcitriol 0.5 mcg 09/05/20 13:00 10/04/20 10:36 Rocaltrol PO 0.5 mcg QDAY JAE Administration Clonidine HCl 0.1 mg 09/26/20 10:00 10/03/20 10:48 Catapres-Tts Patch TD 0.1 mg Sa JAE Administration Dextrose 50 ml 09/11/20 19:09 09/27/20 05:59 D50w (25gm) Syringe IV 50 ml Q30MIN PRN Administration Hypoglycemia Protocol Ferrous Sulfate 308 mg 09/21/20 10:00 10/04/20 10:37 Ferrous Sulfate FEEDTUBE 308 mg DAILY JAE Administration Haloperidol Lactate 5 mg 09/11/20 19:10 Haldol IM Q6H PRN Agitation Hydralazine HCl 10 mg 09/10/20 22:23 09/14/20 05:46 Apresoline IV 10 mg Q6H PRN Administration Blood Pressure Sodium Chloride 1,000 mls @ 50 mls/hr 09/29/20 13:45 10/01/20 22:28 Nacl 0.9% 1000 Ml IV 50 mls/hr DIRECT JAE Administration Insulin Human Lispro 0 unit 09/19/20 12:00 10/04/20 05:44 Humalog SUB-Q 2 unit Q6HR JAE Administration Protocol Lansoprazole 30 mg 09/29/20 23:00 10/04/20 10:37 Prevacid Solutab FEEDTUBE 30 mg BID JAE Administration Loperamide HCl 2 mg 09/30/20 18:46 10/01/20 17:55 Imodium PO 2 mg Q2H PRN Administration Diarrhea Multivitamins 5 ml 09/18/20 10:00 10/04/20 10:36 Centrum Liq PO 5 ml QDAY JAE Administration Sertraline HCl 50 mg 09/02/20 10:00 10/04/20 10:36 Zoloft PO 50 mg DAILY JAE Administration Simple Syrup 15 ml 09/30/20 11:03 Simple Syrup FEEDTUBE PRN PRN Hypoglycemia Simple Syrup 30 ml 09/30/20 11:03 Simple Syrup FEEDTUBE PRN PRN Hypoglycemia Sodium Bicarbonate 325 mg 09/30/20 11:03 Sodium Bicarbonate FEEDTUBE PRN PRN For Clogged Feeding Tube Sodium Chloride 10 ml 09/02/20 10:00 10/04/20 10:37 Sodium Chloride Flush Syringe 10 Ml IV 10 ml BID JAE Administration Sodium Polystyrene Sulfonate 30 gm 10/04/20 11:35 Kionex PO 10/04/20 11:36 ONCE ONE
[2020-10-04 19:54] LABS: Hematocrit 24.4 % (30.3-42.9); Hemoglobin 8.2 gm/dl (10.1-14.3)
[2020-10-05] MEDS: INSULIN LISPRO 100 UNIT/ML VIAL 3 mL SUB-Q SCH ×2 (06:07→14:00)
[2020-10-05 06:39] LABS: Hematocrit 21.5 % (30.3-42.9); Hemoglobin 7.2 gm/dl (10.1-14.3); Mean Corpuscular HGB Conc 34 % (30-34); Mean Corpuscular Volume 84 fl (79-97); Red Blood Count 2.57 M/mm3 (3.65-5.03); Red Cell Distribution Width 16.7 % (13.2-15.2)
[2020-10-05 07:03] LABS: Calcium 8.7 mg/dL (8.4-10.2)
[2020-10-05 07:06] LABS: Platelet Count 156 K/mm3 (140-440)
[2020-10-05] MEDS ORDERED: SODIUM POLYSTYRENE 15 GM/60 ML ORAL LIQD PO NR (08:45)
--- NOTE | 2020-10-05 09:17 | Progress Note ---
Assessment and Plan 1. Acute kidney injury: DIRK secondary to combination of Vasomotor nephropathy and severe sepsis. Renal US negative for hydro. Monitor renal function. Prior Creatinine was 1.2 in 2014. Likely CKD stage 4. Renal prognosis is guarded. Avoid nephrotoxic agents. Meds dosage based on GFR. 2. FEN: Hyperkalemia, kayexalate ordered. Hyperchloremic Metabolic acidosis, improved, monitor. Hypernatremia, improved, monitor. Monitor lytes. 3. Nephrotic syndrome: Likely diabetic nephropathy. DEMARCUS, ANCA and GBM Ab are negative. Complements appears normal. SPEP; too small of M spike. Immunofixation pending. 4. Severe sepsis, POA, now with shock: Off pressors. 5. S/p Cardiac arrest. 6. Severe COVID infection: Seen by ID. 7. Acute hypoxic resp failure: Intubated post-arrest. S/p extubated. 8. Bilateral LE DVT, POA. 9. Microcytic anemia, POA: S/p PRBC. Monitor. Seen by GI. 10. Dysphagia: S/p PEG. 11. Thrombocytopenia, POA. Monitor. Subjective: Patient was seen and examined at the bedside. Examination: General appearance: well-developed, appears stated age, no distress HEENT: JAYCE Neck: Trachea midline Respiratory: ctab Cardiology: regular, S1S2, no murmur Gastrointestinal: normoactive bowel sounds, no tenderness, PEG tube noted Integumentary: no obvious rash Neurologic: alert, moving extremities, confused Ext: trace dependent edema, b/l BKA Subjective Date of service: 10/05/20 Principal diagnosis: Iron Def Anemia Objective - Vital Signs Vital signs: Vital Signs - 12hr 10/04/20 10/05/20 22:00 04:28 Temperature 98.8 F Pulse Rate 59 L Respiratory 20 Rate Blood Pressure 157/68 O2 Sat by Pulse 93 90 Oximetry - Lab 10/05/20 05:13 10/05/20 05:13 Most recent lab results ABG pH 7.441 (7.320-7.450) 09/21/20 03:25 Calcium 8.7 mg/dL (8.4-10.2) 10/05/20 05:13 Phosphorus 3.60 mg/dL (2.5-4.5) 09/25/20 15:25 Magnesium 2.20 mg/dL (1.7-2.3) 09/14/20 19:57 Urine Creatinine 43.2 mg/dL (0.1-20.0) H 09/06/20 06:52 Urine Sodium 84 mmol/L 09/06/20 06:52 Urine Total Protein 298 mg/dL (5-11.8) H 09/06/20 06:52 Medications & Allergies - Medications Allergies/Adverse Reactions: Allergies No Known Allergies Allergy (Unverified 02/14/14 19:23) Home Medications: Home Medications Medication Instructions Recorded Confirmed Last Taken Type Aspirin [[place] Aspirin] 81 mg PO DAILY 02/14/14 09/30/20 02/14/14 11:00 History Ferrous Sulfate [Feosol 325mg] 325 mg PO DAILY 02/14/14 09/30/20 02/14/14 11:00 History Sertraline [Zoloft] 50 mg PO DAILY 02/14/14 09/30/20 02/14/14 11:00 History hydroCHLOROthiazide 25 mg PO DAILY 02/14/14 09/30/20 02/14/14 11:00 History [Hydrochlorothiazide] Insulin Glargine [Lantus VIAL] 14 units SUB-Q QHS 30 Days 09/17/20 Unknown Rx Pantoprazole [Protonix TAB] 40 mg PO BIDAC #60 tablet 09/17/20 Unknown Rx calcitrioL [Rocaltrol] 0.5 mcg PO QDAY #30 capsule 09/17/20 Unknown Rx metOLazone [Zaroxolyn] 10 mg PO QDAY #30 tablet 09/17/20 Unknown Rx Lansoprazole Solutab [Prevacid 30 mg FEEDTUBE BID #30 tab.rapdis 09/30/20 Unknown Rx Solutab] Loperamide [Imodium] 2 mg PO Q2H PRN #30 capsule 09/30/20 Unknown Rx Multivitamins Liq [Multiple 5 ml PO QDAY #30 oral.liqd 09/30/20 Unknown Rx Vitamin Liq (Theragran)] amLODIPine 10 mg PO DAILY #60 tab 09/30/20 Unknown Rx Amoxicillin/Potassium Clav 1 each PO BID #5 tablet 10/03/20 Unknown Rx [Augmentin 875-125 Tablet] Active Medications: Generic Name Dose Route Start Last Admin Trade Name Freq PRN Reason Stop Dose Admin Amlodipine Besylate 10 mg 09/21/20 12:00 10/04/20 10:36 Amlodipine PO 10 mg DAILY JAE Administration Lipase/Protease/Amylase 1 each 09/30/20 11:03 Pancreshannan Mora 10,500 Unit FEEDTUBE PRN PRN For Clogged Feeding Tube Calcitriol 0.5 mcg 09/05/20 13:00 10/04/20 10:36 Rocaltrol PO 0.5 mcg QDAY JAE Administration Clonidine HCl 0.1 mg 09/26/20 10:00 10/03/20 10:48 Catapres-Tts Patch TD 0.1 mg Sa JAE Administration Dextrose 50 ml 09/11/20 19:09 09/27/20 05:59 D50w (25gm) Syringe IV 50 ml Q30MIN PRN Administration Hypoglycemia Protocol Ferrous Sulfate 308 mg 09/21/20 10:00 10/04/20 10:37 Ferrous Sulfate FEEDTUBE 308 mg DAILY JAE Administration Haloperidol Lactate 5 mg 09/11/20 19:10 Haldol IM Q6H PRN Agitation Hydralazine HCl 10 mg 09/10/20 22:23 09/14/20 05:46 Apresoline IV 10 mg Q6H PRN Administration Blood Pressure Sodium Chloride 1,000 mls @ 50 mls/hr 09/29/20 13:45 10/01/20 22:28 Nacl 0.9% 1000 Ml IV 50 mls/hr DIRECT JAE Administration Insulin Human Lispro 0 unit 09/19/20 12:00 10/05/20 06:07 Humalog SUB-Q 3 unit Q6HR JAE Administration Protocol Lansoprazole 30 mg 09/29/20 23:00 10/04/20 23:08 Prevacid Solutab FEEDTUBE 30 mg BID JAE Administration Loperamide HCl 2 mg 09/30/20 18:46 10/01/20 17:55 Imodium PO 2 mg Q2H PRN Administration Diarrhea Multivitamins 5 ml 09/18/20 10:00 10/04/20 10:36 Centrum Liq PO 5 ml QDAY JAE Administration Sertraline HCl 50 mg 09/02/20 10:00 10/04/20 10:36 Zoloft PO 50 mg DAILY JAE Administration Simple Syrup 15 ml 09/30/20 11:03 Simple Syrup FEEDTUBE PRN PRN Hypoglycemia Simple Syrup 30 ml 09/30/20 11:03 Simple Syrup FEEDTUBE PRN PRN Hypoglycemia Sodium Bicarbonate 325 mg 09/30/20 11:03 Sodium Bicarbonate FEEDTUBE PRN PRN For Clogged Feeding Tube Sodium Chloride 10 ml 09/02/20 10:00 10/04/20 23:08 Sodium Chloride Flush Syringe 10 Ml IV 10 ml BID JAE Administration Sodium Polystyrene Sulfonate 45 gm 10/05/20 08:45 Kionex PO 10/05/20 14:00 ONCE@0845 NR
[2020-10-05] MEDS ORDERED: hydroCHLOROthiazide 25 MG TAB PO NR (10:00)
[2020-10-05] MEDS: amLODIPine 10 MG TAB PO SCH (10:12)
[2020-10-05] MEDS: MULTIVITAMINS 5 ML ORAL LIQUID PO SCH (10:12)
[2020-10-05] MEDS: LANSOPRAZOLE 30 MG SOLUTAB FEEDTUBE SCH ×2 (10:12→22:47)
[2020-10-05] MEDS: CALCITRIOL 0.5 MCG CAP PO SCH (10:13)
[2020-10-05] MEDS: SERTRALINE 50 MG TAB PO SCH (10:13)
[2020-10-05] MEDS: FERROUS SULFATE 308 MG (62mg Elemental Iron) / 7 ML ELIXIR FEEDTUBE SCH (10:55)
--- NOTE | 2020-10-05 13:44 | Progress Note ---
Subjective Date of service: 10/05/20 Principal diagnosis: Iron Def Anemia Interval history: Assessment and plan: --S/P Cardiorespiratory arrest on 09/17/20 Intubated on vent, pulmonary critical, cardiology following Patient was weaned and extubated yesterday Today patient is alert and awake on nasal cannula oxygen -- Acute delirium/acute metabolic encephalopathy Etiology unknown, likely initially was metabolic Significantly improved, neuro, psych consult as needed --Sepsis ;Due to COVID-19 pneumonia Received complete treatment,Blood culture NTD --Septic shock, status post pressor following cardiac arrest BP now stable, continue to monitor --COVID-19 pneumonia, POA Coronavirus protocol: Coronavirus PCR is positive, contact precaution, isolation precautions, prone positioning while in bed, Not a candidate for remdesivir due to renal failure Continue dexamethasone, s/p convalescent plasma --Acute on chronic anemia Due to chronic GI bleed and iron deficiency Status post transfusion of 3 units PRBC, PPI. Continue to monitor for GI bleed As per GI, does not look like patient is having GI bleed at this time Advance diet as tolerated Hemoglobin 7.2 today Transfuse as needed Monitor H&H GI Recommended to manage medically --Acute on chronic kidney disease (DIRK) with acute tubular necrosis (ATN) Continue to monitor renal function Nephrology following Serum creatinine down to 1.9 Hyperkalemia serum potassium increased to 5.6 today(she was administered 30 mg of Kayexalate yesterday for serum potassium of 5.2) Kayexalate 45 g was ordered today Monitor electrolytes Discussed with nephrology --Hypernatremia Continue isotonic solution Nephrology on board --Bilateral lower extremity DVT, chronic Consulted vascular surgeon for consideration of IVC filter placement. As per vascular surgery, patient is not a good candidate for IVC filter plac ement INR 2.74. GI recommended to treat with aspirin only --Diabetes type II Accu-Chek sliding scale coverage ADA diet Insulin as needed --Ongoing tobacco use; Smoking cessation counseling Nicotine patch as needed --DVT prophylaxis, Anticoagulation --full code status Brief History; 64 YO Female with HTN, DM, Anemia, PVD, Nicotine Dependence, positive coronavirus test recently at [facility] presented to the emergency room for further evaluation. Patient states that she has experienced subjective fever, generalized weakness, body aches, shortness of breath, nausea, multiple loose stools, lower extremity edema over the past 1 week with progressively worsening symptoms over the past 3 to 4 days prior to presentation. Here, patient found to be hypotensive with a systolic blood pressure ranging from 53-94. Patient was also hypothermic with a body temperature of 93.3 F. Patient met criteria for sepsis protocol and found to have bilateral pneumonia, metabolic acidosis, acute kidney injury. Patient admitted to telemetry due to increased risk of multisystem decompensation. Patient initiated on coronavirus protocol. Coronavirus PCR has been ordered, Patient remained hypotensive in spite of IV fluid resuscitation therapy. Patient subsequently upgraded to IMCU. Her repeat COVID-19 test was positive. She was treated with dexamethasone daily for 10 days. Remdesivir could not be given because of worsening renal function. Did receive convalescent plasma. Patient was downgraded to MedSurg. Patient did have on and off delirium recovering restrain. But she was clinically improving and was planning for discharge. On 09/17 morning she developed cardiorespiratory arrest following a coffee-ground emesis. Patient was intubated and transferred to ICU, critical care was consulted, placed on pressor support for hypotension. Family updated and wanted to continue aggressive care. s/p extubation today. daily course: 09/03. While in the ER, patient had an ultrasound Doppler performed that showed bilateral DVT involving the iliac veins. Patient was started on heparin drip. ID consulted for COVID-19 and nephrology consulted for DIRK. Patient seen and examined at bedside this morning. She has no complaints this morning. Her hemoglobin dropped to 6.4 this morning. Patient will get transfused 1 unit of PRBCs. Later this p.m., was notified by nurse that patient is having tarry dark stool and hematemesis. Heparin drip discontinued. Patient started on PPI drip and made n.p.o. GI is has been consulted. Patient will need to have an upper endoscopy. She has bilateral lower extremity DVT and will need vascular surgery evaluation to determine if she is a candidate for IVC filter placement. 09/04. Patient seen and examined at bedside this morning. Labs reviewed showed hemoglobin 5.3. Patient will receive 2 units PRBCs. FFP also ordered. GI evaluation pending. Continue PPIs. Vascular surgeon to see to determine if patient is a candidate for IVC filter placement for DVT. 09/05. Hb stable this morning. GI on board. On PPI drip. 09/06. Gastroenterology and vascular surgery recommendations reviewed. Patient not a good candidate for IVC filter placement due to location of the clot/thrombosis. Plan is for patient to have anticoagulation on while monitoring hemoglobin. Patient's INR is more than 2 at this time so we will hold anticoagulation for now and monitor hemoglobin. Plan to initiate a nticoagulation when INR is less than 2. We will preferably use heparin products as she has a high chance of bleeding. Continue to monitor hemoglobin. Hb 7.3 this a.m. 09/07. Hemoglobin 8.2 this AM. No clear signs of GI bleed. Her INR is 2.74. No need for initiation of AC for now as she INR is already therapeutic. Plan is to monitor for bleeding and if she remains stable, she will be started on anticoagulation for her bilateral DVT. Vascular surgery following-patient not a candidate for IVC catheter placement. GI recommendations appreciated 09/08: Patient is nonreactive to COVID-19 antibody, per ID order for convalescent plasma. Continue supportive care, follow clinically 09/09: Pending convalescent plasma transfusion, continue to follow inflammatory markers. Monitor H&H. Plan to start on aspirin tomorrow if INR and H&H stable 09/10: hb dropped to 6.8, transfuse one unit, discussed with GI - no plan for endoscopy now, cont to follow clinically 09/11: patient didn't get transfusion yesterday. became very agitated today, ordered as needed haldol, cont iv fluid. monitor clinically 09/12: placed on restrain o/n. cont supportive care, lost IV line - ordered for midline. pending PRBC transfusion 09/13: monitor h/h, patient more clam today, continue supportive care, follow BMP - Na and Cr has been improving 09/14: cont to monitor, follow BMP, follow h/h. oral intake improved per RN 09/15: If h/h stable and Cr cont to improves will d/c in a day or two 09/16; spoke with daughter and updated her with patient's clinical condition. family willing to accept the patient tomorrow. RN reported some Nose bleeding earlier today, but now resolved. repeat h/h stable 09/17: had respiratory/cardiac arrest this am. patient transferred to ICU. updated family. will get CT head, patient now intubated, start on bicarbonate drip 09/18; remains unresponsive, NG tube placed and noted bolld from the NG tube, discussed with GI - recommended PRBC/FFP transfusion. patient remains unresponsive w/o sedation and intubated. Called daughter and updated. 09/19: - Patient had OG tube with initial bloody secretions on insertion but currently with dark greenish output. No active bloody output from the OG tube. Rectal tube with dark greenish bilious output. No clear signs of active on-going GI bleeding. Off levophed. Continue to monitor H&H, transfuse as needed. Patient remains unresponsive without any sedation. Poor prognosis which I discussed with the family 09/20: cont supportive care, wean off vent as tolerated. Updated family by phone 09/21: s/p extubation today. Continue to assess mental status. Continue supportive care. We will stop the bicarbonate drip and start sodium bicarbonate with feeding tube. We will continue half-normal saline for now and monitor BMP daily, ordered speech eval. 09/22; patient was extubated yesterday, today doing well on nasal cannula oxygen, will request for swallow eval, and ordered diet as tolerated Will downgrade her to medical floor, she is still agitated will renew her restraints. Closely monitor DC planning per case management 09/23: Recurrent nosebleed. Rhino Rocket placed in the left nare. Afrin ordere d twice daily. Aspiration precautions at this time. No worsening oxygen demand. Will monitor for additional 24 hours. Discharge planning from them. Discussed with nurses at bedside and also with patient. SCDs for DVT prophylaxis discontinue chemical chemoprophylaxis. 09/24: No further bleeding, possible Rhino rocket was replaced as it looks different, continue Afrin, MONITOR H/H and PLT. 09/25: Clinically stable continue Afrin nose packing is out. Will reevaluate swallowing. Awaiting for cardiology clearance for possible PEG if continues to fail swallowing evaluation. Encourage movement as much as possible due to risk of dvt development. discussed with family 09/26; Continue supportive care, no further bleeding reported. will keep NPO midnight monday to monday for possible PEG placement patient still failed swallow evaluation per speech re-evaluation 'Received a repeat order for an evaluation. Patient was assessed on 09/23/20. NPO was recommended at the time due to her inability to participate and poor swallowing ability. Patient is unchanged from two days prior and is not appropriate for po consumption. She holds the bolus in the oral cavity and fails to initiate a swallow which places her at risk for aspiration. PEG placement is recommended for this patient. No further recommendations.' Due to labile BP will add patch of clonidine. 09/27: BP stable. Await reevaluation by speech and possible PEG placement prior to discharge. 09/28: Patient will need PEG placement patient still hypercoagulable with increased INR greater than 2 will give vitamin K and FFP and anticipate PEG placement tomorrow prior to discharge to SNF. 09/29 Patient for PEG placement today AND CAN BE DISCHARGED IN AM, high risk for rebleed on anticoagulation. 09/30: Patient pending discharge. Tube feeds started today. Have discussed with the daughter and the son patient will be coming home. 10/01: Patient noted hypoxia today, CT chest negative for PE. Restarted on oxygen and will be discharged on oxygen, FAMILY NOW REQUESTING PLACEMENT 10/02: Patient underwent thoracentesis today for pleural effusion with no complications. Will recheck oxygen saturation in a.m. to see if thoracentesis did make a difference will follow results. Chest x-ray reviewed shows improved aeration. Tube feed changed to Osmolite. Patient also noted with hyperkalemia Kayexalate was given will recheck in a.m. Discharge is pending arrangement of a ll home devices. Family has fluctuated back and forth as to taking patient home versus placement. 10/03: Patient clinically stable hemoglobin is stable respiratory status has improved significantly. Awaiting discharge. 10/04: Noted gradual trend down in hemoglobin to 6.6 will give a unit of blood today. Patient is awaiting arrangements for home supplies and I understand that this will be done on Monday she is stable for discharge following transfusion. She does have noted oropharyngeal dysphagia - s/p egd/peg tube placement. tube feeds per nutrition recommendations. post peg care daily. gastric/duodenal avm's - numerous seen on endoscopy without active bleeding; iron replacement therapy 2-3 times per day and monitor labs. As a result also has been taken off antiplatelets and anticoagulant 10/05 patient is awake and alert. No specific complaints. Poor historian and slow to respond but responds appropriately. Lab results reviewed Serum potassium trending up. Discussed with nephrology. Possible discharge tomorrow if hyperkalemia is resolved Objective - Constitutional Vitals: Vital Signs - hr 10/05/20 10/05/20 10/05/20 04:28 10:12 10:36 Temperature 98.8 F 98.0 F Pulse Rate 59 L 670 H 51 L Respiratory 20 20 Rate Blood Pressure 157/68 155/89 148/63 O2 Sat by Pulse 90 96 Oximetry General appearance: Present: no acute distress - EENT Eyes: PERRL, EOM intact ENT: hearing intact, clear oral mucosa - Neck Neck: supple, normal ROM - Respiratory Respiratory effort: normal Respiratory: bilateral: CTA, diminished, negative: rhonchi - Breasts Breasts: deferred - Cardiovascular Rhythm: regular Heart Sounds: Present: S1 & S2 Extremities: abnormal (Bilateral BKA) - Gastrointestinal General gastrointestinal: Present: soft, non-tender Rectal Exam: deferred - Genitourinary Female genitourinary: deferred - Integumentary Integumentary: clear - Musculoskeletal Musculoskeletal: generalized weakness - Psychiatric Psychiatric: appropriate mood/affect - Labs CBC & Chem 7: 10/05/20 05:13 10/05/20 05:13 Labs: Abnormal lab results 10/04/20 10/04/20 10/04/20 Range/Units 12:52 13:27 18:35 WBC (4.5-11.0) K/mm3 RBC (3.65-5.03) M/mm3 Hgb (10.1-14.3) gm/dl Hct (30.3-42.9) % RDW (13.2-15.2) % Potassium (3.6-5.0) mmol/L Chloride (98-107) mmol/L BUN (7-17) mg/dL Creatinine (0.6-1.2) mg/dL Glucose (65-100) mg/dL POC Glucose 183 H 226 H (70-105) mg/dL Crossmatch See Detail 10/04/20 10/04/20 10/05/20 Range/Units 19:36 21:42 05:13 WBC 12.7 H (4.5-11.0) K/mm3 RBC 2.57 L (3.65-5.03) M/mm3 Hgb 8.2 L 7.2 L (10.1-14.3) gm/dl Hct 24.4 L 21.5 L (30.3-42.9) % RDW 16.7 H (13.2-15.2) % Potassium (3.6-5.0) mmol/L Chloride (98-107) mmol/L BUN (7-17) mg/dL Creatinine (0.6-1.2) mg/dL Glucose (65-100) mg/dL POC Glucose 228 H (70-105) mg/dL Crossmatch 10/05/20 10/05/20 10/05/20 Range/Units 05:13 06:02 11:39 WBC (4.5-11.0) K/mm3 RBC (3.65-5.03) M/mm3 Hgb (10.1-14.3) gm/dl Hct (30.3-42.9) % RDW (13.2-15.2) % Potassium 5.6 H (3.6-5.0) mmol/L Chloride 109.4 H (98-107) mmol/L BUN 52 H (7-17) mg/dL Creatinine 1.9 H (0.6-1.2) mg/dL Glucose 246 H (65-100) mg/dL POC Glucose 213 H 239 H (70-105) mg/dL Crossmatch
[2020-10-05] MEDS ORDERED: SODIUM POLYSTYRENE 15 GM/60 ML ORAL LIQD PO ONE (21:59)
[2020-10-06] MEDS: INSULIN LISPRO 100 UNIT/ML VIAL 3 mL SUB-Q SCH ×5 (00:30→17:47)
[2020-10-06 06:55] LABS: Hematocrit 22.4 % (30.3-42.9); Hemoglobin 7.5 gm/dl (10.1-14.3); Mean Corpuscular HGB Conc 33 % (30-34); Mean Corpuscular Volume 87 fl (79-97); Red Blood Count 2.58 M/mm3 (3.65-5.03); Red Cell Distribution Width 17.8 % (13.2-15.2)
[2020-10-06 06:57] LABS: Platelet Count 153 K/mm3 (140-440)
[2020-10-06 07:05] LABS: Calcium 8.5 mg/dL (8.4-10.2)
[2020-10-06] MEDS ORDERED: INSULIN REGULAR, HUMAN 100 UNIT/ML 3ML VIAL IV ONE (08:15)
[2020-10-06] MEDS ORDERED: SODIUM POLYSTYRENE 15 GM/60 ML ORAL LIQD PO NR (08:30)
[2020-10-06] MEDS ORDERED: INSULIN REGULAR, HUMAN 100 UNIT/ML 3ML VIAL IV NR (08:30)
[2020-10-06] MEDS: SERTRALINE 50 MG TAB PO SCH (09:05)
[2020-10-06] MEDS: LANSOPRAZOLE 30 MG SOLUTAB FEEDTUBE SCH (09:05)
[2020-10-06] MEDS: MULTIVITAMINS 5 ML ORAL LIQUID PO SCH (09:05)
[2020-10-06] MEDS: CALCITRIOL 0.5 MCG CAP PO SCH (09:05)
[2020-10-06] MEDS: amLODIPine 10 MG TAB PO SCH (09:05)
[2020-10-06] MEDS: FERROUS SULFATE 308 MG (62mg Elemental Iron) / 7 ML ELIXIR FEEDTUBE SCH (09:06)
--- NOTE | 2020-10-06 10:33 | Progress Note ---
Assessment and Plan 1. Acute kidney injury: DIRK secondary to combination of Vasomotor nephropathy and severe sepsis. Renal US negative for hydro. Monitor renal function. Prior Creatinine was 1.2 in 2014. Likely CKD stage 4. Renal prognosis is guarded. Avoid nephrotoxic agents. Meds dosage based on GFR. 2. FEN: Hyperkalemia, s/p kayexalate, improved. Change tube feeding to Nepro. Hyperchloremic Metabolic acidosis, improved, monitor. Hypernatremia, improved, monitor. Monitor lytes. 3. Nephrotic syndrome: Likely diabetic nephropathy. DEMARCUS, ANCA and GBM Ab are negative. Complements appears normal. SPEP; too small of M spike. Immunofixation pending. 4. Severe sepsis, POA, now with shock: Off pressors. 5. S/p Cardiac arrest. 6. Severe COVID infection: Seen by ID. 7. Acute hypoxic resp failure: Intubated post-arrest. S/p extubated. 8. Bilateral LE DVT, POA. 9. Microcytic anemia, POA: S/p PRBC. Monitor. Seen by GI. 10. Dysphagia: S/p PEG. 11. Thrombocytopenia, POA. Monitor. Subjective: Patient was seen and examined at the bedside. Examination: General appearance: well-developed, appears stated age, no distress HEENT: JAYCE Neck: Trachea midline Respiratory: ctab Cardiology: regular, S1S2, no murmur Gastrointestinal: normoactive bowel sounds, no tenderness, PEG tube noted Integumentary: no obvious rash Neurologic: alert, moving extremities, confused Ext: trace dependent edema, b/l BKA Subjective Date of service: 10/06/20 Principal diagnosis: Iron Def Anemia Objective - Vital Signs Vital signs: Vital Signs - 12hr 10/06/20 10:12 Respiratory 18 Rate - Lab 10/06/20 06:34 10/06/20 14:14 Most recent lab results ABG pH 7.441 (7.320-7.450) 09/21/20 03:25 Calcium 8.5 mg/dL (8.4-10.2) 10/06/20 06:34 Phosphorus 3.60 mg/dL (2.5-4.5) 09/25/20 15:25 Magnesium 2.20 mg/dL (1.7-2.3) 09/14/20 19:57 Urine Creatinine 43.2 mg/dL (0.1-20.0) H 09/06/20 06:52 Urine Sodium 84 mmol/L 09/06/20 06:52 Urine Total Protein 298 mg/dL (5-11.8) H 09/06/20 06:52 Medications & Allergies - Medications Allergies/Adverse Reactions: Allergies No Known Allergies Allergy (Unverified 02/14/14 19:23) Home Medications: Home Medications Medication Instructions Recorded Confirmed Last Taken Type Aspirin [[place] Aspirin] 81 mg PO DAILY 02/14/14 09/30/20 02/14/14 11:00 History Ferrous Sulfate [Feosol 325mg] 325 mg PO DAILY 02/14/14 09/30/20 02/14/14 11:00 History Sertraline [Zoloft] 50 mg PO DAILY 02/14/14 09/30/20 02/14/14 11:00 History hydroCHLOROthiazide 25 mg PO DAILY 02/14/14 09/30/20 02/14/14 11:00 History [Hydrochlorothiazide] Insulin Glargine [Lantus VIAL] 14 units SUB-Q QHS 30 Days 09/17/20 Unknown Rx Pantoprazole [Protonix TAB] 40 mg PO BIDAC #60 tablet 09/17/20 Unknown Rx calcitrioL [Rocaltrol] 0.5 mcg PO QDAY #30 capsule 09/17/20 Unknown Rx metOLazone [Zaroxolyn] 10 mg PO QDAY #30 tablet 09/17/20 Unknown Rx Lansoprazole Solutab [Prevacid 30 mg FEEDTUBE BID #30 tab.rapdis 09/30/20 Unknown Rx Solutab] Loperamide [Imodium] 2 mg PO Q2H PRN #30 capsule 09/30/20 Unknown Rx Multivitamins Liq [Multiple 5 ml PO QDAY #30 oral.liqd 09/30/20 Unknown Rx Vitamin Liq (Theragran)] amLODIPine 10 mg PO DAILY #60 tab 09/30/20 Unknown Rx Amoxicillin/Potassium Clav 1 each PO BID #5 tablet 10/03/20 Unknown Rx [Augmentin 875-125 Tablet] Sodium Polystyrene [Kionex] 15 gm PO QDAY 3 Days bottle 10/06/20 Unknown Rx Active Medications: Generic Name Dose Route Start Last Admin Trade Name Freq PRN Reason Stop Dose Admin Amlodipine Besylate 10 mg 09/21/20 12:00 10/06/20 09:05 Amlodipine PO 10 mg DAILY JAE Administration Lipase/Protease/Amylase 1 each 09/30/20 11:03 Pancreshannan Mora 10,500 Unit FEEDTUBE PRN PRN For Clogged Feeding Tube Calcitriol 0.5 mcg 09/05/20 13:00 10/06/20 09:05 Rocaltrol PO 0.5 mcg QDAY JAE Administration Clonidine HCl 0.1 mg 09/26/20 10:00 10/03/20 10:48 Catapres-Tts Patch TD 0.1 mg Sa JAE Administration Dextrose 50 ml 09/11/20 19:09 09/27/20 05:59 D50w (25gm) Syringe IV 50 ml Q30MIN PRN Administration Hypoglycemia Protocol Ferrous Sulfate 308 mg 09/21/20 10:00 10/06/20 09:06 Ferrous Sulfate FEEDTUBE 308 mg DAILY JAE Administration Haloperidol Lactate 5 mg 09/11/20 19:10 Haldol IM Q6H PRN Agitation Hydralazine HCl 10 mg 09/10/20 22:23 09/14/20 05:46 Apresoline IV 10 mg Q6H PRN Administration Blood Pressure Insulin Human Lispro 0 unit 09/19/20 12:00 10/06/20 07:00 Humalog SUB-Q 6 unit Q6HR JAE Administration Protocol Insulin Human Regular 10 unit 10/06/20 08:30 10/06/20 08:47 Humulin R IV 10/06/20 12:00 10 unit ONCE@0830 NR Administration Lansoprazole 30 mg 09/29/20 23:00 10/06/20 09:05 Prevacid Solutab FEEDTUBE 30 mg BID JAE Administration Loperamide HCl 2 mg 09/30/20 18:46 10/01/20 17:55 Imodium PO 2 mg Q2H PRN Administration Diarrhea Multivitamins 5 ml 09/18/20 10:00 10/06/20 09:05 Centrum Liq PO 5 ml QDAY JAE Administration Sertraline HCl 50 mg 09/02/20 10:00 10/06/20 09:05 Zoloft PO 50 mg DAILY JAE Administration Simple Syrup 15 ml 09/30/20 11:03 Simple Syrup FEEDTUBE PRN PRN Hypoglycemia Simple Syrup 30 ml 09/30/20 11:03 Simple Syrup FEEDTUBE PRN PRN Hypoglycemia Sodium Bicarbonate 325 mg 09/30/20 11:03 Sodium Bicarbonate FEEDTUBE PRN PRN For Clogged Feeding Tube Sodium Chloride 10 ml 09/02/20 10:00 10/06/20 09:06 Sodium Chloride Flush Syringe 10 Ml IV 10 ml BID JAE Administration Sodium Polystyrene Sulfonate 60 gm 10/06/20 08:30 10/06/20 08:46 Kionex PO 10/06/20 12:00 60 gm ONCE@0830 NR Administration
--- NOTE | 2020-10-06 10:34 | Progress Note ---
Assessment and Plan Assessment and plan: Brief History; 64 YO Female with HTN, DM, Anemia, PVD, Nicotine Dependence, positive coronavirus test recently at [facility] presented to the emergency room for further evaluation. Patient states that she has experienced subjective fever, generalized weakness, body aches, shortness of breath, nausea, multiple loose stools, lower extremity edema over the past 1 week with progressively worsening symptoms over the past 3 to 4 days prior to presentation. Here, patient found to be hypotensive with a systolic blood pressure ranging from 53-94. Patient was also hypothermic with a body temperature of 93.3 F. Patient met criteria for sepsis protocol and found to have bilateral pneumonia, metabolic acidosis, acute kidney injury. Patient admitted to telemetry due to increased risk of multisystem decompensation. Patient initiated on coronavirus protocol. Coronavirus PCR has been ordered, Patient remained hypotensive in spite of IV fluid resuscitation therapy. Patient subsequently upgraded to IMCU. Her repeat COVID-19 test was positive. She was treated with dexamethasone daily for 10 days. Remdesivir could not be given because of worsening renal function. Did receive convalescent plasma. Patient was downgraded to [facility]Sur. Patient did have on and off delirium recovering restrain. But she was clinically improving and was planning for discharge. On 09/17 morning she developed cardiorespiratory arrest following a coffee-ground emesis. Patient was intubated and transferred to ICU, critical care was consulted, placed on pressor support for hypotension. Family updated and wanted to continue aggressive care. s/p extubation today. --S/P Cardiorespiratory arrest on 09/17/20 Intubated on vent, pulmonary critical, cardiology following Patient was weaned and extubated yesterday Today patient is alert and awake on nasal cannula oxygen -- Acute delirium/acute metabolic encephalopathy Etiology unknown, likely initially was metabolic Significantly improved, neuro, psych consult as needed --Sepsis ;Due to COVID-19 pneumonia Received complete treatment,Blood culture NTD --Septic shock, status post pressor following cardiac arrest BP now stable, continue to monitor --COVID-19 pneumonia, POA Coronavirus protocol: Coronavirus PCR is positive, contact precaution, isolation precautions, prone positioning while in bed, Not a candidate for remdesivir due to renal failure Continue dexamethasone, s/p convalescent plasma --Acute on chronic anemia Due to chronic GI bleed and iron deficiency Status post transfusion of 3 units PRBC, PPI. Continue to monitor for GI bleed As per GI, does not look like patient is having GI bleed at this time Advance diet as tolerated Hemoglobin 7.2 today Transfuse as needed Monitor H&H GI Recommended to manage medically --Acute on chronic kidney disease (DIRK) with acute tubular necrosis (ATN) Continue to monitor renal function Nephrology following Serum creatinine down to 1.9 Hyperkalemia serum potassium increased to 5.6 today(she was administered 30 mg of Kayexalate yesterday for serum potassium of 5.2) Kayexalate 45 g was ordered today Monitor electrolytes Discussed with nephrology --Hypernatremia Continue isotonic solution Nephrology on board --Bilateral lower extremity DVT, chronic Consulted vascular surgeon for consideration of IVC filter placement. As per vascular surgery, patient is not a good candidate for IVC filter placement INR 2.74. GI recommended to treat with aspirin only --Diabetes type II Accu-Chek sliding scale coverage ADA diet Insulin as needed --Ongoing tobacco use; Smoking cessation counseling Nicotine patch as needed --DVT prophylaxis, Anticoagulation --full code status daily course: 09/03. While in the ER, patient had an ultrasound Doppler performed that showed bilateral DVT involving the iliac veins. Patient was started on heparin drip. ID consulted for COVID-19 and nephrology consulted for DIRK. Patient seen and examined at bedside this morning. She has no complaints this morning. Her hemoglobin dropped to 6.4 this morning. Patient will get babin sfused 1 unit of PRBCs. Later this p.m., was notified by nurse that patient is having tarry dark stool and hematemesis. Heparin drip discontinued. Patient started on PPI drip and made n.p.o. GI is has been consulted. Patient will need to have an upper endoscopy. She has bilateral lower extremity DVT and will need vascular surgery evaluation to determine if she is a candidate for IVC filter placement. 09/04. Patient seen and examined at bedside this morning. Labs reviewed showed hemoglobin 5.3. Patient will receive 2 units PRBCs. FFP also ordered. GI evaluation pending. Continue PPIs. Vascular surgeon to see to determine if patient is a candidate for IVC filter placement for DVT. 09/05. Hb stable this morning. GI on board. On PPI drip. 09/06. Gastroenterology and vascular surgery recommendations reviewed. Patient not a good candidate for IVC filter placement due to location of the clot/thrombosis. Plan is for patient to have anticoagulation on while monitoring hemoglobin. Patient's INR is more than 2 at this time so we will hold anticoagulation for now and monitor hemoglobin. Plan to initiate anticoagulation when INR is less than 2. We will preferably use heparin products as she has a high chance of bleeding. Continue to monitor hemoglobin. Hb 7.3 this a.m. 09/07. Hemoglobin 8.2 this AM. No clear signs of GI bleed. Her INR is 2.74. No need for initiation of AC for now as she INR is already therapeutic. Plan is to monitor for bleeding and if she remains stable, she will be started on anticoagulation for her bilateral DVT. Vascular surgery following-patient not a candidate for IVC catheter placement. GI recommendations appreciated 09/08: Patient is nonreactive to COVID-19 antibody, per ID order for convalescent plasma. Continue supportive care, follow clinically 09/09: Pending convalescent plasma transfusion, continue to follow inflammatory markers. Monitor H&H. Plan to start on aspirin tomorrow if INR and H&H stable 09/10: hb dropped to 6.8, transfuse one unit, discussed with GI - no plan for endoscopy now, cont to follow clinically 09/11: patient didn't get transfusion yesterday. became very agitated today, ordered as needed haldol, cont iv fluid. monitor clinically 09/12: placed on restrain o/n. cont supportive care, lost IV line - ordered for midline. pending PRBC transfusion 09/13: monitor h/h, patient more clam today, continue supportive care, follow BMP - Na and Cr has been improving 09/14: cont to monitor, follow BMP, follow h/h. oral intake improved per RN 09/15: If h/h stable and Cr cont to improves will d/c in a day or two 09/16; spoke with daughter and updated her with patient's clinical condition. family willing to accept the patient tomorrow. RN reported some Nose bleeding earlier today, but now resolved. repeat h/h stable 09/17: had respiratory/cardiac arrest this am. patient transferred to ICU. updated family. will get CT head, patient now intubated, start on bicarbonate drip 09/18; remains unresponsive, NG tube placed and noted bolld from the NG tube, discussed with GI - recommended PRBC/FFP transfusion. patient remains unresponsive w/o sedation and intubated. Called daughter and updated. 09/19: - Patient had OG tube with initial bloody secretions on insertion but currently with dark greenish output. No active bloody output from the OG tube. Rectal tube with dark greenish bilious output. No clear signs of active on-going GI bleeding. Off levophed. Continue to monitor H&H, transfuse as needed. Patient remains unresponsive without any sedation. Poor prognosis which I disc ussed with the family 09/20: cont supportive care, wean off vent as tolerated. Updated family by shilpi ugalde 09/21: s/p extubation today. Continue to assess mental status. Continue supportive care. We will stop the bicarbonate drip and start sodium bicarbonate with feeding tube. We will continue half-normal saline for now and monitor BMP daily, ordered speech eval. 09/22; patient was extubated yesterday, today doing well on nasal cannula oxygen, will request for swallow eval, and ordered diet as tolerated Will downgrade her to medical floor, she is still agitated will renew her restraints. Closely monitor DC planning per case management 09/23: Recurrent nosebleed. Rhino Rocket placed in the left nare. Afrin ordered twice daily. Aspiration precautions at this time. No worsening oxygen demand. Will monitor for additional 24 hours. Discharge planning from them. Discussed with nurses at bedside and also with patient. SCDs for DVT prophylaxis discontinue chemical chemoprophylaxis. 09/24: No further bleeding, possible Rhino rocket was replaced as it looks different, continue Afrin, MONITOR H/H and PLT. 09/25: Clinically stable continue Afrin nose packing is out. Will reevaluate swallowing. Awaiting for cardiology clearance for possible PEG if continues to fail swallowing evaluation. Encourage movement as much as possible due to risk of dvt development. discussed with family 09/26; Continue supportive care, no further bleeding reported. will keep NPO m idnight monday to monday for possible PEG placement patient still failed swallow evaluation per speech re-evaluation 'Received a repeat order for an evaluation. Patient was assessed on 09/23/20. NPO was recommended at the time due to her inability to participate and poor swallowing ability. Patient is unchanged from two days prior and is not appropriate for po consumption. She holds the bolus in the oral cavity and fails to initiate a swallow which places her at risk for aspiration. PEG placement is recommended for this patient. No further recommendations.' Due to labile BP will add patch of clonidine. 09/27: BP stable. Await reevaluation by speech and possible PEG placement prior to discharge. 09/28: Patient will need PEG placement patient still hypercoagulable with incre ased INR greater than 2 will give vitamin K and FFP and anticipate PEG placement tomorrow prior to discharge to SNF. 09/29 Patient for PEG placement today AND CAN BE DISCHARGED IN AM, high risk for rebleed on anticoagulation. 09/30: Patient pending discharge. Tube feeds started today. Have discussed with the daughter and the son patient will be coming home. 10/01: Patient noted hypoxia today, CT chest negative for PE. Restarted on oxygen and will be discharged on oxygen, FAMILY NOW REQUESTING PLACEMENT 10/02: Patient underwent thoracentesis today for pleural effusion with no complications. Will recheck oxygen saturation in a.m. to see if thoracentesis did make a difference will follow results. Chest x-ray reviewed shows improved aeration. Tube feed changed to Osmolite. Patient also noted with hyperkalemia Kayexalate was given will recheck in a.m. Discharge is pending arrangement of all home devices. Family has fluctuated back and forth as to taking patient home versus placement. 10/03: Patient clinically stable hemoglobin is stable respiratory status has improved significantly. Awaiting discharge. 10/04: Noted gradual trend down in hemoglobin to 6.6 will give a unit of blood today. Patient is awaiting arrangements for home supplies and I understand that this will be done on Monday she is stable for discharge following transfusion. She does have noted oropharyngeal dysphagia - s/p egd/peg tube placement. tube feeds per nutrition recommendations. post peg care daily. gastric/duodenal avm's - numerous seen on endoscopy without active bleeding; iron replacement therapy 2-3 times per day and monitor labs. As a result also has been taken off antiplatelets and anticoagulant 10/05 patient is awake and alert. No specific complaints. Poor historian and slow to respond but responds appropriately. Lab results reviewed Serum potassium trending up. Discussed with nephrology. Possible discharge tomorrow if hyperkalemia is resolved 10/06: Patient continues to tolerate tube feeds. No overt GI bleed at this time noted hemoglobin is stable unfortunately discharge has been delayed this p atient's potassium has persistently remained elevated in the setting of renal failure. Today we will give 10 units of insulin IV and also 60 of Kayexalate. We will repeat potassium by itself 1 PM and if normalized patient will be discharged also asked the nursing staff to have dietitian review her dietary orders to ensure the potassium content is within accepted parameters. Nepro ideally was recommended for the patient but appears to be too expensive for family to afford. Hospitalist Physical - Constitutional Vitals: Temp Pulse Resp BP Pulse Ox 97.9 F 75 18 130/63 94 10/05/20 15:09 10/05/20 22:00 10/06/20 10:12 10/05/20 15:09 10/05/20 21:58 General appearance: Present: no acute distress Results - Labs CBC & Chem 7: 10/06/20 06:34 10/06/20 06:34 Labs: Laboratory Last Values WBC 9.8 K/mm3 (4.5-11.0) 10/06/20 06:34 RBC 2.58 M/mm3 (3.65-5.03) L 10/06/20 06:34 Hgb 7.5 gm/dl (10.1-14.3) L 10/06/20 06:34 Hct 22.4 % (30.3-42.9) L 10/06/20 06:34 MCV 87 fl (79-97) 10/06/20 06:34 MCH 29 pg (28-32) 10/06/20 06:34 MCHC 33 % (30-34) 10/06/20 06:34 RDW 17.8 % (13.2-15.2) H 10/06/20 06:34 Plt Count 153 K/mm3 (140-440) 10/06/20 06:34 Lymph % (Auto) Benefits Consulting Analyst 09/22/20 08:00 [place] % (Auto) Benefits Consulting Analyst 09/22/20 08:00 Eos % (Auto) Benefits Consulting Analyst 09/22/20 08:00 Baso % (Auto) Benefits Consulting Analyst 09/22/20 08:00 Lymph # (Auto) Benefits Consulting Analyst 09/22/20 08:00 [place] # (Auto) Benefits Consulting Analyst 09/22/20 08:00 Eos # (Auto) 0.0 K/mm3 (0.0-0.4) 09/08/20 05:18 Baso # (Auto) 0.0 K/mm3 (0.0-0.1) 09/08/20 05:18 Add Manual Diff Complete 10/03/20 07:40 Total Counted 100 10/03/20 07:40 Seg Neutrophils % Benefits Consulting Analyst 09/22/20 08:00 Seg Neuts % (Manual) 89.0 % (40.0-70.0) H 10/03/20 07:40 Band Neutrophils % 0 % 10/03/20 07:40 Lymphocytes % (Manual) 4.0 % (13.4-35.0) L 10/03/20 07:40 Reactive Lymphs % (Man) 0 % 10/03/20 07:40 Monocytes % (Manual) 1.0 % (0.0-7.3) 10/03/20 07:40 Eosinophils % (Manual) 3.0 % (0.0-4.3) 10/03/20 07:40 Basophils % (Manual) 1.0 % (0.0-1.8) 10/03/20 07:40 Metamyelocytes % 1.0 % 10/03/20 07:40 Myelocytes % 1.0 % 10/03/20 07:40 Promyelocytes % 0 % 10/03/20 07:40 Blast Cells % 0 % 10/03/20 07:40 Nucleated RBC % 1.0 % (0.0-0.9) H 10/03/20 07:40 Seg Neutrophils # 9.5 K/mm3 (1.8-7.7) H 09/08/20 05:18 Seg Neutrophils # Man 13.6 K/mm3 (1.8-7.7) H 10/03/20 07:40 Band Neutrophils # 0.0 K/mm3 10/03/20 07:40 Lymphocytes # (Manual) 0.6 K/mm3 (1.2-5.4) L 10/03/20 07:40 Abs React Lymphs (Man) 0.0 K/mm3 10/03/20 07:40 Monocytes # (Manual) 0.2 K/mm3 (0.0-0.8) 10/03/20 07:40 Eosinophils # (Manual) 0.5 K/mm3 (0.0-0.4) H 10/03/20 07:40 Basophils # (Manual) 0.2 K/mm3 (0.0-0.1) H 10/03/20 07:40 Metamyelocytes # 0.2 K/mm3 10/03/20 07:40 Myelocytes # 0.2 K/mm3 10/03/20 07:40 Promyelocytes # 0.0 K/mm3 10/03/20 07:40 Blast Cells # 0.0 K/mm3 10/03/20 07:40 WBC Morphology Not Reportable 10/03/20 07:40 Hypersegmented Neuts Not Reportable 10/03/20 07:40 Hyposegmented Neuts Not Reportable 10/03/20 07:40 Hypogranular Neuts Not Reportable 10/03/20 07:40 Smudge Cells Not Reportable 10/03/20 07:40 Toxic Granulation Not Reportable 10/03/20 07:40 Toxic Vacuolation Not Reportable 10/03/20 07:40 Dohle Bodies Not Reportable 10/03/20 07:40 Pelger-Huet Anomaly Not Reportable 10/03/20 07:40 Ignacia Rods Not Reportable 10/03/20 07:40 Platelet Estimate Consistent w auto 10/03/20 07:40 Clumped Platelets Not Reportable 10/03/20 07:40 Plt Clumps, EDTA Not Reportable 10/03/20 07:40 Large Platelets Not Reportable 10/03/20 07:40 Giant Platelets Not Reportable 10/03/20 07:40 Platelet Satelliting Not Reportable 10/03/20 07:40 Plt Morphology Comment Not Reportable 10/03/20 07:40 RBC Morphology Not Reportable 10/03/20 07:40 Dimorphic RBCs Not Reportable 10/03/20 07:40 Polychromasia Not Reportable 10/03/20 07:40 Hypochromasia 1+ 10/03/20 07:40 Poikilocytosis 1+ 10/03/20 07:40 Anisocytosis 1+ 10/03/20 07:40 Microcytosis Not Reportable 10/03/20 07:40 Macrocytosis Not Reportable 10/03/20 07:40 Spherocytes Not Reportable 10/03/20 07:40 Pappenheimer Bodies Not Reportable 10/03/20 07:40 Sickle Cells Not Reportable 10/03/20 07:40 Target Cells Not Reportable 10/03/20 07:40 Tear Drop Cells Not Reportable 10/03/20 07:40 Ovalocytes Rare 10/03/20 07:40 Helmet Cells Not Reportable 10/03/20 07:40 Horvath-Tovey Bodies Not Reportable 10/03/20 07:40 Max Rings Not Reportable 10/03/20 07:40 Trego Cells 1+ 10/03/20 07:40 Bite Cells Not Reportable 10/03/20 07:40 Crenated Cell Not Reportable 10/03/20 07:40 Elliptocytes Rare 10/03/20 07:40 Acanthocytes (Spur) Few 10/03/20 07:40 Rouleaux Not Reportable 10/03/20 07:40 Hemoglobin C Crystals Not Reportable 10/03/20 07:40 Schistocytes Rare 10/03/20 07:40 Malaria parasites Not Reportable 10/03/20 07:40 Molina Bodies Not Reportable 10/03/20 07:40 Hem Pathologist Commnt No 10/03/20 07:40 PT 17.5 Sec. (12.2-14.9) H 09/29/20 06:25 INR 1.45 (0.87-1.13) H 09/29/20 06:25 APTT 29.2 Sec. (24.2-36.6) 09/02/20 13:52 D-Dimer 1076.18 ng/mlDDU (0-234) H 09/01/20 21:55 Heparin Anti-Xa Level 0.94 U.I./ml (0.3-0.7) H 09/03/20 05:17 ABG pH 7.441 (7.320-7.450) 09/21/20 03:25 POC ABG pCO2 28.2 mmHg (32.0-48.0) L 09/21/20 03:25 POC ABG pO2 112.5 mmHg (83-108) H 09/21/20 03:25 POC ABG HCO3 18.8 09/21/20 03:25 POC ABG Base Excess -4.5 09/21/20 03:25 ABG Hemoglobin 9.4 (12.0-17.5) L 09/21/20 03:25 ABG Sodium 136.3 mmol/L (136.0-145.0) 09/21/20 03:25 ABG Potassium 4.4 mmol/L (3.40-4.50) 09/21/20 03:25 ABG Chloride 110.0 mmol/L (98-107) H 09/21/20 03:25 ABG Glucose 163 mg/dL (65-95) H 09/21/20 03:25 FiO2 40.0 09/21/20 03:25 Sodium 141 mmol/L (137-145) 10/06/20 06:34 Potassium 5.7 mmol/L (3.6-5.0) H 10/06/20 06:34 Chloride 110.4 mmol/L (98-107) H 10/06/20 06:34 Carbon Dioxide 23 mmol/L (22-30) 10/06/20 06:34 Anion Gap 13 mmol/L 10/06/20 06:34 BUN 51 mg/dL (7-17) H 10/06/20 06:34 Creatinine 1.9 mg/dL (0.6-1.2) H 10/06/20 06:34 Estimated GFR 32 ml/min 10/06/20 06:34 BUN/Creatinine Ratio 27 % 10/06/20 06:34 Glucose 345 mg/dL (65-100) H 10/06/20 06:34 POC Glucose 178 mg/dL (70-105) H 10/05/20 23:40 Lactic Acid 0.60 mmol/L (0.7-2.0) L 09/02/20 08:10 Calcium 8.5 mg/dL (8.4-10.2) 10/06/20 06:34 Phosphorus 3.60 mg/dL (2.5-4.5) 09/25/20 15:25 Magnesium 2.20 mg/dL (1.7-2.3) 09/14/20 19:57 Iron 28 ug/dL (37-170) L 09/07/20 09:13 TIBC 188 mcg/dL (250-450) L 09/07/20 09:13 Ferritin 313.5 ng/mL (10.0-200.0) H 09/01/20 21:55 Total Bilirubin 0.70 mg/dL (0.1-1.2) 09/19/20 04:29 AST 29 units/L (5-40) 09/19/20 04:29 ALT 43 units/L (7-56) 09/19/20 04:29 Alkaline Phosphatase 185 units/L (35-129) H 09/19/20 04:29 Lactate Dehydrogenase 435 units/L (91-180) H 09/01/20 21:55 C-Reactive Protein 2.30 mg/dL (0.00-1.30) H 09/01/20 21:55 NT-Pro-B Natriuret Pep 04236 pg/mL (0-900) H 09/01/20 21:55 Serum Total Protein 4.3 g/dL (6.1-8.1) L 09/16/20 13:44 Total Protein 4.3 g/dL (6.3-8.2) L 09/19/20 04:29 Albumin 2.1 g/dL (3.9-5) L 09/19/20 04:29 Albumin/Globulin Ratio 1.0 % 09/19/20 04:29 Xtqlh-5-Cxnddekws 0.5 g/dL (0.2-0.3) H 09/16/20 13:44 Kolll-4-Mtzqitfpz 0.6 g/dL (0.5-0.9) 09/16/20 13:44 Beta Globulins 0.3 g/dL (0.2-0.5) 09/16/20 13:44 Gamma Globulins 0.8 g/dL (0.8-1.7) 09/16/20 13:44 Abnorm Protein Band 1 see below 09/16/20 13:44 PEP Interpretation see below H 09/16/20 13:44 Vitamin B12 843.2 pg/mL (211-911) 09/07/20 09:13 Procalcitonin 0.10 ng/mL (<0.15) 09/01/20 21:55 TSH 0.735 mlU/mL (0.270-4.200) 09/02/20 00:45 Free T4 0.92 ng/dL (0.76-1.46) 09/02/20 00:45 Free T4 0.94 ng/dL (0.76-1.46) 09/02/20 00:45 PTH Intact 820.4 pg/mL (15-65) H 09/04/20 05:18 Arterial Blood Glucose 163 mg/dL (65-95) H 09/21/20 03:25 Arterial Blood Ionized Calcium 4.7 mg/dL (4.6-5.3) 09/21/20 03:25 Urine Color Elena (Yellow) 09/02/20 03:44 Urine Turbidity Cloudy (Clear) 09/02/20 03:44 Urine pH 7.0 (5.0-7.0) 09/02/20 03:44 Ur Specific [place] 1.015 (1.003-1.030) 09/02/20 03:44 Urine Protein >500 mg/dL (Negative) 09/02/20 03:44 Urine Glucose (UA) Neg mg/dL (Negative) 09/02/20 03:44 Urine Ketones Neg mg/dL (Negative) 09/02/20 03:44 Urine Blood Neg (Negative) 09/02/20 03:44 Urine Nitrite Neg (Negative) 09/02/20 03:44 Urine Bilirubin Neg (Negative) 09/02/20 03:44 Urine Urobilinogen < 2.0 mg/dL (<2.0) 09/02/20 03:44 Ur Leukocyte Esterase Neg (Negative) 09/02/20 03:44 Urine WBC (Auto) < 1.0 /HPF (0.0-6.0) 09/02/20 03:44 Urine RBC (Auto) < 1.0 /HPF (0.0-6.0) 09/02/20 03:44 U Epithel Cells (Auto) < 1.0 /HPF (0-13.0) 09/02/20 03:44 Urine Bacteria (Auto) 2+ /HPF (Negative) 09/02/20 03:44 Urine Mucus Few /HPF 09/02/20 03:44 Urine Creatinine 43.2 mg/dL (0.1-20.0) H 09/06/20 06:52 Protein/Creatinin Ratio 6.90 09/06/20 06:52 Urine Sodium 84 mmol/L 09/06/20 06:52 Urine Total Protein 298 mg/dL (5-11.8) H 09/06/20 06:52 DEMARCUS Screen Negative (Negative) 09/17/20 00:10 Proteinase 3 (PR3) Ab <1.0 AI (<1.0) 09/17/20 00:10 Myeloperoxidase Ab <1.0 AI (<1.0) 09/17/20 00:10 Glomerular Base Mem IgG See scanned result 09/16/20 13:44 Complement C3 82 mg/dL (83-193) L 09/17/20 00:10 Complement C4 26 mg/dL (15-57) 09/17/20 00:10 C. difficile Tox (PCR) Negative (Negative) 09/02/20 13:05 Coronavirus (PCR) Negative (Negative) 09/30/20 Unknown SARS-CoV-2 IgG Ab Nonreactive (NonReactive) 09/02/20 08:10 Blood Type O POSITIVE 10/04/20 13:27 Antibody Screen Negative 10/04/20 13:27 Crossmatch See Detail 10/04/20 13:27 - Diagnostic Impressions Diagnostic Impressions: Echocardiogram 09/22/20 13:29 Transthoracic Echocardiogram Indication: Cardiopulmonary arrest BP: 175/66 HR: 71 Conclusions *4-chamber dilated cardiomyopathy. *Global left ventricular systolic function is mildly decreased. *The estimated ejection fraction is 40-45%. *Mild concentric left ventricular hypertrophy is observed. *There is mild to moderate mitral regurgitation. *There is mild to moderate tricuspid regurgitation. *There is moderately-severe pulmonary hypertension. *The right ventricular systolic pressure is calculated at 62 mmHg. *There is a minimial pericardial effusion. Findings Left Ventricle: The left ventricular chamber size is mildly dilated. Mild concentric left ventricular hypertrophy is observed. Global left ventricular systolic function is mildly decreased. The estimated ejection fraction is 40-45%. Left Atrium: The left atrium is moderately dilated. Right Ventricle: The right ventricle is mildly dilated. The right ventricular global systolic function is mildly reduced. Right Atrium: The right atrium is moderately dilated. Aortic Valve: The aortic valve is trileaflet. The aortic valve leaflets are moderately thickened. There is no evidence of aortic regurgitation. There is no evidence of aortic stenosis. Mitral Valve: The mitral valve leaflets are mildly thickened. There is mild to moderate mitral regurgitation. There is no evidence of mitral stenosis. Tricuspid Valve: The tricuspid valve leaflets are normal. There is mild to moderate tricuspid regurgitation. The right ventricular systolic pressure is calculated at 62 mmHg. There is evidence of severe pulmonary hypertension. Pulmonic Valve: There is mild pulmonic regurgitation. Pericardium: There is a minimial pericardial effusion. Aorta: There is no dilatation of the ascending aorta. There is no dilatation of the aortic root. Venous: The inferior vena cava is dilated. Measurements Chambers 2D Name Value Normal Range IVSd (2D) 1.17 cm (0.6 - 1.1) LVPWd (2D) 1.15 cm (0.6 - 1.1) IVS:LVPW ratio (2D) 1.02 ratio - LVIDd (2D) 5 cm (3.7 - 5.6) LVIDs (2D) 3.71 cm (2 - 3.8) LV FS (Teichholz) (2D) 25.8 % - LV FS (cube) (2D) 25.8 % - EF Teichholz (2D) 50.4 % - Ao root diameter (2D) 2.6 cm (2 - 3.7) LA dimension (AP) 2D 5.1 cm (1.9 - 4) LA:Ao ratio (2D) 1.96 ratio - Volumes/Mass Name Value Normal Range LA ESV SP 4CH (MOD) 49 ml - LA ESV SP 2CH (MOD) 96 ml - LA ESV BP (MOD) 69 ml - LA ESV BP (MOD) index 33.2 ml/m2 - Diastolic/Systolic Function Name Value Normal Range MV E-wave Vmax 1.21 m/sec - MV deceleration time 254 msec - MV A-wave Vmax 1.12 m/sec - MV E:A ratio 1.1 ratio - Aortic Valve Name Value Normal Range AV VTI 31.1 cm - AV mean gradient 4 mmHg - LVOT diameter 2 cm - LVOT VTI 19.4 cm - LVOT mean gradient 2 mmHg - Mitral Valve Name Value Normal Range MV Vmax 1.44 m/sec - MV VTI 35.9 cm - MV peak gradient 8 mmHg - MV mean gradient 5 mmHg - MR Vmax 5.52 m/sec - Tricuspid Valve Name Value Normal Range TR Vmax 3.52 m/sec - TR peak gradient 50 mmHg - RVSP 62 mmHg - [place]/IV: Voiding Method External Female Catheter IV Catheter Type [Left Upper PICC Line arm] IV Catheter Type [Right INT / Saline Lock Forearm] IV Catheter Type [Left INT / Saline Lock Antecubital] IV Catheter Type [Right Hand] INT / Saline Lock IV Catheter Type [Right Upper Mid-line arm] IV Catheter Type [Right INT / Saline Lock External Jugular] Active Medications - Current Medications Current Medications: Generic Name Dose Route Start Last Admin Trade Name Freq PRN Reason Stop Dose Admin Amlodipine Besylate 10 mg 09/21/20 12:00 10/06/20 09:05 Amlodipine PO 10 mg DAILY JAE Administration Lipase/Protease/Amylase 1 each 09/30/20 11:03 Pancreshannan Mora 10,500 Unit FEEDTUBE PRN PRN For Clogged Feeding Tube Calcitriol 0.5 mcg 09/05/20 13:00 10/06/20 09:05 Rocaltrol PO 0.5 mcg QDAY JAE Administration Clonidine HCl 0.1 mg 09/26/20 10:00 10/03/20 10:48 Catapres-Tts Patch TD 0.1 mg Sa JAE Administration Dextrose 50 ml 09/11/20 19:09 09/27/20 05:59 D50w (25gm) Syringe IV 50 ml Q30MIN PRN Administration Hypoglycemia Protocol Ferrous Sulfate 308 mg 09/21/20 10:00 10/06/20 09:06 Ferrous Sulfate FEEDTUBE 308 mg DAILY JAE Administration Haloperidol Lactate 5 mg 09/11/20 19:10 Haldol IM Q6H PRN Agitation Hydralazine HCl 10 mg 09/10/20 22:23 09/14/20 05:46 Apresoline IV 10 mg Q6H PRN Administration Blood Pressure Insulin Human Lispro 0 unit 09/19/20 12:00 10/06/20 07:00 Humalog SUB-Q 6 unit Q6HR JAE Administration Protocol Insulin Human Regular 10 unit 10/06/20 08:30 10/06/20 08:47 Humulin R IV 10/06/20 12:00 10 unit ONCE@0830 NR Administration Lansoprazole 30 mg 09/29/20 23:00 10/06/20 09:05 Prevacid Solutab FEEDTUBE 30 mg BID JAE Administration Loperamide HCl 2 mg 09/30/20 18:46 10/01/20 17:55 Imodium PO 2 mg Q2H PRN Administration Diarrhea Multivitamins 5 ml 09/18/20 10:00 10/06/20 09:05 Centrum Liq PO 5 ml QDAY JAE Administration Sertraline HCl 50 mg 09/02/20 10:00 10/06/20 09:05 Zoloft PO 50 mg DAILY JAE Administration Simple Syrup 15 ml 09/30/20 11:03 Simple Syrup FEEDTUBE PRN PRN Hypoglycemia Simple Syrup 30 ml 09/30/20 11:03 Simple Syrup FEEDTUBE PRN PRN Hypoglycemia Sodium Bicarbonate 325 mg 09/30/20 11:03 Sodium Bicarbonate FEEDTUBE PRN PRN For Clogged Feeding Tube Sodium Chloride 10 ml 09/02/20 10:00 10/06/20 09:06 Sodium Chloride Flush Syringe 10 Ml IV 10 ml BID JAE Administration Sodium Polystyrene Sulfonate 60 gm 10/06/20 08:30 10/06/20 08:46 Kionex PO 10/06/20 12:00 60 gm ONCE@0830 NR Administration Nutrition/Malnutrition Assess - Dietary Evaluation Nutrition/Malnutrition Findings: Nutrition Notes Start: 09/03/20 13:19 Freq: Status: Active Protocol: Document 10/02/20 13:16 AB (Rec: 10/02/20 13:23 AB [id number]) Co-Sign 10/02/20 13:16 MK Nutrition Notes Initial or Follow up Reassessment Current Diagnosis Acute Kidney Injury,CKD(stage I-IV),Diabetes,Sepsis Other Pertinent Diagnosis COVID-19 (+), pneu, anemia, bilat BKA, erosive esophagitis , sacral wound Current Diet Nepro 1.8 at 40 ml/hr Labs/Tests K 5.5 BUN 40 Cr 1.9 BG 227 Pertinent Medications Humalog Ferrous Sulfate Rocaltrol Height 5 ft 6 in Weight 103 kg [place] Body Weight (kg) 59.09 BMI 36.6 Weight Status Obese Subjective/Other Information F/U for TF tolerance. Per RN, pt is doing bolus feedings. Per RN, pt is waiting to be discharged d/t current TF regimen (Nepro w/ Carb Steady) being too expensive. 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 okay with Osmolite 1.5 with higher K. Percent of energy/protein needs met: 100%/100% Burn Absent Trauma Absent GI Symptoms None Difficulty In Swallowing Current % PO Negligible Minimum of two criteria No physical signs of malnutrition #2 Nutrition Diagnosis Increased nutrient needs ( specify in comment below) Comments: protein Diagnosis Progress(for reassessment Continues documentation) #1 Nutrition Diagnosis Inadequate oral intake Diagnosis Progress(for reassessment Continues documentation) Is patient on ventilator? No Is Patient Ambulatory and/or Out of Bed No REE-([place]-[facility]. Jeor-confined to bed) 1926.912 Kcal/Kg value to use for calculation 16 Approximate Energy Requirements Using 1648 kcal/Kg Calculation Used for Recommendations Kcal/kg Additional Notes Protein: 65-122g (0.8-1.5g/kg using AdjBW 81kg) Fluid: 1ml/kcal Nutrition Intervention Change Diet Order: Change TF Nutrition Support: Osmolite 1.5 at 50 ml/hr. Flush with 150 ml q4h Kcal 1,800 Protein (gm) 75 Fluid (mL) 914 Goal #1 Meet at least 80% of energy and protein needs via TF. Goal #2 TF tolerance Anticipated Discharge Needs: TF Follow-Up By: 10/06/20 Additional Comments F/U for TF tolerance
[2020-10-06 16:46] VITALS: BP 156/54
[2020-10-06] MEDS: DEXTROSE 50% IN WATER (25GM) 50 ML SYRINGE IV PRN (17:07)
== END 2020-10-06 18:15 | disposition home health service (06) | DRG 870 ==
LOC: ED 20:57 → IMCU 09-02 00:31 → 3A 09-02 18:13 → IMCU 09-02 18:17 → 3A 09-06 16:15 → CC1 09-17 10:48 → 3A 09-22 17:19
PROVIDERS: ADMIT Internal Medicine; ATTEND Internal Medicine
PROC: 30233N1 Transfusion of Nonautologous Red Blood Cells into Peripheral Vein, Percutaneous Approach (ICD-10-PCS; 2020-09-03)
PROC: 30233K1 Transfusion of Nonautologous Frozen Plasma into Peripheral Vein, Percutaneous Approach (ICD-10-PCS; 2020-09-04)
PROC: 0BH17EZ Insertion of Endotracheal Airway into Trachea, Via Natural or Artificial Opening (ICD-10-PCS; principal; 2020-09-17)
PROC: 5A1955Z Respiratory Ventilation, Greater than 96 Consecutive Hours (ICD-10-PCS; 2020-09-17)
PROC: 4A033R1 Measurement of Arterial Saturation, Peripheral, Percutaneous Approach (ICD-10-PCS; 2020-09-17)
PROC: 0DH63UZ Insertion of Feeding Device into Stomach, Percutaneous Approach (ICD-10-PCS; 2020-09-29)
PROC: 0W9B30Z Drainage of Left Pleural Cavity with Drainage Device, Percutaneous Approach (ICD-10-PCS; 2020-10-02)
DX: A41.89 Other specified sepsis (principal); U07.1 COVID-19; J12.89 Other viral pneumonia; N17.0 Acute kidney failure with tubular necrosis; G93.41 Metabolic encephalopathy; R65.21 Severe sepsis with septic shock; I46.9 Cardiac arrest, cause unspecified; Z79.4 Long term (current) use of insulin; Z79.82 Long term (current) use of aspirin; E11.649 Type 2 diabetes mellitus with hypoglycemia without coma; T68.XXXA Hypothermia, initial encounter; E11.51 Type 2 diabetes mellitus with diabetic peripheral angiopathy without gangrene; E87.2 Acidosis; F17.213 Nicotine dependence, cigarettes, with withdrawal; D69.6 Thrombocytopenia, unspecified; I12.9 Hypertensive chronic kidney disease with stage 1 through stage 4 chronic kidney disease, or unspecified chronic kidney disease; E11.22 Type 2 diabetes mellitus with diabetic chronic kidney disease; N18.9 Chronic kidney disease, unspecified; E87.5 Hyperkalemia; J90 Pleural effusion, not elsewhere classified; I82.423 Acute embolism and thrombosis of iliac vein, bilateral; I82.413 Acute embolism and thrombosis of femoral vein, bilateral; E66.9 Obesity, unspecified; Z68.32 Body mass index [BMI] 32.0-32.9, adult; K31.811 Angiodysplasia of stomach and duodenum with bleeding; D62 Acute posthemorrhagic anemia; J96.01 Acute respiratory failure with hypoxia; R04.0 Epistaxis; E87.0 Hyperosmolality and hypernatremia
CPT/HCPCS: 31500; 32555; 36415; 36600; 36620; 70450; 71045; 71275; 74018; 76770; 80048; 80053; 81001; 82140; 82270; 82570; 82607; 82728; 82805; 82947; 82962; 83520; 83550; 83615; 83735; 83880; 83970; 84100; 84132; 84145; 84156; 84165; 84300; 84439; 84443; 85007; 85014; 85018; 85025; 85027; 85049; 85379; 85520; 85610; 85730; 86021; 86038; 86140; 86160; 86334; 86850; 86900; 86901; 86920; 87040; 87070; 87205; 87493; 88112; 88305; 92950; 93005; 93306; 93970; 94002; 94003; 94760; G0378; A6250; C9113; J0171; J0360; J0456; J0690; J0692; J1100; J1170; J1644; J1815; J1940; J2405; J2704; J2920; J3010; J3370; J3430; J3475; J3486; J7030; J7040; J7050; J7070; P9016; P9017; Q9967; U0003